=== PATIENT | male | born 1965 | race African-American/Black ===

== ENCOUNTER 2016-11-05 12:57 | Inpatient (IN) | payer BC ==
[~2016-11-05] VITALS: Ht 177.8 cm; Wt 64.0 kg
[~2016-11-05 12:57] MED LIST: CHLO.12%30 SSP; CLIN150 PO
[2016-11-05 13:02] VITALS: BP 114/76; PULSE 134; RESP 24; TEMP 100; O2SAT 98
[2016-11-05] MEDS ORDERED: LAMI150 PO (13:32)
[2016-11-05] MEDS ORDERED: ZIAG300T3 PO (13:32)
[2016-11-05] MEDS ORDERED: [UNRECOGNIZED DRUG - CODE] PO (13:32)
[2016-11-05] MEDS ORDERED: SODIUM CHLOR 0.9% 1000 ML INJ 1,000 ML IV ONE ×2 (13:54)
[2016-11-05] MEDS ORDERED: SODIUM CHLOR 0.9% 1000 ML INJ 100 ML IV ONE (13:54)
[2016-11-05] MEDS ORDERED: VANCOMYCIN INJ 1,050 MG in SODIUM CHLOR 0.9% 250 ML INJ 250 ML IV ONE (14:00)
[2016-11-05] MEDS ORDERED: PIPERACIL-TAZO 3.375 GM PREMIX 50 ML IV ONE (14:00)
--- NOTE | 2016-11-05 14:47 | PD ---
HPI Chief Complaint: Abdominal Pain Time Seen by Provider: 13:50 Travel History International Travel<30 days: No Contact w/Intl Traveler<30days: No Traveled to known affect area: No History of Present Illness HPI This is a 50-year-old male who presents to the emergency department with a history of HIV who reports severe pain in his buttock area that's been going on for several weeks, constant, worsening, associated with some fevers and chills. He denies any abdominal pain. He says he takes his HIV medication sometimes but hasn't taken them recently. PFS Past Medical History Immune Disorder: Yes (HIV ) Past Surgical History Surgical History: No Previous Surgery Social History Alcohol Use: No Tobacco Use: No Substance Use: No Allergies-Medications (Allergen,Severity, Reaction): Coded Allergies: No Known Allergies (Unverified , 11/05/16) Reported Meds & Prescriptions Reported Meds & Active Scripts Active Reported Kaletra (Lopinavir-Ritonavir) 100-25 Mg Tab 1 Tab PO BID Epivir (Lamivudine) 150 Mg Tab 150 Mg PO BID *Fill this 5 day prescription first and begin taking Epivir 12 hours after the first dose received in the Emergency Department as prescribed.* Ziagen (Abacavir Sulfate) 300 Mg Tab 300 Mg PO BID Hazardous agent; use appropriate precautions for handling & disposal. Review of Systems Except as stated in HPI: all other systems reviewed are Neg Physical Exam Narrative GENERAL:Well appearing, no acute distress HEAD: Atraumatic. Normocephalic. EYES: Pupils equal and round. No injection or drainage. ENT: Moist mucous membranes NECK: Trachea midline. CARDIOVASCULAR: Regular rate and rhythm. No murmur appreciated. RESPIRATORY: Clear to auscultation. Breath sounds equal bilaterally. GASTROINTESTINAL: Abdomen soft, non-tender, nondistended. Perirectal area and buttock area covered in wounds with skin breakdown and foul-smelling purulent discharge. No focal tenderness or fluctuance with digital rectal exam. MUSCULOSKELETAL: No obvious deformities. NEUROLOGICAL: Awake and alert. No obvious cranial nerve deficits. Moving all extremities. PSYCHIATRIC: Appropriate mood and affect; insight and judgment normal. Data Data Last Documented VS Vital Signs Date Time Temp Pulse Resp B/P Pulse Ox O2 Delivery O2 Flow Rate FiO2 11/05/16 15:13 100.6 91 15 133/78 99 Room Air Orders Complete Blood Count With Diff (11/05/16 13:54) Comprehensive Metabolic Panel (11/05/16 13:54) Prothrombin Time / Inr (Pt) (11/05/16 13:54) Act Partial Throm Time (Ptt) (11/05/16 13:54) Lactic Acid Sepsis Protocol (11/05/16 13:54) Urinalysis - C+S If Indicated (11/05/16 13:54) Blood Culture (11/05/16 13:54) Blood Glucose (11/05/16 13:54) Ecg Monitoring (11/05/16 13:54) Iv Access Insert/Monitor (11/05/16 13:54) Oximetry (11/05/16 13:54) Oxygen Administration (11/05/16 13:54) Sodium Chlor 0.9% 1000 Ml Inj (Ns 1000 M (11/05/16 13:54) Sodium Chlor 0.9% 1000 Ml Inj (Ns 1000 M (11/05/16 13:54) Sodium Chlor 0.9% 1000 Ml Inj (Ns 1000 M (11/05/16 13:54) Vancomycin Inj (Vancomycin Inj) (11/05/16 14:00) Piperacil-Tazo 3.375 Gm Premix (Zosyn 3. (11/05/16 14:00) Acetaminophen (Tylenol) (11/05/16 15:45) Abacavir (Ziagen) (11/05/16 21:00) Lamivudine (Epivir) (11/05/16 21:00) Lopinavir-Ritonavir 200-50 Mg (Kaletra 2 (11/05/16 21:00) Admit Order (Ed Use Only) (11/05/16 15:55) Labs Laboratory Tests Test 11/05/16 14:20 White Blood Count 7.4 TH/MM3 Red Blood Count 3.08 MIL/MM3 Hemoglobin 8.8 GM/DL Hematocrit 26.4 % Mean Corpuscular Volume 85.7 FL Mean Corpuscular Hemoglobin 28.6 PG Mean Corpuscular Hemoglobin 33.4 % Concent Red Cell Distribution Width 14.6 % Platelet Count 283 TH/MM3 Mean Platelet Volume 7.7 FL Neutrophils (%) (Auto) 88.0 % Lymphocytes (%) (Auto) 1.7 % Monocytes (%) (Auto) 10.1 % Eosinophils (%) (Auto) 0.1 % Basophils (%) (Auto) 0.1 % Neutrophils # (Auto) 6.5 TH/MM3 Lymphocytes # (Auto) 0.1 TH/MM3 Monocytes # (Auto) 0.7 TH/MM3 Eosinophils # (Auto) 0.0 TH/MM3 Basophils # (Auto) 0.0 TH/MM3 CBC Comment AUTO DIFF Differential Total Cells 100 Counted Neutrophils % (Manual) 88 % Band Neutrophils % 4 % Monocytes % 7 % Eosinophils % 1 % Neutrophils # (Manual) 6.8 TH/MM3 Differential Comment FINAL DIFF MANUAL Platelet Estimate NORMAL Platelet Morphology Comment NORMAL Prothrombin Time 11.1 SEC Prothromb Time International 1.0 RATIO Ratio Activated Partial 32.0 SEC Thromboplast Time Sodium Level 134 MEQ/L Potassium Level 5.1 MEQ/L Chloride Level 100 MEQ/L Carbon Dioxide Level 21.9 MEQ/L Anion Gap 12 MEQ/L Blood Urea Nitrogen 64 MG/DL Creatinine 7.83 MG/DL Estimat Glomerular Filtration 9 ML/MIN Rate Random Glucose 118 MG/DL Lactic Acid Level 0.8 mmol/L Calcium Level 9.2 MG/DL Total Bilirubin 0.4 MG/DL Aspartate Amino Transf 26 U/L (AST/SGOT) Alanine Aminotransferase 20 U/L (ALT/SGPT) Alkaline Phosphatase 63 U/L Total Protein 7.9 GM/DL Albumin 2.8 GM/DL [facility] Medical Decision Making Medical Screen Exam Complete: Yes Emergency Medical Condition: Yes Interpretation(s) Febrile to 100.6 and tachycardic Anemic 88% neutrophils Renal insufficiency Lactic acid is 0.8 Differential Diagnosis Wound infection, cellulitis, sepsis, electrolyte abnormality, dehydration Narrative Course This is a 50-year-old male who presents to the emergency department with pain around his rectum and buttock area. He has impressive wounds on his buttocks and perirectal area with purulent malodorous discharge. I don't appreciate anything fluctuant, indurated or drainable. He was febrile on arrival and tachycardic. He was placed on a monitor and an IV was established. He was given 2 L of IV fluid. Labs are reassuring. He was covered with vancomycin and Zosyn for sepsis. His creatinine was found to be 7.8. His potassium is normal at 5.1. He will be admitted in the setting of sepsis and renal insufficiency. Physician Communication Physician Communication Discussed with Dr. Draper Diagnosis Primary Impression: Renal failure Qualified Code: N17.9 - Acute renal failure superimposed on chronic kidney disease, unspecified CKD stage, unspecified acute renal failure type Additional Impression: Sepsis Qualified Code: A41.9 - Sepsis, due to unspecified organism Admitting Information Admitting Physician Requests: it Sandra Jones MD Nov 05, 2016 14:47
[2016-11-05 15:01] LABS: AUTOMATED NEUTROPHIL # 6.5 TH/MM3 (1.8-7.7); BASOPHIL % 0.1 % (0.0-2.0); EOSINOPHIL % 0.1 % (0.0-4.0); HEMATOCRIT 26.4 % (39.0-51.0); LYMPH % 1.7 % (9.0-44.0); LYMPHOCYTE # 0.1 TH/MM3 (1.0-4.8); MEAN CELL VOLUME 85.7 FL (80.0-100.0); MEAN CORPUSCULAR HEMOGLOBIN 28.6 PG (27.0-34.0); MEAN CORPUSCULAR HGB CONC 33.4 % (32.0-36.0); MONO % 10.1 % (0.0-8.0); PLATELET COUNT 283 TH/MM3 (150-450); RED BLOOD COUNT 3.08 MIL/MM3 (4.50-5.90); RED CELL DISTRIBUTION WIDTH 14.6 % (11.6-17.2); WHITE BLOOD COUNT 7.4 TH/MM3 (4.0-11.0)
[2016-11-05 15:02] LABS: HEMO FLAGS AUTO DIFF
[2016-11-05 15:11] LABS: PROTHROMBIN TIME - PATIENT 11.1 SEC (9.8-11.6)
[2016-11-05 15:13] VITALS: BP 133/78; PULSE 91; RESP 15; TEMP 100.6; O2SAT 99
[2016-11-05 15:24] LABS: ALT (GPT) 20 U/L (12-78); ANION GAP 12 MEQ/L (5-15); AST (GOT) 26 U/L (15-37); BICARBONATE 21.9 MEQ/L (21.0-32.0); BLOOD UREA NITROGEN 64 MG/DL (7-18); CHLORIDE 100 MEQ/L (98-107); GLOMERULAR FILTRATION RATE 9 ML/MIN (>89); POTASSIUM 5.1 MEQ/L (3.5-5.1); SODIUM (NA) 134 MEQ/L (136-145)
[2016-11-05 15:25] LABS: ALKALINE PHOSPHATASE 63 U/L (45-117); TOTAL BILIRUBIN ADULT 0.4 MG/DL (0.2-1.0)
[2016-11-05 15:33] LABS: BANDS 4 % (0-6); EOSINOPHILS 1 % (0-4); NEUTROPHIL # MANUAL DIFF 6.8 TH/MM3 (1.8-7.7); PLATELET ESTIMATE SMEAR NORMAL (NORMAL); PLATELET MORPHOLOGY NORMAL (NORMAL); POLYS (SEG NEUTROPHILS) 88 % (16-70); SCAN/DIFF FINAL DIFF MANUAL; WBC DIFF SAMPLE 100
[2016-11-05] MEDS ORDERED: ACETAMINOPHEN 500 MG CPLT PO ONE (15:45)
[2016-11-05] MEDS ORDERED: SENNOSIDES 8.6 MG TAB PO PRN (16:15)
[2016-11-05] MEDS ORDERED: NALOXONE HCL 0.4 MG/ML AMP IV PRN (16:15)
[2016-11-05] MEDS ORDERED: MAGNESIUM HYDROXIDE SUSP 30 ML CUP PO PRN (16:15)
[2016-11-05] MEDS ORDERED: BISACODYL 10 MG SUPP RECTAL PRN (16:15)
[2016-11-05] MEDS ORDERED: ACETAMINOPHEN/HYDROcodone 325 MG/7.5 MG TAB PO PRN (16:15)
[2016-11-05] MEDS ORDERED: LACTULOSE SYRUP 20 GM/30 ML CUP PO PRN (16:15)
[2016-11-05] MEDS ORDERED: SODIUM CHLORIDE 0.9% FLUSH 10 ML FLUSH IV FLUSH PRN (16:15)
[2016-11-05] MEDS ORDERED: Vancomycin Consult Pharmacy 1 EA OTHER SCH (16:15)
--- NOTE | 2016-11-05 16:54 | HHI.HP ---
HPI Service [facility] Hospitalists Primary Care Physician Quan Valencia MD Admission Diagnosis sepsis, renal failure Diagnoses: Chief Complaint: Chills N/V Buttock wounds Travel History International Travel<30 Days: No Contact w/Intl Traveler <30 Da: No Traveled to Known Affected Are: No Sepsis Criteria SIRS Criteria (2 or more): Heart rate over 90, RR > 20 or PaCO2 < 32 Sepsis Criteria (SIRS+source): Infect source susp/known Severe Sepsis (+one): Organ Dysfunction Criteria Outcome: Meets severe sepsis criteria History of Present Illness This is a 50yo male with PMHX of HIV who follows with Dr. Samuels as outpatient last seen 6 months ago who admits to being noncompliant with his HIV medications for the past 2 months and presents to [facility] ED with complaints of severe buttock pain secondary to multiple buttocks and perirectal wounds for the past two months. Patient denies seeking any previous treatment. Patient is not the best historian. He denies any worsening of the wounds. When asked why he chose to come in today, patient states he was "just tired of it". He admits to decreased oral intake. He also reports low back pain yesterday that he thought might be attributable to another kidney stone. He denies any back pain presently. He endorses nausea with nonbilious, nonbloody emesis for the past 2-3 days. He denies any fevers but reports one episode of chills. He denies any chest pain or SOB. He denies any previous history of kidney problems. He denies any hematuria, dysuria, hesitancy, slow stream or incomplete emptying. He reports urinating 3 to 4 x during the day and the same at night. In the ED, he has a temp of 100.6. White count is normal. Lactic acid is 0.8. His creatinine is extremely elevated at 7.83. Review of Systems Except as stated in HPI: all other systems reviewed are Neg Past Family Social History Past Medical History HIV, noncompliant with medications for the past 2 months Kidney stones Past Surgical History Patient denies any previous surgical history Reported Medications Kaletra (Lopinavir-Ritonavir) 100-25 Mg Tab 1 Tab PO BID Epivir (Lamivudine) 150 Mg Tab 150 Mg PO BID *Fill this 5 day prescription first and begin taking Epivir 12 hours after the first dose received in the Emergency Department as prescribed.* Ziagen (Abacavir Sulfate) 300 Mg Tab 300 Mg PO BID Hazardous agent; use appropriate precautions for handling & disposal. BUT PATIENT REPORTS HE HAS NOT BEEN TAKING FOR PAST 2 MONTHS Allergies: Coded Allergies: No Known Allergies (Unverified , 11/05/16) Active Ordered Medications Current Medications Medications (Trade) Dose Ordered Sig/Nyla Route Start Time Stop Time Status Last Admin Pharmacy Profile Note 0 ml @ 0 mls/hr UNSCH OTHER 11/05/16 16:15 UNV Piperacillin Sod/ Tazobactam Sod 50 ml @ 100 mls/hr Q8H IV 11/05/16 16:15 UNV (NS 1000 ml Inj) 1,000 ml @ 125 mls/hr Q8H IV 11/05/16 16:02 UNV (NS Flush) 2 ml UNSCH PRN IV FLUSH 11/05/16 16:15 UNV (NS Flush) 2 ml BID IV FLUSH 11/05/16 21:00 UNV (Tylenol) 650 mg Q4H PRN PO 11/05/16 16:15 UNV (Zofran Inj) 4 mg Q6H PRN IVP 11/05/16 16:15 UNV (Heparin Inj) 5,000 units Q12H SQ 11/05/16 16:15 UNV (Narcan Inj) 0.4 mg UNSCH PRN IV 11/05/16 16:15 UNV (Dee-Colace) 1 tab BID PO 11/05/16 21:00 UNV (Milk Of Magnesia Liq) 30 ml Q12H PRN PO 11/05/16 16:15 UNV (Senokot) 17.2 mg Q12H PRN PO 11/05/16 16:15 UNV (Dulcolax Supp) 10 mg DAILY PRN RECTAL 11/05/16 16:15 UNV (Lactulose Liq) 30 ml DAILY PRN PO 11/05/16 16:15 UNV (Endeavor 7.5-325 Mg) 1 tab Q4H PRN PO 11/05/16 16:15 UNV Family History Mother, CKD, DM Social History Patient denies any tobacco use, alcohol consumption or illicit drug use. Physical Exam Vital Signs Vital Signs Date Time Temp Pulse Resp B/P Pulse Ox O2 Delivery O2 Flow Rate FiO2 11/05/16 15:13 100.6 91 15 133/78 99 Room Air 11/05/16 15:13 99 Room Air 11/05/16 13:02 100.0 134 24 114/76 98 Room Air Physical Exam GENERAL: This is a well-nourished, well-developed patient, in no apparent distress. Awake and alert. SKIN: (+)multiple shallow areas of skin breakdown on the buttocks and dee- rectal area with foul smelling purulent discharge. No fluctuance noted on examination. HEAD: Atraumatic. Normocephalic. No temporal or scalp tenderness. EYES: Pupils equal round and reactive. Extraocular motions intact. No scleral icterus. No injection or drainage. ENT: Nose without bleeding, purulent drainage. (+)Oral thrush. Airway patent. NECK: Trachea midline. No JVD or lymphadenopathy. Supple, nontender, no meningeal signs. CARDIOVASCULAR: Regular rate and rhythm without murmurs, gallops, or rubs. RESPIRATORY: Clear to auscultation. Breath sounds equal bilaterally. No wheezes , rales, or rhonchi. GASTROINTESTINAL: Abdomen soft, non-tender, nondistended. No hepato-splenomegaly , or palpable masses. No guarding. (+)CVAT MUSCULOSKELETAL: Extremities without clubbing, cyanosis, or edema. No joint tenderness, effusion, or edema noted. No calf tenderness. NEUROLOGICAL: Awake and alert. Able to move all extremities. No focal neurologic finding appreciated. Normal speech. Laboratory Laboratory Tests Test 11/05/16 14:20 White Blood Count 7.4 Red Blood Count 3.08 Hemoglobin 8.8 Hematocrit 26.4 Mean Corpuscular Volume 85.7 Mean Corpuscular Hemoglobin 28.6 Mean Corpuscular Hemoglobin 33.4 Concent Red Cell Distribution Width 14.6 Platelet Count 283 Mean Platelet Volume 7.7 Neutrophils (%) (Auto) 88.0 Lymphocytes (%) (Auto) 1.7 Monocytes (%) (Auto) 10.1 Eosinophils (%) (Auto) 0.1 Basophils (%) (Auto) 0.1 Neutrophils # (Auto) 6.5 Lymphocytes # (Auto) 0.1 Monocytes # (Auto) 0.7 Eosinophils # (Auto) 0.0 Basophils # (Auto) 0.0 CBC Comment AUTO DIFF Differential Total Cells 100 Counted Neutrophils % (Manual) 88 Band Neutrophils % 4 Monocytes % 7 Eosinophils % 1 Neutrophils # (Manual) 6.8 Differential Comment FINAL DIFF MANUAL Platelet Estimate NORMAL Platelet Morphology Comment NORMAL Prothrombin Time 11.1 Prothromb Time International 1.0 Ratio Activated Partial 32.0 Thromboplast Time Sodium Level 134 Potassium Level 5.1 Chloride Level 100 Carbon Dioxide Level 21.9 Anion Gap 12 Blood Urea Nitrogen 64 Creatinine 7.83 Estimat Glomerular Filtration 9 Rate Random Glucose 118 Lactic Acid Level 0.8 Calcium Level 9.2 Total Bilirubin 0.4 Aspartate Amino Transf 26 (AST/SGOT) Alanine Aminotransferase 20 (ALT/SGPT) Alkaline Phosphatase 63 Total Protein 7.9 Albumin 2.8 Date/Time Procedure Status Source Growth 11/05/16 14:22 Aerobic Blood Culture Received Blood Peripheral Pending 11/05/16 14:22 Anaerobic Blood Culture Received Blood Peripheral Pending Result Diagram: 11/05/16 1420 11/05/16 1420 Assessment and Plan Assessment and Plan 50yo male with PMHX of HIV who follows with Dr. Samuels as outpatient last seen 6 months ago who admits to being noncompliant with his HIV medications for the past 2 months and presents to [facility] ED with complaints of severe buttock pain secondary to multiple buttock and perirectal wounds for the past two months. Severe sepsis secondary to buttock and perirectal wounds: Patient met sepsis criteria with tachycardia HR 134, respiration of 24 and acute kidney failure with creatinine of 7.83. + Immunocompromised, h/o HIV previously on HAART but noncompliant for the past two months IV Vancomycin and IV Zosyn IVF follow up on wound cultures follow up on blood culture results ARF creatinine 7.83, BUN 64 possibly pre-renal due to dehydration/hypovolemia vs obstructive h/o kidney stones with complaints of N/V and back pain - obtain CT abd/pelvis r/ o obstructive nephrolithiasis aggressive IV fluids avoid nephrotoxic agents Strict I&Os repeat BMP in am obtain UA Renal US ordered Consider nephrology consultation if patient fails to improve Buttock and dee-rectal wounds IV treatment as above Consult wound care Await wound culture results pain management obtain HgbA1c HIV patient admits to being noncompliant with his meds for the past 2 mos. Will not resume at this time. obtain CD4 count patient will need to follow up dimitri ID as outpatient Oral candidiasis Nystatin s/s Anemia, normocytic, normochromic hemoglobin 8.8, hematocrit 26.4 likely due to kidney dz am labs to monitor DVT prophylaxis Heparin sq Discussed with patient and Dr. Draper The exam, history, and the medical decision-making described in the above note were completed with the assistance of the mid-level provider. I reviewed and agree with the findings presented. I attest that I had a [id number] encounter with the patient on the same day, and personally performed and documented my assessment and findings in the medical record. Discussed with PA, ER physician and Patient. Discussed Condition With Patient, PA and ER Physician. Physician Certification 2 Midnight Certification Type: Admission for Inpatient Services Order for Inpatient Services The services are ordered in accordance with Medicare regulations or non- Medicare payer requirements, as applicable. In the case of services not specified as inpatient-only, they are appropriately provided as inpatient services in accordance with the 2-midnight benchmark. Estimated LOS (days): 3 3 days is the estimated time the patient will need to remain in the hospital, assuming treatment plan goals are met and no additional complications. Post-Hospital Plan: Not yet determined Zaria Neely Nov 05, 2016 16:54 Ze Chan MD Nov 05, 2016 17:23
[2016-11-05 17:07] LABS: BACTERIA, URINE MANY /hpf; BLOOD, URINE MOD (NEG); GLUCOSE,URINE NEG (NEG); KETONE, URINE NEG (NEG); MUCUS URINE FEW /lpf (OCC); NITRITE,URINE NEG (NEG); SQUAMOUS EPITHELIAL CELL URINE 1 /hpf (0-5); URINE COLOR YELLOW (YELLW/STRAW)
[2016-11-05 17:08] LABS: COMMENT (UR) CATH-CULTURE IND; CULTURE IF INDICATED CATH CULTURE IND
--- NOTE | 2016-11-05 17:21 | RADRPT ---
EXAM DATE/TIME: 11/05/2016 17:07 [facility] COMPARISON: No previous studies available for comparison. INDICATIONS : Patient states abcess on lower back, complains of pain. MEDICAL HISTORY : Renal failure, chronic. SURGICAL HISTORY : None. ENCOUNTER: Initial ACUITY: 2 weeks PAIN SCORE: 10/10 LOCATION: Bilateral chest FINDINGS: PA and lateral views of the chest. There is patchy opacity in the upper lung on the lateral view. 11 mm nodular density in the left lower lung laterally. Cardiomediastinal silhouette within normal limit s. No evidence of pleural effusion or pneumothorax. CONCLUSION: 1. Patchy consolidation versus atelectasis in the upper lung zone on the lateral view. 2. 1 cm nodular density in the left lower lung zone on the PA view only. Recommend noncontrast chest CT to evaluate for pulmonary nodule. Dorian Murry MD on November 05, 2016 at 17:17 Board Certified Radiologist. This report was verified electronically.
[2016-11-05] MEDS: HEPARIN SODIUM - SQ 10,000 UNITS/ML VIAL SQ SCH (17:31)
--- NOTE | 2016-11-05 17:40 | RADRPT ---
EXAM DATE/TIME: 11/05/2016 17:19 [facility] COMPARISON: No previous studies available for comparison. INDICATIONS : Abdominal pain for one month. ORAL CONTRAST: No oral contrast ingested. RADIATION DOSE: 5.05 CTDIvol (mGy) MEDICAL HISTORY : HIV. Renal failure, chronic. SURGICAL HISTORY : None. ENCOUNTER: Initial ACUITY: 1 month PAIN SCALE: 7/10 LOCATION: Bilateral abdomen. TECHNIQUE: Volumetric scanning of the abdomen and pelvis was performed. Using automated exposure control and ad justment of the mA and/or kV according to patient size, radiation dose was kept as low as reasonably achievable to obtain optimal diagnostic quality images. DICOM format image data is available electro nically for review and comparison. FINDINGS: LOWER LUNGS: Atelectasis right lung base. LIVER: 3.7 cm irregularly shaped hypodensity in the right lobe of the liver near the dome of the diaphragm. Liver is otherwise homogeneous and within normal limits. Gallbladder is within normal limits. SPLEEN: Normal size without lesion. PANCREAS: Within normal limits. KIDNEYS: 4 mm calculus in the right renal pelvis. Mild stranding in the fat adjacent to the right renal pelvis and mid right kidney. No evidence of hydronephrosis. 1.2 cm round hypodensity in the anterior midpol e of the right kidney.Left kidney within normal limits. ADRENAL GLANDS: Within normal limits. VASCULAR: Mildly dilated right common iliac artery measuring 1.6 cm. BOWEL/MESENTERY: No evidence of bowel dilatation. No free air or free fluid. Appendix within normal limits. ABDOMINAL WALL: Within normal limits. RETROPERITONEUM: There is no lymphadenopathy. BLADDER: No wall thickening or mass. REPRODUCTIVE: Within normal limits. INGUINAL: There is no lymphadenopathy or hernia. MUSCULOSKELETAL: Within normal limits for patient age. CONCLUSION: 1. 4 mm calculus in the right renal pelvis/ureteropelvic junction with mild adjacent perinephric/peter ureteral stranding. No evidence of hydronephrosis. 2. 1 cm round hypodensity in the anterior right mid kidney statistically most likely to represent a c yst. 3. 3.7 cm hypodensity in the right lobe of the liver air the dome of the diaphragm. This finding is n onspecific on noncontrast CT. The most likely etiologies include hemangioma and cyst. It could be fur ther evaluated with ultrasound nonemergent followup MRI of the abdomen. 4. Mild dilated proximal right common iliac artery. Dorian Murry MD on November 05, 2016 at 17:29 Board Certified Radiologist. This report was verified electronically.
[2016-11-05 18:00] VITALS: BP 143/77; PULSE 79; RESP 18; TEMP 98.4; O2SAT 100
[2016-11-05] MEDS: NYSTATIN SUSP 500,000 U/5 ML CUP SWISH-SWAL SCH ×2 (18:37→20:05)
[2016-11-05] MEDS: SODIUM CHLOR 0.9% 1000 ML INJ 1,000 ML IV SCH (18:37)
--- NOTE | 2016-11-05 19:59 | RADRPT ---
EXAM DATE/TIME: 11/05/2016 19:17 [facility] COMPARISON: No previous studies available for comparison. INDICATIONS : Increased BUN/Creatinine. MEDICAL HISTORY : HIV. Wounds on buttocks. SURGICAL HISTORY : None. ENCOUNTER: Initial ACUITY: 1 day PAIN SCORE: 7/10 LOCATION: Bilateral flank MEASUREMENTS: RIGHT KIDNEY: 10.2 x 6.3 x 5.9 cm LEFT KIDNEY: 9.6 x 6.2 x 5.7 cm FINDINGS: RIGHT KIDNEY: Diffusely echogenic cortex indicating medical renal disease. 1.2 cm simple cyst in the midpole. No ev idence of hydronephrosis. LEFT KIDNEY: Diffusely echogenic cortex indicating medical renal disease. No evidence of hydronephrosis. BLADDER: Within normal limits given the degree of distension. CONCLUSION: Diffusely echogenic kidneys indicating medical renal disease. Dorian Murry MD on November 05, 2016 at 19:57 Board Certified Radiologist. This report was verified electronically.
[2016-11-05 20:00] VITALS: BP 134/82; PULSE 72; PULSE 78; RESP 16; TEMP 97.9; O2SAT 100
[2016-11-05] MEDS: SODIUM CHLORIDE 0.9% FLUSH 10 ML FLUSH IV FLUSH SCH (20:05)
[2016-11-05] MEDS: DOCUSATE SODIUM 50 MG/SENNA 8.6 MG TAB PO SCH (20:05)
[2016-11-05 20:16] LABS: FREE T4 1.39 NG/DL (0.76-1.46); HDL CHOLESTEROL 37.4 MG/DL (40.0-60.0)
[2016-11-05] MEDS ORDERED: LOPINAVIR/RITONAVIR 200 MG/50 MG TAB PO SCH (21:00)
[2016-11-05] MEDS ORDERED: ABACAVIR SULFATE 300 MG TAB PO SCH (21:00)
[2016-11-05] MEDS: PIPERACIL-TAZO 2.25 GM PREMIX 50 ML IV SCH (23:11)
[2016-11-06] VITALS (8 sets, daily range): BP systolic 122–138; BP diastolic 67–88; PULSE 71–105; RESP 16–18; TEMP 98.2–100.2; O2SAT 99–100
[2016-11-06] MEDS: SODIUM CHLOR 0.9% 1000 ML INJ 1,000 ML IV SCH ×3 (01:54→21:37)
[2016-11-06] MEDS: HEPARIN SODIUM - SQ 10,000 UNITS/ML VIAL SQ SCH ×2 (05:13→16:42)
[2016-11-06] MEDS: DOCUSATE SODIUM 50 MG/SENNA 8.6 MG TAB PO SCH ×2 (09:00→21:00)
[2016-11-06] MEDS: SODIUM CHLORIDE 0.9% FLUSH 10 ML FLUSH IV FLUSH SCH ×2 (09:00→21:36)
[2016-11-06] MEDS: NYSTATIN SUSP 500,000 U/5 ML CUP SWISH-SWAL SCH ×5 (09:08→21:36)
[2016-11-06] MEDS: PIPERACIL-TAZO 2.25 GM PREMIX 50 ML IV SCH ×3 (09:10→21:36)
[2016-11-06 09:52] LABS: AUTOMATED NEUTROPHIL # 4.8 TH/MM3 (1.8-7.7); BASOPHIL % 0.6 % (0.0-2.0); EOSINOPHIL % 0.3 % (0.0-4.0); HEMATOCRIT 22.3 % (39.0-51.0); LYMPH % 2.1 % (9.0-44.0); LYMPHOCYTE # 0.1 TH/MM3 (1.0-4.8); MEAN CELL VOLUME 85.3 FL (80.0-100.0); MEAN CORPUSCULAR HEMOGLOBIN 28.9 PG (27.0-34.0); MEAN CORPUSCULAR HGB CONC 33.9 % (32.0-36.0); MONO % 10.6 % (0.0-8.0); NEUT % 86.4 % (16.0-70.0); PLATELET COUNT 209 TH/MM3 (150-450); RED BLOOD COUNT 2.61 MIL/MM3 (4.50-5.90); RED CELL DISTRIBUTION WIDTH 14.6 % (11.6-17.2); WHITE BLOOD COUNT 5.5 TH/MM3 (4.0-11.0)
[2016-11-06 10:13] LABS: HEMOGLOBIN A1a 1.5 %; HEMOGLOBIN Ao 81.4 %; HEMOGLOBIN F 1.5 %; HEMOGLOBIN LA1C 2.4 %
[2016-11-06 10:13] LABS: ALT (GPT) 13 U/L (12-78); ANION GAP 10 MEQ/L (5-15); AST (GOT) 23 U/L (15-37); BICARBONATE 17.9 MEQ/L (21.0-32.0); BLOOD UREA NITROGEN 58 MG/DL (7-18); CHLORIDE 109 MEQ/L (98-107); GLOMERULAR FILTRATION RATE 10 ML/MIN (>89); HEMO FLAGS AUTO DIFF; POTASSIUM 4.8 MEQ/L (3.5-5.1); SODIUM (NA) 137 MEQ/L (136-145)
[2016-11-06 10:14] LABS: ALKALINE PHOSPHATASE 46 U/L (45-117); TOTAL BILIRUBIN ADULT 0.3 MG/DL (0.2-1.0)
[2016-11-06 10:42] LABS: BANDS 20 % (0-6); OVALOCYTES 1+ (NORMAL); PLATELET ESTIMATE SMEAR NORMAL (NORMAL); PLATELET MORPHOLOGY NORMAL (NORMAL); POLYS (SEG NEUTROPHILS) 70 % (16-70); SCAN/DIFF FINAL DIFF MANUAL; WBC DIFF SAMPLE 100
--- NOTE | 2016-11-06 12:28 | HHI.PR ---
Subjective Remarks This is a 50yo male with PMHX of HIV who follows with Dr. Samuels as outpatient last seen 6 months ago who admits to being noncompliant with his HIV medications for the past 2 months and presents to [facility] ED with complaints of severe buttock pain secondary to multiple buttocks and perirectal wounds for the past two months. Patient denies seeking any previous treatment. Patient is not the best historian. He denies any worsening of the wounds. When asked why he chose to come in today, patient states he was "just tired of it". He admits to decreased oral intake. He also reports low back pain yesterday that he thought might be attributable to another kidney stone. He denies any back pain presently. He endorses nausea with nonbilious, nonbloody emesis for the past 2-3 days. He denies any fevers but reports one episode of chills. He denies any chest pain or SOB. He denies any previous history of kidney problems. He denies any hematuria, dysuria, hesitancy, slow stream or incomplete emptying. He reports urinating 3 to 4 x during the day and the same at night. In the ED, he has a temp of 100.6. White count is normal. Lactic acid is 0.8. His creatinine is extremely elevated at 7.83. 11/06: Seen in his bedroom, mild improvement in renal function consulted nephrology specialist, no nausea, vomit or diarrhea. Objective Vital Signs Date Time Temp Pulse Resp B/P Pulse Ox O2 Delivery O2 Flow Rate FiO2 11/06/16 12:00 98.6 83 18 122/67 100 11/06/16 08:15 77 11/06/16 08:00 99.1 82 18 137/83 100 11/06/16 07:15 Room Air 11/06/16 04:00 Room Air 11/06/16 04:00 99.7 98 18 134/80 99 11/06/16 00:00 98.2 71 16 137/88 100 11/06/16 00:00 Room Air 11/05/16 20:00 Room Air 11/05/16 20:00 78 11/05/16 20:00 97.9 72 16 134/82 100 11/05/16 18:00 98.4 79 18 143/77 100 11/05/16 15:13 100.6 91 15 133/78 99 Room Air 11/05/16 15:13 99 Room Air 11/05/16 13:02 100.0 134 24 114/76 98 Room Air I/O 11/05/16 11/05/16 11/05/16 11/06/16 11/06/16 11/06/16 07:00 15:00 23:00 07:00 15:00 23:00 Intake Total 3490 ml 1240 ml Output Total 400 ml 600 ml Balance 3090 ml 640 ml Intake Oral 240 ml 240 ml IV Total 3250 ml 1000 ml Output Urine Total 400 ml 600 ml # Bowel Movements 0 0 Result Diagram: 11/06/16 0730 11/06/16 0730 Imaging Last Impressions Renal Ultrasound 11/05/16 0000 Signed Impressions: Service Date/Time: Saturday, November 05, 2016 19:17 - CONCLUSION: Diffusely echogenic kidneys indicating medical renal disease. Dorian Murry MD Chest X-Ray 11/05/16 0000 Signed Impressions: Service Date/Time: Saturday, November 05, 2016 17:07 - CONCLUSION: 1. Patchy consolidation versus atelectasis in the upper lung zone on the lateral view. 2. 1 cm nodular density in the left lower lung zone on the PA view only. Recommend noncontrast chest CT to evaluate for pulmonary nodule. Dorian Murry MD Abdomen/Pelvis CT 11/05/16 0000 Signed Impressions: Service Date/Time: Saturday, November 05, 2016 17:19 - CONCLUSION: 1. 4 mm calculus in the right renal pelvis/ureteropelvic junction with mild adjacent perinephric/periureteral stranding. No evidence of hydronephrosis. 2. 1 cm round hypodensity in the anterior right mid kidney statistically most likely to represent a cyst. 3. 3.7 cm hypodensity in the right lobe of the liver air the dome of the diaphragm. This finding is nonspecific on noncontrast CT. The most likely etiologies include hemangioma and cyst. It could be further evaluated with ultrasound nonemergent followup MRI of the abdomen. 4. Mild dilated proximal right common iliac artery. Dorian Murry MD Procedures None Other Results Laboratory Tests Test 11/05/16 11/05/16 11/06/16 14:20 16:35 07:30 Eosinophils % 1 % Prothrombin Time 11.1 SEC Prothromb Time International 1.0 RATIO Ratio Activated Partial 32.0 SEC Thromboplast Time Lactic Acid Level 0.8 mmol/L Triglycerides Level 189 MG/DL Cholesterol Level 190 MG/DL LDL Cholesterol 115 MG/DL HDL Cholesterol 37.4 MG/DL Cholesterol/HDL Ratio 5.08 RATIO Free Thyroxine 1.39 NG/DL Thyroid Stimulating Hormone 0.931 uIU/ML 3rd Gen Hemoglobin A1c 6.2 % Urine Color YELLOW Urine Turbidity HAZY Urine pH 6.0 Urine Specific [place] 1.014 Urine Protein 300 mg/dL Urine Glucose (UA) NEG mg/dL Urine Ketones NEG mg/dL Urine Occult Blood MOD Urine Nitrite NEG Urine Bilirubin NEG Urine Urobilinogen LESS THAN 2.0 MG/DL Urine Leukocyte Esterase LARGE Urine RBC 14 /hpf Urine WBC /hpf Urine Squamous Epithelial 1 /hpf Cells Urine Amorphous Sediment RARE Urine Bacteria MANY /hpf Urine Mucus FEW /lpf Microscopic Urinalysis Comment CATH-CULTURE IND White Blood Count 5.5 TH/MM3 Red Blood Count 2.61 MIL/MM3 Hemoglobin 7.6 GM/DL Hematocrit 22.3 % Mean Corpuscular Volume 85.3 FL Mean Corpuscular Hemoglobin 28.9 PG Mean Corpuscular Hemoglobin 33.9 % Concent Red Cell Distribution Width 14.6 % Platelet Count 209 TH/MM3 Mean Platelet Volume 8.3 FL Neutrophils (%) (Auto) 86.4 % Lymphocytes (%) (Auto) 2.1 % Monocytes (%) (Auto) 10.6 % Eosinophils (%) (Auto) 0.3 % Basophils (%) (Auto) 0.6 % Neutrophils # (Auto) 4.8 TH/MM3 Lymphocytes # (Auto) 0.1 TH/MM3 Monocytes # (Auto) 0.6 TH/MM3 Eosinophils # (Auto) 0.0 TH/MM3 Basophils # (Auto) 0.0 TH/MM3 CBC Comment AUTO DIFF Differential Total Cells 100 Counted Neutrophils % (Manual) 70 % Band Neutrophils % 20 % Lymphocytes % 2 % Monocytes % 8 % Neutrophils # (Manual) 5.0 TH/MM3 Differential Comment FINAL DIFF MANUAL Platelet Estimate NORMAL Platelet Morphology Comment NORMAL Ovalocytes 1+ Sodium Level 137 MEQ/L Potassium Level 4.8 MEQ/L Chloride Level 109 MEQ/L Carbon Dioxide Level 17.9 MEQ/L Anion Gap 10 MEQ/L Blood Urea Nitrogen 58 MG/DL Creatinine 7.16 MG/DL Estimat Glomerular Filtration 10 ML/MIN Rate Random Glucose 87 MG/DL Calcium Level 8.1 MG/DL Total Bilirubin 0.3 MG/DL Aspartate Amino Transf 23 U/L (AST/SGOT) Alanine Aminotransferase 13 U/L (ALT/SGPT) Alkaline Phosphatase 46 U/L Total Protein 6.0 GM/DL Albumin 2.1 GM/DL Objective Remarks GENERAL: This is a well-nourished, well-developed patient, in no apparent distress. Awake and alert. SKIN: (+)multiple shallow areas of skin breakdown on the buttocks and dee- rectal area with foul smelling purulent discharge. No fluctuance noted on examination. HEAD: Atraumatic. Normocephalic. No temporal or scalp tenderness. EYES: Pupils equal round and reactive. Extraocular motions intact. No scleral icterus. No injection or drainage. ENT: Nose without bleeding, purulent drainage. (+)Oral thrush. Airway patent. NECK: Trachea midline. No JVD or lymphadenopathy. Supple, nontender, no meningeal signs. CARDIOVASCULAR: Regular rate and rhythm without murmurs, gallops, or rubs. RESPIRATORY: Clear to auscultation. Breath sounds equal bilaterally. No wheezes , rales, or rhonchi. GASTROINTESTINAL: Abdomen soft, non-tender, nondistended. No hepato-splenomegaly , or palpable masses. No guarding. (+)CVAT MUSCULOSKELETAL: Extremities without clubbing, cyanosis, or edema. No joint tenderness, effusion, or edema noted. No calf tenderness. NEUROLOGICAL: Awake and alert. Able to move all extremities. No focal neurologic finding appreciated. Normal speech. Medications and IVs Current Medications Medications (Trade) Dose Ordered Sig/Nyla Route Start Time Stop Time Status Last Admin Pharmacy Profile Note 0 ml @ 0 mls/hr UNSCH OTHER 11/05/16 16:15 Piperacillin Sod/ Tazobactam Sod 50 ml @ 100 mls/hr Q8H IV 11/06/16 00:00 11/06/16 09:10 (NS 1000 ml Inj) 1,000 ml @ 125 mls/hr Q8H IV 11/05/16 17:00 11/06/16 01:54 (NS Flush) 2 ml UNSCH PRN IV FLUSH 11/05/16 16:15 (NS Flush) 2 ml BID IV FLUSH 11/05/16 21:00 11/05/16 20:05 (Tylenol) 650 mg Q4H PRN PO 11/05/16 16:15 (Zofran Inj) 4 mg Q6H PRN IVP 11/05/16 16:15 (Heparin Inj) 5,000 units Q12H SQ 11/05/16 17:00 11/06/16 05:13 (Narcan Inj) 0.4 mg UNSCH PRN IV 11/05/16 16:15 (Dee-Colace) 1 tab BID PO 11/05/16 21:00 11/05/16 20:05 (Milk Of Magnesia Liq) 30 ml Q12H PRN PO 11/05/16 16:15 (Senokot) 17.2 mg Q12H PRN PO 11/05/16 16:15 (Dulcolax Supp) 10 mg DAILY PRN RECTAL 11/05/16 16:15 (Lactulose Liq) 30 ml DAILY PRN PO 11/05/16 16:15 (Steen 7.5-325 Mg) 1 tab Q4H PRN PO 11/05/16 16:15 (Mycostatin Liq) 5 ml QID SWISH-SWAL 11/05/16 18:00 11/06/16 09:08 A/P Assessment and Plan 50yo male with PMHX of HIV who follows with Dr. Samuels as outpatient last seen 6 months ago who admits to being noncompliant with his HIV medications for the past 2 months and presents to [facility] ED with complaints of severe buttock pain secondary to multiple buttock and perirectal wounds for the past two months. Severe sepsis secondary to buttock and perirectal wounds: Patient met sepsis criteria with tachycardia HR 134, respiration of 24 and acute kidney failure with creatinine of 7.83. + Immunocompromised, h/o HIV previously on HAART but noncompliant for the past two months IV Vancomycin and IV Zosyn Evidence of UTI on Urinalysis. blood culture and urine culture negative so far. ARF creatinine 7.83, Mild improvement to 7.16. he has history of Kidney stones. CT abd/pelvis r/o obstructive nephrolithiasis, continue IV fluids and avoid Nephrotoxic agents. Consulted Nephrology specialist, once stable Nephrology consider to get MRI or CT angiogram to evaluate the lesion in the right Kidney, Buttock and dee-rectal wounds IV treatment as above Consult wound care Await wound culture results pain management obtain HgbA1c HIV patient admits to being noncompliant with his meds for the past 2 mos. Will not resume at this time. obtain CD4 count patient will need to follow up with ID as outpatient Oral candidiasis Nystatin s/s Anemia, normocytic, normochromic hemoglobin 8.8, hematocrit 26.4 likely due to kidney dz am labs to monitor DVT prophylaxis Heparin sq Continue present care discussed with patient in the room. Discharge Planning Expected in the next two days. Ze Chan MD Nov 06, 2016 12:28 Ze Chan MD Nov 06, 2016 12:28
--- NOTE | 2016-11-06 15:24 | MB ---
cc: XIAO MELGOZA MD DATE OF CONSULTATION: 11/06/2016. REASON FOR CONSULTATION: High BUN and creatinine. HISTORY OF PRESENT ILLNESS: This is a 50-year-old male with past medical history of HIV disease for more than 20 years and history of renal stone who came to the hospital with complaint of back pain. The patient has back pain going on for the last 2 months off and on and he came to the emergency department yesterday with worsening pain. The pain is intermittent any of that he has kidney stone. He does not have any dysuria, hematuria and did not have any history of renal stone before. He denies any history of fever but when he came in here, he had a temperature of 100.6. The patient is noncompliant with his HIV medication, and according to him, the last time he was seen by his doctor was six months ago and at that time he had some blood tests done and he was told that there is some kidney dysfunction and it was not very bad according to the patient. We do not have a baseline creatinine available but when he came in here the creatinine was 7.8 which improved slightly and now it is 7.1. The patient denies taking any nonsteroidal anti-inflammatory drugs. He does not have any diarrhea but he has nausea and has vomited twice since yesterday. PAST MEDICAL HISTORY: 1. History of HIV disease. 2. History of kidney stone. 3. Possible chronic kidney disease. PAST SURGICAL HISTORY: None. REVIEW OF SYSTEMS: The patient has generalized weakness, feeling tired and denies any history of fever. No headache, dizziness or blurring of vision. No shortness of breath or chest pain. No palpitations. He has had this nausea and vomiting off and on going on for the last two to three days and then he vomited twice since yesterday. There is no history of diarrhea. He has back pain which is mainly in the lumbar area off and on going on and is not related to his posture. There is no history of dysuria, hematuria or difficulty passing urine. Denies taking any nonsteroidal anti-inflammatory drugs. SOCIAL HISTORY: The patient has no history of smoking or alcoholism. FAMILY HISTORY: His mother had history of end-stage renal disease and she was on dialysis before she . She also had a history of diabetes mellitus. ALLERGIES: NO KNOWN DRUG ALLERGIES. MEDICATIONS: Currently he is on: 1. Normal saline at 125 an hour. 2. Dee-Colace one tablet twice a day. 3. Zosyn 2.25 grams IV q. 8 hours. 4. Heparin subcutaneous 5000 units q. 12 hours. 5. Nystatin four times a day. 6. Zofran as needed. 7. [place] as needed. 8. as needed. PHYSICAL EXAMINATION: GENERAL: On examination, the patient is awake and alert and in no acute distress. VITAL SIGNS: His last blood pressure was 122/67, temperature is 98.6 with a T-max of 100.6. The blood pressure has been stable and there is no documented hypotensive episodes. HEAD, EYES, EARS, NOSE, THROAT: The pupils are mid-constricted. Nonicteric sclerae. Conjunctivae are pale. NECK: The neck is supple. JVD is not elevated. LUNGS: The patient has bilateral good air entry with occasional wheezing. HEART: S1 and S2 regular rhythm. ABDOMEN: Abdomen is distended, soft and lax. There is no definite tenderness. Bowel sounds positive. EXTREMITIES: There is no pedal edema. INVESTIGATIONS: White blood cell count is 5.5, hemoglobin 7.6, platelet count of 209,000. Neutrophils 86.4%. Sodium 137, potassium 4.8, chloride 109, bicarbonate 17.9, BUN 58, creatinine is 7.1, calcium is 8.1. AST and ALT are normal. Total protein is 6.0 with albumin of 2.1. Cholesterol 190 with LDL of 115, HDL of 37.4. TSH is 0.93. Urinalysis showing protein of 300. INR is 1.0. His RPR is pending. Blood cultures done so far showing no growth. Urine culture done and is also showing so far now growth. IMAGING STUDIES: The patient had a CT scan of the abdomen and pelvis done, which shows that he has a 4 mm calculus in the right pelvis, mild stranding in fat adjacent to the right kidney. No evidence of hydronephrosis. A 1.2 cm hypodensity in the anterior mid-pole of the right kidney. Mildly dilated proximal right common iliac artery. He also had an ultrasound of the kidneys done which shows both kidneys look normal in size and both are diffusely echogenic. Bladder within normal limits. Chest x-ray was done, which shows that he has patchy consolidation versus atelectasis. ASSESSMENT: 1. Acute kidney injury with possibility of chronic kidney disease. 2. Urinary tract infection. 3. Possible pneumonia. 4. History of kidney stones. 5. HIV disease. 6. Wound around the buttock and in the rectal area. 7. Anemia. 8. History of HIV disease. PLAN: 1. The patient has very high BUN and creatinine. I will get some serology. He has proteinuria. 2. Looking at the kidneys on the ultrasound, he possibly has some chronic kidney disease going on. 3. Will try to get previous labs from his primary physician if possible and I will also send a phosphorus level and a CPK level. 4. Continue the IV fluids to follow the urine output and the BUN and creatinine. 5. Avoid any nephrotoxins. 6. Once his creatinine is stable, will consider getting the MRI or CT angiogram for the lesion he has in the right kidney. Thank you for the consultation, and I will follow the patient while she is in the hospital. MD HANG Benton/LAM /2:00 PM /3:07 PM
[2016-11-07] VITALS (7 sets, daily range): BP systolic 143–166; BP diastolic 81–98; PULSE 84–104; RESP 16–18; TEMP 98.6–102.4; O2SAT 97–100
[2016-11-07] MEDS: SODIUM CHLOR 0.9% 1000 ML INJ 1,000 ML IV SCH ×2 (01:36→18:01)
[2016-11-07] MEDS: HEPARIN SODIUM - SQ 10,000 UNITS/ML VIAL SQ SCH ×2 (05:00→16:15)
[2016-11-07] MEDS: PIPERACIL-TAZO 2.25 GM PREMIX 50 ML IV SCH ×3 (08:47→23:58)
[2016-11-07] MEDS: SODIUM CHLORIDE 0.9% FLUSH 10 ML FLUSH IV FLUSH SCH ×2 (08:52→20:47)
[2016-11-07] MEDS: NYSTATIN SUSP 500,000 U/5 ML CUP SWISH-SWAL SCH ×4 (09:00→20:47)
[2016-11-07] MEDS: DOCUSATE SODIUM 50 MG/SENNA 8.6 MG TAB PO SCH ×2 (09:00→20:47)
[2016-11-07] MEDS ORDERED: VANCOMYCIN 1,000 MG/NS 250 ML IV ONE ×2 (12:00)
--- NOTE | 2016-11-07 12:52 | HHI.PR ---
Subjective Remarks This is a 50yo male with PMHX of HIV who follows with Dr. Samuels as outpatient last seen 6 months ago who admits to being noncompliant with his HIV medications for the past 2 months and presents to [facility] ED with complaints of severe buttock pain secondary to multiple buttocks and perirectal wounds for the past two months. Patient denies seeking any previous treatment. Patient is not the best historian. He denies any worsening of the wounds. When asked why he chose to come in today, patient states he was "just tired of it". He admits to decreased oral intake. He also reports low back pain yesterday that he thought might be attributable to another kidney stone. He denies any back pain presently. He endorses nausea with nonbilious, nonbloody emesis for the past 2-3 days. He denies any fevers but reports one episode of chills. He denies any chest pain or SOB. He denies any previous history of kidney problems. He denies any hematuria, dysuria, hesitancy, slow stream or incomplete emptying. He reports urinating 3 to 4 x during the day and the same at night. In the ED, he has a temp of 100.6. White count is normal. Lactic acid is 0.8. His creatinine is extremely elevated at 7.83. 11/07: Stable in his bedroom discussed with nurse Miss Nicholeh the patient is febrile and refusing Acetaminophen, consulted ID specialist and seen by Doctor Bozena Chambers she thinks the Fever is related to UTI, has stones, Ulcers in the buttock looked more Herpetic, asked for HSV and VZV serologies, continue Zosyn but removed the Vancomycin, continue wound care and will follow. No nausea, vomit or diarrhea. Objective Vital Signs Date Time Temp Pulse Resp B/P Pulse Ox O2 Delivery O2 Flow Rate FiO2 11/07/16 12:00 98.8 91 18 166/96 100 11/07/16 08:00 98.9 85 18 161/98 97 11/07/16 04:00 98.6 87 16 143/92 100 11/07/16 00:00 100.6 91 18 148/92 100 11/06/16 20:00 100.2 89 16 131/81 99 11/06/16 20:00 87 11/06/16 19:00 Room Air 11/06/16 17:23 93 11/06/16 16:00 99.2 105 18 138/73 99 I/O 11/06/16 11/06/16 11/06/16 11/07/16 11/07/16 11/07/16 06:59 14:59 22:59 06:59 14:59 22:59 Intake Total 1240 ml 1824 ml 480 ml 240 ml Output Total 600 ml 400 ml 400 ml 750 ml Balance 640 ml 1424 ml 80 ml -510 ml Intake Oral 240 ml 960 ml 480 ml 240 ml IV Total 1000 ml 864 ml Output Urine Total 600 ml 400 ml 400 ml 750 ml # Bowel Movements 0 0 0 0 Result Diagram: 11/06/1630 11/06/16 0730 Imaging Last Impressions Renal Ultrasound 11/05/16 0000 Signed Impressions: Service Date/Time: Saturday, November 05, 2016 19:17 - CONCLUSION: Diffusely echogenic kidneys indicating medical renal disease. Dorian Murry MD Chest X-Ray 11/05/16 0000 Signed Impressions: Service Date/Time: Saturday, November 05, 2016 17:07 - CONCLUSION: 1. Patchy consolidation versus atelectasis in the upper lung zone on the lateral view. 2. 1 cm nodular density in the left lower lung zone on the PA view only. Recommend noncontrast chest CT to evaluate for pulmonary nodule. Dorian Murry MD Abdomen/Pelvis CT 11/05/16 0000 Signed Impressions: Service Date/Time: Saturday, November 05, 2016 17:19 - CONCLUSION: 1. 4 mm calculus in the right renal pelvis/ureteropelvic junction with mild adjacent perinephric/periureteral stranding. No evidence of hydronephrosis. 2. 1 cm round hypodensity in the anterior right mid kidney statistically most likely to represent a cyst. 3. 3.7 cm hypodensity in the right lobe of the liver air the dome of the diaphragm. This finding is nonspecific on noncontrast CT. The most likely etiologies include hemangioma and cyst. It could be further evaluated with ultrasound nonemergent followup MRI of the abdomen. 4. Mild dilated proximal right common iliac artery. Dorian Murry MD Procedures None Other Results Laboratory Tests Test 11/05/16 11/05/16 11/06/1617 14:20 16:35 07:30 07:33 Eosinophils % 1 % Prothrombin Time 11.1 SEC Prothromb Time International 1.0 RATIO Ratio Activated Partial 32.0 SEC Thromboplast Time Lactic Acid Level 0.8 mmol/L Triglycerides Level 189 MG/DL Cholesterol Level 190 MG/DL LDL Cholesterol 115 MG/DL HDL Cholesterol 37.4 MG/DL Cholesterol/HDL Ratio 5.08 RATIO Free Thyroxine 1.39 NG/DL Thyroid Stimulating Hormone 0.931 uIU/ML 3rd Gen Hemoglobin A1c 6.2 % Urine Color YELLOW Urine Turbidity HAZY Urine pH 6.0 Urine Specific [place] 1.014 Urine Protein 300 mg/dL Urine Glucose (UA) NEG mg/dL Urine Ketones NEG mg/dL Urine Occult Blood MOD Urine Nitrite NEG Urine Bilirubin NEG Urine Urobilinogen LESS THAN 2.0 MG/DL Urine Leukocyte Esterase LARGE Urine RBC 14 /hpf Urine WBC /hpf Urine Squamous Epithelial 1 /hpf Cells Urine Amorphous Sediment RARE Urine Bacteria MANY /hpf Urine Mucus FEW /lpf Microscopic Urinalysis Comment CATH-CULTURE IND White Blood Count 5.5 TH/MM3 Red Blood Count 2.61 MIL/MM3 Hemoglobin 7.6 GM/DL Hematocrit 22.3 % Mean Corpuscular Volume 85.3 FL Mean Corpuscular Hemoglobin 28.9 PG Mean Corpuscular Hemoglobin 33.9 % Concent Red Cell Distribution Width 14.6 % Platelet Count 209 TH/MM3 Mean Platelet Volume 8.3 FL Neutrophils (%) (Auto) 86.4 % Lymphocytes (%) (Auto) 2.1 % Monocytes (%) (Auto) 10.6 % Eosinophils (%) (Auto) 0.3 % Basophils (%) (Auto) 0.6 % Neutrophils # (Auto) 4.8 TH/MM3 Lymphocytes # (Auto) 0.1 TH/MM3 Monocytes # (Auto) 0.6 TH/MM3 Eosinophils # (Auto) 0.0 TH/MM3 Basophils # (Auto) 0.0 TH/MM3 CBC Comment AUTO DIFF Differential Total Cells 100 Counted Neutrophils % (Manual) 70 % Band Neutrophils % 20 % Lymphocytes % 2 % Monocytes % 8 % Neutrophils # (Manual) 5.0 TH/MM3 Differential Comment FINAL DIFF MANUAL Platelet Estimate NORMAL Platelet Morphology Comment NORMAL Ovalocytes 1+ Sodium Level 137 MEQ/L Potassium Level 4.8 MEQ/L Chloride Level 109 MEQ/L Carbon Dioxide Level 17.9 MEQ/L Anion Gap 10 MEQ/L Blood Urea Nitrogen 58 MG/DL Creatinine 7.16 MG/DL Estimat Glomerular Filtration 10 ML/MIN Rate Random Glucose 87 MG/DL Calcium Level 8.1 MG/DL Total Bilirubin 0.3 MG/DL Aspartate Amino Transf 23 U/L (AST/SGOT) Alanine Aminotransferase 13 U/L (ALT/SGPT) Alkaline Phosphatase 46 U/L Total Protein 6.0 GM/DL Albumin 2.1 GM/DL Rapid Plasma Reagin NON-REACTIVE Complement C3 133 MG/DL Complement C4 34 MG/DL Test 11/07/16 08:33 Phosphorus Level 4.4 MG/DL Total Creatine Kinase 131 U/L Random Vancomycin Level 10.9 COMMENT Objective Remarks GENERAL: This is a well-nourished, well-developed patient, in no apparent distress. Awake and alert. SKIN: (+)multiple shallow areas of skin breakdown on the buttocks and dee- rectal area with foul smelling purulent discharge. No fluctuance noted on examination. HEAD: Atraumatic. Normocephalic. No temporal or scalp tenderness. EYES: Pupils equal round and reactive. Extraocular motions intact. No scleral icterus. No injection or drainage. ENT: Nose without bleeding, purulent drainage. (+)Oral thrush. Airway patent. NECK: Trachea midline. No JVD or lymphadenopathy. Supple, nontender, no meningeal signs. CARDIOVASCULAR: Regular rate and rhythm without murmurs, gallops, or rubs. RESPIRATORY: Clear to auscultation. Breath sounds equal bilaterally. No wheezes , rales, or rhonchi. GASTROINTESTINAL: Abdomen soft, non-tender, nondistended. No hepato-splenomegaly , or palpable masses. No guarding. (+)CVAT MUSCULOSKELETAL: Extremities without clubbing, cyanosis, or edema. No joint tenderness, effusion, or edema noted. No calf tenderness. NEUROLOGICAL: Awake and alert. Able to move all extremities. No focal neurologic finding appreciated. Normal speech. Medications and IVs Current Medications Medications (Trade) Dose Ordered Sig/Nyla Route Start Time Stop Time Status Last Admin Pharmacy Profile Note 0 ml @ 0 mls/hr UNSCH OTHER 11/05/16 16:15 Piperacillin Sod/ Tazobactam Sod 50 ml @ 100 mls/hr Q8H IV 11/06/16 00:00 11/07/16 08:47 (NS 1000 ml Inj) 1,000 ml @ 125 mls/hr Q8H IV 11/05/16 17:00 11/07/16 01:36 (NS Flush) 2 ml UNSCH PRN IV FLUSH 11/05/16 16:15 (NS Flush) 2 ml BID IV FLUSH 11/05/16 21:00 11/07/16 08:52 (Tylenol) 650 mg Q4H PRN PO 11/05/16 16:15 (Zofran Inj) 4 mg Q6H PRN IVP 11/05/16 16:15 (Heparin Inj) 5,000 units Q12H SQ 11/05/16 17:00 11/07/16 05:00 (Narcan Inj) 0.4 mg UNSCH PRN IV 11/05/16 16:15 (Dee-Colace) 1 tab BID PO 11/05/16 21:00 11/05/16 20:05 (Milk Of Magnesia Liq) 30 ml Q12H PRN PO 11/05/16 16:15 (Senokot) 17.2 mg Q12H PRN PO 11/05/16 16:15 (Dulcolax Supp) 10 mg DAILY PRN RECTAL 11/05/16 16:15 (Lactulose Liq) 30 ml DAILY PRN PO 11/05/16 16:15 ([place] 7.5-325 Mg) 1 tab Q4H PRN PO 11/05/16 16:15 Nystatin 5 ml 5 ml QID SWISH-SWAL 11/05/16 18:00 11/06/16 16:42 (Vancomycin Inj/ NS 250 ml Inj) 250 ml @ 250 mls/hr ONCE ONCE IV 11/07/16 12:00 11/07/16 12:59 11/07/16 11:27 A/P Assessment and Plan 50yo male with PMHX of HIV who follows with Dr. Samuels as outpatient last seen 6 months ago who admits to being noncompliant with his HIV medications for the past 2 months and presents to [facility] ED with complaints of severe buttock pain secondary to multiple buttock and perirectal wounds for the past two months. Severe sepsis secondary to buttock and perirectal wounds: Patient met sepsis criteria with tachycardia HR 134, respiration of 24 and acute kidney failure with creatinine of 7.83. + Immunocompromised, h/o HIV previously on HAART but noncompliant for the past two months had some fever and was asked for ID seen by Doctor Bozena Chambers she thinks the Fever is related to UTI, has stones, Ulcers in the buttock looked more Herpetic, asked for HSV and VZV serologies, continue Zosyn but removed the Vancomycin, continue wound care and will follow. No nausea, vomit or diarrhea. ARF creatinine 7.83, Mild improvement to 6.95. he has history of Kidney stones. CT abd/pelvis r/o obstructive nephrolithiasis, continue IV fluids and avoid Nephrotoxic agents. Consulted Nephrology specialist, once stable Nephrology consider to get MRI or CT angiogram to evaluate the lesion in the right Kidney, Buttock and dee-rectal wounds Discussed with artillery specialist and consider is okay with wound care do not believe the fever comes from this ulcers. HIV patient admits to being noncompliant with his meds for the past 2 mos. Will not resume at this time. obtain CD4 count Oral candidiasis Nystatin s/s Anemia, normocytic, normochromic hemoglobin 7.6 today likely due to kidney dz am labs to monitor DVT prophylaxis Heparin sq Discussed with Patient in the room, all questions answered to the best of my abilities Discharge Planning Not yet cleared by specialists. Ze Chan MD Nov 07, 2016 12:52
--- NOTE | 2016-11-07 15:41 | PD.WCN.NOT ---
Wound Consult Description: Wound Management of sacrum per Dr Draper. Communicated with: KITTY Monreal Dr Recommendation: Cleanse scrotal, perianal, and right buttock wounds with wound cleanser and soft cloths BID and leave open to air. Encourage patient to lay on his right and left sides only when not sitting up to eat meals. Use only one ultrasorb underneath patient bottom for absorption/moisture. Additional Information: *Late entry* Patient seen earlier on [facility] for multiple wounds noted to scrotum, perianal, and right buttock. Too many wounds to measure with patient in pain. All wounds on scrotum, in the perianal area, and the right buttock appear to be partial thickness skin loss with red moist wound beds of mixed etiology of round and irregularly shaped wound margins from unknown etiology. Periwounds are unremarkable. Wound cultures were taken after gently and quickly cleansing wounds with NS and gauze. Patient perianal and scrotal areas are moist and there is a milky white thick layer of film noted to scrotum and inner buttocks that was gently cleansed off with NS and gauze. Recommendations for cleansing and leaving open to air were discussed with KITTY Monreal who sent the obtained wound culture to lab per Dr Draper verbal instructions. Elena Epperson [facility] Nov 07, 2016 15:40
--- NOTE | 2016-11-07 15:51 | HHI.NPPN ---
Subjective History of Present Illness 50-year-old male with past medical history of HIV disease for more than 20 years and history of renal stone who came to the hospital with complaint of back pain. The patient has back pain going on for the last 2 months off and on and he came to the emergency department yesterday with worsening pain. Additional Remarks Patient is alert, now back pain is better, no SOB, and passing more urine. Review of Systems General Constitutional: Fatigue Cardiovascular Cardiac: MIRZA Objective Data Data 11/06/16 11/07/16 19:00 07:00 Intake Total 1824 ml 720 ml Output Total 400 ml 1150 ml Balance 1424 ml -430 ml Intake Oral 960 ml 720 ml IV Total 864 ml Output Urine Total 400 ml 1150 ml # Bowel Movements 0 0 Vital Signs Date Time Temp Pulse Resp B/P Pulse Ox O2 Delivery O2 Flow Rate FiO2 11/07/16 12:00 98.8 91 18 166/96 100 11/07/16 08:00 98.9 85 18 161/98 97 11/07/16 08:00 96 Room Air 11/07/16 08:00 84 11/07/16 04:00 98.6 87 16 143/92 100 11/07/16 00:00 100.6 91 18 148/92 100 11/06/16 20:00 100.2 89 16 131/81 99 11/06/16 20:00 87 11/06/16 19:00 Room Air 11/06/16 17:23 93 11/06/16 16:00 99.2 105 18 138/73 99 -: 11/06/16 0730 11/06/16 0730 Physical Exam General Appearance: No Acute Distress, Comfortable Eyes Eye Exam: Pupils Equal Throat Throat Exam: Oral Mucosa [place] & Moist Pulmonary Resp Exam: Breath Sounds Equal, No Distress, Rhonchi, Decreased Bases Cardiology CV Exam: Regular, Normal Sinus Rhythm Gastrointestinal/Abdomen GI Exam: Soft, Non-Tender, Bowel Sounds Present Extremeties Extremities Exam: No Edema Neurologic Neuro Exam: Alert, Awake, Oriented Psychiatric Psych Exam: Appropriate Responses Assessment/Plan Assessment Summary: MIKE/Acute Renal Failure Problem List: (1) Renal failure (2) Sepsis (3) Open wound of scrotum Plan Patient has been non oliguric. BP is stable and remain afebrile. On Zosyn and IVF. No new BMP, last Creatinine was around 7. Hgb. is low, serology PND. Check SPEP and iron stores. Continue IVF, avoid Nephrotoxins, follow the repeat BMP. Problem Qualifiers (1) Renal failure: Qualified Code: N17.9 - Acute renal failure superimposed on chronic kidney disease, unspecified CKD stage, unspecified acute renal failure type (2) Sepsis: Qualified Code: A41.9 - Sepsis, due to unspecified organism Kwadwo Shah MD Nov 07, 2016 15:50
[2016-11-07 16:20] LABS: BICARBONATE 17.8 MEQ/L (21.0-32.0); POTASSIUM 4.4 MEQ/L (3.5-5.1)
[2016-11-07] MEDS: ACETAMINOPHEN 325 MG TAB PO PRN (18:58)
[2016-11-08] VITALS: BP 161/96; PULSE 77; RESP 16; TEMP 98.6; O2SAT 100
[2016-11-08 04:00] VITALS: BP 153/84; PULSE 97; RESP 20; TEMP 101; O2SAT 100
[2016-11-08] MEDS: HEPARIN SODIUM - SQ 10,000 UNITS/ML VIAL SQ SCH ×2 (05:00→16:31)
[2016-11-08] MEDS: ACETAMINOPHEN 325 MG TAB PO PRN ×2 (05:14→20:50)
[2016-11-08] MEDS: SODIUM CHLOR 0.9% 1000 ML INJ 1,000 ML IV SCH ×2 (05:17→18:07)
[2016-11-08 08:00] VITALS: BP 140/86; PULSE 83; PULSE 98; RESP 18; TEMP 98.2; O2SAT 100
[2016-11-08] MEDS: PIPERACIL-TAZO 2.25 GM PREMIX 50 ML IV SCH ×2 (08:11→16:25)
[2016-11-08] MEDS: NYSTATIN SUSP 500,000 U/5 ML CUP SWISH-SWAL SCH ×4 (08:11→20:50)
[2016-11-08] MEDS: SODIUM CHLORIDE 0.9% FLUSH 10 ML FLUSH IV FLUSH SCH ×2 (08:20→20:49)
[2016-11-08] MEDS: DOCUSATE SODIUM 50 MG/SENNA 8.6 MG TAB PO SCH ×2 (08:20→20:50)
--- NOTE | 2016-11-08 09:08 | PD.CONS ---
History of Present Illness Service Infectious Disease Consult Requested By Dr. Draper Reason for Consult Evaluate patient with HIV, and with multiple wounds Primary Care Physician Quan Valencia MD Diagnoses: History of Present Illness Patient seen and examined. Records reviewed. Patient is a 50-year-old male, with known HIV, the last 23 years, states his last CD4 count was around 2, has been following with an HIV provider over the last 4 years, percent to the hospital complaining all severe buttock pain which has been present for the last 2 months. He apparently initially noted some blister looking lesions that are painful on his right buttock. It spread, and he thought it was no resolve on its own, but they persisted and he continued to have problem. He initially also had some right sided abdominal pain, and thought that it was his kidney stone. He has had previous problem with kidney stone. Patient stated that he passed the stone. He currently denies any dysuria, and denies any prior history of hematuria. He has not had any fever or chills prior to admission, but since admission patient has had fevers. Denies any respiratory complaint. Denies any diarrhea. He's had some on and off vomiting, and this is the reason why he has not been very compliant with his HIV medication. On presentation, patient was found to have an abnormal urinalysis. His creatinine was 7+. CT of the abdomen and pelvis showed some stones but there is no evidence of hydronephrosis. Chest x-ray is unremarkable. As noted to have multiple ulcers in the room right buttock, as well as in the perirectal area. Some ulcers noted also in the scrotal area. Infectious disease consultation has been requested to evaluate the patient. Review of Systems Constitutional: COMPLAINS OF: Fatigue, Fever, Chills Eyes: DENIES: Eye pain Ears, nose, mouth, throat: DENIES: Nasal discharge, Oral lesions, Throat pain, Ear Pain, Running Nose Respiratory: DENIES: Cough, Sputum production, Shortness of breath Cardiovascular: DENIES: Chest pain, Palpitations, Syncope Gastrointestinal: COMPLAINS OF: Abdominal pain, Nausea, Vomiting, DENIES: Diarrhea, Difficulty Swallowing Genitourinary: DENIES: Urinary incontinence, Hematuria, Penile Discharge Musculoskeletal: COMPLAINS OF: Back pain, DENIES: Joint pain, Joint Swelling Integumentary: COMPLAINS OF: Rash Immunologic/allergic: DENIES: Urticaria Neurologic: DENIES: Headache Psychiatric: DENIES: Confusion, Hallucinations Past Family Social History Allergies: Coded Allergies: No Known Allergies (Unverified , 11/05/16) Past Medical History HIV, for 20+years, noncompliant with medications for the past 2 months Kidney stones Past Surgical History NOne Active Ordered Medications Tylenol [place] Dulcolax Heparin Lactulose MOM Mycostatin liquid Zofran Zosyn Dee-Colace Senokot Vancomycin 1 Family History Non-contributory Social History No smoking No ETOH abuse No illicit drugs Risk factor for HIV: homosexual activity Physical Exam Vital Signs Vital Signs Date Time Temp Pulse Resp B/P Pulse Ox O2 Delivery O2 Flow Rate FiO2 11/08/16 08:00 98.2 83 18 140/86 100 11/08/16 04:00 Room Air 11/08/16 04:00 101.0 97 20 153/84 100 11/08/16 00:00 98.6 77 16 161/96 100 11/08/16 00:00 Room Air 11/07/16 21:00 99.7 11/07/16 20:00 Room Air 11/07/16 20:00 101.4 97 18 152/81 99 11/07/16 20:00 104 11/07/16 16:00 102.4 101 18 152/92 100 11/07/16 12:00 98.8 91 18 166/96 100 Physical Exam GENERAL: Patient is a well-nourished, well-developed male, awake and alert, not in respiratory distress. SKIN: Warm and dry. He has hypepigmented macules in his UE. HEAD: Atraumatic. Normocephalic. No temporal wasting, or tenderness. EYES: [place] conjunctiva. No petechia or hemorrhage. Pupils equal, round and reactive to light. Extraocular movements full and intact. No scleral icterus. No injection or drainage. EARS, NOSE AND THROAT: Nose without bleeding or purulent nasal discharge. No sinus tenderness. Mucous membranes pink and moist. No oral lesions noted. No exudate. Has oral thrush. NECK: Trachea midline. Supple and not tender, no meningeal signs CARDIOVASCULAR: Regular rate and rhythm. No murmurs, rubs or gallops heard RESPIRATORY: Clear to auscultation. Breath sounds equal bilaterally. No rales , wheezing or rhonchi ABDOMEN: Soft, non-tender, nondistended. Bowel sounds present and normoactive. No guarding. No rebound. No organomegaly. EXTREMITIES: No clubbing, cyanosis, or edema.No joint effusion, has good ROM. No calf tenderness. Well perfused and warm. BACK: He has multiple large ulcers in his R buttock, and smaller ulcers in perirectal area, no surrounding cellulitis with some yellow drainage NEUROLOGICAL: Awake and alert. Cranial nerves grossly intact. Motor grossly within normal limits. PSYCHIATRIC: Normal affect, calm and cooperative. LINE: No evidence of infection : No penile ulcer or drainage noted Laboratory Laboratory Tests Test 11/07/16 15:16 Sodium Level 138 Potassium Level 4.4 Chloride Level 111 Carbon Dioxide Level 17.8 Anion Gap 9 Blood Urea Nitrogen 50 Creatinine 6.95 Estimat Glomerular Filtration 10 Rate Random Glucose 142 Calcium Level 7.9 Date/Time Procedure Status Source Growth 11/07/16 14:09 Gram Stain Received Wound Buttock Pending 11/07/16 14:09 Wound Culture Received Wound Buttock Pending 11/05/16 16:35 Urine Culture - Final Complete Urine Catheterized Urine 50-100,000 CFU/ML MIXED GRAM POSITIVE... 11/05/16 14:22 Aerobic Blood Culture - Preliminary Resulted Blood Peripheral NO GROWTH IN 2 DAYS 11/05/16 14:22 Anaerobic Blood Culture - Preliminary Resulted Blood Peripheral NO GROWTH IN 2 DAYS Result Diagram: 11/06/16 0730 11/07/16 1516 Imaging RADIOLOGY STUDIES/FILMS REVIEWED Renal Ultrasound 11/05/16 0000 Signed Impressions: Service Date/Time: Saturday, November 05, 2016 19:17 - CONCLUSION: Diffusely echogenic kidneys indicating medical renal disease. Dorian Murry MD Chest X-Ray 11/05/16 0000 Signed Impressions: Service Date/Time: Saturday, November 05, 2016 17:07 - CONCLUSION: 1. Patchy consolidation versus atelectasis in the upper lung zone on the lateral view. 2. 1 cm nodular density in the left lower lung zone on the PA view only. Recommend noncontrast chest CT to evaluate for pulmonary nodule. Dorian Murry MD Abdomen/Pelvis CT 11/05/16 0000 Signed Impressions: Service Date/Time: Saturday, November 05, 2016 17:19 - CONCLUSION: 1. 4 mm calculus in the right renal pelvis/ureteropelvic junction with mild adjacent perinephric/periureteral stranding. No evidence of hydronephrosis. 2. 1 cm round hypodensity in the anterior right mid kidney statistically most likely to represent a cyst. 3. 3.7 cm hypodensity in the right lobe of the liver air the dome of the diaphragm. This finding is nonspecific on noncontrast CT. The most likely etiologies include hemangioma and cyst. It could be further evaluated with ultrasound nonemergent followup MRI of the abdomen. 4. Mild dilated proximal right common iliac artery. Dorian Murry MD Assessment and Plan Assessment and Plan IMPRESSION Fevers likely due to UTI - has stones, patient stated he passed the stones, no obstruction on imaging studies -?infection related to his chronic HIV - ulcers in buttock, doubt causing fevers, looks herpetic, ?VZV Renal failure HIV RECOMMENDATION Get HSV and VZV serologies Follow CD4 counts Get records from his HIV MD Continue Zosyn for GNR for UTI Ok not to give any further Vanco unless with GPC on C/S Wound care as you are doing The (+) C/S from wound only signifies colonization Follow temps Renal following patient Monitor progress I will follow along with you Thank you for this consultation Discussed Condition With Explained plan to the patient Bozena Chambers MD Nov 08, 2016 09:08
[2016-11-08] MEDS: valACYclovir HCL 500 MG TAB PO SCH ×3 (10:07→20:50)
[2016-11-08 10:10] LABS: ANION GAP 10 MEQ/L (5-15); BICARBONATE 17.2 MEQ/L (21.0-32.0); BLOOD UREA NITROGEN 50 MG/DL (7-18); CHLORIDE 112 MEQ/L (98-107); GLOMERULAR FILTRATION RATE 10 ML/MIN (>89); POTASSIUM 4.3 MEQ/L (3.5-5.1); SODIUM (NA) 139 MEQ/L (136-145); TRANSFERRIN IRON PROFILE 84 MG/DL (200-360)
[2016-11-08 10:20] LABS: CALCIUM-PROTEIN CORRECTED 8.6 MG/DL (8.5-10.1); FERRITIN 2491 NG/ML (26-388); TOTAL PROTEIN SPE 4.9 GM/DL (6.0-7.6)
[2016-11-08 12:00] VITALS: BP 148/90; PULSE 101; RESP 18; TEMP 98.1; O2SAT 98
[2016-11-08 16:00] VITALS: BP 177/96; PULSE 102; RESP 18; TEMP 102; O2SAT 98
--- NOTE | 2016-11-08 16:29 | HHI.PR ---
Subjective Remarks This is a 50yo male with PMHX of HIV who follows with Dr. Samuels as outpatient last seen 6 months ago who admits to being noncompliant with his HIV medications for the past 2 months and presents to [facility] ED with complaints of severe buttock pain secondary to multiple buttocks and perirectal wounds for the past two months. Patient denies seeking any previous treatment. Patient is not the best historian. He denies any worsening of the wounds. When asked why he chose to come in today, patient states he was "just tired of it". He admits to decreased oral intake. He also reports low back pain yesterday that he thought might be attributable to another kidney stone. He denies any back pain presently. He endorses nausea with nonbilious, nonbloody emesis for the past 2-3 days. He denies any fevers but reports one episode of chills. He denies any chest pain or SOB. He denies any previous history of kidney problems. He denies any hematuria, dysuria, hesitancy, slow stream or incomplete emptying. He reports urinating 3 to 4 x during the day and the same at night. In the ED, he has a temp of 100.6. White count is normal. Lactic acid is 0.8. His creatinine is extremely elevated at 7.83. 11/07: Stable in his bedroom discussed with nurse Miss Monreal the patient is febrile and refusing Acetaminophen, consulted ID specialist and seen by Doctor Bozena Chambers she thinks the Fever is related to UTI, has stones, Ulcers in the buttock looked more Herpetic, asked for HSV and VZV serologies, continue Zosyn but removed the Vancomycin, continue wound care and will follow. 11/08: Seen in his bedroom, stable no complaint. No nausea, vomit or diarrhea. Objective Vital Signs Date Time Temp Pulse Resp B/P Pulse Ox O2 Delivery O2 Flow Rate FiO2 11/08/16 12:00 98.1 101 18 148/90 98 11/08/16 08:00 96 Room Air 11/08/16 08:00 98.2 83 18 140/86 100 11/08/16 08:00 98 11/08/16 04:00 Room Air 11/08/16 04:00 101.0 97 20 153/84 100 11/08/16 00:00 98.6 77 16 161/96 100 11/08/16 00:00 Room Air 11/07/16 21:00 99.7 11/07/16 20:00 Room Air 11/07/16 20:00 101.4 97 18 152/81 99 11/07/16 20:00 104 I/O 11/07/16 11/07/16 11/07/16 11/08/16 11/08/16 11/08/16 07:00 15:00 23:00 07:00 15:00 23:00 Intake Total 240 ml 720 ml 1998 ml 120 ml Output Total 300 ml 800 ml 500 ml 400 ml Balance -60 ml -80 ml 1498 ml -280 ml Intake Oral 240 ml 720 ml 240 ml 120 ml IV Total 1758 ml Output Urine Total 300 ml 800 ml 500 ml 400 ml Stool Total 0 ml # Bowel Movements 0 0 0 Result Diagram: 11/06/16 0730 11/08/16 0920 Imaging Last Impressions Renal Ultrasound 11/05/16 0000 Signed Impressions: Service Date/Time: Saturday, November 05, 2016 19:17 - CONCLUSION: Diffusely echogenic kidneys indicating medical renal disease. Dorian Murry MD Chest X-Ray 11/05/16 0000 Signed Impressions: Service Date/Time: Saturday, November 05, 2016 17:07 - CONCLUSION: 1. Patchy consolidation versus atelectasis in the upper lung zone on the lateral view. 2. 1 cm nodular density in the left lower lung zone on the PA view only. Recommend noncontrast chest CT to evaluate for pulmonary nodule. Dorian Murry MD Abdomen/Pelvis CT 11/05/16 0000 Signed Impressions: Service Date/Time: Saturday, November 05, 2016 17:19 - CONCLUSION: 1. 4 mm calculus in the right renal pelvis/ureteropelvic junction with mild adjacent perinephric/periureteral stranding. No evidence of hydronephrosis. 2. 1 cm round hypodensity in the anterior right mid kidney statistically most likely to represent a cyst. 3. 3.7 cm hypodensity in the right lobe of the liver air the dome of the diaphragm. This finding is nonspecific on noncontrast CT. The most likely etiologies include hemangioma and cyst. It could be further evaluated with ultrasound nonemergent followup MRI of the abdomen. 4. Mild dilated proximal right common iliac artery. Dorian Murry MD Procedures None Other Results Laboratory Tests Test 11/05/16 11/05/16 11/06/16 11/07/16 14:20 16:35 07:30 07:33 Eosinophils % 1 % Prothrombin Time 11.1 SEC Prothromb Time International 1.0 RATIO Ratio Activated Partial 32.0 SEC Thromboplast Time Lactic Acid Level 0.8 mmol/L Triglycerides Level 189 MG/DL Cholesterol Level 190 MG/DL LDL Cholesterol 115 MG/DL HDL Cholesterol 37.4 MG/DL Cholesterol/HDL Ratio 5.08 RATIO Free Thyroxine 1.39 NG/DL Thyroid Stimulating Hormone 0.931 uIU/ML 3rd Gen Hemoglobin A1c 6.2 % Urine Color YELLOW Urine Turbidity HAZY Urine pH 6.0 Urine Specific [place] 1.014 Urine Protein 300 mg/dL Urine Glucose (UA) NEG mg/dL Urine Ketones NEG mg/dL Urine Occult Blood MOD Urine Nitrite NEG Urine Bilirubin NEG Urine Urobilinogen LESS THAN 2.0 MG/DL Urine Leukocyte Esterase LARGE Urine RBC 14 /hpf Urine WBC /hpf Urine Squamous Epithelial 1 /hpf Cells Urine Amorphous Sediment RARE Urine Bacteria MANY /hpf Urine Mucus FEW /lpf Microscopic Urinalysis Comment CATH-CULTURE IND White Blood Count 5.5 TH/MM3 Red Blood Count 2.61 MIL/MM3 Hemoglobin 7.6 GM/DL Hematocrit 22.3 % Mean Corpuscular Volume 85.3 FL Mean Corpuscular Hemoglobin 28.9 PG Mean Corpuscular Hemoglobin 33.9 % Concent Red Cell Distribution Width 14.6 % Platelet Count 209 TH/MM3 Mean Platelet Volume 8.3 FL Neutrophils (%) (Auto) 86.4 % Lymphocytes (%) (Auto) 2.1 % Monocytes (%) (Auto) 10.6 % Eosinophils (%) (Auto) 0.3 % Basophils (%) (Auto) 0.6 % Neutrophils # (Auto) 4.8 TH/MM3 Lymphocytes # (Auto) 0.1 TH/MM3 Monocytes # (Auto) 0.6 TH/MM3 Eosinophils # (Auto) 0.0 TH/MM3 Basophils # (Auto) 0.0 TH/MM3 CBC Comment AUTO DIFF Differential Total Cells 100 Counted Neutrophils % (Manual) 70 % Band Neutrophils % 20 % Lymphocytes % 2 % Monocytes % 8 % Neutrophils # (Manual) 5.0 TH/MM3 Differential Comment FINAL DIFF MANUAL Platelet Estimate NORMAL Platelet Morphology Comment NORMAL Ovalocytes 1+ Total Bilirubin 0.3 MG/DL Aspartate Amino Transf 23 U/L (AST/SGOT) Alanine Aminotransferase 13 U/L (ALT/SGPT) Alkaline Phosphatase 46 U/L Albumin 2.1 GM/DL Rapid Plasma Reagin NON-REACTIVE Complement C3 133 MG/DL Complement C4 34 MG/DL Test 11/07/16 11/08/16 08:33 09:20 Phosphorus Level 4.4 MG/DL Total Creatine Kinase 131 U/L Random Vancomycin Level 10.9 COMMENT Sodium Level 139 MEQ/L Potassium Level 4.3 MEQ/L Chloride Level 112 MEQ/L Carbon Dioxide Level 17.2 MEQ/L Anion Gap 10 MEQ/L Blood Urea Nitrogen 50 MG/DL Creatinine 6.81 MG/DL Estimat Glomerular Filtration 10 ML/MIN Rate Random Glucose 91 MG/DL Calcium Level 7.4 MG/DL Protein Corrected Calcium 8.6 MG/DL Iron Level 25 MCG/DL Total Iron Binding Capacity 118 MCG/DL Percent Iron Saturation 21.3 % Ferritin 2491 NG/ML Total Protein 4.9 GM/DL Objective Remarks GENERAL: This is a well-nourished, well-developed patient, in no apparent distress. Awake and alert. SKIN: (+)multiple shallow areas of skin breakdown on the buttocks and dee- rectal area with foul smelling purulent discharge. No fluctuance noted on examination. HEAD: Atraumatic. Normocephalic. No temporal or scalp tenderness. EYES: Pupils equal round and reactive. Extraocular motions intact. No scleral icterus. No injection or drainage. ENT: Nose without bleeding, purulent drainage. (+)Oral thrush. Airway patent. NECK: Trachea midline. No JVD or lymphadenopathy. Supple, nontender, no meningeal signs. CARDIOVASCULAR: Regular rate and rhythm without murmurs, gallops, or rubs. RESPIRATORY: Clear to auscultation. Breath sounds equal bilaterally. No wheezes , rales, or rhonchi. GASTROINTESTINAL: Abdomen soft, non-tender, nondistended. No hepato-splenomegaly , or palpable masses. No guarding. (+)CVAT MUSCULOSKELETAL: Extremities without clubbing, cyanosis, or edema. No joint tenderness, effusion, or edema noted. No calf tenderness. NEUROLOGICAL: Awake and alert. Able to move all extremities. No focal neurologic finding appreciated. Normal speech. Medications and IVs Current Medications Medications (Trade) Dose Ordered Sig/Nyla Route Start Time Stop Time Status Last Admin Piperacillin Sod/ Tazobactam Sod 50 ml @ 100 mls/hr Q8H IV 11/06/16 00:00 11/08/16 08:11 (NS 1000 ml Inj) 1,000 ml @ 83 mls/hr Q12H3M IV 11/05/16 17:00 11/08/16 05:17 (NS Flush) 2 ml UNSCH PRN IV FLUSH 11/05/16 16:15 (NS Flush) 2 ml BID IV FLUSH 11/05/16 21:00 11/08/16 08:20 (Tylenol) 650 mg Q4H PRN PO 11/05/16 16:15 11/08/16 05:14 (Zofran Inj) 4 mg Q6H PRN IVP 11/05/16 16:15 (Heparin Inj) 5,000 units Q12H SQ 11/05/16 17:00 11/07/16 05:00 (Narcan Inj) 0.4 mg UNSCH PRN IV 11/05/16 16:15 (Dee-Colace) 1 tab BID PO 11/05/16 21:00 11/05/16 20:05 (Milk Of Magnesia Liq) 30 ml Q12H PRN PO 11/05/16 16:15 (Senokot) 17.2 mg Q12H PRN PO 11/05/16 16:15 (Dulcolax Supp) 10 mg DAILY PRN RECTAL 11/05/16 16:15 (Lactulose Liq) 30 ml DAILY PRN PO 11/05/16 16:15 (Adrian 7.5-325 Mg) 1 tab Q4H PRN PO 11/05/16 16:15 (Mycostatin Liq) 5 ml QID SWISH-SWAL 11/05/16 18:00 11/08/16 13:00 (Valtrex) 500 mg Q8HR PO 11/08/16 09:15 11/08/16 10:07 A/P Assessment and Plan 50yo male with PMHX of HIV who follows with Dr. Samuels as outpatient last seen 6 months ago who admits to being noncompliant with his HIV medications for the past 2 months and presents to [facility] ED with complaints of severe buttock pain secondary to multiple buttock and perirectal wounds for the past two months. Severe sepsis secondary to buttock and perirectal wounds: Patient met sepsis criteria with tachycardia HR 134, respiration of 24 and acute kidney failure with creatinine of 7.83. + Immunocompromised, h/o HIV previously on HAART but noncompliant for the past two months had some fever and was asked for ID seen by Doctor Bozena Chambers she thinks the Fever is related to UTI, has stones, Ulcers in the buttock looked more Herpetic, asked for HSV and VZV serologies, continue Zosyn but removed the Vancomycin, continue wound care and will follow. No nausea, vomit or diarrhea. ARF creatinine 7.83, Mild improvement to 6.81. he has history of Kidney stones. CT abd/pelvis r/o obstructive nephrolithiasis, continue IV fluids and avoid Nephrotoxic agents. Consulted Nephrology specialist, once stable Nephrology consider to get MRI or CT angiogram to evaluate the lesion in the right Kidney, Buttock and dee-rectal wounds Discussed with transmission specialist and consider is okay with wound care do not believe the fever comes from this ulcers. HIV patient admits to being noncompliant with his meds for the past 2 mos. Will not resume at this time. obtain CD4 count Oral candidiasis Nystatin s/s Anemia, normocytic, normochromic hemoglobin 7.6 today likely due to kidney dz am labs to monitor DVT prophylaxis Heparin sq Discussed with Patient in the room, all questions answered to the best of my abilities No changes to anterior assessment. Discharge Planning Not yet cleared by specialists. Ze Chan MD Nov 08, 2016 16:29
--- NOTE | 2016-11-08 17:38 | HHI.NPPN ---
Subjective History of Present Illness 50-year-old male with past medical history of HIV disease for more than 20 years and history of renal stone who came to the hospital with complaint of back pain. The patient has back pain going on for the last 2 months off and on and he came to the emergency department yesterday with worsening pain. Additional Remarks Patient is alert, no SOB, feeling better, still spiking fever. Review of Systems General Constitutional: Fatigue Cardiovascular Cardiac: MIRZA Objective Data Data 11/07/16 11/08/16 18:59 06:59 Intake Total 720 ml 2118 ml Output Total 800 ml 900 ml Balance -80 ml 1218 ml Intake Oral 720 ml 360 ml IV Total 1758 ml Output Urine Total 800 ml 900 ml Stool Total 0 ml # Bowel Movements 0 Vital Signs Date Time Temp Pulse Resp B/P Pulse Ox O2 Delivery O2 Flow Rate FiO2 11/08/16 16:00 102.0 102 18 177/96 98 11/08/16 12:00 98.1 101 18 148/90 98 11/08/16 08:00 96 Room Air 11/08/16 08:00 98.2 83 18 140/86 100 11/08/16 08:00 98 11/08/16 04:00 Room Air 11/08/16 04:00 101.0 97 20 153/84 100 11/08/16 00:00 98.6 77 16 161/96 100 11/08/16 00:00 Room Air 11/07/16 21:00 99.7 11/07/16 20:00 Room Air 11/07/16 20:00 101.4 97 18 152/81 99 11/07/16 20:00 104 -: 11/06/16 0730 11/08/16 0920 Physical Exam General Appearance: No Acute Distress, Comfortable Eyes Eye Exam: Pupils Equal Throat Throat Exam: Oral Mucosa Thurman & Moist Pulmonary Resp Exam: Breath Sounds Equal, No Distress, Rhonchi, Decreased Bases Cardiology CV Exam: Regular, Normal Sinus Rhythm Gastrointestinal/Abdomen GI Exam: Soft, Non-Tender, Bowel Sounds Present Extremeties Extremities Exam: No Edema Neurologic Neuro Exam: Alert, Awake, Oriented Psychiatric Psych Exam: Appropriate Responses Assessment/Plan Assessment Summary: MIKE/Acute Renal Failure Problem List: (1) Renal failure (2) Sepsis (3) Open wound of scrotum Plan Patient has been non oliguric. BP is stable and now spiking fever. On Zosyn and IVF. No new BMP, last Creatinine was around 7. Hgb. is low, serology PND. Check SPEP and iron stores. Continue IVF, avoid Nephrotoxins, Creatinine is slightly better. Seen by ID. Problem Qualifiers (1) Renal failure: Qualified Code: N17.9 - Acute renal failure superimposed on chronic kidney disease, unspecified CKD stage, unspecified acute renal failure type (2) Sepsis: Qualified Code: A41.9 - Sepsis, due to unspecified organism Kwadwo Shah MD Nov 08, 2016 17:38
[2016-11-08 20:00] VITALS: BP 160/94; PULSE 104; RESP 20; TEMP 102.5; O2SAT 99
[2016-11-09] VITALS (8 sets, daily range): BP systolic 124–179; BP diastolic 75–113; PULSE 81–121; RESP 18–20; TEMP 98.7–102.4; O2SAT 97–100
[2016-11-09] MEDS: PIPERACIL-TAZO 2.25 GM PREMIX 50 ML IV SCH ×3 (00:05→16:35)
[2016-11-09 03:49] LABS: CD 19 PERCENT 5 % (6-29); CD3 ABSOLUTE 90 (840-3060); CD4/CD8 RATIO 0.1 (0.86-5.00); CD8 ABSOLUTE 74 (180-1170); LYMPHOCYTES, ABSOLUTE 155 (850-3900)
[2016-11-09] MEDS: HEPARIN SODIUM - SQ 10,000 UNITS/ML VIAL SQ SCH ×2 (04:47→16:10)
[2016-11-09] MEDS: valACYclovir HCL 500 MG TAB PO SCH ×3 (05:16→20:53)
[2016-11-09] MEDS: SODIUM CHLOR 0.9% 1000 ML INJ 1,000 ML IV SCH (05:17)
[2016-11-09] MEDS: DOCUSATE SODIUM 50 MG/SENNA 8.6 MG TAB PO SCH ×2 (09:00→20:49)
[2016-11-09] MEDS: SODIUM CHLORIDE 0.9% FLUSH 10 ML FLUSH IV FLUSH SCH ×2 (09:00→20:54)
[2016-11-09] MEDS: NYSTATIN SUSP 500,000 U/5 ML CUP SWISH-SWAL SCH ×4 (09:08→20:54)
--- NOTE | 2016-11-09 12:55 | HHI.PR ---
Subjective Remarks This is a 50yo male with PMHX of HIV who follows with Dr. Samuels as outpatient last seen 6 months ago who admits to being noncompliant with his HIV medications for the past 2 months and presents to [facility] ED with complaints of severe buttock pain secondary to multiple buttocks and perirectal wounds for the past two months. Patient denies seeking any previous treatment. Patient is not the best historian. He denies any worsening of the wounds. When asked why he chose to come in today, patient states he was "just tired of it". He admits to decreased oral intake. He also reports low back pain yesterday that he thought might be attributable to another kidney stone. He denies any back pain presently. He endorses nausea with nonbilious, nonbloody emesis for the past 2-3 days. He denies any fevers but reports one episode of chills. He denies any chest pain or SOB. He denies any previous history of kidney problems. He denies any hematuria, dysuria, hesitancy, slow stream or incomplete emptying. He reports urinating 3 to 4 x during the day and the same at night. In the ED, he has a temp of 100.6. White count is normal. Lactic acid is 0.8. His creatinine is extremely elevated at 7.83. 11/07: Stable in his bedroom discussed with nurse Jocelin the patient is febrile and refusing Acetaminophen, consulted ID specialist and seen by Doctor Bozena Chambers she thinks the Fever is related to UTI, has stones, Ulcers in the buttock looked more Herpetic, asked for HSV and VZV serologies, continue Zosyn but removed the Vancomycin, continue wound care and will follow. 11/08: No new issues. 11/09: Seen in his bedroom, was febrile yesterday 102F, Hemoglobin 7.6, Creatinine 6.81, CD4 count less than 20, HSV positive, UA positive for E Coli switched by ID specialist to Ceftriaxone. no nausea, vomit or diarrhea. Objective Vital Signs Date Time Temp Pulse Resp B/P Pulse Ox O2 Delivery O2 Flow Rate FiO2 11/09/16 08:10 100 11/09/16 08:10 Room Air 11/09/16 08:00 99.3 110 20 152/97 97 11/09/16 04:00 Room Air 8/16/17 04:00 99.3 98 20 153/91 99 11/09/16 00:00 Room Air 11/09/16 00:00 98.7 81 18 124/75 99 11/08/16 20:00 102.5 104 20 160/94 99 11/08/16 20:00 Room Air 11/08/16 16:00 102.0 102 18 177/96 98 I/O 11/08/16 11/08/16 11/08/16 11/09/16 11/09/16 11/09/16 07:00 15:00 23:00 07:00 15:00 23:00 Intake Total 120 ml 720 ml 1493 ml 360 ml Output Total 400 ml 800 ml 400 ml Balance -280 ml 720 ml 693 ml -40 ml Intake Oral 120 ml 720 ml 240 ml 360 ml IV Total 1253 ml Output Urine Total 400 ml 800 ml 400 ml # Voids 3 # Bowel Movements 0 2 1 0 Result Diagram: 11/06/16 0730 11/08/16 0920 Imaging Last Impressions Renal Ultrasound 11/05/16 0000 Signed Impressions: Service Date/Time: Saturday, November 05, 2016 19:17 - CONCLUSION: Diffusely echogenic kidneys indicating medical renal disease. Dorian Murry MD Chest X-Ray 11/05/16 0000 Signed Impressions: Service Date/Time: Saturday, November 05, 2016 17:07 - CONCLUSION: 1. Patchy consolidation versus atelectasis in the upper lung zone on the lateral view. 2. 1 cm nodular density in the left lower lung zone on the PA view only. Recommend noncontrast chest CT to evaluate for pulmonary nodule. Dorian Murry MD Abdomen/Pelvis CT 11/05/16 0000 Signed Impressions: Service Date/Time: Saturday, November 05, 2016 17:19 - CONCLUSION: 1. 4 mm calculus in the right renal pelvis/ureteropelvic junction with mild adjacent perinephric/periureteral stranding. No evidence of hydronephrosis. 2. 1 cm round hypodensity in the anterior right mid kidney statistically most likely to represent a cyst. 3. 3.7 cm hypodensity in the right lobe of the liver air the dome of the diaphragm. This finding is nonspecific on noncontrast CT. The most likely etiologies include hemangioma and cyst. It could be further evaluated with ultrasound nonemergent followup MRI of the abdomen. 4. Mild dilated proximal right common iliac artery. Dorian Murry MD Procedures None Other Results Laboratory Tests Test 11/05/16 11/05/16 11/06/16 11/07/16 14:20 16:35 07:30 07:33 Eosinophils % 1 % Prothrombin Time 11.1 SEC Prothromb Time International 1.0 RATIO Ratio Activated Partial 32.0 SEC Thromboplast Time Lactic Acid Level 0.8 mmol/L Triglycerides Level 189 MG/DL Cholesterol Level 190 MG/DL LDL Cholesterol 115 MG/DL HDL Cholesterol 37.4 MG/DL Cholesterol/HDL Ratio 5.08 RATIO Free Thyroxine 1.39 NG/DL Thyroid Stimulating Hormone 0.931 uIU/ML 3rd Gen Hemoglobin A1c 6.2 % Urine Color YELLOW Urine Turbidity HAZY Urine pH 6.0 Urine Specific [place] 1.014 Urine Protein 300 mg/dL Urine Glucose (UA) NEG mg/dL Urine Ketones NEG mg/dL Urine Occult Blood MOD Urine Nitrite NEG Urine Bilirubin NEG Urine Urobilinogen LESS THAN 2.0 MG/DL Urine Leukocyte Esterase LARGE Urine RBC 14 /hpf Urine WBC /hpf Urine Squamous Epithelial 1 /hpf Cells Urine Amorphous Sediment RARE Urine Bacteria MANY /hpf Urine Mucus FEW /lpf Microscopic Urinalysis Comment CATH-CULTURE IND White Blood Count 5.5 TH/MM3 Red Blood Count 2.61 MIL/MM3 Hemoglobin 7.6 GM/DL Hematocrit 22.3 % Mean Corpuscular Volume 85.3 FL Mean Corpuscular Hemoglobin 28.9 PG Mean Corpuscular Hemoglobin 33.9 % Concent Red Cell Distribution Width 14.6 % Platelet Count 209 TH/MM3 Mean Platelet Volume 8.3 FL Neutrophils (%) (Auto) 86.4 % Lymphocytes (%) (Auto) 2.1 % Monocytes (%) (Auto) 10.6 % Eosinophils (%) (Auto) 0.3 % Basophils (%) (Auto) 0.6 % Neutrophils # (Auto) 4.8 TH/MM3 Lymphocytes # (Auto) 0.1 TH/MM3 Monocytes # (Auto) 0.6 TH/MM3 Eosinophils # (Auto) 0.0 TH/MM3 Basophils # (Auto) 0.0 TH/MM3 CBC Comment AUTO DIFF Differential Total Cells 100 Counted Neutrophils % (Manual) 70 % Band Neutrophils % 20 % Lymphocytes % 2 % Monocytes % 8 % Neutrophils # (Manual) 5.0 TH/MM3 Differential Comment FINAL DIFF MANUAL Platelet Estimate NORMAL Platelet Morphology Comment NORMAL Ovalocytes 1+ Total Bilirubin 0.3 MG/DL Aspartate Amino Transf 23 U/L (AST/SGOT) Alanine Aminotransferase 13 U/L (ALT/SGPT) Alkaline Phosphatase 46 U/L Albumin 2.1 GM/DL Rapid Plasma Reagin NON-REACTIVE Complement C3 133 MG/DL Complement C4 34 MG/DL Absolute Lymphocytes (Cell 155 Immunity Percent CD3 Cells 58 % Absolute CD3 Count 90 Percent CD3-/CD16+/CD56+ Cells 36 % Absolute CD3-/CD16+/CD56+ 61 Count Percent CD4 Cells 3 % Absolute CD4 Count LESS THAN 20 T-Bovill/Suppressor Ratio 0.1 Percent CD8 Cells 53 % Absolute CD8 Count 74 Percent CD19 Cells 5 % Absolute CD19 Count LESS THAN 20 Test 11/07/16 11/07/16 11/08/16 08:33 17:33 09:20 Phosphorus Level 4.4 MG/DL Total Creatine Kinase 131 U/L Random Vancomycin Level 10.9 COMMENT Herpes Simplex Virus I IgG Ab Positive Index Herpes Simplex Virus II IgG Positive Index Sodium Level 139 MEQ/L Potassium Level 4.3 MEQ/L Chloride Level 112 MEQ/L Carbon Dioxide Level 17.2 MEQ/L Anion Gap 10 MEQ/L Blood Urea Nitrogen 50 MG/DL Creatinine 6.81 MG/DL Estimat Glomerular Filtration 10 ML/MIN Rate Random Glucose 91 MG/DL Calcium Level 7.4 MG/DL Protein Corrected Calcium 8.6 MG/DL Iron Level 25 MCG/DL Total Iron Binding Capacity 118 MCG/DL Percent Iron Saturation 21.3 % Ferritin 2491 NG/ML Total Protein 4.9 GM/DL Objective Remarks GENERAL: This is a well-nourished, well-developed patient, in no apparent distress. Awake and alert. SKIN: (+)multiple shallow areas of skin breakdown on the buttocks and dee- rectal area with foul smelling purulent discharge. No fluctuance noted on examination. HEAD: Atraumatic. Normocephalic. No temporal or scalp tenderness. EYES: Pupils equal round and reactive. Extraocular motions intact. No scleral icterus. No injection or drainage. ENT: Nose without bleeding, purulent drainage. (+)Oral thrush. Airway patent. NECK: Trachea midline. No JVD or lymphadenopathy. Supple, nontender, no meningeal signs. CARDIOVASCULAR: Regular rate and rhythm without murmurs, gallops, or rubs. RESPIRATORY: Clear to auscultation. Breath sounds equal bilaterally. No wheezes , rales, or rhonchi. GASTROINTESTINAL: Abdomen soft, non-tender, nondistended. No hepato-splenomegaly , or palpable masses. No guarding. (+)CVAT MUSCULOSKELETAL: Extremities without clubbing, cyanosis, or edema. No joint tenderness, effusion, or edema noted. No calf tenderness. NEUROLOGICAL: Awake and alert. Able to move all extremities. No focal neurologic finding appreciated. Normal speech. Medications and IVs Current Medications Medications (Trade) Dose Ordered Sig/Nyla Route Start Time Stop Time Status Last Admin Piperacillin Sod/ Tazobactam Sod 50 ml @ 100 mls/hr Q8H IV 11/06/16 00:00 11/09/16 09:08 (NS 1000 ml Inj) 1,000 ml @ 83 mls/hr Q12H3M IV 11/05/16 17:00 11/09/16 05:17 (NS Flush) 2 ml UNSCH PRN IV FLUSH 11/05/16 16:15 (NS Flush) 2 ml BID IV FLUSH 11/05/16 21:00 11/08/16 08:20 (Tylenol) 650 mg Q4H PRN PO 11/05/16 16:15 11/08/16 20:50 (Zofran Inj) 4 mg Q6H PRN IVP 11/05/16 16:15 (Heparin Inj) 5,000 units Q12H SQ 11/05/16 17:00 11/07/16 05:00 (Narcan Inj) 0.4 mg UNSCH PRN IV 11/05/16 16:15 (Dee-Colace) 1 tab BID PO 11/05/16 21:00 11/05/16 20:05 (Milk Of Magnesia Liq) 30 ml Q12H PRN PO 11/05/16 16:15 (Senokot) 17.2 mg Q12H PRN PO 11/05/16 16:15 (Dulcolax Supp) 10 mg DAILY PRN RECTAL 11/05/16 16:15 (Lactulose Liq) 30 ml DAILY PRN PO 11/05/16 16:15 ([place] 7.5-325 Mg) 1 tab Q4H PRN PO 11/05/16 16:15 (Mycostatin Liq) 5 ml QID SWISH-SWAL 11/05/16 18:00 11/09/16 09:08 (Valtrex) 500 mg Q8HR PO 11/08/16 09:15 11/09/16 05:16 A/P Assessment and Plan 50yo male with PMHX of HIV who follows with Dr. Samuels as outpatient last seen 6 months ago who admits to being noncompliant with his HIV medications for the past 2 months and presents to [facility] ED with complaints of severe buttock pain secondary to multiple buttock and perirectal wounds for the past two months. 1. Severe sepsis secondary to UTI : Improving, recommended by ID to switch from Zosyn to Ceftriaxone today to cover E coli in Urine. + Immunocompromised, h/o HIV previously on HAART but noncompliant for the past two months, HSV positive 2. ARF initial diagnosis but may have CKD awaiting final recommendations by Nephrology specialist. creatinine 7.83, Mild improvement to 6.81. he has history of Kidney stones. CT abd/pelvis r/o obstructive nephrolithiasis, continue IV fluids and avoid Nephrotoxic agents. Consulted Nephrology specialist, once stable Nephrology consider to get MRI or CT angiogram to evaluate the lesion in the right Kidney, 2. 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 3. HIV CD4 count less than 20 patient admits to being noncompliant with his meds for the past 2 mos. 4. Oral Thrush Nystatin s/s 5. Anemia, normocytic, normochromic hemoglobin 7.6 today likely secondary to CKD DVT prophylaxis Heparin sq Discussed with Patient in the room, all questions answered to the best of my abilities Discharge Planning Not yet cleared by specialists. Ze Chan MD Nov 09, 2016 12:55 Discussed with Patient in the room, all questions answered to the best of my abilities No changes to anterior assessment. Discharge Planning Not yet cleared by specialists. Ze Chan MD Nov 09, 2016 12:55
[2016-11-09 13:55] LABS: MYELOPEROXIDASE LESS THAN 1.0 AI (<1.0); PROTEINASE-3 LESS THAN 1.0 AI (<1.0)
--- NOTE | 2016-11-09 17:23 | HHI.NPPN ---
Subjective History of Present Illness 50-year-old male with past medical history of HIV disease for more than 20 years and history of renal stone who came to the hospital with complaint of back pain. The patient has back pain going on for the last 2 months off and on and he came to the emergency department yesterday with worsening pain. Additional Remarks Patient is alert, now afebrile, no SOB. Review of Systems General Constitutional: Fatigue Cardiovascular Cardiac: MIRZA Objective Data Data 11/08/16 11/09/16 19:00 07:00 Intake Total 720 ml 1853 ml Output Total 1200 ml Balance 720 ml 653 ml Intake Oral 720 ml 600 ml IV Total 1253 ml Output Urine Total 1200 ml # Voids 3 # Bowel Movements 2 1 Vital Signs Date Time Temp Pulse Resp B/P Pulse Ox O2 Delivery O2 Flow Rate FiO2 11/09/16 08:10 100 11/09/16 08:10 Room Air 11/09/16 08:00 99.3 110 20 152/97 97 11/09/16 04:00 Room Air 11/09/16 04:00 99.3 98 20 153/91 99 11/09/16 00:00 Room Air 11/09/16 00:00 98.7 81 18 124/75 99 11/08/16 20:00 102.5 104 20 160/94 99 11/08/16 20:00 Room Air -: 11/06/16 0730 11/08/16 0920 Physical Exam General Appearance: No Acute Distress, Comfortable Eyes Eye Exam: Pupils Equal Throat Throat Exam: Oral Mucosa [place] & Moist Pulmonary Resp Exam: Breath Sounds Equal, No Distress, Rhonchi, Decreased Bases Cardiology CV Exam: Regular, Normal Sinus Rhythm Gastrointestinal/Abdomen GI Exam: Soft, Non-Tender, Bowel Sounds Present Extremeties Extremities Exam: No Edema Neurologic Neuro Exam: Alert, Awake, Oriented Psychiatric Psych Exam: Appropriate Responses Assessment/Plan Assessment Summary: MIKE/Acute Renal Failure Problem List: (1) Renal failure (2) Sepsis (3) Open wound of scrotum Plan Patient has been non oliguric. BP is stable and now spiking fever. On Zosyn and IVF. No new BMP, last Creatinine was around 7. Hgb. is low, serology PND. SPEP is PND, and iron stores normal. Creatinine is almost same. Continue antibiotics, only wound culture growing E.Coli. Seen by ID. Hco3 is low, add PO NaHco3. Problem Qualifiers (1) Renal failure: Qualified Code: N17.9 - Acute renal failure superimposed on chronic kidney disease, unspecified CKD stage, unspecified acute renal failure type (2) Sepsis: Qualified Code: A41.9 - Sepsis, due to unspecified organism Kwadwo Shah MD Nov 09, 2016 17:23
--- NOTE | 2016-11-09 17:31 | HHI.IDPN ---
Subjective Subjective Remarks Patient is a 50-year-old male, with known HIV, the last 23 years, states his last CD4 count was around 2, has been following with an HIV provider over the last 4 years, percent to the hospital complaining all severe buttock pain which has been present for the last 2 months. He apparently initially noted some blister looking lesions that are painful on his right buttock. It spread, and he thought it was no resolve on its own, but they persisted and he continued to have problem. He initially also had some right sided abdominal pain, and thought that it was his kidney stone. He has had previous problem with kidney stone. Patient stated that he passed the stone. He currently denies any dysuria, and denies any prior history of hematuria. He has not had any fever or chills prior to admission, but since admission patient has had fevers. Denies any respiratory complaint. Denies any diarrhea. He's had some on and off vomiting, and this is the reason why he has not been very compliant with his HIV medication. On presentation, patient was found to have an abnormal urinalysis. His creatinine was 7+. CT of the abdomen and pelvis showed some stones but there is no evidence of hydronephrosis. Chest x-ray is unremarkable. As noted to have multiple ulcers in the room right buttock, as well as in the perirectal area. Some ulcers noted also in the scrotal area. Infectious disease consultation has been requested to evaluate the patient. Notes reviewed Having fevers No new complaints UC mixed bacteria Wound C/S E coli BC negative CD4 <20 HSV 1 and 2 (+) VZV pending Antibiotics Zosyn Valtrex Lines PIV Past Medical History HIV, for 20+years, noncompliant with medications for the past 2 months Kidney stones Allergies: Coded Allergies: No Known Allergies (Unverified , 11/05/16) Objective . Vital Signs Date Time Temp Pulse Resp B/P Pulse Ox O2 Delivery O2 Flow Rate FiO2 11/09/16 08:10 100 11/09/16 08:10 Room Air 11/09/16 08:00 99.3 110 20 152/97 97 11/09/16 04:00 Room Air 11/09/16 04:00 99.3 98 20 153/91 99 11/09/16 00:00 Room Air 11/09/16 00:00 98.7 81 18 124/75 99 11/08/16 20:00 102.5 104 20 160/94 99 11/08/16 20:00 Room Air 11/08/16 11/08/16 11/09/16 15:00 23:00 07:00 Intake Total 720 ml 1493 ml 360 ml Output Total 800 ml 400 ml Balance 720 ml 693 ml -40 ml Intake Oral 720 ml 240 ml 360 ml IV Total 1253 ml Output Urine Total 800 ml 400 ml # Voids 3 # Bowel Movements 2 1 0 . Laboratory Tests Test 11/08/16 09:20 Sodium Level 139 MEQ/L Potassium Level 4.3 MEQ/L Chloride Level 112 MEQ/L Carbon Dioxide Level 17.2 MEQ/L Anion Gap 10 MEQ/L Blood Urea Nitrogen 50 MG/DL Creatinine 6.81 MG/DL Estimat Glomerular Filtration 10 ML/MIN Rate Random Glucose 91 MG/DL Calcium Level 7.4 MG/DL Protein Corrected Calcium 8.6 MG/DL Iron Level 25 MCG/DL Total Iron Binding Capacity 118 MCG/DL Percent Iron Saturation 21.3 % Ferritin 2491 NG/ML Total Protein 4.9 GM/DL Microbiology Date/Time Procedure Status Source Growth 11/07/16 14:09 Gram Stain - Final Complete Wound Buttock 11/07/16 14:09 Wound Culture - Final Complete Escherichia Coli Imaging Last Impressions Renal Ultrasound 11/05/16 0000 Signed Impressions: Service Date/Time: Saturday, November 05, 2016 19:17 - CONCLUSION: Diffusely echogenic kidneys indicating medical renal disease. Dorian Murry MD Chest X-Ray 11/05/16 0000 Signed Impressions: Service Date/Time: Saturday, November 05, 2016 17:07 - CONCLUSION: 1. Patchy consolidation versus atelectasis in the upper lung zone on the lateral view. 2. 1 cm nodular density in the left lower lung zone on the PA view only. Recommend noncontrast chest CT to evaluate for pulmonary nodule. Dorian Murry MD Abdomen/Pelvis CT 11/05/16 0000 Signed Impressions: Service Date/Time: Saturday, November 05, 2016 17:19 - CONCLUSION: 1. 4 mm calculus in the right renal pelvis/ureteropelvic junction with mild adjacent perinephric/periureteral stranding. No evidence of hydronephrosis. 2. 1 cm round hypodensity in the anterior right mid kidney statistically most likely to represent a cyst. 3. 3.7 cm hypodensity in the right lobe of the liver air the dome of the diaphragm. This finding is nonspecific on noncontrast CT. The most likely etiologies include hemangioma and cyst. It could be further evaluated with ultrasound nonemergent followup MRI of the abdomen. 4. Mild dilated proximal right common iliac artery. Dorian Murry MD Physical Exam GENERAL: awake and alert, not in respiratory distress. SKIN: Warm and dry. He has hyperpigmented macules in his UE. HEAD: Atraumatic. Normocephalic. No temporal wasting, or tenderness. EYES: [place] conjunctiva. No petechia or hemorrhage. No scleral icterus. No injection or drainage. EARS, NOSE AND THROAT: Nose without bleeding or purulent nasal discharge. Mucous membranes pink and moist. No oral lesions noted. No exudate. Has improving oral thrush. NECK: Trachea midline. Supple and not tender, no meningeal signs CARDIOVASCULAR: Regular rate and rhythm. No murmurs, rubs or gallops heard RESPIRATORY: Clear to auscultation. Breath sounds equal bilaterally. No rales , wheezing or rhonchi ABDOMEN: Soft, non-tender, nondistended. Bowel sounds present and normoactive. No guarding. No rebound. No organomegaly. EXTREMITIES: No clubbing, cyanosis, or edema.No joint effusion, has good ROM. No calf tenderness. Well perfused and warm. BACK: He has multiple large ulcers in his R buttock, and smaller ulcers in perirectal area, no surrounding cellulitis with some yellow drainage NEUROLOGICAL: Non-focal PSYCHIATRIC: Normal affect, calm and cooperative. LINE: No evidence of infection : No penile ulcer or drainage noted Assessment & Plan Remarks IMPRESSION Fevers likely due to UTI - has stones, patient stated he passed the stones, no obstruction on imaging studies - ?infection related to his chronic HIV - ulcers in buttock, doubt causing fevers, looks herpetic, ?VZV Renal failure HIV RECOMMENDATION Change Zosyn to Rocephin to cover UTI Get BC for AFB Blood for CMV PVR Wound care as you are doing Follow temps Renal following patient Monitor progress Bozena Chambers MD Nov 09, 2016 17:31
[2016-11-09] MEDS: cefTRIAXone INJ 2,000 MG in SODIUM CHLORIDE 0.9% INJ 100 ML IV SCH (17:39)
[2016-11-09] MEDS: SODIUM BICARBONATE 650 MG TAB PO SCH (20:53)
[2016-11-09] MEDS: ACETAMINOPHEN 325 MG TAB PO PRN (20:54)
[2016-11-09 22:31] LABS: ALBUMIN SPE 2.17 GM/DL (3.50-5.00); ALPHA 1 GLOBULIN 0.35 GM/DL (0.11-0.29); ALPHA 2 GLOBULIN 0.85 GM/DL (0.22-1.00); BETA GLOBULINS (SPE) 0.71 GM/DL (0.53-1.03)
[2016-11-10] VITALS: BP 138/87; PULSE 93; RESP 20; TEMP 98.3; O2SAT 100
[2016-11-10 04:00] VITALS: BP 158/96; PULSE 113; RESP 20; TEMP 101.7; O2SAT 99
[2016-11-10] MEDS: HEPARIN SODIUM - SQ 10,000 UNITS/ML VIAL SQ SCH ×3 (05:00→17:13)
[2016-11-10] MEDS: valACYclovir HCL 500 MG TAB PO SCH ×3 (05:42→21:06)
[2016-11-10] MEDS: ACETAMINOPHEN 325 MG TAB PO PRN ×2 (05:42→15:55)
[2016-11-10 08:00] VITALS: BP 155/94; PULSE 101; PULSE 103; RESP 22; TEMP 98.5; O2SAT 100
[2016-11-10] MEDS: DOCUSATE SODIUM 50 MG/SENNA 8.6 MG TAB PO SCH ×2 (09:00→21:00)
[2016-11-10] MEDS: SODIUM BICARBONATE 650 MG TAB PO SCH ×2 (09:06→21:05)
[2016-11-10] MEDS: SODIUM CHLORIDE 0.9% FLUSH 10 ML FLUSH IV FLUSH SCH ×2 (09:06→21:00)
[2016-11-10] MEDS: NYSTATIN SUSP 500,000 U/5 ML CUP SWISH-SWAL SCH ×4 (09:06→21:05)
--- NOTE | 2016-11-10 10:50 | HHI.PR ---
Subjective Remarks This is a 50yo male with PMHX of HIV who follows with Dr. Samuels as outpatient last seen 6 months ago who admits to being noncompliant with his HIV medications for the past 2 months and presents to [facility] ED with complaints of severe buttock pain secondary to multiple buttocks and perirectal wounds for the past two months. Patient denies seeking any previous treatment. Patient is not the best historian. He denies any worsening of the wounds. When asked why he chose to come in today, patient states he was "just tired of it". He admits to decreased oral intake. He also reports low back pain yesterday that he thought might be attributable to another kidney stone. He denies any back pain presently. He endorses nausea with nonbilious, nonbloody emesis for the past 2-3 days. He denies any fevers but reports one episode of chills. He denies any chest pain or SOB. He denies any previous history of kidney problems. He denies any hematuria, dysuria, hesitancy, slow stream or incomplete emptying. He reports urinating 3 to 4 x during the day and the same at night. In the ED, he has a temp of 100.6. White count is normal. Lactic acid is 0.8. His creatinine is extremely elevated at 7.83. 11/07: Stable in his bedroom discussed with nurse Miss Monreal the patient is febrile and refusing Acetaminophen, consulted ID specialist and seen by Doctor Bozena Chambers she thinks the Fever is related to UTI, has stones, Ulcers in the buttock looked more Herpetic, asked for HSV and VZV serologies, continue Zosyn but removed the Vancomycin, continue wound care and will follow. 11/08: No new issues. 11/09: Seen in his bedroom, was febrile yesterday 102F, Hemoglobin 7.6, Creatinine 6.81, CD4 count less than 20, HSV positive, UA positive for E Coli switched by ID specialist to Ceftriaxone. 11/10: Stable discussed with nurse Miss Bunn has Tachycardia, continue febrile and mild hypertension, continue on Ceftriaxone as per ID specialist. Objective Vital Signs Date Time Temp Pulse Resp B/P Pulse Ox O2 Delivery O2 Flow Rate FiO2 11/10/16 09:10 99 Room Air 11/10/16 08:00 103 11/10/16 04:00 101.7 113 20 158/96 99 11/10/16 00:00 98.3 93 20 138/87 100 11/09/16 20:05 117 11/09/16 20:00 102.2 108 20 156/94 99 11/09/16 19:40 Room Air 11/09/16 18:30 102.4 121 20 172/102 98 11/09/16 12:00 99.7 108 20 179/113 100 I/O 11/09/16 11/09/16 11/09/16 11/10/16 11/10/16 11/10/16 06:59 14:59 22:59 06:59 14:59 22:59 Intake Total 360 ml 2293 ml 480 ml 240 ml Output Total 400 ml 850 ml 100 ml 800 ml Balance -40 ml 1443 ml 380 ml -560 ml Intake Oral 360 ml 980 ml 480 ml 240 ml IV Total 1313 ml Output Urine Total 400 ml 850 ml 100 ml 800 ml # Bowel Movements 0 1 Result Diagram: 11/06/16 0730 11/08/16 0920 Imaging Last Impressions Renal Ultrasound 11/05/16 0000 Signed Impressions: Service Date/Time: Saturday, November 05, 2016 19:17 - CONCLUSION: Diffusely echogenic kidneys indicating medical renal disease. Dorian Murry MD Chest X-Ray 11/05/16 0000 Signed Impressions: Service Date/Time: Saturday, November 05, 2016 17:07 - CONCLUSION: 1. Patchy consolidation versus atelectasis in the upper lung zone on the lateral view. 2. 1 cm nodular density in the left lower lung zone on the PA view only. Recommend noncontrast chest CT to evaluate for pulmonary nodule. Dorian Murry MD Abdomen/Pelvis CT 11/05/16 0000 Signed Impressions: Service Date/Time: Saturday, November 05, 2016 17:19 - CONCLUSION: 1. 4 mm calculus in the right renal pelvis/ureteropelvic junction with mild adjacent perinephric/periureteral stranding. No evidence of hydronephrosis. 2. 1 cm round hypodensity in the anterior right mid kidney statistically most likely to represent a cyst. 3. 3.7 cm hypodensity in the right lobe of the liver air the dome of the diaphragm. This finding is nonspecific on noncontrast CT. The most likely etiologies include hemangioma and cyst. It could be further evaluated with ultrasound nonemergent followup MRI of the abdomen. 4. Mild dilated proximal right common iliac artery. Dorian Murry MD Procedures None Other Results Laboratory Tests Test 11/05/16 11/06/16 11/07/16 11/07/16 14:20 07:30 07:33 08:33 Hemoglobin A1c 6.2 % White Blood Count 5.5 TH/MM3 Red Blood Count 2.61 MIL/MM3 Hemoglobin 7.6 GM/DL Hematocrit 22.3 % Mean Corpuscular Volume 85.3 FL Mean Corpuscular Hemoglobin 28.9 PG Mean Corpuscular Hemoglobin 33.9 % Concent Red Cell Distribution Width 14.6 % Platelet Count 209 TH/MM3 Mean Platelet Volume 8.3 FL Neutrophils (%) (Auto) 86.4 % Lymphocytes (%) (Auto) 2.1 % Monocytes (%) (Auto) 10.6 % Eosinophils (%) (Auto) 0.3 % Basophils (%) (Auto) 0.6 % Neutrophils # (Auto) 4.8 TH/MM3 Lymphocytes # (Auto) 0.1 TH/MM3 Monocytes # (Auto) 0.6 TH/MM3 Eosinophils # (Auto) 0.0 TH/MM3 Basophils # (Auto) 0.0 TH/MM3 CBC Comment AUTO DIFF Differential Total Cells 100 Counted Neutrophils % (Manual) 70 % Band Neutrophils % 20 % Lymphocytes % 2 % Monocytes % 8 % Neutrophils # (Manual) 5.0 TH/MM3 Differential Comment FINAL DIFF MANUAL Platelet Estimate NORMAL Platelet Morphology Comment NORMAL Ovalocytes 1+ Total Bilirubin 0.3 MG/DL Aspartate Amino Transf 23 U/L (AST/SGOT) Alanine Aminotransferase 13 U/L (ALT/SGPT) Alkaline Phosphatase 46 U/L Rapid Plasma Reagin NON-REACTIVE Complement C3 133 MG/DL Complement C4 34 MG/DL Anti-Proteinase 3 (c-ANCA) LESS THAN 1.0 AI Anti-Myeloperoxidase Ab LESS THAN 1.0 (p-ANCA) AI Absolute Lymphocytes (Cell 155 Immunity Percent CD3 Cells 58 % Absolute CD3 Count 90 Percent CD3-/CD16+/CD56+ Cells 36 % Absolute CD3-/CD16+/CD56+ 61 Count Percent CD4 Cells 3 % Absolute CD4 Count LESS THAN 20 T-[place]/Suppressor Ratio 0.1 Percent CD8 Cells 53 % Absolute CD8 Count 74 Percent CD19 Cells 5 % Absolute CD19 Count LESS THAN 20 Phosphorus Level 4.4 MG/DL Total Creatine Kinase 131 U/L Random Vancomycin Level 10.9 COMMENT Test 11/07/16 11/07/16 11/08/16 15:16 17:33 09:20 Anti-Nuclear Antibody Screen NEG Herpes Simplex Virus I IgG Ab Positive Index Herpes Simplex Virus II IgG Positive Index Sodium Level 139 MEQ/L Potassium Level 4.3 MEQ/L Chloride Level 112 MEQ/L Carbon Dioxide Level 17.2 MEQ/L Anion Gap 10 MEQ/L Blood Urea Nitrogen 50 MG/DL Creatinine 6.81 MG/DL Estimat Glomerular Filtration 10 ML/MIN Rate Random Glucose 91 MG/DL Calcium Level 7.4 MG/DL Protein Corrected Calcium 8.6 MG/DL Iron Level 25 MCG/DL Total Iron Binding Capacity 118 MCG/DL Percent Iron Saturation 21.3 % Ferritin 2491 NG/ML Total Protein 4.9 GM/DL Albumin 2.17 GM/DL Albumin/Globulin Ratio 0.80 Gjoks-1-Yqsuninfo 0.35 GM/DL Lavji-9-Vxnfjcahg 0.85 GM/DL Beta Globulins 0.71 GM/DL Gamma Globulins 0.82 GM/DL Objective Remarks GENERAL: This is a well-nourished, well-developed patient, in no apparent distress. Awake and alert. ENT: Nose without bleeding, purulent drainage. (+)Oral thrush. Airway patent. NECK: Trachea midline. No JVD or lymphadenopathy. Supple, nontender, no meningeal signs. CARDIOVASCULAR: Regular rate and rhythm without murmurs, gallops, has tachycardia today. RESPIRATORY: Clear to auscultation. Breath sounds equal bilaterally. No wheezes , rales, or rhonchi. GASTROINTESTINAL: Abdomen soft, non-tender, nondistended. MUSCULOSKELETAL: Extremities without clubbing, cyanosis, or edema. No joint tenderness, effusion, or edema noted. No calf tenderness. NEUROLOGICAL: Awake and alert. Able to move all extremities. Medications and IVs Current Medications Medications (Trade) Dose Ordered Sig/Nyla Route Start Time Stop Time Status Last Admin (NS Flush) 2 ml UNSCH PRN IV FLUSH 11/05/16 16:15 (NS Flush) 2 ml BID IV FLUSH 11/05/16 21:00 11/10/16 09:06 (Tylenol) 650 mg Q4H PRN PO 11/05/16 16:15 11/10/16 05:42 (Zofran Inj) 4 mg Q6H PRN IVP 11/05/16 16:15 (Heparin Inj) 5,000 units Q12H SQ 11/05/16 17:00 11/07/16 05:00 (Narcan Inj) 0.4 mg UNSCH PRN IV 11/05/16 16:15 (Dee-Colace) 1 tab BID PO 11/05/16 21:00 11/05/16 20:05 (Milk Of Magnesia Liq) 30 ml Q12H PRN PO 11/05/16 16:15 (Senokot) 17.2 mg Q12H PRN PO 11/05/16 16:15 (Dulcolax Supp) 10 mg DAILY PRN RECTAL 11/05/16 16:15 (Lactulose Liq) 30 ml DAILY PRN PO 11/05/16 16:15 ([place] 7.5-325 Mg) 1 tab Q4H PRN PO 11/05/16 16:15 (Mycostatin Liq) 5 ml QID SWISH-SWAL 11/05/16 18:00 11/10/16 09:06 (Valtrex) 500 mg Q8HR PO 11/08/16 09:15 11/10/16 05:42 Sodium Bicarbonate 650 mg 650 mg Q12HR PO 11/09/16 21:00 11/10/16 09:06 (Rocephin Inj/NS Inj) 100 ml @ 200 mls/hr Q24H IV 11/09/16 18:00 11/09/16 17:39 A/P Assessment and Plan 50yo male with PMHX of HIV who follows with Dr. Samuels as outpatient last seen 6 months ago who admits to being noncompliant with his HIV medications for the past 2 months and presents to [facility] ED with complaints of severe buttock pain secondary to multiple buttock and perirectal wounds for the past two months. 1. Severe sepsis secondary to UTI : Improving, recommended by ID to switch from Zosyn to Ceftriaxone today to cover E coli in Urine. + Immunocompromised, h/o HIV previously on HAART but noncompliant for the past two months, HSV positive 2. ARF initial diagnosis but may have CKD awaiting final recommendations by Nephrology specialist. creatinine 7.83, Mild improvement to 6.75. he has history of Kidney stones. CT abd/pelvis r/o obstructive nephrolithiasis, continue IV fluids and avoid Nephrotoxic agents. Consulted Nephrology specialist, once stable Nephrology consider to get MRI or CT angiogram to evaluate the lesion in the right Kidney, 2. 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 3. HIV CD4 count less than 20 patient admits to being noncompliant with his meds for the past 2 mos. 4. Oral Thrush Nystatin s/s 5. Anemia, normocytic, normochromic hemoglobin 7.6 today likely secondary to CKD 6. Tachycardia and mild hypertension started on Beta tresa Metoprolol 12.5 mg BID and follow DVT prophylaxis Heparin sq Discussed with Patient in the room, all questions answered to the best of my abilities Discharge Planning Not yet cleared by specialists. Ze Chan MD Nov 10, 2016 10:49 Ze Chan MD Nov 10, 2016 10:49
[2016-11-10 12:00] VITALS: BP 155/98; PULSE 125; RESP 22; TEMP 98.5; O2SAT 100
--- NOTE | 2016-11-10 12:45 | HHI.NPPN ---
Subjective History of Present Illness 50-year-old male with past medical history of HIV disease for more than 20 years and history of renal stone who came to the hospital with complaint of back pain. The patient has back pain going on for the last 2 months off and on and he came to the emergency department yesterday with worsening pain. Additional Remarks Patient is alert, doing better, now eating, no SOB. Review of Systems General Constitutional: Fatigue Cardiovascular Cardiac: MIRZA Objective Data Data 11/09/16 11/10/16 18:59 06:59 Intake Total 2293 ml 720 ml Output Total 850 ml 900 ml Balance 1443 ml -180 ml Intake Oral 980 ml 720 ml IV Total 1313 ml Output Urine Total 850 ml 900 ml # Bowel Movements 1 Vital Signs Date Time Temp Pulse Resp B/P Pulse Ox O2 Delivery O2 Flow Rate FiO2 11/10/16 09:10 99 Room Air 11/10/16 08:00 98.5 101 22 155/94 100 11/10/16 08:00 103 11/10/16 04:00 101.7 113 20 158/96 99 11/10/16 00:00 98.3 93 20 138/87 100 11/09/16 20:05 117 11/09/16 20:00 102.2 108 20 156/94 99 11/09/16 19:40 Room Air 11/09/16 18:30 102.4 121 20 172/102 98 -: 11/06/16 0730 11/08/16 0920 Physical Exam General Appearance: No Acute Distress, Comfortable Eyes Eye Exam: Pupils Equal Throat Throat Exam: Oral Mucosa [place] & Moist Pulmonary Resp Exam: Breath Sounds Equal, No Distress, Rhonchi, Decreased Bases Cardiology CV Exam: Regular, Normal Sinus Rhythm Gastrointestinal/Abdomen GI Exam: Soft, Non-Tender, Bowel Sounds Present Extremeties Extremities Exam: No Edema Neurologic Neuro Exam: Alert, Awake, Oriented Psychiatric Psych Exam: Appropriate Responses Assessment/Plan Assessment Summary: MIKE/Acute Renal Failure Problem List: (1) Renal failure (2) Sepsis (3) Open wound of scrotum Plan Patient has been non oliguric. BP is stable and now spiking fever. On Zosyn and IVF. Hgb. is low, serology PND. SPEP is PND, and iron stores normal. Creatinine is almost same. Continue antibiotics, only wound culture growing E.Coli. Seen by ID. Hco3 is low, added PO NaHco3. BMP ordered for today. If no improvement, possible kidney Biopsy once infection is controlled. Problem Qualifiers (1) Renal failure: Qualified Code: N17.9 - Acute renal failure superimposed on chronic kidney disease, unspecified CKD stage, unspecified acute renal failure type (2) Sepsis: Qualified Code: A41.9 - Sepsis, due to unspecified organism Kwadwo Shah MD Nov 10, 2016 12:44
[2016-11-10 13:31] LABS: BICARBONATE 18.7 MEQ/L (21.0-32.0); POTASSIUM 3.6 MEQ/L (3.5-5.1)
--- NOTE | 2016-11-10 13:57 | HHI.IDPN ---
Subjective Subjective Remarks Patient is a 50-year-old male, with known HIV, the last 23 years, states his last CD4 count was around 2, has been following with an HIV provider over the last 4 years, percent to the hospital complaining all severe buttock pain which has been present for the last 2 months. He apparently initially noted some blister looking lesions that are painful on his right buttock. It spread, and he thought it was no resolve on its own, but they persisted and he continued to have problem. He initially also had some right sided abdominal pain, and thought that it was his kidney stone. He has had previous problem with kidney stone. Patient stated that he passed the stone. He currently denies any dysuria, and denies any prior history of hematuria. He has not had any fever or chills prior to admission, but since admission patient has had fevers. Denies any respiratory complaint. Denies any diarrhea. He's had some on and off vomiting, and this is the reason why he has not been very compliant with his HIV medication. On presentation, patient was found to have an abnormal urinalysis. His creatinine was 7+. CT of the abdomen and pelvis showed some stones but there is no evidence of hydronephrosis. Chest x-ray is unremarkable. As noted to have multiple ulcers in the room right buttock, as well as in the perirectal area. Some ulcers noted also in the scrotal area. Infectious disease consultation has been requested to evaluate the patient. Notes reviewed Having fevers, 101+ at 4 am No new complaints UC mixed bacteria Wound C/S E coli BC negative CD4 <20 HSV 1 and 2 (+) VZV pending Creatinine still high, has good UO Antibiotics Rocephin Valtrex Lines PIV Past Medical History HIV, for 20+years, noncompliant with medications for the past 2 months Kidney stones Allergies: Coded Allergies: No Known Allergies (Unverified , 11/05/16) Objective . Vital Signs Date Time Temp Pulse Resp B/P Pulse Ox O2 Delivery O2 Flow Rate FiO2 11/10/16 12:00 98.5 125 22 155/98 100 11/10/16 09:10 99 Room Air 11/10/16 08:00 98.5 101 22 155/94 100 11/10/16 08:00 103 11/10/16 04:00 101.7 113 20 158/96 99 11/10/16 00:00 98.3 93 20 138/87 100 11/09/16 20:05 117 11/09/16 20:00 102.2 108 20 156/94 99 11/09/16 19:40 Room Air 11/09/16 18:30 102.4 121 20 172/102 98 11/09/16 11/09/16 11/10/16 15:00 23:00 07:00 Intake Total 2293 ml 480 ml 240 ml Output Total 850 ml 100 ml 800 ml Balance 1443 ml 380 ml -560 ml Intake Oral 980 ml 480 ml 240 ml IV Total 1313 ml Output Urine Total 850 ml 100 ml 800 ml # Bowel Movements 1 . Laboratory Tests Test 11/10/16 12:34 Sodium Level 138 MEQ/L Potassium Level 3.6 MEQ/L Chloride Level 108 MEQ/L Carbon Dioxide Level 18.7 MEQ/L Anion Gap 11 MEQ/L Blood Urea Nitrogen 44 MG/DL Creatinine 6.75 MG/DL Estimat Glomerular Filtration 11 ML/MIN Rate Random Glucose 134 MG/DL Calcium Level 8.4 MG/DL Microbiology Date/Time Procedure Status Source Growth 11/07/16 14:09 Gram Stain - Final Complete Wound Buttock 11/07/16 14:09 Wound Culture - Final Complete Escherichia Coli 11/10/16 12:34 Mycobacterial Culture Received Blood Peripheral Pending Imaging Last Impressions Renal Ultrasound 11/05/16 0000 Signed Impressions: Service Date/Time: Saturday, November 05, 2016 19:17 - CONCLUSION: Diffusely echogenic kidneys indicating medical renal disease. Dorian Murry MD Chest X-Ray 11/05/16 0000 Signed Impressions: Service Date/Time: Saturday, November 05, 2016 17:07 - CONCLUSION: 1. Patchy consolidation versus atelectasis in the upper lung zone on the lateral view. 2. 1 cm nodular density in the left lower lung zone on the PA view only. Recommend noncontrast chest CT to evaluate for pulmonary nodule. Dorian Murry MD Abdomen/Pelvis CT 11/05/16 0000 Signed Impressions: Service Date/Time: Saturday, November 05, 2016 17:19 - CONCLUSION: 1. 4 mm calculus in the right renal pelvis/ureteropelvic junction with mild adjacent perinephric/periureteral stranding. No evidence of hydronephrosis. 2. 1 cm round hypodensity in the anterior right mid kidney statistically most likely to represent a cyst. 3. 3.7 cm hypodensity in the right lobe of the liver air the dome of the diaphragm. This finding is nonspecific on noncontrast CT. The most likely etiologies include hemangioma and cyst. It could be further evaluated with ultrasound nonemergent followup MRI of the abdomen. 4. Mild dilated proximal right common iliac artery. Dorian Murry MD Physical Exam GENERAL: awake and alert, not in respiratory distress. SKIN: Warm and dry. He has hyperpigmented macules in his UE. HEAD: Atraumatic. Normocephalic. No temporal wasting, or tenderness. EYES: [employer] conjunctiva. No petechia or hemorrhage. No scleral icterus. No injection or drainage. EARS, NOSE AND THROAT: Nose without bleeding or purulent nasal discharge. Mucous membranes pink and moist. No oral lesions noted. No exudate. Has improving oral thrush. NECK: Trachea midline. Supple and not tender, no meningeal signs CARDIOVASCULAR: Regular rate and rhythm. No murmurs, rubs or gallops heard RESPIRATORY: Clear to auscultation. Breath sounds equal bilaterally. No rales , wheezing or rhonchi ABDOMEN: Soft, non-tender, nondistended. Bowel sounds present and normoactive. No guarding. No rebound. No organomegaly. EXTREMITIES: No clubbing, cyanosis, or edema.No joint effusion, has good ROM. No calf tenderness. Well perfused and warm. BACK: He has multiple large ulcers in his R buttock, and smaller ulcers in perirectal area, no surrounding cellulitis with some yellow drainage NEUROLOGICAL: Non-focal PSYCHIATRIC: Normal affect, calm and cooperative. LINE: No evidence of infection : No penile ulcer or drainage noted Assessment & Plan Remarks IMPRESSION Fevers likely due to UTI - has stones, patient stated he passed the stones, no obstruction on imaging studies - ?infection related to his chronic HIV - ulcers in buttock, doubt causing fevers, looks herpetic, ?VZV Renal failure HIV RECOMMENDATION Continue Rocephin to cover UTI Get BC for AFB Blood for CMV PVR Wound care as you are doing Follow temps Renal following patient Monitor progress If temps continues will start empiric LULU Rx: Levaquin and Zithromax Bozena Chambers MD Nov 10, 2016 13:57
[2016-11-10 16:00] VITALS: BP 175/83; PULSE 120; RESP 22; TEMP 102.8; O2SAT 98
[2016-11-10] MEDS: cefTRIAXone INJ 2,000 MG in SODIUM CHLORIDE 0.9% INJ 100 ML IV SCH (17:13)
[2016-11-10] MEDS: METOPROLOL TARTRATE 25 MG TAB PO SCH (17:24)
[2016-11-10 20:00] VITALS: BP 136/88; PULSE 93; PULSE 97; RESP 18; TEMP 99.1; O2SAT 100
[2016-11-11] VITALS (7 sets, daily range): BP systolic 148–166; BP diastolic 76–99; PULSE 98–118; RESP 16–20; TEMP 99.2–101.3; O2SAT 99–100
[2016-11-11] MEDS: HEPARIN SODIUM - SQ 10,000 UNITS/ML VIAL SQ SCH ×2 (05:00→15:39)
[2016-11-11] MEDS: valACYclovir HCL 500 MG TAB PO SCH ×3 (06:13→21:58)
[2016-11-11] MEDS: DOCUSATE SODIUM 50 MG/SENNA 8.6 MG TAB PO SCH ×2 (08:23→21:00)
[2016-11-11] MEDS: SODIUM BICARBONATE 650 MG TAB PO SCH ×2 (08:23→21:57)
[2016-11-11] MEDS: NYSTATIN SUSP 500,000 U/5 ML CUP SWISH-SWAL SCH ×4 (08:23→21:58)
[2016-11-11] MEDS: METOPROLOL TARTRATE 25 MG TAB PO SCH ×2 (08:23→21:56)
[2016-11-11] MEDS: SODIUM CHLORIDE 0.9% FLUSH 10 ML FLUSH IV FLUSH SCH ×2 (08:24→21:58)
--- NOTE | 2016-11-11 11:01 | HHI.PR ---
Subjective Remarks This is a 50yo male with PMHX of HIV who follows with Dr. Samuels as outpatient last seen 6 months ago who admits to being noncompliant with his HIV medications for the past 2 months and presents to [facility] ED with complaints of severe buttock pain secondary to multiple buttocks and perirectal wounds for the past two months. Patient denies seeking any previous treatment. Patient is not the best historian. He denies any worsening of the wounds. When asked why he chose to come in today, patient states he was "just tired of it". He admits to decreased oral intake. He also reports low back pain yesterday that he thought might be attributable to another kidney stone. He denies any back pain presently. He endorses nausea with nonbilious, nonbloody emesis for the past 2-3 days. He denies any fevers but reports one episode of chills. He denies any chest pain or SOB. He denies any previous history of kidney problems. He denies any hematuria, dysuria, hesitancy, slow stream or incomplete emptying. He reports urinating 3 to 4 x during the day and the same at night. In the ED, he has a temp of 100.6. White count is normal. Lactic acid is 0.8. His creatinine is extremely elevated at 7.83. 11/07: Stable in his bedroom discussed with nurse Miss Monreal the patient is febrile and refusing Acetaminophen, consulted ID specialist and seen by Doctor Bozena Chambers she thinks the Fever is related to UTI, has stones, Ulcers in the buttock looked more Herpetic, asked for HSV and VZV serologies, continue Zosyn but removed the Vancomycin, continue wound care and will follow. 11/08: No new issues. 11/09: Seen in his bedroom, was febrile yesterday 102F, Hemoglobin 7.6, Creatinine 6.81, CD4 count less than 20, HSV positive, UA positive for E Coli switched by ID specialist to Ceftriaxone. 11/10: Stable discussed with nurse Miss Bunn has Tachycardia, continue febrile and mild hypertension, continue on Ceftriaxone as per ID specialist. 11/11: Seen in his bedroom, no nausea, vomit or diarrhea. discussed with nurse Miss Matute no new issues. Objective Vital Signs Date Time Temp Pulse Resp B/P Pulse Ox O2 Delivery O2 Flow Rate FiO2 11/11/16 08:00 99.5 107 20 153/80 100 11/11/16 08:00 Room Air 11/11/16 04:00 99.2 118 20 159/98 100 11/11/16 00:00 99.3 98 18 166/99 100 11/10/16 20:00 93 11/10/16 20:00 99.1 97 18 136/88 100 11/10/16 19:47 Room Air 11/10/16 16:00 102.8 120 22 175/83 98 11/10/16 12:00 98.5 125 22 155/98 100 I/O 11/10/16 11/10/16 11/10/16 11/11/16 11/11/16 11/11/16 07:00 15:00 23:00 07:00 15:00 23:00 Intake Total 240 ml 480 ml 240 ml 240 ml Output Total 800 ml 900 ml 750 ml 700 ml Balance -560 ml -420 ml -510 ml -460 ml Intake Oral 240 ml 480 ml 240 ml 240 ml Output Urine Total 800 ml 900 ml 750 ml 700 ml # Bowel Movements 1 2 Result Diagram: 11/10/16 1234 Imaging Last Impressions Renal Ultrasound 11/05/16 0000 Signed Impressions: Service Date/Time: Saturday, November 05, 2016 19:17 - CONCLUSION: Diffusely echogenic kidneys indicating medical renal disease. Dorian Murry MD Chest X-Ray 11/05/16 0000 Signed Impressions: Service Date/Time: Saturday, November 05, 2016 17:07 - CONCLUSION: 1. Patchy consolidation versus atelectasis in the upper lung zone on the lateral view. 2. 1 cm nodular density in the left lower lung zone on the PA view only. Recommend noncontrast chest CT to evaluate for pulmonary nodule. Dorian Murry MD Abdomen/Pelvis CT 11/05/16 0000 Signed Impressions: Service Date/Time: Saturday, November 05, 2016 17:19 - CONCLUSION: 1. 4 mm calculus in the right renal pelvis/ureteropelvic junction with mild adjacent perinephric/periureteral stranding. No evidence of hydronephrosis. 2. 1 cm round hypodensity in the anterior right mid kidney statistically most likely to represent a cyst. 3. 3.7 cm hypodensity in the right lobe of the liver air the dome of the diaphragm. This finding is nonspecific on noncontrast CT. The most likely etiologies include hemangioma and cyst. It could be further evaluated with ultrasound nonemergent followup MRI of the abdomen. 4. Mild dilated proximal right common iliac artery. Dorian Murry MD Procedures None Other Results Laboratory Tests Test 11/06/16 11/07/16 11/07/16 11/07/16 07:30 07:33 08:33 15:16 Rapid Plasma Reagin NON-REACTIVE Complement C3 133 MG/DL Complement C4 34 MG/DL Anti-Proteinase 3 (c-ANCA) LESS THAN 1.0 AI Anti-Myeloperoxidase Ab LESS THAN 1.0 (p-ANCA) AI Absolute Lymphocytes (Cell 155 Immunity Percent CD3 Cells 58 % Absolute CD3 Count 90 Percent CD3-/CD16+/CD56+ Cells 36 % Absolute CD3-/CD16+/CD56+ 61 Count Percent CD4 Cells 3 % Absolute CD4 Count LESS THAN 20 T-[place]/Suppressor Ratio 0.1 Percent CD8 Cells 53 % Absolute CD8 Count 74 Percent CD19 Cells 5 % Absolute CD19 Count LESS THAN 20 Phosphorus Level 4.4 MG/DL Total Creatine Kinase 131 U/L Random Vancomycin Level 10.9 COMMENT Anti-Nuclear Antibody Screen NEG Test 11/07/16 11/08/16 11/10/16 17:33 09:20 12:34 Herpes Simplex Virus I IgG Ab Positive Index Herpes Simplex Virus II IgG Positive Index Varicella-Zoster IgM Antibody 0.16 Total Protein 4.9 GM/DL Protein Corrected Calcium 8.6 MG/DL Iron Level 25 MCG/DL Total Iron Binding Capacity 118 MCG/DL Percent Iron Saturation 21.3 % Ferritin 2491 NG/ML Albumin 2.17 GM/DL Albumin/Globulin Ratio 0.80 Fftag-2-Nmocaovms 0.35 GM/DL Wneze-4-Vhpylkism 0.85 GM/DL Beta Globulins 0.71 GM/DL Gamma Globulins 0.82 GM/DL Electrophoresis Pathologist Comment Sodium Level 138 MEQ/L Potassium Level 3.6 MEQ/L Chloride Level 108 MEQ/L Carbon Dioxide Level 18.7 MEQ/L Anion Gap 11 MEQ/L Blood Urea Nitrogen 44 MG/DL Creatinine 6.75 MG/DL Estimat Glomerular Filtration 11 ML/MIN Rate Random Glucose 134 MG/DL Calcium Level 8.4 MG/DL Objective Remarks GENERAL: This is a well-nourished, well-developed patient, in no apparent distress. Awake and alert. ENT: Nose without bleeding, purulent drainage. (+)Oral thrush. Airway patent. NECK: Trachea midline. No JVD or lymphadenopathy. Supple, nontender, no meningeal signs. CARDIOVASCULAR: Regular rate and rhythm without murmurs, gallops, has tachycardia today. RESPIRATORY: Clear to auscultation. Breath sounds equal bilaterally. No wheezes , rales, or rhonchi. GASTROINTESTINAL: Abdomen soft, non-tender, nondistended. MUSCULOSKELETAL: Extremities without clubbing, cyanosis, or edema. No joint tenderness, effusion, or edema noted. No calf tenderness. NEUROLOGICAL: Awake and alert. Able to move all extremities. Medications and IVs Current Medications Medications (Trade) Dose Ordered Sig/Nyla Route Start Time Stop Time Status Last Admin (NS Flush) 2 ml UNSCH PRN IV FLUSH 11/05/16 16:15 (NS Flush) 2 ml BID IV FLUSH 11/05/16 21:00 11/11/16 08:24 (Tylenol) 650 mg Q4H PRN PO 11/05/16 16:15 11/10/16 15:55 (Zofran Inj) 4 mg Q6H PRN IVP 11/05/16 16:15 (Heparin Inj) 5,000 units Q12H SQ 11/05/16 17:00 11/07/16 05:00 (Narcan Inj) 0.4 mg UNSCH PRN IV 11/05/16 16:15 (Dee-Colace) 1 tab BID PO 11/05/16 21:00 11/11/16 08:23 (Milk Of Magnesia Liq) 30 ml Q12H PRN PO 11/05/16 16:15 (Senokot) 17.2 mg Q12H PRN PO 11/05/16 16:15 (Dulcolax Supp) 10 mg DAILY PRN RECTAL 11/05/16 16:15 (Lactulose Liq) 30 ml DAILY PRN PO 11/05/16 16:15 ([place] 7.5-325 Mg) 1 tab Q4H PRN PO 11/05/16 16:15 (Mycostatin Liq) 5 ml QID SWISH-SWAL 11/05/16 18:00 11/11/16 08:23 (Valtrex) 500 mg Q8HR PO 11/08/16 09:15 11/11/16 06:13 Sodium Bicarbonate 650 mg 650 mg Q12HR PO 11/09/16 21:00 11/11/16 08:23 (Rocephin Inj/NS Inj) 100 ml @ 200 mls/hr Q24H IV 11/09/16 18:00 11/10/16 17:13 (Lopressor) 12.5 mg Q12HR PO 11/10/16 18:00 11/11/16 08:23 A/P Assessment and Plan 50yo male with PMHX of HIV who follows with Dr. Samuels as outpatient last seen 6 months ago who admits to being noncompliant with his HIV medications for the past 2 months and presents to [facility] ED with complaints of severe buttock pain secondary to multiple buttock and perirectal wounds for the past two months. 1. Severe sepsis secondary to UTI : Improving, recommended by ID to switch from Zosyn to Ceftriaxone today to cover E coli in Urine. 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 the patient is febrile today. 2. ARF initial diagnosis but may have CKD awaiting final recommendations by Nephrology specialist. creatinine 7.83, Mild improvement to 6.75. he has history of Kidney stones. CT abd/pelvis r/o obstructive nephrolithiasis, continue IV fluids and avoid Nephrotoxic agents. Consulted Nephrology specialist, once stable Nephrology consider to get MRI or CT angiogram to evaluate the lesion in the right Kidney, 3. HIV CD4 count less than 20 patient admits to being noncompliant with his meds for the past 2 mos. 4. Oral Thrush Nystatin s/s Improving. 5. Anemia, normocytic, normochromic hemoglobin 7.6 today likely secondary to CKD 6. Tachycardia and mild hypertension started on Beta tresa Metoprolol 12.5 mg BID and follow better control 7. 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 DVT prophylaxis Heparin sq Discussed with Patient in the room, all questions answered to the best of my abilities Discussed with nurse Miss Matute no new issues Discharge Planning Not yet cleared by specialists. Ze Chan MD Nov 11, 2016 11:01
--- NOTE | 2016-11-11 13:42 | HHI.IDPN ---
Subjective Subjective Remarks Patient is a 50-year-old male, with known HIV, the last 23 years, states his last CD4 count was around 2, has been following with an HIV provider over the last 4 years, percent to the hospital complaining all severe buttock pain which has been present for the last 2 months. He apparently initially noted some blister looking lesions that are painful on his right buttock. It spread, and he thought it was no resolve on its own, but they persisted and he continued to have problem. He initially also had some right sided abdominal pain, and thought that it was his kidney stone. He has had previous problem with kidney stone. Patient stated that he passed the stone. He currently denies any dysuria, and denies any prior history of hematuria. He has not had any fever or chills prior to admission, but since admission patient has had fevers. Denies any respiratory complaint. Denies any diarrhea. He's had some on and off vomiting, and this is the reason why he has not been very compliant with his HIV medication. On presentation, patient was found to have an abnormal urinalysis. His creatinine was 7+. CT of the abdomen and pelvis showed some stones but there is no evidence of hydronephrosis. Chest x-ray is unremarkable. As noted to have multiple ulcers in the room right buttock, as well as in the perirectal area. Some ulcers noted also in the scrotal area. Infectious disease consultation has been requested to evaluate the patient. Notes reviewed Still with intermittent fevers No new complaints HSV 1 nd 2 (+) VZV IgM negative, IgG pending BC negative UC mixed bacteria Wound C/S E coli BC negative CD4 <20 Creatinine still high, has good UO CMV PCR pending Antibiotics Rocephin Valtrex Lines PIV Past Medical History HIV, for 20+years, noncompliant with medications for the past 2 months Kidney stones Allergies: Coded Allergies: No Known Allergies (Unverified , 11/05/16) Objective . Vital Signs Date Time Temp Pulse Resp B/P Pulse Ox O2 Delivery O2 Flow Rate FiO2 11/11/16 12:00 101.3 106 18 148/84 100 11/11/16 12:00 Room Air 11/11/16 08:00 99.5 107 20 153/80 100 11/11/16 08:00 Room Air 11/11/16 04:00 99.2 118 20 159/98 100 11/11/16 00:00 99.3 98 18 166/99 100 11/10/16 20:00 93 11/10/16 20:00 99.1 97 18 136/88 100 11/10/16 19:47 Room Air 11/10/16 16:00 102.8 120 22 175/83 98 11/10/16 11/10/16 11/11/16 14:59 22:59 06:59 Intake Total 480 ml 240 ml 240 ml Output Total 900 ml 750 ml 700 ml Balance -420 ml -510 ml -460 ml Intake Oral 480 ml 240 ml 240 ml Output Urine Total 900 ml 750 ml 700 ml # Bowel Movements 1 2 . Laboratory Tests Test 11/10/16 12:34 Sodium Level 138 MEQ/L Potassium Level 3.6 MEQ/L Chloride Level 108 MEQ/L Carbon Dioxide Level 18.7 MEQ/L Anion Gap 11 MEQ/L Blood Urea Nitrogen 44 MG/DL Creatinine 6.75 MG/DL Estimat Glomerular Filtration 11 ML/MIN Rate Random Glucose 134 MG/DL Calcium Level 8.4 MG/DL Microbiology Date/Time Procedure Status Source Growth 11/10/16 12:34 Mycobacterial Culture Received Blood Peripheral Pending Imaging Last Impressions Renal Ultrasound 11/05/16 0000 Signed Impressions: Service Date/Time: Saturday, November 05, 2016 19:17 - CONCLUSION: Diffusely echogenic kidneys indicating medical renal disease. Dorian Murry MD Chest X-Ray 11/05/16 0000 Signed Impressions: Service Date/Time: Saturday, November 05, 2016 17:07 - CONCLUSION: 1. Patchy consolidation versus atelectasis in the upper lung zone on the lateral view. 2. 1 cm nodular density in the left lower lung zone on the PA view only. Recommend noncontrast chest CT to evaluate for pulmonary nodule. Dorian Murry MD Abdomen/Pelvis CT 11/05/16 0000 Signed Impressions: Service Date/Time: Saturday, November 05, 2016 17:19 - CONCLUSION: 1. 4 mm calculus in the right renal pelvis/ureteropelvic junction with mild adjacent perinephric/periureteral stranding. No evidence of hydronephrosis. 2. 1 cm round hypodensity in the anterior right mid kidney statistically most likely to represent a cyst. 3. 3.7 cm hypodensity in the right lobe of the liver air the dome of the diaphragm. This finding is nonspecific on noncontrast CT. The most likely etiologies include hemangioma and cyst. It could be further evaluated with ultrasound nonemergent followup MRI of the abdomen. 4. Mild dilated proximal right common iliac artery. Dorian Murry MD Physical Exam GENERAL: awake and alert, not in respiratory distress. SKIN: Warm and dry. He has hyperpigmented macules in his UE. HEAD: Atraumatic. Normocephalic. No temporal wasting, or tenderness. EYES: [place] conjunctiva. No petechia or hemorrhage. No scleral icterus. No injection or drainage. EARS, NOSE AND THROAT: Nose without bleeding or purulent nasal discharge. Mucous membranes pink and moist. No oral lesions noted. No exudate. Has improving oral thrush. NECK: Trachea midline. Supple and not tender, no meningeal signs CARDIOVASCULAR: Regular rate and rhythm. No murmurs, rubs or gallops heard RESPIRATORY: Clear to auscultation. Breath sounds equal bilaterally. No rales , wheezing or rhonchi ABDOMEN: Soft, non-tender, nondistended. Bowel sounds present and normoactive. No guarding. No rebound. No organomegaly. EXTREMITIES: No clubbing, cyanosis, or edema.No joint effusion, has good ROM. No calf tenderness. Well perfused and warm. BACK: He has multiple large ulcers in his R buttock, and smaller ulcers in perirectal area, no surrounding cellulitis with some yellow drainage NEUROLOGICAL: Non-focal PSYCHIATRIC: Normal affect, calm and cooperative. LINE: No evidence of infection : No penile ulcer or drainage noted Assessment & Plan Remarks IMPRESSION Fevers likely due to UTI - has stones, patient stated he passed the stones, no obstruction on imaging studies - ?infection related to his chronic HIV - ulcers in buttock, doubt causing fevers, looks herpetic, ?VZV Renal failure HIV RECOMMENDATION Continue Rocephin to cover UTI ESR, CRP Leva/Zithromax empiric for LULU If no change will stop Rocephin tomorrow Wound care Follow temps Monitor progress Will D/W renal about PCP prophylaxis with Bozena Mcmillan MD Nov 11, 2016 13:42
[2016-11-11] MEDS: AZITHROMYCIN 250 MG TAB PO SCH (15:39)
[2016-11-11] MEDS: cefTRIAXone INJ 2,000 MG in SODIUM CHLORIDE 0.9% INJ 100 ML IV SCH (15:39)
[2016-11-11] MEDS: LEVOFLOXACIN 250 MG TAB PO SCH (15:39)
[2016-11-11] MEDS: ACETAMINOPHEN 325 MG TAB PO PRN (21:56)
[2016-11-11 23:11] LABS: BLOOD, URINE SMALL (NEG); GLUCOSE,URINE NEG (NEG); KETONE, URINE NEG (NEG); NITRITE,URINE NEG (NEG); SQUAMOUS EPITHELIAL CELL URINE <1 /hpf (0-5); URINE COLOR LIGHT-YELLOW (YELLW/STRAW)
[2016-11-12] VITALS (8 sets, daily range): BP systolic 145–174; BP diastolic 84–99; PULSE 97–122; RESP 16–20; TEMP 98.4–102.3; O2SAT 94–100
[2016-11-12] MEDS: HEPARIN SODIUM - SQ 10,000 UNITS/ML VIAL SQ SCH ×2 (05:00→16:08)
[2016-11-12] MEDS: valACYclovir HCL 500 MG TAB PO SCH ×3 (06:17→20:50)
[2016-11-12] MEDS: DOCUSATE SODIUM 50 MG/SENNA 8.6 MG TAB PO SCH ×2 (09:00→20:50)
[2016-11-12] MEDS: NYSTATIN SUSP 500,000 U/5 ML CUP SWISH-SWAL SCH ×4 (09:03→20:51)
[2016-11-12] MEDS: SODIUM BICARBONATE 650 MG TAB PO SCH ×2 (09:03→20:51)
[2016-11-12] MEDS: AZITHROMYCIN 250 MG TAB PO SCH (09:04)
[2016-11-12] MEDS: METOPROLOL TARTRATE 25 MG TAB PO SCH ×2 (09:04→20:51)
[2016-11-12] MEDS: SODIUM CHLORIDE 0.9% FLUSH 10 ML FLUSH IV FLUSH SCH ×2 (09:06→20:51)
--- NOTE | 2016-11-12 11:58 | HHI.PR ---
Subjective Remarks This is a 50yo male with PMHX of HIV who follows with Dr. Samuels as outpatient last seen 6 months ago who admits to being noncompliant with his HIV medications for the past 2 months and presents to [facility] ED with complaints of severe buttock pain secondary to multiple buttocks and perirectal wounds for the past two months. Patient denies seeking any previous treatment. Patient is not the best historian. He denies any worsening of the wounds. When asked why he chose to come in today, patient states he was "just tired of it". He admits to decreased oral intake. He also reports low back pain yesterday that he thought might be attributable to another kidney stone. He denies any back pain presently. He endorses nausea with nonbilious, nonbloody emesis for the past 2-3 days. He denies any fevers but reports one episode of chills. He denies any chest pain or SOB. He denies any previous history of kidney problems. He denies any hematuria, dysuria, hesitancy, slow stream or incomplete emptying. He reports urinating 3 to 4 x during the day and the same at night. In the ED, he has a temp of 100.6. White count is normal. Lactic acid is 0.8. His creatinine is extremely elevated at 7.83. 11/07: Stable in his bedroom discussed with nurse Miss Monreal the patient is febrile and refusing Acetaminophen, consulted ID specialist and seen by Doctor Bozena Chambers she thinks the Fever is related to UTI, has stones, Ulcers in the buttock looked more Herpetic, asked for HSV and VZV serologies, continue Zosyn but removed the Vancomycin, continue wound care and will follow. 11/08: No new issues. 11/09: Seen in his bedroom, was febrile yesterday 102F, Hemoglobin 7.6, Creatinine 6.81, CD4 count less than 20, HSV positive, UA positive for E Coli switched by ID specialist to Ceftriaxone. 11/10: Stable discussed with nurse Miss Bunn has Tachycardia, continue febrile and mild hypertension, continue on Ceftriaxone as per ID specialist. 11/11: no new issues. 11/12: patient discussed with nurse, no complaint at this time and following ID specialist recommendations. Objective Vital Signs Date Time Temp Pulse Resp B/P Pulse Ox O2 Delivery O2 Flow Rate FiO2 11/12/16 08:10 116 11/12/16 08:10 Room Air 11/12/16 08:00 99.5 113 20 150/85 98 11/12/16 05:40 98.6 122 16 149/99 98 11/12/16 00:12 98.4 97 16 145/86 100 11/11/16 20:35 99.5 109 16 164/76 100 11/11/16 20:00 Room Air 11/11/16 16:00 99.6 113 20 160/92 99 11/11/16 12:00 101.3 106 18 148/84 100 11/11/16 12:00 Room Air I/O 11/11/16 11/11/16 11/11/16 11/12/16 11/12/16 11/12/16 07:00 15:00 23:00 07:00 15:00 23:00 Intake Total 240 ml 480 ml 1060 ml 120 ml Output Total 700 ml 800 ml 200 ml 600 ml Balance -460 ml -320 ml 860 ml -480 ml Intake Oral 240 ml 480 ml 960 ml 120 ml IV Total 100 ml Output Urine Total 700 ml 800 ml 200 ml 600 ml # Bowel Movements 1 1 0 Result Diagram: 11/10/16 1234 Imaging Last Impressions Renal Ultrasound 11/05/16 0000 Signed Impressions: Service Date/Time: Saturday, November 05, 2016 19:17 - CONCLUSION: Diffusely echogenic kidneys indicating medical renal disease. Dorian Murry MD Chest X-Ray 11/05/16 0000 Signed Impressions: Service Date/Time: Saturday, November 05, 2016 17:07 - CONCLUSION: 1. Patchy consolidation versus atelectasis in the upper lung zone on the lateral view. 2. 1 cm nodular density in the left lower lung zone on the PA view only. Recommend noncontrast chest CT to evaluate for pulmonary nodule. Dorian Murry MD Abdomen/Pelvis CT 11/05/16 0000 Signed Impressions: Service Date/Time: Saturday, November 05, 2016 17:19 - CONCLUSION: 1. 4 mm calculus in the right renal pelvis/ureteropelvic junction with mild adjacent perinephric/periureteral stranding. No evidence of hydronephrosis. 2. 1 cm round hypodensity in the anterior right mid kidney statistically most likely to represent a cyst. 3. 3.7 cm hypodensity in the right lobe of the liver air the dome of the diaphragm. This finding is nonspecific on noncontrast CT. The most likely etiologies include hemangioma and cyst. It could be further evaluated with ultrasound nonemergent followup MRI of the abdomen. 4. Mild dilated proximal right common iliac artery. Dorian Murry MD Procedures None Other Results Laboratory Tests Test 11/07/16 11/07/16 11/07/16 11/08/16 07:33 15:16 17:33 09:20 Anti-Proteinase 3 (c-ANCA) LESS THAN 1.0 AI Anti-Myeloperoxidase Ab LESS THAN 1.0 (p-ANCA) AI Absolute Lymphocytes (Cell 155 Immunity Percent CD3 Cells 58 % Absolute CD3 Count 90 Percent CD3-/CD16+/CD56+ Cells 36 % Absolute CD3-/CD16+/CD56+ 61 Count Percent CD4 Cells 3 % Absolute CD4 Count LESS THAN 20 T-[place]/Suppressor Ratio 0.1 Percent CD8 Cells 53 % Absolute CD8 Count 74 Percent CD19 Cells 5 % Absolute CD19 Count LESS THAN 20 Anti-Nuclear Antibody Screen NEG Herpes Simplex Virus I IgG Ab Positive Index Herpes Simplex Virus II IgG Positive Index Varicella-Zoster IgG Antibody >4000.00 INDEX Varicella-Zoster IgM Antibody 0.16 Total Protein 4.9 GM/DL Protein Corrected Calcium 8.6 MG/DL Iron Level 25 MCG/DL Total Iron Binding Capacity 118 MCG/DL Percent Iron Saturation 21.3 % Ferritin 2491 NG/ML Albumin 2.17 GM/DL Albumin/Globulin Ratio 0.80 Xrswz-0-Qgkvtgezt 0.35 GM/DL Npymj-7-Mkrprdvtk 0.85 GM/DL Beta Globulins 0.71 GM/DL Gamma Globulins 0.82 GM/DL Electrophoresis Pathologist Comment Test 11/10/16 11/11/16 11/11/16 12:34 19:15 22:15 Sodium Level 138 MEQ/L Potassium Level 3.6 MEQ/L Chloride Level 108 MEQ/L Carbon Dioxide Level 18.7 MEQ/L Anion Gap 11 MEQ/L Blood Urea Nitrogen 44 MG/DL Creatinine 6.75 MG/DL Estimat Glomerular Filtration 11 ML/MIN Rate Random Glucose 134 MG/DL Calcium Level 8.4 MG/DL Cytomegalovirus DNA Quant <137 IU/mL (PCR) Erythrocyte Sedimentation Rate GREATER THAN 140 mm/hr C-Reactive Protein 17.00 MG/DL Urine Color LIGHT-YELLOW Urine Turbidity CLEAR Urine pH 6.0 Urine Specific [place] 1.009 Urine Protein 100 mg/dL Urine Glucose (UA) NEG mg/dL Urine Ketones NEG mg/dL Urine Occult Blood SMALL Urine Nitrite NEG Urine Bilirubin NEG Urine Urobilinogen LESS THAN 2.0 MG/DL Urine Leukocyte Esterase NEG Urine RBC 1 /hpf Urine WBC 1 /hpf Urine Squamous Epithelial <1 /hpf Cells Objective Remarks GENERAL: This is a well-nourished, well-developed patient, in no apparent distress. Awake and alert. ENT: Nose without bleeding, purulent drainage. (+)Oral thrush. Airway patent. NECK: Trachea midline. No JVD or lymphadenopathy. Supple, nontender, no meningeal signs. CARDIOVASCULAR: Regular rate and rhythm without murmurs, gallops, has tachycardia today. RESPIRATORY: Clear to auscultation. Breath sounds equal bilaterally. No wheezes , rales, or rhonchi. GASTROINTESTINAL: Abdomen soft, non-tender, nondistended. MUSCULOSKELETAL: Extremities without clubbing, cyanosis, or edema. No joint tenderness, effusion, or edema noted. No calf tenderness. NEUROLOGICAL: Awake and alert. Able to move all extremities. Medications and IVs Current Medications Medications (Trade) Dose Ordered Sig/Nyla Route Start Time Stop Time Status Last Admin (NS Flush) 2 ml UNSCH PRN IV FLUSH 11/05/16 16:15 (NS Flush) 2 ml BID IV FLUSH 11/05/16 21:00 11/12/16 09:06 (Tylenol) 650 mg Q4H PRN PO 11/05/16 16:15 11/11/16 21:56 (Zofran Inj) 4 mg Q6H PRN IVP 11/05/16 16:15 (Heparin Inj) 5,000 units Q12H SQ 11/05/16 17:00 11/07/16 05:00 (Narcan Inj) 0.4 mg UNSCH PRN IV 11/05/16 16:15 (Dee-Colace) 1 tab BID PO 11/05/16 21:00 11/11/16 08:23 (Milk Of Magnesia Liq) 30 ml Q12H PRN PO 11/05/16 16:15 (Senokot) 17.2 mg Q12H PRN PO 8/12/17 16:15 (Dulcolax Supp) 10 mg DAILY PRN RECTAL 11/05/16 16:15 (Lactulose Liq) 30 ml DAILY PRN PO 11/05/16 16:15 ([place] 7.5-325 Mg) 1 tab Q4H PRN PO 11/05/16 16:15 (Mycostatin Liq) 5 ml QID SWISH-SWAL 11/05/16 18:00 11/12/16 09:03 (Valtrex) 500 mg Q8HR PO 11/08/16 09:15 11/15/16 23:00 11/12/16 06:17 Sodium Bicarbonate 650 mg 650 mg Q12HR PO 11/09/16 21:00 11/12/16 09:03 (Rocephin Inj/NS Inj) 100 ml @ 200 mls/hr Q24H IV 11/09/16 18:00 11/11/16 15:39 (Lopressor) 12.5 mg Q12HR PO 11/10/16 18:00 11/12/16 09:04 (Levaquin) 250 mg Q48H PO 11/11/16 16:00 11/11/16 15:39 (Zithromax) 250 mg DAILY PO 11/11/16 15:15 11/12/16 09:04 A/P Assessment and Plan 50yo male with PMHX of HIV who follows with Dr. Samuels as outpatient last seen 6 months ago who admits to being noncompliant with his HIV medications for the past 2 months and presents to [facility] ED with complaints of severe buttock pain secondary to multiple buttock and perirectal wounds for the past two months. 1. Severe sepsis secondary to UTI : Improving, recommended by ID to switch from Zosyn to Ceftriaxone today to cover E coli in Urine. 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 the patient is febrile today. 2. ARF initial diagnosis but may have CKD awaiting final recommendations by Nephrology specialist. creatinine 7.83, Mild improvement to 6.75. he has history of Kidney stones. CT abd/pelvis r/o obstructive nephrolithiasis, continue IV fluids and avoid Nephrotoxic agents. Consulted Nephrology specialist, once stable Nephrology consider Kidney Biopsy. 3. HIV CD4 count less than 20 patient admits to being noncompliant with his meds for the past 2 mos. 4. Oral Thrush Nystatin s/s Improving. 5. Anemia, normocytic, normochromic hemoglobin 7.6 today likely secondary to CKD 6. Tachycardia and mild hypertension started on Beta tresa Metoprolol 12.5 mg BID and follow better control 7. 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 DVT prophylaxis Heparin sq Discussed with Patient in the room, all questions answered to the best of my abilities No changes to anterior assessment. Discharge Planning Not yet cleared by specialists. Ze Chan MD Nov 12, 2016 11:58
[2016-11-12] MEDS: ACETAMINOPHEN 325 MG TAB PO PRN (16:03)
[2016-11-12] MEDS: cefTRIAXone INJ 2,000 MG in SODIUM CHLORIDE 0.9% INJ 100 ML IV SCH (18:03)
--- NOTE | 2016-11-12 19:28 | HHI.NPPN ---
Subjective History of Present Illness 50-year-old male with past medical history of HIV disease for more than 20 years and history of renal stone who came to the hospital with complaint of back pain. The patient has back pain going on for the last 2 months off and on and he came to the emergency department yesterday with worsening pain. Additional Remarks No acute complaints Review of Systems General Constitutional: Fatigue Cardiovascular Cardiac: MIRZA Objective Data Data 11/11/16 11/12/16 19:00 07:00 Intake Total 580 ml 1080 ml Output Total 800 ml 800 ml Balance -220 ml 280 ml Intake Oral 480 ml 1080 ml IV Total 100 ml Output Urine Total 800 ml 800 ml # Bowel Movements 1 1 Vital Signs Date Time Temp Pulse Resp B/P Pulse Ox O2 Delivery O2 Flow Rate FiO2 11/12/16 16:00 102.3 116 20 174/84 99 11/12/16 12:00 100.6 104 20 170/95 94 11/12/16 08:10 116 11/12/16 08:10 Room Air 11/12/16 08:00 99.5 113 20 150/85 98 11/12/16 05:40 98.6 122 16 149/99 98 11/12/16 00:12 98.4 97 16 145/86 100 11/11/16 20:35 99.5 109 16 164/76 100 11/11/16 20:00 Room Air -: 11/10/16 1234 Physical Exam General Appearance: No Acute Distress, Comfortable Eyes Eye Exam: Pupils Equal Throat Throat Exam: Oral Mucosa [place] & Moist Pulmonary Resp Exam: Breath Sounds Equal, No Distress, Rhonchi, Decreased Bases Cardiology CV Exam: Regular, Normal Sinus Rhythm Gastrointestinal/Abdomen GI Exam: Soft, Non-Tender, Bowel Sounds Present Extremeties Extremities Exam: No Edema Neurologic Neuro Exam: Alert, Awake, Oriented Psychiatric Psych Exam: Appropriate Responses Assessment/Plan Assessment Summary: MIKE/Acute Renal Failure Problem List: (1) Renal failure (2) Sepsis (3) Open wound of scrotum Plan UOP stable. No labs since 11/10 - will order labs and follow. No absolute indication for dialysis at this time, making urine. Last K 3.6 Volume status stable. Continue PO NaHCO3. Continue IVFs Febrile today - temp 102 On Zosyn and IVF. Follow with ID. Anemia - Transfuse as needed. Iron stores normal. SPEP normal. If no improvement, possible kidney Biopsy once infection is controlled. Problem Qualifiers (1) Renal failure: Qualified Code: N17.9 - Acute renal failure superimposed on chronic kidney disease, unspecified CKD stage, unspecified acute renal failure type (2) Sepsis: Qualified Code: A41.9 - Sepsis, due to unspecified organism Deric Tello MD Nov 12, 2016 19:27
[2016-11-12] MEDS: SODIUM BICARBONATE 8.4% INJ 75 MEQ in SODIUM CHLOR 0.45% 1000 ML INJ 1,000 ML IV SCH (21:46)
[2016-11-13] VITALS (8 sets, daily range): BP systolic 153–182; BP diastolic 83–108; PULSE 92–113; RESP 18–20; TEMP 97.7–101.8; O2SAT 94–100
[2016-11-13] MEDS: ACETAMINOPHEN 325 MG TAB PO PRN ×2 (00:53→16:17)
[2016-11-13 05:25] LABS: AUTOMATED NEUTROPHIL # 4.2 TH/MM3 (1.8-7.7); BASOPHIL % 0.7 % (0.0-2.0); EOSINOPHIL # 0.1 TH/MM3 (0-0.4); EOSINOPHIL % 1.2 % (0.0-4.0); LYMPH % 2.4 % (9.0-44.0); LYMPHOCYTE # 0.1 TH/MM3 (1.0-4.8); MEAN CELL VOLUME 84.8 FL (80.0-100.0); MEAN CORPUSCULAR HEMOGLOBIN 29.1 PG (27.0-34.0); MEAN CORPUSCULAR HGB CONC 34.3 % (32.0-36.0); MONO % 8.9 % (0.0-8.0); NEUT % 86.8 % (16.0-70.0); PLATELET COUNT 170 TH/MM3 (150-450); RED CELL DISTRIBUTION WIDTH 15.1 % (11.6-17.2); WHITE BLOOD COUNT 4.8 TH/MM3 (4.0-11.0)
[2016-11-13] MEDS: HEPARIN SODIUM - SQ 10,000 UNITS/ML VIAL SQ SCH ×2 (05:34→16:13)
[2016-11-13] MEDS: valACYclovir HCL 500 MG TAB PO SCH ×3 (05:34→22:26)
[2016-11-13 05:40] LABS: HEMO FLAGS AUTO DIFF
[2016-11-13 05:41] LABS: HEMATOCRIT 17.8 % (39.0-51.0)
[2016-11-13] MEDS ORDERED: SODIUM CHLOR 0.9% 250 ML INJ 250 ML IV ONE (06:00)
--- NOTE | 2016-11-13 06:11 | HHI.PR ---
Subjective Remarks This is a 50yo male with PMHX of HIV who follows with Dr. Samuels as outpatient last seen 6 months ago who admits to being noncompliant with his HIV medications for the past 2 months and presents to [facility] ED with complaints of severe buttock pain secondary to multiple buttocks and perirectal wounds for the past two months. Patient denies seeking any previous treatment. Patient is not the best historian. He denies any worsening of the wounds. When asked why he chose to come in today, patient states he was "just tired of it". He admits to decreased oral intake. He also reports low back pain yesterday that he thought might be attributable to another kidney stone. He denies any back pain presently. He endorses nausea with nonbilious, nonbloody emesis for the past 2-3 days. He denies any fevers but reports one episode of chills. He denies any chest pain or SOB. He denies any previous history of kidney problems. He denies any hematuria, dysuria, hesitancy, slow stream or incomplete emptying. He reports urinating 3 to 4 x during the day and the same at night. In the ED, he has a temp of 100.6. White count is normal. Lactic acid is 0.8. His creatinine is extremely elevated at 7.83. 11/07: Stable in his bedroom discussed with nurse Miss Monreal the patient is febrile and refusing Acetaminophen, consulted ID specialist and seen by Doctor Bozena Chambers she thinks the Fever is related to UTI, has stones, Ulcers in the buttock looked more Herpetic, asked for HSV and VZV serologies, continue Zosyn but removed the Vancomycin, continue wound care and will follow. 11/08: No new issues. 11/09: Seen in his bedroom, was febrile yesterday 102F, Hemoglobin 7.6, Creatinine 6.81, CD4 count less than 20, HSV positive, UA positive for E Coli switched by ID specialist to Ceftriaxone. 11/10: Stable discussed with nurse Miss Bunn has Tachycardia, continue febrile and mild hypertension, continue on Ceftriaxone as per ID specialist. 11/11: no new issues. 11/12: patient discussed with nurse, no complaint at this time and following ID specialist recommendations. 11/13: Seen in his bedroom in the presence of his Partner Mr. oCrbin Scott all questions answered to the best of my abilities, specially discussed about the need for Medical compliance. Objective Vital Signs Date Time Temp Pulse Resp B/P Pulse Ox O2 Delivery O2 Flow Rate FiO2 11/13/16 04:00 98.4 95 20 153/96 94 11/13/16 04:00 Room Air 11/13/16 00:00 Room Air 11/13/16 00:00 101.8 106 20 161/83 100 11/12/16 20:06 110 11/12/16 20:00 98.4 99 16 155/93 98 11/12/16 20:00 Room Air 11/12/16 16:00 102.3 116 20 174/84 99 11/12/16 12:00 100.6 104 20 170/95 94 11/12/16 08:10 116 11/12/16 08:10 Room Air 11/12/16 08:00 99.5 113 20 150/85 98 I/O 11/12/16 11/12/16 11/12/16 11/13/16 11/13/16 11/13/16 07:00 15:00 23:00 07:00 15:00 23:00 Intake Total 120 ml 240 ml 340 ml 818 ml Output Total 600 ml 500 ml 150 ml 100 ml Balance -480 ml -260 ml 190 ml 718 ml Intake Oral 120 ml 240 ml 240 ml 240 ml IV Total 100 ml 578 ml Output Urine Total 600 ml 500 ml 150 ml 100 ml # Bowel Movements 0 2 2 0 Result Diagram: 11/13/16 0414 11/10/16 1234 Imaging Last Impressions Renal Ultrasound 11/05/16 0000 Signed Impressions: Service Date/Time: Saturday, November 05, 2016 19:17 - CONCLUSION: Diffusely echogenic kidneys indicating medical renal disease. Dorian Murry MD Chest X-Ray 11/05/16 0000 Signed Impressions: Service Date/Time: Saturday, November 05, 2016 17:07 - CONCLUSION: 1. Patchy consolidation versus atelectasis in the upper lung zone on the lateral view. 2. 1 cm nodular density in the left lower lung zone on the PA view only. Recommend noncontrast chest CT to evaluate for pulmonary nodule. Dorian Murry MD Abdomen/Pelvis CT 11/05/16 0000 Signed Impressions: Service Date/Time: Saturday, November 05, 2016 17:19 - CONCLUSION: 1. 4 mm calculus in the right renal pelvis/ureteropelvic junction with mild adjacent perinephric/periureteral stranding. No evidence of hydronephrosis. 2. 1 cm round hypodensity in the anterior right mid kidney statistically most likely to represent a cyst. 3. 3.7 cm hypodensity in the right lobe of the liver air the dome of the diaphragm. This finding is nonspecific on noncontrast CT. The most likely etiologies include hemangioma and cyst. It could be further evaluated with ultrasound nonemergent followup MRI of the abdomen. 4. Mild dilated proximal right common iliac artery. Dorian Murry MD Procedures None Other Results Laboratory Tests Test 11/07/16 11/07/16 11/07/16 11/08/16 07:33 15:16 17:33 09:20 Anti-Proteinase 3 (c-ANCA) LESS THAN 1.0 AI Anti-Myeloperoxidase Ab LESS THAN 1.0 (p-ANCA) AI Absolute Lymphocytes (Cell 155 Immunity Percent CD3 Cells 58 % Absolute CD3 Count 90 Percent CD3-/CD16+/CD56+ Cells 36 % Absolute CD3-/CD16+/CD56+ 61 Count Percent CD4 Cells 3 % Absolute CD4 Count LESS THAN 20 T-[place]/Suppressor Ratio 0.1 Percent CD8 Cells 53 % Absolute CD8 Count 74 Percent CD19 Cells 5 % Absolute CD19 Count LESS THAN 20 Anti-Nuclear Antibody Screen NEG Herpes Simplex Virus I IgG Ab Positive Index Herpes Simplex Virus II IgG Positive Index Varicella-Zoster IgG Antibody >4000.00 INDEX Varicella-Zoster IgM Antibody 0.16 Total Protein 4.9 GM/DL Protein Corrected Calcium 8.6 MG/DL Iron Level 25 MCG/DL Total Iron Binding Capacity 118 MCG/DL Percent Iron Saturation 21.3 % Ferritin 2491 NG/ML Albumin 2.17 GM/DL Albumin/Globulin Ratio 0.80 Yimij-7-Pjzttorid 0.35 GM/DL Daydn-2-Imuadwzac 0.85 GM/DL Beta Globulins 0.71 GM/DL Gamma Globulins 0.82 GM/DL Electrophoresis Pathologist Comment Test 11/10/16 11/11/16 11/11/16 11/13/16 12:34 19:15 22:15 04:14 Sodium Level 138 MEQ/L Potassium Level 3.6 MEQ/L Chloride Level 108 MEQ/L Carbon Dioxide Level 18.7 MEQ/L Anion Gap 11 MEQ/L Blood Urea Nitrogen 44 MG/DL Creatinine 6.75 MG/DL Estimat Glomerular Filtration 11 ML/MIN Rate Random Glucose 134 MG/DL Calcium Level 8.4 MG/DL Cytomegalovirus DNA Quant <137 IU/mL (PCR) Erythrocyte Sedimentation Rate GREATER THAN 140 mm/hr C-Reactive Protein 17.00 MG/DL Urine Color LIGHT-YELLOW Urine Turbidity CLEAR Urine pH 6.0 Urine Specific [place] 1.009 Urine Protein 100 mg/dL Urine Glucose (UA) NEG mg/dL Urine Ketones NEG mg/dL Urine Occult Blood SMALL Urine Nitrite NEG Urine Bilirubin NEG Urine Urobilinogen LESS THAN 2.0 MG/DL Urine Leukocyte Esterase NEG Urine RBC 1 /hpf Urine WBC 1 /hpf Urine Squamous Epithelial <1 /hpf Cells White Blood Count 4.8 TH/MM3 Red Blood Count 2.10 MIL/MM3 Hemoglobin 6.1 GM/DL Hematocrit 17.8 % Mean Corpuscular Volume 84.8 FL Mean Corpuscular Hemoglobin 29.1 PG Mean Corpuscular Hemoglobin 34.3 % Concent Red Cell Distribution Width 15.1 % Platelet Count 170 TH/MM3 Mean Platelet Volume 8.0 FL Neutrophils (%) (Auto) 86.8 % Lymphocytes (%) (Auto) 2.4 % Monocytes (%) (Auto) 8.9 % Eosinophils (%) (Auto) 1.2 % Basophils (%) (Auto) 0.7 % Neutrophils # (Auto) 4.2 TH/MM3 Lymphocytes # (Auto) 0.1 TH/MM3 Monocytes # (Auto) 0.4 TH/MM3 Eosinophils # (Auto) 0.1 TH/MM3 Basophils # (Auto) 0.0 TH/MM3 CBC Comment AUTO DIFF Objective Remarks GENERAL: This is a well-nourished, well-developed patient, in no apparent distress. Awake and alert. ENT: Nose without bleeding, purulent drainage. (+)Oral thrush. Airway patent. NECK: Trachea midline. No JVD or lymphadenopathy. Supple, nontender, no meningeal signs. CARDIOVASCULAR: Regular rate and rhythm without murmurs, gallops, has tachycardia today. RESPIRATORY: Clear to auscultation. Breath sounds equal bilaterally. No wheezes , rales, or rhonchi. GASTROINTESTINAL: Abdomen soft, non-tender, nondistended. MUSCULOSKELETAL: Extremities without clubbing, cyanosis, or edema. No joint tenderness, effusion, or edema noted. No calf tenderness. NEUROLOGICAL: Awake and alert. Able to move all extremities. Medications and IVs Current Medications Medications (Trade) Dose Ordered Sig/Nyla Route Start Time Stop Time Status Last Admin (NS Flush) 2 ml UNSCH PRN IV FLUSH 11/05/16 16:15 (NS Flush) 2 ml BID IV FLUSH 11/05/16 21:00 11/12/16 20:51 (Tylenol) 650 mg Q4H PRN PO 11/05/16 16:15 11/13/16 00:53 (Zofran Inj) 4 mg Q6H PRN IVP 11/05/16 16:15 (Heparin Inj) 5,000 units Q12H SQ 11/05/16 17:00 11/13/16 05:34 (Narcan Inj) 0.4 mg UNSCH PRN IV 11/05/16 16:15 (Dee-Colace) 1 tab BID PO 11/05/16 21:00 11/12/16 20:50 (Milk Of Magnesia Liq) 30 ml Q12H PRN PO 11/05/16 16:15 (Senokot) 17.2 mg Q12H PRN PO 11/05/16 16:15 (Dulcolax Supp) 10 mg DAILY PRN RECTAL 11/05/16 16:15 (Lactulose Liq) 30 ml DAILY PRN PO 11/05/16 16:15 ([place] 7.5-325 Mg) 1 tab Q4H PRN PO 11/05/16 16:15 (Mycostatin Liq) 5 ml QID SWISH-SWAL 11/05/16 18:00 11/12/16 20:51 (Valtrex) 500 mg Q8HR PO 11/08/16 09:15 11/15/16 23:00 11/13/16 05:34 Sodium Bicarbonate 650 mg 650 mg Q12HR PO 11/09/16 21:00 11/12/16 20:51 (Rocephin Inj/NS Inj) 100 ml @ 200 mls/hr Q24H IV 11/09/16 18:00 11/12/16 18:03 (Lopressor) 12.5 mg Q12HR PO 11/10/16 18:00 11/12/16 20:51 (Levaquin) 250 mg Q48H PO 11/11/16 16:00 11/11/16 15:39 Azithromycin 250 mg 250 mg DAILY PO 11/11/16 15:15 11/12/16 09:04 Sodium Bicarbonate 75 meq/Sodium Chloride 1,075 ml @ 75 mls/hr [id number] IV 11/12/16 21:00 11/12/16 21:46 (NS 250 ml Inj) 250 ml @ 15 mls/hr ONCE ONCE IV 11/13/16 06:00 11/13/16 22:39 A/P Assessment and Plan 50yo male with PMHX of HIV who follows with Dr. Samuels as outpatient last seen 6 months ago who admits to being noncompliant with his HIV medications for the past 2 months and presents to [facility] ED with complaints of severe buttock pain secondary to multiple buttock and perirectal wounds for the past two months. 1. Severe sepsis secondary to UTI : Improving, recommended by ID to switch from Zosyn to Ceftriaxone today to cover E coli in Urine. 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 he continue spike of fever on daily bases. 2. ARF initial diagnosis but may have CKD awaiting final recommendations by Nephrology specialist. creatinine 7.83, Mild improvement to 6.75. he has history of Kidney stones. CT abd/pelvis r/o obstructive nephrolithiasis, continue IV fluids and avoid Nephrotoxic agents. Consulted Nephrology specialist, once stable Nephrology consider Kidney Biopsy. 3. HIV CD4 count less than 20 patient admits to being noncompliant with his meds for the past 2 mos. 4. Oral Thrush Nystatin s/s Improving. 5. Anemia, normocytic, normochromic hemoglobin 6.1 asked for blood transfusion of two units of PRBCs. 6. Hypertension and Tachycardia started on Metoprolol will increase to 25 mg bid. 7. Medical non compliance. 8. 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 DVT prophylaxis Heparin sq Discussed with Patient and his Partner Mr. Corbin Scott he has phone number is [phone] wants to know when his partner is been discharged to pick him up here also to discuss Patient's course, all questions answered to the best of my abilities Discharge Planning Not yet cleared by specialists. Ze Chan MD Nov 13, 2016 06:11
[2016-11-13 06:42] LABS: ALKALINE PHOSPHATASE 48 U/L (45-117); ALT (GPT) 26 U/L (12-78); ANION GAP 13 MEQ/L (5-15); AST (GOT) 43 U/L (15-37); BICARBONATE 15.3 MEQ/L (21.0-32.0); BLOOD UREA NITROGEN 48 MG/DL (7-18); CHLORIDE 109 MEQ/L (98-107); GLOMERULAR FILTRATION RATE 8 ML/MIN (>89); MAGNESIUM 1.9 MG/DL (1.5-2.5); POTASSIUM 3.9 MEQ/L (3.5-5.1); SODIUM (NA) 137 MEQ/L (136-145); TOTAL BILIRUBIN ADULT 0.2 MG/DL (0.2-1.0)
[2016-11-13 07:37] LABS: BANDS 6 % (0-6); EOSINOPHILS 1 % (0-4); METAMYELOCYTES 1 % (0-1); MYELOCYTES 1 % (0-0); NEUTROPHIL # MANUAL DIFF 4.4 TH/MM3 (1.8-7.7); POLYS (SEG NEUTROPHILS) 83 % (16-70); WBC DIFF SAMPLE 100
[2016-11-13 07:38] LABS: OVALOCYTES 1+ (NORMAL)
[2016-11-13 07:39] LABS: PLATELET ESTIMATE SMEAR NORMAL (NORMAL); PLATELET MORPHOLOGY NORMAL (NORMAL); SCAN/DIFF FINAL DIFF MANUAL
[2016-11-13] MEDS: SODIUM CHLORIDE 0.9% FLUSH 10 ML FLUSH IV FLUSH SCH ×2 (08:45→21:00)
[2016-11-13] MEDS: DOCUSATE SODIUM 50 MG/SENNA 8.6 MG TAB PO SCH ×2 (09:00→21:00)
[2016-11-13] MEDS: NYSTATIN SUSP 500,000 U/5 ML CUP SWISH-SWAL SCH ×4 (10:02→22:23)
[2016-11-13] MEDS: SODIUM BICARBONATE 650 MG TAB PO SCH ×2 (10:02→22:25)
[2016-11-13] MEDS: AZITHROMYCIN 250 MG TAB PO SCH (10:02)
[2016-11-13] MEDS: METOPROLOL TARTRATE 25 MG TAB PO SCH ×2 (10:02→22:26)
[2016-11-13] MEDS: SODIUM BICARBONATE 8.4% INJ 75 MEQ in SODIUM CHLOR 0.45% 1000 ML INJ 1,000 ML IV SCH (10:02)
--- NOTE | 2016-11-13 14:17 | HHI.IDPN ---
Subjective Subjective Remarks Patient is a 50-year-old male, with known HIV, the last 23 years, states his last CD4 count was around 2, has been following with an HIV provider over the last 4 years, percent to the hospital complaining all severe buttock pain which has been present for the last 2 months. He apparently initially noted some blister looking lesions that are painful on his right buttock. It spread, and he thought it was no resolve on its own, but they persisted and he continued to have problem. He initially also had some right sided abdominal pain, and thought that it was his kidney stone. He has had previous problem with kidney stone. Patient stated that he passed the stone. He currently denies any dysuria, and denies any prior history of hematuria. He has not had any fever or chills prior to admission, but since admission patient has had fevers. Denies any respiratory complaint. Denies any diarrhea. He's had some on and off vomiting, and this is the reason why he has not been very compliant with his HIV medication. On presentation, patient was found to have an abnormal urinalysis. His creatinine was 7+. CT of the abdomen and pelvis showed some stones but there is no evidence of hydronephrosis. Chest x-ray is unremarkable. As noted to have multiple ulcers in the room right buttock, as well as in the perirectal area. Some ulcers noted also in the scrotal area. Infectious disease consultation has been requested to evaluate the patient. Notes reviewed Still with intermittent fevers No new complaints HSV 1 and 2 (+) VZV IgM negative, IgG (+) BC negative UC mixed bacteria Wound C/S E coli BC negative CD4 <20 Creatinine increasing CMV PCR negative BC for AFB pending ESR >140 CRP 17 Antibiotics Rocephin Valtrex Levaquin Zithromax Lines PIV Past Medical History HIV, for 20+years, noncompliant with medications for the past 2 months Kidney stones Allergies: Coded Allergies: No Known Allergies (Unverified , 11/05/16) Objective . Vital Signs Date Time Temp Pulse Resp B/P (MAP) Pulse Ox O2 Delivery O2 Flow Rate FiO2 11/13/16 07:20 Room Air 11/13/16 04:00 98.4 95 20 153/96 (115) 94 11/13/16 04:00 Room Air 11/13/16 00:00 Room Air 11/13/16 00:00 101.8 106 20 161/83 (109) 100 11/12/16 20:06 110 11/12/16 20:00 98.4 99 16 155/93 (113) 98 11/12/16 20:00 Room Air 11/12/16 16:00 102.3 116 20 174/84 (114) 99 . Laboratory Tests Test 11/11/16 19:15 11/13/16 04:14 Erythrocyte Sedimentation Rate GREATER THAN 140 mm/hr White Blood Count 4.8 TH/MM3 Red Blood Count 2.10 MIL/MM3 Hemoglobin 6.1 GM/DL Hematocrit 17.8 % Mean Corpuscular Volume 84.8 FL Mean Corpuscular Hemoglobin 29.1 PG Mean Corpuscular Hemoglobin Concent 34.3 % Red Cell Distribution Width 15.1 % Platelet Count 170 TH/MM3 Mean Platelet Volume 8.0 FL Neutrophils (%) (Auto) 86.8 % Lymphocytes (%) (Auto) 2.4 % Monocytes (%) (Auto) 8.9 % Eosinophils (%) (Auto) 1.2 % Basophils (%) (Auto) 0.7 % Neutrophils # (Auto) 4.2 TH/MM3 Lymphocytes # (Auto) 0.1 TH/MM3 Monocytes # (Auto) 0.4 TH/MM3 Eosinophils # (Auto) 0.1 TH/MM3 Basophils # (Auto) 0.0 TH/MM3 CBC Comment AUTO DIFF Differential Total Cells Counted 100 Neutrophils % (Manual) 83 % Band Neutrophils % 6 % Lymphocytes % 3 % Monocytes % 5 % Eosinophils % 1 % Neutrophils # (Manual) 4.4 TH/MM3 Metamyelocytes 1 % Myelocytes 1 % Differential Comment FINAL DIFF MANUAL Platelet Estimate NORMAL Platelet Morphology Comment NORMAL Ovalocytes 1+ Laboratory Tests Test 11/11/16 19:15 11/13/16 04:19 C-Reactive Protein 17.00 MG/DL Blood Urea Nitrogen 48 MG/DL Creatinine 8.51 MG/DL Random Glucose 95 MG/DL Total Protein 5.9 GM/DL Albumin 2.0 GM/DL Calcium Level 8.0 MG/DL Phosphorus Level 4.6 MG/DL Magnesium Level 1.9 MG/DL Alkaline Phosphatase 48 U/L Aspartate Amino Transf (AST/SGOT) 43 U/L Alanine Aminotransferase (ALT/SGPT) 26 U/L Total Bilirubin 0.2 MG/DL Sodium Level 137 MEQ/L Potassium Level 3.9 MEQ/L Chloride Level 109 MEQ/L Carbon Dioxide Level 15.3 MEQ/L Anion Gap 13 MEQ/L Estimat Glomerular Filtration Rate 8 ML/MIN Imaging Last Impressions Renal Ultrasound 11/05/16 Signed Impressions: Service Date/Time: Saturday, November 05, 2016 19:17 - CONCLUSION: Diffusely echogenic kidneys indicating medical renal disease. Dorian Murry MD Chest X-Ray 11/05/16 Signed Impressions: Service Date/Time: Saturday, November 05, 2016 17:07 - CONCLUSION: 1. Patchy consolidation versus atelectasis in the upper lung zone on the lateral view. 2. 1 cm nodular density in the left lower lung zone on the PA view only. Recommend noncontrast chest CT to evaluate for pulmonary nodule. Dorian Murry MD Abdomen/Pelvis CT 11/05/16 Signed Impressions: Service Date/Time: Saturday, November 05, 2016 17:19 - CONCLUSION: 1. 4 mm calculus in the right renal pelvis/ureteropelvic junction with mild adjacent perinephric/periureteral stranding. No evidence of hydronephrosis. 2. 1 cm round hypodensity in the anterior right mid kidney statistically most likely to represent a cyst. 3. 3.7 cm hypodensity in the right lobe of the liver air the dome of the diaphragm. This finding is nonspecific on noncontrast CT. The most likely etiologies include hemangioma and cyst. It could be further evaluated with ultrasound nonemergent followup MRI of the abdomen. 4. Mild dilated proximal right common iliac artery. Dorian Murry MD Physical Exam GENERAL: awake and alert, not in respiratory distress. SKIN: Warm and dry. He has hyperpigmented macules in his UE. HEAD: Atraumatic. Normocephalic. No temporal wasting, or tenderness. EYES: [place] conjunctiva. No petechia or hemorrhage. No scleral icterus. No injection or drainage. EARS, NOSE AND THROAT: Nose without bleeding or purulent nasal discharge. Mucous membranes pink and moist. No oral lesions noted. No exudate. Has improving oral thrush. NECK: Trachea midline. Supple and not tender, no meningeal signs CARDIOVASCULAR: Regular rate and rhythm. No murmurs, rubs or gallops heard RESPIRATORY: Clear to auscultation. Breath sounds equal bilaterally. No rales , wheezing or rhonchi ABDOMEN: Soft, non-tender, nondistended. Bowel sounds present and normoactive. No guarding. No rebound. No organomegaly. EXTREMITIES: No clubbing, cyanosis, or edema.No joint effusion, has good ROM. No calf tenderness. Well perfused and warm. BACK: He has multiple large ulcers in his R buttock, and smaller ulcers in perirectal area, no surrounding cellulitis with some yellow drainage NEUROLOGICAL: Non-focal PSYCHIATRIC: Normal affect, calm and cooperative. LINE: No evidence of infection : No penile ulcer or drainage noted Assessment & Plan Remarks IMPRESSION Fevers, persistent - repeat UA negative - has stones, patient stated he passed the stones, no obstruction on imaging studies - ?infection related to his chronic HIV - ulcers in buttock, doubt causing fevers, looks herpetic, ?VZV Renal failure HIV RECOMMENDATION Continue Rocephin to cover UTI Continue Leva/Zithromax empiric for LULU Repeat 2 BC CXR Tagged WBC scan Wound care Follow temps Monitor progress Bozena Chambers MD Nov 13, 2016 14:17
[2016-11-13] MEDS ORDERED: PILL SPLITTER OTHER PRN (14:30)
[2016-11-13] MEDS ORDERED: METOPROLOL TARTRATE 25 MG TAB PO ONE (14:30)
[2016-11-13] MEDS: cefTRIAXone INJ 2,000 MG in SODIUM CHLORIDE 0.9% INJ 100 ML IV SCH (16:16)
[2016-11-13] MEDS: LEVOFLOXACIN 250 MG TAB PO SCH (16:16)
--- NOTE | 2016-11-13 16:19 | RADRPT ---
EXAM DATE/TIME: 11/13/2016 16:02 [place] COMPARISON: CHEST PA & LAT, November 05, 2016, 17:07. INDICATIONS : Fever MEDICAL HISTORY : None. HIV. Wounds on buttocks. SURGICAL HISTORY : None. ENCOUNTER: Subsequent ACUITY: 4 - 6 days PAIN SCORE: 0/10 LOCATION: chest FINDINGS: The lungs are clear without infiltrate, nodule, or mass. There is no appreciable pleural effusion fo r technique. Heart and mediastinum are unremarkable. CONCLUSION: No acute cardiopulmonary disease. Quincy Medellin MD on November 13, 2016 at 16:16 Board Certified Radiologist. This report was verified electronically.
--- NOTE | 2016-11-13 17:01 | HHI.NPPN ---
Subjective History of Present Illness 50-year-old male with past medical history of HIV disease for more than 20 years and history of renal stone who came to the hospital with complaint of back pain. The patient has back pain going on for the last 2 months off and on and he came to the emergency department yesterday with worsening pain. Additional Remarks No acute complaints, some ongoing fatigue Review of Systems General Constitutional: Fatigue Cardiovascular Cardiac: MIRZA Objective Data Data Vital Signs Date Time Temp Pulse Resp B/P (MAP) Pulse Ox O2 Delivery O2 Flow Rate FiO2 11/13/16 12:16 98.8 98 18 182/104 (130) 98 11/13/16 12:00 98.8 92 20 175/108 (130) 100 11/13/16 11:57 99.5 92 18 177/107 (130) 98 11/13/16 08:00 98.4 100 18 155/85 (108) 11/13/16 07:20 Room Air 11/13/16 04:00 98.4 95 20 153/96 (115) 94 11/13/16 04:00 Room Air 11/13/16 00:00 Room Air 11/13/16 00:00 101.8 106 20 161/83 (109) 100 11/12/16 20:06 110 11/12/16 20:00 98.4 99 16 155/93 (113) 98 11/12/16 20:00 Room Air -: 11/13/16 0414 11/13/16 0419 Microbiology 11/13/16 Aerobic Blood Culture, Received Pending 11/13/16 Anaerobic Blood Culture, Received Pending 11/13/16 Aerobic Blood Culture, Received Pending 11/13/16 Anaerobic Blood Culture, Received Pending Physical Exam General Appearance: No Acute Distress, Comfortable Eyes Eye Exam: Pupils Equal Throat Throat Exam: Oral Mucosa [place] & Moist Pulmonary Resp Exam: Breath Sounds Equal, No Distress, Rhonchi, Decreased Bases Cardiology CV Exam: Regular, Normal Sinus Rhythm Gastrointestinal/Abdomen GI Exam: Soft, Non-Tender, Bowel Sounds Present Extremeties Extremities Exam: No Edema Neurologic Neuro Exam: Alert, Awake, Oriented Psychiatric Psych Exam: Appropriate Responses Assessment/Plan Assessment Summary: MIKE/Acute Renal Failure Problem List: (1) Renal failure ICD Codes: N19 - Unspecified kidney failure Status: Acute (2) Sepsis ICD Codes: A41.9 - Sepsis, unspecified organism Status: Acute (3) Open wound of scrotum ICD Codes: S31.30XA - Unspecified open wound of scrotum and testes, initial encounter Status: Acute Plan 750 cc UOP over last 24 hours Labs reveal ongoing azotemia, acidosis with HCO3 15 Will order for vascath and dialysis tomorrow - given ongoing azotemia and significant acidosis. Patient is feeling some fatigue, with early uremic symptoms. Possible ESRD now, with echogenic kidneys on ultrasound. Patient's mother was on dialysis as well. 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 However given active infection, will plan for vascath and HD for now. Possible kidney Biopsy once infection is controlled - potential for a reversible component here if this is MIKE from sepsis,. Follow with ID. On antibiotics for UTI, LULU PNA. Anemia - Transfuse as needed. Iron stores normal. SPEP normal. Dr. Shah to follow on Monday Problem Qualifiers (1) Renal failure: (2) Sepsis: Deric Tello MD Nov 13, 2016 17:01
[2016-11-13] MEDS ORDERED: SODIUM CHLOR 0.9% 1000 ML INJ 1,000 ML IV PRN ×2 (17:02)
[2016-11-13] MEDS ORDERED: diphenhydrAMINE HCL 25 MG CAP PO PRN (17:15)
[2016-11-13] MEDS ORDERED: GELATIN 12 MM/7 MM FOAM TOP PRN (17:15)
[2016-11-13] MEDS ORDERED: MANNITOL 12.5 GM/50 ML VIAL IV PRN (17:15)
[2016-11-13] MEDS ORDERED: NITROGLYCERIN 0.4 MG SL 25 TABS/BTL SL PRN (17:15)
[2016-11-14] VITALS: BP 162/100; PULSE 99; RESP 18; TEMP 99.1; O2SAT 100
[2016-11-14] MEDS: SODIUM BICARBONATE 8.4% INJ 75 MEQ in SODIUM CHLOR 0.45% 1000 ML INJ 1,000 ML IV SCH ×2 (01:54→16:15)
[2016-11-14 04:00] VITALS: BP 152/86; PULSE 102; RESP 19; TEMP 98.3; O2SAT 98
[2016-11-14] MEDS: HEPARIN SODIUM - SQ 10,000 UNITS/ML VIAL SQ SCH ×4 (05:00→16:18)
[2016-11-14] MEDS: valACYclovir HCL 500 MG TAB PO SCH ×4 (05:55→22:29)
[2016-11-14 07:50] VITALS: PULSE 103
[2016-11-14 08:00] VITALS: BP 164/106; PULSE 107; RESP 17; TEMP 99.3; O2SAT 100
[2016-11-14] MEDS: DOCUSATE SODIUM 50 MG/SENNA 8.6 MG TAB PO SCH ×3 (09:00→20:01)
[2016-11-14] MEDS: SODIUM CHLORIDE 0.9% FLUSH 10 ML FLUSH IV FLUSH SCH ×2 (09:00→20:02)
[2016-11-14] MEDS: METOPROLOL TARTRATE 25 MG TAB PO SCH ×2 (09:31→19:55)
[2016-11-14] MEDS: NYSTATIN SUSP 500,000 U/5 ML CUP SWISH-SWAL SCH ×4 (09:31→19:55)
[2016-11-14] MEDS: AZITHROMYCIN 250 MG TAB PO SCH (09:31)
[2016-11-14] MEDS: SODIUM BICARBONATE 650 MG TAB PO SCH ×2 (09:31→19:56)
[2016-11-14 09:34] LABS: MEAN CELL VOLUME 85.9 FL (80.0-100.0); MEAN CORPUSCULAR HEMOGLOBIN 28.7 PG (27.0-34.0); MEAN CORPUSCULAR HGB CONC 33.4 % (32.0-36.0); PLATELET COUNT 177 TH/MM3 (150-450); RED BLOOD COUNT 2.56 MIL/MM3 (4.50-5.90); RED CELL DISTRIBUTION WIDTH 15.3 % (11.6-17.2); WHITE BLOOD COUNT 4.2 TH/MM3 (4.0-11.0)
[2016-11-14 09:35] LABS: PROTHROMBIN TIME - PATIENT 11.4 SEC (9.8-11.6)
[2016-11-14 09:40] LABS: HEMO FLAGS AUTO DIFF
[2016-11-14 09:56] LABS: ANION GAP 13 MEQ/L (5-15); AST (GOT) 41 U/L (15-37); BICARBONATE 17.4 MEQ/L (21.0-32.0); BLOOD UREA NITROGEN 53 MG/DL (7-18); CHLORIDE 108 MEQ/L (98-107); GLOMERULAR FILTRATION RATE 8 ML/MIN (>89); POTASSIUM 3.7 MEQ/L (3.5-5.1); SODIUM (NA) 138 MEQ/L (136-145)
[2016-11-14 10:01] LABS: ALKALINE PHOSPHATASE 48 U/L (45-117); ALT (GPT) 22 U/L (12-78); TOTAL BILIRUBIN ADULT 0.3 MG/DL (0.2-1.0)
[2016-11-14 10:24] LABS: BANDS 12 % (0-6); METAMYELOCYTES 1 % (0-1); MYELOCYTES 1 % (0-0); POLYS (SEG NEUTROPHILS) 81 % (16-70); WBC DIFF SAMPLE 100
[2016-11-14 10:25] LABS: OVALOCYTES 2+ (NORMAL); PLATELET ESTIMATE SMEAR NORMAL (NORMAL); PLATELET MORPHOLOGY NORMAL (NORMAL); SCAN/DIFF FINAL DIFF MANUAL
--- NOTE | 2016-11-14 11:08 | HHI.PR ---
Subjective Remarks This is a 50yo male with PMHX of HIV who follows with Dr. Samuels as outpatient last seen 6 months ago who admits to being noncompliant with his HIV medications for the past 2 months and presents to [facility] ED with complaints of severe buttock pain secondary to multiple buttocks and perirectal wounds for the past two months. Patient denies seeking any previous treatment. Patient is not the best historian. He denies any worsening of the wounds. When asked why he chose to come in today, patient states he was "just tired of it". He admits to decreased oral intake. He also reports low back pain yesterday that he thought might be attributable to another kidney stone. He denies any back pain presently. He endorses nausea with nonbilious, nonbloody emesis for the past 2-3 days. He denies any fevers but reports one episode of chills. He denies any chest pain or SOB. He denies any previous history of kidney problems. He denies any hematuria, dysuria, hesitancy, slow stream or incomplete emptying. He reports urinating 3 to 4 x during the day and the same at night. In the ED, he has a temp of 100.6. White count is normal. Lactic acid is 0.8. His creatinine is extremely elevated at 7.83. 11/07: Stable in his bedroom discussed with nurse Miss Monreal the patient is febrile and refusing Acetaminophen, consulted ID specialist and seen by Doctor Bozena Chambers she thinks the Fever is related to UTI, has stones, Ulcers in the buttock looked more Herpetic, asked for HSV and VZV serologies, continue Zosyn but removed the Vancomycin, continue wound care and will follow. 11/08: No new issues. 11/09: Seen in his bedroom, was febrile yesterday 102F, Hemoglobin 7.6, Creatinine 6.81, CD4 count less than 20, HSV positive, UA positive for E Coli switched by ID specialist to Ceftriaxone. 11/10: Stable discussed with nurse Miss Bunn has Tachycardia, continue febrile and mild hypertension, continue on Ceftriaxone as per ID specialist. 11/11: no new issues. 11/12: patient discussed with nurse, no complaint at this time and following ID specialist recommendations. 11/13: Seen in his bedroom in the presence of his Partner Mr. Corbin Scott all questions answered to the best of my abilities, specially discussed about the need for Medical compliance. 11/14: stable in his bedroom in the presence of his brother, status post Perm cath placement and first hemodialysis performed, no nausea vomit or diarrhea. Objective Vital Signs Date Time Temp Pulse Resp B/P (MAP) Pulse Ox O2 Delivery O2 Flow Rate FiO2 11/14/16 08:00 99.3 107 17 164/106 (125) 100 11/14/16 07:50 103 11/14/16 04:00 98.3 102 19 152/86 (108) 98 11/14/16 00:00 99.1 99 18 162/100 (120) 100 11/13/16 20:00 Room Air 11/13/16 20:00 98.4 94 18 156/100 (118) 96 11/13/16 20:00 100 11/13/16 16:02 97.7 113 20 155/96 (115) 100 11/13/16 12:16 98.8 98 18 182/104 (130) 98 11/13/16 12:00 98.8 92 20 175/108 (130) 100 11/13/16 11:57 99.5 92 18 177/107 (130) 98 I/O 11/13/16 11/13/16 11/13/16 11/14/16 11/14/16 11/14/16 07:00 15:00 23:00 07:00 15:00 23:00 Intake Total 818 ml 480 ml 520 ml Output Total 100 ml 600 ml 800 ml Balance 718 ml -120 ml -280 ml Intake Oral 240 ml 480 ml 520 ml IV Total 578 ml Output Urine Total 100 ml 600 ml 800 ml # Bowel Movements 0 2 0 Result Diagram: 11/14/16 0854 11/14/16 0854 Imaging Last Impressions Renal Ultrasound 11/05/16 0000 Signed Impressions: Service Date/Time: Saturday, November 05, 2016 19:17 - CONCLUSION: Diffusely echogenic kidneys indicating medical renal disease. Dorian Murry MD Chest X-Ray 11/05/16 0000 Signed Impressions: Service Date/Time: Saturday, November 05, 2016 17:07 - CONCLUSION: 1. Patchy consolidation versus atelectasis in the upper lung zone on the lateral view. 2. 1 cm nodular density in the left lower lung zone on the PA view only. Recommend noncontrast chest CT to evaluate for pulmonary nodule. Dorian Murry MD Abdomen/Pelvis CT 11/05/16 0000 Signed Impressions: Service Date/Time: Saturday, November 05, 2016 17:19 - CONCLUSION: 1. 4 mm calculus in the right renal pelvis/ureteropelvic junction with mild adjacent perinephric/periureteral stranding. No evidence of hydronephrosis. 2. 1 cm round hypodensity in the anterior right mid kidney statistically most likely to represent a cyst. 3. 3.7 cm hypodensity in the right lobe of the liver air the dome of the diaphragm. This finding is nonspecific on noncontrast CT. The most likely etiologies include hemangioma and cyst. It could be further evaluated with ultrasound nonemergent followup MRI of the abdomen. 4. Mild dilated proximal right common iliac artery. Dorian Murry MD Procedures None Other Results Laboratory Tests Test 11/05/16 14:20 11/05/16 16:35 11/06/16 07:30 11/07/16 07:33 Activated Partial Thromboplast Time 32.0 SEC Hemoglobin A1c 6.2 % Lactic Acid Level 0.8 mmol/L Triglycerides Level 189 MG/DL Cholesterol Level 190 MG/DL LDL Cholesterol 115 MG/DL HDL Cholesterol 37.4 MG/DL Cholesterol/HDL Ratio 5.08 RATIO Free Thyroxine 1.39 NG/DL Thyroid Stimulating Hormone 3rd Gen 0.931 uIU/ML Urine Amorphous Sediment RARE Urine Bacteria MANY /hpf Urine Mucus FEW /lpf Microscopic Urinalysis Comment CATH-CULTURE IND Rapid Plasma Reagin NON-REACTIVE Anti-Proteinase 3 (c-ANCA) LESS THAN 1.0 AI Anti-Myeloperoxidase Ab (p-ANCA) LESS THAN 1.0 AI Complement C3 133 MG/DL Complement C4 34 MG/DL Absolute Lymphocytes (Cell Immunity 155 Percent CD3 Cells 58 % Absolute CD3 Count 90 Percent CD3-/CD16+/CD56+ Cells 36 % Absolute CD3-/CD16+/CD56+ Count 61 Percent CD4 Cells 3 % Absolute CD4 Count LESS THAN 20 T-[place]/Suppressor Ratio 0.1 Percent CD8 Cells 53 % Absolute CD8 Count 74 Percent CD19 Cells 5 % Absolute CD19 Count LESS THAN 20 Test 11/07/16 08:33 11/07/16 15:16 11/07/16 17:33 11/08/16 09:20 Total Creatine Kinase 131 U/L Random Vancomycin Level 10.9 COMMENT Anti-Nuclear Antibody Screen NEG Herpes Simplex Virus I IgG Ab Index Positive Herpes Simplex Virus II IgG Index Positive Varicella-Zoster IgG Antibody >4000.00 INDEX Varicella-Zoster IgM Antibody 0.16 Protein Corrected Calcium 8.6 MG/DL Iron Level 25 MCG/DL Total Iron Binding Capacity 118 MCG/DL Percent Iron Saturation 21.3 % Ferritin 2491 NG/ML Albumin/Globulin Ratio 0.80 Qbwvx-2-Adaripgyk 0.35 GM/DL Tskvs-3-Uuwiuspmb 0.85 GM/DL Beta Globulins 0.71 GM/DL Gamma Globulins 0.82 GM/DL Electrophoresis Pathologist Comment Test 11/10/16 12:34 11/11/16 19:15 11/11/16 22:15 11/13/16 04:14 Cytomegalovirus DNA Quant (PCR) <137 IU/mL Erythrocyte Sedimentation Rate GREATER THAN 140 mm/hr C-Reactive Protein 17.00 MG/DL Urine Color LIGHT-YELLOW Urine Turbidity CLEAR Urine pH 6.0 Urine Specific [place] 1.009 Urine Protein 100 mg/dL Urine Glucose (UA) NEG mg/dL Urine Ketones NEG mg/dL Urine Occult Blood SMALL Urine Nitrite NEG Urine Bilirubin NEG Urine Urobilinogen LESS THAN 2.0 MG/DL Urine Leukocyte Esterase NEG Urine RBC 1 /hpf Urine WBC 1 /hpf Urine Squamous Epithelial Cells <1 /hpf Neutrophils (%) (Auto) 86.8 % Lymphocytes (%) (Auto) 2.4 % Monocytes (%) (Auto) 8.9 % Eosinophils (%) (Auto) 1.2 % Basophils (%) (Auto) 0.7 % Neutrophils # (Auto) 4.2 TH/MM3 Lymphocytes # (Auto) 0.1 TH/MM3 Monocytes # (Auto) 0.4 TH/MM3 Eosinophils # (Auto) 0.1 TH/MM3 Basophils # (Auto) 0.0 TH/MM3 Eosinophils % 1 % Test 11/14/16 08:54 White Blood Count 4.2 TH/MM3 Red Blood Count 2.56 MIL/MM3 Hemoglobin 7.3 GM/DL Hematocrit 22.0 % Mean Corpuscular Volume 85.9 FL Mean Corpuscular Hemoglobin 28.7 PG Mean Corpuscular Hemoglobin Concent 33.4 % Red Cell Distribution Width 15.3 % Platelet Count 177 TH/MM3 Mean Platelet Volume 8.1 FL CBC Comment AUTO DIFF Differential Total Cells Counted 100 Neutrophils % (Manual) 81 % Band Neutrophils % 12 % Lymphocytes % 3 % Monocytes % 2 % Neutrophils # (Manual) 4.0 TH/MM3 Metamyelocytes 1 % Myelocytes 1 % Differential Comment FINAL DIFF MANUAL Platelet Estimate NORMAL Platelet Morphology Comment NORMAL Ovalocytes 2+ Prothrombin Time 11.4 SEC Prothromb Time International Ratio 1.0 RATIO Blood Urea Nitrogen 53 MG/DL Creatinine 8.56 MG/DL Random Glucose 79 MG/DL Total Protein 5.9 GM/DL Albumin 2.0 GM/DL Calcium Level 7.9 MG/DL Phosphorus Level 5.5 MG/DL Magnesium Level 2.0 MG/DL Alkaline Phosphatase 48 U/L Aspartate Amino Transf (AST/SGOT) 41 U/L Alanine Aminotransferase (ALT/SGPT) 22 U/L Total Bilirubin 0.3 MG/DL Sodium Level 138 MEQ/L Potassium Level 3.7 MEQ/L Chloride Level 108 MEQ/L Carbon Dioxide Level 17.4 MEQ/L Anion Gap 13 MEQ/L Estimat Glomerular Filtration Rate 8 ML/MIN Objective Remarks GENERAL: This is a well-nourished, well-developed patient, in no apparent distress. Awake and alert. ENT: Nose without bleeding, purulent drainage. (+)Oral thrush. Airway patent. NECK: Trachea midline. No JVD or lymphadenopathy. Supple, nontender, no meningeal signs. CARDIOVASCULAR: Regular rate and rhythm without murmurs, gallops, has tachycardia today. RESPIRATORY: Clear to auscultation. Right upper chest perm cath in place. GASTROINTESTINAL: Abdomen soft, non-tender, nondistended. MUSCULOSKELETAL: Extremities without clubbing, cyanosis, or edema. No joint tenderness, effusion, or edema noted. No calf tenderness. NEUROLOGICAL: Awake and alert. Able to move all extremities. Medications and IVs Current Medications Medications (Trade) Dose Ordered Sig/Nyla Route Start Time Stop Time Status Last Admin (NS Flush) 2 ml UNSCH PRN IV FLUSH 11/05/16 16:15 (NS Flush) 2 ml BID IV FLUSH 11/05/16 21:00 11/13/16 08:45 (Tylenol) 650 mg Q4H PRN PO 11/05/16 16:15 11/13/16 16:17 (Zofran Inj) 4 mg Q6H PRN IVP 11/05/16 16:15 (Heparin Inj) 5,000 units Q12H SQ 11/05/16 17:00 11/13/16 05:34 (Narcan Inj) 0.4 mg UNSCH PRN IV 11/05/16 16:15 (Dee-Colace) 1 tab BID PO 11/05/16 21:00 11/12/16 20:50 (Milk Of Magnesia Liq) 30 ml Q12H PRN PO 11/05/16 16:15 (Senokot) 17.2 mg Q12H PRN PO 11/05/16 16:15 (Dulcolax Supp) 10 mg DAILY PRN RECTAL 11/05/16 16:15 (Lactulose Liq) 30 ml DAILY PRN PO 11/05/16 16:15 ([place] 7.5-325 Mg) 1 tab Q4H PRN PO 11/05/16 16:15 (Mycostatin Liq) 5 ml QID SWISH-SWAL 11/05/16 18:00 11/14/16 09:31 (Valtrex) 500 mg Q8HR PO 11/08/16 09:15 11/15/16 23:00 11/14/16 06:01 (Sodium Bicarbonate) 650 mg Q12HR PO 11/09/16 21:00 11/14/16 09:31 Ceftriaxone Sodium 2000 mg/ Sodium Chloride 100 ml @ 200 mls/hr Q24H IV 11/09/16 18:00 11/13/16 16:16 (Levaquin) 250 mg Q48H PO 11/11/16 16:00 11/13/16 16:16 (Zithromax) 250 mg DAILY PO 11/11/16 15:15 11/14/16 09:31 Sodium Bicarbonate 75 meq/Sodium Chloride 1,075 ml @ 75 mls/hr [id number] IV 11/12/16 21:00 11/14/16 01:54 (Lopressor) 25 mg Q12HR PO 11/13/16 21:00 11/14/16 09:31 (Pill Splitter) 1 ea UNSCH PRN OTHER 11/13/16 14:30 Sodium Chloride 1,000 ml @ 0 mls/hr Q0M PRN IV 11/13/16 17:02 (Heparin Inj) 8,000 units UNSCH PRN IVF 11/13/16 17:15 Sodium Chloride 1,000 ml @ 200 mls/hr Q5H PRN IV 11/13/16 17:02 Sodium Chloride 1,000 ml @ 0 mls/hr Q0M PRN IV 11/13/16 17:02 (Mannitol Inj) 12.5 gm UNSCH PRN IV 11/13/16 17:15 (Albumin 25% Inj) 25 gm UNSCH PRN IV 11/13/16 17:15 (NS Flush) 5 ml UNSCH PRN IV FLUSH 11/13/16 17:15 (Heparin Inj) UNSCH PRN .XX 11/13/16 17:15 (Gentamicin (Dialysis) Inj) 20 mg UNSCH PRN IV 11/13/16 17:15 (Zofran Inj) 4 mg UNSCH PRN IV 11/13/16 17:15 (Tylenol) 650 mg UNSCH PRN PO 11/13/16 17:15 (Benadryl) 25 mg UNSCH PRN PO 11/13/16 17:15 (Nitrostat Sl) 0.4 mg UNSCH PRN SL 11/13/16 17:15 (Catapres) 0.1 mg UNSCH PRN PO 11/13/16 17:15 (Gelfoam 12 Mm/7 Mm Top) 1 foam UNSCH PRN TOP 11/13/16 17:15 A/P Assessment and Plan 50yo male with PMHX of HIV who follows with Dr. Samuels as outpatient last seen 6 months ago who admits to being noncompliant with his HIV medications for the past 2 months and presents to [facility] ED with complaints of severe buttock pain secondary to multiple buttock and perirectal wounds for the past two months. 1. Severe sepsis secondary to UTI : Improving, recommended by ID to switch from Zosyn to Ceftriaxone today to cover E coli in Urine. 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 2. CKD V creatinine 7.83, Mild improvement to 6.75. he has history of Kidney stones. CT abd/pelvis r/o obstructive nephrolithiasis, continue IV fluids and avoid Nephrotoxic agents. Consulted Nephrology specialist, once stable Nephrology consider Kidney Biopsy. today status post Perm cath and first dialysis. 3. HIV CD4 count less than 20 patient admits to being noncompliant with his meds for the past 2 mos. 4. Oral Thrush Nystatin s/s Improving. 5. Anemia, on chronic disease status post blood transfusion today Hb 7.3 6. Hypertension and Tachycardia started on Metoprolol will increase to 25 mg bid. 7. Medical non compliance. 8. 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 DVT prophylaxis Heparin sq Discussed with Patient and his brother, all questions answered to the best of my abilities. Discharge Planning Not yet cleared by specialists. Ze Chan MD Nov 14, 2016 11:08
--- NOTE | 2016-11-14 11:38 | PD.RAD ---
Post Procedure Progress Note Pre Procedure Diagnosis: (1) Renal failure Post Procedure Diagnosis: (1) Renal failure Procedure Date: Nov 14, 2016 Supervising Radiologist: William Modi Proceduralist/Assist: RT Carla(R), RT Lela(R) Anesthesia: Local Plan of Activity Patient to Unit: Nursing Unit Patient Condition: Good See PACS Report for procedural detail/treatment Central Venous Access Device Procedure 1 Right Internal Jugular Hemodialysis Catheter Non-Tunneled Placement dual lumen Malay: 14 PICC Line Length (cm): 15 William Modi MD Nov 14, 2016 11:38
[2016-11-14] MEDS ORDERED: SODIUM CHLORIDE 0.9% FLUSH 10 ML FLUSH IVF PRN (11:45)
[2016-11-14] MEDS ORDERED: HEPARIN SODIUM - IV 2,000 UNITS/2 ML VIAL IV FLUSH PRN (11:45)
--- NOTE | 2016-11-14 12:48 | RADRPT ---
EXAM DATE/TIME: 11/14/2016 11:24 [facility] COMPARISON: No previous studies available for comparison. INDICATIONS : Patient presents with renal failure in need of dialysis catheter placement. MEDICAL HISTORY : HIV Kidney stones SURGICAL HISTORY : Patient denies any previous surgical history ENCOUNTER: Initial ACUITY: 2 weeks PAIN SCORE: 0/10 LOCATION: N/A FLUORO TIME: 0.5 minutes IMAGE SERIES: 0 ACCESS: Right internal jugular vein DEVICE(S): 1.) 14 Filipino dual lumen 15 cm Schon catheter PROCEDURE : 1. Ultrasound guided venipuncture. 2. Fluoroscopic guidance. 3. Central line placement. The risks, benefits and alternatives to the procedure were explained and verbal and written consent w as obtained. The site was prepped in sterile fashion. Full sterile technique was used, including ca p, mask, sterile gloves and gown and a large sterile sheet. Hand hygiene and 2% chlorhexidine prep w as utilized per protocol for cutaneous antisepsis with appropriate dry time for site. The skin and subcutaneous tissues were infiltrated with local anesthetic solution. A suitable site a shaunna the vein was selected with ultrasound and fluoroscopic guidance. A small incision was made. Th e vein was accessed under direct ultrasound visualization using the micropuncture technique. The chanda ropuncture set was exchanged for a 0.035 wire. The tract was dilated. The catheter was advanced int o position under direct fluoroscopic visualization. The catheter was fixed in place with suture and a sterile dressing was applied. The patient tolerated the procedure well and there were no complications. CONCLUSION: Uncomplicated line placement as above. William Modi MD on November 14, 2016 at 12:46 Board Certified Radiologist. This report was verified electronically.
[2016-11-14 16:00] VITALS: BP 180/80; PULSE 107; RESP 17; TEMP 98.2; O2SAT 100
[2016-11-14] MEDS: cefTRIAXone INJ 2,000 MG in SODIUM CHLORIDE 0.9% INJ 100 ML IV SCH (17:31)
--- NOTE | 2016-11-14 18:07 | HHI.NPPN ---
Subjective History of Present Illness 50-year-old male with past medical history of HIV disease for more than 20 years and history of renal stone who came to the hospital with complaint of back pain. The patient has back pain going on for the last 2 months off and on and he came to the emergency department yesterday with worsening pain. Additional Remarks Patient is alert, seen after HD,not in distress. Review of Systems General Constitutional: Fatigue Cardiovascular Cardiac: MIRZA Objective Data Data Vital Signs Date Time Temp Pulse Resp B/P (MAP) Pulse Ox O2 Delivery O2 Flow Rate FiO2 11/14/16 16:00 98.2 107 17 180/80 (113) 100 11/14/16 08:00 Room Air 11/14/16 08:00 99.3 107 17 164/106 (125) 100 11/14/16 07:50 103 11/14/16 04:00 98.3 102 19 152/86 (108) 98 11/14/16 00:00 99.1 99 18 162/100 (120) 100 11/13/16 20:00 Room Air 11/13/16 20:00 98.4 94 18 156/100 (118) 96 11/13/16 20:00 100 -: 11/14/16 0854 11/14/16 0854 Physical Exam General Appearance: No Acute Distress, Comfortable Eyes Eye Exam: Pupils Equal Throat Throat Exam: Oral Mucosa [place] & Moist Pulmonary Resp Exam: Breath Sounds Equal, No Distress, Rhonchi, Decreased Bases Cardiology CV Exam: Regular, Normal Sinus Rhythm Gastrointestinal/Abdomen GI Exam: Soft, Non-Tender, Bowel Sounds Present Extremeties Extremities Exam: No Edema Neurologic Neuro Exam: Alert, Awake, Oriented Psychiatric Psych Exam: Appropriate Responses Assessment/Plan Assessment Summary: MIKE/Acute Renal Failure Problem List: (1) Renal failure ICD Codes: N19 - Unspecified kidney failure Status: Acute (2) Sepsis ICD Codes: A41.9 - Sepsis, unspecified organism Status: Acute (3) Open wound of scrotum ICD Codes: S31.30XA - Unspecified open wound of scrotum and testes, initial encounter Status: Acute Plan Patient has again increase in the BUN and Creatinine. Remain non oliguric. SPEP was negative. Complements normal, other serology also negative. HD started and done in AM after the Vascath. Tolerated well. BP is on higher side, will follow. Problem Qualifiers (1) Renal failure: (2) Sepsis: Kwadwo Shah MD Nov 14, 2016 18:07
[2016-11-14] MEDS: ACETAMINOPHEN 325 MG TAB PO PRN (19:55)
[2016-11-14 20:00] VITALS: BP_SYST 160; BP_SYST 173; BP_DIAS 100; BP_DIAS 90; PULSE 112; RESP 20; TEMP 101; O2SAT 100
[2016-11-15] VITALS (9 sets, daily range): BP systolic 150–170; BP diastolic 88–110; PULSE 93–118; RESP 18–22; TEMP 97.6–102.3; O2SAT 97–100
[2016-11-15] MEDS: HEPARIN SODIUM - SQ 10,000 UNITS/ML VIAL SQ SCH ×2 (05:00→17:57)
[2016-11-15] MEDS: valACYclovir HCL 500 MG TAB PO SCH ×3 (05:03→20:39)
[2016-11-15] MEDS: SODIUM BICARBONATE 8.4% INJ 75 MEQ in SODIUM CHLOR 0.45% 1000 ML INJ 1,000 ML IV SCH ×2 (06:20→20:40)
[2016-11-15] MEDS: SODIUM CHLORIDE 0.9% FLUSH 10 ML FLUSH IV FLUSH SCH ×2 (08:05→20:39)
[2016-11-15] MEDS: SODIUM CHLOR 0.9% 1000 ML INJ 1,000 ML IV PRN (11:05)
[2016-11-15] MEDS: GENTAMICIN SULFATE (DIALYSIS USE ONLY) 20 MG/2 ML VIAL IV PRN (11:05)
[2016-11-15] MEDS: HEPARIN SODIUM - IV 10,000 UNITS/10 ML VIAL PRN (11:05)
[2016-11-15] MEDS: DOCUSATE SODIUM 50 MG/SENNA 8.6 MG TAB PO SCH ×2 (13:13→20:39)
[2016-11-15] MEDS: SODIUM BICARBONATE 650 MG TAB PO SCH ×2 (13:13→20:38)
[2016-11-15] MEDS: METOPROLOL TARTRATE 25 MG TAB PO SCH ×2 (13:13→20:39)
[2016-11-15] MEDS: AZITHROMYCIN 250 MG TAB PO SCH (13:14)
[2016-11-15] MEDS: NYSTATIN SUSP 500,000 U/5 ML CUP SWISH-SWAL SCH ×3 (13:14→20:38)
--- NOTE | 2016-11-15 13:36 | HHI.IDPN ---
Subjective Subjective Remarks Patient is a 50-year-old male, with known HIV, the last 23 years, states his last CD4 count was around 2, has been following with an HIV provider over the last 4 years, percent to the hospital complaining all severe buttock pain which has been present for the last 2 months. He apparently initially noted some blister looking lesions that are painful on his right buttock. It spread, and he thought it was no resolve on its own, but they persisted and he continued to have problem. He initially also had some right sided abdominal pain, and thought that it was his kidney stone. He has had previous problem with kidney stone. Patient stated that he passed the stone. He currently denies any dysuria, and denies any prior history of hematuria. He has not had any fever or chills prior to admission, but since admission patient has had fevers. Denies any respiratory complaint. Denies any diarrhea. He's had some on and off vomiting, and this is the reason why he has not been very compliant with his HIV medication. On presentation, patient was found to have an abnormal urinalysis. His creatinine was 7+. CT of the abdomen and pelvis showed some stones but there is no evidence of hydronephrosis. Chest x-ray is unremarkable. As noted to have multiple ulcers in the room right buttock, as well as in the perirectal area. Some ulcers noted also in the scrotal area. Infectious disease consultation has been requested to evaluate the patient. Notes reviewed Still with intermittent fevers, not as frequent Started on HD yesterday, had HD today also Sores in buttock and perineum drying up Had some diarrhea, 3 yesterday, one today No abdominal pain No resp complaints BC AFB pending CMV negative HSV 1 and 2 (+) VZV IgM negative, IgG (+) BC negative UC mixed bacteria Wound C/S E coli CD4 <20 ESR >140 CRP 17 Antibiotics Rocephin Valtrex Levaquin Zithromax Lines PIV Past Medical History HIV, for 20+years, noncompliant with medications for the past 2 months Kidney stones Allergies: Coded Allergies: No Known Allergies (Unverified , 11/05/16) Objective . Vital Signs Date Time Temp Pulse Resp B/P (MAP) Pulse Ox O2 Delivery O2 Flow Rate FiO2 11/15/16 08:00 99.8 115 18 163/105 (124) 97 11/15/16 07:54 Room Air 11/15/16 04:48 111 11/15/16 04:00 97.9 106 22 170/ 100 170/110 (130) 11/15/16 00:00 97.6 93 20 150/88 (108) 100 11/14/16 20:30 Room Air 11/14/16 20:00 101.0 112 20 173/100 (124) 100 160/90 (113) 11/14/16 16:00 98.2 107 17 180/80 (113) 100 . Laboratory Tests Test 11/14/16 08:54 White Blood Count 4.2 TH/MM3 Red Blood Count 2.56 MIL/MM3 Hemoglobin 7.3 GM/DL Hematocrit 22.0 % Mean Corpuscular Volume 85.9 FL Mean Corpuscular Hemoglobin 28.7 PG Mean Corpuscular Hemoglobin Concent 33.4 % Red Cell Distribution Width 15.3 % Platelet Count 177 TH/MM3 Mean Platelet Volume 8.1 FL CBC Comment AUTO DIFF Differential Total Cells Counted 100 Neutrophils % (Manual) 81 % Band Neutrophils % 12 % Lymphocytes % 3 % Monocytes % 2 % Neutrophils # (Manual) 4.0 TH/MM3 Metamyelocytes 1 % Myelocytes 1 % Differential Comment FINAL DIFF MANUAL Platelet Estimate NORMAL Platelet Morphology Comment NORMAL Ovalocytes 2+ Laboratory Tests Test 11/14/16 08:54 Blood Urea Nitrogen 53 MG/DL Creatinine 8.56 MG/DL Random Glucose 79 MG/DL Total Protein 5.9 GM/DL Albumin 2.0 GM/DL Calcium Level 7.9 MG/DL Phosphorus Level 5.5 MG/DL Magnesium Level 2.0 MG/DL Alkaline Phosphatase 48 U/L Aspartate Amino Transf (AST/SGOT) 41 U/L Alanine Aminotransferase (ALT/SGPT) 22 U/L Total Bilirubin 0.3 MG/DL Sodium Level 138 MEQ/L Potassium Level 3.7 MEQ/L Chloride Level 108 MEQ/L Carbon Dioxide Level 17.4 MEQ/L Anion Gap 13 MEQ/L Estimat Glomerular Filtration Rate 8 ML/MIN Microbiology Date/Time Source Procedure Growth Status 11/13/16 15:30 Blood Peripheral Aerobic Blood Culture - Preliminary NO GROWTH IN 2 DAYS Resulted 11/13/16 15:30 Blood Peripheral Anaerobic Blood Culture - Preliminary NO GROWTH IN 2 DAYS Resulted 11/13/16 15:25 Blood Peripheral Aerobic Blood Culture - Preliminary NO GROWTH IN 2 DAYS Resulted 11/13/16 15:25 Blood Peripheral Anaerobic Blood Culture - Preliminary NO GROWTH IN 2 DAYS Resulted Imaging Last Impressions Renal Ultrasound 11/05/16 0000 Signed Impressions: Service Date/Time: Saturday, November 05, 2016 19:17 - CONCLUSION: Diffusely echogenic kidneys indicating medical renal disease. Dorian Murry MD Chest X-Ray 11/05/16 0000 Signed Impressions: Service Date/Time: Saturday, November 05, 2016 17:07 - CONCLUSION: 1. Patchy consolidation versus atelectasis in the upper lung zone on the lateral view. 2. 1 cm nodular density in the left lower lung zone on the PA view only. Recommend noncontrast chest CT to evaluate for pulmonary nodule. Dorian Murry MD Abdomen/Pelvis CT 11/05/16 Signed Impressions: Service Date/Time: Saturday, November 05, 2016 17:19 - CONCLUSION: 1. 4 mm calculus in the right renal pelvis/ureteropelvic junction with mild adjacent perinephric/periureteral stranding. No evidence of hydronephrosis. 2. 1 cm round hypodensity in the anterior right mid kidney statistically most likely to represent a cyst. 3. 3.7 cm hypodensity in the right lobe of the liver air the dome of the diaphragm. This finding is nonspecific on noncontrast CT. The most likely etiologies include hemangioma and cyst. It could be further evaluated with ultrasound nonemergent followup MRI of the abdomen. 4. Mild dilated proximal right common iliac artery. Dorian Murry MD Physical Exam GENERAL: awake and alert, not in respiratory distress. SKIN: Warm and dry. He has hyperpigmented macules in his UE. HEAD: Atraumatic. Normocephalic. No temporal wasting, or tenderness. EYES: [place] conjunctiva. No petechia or hemorrhage. No scleral icterus. No injection or drainage. EARS, NOSE AND THROAT: Nose without bleeding or purulent nasal discharge. Mucous membranes pink and moist. No oral lesions noted. No exudate. Has improving oral thrush. NECK: Trachea midline. Supple and not tender, no meningeal signs CARDIOVASCULAR: Regular rate and rhythm. No murmurs, rubs or gallops heard RESPIRATORY: Clear to auscultation. Breath sounds equal bilaterally. No rales , wheezing or rhonchi ABDOMEN: Soft, non-tender, nondistended. Bowel sounds present and normoactive. No guarding. No rebound. No organomegaly. EXTREMITIES: No clubbing, cyanosis, or edema.No joint effusion, has good ROM. No calf tenderness. Well perfused and warm. BACK: He has multiple ulcers in his R buttock, and smaller ulcers in perirectal area, no surrounding cellulitis, lesions clean and much improved, no purulence NEUROLOGICAL: Non-focal PSYCHIATRIC: Normal affect, calm and cooperative. LINE: No evidence of infection : No penile ulcer or drainage noted Assessment & Plan Remarks IMPRESSION Fevers, persistent - repeat UA negative - has stones, patient stated he passed the stones, no obstruction on imaging studies - ?infection related to his chronic HIV - ulcers in buttock, doubt causing fevers, looks herpetic, ?VZV Renal failure HIV RECOMMENDATION Continue Rocephin to cover UTI - if stable D/C next day or two If more diarrhea send stool for C diff Continue Leva/Zithromax empiric for LULU Continue valtrex give 14 days then chronic suppression with Acyclovir Tagged WBC scan Wound care Follow temps Monitor progress Explained plan to patient D/W Dr Dunham (HEPAS) Bozena Chambers MD Nov 15, 2016 13:36
--- NOTE | 2016-11-15 14:08 | RADRPT ---
EXAM DATE/TIME: 11/14/2016 11:38 [facility] COMPARISON: TEMP DIALYSIS CATHETER PLCMT W/US, RIGHT, November 14, 2016, 11:24. CHEST PA & LAT, November 13, 2016, 1 6:02. INDICATIONS : Fever of unknown origin for two months with ulcers on right buttox and scrotum. DOSE: 21 mCi Tc99m Ceretec labeled white blood cells IV PLANAR IMAGIN min, 3 hrs, 20 hrs MEDICAL HISTORY : HIV. SURGICAL HISTORY : Vas cath placement. ENCOUNTER: Initial ACUITY: 2 weeks PAIN SCALE: 2/10 LOCATION: Right [place]. TECHNIQUE: Following the in vitro labeling of autologous white cells and reinjection, whole body scan was perfor med at specified times. FINDINGS: On delayed scanning, there is focal uptake associated with the site of the patient's vas catheter whi ch is normal. The biodistribution of white cells is elsewhere unremarkable. No focal findings to sugg est site to explain fever of unknown origin. CONCLUSION: Negative scan Solitario Diaz MD on November 15, 2016 at 13:53 Board Certified Radiologist. This report was verified electronically.
--- NOTE | 2016-11-15 16:17 | HHI.PR ---
Subjective Remarks Pt evaluated earlier today states that he is feeling better. States that the lesions on his buttocks are drying and less painful. Tolerating a diet. No CP/SOB/N/V concerned about what these lesions are and how contagious they could be. He has a friend who is having a baby and he doesn't want to get her sick Objective Vitals Vital Signs Date Time Temp Pulse Resp B/P (MAP) Pulse Ox O2 Delivery O2 Flow Rate FiO2 11/15/16 13:30 99.2 118 18 162/107 (125) 100 11/15/16 08:00 99.8 115 18 163/105 (124) 97 11/15/16 07:54 Room Air 11/15/16 04:48 111 11/15/16 04:00 97.9 106 22 170/ 100 170/110 (130) 11/15/16 00:00 97.6 93 20 150/88 (108) 100 11/14/16 20:30 Room Air 11/14/16 20:00 101.0 112 20 173/100 (124) 100 160/90 (113) I/O 11/14/16 11/14/16 11/14/16 11/15/16 11/15/16 11/15/16 07:00 15:00 23:00 07:00 15:00 23:00 Intake Total 520 ml 1153 ml Output Total 800 ml 950 ml Balance -280 ml 203 ml Intake Oral 520 ml 860 ml IV Total 293 ml Output Urine Total 800 ml 950 ml # Voids 3 # Bowel Movements 0 2 Result Diagram: 11/14/16 0854 11/14/16 0854 Imaging Last Impressions Catheter Placement X-Ray 11/14/16 0600 Signed Impressions: Service Date/Time: Monday, November 14, 2016 11:24 - CONCLUSION: Uncomplicated line placement as above. William Modi MD Chest X-Ray 11/13/16 0000 Signed Impressions: Service Date/Time: Sunday, November 13, 2016 16:02 - CONCLUSION: No acute cardiopulmonary disease. Quincy Medellin MD Renal Ultrasound 11/05/16 0000 Signed Impressions: Service Date/Time: Saturday, November 05, 2016 19:17 - CONCLUSION: Diffusely echogenic kidneys indicating medical renal disease. Dorian Murry MD Abdomen/Pelvis CT 11/05/16 0000 Signed Impressions: Service Date/Time: Saturday, November 05, 2016 17:19 - CONCLUSION: 1. 4 mm calculus in the right renal pelvis/ureteropelvic junction with mild adjacent perinephric/periureteral stranding. No evidence of hydronephrosis. 2. 1 cm round hypodensity in the anterior right mid kidney statistically most likely to represent a cyst. 3. 3.7 cm hypodensity in the right lobe of the liver air the dome of the diaphragm. This finding is nonspecific on noncontrast CT. The most likely etiologies include hemangioma and cyst. It could be further evaluated with ultrasound nonemergent followup MRI of the abdomen. 4. Mild dilated proximal right common iliac artery. Dorian Murry MD Objective Remarks GENERAL: thin male, AA, Awake and alert. ENT: Nose without drainage. (+)Oral thrush. Airway patent. NECK: Trachea midline. No JVD or lymphadenopathy. Supple, nontender, no meningeal signs. CARDIOVASCULAR: Regular rate and rhythm without murmurs RESPIRATORY: Clear to auscultation. Right upper chest perm cath in place. GASTROINTESTINAL: Abdomen soft, non-tender, nondistended. Buttock/scrotal area: open lesions w no oozing or drainage, no signs of infection MUSCULOSKELETAL: Extremities without edema. No joint tenderness, effusion, or edema noted. No calf tenderness. NEUROLOGICAL: Awake and alert. Able to move all extremities. A/P Assessment and Plan 50yo male with PMHX of HIV who follows with Dr. Samuels as outpatient last seen 6 months ago who admits to being noncompliant with his HIV medications for the past 2 months and presents to [facility] ED with complaints of severe buttock pain secondary to multiple buttock and perirectal wounds for the past two months. 1. Severe sepsis secondary to UTI : s/p Zosyn, now on Ceftriaxone to cover E coli. 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 Tmax of 101 last night. Valtrex 14 days then chronic suppression with Acyclovir Tagged WBC scan 2. CKD V creatinine 8.56 yesterday. s/p HD yesterday and today. history of Kidney stones. CT abd/pelvis r/o obstructive nephrolithiasis, continue IV fluids and avoid Nephrotoxic agents. Nephrology following, status post Perm cath placement. Possible kidney Biopsy once infection is controlled 3. HIV CD4 count less than 20 patient admits to being noncompliant with his meds for the past 2 mos. Pt encouraged to be compliant. 4. Oral Thrush Nystatin, monitor 5. Anemia, on chronic disease status post 1unit PRBC. monitor. 6. Hypertension and Tachycardia: on Metoprolol will increase to 25 mg bid. 7. Medical non compliance. 8. Buttock and peter-rectal wounds HSV positive as indicated by ID specialist more Herpetic lesions. DVT prophylaxis Heparin sq Discharge Planning awaiting final recs from ID and currently pt on HD, will need clearance from nephrology as well. Monitor Macy Jackson MD Nov 15, 2016 16:17
[2016-11-15] MEDS: LEVOFLOXACIN 250 MG TAB PO SCH (17:57)
[2016-11-15] MEDS: cefTRIAXone INJ 2,000 MG in SODIUM CHLORIDE 0.9% INJ 100 ML IV SCH (17:57)
--- NOTE | 2016-11-15 18:20 | HHI.NPPN ---
Subjective History of Present Illness 50-year-old male with past medical history of HIV disease for more than 20 years and history of renal stone who came to the hospital with complaint of back pain. The patient has back pain going on for the last 2 months off and on and he came to the emergency department yesterday with worsening pain. Additional Remarks Patient is alert, no SOB, off and on has low grade fever. Review of Systems General Constitutional: Fatigue Cardiovascular Cardiac: MIRZA Objective Data Data Vital Signs Date Time Temp Pulse Resp B/P (MAP) Pulse Ox O2 Delivery O2 Flow Rate FiO2 11/15/16 16:46 97 11/15/16 16:00 99.8 98 18 151/93 (112) 97 11/15/16 13:30 99.2 118 18 162/107 (125) 100 11/15/16 08:00 99.8 115 18 163/105 (124) 97 11/15/16 07:54 Room Air 11/15/16 04:48 111 11/15/16 04:00 97.9 106 22 170/ 100 170/110 (130) 11/15/16 00:00 97.6 93 20 150/88 (108) 100 11/14/16 20:30 Room Air 11/14/16 20:00 101.0 112 20 173/100 (124) 100 160/90 (113) -: 11/14/16 0854 11/14/16 0854 Physical Exam General Appearance: No Acute Distress, Comfortable Eyes Eye Exam: Pupils Equal Throat Throat Exam: Oral Mucosa [place] & Moist Pulmonary Resp Exam: Breath Sounds Equal, No Distress, Rhonchi, Decreased Bases Cardiology CV Exam: Regular, Normal Sinus Rhythm Gastrointestinal/Abdomen GI Exam: Soft, Non-Tender, Bowel Sounds Present Extremeties Extremities Exam: No Edema Neurologic Neuro Exam: Alert, Awake, Oriented Psychiatric Psych Exam: Appropriate Responses Assessment/Plan Assessment Summary: MIKE/Acute Renal Failure Problem List: (1) Renal failure ICD Codes: N19 - Unspecified kidney failure Status: Acute (2) Sepsis ICD Codes: A41.9 - Sepsis, unspecified organism Status: Acute (3) Open wound of scrotum ICD Codes: S31.30XA - Unspecified open wound of scrotum and testes, initial encounter Status: Acute Plan Patient has again increase in the BUN and Creatinine. Remain non oliguric. SPEP was negative. Complements normal, other serology also negative. HD done in the AM. Tolerated well. BP is on higher side, will follow. Problem Qualifiers (1) Renal failure: (2) Sepsis: Kwadwo Shah MD Nov 15, 2016 18:20
[2016-11-15] MEDS: ACETAMINOPHEN 325 MG TAB PO PRN ×2 (20:39→20:40)
[2016-11-16] VITALS (15 sets, daily range): BP systolic 152–176; BP diastolic 94–113; PULSE 71–114; RESP 17–20; TEMP 98.2–102.3; O2SAT 96–100
[2016-11-16] MEDS: SODIUM BICARBONATE 8.4% INJ 75 MEQ in SODIUM CHLOR 0.45% 1000 ML INJ 1,000 ML IV SCH ×2
[2016-11-16 04:58] LABS: BASOPHIL % 0.2 % (0.0-2.0); EOSINOPHIL % 0.9 % (0.0-4.0); LYMPH % 2.2 % (9.0-44.0); LYMPHOCYTE # 0.1 TH/MM3 (1.0-4.8); MEAN CELL VOLUME 85.5 FL (80.0-100.0); MEAN CORPUSCULAR HEMOGLOBIN 29.1 PG (27.0-34.0); MEAN CORPUSCULAR HGB CONC 34.1 % (32.0-36.0); MONO % 11.4 % (0.0-8.0); NEUT % 85.3 % (16.0-70.0); PLATELET COUNT 120 TH/MM3 (150-450); RED BLOOD COUNT 2.28 MIL/MM3 (4.50-5.90); WHITE BLOOD COUNT 3.6 TH/MM3 (4.0-11.0)
[2016-11-16] MEDS: HEPARIN SODIUM - SQ 10,000 UNITS/ML VIAL SQ SCH ×2 (05:00→17:00)
[2016-11-16 05:01] LABS: HEMO FLAGS AUTO DIFF
[2016-11-16 05:05] LABS: HEMATOCRIT 19.5 % (39.0-51.0)
[2016-11-16 05:16] LABS: BICARBONATE 37.3 MEQ/L (21.0-32.0)
[2016-11-16 05:37] LABS: CALCIUM-PROTEIN CORRECTED 7.2 MG/DL (8.5-10.1); POTASSIUM 2.5 MEQ/L (3.5-5.1)
[2016-11-16] MEDS ORDERED: POTASSIUM CHLORIDE 25 MEQ EFFERVESCENT TAB PO ONE (06:00)
[2016-11-16] MEDS: POTASSIUM CHLOR 20 MEQ PREMIX 100 ML IV SCH ×2 (06:37→07:49)
[2016-11-16] MEDS: ACETAMINOPHEN 325 MG TAB PO PRN ×3 (06:38→21:53)
[2016-11-16] MEDS: SODIUM CHLORIDE 0.9% FLUSH 10 ML FLUSH IV FLUSH SCH ×2 (07:16→20:21)
[2016-11-16] MEDS: AZITHROMYCIN 250 MG TAB PO SCH (07:49)
[2016-11-16] MEDS: METOPROLOL TARTRATE 25 MG TAB PO SCH ×2 (07:49→20:19)
[2016-11-16] MEDS: SODIUM BICARBONATE 650 MG TAB PO SCH (07:49)
[2016-11-16] MEDS: DOCUSATE SODIUM 50 MG/SENNA 8.6 MG TAB PO SCH ×2 (07:49→20:22)
[2016-11-16] MEDS: NYSTATIN SUSP 500,000 U/5 ML CUP SWISH-SWAL SCH ×4 (07:50→20:18)
[2016-11-16 08:08] LABS: SCAN/DIFF AUTO DIFF CONFIRMED
[2016-11-16] MEDS: cloNIDine HCL 0.1 MG TAB PO PRN ×2 (15:03→21:54)
[2016-11-16] MEDS: LEVOFLOXACIN 250 MG TAB PO SCH (15:16)
--- NOTE | 2016-11-16 16:59 | HHI.NPPN ---
Subjective History of Present Illness 50-year-old male with past medical history of HIV disease for more than 20 years and history of renal stone who came to the hospital with complaint of back pain. The patient has back pain going on for the last 2 months off and on and he came to the emergency department yesterday with worsening pain. Additional Remarks Patient is alert, no SOB, spike fever again. Review of Systems General Constitutional: Fatigue Cardiovascular Cardiac: MIRZA Objective Data Data 11/16/16 11/17/16 18:59 06:59 Intake Total 270 ml Balance 270 ml Packed Cells 250 ml Blood Product IV Normal Saline Flush 20 ml Vital Signs Date Time Temp Pulse Resp B/P (MAP) Pulse Ox O2 Delivery O2 Flow Rate FiO2 11/16/16 14:27 101.9 18 176/102 98 11/16/16 12:27 Room Air 11/16/16 12:12 99.0 99 18 153/110 (124) 100 11/16/16 11:04 98.5 97 17 158/100 98 11/16/16 10:44 98.3 97 20 163/94 11/16/16 08:00 99.3 113 20 156/98 (117) 96 11/16/16 04:00 99.1 71 20 157/97 (117) 100 11/16/16 00:00 98.2 79 20 152/98 (116) 99 11/15/16 20:00 102.3 107 20 157/91 (113) 99 11/15/16 20:00 Room Air 11/15/16 20:00 100 -: 11/16/16 0409 11/16/16 0409 Physical Exam General Appearance: No Acute Distress, Comfortable Eyes Eye Exam: Pupils Equal Throat Throat Exam: Oral Mucosa [place] & Moist Pulmonary Resp Exam: Breath Sounds Equal, No Distress, Rhonchi, Decreased Bases Cardiology CV Exam: Regular, Normal Sinus Rhythm Gastrointestinal/Abdomen GI Exam: Soft, Non-Tender, Bowel Sounds Present Extremeties Extremities Exam: No Edema Neurologic Neuro Exam: Alert, Awake, Oriented Psychiatric Psych Exam: Appropriate Responses Assessment/Plan Assessment Summary: MIKE/Acute Renal Failure Problem List: (1) Renal failure ICD Codes: N19 - Unspecified kidney failure Status: Acute (2) Sepsis ICD Codes: A41.9 - Sepsis, unspecified organism Status: Acute (3) Open wound of scrotum ICD Codes: S31.30XA - Unspecified open wound of scrotum and testes, initial encounter Status: Acute Plan Patient has again increase in the BUN and Creatinine. Remain non oliguric. SPEP was negative. Complements normal, other serology also negative. BP is on higher side, will increase Metoprolol to 50 mg BID. HD in AM. If renal function will not improve, will consider Renal Biopsy. Problem Qualifiers (1) Renal failure: (2) Sepsis: Kwadwo Shah MD Nov 16, 2016 16:59
[2016-11-16] MEDS: cefTRIAXone INJ 2,000 MG in SODIUM CHLORIDE 0.9% INJ 100 ML IV SCH (17:01)
--- NOTE | 2016-11-16 17:51 | HHI.PR ---
Subjective Remarks Follow-up for anemia No obvious bleeding, hemoglobin is low, undergoing transfusion. MAXIMUM TEMPERATURE 101.9 after 1 unit of packed red blood cells. Objective Vitals Vital Signs Date Time Temp Pulse Resp B/P (MAP) Pulse Ox O2 Delivery O2 Flow Rate FiO2 11/16/16 16:00 102.3 102 19 172/96 (121) 96 11/16/16 14:27 101.9 18 176/102 98 11/16/16 12:27 Room Air 11/16/16 12:12 99.0 99 18 153/110 (124) 100 11/16/16 11:04 98.5 97 17 158/100 98 11/16/16 10:44 98.3 97 20 163/94 11/16/16 08:00 99.3 113 20 156/98 (117) 96 11/16/16 04:00 99.1 71 20 157/97 (117) 100 11/16/16 00:00 98.2 79 20 152/98 (116) 99 11/15/16 20:00 102.3 107 20 157/91 (113) 99 11/15/16 20:00 Room Air 11/15/16 20:00 100 I/O 11/15/16 11/15/16 11/15/16 11/16/16 11/16/16 11/16/16 06:59 14:59 22:59 06:59 14:59 22:59 Intake Total 1000 ml 960 ml 1525 ml 270 ml Output Total 100 ml Balance 1000 ml 860 ml 1525 ml 270 ml Intake Oral 960 ml IV Total 1000 ml 1525 ml Packed Cells 250 ml Blood Product IV Normal Saline Flush 20 ml Output Urine Total 100 ml # Bowel Movements 0 Result Diagram: 11/16/1640811/16/16408 Objective Remarks GENERAL: thin male, AA, Awake and alert. ENT: Nose without drainage. (+)Oral thrush. Airway patent. RESPIRATORY: Clear to auscultation. Right upper chest perm cath in place. GASTROINTESTINAL: Abdomen soft, non-tender, nondistended. Buttock/scrotal area: open lesions w no oozing or drainage, no signs of infection MUSCULOSKELETAL: Extremities without edema. No joint tenderness, effusion, or edema noted. No calf tenderness. NEUROLOGICAL: Awake and alert. Able to move all extremities. A/P Assessment and Plan 50yo male with PMHX of HIV who follows with Dr. Samuels as outpatient last seen 6 months ago who admits to being noncompliant with his HIV medications for the past 2 months and presents to [facility] ED with complaints of severe buttock pain secondary to multiple buttock and perirectal wounds for the past two months. 1. Severe sepsis secondary to UTI : s/p Zosyn, continue Ceftriaxone to cover E coli. 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 Tmax of 101 last night. Valtrex 14 days then chronic suppression with Acyclovir 2. CKD V creatinine 8.56 yesterday. s/p HD yesterday and today. history of Kidney stones. CT abd/pelvis r/o obstructive nephrolithiasis, continue IV fluids and avoid Nephrotoxic agents. Nephrology following, status post Perm cath placement. Possible kidney Biopsy once infection is controlled 3. HIV CD4 count less than 20 patient admits to being noncompliant with his meds for the past 2 mos. Pt encouraged to be compliant. 4. Oral Thrush Nystatin, monitor 5. Anemia-transfuse 2 more units of packed red blood cells today. Recheck CBC tomorrow. 6. Hypertension and Tachycardia: on Metoprolol will increase to 25 mg bid. 7. Medical non compliance. 8. Buttock and peter-rectal wounds HSV positive as indicated by ID specialist more Herpetic lesions. 9. Hypocalcemia-replaced, recheck BMP tomorrow. Pennie Rasmussen MD Nov 16, 2016 17:51
[2016-11-17] VITALS (8 sets, daily range): BP systolic 144–167; BP diastolic 93–101; PULSE 83–101; RESP 16–20; TEMP 98.7–100.2; O2SAT 92–99
[2016-11-17] MEDS: HEPARIN SODIUM - SQ 10,000 UNITS/ML VIAL SQ SCH ×2 (04:04→17:00)
[2016-11-17 08:29] LABS: HEMATOCRIT 31.2 % (39.0-51.0); MEAN CELL VOLUME 88.4 FL (80.0-100.0); MEAN CORPUSCULAR HEMOGLOBIN 29.2 PG (27.0-34.0); PLATELET COUNT 126 TH/MM3 (150-450); RED BLOOD COUNT 3.53 MIL/MM3 (4.50-5.90); WHITE BLOOD COUNT 4.8 TH/MM3 (4.0-11.0)
[2016-11-17 08:33] LABS: HEMO FLAGS AUTO DIFF
[2016-11-17 08:56] LABS: BICARBONATE 28.2 MEQ/L (21.0-32.0)
[2016-11-17] MEDS: DOCUSATE SODIUM 50 MG/SENNA 8.6 MG TAB PO SCH ×2 (09:00→20:20)
[2016-11-17] MEDS: METOPROLOL TARTRATE 25 MG TAB PO SCH ×2 (09:05→20:19)
[2016-11-17] MEDS: AZITHROMYCIN 250 MG TAB PO SCH (09:05)
[2016-11-17] MEDS: SODIUM CHLORIDE 0.9% FLUSH 10 ML FLUSH IV FLUSH SCH ×2 (09:05→20:20)
[2016-11-17] MEDS: cloNIDine HCL 0.1 MG TAB PO PRN (09:05)
[2016-11-17] MEDS: NYSTATIN SUSP 500,000 U/5 ML CUP SWISH-SWAL SCH ×4 (09:05→20:19)
[2016-11-17 09:53] LABS: BANDS 4 % (0-6); METAMYELOCYTES 3 % (0-1); NEUTROPHIL # MANUAL DIFF 4.1 TH/MM3 (1.8-7.7); POLYS (SEG NEUTROPHILS) 78 % (16-70); WBC DIFF SAMPLE 100
[2016-11-17 09:54] LABS: KERATOCYTES OCC (NORMAL); OVALOCYTES 1+ (NORMAL); PLATELET ESTIMATE SMEAR LOW (NORMAL); PLATELET MORPHOLOGY NORMAL (NORMAL); SCAN/DIFF FINAL DIFF MANUAL
--- NOTE | 2016-11-17 10:40 | HHI.PR ---
Subjective Remarks Follow-up for acute renal failure and pneumonia Shortness of breath better, almost no cough, MAXIMUM TEMPERATURE 100.3. Mild headache but now resolved. Blood pressure in the 160s. Objective Vitals Vital Signs Date Time Temp Pulse Resp B/P (MAP) Pulse Ox O2 Delivery O2 Flow Rate FiO2 11/17/16 09:02 Room Air 11/17/16 08:00 100.0 101 20 166/101 (122) 92 11/17/16 04:00 99.1 90 20 167/93 (117) 98 11/17/16 01:51 98.7 11/17/16 00:00 100.2 95 20 144/94 (111) 96 11/16/16 21:49 100.3 89 18 160/113 98 11/16/16 20:22 98.4 86 18 158/102 98 11/16/16 20:20 98.4 86 18 158/102 (120) 98 11/16/16 20:03 89 11/16/16 18:43 98.9 94 17 152/98 98 11/16/16 18:24 98.6 104 17 159/101 98 11/16/16 16:00 102.3 102 19 172/96 (121) 96 11/16/16 14:27 101.9 18 176/102 98 11/16/16 12:27 Room Air 11/16/16 12:12 99.0 99 18 153/110 (124) 100 11/16/16 11:04 98.5 97 17 158/100 98 11/16/16 10:44 98.3 97 20 163/94 I/O 11/16/16 11/16/16 11/16/16 11/17/16 11/17/16 11/17/16 06:59 14:59 22:59 06:59 14:59 22:59 Intake Total 1525 ml 270 ml 1250 ml 736 ml Output Total 1000 ml 850 ml Balance 1525 ml 270 ml 250 ml -114 ml Intake Oral 960 ml 480 ml IV Total 1525 ml 256 ml Packed Cells 250 ml 250 ml Blood Product IV Normal Saline Flush 20 ml 40 ml Output Urine Total 600 ml 850 ml Stool Total 400 ml # Bowel Movements 1 Result Diagram: 11/17/16 0708 11/17/16 0708 Objective Remarks GENERAL: Not in distress ENT: Nose without drainage. (+)Oral thrush. Airway patent. RESPIRATORY: Clear to auscultation. Right upper chest perm cath in place. GASTROINTESTINAL: Abdomen soft, non-tender, nondistended. MUSCULOSKELETAL: Extremities without edema. No joint tenderness, effusion, or edema noted. No calf tenderness. NEUROLOGICAL: Awake and alert. Able to move all extremities. A/P Problem List: (1) Renal failure ICD Code: N19 - Unspecified kidney failure Status: Acute (2) Sepsis ICD Code: A41.9 - Sepsis, unspecified organism Status: Acute Assessment and Plan 50yo male with PMHX of HIV who follows with Dr. Samuels as outpatient last seen 6 months ago who admits to being noncompliant with his HIV medications for the past 2 months and presents to [facility] ED with complaints of severe buttock pain secondary to multiple buttock and perirectal wounds for the past two months. 1. Severe sepsis secondary to UTI : s/p Zosyn, continue Ceftriaxone to cover E coli. 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 2. CKD V history of Kidney stones. Creatinine high again today, for dialysis, if no improvement, will need a renal biopsy, so far workup is negative, SPEP negative. CT abd/pelvis r/o obstructive nephrolithiasis 3. HIV CD4 count less than 20 patient admits to being noncompliant with his meds for the past 2 mos. Pt encouraged to be compliant. 4. Oral Thrush Nystatin, monitor 5. Anemia- hemoglobin stable, status post 2 units of packed red blood cells. Monitor. 6. Hypertension and Tachycardia: on Metoprolol will increase to 50 m twice a day 7. Medical non compliance. 8. Buttock and peter-rectal wounds - HSV positive as indicated by ID specialist more Herpetic lesions. Vital acyclovir stopped?, continue valtrex for 14 days then chronic suppression with Acyclovir 9. Hypocalcemia- resolved Heparin for DVT prophylaxis Discharge Planning Not medically ready Problem Qualifiers (1) Renal failure: (2) Sepsis: Pennie Rasmussen MD Nov 17, 2016 10:40
--- NOTE | 2016-11-17 12:25 | HHI.IDPN ---
Subjective Subjective Remarks Patient is a 50-year-old male, with known HIV, the last 23 years, states his last CD4 count was around 2, has been following with an HIV provider over the last 4 years, percent to the hospital complaining all severe buttock pain which has been present for the last 2 months. He apparently initially noted some blister looking lesions that are painful on his right buttock. It spread, and he thought it was no resolve on its own, but they persisted and he continued to have problem. He initially also had some right sided abdominal pain, and thought that it was his kidney stone. He has had previous problem with kidney stone. Patient stated that he passed the stone. He currently denies any dysuria, and denies any prior history of hematuria. He has not had any fever or chills prior to admission, but since admission patient has had fevers. Denies any respiratory complaint. Denies any diarrhea. He's had some on and off vomiting, and this is the reason why he has not been very compliant with his HIV medication. On presentation, patient was found to have an abnormal urinalysis. His creatinine was 7+. CT of the abdomen and pelvis showed some stones but there is no evidence of hydronephrosis. Chest x-ray is unremarkable. As noted to have multiple ulcers in the room right buttock, as well as in the perirectal area. Some ulcers noted also in the scrotal area. Infectious disease consultation has been requested to evaluate the patient. Notes reviewed Still with intermittent fevers, not as frequent Stools better No new complaint Tagged WBC scan negative No abdominal pain No resp complaints BC AFB pending CMV negative HSV 1 and 2 (+) VZV IgM negative, IgG (+) BC negative UC mixed bacteria Wound C/S E coli CD4 <20 ESR >140 CRP 17 Antibiotics Rocephin Valtrex Levaquin Zithromax Lines PIV Past Medical History HIV, for 20+years, noncompliant with medications for the past 2 months Kidney stones Allergies: Coded Allergies: No Known Allergies (Unverified , 11/05/16) Objective . Vital Signs Date Time Temp Pulse Resp B/P (MAP) Pulse Ox O2 Delivery O2 Flow Rate FiO2 11/17/16 12:00 99.9 83 20 154/99 (117) 97 11/17/16 09:02 Room Air 11/17/16 08:00 100.0 101 20 166/101 (122) 92 11/17/16 04:00 99.1 90 20 167/93 (117) 98 11/17/16 01:51 98.7 11/17/16 00:00 100.2 95 20 144/94 (111) 96 11/16/16 21:49 100.3 89 18 160/113 98 11/16/16 20:22 98.4 86 18 158/102 98 11/16/16 20:20 98.4 86 18 158/102 (120) 98 11/16/16 20:03 89 11/16/16 18:43 98.9 94 17 152/98 98 11/16/16 18:24 98.6 104 17 159/101 98 11/16/16 16:00 102.3 102 19 172/96 (121) 96 11/16/16 14:27 101.9 18 176/102 98 11/16/16 12:27 Room Air . Laboratory Tests Test 11/16/16 04:09 11/17/16 07:08 White Blood Count 3.6 TH/MM3 4.8 TH/MM3 Red Blood Count 2.28 MIL/MM3 3.53 MIL/MM3 Hemoglobin 6.6 GM/DL 10.3 GM/DL Hematocrit 19.5 % 31.2 % Mean Corpuscular Volume 85.5 FL 88.4 FL Mean Corpuscular Hemoglobin 29.1 PG 29.2 PG Mean Corpuscular Hemoglobin Concent 34.1 % 33.0 % Red Cell Distribution Width 15.0 % 15.0 % Platelet Count 120 TH/MM3 126 TH/MM3 Mean Platelet Volume 8.8 FL 8.2 FL Neutrophils (%) (Auto) 85.3 % Lymphocytes (%) (Auto) 2.2 % Monocytes (%) (Auto) 11.4 % Eosinophils (%) (Auto) 0.9 % Basophils (%) (Auto) 0.2 % Neutrophils # (Auto) 3.0 TH/MM3 Lymphocytes # (Auto) 0.1 TH/MM3 Monocytes # (Auto) 0.4 TH/MM3 Eosinophils # (Auto) 0.0 TH/MM3 Basophils # (Auto) 0.0 TH/MM3 CBC Comment AUTO DIFF AUTO DIFF Differential Comment AUTO DIFF CONFIRMED FINAL DIFF MANUAL Differential Total Cells Counted 100 Neutrophils % (Manual) 78 % Band Neutrophils % 4 % Lymphocytes % 3 % Monocytes % 12 % Neutrophils # (Manual) 4.1 TH/MM3 Metamyelocytes 3 % Platelet Estimate LOW Platelet Morphology Comment NORMAL Ovalocytes 1+ Keratocytes OCC Laboratory Tests Test 11/16/16 04:09 11/17/16 07:08 Blood Urea Nitrogen 24 MG/DL 33 MG/DL Creatinine 4.34 MG/DL 7.26 MG/DL Random Glucose 88 MG/DL 80 MG/DL Total Protein 4.6 GM/DL Calcium Level 6.0 MG/DL 8.5 MG/DL Sodium Level 138 MEQ/L 137 MEQ/L Potassium Level 2.5 MEQ/L 4.0 MEQ/L Chloride Level 92 MEQ/L 98 MEQ/L Carbon Dioxide Level 37.3 MEQ/L 28.2 MEQ/L Anion Gap 9 MEQ/L 11 MEQ/L Estimat Glomerular Filtration Rate 18 ML/MIN 10 ML/MIN Protein Corrected Calcium 7.2 MG/DL Imaging Last Impressions Renal Ultrasound 11/05/16 0000 Signed Impressions: Service Date/Time: Saturday, November 05, 2016 19:17 - CONCLUSION: Diffusely echogenic kidneys indicating medical renal disease. Dorian Murry MD Chest X-Ray 11/05/16 0000 Signed Impressions: Service Date/Time: Saturday, November 05, 2016 17:07 - CONCLUSION: 1. Patchy consolidation versus atelectasis in the upper lung zone on the lateral view. 2. 1 cm nodular density in the left lower lung zone on the PA view only. Recommend noncontrast chest CT to evaluate for pulmonary nodule. Dorian Murry MD Abdomen/Pelvis CT 11/05/16 0000 Signed Impressions: Service Date/Time: Saturday, November 05, 2016 17:19 - CONCLUSION: 1. 4 mm calculus in the right renal pelvis/ureteropelvic junction with mild adjacent perinephric/periureteral stranding. No evidence of hydronephrosis. 2. 1 cm round hypodensity in the anterior right mid kidney statistically most likely to represent a cyst. 3. 3.7 cm hypodensity in the right lobe of the liver air the dome of the diaphragm. This finding is nonspecific on noncontrast CT. The most likely etiologies include hemangioma and cyst. It could be further evaluated with ultrasound nonemergent followup MRI of the abdomen. 4. Mild dilated proximal right common iliac artery. Dorian Murry MD Physical Exam GENERAL: awake and alert, not in respiratory distress. SKIN: Warm and dry. He has hyperpigmented macules in his UE. HEAD: Atraumatic. Normocephalic. No temporal wasting, or tenderness. EYES: [place] conjunctiva. No petechia or hemorrhage. No scleral icterus. No injection or drainage. EARS, NOSE AND THROAT: Nose without bleeding or purulent nasal discharge. Mucous membranes pink and moist. No oral lesions noted. No exudate. Has improving oral thrush. NECK: Trachea midline. Supple and not tender, no meningeal signs CARDIOVASCULAR: Regular rate and rhythm. No murmurs, rubs or gallops heard RESPIRATORY: Clear to auscultation. Breath sounds equal bilaterally. No rales , wheezing or rhonchi ABDOMEN: Soft, non-tender, nondistended. Bowel sounds present and normoactive. No guarding. No rebound. No organomegaly. EXTREMITIES: No clubbing, cyanosis, or edema.No joint effusion, has good ROM. No calf tenderness. Well perfused and warm. BACK: He has multiple ulcers in his R buttock, and smaller ulcers in perirectal area, no surrounding cellulitis, lesions clean and much improved, no purulence NEUROLOGICAL: Non-focal PSYCHIATRIC: Normal affect, calm and cooperative. LINE: No evidence of infection : No penile ulcer or drainage noted Assessment & Plan Remarks IMPRESSION Fevers, persistent, not as frequent - repeat UA negative - has stones, patient stated he passed the stones, no obstruction on imaging studies - ?infection related to his chronic HIV - ulcers in buttock, doubt causing fevers, looks herpetic, ?VZV Renal failure HIV RECOMMENDATION Stop Rocephin If more diarrhea send stool for C diff Continue Leva/Zithromax empiric for LULU Continue valtrex give 14 days then chronic suppression with Acyclovir Wound care Follow temps Monitor progress If temps continues, gallium scan Dr Wong Martines covering 11/18-11/20 Bozena Chambers MD Nov 17, 2016 12:25
[2016-11-17] MEDS: valACYclovir HCL 500 MG TAB PO SCH (13:01)
[2016-11-17] MEDS: ACETAMINOPHEN 325 MG TAB PO PRN (14:40)
[2016-11-17] MEDS: GENTAMICIN SULFATE (DIALYSIS USE ONLY) 20 MG/2 ML VIAL IV PRN (15:37)
[2016-11-17] MEDS: SODIUM CHLORIDE 0.9% FLUSH 10 ML FLUSH IV FLUSH PRN (15:38)
[2016-11-17] MEDS: HEPARIN SODIUM - IV 10,000 UNITS/10 ML VIAL PRN (15:38)
--- NOTE | 2016-11-17 16:47 | HHI.NPPN ---
Subjective History of Present Illness 50-year-old male with past medical history of HIV disease for more than 20 years and history of renal stone who came to the hospital with complaint of back pain. The patient has back pain going on for the last 2 months off and on and he came to the emergency department yesterday with worsening pain. Additional Remarks Patient is alert, seen during HD, still spiking fever off and on. Review of Systems General Constitutional: Fatigue Cardiovascular Cardiac: MIRZA Objective Data Data Vital Signs Date Time Temp Pulse Resp B/P (MAP) Pulse Ox O2 Delivery O2 Flow Rate FiO2 11/17/16 12:00 99.9 83 20 154/99 (117) 97 11/17/16 09:03 86 11/17/16 09:02 Room Air 11/17/16 08:00 100.0 101 20 166/101 (122) 92 11/17/16 04:00 99.1 90 20 167/93 (117) 98 11/17/16 01:51 98.7 11/17/16 00:00 100.2 95 20 144/94 (111) 96 11/16/16 21:49 100.3 89 18 160/113 98 11/16/16 20:22 98.4 86 18 158/102 98 11/16/16 20:20 98.4 86 18 158/102 (120) 98 11/16/16 20:03 89 11/16/16 18:43 98.9 94 17 152/98 98 11/16/16 18:24 98.6 104 17 159/101 98 -: 11/17/16 0708 11/17/16 0708 Physical Exam General Appearance: No Acute Distress, Comfortable Eyes Eye Exam: Pupils Equal Throat Throat Exam: Oral Mucosa [place] & Moist Pulmonary Resp Exam: Breath Sounds Equal, No Distress, Rhonchi, Decreased Bases Cardiology CV Exam: Regular, Normal Sinus Rhythm Gastrointestinal/Abdomen GI Exam: Soft, Non-Tender, Bowel Sounds Present Extremeties Extremities Exam: No Edema Neurologic Neuro Exam: Alert, Awake, Oriented Psychiatric Psych Exam: Appropriate Responses Assessment/Plan Assessment Summary: MIKE/Acute Renal Failure Problem List: (1) Renal failure ICD Codes: N19 - Unspecified kidney failure Status: Acute (2) Sepsis ICD Codes: A41.9 - Sepsis, unspecified organism Status: Acute (3) Open wound of scrotum ICD Codes: S31.30XA - Unspecified open wound of scrotum and testes, initial encounter Status: Acute Plan Patient has again increase in the BUN and Creatinine. Remain non oliguric. SPEP was negative. Complements normal, other serology also negative. BP is on higher side, will increase Metoprolol to 50 mg BID. If renal function will not improve, will consider Renal Biopsy. HD now, remove fluid as tolerated. ID is following, possible Gallium scan. Problem Qualifiers (1) Renal failure: (2) Sepsis: Kwadwo Shah MD Nov 17, 2016 16:47
[2016-11-17] MEDS: LEVOFLOXACIN 250 MG TAB PO SCH (18:28)
[2016-11-17] MEDS: cefTRIAXone INJ 2,000 MG in SODIUM CHLORIDE 0.9% INJ 100 ML IV SCH (18:29)
[2016-11-18] VITALS (9 sets, daily range): BP systolic 138–166; BP diastolic 86–96; PULSE 83–97; RESP 16–20; TEMP 98.5–101.5; O2SAT 95–100
[2016-11-18] MEDS: ACETAMINOPHEN 325 MG TAB PO PRN ×2 (01:05→21:46)
[2016-11-18] MEDS: HEPARIN SODIUM - SQ 10,000 UNITS/ML VIAL SQ SCH ×2 (04:17→17:24)
[2016-11-18] MEDS: valACYclovir HCL 500 MG TAB PO SCH (09:02)
[2016-11-18] MEDS: METOPROLOL TARTRATE 25 MG TAB PO SCH ×2 (09:02→21:46)
[2016-11-18] MEDS: NYSTATIN SUSP 500,000 U/5 ML CUP SWISH-SWAL SCH ×4 (09:02→21:46)
[2016-11-18] MEDS: AZITHROMYCIN 250 MG TAB PO SCH (09:02)
[2016-11-18] MEDS: DOCUSATE SODIUM 50 MG/SENNA 8.6 MG TAB PO SCH ×2 (09:02→21:00)
[2016-11-18] MEDS: SODIUM CHLORIDE 0.9% FLUSH 10 ML FLUSH IV FLUSH SCH ×2 (09:03→21:47)
--- NOTE | 2016-11-18 10:55 | HHI.PR ---
Subjective Remarks Follow up acute renal failure, pneumonia. Patient denies complaints at this time. Dyspnea has improved. Denies pain currently. Objective Vitals Vital Signs Date Time Temp Pulse Resp B/P (MAP) Pulse Ox O2 Delivery O2 Flow Rate FiO2 11/18/16 08:30 Room Air 11/18/16 08:00 99.8 95 20 166/92 (116) 98 11/18/16 07:57 97 11/18/16 04:00 98.5 83 18 149/92 (111) 95 11/18/16 04:00 Room Air 11/18/16 00:00 100.9 91 16 138/88 (105) 100 11/18/16 00:00 Room Air 11/17/16 22:30 85 11/17/16 20:00 99.8 91 16 161/97 (118) 99 11/17/16 12:00 99.9 83 20 154/99 (117) 97 I/O 11/17/16 11/17/16 11/17/16 11/18/16 11/18/16 11/18/16 07:00 15:00 23:00 07:00 15:00 23:00 Intake Total 480 ml 480 ml 360 ml Output Total 850 ml 3000 ml 600 ml Balance -370 ml -2520 ml -240 ml Intake Oral 480 ml 480 ml 360 ml Output Urine Total 850 ml 600 ml Hemodialysis 3000 ml # Voids 2 # Bowel Movements 1 1 1 Result Diagram: 11/17/16 0708 11/17/16 0708 Imaging Last Impressions Catheter Placement X-Ray 11/14/16 0600 Signed Impressions: Service Date/Time: Monday, November 14, 2016 11:24 - CONCLUSION: Uncomplicated line placement as above. William Modi MD Tumor Localization 11/14/16 0000 Signed Impressions: Service Date/Time: Monday, November 14, 2016 11:38 - CONCLUSION: Negative scan Solitario Diaz MD Chest X-Ray 11/13/16 0000 Signed Impressions: Service Date/Time: Sunday, November 13, 2016 16:02 - CONCLUSION: No acute cardiopulmonary disease. Quincy Medellin MD Renal Ultrasound 11/05/16 0000 Signed Impressions: Service Date/Time: Saturday, November 05, 2016 19:17 - CONCLUSION: Diffusely echogenic kidneys indicating medical renal disease. Dorian Murry MD Abdomen/Pelvis CT 11/05/16 0000 Signed Impressions: Service Date/Time: Saturday, November 05, 2016 17:19 - CONCLUSION: 1. 4 mm calculus in the right renal pelvis/ureteropelvic junction with mild adjacent perinephric/periureteral stranding. No evidence of hydronephrosis. 2. 1 cm round hypodensity in the anterior right mid kidney statistically most likely to represent a cyst. 3. 3.7 cm hypodensity in the right lobe of the liver air the dome of the diaphragm. This finding is nonspecific on noncontrast CT. The most likely etiologies include hemangioma and cyst. It could be further evaluated with ultrasound nonemergent followup MRI of the abdomen. 4. Mild dilated proximal right common iliac artery. Dorian Murry MD Objective Remarks General: No acute distress. Heart: Regular rate and rhythm. No murmur. Lungs: Clear to auscultation bilaterally. No wheezes, rales, or rhonchi. Breathing is nonlabored. Abdomen: Soft, nontender, nondistended. Extremities: No lower extremity edema. Psych: Alert and oriented. Procedures 11/14/16 hemodialysis catheter placement, right internal jugular Urinary Catheter: No Vascular Central Line Catheter: No A/P Problem List: (1) Renal failure ICD Code: N19 - Unspecified kidney failure Status: Acute (2) Sepsis ICD Code: A41.9 - Sepsis, unspecified organism Status: Acute (3) UTI (urinary tract infection) ICD Code: N39.0 - Urinary tract infection, site not specified (4) Chronic kidney disease, stage V ICD Code: N18.5 - Chronic kidney disease, stage 5 (5) HIV (human immunodeficiency virus infection) ICD Code: B20 - Human immunodeficiency virus [HIV] disease (6) Anemia ICD Code: D64.9 - Anemia, unspecified (7) Hypertension ICD Code: I10 - Essential (primary) hypertension (8) Medical non-compliance ICD Code: Z91.19 - Patient's noncompliance with other medical treatment and regimen Assessment and Plan 1. Severe sepsis secondary to UTI, pneumonia: Status post treatment with Zosyn. Continue ceftriaxone to cover Escherichia coli. Patient is immunocompromised, noncompliant with HAART for the last 2 months. HSV positive. 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 Still with low-grade fevers. 2. Acute renal failure superimposed on chronic kidney disease stage V: Appreciate nephrology recommendations. SPEP negative. 3. HIV: CD4 count less than 20. Patient admitted to being noncompliant with HAART meds for the last 2 months. He has been counseled. 4. Oral thrush: Continue nystatin. 5. Anemia: Hemoglobin stable following transfusion 2 units PRBCs. 6. Hypertension, tachycardia: Continue metoprolol. 7. Buttock, perirectal wounds: HSV positive. Continue Valtrex 14 days then chronic suppression with acyclovir. 8. DVT prophylaxis: Heparin. Problem Qualifiers (1) Renal failure: (2) Sepsis: Rod Nguyen MD Nov 18, 2016 10:55
[2016-11-18 12:27] LABS: HEMATOCRIT 29.3 % (39.0-51.0); MEAN CELL VOLUME 89.6 FL (80.0-100.0); MEAN CORPUSCULAR HEMOGLOBIN 28.9 PG (27.0-34.0); MEAN CORPUSCULAR HGB CONC 32.3 % (32.0-36.0); PLATELET COUNT 118 TH/MM3 (150-450); RED BLOOD COUNT 3.27 MIL/MM3 (4.50-5.90); RED CELL DISTRIBUTION WIDTH 15.1 % (11.6-17.2); WHITE BLOOD COUNT 5.1 TH/MM3 (4.0-11.0)
[2016-11-18 12:33] LABS: HEMO FLAGS AUTO DIFF
[2016-11-18 12:51] LABS: BICARBONATE 26.6 MEQ/L (21.0-32.0)
[2016-11-18 13:21] LABS: BANDS 3 % (0-6); BASOPHILS 1 % (0-2); HYPERSEGMENTED POLYS 2+ (NORMAL); METAMYELOCYTES 2 % (0-1); MYELOCYTES 1 % (0-0); NEUTROPHIL # MANUAL DIFF 4.1 TH/MM3 (1.8-7.7); POLYS (SEG NEUTROPHILS) 74 % (16-70); TOXIC GRANULATION 1+ (NORMAL); WBC DIFF SAMPLE 100
[2016-11-18 13:22] LABS: PLATELET ESTIMATE SMEAR LOW (NORMAL); PLATELET MORPHOLOGY NORMAL (NORMAL)
[2016-11-18 13:23] LABS: KERATOCYTES 1+ (NORMAL); OVALOCYTES 1+ (NORMAL); SCAN/DIFF FINAL DIFF MANUAL
[2016-11-18] MEDS: LEVOFLOXACIN 250 MG TAB PO SCH (17:23)
[2016-11-18] MEDS: cefTRIAXone INJ 2,000 MG in SODIUM CHLORIDE 0.9% INJ 100 ML IV SCH (17:23)
--- NOTE | 2016-11-18 19:35 | HHI.NPPN ---
Subjective History of Present Illness 50-year-old male with past medical history of HIV disease for more than 20 years and history of renal stone who came to the hospital with complaint of back pain. The patient has back pain going on for the last 2 months off and on and he came to the emergency department yesterday with worsening pain. Additional Remarks Patient is alert, no SOB, not eating well, still has fever off and on. Review of Systems General Constitutional: Fatigue Cardiovascular Cardiac: MIRZA Objective Data Data Vital Signs Date Time Temp Pulse Resp B/P (MAP) Pulse Ox O2 Delivery O2 Flow Rate FiO2 11/18/16 12:00 98.8 97 18 149/96 (113) 98 11/18/16 09:00 89 11/18/16 08:30 Room Air 11/18/16 08:00 99.8 95 20 166/92 (116) 98 11/18/16 07:57 97 11/18/16 04:00 98.5 83 18 149/92 (111) 95 11/18/16 04:00 Room Air 11/18/16 00:00 100.9 91 16 138/88 (105) 100 11/18/16 00:00 Room Air 11/17/16 22:30 85 11/17/16 20:00 99.8 91 16 161/97 (118) 99 -: 11/18/16 1139 11/18/16 1139 Physical Exam General Appearance: No Acute Distress, Comfortable Eyes Eye Exam: Pupils Equal Throat Throat Exam: Oral Mucosa [place] & Moist Pulmonary Resp Exam: Breath Sounds Equal, No Distress, Rhonchi, Decreased Bases Cardiology CV Exam: Regular, Normal Sinus Rhythm Gastrointestinal/Abdomen GI Exam: Soft, Non-Tender, Bowel Sounds Present Extremeties Extremities Exam: No Edema Neurologic Neuro Exam: Alert, Awake, Oriented Psychiatric Psych Exam: Appropriate Responses Assessment/Plan Assessment Summary: MIKE/Acute Renal Failure Problem List: (1) Renal failure ICD Codes: N19 - Unspecified kidney failure Status: Acute (2) Sepsis ICD Codes: A41.9 - Sepsis, unspecified organism Status: Acute (3) Open wound of scrotum ICD Codes: S31.30XA - Unspecified open wound of scrotum and testes, initial encounter Status: Acute Plan Patient has again increase in the BUN and Creatinine. Remain non oliguric. SPEP was negative. Complements normal, other serology also negative. BP is on higher side, will increase Metoprolol to 50 mg BID. If renal function will not improve, will consider Renal Biopsy. HD done on Sat. continue antibiotics as per ID. HD again in AM. Problem Qualifiers (1) Renal failure: (2) Sepsis: Kwadwo Shah MD Nov 18, 2016 19:35
[2016-11-19] VITALS (7 sets, daily range): BP systolic 117–169; BP diastolic 75–98; PULSE 72–102; RESP 16–20; TEMP 97.8–101.9; O2SAT 96–100
[2016-11-19] MEDS: HEPARIN SODIUM - SQ 10,000 UNITS/ML VIAL SQ SCH ×2 (05:00→17:00)
[2016-11-19 08:15] LABS: HEMATOCRIT 28.7 % (39.0-51.0); MEAN CELL VOLUME 88.8 FL (80.0-100.0); MEAN CORPUSCULAR HEMOGLOBIN 29.6 PG (27.0-34.0); MEAN CORPUSCULAR HGB CONC 33.4 % (32.0-36.0); PLATELET COUNT 120 TH/MM3 (150-450); RED BLOOD COUNT 3.23 MIL/MM3 (4.50-5.90); RED CELL DISTRIBUTION WIDTH 15.3 % (11.6-17.2); WHITE BLOOD COUNT 4.7 TH/MM3 (4.0-11.0)
[2016-11-19 08:18] LABS: HEMO FLAGS AUTO DIFF
[2016-11-19 08:33] LABS: BICARBONATE 27.1 MEQ/L (21.0-32.0); POTASSIUM 3.9 MEQ/L (3.5-5.1)
[2016-11-19] MEDS: NYSTATIN SUSP 500,000 U/5 ML CUP SWISH-SWAL SCH ×4 (09:00→20:11)
[2016-11-19] MEDS: SODIUM CHLORIDE 0.9% FLUSH 10 ML FLUSH IV FLUSH SCH ×2 (09:00→20:12)
--- NOTE | 2016-11-19 09:54 | HHI.NPPN ---
Subjective History of Present Illness 50-year-old male with past medical history of HIV disease for more than 20 years and history of renal stone who came to the hospital with complaint of back pain. The patient has back pain going on for the last 2 months off and on and he came to the emergency department yesterday with worsening pain. Additional Remarks Patient is alert, seen during HD, still spiking fever off and on. Review of Systems General Constitutional: Fatigue Cardiovascular Cardiac: MIRZA Objective Data Data Vital Signs Date Time Temp Pulse Resp B/P (MAP) Pulse Ox O2 Delivery O2 Flow Rate FiO2 11/19/16 05:32 98.5 84 20 169/75 (106) 100 11/19/16 04:00 Room Air 11/19/16 00:00 98.1 72 16 138/80 (99) 96 11/19/16 00:00 Room Air 11/18/16 22:55 99 21 11/18/16 20:00 101.5 97 16 148/92 (110) 100 11/18/16 20:00 Room Air 11/18/16 16:00 99.0 91 18 140/86 (104) 98 11/18/16 12:00 98.8 97 18 149/96 (113) 98 -: 11/19/16 0702 11/19/16 0702 Physical Exam General Appearance: No Acute Distress, Comfortable Eyes Eye Exam: Pupils Equal Throat Throat Exam: Oral Mucosa [place] & Moist Pulmonary Resp Exam: Breath Sounds Equal, No Distress, Rhonchi, Decreased Bases Cardiology CV Exam: Regular, Normal Sinus Rhythm Gastrointestinal/Abdomen GI Exam: Soft, Non-Tender, Bowel Sounds Present Extremeties Extremities Exam: No Edema Neurologic Neuro Exam: Alert, Awake, Oriented Psychiatric Psych Exam: Appropriate Responses Assessment/Plan Assessment Summary: MIKE/Acute Renal Failure Problem List: (1) Renal failure ICD Codes: N19 - Unspecified kidney failure Status: Acute (2) Sepsis ICD Codes: A41.9 - Sepsis, unspecified organism Status: Acute (3) Open wound of scrotum ICD Codes: S31.30XA - Unspecified open wound of scrotum and testes, initial encounter Status: Acute Plan Patient has again increase in the BUN and Creatinine. Remain non oliguric. SPEP was negative. Complements normal, other serology also negative. BP is on higher side, will increase Metoprolol to 50 mg BID. If renal function will not improve, will consider Renal Biopsy. HD progress noted UF 3L on 3 K bath tolerating it well Problem Qualifiers (1) Renal failure: (2) Sepsis: Chad Vela MD Nov 19, 2016 09:54
[2016-11-19 10:20] LABS: BANDS 10 % (0-6); EOSINOPHILS 1 % (0-4); METAMYELOCYTES 1 % (0-1); NEUTROPHIL # MANUAL DIFF 4.1 TH/MM3 (1.8-7.7); POLYS (SEG NEUTROPHILS) 77 % (16-70); WBC DIFF SAMPLE 100
[2016-11-19 10:21] LABS: KERATOCYTES OCC (NORMAL); OVALOCYTES 1+ (NORMAL); PLATELET ESTIMATE SMEAR LOW (NORMAL); PLATELET MORPHOLOGY ENLARGED (NORMAL); SCAN/DIFF FINAL DIFF MANUAL
[2016-11-19] MEDS: GENTAMICIN SULFATE (DIALYSIS USE ONLY) 20 MG/2 ML VIAL IV PRN (11:45)
[2016-11-19] MEDS: HEPARIN SODIUM - IV 10,000 UNITS/10 ML VIAL IVF PRN (11:45)
[2016-11-19] MEDS: SODIUM CHLORIDE 0.9% FLUSH 10 ML FLUSH IV FLUSH PRN (11:45)
[2016-11-19] MEDS: amLODIPine BESYLATE 5 MG TAB PO SCH (12:00)
[2016-11-19] MEDS: DOCUSATE SODIUM 50 MG/SENNA 8.6 MG TAB PO SCH ×2 (12:30→20:11)
[2016-11-19] MEDS: METOPROLOL TARTRATE 25 MG TAB PO SCH ×2 (12:30→20:11)
[2016-11-19] MEDS: valACYclovir HCL 500 MG TAB PO SCH (12:30)
[2016-11-19] MEDS: AZITHROMYCIN 250 MG TAB PO SCH (12:30)
--- NOTE | 2016-11-19 15:19 | HHI.PR ---
Subjective Remarks Follow up acute renal failure, pneumonia. No complaints at this time. Had dialysis today. Still having fevers. Objective Vitals Vital Signs Date Time Temp Pulse Resp B/P (MAP) Pulse Ox O2 Delivery O2 Flow Rate FiO2 11/19/16 12:00 101.9 96 20 151/92 (111) 100 11/19/16 08:30 Room Air 11/19/16 08:00 98.7 102 20 159/98 (118) 11/19/16 05:32 98.5 84 20 169/75 (106) 100 11/19/16 04:00 Room Air 11/19/16 00:00 98.1 72 16 138/80 (99) 96 11/19/16 00:00 Room Air 11/18/16 22:55 99 21 11/18/16 20:00 101.5 97 16 148/92 (110) 100 11/18/16 20:00 Room Air 11/18/16 16:00 99.0 91 18 140/86 (104) 98 I/O 11/18/16 11/18/16 11/18/16 11/19/16 11/19/16 11/19/16 06:59 14:59 22:59 06:59 14:59 22:59 Intake Total 360 ml 720 ml 720 ml Output Total 600 ml 3000 ml Balance -240 ml 720 ml 720 ml -3000 ml Intake Oral 360 ml 720 ml 720 ml Output Urine Total 600 ml Hemodialysis 3000 ml # Voids 2 1 # Bowel Movements 1 1 1 Result Diagram: 11/19/16 0702 11/19/16 0702 Imaging Last Impressions Catheter Placement X-Ray 11/14/16 0600 Signed Impressions: Service Date/Time: Monday, November 14, 2016 11:24 - CONCLUSION: Uncomplicated line placement as above. William oMdi MD Tumor Localization 11/14/16 0000 Signed Impressions: Service Date/Time: Monday, November 14, 2016 11:38 - CONCLUSION: Negative scan Solitario Diaz MD Chest X-Ray 11/13/16 0000 Signed Impressions: Service Date/Time: Sunday, November 13, 2016 16:02 - CONCLUSION: No acute cardiopulmonary disease. Quincy Medellin MD Renal Ultrasound 11/05/16 0000 Signed Impressions: Service Date/Time: Saturday, November 05, 2016 19:17 - CONCLUSION: Diffusely echogenic kidneys indicating medical renal disease. Dorian Murry MD Abdomen/Pelvis CT 11/05/16 0000 Signed Impressions: Service Date/Time: Saturday, November 05, 2016 17:19 - CONCLUSION: 1. 4 mm calculus in the right renal pelvis/ureteropelvic junction with mild adjacent perinephric/periureteral stranding. No evidence of hydronephrosis. 2. 1 cm round hypodensity in the anterior right mid kidney statistically most likely to represent a cyst. 3. 3.7 cm hypodensity in the right lobe of the liver air the dome of the diaphragm. This finding is nonspecific on noncontrast CT. The most likely etiologies include hemangioma and cyst. It could be further evaluated with ultrasound nonemergent followup MRI of the abdomen. 4. Mild dilated proximal right common iliac artery. Dorian Murry MD Objective Remarks General: No acute distress. Heart: Regular rate and rhythm. No murmur. Lungs: Clear to auscultation bilaterally. No wheezes, rales, or rhonchi. Breathing is nonlabored. Abdomen: Soft, nontender, nondistended. Extremities: No lower extremity edema. Psych: Alert and oriented. Procedures 11/14/16 hemodialysis catheter placement, right internal jugular Urinary Catheter: No Vascular Central Line Catheter: No A/P Problem List: (1) Renal failure ICD Code: N19 - Unspecified kidney failure Status: Acute (2) Sepsis ICD Code: A41.9 - Sepsis, unspecified organism Status: Acute (3) UTI (urinary tract infection) ICD Code: N39.0 - Urinary tract infection, site not specified (4) Chronic kidney disease, stage V ICD Code: N18.5 - Chronic kidney disease, stage 5 (5) HIV (human immunodeficiency virus infection) ICD Code: B20 - Human immunodeficiency virus [HIV] disease (6) Anemia ICD Code: D64.9 - Anemia, unspecified (7) Hypertension ICD Code: I10 - Essential (primary) hypertension (8) Medical non-compliance ICD Code: Z91.19 - Patient's noncompliance with other medical treatment and regimen Assessment and Plan 1. Severe sepsis secondary to UTI, pneumonia: Status post treatment with Zosyn. Continue ceftriaxone to cover Escherichia coli. Patient is immunocompromised, noncompliant with HAART for the last 2 months. HSV positive. 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 Still having fevers. Blood mycobacterial culture growing acid fast organism. Further ID pending. 2. Acute renal failure superimposed on chronic kidney disease stage V: Appreciate nephrology recommendations. SPEP negative. 3. HIV/AIDS: CD4 count less than 20. Patient admitted to being noncompliant with HAART meds for the last 2 months. He has been counseled. 4. Oral thrush: Continue nystatin. 5. Anemia: Hemoglobin stable following transfusion 2 units PRBCs. 6. Hypertension, tachycardia: Continue metoprolol. 7. Buttock, perirectal wounds: HSV positive. Continue Valtrex 14 days then chronic suppression with acyclovir. 8. DVT prophylaxis: Heparin. Problem Qualifiers (1) Renal failure: (2) Sepsis: Rod Nguyen MD Nov 19, 2016 15:19
[2016-11-19] MEDS: cefTRIAXone INJ 2,000 MG in SODIUM CHLORIDE 0.9% INJ 100 ML IV SCH (17:00)
[2016-11-19] MEDS: LEVOFLOXACIN 250 MG TAB PO SCH (17:11)
[2016-11-20] VITALS (7 sets, daily range): BP systolic 128–170; BP diastolic 82–96; PULSE 88–109; RESP 18–20; TEMP 97.8–102.8; O2SAT 96–100
[2016-11-20] MEDS: HEPARIN SODIUM - SQ 10,000 UNITS/ML VIAL SQ SCH ×2 (05:00→10:26)
[2016-11-20] MEDS: SODIUM CHLORIDE 0.9% FLUSH 10 ML FLUSH IV FLUSH SCH ×2 (09:00→20:09)
[2016-11-20] MEDS: DOCUSATE SODIUM 50 MG/SENNA 8.6 MG TAB PO SCH ×2 (09:00→20:28)
[2016-11-20 09:34] LABS: HEMATOCRIT 33.2 % (39.0-51.0); HEMO FLAGS AUTO DIFF; MEAN CELL VOLUME 90.2 FL (80.0-100.0); MEAN CORPUSCULAR HGB CONC 32.1 % (32.0-36.0); PLATELET COUNT 125 TH/MM3 (150-450); RED BLOOD COUNT 3.68 MIL/MM3 (4.50-5.90); RED CELL DISTRIBUTION WIDTH 15.3 % (11.6-17.2); WHITE BLOOD COUNT 5.3 TH/MM3 (4.0-11.0)
[2016-11-20] MEDS: AZITHROMYCIN 250 MG TAB PO SCH (09:46)
[2016-11-20] MEDS: NYSTATIN SUSP 500,000 U/5 ML CUP SWISH-SWAL SCH ×4 (09:46→20:09)
[2016-11-20] MEDS: METOPROLOL TARTRATE 25 MG TAB PO SCH ×2 (09:46→20:09)
[2016-11-20] MEDS: amLODIPine BESYLATE 5 MG TAB PO SCH (09:46)
[2016-11-20] MEDS: valACYclovir HCL 500 MG TAB PO SCH (09:46)
[2016-11-20 10:20] LABS: BICARBONATE 25.3 MEQ/L (21.0-32.0); MAGNESIUM 2.3 MG/DL (1.5-2.5)
[2016-11-20 10:22] LABS: ACANTHOCYTES OCC (NORMAL); BANDS 12 % (0-6); EOSINOPHILS 1 % (0-4); NEUTROPHIL # MANUAL DIFF 4.1 TH/MM3 (1.8-7.7); OVALOCYTES 1+ (NORMAL); PLATELET ESTIMATE SMEAR LOW (NORMAL); PLATELET MORPHOLOGY NORMAL (NORMAL); POLYS (SEG NEUTROPHILS) 66 % (16-70); WBC DIFF SAMPLE 100
[2016-11-20 10:23] LABS: SCAN/DIFF FINAL DIFF MANUAL
--- NOTE | 2016-11-20 11:21 | HHI.PR ---
Subjective Remarks Follow up acute renal failure, pneumonia. Patient without complaints today. Denies pain, dyspnea. Afebrile overnight. Objective Vitals Vital Signs Date Time Temp Pulse Resp B/P (MAP) Pulse Ox O2 Delivery O2 Flow Rate FiO2 11/20/16 09:00 88 11/20/16 08:19 Room Air 11/20/16 08:00 98.4 105 20 138/85 (102) 96 11/20/16 06:00 98.5 95 18 144/93 (110) 99 11/20/16 04:00 Room Air 11/20/16 00:00 98.2 88 20 170/95 (120) 100 11/20/16 00:00 Room Air 11/19/16 20:00 100 11/19/16 20:00 99.2 102 16 117/75 (89) 99 11/19/16 20:00 Room Air 11/19/16 16:00 97.8 97 20 136/84 (101) 99 11/19/16 12:30 Room Air 11/19/16 12:00 101.9 96 20 151/92 (111) 100 I/O 11/19/16 11/19/16 11/19/16 11/20/16 11/20/16 11/20/16 06:59 14:59 22:59 06:59 14:59 22:59 Intake Total 720 ml 1486 ml Output Total 3000 ml 150 ml 400 ml Balance 720 ml -3000 ml 1336 ml -400 ml Intake Oral 720 ml 360 ml IV Total 1126 ml Output Urine Total 150 ml 400 ml Hemodialysis 3000 ml # Voids 1 # Bowel Movements 1 0 2 Result Diagram: 11/20/16 0757 11/20/16 0757 Imaging Last Impressions Catheter Placement X-Ray 11/14/16 0600 Signed Impressions: Service Date/Time: Monday, November 14, 2016 11:24 - CONCLUSION: Uncomplicated line placement as above. William Modi MD Tumor Localization 11/14/16 0000 Signed Impressions: Service Date/Time: Monday, November 14, 2016 11:38 - CONCLUSION: Negative scan Solitario Diaz MD Chest X-Ray 11/13/16 0000 Signed Impressions: Service Date/Time: Sunday, November 13, 2016 16:02 - CONCLUSION: No acute cardiopulmonary disease. Quincy Medellin MD Renal Ultrasound 11/05/16 0000 Signed Impressions: Service Date/Time: Saturday, November 05, 2016 19:17 - CONCLUSION: Diffusely echogenic kidneys indicating medical renal disease. Dorian Murry MD Abdomen/Pelvis CT 11/05/16 0000 Signed Impressions: Service Date/Time: Saturday, November 05, 2016 17:19 - CONCLUSION: 1. 4 mm calculus in the right renal pelvis/ureteropelvic junction with mild adjacent perinephric/periureteral stranding. No evidence of hydronephrosis. 2. 1 cm round hypodensity in the anterior right mid kidney statistically most likely to represent a cyst. 3. 3.7 cm hypodensity in the right lobe of the liver air the dome of the diaphragm. This finding is nonspecific on noncontrast CT. The most likely etiologies include hemangioma and cyst. It could be further evaluated with ultrasound nonemergent followup MRI of the abdomen. 4. Mild dilated proximal right common iliac artery. Dorian Murry MD Objective Remarks General: No acute distress. Heart: Regular rate and rhythm. No murmur. Lungs: Clear to auscultation bilaterally. No wheezes, rales, or rhonchi. Breathing is nonlabored. Abdomen: Soft, nontender, nondistended. Extremities: No lower extremity edema. Psych: Alert and oriented. Procedures 11/14/16 hemodialysis catheter placement, right internal jugular Urinary Catheter: No Vascular Central Line Catheter: No A/P Problem List: (1) Renal failure ICD Code: N19 - Unspecified kidney failure Status: Acute (2) Sepsis ICD Code: A41.9 - Sepsis, unspecified organism Status: Acute (3) UTI (urinary tract infection) ICD Code: N39.0 - Urinary tract infection, site not specified (4) Chronic kidney disease, stage V ICD Code: N18.5 - Chronic kidney disease, stage 5 (5) HIV (human immunodeficiency virus infection) ICD Code: B20 - Human immunodeficiency virus [HIV] disease (6) Anemia ICD Code: D64.9 - Anemia, unspecified (7) Hypertension ICD Code: I10 - Essential (primary) hypertension (8) Medical non-compliance ICD Code: Z91.19 - Patient's noncompliance with other medical treatment and regimen Assessment and Plan 1. Severe sepsis secondary to UTI, pneumonia: Status post treatment with Zosyn. Continue ceftriaxone to cover Escherichia coli. Patient is immunocompromised, noncompliant with HAART for the last 2 months. HSV positive. 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 Afebrile overnight. Blood mycobacterial culture growing acid fast organism. Further ID pending. 2. Acute renal failure superimposed on chronic kidney disease stage V: Appreciate nephrology recommendations. SPEP negative. 3. HIV/AIDS: CD4 count less than 20. Patient admitted to being noncompliant with HAART meds for the last 2 months. He has been counseled. 4. Oral thrush: Continue nystatin. 5. Anemia: Hemoglobin stable following transfusion 2 units PRBCs. 6. Hypertension, tachycardia: Continue metoprolol. 7. Buttock, perirectal wounds: HSV positive. Continue Valtrex 14 days then chronic suppression with acyclovir. 8. DVT prophylaxis: Heparin. Problem Qualifiers (1) Renal failure: (2) Sepsis: Rod Nguyen MD Nov 20, 2016 11:21
--- NOTE | 2016-11-20 14:41 | HHI.NPPN ---
Subjective History of Present Illness 50-year-old male with past medical history of HIV disease for more than 20 years and history of renal stone who came to the hospital with complaint of back pain. The patient has back pain going on for the last 2 months off and on and he came to the emergency department yesterday with worsening pain. Additional Remarks Patient is alert, tired Review of Systems General Constitutional: Fatigue Cardiovascular Cardiac: MIRZA Objective Data Data Vital Signs Date Time Temp Pulse Resp B/P (MAP) Pulse Ox O2 Delivery O2 Flow Rate FiO2 11/20/16 12:00 97.8 93 20 128/87 (101) 98 11/20/16 09:00 88 11/20/16 08:19 Room Air 11/20/16 08:00 98.4 105 20 138/85 (102) 96 11/20/16 06:00 98.5 95 18 144/93 (110) 99 11/20/16 04:00 Room Air 11/20/16 00:00 98.2 88 20 170/95 (120) 100 11/20/16 00:00 Room Air 11/19/16 20:00 100 11/19/16 20:00 99.2 102 16 117/75 (89) 99 11/19/16 20:00 Room Air 11/19/16 16:00 97.8 97 20 136/84 (101) 99 -: 11/20/16 0757 11/20/16 0757 Physical Exam General Appearance: No Acute Distress, Comfortable Eyes Eye Exam: Pupils Equal Throat Throat Exam: Oral Mucosa [place] & Moist Pulmonary Resp Exam: Breath Sounds Equal, No Distress, Rhonchi, Decreased Bases Cardiology CV Exam: Regular, Normal Sinus Rhythm Gastrointestinal/Abdomen GI Exam: Soft, Non-Tender, Bowel Sounds Present Extremeties Extremities Exam: No Edema Neurologic Neuro Exam: Alert, Awake, Oriented Psychiatric Psych Exam: Appropriate Responses Assessment/Plan Assessment Summary: MIKE/Acute Renal Failure Problem List: (1) Renal failure ICD Codes: N19 - Unspecified kidney failure Status: Acute (2) Sepsis ICD Codes: A41.9 - Sepsis, unspecified organism Status: Acute (3) Open wound of scrotum ICD Codes: S31.30XA - Unspecified open wound of scrotum and testes, initial encounter Status: Acute Plan Patient is on HD Via [facility] Remain non oliguric. SPEP was negative. Complements normal, other serology also negative. BP is on higher side, will increase Metoprolol to 50 mg BID. If renal function will not improve, will consider Renal Biopsy. HD yesterday UF 3L on 3 K bath tolerating it well Dr. Shah to follow Problem Qualifiers (1) Renal failure: (2) Sepsis: Chad Vela MD Nov 20, 2016 14:41
[2016-11-20] MEDS: cefTRIAXone INJ 2,000 MG in SODIUM CHLORIDE 0.9% INJ 100 ML IV SCH (16:15)
[2016-11-20] MEDS: LEVOFLOXACIN 250 MG TAB PO SCH (16:15)
[2016-11-20] MEDS: ACETAMINOPHEN 325 MG TAB PO PRN (20:23)
[2016-11-21] VITALS (8 sets, daily range): BP systolic 129–167; BP diastolic 87–98; PULSE 79–119; RESP 18–20; TEMP 98–102.7; O2SAT 98–100
[2016-11-21] MEDS: ACETAMINOPHEN 325 MG TAB PO PRN ×3 (03:02→23:50)
[2016-11-21] MEDS: HEPARIN SODIUM - SQ 10,000 UNITS/ML VIAL SQ SCH ×2 (05:00→15:59)
[2016-11-21] MEDS: METOPROLOL TARTRATE 25 MG TAB PO SCH ×2 (08:40→21:56)
[2016-11-21] MEDS: SODIUM CHLORIDE 0.9% FLUSH 10 ML FLUSH IV FLUSH SCH ×2 (08:40→21:00)
[2016-11-21] MEDS: NYSTATIN SUSP 500,000 U/5 ML CUP SWISH-SWAL SCH ×4 (08:41→21:00)
[2016-11-21] MEDS: valACYclovir HCL 500 MG TAB PO SCH (08:41)
[2016-11-21] MEDS: amLODIPine BESYLATE 5 MG TAB PO SCH (08:41)
[2016-11-21] MEDS: DOCUSATE SODIUM 50 MG/SENNA 8.6 MG TAB PO SCH ×2 (08:41→21:00)
[2016-11-21] MEDS: AZITHROMYCIN 250 MG TAB PO SCH (08:41)
--- NOTE | 2016-11-21 15:13 | HHI.PR ---
Subjective Remarks Follow up acute renal failure, pneumonia. No complaints at this time. Denies chest pain, dyspnea, cough. Has had fever again today. Objective Vitals Vital Signs Date Time Temp Pulse Resp B/P (MAP) Pulse Ox O2 Delivery O2 Flow Rate FiO2 11/21/16 13:11 100 Room Air 11/21/16 12:00 101.2 99 20 147/94 (111) 100 11/21/16 11:34 79 11/21/16 08:00 98 Room Air 11/21/16 08:00 98.0 86 18 142/92 (109) 98 11/21/16 04:00 98.3 89 19 140/91 (107) 99 11/21/16 04:00 Room Air 11/21/16 00:00 Room Air 11/21/16 00:00 102.1 91 18 167/98 (121) 99 11/20/16 20:00 102.8 106 18 138/96 (110) 100 11/20/16 20:00 Room Air 11/20/16 20:00 109 11/20/16 16:00 99.1 107 20 137/82 (100) 99 11/20/16 16:00 Room Air I/O 11/20/16 11/20/16 11/20/16 11/21/16 11/21/16 11/21/16 07:00 15:00 23:00 07:00 15:00 23:00 Intake Total 340 ml 240 ml Output Total 400 ml 200 ml Balance -400 ml 340 ml 40 ml Intake Oral 240 ml 240 ml IV Total 100 ml Output Urine Total 400 ml 200 ml # Voids 2 # Bowel Movements 2 0 Result Diagram: 11/20/16 0757 11/20/16 0757 Imaging Last Impressions Catheter Placement X-Ray 11/14/16 0600 Signed Impressions: Service Date/Time: Monday, November 14, 2016 11:24 - CONCLUSION: Uncomplicated line placement as above. William Modi MD Tumor Localization 11/14/16 0000 Signed Impressions: Service Date/Time: Monday, November 14, 2016 11:38 - CONCLUSION: Negative scan Solitario Diaz MD Chest X-Ray 11/13/16 0000 Signed Impressions: Service Date/Time: Sunday, November 13, 2016 16:02 - CONCLUSION: No acute cardiopulmonary disease. Quincy Medellin MD Renal Ultrasound 11/05/16 0000 Signed Impressions: Service Date/Time: Saturday, November 05, 2016 19:17 - CONCLUSION: Diffusely echogenic kidneys indicating medical renal disease. Dorian Murry MD Abdomen/Pelvis CT 11/05/16 0000 Signed Impressions: Service Date/Time: Saturday, November 05, 2016 17:19 - CONCLUSION: 1. 4 mm calculus in the right renal pelvis/ureteropelvic junction with mild adjacent perinephric/periureteral stranding. No evidence of hydronephrosis. 2. 1 cm round hypodensity in the anterior right mid kidney statistically most likely to represent a cyst. 3. 3.7 cm hypodensity in the right lobe of the liver air the dome of the diaphragm. This finding is nonspecific on noncontrast CT. The most likely etiologies include hemangioma and cyst. It could be further evaluated with ultrasound nonemergent followup MRI of the abdomen. 4. Mild dilated proximal right common iliac artery. Dorian Murry MD Objective Remarks General: No acute distress. Heart: Regular rate and rhythm. No murmur. Lungs: Clear to auscultation bilaterally. No wheezes, rales, or rhonchi. Breathing is nonlabored. Abdomen: Soft, nontender, nondistended. Extremities: No lower extremity edema. Psych: Alert and oriented. Procedures 11/14/16 hemodialysis catheter placement, right internal jugular Urinary Catheter: No Vascular Central Line Catheter: No A/P Problem List: (1) Renal failure ICD Code: N19 - Unspecified kidney failure Status: Acute (2) Sepsis ICD Code: A41.9 - Sepsis, unspecified organism Status: Acute (3) UTI (urinary tract infection) ICD Code: N39.0 - Urinary tract infection, site not specified (4) Chronic kidney disease, stage V ICD Code: N18.5 - Chronic kidney disease, stage 5 (5) HIV (human immunodeficiency virus infection) ICD Code: B20 - Human immunodeficiency virus [HIV] disease (6) Anemia ICD Code: D64.9 - Anemia, unspecified (7) Hypertension ICD Code: I10 - Essential (primary) hypertension (8) Medical non-compliance ICD Code: Z91.19 - Patient's noncompliance with other medical treatment and regimen Assessment and Plan 1. Severe sepsis secondary to UTI, pneumonia: Status post treatment with Zosyn. Continue ceftriaxone to cover Escherichia coli. Patient is immunocompromised, noncompliant with HAART for the last 2 months. HSV positive. 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 Febrile again. Blood mycobacterial culture growing acid fast organism. Further ID pending. 2. Acute renal failure superimposed on chronic kidney disease stage V: Appreciate nephrology recommendations. SPEP negative. 3. HIV/AIDS: CD4 count less than 20. Patient admitted to being noncompliant with HAART meds for the last 2 months. He has been counseled. 4. Oral thrush: Continue nystatin. 5. Anemia: Hemoglobin stable following transfusion of 2 units PRBCs. 6. Hypertension, tachycardia: Continue metoprolol. 7. Buttock, perirectal wounds: HSV positive. Continue Valtrex 14 days then chronic suppression with acyclovir. 8. DVT prophylaxis: Heparin. Discussed with Dr. Chambers. Problem Qualifiers (1) Renal failure: (2) Sepsis: Rod Nguyen MD Nov 21, 2016 15:13
[2016-11-21] MEDS: cefTRIAXone INJ 2,000 MG in SODIUM CHLORIDE 0.9% INJ 100 ML IV SCH (15:59)
[2016-11-21] MEDS: LEVOFLOXACIN 250 MG TAB PO SCH (15:59)
--- NOTE | 2016-11-21 16:42 | HHI.IDPN ---
Subjective Subjective Remarks Patient is a 50-year-old male, with known HIV, the last 23 years, states his last CD4 count was around 2, has been following with an HIV provider over the last 4 years, percent to the hospital complaining all severe buttock pain which has been present for the last 2 months. He apparently initially noted some blister looking lesions that are painful on his right buttock. It spread, and he thought it was no resolve on its own, but they persisted and he continued to have problem. He initially also had some right sided abdominal pain, and thought that it was his kidney stone. He has had previous problem with kidney stone. Patient stated that he passed the stone. He currently denies any dysuria, and denies any prior history of hematuria. He has not had any fever or chills prior to admission, but since admission patient has had fevers. Denies any respiratory complaint. Denies any diarrhea. He's had some on and off vomiting, and this is the reason why he has not been very compliant with his HIV medication. On presentation, patient was found to have an abnormal urinalysis. His creatinine was 7+. CT of the abdomen and pelvis showed some stones but there is no evidence of hydronephrosis. Chest x-ray is unremarkable. As noted to have multiple ulcers in the room right buttock, as well as in the perirectal area. Some ulcers noted also in the scrotal area. Infectious disease consultation has been requested to evaluate the patient. Notes reviewed Still with intermittent fevers, not as frequent BC from 11/10 now growing AFB He has no new complaints Last HD was 11/19 Tagged WBC scan negative CMV negative HSV 1 and 2 (+) VZV IgM negative, IgG (+) BC negative UC mixed bacteria Wound C/S E coli CD4 <20 ESR >140 CRP 17 Antibiotics Rocephin Valtrex Levaquin Zithromax Lines PIV Past Medical History HIV, for 20+years, noncompliant with medications for the past 2 months Kidney stones Allergies: Coded Allergies: No Known Allergies (Unverified , 11/05/16) Objective . Vital Signs Date Time Temp Pulse Resp B/P (MAP) Pulse Ox O2 Delivery O2 Flow Rate FiO2 11/21/16 13:11 100 Room Air 11/21/16 12:00 101.2 99 20 147/94 (111) 100 11/21/16 11:34 79 11/21/16 08:00 98 Room Air 11/21/16 08:00 98.0 86 18 142/92 (109) 98 11/21/16 04:00 98.3 89 19 140/91 (107) 99 11/21/16 04:00 Room Air 11/21/16 00:00 Room Air 11/21/16 00:00 102.1 91 18 167/98 (121) 99 11/20/16 20:00 102.8 106 18 138/96 (110) 100 11/20/16 20:00 Room Air 11/20/16 20:00 109 . Laboratory Tests Test 11/20/16 07:57 White Blood Count 5.3 TH/MM3 Red Blood Count 3.68 MIL/MM3 Hemoglobin 10.6 GM/DL Hematocrit 33.2 % Mean Corpuscular Volume 90.2 FL Mean Corpuscular Hemoglobin 29.0 PG Mean Corpuscular Hemoglobin Concent 32.1 % Red Cell Distribution Width 15.3 % Platelet Count 125 TH/MM3 Mean Platelet Volume 8.7 FL CBC Comment AUTO DIFF Differential Total Cells Counted 100 Neutrophils % (Manual) 66 % Band Neutrophils % 12 % Lymphocytes % 5 % Monocytes % 16 % Eosinophils % 1 % Neutrophils # (Manual) 4.1 TH/MM3 Differential Comment FINAL DIFF MANUAL Platelet Estimate LOW Platelet Morphology Comment NORMAL Ovalocytes 1+ Acanthocytes OCC Laboratory Tests Test 11/20/16 07:57 Blood Urea Nitrogen 27 MG/DL Creatinine 6.52 MG/DL Random Glucose 86 MG/DL Calcium Level 7.7 MG/DL Magnesium Level 2.3 MG/DL Sodium Level 132 MEQ/L Potassium Level 4.0 MEQ/L Chloride Level 94 MEQ/L Carbon Dioxide Level 25.3 MEQ/L Anion Gap 13 MEQ/L Estimat Glomerular Filtration Rate 11 ML/MIN Imaging Catheter Placement X-Ray 11/14/16 0600 Signed Impressions: Service Date/Time: Monday, November 14, 2016 11:24 - CONCLUSION: Uncomplicated line placement as above. William Modi MD Tumor Localization 11/14/16 0000 Signed Impressions: Service Date/Time: Monday, November 14, 2016 11:38 - CONCLUSION: Negative scan Solitario Diaz MD Chest X-Ray 11/13/16 0000 Signed Impressions: Service Date/Time: Sunday, November 13, 2016 16:02 - CONCLUSION: No acute cardiopulmonary disease. K. Blade Shamlou, MD Renal Ultrasound 11/05/16 Signed Impressions: Service Date/Time: Saturday, November 05, 2016 19:17 - CONCLUSION: Diffusely echogenic kidneys indicating medical renal disease. Dorian Murry MD Abdomen/Pelvis CT 11/05/16 Signed Impressions: Service Date/Time: Saturday, November 05, 2016 17:19 - CONCLUSION: 1. 4 mm calculus in the right renal pelvis/ureteropelvic junction with mild adjacent perinephric/periureteral stranding. No evidence of hydronephrosis. 2. 1 cm round hypodensity in the anterior right mid kidney statistically most likely to represent a cyst. 3. 3.7 cm hypodensity in the right lobe of the liver air the dome of the diaphragm. This finding is nonspecific on noncontrast CT. The most likely etiologies include hemangioma and cyst. It could be further evaluated with ultrasound nonemergent followup MRI of the abdomen. 4. Mild dilated proximal right common iliac artery. Dorian Murry MD Last Impressions Renal Ultrasound 11/05/16 Signed Impressions: Service Date/Time: Saturday, November 05, 2016 19:17 - CONCLUSION: Diffusely echogenic kidneys indicating medical renal disease. Dorian Murry MD Chest X-Ray 11/05/16 Signed Impressions: Service Date/Time: Saturday, November 05, 2016 17:07 - CONCLUSION: 1. Patchy consolidation versus atelectasis in the upper lung zone on the lateral view. 2. 1 cm nodular density in the left lower lung zone on the PA view only. Recommend noncontrast chest CT to evaluate for pulmonary nodule. Dorian Murry MD Abdomen/Pelvis CT 11/05/16 Signed Impressions: Service Date/Time: Saturday, November 05, 2016 17:19 - CONCLUSION: 1. 4 mm calculus in the right renal pelvis/ureteropelvic junction with mild adjacent perinephric/periureteral stranding. No evidence of hydronephrosis. 2. 1 cm round hypodensity in the anterior right mid kidney statistically most likely to represent a cyst. 3. 3.7 cm hypodensity in the right lobe of the liver air the dome of the diaphragm. This finding is nonspecific on noncontrast CT. The most likely etiologies include hemangioma and cyst. It could be further evaluated with ultrasound nonemergent followup MRI of the abdomen. 4. Mild dilated proximal right common iliac artery. Dorian Murry MD Physical Exam GENERAL: awake and alert, not in respiratory distress. SKIN: Warm and dry. He has hyperpigmented macules in his UE. HEAD: Atraumatic. Normocephalic. No temporal wasting, or tenderness. EYES: [place] conjunctiva. No petechia or hemorrhage. No scleral icterus. No injection or drainage. EARS, NOSE AND THROAT: Nose without bleeding or purulent nasal discharge. Mucous membranes pink and moist. No oral lesions noted. No exudate. Has improving oral thrush. NECK: Trachea midline. Supple and not tender, no meningeal signs CARDIOVASCULAR: Regular rate and rhythm. No murmurs, rubs or gallops heard RESPIRATORY: Clear to auscultation. Breath sounds equal bilaterally. No rales , wheezing or rhonchi ABDOMEN: Soft, non-tender, nondistended. Bowel sounds present and normoactive. No guarding. No rebound. No organomegaly. EXTREMITIES: No clubbing, cyanosis, or edema.No joint effusion, has good ROM. No calf tenderness. Well perfused and warm. BACK: He has multiple ulcers in his R buttock, and smaller ulcers in perirectal area, no surrounding cellulitis, lesions clean and much improved, no purulence NEUROLOGICAL: Non-focal PSYCHIATRIC: Normal affect, calm and cooperative. LINE: No evidence of infection : No penile ulcer or drainage noted Assessment & Plan Remarks IMPRESSION Fevers, persistent, not as frequent - likely due to AFB in BC, likely LULU - repeat UA negative - has stones, patient stated he passed the stones, no obstruction on imaging studies - ?infection related to his chronic HIV - ulcers in buttock, doubt causing fevers, looks herpetic, ?VZV Renal failure HIV RECOMMENDATION Stop Rocephin Continue Levaquin Change Zithromaxto Biaxin Add EMB Continue valtrex give 14 days then chronic suppression with Acyclovir Wound care Follow temps Monitor progress Bozena Chambers MD Nov 21, 2016 16:42
[2016-11-21] MEDS: ETHAMBUTOL HCL 400 MG TAB PO SCH (18:00)
[2016-11-21] MEDS: ONDANSETRON HCL 4 MG/2 ML VIAL IVP PRN (20:58)
[2016-11-21] MEDS: CLARITHROMYCIN 500 MG TAB PO SCH (21:00)
--- NOTE | 2016-11-21 21:58 | HHI.NPPN ---
Subjective History of Present Illness 50-year-old male with past medical history of HIV disease for more than 20 years and history of renal stone who came to the hospital with complaint of back pain. The patient has back pain going on for the last 2 months off and on and he came to the emergency department yesterday with worsening pain. Additional Remarks Patient is alert, no SOB, spike fever, no complain. Review of Systems General Constitutional: Fatigue Cardiovascular Cardiac: MIRZA Objective Data Data 11/21/16 11/22/16 19:00 07:00 Intake Total 580 ml Output Total 250 ml Balance 330 ml Intake Oral 480 ml IV Total 100 ml Output Urine Total 250 ml # Voids 1 # Bowel Movements 1 Vital Signs Date Time Temp Pulse Resp B/P (MAP) Pulse Ox O2 Delivery O2 Flow Rate FiO2 11/21/16 21:37 102.7 115 18 132/89 (103) 99 11/21/16 17:18 100 Room Air 11/21/16 16:00 98.7 90 18 129/87 (101) 98 11/21/16 13:11 100 Room Air 11/21/16 12:00 101.2 99 20 147/94 (111) 100 11/21/16 11:34 79 11/21/16 08:00 98 Room Air 11/21/16 08:00 98.0 86 18 142/92 (109) 98 11/21/16 04:00 98.3 89 19 140/91 (107) 99 11/21/16 04:00 Room Air 11/21/16 00:00 Room Air 11/21/16 00:00 102.1 91 18 167/98 (121) 99 -: 11/20/16 0757 11/20/16 0757 Physical Exam General Appearance: No Acute Distress, Comfortable Eyes Eye Exam: Pupils Equal Throat Throat Exam: Oral Mucosa [place] & Moist Pulmonary Resp Exam: Breath Sounds Equal, No Distress, Rhonchi, Decreased Bases Cardiology CV Exam: Regular, Normal Sinus Rhythm Gastrointestinal/Abdomen GI Exam: Soft, Non-Tender, Bowel Sounds Present Extremeties Extremities Exam: No Edema Neurologic Neuro Exam: Alert, Awake, Oriented Psychiatric Psych Exam: Appropriate Responses Assessment/Plan Assessment Summary: MIKE/Acute Renal Failure Problem List: (1) Renal failure ICD Codes: N19 - Unspecified kidney failure Status: Acute (2) Sepsis ICD Codes: A41.9 - Sepsis, unspecified organism Status: Acute (3) Open wound of scrotum ICD Codes: S31.30XA - Unspecified open wound of scrotum and testes, initial encounter Status: Acute Plan Patient has again increase in the BUN and Creatinine. Remain non oliguric. SPEP was negative. Complements normal, other serology also negative. BP is on higher side, will increase Metoprolol to 50 mg BID. If renal function will not improve, will consider Renal Biopsy. HD done on Sat. continue antibiotics as per ID. HD again in AM. Follow the urine out put and BMP. So far has no signs of renal recovery. Problem Qualifiers (1) Renal failure: (2) Sepsis: Kwadwo Shah MD Nov 21, 2016 21:58
[2016-11-22] VITALS (8 sets, daily range): BP systolic 120–152; BP diastolic 68–92; PULSE 83–112; RESP 16–20; TEMP 98.7–100.9; O2SAT 99–100
[2016-11-22] MEDS: HEPARIN SODIUM - SQ 10,000 UNITS/ML VIAL SQ SCH ×2 (04:38→16:45)
[2016-11-22] MEDS: ONDANSETRON HCL 4 MG/2 ML VIAL IV PRN (08:32)
[2016-11-22] MEDS: CLARITHROMYCIN 500 MG TAB PO SCH ×2 (08:35→21:35)
[2016-11-22] MEDS: METOPROLOL TARTRATE 25 MG TAB PO SCH ×2 (08:35→21:35)
[2016-11-22] MEDS: DOCUSATE SODIUM 50 MG/SENNA 8.6 MG TAB PO SCH ×2 (08:35→21:35)
[2016-11-22] MEDS: NYSTATIN SUSP 500,000 U/5 ML CUP SWISH-SWAL SCH ×4 (08:35→21:36)
[2016-11-22] MEDS: valACYclovir HCL 500 MG TAB PO SCH (08:36)
[2016-11-22] MEDS: amLODIPine BESYLATE 5 MG TAB PO SCH (08:36)
[2016-11-22] MEDS: SODIUM CHLORIDE 0.9% FLUSH 10 ML FLUSH IV FLUSH SCH ×2 (08:36→21:35)
[2016-11-22] MEDS: ETHAMBUTOL HCL 400 MG TAB PO SCH (08:36)
--- NOTE | 2016-11-22 11:25 | HHI.PR ---
Subjective Remarks Follow up acute renal failure, pneumonia. The patient denies complaints at this time. States that his wound is improving. Pain is controlled. Objective Vitals Vital Signs Date Time Temp Pulse Resp B/P (MAP) Pulse Ox O2 Delivery O2 Flow Rate FiO2 11/22/16 08:00 99.0 89 20 152/92 (112) 99 11/22/16 06:07 99.1 84 16 120/68 (85) 99 11/22/16 00:58 99.7 83 16 123/72 (89) 99 11/21/16 22:06 Room Air 11/21/16 21:37 102.7 115 18 132/89 (103) 99 11/21/16 20:07 119 11/21/16 17:18 100 Room Air 11/21/16 16:00 98.7 90 18 129/87 (101) 98 11/21/16 13:11 100 Room Air 11/21/16 12:00 101.2 99 20 147/94 (111) 100 11/21/16 11:34 79 I/O 11/21/16 11/21/16 11/21/16 11/22/16 11/22/16 11/22/16 07:00 15:00 23:00 07:00 15:00 23:00 Intake Total 240 ml 580 ml 480 ml Output Total 200 ml 250 ml 400 ml Balance 40 ml 330 ml 80 ml Intake Oral 240 ml 480 ml 480 ml IV Total 100 ml Output Urine Total 200 ml 250 ml 400 ml # Voids 1 2 # Bowel Movements 1 1 Result Diagram: 11/20/16 0757 11/20/16 0757 Imaging Last Impressions Catheter Placement X-Ray 11/14/16 0600 Signed Impressions: Service Date/Time: Monday, November 14, 2016 11:24 - CONCLUSION: Uncomplicated line placement as above. William Modi MD Tumor Localization 11/14/16 0000 Signed Impressions: Service Date/Time: Monday, November 14, 2016 11:38 - CONCLUSION: Negative scan Solitario Diaz MD Chest X-Ray 11/13/16 0000 Signed Impressions: Service Date/Time: Sunday, November 13, 2016 16:02 - CONCLUSION: No acute cardiopulmonary disease. Quincy Medellin MD Renal Ultrasound 11/05/16 0000 Signed Impressions: Service Date/Time: Saturday, November 05, 2016 19:17 - CONCLUSION: Diffusely echogenic kidneys indicating medical renal disease. Dorian Murry MD Abdomen/Pelvis CT 11/05/16 0000 Signed Impressions: Service Date/Time: Saturday, November 05, 2016 17:19 - CONCLUSION: 1. 4 mm calculus in the right renal pelvis/ureteropelvic junction with mild adjacent perinephric/periureteral stranding. No evidence of hydronephrosis. 2. 1 cm round hypodensity in the anterior right mid kidney statistically most likely to represent a cyst. 3. 3.7 cm hypodensity in the right lobe of the liver air the dome of the diaphragm. This finding is nonspecific on noncontrast CT. The most likely etiologies include hemangioma and cyst. It could be further evaluated with ultrasound nonemergent followup MRI of the abdomen. 4. Mild dilated proximal right common iliac artery. Dorian Murry MD Objective Remarks General: No acute distress. Heart: Regular rate and rhythm. No murmur. Lungs: Clear to auscultation bilaterally. No wheezes, rales, or rhonchi. Breathing is nonlabored. Abdomen: Soft, nontender, nondistended. Extremities: No lower extremity edema. Psych: Alert and oriented. Procedures 11/14/16 hemodialysis catheter placement, right internal jugular Urinary Catheter: No Vascular Central Line Catheter: No A/P Problem List: (1) Renal failure ICD Code: N19 - Unspecified kidney failure Status: Acute (2) Sepsis ICD Code: A41.9 - Sepsis, unspecified organism Status: Acute (3) UTI (urinary tract infection) ICD Code: N39.0 - Urinary tract infection, site not specified (4) Chronic kidney disease, stage V ICD Code: N18.5 - Chronic kidney disease, stage 5 (5) HIV (human immunodeficiency virus infection) ICD Code: B20 - Human immunodeficiency virus [HIV] disease (6) Anemia ICD Code: D64.9 - Anemia, unspecified (7) Hypertension ICD Code: I10 - Essential (primary) hypertension (8) Medical non-compliance ICD Code: Z91.19 - Patient's noncompliance with other medical treatment and regimen Assessment and Plan 1. Severe sepsis secondary to UTI, pneumonia: Status post treatment with Zosyn. Continue ceftriaxone to cover Escherichia coli. Patient is immunocompromised, noncompliant with HAART for the last 2 months. HSV positive. 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 Blood mycobacterial culture growing acid fast organism. Further ID pending. Still having fevers. 2. Acute renal failure superimposed on chronic kidney disease stage V: Appreciate nephrology recommendations. SPEP, serology negative. 3. HIV/AIDS: CD4 count less than 20. Patient admitted to being noncompliant with HAART meds for the last 2 months. He has been counseled. 4. Oral thrush: Continue nystatin. 5. Anemia: Hemoglobin stable. Received transfusion of 2 units PRBCs on 11/16/16. 6. Hypertension, tachycardia: Continue metoprolol. Heart rate improved today. 7. Buttock, perirectal wounds: HSV positive. Continue Valtrex 14 days then chronic suppression with acyclovir. 8. DVT prophylaxis: Heparin. Problem Qualifiers (1) Renal failure: (2) Sepsis: Rod Nguyen MD Nov 22, 2016 11:25
[2016-11-22] MEDS: SODIUM CHLORIDE 0.9% FLUSH 10 ML FLUSH IV FLUSH PRN (15:12)
[2016-11-22] MEDS: HEPARIN SODIUM - IV 10,000 UNITS/10 ML VIAL IVF PRN (15:12)
[2016-11-22] MEDS: GENTAMICIN SULFATE (DIALYSIS USE ONLY) 20 MG/2 ML VIAL IV PRN (15:12)
[2016-11-22] MEDS: ACETAMINOPHEN 325 MG TAB PO PRN (15:56)
[2016-11-22] MEDS: LEVOFLOXACIN 250 MG TAB PO SCH (16:44)
--- NOTE | 2016-11-22 16:52 | HHI.NPPN ---
Subjective History of Present Illness 50-year-old male with past medical history of HIV disease for more than 20 years and history of renal stone who came to the hospital with complaint of back pain. The patient has back pain going on for the last 2 months off and on and he came to the emergency department yesterday with worsening pain. Additional Remarks Patient is alert, no SOB, still spiking fever, seen during HD. Review of Systems General Constitutional: Fatigue Cardiovascular Cardiac: MIRZA Objective Data Data 11/22/16 11/23/16 19:00 07:00 Output Total 1000 ml Balance -1000 ml Hemodialysis 1000 ml Vital Signs Date Time Temp Pulse Resp B/P (MAP) Pulse Ox O2 Delivery O2 Flow Rate FiO2 11/22/16 16:43 100 Room Air 11/22/16 16:42 96 11/22/16 13:36 100 Room Air 11/22/16 12:00 100.9 91 20 128/87 (101) 100 11/22/16 08:00 99.0 89 20 152/92 (112) 99 11/22/16 06:07 99.1 84 16 120/68 (85) 99 11/22/16 00:58 99.7 83 16 123/72 (89) 99 11/21/16 22:06 Room Air 11/21/16 21:37 102.7 115 18 132/89 (103) 99 11/21/16 20:07 119 11/21/16 17:18 100 Room Air -: 11/20/16 0757 11/20/16 0757 Physical Exam General Appearance: No Acute Distress, Comfortable Eyes Eye Exam: Pupils Equal Throat Throat Exam: Oral Mucosa [place] & Moist Pulmonary Resp Exam: Breath Sounds Equal, No Distress, Rhonchi, Decreased Bases Cardiology CV Exam: Regular, Normal Sinus Rhythm Gastrointestinal/Abdomen GI Exam: Soft, Non-Tender, Bowel Sounds Present Extremeties Extremities Exam: No Edema Neurologic Neuro Exam: Alert, Awake, Oriented Psychiatric Psych Exam: Appropriate Responses Assessment/Plan Assessment Summary: MIKE/Acute Renal Failure Problem List: (1) Renal failure ICD Codes: N19 - Unspecified kidney failure Status: Acute (2) Sepsis ICD Codes: A41.9 - Sepsis, unspecified organism Status: Acute (3) Open wound of scrotum ICD Codes: S31.30XA - Unspecified open wound of scrotum and testes, initial encounter Status: Acute Plan Patient has again increase in the BUN and Creatinine. Remain non oliguric. SPEP was negative. Complements normal, other serology also negative. BP is on higher side, will increase Metoprolol to 50 mg BID. If renal function will not improve, will consider Renal Biopsy once infection is controlled. Still spiking fever, ID is following. HD now, remove fluid as tolerated. Problem Qualifiers (1) Renal failure: (2) Sepsis: Kwadwo Shah MD Nov 22, 2016 16:52
[2016-11-23] VITALS (8 sets, daily range): BP systolic 112–139; BP diastolic 66–88; PULSE 83–112; RESP 18–20; TEMP 98.8–101.4; O2SAT 97–100
[2016-11-23] MEDS: HEPARIN SODIUM - SQ 10,000 UNITS/ML VIAL SQ SCH ×2 (05:00→15:42)
[2016-11-23 06:55] LABS: HEMATOCRIT 26.8 % (39.0-51.0); MEAN CELL VOLUME 88.5 FL (80.0-100.0); MEAN CORPUSCULAR HEMOGLOBIN 29.4 PG (27.0-34.0); MEAN CORPUSCULAR HGB CONC 33.3 % (32.0-36.0); PLATELET COUNT 139 TH/MM3 (150-450); RED BLOOD COUNT 3.02 MIL/MM3 (4.50-5.90); WHITE BLOOD COUNT 5.5 TH/MM3 (4.0-11.0)
[2016-11-23 07:02] LABS: HEMO FLAGS AUTO DIFF
[2016-11-23 07:24] LABS: BICARBONATE 28.5 MEQ/L (21.0-32.0); POTASSIUM 3.6 MEQ/L (3.5-5.1)
[2016-11-23 08:55] LABS: BANDS 6 % (0-6); METAMYELOCYTES 2 % (0-1); NEUTROPHIL # MANUAL DIFF 4.8 TH/MM3 (1.8-7.7); POLYS (SEG NEUTROPHILS) 78 % (16-70); PROMYELOCYTES 1 % (0-0); WBC DIFF SAMPLE 100
[2016-11-23] MEDS: amLODIPine BESYLATE 5 MG TAB PO SCH (08:55)
[2016-11-23] MEDS: DOCUSATE SODIUM 50 MG/SENNA 8.6 MG TAB PO SCH ×2 (08:55→20:20)
[2016-11-23] MEDS: SODIUM CHLORIDE 0.9% FLUSH 10 ML FLUSH IV FLUSH SCH ×2 (08:55→20:20)
[2016-11-23] MEDS: NYSTATIN SUSP 500,000 U/5 ML CUP SWISH-SWAL SCH ×4 (08:55→20:20)
[2016-11-23] MEDS: CLARITHROMYCIN 500 MG TAB PO SCH ×2 (08:55→20:20)
[2016-11-23] MEDS: ETHAMBUTOL HCL 400 MG TAB PO SCH (08:55)
[2016-11-23] MEDS: METOPROLOL TARTRATE 25 MG TAB PO SCH ×2 (08:55→20:20)
[2016-11-23 08:59] LABS: ACANTHOCYTES OCC (NORMAL); OVALOCYTES 1+ (NORMAL); PLATELET ESTIMATE SMEAR LOW (NORMAL); PLATELET MORPHOLOGY ENLARGED (NORMAL)
[2016-11-23 09:00] LABS: HELMET CELLS OCC (NORMAL); SCAN/DIFF FINAL DIFF MANUAL
--- NOTE | 2016-11-23 11:40 | HHI.NPPN ---
Subjective History of Present Illness 50-year-old male with past medical history of HIV disease for more than 20 years and history of renal stone who came to the hospital with complaint of back pain. The patient has back pain going on for the last 2 months off and on and he came to the emergency department yesterday with worsening pain. Additional Remarks Patient is alert, no SOB, still spiking fever, eating better. Review of Systems General Constitutional: Fatigue Cardiovascular Cardiac: MIRZA Objective Data Data Vital Signs Date Time Temp Pulse Resp B/P (MAP) Pulse Ox O2 Delivery O2 Flow Rate FiO2 11/23/16 08:00 Room Air 11/23/16 08:00 99.2 99 20 126/78 (94) 100 11/23/16 04:05 98.8 98 18 139/88 (105) 100 11/23/16 00:05 99.2 83 18 119/80 (93) 99 11/22/16 20:36 98 11/22/16 20:00 98.7 97 20 122/82 (95) 99 11/22/16 20:00 Room Air 11/22/16 16:43 100 Room Air 11/22/16 16:42 96 11/22/16 16:00 100.8 112 20 136/81 (99) 99 11/22/16 13:36 100 Room Air 11/22/16 12:00 100.9 91 20 128/87 (101) 100 -: 11/23/16 0601 11/23/16 0601 Physical Exam General Appearance: No Acute Distress, Comfortable Eyes Eye Exam: Pupils Equal Throat Throat Exam: Oral Mucosa [place] & Moist Pulmonary Resp Exam: Breath Sounds Equal, No Distress, Rhonchi, Decreased Bases Cardiology CV Exam: Regular, Normal Sinus Rhythm Gastrointestinal/Abdomen GI Exam: Soft, Non-Tender, Bowel Sounds Present Extremeties Extremities Exam: No Edema Neurologic Neuro Exam: Alert, Awake, Oriented Psychiatric Psych Exam: Appropriate Responses Assessment/Plan Assessment Summary: MIKE/Acute Renal Failure Problem List: (1) Renal failure ICD Codes: N19 - Unspecified kidney failure Status: Acute (2) Sepsis ICD Codes: A41.9 - Sepsis, unspecified organism Status: Acute (3) Open wound of scrotum ICD Codes: S31.30XA - Unspecified open wound of scrotum and testes, initial encounter Status: Acute Plan Patient has again increase in the BUN and Creatinine. Remain non oliguric. SPEP was negative. Complements normal, other serology also negative. BP is on higher side, will increase Metoprolol to 50 mg BID. If renal function will not improve, will consider Renal Biopsy once infection is controlled. Still spiking fever, ID is following. Now on Bactrim, Acyclovir, Clarithromycin and Ethambutol. HD will be again in AM. Problem Qualifiers (1) Renal failure: (2) Sepsis: Kwadwo Shah MD Nov 23, 2016 11:40
--- NOTE | 2016-11-23 12:28 | HHI.IDPN ---
Subjective Subjective Remarks Patient is a 50-year-old male, with known HIV, the last 23 years, states his last CD4 count was around 2, has been following with an HIV provider over the last 4 years, percent to the hospital complaining all severe buttock pain which has been present for the last 2 months. He apparently initially noted some blister looking lesions that are painful on his right buttock. It spread, and he thought it was no resolve on its own, but they persisted and he continued to have problem. He initially also had some right sided abdominal pain, and thought that it was his kidney stone. He has had previous problem with kidney stone. Patient stated that he passed the stone. He currently denies any dysuria, and denies any prior history of hematuria. He has not had any fever or chills prior to admission, but since admission patient has had fevers. Denies any respiratory complaint. Denies any diarrhea. He's had some on and off vomiting, and this is the reason why he has not been very compliant with his HIV medication. On presentation, patient was found to have an abnormal urinalysis. His creatinine was 7+. CT of the abdomen and pelvis showed some stones but there is no evidence of hydronephrosis. Chest x-ray is unremarkable. As noted to have multiple ulcers in the room right buttock, as well as in the perirectal area. Some ulcers noted also in the scrotal area. Infectious disease consultation has been requested to evaluate the patient. Notes reviewed Temps not as high last night NO new complaints Had HD yesterday BC from 11/10 growing AFB Tagged WBC scan negative CMV negative HSV 1 and 2 (+) VZV IgM negative, IgG (+) BC negative UC mixed bacteria Wound C/S E coli CD4 <20 ESR >140 CRP 17 Antibiotics Rocephin - finished 11/21 Valtrex - completed yesterday Levaquin Zithromax Ethambutol Lines PIV Past Medical History HIV, for 20+years, noncompliant with medications for the past 2 months Kidney stones Allergies: Coded Allergies: No Known Allergies (Unverified , 11/05/16) Objective . Vital Signs Date Time Temp Pulse Resp B/P (MAP) Pulse Ox O2 Delivery O2 Flow Rate FiO2 11/23/16 08:00 Room Air 11/23/16 08:00 99.2 99 20 126/78 (94) 100 11/23/16 04:05 98.8 98 18 139/88 (105) 100 11/23/16 00:05 99.2 83 18 119/80 (93) 99 11/22/16 20:36 98 11/22/16 20:00 98.7 97 20 122/82 (95) 99 11/22/16 20:00 Room Air 11/22/16 16:43 100 Room Air 11/22/16 16:42 96 11/22/16 16:00 100.8 112 20 136/81 (99) 99 11/22/16 13:36 100 Room Air . Laboratory Tests Test 11/23/16 06:01 White Blood Count 5.5 TH/MM3 Red Blood Count 3.02 MIL/MM3 Hemoglobin 8.9 GM/DL Hematocrit 26.8 % Mean Corpuscular Volume 88.5 FL Mean Corpuscular Hemoglobin 29.4 PG Mean Corpuscular Hemoglobin Concent 33.3 % Red Cell Distribution Width 15.0 % Platelet Count 139 TH/MM3 Mean Platelet Volume 9.3 FL CBC Comment AUTO DIFF Differential Total Cells Counted 100 Neutrophils % (Manual) 78 % Band Neutrophils % 6 % Lymphocytes % 4 % Monocytes % 9 % Neutrophils # (Manual) 4.8 TH/MM3 Metamyelocytes 2 % Promyelocytes 1 % Differential Comment FINAL DIFF MANUAL Platelet Estimate LOW Platelet Morphology Comment ENLARGED Ovalocytes 1+ Helmet Cells OCC Acanthocytes OCC Laboratory Tests Test 11/23/16 06:01 Blood Urea Nitrogen 34 MG/DL Creatinine 7.63 MG/DL Random Glucose 94 MG/DL Calcium Level 8.1 MG/DL Sodium Level 136 MEQ/L Potassium Level 3.6 MEQ/L Chloride Level 95 MEQ/L Carbon Dioxide Level 28.5 MEQ/L Anion Gap 13 MEQ/L Estimat Glomerular Filtration Rate 9 ML/MIN Imaging Catheter Placement X-Ray 11/14/16 0600 Signed Impressions: Service Date/Time: Monday, November 14, 2016 11:24 - CONCLUSION: Uncomplicated line placement as above. William Modi MD Tumor Localization 11/14/16 0000 Signed Impressions: Service Date/Time: Monday, November 14, 2016 11:38 - CONCLUSION: Negative scan Solitario Diaz MD Chest X-Ray 11/13/16 0000 Signed Impressions: Service Date/Time: Sunday, November 13, 2016 16:02 - CONCLUSION: No acute cardiopulmonary disease. K. Blade Shamlou, MD Renal Ultrasound 11/05/16 Signed Impressions: Service Date/Time: Saturday, November 05, 2016 19:17 - CONCLUSION: Diffusely echogenic kidneys indicating medical renal disease. Dorian Murry MD Abdomen/Pelvis CT 11/05/16 Signed Impressions: Service Date/Time: Saturday, November 05, 2016 17:19 - CONCLUSION: 1. 4 mm calculus in the right renal pelvis/ureteropelvic junction with mild adjacent perinephric/periureteral stranding. No evidence of hydronephrosis. 2. 1 cm round hypodensity in the anterior right mid kidney statistically most likely to represent a cyst. 3. 3.7 cm hypodensity in the right lobe of the liver air the dome of the diaphragm. This finding is nonspecific on noncontrast CT. The most likely etiologies include hemangioma and cyst. It could be further evaluated with ultrasound nonemergent followup MRI of the abdomen. 4. Mild dilated proximal right common iliac artery. Dorian Murry MD Last Impressions Renal Ultrasound 11/05/16 Signed Impressions: Service Date/Time: Saturday, November 05, 2016 19:17 - CONCLUSION: Diffusely echogenic kidneys indicating medical renal disease. Dorian Murry MD Chest X-Ray 11/05/16 Signed Impressions: Service Date/Time: Saturday, November 05, 2016 17:07 - CONCLUSION: 1. Patchy consolidation versus atelectasis in the upper lung zone on the lateral view. 2. 1 cm nodular density in the left lower lung zone on the PA view only. Recommend noncontrast chest CT to evaluate for pulmonary nodule. Dorian Murry MD Abdomen/Pelvis CT 11/05/16 Signed Impressions: Service Date/Time: Saturday, November 05, 2016 17:19 - CONCLUSION: 1. 4 mm calculus in the right renal pelvis/ureteropelvic junction with mild adjacent perinephric/periureteral stranding. No evidence of hydronephrosis. 2. 1 cm round hypodensity in the anterior right mid kidney statistically most likely to represent a cyst. 3. 3.7 cm hypodensity in the right lobe of the liver air the dome of the diaphragm. This finding is nonspecific on noncontrast CT. The most likely etiologies include hemangioma and cyst. It could be further evaluated with ultrasound nonemergent followup MRI of the abdomen. 4. Mild dilated proximal right common iliac artery. Dorian Murry MD Physical Exam GENERAL: awake and alert, not in respiratory distress. SKIN: Warm and dry. He has hyperpigmented macules in his UE. HEAD: Atraumatic. Normocephalic. No temporal wasting, or tenderness. EYES: [place] conjunctiva. No petechia or hemorrhage. No scleral icterus. No injection or drainage. EARS, NOSE AND THROAT: Nose without bleeding or purulent nasal discharge. Mucous membranes pink and moist. No oral lesions noted. No exudate. Has improving oral thrush. NECK: Trachea midline. Supple and not tender, no meningeal signs CARDIOVASCULAR: Regular rate and rhythm. No murmurs, rubs or gallops heard RESPIRATORY: Clear to auscultation. Breath sounds equal bilaterally. No rales , wheezing or rhonchi ABDOMEN: Soft, non-tender, nondistended. Bowel sounds present and normoactive. No guarding. No rebound. No organomegaly. EXTREMITIES: No clubbing, cyanosis, or edema.No joint effusion, has good ROM. No calf tenderness. Well perfused and warm. BACK: He has multiple ulcers in his R buttock, and smaller ulcers in perirectal area, no surrounding cellulitis, lesions clean and much improved, no purulence NEUROLOGICAL: Non-focal PSYCHIATRIC: Normal affect, calm and cooperative. LINE: No evidence of infection : No penile ulcer or drainage noted Assessment & Plan Remarks IMPRESSION Fevers, persistent, not as high - likely due to AFB in BC, likely LULU - repeat UA negative - has stones, patient stated he passed the stones, no obstruction on imaging studies - ?infection related to his chronic HIV - ulcers in buttock, doubt causing fevers, looks herpetic, ?VZV Renal failure HIV RECOMMENDATION Continue Levaquin Continue Biaxin Continue EMB Will start prophylaxis with Acyclovir Wound care Follow temps Monitor progress PCP prophylaxis - Bactrim Bozena Santacruz MD Nov 23, 2016 12:28
--- NOTE | 2016-11-23 15:48 | HHI.PR ---
Subjective Remarks Follow up acute renal failure, pneumonia. Patient has no complaints at this time. He is not cooperative with examination today. Denies pain. Objective Vitals Vital Signs Date Time Temp Pulse Resp B/P (MAP) Pulse Ox O2 Delivery O2 Flow Rate FiO2 11/23/16 12:00 99.4 90 20 114/69 (84) 100 11/23/16 08:00 Room Air 11/23/16 08:00 99.2 99 20 126/78 (94) 100 11/23/16 04:05 98.8 98 18 139/88 (105) 100 11/23/16 00:05 99.2 83 18 119/80 (93) 99 11/22/16 20:36 98 11/22/16 20:00 98.7 97 20 122/82 (95) 99 11/22/16 20:00 Room Air 11/22/16 16:43 100 Room Air 11/22/16 16:42 96 11/22/16 16:00 100.8 112 20 136/81 (99) 99 I/O 11/22/16 11/22/16 11/22/16 11/23/16 11/23/16 11/23/16 07:00 15:00 23:00 07:00 15:00 23:00 Intake Total 480 ml 360 ml 480 ml Output Total 400 ml 1800 ml 150 ml Balance 80 ml -1440 ml 330 ml Intake Oral 480 ml 360 ml 480 ml Output Urine Total 400 ml 800 ml 150 ml Hemodialysis 1000 ml # Voids 2 # Bowel Movements 1 0 1 Result Diagram: 11/23/16 0601 11/23/16 0601 Imaging Last Impressions Catheter Placement X-Ray 11/14/16 06 Signed Impressions: Service Date/Time: Monday, November 14, 2016 11:24 - CONCLUSION: Uncomplicated line placement as above. William Modi MD Tumor Localization 11/14/16 0000 Signed Impressions: Service Date/Time: Monday, November 14, 2016 11:38 - CONCLUSION: Negative scan Solitario Diaz MD Chest X-Ray 11/13/16 0000 Signed Impressions: Service Date/Time: Sunday, November 13, 2016 16:02 - CONCLUSION: No acute cardiopulmonary disease. Quincy Medellin MD Renal Ultrasound 11/05/16 0000 Signed Impressions: Service Date/Time: Saturday, November 05, 2016 19:17 - CONCLUSION: Diffusely echogenic kidneys indicating medical renal disease. Dorian Murry MD Abdomen/Pelvis CT 11/05/16 0000 Signed Impressions: Service Date/Time: Saturday, November 05, 2016 17:19 - CONCLUSION: 1. 4 mm calculus in the right renal pelvis/ureteropelvic junction with mild adjacent perinephric/periureteral stranding. No evidence of hydronephrosis. 2. 1 cm round hypodensity in the anterior right mid kidney statistically most likely to represent a cyst. 3. 3.7 cm hypodensity in the right lobe of the liver air the dome of the diaphragm. This finding is nonspecific on noncontrast CT. The most likely etiologies include hemangioma and cyst. It could be further evaluated with ultrasound nonemergent followup MRI of the abdomen. 4. Mild dilated proximal right common iliac artery. Dorian Murry MD Objective Remarks General: No acute distress. Heart: Regular rate and rhythm. No murmur. Lungs: Clear to auscultation bilaterally. No wheezes, rales, or rhonchi. Breathing is nonlabored. Abdomen: Soft, nontender, nondistended. Extremities: No lower extremity edema. Psych: Alert. Only short answers, yes/no. Procedures 11/14/16 hemodialysis catheter placement, right internal jugular Urinary Catheter: No Vascular Central Line Catheter: No A/P Problem List: (1) Renal failure ICD Code: N19 - Unspecified kidney failure Status: Acute (2) Sepsis ICD Code: A41.9 - Sepsis, unspecified organism Status: Acute (3) UTI (urinary tract infection) ICD Code: N39.0 - Urinary tract infection, site not specified (4) Chronic kidney disease, stage V ICD Code: N18.5 - Chronic kidney disease, stage 5 (5) HIV (human immunodeficiency virus infection) ICD Code: B20 - Human immunodeficiency virus [HIV] disease (6) Anemia ICD Code: D64.9 - Anemia, unspecified (7) Hypertension ICD Code: I10 - Essential (primary) hypertension (8) Medical non-compliance ICD Code: Z91.19 - Patient's noncompliance with other medical treatment and regimen Assessment and Plan 1. Severe sepsis secondary to UTI, pneumonia: Status post treatment with Zosyn. Patient is immunocompromised, noncompliant with HAART for the last 2 months. HSV positive. 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 Blood mycobacterial culture growing acid fast organism. Further ID pending. Still having fevers. 2. Acute renal failure superimposed on chronic kidney disease stage V: Appreciate nephrology recommendations. SPEP, serology negative. Creatinine not improving. 3. HIV/AIDS: CD4 count less than 20. Patient admitted to being noncompliant with HAART meds for the last 2 months. He has been counseled. 4. Oral thrush: Continue nystatin. 5. Anemia: Hemoglobin stable. Received transfusion of 2 units PRBCs on 11/16/16. 6. Hypertension, tachycardia: Continue metoprolol. Heart rate improved today. 7. Buttock, perirectal wounds: HSV positive. Continue Valtrex 14 days then chronic suppression with acyclovir. 8. DVT prophylaxis: Heparin. Problem Qualifiers (1) Renal failure: (2) Sepsis: Rod Nguyen MD Nov 23, 2016 15:48
[2016-11-23] MEDS: ACYCLOVIR 200 MG CAP PO SCH ×2 (17:36→20:19)
[2016-11-23] MEDS: LEVOFLOXACIN 250 MG TAB PO SCH (17:36)
[2016-11-24] VITALS (7 sets, daily range): BP systolic 113–134; BP diastolic 72–80; PULSE 86–116; RESP 16–20; TEMP 98.1–100.9; O2SAT 97–99
[2016-11-24] MEDS: HEPARIN SODIUM - SQ 10,000 UNITS/ML VIAL SQ SCH ×3 (05:00→21:37)
[2016-11-24] MEDS: CLARITHROMYCIN 500 MG TAB PO SCH ×2 (08:09→21:36)
[2016-11-24] MEDS: METOPROLOL TARTRATE 25 MG TAB PO SCH ×2 (08:09→21:36)
[2016-11-24] MEDS: ACYCLOVIR 200 MG CAP PO SCH ×2 (08:09→21:36)
[2016-11-24] MEDS: ETHAMBUTOL HCL 400 MG TAB PO SCH (08:09)
[2016-11-24] MEDS: NYSTATIN SUSP 500,000 U/5 ML CUP SWISH-SWAL SCH ×4 (08:09→21:37)
[2016-11-24] MEDS: SODIUM CHLORIDE 0.9% FLUSH 10 ML FLUSH IV FLUSH SCH ×2 (08:09→21:37)
[2016-11-24] MEDS: DOCUSATE SODIUM 50 MG/SENNA 8.6 MG TAB PO SCH ×2 (08:09→21:00)
[2016-11-24] MEDS: amLODIPine BESYLATE 5 MG TAB PO SCH (08:09)
[2016-11-24 12:04] LABS: BASOPHIL % 0.4 % (0.0-2.0); EOSINOPHIL % 0.5 % (0.0-4.0); HEMATOCRIT 27.5 % (39.0-51.0); LYMPH % 2.5 % (9.0-44.0); LYMPHOCYTE # 0.1 TH/MM3 (1.0-4.8); MEAN CELL VOLUME 88.9 FL (80.0-100.0); MEAN CORPUSCULAR HEMOGLOBIN 29.5 PG (27.0-34.0); MEAN CORPUSCULAR HGB CONC 33.2 % (32.0-36.0); PLATELET COUNT 154 TH/MM3 (150-450); RED CELL DISTRIBUTION WIDTH 14.8 % (11.6-17.2); WHITE BLOOD COUNT 5.9 TH/MM3 (4.0-11.0)
[2016-11-24 12:15] LABS: HEMO FLAGS AUTO DIFF
[2016-11-24 12:19] LABS: POTASSIUM 3.4 MEQ/L (3.5-5.1)
--- NOTE | 2016-11-24 12:33 | HHI.NPPN ---
Subjective History of Present Illness 50-year-old male with past medical history of HIV disease for more than 20 years and history of renal stone who came to the hospital with complaint of back pain. The patient has back pain going on for the last 2 months off and on and he came to the emergency department yesterday with worsening pain. Additional Remarks Patient is alert, no SOB, now fever pattern is better, eating better. Review of Systems General Constitutional: Fatigue Cardiovascular Cardiac: MIRZA Objective Data Data Vital Signs Date Time Temp Pulse Resp B/P (MAP) Pulse Ox O2 Delivery O2 Flow Rate FiO2 11/24/16 12:00 Room Air 11/24/16 09:00 94 11/24/16 08:00 Room Air 11/24/16 04:00 98.9 90 20 134/80 (98) 97 11/24/16 04:00 Room Air 11/24/16 00:00 99.9 92 20 128/75 (92) 98 11/24/16 00:00 Room Air 11/23/16 20:00 Room Air 11/23/16 20:00 112 11/23/16 20:00 99.9 111 20 112/73 (86) 97 11/23/16 18:00 100.7 11/23/16 16:00 101.4 98 20 118/66 (83) 99 11/23/16 16:00 Room Air -: 11/24/16 1057 11/24/16 1057 Physical Exam General Appearance: No Acute Distress, Comfortable Eyes Eye Exam: Pupils Equal Throat Throat Exam: Oral Mucosa [place] & Moist Pulmonary Resp Exam: Breath Sounds Equal, No Distress, Rhonchi, Decreased Bases Cardiology CV Exam: Regular, Normal Sinus Rhythm Gastrointestinal/Abdomen GI Exam: Soft, Non-Tender, Bowel Sounds Present Extremeties Extremities Exam: No Edema Neurologic Neuro Exam: Alert, Awake, Oriented Psychiatric Psych Exam: Appropriate Responses Assessment/Plan Assessment Summary: MIKE/Acute Renal Failure Problem List: (1) Renal failure ICD Codes: N19 - Unspecified kidney failure Status: Acute (2) Sepsis ICD Codes: A41.9 - Sepsis, unspecified organism Status: Acute (3) Open wound of scrotum ICD Codes: S31.30XA - Unspecified open wound of scrotum and testes, initial encounter Status: Acute Plan Patient has again increase in the BUN and Creatinine. Remain non oliguric. SPEP was negative. Complements normal, other serology also negative. BP is on higher side, will increase Metoprolol to 50 mg BID. If renal function will not improve, will consider Renal Biopsy once infection is controlled. Fever pattern is better, ID is following. Now on Bactrim, Acyclovir, Clarithromycin and Ethambutol. HD will be done today. No improvement in renal function. Problem Qualifiers (1) Renal failure: (2) Sepsis: Kwadwo Shah MD Nov 24, 2016 12:33
[2016-11-24 13:14] LABS: BANDS 7 % (0-6); METAMYELOCYTES 3 % (0-1); MYELOCYTES 2 % (0-0); NEUTROPHIL # MANUAL DIFF 5.3 TH/MM3 (1.8-7.7); POLYS (SEG NEUTROPHILS) 77 % (16-70); PROMYELOCYTES 1 % (0-0); WBC DIFF SAMPLE 100
[2016-11-24 13:15] LABS: OVALOCYTES 1+ (NORMAL); PLATELET ESTIMATE SMEAR NORMAL (NORMAL); PLATELET MORPHOLOGY NORMAL (NORMAL); SCAN/DIFF FINAL DIFF MANUAL
--- NOTE | 2016-11-24 13:28 | HHI.PR ---
Subjective Remarks Follow up renal failure, pneumonia. Patient reports nausea today. Denies chest pain, dyspnea. Objective Vitals Vital Signs Date Time Temp Pulse Resp B/P (MAP) Pulse Ox O2 Delivery O2 Flow Rate FiO2 11/24/16 12:00 Room Air 11/24/16 09:00 94 11/24/16 08:00 Room Air 11/24/16 04:00 98.9 90 20 134/80 (98) 97 11/24/16 04:00 Room Air 11/24/16 00:00 99.9 92 20 128/75 (92) 98 11/24/16 00:00 Room Air 11/23/16 20:00 Room Air 11/23/16 20:00 112 11/23/16 20:00 99.9 111 20 112/73 (86) 97 11/23/16 18:00 100.7 11/23/16 16:00 101.4 98 20 118/66 (83) 99 11/23/16 16:00 Room Air I/O 11/23/16 11/23/16 11/23/16 11/24/16 11/24/16 11/24/16 07:00 15:00 23:00 07:00 15:00 23:00 Intake Total 480 ml 480 ml 240 ml Output Total 150 ml 200 ml 350 ml Balance 330 ml 280 ml -110 ml Intake Oral 480 ml 480 ml 240 ml Output Urine Total 150 ml 200 ml 350 ml # Voids 1 # Bowel Movements 1 0 Result Diagram: 11/24/16 1057 11/24/16 1057 Imaging Last Impressions Catheter Placement X-Ray 11/14/16 0600 Signed Impressions: Service Date/Time: Monday, November 14, 2016 11:24 - CONCLUSION: Uncomplicated line placement as above. William Modi MD Tumor Localization 11/14/16 0000 Signed Impressions: Service Date/Time: Monday, November 14, 2016 11:38 - CONCLUSION: Negative scan Solitario Diaz MD Chest X-Ray 11/13/16 0000 Signed Impressions: Service Date/Time: Sunday, November 13, 2016 16:02 - CONCLUSION: No acute cardiopulmonary disease. Quincy Medellin MD Renal Ultrasound 11/05/16 0000 Signed Impressions: Service Date/Time: Saturday, November 05, 2016 19:17 - CONCLUSION: Diffusely echogenic kidneys indicating medical renal disease. Dorian Murry MD Abdomen/Pelvis CT 11/05/16 0000 Signed Impressions: Service Date/Time: Saturday, November 05, 2016 17:19 - CONCLUSION: 1. 4 mm calculus in the right renal pelvis/ureteropelvic junction with mild adjacent perinephric/periureteral stranding. No evidence of hydronephrosis. 2. 1 cm round hypodensity in the anterior right mid kidney statistically most likely to represent a cyst. 3. 3.7 cm hypodensity in the right lobe of the liver air the dome of the diaphragm. This finding is nonspecific on noncontrast CT. The most likely etiologies include hemangioma and cyst. It could be further evaluated with ultrasound nonemergent followup MRI of the abdomen. 4. Mild dilated proximal right common iliac artery. Dorian Murry MD Objective Remarks General: No acute distress. Heart: Regular rate and rhythm. No murmur. Lungs: Clear to auscultation bilaterally. No wheezes, rales, or rhonchi. Breathing is nonlabored. Abdomen: Soft, nontender, nondistended. Extremities: No lower extremity edema. Psych: Alert. Skin: Buttock wounds appear to be healing. Procedures 11/14/16 hemodialysis catheter placement, right internal jugular Urinary Catheter: No Vascular Central Line Catheter: No A/P Problem List: (1) Renal failure ICD Code: N19 - Unspecified kidney failure Status: Acute (2) Sepsis ICD Code: A41.9 - Sepsis, unspecified organism Status: Acute (3) UTI (urinary tract infection) ICD Code: N39.0 - Urinary tract infection, site not specified (4) Chronic kidney disease, stage V ICD Code: N18.5 - Chronic kidney disease, stage 5 (5) HIV (human immunodeficiency virus infection) ICD Code: B20 - Human immunodeficiency virus [HIV] disease (6) Anemia ICD Code: D64.9 - Anemia, unspecified (7) Hypertension ICD Code: I10 - Essential (primary) hypertension (8) Medical non-compliance ICD Code: Z91.19 - Patient's noncompliance with other medical treatment and regimen Assessment and Plan 1. Severe sepsis secondary to UTI, pneumonia: Status post treatment with Zosyn. Patient is immunocompromised, noncompliant with HAART for the last 2 months. HSV positive. 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 Blood mycobacterial culture growing acid fast organism. Further ID pending. Still having fevers. 2. Acute renal failure superimposed on chronic kidney disease stage V: Appreciate nephrology recommendations. SPEP, serology negative. Creatinine not improving. Hemodialysis per nephrology. 3. HIV/AIDS: CD4 count less than 20. Patient admitted to being noncompliant with HAART meds for the last 2 months. He has been counseled. 4. Oral thrush: Continue nystatin. 5. Anemia: Hemoglobin stable. Received transfusion of 2 units PRBCs on 11/16/16. 6. Hypertension, tachycardia: Continue metoprolol. Heart rate improved today. 7. Buttock, perirectal wounds: HSV positive. Continue Valtrex 14 days then chronic suppression with acyclovir. 8. DVT prophylaxis: Heparin. Problem Qualifiers (1) Renal failure: (2) Sepsis: Rod Nguyen MD Nov 24, 2016 13:28
[2016-11-24] MEDS: HEPARIN SODIUM - IV 10,000 UNITS/10 ML VIAL IVF PRN (15:00)
[2016-11-24] MEDS: HEPARIN SODIUM - IV 10,000 UNITS/10 ML VIAL PRN (16:40)
[2016-11-24] MEDS: GENTAMICIN SULFATE (DIALYSIS USE ONLY) 20 MG/2 ML VIAL IV PRN (16:40)
[2016-11-24] MEDS: LEVOFLOXACIN 250 MG TAB PO SCH (17:43)
[2016-11-24] MEDS: ACETAMINOPHEN 325 MG TAB PO PRN (21:38)
[2016-11-25] VITALS (8 sets, daily range): BP systolic 106–129; BP diastolic 66–78; PULSE 85–94; RESP 16–20; TEMP 97.8–99.2; O2SAT 96–100
[2016-11-25] MEDS: ETHAMBUTOL HCL 400 MG TAB PO SCH (08:48)
[2016-11-25] MEDS: CLARITHROMYCIN 500 MG TAB PO SCH ×2 (08:48→22:23)
[2016-11-25] MEDS: METOPROLOL TARTRATE 25 MG TAB PO SCH ×2 (08:48→22:23)
[2016-11-25] MEDS: DOCUSATE SODIUM 50 MG/SENNA 8.6 MG TAB PO SCH ×2 (08:48→21:00)
[2016-11-25] MEDS: ACYCLOVIR 200 MG CAP PO SCH ×2 (08:48→22:23)
[2016-11-25] MEDS: SULFAMETHOXAZOLE-TRIMETHOPRIM DS 800-160 MG TAB PO SCH (08:48)
[2016-11-25] MEDS: amLODIPine BESYLATE 5 MG TAB PO SCH (08:48)
[2016-11-25] MEDS: NYSTATIN SUSP 500,000 U/5 ML CUP SWISH-SWAL SCH ×4 (08:49→22:23)
[2016-11-25] MEDS: SODIUM CHLORIDE 0.9% FLUSH 10 ML FLUSH IV FLUSH SCH ×2 (08:49→22:25)
[2016-11-25 10:31] LABS: HEMATOCRIT 28.6 % (39.0-51.0); MEAN CELL VOLUME 89.5 FL (80.0-100.0); MEAN CORPUSCULAR HGB CONC 32.4 % (32.0-36.0); PLATELET COUNT 164 TH/MM3 (150-450); RED BLOOD COUNT 3.19 MIL/MM3 (4.50-5.90); RED CELL DISTRIBUTION WIDTH 15.1 % (11.6-17.2); WHITE BLOOD COUNT 5.1 TH/MM3 (4.0-11.0)
[2016-11-25 10:33] LABS: HEMO FLAGS AUTO DIFF
[2016-11-25 10:57] LABS: BICARBONATE 30.2 MEQ/L (21.0-32.0); POTASSIUM 3.5 MEQ/L (3.5-5.1)
[2016-11-25 11:53] LABS: BANDS 11 % (0-6); METAMYELOCYTES 4 % (0-1); MYELOCYTES 1 % (0-0); NEUTROPHIL # MANUAL DIFF 4.4 TH/MM3 (1.8-7.7); PLATELET ESTIMATE SMEAR NORMAL (NORMAL); PLATELET MORPHOLOGY NORMAL (NORMAL); POLYS (SEG NEUTROPHILS) 69 % (16-70); PROMYELOCYTES 1 % (0-0); SCAN/DIFF FINAL DIFF MANUAL; WBC DIFF SAMPLE 100
--- NOTE | 2016-11-25 12:27 | HHI.NPPN ---
Subjective History of Present Illness 50-year-old male with past medical history of HIV disease for more than 20 years and history of renal stone who came to the hospital with complaint of back pain. The patient has back pain going on for the last 2 months off and on and he came to the emergency department yesterday with worsening pain. Additional Remarks Patient is alert, now has no fever, started eating better. Review of Systems General Constitutional: Fatigue Cardiovascular Cardiac: MIRZA Objective Data Data Vital Signs Date Time Temp Pulse Resp B/P (MAP) Pulse Ox O2 Delivery O2 Flow Rate FiO2 11/25/16 08:05 85 11/25/16 08:00 98.1 88 20 116/77 (90) 100 11/25/16 07:55 Room Air 11/25/16 04:00 97.8 89 20 112/69 (83) 100 11/25/16 00:00 98.6 86 20 106/66 (79) 100 11/24/16 21:00 Room Air 11/24/16 20:00 100.9 114 20 117/72 (87) 98 11/24/16 20:00 116 11/24/16 16:00 98.1 106 16 118/72 (87) 99 -: 11/25/16 0650 11/25/16 0650 Physical Exam General Appearance: No Acute Distress, Comfortable Eyes Eye Exam: Pupils Equal Throat Throat Exam: Oral Mucosa [place] & Moist Pulmonary Resp Exam: Breath Sounds Equal, No Distress, Rhonchi, Decreased Bases Cardiology CV Exam: Regular, Normal Sinus Rhythm Gastrointestinal/Abdomen GI Exam: Soft, Non-Tender, Bowel Sounds Present Extremeties Extremities Exam: No Edema Neurologic Neuro Exam: Alert, Awake, Oriented Psychiatric Psych Exam: Appropriate Responses Assessment/Plan Assessment Summary: MIKE/Acute Renal Failure Problem List: (1) Renal failure ICD Codes: N19 - Unspecified kidney failure Status: Acute (2) Sepsis ICD Codes: A41.9 - Sepsis, unspecified organism Status: Acute (3) Open wound of scrotum ICD Codes: S31.30XA - Unspecified open wound of scrotum and testes, initial encounter Status: Acute Plan Patient has again increase in the BUN and Creatinine. Remain non oliguric. SPEP was negative. Complements normal, other serology also negative. BP is on higher side, will increase Metoprolol to 50 mg BID. If renal function will not improve, will consider Renal Biopsy once infection is controlled. Fever pattern is better, ID is following. Now on Bactrim, Acyclovir, Clarithromycin and Ethambutol. No improvement in renal function. Will continue HD and watch for renal recovery. HD will be in AM. Problem Qualifiers (1) Renal failure: (2) Sepsis: Kwadwo Shah MD Nov 25, 2016 12:27
--- NOTE | 2016-11-25 14:53 | HHI.PR ---
Subjective Remarks Follow up renal failure, pneumonia. Patient reports one bout of vomiting overnight, has now resolved. Tolerating HD. Denies any chest pain or palpitations. Denies any recent fever, chills, cough, shortness of breath, diarrhea or dysuria. Afebrile. Objective Vitals Vital Signs Date Time Temp Pulse Resp B/P (MAP) Pulse Ox O2 Delivery O2 Flow Rate FiO2 11/25/16 12:00 Room Air 11/25/16 08:05 85 11/25/16 08:00 98.1 88 20 116/77 (90) 100 11/25/16 07:55 Room Air 11/25/16 04:00 97.8 89 20 112/69 (83) 100 11/25/16 00:00 98.6 86 20 106/66 (79) 100 11/24/16 21:00 Room Air 11/24/16 20:00 100.9 114 20 117/72 (87) 98 11/24/16 20:00 116 11/24/16 16:00 98.1 106 16 118/72 (87) 99 I/O 11/24/16 11/24/16 11/24/16 11/25/16 11/25/16 11/25/16 07:00 15:00 23:00 07:00 15:00 23:00 Intake Total 240 ml 240 ml 240 ml Output Total 350 ml 1700 ml 200 ml Balance -110 ml -1460 ml 40 ml Intake Oral 240 ml 240 ml 240 ml Output Urine Total 350 ml 200 ml 200 ml Hemodialysis 1500 ml # Voids 1 # Bowel Movements 0 1 Result Diagram: 11/25/16 0650 11/25/16 0650 Imaging Last Impressions Catheter Placement X-Ray 11/14/16 0600 Signed Impressions: Service Date/Time: Monday, November 14, 2016 11:24 - CONCLUSION: Uncomplicated line placement as above. William Modi MD Tumor Localization 11/14/16 0000 Signed Impressions: Service Date/Time: Monday, November 14, 2016 11:38 - CONCLUSION: Negative scan Solitario Diaz MD Chest X-Ray 11/13/16 0000 Signed Impressions: Service Date/Time: Sunday, November 13, 2016 16:02 - CONCLUSION: No acute cardiopulmonary disease. Quincy Medellin MD Renal Ultrasound 11/05/16 0000 Signed Impressions: Service Date/Time: Saturday, November 05, 2016 19:17 - CONCLUSION: Diffusely echogenic kidneys indicating medical renal disease. Dorian Murry MD Abdomen/Pelvis CT 11/05/16 0000 Signed Impressions: Service Date/Time: Saturday, November 05, 2016 17:19 - CONCLUSION: 1. 4 mm calculus in the right renal pelvis/ureteropelvic junction with mild adjacent perinephric/periureteral stranding. No evidence of hydronephrosis. 2. 1 cm round hypodensity in the anterior right mid kidney statistically most likely to represent a cyst. 3. 3.7 cm hypodensity in the right lobe of the liver air the dome of the diaphragm. This finding is nonspecific on noncontrast CT. The most likely etiologies include hemangioma and cyst. It could be further evaluated with ultrasound nonemergent followup MRI of the abdomen. 4. Mild dilated proximal right common iliac artery. Dorian Murry MD Objective Remarks GENERAL: Well-developed well-nourished. In no acute distress. SKIN: Warm and dry. No lesions noted. No rash. HEENT: Normocephalic. Pupils equal and round and reactive to light. EOMs intact. Mucous membranes moist, thrush noted on back of throat. CARDIOVASCULAR: Regular rate and rhythm. No murmur appreciated. RESPIRATORY: No accessory muscle use. Clear to auscultation. Breath sounds equal bilaterally. GASTROINTESTINAL: Abdomen soft, non-tender, nondistended. Bowel sounds x4. MUSCULOSKELETAL: No obvious deformities. No clubbing or cyanosis. No edema. NEUROLOGICAL: Awake and alert. No focal neurological deficits. Moves upper and lower extremities spontaneously. Normal speech. Strength 5/5. PSYCHIATRIC: Appropriate mood and affect; insight and judgment normal. Procedures 11/14/16 hemodialysis catheter placement, right internal jugular A/P Problem List: (1) Renal failure ICD Code: N19 - Unspecified kidney failure Status: Acute (2) Sepsis ICD Code: A41.9 - Sepsis, unspecified organism Status: Acute (3) UTI (urinary tract infection) ICD Code: N39.0 - Urinary tract infection, site not specified (4) Chronic kidney disease, stage V ICD Code: N18.5 - Chronic kidney disease, stage 5 (5) HIV (human immunodeficiency virus infection) ICD Code: B20 - Human immunodeficiency virus [HIV] disease (6) Anemia ICD Code: D64.9 - Anemia, unspecified (7) Hypertension ICD Code: I10 - Essential (primary) hypertension (8) Medical non-compliance ICD Code: Z91.19 - Patient's noncompliance with other medical treatment and regimen Assessment and Plan 1. Severe sepsis secondary to UTI, pneumonia: Status post treatment with Zosyn. Patient is immunocompromised, noncompliant with HAART for the last 2 months. HSV positive. 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 Blood mycobacterial culture growing acid fast organism. Further ID pending. Fevers resolved, last fever 100.9. 2. Acute renal failure superimposed on chronic kidney disease stage V: Nephrology following, remains non-oliguric. SPEP, serology negative. Creatinine not improving, per Nephro if no improvement a renal biopsy will be done. Follow. Hemodialysis per nephrology. 3. HIV/AIDS: CD4 count less than 20. Patient admitted to being noncompliant with HAART meds for the last 2 months. He has been counseled. 4. Oral thrush: Continue nystatin, clearing up but still present in back of throat. Monitor. 5. Anemia: Hemoglobin stable. Received transfusion of 2 units PRBCs on 11/16/16. 6. Hypertension, tachycardia: Continue metoprolol. Heart rate improved today. 7. Buttock, perirectal wounds: HSV positive. Valtrex end date 11/22. Then chronic suppression with acyclovir. 8. DVT prophylaxis: Heparin. Problem Qualifiers (1) Renal failure: (2) Sepsis: Patrizia Guillen Nov 25, 2016 14:53
[2016-11-25] MEDS: LEVOFLOXACIN 250 MG TAB PO SCH (16:51)
[2016-11-25] MEDS: HEPARIN SODIUM - SQ 10,000 UNITS/ML VIAL SQ SCH (16:52)
[2016-11-26 00:16] VITALS: BP 100/60; PULSE 78; RESP 16; TEMP 98.7; O2SAT 100
[2016-11-26 04:00] VITALS: BP 113/72; PULSE 82; RESP 20; TEMP 98.6; O2SAT 99
[2016-11-26] MEDS: HEPARIN SODIUM - SQ 10,000 UNITS/ML VIAL SQ SCH ×2 (05:00→17:00)
[2016-11-26] MEDS ORDERED: FLUCONAZOLE 200 MG TAB PO ONE (07:45)
[2016-11-26 08:00] VITALS: BP 133/86; PULSE 71; PULSE 87; RESP 16; TEMP 98.6; O2SAT 100
[2016-11-26] MEDS: NYSTATIN SUSP 500,000 U/5 ML CUP SWISH-SWAL SCH ×4 (09:00→21:39)
--- NOTE | 2016-11-26 09:41 | HHI.NPPN ---
Subjective History of Present Illness 50-year-old male with past medical history of HIV disease for more than 20 years and history of renal stone who came to the hospital with complaint of back pain. The patient has back pain going on for the last 2 months off and on and he came to the emergency department yesterday with worsening pain. Additional Remarks Patient is alert, now on HD, feeling cold, no fever now. Review of Systems General Constitutional: Fatigue Cardiovascular Cardiac: MIRZA Objective Data Data Vital Signs Date Time Temp Pulse Resp B/P (MAP) Pulse Ox O2 Delivery O2 Flow Rate FiO2 11/26/16 08:00 98.6 87 16 133/86 (102) 100 11/26/16 04:00 98.6 82 20 113/72 (86) 99 11/26/16 00:16 98.7 78 16 100/60 (73) 100 11/26/16 00:00 Room Air 11/25/16 20:00 Room Air 11/25/16 20:00 99.2 92 16 129/75 (93) 100 11/25/16 19:45 94 11/25/16 16:00 98.6 88 20 113/75 (88) 96 11/25/16 16:00 Room Air 11/25/16 12:00 Room Air 11/25/16 12:00 98.4 85 20 120/78 (92) 99 -: 11/25/16 0650 11/25/16 0650 Physical Exam General Appearance: No Acute Distress, Comfortable Eyes Eye Exam: Pupils Equal Throat Throat Exam: Oral Mucosa [place] & Moist Pulmonary Resp Exam: Breath Sounds Equal, No Distress, Rhonchi, Decreased Bases Cardiology CV Exam: Regular, Normal Sinus Rhythm Gastrointestinal/Abdomen GI Exam: Soft, Non-Tender, Bowel Sounds Present Extremeties Extremities Exam: No Edema Neurologic Neuro Exam: Alert, Awake, Oriented Psychiatric Psych Exam: Appropriate Responses Assessment/Plan Assessment Summary: MIKE/Acute Renal Failure Problem List: (1) Renal failure ICD Codes: N19 - Unspecified kidney failure Status: Acute (2) Sepsis ICD Codes: A41.9 - Sepsis, unspecified organism Status: Acute (3) Open wound of scrotum ICD Codes: S31.30XA - Unspecified open wound of scrotum and testes, initial encounter Status: Acute Plan Patient has again increase in the BUN and Creatinine. Remain non oliguric. SPEP was negative. Complements normal, other serology also negative. BP is better, on Metoprolol to 50 mg BID. If renal function will not improve, will consider Renal Biopsy once infection is controlled. Fever pattern is better, ID is following. Now on Bactrim, Acyclovir, Clarithromycin and Ethambutol. No improvement in renal function. HD now, remove fluid as tolerated. Now afebrile. Problem Qualifiers (1) Renal failure: (2) Sepsis: Kwadwo Shah MD Nov 26, 2016 09:41
[2016-11-26 12:00] VITALS: BP 125/77; PULSE 96; RESP 16; TEMP 99.3; O2SAT 99
[2016-11-26] MEDS: CLARITHROMYCIN 500 MG TAB PO SCH ×2 (12:46→21:43)
[2016-11-26] MEDS: ACYCLOVIR 200 MG CAP PO SCH ×2 (12:46→21:39)
[2016-11-26] MEDS: DOCUSATE SODIUM 50 MG/SENNA 8.6 MG TAB PO SCH ×2 (12:51→21:00)
[2016-11-26] MEDS: amLODIPine BESYLATE 5 MG TAB PO SCH (12:51)
[2016-11-26] MEDS: ETHAMBUTOL HCL 400 MG TAB PO SCH (12:51)
[2016-11-26] MEDS: METOPROLOL TARTRATE 25 MG TAB PO SCH ×2 (12:51→21:39)
[2016-11-26] MEDS: SODIUM CHLORIDE 0.9% FLUSH 10 ML FLUSH IV FLUSH SCH ×2 (12:52→21:43)
[2016-11-26 16:00] VITALS: BP 112/74; PULSE 100; RESP 16; TEMP 99.2; O2SAT 100
--- NOTE | 2016-11-26 16:04 | HHI.PR ---
Subjective Remarks Follow up renal failure, pneumonia. Patient seen and examined, sleeping comfortably in bed in no apparent distress. Denies any further emesis. Tolerated HD well. Continue throat pain. Denies any recent fever, chills, cough , shortness of breath, nausea, vomiting, diarrhea or dysuria. Objective Vitals Vital Signs Date Time Temp Pulse Resp B/P (MAP) Pulse Ox O2 Delivery O2 Flow Rate FiO2 11/26/16 12:00 99.3 96 16 125/77 (93) 99 11/26/16 08:00 71 11/26/16 08:00 96 Room Air 21 11/26/16 08:00 98.6 87 16 133/86 (102) 100 11/26/16 04:00 98.6 82 20 113/72 (86) 99 11/26/16 00:16 98.7 78 16 100/60 (73) 100 11/26/16 00:00 Room Air 11/25/16 20:00 Room Air 11/25/16 20:00 99.2 92 16 129/75 (93) 100 11/25/16 19:45 94 I/O 11/25/16 11/25/16 11/25/16 11/26/16 11/26/16 11/26/16 07:00 15:00 23:00 07:00 15:00 23:00 Intake Total 240 ml 482 ml 240 ml Output Total 200 ml 200 ml 475 ml 1500 ml Balance 40 ml 282 ml -235 ml -1500 ml Intake Oral 240 ml 480 ml 240 ml IV Total 2 ml Output Urine Total 200 ml 200 ml 475 ml Hemodialysis 1500 ml # Voids 2 # Bowel Movements 1 1 2 Result Diagram: 11/25/16 0650 11/25/16 0650 Imaging Last Impressions Catheter Placement X-Ray 11/14/16 0600 Signed Impressions: Service Date/Time: Monday, November 14, 2016 11:24 - CONCLUSION: Uncomplicated line placement as above. William Modi MD Tumor Localization 11/14/16 0000 Signed Impressions: Service Date/Time: Monday, November 14, 2016 11:38 - CONCLUSION: Negative scan Solitario Diaz MD Chest X-Ray 11/13/16 0000 Signed Impressions: Service Date/Time: Sunday, November 13, 2016 16:02 - CONCLUSION: No acute cardiopulmonary disease. Quincy Medellin MD Renal Ultrasound 11/05/16 0000 Signed Impressions: Service Date/Time: Saturday, November 05, 2016 19:17 - CONCLUSION: Diffusely echogenic kidneys indicating medical renal disease. Dorian Murry MD Abdomen/Pelvis CT 11/05/16 0000 Signed Impressions: Service Date/Time: Saturday, November 05, 2016 17:19 - CONCLUSION: 1. 4 mm calculus in the right renal pelvis/ureteropelvic junction with mild adjacent perinephric/periureteral stranding. No evidence of hydronephrosis. 2. 1 cm round hypodensity in the anterior right mid kidney statistically most likely to represent a cyst. 3. 3.7 cm hypodensity in the right lobe of the liver air the dome of the diaphragm. This finding is nonspecific on noncontrast CT. The most likely etiologies include hemangioma and cyst. It could be further evaluated with ultrasound nonemergent followup MRI of the abdomen. 4. Mild dilated proximal right common iliac artery. Dorian Murry MD Objective Remarks GENERAL: Well-developed well-nourished. In no acute distress. SKIN: Warm and dry. No lesions noted. No rash. Right vas cath noted. HEENT: Normocephalic. Pupils equal and round and reactive to light. EOMs intact. Mucous membranes moist, thrush noted on back of throat. CARDIOVASCULAR: Regular rate and rhythm. No murmur appreciated. RESPIRATORY: No accessory muscle use. Clear to auscultation. Breath sounds equal bilaterally. GASTROINTESTINAL: Abdomen soft, non-tender, nondistended. Bowel sounds x4. MUSCULOSKELETAL: No obvious deformities. No clubbing or cyanosis. No edema. NEUROLOGICAL: Awake and alert. No focal neurological deficits. Moves upper and lower extremities spontaneously. Normal speech. Strength 5/5. PSYCHIATRIC: Appropriate mood and affect; insight and judgment normal. Procedures 11/14/16 hemodialysis catheter placement, right internal jugular A/P Problem List: (1) Renal failure ICD Code: N19 - Unspecified kidney failure Status: Acute (2) Sepsis ICD Code: A41.9 - Sepsis, unspecified organism Status: Acute (3) UTI (urinary tract infection) ICD Code: N39.0 - Urinary tract infection, site not specified (4) Chronic kidney disease, stage V ICD Code: N18.5 - Chronic kidney disease, stage 5 (5) HIV (human immunodeficiency virus infection) ICD Code: B20 - Human immunodeficiency virus [HIV] disease (6) Anemia ICD Code: D64.9 - Anemia, unspecified (7) Hypertension ICD Code: I10 - Essential (primary) hypertension (8) Medical non-compliance ICD Code: Z91.19 - Patient's noncompliance with other medical treatment and regimen Assessment and Plan 1. Severe sepsis secondary to UTI, pneumonia: Status post treatment with Zosyn. Patient is immunocompromised, noncompliant with HAART for the last 2 months. HSV positive. 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 Blood mycobacterial culture growing acid fast organism. Afebrile. 2. Acute renal failure superimposed on chronic kidney disease stage V: Nephrology following, remains non-oliguric. SPEP, serology negative. Creatinine not improving, per Nephro if no improvement a renal biopsy will be done. Follow. Hemodialysis per nephrology. 3. HIV/AIDS: CD4 count less than 20. Patient admitted to being noncompliant with HAART meds for the last 2 months. He has been counseled. 4. Oral thrush: Continue nystatin, clearing up but still present in back of throat Will add Diflucan regimen to aid. Monitor. 5. Anemia: Hemoglobin stable. Received transfusion of 2 units PRBCs on 11/16/16. 6. Hypertension, tachycardia: Continue metoprolol. Heart rate controlled. 7. Buttock, perirectal wounds: HSV positive. Valtrex end date 11/22. Then chronic suppression with acyclovir. 8. DVT prophylaxis: Heparin. Problem Qualifiers (1) Renal failure: (2) Sepsis: Patrizia Guillen Nov 26, 2016 16:04
[2016-11-26] MEDS: LEVOFLOXACIN 250 MG TAB PO SCH (17:35)
[2016-11-26 20:00] VITALS: BP 110/70; PULSE 105; PULSE 99; RESP 18; TEMP 99.4; O2SAT 100
[2016-11-27] VITALS (7 sets, daily range): BP systolic 108–117; BP diastolic 64–86; PULSE 71–98; RESP 16–20; TEMP 98.2–99.8; O2SAT 98–100
[2016-11-27] MEDS: HEPARIN SODIUM - SQ 10,000 UNITS/ML VIAL SQ SCH ×2 (04:42→14:33)
[2016-11-27] MEDS: NYSTATIN SUSP 500,000 U/5 ML CUP SWISH-SWAL SCH (09:00)
[2016-11-27] MEDS: ACYCLOVIR 200 MG CAP PO SCH ×2 (09:47→20:47)
[2016-11-27] MEDS: METOPROLOL TARTRATE 25 MG TAB PO SCH ×2 (09:47→20:47)
[2016-11-27] MEDS: FLUCONAZOLE 100 MG TAB PO SCH (09:47)
[2016-11-27] MEDS: ETHAMBUTOL HCL 400 MG TAB PO SCH (09:47)
[2016-11-27] MEDS: CLARITHROMYCIN 500 MG TAB PO SCH ×2 (09:47→20:47)
[2016-11-27] MEDS: DOCUSATE SODIUM 50 MG/SENNA 8.6 MG TAB PO SCH ×2 (09:48→20:47)
[2016-11-27] MEDS: amLODIPine BESYLATE 5 MG TAB PO SCH (09:48)
[2016-11-27] MEDS: SODIUM CHLORIDE 0.9% FLUSH 10 ML FLUSH IV FLUSH SCH ×2 (09:50→20:47)
--- NOTE | 2016-11-27 13:41 | HHI.NPPN ---
Subjective History of Present Illness 50-year-old male with past medical history of HIV disease for more than 20 years and history of renal stone who came to the hospital with complaint of back pain. The patient has back pain going on for the last 2 months off and on and he came to the emergency department yesterday with worsening pain. Additional Remarks Patient is alert, remain afebrile, eating better, no SOB. Review of Systems General Constitutional: Fatigue Cardiovascular Cardiac: MIRZA Objective Data Data Vital Signs Date Time Temp Pulse Resp B/P (MAP) Pulse Ox O2 Delivery O2 Flow Rate FiO2 11/27/16 12:26 98.7 88 19 109/71 (84) 99 11/27/16 08:02 98.2 84 20 113/73 (86) 98 11/27/16 08:00 96 Room Air 21 11/27/16 08:00 71 11/27/16 04:00 99.0 85 20 114/86 (95) 99 11/27/16 04:00 Room Air 11/27/16 00:00 98.4 80 16 108/73 (85) 100 11/27/16 00:00 Room Air 11/26/16 21:45 Room Air 11/26/16 20:00 99.4 99 18 110/70 (83) 100 11/26/16 20:00 105 11/26/16 16:00 99.2 100 16 112/74 (87) 100 -: 11/25/16 0650 11/25/16 0650 Physical Exam General Appearance: No Acute Distress, Comfortable Eyes Eye Exam: Pupils Equal Throat Throat Exam: Oral Mucosa [place] & Moist Pulmonary Resp Exam: Breath Sounds Equal, No Distress, Rhonchi, Decreased Bases Cardiology CV Exam: Regular, Normal Sinus Rhythm Gastrointestinal/Abdomen GI Exam: Soft, Non-Tender, Bowel Sounds Present Extremeties Extremities Exam: No Edema Neurologic Neuro Exam: Alert, Awake, Oriented Psychiatric Psych Exam: Appropriate Responses Assessment/Plan Assessment Summary: MIKE/Acute Renal Failure Problem List: (1) Renal failure ICD Codes: N19 - Unspecified kidney failure Status: Acute (2) Sepsis ICD Codes: A41.9 - Sepsis, unspecified organism Status: Acute (3) Open wound of scrotum ICD Codes: S31.30XA - Unspecified open wound of scrotum and testes, initial encounter Status: Acute Plan Patient has again increase in the BUN and Creatinine. Remain non oliguric. SPEP was negative. Complements normal, other serology also negative. BP is better, on Metoprolol to 50 mg BID. If renal function will not improve, will consider Renal Biopsy once infection is controlled. Fever pattern is better, ID is following. Now on Bactrim, Acyclovir, Clarithromycin and Ethambutol. No improvement in renal function. HD to continue for now. Problem Qualifiers (1) Renal failure: (2) Sepsis: Kwadwo Shah MD Nov 27, 2016 13:41
--- NOTE | 2016-11-27 13:54 | HHI.IDPN ---
Subjective Subjective Remarks Patient is a 50-year-old male, with known HIV, the last 23 years, states his last CD4 count was around 2, has been following with an HIV provider over the last 4 years, percent to the hospital complaining all severe buttock pain which has been present for the last 2 months. He apparently initially noted some blister looking lesions that are painful on his right buttock. It spread, and he thought it was no resolve on its own, but they persisted and he continued to have problem. He initially also had some right sided abdominal pain, and thought that it was his kidney stone. He has had previous problem with kidney stone. Patient stated that he passed the stone. He currently denies any dysuria, and denies any prior history of hematuria. He has not had any fever or chills prior to admission, but since admission patient has had fevers. Denies any respiratory complaint. Denies any diarrhea. He's had some on and off vomiting, and this is the reason why he has not been very compliant with his HIV medication. On presentation, patient was found to have an abnormal urinalysis. His creatinine was 7+. CT of the abdomen and pelvis showed some stones but there is no evidence of hydronephrosis. Chest x-ray is unremarkable. As noted to have multiple ulcers in the room right buttock, as well as in the perirectal area. Some ulcers noted also in the scrotal area. Infectious disease consultation has been requested to evaluate the patient. Notes reviewed [place] NO new complaints Antibiotics Levaquin Biaxin Ethambutol Bactrim PCP prophylaxis Lines PIV Past Medical History HIV, for 20+years, noncompliant with medications for the past 2 months Kidney stones Allergies: Coded Allergies: No Known Allergies (Unverified , 11/05/16) Objective . Vital Signs Date Time Temp Pulse Resp B/P (MAP) Pulse Ox O2 Delivery O2 Flow Rate FiO2 11/27/16 12:26 98.7 88 19 109/71 (84) 99 11/27/16 08:02 98.2 84 20 113/73 (86) 98 11/27/16 08:00 96 Room Air 21 11/27/16 08:00 71 11/27/16 04:00 99.0 85 20 114/86 (95) 99 11/27/16 04:00 Room Air 11/27/16 00:00 98.4 80 16 108/73 (85) 100 11/27/16 00:00 Room Air 11/26/16 21:45 Room Air 11/26/16 20:00 99.4 99 18 110/70 (83) 100 11/26/16 20:00 105 11/26/16 16:00 99.2 100 16 112/74 (87) 100 Imaging Catheter Placement X-Ray 11/14/16 0600 Signed Impressions: Service Date/Time: Monday, November 14, 2016 11:24 - CONCLUSION: Uncomplicated line placement as above. William Modi MD Tumor Localization 11/14/16 0000 Signed Impressions: Service Date/Time: Monday, November 14, 2016 11:38 - CONCLUSION: Negative scan Solitario Diaz MD Chest X-Ray 11/13/16 0000 Signed Impressions: Service Date/Time: Sunday, November 13, 2016 16:02 - CONCLUSION: No acute cardiopulmonary disease. Quincy Medellin MD Renal Ultrasound 11/05/16 0000 Signed Impressions: Service Date/Time: Saturday, November 05, 2016 19:17 - CONCLUSION: Diffusely echogenic kidneys indicating medical renal disease. Dorian Murry MD Abdomen/Pelvis CT 11/05/16 0000 Signed Impressions: Service Date/Time: Saturday, November 05, 2016 17:19 - CONCLUSION: 1. 4 mm calculus in the right renal pelvis/ureteropelvic junction with mild adjacent perinephric/periureteral stranding. No evidence of hydronephrosis. 2. 1 cm round hypodensity in the anterior right mid kidney statistically most likely to represent a cyst. 3. 3.7 cm hypodensity in the right lobe of the liver air the dome of the diaphragm. This finding is nonspecific on noncontrast CT. The most likely etiologies include hemangioma and cyst. It could be further evaluated with ultrasound nonemergent followup MRI of the abdomen. 4. Mild dilated proximal right common iliac artery. Dorian Murry MD Last Impressions Renal Ultrasound 11/05/16 0000 Signed Impressions: Service Date/Time: Saturday, November 05, 2016 19:17 - CONCLUSION: Diffusely echogenic kidneys indicating medical renal disease. Dorian Murry MD Chest X-Ray 11/05/16 0000 Signed Impressions: Service Date/Time: Saturday, November 05, 2016 17:07 - CONCLUSION: 1. Patchy consolidation versus atelectasis in the upper lung zone on the lateral view. 2. 1 cm nodular density in the left lower lung zone on the PA view only. Recommend noncontrast chest CT to evaluate for pulmonary nodule. Dorian Murry MD Abdomen/Pelvis CT 11/05/16 0000 Signed Impressions: Service Date/Time: Saturday, November 05, 2016 17:19 - CONCLUSION: 1. 4 mm calculus in the right renal pelvis/ureteropelvic junction with mild adjacent perinephric/periureteral stranding. No evidence of hydronephrosis. 2. 1 cm round hypodensity in the anterior right mid kidney statistically most likely to represent a cyst. 3. 3.7 cm hypodensity in the right lobe of the liver air the dome of the diaphragm. This finding is nonspecific on noncontrast CT. The most likely etiologies include hemangioma and cyst. It could be further evaluated with ultrasound nonemergent followup MRI of the abdomen. 4. Mild dilated proximal right common iliac artery. Dorian Murry MD Physical Exam GENERAL: awake and alert, not in respiratory distress. SKIN: Warm and dry. He has hyperpigmented macules in his UE. HEAD: Atraumatic. Normocephalic. No temporal wasting, or tenderness. EYES: [place] conjunctiva. No petechia or hemorrhage. No scleral icterus. No injection or drainage. EARS, NOSE AND THROAT: Nose without bleeding or purulent nasal discharge. Mucous membranes pink and moist. No oral lesions noted. No exudate. Has improving oral thrush. NECK: Trachea midline. Supple and not tender, no meningeal signs CARDIOVASCULAR: Regular rate and rhythm. No murmurs, rubs or gallops heard RESPIRATORY: Clear to auscultation. Breath sounds equal bilaterally. No rales , wheezing or rhonchi ABDOMEN: Soft, non-tender, nondistended. Bowel sounds present and normoactive. No guarding. No rebound. No organomegaly. EXTREMITIES: No clubbing, cyanosis, or edema.No joint effusion, has good ROM. No calf tenderness. Well perfused and warm. BACK: He has multiple ulcers in his R buttock, and smaller ulcers in perirectal area, no surrounding cellulitis, lesions clean and much improved, no purulence NEUROLOGICAL: Non-focal PSYCHIATRIC: Normal affect, calm and cooperative. LINE: No evidence of infection : No penile ulcer or drainage noted Assessment & Plan Remarks IMPRESSION Fevers,resolved - likely due to AFB in [place], likely LULU - repeat UA negative - has stones, patient stated he passed the stones, no obstruction on imaging studies - ?infection related to his chronic HIV - ulcers in buttock, doubt causing fevers, looks herpetic, ?VZV Renal failure HIV RECOMMENDATION Continue Levaquin Continue Biaxin Continue EMB Indefinite regimen for above until ID of AFB available Continue prophylaxis with Acyclovir Continue PCP prophylaxis Wound care Follow-up with his HIV provider I will sign off He is stable from ID standpoint Please reconsult if with any new ID issue or question Bozena Chambers MD Nov 27, 2016 13:54
--- NOTE | 2016-11-27 14:40 | HHI.PR ---
Subjective Remarks Follow up renal failure, pneumonia. Patient seen and examined, sleeping. Awakens to voice. Denies any new acute complaints overnight. Denies any continued emesis. Sore throat improved with Diflucan. Eating well. Afebrile. Tmax 99.8. Objective Vitals Vital Signs Date Time Temp Pulse Resp B/P (MAP) Pulse Ox O2 Delivery O2 Flow Rate FiO2 11/27/16 12:26 98.7 88 19 109/71 (84) 99 11/27/16 08:02 98.2 84 20 113/73 (86) 98 11/27/16 08:00 96 Room Air 21 11/27/16 08:00 71 11/27/16 04:00 99.0 85 20 114/86 (95) 99 11/27/16 04:00 Room Air 11/27/16 00:00 98.4 80 16 108/73 (85) 100 11/27/16 00:00 Room Air 11/26/16 21:45 Room Air 11/26/16 20:00 99.4 99 18 110/70 (83) 100 11/26/16 20:00 105 11/26/16 16:00 99.2 100 16 112/74 (87) 100 I/O 11/26/16 11/26/16 11/26/16 11/27/16 11/27/16 11/27/16 07:00 15:00 23:00 07:00 15:00 23:00 Intake Total 240 ml 720 ml Output Total 475 ml 1500 ml 0 ml Balance -235 ml -1500 ml 720 ml Intake Oral 240 ml 720 ml Output Urine Total 475 ml 0 ml Hemodialysis 1500 ml # Bowel Movements 2 1 Result Diagram: 11/25/16 0650 11/25/16 0650 Imaging Last Impressions Catheter Placement X-Ray 11/14/16 0600 Signed Impressions: Service Date/Time: Monday, November 14, 2016 11:24 - CONCLUSION: Uncomplicated line placement as above. William Modi MD Tumor Localization 11/14/16 0000 Signed Impressions: Service Date/Time: Monday, November 14, 2016 11:38 - CONCLUSION: Negative scan Solitario Diaz MD Chest X-Ray 11/13/16 0000 Signed Impressions: Service Date/Time: Sunday, November 13, 2016 16:02 - CONCLUSION: No acute cardiopulmonary disease. Quincy Medellin MD Renal Ultrasound 11/05/16 0000 Signed Impressions: Service Date/Time: Saturday, November 05, 2016 19:17 - CONCLUSION: Diffusely echogenic kidneys indicating medical renal disease. Dorian Murry MD Abdomen/Pelvis CT 11/05/16 0000 Signed Impressions: Service Date/Time: Saturday, November 05, 2016 17:19 - CONCLUSION: 1. 4 mm calculus in the right renal pelvis/ureteropelvic junction with mild adjacent perinephric/periureteral stranding. No evidence of hydronephrosis. 2. 1 cm round hypodensity in the anterior right mid kidney statistically most likely to represent a cyst. 3. 3.7 cm hypodensity in the right lobe of the liver air the dome of the diaphragm. This finding is nonspecific on noncontrast CT. The most likely etiologies include hemangioma and cyst. It could be further evaluated with ultrasound nonemergent followup MRI of the abdomen. 4. Mild dilated proximal right common iliac artery. Dorian Murry MD Objective Remarks GENERAL: Well-developed well-nourished. In no acute distress. SKIN: Warm and dry. No lesions noted. No rash. Right vas cath noted. HEENT: Normocephalic. Pupils equal and round and reactive to light. EOMs intact. Mucous membranes moist, thrush noted on back of throat, improving. CARDIOVASCULAR: Regular rate and rhythm. No murmur appreciated. RESPIRATORY: No accessory muscle use. Clear to auscultation. Breath sounds equal bilaterally. GASTROINTESTINAL: Abdomen soft, non-tender, nondistended. Bowel sounds x4. MUSCULOSKELETAL: No obvious deformities. No clubbing or cyanosis. No edema. NEUROLOGICAL: Awake and alert. No focal neurological deficits. Moves upper and lower extremities spontaneously. Normal speech. Strength 5/5. PSYCHIATRIC: Appropriate mood and affect; insight and judgment normal. Procedures 11/14/16 hemodialysis catheter placement, right internal jugular A/P Problem List: (1) Renal failure ICD Code: N19 - Unspecified kidney failure Status: Acute (2) Sepsis ICD Code: A41.9 - Sepsis, unspecified organism Status: Acute (3) UTI (urinary tract infection) ICD Code: N39.0 - Urinary tract infection, site not specified (4) Chronic kidney disease, stage V ICD Code: N18.5 - Chronic kidney disease, stage 5 (5) HIV (human immunodeficiency virus infection) ICD Code: B20 - Human immunodeficiency virus [HIV] disease (6) Anemia ICD Code: D64.9 - Anemia, unspecified (7) Hypertension ICD Code: I10 - Essential (primary) hypertension (8) Medical non-compliance ICD Code: Z91.19 - Patient's noncompliance with other medical treatment and regimen Assessment and Plan 1. Severe sepsis secondary to UTI, pneumonia: Status post treatment with Zosyn. Patient is immunocompromised, noncompliant with HAART for the last 2 months. HSV positive. 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 Blood mycobacterial culture growing acid fast organism. Afebrile.ID signed off, will continue regimen. 2. Acute renal failure superimposed on chronic kidney disease stage V: Nephrology following, remains non-oliguric. SPEP, serology negative. Creatinine not improving, per Nephro if no improvement a renal biopsy will be done. Follow. Hemodialysis per nephrology. 3. HIV/AIDS: CD4 count less than 20. Patient admitted to being noncompliant with HAART meds for the last 2 months. He has been counseled. 4. Oral thrush, improving: Continue nystatin, clearing up but still present in back of throat. Continue Diflucan. Monitor. 5. Anemia: Hemoglobin stable. Received transfusion of 2 units PRBCs on 11/16/16. 6. Hypertension, tachycardia: Continue metoprolol. Heart rate controlled. 7. Buttock, perirectal wounds: HSV positive. Valtrex end date 11/22. Then chronic suppression with acyclovir. 8. DVT prophylaxis: Heparin. Problem Qualifiers (1) Renal failure: (2) Sepsis: Patrizia Guillen Nov 27, 2016 14:40
[2016-11-27] MEDS: LEVOFLOXACIN 250 MG TAB PO SCH (16:50)
[2016-11-27 18:33] LABS: AUTOMATED NEUTROPHIL # 5.8 TH/MM3 (1.8-7.7); BASOPHIL % 0.4 % (0.0-2.0); EOSINOPHIL % 0.4 % (0.0-4.0); HEMATOCRIT 27.8 % (39.0-51.0); LYMPH % 3.1 % (9.0-44.0); LYMPHOCYTE # 0.2 TH/MM3 (1.0-4.8); MEAN CELL VOLUME 89.3 FL (80.0-100.0); MEAN CORPUSCULAR HEMOGLOBIN 29.8 PG (27.0-34.0); MEAN CORPUSCULAR HGB CONC 33.4 % (32.0-36.0); NEUT % 86.1 % (16.0-70.0); PLATELET COUNT 175 TH/MM3 (150-450); RED BLOOD COUNT 3.11 MIL/MM3 (4.50-5.90); RED CELL DISTRIBUTION WIDTH 14.6 % (11.6-17.2); WHITE BLOOD COUNT 6.8 TH/MM3 (4.0-11.0)
[2016-11-27 18:41] LABS: BICARBONATE 30.4 MEQ/L (21.0-32.0); POTASSIUM 3.6 MEQ/L (3.5-5.1)
[2016-11-27 18:47] LABS: HEMO FLAGS AUTO DIFF
[2016-11-27 19:38] LABS: BANDS 7 % (0-6); CORRECTED NUCLEATED RBC 1 /100 WBC (0-0); METAMYELOCYTES 1 % (0-1); PLATELET ESTIMATE SMEAR NORMAL (NORMAL); PLATELET MORPHOLOGY NORMAL (NORMAL); POLYS (SEG NEUTROPHILS) 80 % (16-70); SCAN/DIFF FINAL DIFF MANUAL; WBC DIFF SAMPLE 100
[2016-11-28] VITALS (7 sets, daily range): BP systolic 104–120; BP diastolic 69–72; PULSE 81–97; RESP 16–20; TEMP 97.2–99.6; O2SAT 97–100
[2016-11-28] MEDS: HEPARIN SODIUM - SQ 10,000 UNITS/ML VIAL SQ SCH ×2 (04:15→16:33)
[2016-11-28] MEDS: DOCUSATE SODIUM 50 MG/SENNA 8.6 MG TAB PO SCH ×2 (09:00→20:50)
[2016-11-28] MEDS: SULFAMETHOXAZOLE-TRIMETHOPRIM DS 800-160 MG TAB PO SCH (10:01)
[2016-11-28] MEDS: CLARITHROMYCIN 500 MG TAB PO SCH ×2 (10:01→20:49)
[2016-11-28] MEDS: SODIUM CHLORIDE 0.9% FLUSH 10 ML FLUSH IV FLUSH SCH ×2 (10:01→20:49)
--- NOTE | 2016-11-28 10:01 | HHI.PR ---
Subjective Remarks Follow-up visit HSV-1, HIV/AIDS, Bacteremia Mycobacterium, Renal failure on HD. Patient seen and examined today. Reports he is doing well, but states he is getting weaker. He is can have his dialysis tomorrow. Denies any fevers, chills, nausea, vomiting, diarrhea. Denies chest pain, shortness of breath, dyspnea. As per nursing, no acute issues overnight. Objective Vitals Vital Signs Date Time Temp Pulse Resp B/P (MAP) Pulse Ox O2 Delivery O2 Flow Rate FiO2 11/28/16 08:00 97.2 86 16 110/69 (83) 100 11/28/16 04:00 99.4 86 18 104/72 (83) 100 11/28/16 04:00 Room Air 11/28/16 00:00 99.6 81 18 104/70 (81) 100 11/28/16 00:00 Room Air 11/27/16 20:50 Room Air 11/27/16 20:00 92 11/27/16 20:00 99.4 98 18 114/64 (81) 99 11/27/16 16:27 99.8 98 18 117/76 (90) 100 11/27/16 12:26 98.7 88 19 109/71 (84) 99 I/O 11/27/16 11/27/16 11/27/16 11/28/16 11/28/16 11/28/16 07:00 15:00 23:00 07:00 15:00 23:00 Intake Total 720 ml 600 ml 650 ml Output Total 0 ml 300 ml Balance 720 ml 600 ml 350 ml Intake Oral 720 ml 600 ml 650 ml Output Urine Total 0 ml 300 ml # Bowel Movements 1 0 Result Diagram: 11/27/16 1718 11/27/168 Imaging Last Impressions Catheter Placement X-Ray 11/14/16 0600 Signed Impressions: Service Date/Time: Monday, November 14, 2016 11:24 - CONCLUSION: Uncomplicated line placement as above. William Modi MD Tumor Localization 11/14/16 0000 Signed Impressions: Service Date/Time: Monday, November 14, 2016 11:38 - CONCLUSION: Negative scan Solitario Diaz MD Chest X-Ray 11/13/16 0000 Signed Impressions: Service Date/Time: Sunday, November 13, 2016 16:02 - CONCLUSION: No acute cardiopulmonary disease. Quincy Medellin MD Renal Ultrasound 11/05/16 0000 Signed Impressions: Service Date/Time: Saturday, November 05, 2016 19:17 - CONCLUSION: Diffusely echogenic kidneys indicating medical renal disease. Dorian Murry MD Abdomen/Pelvis CT 11/05/16 0000 Signed Impressions: Service Date/Time: Saturday, November 05, 2016 17:19 - CONCLUSION: 1. 4 mm calculus in the right renal pelvis/ureteropelvic junction with mild adjacent perinephric/periureteral stranding. No evidence of hydronephrosis. 2. 1 cm round hypodensity in the anterior right mid kidney statistically most likely to represent a cyst. 3. 3.7 cm hypodensity in the right lobe of the liver air the dome of the diaphragm. This finding is nonspecific on noncontrast CT. The most likely etiologies include hemangioma and cyst. It could be further evaluated with ultrasound nonemergent followup MRI of the abdomen. 4. Mild dilated proximal right common iliac artery. Dorian Murry MD Objective Remarks GENERAL: This is a well-nourished, well-developed patient, in no apparent distress. SKIN: Warm and dry. Dee Anal area wound healing, dry, pink discoloration. HEENT: Normocephalic. Pupils equal round and reactive. Nose without bleeding. Airway patent. NECK: Trachea midline.Supple. Right IJ Vas-Cath CARDIOVASCULAR: Regular rate and rhythm without murmurs, gallops, or rubs. RESPIRATORY: Clear to auscultation. Breath sounds equal bilaterally. No wheezes , rales, or rhonchi. GASTROINTESTINAL: Abdomen soft, non-tender, nondistended. Bowel Sounds normoactive x4. MUSCULOSKELETAL: Extremities without clubbing, cyanosis, or edema. NEUROLOGICAL: Awake and alert. Oriented to time, place, person. No focal neuro deficit. Moves all extremities. Normal speech. Procedures 11/14/16 hemodialysis catheter placement, right internal jugular A/P Problem List: (1) Renal failure ICD Code: N19 - Unspecified kidney failure Status: Acute (2) Sepsis ICD Code: A41.9 - Sepsis, unspecified organism Status: Acute (3) UTI (urinary tract infection) ICD Code: N39.0 - Urinary tract infection, site not specified (4) Chronic kidney disease, stage V ICD Code: N18.5 - Chronic kidney disease, stage 5 (5) HIV (human immunodeficiency virus infection) ICD Code: B20 - Human immunodeficiency virus [HIV] disease (6) Anemia ICD Code: D64.9 - Anemia, unspecified (7) Hypertension ICD Code: I10 - Essential (primary) hypertension (8) Medical non-compliance ICD Code: Z91.19 - Patient's noncompliance with other medical treatment and regimen Assessment and Plan 50yo male with PMHX of HIV who follows with Dr. Samuels as outpatient last seen 6 months ago who admits to being noncompliant with his HIV medications for the past 2 months and presents to [facility] ED with complaints of severe buttock pain secondary to multiple buttock and perirectal wounds for the past two months. 1. Severe sepsis secondary to UTI, pneumonia: Status post treatment with Zosyn. Patient is immunocompromised, noncompliant with HAART for the last 2 months. HSV positive. 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 - Blood mycobacterial culture growing acid fast organism. - ID signed off, will continue regimen indefinitely until AFB sensitivity identified. 2. Acute renal failure superimposed on chronic kidney disease stage V: Nephrology following, remains non-oliguric. SPEP, serology negative. Creatinine not improving, per Nephro if no improvement a renal biopsy will be done. Follow. Hemodialysis per nephrology. HD TTHS 3. HIV/AIDS: CD4 count less than 20. Patient admitted to being noncompliant with HAART meds for the last 2 months. He has been counseled. 4. Oral thrush, improving: Continue nystatin, clearing up but still present in back of throat. Continue Diflucan. Monitor. 5. Anemia: Hemoglobin stable. Received transfusion of 2 units PRBCs on 11/16/16. 6. Hypertension, tachycardia: Continue metoprolol. Heart rate controlled. 7. Buttock, perirectal wounds: HSV positive. Valtrex end date 11/22. Then chronic suppression with acyclovir. Improving. 8. Generalized weakness, prolonged hospitalization: PT eval and treat. DVT prophylaxis: Heparin. Full code Discussed with patient, nursing, Dr. Nguyen Discharge Planning Plan for DC when cleared by nephrology, may need HD set up in outpatient. Problem Qualifiers (1) Renal failure: (2) Sepsis: Pari Tafoya Nov 28, 2016 10:01
[2016-11-28] MEDS: ETHAMBUTOL HCL 400 MG TAB PO SCH (10:02)
[2016-11-28] MEDS: FLUCONAZOLE 100 MG TAB PO SCH (10:02)
[2016-11-28] MEDS: METOPROLOL TARTRATE 25 MG TAB PO SCH ×2 (10:03→20:48)
[2016-11-28] MEDS: ACYCLOVIR 200 MG CAP PO SCH ×2 (10:03→20:49)
[2016-11-28] MEDS: amLODIPine BESYLATE 5 MG TAB PO SCH (10:03)
--- NOTE | 2016-11-28 16:07 | HHI.NPPN ---
Subjective History of Present Illness 50-year-old male with past medical history of HIV disease for more than 20 years and history of renal stone who came to the hospital with complaint of back pain. The patient has back pain going on for the last 2 months off and on and he came to the emergency department yesterday with worsening pain. Additional Remarks Patient is alert, remain afebrile, feeling better, not in distress. Review of Systems General Constitutional: Fatigue Cardiovascular Cardiac: MIRZA Objective Data Data Vital Signs Date Time Temp Pulse Resp B/P (MAP) Pulse Ox O2 Delivery O2 Flow Rate FiO2 11/28/16 16:00 98.4 81 16 110/71 (84) 99 11/28/16 13:58 Room Air 11/28/16 12:00 97.7 82 16 105/70 (82) 100 11/28/16 10:01 100 11/28/16 10:00 Room Air 11/28/16 08:00 97.2 86 16 110/69 (83) 100 11/28/16 04:00 99.4 86 18 104/72 (83) 100 11/28/16 04:00 Room Air 11/28/16 00:00 99.6 81 18 104/70 (81) 100 11/28/16 00:00 Room Air 11/27/16 20:50 Room Air 11/27/16 20:00 92 11/27/16 20:00 99.4 98 18 114/64 (81) 99 11/27/16 16:27 99.8 98 18 117/76 (90) 100 -: 11/27/16 1718 11/27/16 1718 Physical Exam General Appearance: No Acute Distress, Comfortable Eyes Eye Exam: Pupils Equal Throat Throat Exam: Oral Mucosa [place] & Moist Pulmonary Resp Exam: Breath Sounds Equal, No Distress, Rhonchi, Decreased Bases Cardiology CV Exam: Regular, Normal Sinus Rhythm Gastrointestinal/Abdomen GI Exam: Soft, Non-Tender, Bowel Sounds Present Extremeties Extremities Exam: No Edema Neurologic Neuro Exam: Alert, Awake, Oriented Psychiatric Psych Exam: Appropriate Responses Assessment/Plan Assessment Summary: MIKE/Acute Renal Failure Problem List: (1) Renal failure ICD Codes: N19 - Unspecified kidney failure Status: Acute (2) Sepsis ICD Codes: A41.9 - Sepsis, unspecified organism Status: Acute (3) Open wound of scrotum ICD Codes: S31.30XA - Unspecified open wound of scrotum and testes, initial encounter Status: Acute Plan Patient has again increase in the BUN and Creatinine. Remain non oliguric. SPEP was negative. Complements normal, other serology also negative. BP is better, on Metoprolol to 50 mg BID. If renal function will not improve, will consider Renal Biopsy once infection is controlled. Fever pattern is better, ID is following. Now on Bactrim, Acyclovir, Clarithromycin and Ethambutol. No improvement in renal function. Possibly has End stage renal disease. HD again in AM. Problem Qualifiers (1) Renal failure: (2) Sepsis: Kwadwo Shah MD Nov 28, 2016 16:07
[2016-11-28] MEDS: LEVOFLOXACIN 250 MG TAB PO SCH (16:32)
[2016-11-29] VITALS: BP 118/79; PULSE 85; RESP 16; TEMP 98.6; O2SAT 100
[2016-11-29 04:00] VITALS: BP 112/70; PULSE 77; RESP 20; TEMP 98.9; O2SAT 97
[2016-11-29] MEDS: HEPARIN SODIUM - SQ 10,000 UNITS/ML VIAL SQ SCH ×2 (04:28→17:00)
[2016-11-29 08:00] VITALS: BP 117/68; PULSE 65; PULSE 73; RESP 18; TEMP 98.4; O2SAT 100
[2016-11-29] MEDS: ACYCLOVIR 200 MG CAP PO SCH ×2 (09:00→20:37)
[2016-11-29] MEDS: ETHAMBUTOL HCL 400 MG TAB PO SCH (09:00)
[2016-11-29] MEDS: METOPROLOL TARTRATE 25 MG TAB PO SCH ×2 (09:00→20:37)
[2016-11-29] MEDS: CLARITHROMYCIN 500 MG TAB PO SCH ×2 (09:00→20:37)
[2016-11-29] MEDS: amLODIPine BESYLATE 5 MG TAB PO SCH (09:00)
[2016-11-29] MEDS: FLUCONAZOLE 100 MG TAB PO SCH (09:00)
[2016-11-29] MEDS: DOCUSATE SODIUM 50 MG/SENNA 8.6 MG TAB PO SCH ×2 (09:00→20:37)
[2016-11-29] MEDS: GENTAMICIN SULFATE (DIALYSIS USE ONLY) 20 MG/2 ML VIAL IV PRN (10:25)
--- NOTE | 2016-11-29 10:25 | HHI.NPPN ---
Subjective History of Present Illness 50-year-old male with past medical history of HIV disease for more than 20 years and history of renal stone who came to the hospital with complaint of back pain. The patient has back pain going on for the last 2 months off and on and he came to the emergency department yesterday with worsening pain. Additional Remarks Patient is alert, seen during HD, no SOB. Review of Systems General Constitutional: Fatigue Cardiovascular Cardiac: MIRZA Objective Data Data Vital Signs Date Time Temp Pulse Resp B/P (MAP) Pulse Ox O2 Delivery O2 Flow Rate FiO2 11/29/16 08:40 Room Air 11/29/16 08:00 98.4 65 18 117/68 (84) 100 11/29/16 04:00 98.9 77 20 112/70 (84) 97 11/29/16 04:00 Room Air 11/29/16 00:00 Room Air 11/29/16 00:00 98.6 85 16 118/79 (92) 100 11/28/16 20:00 Room Air 11/28/16 20:00 99.5 91 20 120/70 (87) 97 11/28/16 20:00 97 11/28/16 16:00 98.4 81 16 110/71 (84) 99 11/28/16 13:58 Room Air 11/28/16 12:00 97.7 82 16 105/70 (82) 100 -: 11/27/16 1718 11/27/16 1718 Physical Exam General Appearance: No Acute Distress, Comfortable Eyes Eye Exam: Pupils Equal Throat Throat Exam: Oral Mucosa [place] & Moist Pulmonary Resp Exam: Breath Sounds Equal, No Distress, Rhonchi, Decreased Bases Cardiology CV Exam: Regular, Normal Sinus Rhythm Gastrointestinal/Abdomen GI Exam: Soft, Non-Tender, Bowel Sounds Present Extremeties Extremities Exam: No Edema Neurologic Neuro Exam: Alert, Awake, Oriented Psychiatric Psych Exam: Appropriate Responses Assessment/Plan Assessment Summary: MIKE/Acute Renal Failure Problem List: (1) Renal failure ICD Codes: N19 - Unspecified kidney failure Status: Acute (2) Sepsis ICD Codes: A41.9 - Sepsis, unspecified organism Status: Acute (3) Open wound of scrotum ICD Codes: S31.30XA - Unspecified open wound of scrotum and testes, initial encounter Status: Acute Plan Patient has again increase in the BUN and Creatinine. Remain non oliguric. SPEP was negative. Complements normal, other serology also negative. BP is better, on Metoprolol to 50 mg BID. If renal function will not improve, will consider Renal Biopsy once infection is controlled. Fever pattern is better, ID is following. Now on Bactrim, Acyclovir, Clarithromycin and Ethambutol. No improvement in renal function. Possibly has End stage renal disease. Now the Vascath has poor flow, HD stopped early and chamber clotted. Will get PermCath as fever improved. Problem Qualifiers (1) Renal failure: (2) Sepsis: Kwadwo Shah MD Nov 29, 2016 10:25
[2016-11-29 12:00] VITALS: BP 104/68; PULSE 79; RESP 18; TEMP 98.9; O2SAT 100
[2016-11-29] MEDS: SODIUM CHLORIDE 0.9% FLUSH 10 ML FLUSH IV FLUSH SCH ×2 (12:15→20:37)
[2016-11-29 13:01] VITALS: O2SAT 99
--- NOTE | 2016-11-29 13:02 | HHI.PR ---
Subjective Remarks Follow-up visit HSV-1, HIV/AIDS, Bacteremia Mycobacterium, Renal failure on HD. Patient seen and examined today sitting in bed. States he is doing well. Reports his Vas-Cath is not working and they are changing it to permacath or another Vas-Cath. Denies pain and discomfort. Denies SOB/ dyspnea. Denies chest pain, palpitations, headaches, dizziness. Denies fevers, chills, n/v/d. Objective Vitals Vital Signs Date Time Temp Pulse Resp B/P (MAP) Pulse Ox O2 Delivery O2 Flow Rate FiO2 11/29/16 12:00 98.9 79 18 104/68 (80) 100 11/29/16 08:40 Room Air 11/29/16 08:00 98.4 65 18 117/68 (84) 100 11/29/16 08:00 73 11/29/16 04:00 98.9 77 20 112/70 (84) 97 11/29/16 04:00 Room Air 11/29/16 00:00 Room Air 11/29/16 00:00 98.6 85 16 118/79 (92) 100 11/28/16 20:00 Room Air 11/28/16 20:00 99.5 91 20 120/70 (87) 97 11/28/16 20:00 97 11/28/16 16:00 98.4 81 16 110/71 (84) 99 11/28/16 13:58 Room Air I/O 11/28/16 11/28/16 11/28/16 11/29/16 11/29/16 11/29/16 07:00 15:00 23:00 07:00 15:00 23:00 Intake Total 650 ml 480 ml 360 ml Output Total 300 ml 375 ml 100 ml 830 ml Balance 350 ml 105 ml 260 ml -830 ml Intake Oral 650 ml 480 ml 360 ml Output Urine Total 300 ml 375 ml 100 ml Hemodialysis 830 ml # Bowel Movements 0 1 1 Result Diagram: 11/27/16171711/27/161717 Imaging Last Impressions Catheter Placement X-Ray 11/14/16 0600 Signed Impressions: Service Date/Time: Monday, November 14, 2016 11:24 - CONCLUSION: Uncomplicated line placement as above. William Modi MD Tumor Localization 11/14/16 0000 Signed Impressions: Service Date/Time: Monday, November 14, 2016 11:38 - CONCLUSION: Negative scan Solitario Diaz MD Chest X-Ray 11/13/16 0000 Signed Impressions: Service Date/Time: Sunday, November 13, 2016 16:02 - CONCLUSION: No acute cardiopulmonary disease. Quincy Medellin MD Renal Ultrasound 11/05/16 0000 Signed Impressions: Service Date/Time: Saturday, November 05, 2016 19:17 - CONCLUSION: Diffusely echogenic kidneys indicating medical renal disease. Dorian Murry MD Abdomen/Pelvis CT 11/05/16 0000 Signed Impressions: Service Date/Time: Saturday, November 05, 2016 17:19 - CONCLUSION: 1. 4 mm calculus in the right renal pelvis/ureteropelvic junction with mild adjacent perinephric/periureteral stranding. No evidence of hydronephrosis. 2. 1 cm round hypodensity in the anterior right mid kidney statistically most likely to represent a cyst. 3. 3.7 cm hypodensity in the right lobe of the liver air the dome of the diaphragm. This finding is nonspecific on noncontrast CT. The most likely etiologies include hemangioma and cyst. It could be further evaluated with ultrasound nonemergent followup MRI of the abdomen. 4. Mild dilated proximal right common iliac artery. Dorian Murry MD Objective Remarks GENERAL: This is a well-nourished, well-developed patient, in no apparent distress. SKIN: Warm and dry. Dee Anal area wound healing, dry, pink discoloration. HEENT: Normocephalic. Pupils equal round and reactive. Nose without bleeding. Airway patent. NECK: Trachea midline.Supple. Right IJ Vas-Cath CARDIOVASCULAR: Regular rate and rhythm without murmurs, gallops, or rubs. RESPIRATORY: Clear to auscultation. Breath sounds equal bilaterally. No wheezes , rales, or rhonchi. GASTROINTESTINAL: Abdomen soft, non-tender, nondistended. Bowel Sounds normoactive x4. MUSCULOSKELETAL: Extremities without clubbing, cyanosis, or edema. NEUROLOGICAL: Awake and alert. Oriented to time, place, person. No focal neuro deficit. Moves all extremities. Normal speech. Procedures 11/14/16 hemodialysis catheter placement, right internal jugular A/P Problem List: (1) Renal failure ICD Code: N19 - Unspecified kidney failure Status: Acute (2) Sepsis ICD Code: A41.9 - Sepsis, unspecified organism Status: Acute (3) UTI (urinary tract infection) ICD Code: N39.0 - Urinary tract infection, site not specified (4) Chronic kidney disease, stage V ICD Code: N18.5 - Chronic kidney disease, stage 5 (5) HIV (human immunodeficiency virus infection) ICD Code: B20 - Human immunodeficiency virus [HIV] disease (6) Anemia ICD Code: D64.9 - Anemia, unspecified (7) Hypertension ICD Code: I10 - Essential (primary) hypertension (8) Medical non-compliance ICD Code: Z91.19 - Patient's noncompliance with other medical treatment and regimen Assessment and Plan 50yo male with PMHX of HIV who follows with Dr. Samuels as outpatient last seen 6 months ago who admits to being noncompliant with his HIV medications for the past 2 months and presents to [facility] ED with complaints of severe buttock pain secondary to multiple buttock and perirectal wounds for the past two months. Severe sepsis secondary to UTI, pneumonia: Status post treatment with Zosyn. Patient is immunocompromised, noncompliant with HAART for the last 2 months. HSV positive. 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 - Blood mycobacterial culture growing acid fast organism. - ID signed off, will continue regimen indefinitely until AFB sensitivity identified. Acute renal failure superimposed on chronic kidney disease stage V: Nephrology following, remains non-oliguric. SPEP, serology negative. - Creatinine not improving, per Nephro if no improvement a renal biopsy will be done. Follow. - Hemodialysis per nephrology. HD TTHS - Vas-cath to be changed today to Permacath due to poor flow HIV/AIDS: CD4 count less than 20. Patient admitted to being noncompliant with HAART meds for the last 2 months. He has been counseled. Oral thrush, improving: Continue nystatin, clearing up but still present in back of throat. Continue Diflucan. Monitor. Anemia: Hemoglobin stable. Received transfusion of 2 units PRBCs on 11/16/16. Hypertension, tachycardia: Continue metoprolol. Heart rate controlled. Buttock, perirectal wounds: HSV positive. Valtrex end date 11/22. Then chronic suppression with acyclovir. Improving. Generalized weakness, prolonged hospitalization: PT eval and treat. DVT prophylaxis: Heparin. Full code Discussed with patient, nursing, Dr. Hancock Discharge Planning Plan for DC when cleared by nephrology, HD set up in outpatient. Problem Qualifiers (1) Renal failure: (2) Sepsis: Pari Tafoya Nov 29, 2016 13:02
[2016-11-29] MEDS ORDERED: MIDAZOLAM HCL 2 MG/2 ML VIAL ONE ×2 (13:50)
[2016-11-29] MEDS ORDERED: LIDOCAINE 2%/EPINEPHrine 1:100,000 20ML MDV ONE ×2 (14:09→14:10)
--- NOTE | 2016-11-29 15:57 | RADRPT ---
EXAM DATE/TIME: 11/29/2016 00:00 [place] COMPARISON: No previous studies available for comparison. INDICATIONS : Patient is in need of removal of existing temporary dialysis catheter to place permanent dialysis cat heter instead. MEDICAL HISTORY : History of ESRD, HIV, renal stones. SURGICAL HISTORY : N/A ENCOUNTER: Subsequent ACUITY: 1 week PAIN SCORE: 0/10 FLUORO TIME: IMAGE SERIES: 0 ACCESS: Right internal jugular vein PROCEDURE : 1. Temporary central venous catheter removal. The prescribed catheter was removed intact and hemostasis was achieved with direct pressure. The sit e was dressed appropriately. The patient tolerated the procedure well. CONCLUSION: Uncomplicated catheter removal. Solitario Diaz MD on November 29, 2016 at 15:55 Board Certified Radiologist. This report was verified electronically.
--- NOTE | 2016-11-29 16:37 | RADRPT ---
EXAM DATE/TIME: 11/29/2016 13:58 [facility] COMPARISON: No previous studies available for comparison. INDICATIONS : Patient is in need of placement of a Permacath for continued dialysis treatment. MEDICAL HISTORY : History of ESRD, HIV, renal stones. SURGICAL HISTORY : N/A ENCOUNTER: Initial ACUITY: 1 week PAIN SCORE: 0/10 FLUORO TIME: 0.7 minutes IMAGE SERIES: 1 SEDATION TIME: 30 minutes ACCESS: Right internal jugular vein SEDATION: 1.) 2 mg midazolam (Versed) IV 2.) 100 mcg fentanyl (Sublimaze) IV Prophylactic antibiotics were administered with appropriate pre-procedure timing. Vancomycin within 2 hours of procedure, Ancef (or alternative) within 1 hour of procedure. DEVICE: 1. 15 [place]uv[place] dual lumen 23 cm Eng II Plus catheter PROCEDURE : 1. Ultrasound-guided venipuncture. 2. PermaCath placement. 3. Conscious sedation with continuous EKG and oximetry monitoring. The risks, benefits and alternatives to the procedure were explained and verbal and written consent w as obtained. The site was prepped in sterile fashion. Full sterile technique was used, including ca p, mask, sterile gloves and gown and a large sterile sheet. Hand hygiene and 2% chlorhexidine and/or betadine/alcohol prep was utilized per protocol for cutaneous antisepsis. Sterile gel and sterile p robe cover were utilized for ultrasound guidance. The skin and subcutaneous tissues were infiltrated with local anesthetic solution. With ultrasound and fluoroscopic guidance a dermatotomy was created over the prescribed vein. A micr opuncture set was used to access the targeted vein and serial dilatation was performed to accept the prescribed length catheter. A subcutaneous tunnel was created in a retrograde fashion the catheter w as pulled through the tunnel. The catheter was flushed and assembled and locked with heparin. The c atheter was sutured in place. Conscious sedation was performed with the prescribed dosages and duration as above in the presence of an independent trained radiology nurse to assist in the monitoring of the patient. EKG and oximetry remained stable throughout the procedure. The patient tolerated the procedure well and there were n o complications. The patient was sent to post anesthesia recovery in stable condition. CONCLUSION: Uncomplicated PermaCath placement as above. Solitario Diaz MD on November 29, 2016 at 16:36 Board Certified Radiologist. This report was verified electronically.
--- NOTE | 2016-11-29 18:10 | PD.RAD ---
Post Procedure Progress Note Pre Procedure Diagnosis: (1) Renal failure Post Procedure Diagnosis: (1) Renal failure Procedure Date: Nov 29, 2016 Supervising Radiologist: Solitario Diaz Proceduralist/Assist: RT Jose(R) Anesthesia: Local, Conscious Sedation Plan of Activity Patient to Unit: ROPU Patient Condition: Good See PACS Report for procedural detail/treatment Central Venous Access Device Procedure 1 Right Internal Jugular Hemodialysis Catheter Tunneled Placement dual lumen [place]ian: 15 Additional Detail: 23cm Velasquez II Solitario Diaz MD Nov 29, 2016 18:10
[2016-11-29] MEDS ORDERED: HEPARIN SODIUM - IV 2,000 UNITS/2 ML VIAL IV FLUSH PRN (18:15)
[2016-11-29] MEDS ORDERED: SODIUM CHLORIDE 0.9% FLUSH 10 ML FLUSH IVF PRN (18:15)
[2016-11-29] MEDS: LEVOFLOXACIN 250 MG TAB PO SCH (19:00)
[2016-11-29 20:00] VITALS: BP 131/82; PULSE 80; PULSE 88; RESP 16; TEMP 98.6; O2SAT 100
[2016-11-30] VITALS (7 sets, daily range): BP systolic 99–123; BP diastolic 61–77; PULSE 80–92; RESP 14–18; TEMP 98.7–100.9; O2SAT 98–100
[2016-11-30] MEDS: HEPARIN SODIUM - SQ 10,000 UNITS/ML VIAL SQ SCH ×2 (04:07→16:38)
[2016-11-30] MEDS: DOCUSATE SODIUM 50 MG/SENNA 8.6 MG TAB PO SCH ×2 (08:44→20:43)
[2016-11-30] MEDS: CLARITHROMYCIN 500 MG TAB PO SCH ×2 (08:44→20:43)
[2016-11-30] MEDS: ETHAMBUTOL HCL 400 MG TAB PO SCH (08:44)
[2016-11-30] MEDS: FLUCONAZOLE 100 MG TAB PO SCH (08:44)
[2016-11-30] MEDS: SULFAMETHOXAZOLE-TRIMETHOPRIM DS 800-160 MG TAB PO SCH (08:44)
[2016-11-30] MEDS: METOPROLOL TARTRATE 25 MG TAB PO SCH ×2 (08:44→20:42)
[2016-11-30] MEDS: amLODIPine BESYLATE 5 MG TAB PO SCH (08:45)
[2016-11-30] MEDS: SODIUM CHLORIDE 0.9% FLUSH 10 ML FLUSH IV FLUSH SCH ×2 (08:45→20:43)
[2016-11-30] MEDS: ACYCLOVIR 200 MG CAP PO SCH ×2 (08:45→20:43)
--- NOTE | 2016-11-30 09:21 | HHI.PR ---
Subjective Remarks Follow-up visit HSV-1, HIV/AIDS, Bacteremia Mycobacterium, Renal failure on HD. Patient seen and examined today lying in bed. States he is doing well. Patient's vascular access has been changed to permacath. States if he could go home today or tomorrow he would really excited about it. Denies pain and discomfort. Denies SOB/ dyspnea. Denies chest pain, palpitations, headaches, dizziness. Denies fevers, chills, n/v/d. Objective Vitals Vital Signs Date Time Temp Pulse Resp B/P (MAP) Pulse Ox O2 Delivery O2 Flow Rate FiO2 11/30/16 08:00 99.2 87 16 123/77 (92) 99 Automatic Cuff 11/30/16 04:00 100.9 92 14 105/63 (77) 99 11/30/16 04:00 Room Air 11/30/16 00:00 Room Air 11/30/16 00:00 99.6 87 14 99/62 (74) 98 11/29/16 20:00 Room Air 11/29/16 20:00 98.6 88 16 131/82 (98) 100 11/29/16 20:00 80 11/29/16 13:01 99 11/29/16 12:00 98.9 79 18 104/68 (80) 100 I/O 11/29/16 11/29/16 11/29/16 11/30/16 11/30/16 11/30/16 07:00 15:00 23:00 07:00 15:00 23:00 Intake Total 360 ml 0 ml 800 ml Output Total 100 ml 830 ml 1000 ml 150 ml Balance 260 ml -830 ml -1000 ml 650 ml Intake Oral 360 ml 0 ml 800 ml Output Urine Total 100 ml 400 ml 150 ml Hemodialysis 830 ml 600 ml # Bowel Movements 1 1 Result Diagram: 11/27/16 1718 11/27/168 Imaging Last Impressions Central Venous Line 11/29/16 0000 Signed Impressions: Service Date/Time: Tuesday, November 29, 2016 00:00 - CONCLUSION: Uncomplicated catheter removal. Solitario Diaz MD Catheter Placement X-Ray 11/29/16 0000 Signed Impressions: Service Date/Time: Tuesday, November 29, 2016 13:58 - CONCLUSION: Uncomplicated PermaCath placement as above. Solitario Diaz MD Tumor Localization 11/14/16 0000 Signed Impressions: Service Date/Time: Monday, November 14, 2016 11:38 - CONCLUSION: Negative scan Solitario Diaz MD Chest X-Ray 11/13/16 0000 Signed Impressions: Service Date/Time: Sunday, November 13, 2016 16:02 - CONCLUSION: No acute cardiopulmonary disease. Quincy Medellin MD Renal Ultrasound 11/05/16 0000 Signed Impressions: Service Date/Time: Saturday, November 05, 2016 19:17 - CONCLUSION: Diffusely echogenic kidneys indicating medical renal disease. Dorian Murry MD Abdomen/Pelvis CT 11/05/16 0000 Signed Impressions: Service Date/Time: Saturday, November 05, 2016 17:19 - CONCLUSION: 1. 4 mm calculus in the right renal pelvis/ureteropelvic junction with mild adjacent perinephric/periureteral stranding. No evidence of hydronephrosis. 2. 1 cm round hypodensity in the anterior right mid kidney statistically most likely to represent a cyst. 3. 3.7 cm hypodensity in the right lobe of the liver air the dome of the diaphragm. This finding is nonspecific on noncontrast CT. The most likely etiologies include hemangioma and cyst. It could be further evaluated with ultrasound nonemergent followup MRI of the abdomen. 4. Mild dilated proximal right common iliac artery. Dorian Murry MD Objective Remarks GENERAL: This is a well-nourished, well-developed patient, in no apparent distress. SKIN: Warm and dry. Dee Anal area wound healing, dry, pink discoloration. HEENT: Normocephalic. Pupils equal round and reactive. Nose without bleeding. Airway patent. NECK: Trachea midline.Supple. Right IJ Vas-Cath CARDIOVASCULAR: Regular rate and rhythm without murmurs, gallops, or rubs. RESPIRATORY: Clear to auscultation. Breath sounds equal bilaterally. No wheezes , rales, or rhonchi. GASTROINTESTINAL: Abdomen soft, non-tender, nondistended. Bowel Sounds normoactive x4. MUSCULOSKELETAL: Extremities without clubbing, cyanosis, or edema. NEUROLOGICAL: Awake and alert. Oriented to time, place, person. No focal neuro deficit. Moves all extremities. Normal speech. Procedures 11/14/16 hemodialysis catheter placement, right internal jugular A/P Problem List: (1) Renal failure ICD Code: N19 - Unspecified kidney failure Status: Acute (2) Sepsis ICD Code: A41.9 - Sepsis, unspecified organism Status: Acute (3) UTI (urinary tract infection) ICD Code: N39.0 - Urinary tract infection, site not specified (4) Chronic kidney disease, stage V ICD Code: N18.5 - Chronic kidney disease, stage 5 (5) HIV (human immunodeficiency virus infection) ICD Code: B20 - Human immunodeficiency virus [HIV] disease (6) Anemia ICD Code: D64.9 - Anemia, unspecified (7) Hypertension ICD Code: I10 - Essential (primary) hypertension (8) Medical non-compliance ICD Code: Z91.19 - Patient's noncompliance with other medical treatment and regimen Assessment and Plan 50yo male with PMHX of HIV who follows with Dr. Samuels as outpatient last seen 6 months ago who admits to being noncompliant with his HIV medications for the past 2 months and presents to [facility] ED with complaints of severe buttock pain secondary to multiple buttock and perirectal wounds for the past two months. Severe sepsis secondary to UTI, pneumonia: Status post treatment with Zosyn. Patient is immunocompromised, noncompliant with HAART for the last 2 months. HSV positive. 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 - Blood mycobacterial culture growing acid fast organism. - ID signed off, will continue regimen indefinitely until AFB sensitivity identified. Acute renal failure superimposed on chronic kidney disease stage V: Nephrology following, remains non-oliguric. SPEP, serology negative. - Creatinine not improving, per Nephro if no improvement a renal biopsy will be done. - Hemodialysis per nephrology. HD TTHS - Vas-cath to be changed to Permacath due to poor flow - Spoke with Dr. Shah, plan to do renal biopsy tomorrow. HIV/AIDS: CD4 count less than 20. Patient admitted to being noncompliant with HAART meds for the last 2 months. - He has been counseled. Verbalized understanding Oral thrush, improving: Continue nystatin, clearing up but still present in back of throat. - Continue Diflucan. Monitor. Anemia: Hemoglobin stable. - Received transfusion of 2 units PRBCs on 11/16/16. Hypertension, tachycardia: Continue metoprolol. Heart rate controlled. Buttock, perirectal wounds: HSV positive. Valtrex end date 11/22. - Then chronic suppression with acyclovir. Improving. Generalized weakness, prolonged hospitalization: PT eval and treat. DVT prophylaxis: Heparin. Full code Discussed with patient, nursing, Dr. Hancock Discharge Planning Not yet ready for discharge today. Plan for DC when cleared by nephrology, HD set up in outpatient. Problem Qualifiers (1) Renal failure: (2) Sepsis: Pari Tafoya Nov 30, 2016 09:21
[2016-11-30] MEDS: LEVOFLOXACIN 250 MG TAB PO SCH (16:37)
--- NOTE | 2016-11-30 16:52 | HHI.NPPN ---
Subjective History of Present Illness 50-year-old male with past medical history of HIV disease for more than 20 years and history of renal stone who came to the hospital with complaint of back pain. The patient has back pain going on for the last 2 months off and on and he came to the emergency department yesterday with worsening pain. Additional Remarks Patient is alert, feeling better, no SOB, no vomiting. Review of Systems General Constitutional: Fatigue Cardiovascular Cardiac: MIRZA Objective Data Data Vital Signs Date Time Temp Pulse Resp B/P (MAP) Pulse Ox O2 Delivery O2 Flow Rate FiO2 11/30/16 16:00 99.5 82 16 100/62 (75) 100 11/30/16 15:44 83 11/30/16 12:00 99.0 87 16 105/61 (76) 99 11/30/16 08:50 Room Air 11/30/16 08:00 99.2 87 16 123/77 (92) 99 Automatic Cuff 11/30/16 04:00 100.9 92 14 105/63 (77) 99 11/30/16 04:00 Room Air 11/30/16 00:00 Room Air 11/30/16 00:00 99.6 87 14 99/62 (74) 98 11/29/16 20:00 Room Air 11/29/16 20:00 98.6 88 16 131/82 (98) 100 11/29/16 20:00 80 -: 11/27/16 1718 11/27/16 1718 Physical Exam General Appearance: No Acute Distress, Comfortable Eyes Eye Exam: Pupils Equal Throat Throat Exam: Oral Mucosa [place] & Moist Pulmonary Resp Exam: Breath Sounds Equal, No Distress, Rhonchi, Decreased Bases Cardiology CV Exam: Regular, Normal Sinus Rhythm Gastrointestinal/Abdomen GI Exam: Soft, Non-Tender, Bowel Sounds Present Extremeties Extremities Exam: No Edema Neurologic Neuro Exam: Alert, Awake, Oriented Psychiatric Psych Exam: Appropriate Responses Assessment/Plan Assessment Summary: MIKE/Acute Renal Failure Problem List: (1) Renal failure ICD Codes: N19 - Unspecified kidney failure Status: Acute (2) Sepsis ICD Codes: A41.9 - Sepsis, unspecified organism Status: Acute (3) Open wound of scrotum ICD Codes: S31.30XA - Unspecified open wound of scrotum and testes, initial encounter Status: Acute Plan Patient has again increase in the BUN and Creatinine. Remain non oliguric. SPEP was negative. Complements normal, other serology also negative. BP is better, on Metoprolol to 50 mg BID. If renal function will not improve, will consider Renal Biopsy once infection is controlled. Fever pattern is better, ID is following. Now on Bactrim, Acyclovir, Clarithromycin and Ethambutol. No improvement in renal function. Possibly has End stage renal disease. Got PermCath. Will get Kidney Biopsy in AM. Then prepare for HD after the Biopsy result. Problem Qualifiers (1) Renal failure: (2) Sepsis: Kwadwo Shah MD Nov 30, 2016 16:52
[2016-11-30 18:41] LABS: HEMATOCRIT 25.6 % (39.0-51.0); MEAN CELL VOLUME 89.4 FL (80.0-100.0); MEAN CORPUSCULAR HEMOGLOBIN 30.2 PG (27.0-34.0); MEAN CORPUSCULAR HGB CONC 33.8 % (32.0-36.0); PLATELET COUNT 123 TH/MM3 (150-450); RED BLOOD COUNT 2.87 MIL/MM3 (4.50-5.90); RED CELL DISTRIBUTION WIDTH 14.7 % (11.6-17.2); WHITE BLOOD COUNT 5.8 TH/MM3 (4.0-11.0)
[2016-11-30 18:44] LABS: HEMO FLAGS AUTO DIFF
[2016-11-30 19:00] LABS: APTT (PATIENT) 36.2 SEC (24.3-30.1); PROTHROMBIN TIME - PATIENT 11.1 SEC (9.8-11.6)
[2016-11-30 19:14] LABS: BANDS 8 % (0-6); METAMYELOCYTES 2 % (0-1); NEUTROPHIL # MANUAL DIFF 5.5 TH/MM3 (1.8-7.7); POLYS (SEG NEUTROPHILS) 84 % (16-70); SCAN/DIFF FINAL DIFF MANUAL; WBC DIFF SAMPLE 100
[2016-12-01] VITALS (9 sets, daily range): BP systolic 96–114; BP diastolic 56–75; PULSE 78–99; RESP 16–18; TEMP 98.2–99.9; O2SAT 92–100
[2016-12-01] MEDS: HEPARIN SODIUM - SQ 10,000 UNITS/ML VIAL SQ SCH ×2 (04:22→16:29)
--- NOTE | 2016-12-01 12:23 | HHI.NPPN ---
Subjective History of Present Illness 50-year-old male with past medical history of HIV disease for more than 20 years and history of renal stone who came to the hospital with complaint of back pain. The patient has back pain going on for the last 2 months off and on and he came to the emergency department yesterday with worsening pain. Additional Remarks Patient is alert, has low grade fever, now afebrile. Review of Systems General Constitutional: Fatigue Cardiovascular Cardiac: MIRZA Objective Data Data Vital Signs Date Time Temp Pulse Resp B/P (MAP) Pulse Ox O2 Delivery O2 Flow Rate FiO2 12/01/16 08:46 80 12/01/16 08:46 Room Air 12/01/16 08:02 98.5 83 17 106/68 (81) 100 12/01/16 04:00 98.5 82 16 114/75 (88) 96 12/01/16 00:10 Room Air 12/01/16 00:00 98.6 78 18 114/71 (85) 98 11/30/16 20:00 83 11/30/16 20:00 Room Air 11/30/16 20:00 98.7 80 18 102/61 (75) 99 11/30/16 16:00 99.5 82 16 100/62 (75) 100 11/30/16 15:44 83 -: 11/30/16 1735 11/27/16 1718 Physical Exam General Appearance: No Acute Distress, Comfortable Eyes Eye Exam: Pupils Equal Throat Throat Exam: Oral Mucosa [place] & Moist Pulmonary Resp Exam: Breath Sounds Equal, No Distress, Rhonchi, Decreased Bases Cardiology CV Exam: Regular, Normal Sinus Rhythm Gastrointestinal/Abdomen GI Exam: Soft, Non-Tender, Bowel Sounds Present Extremeties Extremities Exam: No Edema Neurologic Neuro Exam: Alert, Awake, Oriented Psychiatric Psych Exam: Appropriate Responses Assessment/Plan Assessment Summary: MIKE/Acute Renal Failure Problem List: (1) Renal failure ICD Codes: N19 - Unspecified kidney failure Status: Acute (2) Sepsis ICD Codes: A41.9 - Sepsis, unspecified organism Status: Acute (3) Open wound of scrotum ICD Codes: S31.30XA - Unspecified open wound of scrotum and testes, initial encounter Status: Acute Plan Patient has again increase in the BUN and Creatinine. Remain non oliguric. SPEP was negative. Complements normal, other serology also negative. BP is better, on Metoprolol to 50 mg BID. If renal function will not improve, will consider Renal Biopsy once infection is controlled. Fever pattern is better, ID is following. Now on Bactrim, Acyclovir, Clarithromycin and Ethambutol. No improvement in renal function. Possibly has End stage renal disease. Got PermCath. Kidney Biopsy done, follow the results. Problem Qualifiers (1) Renal failure: (2) Sepsis: Kwadwo Shah MD Dec 01, 2016 12:23
[2016-12-01] MEDS ORDERED: MIDAZOLAM HCL 2 MG/2 ML VIAL ONE (13:16)
[2016-12-01] MEDS ORDERED: LIDOCAINE HCL 1% 20 ML VIAL ONE (13:45)
[2016-12-01] MEDS ORDERED: SODIUM BICARBONATE 8.4% INJ 50 ML ONE (13:45)
--- NOTE | 2016-12-01 15:05 | HHI.PR ---
Subjective Remarks Follow-up visit HSV-1, HIV/AIDS, Bacteremia Mycobacterium, Renal failure on HD. Patient seen and examined today in HD. States he's doing okay. Plan for renal biopsy today. Denies pain and discomfort. Denies SOB/ dyspnea. Denies chest pain, palpitations, headaches, dizziness. Denies fevers, chills, n/v/d. Objective Vitals Vital Signs Date Time Temp Pulse Resp B/P (MAP) Pulse Ox O2 Delivery O2 Flow Rate FiO2 12/01/16 08:46 80 12/01/16 08:46 Room Air 12/01/16 08:02 98.5 83 17 106/68 (81) 100 12/01/16 04:00 98.5 82 16 114/75 (88) 96 12/01/16 00:10 Room Air 12/01/16 00:00 98.6 78 18 114/71 (85) 98 11/30/16 20:00 83 11/30/16 20:00 Room Air 11/30/16 20:00 98.7 80 18 102/61 (75) 99 11/30/16 16:00 99.5 82 16 100/62 (75) 100 11/30/16 15:44 83 I/O 11/30/16 11/30/16 11/30/16 12/01/16 12/01/16 12/01/16 06:59 14:59 22:59 06:59 14:59 22:59 Intake Total 800 ml 1920 ml 240 ml Output Total 150 ml 375 ml 300 ml Balance 650 ml 1545 ml -60 ml Intake Oral 800 ml 1920 ml 240 ml Output Urine Total 150 ml 375 ml 300 ml # Bowel Movements 0 0 Result Diagram: 11/30/16 1735 11/27/16 1718 Imaging Last Impressions Central Venous Line 11/29/16 0000 Signed Impressions: Service Date/Time: Tuesday, November 29, 2016 00:00 - CONCLUSION: Uncomplicated catheter removal. Solitario Diaz MD Catheter Placement X-Ray 11/29/16 0000 Signed Impressions: Service Date/Time: Tuesday, November 29, 2016 13:58 - CONCLUSION: Uncomplicated PermaCath placement as above. Solitario Diaz MD Tumor Localization 11/14/16 0000 Signed Impressions: Service Date/Time: Monday, November 14, 2016 11:38 - CONCLUSION: Negative scan Solitario Diaz MD Chest X-Ray 11/13/16 0000 Signed Impressions: Service Date/Time: Sunday, November 13, 2016 16:02 - CONCLUSION: No acute cardiopulmonary disease. Quincy Medellin MD Renal Ultrasound 11/05/16 0000 Signed Impressions: Service Date/Time: Saturday, November 05, 2016 19:17 - CONCLUSION: Diffusely echogenic kidneys indicating medical renal disease. Dorian Murry MD Abdomen/Pelvis CT 11/05/16 0000 Signed Impressions: Service Date/Time: Saturday, November 05, 2016 17:19 - CONCLUSION: 1. 4 mm calculus in the right renal pelvis/ureteropelvic junction with mild adjacent perinephric/periureteral stranding. No evidence of hydronephrosis. 2. 1 cm round hypodensity in the anterior right mid kidney statistically most likely to represent a cyst. 3. 3.7 cm hypodensity in the right lobe of the liver air the dome of the diaphragm. This finding is nonspecific on noncontrast CT. The most likely etiologies include hemangioma and cyst. It could be further evaluated with ultrasound nonemergent followup MRI of the abdomen. 4. Mild dilated proximal right common iliac artery. Dorian Murry MD Objective Remarks GENERAL: This is a well-nourished, well-developed patient, in no apparent distress. SKIN: Warm and dry. Dee Anal area wound healing, dry, pink discoloration. HEENT: Normocephalic. Pupils equal round and reactive. Nose without bleeding. Airway patent. NECK: Trachea midline.Supple. Right SC Perma-Cath CARDIOVASCULAR: Regular rate and rhythm without murmurs, gallops, or rubs. RESPIRATORY: Clear to auscultation. Breath sounds equal bilaterally. No wheezes , rales, or rhonchi. GASTROINTESTINAL: Abdomen soft, non-tender, nondistended. Bowel Sounds normoactive x4. MUSCULOSKELETAL: Extremities without clubbing, cyanosis, or edema. NEUROLOGICAL: Awake and alert. Oriented to time, place, person. No focal neuro deficit. Moves all extremities. Normal speech. Procedures 11/14/16 hemodialysis catheter placement, right internal jugular A/P Problem List: (1) Renal failure ICD Code: N19 - Unspecified kidney failure Status: Acute (2) Sepsis ICD Code: A41.9 - Sepsis, unspecified organism Status: Acute (3) UTI (urinary tract infection) ICD Code: N39.0 - Urinary tract infection, site not specified (4) Chronic kidney disease, stage V ICD Code: N18.5 - Chronic kidney disease, stage 5 (5) HIV (human immunodeficiency virus infection) ICD Code: B20 - Human immunodeficiency virus [HIV] disease (6) Anemia ICD Code: D64.9 - Anemia, unspecified (7) Hypertension ICD Code: I10 - Essential (primary) hypertension (8) Medical non-compliance ICD Code: Z91.19 - Patient's noncompliance with other medical treatment and regimen Assessment and Plan 50yo male with PMHX of HIV who follows with Dr. Samuels as outpatient last seen 6 months ago who admits to being noncompliant with his HIV medications for the past 2 months and presents to [facility] ED with complaints of severe buttock pain secondary to multiple buttock and perirectal wounds for the past two months. Severe sepsis secondary to UTI, pneumonia: Status post treatment with Zosyn. Patient is immunocompromised, noncompliant with HAART for the last 2 months. HSV positive. 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 - Blood mycobacterial culture growing acid fast organism. - ID signed off, will continue regimen indefinitely until AFB sensitivity identified. Acute renal failure superimposed on chronic kidney disease stage V: Nephrology following, remains non-oliguric. SPEP, serology negative. - Creatinine not improving, per Nephro if no improvement a renal biopsy will be done. - Hemodialysis per nephrology. HD TTHS - Vas-cath to be changed to Permacath due to poor flow - Dr. Shah, plan to do renal biopsy. HIV/AIDS: CD4 count less than 20. Patient admitted to being noncompliant with HAART meds for the last 2 months. - He has been counseled. Verbalized understanding Oral thrush, improving: Continue nystatin, clearing up but still present in back of throat. - Continue Diflucan. Monitor. Anemia: - Received transfusion of 2 units PRBCs on 11/16/16 - Stable Hypertension, tachycardia: Continue metoprolol. Heart rate controlled. Buttock, perirectal wounds: HSV positive. Valtrex end date 11/22. - Then chronic suppression with acyclovir. Improving. Generalized weakness, prolonged hospitalization: PT eval and treat. DVT prophylaxis: Heparin. Full code Discussed with patient, nursing, Dr. Hancock Discharge Planning Plan for DC when cleared by nephrology, HD set up in outpatient. Problem Qualifiers (1) Renal failure: (2) Sepsis: Pari Tafoya Dec 01, 2016 15:05
[2016-12-01 16:04] LABS: HEMATOCRIT 25.3 % (39.0-51.0); MEAN CELL VOLUME 89.3 FL (80.0-100.0); MEAN CORPUSCULAR HEMOGLOBIN 29.8 PG (27.0-34.0); MEAN CORPUSCULAR HGB CONC 33.4 % (32.0-36.0); PLATELET COUNT 112 TH/MM3 (150-450); RED BLOOD COUNT 2.84 MIL/MM3 (4.50-5.90); RED CELL DISTRIBUTION WIDTH 14.6 % (11.6-17.2); WHITE BLOOD COUNT 6.3 TH/MM3 (4.0-11.0)
[2016-12-01 16:18] LABS: HEMO FLAGS AUTO DIFF
--- NOTE | 2016-12-01 16:27 | RADRPT ---
EXAM DATE/TIME: 12/01/2016 14:17 [facility] COMPARISON: No previous studies available for comparison. INDICATIONS : Evaluate renal function. SEDATION TIME: 20 minutes BIOPSY SITE: Right kidney MEDICATION(S): 1.) 2 mg midazolam (Versed) IV 2.) 100 mcg fentanyl (Sublimaze) IV DEVICE(S): 1.) 18 gauge Tem[place] core biopsy needle 9cm MEDICAL HISTORY : HIV. Renal failure, acute. SURGICAL HISTORY : None. ENCOUNTER: Initial ACUITY: 1 day PAIN SCORE: 0/10 LOCATION: Right flank A total of two core specimen(s) were obtained and sent to the laboratory for pathologic evaluation. PROCEDURE: 1. CT guided renal biopsy. 2. Conscious sedation with continuous EKG and oximetry monitoring. Prior to the procedure informed consent was obtained. Any appropriate prior imaging studies were rev iewed. Using automated exposure control and adjustment of the mA and/or kV according to patient size, radiat ion dose was kept as low as reasonably achievable to obtain optimal diagnostic quality images. DICOM format image data is available electronically for review and comparison. The site was prepped in a sterile fashion. Full sterile technique was used, including cap, mask, virgie rile gloves and gown and a large sterile sheet. Hand hygiene and 2% chlorhexidine and/or betadine/al cohol prep was utilized per protocol for cutaneous antisepsis. The skin and subcutaneous tissues wer e infiltrated with local anesthetic solution. With CT guidance the previously identified target was localized. Biopsy was performed using the presc ribed needle as above. Adequate hemostasis was obtained with compression at the puncture site. Follow-up CT scan reveals no hemorrhage. The patient tolerated the procedure well and there were no complications. The patient was returned to the Radiology Outpatient Unit in stable condition. CONCLUSION: Uncomplicated CT guided biopsy. Alexis Adhikari MD on December 01, 2016 at 16:25 Board Certified Radiologist. This report was verified electronically.
[2016-12-01] MEDS: ACYCLOVIR 200 MG CAP PO SCH ×2 (16:28→20:20)
[2016-12-01] MEDS: CLARITHROMYCIN 500 MG TAB PO SCH ×2 (16:28→20:20)
[2016-12-01] MEDS: DOCUSATE SODIUM 50 MG/SENNA 8.6 MG TAB PO SCH ×2 (16:29→20:20)
[2016-12-01] MEDS: LEVOFLOXACIN 250 MG TAB PO SCH (16:29)
[2016-12-01] MEDS: FLUCONAZOLE 100 MG TAB PO SCH (16:29)
[2016-12-01] MEDS: ETHAMBUTOL HCL 400 MG TAB PO SCH (16:29)
[2016-12-01] MEDS: SODIUM CHLORIDE 0.9% FLUSH 10 ML FLUSH IV FLUSH SCH ×2 (16:30→20:20)
[2016-12-01] MEDS: amLODIPine BESYLATE 5 MG TAB PO SCH (16:31)
[2016-12-01] MEDS: METOPROLOL TARTRATE 25 MG TAB PO SCH ×2 (16:31→20:20)
[2016-12-01 17:04] LABS: BANDS 7 % (0-6); METAMYELOCYTES 1 % (0-1); NEUTROPHIL # MANUAL DIFF 5.4 TH/MM3 (1.8-7.7); POLYS (SEG NEUTROPHILS) 77 % (16-70); PROMYELOCYTES 1 % (0-0); WBC DIFF SAMPLE 100
[2016-12-01 17:05] LABS: KERATOCYTES OCC (NORMAL); OVALOCYTES 1+ (NORMAL); PLATELET ESTIMATE SMEAR LOW (NORMAL); PLATELET MORPHOLOGY NORMAL (NORMAL); SCAN/DIFF FINAL DIFF MANUAL
[2016-12-02] VITALS (13 sets, daily range): BP systolic 72–96; BP diastolic 40–60; PULSE 71–106; RESP 16–20; TEMP 97.7–100.4; O2SAT 97–100
[2016-12-02] MEDS: HEPARIN SODIUM - SQ 10,000 UNITS/ML VIAL SQ SCH ×2 (04:00→17:00)
[2016-12-02] MEDS: ACETAMINOPHEN 325 MG TAB PO PRN (04:02)
[2016-12-02] MEDS: ACYCLOVIR 200 MG CAP PO SCH ×2 (08:52→21:11)
[2016-12-02] MEDS: SULFAMETHOXAZOLE-TRIMETHOPRIM DS 800-160 MG TAB PO SCH (08:53)
[2016-12-02] MEDS: METOPROLOL TARTRATE 25 MG TAB PO SCH (08:53)
[2016-12-02] MEDS: amLODIPine BESYLATE 5 MG TAB PO SCH (08:53)
[2016-12-02] MEDS: FLUCONAZOLE 100 MG TAB PO SCH (08:53)
[2016-12-02] MEDS: CLARITHROMYCIN 500 MG TAB PO SCH ×2 (08:53→21:11)
[2016-12-02] MEDS: SODIUM CHLORIDE 0.9% FLUSH 10 ML FLUSH IV FLUSH SCH ×2 (08:56→21:11)
[2016-12-02] MEDS: DOCUSATE SODIUM 50 MG/SENNA 8.6 MG TAB PO SCH ×2 (08:56→21:11)
[2016-12-02] MEDS: ETHAMBUTOL HCL 400 MG TAB PO SCH (09:00)
--- NOTE | 2016-12-02 09:37 | HHI.PR ---
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 Patient seen and examined today. s/p renal bx yesterday. Patient reports he feels fine. States he is having intermittent watery diarrhea every few days. Last episode was yesterday x 1. Nonbloody. Denies any fever or chills. Denies any N/V or abdominal pain. Reports good appetite. Denies any chest pain or shortness of breath. Objective Vitals Vital Signs Date Time Temp Pulse Resp B/P (MAP) Pulse Ox O2 Delivery O2 Flow Rate FiO2 12/02/16 06:00 98.9 92/60 (71) 12/02/16 04:00 100.4 101 20 89/50 (63) 100 12/02/16 00:00 98.9 103 16 94/56 (69) 97 12/01/16 20:30 94 12/01/16 20:30 Room Air 12/01/16 20:00 99.2 92 18 99/60 (73) 98 12/01/16 16:45 98.2 99 18 96/56 (69) 100 12/01/16 15:43 93 18 106/65 (79) 96 12/01/16 15:13 99.9 98 18 98/56 (70) 92 I/O 12/01/16 12/01/16 12/01/16 12/02/16 12/02/16 12/02/16 06:59 14:59 22:59 06:59 14:59 22:59 Intake Total 240 ml 0 ml 220 ml 50 ml Output Total 300 ml 100 ml Balance -60 ml -100 ml 220 ml 50 ml Intake Oral 240 ml 0 ml 220 ml IV Total 50 ml Output Urine Total 300 ml 100 ml # Voids 2 # Bowel Movements 0 0 2 Result Diagram: 12/01/16 1530 Imaging Last Impressions Renal Biopsy CT 12/01/16 0600 Signed Impressions: Service Date/Time: November 14:17 - CONCLUSION: Uncomplicated CT guided biopsy. Alexis Adhikari MD Central Venous Line 11/29/16 0000 Signed Impressions: Service Date/Time: Tuesday, November 29, 2016 00:00 - CONCLUSION: Uncomplicated catheter removal. Solitario Diaz MD Catheter Placement X-Ray 11/29/16 0000 Signed Impressions: Service Date/Time: Tuesday, November 29, 2016 13:58 - CONCLUSION: Uncomplicated PermaCath placement as above. Solitario Diaz MD Tumor Localization 11/14/16 0000 Signed Impressions: Service Date/Time: Monday, November 14, 2016 11:38 - CONCLUSION: Negative scan Solitario Diaz MD Chest X-Ray 11/13/16 0000 Signed Impressions: Service Date/Time: Sunday, November 13, 2016 16:02 - CONCLUSION: No acute cardiopulmonary disease. Quincy Medellin MD Renal Ultrasound 11/05/16 0000 Signed Impressions: Service Date/Time: Saturday, November 05, 2016 19:17 - CONCLUSION: Diffusely echogenic kidneys indicating medical renal disease. Dorian Murry MD Abdomen/Pelvis CT 11/05/16 0000 Signed Impressions: Service Date/Time: Saturday, November 05, 2016 17:19 - CONCLUSION: 1. 4 mm calculus in the right renal pelvis/ureteropelvic junction with mild adjacent perinephric/periureteral stranding. No evidence of hydronephrosis. 2. 1 cm round hypodensity in the anterior right mid kidney statistically most likely to represent a cyst. 3. 3.7 cm hypodensity in the right lobe of the liver air the dome of the diaphragm. This finding is nonspecific on noncontrast CT. The most likely etiologies include hemangioma and cyst. It could be further evaluated with ultrasound nonemergent followup MRI of the abdomen. 4. Mild dilated proximal right common iliac artery. Dorian Murry MD Objective Remarks GENERAL: This is a well-nourished, well-developed patient, in no apparent distress. Lying in hospital bed. Awake and alert. Appears comfortable. SKIN: Warm and dry. HEENT: Normocephalic. EOMI. Nose without bleeding. Airway patent. NECK: Trachea midline. Supple. Right SC Perma-Cath CARDIOVASCULAR: Regular rate and rhythm without murmurs, gallops, or rubs. RESPIRATORY: Clear to auscultation. Breath sounds equal bilaterally. No wheezes , rales, or rhonchi. GASTROINTESTINAL: Abdomen soft, non-tender, nondistended. Bowel Sounds normoactive x4. MUSCULOSKELETAL: Extremities without clubbing, cyanosis, or edema. NEUROLOGICAL: Awake and alert. Oriented to time, place, person. No focal neuro deficit. Moves all extremities spontaneously. Normal speech. Procedures 11/14/16 hemodialysis catheter placement, right internal jugular Medications and IVs Current Medications Medications (Trade) Dose Ordered Sig/Nyla Route Start Time Stop Time Status Last Admin (NS Flush) 2 ml UNSCH PRN IV FLUSH 11/05/16 16:15 (NS Flush) 2 ml BID IV FLUSH 11/05/16 21:00 12/02/16 08:56 (Tylenol) 650 mg Q4H PRN PO 11/05/16 16:15 12/02/16 04:02 (Zofran Inj) 4 mg Q6H PRN IVP 11/05/16 16:15 11/21/16 20:58 (Heparin Inj) 5,000 units Q12H SQ 11/05/16 17:00 11/28/16 16:33 (Narcan Inj) 0.4 mg UNSCH PRN IV 11/05/16 16:15 (Dee-Colace) 1 tab BID PO 11/05/16 21:00 11/30/16 08:44 (Milk Of Magnesia Liq) 30 ml Q12H PRN PO 11/05/16 16:15 (Senokot) 17.2 mg Q12H PRN PO 11/05/16 16:15 (Dulcolax Supp) 10 mg DAILY PRN RECTAL 11/05/16 16:15 (Lactulose Liq) 30 ml DAILY PRN PO 11/05/16 16:15 ([place] 7.5-325 Mg) 1 tab Q4H PRN PO 11/05/16 16:15 (Pill Splitter) 1 ea UNSCH PRN OTHER 11/13/16 14:30 Sodium Chloride 1,000 ml @ 0 mls/hr Q0M PRN IV 11/13/16 17:02 11/15/16 11:05 (Heparin Inj) 8,000 units UNSCH PRN IVF 11/13/16 17:15 11/24/16 15:00 Sodium Chloride 1,000 ml @ 200 mls/hr Q5H PRN IV 11/13/16 17:02 Sodium Chloride 1,000 ml @ 0 mls/hr Q0M PRN IV 11/13/16 17:02 (Mannitol Inj) 12.5 gm UNSCH PRN IV 11/13/16 17:15 (Albumin 25% Inj) 25 gm UNSCH PRN IV 11/13/16 17:15 (NS Flush) 5 ml UNSCH PRN IV FLUSH 11/13/16 17:15 11/22/16 15:12 (Heparin Inj) UNSCH PRN .XX 11/13/16 17:15 11/24/16 16:40 (Gentamicin (Dialysis) Inj) 20 mg UNSCH PRN IV 11/13/16 17:15 11/29/16 10:25 (Zofran Inj) 4 mg UNSCH PRN IV 11/13/16 17:15 11/22/16 08:32 (Tylenol) 650 mg UNSCH PRN PO 11/13/16 17:15 11/21/16 12:27 (Benadryl) 25 mg UNSCH PRN PO 11/13/16 17:15 (Nitrostat Sl) 0.4 mg UNSCH PRN SL 11/13/16 17:15 (Catapres) 0.1 mg UNSCH PRN PO 11/13/16 17:15 11/17/16 09:05 (Gelfoam 12 Mm/7 Mm Top) 1 foam UNSCH PRN TOP 11/13/16 17:15 (Levaquin) 250 mg Q24H PO 11/16/16 16:00 12/01/16 16:29 (Lopressor) 50 mg Q12HR PO 11/16/16 21:00 12/02/16 08:53 (Norvasc) 5 mg DAILY PO 11/19/16 12:00 12/02/16 08:53 (Myambutol) 800 mg DAILY PO 11/21/16 18:00 11/30/16 08:44 (Biaxin) 500 mg Q12HR PO 11/21/16 21:00 12/02/16 08:53 (Zovirax) 400 mg Q12HR PO 11/23/16 12:30 12/02/16 08:52 (Bactrim Ds 800-160 Mg) 1 tab MoWeFr@09 PO 11/25/16 09:00 12/02/16 08:53 (Diflucan) 100 mg DAILY PO 11/27/16 09:00 12/10/16 08:59 12/02/16 08:53 (NS Flush) UNSCH PRN IVF 11/29/16 18:15 (Heparin Inj) UNSCH PRN IV FLUSH 11/29/16 18:15 A/P Problem List: (1) Renal failure ICD Code: N19 - Unspecified kidney failure Status: Acute (2) Sepsis ICD Code: A41.9 - Sepsis, unspecified organism Status: Acute (3) UTI (urinary tract infection) ICD Code: N39.0 - Urinary tract infection, site not specified (4) Chronic kidney disease, stage V ICD Code: N18.5 - Chronic kidney disease, stage 5 (5) HIV (human immunodeficiency virus infection) ICD Code: B20 - Human immunodeficiency virus [HIV] disease (6) Anemia ICD Code: D64.9 - Anemia, unspecified (7) Hypertension ICD Code: I10 - Essential (primary) hypertension (8) Medical non-compliance ICD Code: Z91.19 - Patient's noncompliance with other medical treatment and regimen Assessment and Plan 50yo male with PMHX of HIV who follows with Dr. Samuels as outpatient last seen 6 months ago who admits to being noncompliant with his HIV medications for the past 2 months and presents to [facility] ED with complaints of severe buttock pain secondary to multiple buttock and perirectal wounds for the past two months. Severe sepsis secondary to UTI, pneumonia: Status post treatment with Zosyn. Patient is immunocompromised, noncompliant with HAART for the last 2 months. HSV positive. 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 - Blood mycobacterial culture growing acid fast organism. - ID signed off, will continue regimen indefinitely until AFB sensitivity identified - specimen sent to state lab for further ID. Acute renal failure superimposed on chronic kidney disease stage V: Nephrology following, remains non-oliguric. SPEP, serology negative. - Creatinine not improving, per Nephro if no improvement a renal biopsy will be done. s/p renal bx 12/01. Pathology pending. - Hemodialysis per nephrology. HD TTHS - Vas-cath to be changed to Permacath due to poor flow - Dr. Shah following HIV/AIDS: CD4 count less than 20. Patient admitted to being noncompliant with HAART meds for the last 2 months. - He has been counseled. Verbalized understanding Oral thrush, improving: Continue nystatin, clearing up but still present in back of throat. - Continue Diflucan. Monitor. Anemia: - Received transfusion of 2 units PRBCs on 11/16/16 for hemoglobin 6.6 - slight drop in hemoglobin - repeat lab in am to monitor trend Diarrhea - patient reports loose stools yesterday, none today - discussed with patient and nursing staff - will send specimen for cdiff if diarrhea resumes - Lactobacillus BID Hypertension, tachycardia: - HR controlled - hypotensive - hold Norvasc and metoprolol - encourage po intake - check orthostatics Buttock, perirectal wounds: - HSV positive. Valtrex end date 11/22. - continue chronic suppression with acyclovir. - Improving. Generalized weakness, prolonged hospitalization: - PT eval and treat. DVT prophylaxis: Heparin. Full code Discussed with patient, nursing, Dr. Hancock Discharge Planning Plan for DC when cleared by nephrology, HD set up as outpatient. Problem Qualifiers (1) Renal failure: (2) Sepsis: Zaria Neely Dec 02, 2016 09:37
[2016-12-02] MEDS: LACTOBACILLUS ACIDOPHILUS TAB PO SCH ×2 (10:25→21:11)
--- NOTE | 2016-12-02 16:00 | HHI.NPPN ---
Subjective History of Present Illness 50-year-old male with past medical history of HIV disease for more than 20 years and history of renal stone who came to the hospital with complaint of back pain. The patient has back pain going on for the last 2 months off and on and he came to the emergency department yesterday with worsening pain. Additional Remarks Patient is alert, has low grade fever in AM, now afebrile, no hematuria, the BP was low, now 90/60. Review of Systems General Constitutional: Fatigue Cardiovascular Cardiac: MIRZA Objective Data Data 12/02/16 12/03/16 19:00 07:00 Intake Total 50 ml Balance 50 ml IV Total 50 ml Vital Signs Date Time Temp Pulse Resp B/P (MAP) Pulse Ox O2 Delivery O2 Flow Rate FiO2 12/02/16 15:20 90/60 (70) 12/02/16 12:51 97.8 71 18 72/40 (51) 100 12/02/16 10:02 78/48 (58) 12/02/16 10:01 75/48 (57) 12/02/16 10:00 76/46 (56) 12/02/16 09:22 98.1 99 18 79/50 (60) 99 12/02/16 08:00 Room Air 12/02/16 08:00 106 12/02/16 06:00 98.9 92/60 (71) 12/02/16 04:00 100.4 101 20 89/50 (63) 100 12/02/16 00:00 98.9 103 16 94/56 (69) 97 12/01/16 20:30 94 12/01/16 20:30 Room Air 12/01/16 20:00 99.2 92 18 99/60 (73) 98 12/01/16 16:45 98.2 99 18 96/56 (69) 100 -: 12/01/16 1530 Physical Exam General Appearance: No Acute Distress, Comfortable Eyes Eye Exam: Pupils Equal Throat Throat Exam: Oral Mucosa [place] & Moist Pulmonary Resp Exam: Breath Sounds Equal, No Distress, Rhonchi, Decreased Bases Cardiology CV Exam: Regular, Normal Sinus Rhythm Gastrointestinal/Abdomen GI Exam: Soft, Non-Tender, Bowel Sounds Present Extremeties Extremities Exam: No Edema Neurologic Neuro Exam: Alert, Awake, Oriented Psychiatric Psych Exam: Appropriate Responses Assessment/Plan Assessment Summary: MIKE/Acute Renal Failure Problem List: (1) Renal failure ICD Codes: N19 - Unspecified kidney failure Status: Acute (2) Sepsis ICD Codes: A41.9 - Sepsis, unspecified organism Status: Acute (3) Open wound of scrotum ICD Codes: S31.30XA - Unspecified open wound of scrotum and testes, initial encounter Status: Acute Plan Patient has again increase in the BUN and Creatinine. Remain non oliguric. SPEP was negative. Complements normal, other serology also negative. BP is better, on Metoprolol to 50 mg BID. If renal function will not improve, will consider Renal Biopsy once infection is controlled. Fever pattern is better, ID is following. Now on Bactrim, Acyclovir, Clarithromycin and Ethambutol. No improvement in renal function. Possibly has End stage renal disease. Got PermCath. Kidney Biopsy done, follow the results. HD will be in AM. After the Biopsy will consider Dialysis preoperation. I discussed with him both PD and HD. Problem Qualifiers (1) Renal failure: (2) Sepsis: Kwadwo Shah MD Dec 02, 2016 16:00
[2016-12-02] MEDS: LEVOFLOXACIN 250 MG TAB PO SCH (17:00)
[2016-12-03] VITALS: BP 102/61; PULSE 79; RESP 20; TEMP 98.1; O2SAT 100
[2016-12-03 04:00] VITALS: BP 98/57; PULSE 84; RESP 20; TEMP 98.4; O2SAT 100
[2016-12-03 07:55] LABS: HEMATOCRIT 21.5 % (39.0-51.0); MEAN CELL VOLUME 88.9 FL (80.0-100.0); MEAN CORPUSCULAR HEMOGLOBIN 30.2 PG (27.0-34.0); PLATELET COUNT 107 TH/MM3 (150-450); RED BLOOD COUNT 2.42 MIL/MM3 (4.50-5.90); RED CELL DISTRIBUTION WIDTH 14.3 % (11.6-17.2); WHITE BLOOD COUNT 4.9 TH/MM3 (4.0-11.0)
[2016-12-03 08:11] LABS: ANION GAP 12 MEQ/L (5-15); AST (GOT) 46 U/L (15-37); BICARBONATE 26.1 MEQ/L (21.0-32.0); BLOOD UREA NITROGEN 51 MG/DL (7-18); CHLORIDE 96 MEQ/L (98-107); GLOMERULAR FILTRATION RATE 9 ML/MIN (>89); HEMO FLAGS AUTO DIFF; POTASSIUM 3.6 MEQ/L (3.5-5.1); SODIUM (NA) 134 MEQ/L (136-145)
[2016-12-03 08:12] LABS: ALT (GPT) 28 U/L (12-78)
[2016-12-03 08:15] LABS: ALKALINE PHOSPHATASE 57 U/L (45-117); TOTAL BILIRUBIN ADULT 0.3 MG/DL (0.2-1.0)
[2016-12-03] MEDS: SODIUM CHLORIDE 0.9% FLUSH 10 ML FLUSH IV FLUSH SCH ×2 (09:00→21:00)
[2016-12-03 09:06] LABS: BANDS 9 % (0-6); METAMYELOCYTES 1 % (0-1); MYELOCYTES 1 % (0-0); NEUTROPHIL # MANUAL DIFF 4.3 TH/MM3 (1.8-7.7); PLATELET ESTIMATE SMEAR LOW (NORMAL); PLATELET MORPHOLOGY NORMAL (NORMAL); POLYS (SEG NEUTROPHILS) 76 % (16-70); SCAN/DIFF FINAL DIFF MANUAL; WBC DIFF SAMPLE 100
--- NOTE | 2016-12-03 10:06 | HHI.NPPN ---
Subjective History of Present Illness 50-year-old male with past medical history of HIV disease for more than 20 years and history of renal stone who came to the hospital with complaint of back pain. The patient has back pain going on for the last 2 months off and on and he came to the emergency department yesterday with worsening pain. Additional Remarks Patient is alert, has low grade fever in AM, now afebrile, no hematuria, the BP was low, now 90/60. Review of Systems General Constitutional: Fatigue Cardiovascular Cardiac: MIRZA Objective Data Data 12/03/16 12/04/16 19:00 07:00 Output Total 350 ml Balance -350 ml Output Urine Total 350 ml Vital Signs Date Time Temp Pulse Resp B/P (MAP) Pulse Ox O2 Delivery O2 Flow Rate FiO2 12/03/16 04:00 98.4 84 20 98/57 (71) 100 12/03/16 00:00 98.1 79 20 102/61 (75) 100 12/02/16 20:00 Room Air 12/02/16 20:00 98.0 82 16 90/50 (63) 99 12/02/16 19:57 82 12/02/16 16:12 97.7 75 20 96/55 (69) 100 12/02/16 15:20 90/60 (70) 12/02/16 12:51 97.8 71 18 72/40 (51) 100 -: 12/03/16 0726 12/03/16 0726 Physical Exam General Appearance: No Acute Distress, Comfortable Eyes Eye Exam: Pupils Equal Throat Throat Exam: Oral Mucosa [place] & Moist Pulmonary Resp Exam: Breath Sounds Equal, No Distress, Rhonchi, Decreased Bases Cardiology CV Exam: Regular, Normal Sinus Rhythm Gastrointestinal/Abdomen GI Exam: Soft, Non-Tender, Bowel Sounds Present Extremeties Extremities Exam: No Edema Neurologic Neuro Exam: Alert, Awake, Oriented Psychiatric Psych Exam: Appropriate Responses Assessment/Plan Assessment Summary: MIKE/Acute Renal Failure Problem List: (1) Renal failure ICD Codes: N19 - Unspecified kidney failure Status: Acute (2) Sepsis ICD Codes: A41.9 - Sepsis, unspecified organism Status: Acute (3) Open wound of scrotum ICD Codes: S31.30XA - Unspecified open wound of scrotum and testes, initial encounter Status: Acute Plan c/o blurry vision left eye Remain non oliguric. SPEP was negative. Complements normal, other serology also negative. BP is better, on Metoprolol to 50 mg BID. If renal function will not improve, will consider Renal Biopsy once infection is controlled. Fever pattern is better, ID is following. Now on Bactrim, Acyclovir, Clarithromycin and Ethambutol. No improvement in renal function. Possibly has End stage renal disease. Got PermCath. Kidney Biopsy done, follow the results. HD progress noted UF 2.5L 3K bath L eye blurry vision consider Eye exam ? Ethambutol induced re consult ID to address this Problem Qualifiers (1) Renal failure: (2) Sepsis: Chad Vela MD Dec 03, 2016 10:06
--- NOTE | 2016-12-03 10:31 | HHI.PR ---
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 Patient seen and examined today, sitting up in chair eating lunch, had dialysis today. Patient states that he has a sense of blackness in his left eye affecting roughly 90% of his eye, impairing his ability to see clearly. Patient states the other 10% is blurry. He says this started after his dialysis was initiated but had thought he had something in his eye but the problem persisted. Denies any recent fever, chills, cough, shortness of breath, ab pain, n/v/d, dysuria. Objective Vitals Vital Signs Date Time Temp Pulse Resp B/P (MAP) Pulse Ox O2 Delivery O2 Flow Rate FiO2 12/03/16 04:00 98.4 84 20 98/57 (71) 100 12/03/16 00:00 98.1 79 20 102/61 (75) 100 12/02/16 20:00 Room Air 12/02/16 20:00 98.0 82 16 90/50 (63) 99 12/02/16 19:57 82 12/02/16 16:12 97.7 75 20 96/55 (69) 100 12/02/16 15:20 90/60 (70) 12/02/16 12:51 97.8 71 18 72/40 (51) 100 I/O 12/02/16 12/02/16 12/02/16 12/03/16 12/03/16 12/03/16 06:59 14:59 22:59 06:59 14:59 22:59 Intake Total 220 ml 50 ml 360 ml Output Total 150 ml 350 ml Balance 220 ml 50 ml -150 ml 360 ml -350 ml Intake Oral 220 ml 360 ml IV Total 50 ml Output Urine Total 150 ml 350 ml # Voids 2 2 # Bowel Movements 2 2 Result Diagram: 12/03/16 0726 12/03/16 0726 Imaging Last Impressions Renal Biopsy CT 12/01/16 0600 Signed Impressions: Service Date/Time: November 14:17 - CONCLUSION: Uncomplicated CT guided biopsy. Alexis Adhikari MD Central Venous Line 11/29/16 0000 Signed Impressions: Service Date/Time: Tuesday, November 29, 2016 00:00 - CONCLUSION: Uncomplicated catheter removal. Solitario Diaz MD Catheter Placement X-Ray 11/29/16 0000 Signed Impressions: Service Date/Time: Tuesday, November 29, 2016 13:58 - CONCLUSION: Uncomplicated PermaCath placement as above. Solitario Diaz MD Tumor Localization 11/14/16 0000 Signed Impressions: Service Date/Time: Monday, November 14, 2016 11:38 - CONCLUSION: Negative scan Solitario Diaz MD Chest X-Ray 11/13/16 0000 Signed Impressions: Service Date/Time: Sunday, November 13, 2016 16:02 - CONCLUSION: No acute cardiopulmonary disease. Quincy Medellin MD Renal Ultrasound 11/05/16 0000 Signed Impressions: Service Date/Time: Saturday, November 05, 2016 19:17 - CONCLUSION: Diffusely echogenic kidneys indicating medical renal disease. Dorian Murry MD Abdomen/Pelvis CT 11/05/16 0000 Signed Impressions: Service Date/Time: Saturday, November 05, 2016 17:19 - CONCLUSION: 1. 4 mm calculus in the right renal pelvis/ureteropelvic junction with mild adjacent perinephric/periureteral stranding. No evidence of hydronephrosis. 2. 1 cm round hypodensity in the anterior right mid kidney statistically most likely to represent a cyst. 3. 3.7 cm hypodensity in the right lobe of the liver air the dome of the diaphragm. This finding is nonspecific on noncontrast CT. The most likely etiologies include hemangioma and cyst. It could be further evaluated with ultrasound nonemergent followup MRI of the abdomen. 4. Mild dilated proximal right common iliac artery. Dorian Murry MD Objective Remarks GENERAL: Well-developed well-nourished. In no acute distress. SKIN: Warm and dry. No lesions noted. No rash. Right vas cath noted. HEENT: Normocephalic. Pupils equal and round and reactive to light. EOMs intact. CARDIOVASCULAR: Regular rate and rhythm. No murmur appreciated. RESPIRATORY: No accessory muscle use. Clear to auscultation. Breath sounds equal bilaterally. GASTROINTESTINAL: Abdomen soft, non-tender, nondistended. Bowel sounds x4. MUSCULOSKELETAL: No obvious deformities. No clubbing or cyanosis. No edema. NEUROLOGICAL: Awake and alert. No focal neurological deficits. Moves upper and lower extremities spontaneously. Normal speech. Strength 5/5. PSYCHIATRIC: Appropriate mood and affect; insight and judgment normal. Procedures 11/14/16 hemodialysis catheter placement, right internal jugular A/P Problem List: (1) Renal failure ICD Code: N19 - Unspecified kidney failure Status: Acute (2) Sepsis ICD Code: A41.9 - Sepsis, unspecified organism Status: Acute (3) UTI (urinary tract infection) ICD Code: N39.0 - Urinary tract infection, site not specified (4) Chronic kidney disease, stage V ICD Code: N18.5 - Chronic kidney disease, stage 5 (5) HIV (human immunodeficiency virus infection) ICD Code: B20 - Human immunodeficiency virus [HIV] disease (6) Anemia ICD Code: D64.9 - Anemia, unspecified (7) Hypertension ICD Code: I10 - Essential (primary) hypertension (8) Medical non-compliance ICD Code: Z91.19 - Patient's noncompliance with other medical treatment and regimen Assessment and Plan 1. Severe sepsis secondary to UTI, pneumonia: Status post treatment with Zosyn. Patient is immunocompromised, noncompliant with HAART for the last 2 months. HSV positive. 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 Blood mycobacterial culture growing acid fast organism. Afebrile. 2. Acute renal failure superimposed on chronic kidney disease stage V: Nephrology following, remains non-oliguric. SPEP, serology negative. Creatinine not improving, per Nephro if no improvement a renal biopsy will be done. Follow. Hemodialysis per nephrology. 3. HIV/AIDS: CD4 count less than 20. Patient admitted to being noncompliant with HAART meds for the last 2 months. He has been counseled. 4. Oral thrush, improved: Continue Diflucan, end date 12/10/16. 5. Anemia: Hemoglobin dropped from 8.5-->7.3. Received transfusion of 2 units PRBCs on 11/16/16. Will refer to nephrology for transfusion orders. Follow. 6. Hypertension, tachycardia: Continue metoprolol. Heart rate controlled. 7. Buttock, perirectal wounds: HSV positive. Valtrex end date 11/22. Then chronic suppression with acyclovir. 8. DVT prophylaxis: Heparin. 9. Left eye blurry vision: ID reconsulted to address possible Ethambutol induced ? Appreciate recommendations. Problem Qualifiers (1) Renal failure: (2) Sepsis: Patrizia Guillen Dec 03, 2016 10:31
[2016-12-03] MEDS: SODIUM CHLORIDE 0.9% FLUSH 10 ML FLUSH IV FLUSH PRN (10:44)
[2016-12-03] MEDS: SODIUM CHLOR 0.9% 1000 ML INJ 1,000 ML IV PRN (10:45)
[2016-12-03] MEDS: GENTAMICIN SULFATE (DIALYSIS USE ONLY) 20 MG/2 ML VIAL IV PRN (10:45)
[2016-12-03] MEDS: HEPARIN SODIUM - IV 10,000 UNITS/10 ML VIAL PRN (10:45)
[2016-12-03 12:00] VITALS: BP 106/84; PULSE 86; RESP 20; TEMP 98.3; O2SAT 100
[2016-12-03] MEDS: DOCUSATE SODIUM 50 MG/SENNA 8.6 MG TAB PO SCH ×2 (14:00→21:00)
[2016-12-03] MEDS: CLARITHROMYCIN 500 MG TAB PO SCH ×2 (14:21→21:00)
[2016-12-03] MEDS: FLUCONAZOLE 100 MG TAB PO SCH (14:21)
[2016-12-03] MEDS: ETHAMBUTOL HCL 400 MG TAB PO SCH (14:22)
[2016-12-03] MEDS: LACTOBACILLUS ACIDOPHILUS TAB PO SCH ×2 (14:22→21:00)
[2016-12-03] MEDS: ACYCLOVIR 200 MG CAP PO SCH (14:22)
--- NOTE | 2016-12-03 15:22 | PD.CONS ---
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 Patient states that he has a sense of darkness in his left eye and can only see blurry vision through inferotemporal quadrant. He thinks it started after his dialysis was initiated ( about 1 week ago) but is not really sure. He said his last dilated eye exam was 1 year ago and everything was ok at that time. Past Family Social History Allergies: Coded Allergies: No Known Allergies (Unverified , 11/05/16) Physical Exam Vital Signs Vital Signs Date Time Temp Pulse Resp B/P (MAP) Pulse Ox O2 Delivery O2 Flow Rate FiO2 12/03/16 12:00 98.3 86 20 106/84 (91) 100 12/03/16 07:15 Room Air 12/03/16 04:00 98.4 84 20 98/57 (71) 100 12/03/16 00:00 98.1 79 20 102/61 (75) 100 12/02/16 20:00 Room Air 12/02/16 20:00 98.0 82 16 90/50 (63) 99 12/02/16 19:57 82 12/02/16 16:12 97.7 75 20 96/55 (69) 100 12/02/16 15:20 90/60 (70) Physical Exam Va cc at near OD 20/20, OS CF in inferotemporal quadrant EOM full OU CVF full OD, only inferotemporal quadrant OS Pupils 3-1, +APD OS IOP normal to palpation OU Anterior exam OD - normal eyelid, C/S W&Q, K clear, AC deep, pupil round, lens clear OS - normal eyelid, C/S W&Q, K clear, AC deep, pupil round, lens clear Dilated exam OD - ON s/p/f, ves normal, vit clear, retina flat OS - vitreous clear, ON s/p/f, severe vasculitis and retinitis in all 4 quadrants and peripherally Laboratory Laboratory Tests Test 12/03/16 07:26 White Blood Count 4.9 Red Blood Count 2.42 Hemoglobin 7.3 Hematocrit 21.5 Mean Corpuscular Volume 88.9 Mean Corpuscular Hemoglobin 30.2 Mean Corpuscular Hemoglobin Concent 34.0 Red Cell Distribution Width 14.3 Platelet Count 107 Mean Platelet Volume 8.7 CBC Comment AUTO DIFF Differential Total Cells Counted 100 Neutrophils % (Manual) 76 Band Neutrophils % 9 Lymphocytes % 6 Monocytes % 7 Neutrophils # (Manual) 4.3 Metamyelocytes 1 Myelocytes 1 Differential Comment FINAL DIFF MANUAL Platelet Estimate LOW Platelet Morphology Comment NORMAL Blood Urea Nitrogen 51 Creatinine 7.95 Random Glucose 109 Total Protein 6.0 Albumin 2.2 Calcium Level 8.1 Phosphorus Level 4.7 Alkaline Phosphatase 57 Aspartate Amino Transf (AST/SGOT) 46 Alanine Aminotransferase (ALT/SGPT) 28 Total Bilirubin 0.3 Sodium Level 134 Potassium Level 3.6 Chloride Level 96 Carbon Dioxide Level 26.1 Anion Gap 12 Estimat Glomerular Filtration Rate 9 Date/Time Source Procedure Growth Status 11/13/16 15:30 Blood Peripheral Aerobic Blood Culture - Final NO GROWTH IN 5 DAYS Complete 11/13/16 15:30 Blood Peripheral Anaerobic Blood Culture - Final NO GROWTH IN 5 DAYS Complete 11/05/16 16:35 Urine Catheterized Urine Urine Culture - Final 50-100,000 CFU/ML MIXED GRAM POSITIVE... 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 Recommend Retina consult - Dr.Alan Jacobs is currently passenger car conductor for Retina. Recommended treatment is IV ganciclovir, cidofovir, and foscarnet used individually or in combination. Would appreciate ID input. All of these have renal toxicity so it will be imperative to consult with pharmacy/Nephro before starting any of them. Patricia Tello MD Dec 03, 2016 15:22
[2016-12-03 16:00] VITALS: BP 99/59; PULSE 87; RESP 20; TEMP 98.6; O2SAT 100
[2016-12-03] MEDS: HEPARIN SODIUM - SQ 10,000 UNITS/ML VIAL SQ SCH (17:00)
[2016-12-03] MEDS ORDERED: Custom Consult Pharmacy 1 EA OTHER SCH (17:00)
--- NOTE | 2016-12-03 17:24 | HHI.IDPN ---
Subjective Subjective Remarks ID [id number] for Dr Chambers chart was reviewed Patient is a 50-year-old male, with known HIV, end stage AIDS, non compliant He presented with multiple complaints and was diagnosed with disseminated MAC, ARF He was started on Bix, ethambutol for MAC His blood clx + for AFB org, P ID He reportedly co visial disturbance on te L eye cw visual field loss/ scotom which was going o about 1 week and today he was seen by Dr Allyson Tello from ophtha, lmology Dilated exam showed OS - with severe vasculitis and retinitis in all 4 quadrants and peripherally She diagnosed him with retinitis of left eye due to cytomegalovirus and recommended Retina consult Dr.Alan Jacobs is currently insurance commissioner for Retina. and treatment is IV ganciclovir, cidofovir, and foscarnet used individually or in combination Pt is oliguric He has one episode of low grade fever in the last 24 hrs Antibiotics Levaquin Biaxin Ethambutol fluconaxole Bactrim PCP prophylaxis Lines permacath Past Medical History HIV, for 20+years, noncompliant with medications for the past 2 months Kidney stones Allergies: Coded Allergies: No Known Allergies (Unverified , 11/05/16) Objective . Vital Signs Date Time Temp Pulse Resp B/P (MAP) Pulse Ox O2 Delivery O2 Flow Rate FiO2 12/03/16 12:00 98.3 86 20 106/84 (91) 100 12/03/16 07:15 Room Air 12/03/16 04:00 98.4 84 20 98/57 (71) 100 12/03/16 00:00 98.1 79 20 102/61 (75) 100 12/02/16 20:00 Room Air 12/02/16 20:00 98.0 82 16 90/50 (63) 99 12/02/16 19:57 82 12/03/16 12/03/16 12/04/16 15:00 23:00 07:00 Output Total 2350 ml Balance -2350 ml Output Urine Total 350 ml Hemodialysis 2000 ml . Laboratory Tests Test 12/03/16 07:26 White Blood Count 4.9 TH/MM3 Red Blood Count 2.42 MIL/MM3 Hemoglobin 7.3 GM/DL Hematocrit 21.5 % Mean Corpuscular Volume 88.9 FL Mean Corpuscular Hemoglobin 30.2 PG Mean Corpuscular Hemoglobin Concent 34.0 % Red Cell Distribution Width 14.3 % Platelet Count 107 TH/MM3 Mean Platelet Volume 8.7 FL CBC Comment AUTO DIFF Differential Total Cells Counted 100 Neutrophils % (Manual) 76 % Band Neutrophils % 9 % Lymphocytes % 6 % Monocytes % 7 % Neutrophils # (Manual) 4.3 TH/MM3 Metamyelocytes 1 % Myelocytes 1 % Differential Comment FINAL DIFF MANUAL Platelet Estimate LOW Platelet Morphology Comment NORMAL Laboratory Tests Test 12/03/16 07:26 Blood Urea Nitrogen 51 MG/DL Creatinine 7.95 MG/DL Random Glucose 109 MG/DL Total Protein 6.0 GM/DL Albumin 2.2 GM/DL Calcium Level 8.1 MG/DL Phosphorus Level 4.7 MG/DL Alkaline Phosphatase 57 U/L Aspartate Amino Transf (AST/SGOT) 46 U/L Alanine Aminotransferase (ALT/SGPT) 28 U/L Total Bilirubin 0.3 MG/DL Sodium Level 134 MEQ/L Potassium Level 3.6 MEQ/L Chloride Level 96 MEQ/L Carbon Dioxide Level 26.1 MEQ/L Anion Gap 12 MEQ/L Estimat Glomerular Filtration Rate 9 ML/MIN Imaging Last Impressions Renal Biopsy CT 12/01/16 0600 Signed Impressions: Service Date/Time: November 14:17 - CONCLUSION: Uncomplicated CT guided biopsy. Alexis Adhikari MD Central Venous Line 11/29/16 0000 Signed Impressions: Service Date/Time: Tuesday, November 29, 2016 00:00 - CONCLUSION: Uncomplicated catheter removal. Solitario Diaz MD Catheter Placement X-Ray 11/29/16 0000 Signed Impressions: Service Date/Time: Tuesday, November 29, 2016 13:58 - CONCLUSION: Uncomplicated PermaCath placement as above. Solitario Diaz MD Tumor Localization 11/14/16 0000 Signed Impressions: Service Date/Time: Monday, November 14, 2016 11:38 - CONCLUSION: Negative scan Solitario Diaz MD Chest X-Ray 11/13/16 0000 Signed Impressions: Service Date/Time: Sunday, November 13, 2016 16:02 - CONCLUSION: No acute cardiopulmonary disease. Quincy Medellin MD Renal Ultrasound 11/05/16 0000 Signed Impressions: Service Date/Time: Saturday, November 05, 2016 19:17 - CONCLUSION: Diffusely echogenic kidneys indicating medical renal disease. Dorian Murry MD Abdomen/Pelvis CT 11/05/16 0000 Signed Impressions: Service Date/Time: Saturday, November 05, 2016 17:19 - CONCLUSION: 1. 4 mm calculus in the right renal pelvis/ureteropelvic junction with mild adjacent perinephric/periureteral stranding. No evidence of hydronephrosis. 2. 1 cm round hypodensity in the anterior right mid kidney statistically most likely to represent a cyst. 3. 3.7 cm hypodensity in the right lobe of the liver air the dome of the diaphragm. This finding is nonspecific on noncontrast CT. The most likely etiologies include hemangioma and cyst. It could be further evaluated with ultrasound nonemergent followup MRI of the abdomen. 4. Mild dilated proximal right common iliac artery. Dorian Murry MD Physical Exam GENERAL: awake and alert, not in respiratory distress. SKIN: Warm and dry. He has hyperpigmented macules in his UE. HEAD: Atraumatic. Normocephalic. No temporal wasting, or tenderness. EYES: [place] conjunctiva. No petechia or hemorrhage. No scleral icterus. No injection or drainage. EARS, NOSE AND THROAT: Nose without bleeding or purulent nasal discharge. Mucous membranes pink and moist. No oral lesions noted. No exudate. No oral thrush. NECK: Trachea midline. Supple and not tender, no meningeal signs CARDIOVASCULAR: Regular rate and rhythm. No murmurs, rubs or gallops heard RESPIRATORY: Clear to auscultation. Breath sounds equal bilaterally. No rales , wheezing or rhonchi ABDOMEN: Soft, non-tender, nondistended. Bowel sounds present and normoactive. No guarding. No rebound. No organomegaly. EXTREMITIES: No clubbing, cyanosis, or edema.No joint effusion, has good ROM. No calf tenderness. Well perfused and warm. NEUROLOGICAL: Awake alert Non-focal PSYCHIATRIC: Normal affect, calm and cooperative. LINE: Permacath in place R IJ , No evidence of infection Assessment & Plan Remarks IMPRESSION Fevers,resolved - likely due to AFB in [place], likely LULU - repeat UA negative - has stones, patient stated he passed the stones, no obstruction on imaging studies - ?infection related to his chronic HIV - ulcers in buttock, doubt causing fevers, looks herpetic, ?VZV Renal failure, non oliguric, not improving - HD planned- path P - form presser ff HIV, end stge AIDS, noncompliance Disseminated MAC Probablye CMV retinintis, no e/o EThambutol toxicity - jarrett Tello - awaiting retinal specialist consult RECOMMENDATION Continue Levaquin Continue Biaxin Continue EMB: no e/o ETM tox per lever miller eval'n dc Acyclovir Continue PCP prophylaxis Start gancylovir - will consult pharmacist for dosage agree with retinal specialist consult chk CMV VL dw Dr Allyson Tello (ophthalmology) dw form presser Dr Vela: katina Martel with the plan for gancyclovir dw pharmacist Gina Angeles MD Dec 03, 2016 17:24
[2016-12-03] MEDS: LEVOFLOXACIN 250 MG TAB PO SCH (18:01)
[2016-12-03 20:00] VITALS: BP 103/57; PULSE 88; PULSE 93; RESP 20; TEMP 98.6; O2SAT 100
[2016-12-03] MEDS ORDERED: GANCICLOVIR IV ONE (21:00)
[2016-12-03] MEDS ORDERED: SODIUM CHLORIDE 0.9% IV ONE (21:00)
[2016-12-04] VITALS (8 sets, daily range): BP systolic 91–110; BP diastolic 52–60; PULSE 87–103; RESP 16–20; TEMP 98.7–99.8; O2SAT 99–100
[2016-12-04] MEDS: HEPARIN SODIUM - SQ 10,000 UNITS/ML VIAL SQ SCH ×2 (04:02→16:38)
[2016-12-04] MEDS: DOCUSATE SODIUM 50 MG/SENNA 8.6 MG TAB PO SCH ×2 (08:09→20:14)
[2016-12-04] MEDS ORDERED: SODIUM CHLORIDE 0.9% IV SCH (09:00)
[2016-12-04] MEDS ORDERED: GANCICLOVIR IV SCH (09:00)
[2016-12-04 09:28] LABS: MEAN CELL VOLUME 89.8 FL (80.0-100.0); MEAN CORPUSCULAR HEMOGLOBIN 29.4 PG (27.0-34.0); MEAN CORPUSCULAR HGB CONC 32.7 % (32.0-36.0); PLATELET COUNT 124 TH/MM3 (150-450); RED BLOOD COUNT 2.44 MIL/MM3 (4.50-5.90); RED CELL DISTRIBUTION WIDTH 14.7 % (11.6-17.2); WHITE BLOOD COUNT 6.6 TH/MM3 (4.0-11.0)
[2016-12-04 09:32] LABS: HEMO FLAGS AUTO DIFF
[2016-12-04] MEDS: LACTOBACILLUS ACIDOPHILUS TAB PO SCH ×2 (11:10→20:14)
[2016-12-04] MEDS: ETHAMBUTOL HCL 400 MG TAB PO SCH (11:10)
[2016-12-04] MEDS: CLARITHROMYCIN 500 MG TAB PO SCH ×2 (11:10→20:14)
[2016-12-04] MEDS: FLUCONAZOLE 100 MG TAB PO SCH (11:10)
[2016-12-04] MEDS: SODIUM CHLORIDE 0.9% FLUSH 10 ML FLUSH IV FLUSH SCH ×2 (11:19→20:14)
--- NOTE | 2016-12-04 11:44 | HHI.NPPN ---
Subjective History of Present Illness 50-year-old male with past medical history of HIV disease for more than 20 years and history of renal stone who came to the hospital with complaint of back pain. The patient has back pain going on for the last 2 months off and on and he came to the emergency department yesterday with worsening pain. Additional Remarks Patient is alert, has low grade fever in AM, now afebrile, no hematuria, the BP was low, now 90/60. Review of Systems General Constitutional: Fatigue Cardiovascular Cardiac: MIRZA Objective Data Data Vital Signs Date Time Temp Pulse Resp B/P (MAP) Pulse Ox O2 Delivery O2 Flow Rate FiO2 12/04/16 08:20 Room Air 12/04/16 08:20 87 12/04/16 08:00 98.9 93 16 96/57 (70) 99 12/04/16 04:00 Room Air 12/04/16 04:00 99.4 93 20 100 12/04/16 00:00 98.7 88 20 107/59 (75) 100 12/03/16 23:57 Room Air 12/03/16 20:00 88 12/03/16 20:00 Room Air 12/03/16 20:00 98.6 93 20 103/57 (72) 100 12/03/16 16:00 98.6 87 20 99/59 (72) 100 12/03/16 12:00 98.3 86 20 106/84 (91) 100 -: 12/04/16 0806 12/04/16 0806 Physical Exam General Appearance: No Acute Distress, Comfortable Eyes Eye Exam: Pupils Equal Throat Throat Exam: Oral Mucosa [place] & Moist Pulmonary Resp Exam: Breath Sounds Equal, No Distress, Rhonchi, Decreased Bases Cardiology CV Exam: Regular, Normal Sinus Rhythm Gastrointestinal/Abdomen GI Exam: Soft, Non-Tender, Bowel Sounds Present Extremeties Extremities Exam: No Edema Neurologic Neuro Exam: Alert, Awake, Oriented Psychiatric Psych Exam: Appropriate Responses Assessment/Plan Assessment Summary: MIKE/Acute Renal Failure Problem List: (1) Renal failure ICD Codes: N19 - Unspecified kidney failure Status: Acute (2) Sepsis ICD Codes: A41.9 - Sepsis, unspecified organism Status: Acute (3) Open wound of scrotum ICD Codes: S31.30XA - Unspecified open wound of scrotum and testes, initial encounter Status: Acute Plan c/o blurry vision left eye Remain non oliguric. SPEP was negative. Complements normal, other serology also negative. BP is better, on Metoprolol to 50 mg BID. If renal function will not improve, will consider Renal Biopsy once infection is controlled. Fever pattern is better, ID is following. Now on Bactrim, Acyclovir, Clarithromycin and Ethambutol. No improvement in renal function. Possibly has End stage renal disease. Got PermCath. Kidney Biopsy done, follow the results. HD progress noted UF yesterday L eye CMV Retinitis started on Ganciclovir Dr. Magdaleno to follow Problem Qualifiers (1) Renal failure: (2) Sepsis: Chad Vela MD Dec 04, 2016 11:44
--- NOTE | 2016-12-04 13:20 | HHI.PR ---
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 Patient seen and examined today, lying in bed resting. Awakens to voice. Denies any new acute complaints overnight. Continued visual field loss in left eye. Denies any nausea or vomiting. Denies any dizziness. Tolerating PO intake. VSS. Afebrile. Objective Vitals Vital Signs Date Time Temp Pulse Resp B/P (MAP) Pulse Ox O2 Delivery O2 Flow Rate FiO2 12/04/16 08:20 Room Air 12/04/16 08:20 87 12/04/16 08:00 98.9 93 16 96/57 (70) 99 12/04/16 04:00 Room Air 12/04/16 04:00 99.4 93 20 100 12/04/16 00:00 98.7 88 20 107/59 (75) 100 12/03/16 23:57 Room Air 12/03/16 20:00 88 12/03/16 20:00 Room Air 12/03/16 20:00 98.6 93 20 103/57 (72) 100 12/03/16 16:00 98.6 87 20 99/59 (72) 100 I/O 12/03/16 12/03/16 12/03/16 12/04/16 12/04/16 12/04/16 06:59 14:59 22:59 06:59 14:59 22:59 Intake Total 360 ml 480 ml 101.62 ml Output Total 2350 ml 300 ml 200 ml Balance 360 ml -2350 ml 180 ml -98.38 ml Intake Oral 360 ml 480 ml IV Total 101.62 ml Output Urine Total 350 ml 300 ml 200 ml Hemodialysis 2000 ml # Voids 2 # Bowel Movements 2 0 Result Diagram: 12/04/16 0806 12/04/16 0806 Imaging Last Impressions Renal Biopsy CT 12/01/16 0600 Signed Impressions: Service Date/Time: November 14:17 - CONCLUSION: Uncomplicated CT guided biopsy. Alexis Adhikari MD Central Venous Line 11/29/16 0000 Signed Impressions: Service Date/Time: Tuesday, November 29, 2016 00:00 - CONCLUSION: Uncomplicated catheter removal. Solitario Diaz MD Catheter Placement X-Ray 11/29/16 0000 Signed Impressions: Service Date/Time: Tuesday, November 29, 2016 13:58 - CONCLUSION: Uncomplicated PermaCath placement as above. Solitario Diaz MD Tumor Localization 11/14/16 0000 Signed Impressions: Service Date/Time: Monday, November 14, 2016 11:38 - CONCLUSION: Negative scan Solitario Diaz MD Chest X-Ray 11/13/16 0000 Signed Impressions: Service Date/Time: Sunday, November 13, 2016 16:02 - CONCLUSION: No acute cardiopulmonary disease. Quincy Medellin MD Renal Ultrasound 11/05/16 0000 Signed Impressions: Service Date/Time: Saturday, November 05, 2016 19:17 - CONCLUSION: Diffusely echogenic kidneys indicating medical renal disease. Dorian Murry MD Abdomen/Pelvis CT 11/05/16 0000 Signed Impressions: Service Date/Time: Saturday, November 05, 2016 17:19 - CONCLUSION: 1. 4 mm calculus in the right renal pelvis/ureteropelvic junction with mild adjacent perinephric/periureteral stranding. No evidence of hydronephrosis. 2. 1 cm round hypodensity in the anterior right mid kidney statistically most likely to represent a cyst. 3. 3.7 cm hypodensity in the right lobe of the liver air the dome of the diaphragm. This finding is nonspecific on noncontrast CT. The most likely etiologies include hemangioma and cyst. It could be further evaluated with ultrasound nonemergent followup MRI of the abdomen. 4. Mild dilated proximal right common iliac artery. Dorian Murry MD Objective Remarks GENERAL: Well-developed well-nourished. In no acute distress. SKIN: Warm and dry. No lesions noted. No rash. Right vas cath noted. HEENT: Normocephalic. Pupils equal and round and reactive to light. EOMs intact. CARDIOVASCULAR: Regular rate and rhythm. No murmur appreciated. RESPIRATORY: No accessory muscle use. Clear to auscultation. Breath sounds equal bilaterally. GASTROINTESTINAL: Abdomen soft, non-tender, nondistended. Bowel sounds x4. MUSCULOSKELETAL: No obvious deformities. No clubbing or cyanosis. No edema. NEUROLOGICAL: Awake and alert. No focal neurological deficits. Moves upper and lower extremities spontaneously. Normal speech. Strength 5/5. PSYCHIATRIC: Appropriate mood and affect; insight and judgment normal. Procedures 11/14/16 hemodialysis catheter placement, right internal jugular A/P Problem List: (1) Renal failure ICD Code: N19 - Unspecified kidney failure Status: Acute (2) Sepsis ICD Code: A41.9 - Sepsis, unspecified organism Status: Acute (3) UTI (urinary tract infection) ICD Code: N39.0 - Urinary tract infection, site not specified (4) Chronic kidney disease, stage V ICD Code: N18.5 - Chronic kidney disease, stage 5 (5) HIV (human immunodeficiency virus infection) ICD Code: B20 - Human immunodeficiency virus [HIV] disease (6) Anemia ICD Code: D64.9 - Anemia, unspecified (7) Hypertension ICD Code: I10 - Essential (primary) hypertension (8) Medical non-compliance ICD Code: Z91.19 - Patient's noncompliance with other medical treatment and regimen Assessment and Plan 1. Severe sepsis secondary to UTI, pneumonia: Status post treatment with Zosyn. Patient is immunocompromised, noncompliant with HAART for the last 2 months. HSV positive. 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 Blood mycobacterial culture growing acid fast organism. Afebrile. 2. Acute renal failure superimposed on chronic kidney disease stage V: Nephrology following, remains non-oliguric. SPEP, serology negative. Creatinine improving some. Per Nephro if no improvement a renal biopsy will be done. Follow. Hemodialysis per nephrology. 3. HIV/AIDS: CD4 count less than 20. Patient admitted to being noncompliant with HAART meds for the last 2 months. He has been counseled. 4. Oral thrush, improved: Continue Diflucan, end date 12/10/16. 5. Anemia: Hemoglobin dropped from 8.5-->7.3-->7.2. Received transfusion of 2 units PRBCs on 11/16/16. Will refer to nephrology for transfusion orders. Follow. Repeat CBC in am. 6. Hypertension, tachycardia: Continue metoprolol. Heart rate controlled. 7. Buttock, perirectal wounds: HSV positive. Valtrex end date 11/22. Then chronic suppression with acyclovir. 8. DVT prophylaxis: Heparin. 9. Probable CMV retinitis: Continue left eye blurry vision/visual field loss. ID following patient, does not believe to be Ethambutol induced. Comedian came to see patient recommending a retina consult. Awaiting input. Nephrology following patient and monitoring medications. Problem Qualifiers (1) Renal failure: (2) Sepsis: Patrizia Guillen Dec 04, 2016 13:20
[2016-12-04 13:32] LABS: BANDS 3 % (0-6); MYELOCYTES 1 % (0-0); NEUTROPHIL # MANUAL DIFF 5.6 TH/MM3 (1.8-7.7); OVALOCYTES 1+ (NORMAL); PLATELET ESTIMATE SMEAR LOW (NORMAL); PLATELET MORPHOLOGY NORMAL (NORMAL); POLYS (SEG NEUTROPHILS) 81 % (16-70); SCAN/DIFF FINAL DIFF MANUAL; TEARDROP RBCS 1+ (NORMAL); WBC DIFF SAMPLE 100
[2016-12-04] MEDS: LEVOFLOXACIN 250 MG TAB PO SCH (16:35)
[2016-12-05] VITALS (7 sets, daily range): BP systolic 97–118; BP diastolic 55–72; PULSE 91–104; RESP 16–20; TEMP 98.3–100.6; O2SAT 95–100
[2016-12-05] MEDS: HEPARIN SODIUM - SQ 10,000 UNITS/ML VIAL SQ SCH ×2 (03:51→16:02)
[2016-12-05 06:47] LABS: AUTOMATED NEUTROPHIL # 6.5 TH/MM3 (1.8-7.7); BASOPHIL % 0.4 % (0.0-2.0); EOSINOPHIL % 0.1 % (0.0-4.0); HEMATOCRIT 21.6 % (39.0-51.0); LYMPH % 2.5 % (9.0-44.0); LYMPHOCYTE # 0.2 TH/MM3 (1.0-4.8); MEAN CELL VOLUME 90.7 FL (80.0-100.0); MEAN CORPUSCULAR HEMOGLOBIN 29.7 PG (27.0-34.0); MEAN CORPUSCULAR HGB CONC 32.8 % (32.0-36.0); PLATELET COUNT 121 TH/MM3 (150-450); RED BLOOD COUNT 2.38 MIL/MM3 (4.50-5.90); WHITE BLOOD COUNT 7.5 TH/MM3 (4.0-11.0)
[2016-12-05 07:11] LABS: BICARBONATE 26.4 MEQ/L (21.0-32.0); POTASSIUM 3.7 MEQ/L (3.5-5.1)
[2016-12-05 07:23] LABS: HEMO FLAGS AUTO DIFF
[2016-12-05] MEDS: ETHAMBUTOL HCL 400 MG TAB PO SCH (09:00)
[2016-12-05] MEDS: SULFAMETHOXAZOLE-TRIMETHOPRIM DS 800-160 MG TAB PO SCH (09:00)
[2016-12-05] MEDS: LACTOBACILLUS ACIDOPHILUS TAB PO SCH ×2 (09:00→20:45)
[2016-12-05] MEDS: CLARITHROMYCIN 500 MG TAB PO SCH ×2 (09:00→20:45)
[2016-12-05] MEDS: SODIUM CHLORIDE 0.9% FLUSH 10 ML FLUSH IV FLUSH SCH ×2 (09:00→20:45)
[2016-12-05] MEDS: DOCUSATE SODIUM 50 MG/SENNA 8.6 MG TAB PO SCH ×2 (09:00→20:45)
[2016-12-05] MEDS: FLUCONAZOLE 100 MG TAB PO SCH (09:00)
--- NOTE | 2016-12-05 10:31 | HHI.PR ---
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 Patient seen and examined, lying in bed comfortably. Denies any new acute complaints overnight. Eating well. Denies any abdominal pain, nausea and vomiting. Hemoglobin trending down, 7.1 today. Patient asymptomatic. TMAX 100.6 overnight. Objective Vitals Vital Signs Date Time Temp Pulse Resp B/P (MAP) Pulse Ox O2 Delivery O2 Flow Rate FiO2 12/05/16 08:10 Room Air 12/05/16 08:10 96 12/05/16 04:00 100.6 96 18 102/60 (74) 95 12/05/16 04:00 Room Air 12/05/16 00:43 100.6 104 18 97/60 (72) 100 12/05/16 00:00 Room Air 12/04/16 20:17 99.6 101 18 91/52 (65) 100 12/04/16 20:00 94 12/04/16 20:00 Room Air 12/04/16 16:00 99.8 103 16 102/57 (72) 100 12/04/16 12:00 98.8 92 16 110/60 (77) 100 I/O 12/04/16 12/04/16 12/04/16 12/05/16 12/05/16 12/05/16 07:00 15:00 23:00 07:00 15:00 23:00 Intake Total 101.62 ml 360 ml Output Total 200 ml 200 ml 550 ml Balance -98.38 ml 160 ml -550 ml Intake Oral 360 ml IV Total 101.62 ml Output Urine Total 200 ml 200 ml 550 ml # Bowel Movements 0 Result Diagram: 12/05/16 0510 12/05/16 0510 Imaging Last Impressions Renal Biopsy CT 12/01/16 0600 Signed Impressions: Service Date/Time: November 14:17 - CONCLUSION: Uncomplicated CT guided biopsy. Alexis Adhikari MD Central Venous Line 11/29/16 0000 Signed Impressions: Service Date/Time: Tuesday, November 29, 2016 00:00 - CONCLUSION: Uncomplicated catheter removal. Solitario Diaz MD Catheter Placement X-Ray 11/29/16 0000 Signed Impressions: Service Date/Time: Tuesday, November 29, 2016 13:58 - CONCLUSION: Uncomplicated PermaCath placement as above. Solitario Diaz MD Tumor Localization 11/14/16 0000 Signed Impressions: Service Date/Time: Monday, November 14, 2016 11:38 - CONCLUSION: Negative scan Solitario Diaz MD Chest X-Ray 11/13/16 0000 Signed Impressions: Service Date/Time: Sunday, November 13, 2016 16:02 - CONCLUSION: No acute cardiopulmonary disease. Quincy Medellin MD Renal Ultrasound 11/05/16 0000 Signed Impressions: Service Date/Time: Saturday, November 05, 2016 19:17 - CONCLUSION: Diffusely echogenic kidneys indicating medical renal disease. Dorian Murry MD Abdomen/Pelvis CT 11/05/16 0000 Signed Impressions: Service Date/Time: Saturday, November 05, 2016 17:19 - CONCLUSION: 1. 4 mm calculus in the right renal pelvis/ureteropelvic junction with mild adjacent perinephric/periureteral stranding. No evidence of hydronephrosis. 2. 1 cm round hypodensity in the anterior right mid kidney statistically most likely to represent a cyst. 3. 3.7 cm hypodensity in the right lobe of the liver air the dome of the diaphragm. This finding is nonspecific on noncontrast CT. The most likely etiologies include hemangioma and cyst. It could be further evaluated with ultrasound nonemergent followup MRI of the abdomen. 4. Mild dilated proximal right common iliac artery. Dorian Murry MD Objective Remarks GENERAL: Well-developed well-nourished. In no acute distress. SKIN: Warm and dry. No lesions noted. No rash. Right vas cath noted. HEENT: Normocephalic. Pupils equal and round and reactive to light. EOMs intact. CARDIOVASCULAR: Regular rate and rhythm. No murmur appreciated. RESPIRATORY: No accessory muscle use. Clear to auscultation. Breath sounds equal bilaterally. GASTROINTESTINAL: Abdomen soft, non-tender, nondistended. Bowel sounds x4. MUSCULOSKELETAL: No obvious deformities. No clubbing or cyanosis. No edema. NEUROLOGICAL: Awake and alert. No focal neurological deficits. Moves upper and lower extremities spontaneously. Normal speech. Strength 5/5. PSYCHIATRIC: Appropriate mood and affect; insight and judgment normal. Procedures 11/14/16 hemodialysis catheter placement, right internal jugular A/P Problem List: (1) Renal failure ICD Code: N19 - Unspecified kidney failure Status: Acute (2) Sepsis ICD Code: A41.9 - Sepsis, unspecified organism Status: Acute (3) UTI (urinary tract infection) ICD Code: N39.0 - Urinary tract infection, site not specified (4) Chronic kidney disease, stage V ICD Code: N18.5 - Chronic kidney disease, stage 5 (5) HIV (human immunodeficiency virus infection) ICD Code: B20 - Human immunodeficiency virus [HIV] disease (6) Anemia ICD Code: D64.9 - Anemia, unspecified (7) Hypertension ICD Code: I10 - Essential (primary) hypertension (8) Medical non-compliance ICD Code: Z91.19 - Patient's noncompliance with other medical treatment and regimen Assessment and Plan Severe sepsis secondary to UTI, pneumonia - Status post treatment with Zosyn. Patient is immunocompromised, noncompliant with HAART for the last 2 months. - HSV positive. 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 Blood mycobacterial culture growing acid fast organism. Afebrile. - Continue Levaquin. Continue PCP prophylaxis. Fever: TMAX 100.6 overnight. WBC 7.5 today. Will repeat blood cultures if temp increases >100.9. Will follow. Acute renal failure superimposed on chronic kidney disease stage V - Nephrology following, remains non-oliguric. - SPEP, serology negative. Creatinine improving some. - Per Nephro if no improvement a renal biopsy will be done. Follow. Hemodialysis per nephrology. HIV/AIDS - CD4 count less than 20. Patient admitted to being noncompliant with HAART meds for the last 2 months. He has been counseled. 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 ID following patient, does not believe to be Ethambutol induced. - Employee Relations Advisor came to see patient recommending a retina consult. Awaiting input. Nephrology following patient and monitoring medications. Oral thrush, improved: Continue Diflucan, end date 12/10/16. Anemia - Hemoglobin dropped from 8.5-->7.3-->7.2-->7.1. Received transfusion of 2 units PRBCs on 11/16/16. Will refer to nephrology for transfusion orders. Will transfuse if hemoglobin drops less than 7.0. Follow. Hypertension, tachycardia: Continue metoprolol. Heart rate controlled. Buttock, perirectal wounds: HSV positive. Valtrex end date 11/22. Then chronic suppression with acyclovir. DVT prophylaxis: Heparin. Problem Qualifiers (1) Renal failure: (2) Sepsis: Patrizia Guillen Dec 05, 2016 10:31
[2016-12-05 10:38] LABS: BANDS 6 % (0-6); NEUTROPHIL # MANUAL DIFF 6.8 TH/MM3 (1.8-7.7); OVALOCYTES 1+ (NORMAL); PLATELET ESTIMATE SMEAR LOW (NORMAL); PLATELET MORPHOLOGY NORMAL (NORMAL); POLYS (SEG NEUTROPHILS) 84 % (16-70); SCAN/DIFF FINAL DIFF MANUAL; WBC DIFF SAMPLE 100
--- NOTE | 2016-12-05 11:46 | HHI.IDPN ---
Subjective Subjective Remarks Patient is a 50-year-old male, with known HIV, end stage AIDS, non compliant He presented with multiple complaints and was diagnosed with disseminated MAC, ARF He was started on Bix, ethambutol for MAC, BC with AFB, no ID yet Has been afebrile since EMB started Has been getting HD T- had renal biopsy and results pending C/O blurry vision Ophtha eval showed CMV retinitis Started on IV Ganciclovir 12/04 No change in vision complaints Had some fevers since last night No new complaint No resp complaint No diarrhea No N/V No complaint No pain at biopsy site Antibiotics Levaquin Biaxin Ethambutol fluconazole Bactrim PCP prophylaxis Ganciclovir IV Lines permacath Past Medical History HIV, for 20+years, noncompliant with medications for the past 2 months Kidney stones Allergies: Coded Allergies: No Known Allergies (Unverified , 11/05/16) Objective . Vital Signs Date Time Temp Pulse Resp B/P (MAP) Pulse Ox O2 Delivery O2 Flow Rate FiO2 12/05/16 08:10 Room Air 12/05/16 08:10 96 12/05/16 04:00 100.6 96 18 102/60 (74) 95 12/05/16 04:00 Room Air 12/05/16 00:43 100.6 104 18 97/60 (72) 100 12/05/16 00:00 Room Air 12/04/16 20:17 99.6 101 18 91/52 (65) 100 12/04/16 20:00 94 12/04/16 20:00 Room Air 12/04/16 16:00 99.8 103 16 102/57 (72) 100 12/04/16 12:00 98.8 92 16 110/60 (77) 100 . Laboratory Tests Test 12/04/16 08:06 12/05/16 05:10 White Blood Count 6.6 TH/MM3 7.5 TH/MM3 Red Blood Count 2.44 MIL/MM3 2.38 MIL/MM3 Hemoglobin 7.2 GM/DL 7.1 GM/DL Hematocrit 22.0 % 21.6 % Mean Corpuscular Volume 89.8 FL 90.7 FL Mean Corpuscular Hemoglobin 29.4 PG 29.7 PG Mean Corpuscular Hemoglobin Concent 32.7 % 32.8 % Red Cell Distribution Width 14.7 % 15.0 % Platelet Count 124 TH/MM3 121 TH/MM3 Mean Platelet Volume 8.3 FL 8.6 FL CBC Comment AUTO DIFF AUTO DIFF Differential Total Cells Counted 100 100 Neutrophils % (Manual) 81 % 84 % Band Neutrophils % 3 % 6 % Lymphocytes % 8 % 5 % Monocytes % 7 % 5 % Neutrophils # (Manual) 5.6 TH/MM3 6.8 TH/MM3 Myelocytes 1 % Differential Comment FINAL DIFF MANUAL FINAL DIFF MANUAL Platelet Estimate LOW LOW Platelet Morphology Comment NORMAL NORMAL Tear Drop Cells 1+ Ovalocytes 1+ 1+ Neutrophils (%) (Auto) 86.0 % Lymphocytes (%) (Auto) 2.5 % Monocytes (%) (Auto) 11.0 % Eosinophils (%) (Auto) 0.1 % Basophils (%) (Auto) 0.4 % Neutrophils # (Auto) 6.5 TH/MM3 Lymphocytes # (Auto) 0.2 TH/MM3 Monocytes # (Auto) 0.8 TH/MM3 Eosinophils # (Auto) 0.0 TH/MM3 Basophils # (Auto) 0.0 TH/MM3 Laboratory Tests Test 12/04/16 08:06 12/05/16 05:10 Blood Urea Nitrogen 34 MG/DL 42 MG/DL Creatinine 6.49 MG/DL 7.80 MG/DL Random Glucose 99 MG/DL 98 MG/DL Calcium Level 8.9 MG/DL 8.6 MG/DL Sodium Level 136 MEQ/L 133 MEQ/L Potassium Level 4.0 MEQ/L 3.7 MEQ/L Chloride Level 98 MEQ/L 96 MEQ/L Carbon Dioxide Level 29.0 MEQ/L 26.4 MEQ/L Anion Gap 9 MEQ/L 11 MEQ/L Estimat Glomerular Filtration Rate 11 ML/MIN 9 ML/MIN Imaging Last Impressions Renal Biopsy CT 12/01/16 0600 Signed Impressions: Service Date/Time: November 14:17 - CONCLUSION: Uncomplicated CT guided biopsy. Alexis Adhikari MD Central Venous Line 11/29/16 0000 Signed Impressions: Service Date/Time: Tuesday, November 29, 2016 00:00 - CONCLUSION: Uncomplicated catheter removal. Solitario Diaz MD Catheter Placement X-Ray 11/29/16 0000 Signed Impressions: Service Date/Time: Tuesday, November 29, 2016 13:58 - CONCLUSION: Uncomplicated PermaCath placement as above. Solitario Diaz MD Tumor Localization 11/14/16 0000 Signed Impressions: Service Date/Time: Monday, November 14, 2016 11:38 - CONCLUSION: Negative scan Solitario Diaz MD Chest X-Ray 11/13/16 0000 Signed Impressions: Service Date/Time: Sunday, November 13, 2016 16:02 - CONCLUSION: No acute cardiopulmonary disease. Quincy Medellin MD Renal Ultrasound 11/05/16 0000 Signed Impressions: Service Date/Time: Saturday, November 05, 2016 19:17 - CONCLUSION: Diffusely echogenic kidneys indicating medical renal disease. Dorian Murry MD Abdomen/Pelvis CT 11/05/16 0000 Signed Impressions: Service Date/Time: Saturday, November 05, 2016 17:19 - CONCLUSION: 1. 4 mm calculus in the right renal pelvis/ureteropelvic junction with mild adjacent perinephric/periureteral stranding. No evidence of hydronephrosis. 2. 1 cm round hypodensity in the anterior right mid kidney statistically most likely to represent a cyst. 3. 3.7 cm hypodensity in the right lobe of the liver air the dome of the diaphragm. This finding is nonspecific on noncontrast CT. The most likely etiologies include hemangioma and cyst. It could be further evaluated with ultrasound nonemergent followup MRI of the abdomen. 4. Mild dilated proximal right common iliac artery. Dorian Murry MD Physical Exam GENERAL: awake and alert, not in respiratory distress. SKIN: Warm and dry. NO rash HEAD: Atraumatic. Normocephalic. No temporal wasting, or tenderness. EYES: [place] conjunctiva. No petechia or hemorrhage. No scleral icterus. No injection or drainage. EARS, NOSE AND THROAT: Nose without bleeding or purulent nasal discharge. Mucous membranes pink and moist. No oral lesions noted. No exudate. No oral thrush. NECK: Trachea midline. Supple and not tender, no meningeal signs CARDIOVASCULAR: Regular rate and rhythm. No murmurs, rubs or gallops heard RESPIRATORY: Clear to auscultation. Breath sounds equal bilaterally. No rales , wheezing or rhonchi ABDOMEN: Soft, non-tender, nondistended. Bowel sounds present and normoactive. No guarding. No rebound. No organomegaly. EXTREMITIES: No clubbing, cyanosis, or edema.No joint effusion, has good ROM. No calf tenderness. Well perfused and warm. NEUROLOGICAL: Awake alert Non-focal PSYCHIATRIC: Normal affect, calm and cooperative. LINE: Permacath in place R IJ , No evidence of infection Assessment & Plan Remarks IMPRESSION Fevers, on initial presentation, resolved - likely due to AFB in BC, likely LULU Has recurrent fevers, non-localizing Renal failure, non oliguric, not improving - HD planned- path P - facility specialist ff HIV, end stge AIDS, noncompliance Disseminated MAC Probable CMV retinintis, no evidence EThambutol toxicity oer ophth eval - awaiting retinal specialist consult RECOMMENDATION Continue Levaquin Continue Biaxin Continue EMB Continue PCP prophylaxis Continue gancylovir - will consult pharmacist for dosage Agree with retinal specialist consult Follow repeat CMV PCR - initial PCR was negative Monitor temps - will repeat BC when he goes for HD tomorrow Await renal biopsy result Monitor progress Explained plan to the patient Bozena Chambers MD Dec 05, 2016 11:46
[2016-12-05] MEDS: LEVOFLOXACIN 250 MG TAB PO SCH (16:00)
--- NOTE | 2016-12-05 17:08 | HHI.NPPN ---
Subjective History of Present Illness 50-year-old male with past medical history of HIV disease for more than 20 years and history of renal stone who came to the hospital with complaint of back pain. The patient has back pain going on for the last 2 months off and on and he came to the emergency department yesterday with worsening pain. Additional Remarks Patient is alert, has low grade fever in AM, now afebrile, no hematuria, not eating well. Review of Systems General Constitutional: Fatigue Cardiovascular Cardiac: MIRZA Objective Data Data Vital Signs Date Time Temp Pulse Resp B/P (MAP) Pulse Ox O2 Delivery O2 Flow Rate FiO2 12/05/16 12:00 98.3 95 16 106/55 (72) 100 12/05/16 08:10 Room Air 12/05/16 08:10 96 12/05/16 08:00 99.5 93 16 109/61 (77) 98 12/05/16 04:00 100.6 96 18 102/60 (74) 95 12/05/16 04:00 Room Air 12/05/16 00:43 100.6 104 18 97/60 (72) 100 12/05/16 00:00 Room Air 12/04/16 20:17 99.6 101 18 91/52 (65) 100 12/04/16 20:00 94 12/04/16 20:00 Room Air -: 12/05/16 0510 12/05/16 0510 Physical Exam General Appearance: No Acute Distress, Comfortable Eyes Eye Exam: Pupils Equal Throat Throat Exam: Oral Mucosa [place] & Moist Pulmonary Resp Exam: Breath Sounds Equal, No Distress, Rhonchi, Decreased Bases Cardiology CV Exam: Regular, Normal Sinus Rhythm Gastrointestinal/Abdomen GI Exam: Soft, Non-Tender, Bowel Sounds Present Extremeties Extremities Exam: No Edema Neurologic Neuro Exam: Alert, Awake, Oriented Psychiatric Psych Exam: Appropriate Responses Assessment/Plan Assessment Summary: MIKE/Acute Renal Failure Problem List: (1) Renal failure ICD Codes: N19 - Unspecified kidney failure Status: Acute (2) Sepsis ICD Codes: A41.9 - Sepsis, unspecified organism Status: Acute (3) Open wound of scrotum ICD Codes: S31.30XA - Unspecified open wound of scrotum and testes, initial encounter Status: Acute Plan c/o blurry vision left eye Remain non oliguric. SPEP was negative. Complements normal, other serology also negative. BP is better, on Metoprolol to 50 mg BID. If renal function will not improve, will consider Renal Biopsy once infection is controlled. Fever pattern is better, ID is following. Now on Bactrim, Acyclovir, Clarithromycin and Ethambutol. No improvement in renal function. Possibly has End stage renal disease. Got PermCath. Kidney Biopsy done, I was called with the result by phone. It has inadequate tissue for diagnosis. Will need repeat kidney Biopsy once fever is resolved. HD in AM. Problem Qualifiers (1) Renal failure: (2) Sepsis: Kwadwo Shah MD Dec 05, 2016 17:08
[2016-12-06] VITALS: BP 103/57; PULSE 90; RESP 20; TEMP 99.4; O2SAT 99
[2016-12-06] MEDS: HEPARIN SODIUM - SQ 10,000 UNITS/ML VIAL SQ SCH ×2 (03:37→16:34)
[2016-12-06 04:00] VITALS: BP 105/58; PULSE 97; RESP 18; TEMP 98.4; O2SAT 100
[2016-12-06 08:00] VITALS: BP 103/61; PULSE 87; PULSE 88; RESP 16; TEMP 98.6; O2SAT 99
[2016-12-06] MEDS: SODIUM CHLORIDE 0.9% FLUSH 10 ML FLUSH IV FLUSH SCH ×2 (09:00→20:39)
--- NOTE | 2016-12-06 09:19 | HHI.NPPN ---
Subjective History of Present Illness 50-year-old male with past medical history of HIV disease for more than 20 years and history of renal stone who came to the hospital with complaint of back pain. The patient has back pain going on for the last 2 months off and on and he came to the emergency department yesterday with worsening pain. Additional Remarks Patient is alert, now on HD, no SOB, has weakness. Review of Systems General Constitutional: Fatigue Cardiovascular Cardiac: MIRZA Objective Data Data Vital Signs Date Time Temp Pulse Resp B/P (MAP) Pulse Ox O2 Delivery O2 Flow Rate FiO2 12/06/16 08:00 98.6 88 16 103/61 (75) 99 Manual Cuff/Palpation 12/06/16 04:00 Room Air 12/06/16 04:00 98.4 97 18 105/58 (74) 100 12/06/16 00:00 Room Air 12/06/16 00:00 99.4 90 20 103/57 (72) 99 12/05/16 20:00 99 12/05/16 20:00 99.5 95 20 118/72 (87) 100 12/05/16 20:00 Room Air 12/05/16 16:00 98.9 91 16 106/59 (75) 99 12/05/16 16:00 98.9 91 16 106/59 (75) 99 12/05/16 12:00 98.3 95 16 106/55 (72) 100 -: 12/05/16 0510 12/05/16 0510 Physical Exam General Appearance: No Acute Distress, Comfortable Eyes Eye Exam: Pupils Equal Throat Throat Exam: Oral Mucosa [place] & Moist Pulmonary Resp Exam: Breath Sounds Equal, No Distress, Rhonchi, Decreased Bases Cardiology CV Exam: Regular, Normal Sinus Rhythm Gastrointestinal/Abdomen GI Exam: Soft, Non-Tender, Bowel Sounds Present Extremeties Extremities Exam: No Edema Neurologic Neuro Exam: Alert, Awake, Oriented Psychiatric Psych Exam: Appropriate Responses Assessment/Plan Assessment Summary: MIKE/Acute Renal Failure Problem List: (1) Renal failure ICD Codes: N19 - Unspecified kidney failure Status: Acute (2) Sepsis ICD Codes: A41.9 - Sepsis, unspecified organism Status: Acute (3) Open wound of scrotum ICD Codes: S31.30XA - Unspecified open wound of scrotum and testes, initial encounter Status: Acute Plan c/o blurry vision left eye Remain non oliguric. SPEP was negative. Complements normal, other serology also negative. BP is better, on Metoprolol to 50 mg BID. If renal function will not improve, will consider Renal Biopsy once infection is controlled. Fever pattern is better, ID is following. Now on Bactrim, Acyclovir, Clarithromycin and Ethambutol. No improvement in renal function. Possibly has End stage renal disease. Got PermCath. Kidney Biopsy done, I was called with the result by phone. It has inadequate tissue for diagnosis. Will need repeat kidney Biopsy once fever is resolved. HD now, I will see official report of the Biopsy and possible repeat Kidney Biopsy. Problem Qualifiers (1) Renal failure: (2) Sepsis: Kwadwo Shah MD Dec 06, 2016 09:18
[2016-12-06] MEDS: GENTAMICIN SULFATE (DIALYSIS USE ONLY) 20 MG/2 ML VIAL IV PRN (11:10)
[2016-12-06] MEDS: HEPARIN SODIUM - IV 10,000 UNITS/10 ML VIAL IVF PRN (11:10)
[2016-12-06] MEDS: EPOETIN ALFA 10,000 UNITS/ML VIAL IV PRN (11:11)
[2016-12-06] MEDS: ETHAMBUTOL HCL 400 MG TAB PO SCH (13:51)
[2016-12-06] MEDS: CLARITHROMYCIN 500 MG TAB PO SCH ×2 (13:51→20:39)
[2016-12-06] MEDS: DOCUSATE SODIUM 50 MG/SENNA 8.6 MG TAB PO SCH ×2 (13:51→20:39)
[2016-12-06] MEDS: LACTOBACILLUS ACIDOPHILUS TAB PO SCH ×2 (13:51→20:39)
[2016-12-06] MEDS: FLUCONAZOLE 100 MG TAB PO SCH (13:51)
--- NOTE | 2016-12-06 14:05 | HHI.PR ---
Subjective Remarks Written by Patrizia Guillen, acting as scribe for Dr. Shaver on 12/06/16 at 13:57. 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 Patient seen and examined. Had HD today, tolerated well. Fatigued today. Denies any new acute complaints. Requesting [place] paperwork. Eating well. Denies any fever, chills, cough, sore throat, abdominal pain, nausea, vomiting, diarrhea or dysuria. Objective Vitals Vital Signs Date Time Temp Pulse Resp B/P (MAP) Pulse Ox O2 Delivery O2 Flow Rate FiO2 12/06/16 08:00 98.6 88 16 103/61 (75) 99 Manual Cuff/Palpation 12/06/16 08:00 100 Room Air 12/06/16 04:00 Room Air 12/06/16 04:00 98.4 97 18 105/58 (74) 100 12/06/16 00:00 Room Air 12/06/16 00:00 99.4 90 20 103/57 (72) 99 12/05/16 20:00 99 12/05/16 20:00 99.5 95 20 118/72 (87) 100 12/05/16 20:00 Room Air 12/05/16 16:00 98.9 91 16 106/59 (75) 99 12/05/16 16:00 98.9 91 16 106/59 (75) 99 I/O 12/05/16 12/05/16 12/05/16 12/06/16 12/06/16 12/06/16 07:00 15:00 23:00 07:00 15:00 23:00 Intake Total 540 ml Output Total 550 ml 350 ml 500 ml 1200 ml Balance -550 ml 190 ml -500 ml -1200 ml Intake Oral 540 ml Output Urine Total 550 ml 350 ml 500 ml Hemodialysis 1200 ml # Bowel Movements 0 Result Diagram: 12/05/16 0510 12/05/16 0510 Imaging Last Impressions Renal Biopsy CT 12/01/16 0600 Signed Impressions: Service Date/Time: November 14:17 - CONCLUSION: Uncomplicated CT guided biopsy. Alexis Adhikari MD Central Venous Line 11/29/16 0000 Signed Impressions: Service Date/Time: Tuesday, November 29, 2016 00:00 - CONCLUSION: Uncomplicated catheter removal. Solitario Diaz MD Catheter Placement X-Ray 11/29/16 0000 Signed Impressions: Service Date/Time: Tuesday, November 29, 2016 13:58 - CONCLUSION: Uncomplicated PermaCath placement as above. Solitario Diaz MD Tumor Localization 11/14/16 0000 Signed Impressions: Service Date/Time: Monday, November 14, 2016 11:38 - CONCLUSION: Negative scan Solitario Diaz MD Chest X-Ray 11/13/16 0000 Signed Impressions: Service Date/Time: Sunday, November 13, 2016 16:02 - CONCLUSION: No acute cardiopulmonary disease. Quincy Medellin MD Renal Ultrasound 11/05/16 0000 Signed Impressions: Service Date/Time: Saturday, November 05, 2016 19:17 - CONCLUSION: Diffusely echogenic kidneys indicating medical renal disease. Dorian Murry MD Abdomen/Pelvis CT 11/05/16 0000 Signed Impressions: Service Date/Time: Saturday, November 05, 2016 17:19 - CONCLUSION: 1. 4 mm calculus in the right renal pelvis/ureteropelvic junction with mild adjacent perinephric/periureteral stranding. No evidence of hydronephrosis. 2. 1 cm round hypodensity in the anterior right mid kidney statistically most likely to represent a cyst. 3. 3.7 cm hypodensity in the right lobe of the liver air the dome of the diaphragm. This finding is nonspecific on noncontrast CT. The most likely etiologies include hemangioma and cyst. It could be further evaluated with ultrasound nonemergent followup MRI of the abdomen. 4. Mild dilated proximal right common iliac artery. Dorian Murry MD Objective Remarks GENERAL: Well-developed well-nourished. In no acute distress. SKIN: Warm and dry. No lesions noted. No rash. Right vas cath noted. HEENT: Normocephalic. Pupils equal and round and reactive to light. EOMs intact. CARDIOVASCULAR: Regular rate and rhythm. No murmur appreciated. RESPIRATORY: No accessory muscle use. Clear to auscultation. Breath sounds equal bilaterally. GASTROINTESTINAL: Abdomen soft, non-tender, nondistended. Bowel sounds x4. MUSCULOSKELETAL: No obvious deformities. No clubbing or cyanosis. No edema. NEUROLOGICAL: Awake and alert. No focal neurological deficits. Moves upper and lower extremities spontaneously. Normal speech. Strength 5/5. PSYCHIATRIC: Appropriate mood and affect; insight and judgment normal. Procedures 11/14/16 hemodialysis catheter placement, right internal jugular A/P Problem List: (1) Renal failure ICD Code: N19 - Unspecified kidney failure Status: Acute (2) Sepsis ICD Code: A41.9 - Sepsis, unspecified organism Status: Acute (3) UTI (urinary tract infection) ICD Code: N39.0 - Urinary tract infection, site not specified (4) Chronic kidney disease, stage V ICD Code: N18.5 - Chronic kidney disease, stage 5 (5) HIV (human immunodeficiency virus infection) ICD Code: B20 - Human immunodeficiency virus [HIV] disease (6) Anemia ICD Code: D64.9 - Anemia, unspecified (7) Hypertension ICD Code: I10 - Essential (primary) hypertension (8) Medical non-compliance ICD Code: Z91.19 - Patient's noncompliance with other medical treatment and regimen Assessment and Plan Severe sepsis secondary to UTI, pneumonia - Status post treatment with Zosyn. Patient is immunocompromised, noncompliant with HAART for the last 2 months. - HSV positive. 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 Blood mycobacterial culture growing acid fast organism. Afebrile. - Continue Levaquin. Continue PCP prophylaxis. Fever: Resolved. Will repeat blood cultures if temp increases >100.9. Will follow. Acute renal failure superimposed on chronic kidney disease stage V - Nephrology following, remains non-oliguric. - SPEP, serology negative. Creatinine improving some. - HD per nephrology. - Renal biopsy done with results showing inadequate tissue for diagnosis, will need repeat biopsy once fever is resolved. HIV/AIDS - CD4 count less than 20. Patient admitted to being noncompliant with HAART meds for the last 2 months. He has been counseled. 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 ID following patient, does not believe to be Ethambutol induced. CMV Labs ordered and pending. Follow. - [employer] came to see patient recommending a retina consult. Awaiting input. Nephrology following patient and monitoring medications. Oral thrush, improved: Continue Diflucan, end date 12/10/16. Anemia - Hemoglobin dropped from 8.5-->7.3-->7.2-->7.1. Received transfusion of 2 units PRBCs on 11/16/16. Will refer to nephrology for transfusion orders. Will transfuse if hemoglobin drops less than 7.0. CBC today, pending. Hypertension, tachycardia: Continue metoprolol. Heart rate controlled. Buttock, perirectal wounds: HSV positive. Valtrex end date 11/22. Then chronic suppression with acyclovir. DVT prophylaxis: Heparin. This note was transcribed by edy ACKERMAN. I, Dr. Zulma Shaver personally performed the history, physical exam, and medical decision making; and confirmed the accuracy of the information in the transcribed note. Authenticated by Dr. Zulma Shaver on 12/06/16 at 13:57. Problem Qualifiers (1) Renal failure: (2) Sepsis: Patrizia Guillen Dec 06, 2016 14:05 Zulma Shaver MD Dec 06, 2016 14:48
--- NOTE | 2016-12-06 14:17 | HHI.IDPN ---
Subjective Subjective Remarks Patient is a 50-year-old male, with known HIV, end stage AIDS, non compliant He presented with multiple complaints and was diagnosed with disseminated MAC, ARF He was started on Bix, ethambutol for MAC, BC with AFB, no ID yet Has been afebrile since EMB started Has been getting HD T-- had renal biopsy and results pending C/O blurry vision Ophtha eval showed CMV retinitis Started on IV Ganciclovir 12/04 No change in vision complaints Temps better Had HD today Renal notes reviewed - kidney biopsy not enough for Dx May need repeat biopsy Repeat CMV PCR pending No new complaint No resp complaint No diarrhea No N/V No complaint No pain at biopsy site Antibiotics Levaquin Biaxin Ethambutol fluconazole Bactrim PCP prophylaxis Ganciclovir IV Lines permacath Past Medical History HIV, for 20+years, noncompliant with medications for the past 2 months Kidney stones Allergies: Coded Allergies: No Known Allergies (Unverified , 11/05/16) Objective . Vital Signs Date Time Temp Pulse Resp B/P (MAP) Pulse Ox O2 Delivery O2 Flow Rate FiO2 12/06/16 08:00 98.6 88 16 103/61 (75) 99 Manual Cuff/Palpation 12/06/16 08:00 100 Room Air 12/06/16 04:00 Room Air 12/06/16 04:00 98.4 97 18 105/58 (74) 100 12/06/16 00:00 Room Air 12/06/16 00:00 99.4 90 20 103/57 (72) 99 12/05/16 20:00 99 12/05/16 20:00 99.5 95 20 118/72 (87) 100 12/05/16 20:00 Room Air 12/05/16 16:00 98.9 91 16 106/59 (75) 99 12/05/16 16:00 98.9 91 16 106/59 (75) 99 12/06/16 12/06/16 12/07/16 15:00 23:00 07:00 Output Total 1200 ml Balance -1200 ml Hemodialysis 1200 ml . Laboratory Tests Test 12/05/16 05:10 White Blood Count 7.5 TH/MM3 Red Blood Count 2.38 MIL/MM3 Hemoglobin 7.1 GM/DL Hematocrit 21.6 % Mean Corpuscular Volume 90.7 FL Mean Corpuscular Hemoglobin 29.7 PG Mean Corpuscular Hemoglobin Concent 32.8 % Red Cell Distribution Width 15.0 % Platelet Count 121 TH/MM3 Mean Platelet Volume 8.6 FL Neutrophils (%) (Auto) 86.0 % Lymphocytes (%) (Auto) 2.5 % Monocytes (%) (Auto) 11.0 % Eosinophils (%) (Auto) 0.1 % Basophils (%) (Auto) 0.4 % Neutrophils # (Auto) 6.5 TH/MM3 Lymphocytes # (Auto) 0.2 TH/MM3 Monocytes # (Auto) 0.8 TH/MM3 Eosinophils # (Auto) 0.0 TH/MM3 Basophils # (Auto) 0.0 TH/MM3 CBC Comment AUTO DIFF Differential Total Cells Counted 100 Neutrophils % (Manual) 84 % Band Neutrophils % 6 % Lymphocytes % 5 % Monocytes % 5 % Neutrophils # (Manual) 6.8 TH/MM3 Differential Comment FINAL DIFF MANUAL Platelet Estimate LOW Platelet Morphology Comment NORMAL Ovalocytes 1+ Laboratory Tests Test 12/05/16 05:10 Blood Urea Nitrogen 42 MG/DL Creatinine 7.80 MG/DL Random Glucose 98 MG/DL Calcium Level 8.6 MG/DL Sodium Level 133 MEQ/L Potassium Level 3.7 MEQ/L Chloride Level 96 MEQ/L Carbon Dioxide Level 26.4 MEQ/L Anion Gap 11 MEQ/L Estimat Glomerular Filtration Rate 9 ML/MIN Imaging Last Impressions Renal Biopsy CT 12/01/16 0600 Signed Impressions: Service Date/Time: November 14:17 - CONCLUSION: Uncomplicated CT guided biopsy. Alexis Adhikari MD Central Venous Line 11/29/16 0000 Signed Impressions: Service Date/Time: Tuesday, November 29, 2016 00:00 - CONCLUSION: Uncomplicated catheter removal. Solitario Diaz MD Catheter Placement X-Ray 11/29/16 0000 Signed Impressions: Service Date/Time: Tuesday, November 29, 2016 13:58 - CONCLUSION: Uncomplicated PermaCath placement as above. Solitario Diaz MD Tumor Localization 11/14/16 0000 Signed Impressions: Service Date/Time: Monday, November 14, 2016 11:38 - CONCLUSION: Negative scan Solitario Diaz MD Chest X-Ray 11/13/16 0000 Signed Impressions: Service Date/Time: Sunday, November 13, 2016 16:02 - CONCLUSION: No acute cardiopulmonary disease. Quincy Medellin MD Renal Ultrasound 11/05/16 0000 Signed Impressions: Service Date/Time: Saturday, November 05, 2016 19:17 - CONCLUSION: Diffusely echogenic kidneys indicating medical renal disease. Dorian Murry MD Abdomen/Pelvis CT 11/05/16 0000 Signed Impressions: Service Date/Time: Saturday, November 05, 2016 17:19 - CONCLUSION: 1. 4 mm calculus in the right renal pelvis/ureteropelvic junction with mild adjacent perinephric/periureteral stranding. No evidence of hydronephrosis. 2. 1 cm round hypodensity in the anterior right mid kidney statistically most likely to represent a cyst. 3. 3.7 cm hypodensity in the right lobe of the liver air the dome of the diaphragm. This finding is nonspecific on noncontrast CT. The most likely etiologies include hemangioma and cyst. It could be further evaluated with ultrasound nonemergent followup MRI of the abdomen. 4. Mild dilated proximal right common iliac artery. Dorian Murry MD Physical Exam GENERAL: awake and alert, not in respiratory distress. SKIN: Warm and dry. NO rash HEAD: Atraumatic. Normocephalic. No temporal wasting, or tenderness. EYES: [place] conjunctiva. No petechia or hemorrhage. No scleral icterus. No injection or drainage. EARS, NOSE AND THROAT: Nose without bleeding or purulent nasal discharge. Mucous membranes pink and moist. No oral lesions noted. No exudate. No oral thrush. NECK: Trachea midline. Supple and not tender, no meningeal signs CARDIOVASCULAR: Regular rate and rhythm. No murmurs, rubs or gallops heard RESPIRATORY: Clear to auscultation. Breath sounds equal bilaterally. No rales , wheezing or rhonchi ABDOMEN: Soft, non-tender, nondistended. Bowel sounds present and normoactive. No guarding. No rebound. No organomegaly. EXTREMITIES: No clubbing, cyanosis, or edema.No joint effusion, has good ROM. No calf tenderness. Well perfused and warm. NEUROLOGICAL: Awake alert Non-focal PSYCHIATRIC: Normal affect, calm and cooperative. LINE: Permacath in place R IJ , No evidence of infection Assessment & Plan Remarks IMPRESSION Fevers, on initial presentation, resolved - likely due to AFB in BC, likely LULU Has recurrent fevers, non-localizing Renal failure, non oliguric, not improving - HD planned- path P - frame catcher ff HIV, end stge AIDS, noncompliance Disseminated MAC Probable CMV retinintis, no evidence EThambutol toxicity per ophth eval - awaiting retinal specialist consult RECOMMENDATION Continue Levaquin Continue Biaxin Continue EMB Continue PCP prophylaxis Continue ganciclovir - will consult pharmacist for dosage Agree with retinal specialist consult Follow repeat CMV PCR - initial PCR was negative Will also check CMV antibody Monitor temps Await renal biopsy result - per renal may need repeat biopsy Monitor progress Explained plan to the patient Bozena Chambers MD Dec 06, 2016 14:17
[2016-12-06 16:00] VITALS: BP 94/55; PULSE 98; RESP 18; TEMP 98.8; O2SAT 100
[2016-12-06] MEDS: LEVOFLOXACIN 250 MG TAB PO SCH (16:34)
[2016-12-06 18:34] LABS: AUTOMATED NEUTROPHIL # 4.4 TH/MM3 (1.8-7.7); BASOPHIL % 0.5 % (0.0-2.0); EOSINOPHIL % 0.3 % (0.0-4.0); HEMATOCRIT 21.7 % (39.0-51.0); LYMPHOCYTE # 0.1 TH/MM3 (1.0-4.8); MEAN CORPUSCULAR HEMOGLOBIN 30.2 PG (27.0-34.0); MONO % 10.1 % (0.0-8.0); NEUT % 87.1 % (16.0-70.0); PLATELET COUNT 116 TH/MM3 (150-450); RED BLOOD COUNT 2.43 MIL/MM3 (4.50-5.90); RED CELL DISTRIBUTION WIDTH 14.4 % (11.6-17.2); WHITE BLOOD COUNT 5.1 TH/MM3 (4.0-11.0)
[2016-12-06 18:35] LABS: HEMO FLAGS AUTO DIFF
[2016-12-06 18:55] LABS: BICARBONATE 32.3 MEQ/L (21.0-32.0); POTASSIUM 3.7 MEQ/L (3.5-5.1)
[2016-12-06 20:00] VITALS: BP 99/61; PULSE 90; PULSE 91; RESP 16; TEMP 100.3; O2SAT 100
[2016-12-06 20:14] LABS: ACANTHOCYTES OCC (NORMAL); PLATELET ESTIMATE SMEAR LOW (NORMAL); PLATELET MORPHOLOGY NORMAL (NORMAL); SCAN/DIFF AUTO DIFF CONFIRMED
[2016-12-07] VITALS (7 sets, daily range): BP systolic 95–162; BP diastolic 50–72; PULSE 81–92; RESP 16–20; TEMP 97.7–99.6; O2SAT 99–100
[2016-12-07] MEDS: HEPARIN SODIUM - SQ 10,000 UNITS/ML VIAL SQ SCH ×2 (05:00→16:25)
[2016-12-07] MEDS: DOCUSATE SODIUM 50 MG/SENNA 8.6 MG TAB PO SCH ×2 (09:00→20:48)
[2016-12-07] MEDS: ETHAMBUTOL HCL 400 MG TAB PO SCH (10:50)
[2016-12-07] MEDS: LACTOBACILLUS ACIDOPHILUS TAB PO SCH ×2 (10:50→20:47)
[2016-12-07] MEDS: FLUCONAZOLE 100 MG TAB PO SCH (10:50)
[2016-12-07] MEDS: SODIUM CHLORIDE 0.9% FLUSH 10 ML FLUSH IV FLUSH SCH ×2 (10:51→20:48)
[2016-12-07] MEDS: CLARITHROMYCIN 500 MG TAB PO SCH ×2 (10:51→20:47)
[2016-12-07] MEDS: SULFAMETHOXAZOLE-TRIMETHOPRIM DS 800-160 MG TAB PO SCH (10:51)
--- NOTE | 2016-12-07 10:52 | RADRPT ---
EXAM DATE/TIME: 12/07/2016 10:02 [facility] COMPARISON: No previous studies available for comparison. INDICATIONS : Arteriovenous fistula placement. MEDICAL HISTORY : HIV. Renal calculi. Abdominal pain. Nausea/vomiting. SURGICAL HISTORY : None. ENCOUNTER: Initial ACUITY: 1 day PAIN SCORE: 0/10 LOCATION: Left arm. FINDINGS: There is spontaneous flow documented in the brachial, basilic, cephalic, axillary, and subclavian vei ns. The vessels are compressible and augmentation response is documented. No filling defects are se en. The flow is phasic with respiration. Direction of flow in the jugular vein is caudal. CONCLUSION: Negative for thrombosis. Enzo Isbell MD FACR on December 07, 2016 at 10:50 Board Certified Radiologist. This report was verified electronically.
--- NOTE | 2016-12-07 10:53 | RADRPT ---
EXAM DATE/TIME: 12/07/2016 10:11 [facility] COMPARISON: No previous studies available for comparison. INDICATIONS : Arteriovenous fistula placement. MEDICAL HISTORY : HIV. Renal calculi. Abdominal pain. Nausea/vomiting. SURGICAL HISTORY : None. ENCOUNTER: Initial ACUITY: 1 day PAIN SCORE: 0/10 LOCATION: Left arm. CEPHALIC: ORIGIN: 2 mm MID-ARM: 1 mm ELBOW: 1 mm FOREARM: 2 mm WRIST: 2 mm BASILIC: ORIGIN: 4 mm MID-ARM: 4 mm ELBOW: 3 mm ARTERIES: BRACHIAL: 4 mm ULNAR: 2 mm RADIAL: 1 mm VEINS: RADIAL: 1 mm ULNAR: 2 mm FINDINGS: The venous system of the upper extremity is patent by color Doppler imaging. Measurements of the arm veins (in mm) are listed above. CONCLUSION: Venous mapping as above. Enzo Isbell MD FACR on December 07, 2016 at 10:51 Board Certified Radiologist. This report was verified electronically.
--- NOTE | 2016-12-07 11:13 | PD.CAR.PN ---
CVT Progress Note Subjective/Hospital Course: Patient with extensive medical history including poorly controlled AIDS and recurrent bouts of sepsis and weight loss Currently in renal failure and requiring dialysis access in form of an AV fistula Will review the venous mapping and see if patient has any adequate veins for the procedure however if not patient will require a bovine vein graft Patient is extremely poor candidate for any procedure and it should be noted that his surgery associated with significant risk Arm block with sedation will probably the best option in this situation Barring any unforeseen problems patient is scheduled for AV fistula surgery tomorrow Objective: Vital Signs Date Time Temp Pulse Resp B/P (MAP) Pulse Ox O2 Delivery O2 Flow Rate FiO2 12/07/16 08:00 98.9 87 18 106/57 (73) 100 12/07/16 04:00 99.6 87 16 162/70 (100) 100 12/07/16 00:00 99.4 89 16 111/72 (85) 100 12/06/16 20:00 100.3 91 16 99/61 (74) 100 12/06/16 20:00 Room Air 12/06/16 20:00 90 12/06/16 16:00 98.8 98 18 94/55 (68) 100 Result Diagram: 12/06/16 1753 12/06/16 1753 Damián Karimi MD Dec 07, 2016 11:13
--- NOTE | 2016-12-07 14:31 | HHI.PR ---
Subjective Remarks Written by Patrizia Guillen, acting as scribe for Dr. Shaver on 12/07/16 at 14:27. 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 Patient seen and examined lying in bed comfortably. States he is hungry. Denies any new acute complaints overnight. Pain well controlled. Continued visual field loss in left eye. Denies any recent fever, chills, cough , shortness of breath, ab pain, n/v/d, or dysuria. Venous mapping today by Dr. Smart for AVF placement. Objective Vitals Vital Signs Date Time Temp Pulse Resp B/P (MAP) Pulse Ox O2 Delivery O2 Flow Rate FiO2 12/07/16 12:00 97.7 85 20 102/56 (71) 100 12/07/16 09:00 99 Room Air 12/07/16 08:00 98.9 87 18 106/57 (73) 100 12/07/16 04:00 99.6 87 16 162/70 (100) 100 12/07/16 00:00 99.4 89 16 111/72 (85) 100 12/06/16 20:00 100.3 91 16 99/61 (74) 100 12/06/16 20:00 Room Air 12/06/16 20:00 90 12/06/16 16:00 98.8 98 18 94/55 (68) 100 I/O 12/06/16 12/06/16 12/06/16 12/07/16 12/07/16 12/07/16 07:00 15:00 23:00 07:00 15:00 23:00 Intake Total 240 ml Output Total 500 ml 1200 ml 325 ml 300 ml Balance -500 ml -1200 ml -85 ml -300 ml Intake Oral 240 ml Output Urine Total 500 ml 325 ml 300 ml Hemodialysis 1200 ml # Bowel Movements 1 Result Diagram: 12/06/16 1753 12/06/16 1753 Imaging Last Impressions Upper Extremity Ultrasound 12/07/16 0000 Signed Impressions: Service Date/Time: Wednesday, December 07, 2016 10:11 - CONCLUSION: Venous mapping as above. Enzo Isbell MD FACR Renal Biopsy CT 12/01/16 0600 Signed Impressions: Service Date/Time: November 14:17 - CONCLUSION: Uncomplicated CT guided biopsy. Alexis Adhikari MD Central Venous Line 11/29/16 Signed Impressions: Service Date/Time: Tuesday, November 29, 2016 00:00 - CONCLUSION: Uncomplicated catheter removal. Solitario Diaz MD Catheter Placement X-Ray 11/29/16 Signed Impressions: Service Date/Time: Tuesday, November 29, 2016 13:58 - CONCLUSION: Uncomplicated PermaCath placement as above. Solitario Diaz MD Tumor Localization 11/14/16 Signed Impressions: Service Date/Time: Monday, November 14, 2016 11:38 - CONCLUSION: Negative scan Solitario Diaz MD Chest X-Ray 11/13/16 Signed Impressions: Service Date/Time: Sunday, November 13, 2016 16:02 - CONCLUSION: No acute cardiopulmonary disease. Quincy Medellin MD Renal Ultrasound 11/05/16 Signed Impressions: Service Date/Time: Saturday, November 05, 2016 19:17 - CONCLUSION: Diffusely echogenic kidneys indicating medical renal disease. Dorian Murry MD Abdomen/Pelvis CT 11/05/16 Signed Impressions: Service Date/Time: Saturday, November 05, 2016 17:19 - CONCLUSION: 1. 4 mm calculus in the right renal pelvis/ureteropelvic junction with mild adjacent perinephric/periureteral stranding. No evidence of hydronephrosis. 2. 1 cm round hypodensity in the anterior right mid kidney statistically most likely to represent a cyst. 3. 3.7 cm hypodensity in the right lobe of the liver air the dome of the diaphragm. This finding is nonspecific on noncontrast CT. The most likely etiologies include hemangioma and cyst. It could be further evaluated with ultrasound nonemergent followup MRI of the abdomen. 4. Mild dilated proximal right common iliac artery. Dorian Murry MD Objective Remarks GENERAL: Well-developed well-nourished. In no acute distress. SKIN: Warm and dry. No lesions noted. No rash. Right vas cath noted. HEENT: Normocephalic. Pupils equal and round and reactive to light. EOMs intact. CARDIOVASCULAR: Regular rate and rhythm. No murmur appreciated. RESPIRATORY: No accessory muscle use. Clear to auscultation. Breath sounds equal bilaterally. GASTROINTESTINAL: Abdomen soft, non-tender, nondistended. Bowel sounds x4. MUSCULOSKELETAL: No obvious deformities. No clubbing or cyanosis. No edema. NEUROLOGICAL: Awake and alert. No focal neurological deficits. Moves upper and lower extremities spontaneously. Normal speech. Strength 5/5. PSYCHIATRIC: Appropriate mood and affect; insight and judgment normal. Procedures 11/14/16 hemodialysis catheter placement, right internal jugular A/P Problem List: (1) Renal failure ICD Code: N19 - Unspecified kidney failure Status: Acute (2) Sepsis ICD Code: A41.9 - Sepsis, unspecified organism Status: Acute (3) UTI (urinary tract infection) ICD Code: N39.0 - Urinary tract infection, site not specified (4) Chronic kidney disease, stage V ICD Code: N18.5 - Chronic kidney disease, stage 5 (5) HIV (human immunodeficiency virus infection) ICD Code: B20 - Human immunodeficiency virus [HIV] disease (6) Anemia ICD Code: D64.9 - Anemia, unspecified (7) Hypertension ICD Code: I10 - Essential (primary) hypertension (8) Medical non-compliance ICD Code: Z91.19 - Patient's noncompliance with other medical treatment and regimen Assessment and Plan Severe sepsis secondary to UTI, pneumonia - Status post treatment with Zosyn. Patient is immunocompromised, noncompliant with HAART for the last 2 months. - HSV positive. 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 Blood mycobacterial culture growing acid fast organism. Afebrile. - Continue Levaquin. Continue PCP prophylaxis. Fever: TMAX 100.2 overnight. Will repeat blood cultures if temp increases > 100.9. Will follow. Acute renal failure superimposed on chronic kidney disease stage V - Nephrology following, remains non-oliguric. - SPEP, serology negative. Creatinine improving some. - HD per nephrology. - Renal biopsy done with results showing inadequate tissue for diagnosis, will need repeat biopsy once fever is resolved. - Consult placed to Dr. Bing gutiérrez for venous mapping and plan for AVF in am. NPO after midnight. HIV/AIDS - CD4 count less than 20. Patient admitted to being noncompliant with HAART meds for the last 2 months. He has been counseled. 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 ID following patient, does not believe to be Ethambutol induced. CMV Labs ordered and pending. Follow. - [employer] came to see patient recommending a retina consult. Awaiting input. Nephrology following patient and monitoring medications. Oral thrush, improved: Continue Diflucan, end date 12/10/16. Anemia - Hemoglobin dropped from 8.5-->7.3-->7.2-->7.1. Received transfusion of 2 units PRBCs on 11/16/16. Will refer to nephrology for transfusion orders. Will transfuse if hemoglobin drops less than 7.0. CBC today, pending. Hypertension, tachycardia: Continue metoprolol. Heart rate controlled. Buttock, perirectal wounds: HSV positive. Valtrex end date 11/22. Then chronic suppression with acyclovir. DVT prophylaxis: Heparin. This note was transcribed by edy NASSAR . I, Dr. Zulma Shaver personally performed the history, physical exam, and medical decision making; and confirmed the accuracy of the information in the transcribed note. Authenticated by Dr. Zulma Shaver on 12/07/16 at 14:27. Problem Qualifiers (1) Renal failure: (2) Sepsis: Patrizia Guillen Dec 07, 2016 14:31 Zulma Shaver MD Dec 07, 2016 17:17
--- NOTE | 2016-12-07 16:10 | HHI.NPPN ---
Subjective History of Present Illness 50-year-old male with past medical history of HIV disease for more than 20 years and history of renal stone who came to the hospital with complaint of back pain. The patient has back pain going on for the last 2 months off and on and he came to the emergency department yesterday with worsening pain. Additional Remarks Patient is alert, has low grade fever last night, now better. Review of Systems General Constitutional: Fatigue Cardiovascular Cardiac: MIRZA Objective Data Data Vital Signs Date Time Temp Pulse Resp B/P (MAP) Pulse Ox O2 Delivery O2 Flow Rate FiO2 12/07/16 12:00 97.7 85 20 102/56 (71) 100 12/07/16 09:00 99 Room Air 12/07/16 08:00 98.9 87 18 106/57 (73) 100 12/07/16 04:00 99.6 87 16 162/70 (100) 100 12/07/16 00:00 99.4 89 16 111/72 (85) 100 12/06/16 20:00 100.3 91 16 99/61 (74) 100 12/06/16 20:00 Room Air 12/06/16 20:00 90 -: 12/06/16 1753 12/06/16 1753 Physical Exam General Appearance: No Acute Distress, Comfortable Eyes Eye Exam: Pupils Equal Throat Throat Exam: Oral Mucosa [place] & Moist Pulmonary Resp Exam: Breath Sounds Equal, No Distress, Rhonchi, Decreased Bases Cardiology CV Exam: Regular, Normal Sinus Rhythm Gastrointestinal/Abdomen GI Exam: Soft, Non-Tender, Bowel Sounds Present Extremeties Extremities Exam: No Edema Neurologic Neuro Exam: Alert, Awake, Oriented Psychiatric Psych Exam: Appropriate Responses Assessment/Plan Assessment Summary: MIKE/Acute Renal Failure Problem List: (1) Renal failure ICD Codes: N19 - Unspecified kidney failure Status: Acute (2) Sepsis ICD Codes: A41.9 - Sepsis, unspecified organism Status: Acute (3) Open wound of scrotum ICD Codes: S31.30XA - Unspecified open wound of scrotum and testes, initial encounter Status: Acute Plan c/o blurry vision left eye Remain non oliguric. SPEP was negative. Complements normal, other serology also negative. BP is better, on Metoprolol to 50 mg BID. If renal function will not improve, will consider Renal Biopsy once infection is controlled. Fever pattern is better, ID is following. Now on Bactrim, Acyclovir, Clarithromycin and Ethambutol. No improvement in renal function. Possibly has End stage renal disease. Got PermCath. 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 No need to repeat the renal Biopsy as clinically he is showing no improvement, and the with advance HIV , the treatment options are limited, cannot be given immunosuppressive drugs. I discussed this in detal with patient. Now he change his mind and want to go for PD. Will cancel AVF and get PD Catheter. Problem Qualifiers (1) Renal failure: (2) Sepsis: Kwadwo Shah MD Dec 07, 2016 16:10
[2016-12-07] MEDS: LEVOFLOXACIN 250 MG TAB PO SCH (16:24)
[2016-12-08] VITALS: BP 103/53; PULSE 85; RESP 18; TEMP 98.4; O2SAT 100
[2016-12-08 04:00] VITALS: BP 109/57; PULSE 85; RESP 20; TEMP 98.7; O2SAT 100
[2016-12-08] MEDS: HEPARIN SODIUM - SQ 10,000 UNITS/ML VIAL SQ SCH ×2 (05:00→18:16)
[2016-12-08 08:00] VITALS: BP 99/55; PULSE 84; PULSE 88; RESP 16; TEMP 98.5; O2SAT 100
[2016-12-08] MEDS: ALBUMIN HUMAN 25% 25 GM/100 ML BAGP IV PRN (08:52)
[2016-12-08] MEDS: GENTAMICIN SULFATE (DIALYSIS USE ONLY) 20 MG/2 ML VIAL IV PRN ×2 (08:53→10:57)
[2016-12-08] MEDS: HEPARIN SODIUM - IV 10,000 UNITS/10 ML VIAL PRN ×2 (08:53→10:57)
[2016-12-08] MEDS: SODIUM CHLORIDE 0.9% FLUSH 10 ML FLUSH IV FLUSH SCH ×2 (09:00→21:29)
[2016-12-08] MEDS: DOCUSATE SODIUM 50 MG/SENNA 8.6 MG TAB PO SCH ×2 (09:00→21:00)
[2016-12-08 09:20] LABS: AUTOMATED NEUTROPHIL # 4.8 TH/MM3 (1.8-7.7); BASOPHIL % 0.5 % (0.0-2.0); EOSINOPHIL % 0.6 % (0.0-4.0); LYMPH % 2.6 % (9.0-44.0); LYMPHOCYTE # 0.1 TH/MM3 (1.0-4.8); MEAN CELL VOLUME 88.3 FL (80.0-100.0); MEAN CORPUSCULAR HEMOGLOBIN 29.6 PG (27.0-34.0); MEAN CORPUSCULAR HGB CONC 33.5 % (32.0-36.0); MONO % 12.5 % (0.0-8.0); NEUT % 83.8 % (16.0-70.0); PLATELET COUNT 124 TH/MM3 (150-450); RED BLOOD COUNT 2.25 MIL/MM3 (4.50-5.90); RED CELL DISTRIBUTION WIDTH 14.8 % (11.6-17.2); WHITE BLOOD COUNT 5.8 TH/MM3 (4.0-11.0)
[2016-12-08 09:28] LABS: HEMO FLAGS AUTO DIFF
[2016-12-08 09:31] LABS: HEMATOCRIT 19.9 % (39.0-51.0)
[2016-12-08 10:07] LABS: BICARBONATE 23.7 MEQ/L (21.0-32.0); POTASSIUM 3.9 MEQ/L (3.5-5.1)
[2016-12-08 10:22] LABS: BANDS 3 % (0-6); EOSINOPHILS 2 % (0-4); NEUTROPHIL # MANUAL DIFF 5.1 TH/MM3 (1.8-7.7); POLYS (SEG NEUTROPHILS) 85 % (16-70); WBC DIFF SAMPLE 100
[2016-12-08 10:23] LABS: OVALOCYTES 1+ (NORMAL); PLATELET ESTIMATE SMEAR LOW (NORMAL); PLATELET MORPHOLOGY NORMAL (NORMAL); SCAN/DIFF FINAL DIFF MANUAL
[2016-12-08] MEDS: EPOETIN ALFA 10,000 UNITS/ML VIAL IV PRN (10:57)
[2016-12-08 12:00] VITALS: BP 110/60; PULSE 93; RESP 16; TEMP 98.5; O2SAT 100
[2016-12-08] MEDS: LACTOBACILLUS ACIDOPHILUS TAB PO SCH ×2 (13:24→21:29)
[2016-12-08] MEDS: ETHAMBUTOL HCL 400 MG TAB PO SCH (13:24)
[2016-12-08] MEDS: CLARITHROMYCIN 500 MG TAB PO SCH ×2 (13:24→21:29)
[2016-12-08] MEDS: FLUCONAZOLE 100 MG TAB PO SCH (13:25)
[2016-12-08] MEDS: cloNIDine HCL 0.1 MG TAB PO PRN (13:25)
--- NOTE | 2016-12-08 13:32 | HHI.NPPN ---
Subjective History of Present Illness 50-year-old male with past medical history of HIV disease for more than 20 years and history of renal stone who came to the hospital with complaint of back pain. The patient has back pain going on for the last 2 months off and on and he came to the emergency department yesterday with worsening pain. Additional Remarks Patient is alert, has low grade fever off and on, no SOB. Review of Systems General Constitutional: Fatigue Cardiovascular Cardiac: MIRZA Objective Data Data 12/08/16 12/09/16 19:00 07:00 Output Total 900 ml Balance -900 ml Output Urine Total 400 ml Hemodialysis 500 ml Vital Signs Date Time Temp Pulse Resp B/P (MAP) Pulse Ox O2 Delivery O2 Flow Rate FiO2 12/08/16 12:00 98.5 93 16 110/60 (77) 100 12/08/16 08:00 Room Air 12/08/16 08:00 98.5 88 16 99/55 (70) 100 12/08/16 04:00 98.7 85 20 109/57 (74) 100 12/08/16 00:00 98.4 85 18 103/53 (70) 100 12/07/16 20:00 81 12/07/16 20:00 98.6 84 16 113/59 (77) 99 12/07/16 20:00 Room Air 12/07/16 16:00 98.0 92 18 95/50 (65) 99 -: 12/08/16 0723 12/08/16 0723 Physical Exam General Appearance: No Acute Distress, Comfortable Eyes Eye Exam: Pupils Equal Throat Throat Exam: Oral Mucosa [place] & Moist Pulmonary Resp Exam: Breath Sounds Equal, No Distress, Rhonchi, Decreased Bases Cardiology CV Exam: Regular, Normal Sinus Rhythm Gastrointestinal/Abdomen GI Exam: Soft, Non-Tender, Bowel Sounds Present Extremeties Extremities Exam: No Edema Neurologic Neuro Exam: Alert, Awake, Oriented Psychiatric Psych Exam: Appropriate Responses Assessment/Plan Assessment Summary: MIKE/Acute Renal Failure Problem List: (1) Renal failure ICD Codes: N19 - Unspecified kidney failure Status: Acute (2) Sepsis ICD Codes: A41.9 - Sepsis, unspecified organism Status: Acute (3) Open wound of scrotum ICD Codes: S31.30XA - Unspecified open wound of scrotum and testes, initial encounter Status: Acute Plan c/o blurry vision left eye Remain non oliguric. SPEP was negative. Complements normal, other serology also negative. BP is better, on Metoprolol to 50 mg BID. If renal function will not improve, will consider Renal Biopsy once infection is controlled. Fever pattern is better, ID is following. Now on Bactrim, Acyclovir, Clarithromycin and Ethambutol. No improvement in renal function. Possibly has End stage renal disease. Got PermCath. 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 No need to repeat the renal Biopsy as clinically he is showing no improvement, and the with advance HIV , the treatment options are limited, cannot be given immunosuppressive drugs. I discussed this in detail with patient. Now he change his mind and want to go for PD. He understand increase risk of infection due to advance HIV. Consult surgery for PD Catheter. Problem Qualifiers (1) Renal failure: (2) Sepsis: Kwadwo Shah MD Dec 08, 2016 13:32
--- NOTE | 2016-12-08 13:39 | HHI.IDPN ---
Subjective Subjective Remarks Patient is a 50-year-old male, with known HIV, end stage AIDS, non compliant He presented with multiple complaints and was diagnosed with disseminated MAC, ARF He was started on Bix, ethambutol for MAC, BC with AFB, no ID yet Has been afebrile since EMB started Has been getting HD T- had renal biopsy and results pending C/O blurry vision Ophtha eval showed vasculitis, possible CMV retinitis Started on IV Ganciclovir 12/04 Notes reviewed No change in vision complaints Temps low grade 12/06, better Had HD today Repeat CMV PCR negative CMV Ab pending No new complaint Antibiotics Levaquin Biaxin Ethambutol fluconazole Bactrim PCP prophylaxis Ganciclovir IV Lines permacath Past Medical History HIV, for 20+years, noncompliant with medications for the past 2 months Kidney stones Allergies: Coded Allergies: No Known Allergies (Unverified , 11/05/16) Objective . Vital Signs Date Time Temp Pulse Resp B/P (MAP) Pulse Ox O2 Delivery O2 Flow Rate FiO2 12/08/16 12:00 98.5 93 16 110/60 (77) 100 12/08/16 08:00 Room Air 12/08/16 08:00 98.5 88 16 99/55 (70) 100 12/08/16 04:00 98.7 85 20 109/57 (74) 100 12/08/16 00:00 98.4 85 18 103/53 (70) 100 12/07/16 20:00 81 12/07/16 20:00 98.6 84 16 113/59 (77) 99 12/07/16 20:00 Room Air 12/07/16 16:00 98.0 92 18 95/50 (65) 99 12/08/16 12/08/16 12/09/16 15:00 23:00 07:00 Output Total 900 ml Balance -900 ml Output Urine Total 400 ml Hemodialysis 500 ml . Laboratory Tests Test 12/06/16 17:53 12/08/16 07:23 White Blood Count 5.1 TH/MM3 5.8 TH/MM3 Red Blood Count 2.43 MIL/MM3 2.25 MIL/MM3 Hemoglobin 7.4 GM/DL 6.7 GM/DL Hematocrit 21.7 % 19.9 % Mean Corpuscular Volume 89.0 FL 88.3 FL Mean Corpuscular Hemoglobin 30.2 PG 29.6 PG Mean Corpuscular Hemoglobin Concent 34.0 % 33.5 % Red Cell Distribution Width 14.4 % 14.8 % Platelet Count 116 TH/MM3 124 TH/MM3 Mean Platelet Volume 8.1 FL 8.0 FL Neutrophils (%) (Auto) 87.1 % 83.8 % Lymphocytes (%) (Auto) 2.0 % 2.6 % Monocytes (%) (Auto) 10.1 % 12.5 % Eosinophils (%) (Auto) 0.3 % 0.6 % Basophils (%) (Auto) 0.5 % 0.5 % Neutrophils # (Auto) 4.4 TH/MM3 4.8 TH/MM3 Lymphocytes # (Auto) 0.1 TH/MM3 0.1 TH/MM3 Monocytes # (Auto) 0.5 TH/MM3 0.7 TH/MM3 Eosinophils # (Auto) 0.0 TH/MM3 0.0 TH/MM3 Basophils # (Auto) 0.0 TH/MM3 0.0 TH/MM3 CBC Comment AUTO DIFF AUTO DIFF Differential Comment AUTO DIFF CONFIRMED FINAL DIFF MANUAL Platelet Estimate LOW LOW Platelet Morphology Comment NORMAL NORMAL Acanthocytes OCC Differential Total Cells Counted 100 Neutrophils % (Manual) 85 % Band Neutrophils % 3 % Lymphocytes % 1 % Monocytes % 9 % Eosinophils % 2 % Neutrophils # (Manual) 5.1 TH/MM3 Ovalocytes 1+ Laboratory Tests Test 12/06/16 17:53 12/08/16 07:23 Blood Urea Nitrogen 31 MG/DL 44 MG/DL Creatinine 5.63 MG/DL 7.39 MG/DL Random Glucose 120 MG/DL 96 MG/DL Calcium Level 7.8 MG/DL 8.5 MG/DL Sodium Level 138 MEQ/L 133 MEQ/L Potassium Level 3.7 MEQ/L 3.9 MEQ/L Chloride Level 99 MEQ/L 99 MEQ/L Carbon Dioxide Level 32.3 MEQ/L 23.7 MEQ/L Anion Gap 7 MEQ/L 10 MEQ/L Estimat Glomerular Filtration Rate 13 ML/MIN 10 ML/MIN Imaging Last Impressions Renal Biopsy CT 12/01/16 0600 Signed Impressions: Service Date/Time: November 14:17 - CONCLUSION: Uncomplicated CT guided biopsy. Alexis Adhikari MD Central Venous Line 11/29/16 0000 Signed Impressions: Service Date/Time: Tuesday, November 29, 2016 00:00 - CONCLUSION: Uncomplicated catheter removal. Solitario Diaz MD Catheter Placement X-Ray 11/29/16 0000 Signed Impressions: Service Date/Time: Tuesday, November 29, 2016 13:58 - CONCLUSION: Uncomplicated PermaCath placement as above. Solitario Diaz MD Tumor Localization 11/14/16 0000 Signed Impressions: Service Date/Time: Monday, November 14, 2016 11:38 - CONCLUSION: Negative scan Solitario Diaz MD Chest X-Ray 11/13/16 0000 Signed Impressions: Service Date/Time: Sunday, November 13, 2016 16:02 - CONCLUSION: No acute cardiopulmonary disease. Quincy Medellin MD Renal Ultrasound 11/05/16 0000 Signed Impressions: Service Date/Time: Saturday, November 05, 2016 19:17 - CONCLUSION: Diffusely echogenic kidneys indicating medical renal disease. Dorian Murry MD Abdomen/Pelvis CT 11/05/16 0000 Signed Impressions: Service Date/Time: Saturday, November 05, 2016 17:19 - CONCLUSION: 1. 4 mm calculus in the right renal pelvis/ureteropelvic junction with mild adjacent perinephric/periureteral stranding. No evidence of hydronephrosis. 2. 1 cm round hypodensity in the anterior right mid kidney statistically most likely to represent a cyst. 3. 3.7 cm hypodensity in the right lobe of the liver air the dome of the diaphragm. This finding is nonspecific on noncontrast CT. The most likely etiologies include hemangioma and cyst. It could be further evaluated with ultrasound nonemergent followup MRI of the abdomen. 4. Mild dilated proximal right common iliac artery. Dorian Murry MD Physical Exam GENERAL: awake and alert, not in respiratory distress. SKIN: Warm and dry. NO rash HEAD: Atraumatic. Normocephalic. No temporal wasting, or tenderness. EYES: [place] conjunctiva. No petechia or hemorrhage. No scleral icterus. No injection or drainage. EARS, NOSE AND THROAT: Nose without bleeding or purulent nasal discharge. Mucous membranes pink and moist. No oral lesions noted. No exudate. No oral thrush. NECK: Trachea midline. Supple and not tender, no meningeal signs CARDIOVASCULAR: Regular rate and rhythm. No murmurs, rubs or gallops heard RESPIRATORY: Clear to auscultation. Breath sounds equal bilaterally. No rales , wheezing or rhonchi ABDOMEN: Soft, non-tender, nondistended. Bowel sounds present and normoactive. No guarding. No rebound. No organomegaly. EXTREMITIES: No clubbing, cyanosis, or edema.No joint effusion, has good ROM. No calf tenderness. Well perfused and warm. NEUROLOGICAL: Awake alert Non-focal PSYCHIATRIC: Normal affect, calm and cooperative. 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
--- NOTE | 2016-12-08 15:28 | PD.CAR.PN ---
CVT Progress Note Subjective/Hospital Course: Patient with extensive medical history including poorly controlled AIDS and recurrent bouts of sepsis and weight loss Currently in renal failure and requiring dialysis access in form of an AV fistula Will review the venous mapping and see if patient has any adequate veins for the procedure however if not patient will require a bovine vein graft Patient is extremely poor candidate for any procedure and it should be noted that his surgery associated with significant risk Arm block with sedation will probably the best option in this situation Barring any unforeseen problems patient is scheduled for AV fistula surgery tomorrow 12/08/16 patient refuses Av fistula and wishes peritoneal dialysis instead. he is a very poor candidate for the latter due to the discipline this requires and due to systemic infection Will sign off Thanks J Objective: Vital Signs Date Time Temp Pulse Resp B/P (MAP) Pulse Ox O2 Delivery O2 Flow Rate FiO2 12/08/16 12:00 98.5 93 16 110/60 (77) 100 12/08/16 08:00 Room Air 12/08/16 08:00 98.5 88 16 99/55 (70) 100 12/08/16 04:00 98.7 85 20 109/57 (74) 100 12/08/16 00:00 98.4 85 18 103/53 (70) 100 12/07/16 20:00 81 12/07/16 20:00 98.6 84 16 113/59 (77) 99 12/07/16 20:00 Room Air 12/07/16 16:00 98.0 92 18 95/50 (65) 99 Labs: Laboratory Tests Test 12/08/16 07:23 White Blood Count 5.8 TH/MM3 (4.0-11.0) Red Blood Count 2.25 MIL/MM3 (4.50-5.90) Hemoglobin 6.7 GM/DL (13.0-17.0) Hematocrit 19.9 % (39.0-51.0) Mean Corpuscular Volume 88.3 FL (80.0-100.0) Mean Corpuscular Hemoglobin 29.6 PG (27.0-34.0) Mean Corpuscular Hemoglobin Concent 33.5 % (32.0-36.0) Red Cell Distribution Width 14.8 % (11.6-17.2) Platelet Count 124 TH/MM3 (150-450) Mean Platelet Volume 8.0 FL (7.0-11.0) Neutrophils (%) (Auto) 83.8 % (16.0-70.0) Lymphocytes (%) (Auto) 2.6 % (9.0-44.0) Monocytes (%) (Auto) 12.5 % (0.0-8.0) Eosinophils (%) (Auto) 0.6 % (0.0-4.0) Basophils (%) (Auto) 0.5 % (0.0-2.0) Neutrophils # (Auto) 4.8 TH/MM3 (1.8-7.7) Lymphocytes # (Auto) 0.1 TH/MM3 (1.0-4.8) Monocytes # (Auto) 0.7 TH/MM3 (0-0.9) Eosinophils # (Auto) 0.0 TH/MM3 (0-0.4) Basophils # (Auto) 0.0 TH/MM3 (0-0.2) CBC Comment AUTO DIFF Differential Total Cells Counted 100 Neutrophils % (Manual) 85 % (16-70) Band Neutrophils % 3 % (0-6) Lymphocytes % 1 % (9-44) Monocytes % 9 % (0-8) Eosinophils % 2 % (0-4) Neutrophils # (Manual) 5.1 TH/MM3 (1.8-7.7) Differential Comment FINAL DIFF MANUAL Platelet Estimate LOW (NORMAL) Platelet Morphology Comment NORMAL (NORMAL) Ovalocytes 1+ (NORMAL) Blood Urea Nitrogen 44 MG/DL (7-18) Creatinine 7.39 MG/DL (0.60-1.30) Random Glucose 96 MG/DL (74-106) Calcium Level 8.5 MG/DL (8.5-10.1) Sodium Level 133 MEQ/L (136-145) Potassium Level 3.9 MEQ/L (3.5-5.1) Chloride Level 99 MEQ/L (98-107) Carbon Dioxide Level 23.7 MEQ/L (21.0-32.0) Anion Gap 10 MEQ/L (5-15) Estimat Glomerular Filtration Rate 10 ML/MIN (>89) Result Diagram: 12/08/16 0723 12/08/16 0723 Damián Karimi MD Dec 08, 2016 15:28
[2016-12-08 16:00] VITALS: BP 111/63; PULSE 99; RESP 18; TEMP 100.3; O2SAT 100
[2016-12-08] MEDS ORDERED: LEVOFLOXACIN 250 MG TAB PO SCH (16:00)
--- NOTE | 2016-12-08 16:17 | HHI.PR ---
Subjective Remarks Written by Patrizia Guillen, acting as scribe for Dr. Shaver on 12/08/16 at 16:13. 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 Patient seen and examined lying in bed post dialysis. Tolerated well. Afebrile overnight. HH came back low, 6.7. Will transfuse. Patient asymptomatic. Denies any fever, chills, headache, dizziness, cough, shortness of breath, ab pain, n/v/d/ or dysuria. Eager to speak with general surgeon regarding PD cath placement. Objective Vitals Vital Signs Date Time Temp Pulse Resp B/P (MAP) Pulse Ox O2 Delivery O2 Flow Rate FiO2 12/08/16 12:00 98.5 93 16 110/60 (77) 100 12/08/16 08:00 Room Air 12/08/16 08:00 84 12/08/16 08:00 98.5 88 16 99/55 (70) 100 12/08/16 04:00 98.7 85 20 109/57 (74) 100 12/08/16 00:00 98.4 85 18 103/53 (70) 100 12/07/16 20:00 81 12/07/16 20:00 98.6 84 16 113/59 (77) 99 12/07/16 20:00 Room Air I/O 12/07/16 12/07/16 12/07/16 12/08/16 12/08/16 12/08/16 07:00 15:00 23:00 07:00 15:00 23:00 Intake Total 240 ml Output Total 300 ml 250 ml 900 ml Balance -300 ml -10 ml -900 ml Intake Oral 240 ml Output Urine Total 300 ml 250 ml 400 ml Hemodialysis 500 ml # Bowel Movements 0 Result Diagram: 12/08/16 0723 12/08/16 0723 Imaging Last Impressions Upper Extremity Ultrasound 12/07/16 0000 Signed Impressions: Service Date/Time: Wednesday, December 07, 2016 10:11 - CONCLUSION: Venous mapping as above. Enzo Isbell MD FACR Renal Biopsy CT 12/01/16 0600 Signed Impressions: Service Date/Time: November 14:17 - CONCLUSION: Uncomplicated CT guided biopsy. Alexis Adhikari MD Central Venous Line 11/29/16 Signed Impressions: Service Date/Time: Tuesday, November 29, 2016 00:00 - CONCLUSION: Uncomplicated catheter removal. Solitario Diaz MD Catheter Placement X-Ray 11/29/16 Signed Impressions: Service Date/Time: Tuesday, November 29, 2016 13:58 - CONCLUSION: Uncomplicated PermaCath placement as above. Solitario Diaz MD Tumor Localization 11/14/16 Signed Impressions: Service Date/Time: Monday, November 14, 2016 11:38 - CONCLUSION: Negative scan Solitario Daiz MD Chest X-Ray 11/13/16 Signed Impressions: Service Date/Time: Sunday, November 13, 2016 16:02 - CONCLUSION: No acute cardiopulmonary disease. Quincy Medellin MD Renal Ultrasound 11/05/16 Signed Impressions: Service Date/Time: Saturday, November 05, 2016 19:17 - CONCLUSION: Diffusely echogenic kidneys indicating medical renal disease. Dorian Murry MD Abdomen/Pelvis CT 11/05/16 Signed Impressions: Service Date/Time: Saturday, November 05, 2016 17:19 - CONCLUSION: 1. 4 mm calculus in the right renal pelvis/ureteropelvic junction with mild adjacent perinephric/periureteral stranding. No evidence of hydronephrosis. 2. 1 cm round hypodensity in the anterior right mid kidney statistically most likely to represent a cyst. 3. 3.7 cm hypodensity in the right lobe of the liver air the dome of the diaphragm. This finding is nonspecific on noncontrast CT. The most likely etiologies include hemangioma and cyst. It could be further evaluated with ultrasound nonemergent followup MRI of the abdomen. 4. Mild dilated proximal right common iliac artery. Dorian Murry MD Objective Remarks GENERAL: Well-developed well-nourished. In no acute distress. SKIN: Warm and dry. No lesions noted. No rash. Right vas cath noted. HEENT: Normocephalic. Pupils equal and round and reactive to light. EOMs intact. CARDIOVASCULAR: Regular rate and rhythm. No murmur appreciated. RESPIRATORY: No accessory muscle use. Clear to auscultation. Breath sounds equal bilaterally. GASTROINTESTINAL: Abdomen soft, non-tender, nondistended. Bowel sounds x4. MUSCULOSKELETAL: No obvious deformities. No clubbing or cyanosis. No edema. NEUROLOGICAL: Awake and alert. No focal neurological deficits. Moves upper and lower extremities spontaneously. Normal speech. Strength 5/5. PSYCHIATRIC: Appropriate mood and affect; insight and judgment normal. Procedures 11/14/16 hemodialysis catheter placement, right internal jugular Vascular Central Line Catheter: Yes Side: Right Reason for Continuation vas cath A/P Problem List: (1) Renal failure ICD Code: N19 - Unspecified kidney failure Status: Acute (2) Sepsis ICD Code: A41.9 - Sepsis, unspecified organism Status: Acute (3) UTI (urinary tract infection) ICD Code: N39.0 - Urinary tract infection, site not specified (4) Chronic kidney disease, stage V ICD Code: N18.5 - Chronic kidney disease, stage 5 (5) HIV (human immunodeficiency virus infection) ICD Code: B20 - Human immunodeficiency virus [HIV] disease (6) Anemia ICD Code: D64.9 - Anemia, unspecified (7) Hypertension ICD Code: I10 - Essential (primary) hypertension (8) Medical non-compliance ICD Code: Z91.19 - Patient's noncompliance with other medical treatment and regimen Assessment and Plan Severe sepsis secondary to UTI, pneumonia - Status post treatment with Zosyn. Patient is immunocompromised, noncompliant with HAART for the last 2 months. - HSV positive. 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 Blood mycobacterial culture growing acid fast organism. Afebrile. - Continue Levaquin. Continue PCP prophylaxis. Fever, resolved. Will repeat blood cultures if temp increases >100.9. Will follow. Acute renal failure superimposed on chronic kidney disease stage V - Nephrology following, remains non-oliguric. - SPEP, serology negative. Creatinine improving some. - HD per nephrology. - Renal biopsy done with results showing inadequate tissue for diagnosis, will need repeat biopsy once fever is resolved. - Dr Shah spoke with patient who desires to forego AVF placement and wants PD. General sx to see patient regarding PD cath placement. HIV/AIDS - CD4 count less than 20. Patient admitted to being noncompliant with HAART meds for the last 2 months. He has been counseled. 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 ID following patient, does not believe to be Ethambutol induced. CMV Labs ordered and pending. Follow. - [employer] In[employer] came to see patient recommending a retina consult. Awaiting input. Nephrology following patient and monitoring medications. Oral thrush, improved: Continue Diflucan, end date 12/10/16. Anemia - Hemoglobin dropped from 8.5-->7.3-->7.2-->7.1-->6.7 today. Received transfusion of 2 units PRBCs on 11/16/16. Will transfuse 2 units PRBC, with Lasix in between units. Will pretreat Tylenol and Benadryl. Hypertension, tachycardia: Continue metoprolol. Heart rate controlled. Buttock, perirectal wounds: HSV positive. Valtrex end date 11/22. Then chronic suppression with acyclovir. DVT prophylaxis: Heparin. This note was transcribed by MADAY Barrera. I, Dr. Zulma Shaver personally performed the history, physical exam, and medical decision making; and confirmed the accuracy of the information in the transcribed note. Authenticated by Dr. Zulma Shaver on 12/08/16 at 16:13. Problem Qualifiers (1) Renal failure: (2) Sepsis: Patrizia Guillen Dec 08, 2016 16:17 Zulma Shaver MD Dec 08, 2016 17:43
[2016-12-08] MEDS ORDERED: ACETAMINOPHEN 325 MG TAB PO PRN (17:00)
[2016-12-08] MEDS ORDERED: diphenhydrAMINE HCL 25 MG CAP PO PRN (17:00)
[2016-12-08] MEDS ORDERED: FUROSEMIDE 20 MG/2 ML VIAL IV ONE (17:00)
[2016-12-08] MEDS ORDERED: SODIUM CHLOR 0.9% 250 ML INJ 250 ML IV ONE (17:00)
[2016-12-08 20:00] VITALS: BP 143/73; PULSE 100; PULSE 109; RESP 20; TEMP 102.4; O2SAT 98
[2016-12-09] VITALS (11 sets, daily range): BP systolic 111–135; BP diastolic 62–79; PULSE 91–108; RESP 18–20; TEMP 97.8–101.3; O2SAT 98–100
[2016-12-09] MEDS: HEPARIN SODIUM - SQ 10,000 UNITS/ML VIAL SQ SCH ×2 (05:00→17:00)
[2016-12-09] MEDS: LACTOBACILLUS ACIDOPHILUS TAB PO SCH ×2 (10:19→20:14)
[2016-12-09] MEDS: CLARITHROMYCIN 500 MG TAB PO SCH ×2 (10:19→20:14)
[2016-12-09] MEDS: FLUCONAZOLE 100 MG TAB PO SCH (10:19)
[2016-12-09] MEDS: SULFAMETHOXAZOLE-TRIMETHOPRIM DS 800-160 MG TAB PO SCH (10:20)
[2016-12-09] MEDS: SODIUM CHLORIDE 0.9% FLUSH 10 ML FLUSH IV FLUSH SCH ×2 (10:20→20:14)
[2016-12-09] MEDS: DOCUSATE SODIUM 50 MG/SENNA 8.6 MG TAB PO SCH ×2 (10:20→20:15)
[2016-12-09] MEDS: ETHAMBUTOL HCL 400 MG TAB PO SCH (10:21)
--- NOTE | 2016-12-09 11:18 | MB ---
cc: DARRYL DAY M.D., ABDUL Q. MD DIMAYUGA, ELOISA G. MD DATE OF CONSULTATION: 12/08/2016 REASON FOR CONSULTATION Peritoneal dialysis catheter placement. 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 He has been undergoing hemodialysis Monday, and Monday. He has had a renal biopsy and results are pending. 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 The patient has been consulted about options for dialysis and is very interested in peritoneal dialysis, in fact has already been marked for surgical exit site in the right upper abdomen about 6 cm superolateral to the umbilicus at the 11 o'clock position. The patient denies prior abdominal surgeries. ALLERGIES He has no known drug allergies. PAST MEDICAL HISTORY 1. HIV over 20 years. He has been noncompliant with medications for 2 months. 2. History of kidney stones. MEDICATIONS His present medications include: 1. Ganciclovir. 2. Levaquin. 3. Epogen. 4. Myambutol. 5. Lactinex. 6. Diflucan. 7. Bactrim DS. 8. Clarithromycin. 9. Gentamicin with dialysis. 10.Zofran. 11.Tylenol. 12.Clonidine. SOCIAL HISTORY Significant for being HIV positive, untreated for 2 months. FAMILY HISTORY No family history of untoward incidence with general anesthesia. REVIEW OF SYSTEMS No known heart or lung disorders. No known liver problems. No history of use of blood thinning medications. PHYSICAL EXAMINATION GENERAL: He is a thin -[place] male who is in no acute distress. He is pleasant and cooperative with the exam. VITAL SIGNS: Most recent temperature is 102.4, pulse 109, respiratory rate 20, blood pressure 143/73. O2 sat is 98-100%. HEENT: He is normocephalic, atraumatic. Pupils are 3, round and sluggishly reactive to light. His sclera are anicteric. His oropharynx is clear without mucosal lesions. NECK: His neck is supple without adenopathy. He has a right-sided Vas-Cath in place exiting the chest wall in the right upper chest. LUNGS: He has clear anterior bilateral breath sounds. HEART: His heart sounds are regular without obvious murmur, rub or gallop. Some mild sinus tachycardia. ABDOMEN: His abdomen is soft and nondistended, nontender. He has no palpable masses. He has an "X" marking a spot in the right upper quadrant consistent with pick up man marking for potential exit site for peritoneal dialysis catheter. There are no obvious hernias or scars. GENITAL/RECTAL/PERIANAL: Exams were not repeated. Apparently he has signs suggestive of a herpes infection in the perianal area and buttocks. EXTREMITIES: His extremities are thin. He has dry skin. He has equal bounding radial and dorsalis pedis pulses. He has chronic fungal type changes in many of his finger and toe nails. NEUROLOGIC: He is awake, alert, oriented. He has equal bilateral otolaryngology physician strength. No gross motor or sensory deficit. LABORATORY White count 5.8, hemoglobin 6.7, platelet count 124, 83.8% neutrophils. INR 1, PTT 36.2. Potassium 3.9, BUN 44, creatinine 7.39. Urinalysis demonstrated proteinuria. CD4 count on 11/07/2016 was absolute less than 20. He was positive for HSV1 and 2, IgG index, VZV IgG antibody greater than 4000. Hepatitis panels were negative. IMAGING He had a CT scan of the abdomen and pelvis which shows a tiny right renal stone. He has a small cyst on the right kidney. Hemangioma or cyst in the liver, small. No other significant findings. ASSESSMENT AND PLAN A 50-year-old -[place] gentleman with end-stage AIDS/HIV infection untreated for 2 months with multiple sequelae. He has acute on chronic renal failure. Request has been made for placement of peritoneal dialysis catheter. I discussed with the patient this ideally is placed not in a patient with active infection. Infectious Disease is currently following this patient. We can tentatively schedule placement of peritoneal dialysis catheter, laparoscopic-assisted, for next Monday. If he has continued infection it may be most guardado to delay placement of the peritoneal dialysis catheter until this is under control. I discussed with him that untreated HIV infection destroys his own immune system and makes him more prone to infections and a foreign body placed into his abdominal cavity would be highly at risk for recurrent infections. He appears to be intelligent enough to understand this. Again, tentative placement next Monday whether he is still an inpatient or is able to be discharged home in the interim. Please communicate with me if you feel like placement of the peritoneal dialysis catheter is contraindicated. MD ELVI Olvera/ABEL /11:24 PM /10:54 AM
--- NOTE | 2016-12-09 13:54 | HHI.PR ---
Subjective Remarks Did not received blood until now, as difficult to find irradiated RBC, discussed with the nurse, will transfuse both units of blood and will check H/H afterwards. Patient is in bed, Feels tired, denies chest pain or sob. No n/v/c. Has loose stools 2 x daily. No fever ro chills. Objective Vitals Vital Signs Date Time Temp Pulse Resp B/P (MAP) Pulse Ox O2 Delivery O2 Flow Rate FiO2 12/09/16 13:28 99.7 100 18 119/69 99 12/09/16 10:29 98.9 106 18 115/68 100 12/09/16 10:13 97.8 108 18 122/70 100 12/09/16 08:00 98.4 97 20 135/79 (97) 100 12/09/16 08:00 Room Air 12/09/16 00:00 99.6 91 20 111/62 (78) 100 12/08/16 20:30 Room Air 12/08/16 20:00 100 12/08/16 20:00 102.4 109 20 143/73 (96) 98 12/08/16 16:00 100.3 99 18 111/63 (79) 100 I/O 12/08/16 12/08/16 12/08/16 12/09/16 12/09/16 12/09/16 07:00 15:00 23:00 07:00 15:00 23:00 Intake Total 240 ml 720 ml 580 ml 750 ml Output Total 250 ml 900 ml 325 ml 50 ml Balance -10 ml -900 ml 395 ml 530 ml 750 ml Intake Oral 240 ml 720 ml 580 ml Packed Cells 400 ml Blood Product IV Normal Saline Flush 350 ml Output Urine Total 250 ml 400 ml 325 ml 50 ml Hemodialysis 500 ml # Voids 4 # Bowel Movements 0 0 1 Result Diagram: 12/08/16 0723 12/08/16 0723 Imaging Last Impressions Upper Extremity Ultrasound 12/07/16 0000 Signed Impressions: Service Date/Time: Wednesday, December 07, 2016 10:11 - CONCLUSION: Venous mapping as above. Enzo Isbell MD FACR Renal Biopsy CT 12/01/16 0600 Signed Impressions: Service Date/Time: November 14:17 - CONCLUSION: Uncomplicated CT guided biopsy. Alexis Adhikari MD Central Venous Line 11/29/16 Signed Impressions: Service Date/Time: Tuesday, November 29, 2016 00:00 - CONCLUSION: Uncomplicated catheter removal. Solitario Diaz MD Catheter Placement X-Ray 11/29/16 Signed Impressions: Service Date/Time: Tuesday, November 29, 2016 13:58 - CONCLUSION: Uncomplicated PermaCath placement as above. Solitario Diaz MD Tumor Localization 11/14/16 Signed Impressions: Service Date/Time: Monday, November 14, 2016 11:38 - CONCLUSION: Negative scan Solitario Diaz MD Chest X-Ray 11/13/16 Signed Impressions: Service Date/Time: Sunday, November 13, 2016 16:02 - CONCLUSION: No acute cardiopulmonary disease. Quincy Medellin MD Renal Ultrasound 11/05/16 Signed Impressions: Service Date/Time: Saturday, November 05, 2016 19:17 - CONCLUSION: Diffusely echogenic kidneys indicating medical renal disease. Dorian Murry MD Abdomen/Pelvis CT 11/05/16 Signed Impressions: Service Date/Time: Saturday, November 05, 2016 17:19 - CONCLUSION: 1. 4 mm calculus in the right renal pelvis/ureteropelvic junction with mild adjacent perinephric/periureteral stranding. No evidence of hydronephrosis. 2. 1 cm round hypodensity in the anterior right mid kidney statistically most likely to represent a cyst. 3. 3.7 cm hypodensity in the right lobe of the liver air the dome of the diaphragm. This finding is nonspecific on noncontrast CT. The most likely etiologies include hemangioma and cyst. It could be further evaluated with ultrasound nonemergent followup MRI of the abdomen. 4. Mild dilated proximal right common iliac artery. Dorian Murry MD Objective Remarks GENERAL: Well-developed well-nourished. In no acute distress. SKIN: Warm and dry. No lesions noted. No rash. Right vas cath noted. HEENT: Normocephalic. Pupils equal and round and reactive to light. EOMs intact. CARDIOVASCULAR: Regular rate and rhythm. No murmur appreciated. RESPIRATORY: No accessory muscle use. Clear to auscultation. Breath sounds equal bilaterally. GASTROINTESTINAL: Abdomen soft, non-tender, nondistended. Bowel sounds x4. MUSCULOSKELETAL: No obvious deformities. No clubbing or cyanosis. No edema. NEUROLOGICAL: Awake and alert. No focal neurological deficits. Moves upper and lower extremities spontaneously. Normal speech. Strength 5/5. PSYCHIATRIC: Appropriate mood and affect; insight and judgment normal. Procedures 11/14/16 hemodialysis catheter placement, right internal jugular Side: Right A/P Problem List: (1) Renal failure ICD Code: N19 - Unspecified kidney failure Status: Acute (2) Sepsis ICD Code: A41.9 - Sepsis, unspecified organism Status: Acute (3) UTI (urinary tract infection) ICD Code: N39.0 - Urinary tract infection, site not specified (4) Chronic kidney disease, stage V ICD Code: N18.5 - Chronic kidney disease, stage 5 (5) HIV (human immunodeficiency virus infection) ICD Code: B20 - Human immunodeficiency virus [HIV] disease (6) Anemia ICD Code: D64.9 - Anemia, unspecified (7) Hypertension ICD Code: I10 - Essential (primary) hypertension (8) Medical non-compliance ICD Code: Z91.19 - Patient's noncompliance with other medical treatment and regimen Assessment and Plan Severe sepsis secondary to UTI, pneumonia - Status post treatment with Zosyn. Patient is immunocompromised, noncompliant with HAART for the last 2 months. - HSV positive. 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 Blood mycobacterial culture growing acid fast organism. Afebrile. - Continue Levaquin. Continue PCP prophylaxis. Fever, resolved. Will repeat blood cultures if temp increases >100.9. Will follow. Acute renal failure superimposed on chronic kidney disease stage V - Nephrology following, remains non-oliguric. - SPEP, serology negative. Creatinine improving some. - HD per nephrology. - Renal biopsy done with results showing inadequate tissue for diagnosis, will need repeat biopsy once fever is resolved. - Dr Shah spoke with patient who desires to forego AVF placement and wants PD. General sx to see patient regarding PD cath placement. HIV/AIDS - CD4 count less than 20. Patient admitted to being noncompliant with HAART meds for the last 2 months. He has been counseled. 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 ID following patient, does not believe to be Ethambutol induced. CMV Labs ordered and pending. Follow. - Sat Math Tutor came to see patient recommending a retina consult. Awaiting input. Nephrology following patient and monitoring medications. Oral thrush, improved: Continue Diflucan, end date 12/10/16. Anemia - Hemoglobin dropped from 8.5-->7.3-->7.2-->7.1-->6.7. Received transfusion of 2 units PRBCs on 11/16/16.Transfuse 2 units PRBC, with Lasix in between units. Will pretreat with Tylenol and Benadryl. Will repeat h/h. after transfusion Hypertension, tachycardia: Continue metoprolol. Heart rate controlled. Buttock, perirectal wounds: HSV positive. Valtrex end date 11/22. Then chronic suppression with acyclovir. DVT prophylaxis: Heparin. Discussed with the patient,.nurse Problem Qualifiers (1) Renal failure: (2) Sepsis: Zulma Shaver MD Dec 09, 2016 13:54
--- NOTE | 2016-12-09 15:30 | HHI.IDPN ---
Subjective Subjective Remarks Patient is a 50-year-old male, with known HIV, end stage AIDS, non compliant He presented with multiple complaints and was diagnosed with disseminated MAC, ARF He was started on Bix, ethambutol for MAC, BC with AFB, no ID yet Has been afebrile since EMB started Has been getting HD T-- had renal biopsy and results pending C/O blurry vision Ophtha eval showed vasculitis, possible CMV retinitis Started on IV Ganciclovir 12/04 Notes reviewed No change in vision complaints Feels tired Fevers last night (+) loose stool Being evaluated by surgery for PD cath Repeat CMV PCR negative CMV Ab pending BC with AFB no ID yet Antibiotics Levaquin Biaxin Ethambutol fluconazole Bactrim PCP prophylaxis Ganciclovir IV Lines permacath Past Medical History HIV, for 20+years, noncompliant with medications for the past 2 months Kidney stones Allergies: Coded Allergies: No Known Allergies (Unverified , 11/05/16) Objective . Vital Signs Date Time Temp Pulse Resp B/P (MAP) Pulse Ox O2 Delivery O2 Flow Rate FiO2 12/09/16 14:40 98.9 99 18 122/68 99 12/09/16 14:21 99.0 100 20 122/72 100 12/09/16 13:28 99.7 100 18 119/69 99 12/09/16 10:29 98.9 106 18 115/68 100 12/09/16 10:13 97.8 108 18 122/70 100 12/09/16 08:00 98.4 97 20 135/79 (97) 100 12/09/16 08:00 Room Air 12/09/16 00:00 99.6 91 20 111/62 (78) 100 12/08/16 20:30 Room Air 12/08/16 20:00 100 12/08/16 20:00 102.4 109 20 143/73 (96) 98 12/08/16 16:00 100.3 99 18 111/63 (79) 100 12/09/16 12/09/16 12/10/16 15:00 23:00 07:00 Intake Total 800 ml Balance 800 ml Packed Cells 400 ml Blood Product IV Normal Saline Flush 400 ml . Laboratory Tests Test 12/08/16 07:23 White Blood Count 5.8 TH/MM3 Red Blood Count 2.25 MIL/MM3 Hemoglobin 6.7 GM/DL Hematocrit 19.9 % Mean Corpuscular Volume 88.3 FL Mean Corpuscular Hemoglobin 29.6 PG Mean Corpuscular Hemoglobin Concent 33.5 % Red Cell Distribution Width 14.8 % Platelet Count 124 TH/MM3 Mean Platelet Volume 8.0 FL Neutrophils (%) (Auto) 83.8 % Lymphocytes (%) (Auto) 2.6 % Monocytes (%) (Auto) 12.5 % Eosinophils (%) (Auto) 0.6 % Basophils (%) (Auto) 0.5 % Neutrophils # (Auto) 4.8 TH/MM3 Lymphocytes # (Auto) 0.1 TH/MM3 Monocytes # (Auto) 0.7 TH/MM3 Eosinophils # (Auto) 0.0 TH/MM3 Basophils # (Auto) 0.0 TH/MM3 CBC Comment AUTO DIFF Differential Total Cells Counted 100 Neutrophils % (Manual) 85 % Band Neutrophils % 3 % Lymphocytes % 1 % Monocytes % 9 % Eosinophils % 2 % Neutrophils # (Manual) 5.1 TH/MM3 Differential Comment FINAL DIFF MANUAL Platelet Estimate LOW Platelet Morphology Comment NORMAL Ovalocytes 1+ Laboratory Tests Test 12/08/16 07:23 Blood Urea Nitrogen 44 MG/DL Creatinine 7.39 MG/DL Random Glucose 96 MG/DL Calcium Level 8.5 MG/DL Sodium Level 133 MEQ/L Potassium Level 3.9 MEQ/L Chloride Level 99 MEQ/L Carbon Dioxide Level 23.7 MEQ/L Anion Gap 10 MEQ/L Estimat Glomerular Filtration Rate 10 ML/MIN Imaging Last Impressions Renal Biopsy CT 12/01/16 0600 Signed Impressions: Service Date/Time: November 14:17 - CONCLUSION: Uncomplicated CT guided biopsy. Alexis Adhikari MD Central Venous Line 11/29/16 0000 Signed Impressions: Service Date/Time: Tuesday, November 29, 2016 00:00 - CONCLUSION: Uncomplicated catheter removal. Solitario Diaz MD Catheter Placement X-Ray 11/29/16 0000 Signed Impressions: Service Date/Time: Tuesday, November 29, 2016 13:58 - CONCLUSION: Uncomplicated PermaCath placement as above. Solitario Diaz MD Tumor Localization 11/14/16 0000 Signed Impressions: Service Date/Time: Monday, November 14, 2016 11:38 - CONCLUSION: Negative scan Solitario Diaz MD Chest X-Ray 11/13/16 0000 Signed Impressions: Service Date/Time: Sunday, November 13, 2016 16:02 - CONCLUSION: No acute cardiopulmonary disease. Quincy Medellin MD Renal Ultrasound 11/05/16 0000 Signed Impressions: Service Date/Time: Saturday, November 05, 2016 19:17 - CONCLUSION: Diffusely echogenic kidneys indicating medical renal disease. Dorian Murry MD Abdomen/Pelvis CT 11/05/16 Signed Impressions: Service Date/Time: Saturday, November 05, 2016 17:19 - CONCLUSION: 1. 4 mm calculus in the right renal pelvis/ureteropelvic junction with mild adjacent perinephric/periureteral stranding. No evidence of hydronephrosis. 2. 1 cm round hypodensity in the anterior right mid kidney statistically most likely to represent a cyst. 3. 3.7 cm hypodensity in the right lobe of the liver air the dome of the diaphragm. This finding is nonspecific on noncontrast CT. The most likely etiologies include hemangioma and cyst. It could be further evaluated with ultrasound nonemergent followup MRI of the abdomen. 4. Mild dilated proximal right common iliac artery. Dorian Murry MD Physical Exam GENERAL: awake and alert, not in respiratory distress. SKIN: Warm and dry. NO rash HEAD: Atraumatic. Normocephalic. No temporal wasting, or tenderness. EYES: [place] conjunctiva. No petechia or hemorrhage. No scleral icterus. No injection or drainage. EARS, NOSE AND THROAT: Nose without bleeding or purulent nasal discharge. Mucous membranes pink and moist. No oral lesions noted. No exudate. No oral thrush. NECK: Trachea midline. Supple and not tender, no meningeal signs CARDIOVASCULAR: Regular rate and rhythm. No murmurs, rubs or gallops heard RESPIRATORY: Clear to auscultation. Breath sounds equal bilaterally. No rales , wheezing or rhonchi ABDOMEN: Soft, non-tender, nondistended. Bowel sounds present and normoactive. No guarding. No rebound. No organomegaly. EXTREMITIES: No clubbing, cyanosis, or edema.No joint effusion, has good ROM. No calf tenderness. Well perfused and warm. NEUROLOGICAL: Awake alert Non-focal PSYCHIATRIC: Normal affect, calm and cooperative. 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
--- NOTE | 2016-12-09 19:22 | HHI.NPPN ---
Subjective History of Present Illness 50-year-old male with past medical history of HIV disease for more than 20 years and history of renal stone who came to the hospital with complaint of back pain. The patient has back pain going on for the last 2 months off and on and he came to the emergency department yesterday with worsening pain. Additional Remarks Patient is alert, has low grade fever last night, now better. Review of Systems General Constitutional: Fatigue Cardiovascular Cardiac: MIRZA Objective Data Data 12/09/16 12/10/16 19:00 07:00 Intake Total 1250 ml Balance 1250 ml Packed Cells 800 ml Blood Product IV Normal Saline Flush 450 ml Vital Signs Date Time Temp Pulse Resp B/P (MAP) Pulse Ox O2 Delivery O2 Flow Rate FiO2 12/09/16 18:08 99.0 102 20 118/70 98 12/09/16 14:40 98.9 99 18 122/68 99 12/09/16 14:21 99.0 100 20 122/72 100 12/09/16 13:28 99.7 100 18 119/69 99 12/09/16 12:00 99.7 102 20 119/69 (86) 99 12/09/16 10:29 98.9 106 18 115/68 100 12/09/16 10:13 97.8 108 18 122/70 100 12/09/16 08:00 95 12/09/16 08:00 98.4 97 20 135/79 (97) 100 12/09/16 08:00 Room Air 12/09/16 00:00 99.6 91 20 111/62 (78) 100 12/08/16 20:30 Room Air 12/08/16 20:00 100 12/08/16 20:00 102.4 109 20 143/73 (96) 98 -: 12/08/16 0723 12/08/16 0723 Physical Exam General Appearance: No Acute Distress, Comfortable Eyes Eye Exam: Pupils Equal Throat Throat Exam: Oral Mucosa [place] & Moist Pulmonary Resp Exam: Breath Sounds Equal, No Distress, Rhonchi, Decreased Bases Cardiology CV Exam: Regular, Normal Sinus Rhythm Gastrointestinal/Abdomen GI Exam: Soft, Non-Tender, Bowel Sounds Present Extremeties Extremities Exam: No Edema Neurologic Neuro Exam: Alert, Awake, Oriented Psychiatric Psych Exam: Appropriate Responses Assessment/Plan Assessment Summary: MIKE/Acute Renal Failure Problem List: (1) Renal failure ICD Codes: N19 - Unspecified kidney failure Status: Acute (2) Sepsis ICD Codes: A41.9 - Sepsis, unspecified organism Status: Acute (3) Open wound of scrotum ICD Codes: S31.30XA - Unspecified open wound of scrotum and testes, initial encounter Status: Acute Plan c/o blurry vision left eye Remain non oliguric. SPEP was negative. Complements normal, other serology also negative. BP is better, on Metoprolol to 50 mg BID. If renal function will not improve, will consider Renal Biopsy once infection is controlled. Fever pattern is better, ID is following. Now on Bactrim, Acyclovir, Clarithromycin and Ethambutol. CMV retinitis/MAC been treated No improvement in renal function. Possibly has End stage renal disease. Got PermCath. 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 No need to repeat the renal Biopsy as clinically he is showing no improvement, and the with advance HIV , the treatment options are limited, cannot be given immunosuppressive drugs. he is going to get HD tomorrow Problem Qualifiers (1) Renal failure: (2) Sepsis: Chad Vela MD Dec 09, 2016 19:22
[2016-12-09] MEDS: RIFAMPIN 150 MG CAP PO SCH (20:14)
[2016-12-09] MEDS: ACETAMINOPHEN 325 MG TAB PO PRN (20:15)
[2016-12-09] MEDS: ONDANSETRON HCL 4 MG/2 ML VIAL IV PRN (20:25)
[2016-12-09 20:26] LABS: AUTOMATED NEUTROPHIL # 6.8 TH/MM3 (1.8-7.7); BASOPHIL % 0.5 % (0.0-2.0); EOSINOPHIL % 0.1 % (0.0-4.0); HEMATOCRIT 26.9 % (39.0-51.0); LYMPH % 1.9 % (9.0-44.0); LYMPHOCYTE # 0.1 TH/MM3 (1.0-4.8); MEAN CORPUSCULAR HEMOGLOBIN 28.8 PG (27.0-34.0); MEAN CORPUSCULAR HGB CONC 33.5 % (32.0-36.0); MONO % 9.5 % (0.0-8.0); PLATELET COUNT 132 TH/MM3 (150-450); RED BLOOD COUNT 3.13 MIL/MM3 (4.50-5.90); RED CELL DISTRIBUTION WIDTH 15.6 % (11.6-17.2); WHITE BLOOD COUNT 7.7 TH/MM3 (4.0-11.0)
[2016-12-09 20:32] LABS: HEMO FLAGS AUTO DIFF
[2016-12-09 20:42] LABS: BICARBONATE 28.1 MEQ/L (21.0-32.0); POTASSIUM 3.6 MEQ/L (3.5-5.1)
[2016-12-09 21:16] LABS: PLATELET ESTIMATE SMEAR LOW (NORMAL); PLATELET MORPHOLOGY ENLARGED (NORMAL); SCAN/DIFF AUTO DIFF CONFIRMED
[2016-12-10] VITALS: BP 122/78; PULSE 83; RESP 18; TEMP 98.5; O2SAT 100
[2016-12-10 04:00] VITALS: BP 135/84; PULSE 78; RESP 16; TEMP 97.1; O2SAT 100
[2016-12-10] MEDS: HEPARIN SODIUM - SQ 10,000 UNITS/ML VIAL SQ SCH ×2 (04:33→17:00)
[2016-12-10 08:00] VITALS: BP 144/90; PULSE 85; PULSE 88; RESP 20; TEMP 98.6; O2SAT 100
[2016-12-10] MEDS: DOCUSATE SODIUM 50 MG/SENNA 8.6 MG TAB PO SCH ×2 (09:00→20:44)
[2016-12-10] MEDS: SODIUM CHLORIDE 0.9% FLUSH 10 ML FLUSH IV FLUSH SCH ×2 (09:00→20:44)
--- NOTE | 2016-12-10 09:33 | HHI.PR ---
Subjective Remarks Received blood transfusion HGB of 9. He doesn't have shortness of pain. All diarrhea. No nausea or vomiting. Denies fever or chills. No change in vision. Objective Vitals Vital Signs Date Time Temp Pulse Resp B/P (MAP) Pulse Ox O2 Delivery O2 Flow Rate FiO2 12/10/16 04:00 97.1 78 16 135/84 (101) 100 12/10/16 00:00 98.5 83 18 122/78 (93) 100 12/09/16 20:00 Room Air 12/09/16 20:00 95 12/09/16 20:00 101.3 96 18 126/67 (86) 100 12/09/16 18:08 99.0 102 20 118/70 98 12/09/16 16:00 99.6 93 20 122/70 (87) 100 12/09/16 14:40 98.9 99 18 122/68 99 12/09/16 14:21 99.0 100 20 122/72 100 12/09/16 13:28 99.7 100 18 119/69 99 12/09/16 12:00 99.7 102 20 119/69 (86) 99 12/09/16 10:29 98.9 106 18 115/68 100 12/09/16 10:13 97.8 108 18 122/70 100 I/O 12/09/16 12/09/16 12/09/16 12/10/16 12/10/16 12/10/16 07:00 15:00 23:00 07:00 15:00 23:00 Intake Total 580 ml 800 ml 740 ml 360 ml Output Total 50 ml 200 ml 400 ml Balance 530 ml 800 ml 540 ml -40 ml Intake Oral 580 ml 240 ml 360 ml IV Total 50 ml Packed Cells 400 ml 400 ml Blood Product IV Normal Saline Flush 400 ml 50 ml Output Urine Total 50 ml 200 ml 400 ml # Voids 4 # Bowel Movements 1 0 1 Result Diagram: 12/09/16200712/09/162007 Imaging Last Impressions Upper Extremity Ultrasound 12/07/16 0000 Signed Impressions: Service Date/Time: Wednesday, December 07, 2016 10:11 - CONCLUSION: Venous mapping as above. Enzo Isbell MD FACR Renal Biopsy CT 12/01/16 0600 Signed Impressions: Service Date/Time: November 14:17 - CONCLUSION: Uncomplicated CT guided biopsy. Alexis Adhikari MD Central Venous Line 11/29/16 0000 Signed Impressions: Service Date/Time: Tuesday, November 29, 2016 00:00 - CONCLUSION: Uncomplicated catheter removal. Solitario Diaz MD Catheter Placement X-Ray 11/29/16 Signed Impressions: Service Date/Time: Tuesday, November 29, 2016 13:58 - CONCLUSION: Uncomplicated PermaCath placement as above. Solitario Diaz MD Tumor Localization 11/14/16 0000 Signed Impressions: Service Date/Time: Monday, November 14, 2016 11:38 - CONCLUSION: Negative scan Solitario Diaz MD Chest X-Ray 11/13/16 0000 Signed Impressions: Service Date/Time: Sunday, November 13, 2016 16:02 - CONCLUSION: No acute cardiopulmonary disease. Quincy Medellin MD Renal Ultrasound 11/05/16 0000 Signed Impressions: Service Date/Time: Saturday, November 05, 2016 19:17 - CONCLUSION: Diffusely echogenic kidneys indicating medical renal disease. Dorian Murry MD Abdomen/Pelvis CT 11/05/16 0000 Signed Impressions: Service Date/Time: Saturday, November 05, 2016 17:19 - CONCLUSION: 1. 4 mm calculus in the right renal pelvis/ureteropelvic junction with mild adjacent perinephric/periureteral stranding. No evidence of hydronephrosis. 2. 1 cm round hypodensity in the anterior right mid kidney statistically most likely to represent a cyst. 3. 3.7 cm hypodensity in the right lobe of the liver air the dome of the diaphragm. This finding is nonspecific on noncontrast CT. The most likely etiologies include hemangioma and cyst. It could be further evaluated with ultrasound nonemergent followup MRI of the abdomen. 4. Mild dilated proximal right common iliac artery. Dorian Murry MD Objective Remarks GENERAL: Well-developed well-nourished. In no acute distress. SKIN: Warm and dry. No lesions noted. No rash. Right vas cath noted. HEENT: Normocephalic. Pupils equal and round and reactive to light. EOMs intact. CARDIOVASCULAR: Regular rate and rhythm. No murmur appreciated. RESPIRATORY: No accessory muscle use. Clear to auscultation. Breath sounds equal bilaterally. GASTROINTESTINAL: Abdomen soft, non-tender, nondistended. Bowel sounds x4. MUSCULOSKELETAL: No obvious deformities. No clubbing or cyanosis. No edema. NEUROLOGICAL: Awake and alert. No focal neurological deficits. Moves upper and lower extremities spontaneously. Normal speech. Strength 5/5. PSYCHIATRIC: Appropriate mood and affect; insight and judgment normal. Procedures 11/14/16 hemodialysis catheter placement, right internal jugular Side: Right A/P Problem List: (1) Renal failure ICD Code: N19 - Unspecified kidney failure Status: Acute (2) Sepsis ICD Code: A41.9 - Sepsis, unspecified organism Status: Acute (3) UTI (urinary tract infection) ICD Code: N39.0 - Urinary tract infection, site not specified (4) Chronic kidney disease, stage V ICD Code: N18.5 - Chronic kidney disease, stage 5 (5) HIV (human immunodeficiency virus infection) ICD Code: B20 - Human immunodeficiency virus [HIV] disease (6) Anemia ICD Code: D64.9 - Anemia, unspecified (7) Hypertension ICD Code: I10 - Essential (primary) hypertension (8) Medical non-compliance ICD Code: Z91.19 - Patient's noncompliance with other medical treatment and regimen Assessment and Plan Severe sepsis secondary to UTI, pneumonia - Status post treatment with Zosyn. Patient is immunocompromised, noncompliant with HAART for the last 2 months. - HSV positive. 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 Blood mycobacterial culture growing acid fast organism. Afebrile. - Continue Levaquin. Continue PCP prophylaxis. Fever, resolved. Will repeat blood cultures if temp increases >100.9. Will follow. Acute renal failure superimposed on chronic kidney disease stage V - Nephrology following, remains non-oliguric. - SPEP, serology negative. Creatinine improving some. - HD per nephrology. - Renal biopsy done with results showing inadequate tissue for diagnosis, will need repeat biopsy once fever is resolved. - Dr Shah spoke with patient who desires to forego AVF placement and wants PD. General sx to see patient regarding PD cath placement. HIV/AIDS - CD4 count less than 20. Patient admitted to being noncompliant with HAART meds for the last 2 months. He has been counseled. 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 ID following patient, does not believe to be Ethambutol induced. CMV Labs ordered and pending. Follow. - Pyrometer Mechanic came to see patient recommending a retina consult. Awaiting input. Nephrology following patient and monitoring medications. Oral thrush, improved: Continue Diflucan, end date 12/10/16. Anemia - Hemoglobin dropped from 8.5-->7.3-->7.2-->7.1-->6.7. Received transfusion of 2 units PRBCs on 11/16/16. S/p 2 units PRBC 12/09/16 HGB of 9 s/p transfusion. Monitior and transfuse if HGB < 7 or if symptomatic Hypertension, tachycardia: Continue metoprolol. Heart rate controlled. Buttock, perirectal wounds: HSV positive. Valtrex end date 11/22. Then chronic suppression with acyclovir. DVT prophylaxis: Heparin. Discussed with the patient, nurse Problem Qualifiers (1) Renal failure: (2) Sepsis: Zulma Shaver MD Dec 10, 2016 09:33
--- NOTE | 2016-12-10 10:01 | HHI.NPPN ---
Subjective History of Present Illness 50-year-old male with past medical history of HIV disease for more than 20 years and history of renal stone who came to the hospital with complaint of back pain. The patient has back pain going on for the last 2 months off and on and he came to the emergency department yesterday with worsening pain. Additional Remarks Seen during dialysis, on 3K, UF 2 liters. Tolerating it well. Review of Systems General Constitutional: Fatigue Cardiovascular Cardiac: MIRZA Objective Data Data Vital Signs Date Time Temp Pulse Resp B/P (MAP) Pulse Ox O2 Delivery O2 Flow Rate FiO2 12/10/16 04:00 97.1 78 16 135/84 (101) 100 12/10/16 00:00 98.5 83 18 122/78 (93) 100 12/09/16 20:00 Room Air 12/09/16 20:00 95 12/09/16 20:00 101.3 96 18 126/67 (86) 100 12/09/16 18:08 99.0 102 20 118/70 98 12/09/16 16:00 99.6 93 20 122/70 (87) 100 12/09/16 14:40 98.9 99 18 122/68 99 12/09/16 14:21 99.0 100 20 122/72 100 12/09/16 13:28 99.7 100 18 119/69 99 12/09/16 12:00 99.7 102 20 119/69 (86) 99 12/09/16 10:29 98.9 106 18 115/68 100 12/09/16 10:13 97.8 108 18 122/70 100 -: 12/09/16200712/09/162007 Physical Exam General Appearance: No Acute Distress, Comfortable Eyes Eye Exam: Pupils Equal Throat Throat Exam: Oral Mucosa [place] & Moist Pulmonary Resp Exam: Breath Sounds Equal, No Distress, Rhonchi, Decreased Bases Cardiology CV Exam: Regular, Normal Sinus Rhythm Gastrointestinal/Abdomen GI Exam: Soft, Non-Tender, Bowel Sounds Present Extremeties Extremities Exam: No Edema Neurologic Neuro Exam: Alert, Awake, Oriented Psychiatric Psych Exam: Appropriate Responses Assessment/Plan Assessment Summary: MIKE/Acute Renal Failure Problem List: (1) Renal failure ICD Codes: N19 - Unspecified kidney failure Status: Acute (2) Sepsis ICD Codes: A41.9 - Sepsis, unspecified organism Status: Acute (3) Open wound of scrotum ICD Codes: S31.30XA - Unspecified open wound of scrotum and testes, initial encounter Status: Acute Plan Possibly has HIVAN. Likely has reached ESRD. Continue dialysis support. Possible CMV retinitis. Consider antiretrovirals. Problem Qualifiers (1) Renal failure: (2) Sepsis: Jv Coello MD Dec 10, 2016 10:01
[2016-12-10 12:00] VITALS: BP 127/81; PULSE 84; RESP 20; TEMP 98.1; O2SAT 100
[2016-12-10] MEDS: RIFAMPIN 150 MG CAP PO SCH ×2 (13:38→20:44)
[2016-12-10] MEDS: LACTOBACILLUS ACIDOPHILUS TAB PO SCH ×2 (13:38→20:44)
[2016-12-10] MEDS: CLARITHROMYCIN 500 MG TAB PO SCH ×2 (13:38→20:44)
[2016-12-10] MEDS: SODIUM CHLORIDE 0.9% IV SCH (13:39)
[2016-12-10] MEDS: GANCICLOVIR IV SCH (13:39)
[2016-12-10] MEDS: ETHAMBUTOL HCL 400 MG TAB PO SCH (13:51)
[2016-12-10 16:01] VITALS: BP 125/80; PULSE 82; RESP 20; TEMP 98; O2SAT 100
[2016-12-10 20:00] VITALS: BP 119/76; PULSE 90; PULSE 97; RESP 18; TEMP 99.1; O2SAT 99
[2016-12-11] VITALS (7 sets, daily range): BP systolic 112–126; BP diastolic 68–86; PULSE 84–89; RESP 16–20; TEMP 97.6–100.2; O2SAT 92–100
[2016-12-11] MEDS: HEPARIN SODIUM - SQ 10,000 UNITS/ML VIAL SQ SCH ×2 (05:00→17:00)
[2016-12-11] MEDS: DOCUSATE SODIUM 50 MG/SENNA 8.6 MG TAB PO SCH ×2 (09:00→21:14)
[2016-12-11] MEDS: RIFAMPIN 150 MG CAP PO SCH ×2 (09:43→21:15)
[2016-12-11] MEDS: CLARITHROMYCIN 500 MG TAB PO SCH ×2 (09:43→21:15)
[2016-12-11] MEDS: SODIUM CHLORIDE 0.9% FLUSH 10 ML FLUSH IV FLUSH SCH ×2 (09:43→21:16)
[2016-12-11] MEDS: LACTOBACILLUS ACIDOPHILUS TAB PO SCH ×2 (09:43→21:15)
[2016-12-11] MEDS: ETHAMBUTOL HCL 400 MG TAB PO SCH (09:43)
--- NOTE | 2016-12-11 09:53 | HHI.PR ---
Subjective Remarks Patient is ambulating with a walker. He is tachycardic, says he feels sob if he is walking more. No nausea or vomiting. No fever or chills. Denies chest pain. Objective Vitals Vital Signs Date Time Temp Pulse Resp B/P (MAP) Pulse Ox O2 Delivery O2 Flow Rate FiO2 12/11/16 08:00 97.9 86 17 113/68 (83) 92 12/11/16 04:00 Room Air 12/11/16 04:00 99.0 89 16 112/78 (89) 99 12/11/16 00:00 99.3 88 16 115/86 (96) 100 12/11/16 00:00 Room Air 12/10/16 20:00 97 12/10/16 20:00 Room Air 12/10/16 20:00 99.1 90 18 119/76 (90) 99 12/10/16 16:01 98.0 82 20 125/80 (95) 100 12/10/16 12:00 98.1 84 20 127/81 (96) 100 I/O 12/10/16 12/10/16 12/10/16 12/11/16 12/11/16 12/11/16 07:00 15:00 23:00 07:00 15:00 23:00 Intake Total 360 ml 600 ml Output Total 400 ml 2000 ml 800 ml Balance -40 ml -2000 ml -200 ml Intake Oral 360 ml 600 ml Output Urine Total 400 ml 800 ml Hemodialysis 2000 ml # Voids 1 2 # Bowel Movements 1 0 Result Diagram: 12/09/16200712/09/162007 Objective Remarks GENERAL: Well-developed well-nourished. In no acute distress. SKIN: Warm and dry. No lesions noted. No rash. Right vas cath noted. HEENT: Normocephalic. Pupils equal and round and reactive to light. EOMs intact. CARDIOVASCULAR: Regular rate and rhythm. No murmur appreciated. RESPIRATORY: No accessory muscle use. Clear to auscultation. Breath sounds equal bilaterally. GASTROINTESTINAL: Abdomen soft, non-tender, nondistended. Bowel sounds x4. MUSCULOSKELETAL: No obvious deformities. No clubbing or cyanosis. No edema. NEUROLOGICAL: Awake and alert. No focal neurological deficits. Moves upper and lower extremities spontaneously. Normal speech. Strength 5/5. PSYCHIATRIC: Appropriate mood and affect; insight and judgment normal. Procedures 11/14/16 hemodialysis catheter placement, right internal jugular Side: Right A/P Problem List: (1) Renal failure ICD Code: N19 - Unspecified kidney failure Status: Acute (2) Sepsis ICD Code: A41.9 - Sepsis, unspecified organism Status: Acute (3) UTI (urinary tract infection) ICD Code: N39.0 - Urinary tract infection, site not specified (4) Chronic kidney disease, stage V ICD Code: N18.5 - Chronic kidney disease, stage 5 (5) HIV (human immunodeficiency virus infection) ICD Code: B20 - Human immunodeficiency virus [HIV] disease (6) Anemia ICD Code: D64.9 - Anemia, unspecified (7) Hypertension ICD Code: I10 - Essential (primary) hypertension (8) Medical non-compliance ICD Code: Z91.19 - Patient's noncompliance with other medical treatment and regimen Assessment and Plan Severe sepsis secondary to UTI, pneumonia - Status post treatment with Zosyn. Patient is immunocompromised, noncompliant with HAART for the last 2 months. - HSV positive. 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 Blood mycobacterial culture growing acid fast organism. Afebrile. - Continue Levaquin. Continue PCP prophylaxis. Fever, resolved. Will repeat blood cultures if temp increases >100.9. Will follow. Acute renal failure superimposed on chronic kidney disease stage V - Nephrology following, remains non-oliguric. - SPEP, serology negative. Creatinine improving some. - HD per nephrology. - Renal biopsy done with results showing inadequate tissue for diagnosis, will need repeat biopsy once fever is resolved. - Dr Shah spoke with patient who desires to forego AVF placement and wants PD. General sx to see patient regarding PD cath placement. HIV/AIDS - CD4 count less than 20. Patient admitted to being noncompliant with HAART meds for the last 2 months. He has been counseled. 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 ID following patient, does not believe to be Ethambutol induced. CMV Labs ordered and pending. Follow. - Applied [employer] Physics Professor came to see patient recommending a retina consult. Awaiting input. Nephrology following patient and monitoring medications. Oral thrush, improved: Continue Diflucan, end date 12/10/16. Anemia - Hemoglobin dropped from 8.5-->7.3-->7.2-->7.1-->6.7. Received transfusion of 2 units PRBCs on 11/16/16. S/p 2 units PRBC 12/09/16 HGB of 9 s/p transfusion. Monitior and transfuse if HGB < 7 or if symptomatic Hypertension, tachycardia: Continue metoprolol. Heart rate controlled. Buttock, perirectal wounds: HSV positive. Valtrex end date 11/22. Then chronic suppression with acyclovir. DVT prophylaxis: Heparin. Discussed with the patient, nurse Problem Qualifiers (1) Renal failure: (2) Sepsis: Zulma Shaver MD Dec 11, 2016 09:53
--- NOTE | 2016-12-11 09:56 | HHI.PR ---
Subjective Remarks Patient in bed, he appears cachectic, however not in visible distress. Says she had diarrhea on/off. No fever or chills. No n/v. Feels weak. doesn't cough much. No new visual deficit. Objective Vitals Vital Signs Date Time Temp Pulse Resp B/P (MAP) Pulse Ox O2 Delivery O2 Flow Rate FiO2 12/11/16 08:00 97.9 86 17 113/68 (83) 92 12/11/16 04:00 Room Air 12/11/16 04:00 99.0 89 16 112/78 (89) 99 12/11/16 00:00 99.3 88 16 115/86 (96) 100 12/11/16 00:00 Room Air 12/10/16 20:00 97 12/10/16 20:00 Room Air 12/10/16 20:00 99.1 90 18 119/76 (90) 99 12/10/16 16:01 98.0 82 20 125/80 (95) 100 12/10/16 12:00 98.1 84 20 127/81 (96) 100 I/O 12/10/16 12/10/16 12/10/16 12/11/16 12/11/16 12/11/16 07:00 15:00 23:00 07:00 15:00 23:00 Intake Total 360 ml 600 ml Output Total 400 ml 2000 ml 800 ml Balance -40 ml -2000 ml -200 ml Intake Oral 360 ml 600 ml Output Urine Total 400 ml 800 ml Hemodialysis 2000 ml # Voids 1 2 # Bowel Movements 1 0 Result Diagram: 12/09/16200712/09/162007 Objective Remarks GENERAL: Well-developed well-nourished. In no acute distress. SKIN: Warm and dry. No lesions noted. No rash. Right vas cath noted. HEENT: Normocephalic. Pupils equal and round and reactive to light. EOMs intact. CARDIOVASCULAR: Regular rate and rhythm. No murmur appreciated. RESPIRATORY: No accessory muscle use. Clear to auscultation. Breath sounds equal bilaterally. GASTROINTESTINAL: Abdomen soft, non-tender, nondistended. Bowel sounds x4. MUSCULOSKELETAL: No obvious deformities. No clubbing or cyanosis. No edema. NEUROLOGICAL: Awake and alert. No focal neurological deficits. Moves upper and lower extremities spontaneously. Normal speech. Strength 5/5. PSYCHIATRIC: Appropriate mood and affect; insight and judgment normal. Procedures 11/14/16 hemodialysis catheter placement, right internal jugular Side: Right A/P Problem List: (1) Renal failure ICD Code: N19 - Unspecified kidney failure Status: Acute (2) Sepsis ICD Code: A41.9 - Sepsis, unspecified organism Status: Acute (3) UTI (urinary tract infection) ICD Code: N39.0 - Urinary tract infection, site not specified (4) Chronic kidney disease, stage V ICD Code: N18.5 - Chronic kidney disease, stage 5 (5) HIV (human immunodeficiency virus infection) ICD Code: B20 - Human immunodeficiency virus [HIV] disease (6) Anemia ICD Code: D64.9 - Anemia, unspecified (7) Hypertension ICD Code: I10 - Essential (primary) hypertension (8) Medical non-compliance ICD Code: Z91.19 - Patient's noncompliance with other medical treatment and regimen Assessment and Plan Severe sepsis secondary to UTI, pneumonia - Status post treatment with Zosyn. Patient is immunocompromised, noncompliant with HAART for the last 2 months. - HSV positive. 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 Blood mycobacterial culture growing acid fast organism. Afebrile. - Continue Levaquin. Continue PCP prophylaxis. Fever, resolved. Will repeat blood cultures if temp increases >100.9. Will follow. Acute renal failure superimposed on chronic kidney disease stage V - Nephrology following, remains non-oliguric. - SPEP, serology negative. Creatinine improving some. - HD per nephrology. - Renal biopsy done with results showing inadequate tissue for diagnosis, will need repeat biopsy once fever is resolved. - Dr Shah spoke with patient who desires to forego AVF placement and wants PD. General sx to see patient regarding PD cath placement. HIV/AIDS - CD4 count less than 20. Patient admitted to being noncompliant with HAART meds for the last 2 months. He has been counseled. 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 ID following patient, does not believe to be Ethambutol induced. CMV Labs ordered and pending. Follow. - Manager Generation came to see patient recommending a retina consult. Awaiting input. Nephrology following patient and monitoring medications. Oral thrush, improved: Continue Diflucan, end date 12/10/16. Anemia - Hemoglobin dropped from 8.5-->7.3-->7.2-->7.1-->6.7. Received transfusion of 2 units PRBCs on 11/16/16. S/p 2 units PRBC 12/09/16 HGB of 9 s/p transfusion. Monitior and transfuse if HGB < 7 or if symptomatic Hypertension, tachycardia: Continue metoprolol. Heart rate controlled. Buttock, perirectal wounds: HSV positive. Valtrex end date 11/22. Then chronic suppression with acyclovir. DVT prophylaxis: Heparin. Discussed with the patient, nurse Problem Qualifiers (1) Renal failure: (2) Sepsis: Zulma Shaver MD Dec 11, 2016 09:56
[2016-12-12] VITALS (8 sets, daily range): BP systolic 119–132; BP diastolic 67–83; PULSE 76–101; RESP 16–18; TEMP 98–99.8; O2SAT 97–100
[2016-12-12] MEDS: HEPARIN SODIUM - SQ 10,000 UNITS/ML VIAL SQ SCH ×2 (05:10→17:00)
[2016-12-12] MEDS: ETHAMBUTOL HCL 400 MG TAB PO SCH (09:05)
[2016-12-12] MEDS: CLARITHROMYCIN 500 MG TAB PO SCH ×2 (09:06→21:19)
[2016-12-12] MEDS: LACTOBACILLUS ACIDOPHILUS TAB PO SCH ×2 (09:06→21:00)
[2016-12-12] MEDS: RIFAMPIN 150 MG CAP PO SCH ×2 (09:06→21:19)
[2016-12-12] MEDS: DOCUSATE SODIUM 50 MG/SENNA 8.6 MG TAB PO SCH ×2 (09:06→21:00)
[2016-12-12] MEDS: SULFAMETHOXAZOLE-TRIMETHOPRIM DS 800-160 MG TAB PO SCH (09:06)
[2016-12-12] MEDS: SODIUM CHLORIDE 0.9% FLUSH 10 ML FLUSH IV FLUSH SCH ×2 (09:06→21:00)
--- NOTE | 2016-12-12 10:33 | HHI.PR ---
Subjective Remarks ays he felt nauseated and vomited once in the morning, Has loose stools after eating. No fever or chills. No abdominal pain. Denies any chest pain or sob, feels weak. Objective Vitals Vital Signs Date Time Temp Pulse Resp B/P (MAP) Pulse Ox O2 Delivery O2 Flow Rate FiO2 12/12/16 08:01 98.1 76 18 131/80 (97) 97 12/12/16 04:03 98.4 84 16 119/67 (84) 100 12/12/16 00:12 Room Air 12/12/16 00:12 98.0 86 18 126/80 (95) 100 12/11/16 20:00 Room Air 12/11/16 19:53 100.2 87 20 120/71 (87) 100 12/11/16 19:00 87 12/11/16 16:00 99.4 88 17 117/81 (93) 100 12/11/16 12:00 98.6 85 17 126/82 (97) 100 I/O 12/11/16 12/11/16 12/11/16 12/12/16 12/12/16 12/12/16 07:00 15:00 23:00 07:00 15:00 23:00 Intake Total 2640 ml Output Total 400 ml 175 ml Balance 2240 ml -175 ml Intake Oral 2640 ml Output Urine Total 400 ml 175 ml # Voids 2 # Bowel Movements 2 Result Diagram: 12/09/16200712/09/16 2008 Imaging Last Impressions Upper Extremity Ultrasound 12/07/16 0000 Signed Impressions: Service Date/Time: Wednesday, December 07, 2016 10:11 - CONCLUSION: Venous mapping as above. Enzo Isbell MD FACR Renal Biopsy CT 12/01/16 0600 Signed Impressions: Service Date/Time: November 14:17 - CONCLUSION: Uncomplicated CT guided biopsy. Alexis Adhikari MD Central Venous Line 11/29/16 0000 Signed Impressions: Service Date/Time: Tuesday, November 29, 2016 00:00 - CONCLUSION: Uncomplicated catheter removal. Solitario Diaz MD Catheter Placement X-Ray 11/29/16 0000 Signed Impressions: Service Date/Time: Tuesday, November 29, 2016 13:58 - CONCLUSION: Uncomplicated PermaCath placement as above. Solitario Diaz MD Tumor Localization 11/14/16 0000 Signed Impressions: Service Date/Time: Monday, November 14, 2016 11:38 - CONCLUSION: Negative scan Solitario Diaz MD Chest X-Ray 11/13/16 0000 Signed Impressions: Service Date/Time: Sunday, November 13, 2016 16:02 - CONCLUSION: No acute cardiopulmonary disease. Quincy Medellin MD Renal Ultrasound 11/05/16 0000 Signed Impressions: Service Date/Time: Saturday, November 05, 2016 19:17 - CONCLUSION: Diffusely echogenic kidneys indicating medical renal disease. Dorian Murry MD Abdomen/Pelvis CT 11/05/16 0000 Signed Impressions: Service Date/Time: Saturday, November 05, 2016 17:19 - CONCLUSION: 1. 4 mm calculus in the right renal pelvis/ureteropelvic junction with mild adjacent perinephric/periureteral stranding. No evidence of hydronephrosis. 2. 1 cm round hypodensity in the anterior right mid kidney statistically most likely to represent a cyst. 3. 3.7 cm hypodensity in the right lobe of the liver air the dome of the diaphragm. This finding is nonspecific on noncontrast CT. The most likely etiologies include hemangioma and cyst. It could be further evaluated with ultrasound nonemergent followup MRI of the abdomen. 4. Mild dilated proximal right common iliac artery. Dorian Murry MD Objective Remarks GENERAL: Well-developed well-nourished. In no acute distress. SKIN: Warm and dry. No lesions noted. No rash. Right vas cath noted. HEENT: Normocephalic. Pupils equal and round and reactive to light. EOMs intact. CARDIOVASCULAR: Regular rate and rhythm. No murmur appreciated. RESPIRATORY: No accessory muscle use. Clear to auscultation. Breath sounds equal bilaterally. GASTROINTESTINAL: Abdomen soft, non-tender, nondistended. Bowel sounds x4. MUSCULOSKELETAL: No obvious deformities. No clubbing or cyanosis. No edema. NEUROLOGICAL: Awake and alert. No focal neurological deficits. Moves upper and lower extremities spontaneously. Normal speech. Strength 5/5. PSYCHIATRIC: Appropriate mood and affect; insight and judgment normal. Procedures 11/14/16 hemodialysis catheter placement, right internal jugular Side: Right A/P Problem List: (1) Renal failure ICD Code: N19 - Unspecified kidney failure Status: Acute (2) Sepsis ICD Code: A41.9 - Sepsis, unspecified organism Status: Acute (3) UTI (urinary tract infection) ICD Code: N39.0 - Urinary tract infection, site not specified (4) Chronic kidney disease, stage V ICD Code: N18.5 - Chronic kidney disease, stage 5 (5) HIV (human immunodeficiency virus infection) ICD Code: B20 - Human immunodeficiency virus [HIV] disease (6) Anemia ICD Code: D64.9 - Anemia, unspecified (7) Hypertension ICD Code: I10 - Essential (primary) hypertension (8) Medical non-compliance ICD Code: Z91.19 - Patient's noncompliance with other medical treatment and regimen Assessment and Plan Severe sepsis secondary to UTI, pneumonia - Status post treatment with Zosyn. Patient is immunocompromised, noncompliant with HAART for the last 2 months. - HSV positive. 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 Blood mycobacterial culture growing acid fast organism. Afebrile. - Continue Levaquin. Continue PCP prophylaxis. Nausea, vomiting x1 time, chronic diarrhea. Antiemetics as need. Will check for C diff Fever, resolved. Will repeat blood cultures if temp increases >100.9. Will follow. Acute renal failure superimposed on chronic kidney disease stage V - Nephrology following, remains non-oliguric. - SPEP, serology negative. Creatinine improving some. - HD per nephrology. - Renal biopsy done with results showing inadequate tissue for diagnosis, will need repeat biopsy once fever is resolved. - Dr Shah spoke with patient who desires to forego AVF placement and wants PD. General sx to see patient regarding PD cath placement. HIV/AIDS - CD4 count less than 20. Patient admitted to being noncompliant with HAART meds for the last 2 months. He has been counseled. 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 ID following patient, does not believe to be Ethambutol induced. CMV Labs ordered and pending. Follow. - Wellness Nurse came to see patient recommending a retina consult. Awaiting input. Nephrology following patient and monitoring medications. Oral thrush, improved: Continue Diflucan, end date 12/10/16. Anemia - Hemoglobin dropped from 8.5-->7.3-->7.2-->7.1-->6.7. Received transfusion of 2 units PRBCs on 11/16/16. S/p 2 units PRBC 12/09/16 HGB of 9 s/p transfusion. Monitior and transfuse if HGB < 7 or if symptomatic Hypertension, tachycardia: Continue metoprolol. Heart rate controlled. Buttock, perirectal wounds: HSV positive. Valtrex end date 11/22. Then chronic suppression with acyclovir. DVT prophylaxis: Heparin. Discussed with the patient, nurse Problem Qualifiers (1) Renal failure: (2) Sepsis: Zulma Shaver MD Dec 12, 2016 10:33
--- NOTE | 2016-12-12 13:14 | HHI.IDPN ---
Subjective Subjective Remarks Patient is a 50-year-old male, with known HIV, end stage AIDS, non compliant He presented with multiple complaints and was diagnosed with disseminated MAC, ARF He was started on Bix, ethambutol for MAC, BC with AFB, no ID yet Has been afebrile since EMB started Has been getting HD - had renal biopsy and results pending C/O blurry vision Ophtha eval showed vasculitis, possible CMV retinitis Started on IV Ganciclovir 12/04 Notes reviewed Feels good Vision with some improvement CMV IgG (+), repeat CMV PCR negative (+) loose stool, not frequent Being evaluated by surgery for PD cath BC with AFB no ID yet Antibiotics Levaquin Biaxin Ethambutol fluconazole Bactrim PCP prophylaxis Ganciclovir IV Lines permacath Past Medical History HIV, for 20+years, noncompliant with medications for the past 2 months Kidney stones Allergies: Coded Allergies: No Known Allergies (Unverified , 11/05/16) Objective . Vital Signs Date Time Temp Pulse Resp B/P (MAP) Pulse Ox O2 Delivery O2 Flow Rate FiO2 12/12/16 08:01 98.1 76 18 131/80 (97) 97 12/12/16 04:03 98.4 84 16 119/67 (84) 100 12/12/16 00:12 Room Air 12/12/16 00:12 98.0 86 18 126/80 (95) 100 12/11/16 20:00 Room Air 12/11/16 19:53 100.2 87 20 120/71 (87) 100 12/11/16 19:00 87 12/11/16 16:00 99.4 88 17 117/81 (93) 100 Imaging Last Impressions Renal Biopsy CT 12/01/16 0600 Signed Impressions: Service Date/Time: November 14:17 - CONCLUSION: Uncomplicated CT guided biopsy. Alexis Adhikari MD Central Venous Line 11/29/16 0000 Signed Impressions: Service Date/Time: Tuesday, November 29, 2016 00:00 - CONCLUSION: Uncomplicated catheter removal. Solitario Diaz MD Catheter Placement X-Ray 11/29/16 0000 Signed Impressions: Service Date/Time: Tuesday, November 29, 2016 13:58 - CONCLUSION: Uncomplicated PermaCath placement as above. Solitario Diaz MD Tumor Localization 11/14/16 0000 Signed Impressions: Service Date/Time: Monday, November 14, 2016 11:38 - CONCLUSION: Negative scan Solitario Diaz MD Chest X-Ray 11/13/16 0000 Signed Impressions: Service Date/Time: Sunday, November 13, 2016 16:02 - CONCLUSION: No acute cardiopulmonary disease. Quincy Medellin MD Renal Ultrasound 11/05/16 0000 Signed Impressions: Service Date/Time: Saturday, November 05, 2016 19:17 - CONCLUSION: Diffusely echogenic kidneys indicating medical renal disease. Dorian Murry MD Abdomen/Pelvis CT 11/05/16 0000 Signed Impressions: Service Date/Time: Saturday, November 05, 2016 17:19 - CONCLUSION: 1. 4 mm calculus in the right renal pelvis/ureteropelvic junction with mild adjacent perinephric/periureteral stranding. No evidence of hydronephrosis. 2. 1 cm round hypodensity in the anterior right mid kidney statistically most likely to represent a cyst. 3. 3.7 cm hypodensity in the right lobe of the liver air the dome of the diaphragm. This finding is nonspecific on noncontrast CT. The most likely etiologies include hemangioma and cyst. It could be further evaluated with ultrasound nonemergent followup MRI of the abdomen. 4. Mild dilated proximal right common iliac artery. Dorian Murry MD Physical Exam GENERAL: awake and alert, not in respiratory distress. SKIN: Warm and dry. HEAD: Atraumatic. Normocephalic. No temporal wasting, or tenderness. EYES: [place] conjunctiva. No petechia or hemorrhage. No scleral icterus. No injection or drainage. EARS, NOSE AND THROAT: Nose without bleeding or purulent nasal discharge. Mucous membranes pink and moist. No oral lesions noted. No exudate. No oral thrush. NECK: Trachea midline. Supple and not tender, no meningeal signs CARDIOVASCULAR: Regular rate and rhythm. No murmurs, rubs or gallops heard RESPIRATORY: Clear to auscultation. Breath sounds equal bilaterally. No rales , wheezing or rhonchi ABDOMEN: Soft, non-tender, nondistended. Bowel sounds present and normoactive. No guarding. No rebound. No organomegaly. EXTREMITIES: No clubbing, cyanosis, or edema.No joint effusion, has good ROM. No calf tenderness. Well perfused and warm. NEUROLOGICAL: Awake alert Non-focal PSYCHIATRIC: Normal affect, calm and cooperative. 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
--- NOTE | 2016-12-12 19:39 | HHI.NPPN ---
Subjective History of Present Illness 50-year-old male with past medical history of HIV disease for more than 20 years and history of renal stone who came to the hospital with complaint of back pain. The patient has back pain going on for the last 2 months off and on and he came to the emergency department yesterday with worsening pain. Additional Remarks Patient is alert, still has low grade fever off and on, not in distress. Review of Systems General Constitutional: Fatigue Cardiovascular Cardiac: MIRZA Objective Data Data 12/12/16 12/13/16 19:00 07:00 Intake Total 380 ml Output Total 800 ml Balance -420 ml Intake Oral 380 ml Output Urine Total 800 ml # Bowel Movements 2 Vital Signs Date Time Temp Pulse Resp B/P (MAP) Pulse Ox O2 Delivery O2 Flow Rate FiO2 12/12/16 16:01 98.2 80 18 128/76 (93) 100 12/12/16 12:01 98.0 89 18 127/83 (98) 100 12/12/16 08:17 80 12/12/16 08:01 98.1 76 18 131/80 (97) 97 12/12/16 08:00 Room Air 12/12/16 04:03 98.4 84 16 119/67 (84) 100 12/12/16 00:12 Room Air 12/12/16 00:12 98.0 86 18 126/80 (95) 100 12/11/16 20:00 Room Air 12/11/16 19:53 100.2 87 20 120/71 (87) 100 -: 12/09/16200712/09/162007 Physical Exam General Appearance: No Acute Distress, Comfortable Eyes Eye Exam: Pupils Equal Throat Throat Exam: Oral Mucosa [place] & Moist Pulmonary Resp Exam: Breath Sounds Equal, No Distress, Rhonchi, Decreased Bases Cardiology CV Exam: Regular, Normal Sinus Rhythm Gastrointestinal/Abdomen GI Exam: Soft, Non-Tender, Bowel Sounds Present Extremeties Extremities Exam: No Edema Neurologic Neuro Exam: Alert, Awake, Oriented Psychiatric Psych Exam: Appropriate Responses Assessment/Plan Assessment Summary: MIKE/Acute Renal Failure Problem List: (1) Renal failure ICD Codes: N19 - Unspecified kidney failure Status: Acute (2) Sepsis ICD Codes: A41.9 - Sepsis, unspecified organism Status: Acute (3) Open wound of scrotum ICD Codes: S31.30XA - Unspecified open wound of scrotum and testes, initial encounter Status: Acute Plan c/o blurry vision left eye Remain non oliguric. SPEP was negative. Complements normal, other serology also negative. BP is better, on Metoprolol to 50 mg BID. If renal function will not improve, will consider Renal Biopsy once infection is controlled. Fever pattern is better, ID is following. Now on Bactrim, Acyclovir, Clarithromycin and Ethambutol. No improvement in renal function. Possibly has End stage renal disease. Got PermCath. 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 No need to repeat the renal Biopsy as clinically he is showing no improvement, and the with advance HIV , the treatment options are limited, cannot be given immunosuppressive drugs. I discussed this in detail with patient. Now he change his mind and want to go for PD. He understand increase risk of infection due to advance HIV. Seen by Surgery, still has fever. I will ask ID if OK to go for PD catheter. Also spoke to him about compliance for dialysis. Problem Qualifiers (1) Renal failure: (2) Sepsis: Kwadwo Shah MD Dec 12, 2016 19:39
[2016-12-13] VITALS (8 sets, daily range): BP systolic 120–137; BP diastolic 71–88; PULSE 92–106; RESP 16–20; TEMP 97.9–101.5; O2SAT 95–100
[2016-12-13] MEDS: HEPARIN SODIUM - SQ 10,000 UNITS/ML VIAL SQ SCH ×2 (04:04→17:00)
[2016-12-13] MEDS: SODIUM CHLORIDE 0.9% FLUSH 10 ML FLUSH IV FLUSH SCH ×2 (07:34→19:57)
--- NOTE | 2016-12-13 10:34 | HHI.NPPN ---
Subjective History of Present Illness 50-year-old male with past medical history of HIV disease for more than 20 years and history of renal stone who came to the hospital with complaint of back pain. The patient has back pain going on for the last 2 months off and on and he came to the emergency department yesterday with worsening pain. Additional Remarks Patient is alert, seen in AM during HD,not in distress. Review of Systems General Constitutional: Fatigue Cardiovascular Cardiac: MIRZA Objective Data Data Vital Signs Date Time Temp Pulse Resp B/P (MAP) Pulse Ox O2 Delivery O2 Flow Rate FiO2 12/13/16 08:00 99.4 92 20 133/87 (102) 100 12/13/16 04:00 99.4 97 18 121/71 (88) 100 12/13/16 00:00 101.0 104 16 133/76 (95) 98 12/12/16 20:01 101 12/12/16 20:00 Room Air 12/12/16 20:00 99.8 99 16 132/79 (96) 99 12/12/16 16:01 98.2 80 18 128/76 (93) 100 12/12/16 12:01 98.0 89 18 127/83 (98) 100 -: 12/09/16200712/09/162007 Physical Exam General Appearance: No Acute Distress, Comfortable Eyes Eye Exam: Pupils Equal Throat Throat Exam: Oral Mucosa [place] & Moist Pulmonary Resp Exam: Breath Sounds Equal, No Distress, Rhonchi, Decreased Bases Cardiology CV Exam: Regular, Normal Sinus Rhythm Gastrointestinal/Abdomen GI Exam: Soft, Non-Tender, Bowel Sounds Present Extremeties Extremities Exam: No Edema Neurologic Neuro Exam: Alert, Awake, Oriented Psychiatric Psych Exam: Appropriate Responses Assessment/Plan Assessment Summary: MIKE/Acute Renal Failure Problem List: (1) Renal failure ICD Codes: N19 - Unspecified kidney failure Status: Acute (2) Sepsis ICD Codes: A41.9 - Sepsis, unspecified organism Status: Acute (3) Open wound of scrotum ICD Codes: S31.30XA - Unspecified open wound of scrotum and testes, initial encounter Status: Acute Plan c/o blurry vision left eye Remain non oliguric. SPEP was negative. Complements normal, other serology also negative. BP is better, on Metoprolol to 50 mg BID. If renal function will not improve, will consider Renal Biopsy once infection is controlled. Fever pattern is better, ID is following. Now on Bactrim, Acyclovir, Clarithromycin and Ethambutol. No improvement in renal function. Possibly has End stage renal disease. Got PermCath. 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 No need to repeat the renal Biopsy as clinically he is showing no improvement, and the with advance HIV , the treatment options are limited, cannot be given immunosuppressive drugs. I discussed this in detail with patient. Now he change his mind and want to go for PD from ID stand point. He understand increase risk of infection due to advance HIV. HD now, remove fluid as tolerated. Has fever off and on, D/W ID, Dr. Chambers, she is OK with him going for PD catheter. Problem Qualifiers (1) Renal failure: (2) Sepsis: Kwadwo Shah MD Dec 13, 2016 10:34
--- NOTE | 2016-12-13 10:54 | HHI.PR ---
Subjective Remarks patient seen in HD, says he is not nauseated today. No vomiting. Has diarrhea as usual after eating at times. No fever or chills.No abd pain. No chest pain or sob. Feels tired and sleepy after HD. Objective Vitals Vital Signs Date Time Temp Pulse Resp B/P (MAP) Pulse Ox O2 Delivery O2 Flow Rate FiO2 12/13/16 08:00 99.4 92 20 133/87 (102) 100 12/13/16 04:00 99.4 97 18 121/71 (88) 100 12/13/16 00:00 101.0 104 16 133/76 (95) 98 12/12/16 20:01 101 12/12/16 20:00 Room Air 12/12/16 20:00 99.8 99 16 132/79 (96) 99 12/12/16 16:01 98.2 80 18 128/76 (93) 100 12/12/16 12:01 98.0 89 18 127/83 (98) 100 I/O 12/12/16 12/12/16 12/12/16 12/13/16 12/13/16 12/13/16 07:00 15:00 23:00 07:00 15:00 23:00 Intake Total 380 ml 240 ml Output Total 175 ml 800 ml 700 ml Balance -175 ml -420 ml -460 ml Intake Oral 380 ml 240 ml Output Urine Total 175 ml 800 ml 700 ml # Bowel Movements 2 1 Result Diagram: 12/09/16200712/09/16 2008 Imaging Last Impressions Upper Extremity Ultrasound 12/07/16 0000 Signed Impressions: Service Date/Time: Wednesday, December 07, 2016 10:11 - CONCLUSION: Venous mapping as above. Enzo Isbell MD FACR Renal Biopsy CT 12/01/16 0600 Signed Impressions: Service Date/Time: November 14:17 - CONCLUSION: Uncomplicated CT guided biopsy. Alexis Adhikari MD Central Venous Line 11/29/16 0000 Signed Impressions: Service Date/Time: Tuesday, November 29, 2016 00:00 - CONCLUSION: Uncomplicated catheter removal. Solitario Diaz MD Catheter Placement X-Ray 11/29/16 0000 Signed Impressions: Service Date/Time: Tuesday, November 29, 2016 13:58 - CONCLUSION: Uncomplicated PermaCath placement as above. Solitario Diaz MD Tumor Localization 11/14/16 0000 Signed Impressions: Service Date/Time: Monday, November 14, 2016 11:38 - CONCLUSION: Negative scan Solitario Diaz MD Chest X-Ray 11/13/16 0000 Signed Impressions: Service Date/Time: Sunday, November 13, 2016 16:02 - CONCLUSION: No acute cardiopulmonary disease. Quincy Medellin MD Renal Ultrasound 11/05/16 0000 Signed Impressions: Service Date/Time: Saturday, November 05, 2016 19:17 - CONCLUSION: Diffusely echogenic kidneys indicating medical renal disease. Dorian Murry MD Abdomen/Pelvis CT 11/05/16 0000 Signed Impressions: Service Date/Time: Saturday, November 05, 2016 17:19 - CONCLUSION: 1. 4 mm calculus in the right renal pelvis/ureteropelvic junction with mild adjacent perinephric/periureteral stranding. No evidence of hydronephrosis. 2. 1 cm round hypodensity in the anterior right mid kidney statistically most likely to represent a cyst. 3. 3.7 cm hypodensity in the right lobe of the liver air the dome of the diaphragm. This finding is nonspecific on noncontrast CT. The most likely etiologies include hemangioma and cyst. It could be further evaluated with ultrasound nonemergent followup MRI of the abdomen. 4. Mild dilated proximal right common iliac artery. Dorian Murry MD Objective Remarks GENERAL: Well-developed well-nourished. In no acute distress. SKIN: Warm and dry. No lesions noted. No rash. Right vas cath noted. HEENT: Normocephalic. Pupils equal and round and reactive to light. EOMs intact. CARDIOVASCULAR: Regular rate and rhythm. No murmur appreciated. RESPIRATORY: No accessory muscle use. Clear to auscultation. Breath sounds equal bilaterally. GASTROINTESTINAL: Abdomen soft, non-tender, nondistended. Bowel sounds x4. MUSCULOSKELETAL: No obvious deformities. No clubbing or cyanosis. No edema. NEUROLOGICAL: Awake and alert. No focal neurological deficits. Moves upper and lower extremities spontaneously. Normal speech. Strength 5/5. PSYCHIATRIC: Appropriate mood and affect; insight and judgment normal. Procedures 11/14/16 hemodialysis catheter placement, right internal jugular Side: Right A/P Problem List: (1) Renal failure ICD Code: N19 - Unspecified kidney failure Status: Acute (2) Sepsis ICD Code: A41.9 - Sepsis, unspecified organism Status: Acute (3) UTI (urinary tract infection) ICD Code: N39.0 - Urinary tract infection, site not specified (4) Chronic kidney disease, stage V ICD Code: N18.5 - Chronic kidney disease, stage 5 (5) HIV (human immunodeficiency virus infection) ICD Code: B20 - Human immunodeficiency virus [HIV] disease (6) Anemia ICD Code: D64.9 - Anemia, unspecified (7) Hypertension ICD Code: I10 - Essential (primary) hypertension (8) Medical non-compliance ICD Code: Z91.19 - Patient's noncompliance with other medical treatment and regimen Assessment and Plan Severe sepsis secondary to UTI, pneumonia - Status post treatment with Zosyn. Patient is immunocompromised, noncompliant with HAART for the last 2 months. - HSV positive. 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 Blood mycobacterial culture growing acid fast organism. Afebrile. - Continue Levaquin. Continue PCP prophylaxis. Nausea, vomiting x1 time, chronic diarrhea. Antiemetics as need. Will check for C diff Fever, resolved. Will repeat blood cultures if temp increases >100.9. Will follow. Acute renal failure superimposed on chronic kidney disease stage V - Nephrology following, remains non-oliguric. - SPEP, serology negative. Creatinine improving some. - HD per nephrology. - Renal biopsy done with results showing inadequate tissue for diagnosis, will need repeat biopsy once fever is resolved. - Dr Shah spoke with patient who desires to forego AVF placement and wants PD. General sx to see patient regarding PD cath placement. HIV/AIDS - CD4 count less than 20. Patient admitted to being noncompliant with HAART meds for the last 2 months. He has been counseled. 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 ID following patient, does not believe to be Ethambutol induced. CMV Labs ordered and pending. Follow. - Evaluation Analyst came to see patient recommending a retina consult. Awaiting input. Nephrology following patient and monitoring medications. Oral thrush, improved: Continue Diflucan, end date 12/10/16. Anemia - Hemoglobin dropped from 8.5-->7.3-->7.2-->7.1-->6.7. Received transfusion of 2 units PRBCs on 11/16/16. S/p 2 units PRBC 12/09/16 HGB of 9 s/p transfusion. Monitior and transfuse if HGB < 7 or if symptomatic Hypertension, tachycardia: Continue metoprolol. Heart rate controlled. Buttock, perirectal wounds: HSV positive. Valtrex end date 11/22. Then chronic suppression with acyclovir. DVT prophylaxis: Heparin. Discussed with the patient, nurse Problem Qualifiers (1) Renal failure: (2) Sepsis: Zulma Shaver MD Dec 13, 2016 10:54
[2016-12-13] MEDS: HEPARIN SODIUM - IV 10,000 UNITS/10 ML VIAL PRN (11:49)
[2016-12-13] MEDS: GENTAMICIN SULFATE (DIALYSIS USE ONLY) 20 MG/2 ML VIAL IV PRN (11:49)
[2016-12-13] MEDS: EPOETIN ALFA 10,000 UNITS/ML VIAL IV PRN (11:49)
[2016-12-13] MEDS: SODIUM CHLOR 0.9% 1000 ML INJ 1,000 ML IV PRN (11:50)
[2016-12-13] MEDS: CLARITHROMYCIN 500 MG TAB PO SCH ×2 (12:36→19:56)
[2016-12-13] MEDS: ETHAMBUTOL HCL 400 MG TAB PO SCH (12:36)
[2016-12-13] MEDS: DOCUSATE SODIUM 50 MG/SENNA 8.6 MG TAB PO SCH ×2 (12:36→19:57)
[2016-12-13] MEDS: RIFAMPIN 150 MG CAP PO SCH ×2 (12:36→19:56)
[2016-12-13] MEDS: LACTOBACILLUS ACIDOPHILUS TAB PO SCH ×2 (12:37→19:57)
[2016-12-13] MEDS: SODIUM CHLORIDE 0.9% IV SCH (12:39)
[2016-12-13] MEDS: GANCICLOVIR IV SCH (12:39)
[2016-12-13 19:50] LABS: MEAN CELL VOLUME 86.5 FL (80.0-100.0); MEAN CORPUSCULAR HEMOGLOBIN 29.2 PG (27.0-34.0); MEAN CORPUSCULAR HGB CONC 33.7 % (32.0-36.0); PLATELET COUNT 104 TH/MM3 (150-450); RED BLOOD COUNT 3.35 MIL/MM3 (4.50-5.90); RED CELL DISTRIBUTION WIDTH 15.1 % (11.6-17.2); WHITE BLOOD COUNT 7.3 TH/MM3 (4.0-11.0)
[2016-12-13 19:54] LABS: HEMO FLAGS AUTO DIFF
[2016-12-13] MEDS: ACETAMINOPHEN 325 MG TAB PO PRN (19:57)
[2016-12-13 20:37] LABS: ALT (GPT) 15 U/L (12-78); ANION GAP 10 MEQ/L (5-15); AST (GOT) 21 U/L (15-37); BICARBONATE 29.1 MEQ/L (21.0-32.0); BLOOD UREA NITROGEN 25 MG/DL (7-18); CHLORIDE 94 MEQ/L (98-107); GLOMERULAR FILTRATION RATE 14 ML/MIN (>89); POTASSIUM 3.5 MEQ/L (3.5-5.1); SODIUM (NA) 133 MEQ/L (136-145)
[2016-12-13 20:39] LABS: ALKALINE PHOSPHATASE 92 U/L (45-117); TOTAL BILIRUBIN ADULT 0.8 MG/DL (0.2-1.0)
[2016-12-13 20:41] LABS: BANDS 1 % (0-6); BASOPHILS 1 % (0-2); METAMYELOCYTES 2 % (0-1); NEUTROPHIL # MANUAL DIFF 7.1 TH/MM3 (1.8-7.7); POLYS (SEG NEUTROPHILS) 94 % (16-70); WBC DIFF SAMPLE 100
[2016-12-13 20:42] LABS: SCAN/DIFF FINAL DIFF MANUAL
[2016-12-14] VITALS (8 sets, daily range): BP systolic 113–132; BP diastolic 71–79; PULSE 68–106; RESP 17–20; TEMP 97.5–101.9; O2SAT 95–100
[2016-12-14] MEDS: HEPARIN SODIUM - SQ 10,000 UNITS/ML VIAL SQ SCH (05:00)
[2016-12-14] MEDS: DOCUSATE SODIUM 50 MG/SENNA 8.6 MG TAB PO SCH ×2 (07:26→21:00)
[2016-12-14] MEDS: SODIUM CHLORIDE 0.9% FLUSH 10 ML FLUSH IV FLUSH SCH ×2 (07:26→20:47)
[2016-12-14] MEDS: ACETAMINOPHEN 325 MG TAB PO PRN (08:30)
[2016-12-14] MEDS ORDERED: BUPIVACAINE/EPINEPHRINE 0.25% PF 10 ML VIAL INFIL ONE (09:45)
--- NOTE | 2016-12-14 10:32 | PD.OP ---
Operative Report Date of Surgery: Dec 14, 2016 Preoperative Diagnosis: ESRD, HIV/AIDS Desire for PD Postoperative Diagnosis: same Procedure: Lap assisted PD catheter placement Anesthesia: general Surgeon: Sadi Montana Concrete Paving Machine Operator(s): Peggy Operation and Findings: successful placement of swan neck PD catheter, easy flow in and out. EBL minimal. Sadi Montana MD Dec 14, 2016 10:32
[2016-12-14] MEDS ORDERED: ACETAMINOPHEN/HYDROcodone 325 MG/5 MG TAB PO PRN ×2 (10:45)
[2016-12-14] MEDS ORDERED: SODIUM CHLORIDE 0.9% FLUSH 10 ML FLUSH IV FLUSH PRN (10:45)
[2016-12-14] MEDS ORDERED: Post-op Orders (for Pharmacy) MISC XX ONE (10:45)
[2016-12-14] MEDS ORDERED: DO NOT ADM ANY ANTICOAGULANT DRUGS PRN (11:30)
[2016-12-14] MEDS: SULFAMETHOXAZOLE-TRIMETHOPRIM DS 800-160 MG TAB PO SCH (12:56)
[2016-12-14] MEDS: ETHAMBUTOL HCL 400 MG TAB PO SCH (12:56)
[2016-12-14] MEDS: RIFAMPIN 150 MG CAP PO SCH ×2 (12:56→22:08)
[2016-12-14] MEDS: CLARITHROMYCIN 500 MG TAB PO SCH ×2 (12:56→22:08)
--- NOTE | 2016-12-14 13:03 | MP ---
cc: DARRYL DAY M.D., ABDUL Q. MD SANCHEZ,BEST CRAMER MD DATE OF SURGERY 12/14/2016 PREOPERATIVE DIAGNOSIS End-stage renal disease, HIV/AIDS, desire for peritoneal dialysis. POSTOPERATIVE DIAGNOSES End-stage renal disease, HIV/AIDS, desire for peritoneal dialysis. PROCEDURE Laparoscopic-assisted peritoneal dialysis catheter placement. SURGEON Dr. Darryl Day ANESTHESIA General INDICATIONS This is a unfortunate 50-year-old -Stateless gentleman who has had untreated HIV and now has AIDS. He who came in with renal failure. He has been evaluated by both nephrology and infectious disease who have approved of placement of peritoneal dialysis catheter in the face of his current medical situation. He has received intravenous antibiotics for about five days. He has intermittent low grade fevers. The patient has desire for peritoneal dialysis catheter placement. INTRAOPERATIVE FINDINGS Successful placement of swan-neck peritoneal dialysis catheter exiting the right upper quadrant. There was easy flow of fluid in and out. ESTIMATED BLOOD LOSS Minimal. DESCRIPTION OF PROCEDURE IN DETAIL The patient identified as Karena Hu, taken to the operating room, placed in the supine position. Sequential compression devices were placed on bilateral lower extremities. Following induction of adequate general endotracheal anesthesia, the patient's abdomen was prepped and draped in the usual sterile fashion with Betadine. A time-out procedure was performed. Following completion of the time-out procedure to everyone's satisfaction within the room, the previously marked exit site was remarked with a marking pen and local anesthetic was placed. Local anesthetic was placed first in the left subcostal position and about a 1-1/2 cm transverse incision was carried out with scalpel. Dissection continued posteriorly through the subcutaneous tissue. The anterior fascia was incised with a scalpel. Underlying muscles spread. The posterior fascia was spread with a hemostat and the peritoneum was brought up with a hemostat into the surgical view. A small incision in the peritoneum was made with a scalpel and the 5-mm balloon-tip applied medical trocar was placed through the opening in the peritoneum into the peritoneal cavity, its balloon inflated to an insufflation to a level of 15 mmHg ensued. A left lateral 5 mm trocar was placed in the peritoneal cavity under direct laparoscopic view after incision in the skin with a scalpel. The site inferior to and to the right of the umbilicus was selected for entry of the peritoneal dialysis catheter into the preperitoneal space and then the peritoneum. Local anesthetic was placed and a 1-1/2 cm transverse incision was carried out with a scalpel. A 5 mm trocar was then placed through the anterior fascia and the rectus muscle into the preperitoneal space. It was then guided inferiorly for a tunneling of about 6 cm and then perforated the peritoneum. Care was taken to avoid the urinary bladder. The curled portion of the peritoneal dialysis catheter was then placed through the 5-mm trocar into the peritoneal cavity and held in place with a grasper. The trocar was removed from the overlying catheter and the catheter cloth cuff was then implanted into the layers of the abdominal wall with a hemostat. The curled portion of the catheter set in the dependent portion of the pelvis between the intraperitoneal rectum and the urinary bladder. Local anesthetic was then placed along the proposed subcutaneous track of the peritoneal dialysis catheter. A counter incision was made superior and right lateral to the umbilicus and the catheter was tunneled. The swan-neck portion of the catheter was then tunneled using the Don tunneler just lateral to the marked exit site. The catheters were then measured, connected with the titanium connector and 2-0 silk ties. The catheter lay flat within the subcutaneous tissue. Titanium caps were placed on the catheter and about 900 cc of fluid was run through the peritoneal dialysis catheter without difficulty. About 750 cc with withdrawn without difficulty. A plastic tip was placed on the titanium caps. The photographs were taken of the completed placement of the catheter. The trocar was removed under direct visualization. There was no evidence of bleeding from the trocar site and the abdomen was desufflated through this and the subcostal port was then removed. The posterior fascia and peritoneum was closed with a single interrupted [id number] 2-0 Vicryl suture. Anterior fascia was closed with interrupted 2-0 Vicryl suture. Skin incisions were approximated with 4-0 Monocryl subcuticular sutures. Dressings were applied with Mastisol, half inch brown Steri-Strips. A Biopatch was placed at the catheter exit site with 4x4s and a large rectangular Tegaderm. The patient tolerated the procedure without apparent complication. Sponge, needle and instrument counts were correct at the end of the case. MD ELVI Olvera/NIDHI /10:27 AM /12:39 PM
[2016-12-14] MEDS ORDERED: PHENYLEPHRINE HCL 10 MG/ML VIAL IV ONE (13:11)
[2016-12-14] MEDS ORDERED: GLYCOPYRROLATE 1 MG/5 ML SYRINGE IV PUSH ONE (13:11)
[2016-12-14] MEDS ORDERED: ROCURONIUM INJ 50 MG/5 ML SYRINGE IV PUSH ONE (13:11)
[2016-12-14] MEDS ORDERED: PROPOFOL 200 MG/20 ML AMP IV ONE (13:11)
[2016-12-14] MEDS ORDERED: NEOSTIGMINE 3 MG/3 ML SYR IV ONE (13:11)
[2016-12-14] MEDS ORDERED: ONDANSETRON HCL 4 MG/2 ML VIAL IV PUSH ONE (13:11)
--- NOTE | 2016-12-14 13:42 | HHI.PR ---
Subjective Remarks I nbed. No nausea today, eating fairly well. Diarrhea on/off after eating. No fever or chills. Denies chest pain or sob. Objective Vitals Vital Signs Date Time Temp Pulse Resp B/P (MAP) Pulse Ox O2 Delivery O2 Flow Rate FiO2 12/14/16 12:00 98.1 85 18 113/71 (85) 100 12/14/16 11:00 87 16 107/66 (80) 98 Room Air 12/14/16 10:45 93 16 112/69 (83) 99 Room Air 12/14/16 10:30 88 16 116/71 (86) 98 Room Air 12/14/16 10:28 Room Air 21 12/14/16 10:15 91 16 116/69 (85) 99 Room Air 12/14/16 10:10 98.7 98 16 124/72 (89) 97 Room Air 12/14/16 08:00 101.9 102 18 122/72 (89) 100 12/14/16 04:00 100.5 106 17 132/79 (96) 96 12/14/16 03:55 Room Air 12/14/16 00:00 100.1 99 17 116/72 (87) 95 12/14/16 00:00 Room Air 12/13/16 21:56 101.0 12/13/16 20:15 104 12/13/16 20:00 101.5 104 17 120/88 (99) 95 12/13/16 20:00 Room Air 12/13/16 16:00 97.9 97 20 127/86 (100) 100 12/13/16 14:23 Room Air 21 I/O 12/13/16 12/13/16 12/13/16 12/14/16 12/14/16 12/14/16 07:00 15:00 23:00 07:00 15:00 23:00 Intake Total 240 ml 1320 ml 0 ml 300 ml Output Total 700 ml 2500 ml 600 ml 800 ml Balance -460 ml -2500 ml 720 ml -800 ml 300 ml Intake Oral 240 ml 1320 ml 0 ml IV Total 300 ml Output Urine Total 700 ml 600 ml 800 ml Hemodialysis 2500 ml # Bowel Movements 1 1 Result Diagram: 12/13/16191412/13/161914 Imaging Last Impressions Upper Extremity Ultrasound 12/07/16 0000 Signed Impressions: Service Date/Time: Wednesday, December 07, 2016 10:11 - CONCLUSION: Venous mapping as above. Enzo Isbell MD FACR Renal Biopsy CT 12/01/16 0600 Signed Impressions: Service Date/Time: November 14:17 - CONCLUSION: Uncomplicated CT guided biopsy. Alexis Adhikari MD Central Venous Line 11/29/16 0000 Signed Impressions: Service Date/Time: Tuesday, November 29, 2016 00:00 - CONCLUSION: Uncomplicated catheter removal. Solitario Diaz MD Catheter Placement X-Ray 11/29/16 0000 Signed Impressions: Service Date/Time: Tuesday, November 29, 2016 13:58 - CONCLUSION: Uncomplicated PermaCath placement as above. Solitario Diaz MD Tumor Localization 11/14/16 0000 Signed Impressions: Service Date/Time: Monday, November 14, 2016 11:38 - CONCLUSION: Negative scan Solitario Diaz MD Chest X-Ray 11/13/16 0000 Signed Impressions: Service Date/Time: Sunday, November 13, 2016 16:02 - CONCLUSION: No acute cardiopulmonary disease. Quincy Medellin MD Renal Ultrasound 11/05/16 0000 Signed Impressions: Service Date/Time: Saturday, November 05, 2016 19:17 - CONCLUSION: Diffusely echogenic kidneys indicating medical renal disease. Dorian Murry MD Abdomen/Pelvis CT 11/05/16 0000 Signed Impressions: Service Date/Time: Saturday, November 05, 2016 17:19 - CONCLUSION: 1. 4 mm calculus in the right renal pelvis/ureteropelvic junction with mild adjacent perinephric/periureteral stranding. No evidence of hydronephrosis. 2. 1 cm round hypodensity in the anterior right mid kidney statistically most likely to represent a cyst. 3. 3.7 cm hypodensity in the right lobe of the liver air the dome of the diaphragm. This finding is nonspecific on noncontrast CT. The most likely etiologies include hemangioma and cyst. It could be further evaluated with ultrasound nonemergent followup MRI of the abdomen. 4. Mild dilated proximal right common iliac artery. Dorian Murry MD Objective Remarks GENERAL: Well-developed well-nourished. In no acute distress. SKIN: Warm and dry. No lesions noted. No rash. Right vas cath noted. HEENT: Normocephalic. Pupils equal and round and reactive to light. EOMs intact. CARDIOVASCULAR: Regular rate and rhythm. No murmur appreciated. RESPIRATORY: No accessory muscle use. Clear to auscultation. Breath sounds equal bilaterally. GASTROINTESTINAL: Abdomen soft, non-tender, nondistended. Bowel sounds x4. MUSCULOSKELETAL: No obvious deformities. No clubbing or cyanosis. No edema. NEUROLOGICAL: Awake and alert. No focal neurological deficits. Moves upper and lower extremities spontaneously. Normal speech. Strength 5/5. PSYCHIATRIC: Appropriate mood and affect; insight and judgment normal. Procedures 11/14/16 hemodialysis catheter placement, right internal jugular Side: Right A/P Problem List: (1) Renal failure ICD Code: N19 - Unspecified kidney failure Status: Acute (2) Sepsis ICD Code: A41.9 - Sepsis, unspecified organism Status: Acute (3) UTI (urinary tract infection) ICD Code: N39.0 - Urinary tract infection, site not specified (4) Chronic kidney disease, stage V ICD Code: N18.5 - Chronic kidney disease, stage 5 (5) HIV (human immunodeficiency virus infection) ICD Code: B20 - Human immunodeficiency virus [HIV] disease (6) Anemia ICD Code: D64.9 - Anemia, unspecified (7) Hypertension ICD Code: I10 - Essential (primary) hypertension (8) Medical non-compliance ICD Code: Z91.19 - Patient's noncompliance with other medical treatment and regimen Assessment and Plan Severe sepsis secondary to UTI, pneumonia - Status post treatment with Zosyn. Patient is immunocompromised, noncompliant with HAART for the last 2 months. - HSV positive. 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 Blood mycobacterial culture growing acid fast organism. Afebrile. - Continue Levaquin. Continue PCP prophylaxis. Nausea, vomiting x1 time, chronic diarrhea. Antiemetics as need. Will check for C diff Fever, resolved. Will repeat blood cultures if temp increases >100.9. Will follow. Acute renal failure superimposed on chronic kidney disease stage V - Nephrology following, remains non-oliguric. - SPEP, serology negative. Creatinine improving some. - HD per nephrology. - Renal biopsy done with results showing inadequate tissue for diagnosis, will need repeat biopsy once fever is resolved. - Dr Shah spoke with patient who desires to forego AVF placement and wants PD. General sx to see patient regarding PD cath placement. HIV/AIDS - CD4 count less than 20. Patient admitted to being noncompliant with HAART meds for the last 2 months. He has been counseled. 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 ID following patient, does not believe to be Ethambutol induced. CMV Labs ordered and pending. Follow. - Cloth Mercerizer Back Tender came to see patient recommending a retina consult. Awaiting input. Nephrology following patient and monitoring medications. Oral thrush, improved: Continue Diflucan, end date 12/10/16. Anemia - Hemoglobin dropped from 8.5-->7.3-->7.2-->7.1-->6.7. Received transfusion of 2 units PRBCs on 11/16/16. S/p 2 units PRBC 12/09/16 HGB of 9 s/p transfusion. Monitior and transfuse if HGB < 7 or if symptomatic Hypertension, tachycardia: Continue metoprolol. Heart rate controlled. Buttock, perirectal wounds: HSV positive. Valtrex end date 11/22. Then chronic suppression with acyclovir. DVT prophylaxis: Heparin. Discussed with the patient, nurse Problem Qualifiers (1) Renal failure: (2) Sepsis: Zulma Shaver MD Dec 14, 2016 13:42
--- NOTE | 2016-12-14 16:36 | HHI.IDPN ---
Subjective Subjective Remarks Patient is a 50-year-old male, with known HIV, end stage AIDS, non compliant He presented with multiple complaints and was diagnosed with disseminated MAC, ARF He was started on Bix, ethambutol for MAC, BC with AFB, no ID yet Has been afebrile since EMB started Has been getting HD T-- had renal biopsy and results pending C/O blurry vision Ophtha eval showed vasculitis, possible CMV retinitis Started on IV Ganciclovir 12/04 Notes reviewed S/P PD cath placement today (+) fevers No new complaint About 2 stools today No resp complaint Feels good Vision with some improvement CMV IgG (+), repeat CMV PCR negative BC with AFB no ID yet Antibiotics Levaquin Biaxin Ethambutol fluconazole Bactrim PCP prophylaxis Ganciclovir IV Lines permacath Past Medical History HIV, for 20+years, noncompliant with medications for the past 2 months Kidney stones Allergies: Coded Allergies: No Known Allergies (Unverified , 11/05/16) Objective . Vital Signs Date Time Temp Pulse Resp B/P (MAP) Pulse Ox O2 Delivery O2 Flow Rate FiO2 12/14/16 12:00 98.1 85 18 113/71 (85) 100 12/14/16 11:00 87 16 107/66 (80) 98 Room Air 12/14/16 10:45 93 16 112/69 (83) 99 Room Air 12/14/16 10:30 88 16 116/71 (86) 98 Room Air 12/14/16 10:28 Room Air 21 12/14/16 10:15 91 16 116/69 (85) 99 Room Air 12/14/16 10:10 98.7 98 16 124/72 (89) 97 Room Air 12/14/16 08:00 101.9 102 18 122/72 (89) 100 12/14/16 04:00 100.5 106 17 132/79 (96) 96 12/14/16 03:55 Room Air 12/14/16 00:00 100.1 99 17 116/72 (87) 95 12/14/16 00:00 Room Air 12/13/16 21:56 101.0 12/13/16 20:15 104 12/13/16 20:00 101.5 104 17 120/88 (99) 95 12/13/16 20:00 Room Air 12/14/16 12/14/16 12/15/16 15:00 23:00 07:00 Intake Total 300 ml Balance 300 ml IV Total 300 ml . Laboratory Tests Test 12/13/16 19:15 White Blood Count 7.3 TH/MM3 Red Blood Count 3.35 MIL/MM3 Hemoglobin 9.8 GM/DL Hematocrit 29.0 % Mean Corpuscular Volume 86.5 FL Mean Corpuscular Hemoglobin 29.2 PG Mean Corpuscular Hemoglobin Concent 33.7 % Red Cell Distribution Width 15.1 % Platelet Count 104 TH/MM3 Mean Platelet Volume 8.0 FL CBC Comment AUTO DIFF Differential Total Cells Counted 100 Neutrophils % (Manual) 94 % Band Neutrophils % 1 % Monocytes % 2 % Basophils % 1 % Neutrophils # (Manual) 7.1 TH/MM3 Metamyelocytes 2 % Differential Comment FINAL DIFF MANUAL Laboratory Tests Test 12/13/16 19:15 Blood Urea Nitrogen 25 MG/DL Creatinine 5.43 MG/DL Random Glucose 103 MG/DL Total Protein 7.1 GM/DL Albumin 2.7 GM/DL Calcium Level 8.5 MG/DL Alkaline Phosphatase 92 U/L Aspartate Amino Transf (AST/SGOT) 21 U/L Alanine Aminotransferase (ALT/SGPT) 15 U/L Total Bilirubin 0.8 MG/DL Sodium Level 133 MEQ/L Potassium Level 3.5 MEQ/L Chloride Level 94 MEQ/L Carbon Dioxide Level 29.1 MEQ/L Anion Gap 10 MEQ/L Estimat Glomerular Filtration Rate 14 ML/MIN Imaging Last Impressions Renal Biopsy CT 12/01/16 0600 Signed Impressions: Service Date/Time: November 14:17 - CONCLUSION: Uncomplicated CT guided biopsy. Alexis Adhikari MD Central Venous Line 11/29/16 0000 Signed Impressions: Service Date/Time: Tuesday, November 29, 2016 00:00 - CONCLUSION: Uncomplicated catheter removal. Solitario Diaz MD Catheter Placement X-Ray 11/29/16 0000 Signed Impressions: Service Date/Time: Tuesday, November 29, 2016 13:58 - CONCLUSION: Uncomplicated PermaCath placement as above. Solitario Diaz MD Tumor Localization 11/14/16 0000 Signed Impressions: Service Date/Time: Monday, November 14, 2016 11:38 - CONCLUSION: Negative scan Solitario Diaz MD Chest X-Ray 11/13/16 0000 Signed Impressions: Service Date/Time: Sunday, November 13, 2016 16:02 - CONCLUSION: No acute cardiopulmonary disease. Quincy Medellin MD Renal Ultrasound 11/05/16 0000 Signed Impressions: Service Date/Time: Saturday, November 05, 2016 19:17 - CONCLUSION: Diffusely echogenic kidneys indicating medical renal disease. Dorian Murry MD Abdomen/Pelvis CT 11/05/16 0000 Signed Impressions: Service Date/Time: Saturday, November 05, 2016 17:19 - CONCLUSION: 1. 4 mm calculus in the right renal pelvis/ureteropelvic junction with mild adjacent perinephric/periureteral stranding. No evidence of hydronephrosis. 2. 1 cm round hypodensity in the anterior right mid kidney statistically most likely to represent a cyst. 3. 3.7 cm hypodensity in the right lobe of the liver air the dome of the diaphragm. This finding is nonspecific on noncontrast CT. The most likely etiologies include hemangioma and cyst. It could be further evaluated with ultrasound nonemergent followup MRI of the abdomen. 4. Mild dilated proximal right common iliac artery. Dorian Murry MD Physical Exam GENERAL: awake and alert, not in respiratory distress. SKIN: Warm and dry. HEAD: Atraumatic. Normocephalic. No temporal wasting, or tenderness. EYES: [place] conjunctiva. No petechia or hemorrhage. No scleral icterus. No injection or drainage. EARS, NOSE AND THROAT: Nose without bleeding or purulent nasal discharge. Mucous membranes pink and moist. No oral lesions noted. NECK: Trachea midline. Supple and not tender, no meningeal signs CARDIOVASCULAR: Regular rate and rhythm. No murmurs, rubs or gallops heard RESPIRATORY: Clear to auscultation. Breath sounds equal bilaterally. No rales , wheezing or rhonchi ABDOMEN: Soft, non-tender, mildly distended, dry dressing over PD cath. Bowel sounds present and normoactive. No guarding. No rebound. No organomegaly. Has oblong brown non tender nodule on R lateral groin (chronic been there for years, not getting bigger) EXTREMITIES: No clubbing, cyanosis, or edema.No joint effusion, has good ROM. No calf tenderness. Well perfused and warm. NEUROLOGICAL: Awake alert Non-focal PSYCHIATRIC: Normal affect, calm and cooperative. 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
--- NOTE | 2016-12-14 17:16 | HHI.NPPN ---
Subjective History of Present Illness 50-year-old male with past medical history of HIV disease for more than 20 years and history of renal stone who came to the hospital with complaint of back pain. The patient has back pain going on for the last 2 months off and on and he came to the emergency department yesterday with worsening pain. Additional Remarks Patient is alert, spiking fever off and on, seen after the surgery. Review of Systems General Constitutional: Fatigue Cardiovascular Cardiac: MIRZA Objective Data Data 12/14/16 12/15/16 19:00 07:00 Intake Total 300 ml Balance 300 ml IV Total 300 ml Vital Signs Date Time Temp Pulse Resp B/P (MAP) Pulse Ox O2 Delivery O2 Flow Rate FiO2 12/14/16 16:00 97.5 68 18 119/77 (91) 100 12/14/16 12:00 98.1 85 18 113/71 (85) 100 12/14/16 11:00 87 16 107/66 (80) 98 Room Air 12/14/16 10:45 93 16 112/69 (83) 99 Room Air 12/14/16 10:30 88 16 116/71 (86) 98 Room Air 12/14/16 10:28 Room Air 21 12/14/16 10:15 91 16 116/69 (85) 99 Room Air 12/14/16 10:10 98.7 98 16 124/72 (89) 97 Room Air 12/14/16 08:00 101.9 102 18 122/72 (89) 100 12/14/16 04:00 100.5 106 17 132/79 (96) 96 12/14/16 03:55 Room Air 12/14/16 00:00 100.1 99 17 116/72 (87) 95 12/14/16 00:00 Room Air 12/13/16 21:56 101.0 12/13/16 20:15 104 12/13/16 20:00 101.5 104 17 120/88 (99) 95 12/13/16 20:00 Room Air -: 12/13/16191412/13/161914 Physical Exam General Appearance: No Acute Distress, Comfortable Eyes Eye Exam: Pupils Equal Throat Throat Exam: Oral Mucosa [place]vid & Moist Pulmonary Resp Exam: Breath Sounds Equal, No Distress, Rhonchi, Decreased Bases Cardiology CV Exam: Regular, Normal Sinus Rhythm Gastrointestinal/Abdomen GI Exam: Soft, Non-Tender, Bowel Sounds Present Extremeties Extremities Exam: No Edema Neurologic Neuro Exam: Alert, Awake, Oriented Psychiatric Psych Exam: Appropriate Responses Assessment/Plan Assessment Summary: MIKE/Acute Renal Failure Problem List: (1) Renal failure ICD Codes: N19 - Unspecified kidney failure Status: Acute (2) Sepsis ICD Codes: A41.9 - Sepsis, unspecified organism Status: Acute (3) Open wound of scrotum ICD Codes: S31.30XA - Unspecified open wound of scrotum and testes, initial encounter Status: Acute Plan c/o blurry vision left eye Remain non oliguric. SPEP was negative. Complements normal, other serology also negative. BP is better, on Metoprolol to 50 mg BID. If renal function will not improve, will consider Renal Biopsy once infection is controlled. Fever pattern is better, ID is following. Now on Bactrim, Acyclovir, Clarithromycin and Ethambutol. No improvement in renal function. Possibly has End stage renal disease. Got PermCath. 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 No need to repeat the renal Biopsy as clinically he is showing no improvement, and the with advance HIV , the treatment options are limited, cannot be given immunosuppressive drugs. I discussed this in detail with patient. Now he change his mind and want to go for PD from ID stand point. He understand increase risk of infection due to advance HIV. Has PD catheter done. Continue antibiotics as per ID. Problem Qualifiers (1) Renal failure: (2) Sepsis: Kwadwo Shah MD Dec 14, 2016 17:15
[2016-12-14] MEDS: LACTOBACILLUS ACIDOPHILUS TAB PO SCH ×2 (21:00→22:08)
[2016-12-15] VITALS: BP 138/78; PULSE 74; RESP 21; TEMP 98; O2SAT 97
[2016-12-15 04:00] VITALS: BP 129/83; PULSE 105; RESP 18; TEMP 99.7; O2SAT 97
[2016-12-15 07:14] LABS: BLOOD, URINE TRACE (NEG); COMMENT (UR) CULT NOT INDICATED; CULTURE IF INDICATED CULT NOT INDICATED; GLUCOSE,URINE NEG (NEG); KETONE, URINE NEG (NEG); NITRITE,URINE NEG (NEG); PH, URINE 7.5 (5.0-8.5); URINE COLOR YELLOW (YELLW/STRAW)
[2016-12-15 08:00] VITALS: BP 132/93; PULSE 96; RESP 16; TEMP 100.4; O2SAT 100
--- NOTE | 2016-12-15 11:05 | HHI.PR ---
Subjective Remarks Seen in HD today. Feels weak. No n/v/d/c. Has intermittent chest pain. VSS Objective Vitals Vital Signs Date Time Temp Pulse Resp B/P (MAP) Pulse Ox O2 Delivery O2 Flow Rate FiO2 12/15/16 08:00 100.4 96 16 132/93 (106) 100 12/15/16 04:00 99.7 105 18 129/83 (98) 97 12/15/16 00:00 98.0 74 21 138/78 (98) 97 12/14/16 20:00 97.8 78 18 132/72 (92) 99 12/14/16 19:15 Room Air 12/14/16 19:15 97.8 78 18 132/72 (92) 99 12/14/16 19:15 74 12/14/16 16:30 97.5 68 20 119/77 (91) 100 12/14/16 16:00 97.5 68 18 119/77 (91) 100 12/14/16 12:00 98.1 85 18 113/71 (85) 100 12/14/16 11:00 87 16 107/66 (80) 98 Room Air 12/14/16 10:45 93 16 112/69 (83) 99 Room Air 12/14/16 10:30 88 16 116/71 (86) 98 Room Air 12/14/16 10:28 Room Air 21 12/14/16 10:15 91 16 116/69 (85) 99 Room Air I/O 12/14/16 12/14/16 12/14/16 12/15/16 12/15/16 12/15/16 06:59 14:59 22:59 06:59 14:59 22:59 Intake Total 0 ml 300 ml 660 ml 420 ml Output Total 800 ml 500 ml Balance -800 ml 300 ml 660 ml -80 ml Intake Oral 0 ml 660 ml 420 ml IV Total 300 ml Output Urine Total 800 ml 500 ml # Voids 3 # Bowel Movements 2 Result Diagram: 12/13/16191412/13/161914 Objective Remarks GENERAL: Well-developed well-nourished. In no acute distress. SKIN: Warm and dry. No lesions noted. No rash. Right vas cath noted. HEENT: Normocephalic. Pupils equal and round and reactive to light. EOMs intact. CARDIOVASCULAR: Regular rate and rhythm. No murmur appreciated. RESPIRATORY: No accessory muscle use. Clear to auscultation. Breath sounds equal bilaterally. GASTROINTESTINAL: Abdomen soft, non-tender, nondistended. Bowel sounds x4. MUSCULOSKELETAL: No obvious deformities. No clubbing or cyanosis. No edema. NEUROLOGICAL: Awake and alert. No focal neurological deficits. Moves upper and lower extremities spontaneously. Normal speech. Strength 5/5. PSYCHIATRIC: Appropriate mood and affect; insight and judgment normal. Procedures 11/14/16 hemodialysis catheter placement, right internal jugular Side: Right A/P Problem List: (1) Renal failure ICD Code: N19 - Unspecified kidney failure Status: Acute (2) Sepsis ICD Code: A41.9 - Sepsis, unspecified organism Status: Acute (3) UTI (urinary tract infection) ICD Code: N39.0 - Urinary tract infection, site not specified (4) Chronic kidney disease, stage V ICD Code: N18.5 - Chronic kidney disease, stage 5 (5) HIV (human immunodeficiency virus infection) ICD Code: B20 - Human immunodeficiency virus [HIV] disease (6) Anemia ICD Code: D64.9 - Anemia, unspecified (7) Hypertension ICD Code: I10 - Essential (primary) hypertension (8) Medical non-compliance ICD Code: Z91.19 - Patient's noncompliance with other medical treatment and regimen Assessment and Plan Severe sepsis secondary to UTI, pneumonia - Status post treatment with Zosyn. Patient is immunocompromised, noncompliant with HAART for the last 2 months. - HSV positive. 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 Blood mycobacterial culture growing acid fast organism. Afebrile. - Continue Levaquin. Continue PCP prophylaxis. Nausea, vomiting x1 time, chronic diarrhea. Antiemetics as need. Will check for C diff Fever, resolved. Will repeat blood cultures if temp increases >100.9. Will follow. Acute renal failure superimposed on chronic kidney disease stage V - Nephrology following, remains non-oliguric. - SPEP, serology negative. Creatinine improving some. - HD per nephrology. - Renal biopsy done with results showing inadequate tissue for diagnosis, will need repeat biopsy once fever is resolved. - Dr Shah spoke with patient who desires to forego AVF placement and wants PD. General sx to see patient regarding PD cath placement. HIV/AIDS - CD4 count less than 20. Patient admitted to being noncompliant with HAART meds for the last 2 months. He has been counseled. 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 ID following patient, does not believe to be Ethambutol induced. CMV Labs ordered and pending. Follow. - Labor Conciliator came to see patient recommending a retina consult. Awaiting input. Nephrology following patient and monitoring medications. Oral thrush, improved: Continue Diflucan, end date 12/10/16. Anemia - Hemoglobin dropped from 8.5-->7.3-->7.2-->7.1-->6.7. Received transfusion of 2 units PRBCs on 11/16/16. S/p 2 units PRBC 12/09/16 HGB of 9 s/p transfusion. Monitior and transfuse if HGB < 7 or if symptomatic Hypertension, tachycardia: Continue metoprolol. Heart rate controlled. Buttock, perirectal wounds: HSV positive. Valtrex end date 11/22. Then chronic suppression with acyclovir. DVT prophylaxis: Heparin. Discussed with the patient, nurse Problem Qualifiers (1) Renal failure: (2) Sepsis: Zulma Shaver MD Dec 15, 2016 10:13
[2016-12-15 12:00] VITALS: BP 126/80; PULSE 103; RESP 16; TEMP 98.4; O2SAT 99
[2016-12-15] MEDS: SODIUM CHLORIDE 0.9% FLUSH 10 ML FLUSH IV FLUSH SCH ×2 (13:18→20:16)
[2016-12-15] MEDS: DOCUSATE SODIUM 50 MG/SENNA 8.6 MG TAB PO SCH ×2 (13:19→20:17)
[2016-12-15] MEDS: CLARITHROMYCIN 500 MG TAB PO SCH ×2 (13:19→20:17)
[2016-12-15] MEDS: ETHAMBUTOL HCL 400 MG TAB PO SCH (13:19)
[2016-12-15] MEDS: RIFAMPIN 150 MG CAP PO SCH ×2 (13:19→20:17)
[2016-12-15] MEDS: LACTOBACILLUS ACIDOPHILUS TAB PO SCH ×2 (13:19→20:17)
--- NOTE | 2016-12-15 13:23 | HHI.IDPN ---
Subjective Subjective Remarks Patient is a 50-year-old male, with known HIV, end stage AIDS, non compliant He presented with multiple complaints and was diagnosed with disseminated MAC, ARF He was started on Bix, ethambutol for MAC, BC with AFB, no ID yet Has been afebrile since EMB started Has been getting HD T- had renal biopsy and results pending C/O blurry vision Ophtha eval showed vasculitis, possible CMV retinitis Started on IV Ganciclovir 12/04 Notes reviewed Temps better No new complaints Had HD today S/P PD cath placement 12/14 Antibiotics Rifampin Biaxin Ethambutol fluconazole Bactrim PCP prophylaxis Ganciclovir IV Lines permacath Past Medical History HIV, for 20+years, noncompliant with medications for the past 2 months Kidney stones Allergies: Coded Allergies: No Known Allergies (Unverified , 11/05/16) Objective . Vital Signs Date Time Temp Pulse Resp B/P (MAP) Pulse Ox O2 Delivery O2 Flow Rate FiO2 12/15/16 12:00 98.4 103 16 126/80 (95) 99 12/15/16 08:00 100.4 96 16 132/93 (106) 100 12/15/16 04:00 99.7 105 18 129/83 (98) 97 12/15/16 00:00 98.0 74 21 138/78 (98) 97 12/14/16 20:00 97.8 78 18 132/72 (92) 99 12/14/16 19:15 Room Air 12/14/16 19:15 97.8 78 18 132/72 (92) 99 12/14/16 19:15 74 12/14/16 16:30 97.5 68 20 119/77 (91) 100 12/14/16 16:00 97.5 68 18 119/77 (91) 100 12/15/16 12/15/16 12/16/16 15:00 23:00 07:00 Output Total 2000 ml Balance -2000 ml Hemodialysis 2000 ml . Laboratory Tests Test 12/13/16 19:15 White Blood Count 7.3 TH/MM3 Red Blood Count 3.35 MIL/MM3 Hemoglobin 9.8 GM/DL Hematocrit 29.0 % Mean Corpuscular Volume 86.5 FL Mean Corpuscular Hemoglobin 29.2 PG Mean Corpuscular Hemoglobin Concent 33.7 % Red Cell Distribution Width 15.1 % Platelet Count 104 TH/MM3 Mean Platelet Volume 8.0 FL CBC Comment AUTO DIFF Differential Total Cells Counted 100 Neutrophils % (Manual) 94 % Band Neutrophils % 1 % Monocytes % 2 % Basophils % 1 % Neutrophils # (Manual) 7.1 TH/MM3 Metamyelocytes 2 % Differential Comment FINAL DIFF MANUAL Laboratory Tests Test 12/13/16 19:15 Blood Urea Nitrogen 25 MG/DL Creatinine 5.43 MG/DL Random Glucose 103 MG/DL Total Protein 7.1 GM/DL Albumin 2.7 GM/DL Calcium Level 8.5 MG/DL Alkaline Phosphatase 92 U/L Aspartate Amino Transf (AST/SGOT) 21 U/L Alanine Aminotransferase (ALT/SGPT) 15 U/L Total Bilirubin 0.8 MG/DL Sodium Level 133 MEQ/L Potassium Level 3.5 MEQ/L Chloride Level 94 MEQ/L Carbon Dioxide Level 29.1 MEQ/L Anion Gap 10 MEQ/L Estimat Glomerular Filtration Rate 14 ML/MIN Imaging Last Impressions Renal Biopsy CT 12/01/16 0600 Signed Impressions: Service Date/Time: November 14:17 - CONCLUSION: Uncomplicated CT guided biopsy. Alexis Adhikari MD Central Venous Line 11/29/16 0000 Signed Impressions: Service Date/Time: Tuesday, November 29, 2016 00:00 - CONCLUSION: Uncomplicated catheter removal. Solitario Diaz MD Catheter Placement X-Ray 11/29/16 0000 Signed Impressions: Service Date/Time: Tuesday, November 29, 2016 13:58 - CONCLUSION: Uncomplicated PermaCath placement as above. Solitario Diaz MD Tumor Localization 11/14/16 0000 Signed Impressions: Service Date/Time: Monday, November 14, 2016 11:38 - CONCLUSION: Negative scan Solitario Diaz MD Chest X-Ray 11/13/16 0000 Signed Impressions: Service Date/Time: Sunday, November 13, 2016 16:02 - CONCLUSION: No acute cardiopulmonary disease. Quincy Medellin MD Renal Ultrasound 11/05/16 0000 Signed Impressions: Service Date/Time: Saturday, November 05, 2016 19:17 - CONCLUSION: Diffusely echogenic kidneys indicating medical renal disease. Dorian Murry MD Abdomen/Pelvis CT 11/05/16 0000 Signed Impressions: Service Date/Time: Saturday, November 05, 2016 17:19 - CONCLUSION: 1. 4 mm calculus in the right renal pelvis/ureteropelvic junction with mild adjacent perinephric/periureteral stranding. No evidence of hydronephrosis. 2. 1 cm round hypodensity in the anterior right mid kidney statistically most likely to represent a cyst. 3. 3.7 cm hypodensity in the right lobe of the liver air the dome of the diaphragm. This finding is nonspecific on noncontrast CT. The most likely etiologies include hemangioma and cyst. It could be further evaluated with ultrasound nonemergent followup MRI of the abdomen. 4. Mild dilated proximal right common iliac artery. Dorian Murry MD Physical Exam GENERAL: awake and alert, not in respiratory distress. SKIN: Warm and dry. HEAD: Atraumatic. Normocephalic. No temporal wasting, or tenderness. EYES: [place] conjunctiva. No petechia or hemorrhage. No scleral icterus. No injection or drainage. EARS, NOSE AND THROAT: Nose without bleeding or purulent nasal discharge. Mucous membranes pink and moist. No oral lesions noted. NECK: Trachea midline. Supple and not tender, no meningeal signs CARDIOVASCULAR: Regular rate and rhythm. No murmurs, rubs or gallops heard RESPIRATORY: Clear to auscultation. Breath sounds equal bilaterally. No rales , wheezing or rhonchi ABDOMEN: Soft, non-tender, mildly distended, dry dressing over PD cath. Bowel sounds present and normoactive. No guarding. No rebound. No organomegaly. Has oblong brown non tender nodule on R lateral groin (chronic been there for years, not getting bigger) EXTREMITIES: No clubbing, cyanosis, or edema.No joint effusion, has good ROM. No calf tenderness. Well perfused and warm. NEUROLOGICAL: Awake alert Non-focal PSYCHIATRIC: Normal affect, calm and cooperative. 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
[2016-12-15 16:00] VITALS: BP 130/87; PULSE 94; RESP 16; TEMP 100.2; O2SAT 100
[2016-12-15] MEDS: GANCICLOVIR IV SCH (17:00)
[2016-12-15] MEDS: SODIUM CHLORIDE 0.9% IV SCH (17:00)
[2016-12-15 20:00] VITALS: BP 133/89; PULSE 106; PULSE 98; RESP 20; TEMP 102.9; O2SAT 97
--- NOTE | 2016-12-15 21:42 | HHI.NPPN ---
Subjective History of Present Illness 50-year-old male with past medical history of HIV disease for more than 20 years and history of renal stone who came to the hospital with complaint of back pain. The patient has back pain going on for the last 2 months off and on and he came to the emergency department yesterday with worsening pain. Additional Remarks Patient is alert, spiking low grade fever off and on, not in distress. Review of Systems General Constitutional: Fatigue Cardiovascular Cardiac: MIRZA Objective Data Data 12/15/16 12/16/16 18:59 06:59 Intake Total 360 ml Output Total 2425 ml Balance -2065 ml Intake Oral 360 ml Output Urine Total 425 ml Hemodialysis 2000 ml # Bowel Movements 0 Vital Signs Date Time Temp Pulse Resp B/P (MAP) Pulse Ox O2 Delivery O2 Flow Rate FiO2 12/15/16 16:00 100.2 94 16 130/87 (101) 100 12/15/16 15:30 99 Room Air 12/15/16 12:00 98.4 103 16 126/80 (95) 99 12/15/16 08:00 100.4 96 16 132/93 (106) 100 12/15/16 04:00 99.7 105 18 129/83 (98) 97 12/15/16 00:00 98.0 74 21 138/78 (98) 97 -: 12/13/16191412/13/161914 Microbiology 12/15/16 Aerobic Blood Culture, Received Pending 12/15/16 Anaerobic Blood Culture, Received Pending 12/15/16 Aerobic Blood Culture, Received Pending 12/15/16 Anaerobic Blood Culture, Received Pending Physical Exam General Appearance: No Acute Distress, Comfortable Eyes Eye Exam: Pupils Equal Throat Throat Exam: Oral Mucosa [place] & Moist Pulmonary Resp Exam: Breath Sounds Equal, No Distress, Rhonchi, Decreased Bases Cardiology CV Exam: Regular, Normal Sinus Rhythm Gastrointestinal/Abdomen GI Exam: Soft, Non-Tender, Bowel Sounds Present Extremeties Extremities Exam: No Edema Neurologic Neuro Exam: Alert, Awake, Oriented Psychiatric Psych Exam: Appropriate Responses Assessment/Plan Assessment Summary: MIKE/Acute Renal Failure Problem List: (1) Renal failure ICD Codes: N19 - Unspecified kidney failure Status: Acute (2) Sepsis ICD Codes: A41.9 - Sepsis, unspecified organism Status: Acute (3) Open wound of scrotum ICD Codes: S31.30XA - Unspecified open wound of scrotum and testes, initial encounter Status: Acute Plan c/o blurry vision left eye Remain non oliguric. SPEP was negative. Complements normal, other serology also negative. BP is better, on Metoprolol to 50 mg BID. If renal function will not improve, will consider Renal Biopsy once infection is controlled. Fever pattern is better, ID is following. Now on Bactrim, Acyclovir, Clarithromycin and Ethambutol. No improvement in renal function. Possibly has End stage renal disease. Got PermCath. 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 No need to repeat the renal Biopsy as clinically he is showing no improvement, and the with advance HIV , the treatment options are limited, cannot be given immunosuppressive drugs. I discussed this in detail with patient. Now he change his mind and want to go for PD from ID stand point. He understand increase risk of infection due to advance HIV. Has PD catheter done. Continue HD for now. Problem Qualifiers (1) Renal failure: (2) Sepsis: Kwadwo Shah MD Dec 15, 2016 21:42
[2016-12-16] VITALS (8 sets, daily range): BP systolic 118–146; BP diastolic 81–94; PULSE 70–109; RESP 18–20; TEMP 98–100.9; O2SAT 99–100
[2016-12-16] MEDS: LACTOBACILLUS ACIDOPHILUS TAB PO SCH ×2 (10:10→20:32)
[2016-12-16] MEDS: SODIUM CHLORIDE 0.9% FLUSH 10 ML FLUSH IV FLUSH SCH ×2 (10:10→20:33)
[2016-12-16] MEDS: CLARITHROMYCIN 500 MG TAB PO SCH ×2 (10:10→20:32)
[2016-12-16] MEDS: SULFAMETHOXAZOLE-TRIMETHOPRIM DS 800-160 MG TAB PO SCH (10:10)
[2016-12-16] MEDS: RIFAMPIN 150 MG CAP PO SCH ×2 (10:13→20:32)
[2016-12-16] MEDS: ETHAMBUTOL HCL 400 MG TAB PO SCH (10:13)
[2016-12-16] MEDS: DOCUSATE SODIUM 50 MG/SENNA 8.6 MG TAB PO SCH ×2 (10:13→20:32)
--- NOTE | 2016-12-16 11:04 | HHI.PR ---
Subjective Remarks In bed, says he has some abdominal pain at the surgical site, dressing c/d/di. Has almost daily diarrhea. Eating fairly well. No more nausea , no vomiting. No fever ro chills. Objective Vitals Vital Signs Date Time Temp Pulse Resp B/P (MAP) Pulse Ox O2 Delivery O2 Flow Rate FiO2 12/16/16 08:00 100.2 101 18 143/90 (107) 99 12/16/16 04:00 98.2 80 20 146/94 (111) 99 12/16/16 00:00 98.0 70 20 118/83 (95) 100 12/15/16 20:00 98 12/15/16 20:00 102.9 106 20 133/89 (104) 97 12/15/16 19:15 Room Air 12/15/16 16:00 100.2 94 16 130/87 (101) 100 12/15/16 15:30 99 Room Air 12/15/16 12:00 98.4 103 16 126/80 (95) 99 I/O 12/15/16 12/15/16 12/15/16 12/16/16 12/16/16 12/16/16 07:00 15:00 23:00 07:00 15:00 23:00 Intake Total 420 ml 360 ml 120 ml Output Total 500 ml 2000 ml 425 ml Balance -80 ml -2000 ml -65 ml 120 ml Intake Oral 420 ml 360 ml 120 ml IV Total 0 ml Output Urine Total 500 ml 425 ml Hemodialysis 2000 ml # Voids 0 # Bowel Movements 2 0 Result Diagram: 12/13/16191412/13/161914 Imaging Last Impressions Upper Extremity Ultrasound 12/07/16 0000 Signed Impressions: Service Date/Time: Wednesday, December 07, 2016 10:11 - CONCLUSION: Venous mapping as above. Enzo Isbell MD FACR Renal Biopsy CT 12/01/16 0600 Signed Impressions: Service Date/Time: November 14:17 - CONCLUSION: Uncomplicated CT guided biopsy. Alexis Adhikari MD Central Venous Line 11/29/16 0000 Signed Impressions: Service Date/Time: Tuesday, November 29, 2016 00:00 - CONCLUSION: Uncomplicated catheter removal. Solitario Diaz MD Catheter Placement X-Ray 11/29/16 0000 Signed Impressions: Service Date/Time: Tuesday, November 29, 2016 13:58 - CONCLUSION: Uncomplicated PermaCath placement as above. Solitario Diaz MD Tumor Localization 11/14/16 0000 Signed Impressions: Service Date/Time: Monday, November 14, 2016 11:38 - CONCLUSION: Negative scan Solitario Diaz MD Chest X-Ray 11/13/16 0000 Signed Impressions: Service Date/Time: Sunday, November 13, 2016 16:02 - CONCLUSION: No acute cardiopulmonary disease. Quincy Medellin MD Renal Ultrasound 11/05/16 0000 Signed Impressions: Service Date/Time: Saturday, November 05, 2016 19:17 - CONCLUSION: Diffusely echogenic kidneys indicating medical renal disease. Dorian Murry MD Abdomen/Pelvis CT 11/05/16 0000 Signed Impressions: Service Date/Time: Saturday, November 05, 2016 17:19 - CONCLUSION: 1. 4 mm calculus in the right renal pelvis/ureteropelvic junction with mild adjacent perinephric/periureteral stranding. No evidence of hydronephrosis. 2. 1 cm round hypodensity in the anterior right mid kidney statistically most likely to represent a cyst. 3. 3.7 cm hypodensity in the right lobe of the liver air the dome of the diaphragm. This finding is nonspecific on noncontrast CT. The most likely etiologies include hemangioma and cyst. It could be further evaluated with ultrasound nonemergent followup MRI of the abdomen. 4. Mild dilated proximal right common iliac artery. Dorian Murry MD Objective Remarks GENERAL: Well-developed well-nourished. In no acute distress. SKIN: Warm and dry. No lesions noted. HEENT: Normocephalic. Pupils equal and round and reactive to light. EOMs intact. CARDIOVASCULAR: Regular rate and rhythm. No murmur appreciated. RESPIRATORY: No accessory muscle use. Clear to auscultation. Breath sounds equal bilaterally. GASTROINTESTINAL: S/P PD cath, dressing c/d/i, some tenderness at the PD site. Abdomen soft, nondistended. Bowel sounds x4. MUSCULOSKELETAL: No obvious deformities. No clubbing or cyanosis. No edema. NEUROLOGICAL: Awake and alert. No focal neurological deficits. Moves upper and lower extremities spontaneously. Normal speech. Strength 5/5. PSYCHIATRIC: Appropriate mood and affect; insight and judgment normal. Procedures 11/14/16 hemodialysis catheter placement, right internal jugular 12/14 PD cath placement Side: Right A/P Problem List: (1) Renal failure ICD Code: N19 - Unspecified kidney failure Status: Acute (2) Sepsis ICD Code: A41.9 - Sepsis, unspecified organism Status: Acute (3) UTI (urinary tract infection) ICD Code: N39.0 - Urinary tract infection, site not specified (4) Chronic kidney disease, stage V ICD Code: N18.5 - Chronic kidney disease, stage 5 (5) HIV (human immunodeficiency virus infection) ICD Code: B20 - Human immunodeficiency virus [HIV] disease (6) Anemia ICD Code: D64.9 - Anemia, unspecified (7) Hypertension ICD Code: I10 - Essential (primary) hypertension (8) Medical non-compliance ICD Code: Z91.19 - Patient's noncompliance with other medical treatment and regimen Assessment and Plan Severe sepsis secondary to UTI, pneumonia - Status post treatment with Zosyn. Patient is immunocompromised, noncompliant with HAART for the last 2 months. - HSV positive. 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 Blood mycobacterial culture growing acid fast organism. Afebrile. - Continue Levaquin. Continue PCP prophylaxis. Nausea, vomiting x1 time, chronic diarrhea. Antiemetics as need. Will check for C diff Fever, intermittent. Will repeat blood cultures if temp increases >100.9. Will follow. Plan for repeat 2 BC from [facility] when he goes for next HD per ID Acute renal failure superimposed on chronic kidney disease stage V - Nephrology following, remains non-oliguric. - SPEP, serology negative. Creatinine improving some. - HD per nephrology. - Renal biopsy done with results showing inadequate tissue for diagnosis, will need repeat biopsy once fever is resolved. - Dr Shah spoke with patient who desires to forego AVF placement and wants PD. General sx to see patient regarding PD cath placementS/P [facility] HIV/AIDS - CD4 count less than 20. Patient admitted to being noncompliant with HAART meds for the last 2 months. He has been counseled. 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 ID following patient, does not believe to be Ethambutol induced. CMV Labs ordered and pending. Follow. - Unit Support Representative came to see patient recommending a retina consult. Awaiting input. Nephrology following patient and monitoring medications. Oral thrush, improved: Continue Diflucan, end date 12/10/16. Anemia - Hemoglobin dropped from 8.5-->7.3-->7.2-->7.1-->6.7. Received transfusion of 2 units PRBCs on 11/16/16. S/p 2 units PRBC 12/09/16 HGB of 9 s/p transfusion. Monitior and transfuse if HGB < 7 or if symptomatic Hypertension, tachycardia: Continue metoprolol. Heart rate controlled. Buttock, perirectal wounds: HSV positive. Valtrex end date 11/22. Then chronic suppression with acyclovir. DVT prophylaxis: Heparin. Discussed with the patient, nurse Repeat BC from [facility] when he goes for next HD per ID recommendations and ff Problem Qualifiers (1) Renal failure: (2) Sepsis: Zulma Shaver MD Dec 16, 2016 11:04
--- NOTE | 2016-12-16 14:25 | HHI.IDPN ---
Subjective Subjective Remarks Patient is a 50-year-old male, with known HIV, end stage AIDS, non compliant He presented with multiple complaints and was diagnosed with disseminated MAC, ARF He was started on Bix, ethambutol for MAC, BC with AFB, no ID yet Has been afebrile since EMB started Has been getting HD T--Sa had renal biopsy and results pending C/O blurry vision Ophtha eval showed vasculitis, possible CMV retinitis Started on IV Ganciclovir 12/04 Notes reviewed Having intermittent fevers Some mild abdominal pain No BM today, (+) flatus No N/V Visual symptoms better No respiratory complaint Voiding ok, UA ok Had HD yesterday S/P PD cath placement 12/14 Antibiotics Rifampin Biaxin Ethambutol fluconazole Bactrim PCP prophylaxis Ganciclovir IV Lines permacath Past Medical History HIV, for 20+years, noncompliant with medications for the past 2 months Kidney stones Allergies: Coded Allergies: No Known Allergies (Unverified , 11/05/16) Objective . Vital Signs Date Time Temp Pulse Resp B/P (MAP) Pulse Ox O2 Delivery O2 Flow Rate FiO2 12/16/16 12:00 100.0 98 18 134/85 (101) 99 12/16/16 08:00 100.2 101 18 143/90 (107) 99 12/16/16 04:00 98.2 80 20 146/94 (111) 99 12/16/16 00:00 98.0 70 20 118/83 (95) 100 12/15/16 20:00 98 12/15/16 20:00 102.9 106 20 133/89 (104) 97 12/15/16 19:15 Room Air 12/15/16 16:00 100.2 94 16 130/87 (101) 100 12/15/16 15:30 99 Room Air . Microbiology Date/Time Source Procedure Growth Status 12/15/16 19:25 Blood Other Aerobic Blood Culture - Preliminary NO GROWTH IN 1 DAY Resulted 12/15/16 19:25 Blood Other Anaerobic Blood Culture - Final QNS - SEE AEROBE REPORT Resulted 12/15/16 19:20 Blood Other Aerobic Blood Culture - Preliminary NO GROWTH IN 1 DAY Resulted 12/15/16 19:20 Blood Other Anaerobic Blood Culture - Final QNS - SEE AEROBE REPORT Resulted Imaging Last Impressions Renal Biopsy CT 12/01/16 0600 Signed Impressions: Service Date/Time: November 14:17 - CONCLUSION: Uncomplicated CT guided biopsy. Alexis Adhikari MD Central Venous Line 11/29/16 0000 Signed Impressions: Service Date/Time: Tuesday, November 29, 2016 00:00 - CONCLUSION: Uncomplicated catheter removal. Solitario Diaz MD Catheter Placement X-Ray 11/29/16 0000 Signed Impressions: Service Date/Time: Tuesday, November 29, 2016 13:58 - CONCLUSION: Uncomplicated PermaCath placement as above. Solitario Diaz MD Tumor Localization 11/14/16 0000 Signed Impressions: Service Date/Time: Monday, November 14, 2016 11:38 - CONCLUSION: Negative scan Solitario Diaz MD Chest X-Ray 11/13/16 0000 Signed Impressions: Service Date/Time: Sunday, November 13, 2016 16:02 - CONCLUSION: No acute cardiopulmonary disease. Quincy Medellin MD Renal Ultrasound 11/05/16 0000 Signed Impressions: Service Date/Time: Saturday, November 05, 2016 19:17 - CONCLUSION: Diffusely echogenic kidneys indicating medical renal disease. Dorian Murry MD Abdomen/Pelvis CT 11/05/16 0000 Signed Impressions: Service Date/Time: Saturday, November 05, 2016 17:19 - CONCLUSION: 1. 4 mm calculus in the right renal pelvis/ureteropelvic junction with mild adjacent perinephric/periureteral stranding. No evidence of hydronephrosis. 2. 1 cm round hypodensity in the anterior right mid kidney statistically most likely to represent a cyst. 3. 3.7 cm hypodensity in the right lobe of the liver air the dome of the diaphragm. This finding is nonspecific on noncontrast CT. The most likely etiologies include hemangioma and cyst. It could be further evaluated with ultrasound nonemergent followup MRI of the abdomen. 4. Mild dilated proximal right common iliac artery. Dorian Murry MD Physical Exam GENERAL: awake and alert, not in respiratory distress. SKIN: Warm and dry. HEAD: Atraumatic. Normocephalic. No temporal wasting, or tenderness. EYES: [place] conjunctiva. No petechia or hemorrhage. No scleral icterus. No injection or drainage. EARS, NOSE AND THROAT: Nose without bleeding or purulent nasal discharge. Mucous membranes pink and moist. White coating on tongue NECK: Trachea midline. Supple and not tender, no meningeal signs CARDIOVASCULAR: Regular rate and rhythm. No murmurs, rubs or gallops heard RESPIRATORY: Clear to auscultation. Breath sounds equal bilaterally. No rales , wheezing or rhonchi ABDOMEN: Soft, mild tenderness, not distended, dry dressing over cath. Bowel sounds present and normoactive. No guarding. No rebound. No organomegaly. Has oblong brown non tender nodule on R lateral groin (chronic been there for years, not getting bigger) EXTREMITIES: No clubbing, cyanosis, or edema.No joint effusion, has good ROM. No calf tenderness. Well perfused and warm. NEUROLOGICAL: Awake alert Non-focal PSYCHIATRIC: Normal affect, calm and cooperative. 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
--- NOTE | 2016-12-16 16:15 | HHI.NPPN ---
Subjective History of Present Illness 50-year-old male with past medical history of HIV disease for more than 20 years and history of renal stone who came to the hospital with complaint of back pain. The patient has back pain going on for the last 2 months off and on and he came to the emergency department yesterday with worsening pain. Additional Remarks Patient is alert, spiking low grade fever off and on, not in distress, clinically same. Review of Systems General Constitutional: Fatigue Cardiovascular Cardiac: MIRZA Objective Data Data Vital Signs Date Time Temp Pulse Resp B/P (MAP) Pulse Ox O2 Delivery O2 Flow Rate FiO2 12/16/16 14:35 99 Room Air 12/16/16 12:00 100.0 98 18 134/85 (101) 99 12/16/16 08:00 100.2 101 18 143/90 (107) 99 12/16/16 04:00 98.2 80 20 146/94 (111) 99 12/16/16 00:00 98.0 70 20 118/83 (95) 100 12/15/16 20:00 98 12/15/16 20:00 102.9 106 20 133/89 (104) 97 12/15/16 19:15 Room Air -: 12/13/16 1915 12/13/16 191 Microbiology 12/15/16 Aerobic Blood Culture - Preliminary, Resulted NO GROWTH IN 1 DAY 12/15/16 Anaerobic Blood Culture - Final, Resulted QNS - SEE AEROBE REPORT 12/15/16 Aerobic Blood Culture - Preliminary, Resulted NO GROWTH IN 1 DAY 12/15/16 Anaerobic Blood Culture - Final, Resulted QNS - SEE AEROBE REPORT Physical Exam General Appearance: No Acute Distress, Comfortable Eyes Eye Exam: Pupils Equal Throat Throat Exam: Oral Mucosa [place] & Moist Pulmonary Resp Exam: Breath Sounds Equal, No Distress, Rhonchi, Decreased Bases Cardiology CV Exam: Regular, Normal Sinus Rhythm Gastrointestinal/Abdomen GI Exam: Soft, Non-Tender, Bowel Sounds Present Extremeties Extremities Exam: No Edema Neurologic Neuro Exam: Alert, Awake, Oriented Psychiatric Psych Exam: Appropriate Responses Assessment/Plan Assessment Summary: MIKE/Acute Renal Failure Problem List: (1) Renal failure ICD Codes: N19 - Unspecified kidney failure Status: Acute (2) Sepsis ICD Codes: A41.9 - Sepsis, unspecified organism Status: Acute (3) Open wound of scrotum ICD Codes: S31.30XA - Unspecified open wound of scrotum and testes, initial encounter Status: Acute Plan c/o blurry vision left eye Remain non oliguric. SPEP was negative. Complements normal, other serology also negative. BP is better, on Metoprolol to 50 mg BID. If renal function will not improve, will consider Renal Biopsy once infection is controlled. Fever pattern is better, ID is following. Now on Bactrim, Acyclovir, Clarithromycin and Ethambutol. No improvement in renal function. Possibly has End stage renal disease. Got PermCath. 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 No need to repeat the renal Biopsy as clinically he is showing no improvement, and the with advance HIV , the treatment options are limited, cannot be given immunosuppressive drugs. I discussed this in detail with patient. Now he change his mind and want to go for PD from ID stand point. He understand increase risk of infection due to advance HIV. Has PD catheter done. Also now on Gancyclovir, ID following. HD will be in AM. Problem Qualifiers (1) Renal failure: (2) Sepsis: Kwadwo Shah MD Dec 16, 2016 16:15
[2016-12-16] MEDS: ACETAMINOPHEN 325 MG TAB PO PRN (20:32)
[2016-12-17] VITALS (7 sets, daily range): BP systolic 109–140; BP diastolic 68–88; PULSE 77–109; RESP 18–20; TEMP 97.9–102; O2SAT 97–100
[2016-12-17] MEDS: SODIUM CHLORIDE 0.9% FLUSH 10 ML FLUSH IV FLUSH SCH ×2 (09:00→20:36)
--- NOTE | 2016-12-17 10:21 | HHI.NPPN ---
Subjective History of Present Illness 50-year-old male with past medical history of HIV disease for more than 20 years and history of renal stone who came to the hospital with complaint of back pain. The patient has back pain going on for the last 2 months off and on and he came to the emergency department yesterday with worsening pain. Additional Remarks Patient is alert, now on HD, still has fever off and on, no SOB, no abd. pain. Review of Systems General Constitutional: Fatigue Cardiovascular Cardiac: MIRZA Objective Data Data Vital Signs Date Time Temp Pulse Resp B/P (MAP) Pulse Ox O2 Delivery O2 Flow Rate FiO2 12/17/16 08:00 99.1 98 20 134/88 (103) 99 12/17/16 04:00 97.9 77 18 140/70 (93) 100 12/17/16 00:00 99.0 83 20 112/76 (88) 99 12/16/16 20:00 100.9 98 20 127/81 (96) 99 12/16/16 19:15 Room Air 12/16/16 19:15 105 12/16/16 16:52 109 12/16/16 16:00 100.5 92 18 141/88 (105) 100 12/16/16 14:35 99 Room Air 12/16/16 12:00 100.0 98 18 134/85 (101) 99 -: 12/13/16191412/13/161914 Physical Exam General Appearance: No Acute Distress, Comfortable Eyes Eye Exam: Pupils Equal Throat Throat Exam: Oral Mucosa [place] & Moist Pulmonary Resp Exam: Breath Sounds Equal, No Distress, Rhonchi, Decreased Bases Cardiology CV Exam: Regular, Normal Sinus Rhythm Gastrointestinal/Abdomen GI Exam: Soft, Non-Tender, Bowel Sounds Present Extremeties Extremities Exam: No Edema Neurologic Neuro Exam: Alert, Awake, Oriented Psychiatric Psych Exam: Appropriate Responses Assessment/Plan Assessment Summary: MIKE/Acute Renal Failure Problem List: (1) Renal failure ICD Codes: N19 - Unspecified kidney failure Status: Acute (2) Sepsis ICD Codes: A41.9 - Sepsis, unspecified organism Status: Acute (3) Open wound of scrotum ICD Codes: S31.30XA - Unspecified open wound of scrotum and testes, initial encounter Status: Acute Plan c/o blurry vision left eye Remain non oliguric. SPEP was negative. Complements normal, other serology also negative. BP is better, on Metoprolol to 50 mg BID. If renal function will not improve, will consider Renal Biopsy once infection is controlled. Fever pattern is better, ID is following. Now on Bactrim, Acyclovir, Clarithromycin and Ethambutol. No improvement in renal function. Possibly has End stage renal disease. Got PermCath. 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 No need to repeat the renal Biopsy as clinically he is showing no improvement, and the with advance HIV , the treatment options are limited, cannot be given immunosuppressive drugs. I discussed this in detail with patient. Now he change his mind and want to go for PD from ID stand point. He understand increase risk of infection due to advance HIV. Has PD catheter done. Also now on Gancyclovir, ID following. HD now, remove fluid as tolerated. Problem Qualifiers (1) Renal failure: (2) Sepsis: Kwadwo Shah MD Dec 17, 2016 10:21
[2016-12-17] MEDS: SODIUM CHLORIDE 0.9% FLUSH 10 ML FLUSH IV FLUSH PRN (10:57)
[2016-12-17] MEDS: SODIUM CHLOR 0.9% 1000 ML INJ 1,000 ML IV PRN (10:57)
[2016-12-17] MEDS: EPOETIN ALFA 10,000 UNITS/ML VIAL IV PRN (10:59)
[2016-12-17] MEDS: HEPARIN SODIUM - IV 10,000 UNITS/10 ML VIAL PRN (10:59)
[2016-12-17] MEDS: GENTAMICIN SULFATE (DIALYSIS USE ONLY) 20 MG/2 ML VIAL IV PRN (10:59)
[2016-12-17] MEDS: SODIUM CHLORIDE 0.9% IV SCH (12:45)
[2016-12-17] MEDS: GANCICLOVIR IV SCH (12:45)
--- NOTE | 2016-12-17 14:29 | HHI.PR ---
Subjective Remarks Follow-up sepsis/recurrent fevers/noncompliance HIV/end-stage renal disease 12/17/16-patient seen and examined, continued to spike fevers and had HD today Objective Vitals Vital Signs Date Time Temp Pulse Resp B/P (MAP) Pulse Ox O2 Delivery O2 Flow Rate FiO2 12/17/16 12:00 99.8 105 20 124/85 (98) 97 12/17/16 11:20 Room Air 21 12/17/16 08:00 99.1 98 20 134/88 (103) 99 12/17/16 04:00 97.9 77 18 140/70 (93) 100 12/17/16 00:00 99.0 83 20 112/76 (88) 99 12/16/16 20:00 100.9 98 20 127/81 (96) 99 12/16/16 19:15 Room Air 12/16/16 19:15 105 12/16/16 16:52 109 12/16/16 16:00 100.5 92 18 141/88 (105) 100 12/16/16 14:35 99 Room Air I/O 12/16/16 12/16/16 12/16/16 12/17/16 12/17/16 12/17/16 07:00 15:00 23:00 07:00 15:00 23:00 Intake Total 120 ml 600 ml 480 ml Output Total 450 ml 100 ml 2500 ml Balance 120 ml 150 ml 380 ml -2500 ml Intake Oral 120 ml 600 ml 480 ml IV Total 0 ml Output Urine Total 450 ml 100 ml Hemodialysis 2500 ml # Voids 0 # Bowel Movements 0 0 Result Diagram: 12/13/16191412/13/161914 Imaging Last Impressions Upper Extremity Ultrasound 12/07/16 0000 Signed Impressions: Service Date/Time: Wednesday, December 07, 2016 10:11 - CONCLUSION: Venous mapping as above. Enzo Isbell MD FACR Renal Biopsy CT 12/01/16 0600 Signed Impressions: Service Date/Time: November 14:17 - CONCLUSION: Uncomplicated CT guided biopsy. Alexis Adhikari MD Central Venous Line 11/29/16 0000 Signed Impressions: Service Date/Time: Tuesday, November 29, 2016 00:00 - CONCLUSION: Uncomplicated catheter removal. Solitario Diaz MD Catheter Placement X-Ray 11/29/16 0000 Signed Impressions: Service Date/Time: Tuesday, November 29, 2016 13:58 - CONCLUSION: Uncomplicated PermaCath placement as above. Solitario Diaz MD Tumor Localization 11/14/16 0000 Signed Impressions: Service Date/Time: Monday, November 14, 2016 11:38 - CONCLUSION: Negative scan Solitario Diaz MD Chest X-Ray 11/13/16 0000 Signed Impressions: Service Date/Time: Sunday, November 13, 2016 16:02 - CONCLUSION: No acute cardiopulmonary disease. Quincy Medellin MD Renal Ultrasound 11/05/16 0000 Signed Impressions: Service Date/Time: Saturday, November 05, 2016 19:17 - CONCLUSION: Diffusely echogenic kidneys indicating medical renal disease. Dorian Murry MD Abdomen/Pelvis CT 11/05/16 0000 Signed Impressions: Service Date/Time: Saturday, November 05, 2016 17:19 - CONCLUSION: 1. 4 mm calculus in the right renal pelvis/ureteropelvic junction with mild adjacent perinephric/periureteral stranding. No evidence of hydronephrosis. 2. 1 cm round hypodensity in the anterior right mid kidney statistically most likely to represent a cyst. 3. 3.7 cm hypodensity in the right lobe of the liver air the dome of the diaphragm. This finding is nonspecific on noncontrast CT. The most likely etiologies include hemangioma and cyst. It could be further evaluated with ultrasound nonemergent followup MRI of the abdomen. 4. Mild dilated proximal right common iliac artery. Dorian Murry MD Objective Remarks GENERAL: NAD SKIN: Warm and dry. HEAD: Normocephalic. EYES: No scleral icterus. No injection or drainage. NECK: Supple, trachea midline. No JVD or lymphadenopathy. CARDIOVASCULAR: Regular rate and rhythm without murmurs, gallops, or rubs. RESPIRATORY: Breath sounds equal bilaterally. No accessory muscle use. GASTROINTESTINAL: Abdomen soft, non-tender, nondistended. MUSCULOSKELETAL: No cyanosis, or edema. BACK: Nontender without obvious deformity. No CVA tenderness. Procedures 11/14/16 hemodialysis catheter placement, right internal jugular 12/14 PD cath placement Side: Right A/P Problem List: (1) Renal failure ICD Code: N19 - Unspecified kidney failure Status: Acute (2) Sepsis ICD Code: A41.9 - Sepsis, unspecified organism Status: Acute (3) UTI (urinary tract infection) ICD Code: N39.0 - Urinary tract infection, site not specified (4) Chronic kidney disease, stage V ICD Code: N18.5 - Chronic kidney disease, stage 5 (5) HIV (human immunodeficiency virus infection) ICD Code: B20 - Human immunodeficiency virus [HIV] disease (6) Anemia ICD Code: D64.9 - Anemia, unspecified (7) Hypertension ICD Code: I10 - Essential (primary) hypertension (8) Medical non-compliance ICD Code: Z91.19 - Patient's noncompliance with other medical treatment and regimen Assessment and Plan 50-year-old man with Severe sepsis secondary to UTI, pneumonia-resolved AIDS-noncompliance - Status post treatment with Zosyn. Patient is immunocompromised, noncompliant with HAART for the last 2 months. - HSV positive. 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 Blood mycobacterial culture growing acid fast organism. Afebrile. - Continue Levaquin. Continue PCP prophylaxis. Fever, intermittent Management per infectious disease specialist Acute renal failure superimposed on chronic kidney disease stage V - Nephrology following, remains non-oliguric. - SPEP, serology negative. Creatinine improving some. - HD per nephrology. HIV/AIDS - CD4 count less than 20. Patient admitted to being noncompliant with HAART meds for the last 2 months. He has been counseled. 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 - Awaiting consult from retina specialist Oral thrush, improved: Treatment with Diflucan Anemia - Transfused packed red blood cell Continue to monitor H&H DVT prophylaxis: Heparin. Problem Qualifiers (1) Renal failure: (2) Sepsis: Nelson Michelle MD Dec 17, 2016 14:29
--- NOTE | 2016-12-17 15:20 | HHI.IDPN ---
Subjective Subjective Remarks Patient is a 50-year-old male, with known HIV, end stage AIDS, non compliant He presented with multiple complaints and was diagnosed with disseminated MAC, ARF He was started on Bix, ethambutol for MAC, BC with AFB, no ID yet Has been afebrile since EMB started Has been getting HD T-- had renal biopsy and results pending C/O blurry vision Ophtha eval showed vasculitis, possible CMV retinitis Started on IV Ganciclovir 12/04 Notes reviewed Still having intermittent fevers Had HD today No new complaints BC done from permacath today - I spoke with HD RN No BM today, (+) flatus No N/V Visual symptoms better No respiratory complaint Voiding ok, UA ok S/P PD cath placement 12/14 Antibiotics Rifampin Biaxin Ethambutol fluconazole Bactrim PCP prophylaxis Ganciclovir IV Lines permacath Past Medical History HIV, for 20+years, noncompliant with medications for the past 2 months Kidney stones Allergies: Coded Allergies: No Known Allergies (Unverified , 11/05/16) Objective . Vital Signs Date Time Temp Pulse Resp B/P (MAP) Pulse Ox O2 Delivery O2 Flow Rate FiO2 12/17/16 12:00 99.8 105 20 124/85 (98) 97 12/17/16 11:20 Room Air 21 12/17/16 08:00 99.1 98 20 134/88 (103) 99 12/17/16 04:00 97.9 77 18 140/70 (93) 100 12/17/16 00:00 99.0 83 20 112/76 (88) 99 12/16/16 20:00 100.9 98 20 127/81 (96) 99 12/16/16 19:15 Room Air 12/16/16 19:15 105 12/16/16 16:52 109 12/16/16 16:00 100.5 92 18 141/88 (105) 100 12/17/16 12/17/16 12/18/16 15:00 23:00 07:00 Output Total 2500 ml Balance -2500 ml Hemodialysis 2500 ml . Microbiology Date/Time Source Procedure Growth Status 12/17/16 09:00 Blood Other Aerobic Blood Culture Pending Received 12/17/16 09:00 Blood Other Anaerobic Blood Culture Pending Received 12/15/16 19:25 Blood Other Aerobic Blood Culture - Preliminary NO GROWTH IN 2 DAYS Resulted 12/15/16 19:25 Blood Other Anaerobic Blood Culture - Final QNS - SEE AEROBE REPORT Resulted 12/15/16 19:20 Blood Other Aerobic Blood Culture - Preliminary NO GROWTH IN 2 DAYS Resulted 12/15/16 19:20 Blood Other Anaerobic Blood Culture - Final QNS - SEE AEROBE REPORT Resulted Imaging Last Impressions Renal Biopsy CT 12/01/16 0600 Signed Impressions: Service Date/Time: November 14:17 - CONCLUSION: Uncomplicated CT guided biopsy. Alexis Adhikari MD Central Venous Line 11/29/16 0000 Signed Impressions: Service Date/Time: Tuesday, November 29, 2016 00:00 - CONCLUSION: Uncomplicated catheter removal. Solitario Diaz MD Catheter Placement X-Ray 11/29/16 0000 Signed Impressions: Service Date/Time: Tuesday, November 29, 2016 13:58 - CONCLUSION: Uncomplicated PermaCath placement as above. Solitario Diaz MD Tumor Localization 11/14/16 0000 Signed Impressions: Service Date/Time: Monday, November 14, 2016 11:38 - CONCLUSION: Negative scan Solitario Diaz MD Chest X-Ray 11/13/16 0000 Signed Impressions: Service Date/Time: Sunday, November 13, 2016 16:02 - CONCLUSION: No acute cardiopulmonary disease. Quincy Medellin MD Renal Ultrasound 11/05/16 0000 Signed Impressions: Service Date/Time: Saturday, November 05, 2016 19:17 - CONCLUSION: Diffusely echogenic kidneys indicating medical renal disease. Dorian Murry MD Abdomen/Pelvis CT 11/05/16 0000 Signed Impressions: Service Date/Time: Saturday, November 05, 2016 17:19 - CONCLUSION: 1. 4 mm calculus in the right renal pelvis/ureteropelvic junction with mild adjacent perinephric/periureteral stranding. No evidence of hydronephrosis. 2. 1 cm round hypodensity in the anterior right mid kidney statistically most likely to represent a cyst. 3. 3.7 cm hypodensity in the right lobe of the liver air the dome of the diaphragm. This finding is nonspecific on noncontrast CT. The most likely etiologies include hemangioma and cyst. It could be further evaluated with ultrasound nonemergent followup MRI of the abdomen. 4. Mild dilated proximal right common iliac artery. Dorian Murry MD Physical Exam GENERAL: awake and alert, not in respiratory distress. SKIN: Warm and dry. HEAD: Atraumatic. Normocephalic. No temporal wasting, or tenderness. EYES: [place] conjunctiva. No petechia or hemorrhage. No scleral icterus. No injection or drainage. EARS, NOSE AND THROAT: Nose without bleeding or purulent nasal discharge. Mucous membranes pink and moist. White coating on tongue NECK: Trachea midline. Supple and not tender, no meningeal signs CARDIOVASCULAR: Regular rate and rhythm. No murmurs, rubs or gallops heard RESPIRATORY: Clear to auscultation. Breath sounds equal bilaterally. No rales , wheezing or rhonchi ABDOMEN: Soft, mild tenderness, not distended, dry dressing over cath. Bowel sounds present and normoactive. No guarding. No rebound. No organomegaly. Has [place] non tender nodule on R lateral groin (chronic been there for years, not getting bigger) EXTREMITIES: No clubbing, cyanosis, or edema.No joint effusion, has good ROM. No calf tenderness. Well perfused and warm. NEUROLOGICAL: Awake alert Non-focal PSYCHIATRIC: Normal affect, calm and cooperative. 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
[2016-12-17] MEDS: CLARITHROMYCIN 500 MG TAB PO SCH ×2 (17:15→20:36)
[2016-12-17] MEDS: LACTOBACILLUS ACIDOPHILUS TAB PO SCH ×2 (17:15→20:30)
[2016-12-17] MEDS: RIFAMPIN 150 MG CAP PO SCH ×2 (17:15→20:29)
[2016-12-17] MEDS: ETHAMBUTOL HCL 400 MG TAB PO SCH (17:15)
[2016-12-17] MEDS: DOCUSATE SODIUM 50 MG/SENNA 8.6 MG TAB PO SCH ×2 (17:15→20:28)
[2016-12-17] MEDS: ACETAMINOPHEN 325 MG TAB PO PRN (23:46)
[2016-12-18 04:00] VITALS: BP 112/81; PULSE 86; RESP 20; TEMP 98.2; O2SAT 100
[2016-12-18 08:00] VITALS: BP 128/79; PULSE 94; RESP 20; TEMP 99.2; O2SAT 98
[2016-12-18] MEDS: DOCUSATE SODIUM 50 MG/SENNA 8.6 MG TAB PO SCH ×2 (09:00→21:00)
[2016-12-18] MEDS: CLARITHROMYCIN 500 MG TAB PO SCH ×2 (09:15→21:31)
[2016-12-18] MEDS: ETHAMBUTOL HCL 400 MG TAB PO SCH (09:15)
[2016-12-18] MEDS: LACTOBACILLUS ACIDOPHILUS TAB PO SCH ×2 (09:15→21:30)
[2016-12-18] MEDS: SODIUM CHLORIDE 0.9% FLUSH 10 ML FLUSH IV FLUSH SCH ×2 (09:16→21:31)
[2016-12-18] MEDS: RIFAMPIN 150 MG CAP PO SCH ×2 (09:16→21:31)
--- NOTE | 2016-12-18 10:55 | HHI.PR ---
Subjective Remarks Follow-up sepsis/recurrent fevers/noncompliance HIV/end-stage renal disease 12/17/16-patient seen and examined, continued to spike fevers and had HD today 12/18/16-patient seen and examined, he continues to spike fever with MAXIMUM TEMPERATURE 102 at 2300. Denies any chills or cough production. Not much of an appetite Objective Vitals Vital Signs Date Time Temp Pulse Resp B/P (MAP) Pulse Ox O2 Delivery O2 Flow Rate FiO2 12/18/16 08:00 99.2 94 20 128/79 (95) 98 12/18/16 04:00 98.2 86 20 112/81 (91) 100 12/17/16 23:15 102.0 105 20 109/68 (82) 98 12/17/16 20:00 98.8 107 20 139/84 (102) 98 12/17/16 20:00 109 12/17/16 20:00 Room Air 12/17/16 16:00 98.7 103 20 123/84 (97) 99 12/17/16 12:00 99.8 105 20 124/85 (98) 97 12/17/16 11:20 Room Air 21 I/O 12/17/16 12/17/16 12/17/16 12/18/16 12/18/16 12/18/16 07:00 15:00 23:00 07:00 15:00 23:00 Intake Total 480 ml 1180 ml 120 ml Output Total 100 ml 2500 ml 550 ml 120 ml Balance 380 ml -2500 ml 630 ml 0 ml Intake Oral 480 ml 1180 ml 120 ml Output Urine Total 100 ml 550 ml 120 ml Hemodialysis 2500 ml # Bowel Movements 0 0 0 Objective Remarks GENERAL: NAD SKIN: Warm and dry. HEAD: Normocephalic. EYES: No scleral icterus. No injection or drainage. NECK: Supple, trachea midline. No JVD or lymphadenopathy. CARDIOVASCULAR: Regular rate and rhythm without murmurs, gallops, or rubs. RESPIRATORY: Breath sounds equal bilaterally. No accessory muscle use. GASTROINTESTINAL: Abdomen soft, non-tender, nondistended. MUSCULOSKELETAL: No cyanosis, or edema. BACK: Nontender without obvious deformity. No CVA tenderness. Procedures 11/14/16 hemodialysis catheter placement, right internal jugular 12/14 PD cath placement Side: Right A/P Problem List: (1) Renal failure ICD Code: N19 - Unspecified kidney failure Status: Acute (2) Sepsis ICD Code: A41.9 - Sepsis, unspecified organism Status: Acute (3) UTI (urinary tract infection) ICD Code: N39.0 - Urinary tract infection, site not specified (4) Chronic kidney disease, stage V ICD Code: N18.5 - Chronic kidney disease, stage 5 (5) HIV (human immunodeficiency virus infection) ICD Code: B20 - Human immunodeficiency virus [HIV] disease (6) Anemia ICD Code: D64.9 - Anemia, unspecified (7) Hypertension ICD Code: I10 - Essential (primary) hypertension (8) Medical non-compliance ICD Code: Z91.19 - Patient's noncompliance with other medical treatment and regimen Assessment and Plan 50-year-old man with Severe sepsis secondary to UTI, pneumonia-resolved AIDS-noncompliance - Status post treatment with Zosyn. Patient is immunocompromised, noncompliant with HAART for the last 2 months. - HSV positive. 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 Blood mycobacterial culture growing acid fast organism. Afebrile. - Continue Levaquin. Continue PCP prophylaxis. Fever, intermittent Management per infectious disease specialist May consider gallium scan Acute renal failure superimposed on chronic kidney disease stage V - Nephrology following, remains non-oliguric. - SPEP, serology negative. Creatinine improving some. - HD per nephrology. HIV/AIDS - CD4 count less than 20. Patient admitted to being noncompliant with HAART meds for the last 2 months. He has been counseled. 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 - Currently on IV Ganciclovir 12/04 Oral thrush, improved: Treatment with Diflucan Anemia - Transfused packed red blood cell Continue to monitor H&H DVT prophylaxis: Heparin. Problem Qualifiers (1) Renal failure: (2) Sepsis: Nelson Michelle MD Dec 18, 2016 10:55
[2016-12-18 12:00] VITALS: BP 134/83; PULSE 91; RESP 20; TEMP 97.6; O2SAT 98
--- NOTE | 2016-12-18 13:36 | HHI.NPPN ---
Subjective History of Present Illness 50-year-old male with past medical history of HIV disease for more than 20 years and history of renal stone who came to the hospital with complaint of back pain. The patient has back pain going on for the last 2 months off and on and he came to the emergency department yesterday with worsening pain. Additional Remarks Patient is alert, no specific complain, still spiking fever, not eating well. Review of Systems General Constitutional: Fatigue Cardiovascular Cardiac: MIRZA Objective Data Data Vital Signs Date Time Temp Pulse Resp B/P (MAP) Pulse Ox O2 Delivery O2 Flow Rate FiO2 12/18/16 11:04 Room Air 21 12/18/16 08:00 99.2 94 20 128/79 (95) 98 12/18/16 04:00 98.2 86 20 112/81 (91) 100 12/17/16 23:15 102.0 105 20 109/68 (82) 98 12/17/16 20:00 98.8 107 20 139/84 (102) 98 12/17/16 20:00 109 12/17/16 20:00 Room Air 12/17/16 16:00 98.7 103 20 123/84 (97) 99 Physical Exam General Appearance: No Acute Distress, Comfortable Eyes Eye Exam: Pupils Equal Throat Throat Exam: Oral Mucosa [place] & Moist Pulmonary Resp Exam: Breath Sounds Equal, No Distress, Rhonchi, Decreased Bases Cardiology CV Exam: Regular, Normal Sinus Rhythm Gastrointestinal/Abdomen GI Exam: Soft, Non-Tender, Bowel Sounds Present Extremeties Extremities Exam: No Edema Neurologic Neuro Exam: Alert, Awake, Oriented Psychiatric Psych Exam: Appropriate Responses Assessment/Plan Assessment Summary: MIKE/Acute Renal Failure Problem List: (1) Renal failure ICD Codes: N19 - Unspecified kidney failure Status: Acute (2) Sepsis ICD Codes: A41.9 - Sepsis, unspecified organism Status: Acute (3) Open wound of scrotum ICD Codes: S31.30XA - Unspecified open wound of scrotum and testes, initial encounter Status: Acute Plan c/o blurry vision left eye Remain non oliguric. SPEP was negative. Complements normal, other serology also negative. BP is better, on Metoprolol to 50 mg BID. If renal function will not improve, will consider Renal Biopsy once infection is controlled. Fever pattern is better, ID is following. Now on Bactrim, Acyclovir, Clarithromycin and Ethambutol. No improvement in renal function. Possibly has End stage renal disease. Got PermCath. 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 No need to repeat the renal Biopsy as clinically he is showing no improvement, and the with advance HIV , the treatment options are limited, cannot be given immunosuppressive drugs. I discussed this in detail with patient. Now he change his mind and want to go for PD from ID stand point. He understand increase risk of infection due to advance HIV. Has PD catheter done. Also now on Ganciclovir, ID following. HD done yesterday, follow labs and cultures. Continue antibiotics as per ID. Problem Qualifiers (1) Renal failure: (2) Sepsis: Kwadwo Shah MD Dec 18, 2016 13:36
[2016-12-18 16:00] VITALS: BP 137/82; PULSE 111; RESP 20; TEMP 102.8; O2SAT 98
[2016-12-18] MEDS: ACETAMINOPHEN 325 MG TAB PO PRN (18:30)
[2016-12-18 20:00] VITALS: PULSE 108
[2016-12-18 21:28] VITALS: TEMP 98.5
[2016-12-19] VITALS (9 sets, daily range): BP systolic 105–132; BP diastolic 66–89; PULSE 81–115; RESP 16–20; TEMP 97.9–101.8; O2SAT 98–100
[2016-12-19] MEDS: ACETAMINOPHEN 325 MG TAB PO PRN ×2 (05:22→19:23)
[2016-12-19] MEDS: DOCUSATE SODIUM 50 MG/SENNA 8.6 MG TAB PO SCH ×2 (09:00→21:00)
[2016-12-19] MEDS: SODIUM CHLORIDE 0.9% FLUSH 10 ML FLUSH IV FLUSH SCH ×2 (09:32→22:17)
[2016-12-19] MEDS: CLARITHROMYCIN 500 MG TAB PO SCH ×2 (09:32→22:13)
[2016-12-19] MEDS: LACTOBACILLUS ACIDOPHILUS TAB PO SCH ×2 (09:32→22:18)
[2016-12-19] MEDS: ETHAMBUTOL HCL 400 MG TAB PO SCH (09:32)
[2016-12-19] MEDS: RIFAMPIN 150 MG CAP PO SCH ×2 (09:32→22:13)
[2016-12-19] MEDS: SULFAMETHOXAZOLE-TRIMETHOPRIM DS 800-160 MG TAB PO SCH (09:32)
--- NOTE | 2016-12-19 10:47 | HHI.IDPN ---
Subjective Subjective Remarks Patient is a 50-year-old male, with known HIV, end stage AIDS, non compliant He presented with multiple complaints and was diagnosed with disseminated MAC, ARF He was started on Bix, ethambutol for MAC, BC with AFB, no ID yet Has been afebrile since EMB started Has been getting HD - had renal biopsy and results pending C/O blurry vision Ophtha eval showed vasculitis, possible CMV retinitis Started on IV Ganciclovir 12/04 Notes reviewed Still having intermittent fevers No new complaints BC all negative S/P PD cath placement 12/14 Antibiotics Rifampin Biaxin Ethambutol fluconazole Bactrim PCP prophylaxis Ganciclovir IV Lines permacath Past Medical History HIV, for 20+years, noncompliant with medications for the past 2 months Kidney stones Allergies: Coded Allergies: No Known Allergies (Unverified , 11/05/16) Objective . Vital Signs Date Time Temp Pulse Resp B/P (MAP) Pulse Ox O2 Delivery O2 Flow Rate FiO2 12/19/16 09:27 Room Air 12/19/16 09:27 91 12/19/16 08:00 98.7 92 20 116/75 (89) 100 12/19/16 06:50 98.1 12/19/16 05:22 101.8 12/19/16 04:00 109 20 132/80 (97) 99 12/19/16 00:36 Room Air 12/19/16 00:36 98.2 82 16 119/89 (99) 100 12/18/16 21:28 98.5 12/18/16 20:00 108 12/18/16 16:00 102.8 111 20 137/82 (100) 98 12/18/16 12:00 97.6 91 20 134/83 (100) 98 12/18/16 11:04 Room Air 21 . Microbiology Date/Time Source Procedure Growth Status 12/17/16 09:00 Blood Other Aerobic Blood Culture - Preliminary NO GROWTH IN 1 DAY Resulted 12/17/16 09:00 Blood Other Anaerobic Blood Culture - Preliminary NO GROWTH IN 1 DAY Resulted Imaging Last Impressions Renal Biopsy CT 12/01/16 0600 Signed Impressions: Service Date/Time: November 14:17 - CONCLUSION: Uncomplicated CT guided biopsy. Alexis Adhikari MD Central Venous Line 11/29/16 Signed Impressions: Service Date/Time: Tuesday, November 29, 2016 00:00 - CONCLUSION: Uncomplicated catheter removal. Solitario Diaz MD Catheter Placement X-Ray 11/29/16 Signed Impressions: Service Date/Time: Tuesday, November 29, 2016 13:58 - CONCLUSION: Uncomplicated PermaCath placement as above. Solitario Diaz MD Tumor Localization 11/14/16 Signed Impressions: Service Date/Time: Monday, November 14, 2016 11:38 - CONCLUSION: Negative scan Solitario Diaz MD Chest X-Ray 11/13/16 Signed Impressions: Service Date/Time: Sunday, November 13, 2016 16:02 - CONCLUSION: No acute cardiopulmonary disease. Quincy Medellin MD Renal Ultrasound 11/05/16 Signed Impressions: Service Date/Time: Saturday, November 05, 2016 19:17 - CONCLUSION: Diffusely echogenic kidneys indicating medical renal disease. Dorian Murry MD Abdomen/Pelvis CT 11/05/16 Signed Impressions: Service Date/Time: Saturday, November 05, 2016 17:19 - CONCLUSION: 1. 4 mm calculus in the right renal pelvis/ureteropelvic junction with mild adjacent perinephric/periureteral stranding. No evidence of hydronephrosis. 2. 1 cm round hypodensity in the anterior right mid kidney statistically most likely to represent a cyst. 3. 3.7 cm hypodensity in the right lobe of the liver air the dome of the diaphragm. This finding is nonspecific on noncontrast CT. The most likely etiologies include hemangioma and cyst. It could be further evaluated with ultrasound nonemergent followup MRI of the abdomen. 4. Mild dilated proximal right common iliac artery. Dorian Murry MD Physical Exam GENERAL: awake and alert, not in respiratory distress. SKIN: Warm and dry. HEAD: Atraumatic. Normocephalic. No temporal wasting, or tenderness. EYES: [place] conjunctiva. No petechia or hemorrhage. No scleral icterus. No injection or drainage. EARS, NOSE AND THROAT: Nose without bleeding or purulent nasal discharge. Mucous membranes pink and moist. White coating on tongue NECK: Trachea midline. Supple and not tender, no meningeal signs CARDIOVASCULAR: Regular rate and rhythm. No murmurs, rubs or gallops heard RESPIRATORY: Clear to auscultation. Breath sounds equal bilaterally. No rales , wheezing or rhonchi ABDOMEN: Soft, mild tenderness, not distended, dry dressing over cath. Bowel sounds present and normoactive. No guarding. No rebound. No organomegaly. Has [place] brown non tender nodule on R lateral groin (chronic been there for years, not getting bigger) EXTREMITIES: No clubbing, cyanosis, or edema.No joint effusion, has good ROM. No calf tenderness. Well perfused and warm. NEUROLOGICAL: Awake alert Non-focal PSYCHIATRIC: Normal affect, calm and cooperative. 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
--- NOTE | 2016-12-19 11:17 | HHI.PR ---
Subjective Remarks Follow-up sepsis/recurrent fevers/noncompliance HIV/end-stage renal disease 12/17/16-patient seen and examined, continued to spike fevers and had HD today 12/18/16-patient seen and examined, he continues to spike fever with MAXIMUM TEMPERATURE 102 at 2300. Denies any chills or cough production. Not much of an appetite 12/19/16-patient seen and examined, still spiking fevers. Denies any other issues Objective Vitals Vital Signs Date Time Temp Pulse Resp B/P (MAP) Pulse Ox O2 Delivery O2 Flow Rate FiO2 12/19/16 09:27 Room Air 12/19/16 09:27 91 12/19/16 08:00 98.7 92 20 116/75 (89) 100 12/19/16 06:50 98.1 12/19/16 05:22 101.8 12/19/16 04:00 109 20 132/80 (97) 99 12/19/16 00:36 Room Air 12/19/16 00:36 98.2 82 16 119/89 (99) 100 12/18/16 21:28 98.5 12/18/16 20:00 108 12/18/16 16:00 102.8 111 20 137/82 (100) 98 12/18/16 12:00 97.6 91 20 134/83 (100) 98 I/O 12/18/16 12/18/16 12/18/16 12/19/16 12/19/16 12/19/16 06:59 14:59 22:59 06:59 14:59 22:59 Intake Total 120 ml 960 ml 240 ml Output Total 120 ml 200 ml Balance 0 ml 960 ml 40 ml Intake Oral 120 ml 960 ml 240 ml Output Urine Total 120 ml 200 ml # Voids 3 # Bowel Movements 0 0 Objective Remarks GENERAL: NAD SKIN: Warm and dry. HEAD: Normocephalic. EYES: No scleral icterus. No injection or drainage. NECK: Supple, trachea midline. No JVD or lymphadenopathy. CARDIOVASCULAR: Regular rate and rhythm without murmurs, gallops, or rubs. RESPIRATORY: Breath sounds equal bilaterally. No accessory muscle use. GASTROINTESTINAL: Abdomen soft, non-tender, nondistended. MUSCULOSKELETAL: No cyanosis, or edema. BACK: Nontender without obvious deformity. No CVA tenderness. Procedures 11/14/16 hemodialysis catheter placement, right internal jugular 12/14 PD cath placement Side: Right A/P Problem List: (1) Renal failure ICD Code: N19 - Unspecified kidney failure Status: Acute (2) Sepsis ICD Code: A41.9 - Sepsis, unspecified organism Status: Acute (3) UTI (urinary tract infection) ICD Code: N39.0 - Urinary tract infection, site not specified (4) Chronic kidney disease, stage V ICD Code: N18.5 - Chronic kidney disease, stage 5 (5) HIV (human immunodeficiency virus infection) ICD Code: B20 - Human immunodeficiency virus [HIV] disease (6) Anemia ICD Code: D64.9 - Anemia, unspecified (7) Hypertension ICD Code: I10 - Essential (primary) hypertension (8) Medical non-compliance ICD Code: Z91.19 - Patient's noncompliance with other medical treatment and regimen Assessment and Plan 50-year-old man with Severe sepsis secondary to UTI, pneumonia-resolved AIDS-noncompliance - Status post treatment with Zosyn. Patient is immunocompromised, noncompliant with HAART for the last 2 months. - HSV positive. 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 Blood mycobacterial culture growing acid fast organism. Afebrile. - Continue Levaquin. Continue PCP prophylaxis. Fever, intermittent Management per infectious disease specialist Plan for gallium scan possible today 12/19/16 as patient still spiking fever Acute renal failure superimposed on chronic kidney disease stage V - Nephrology following, remains non-oliguric. - SPEP, serology negative. Creatinine improving some. - HD per nephrology. HIV/AIDS - CD4 count less than 20. Patient admitted to being noncompliant with HAART meds for the last 2 months. He has been counseled. 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 - Currently on IV Ganciclovir 12/04 Oral thrush, improved: Treatment with Diflucan Anemia - Transfused packed red blood cell Continue to monitor H&H DVT prophylaxis: Heparin. Problem Qualifiers (1) Renal failure: (2) Sepsis: Nelson Michelle MD Dec 19, 2016 11:17
--- NOTE | 2016-12-19 16:53 | HHI.NPPN ---
Subjective History of Present Illness 50-year-old male with past medical history of HIV disease for more than 20 years and history of renal stone who came to the hospital with complaint of back pain. The patient has back pain going on for the last 2 months off and on and he came to the emergency department yesterday with worsening pain. Additional Remarks Patient is alert, no specific complain, still spiking fever, no SOB. Review of Systems General Constitutional: Fatigue Cardiovascular Cardiac: MIRZA Objective Data Data Vital Signs Date Time Temp Pulse Resp B/P (MAP) Pulse Ox O2 Delivery O2 Flow Rate FiO2 12/19/16 12:00 99.1 88 20 117/82 (94) 100 12/19/16 09:27 Room Air 12/19/16 09:27 91 12/19/16 08:00 98.7 92 20 116/75 (89) 100 12/19/16 06:50 98.1 12/19/16 05:22 101.8 12/19/16 04:00 109 20 132/80 (97) 99 12/19/16 00:36 Room Air 12/19/16 00:36 98.2 82 16 119/89 (99) 100 12/18/16 21:28 98.5 12/18/16 20:00 108 Physical Exam General Appearance: No Acute Distress, Comfortable Eyes Eye Exam: Pupils Equal Throat Throat Exam: Oral Mucosa [place] & Moist Pulmonary Resp Exam: Breath Sounds Equal, No Distress, Rhonchi, Decreased Bases Cardiology CV Exam: Regular, Normal Sinus Rhythm Gastrointestinal/Abdomen GI Exam: Soft, Non-Tender, Bowel Sounds Present Extremeties Extremities Exam: No Edema Neurologic Neuro Exam: Alert, Awake, Oriented Psychiatric Psych Exam: Appropriate Responses Assessment/Plan Assessment Summary: MIKE/Acute Renal Failure Problem List: (1) Renal failure ICD Codes: N19 - Unspecified kidney failure Status: Acute (2) Sepsis ICD Codes: A41.9 - Sepsis, unspecified organism Status: Acute (3) Open wound of scrotum ICD Codes: S31.30XA - Unspecified open wound of scrotum and testes, initial encounter Status: Acute Plan c/o blurry vision left eye Remain non oliguric. SPEP was negative. Complements normal, other serology also negative. BP is better, on Metoprolol to 50 mg BID. If renal function will not improve, will consider Renal Biopsy once infection is controlled. Fever pattern is better, ID is following. Now on Bactrim, Acyclovir, Clarithromycin and Ethambutol. No improvement in renal function. Possibly has End stage renal disease. Got PermCath. 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 No need to repeat the renal Biopsy as clinically he is showing no improvement, and the with advance HIV , the treatment options are limited, cannot be given immunosuppressive drugs. I discussed this in detail with patient. Now he change his mind and want to go for PD from ID stand point. He understand increase risk of infection due to advance HIV. Has PD catheter done. Also now on Ganciclovir, ID following. HD to continue TTS. Doing Gallium scan. Problem Qualifiers (1) Renal failure: (2) Sepsis: Kwadwo Shah MD Dec 19, 2016 16:53
[2016-12-20] VITALS (7 sets, daily range): BP systolic 110–148; BP diastolic 78–90; PULSE 88–112; RESP 16–21; TEMP 98.8–102.8; O2SAT 94–100
[2016-12-20] MEDS: ACETAMINOPHEN 325 MG TAB PO PRN ×2 (08:45→20:29)
[2016-12-20] MEDS: CLARITHROMYCIN 500 MG TAB PO SCH ×2 (08:45→20:30)
[2016-12-20] MEDS: ETHAMBUTOL HCL 400 MG TAB PO SCH (08:45)
[2016-12-20] MEDS: RIFAMPIN 150 MG CAP PO SCH ×2 (08:45→20:30)
[2016-12-20] MEDS: SODIUM CHLORIDE 0.9% FLUSH 10 ML FLUSH IV FLUSH SCH ×2 (08:45→20:29)
[2016-12-20] MEDS: DOCUSATE SODIUM 50 MG/SENNA 8.6 MG TAB PO SCH ×2 (08:46→20:30)
[2016-12-20] MEDS: LACTOBACILLUS ACIDOPHILUS TAB PO SCH ×2 (08:47→20:30)
[2016-12-20] MEDS ORDERED: SOD PHOSPHATE/SOD BIPHOSPHATE (ADULT) ENEMA 133ML RECTAL ONE (09:15)
--- NOTE | 2016-12-20 09:56 | HHI.PR ---
Subjective Remarks Follow-up sepsis/recurrent fevers/noncompliance HIV/end-stage renal disease 12/17/16-patient seen and examined, continued to spike fevers and had HD today 12/18/16-patient seen and examined, he continues to spike fever with MAXIMUM TEMPERATURE 102 at 2300. Denies any chills or cough production. Not much of an appetite 12/19/16-patient seen and examined, still spiking fevers. Denies any other issues 12/20/16-patient seen and examined, maximal 101.3 at 8 AM, no chills or shortness of breath. Performed first round of gallium scan yesterday Objective Vitals Vital Signs Date Time Temp Pulse Resp B/P (MAP) Pulse Ox O2 Delivery O2 Flow Rate FiO2 12/20/16 08:00 101.3 97 20 127/79 (95) 100 12/20/16 04:00 98.8 96 18 133/90 (104) 94 12/20/16 00:00 98.8 89 21 110/81 (91) 95 12/19/16 20:00 89 12/19/16 20:00 98.6 81 18 105/66 (79) 99 12/19/16 20:00 Room Air 12/19/16 16:00 97.9 115 20 112/75 (87) 98 12/19/16 12:00 99.1 88 20 117/82 (94) 100 I/O 12/19/16 12/19/16 12/19/16 12/20/16 12/20/16 12/20/16 07:00 15:00 23:00 07:00 15:00 23:00 Intake Total 240 ml 600 ml 580 ml Output Total 200 ml 125 ml 150 ml Balance 40 ml 475 ml 430 ml Intake Oral 240 ml 600 ml 580 ml Output Urine Total 200 ml 125 ml 150 ml # Bowel Movements 1 0 Objective Remarks GENERAL: NAD SKIN: Warm and dry. HEAD: Normocephalic. EYES: No scleral icterus. No injection or drainage. NECK: Supple, trachea midline. No JVD or lymphadenopathy. CARDIOVASCULAR: Regular rate and rhythm without murmurs, gallops, or rubs. RESPIRATORY: Breath sounds equal bilaterally. No accessory muscle use. GASTROINTESTINAL: Abdomen soft, non-tender, nondistended. MUSCULOSKELETAL: No cyanosis, or edema. BACK: Nontender without obvious deformity. No CVA tenderness. Procedures 11/14/16 hemodialysis catheter placement, right internal jugular 12/14 PD cath placement Side: Right A/P Problem List: (1) Renal failure ICD Code: N19 - Unspecified kidney failure Status: Acute (2) Sepsis ICD Code: A41.9 - Sepsis, unspecified organism Status: Acute (3) UTI (urinary tract infection) ICD Code: N39.0 - Urinary tract infection, site not specified (4) Chronic kidney disease, stage V ICD Code: N18.5 - Chronic kidney disease, stage 5 (5) HIV (human immunodeficiency virus infection) ICD Code: B20 - Human immunodeficiency virus [HIV] disease (6) Anemia ICD Code: D64.9 - Anemia, unspecified (7) Hypertension ICD Code: I10 - Essential (primary) hypertension (8) Medical non-compliance ICD Code: Z91.19 - Patient's noncompliance with other medical treatment and regimen Assessment and Plan 50-year-old man with Severe sepsis secondary to UTI, pneumonia-resolved AIDS-noncompliance - Status post treatment with Zosyn. Patient is immunocompromised, noncompliant with HAART for the last 2 months. - HSV positive. 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 Blood mycobacterial culture growing acid fast organism. Afebrile. - Continue Levaquin. Continue PCP prophylaxis. Fever, intermittent Management per infectious disease specialist To complete gallium scan today 12/20/16 Acute renal failure superimposed on chronic kidney disease stage V - Nephrology following, remains non-oliguric. - SPEP, serology negative. Creatinine improving some. - HD per nephrology. HIV/AIDS - CD4 count less than 20. Patient admitted to being noncompliant with HAART meds for the last 2 months. He has been counseled. 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 - Currently on IV Ganciclovir 12/04 Oral thrush, improved: Treatment with Diflucan Anemia - Transfused packed red blood cell Continue to monitor H&H DVT prophylaxis: Heparin. Problem Qualifiers (1) Renal failure: (2) Sepsis: Nelson Michelle MD Dec 20, 2016 09:56
[2016-12-20] MEDS: EPOETIN ALFA 10,000 UNITS/ML VIAL IV PRN (11:24)
[2016-12-20] MEDS: HEPARIN SODIUM - IV 10,000 UNITS/10 ML VIAL PRN (11:24)
[2016-12-20] MEDS: GENTAMICIN SULFATE (DIALYSIS USE ONLY) 20 MG/2 ML VIAL IV PRN (11:24)
[2016-12-20] MEDS: ALBUMIN HUMAN 25% 25 GM/100 ML BAGP IV PRN (11:44)
[2016-12-20] MEDS: SODIUM CHLORIDE 0.9% IV SCH (16:36)
[2016-12-20] MEDS: GANCICLOVIR IV SCH (16:36)
[2016-12-20] MEDS: ONDANSETRON HCL 4 MG/2 ML VIAL IVP PRN (20:56)
--- NOTE | 2016-12-20 22:14 | HHI.NPPN ---
Subjective History of Present Illness 50-year-old male with past medical history of HIV disease for more than 20 years and history of renal stone who came to the hospital with complaint of back pain. The patient has back pain going on for the last 2 months off and on and he came to the emergency department yesterday with worsening pain. Additional Remarks Patient is alert, no SOB, feeling tired, not eating well, not in distress. Review of Systems General Constitutional: Fatigue Cardiovascular Cardiac: MIRZA Objective Data Data 12/20/16 12/21/16 19:00 07:00 Intake Total 460 ml Output Total 2000 ml Balance -1540 ml Intake Oral 360 ml IV Total 100 ml Hemodialysis 2000 ml # Voids 1 # Bowel Movements 1 Vital Signs Date Time Temp Pulse Resp B/P (MAP) Pulse Ox O2 Delivery O2 Flow Rate FiO2 12/20/16 16:00 99.0 88 18 148/90 (109) 98 12/20/16 11:35 102 12/20/16 08:48 Room Air 12/20/16 08:00 101.3 97 20 127/79 (95) 100 12/20/16 04:00 98.8 96 18 133/90 (104) 94 12/20/16 00:00 98.8 89 21 110/81 (91) 95 Physical Exam General Appearance: No Acute Distress, Comfortable Eyes Eye Exam: Pupils Equal Throat Throat Exam: Oral Mucosa [place] & Moist Pulmonary Resp Exam: Breath Sounds Equal, No Distress, Rhonchi, Decreased Bases Cardiology CV Exam: Regular, Normal Sinus Rhythm Gastrointestinal/Abdomen GI Exam: Soft, Non-Tender, Bowel Sounds Present Extremeties Extremities Exam: No Edema Neurologic Neuro Exam: Alert, Awake, Oriented Psychiatric Psych Exam: Appropriate Responses Assessment/Plan Assessment Summary: MIKE/Acute Renal Failure Problem List: (1) Renal failure ICD Codes: N19 - Unspecified kidney failure Status: Acute (2) Sepsis ICD Codes: A41.9 - Sepsis, unspecified organism Status: Acute (3) Open wound of scrotum ICD Codes: S31.30XA - Unspecified open wound of scrotum and testes, initial encounter Status: Acute Plan c/o blurry vision left eye Remain non oliguric. SPEP was negative. Complements normal, other serology also negative. BP is better, on Metoprolol to 50 mg BID. If renal function will not improve, will consider Renal Biopsy once infection is controlled. Fever pattern is better, ID is following. Now on Bactrim, Acyclovir, Clarithromycin and Ethambutol. No improvement in renal function. Possibly has End stage renal disease. Got PermCath. 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 No need to repeat the renal Biopsy as clinically he is showing no improvement, and the with advance HIV , the treatment options are limited, cannot be given immunosuppressive drugs. I discussed this in detail with patient. Now he change his mind and want to go for PD from ID stand point. He understand increase risk of infection due to advance HIV. Has PD catheter done. Also now on Ganciclovir, ID following. Still spiking fever, getting Gallium scan. ID is following. Problem Qualifiers (1) Renal failure: (2) Sepsis: Kwadwo Shah MD Dec 20, 2016 22:14
[2016-12-21] VITALS (7 sets, daily range): BP systolic 95–138; BP diastolic 58–87; PULSE 74–104; RESP 14–20; TEMP 97.7–100.1; O2SAT 99–100
--- NOTE | 2016-12-21 08:58 | HHI.IDPN ---
Subjective Subjective Remarks Patient is a 50-year-old male, with known HIV, end stage AIDS, non compliant He presented with multiple complaints and was diagnosed with disseminated MAC, ARF He was started on Bix, ethambutol for MAC, [place] with AFB, no ID yet Has been afebrile since EMB started Has been getting HD - had renal biopsy and results pending C/O blurry vision Ophtha eval showed vasculitis, possible CMV retinitis Started on IV Ganciclovir 12/04 Notes reviewed Still having intermittent fevers No new complaints Vision better No diarrhea No N/V No resp complaint Voiding ok No abdominal pain [place] have been negative Still no ID on AFB in [place] Antibiotics Rifampin Biaxin Ethambutol fluconazole Bactrim PCP prophylaxis Ganciclovir IV Lines permacath Past Medical History HIV, for 20+years, noncompliant with medications for the past 2 months Kidney stones Allergies: Coded Allergies: No Known Allergies (Unverified , 11/05/16) Objective . Vital Signs Date Time Temp Pulse Resp B/P (MAP) Pulse Ox O2 Delivery O2 Flow Rate FiO2 12/21/16 08:00 98.7 99 14 129/77 (94) 100 12/21/16 04:00 97.7 77 16 114/71 (85) 100 12/21/16 00:00 98.3 74 16 95/58 (70) 99 12/20/16 20:24 110 12/20/16 20:00 Room Air 12/20/16 20:00 102.8 112 16 126/78 (94) 98 12/20/16 16:00 99.0 88 18 148/90 (109) 98 12/20/16 11:35 102 Imaging Last Impressions Renal Biopsy CT 12/01/16 0600 Signed Impressions: Service Date/Time: November 14:17 - CONCLUSION: Uncomplicated CT guided biopsy. Alexis Adhikari MD Central Venous Line 11/29/16 0000 Signed Impressions: Service Date/Time: Tuesday, November 29, 2016 00:00 - CONCLUSION: Uncomplicated catheter removal. Solitario Diaz MD Catheter Placement X-Ray 11/29/16 0000 Signed Impressions: Service Date/Time: Tuesday, November 29, 2016 13:58 - CONCLUSION: Uncomplicated PermaCath placement as above. Solitario Diaz MD Tumor Localization 11/14/16 0000 Signed Impressions: Service Date/Time: Monday, November 14, 2016 11:38 - CONCLUSION: Negative scan Solitario Diaz MD Chest X-Ray 11/13/16 0000 Signed Impressions: Service Date/Time: Sunday, November 13, 2016 16:02 - CONCLUSION: No acute cardiopulmonary disease. Quincy Medellin MD Renal Ultrasound 11/05/16 0000 Signed Impressions: Service Date/Time: Saturday, November 05, 2016 19:17 - CONCLUSION: Diffusely echogenic kidneys indicating medical renal disease. Dorian Murry MD Abdomen/Pelvis CT 11/05/16 0000 Signed Impressions: Service Date/Time: Saturday, November 05, 2016 17:19 - CONCLUSION: 1. 4 mm calculus in the right renal pelvis/ureteropelvic junction with mild adjacent perinephric/periureteral stranding. No evidence of hydronephrosis. 2. 1 cm round hypodensity in the anterior right mid kidney statistically most likely to represent a cyst. 3. 3.7 cm hypodensity in the right lobe of the liver air the dome of the diaphragm. This finding is nonspecific on noncontrast CT. The most likely etiologies include hemangioma and cyst. It could be further evaluated with ultrasound nonemergent followup MRI of the abdomen. 4. Mild dilated proximal right common iliac artery. Dorian Murry MD Physical Exam GENERAL: awake and alert, not in respiratory distress. SKIN: Warm and dry. HEAD: Atraumatic. Normocephalic. No temporal wasting, or tenderness. EYES: [place] conjunctiva. No petechia or hemorrhage. No scleral icterus. No injection or drainage. EARS, NOSE AND THROAT: Nose without bleeding or purulent nasal discharge. Mucous membranes pink and moist. White coating on tongue NECK: Trachea midline. Supple and not tender, no meningeal signs CARDIOVASCULAR: Regular rate and rhythm. No murmurs, rubs or gallops heard RESPIRATORY: Clear to auscultation. Breath sounds equal bilaterally. No rales , wheezing or rhonchi ABDOMEN: Soft, mild tenderness, not distended, dry dressing over cath. Bowel sounds present and normoactive. No guarding. No rebound. No organomegaly. Has [place] brown non tender nodule on R lateral groin (chronic been there for years, not getting bigger) EXTREMITIES: No clubbing, cyanosis, or edema.No joint effusion, has good ROM. No calf tenderness. Well perfused and warm. NEUROLOGICAL: Awake alert Non-focal PSYCHIATRIC: Normal affect, calm and cooperative. 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
[2016-12-21] MEDS: DOCUSATE SODIUM 50 MG/SENNA 8.6 MG TAB PO SCH ×2 (09:00→20:35)
[2016-12-21] MEDS: SODIUM CHLORIDE 0.9% FLUSH 10 ML FLUSH IV FLUSH SCH ×2 (09:31→21:09)
[2016-12-21] MEDS: CLARITHROMYCIN 500 MG TAB PO SCH ×2 (09:32→21:08)
[2016-12-21] MEDS: RIFAMPIN 150 MG CAP PO SCH ×2 (09:32→20:35)
[2016-12-21] MEDS: SULFAMETHOXAZOLE-TRIMETHOPRIM DS 800-160 MG TAB PO SCH (09:33)
--- NOTE | 2016-12-21 10:04 | HHI.PR ---
Subjective Remarks Follow-up sepsis/recurrent fevers/noncompliance HIV/end-stage renal disease 12/17/16-patient seen and examined, continued to spike fevers and had HD today 12/18/16-patient seen and examined, he continues to spike fever with MAXIMUM TEMPERATURE 102 at 2300. Denies any chills or cough production. Not much of an appetite 12/19/16-patient seen and examined, still spiking fevers. Denies any other issues 12/20/16-patient seen and examined, maximal 101.3 at 8 AM, no chills or shortness of breath. Performed first round of gallium scan yesterday 12/21/16-patient seen and examined, Tmax 102.8 at 8 PM, no other issues. Not much of an appetite Objective Vitals Vital Signs Date Time Temp Pulse Resp B/P (MAP) Pulse Ox O2 Delivery O2 Flow Rate FiO2 12/21/16 08:00 98.7 99 14 129/77 (94) 100 12/21/16 04:00 97.7 77 16 114/71 (85) 100 12/21/16 00:00 98.3 74 16 95/58 (70) 99 12/20/16 20:24 110 12/20/16 20:00 Room Air 12/20/16 20:00 102.8 112 16 126/78 (94) 98 12/20/16 16:00 99.0 88 18 148/90 (109) 98 12/20/16 11:35 102 I/O 12/20/16 12/20/16 12/20/16 12/21/16 12/21/16 12/21/16 07:00 15:00 23:00 07:00 15:00 23:00 Intake Total 580 ml 100 ml 461.62 ml Output Total 150 ml 2000 ml 200 ml Balance 430 ml -1900 ml 461.62 ml -200 ml Intake Oral 580 ml 360 ml IV Total 100 ml 101.62 ml Output Urine Total 150 ml 200 ml Hemodialysis 2000 ml # Voids 1 # Bowel Movements 0 1 Objective Remarks GENERAL: NAD SKIN: Warm and dry. HEAD: Normocephalic. EYES: No scleral icterus. No injection or drainage. NECK: Supple, trachea midline. No JVD or lymphadenopathy. CARDIOVASCULAR: Regular rate and rhythm without murmurs, gallops, or rubs. RESPIRATORY: Breath sounds equal bilaterally. No accessory muscle use. GASTROINTESTINAL: Abdomen soft, non-tender, nondistended. MUSCULOSKELETAL: No cyanosis, or edema. BACK: Nontender without obvious deformity. No CVA tenderness. Procedures 11/14/16 hemodialysis catheter placement, right internal jugular 12/14 PD cath placement Side: Right A/P Problem List: (1) Renal failure ICD Code: N19 - Unspecified kidney failure Status: Acute (2) Sepsis ICD Code: A41.9 - Sepsis, unspecified organism Status: Acute (3) UTI (urinary tract infection) ICD Code: N39.0 - Urinary tract infection, site not specified (4) Chronic kidney disease, stage V ICD Code: N18.5 - Chronic kidney disease, stage 5 (5) HIV (human immunodeficiency virus infection) ICD Code: B20 - Human immunodeficiency virus [HIV] disease (6) Anemia ICD Code: D64.9 - Anemia, unspecified (7) Hypertension ICD Code: I10 - Essential (primary) hypertension (8) Medical non-compliance ICD Code: Z91.19 - Patient's noncompliance with other medical treatment and regimen Assessment and Plan 50-year-old man with Severe sepsis secondary to UTI, pneumonia-resolved AIDS-noncompliance - Status post treatment with Zosyn. Patient is immunocompromised, noncompliant with HAART for the last 2 months. - HSV positive. 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 Blood mycobacterial culture growing acid fast organism. Afebrile. - Continue Levaquin. Continue PCP prophylaxis. Fever, intermittent Management per infectious disease specialist Awaiting for gallium scan report Acute renal failure superimposed on chronic kidney disease stage V - Nephrology following, remains non-oliguric. - SPEP, serology negative. Creatinine improving some. - HD per nephrology. HIV/AIDS - CD4 count less than 20. Patient admitted to being noncompliant with HAART meds for the last 2 months. He has been counseled. 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 - Currently on IV Ganciclovir 12/04, end date 12/24/16 Oral thrush, improved: Treatment with Diflucan Anemia - Transfused packed red blood cell Continue to monitor H&H DVT prophylaxis: Heparin. Problem Qualifiers (1) Renal failure: (2) Sepsis: Pontey,Nelson MD Dec 21, 2016 10:04
[2016-12-21] MEDS: LACTOBACILLUS ACIDOPHILUS TAB PO SCH ×2 (11:15→20:35)
[2016-12-21] MEDS: ETHAMBUTOL HCL 400 MG TAB PO SCH (11:15)
--- NOTE | 2016-12-21 11:20 | RADRPT ---
EXAM DATE/TIME: 12/19/2016 13:19 [facility] COMPARISON: No previous studies available for comparison. INDICATIONS : Fever of unknown origin. DOSE: 6.1 mCi Gallium 67 Citrate IV PLANAR IMAGIN min, 3 hrs, 24 hrs, 48 hrs MEDICAL HISTORY : HIV. SURGICAL HISTORY : None. ENCOUNTER: Initial ACUITY: 2 months PAIN SCALE: 2/10 LOCATION: Wholebody. TECHNIQUE: Whole body imaging was performed at the specified times after intravenous administration of radiogal lium. FINDINGS: There is normal biodistribution of the radiotracer. No intense focal activity is seen to suggest a fo cus of infection. CONCLUSION: Negative for occult inflammatory process. Enzo Isbell MD FACR on December 21, 2016 at 11:18 Board Certified Radiologist. This report was verified electronically.
[2016-12-21 12:28] LABS: ANION GAP 9 MEQ/L (5-15); AST (GOT) 21 U/L (15-37); BLOOD UREA NITROGEN 21 MG/DL (7-18); CHLORIDE 98 MEQ/L (98-107); GLOMERULAR FILTRATION RATE 15 ML/MIN (>89); POTASSIUM 3.2 MEQ/L (3.5-5.1); SODIUM (NA) 135 MEQ/L (136-145)
[2016-12-21 12:32] LABS: ALKALINE PHOSPHATASE 60 U/L (45-117); ALT (GPT) LESS THAN 6 U/L (12-78); TOTAL BILIRUBIN ADULT 0.6 MG/DL (0.2-1.0)
[2016-12-21] MEDS: ACETAMINOPHEN 325 MG TAB PO PRN (12:44)
--- NOTE | 2016-12-21 16:37 | HHI.NPPN ---
Subjective History of Present Illness 50-year-old male with past medical history of HIV disease for more than 20 years and history of renal stone who came to the hospital with complaint of back pain. The patient has back pain going on for the last 2 months off and on and he came to the emergency department yesterday with worsening pain. Additional Remarks Patient is alert, still feeling weak and tired, no SOB. Review of Systems General Constitutional: Fatigue Cardiovascular Cardiac: MIRZA Objective Data Data Vital Signs Date Time Temp Pulse Resp B/P (MAP) Pulse Ox O2 Delivery O2 Flow Rate FiO2 12/21/16 12:00 Room Air 12/21/16 12:00 100.1 104 16 110/69 (83) 99 12/21/16 08:00 Room Air 12/21/16 08:00 98.7 99 14 129/77 (94) 100 12/21/16 07:58 99 12/21/16 04:00 97.7 77 16 114/71 (85) 100 12/21/16 00:00 98.3 74 16 95/58 (70) 99 12/20/16 20:24 110 12/20/16 20:00 Room Air 12/20/16 20:00 102.8 112 16 126/78 (94) 98 -: 12/21/16 1120 Physical Exam General Appearance: No Acute Distress, Comfortable Eyes Eye Exam: Pupils Equal Throat Throat Exam: Oral Mucosa [place] & Moist Pulmonary Resp Exam: Breath Sounds Equal, No Distress, Rhonchi, Decreased Bases Cardiology CV Exam: Regular, Normal Sinus Rhythm Gastrointestinal/Abdomen GI Exam: Soft, Non-Tender, Bowel Sounds Present Extremeties Extremities Exam: No Edema Neurologic Neuro Exam: Alert, Awake, Oriented Psychiatric Psych Exam: Appropriate Responses Assessment/Plan Assessment Summary: MIKE/Acute Renal Failure Problem List: (1) Renal failure ICD Codes: N19 - Unspecified kidney failure Status: Acute (2) Sepsis ICD Codes: A41.9 - Sepsis, unspecified organism Status: Acute (3) Open wound of scrotum ICD Codes: S31.30XA - Unspecified open wound of scrotum and testes, initial encounter Status: Acute Plan c/o blurry vision left eye Remain non oliguric. SPEP was negative. Complements normal, other serology also negative. BP is better, on Metoprolol to 50 mg BID. If renal function will not improve, will consider Renal Biopsy once infection is controlled. Fever pattern is better, ID is following. Now on Bactrim, Acyclovir, Clarithromycin and Ethambutol. No improvement in renal function. Possibly has End stage renal disease. Got PermCath. 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 No need to repeat the renal Biopsy as clinically he is showing no improvement, and the with advance HIV , the treatment options are limited, cannot be given immunosuppressive drugs. I discussed this in detail with patient. Now he change his mind and want to go for PD from ID stand point. He understand increase risk of infection due to advance HIV. Has PD catheter done. Also now on Ganciclovir, ID following. HD to continue 3 times a week. Problem Qualifiers (1) Renal failure: (2) Sepsis: Kwadwo Shah MD Dec 21, 2016 16:37
[2016-12-21] MEDS: ONDANSETRON HCL 4 MG/2 ML VIAL IVP PRN (21:25)
[2016-12-22] VITALS (8 sets, daily range): BP systolic 111–132; BP diastolic 65–83; PULSE 75–110; RESP 16–20; TEMP 98–102.2; O2SAT 98–100
[2016-12-22] MEDS: ACETAMINOPHEN 325 MG TAB PO PRN ×2 (01:59→13:42)
[2016-12-22] MEDS: EPOETIN ALFA 10,000 UNITS/ML VIAL IV PRN (09:52)
[2016-12-22] MEDS: GENTAMICIN SULFATE (DIALYSIS USE ONLY) 20 MG/2 ML VIAL IV PRN (09:52)
[2016-12-22] MEDS: HEPARIN SODIUM - IV 10,000 UNITS/10 ML VIAL PRN (09:53)
[2016-12-22] MEDS: SODIUM CHLOR 0.9% 1000 ML INJ 1,000 ML IV PRN (09:53)
--- NOTE | 2016-12-22 11:44 | HHI.PR ---
Subjective Remarks Follow-up sepsis/recurrent fevers/noncompliance HIV/end-stage renal disease 12/17/16-patient seen and examined, continued to spike fevers and had HD today 12/18/16-patient seen and examined, he continues to spike fever with MAXIMUM TEMPERATURE 102 at 2300. Denies any chills or cough production. Not much of an appetite 12/19/16-patient seen and examined, still spiking fevers. Denies any other issues 12/20/16-patient seen and examined, maximal 101.3 at 8 AM, no chills or shortness of breath. Performed first round of gallium scan yesterday 12/21/16-patient seen and examined, Tmax 102.8 at 8 PM, no other issues. Not much of an appetite 12/22/16-patient in dialysis, no acute event overnight. MAXIMUM TEMPERATURE 100.5 at midnight Objective Vitals Vital Signs Date Time Temp Pulse Resp B/P (MAP) Pulse Ox O2 Delivery O2 Flow Rate FiO2 12/22/16 08:51 98.0 77 16 112/65 (81) 100 12/22/16 08:07 75 12/22/16 08:00 Room Air 12/22/16 04:00 98.4 82 20 114/73 (87) 100 12/22/16 00:00 100.5 110 20 114/70 (85) 99 12/21/16 20:00 98.2 93 20 138/87 (104) 99 12/21/16 20:00 92 12/21/16 20:00 Room Air 12/21/16 16:00 Room Air 12/21/16 16:00 98.5 90 16 99/59 (72) 100 12/21/16 12:00 Room Air 12/21/16 12:00 100.1 104 16 110/69 (83) 99 I/O 12/21/16 12/21/16 12/21/16 12/22/16 12/22/16 12/22/16 07:00 15:00 23:00 07:00 15:00 23:00 Intake Total 480 ml 220 ml Output Total 200 ml 200 ml Balance -200 ml 480 ml 20 ml Intake Oral 480 ml 220 ml Output Urine Total 200 ml 200 ml # Voids 1 # Bowel Movements 0 1 Result Diagram: 12/21/16 1120 Objective Remarks GENERAL: NAD SKIN: Warm and dry. HEAD: Normocephalic. EYES: No scleral icterus. No injection or drainage. NECK: Supple, trachea midline. No JVD or lymphadenopathy. CARDIOVASCULAR: Regular rate and rhythm without murmurs, gallops, or rubs. RESPIRATORY: Breath sounds equal bilaterally. No accessory muscle use. GASTROINTESTINAL: Abdomen soft, non-tender, nondistended. MUSCULOSKELETAL: No cyanosis, or edema. BACK: Nontender without obvious deformity. No CVA tenderness. Procedures 11/14/16 hemodialysis catheter placement, right internal jugular 12/14 PD cath placement Side: Right A/P Problem List: (1) Renal failure ICD Code: N19 - Unspecified kidney failure Status: Acute (2) Sepsis ICD Code: A41.9 - Sepsis, unspecified organism Status: Acute (3) UTI (urinary tract infection) ICD Code: N39.0 - Urinary tract infection, site not specified (4) Chronic kidney disease, stage V ICD Code: N18.5 - Chronic kidney disease, stage 5 (5) HIV (human immunodeficiency virus infection) ICD Code: B20 - Human immunodeficiency virus [HIV] disease (6) Anemia ICD Code: D64.9 - Anemia, unspecified (7) Hypertension ICD Code: I10 - Essential (primary) hypertension (8) Medical non-compliance ICD Code: Z91.19 - Patient's noncompliance with other medical treatment and regimen Assessment and Plan 50-year-old man with Severe sepsis secondary to UTI, pneumonia-resolved AIDS-noncompliance - Status post treatment with Zosyn. Patient is immunocompromised, noncompliant with HAART for the last 2 months. - HSV positive. 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 Blood mycobacterial culture growing acid fast organism. Afebrile. - Continue Levaquin. Continue PCP prophylaxis. Fever, intermittent Management per infectious disease specialist Awaiting for gallium scan report Acute renal failure superimposed on chronic kidney disease stage V - Nephrology following, remains non-oliguric. - HD per nephrology. HIV/AIDS - CD4 count less than 20. Patient admitted to being noncompliant with HAART meds for the last 2 months. He has been counseled. 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 - Currently on IV Ganciclovir 12/04, end date 12/24/16 Oral thrush, improved: Treatment with Diflucan Anemia - Transfused packed red blood cell Continue to monitor H&H DVT prophylaxis: Heparin. Problem Qualifiers (1) Renal failure: (2) Sepsis: Nelson Michelle MD Dec 22, 2016 11:44
[2016-12-22] MEDS: LACTOBACILLUS ACIDOPHILUS TAB PO SCH ×2 (12:20→21:00)
[2016-12-22] MEDS: ETHAMBUTOL HCL 400 MG TAB PO SCH (12:20)
[2016-12-22] MEDS: CLARITHROMYCIN 500 MG TAB PO SCH ×2 (12:20→21:13)
[2016-12-22] MEDS: RIFAMPIN 150 MG CAP PO SCH ×2 (12:21→21:13)
[2016-12-22] MEDS: DOCUSATE SODIUM 50 MG/SENNA 8.6 MG TAB PO SCH ×2 (12:21→21:00)
[2016-12-22] MEDS: SODIUM CHLORIDE 0.9% FLUSH 10 ML FLUSH IV FLUSH SCH ×2 (12:21→21:13)
[2016-12-22] MEDS: SODIUM CHLORIDE 0.9% IV SCH (13:49)
[2016-12-22] MEDS: GANCICLOVIR IV SCH (13:49)
--- NOTE | 2016-12-22 14:13 | HHI.IDPN ---
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 Vital Signs Date Time Temp Pulse Resp B/P (MAP) Pulse Ox O2 Delivery O2 Flow Rate FiO2 12/22/16 13:50 101.5 12/22/16 13:31 102.2 108 16 132/83 (99) 98 12/22/16 08:51 98.0 77 16 112/65 (81) 100 12/22/16 08:07 75 12/22/16 08:00 Room Air 12/22/16 04:00 98.4 82 20 114/73 (87) 100 12/22/16 00:00 100.5 110 20 114/70 (85) 99 12/21/16 20:00 98.2 93 20 138/87 (104) 99 12/21/16 20:00 92 12/21/16 20:00 Room Air 12/21/16 16:00 Room Air 12/21/16 16:00 98.5 90 16 99/59 (72) 100 12/22/16 12/22/16 12/23/16 15:00 23:00 07:00 Output Total 2000 ml Balance -2000 ml Hemodialysis 2000 ml . Laboratory Tests Test 12/21/16 11:20 Blood Urea Nitrogen 21 MG/DL Creatinine 5.02 MG/DL Random Glucose 84 MG/DL Total Protein 6.7 GM/DL Albumin 2.6 GM/DL Calcium Level 8.5 MG/DL Alkaline Phosphatase 60 U/L Aspartate Amino Transf (AST/SGOT) 21 U/L Alanine Aminotransferase (ALT/SGPT) LESS THAN 6 U/L Total Bilirubin 0.6 MG/DL Sodium Level 135 MEQ/L Potassium Level 3.2 MEQ/L Chloride Level 98 MEQ/L Carbon Dioxide Level 28.0 MEQ/L Anion Gap 9 MEQ/L Estimat Glomerular Filtration Rate 15 ML/MIN Imaging Last Impressions Renal Biopsy CT 12/01/16 0600 Signed Impressions: Service Date/Time: November 14:17 - CONCLUSION: Uncomplicated CT guided biopsy. Alexis Adhikari MD Central Venous Line 11/29/16 0000 Signed Impressions: Service Date/Time: Tuesday, November 29, 2016 00:00 - CONCLUSION: Uncomplicated catheter removal. Solitario Diaz MD Catheter Placement X-Ray 11/29/16 0000 Signed Impressions: Service Date/Time: Tuesday, November 29, 2016 13:58 - CONCLUSION: Uncomplicated PermaCath placement as above. Solitario Diaz MD Tumor Localization 11/14/16 0000 Signed Impressions: Service Date/Time: Monday, November 14, 2016 11:38 - CONCLUSION: Negative scan Solitario Diaz MD Chest X-Ray 11/13/16 0000 Signed Impressions: Service Date/Time: Sunday, November 13, 2016 16:02 - CONCLUSION: No acute cardiopulmonary disease. Quincy Medellin MD Renal Ultrasound 11/05/16 0000 Signed Impressions: Service Date/Time: Saturday, November 05, 2016 19:17 - CONCLUSION: Diffusely echogenic kidneys indicating medical renal disease. Dorian Murry MD Abdomen/Pelvis CT 11/05/16 0000 Signed Impressions: Service Date/Time: Saturday, November 05, 2016 17:19 - CONCLUSION: 1. 4 mm calculus in the right renal pelvis/ureteropelvic junction with mild adjacent perinephric/periureteral stranding. No evidence of hydronephrosis. 2. 1 cm round hypodensity in the anterior right mid kidney statistically most likely to represent a cyst. 3. 3.7 cm hypodensity in the right lobe of the liver air the dome of the diaphragm. This finding is nonspecific on noncontrast CT. The most likely etiologies include hemangioma and cyst. It could be further evaluated with ultrasound nonemergent followup MRI of the abdomen. 4. Mild dilated proximal right common iliac artery. Dorian Murry MD Physical Exam GENERAL: awake and alert, not in respiratory distress. SKIN: Warm and dry. HEAD: Atraumatic. Normocephalic. No temporal wasting, or tenderness. EYES: [place] conjunctiva. No petechia or hemorrhage. No scleral icterus. No injection or drainage. EARS, NOSE AND THROAT: Nose without bleeding or purulent nasal discharge. Mucous membranes pink and moist. White coating on tongue NECK: Trachea midline. Supple and not tender, no meningeal signs CARDIOVASCULAR: Regular rate and rhythm. No murmurs, rubs or gallops heard RESPIRATORY: Clear to auscultation. Breath sounds equal bilaterally. No rales , wheezing or rhonchi ABDOMEN: Soft, mild tenderness, not distended, dry dressing over cath. Bowel sounds present and normoactive. No guarding. No rebound. No organomegaly. Has [place] brown non tender nodule on R lateral groin (chronic been there for years, not getting bigger) EXTREMITIES: No clubbing, cyanosis, or edema.No joint effusion, has good ROM. No calf tenderness. Well perfused and warm. NEUROLOGICAL: Awake alert Non-focal PSYCHIATRIC: Normal affect, calm and cooperative. 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
--- NOTE | 2016-12-22 18:48 | HHI.NPPN ---
Subjective History of Present Illness 50-year-old male with past medical history of HIV disease for more than 20 years and history of renal stone who came to the hospital with complaint of back pain. The patient has back pain going on for the last 2 months off and on and he came to the emergency department yesterday with worsening pain. Additional Remarks Patient is alert, seen after HD, no SOB, still spiking fever. Review of Systems General Constitutional: Fatigue Cardiovascular Cardiac: MIRZA Objective Data Data 12/22/16 12/23/16 19:00 07:00 Intake Total 480 ml Output Total 2200 ml Balance -1720 ml Intake Oral 480 ml Output Urine Total 200 ml Hemodialysis 2000 ml # Bowel Movements 0 Vital Signs Date Time Temp Pulse Resp B/P (MAP) Pulse Ox O2 Delivery O2 Flow Rate FiO2 12/22/16 16:00 98.9 94 18 111/68 (82) 99 12/22/16 13:50 101.5 12/22/16 13:31 102.2 108 16 132/83 (99) 98 12/22/16 12:00 Room Air 12/22/16 08:51 98.0 77 16 112/65 (81) 100 12/22/16 08:07 75 12/22/16 08:00 Room Air 12/22/16 04:00 98.4 82 20 114/73 (87) 100 12/22/16 00:00 100.5 110 20 114/70 (85) 99 12/21/16 20:00 98.2 93 20 138/87 (104) 99 12/21/16 20:00 92 12/21/16 20:00 Room Air -: 12/21/16 1120 Physical Exam General Appearance: No Acute Distress, Comfortable Eyes Eye Exam: Pupils Equal Throat Throat Exam: Oral Mucosa [place] & Moist Pulmonary Resp Exam: Breath Sounds Equal, No Distress, Rhonchi, Decreased Bases Cardiology CV Exam: Regular, Normal Sinus Rhythm Gastrointestinal/Abdomen GI Exam: Soft, Non-Tender, Bowel Sounds Present Extremeties Extremities Exam: No Edema Neurologic Neuro Exam: Alert, Awake, Oriented Psychiatric Psych Exam: Appropriate Responses Assessment/Plan Assessment Summary: MIKE/Acute Renal Failure Problem List: (1) Renal failure ICD Codes: N19 - Unspecified kidney failure Status: Acute (2) Sepsis ICD Codes: A41.9 - Sepsis, unspecified organism Status: Acute (3) Open wound of scrotum ICD Codes: S31.30XA - Unspecified open wound of scrotum and testes, initial encounter Status: Acute Plan c/o blurry vision left eye Remain non oliguric. SPEP was negative. Complements normal, other serology also negative. BP is better, on Metoprolol to 50 mg BID. If renal function will not improve, will consider Renal Biopsy once infection is controlled. Fever pattern is better, ID is following. Now on Bactrim, Acyclovir, Clarithromycin and Ethambutol. No improvement in renal function. Possibly has End stage renal disease. Got PermCath. 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 No need to repeat the renal Biopsy as clinically he is showing no improvement, and the with advance HIV , the treatment options are limited, cannot be given immunosuppressive drugs. I discussed this in detail with patient. Now he change his mind and want to go for PD from ID stand point. He understand increase risk of infection due to advance HIV. Has PD catheter done. Also now on Ganciclovir, ID following. Gallium scan is negative. HD done in AM. Problem Qualifiers (1) Renal failure: (2) Sepsis: Kwadwo Shah MD Dec 22, 2016 18:48
[2016-12-22] MEDS: ONDANSETRON HCL 4 MG/2 ML VIAL IVP PRN (21:14)
[2016-12-23] VITALS (7 sets, daily range): BP systolic 104–132; BP diastolic 60–87; PULSE 87–116; RESP 18–22; TEMP 98.8–102.9; O2SAT 99–100
[2016-12-23] MEDS: ACETAMINOPHEN 325 MG TAB PO PRN ×2 (00:06→18:02)
--- NOTE | 2016-12-23 10:10 | HHI.PR ---
Subjective Remarks Follow-up sepsis/recurrent fevers/noncompliance HIV/end-stage renal disease 12/17/16-patient seen and examined, continued to spike fevers and had HD today 12/18/16-patient seen and examined, he continues to spike fever with MAXIMUM TEMPERATURE 102 at 2300. Denies any chills or cough production. Not much of an appetite 12/19/16-patient seen and examined, still spiking fevers. Denies any other issues 12/20/16-patient seen and examined, maximal 101.3 at 8 AM, no chills or shortness of breath. Performed first round of gallium scan yesterday 12/21/16-patient seen and examined, Tmax 102.8 at 8 PM, no other issues. Not much of an appetite 12/22/16-patient in dialysis, no acute event overnight. MAXIMUM TEMPERATURE 100.5 at midnight 12/23/16-Tmax 102.8 at midnight however currently afebrile. Bactrim has been discontinued. No other issues. Objective Vitals Vital Signs Date Time Temp Pulse Resp B/P (MAP) Pulse Ox O2 Delivery O2 Flow Rate FiO2 12/23/16 08:00 99.5 94 18 132/87 (102) 100 12/23/16 04:00 98.8 87 20 104/65 (78) 99 12/23/16 00:00 102.8 116 22 122/72 (89) 99 12/22/16 20:00 Room Air 12/22/16 20:00 96 12/22/16 20:00 99.1 100 18 112/70 (84) 100 12/22/16 16:00 98.9 94 18 111/68 (82) 99 12/22/16 13:50 101.5 12/22/16 13:31 102.2 108 16 132/83 (99) 98 12/22/16 12:00 Room Air I/O 12/22/16 12/22/16 12/22/16 12/23/16 12/23/16 12/23/16 07:00 15:00 23:00 07:00 15:00 23:00 Intake Total 220 ml 480 ml 480 ml Output Total 200 ml 2000 ml 200 ml 150 ml Balance 20 ml -2000 ml 280 ml 330 ml Intake Oral 220 ml 480 ml 480 ml Output Urine Total 200 ml 200 ml 150 ml Hemodialysis 2000 ml # Voids 2 # Bowel Movements 1 0 Result Diagram: 12/21/16 1120 Objective Remarks GENERAL: NAD SKIN: Warm and dry. HEAD: Normocephalic. EYES: No scleral icterus. No injection or drainage. NECK: Supple, trachea midline. No JVD or lymphadenopathy. CARDIOVASCULAR: Regular rate and rhythm without murmurs, gallops, or rubs. RESPIRATORY: Breath sounds equal bilaterally. No accessory muscle use. GASTROINTESTINAL: Abdomen soft, non-tender, nondistended. MUSCULOSKELETAL: No cyanosis, or edema. BACK: Nontender without obvious deformity. No CVA tenderness. Procedures 11/14/16 hemodialysis catheter placement, right internal jugular 12/14 PD cath placement Side: Right A/P Problem List: (1) Renal failure ICD Code: N19 - Unspecified kidney failure Status: Acute (2) Sepsis ICD Code: A41.9 - Sepsis, unspecified organism Status: Acute (3) UTI (urinary tract infection) ICD Code: N39.0 - Urinary tract infection, site not specified (4) Chronic kidney disease, stage V ICD Code: N18.5 - Chronic kidney disease, stage 5 (5) HIV (human immunodeficiency virus infection) ICD Code: B20 - Human immunodeficiency virus [HIV] disease (6) Anemia ICD Code: D64.9 - Anemia, unspecified (7) Hypertension ICD Code: I10 - Essential (primary) hypertension (8) Medical non-compliance ICD Code: Z91.19 - Patient's noncompliance with other medical treatment and regimen Assessment and Plan 50-year-old man with Severe sepsis secondary to UTI, pneumonia-resolved AIDS-noncompliance - Status post treatment with Zosyn. Patient is immunocompromised, noncompliant with HAART for the last 2 months. - HSV positive. 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 Blood mycobacterial culture growing acid fast organism. Afebrile. - Continue Levaquin. Continue PCP prophylaxis. Fever, intermittent Management per infectious disease specialist Awaiting for gallium scan report Secondary to drug reaction? Bactrim discontinued 12/22/16 Acute renal failure superimposed on chronic kidney disease stage V - Nephrology following, remains non-oliguric. - HD per nephrology. HIV/AIDS - CD4 count less than 20. Patient admitted to being noncompliant with HAART meds for the last 2 months. He has been counseled. 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 - Currently on IV Ganciclovir 12/04, end date 12/24/16 Oral thrush, improved: Treatment with Diflucan Anemia - Transfused packed red blood cell Continue to monitor H&H DVT prophylaxis: Heparin. Problem Qualifiers (1) Renal failure: (2) Sepsis: Nelson Michelle MD Dec 23, 2016 10:10
[2016-12-23] MEDS: CLARITHROMYCIN 500 MG TAB PO SCH ×2 (11:09→21:52)
[2016-12-23] MEDS: ETHAMBUTOL HCL 400 MG TAB PO SCH (11:10)
[2016-12-23] MEDS: LACTOBACILLUS ACIDOPHILUS TAB PO SCH ×2 (11:10→21:52)
[2016-12-23] MEDS: RIFAMPIN 150 MG CAP PO SCH ×2 (11:10→21:52)
--- NOTE | 2016-12-23 15:50 | HHI.NPPN ---
Subjective History of Present Illness 50-year-old male with past medical history of HIV disease for more than 20 years and history of renal stone who came to the hospital with complaint of back pain. The patient has back pain going on for the last 2 months off and on and he came to the emergency department yesterday with worsening pain. Additional Remarks Patient is alert, no SOB, still spiking fever almost daily, not in distress. Review of Systems General Constitutional: Fatigue Cardiovascular Cardiac: MIRZA Objective Data Data Vital Signs Date Time Temp Pulse Resp B/P (MAP) Pulse Ox O2 Delivery O2 Flow Rate FiO2 12/23/16 12:00 100.0 106 18 105/60 (75) 100 12/23/16 08:00 99.5 94 18 132/87 (102) 100 12/23/16 04:00 98.8 87 20 104/65 (78) 99 12/23/16 00:00 102.8 116 22 122/72 (89) 99 12/22/16 20:00 Room Air 12/22/16 20:00 96 12/22/16 20:00 99.1 100 18 112/70 (84) 100 12/22/16 16:00 98.9 94 18 111/68 (82) 99 -: 12/21/16 1120 Physical Exam General Appearance: No Acute Distress, Comfortable Eyes Eye Exam: Pupils Equal Throat Throat Exam: Oral Mucosa [place] & Moist Pulmonary Resp Exam: Breath Sounds Equal, No Distress, Rhonchi, Decreased Bases Cardiology CV Exam: Regular, Normal Sinus Rhythm Gastrointestinal/Abdomen GI Exam: Soft, Non-Tender, Bowel Sounds Present Extremeties Extremities Exam: No Edema Neurologic Neuro Exam: Alert, Awake, Oriented Psychiatric Psych Exam: Appropriate Responses Assessment/Plan Assessment Summary: MIKE/Acute Renal Failure Problem List: (1) Renal failure ICD Codes: N19 - Unspecified kidney failure Status: Acute (2) Sepsis ICD Codes: A41.9 - Sepsis, unspecified organism Status: Acute (3) Open wound of scrotum ICD Codes: S31.30XA - Unspecified open wound of scrotum and testes, initial encounter Status: Acute Plan c/o blurry vision left eye Remain non oliguric. SPEP was negative. Complements normal, other serology also negative. BP is better, on Metoprolol to 50 mg BID. If renal function will not improve, will consider Renal Biopsy once infection is controlled. Fever pattern is better, ID is following. Now on Bactrim, Acyclovir, Clarithromycin and Ethambutol. No improvement in renal function. Possibly has End stage renal disease. Got PermCath. 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 No need to repeat the renal Biopsy as clinically he is showing no improvement, and the with advance HIV , the treatment options are limited, cannot be given immunosuppressive drugs. I discussed this in detail with patient. Now he change his mind and want to go for PD from ID stand point. He understand increase risk of infection due to advance HIV. Has PD catheter done. Also now on Ganciclovir, ID following. Gallium scan is negative. HD to continue TTS. On Epogen , follow Hgb. Transfuse as needed. Problem Qualifiers (1) Renal failure: (2) Sepsis: Kwadwo Shah MD Dec 23, 2016 15:50
[2016-12-23] MEDS: DOCUSATE SODIUM 50 MG/SENNA 8.6 MG TAB PO SCH (21:00)
[2016-12-23] MEDS: SODIUM CHLORIDE 0.9% FLUSH 10 ML FLUSH IV FLUSH SCH (21:52)
[2016-12-24] VITALS (7 sets, daily range): BP systolic 96–143; BP diastolic 60–89; PULSE 82–103; RESP 18–20; TEMP 98.1–102.6; O2SAT 97–100
[2016-12-24] MEDS: ACETAMINOPHEN 325 MG TAB PO PRN ×3 (05:27→22:28)
[2016-12-24] MEDS: SODIUM CHLORIDE 0.9% FLUSH 10 ML FLUSH IV FLUSH SCH ×2 (09:00→20:32)
[2016-12-24] MEDS: DOCUSATE SODIUM 50 MG/SENNA 8.6 MG TAB PO SCH ×2 (09:00→20:33)
--- NOTE | 2016-12-24 09:23 | HHI.PR ---
Subjective Remarks Follow-up sepsis/recurrent fevers/noncompliance HIV/end-stage renal disease 12/17/16-patient seen and examined, continued to spike fevers and had HD today 12/18/16-patient seen and examined, he continues to spike fever with MAXIMUM TEMPERATURE 102 at 2300. Denies any chills or cough production. Not much of an appetite 12/19/16-patient seen and examined, still spiking fevers. Denies any other issues 12/20/16-patient seen and examined, maximal 101.3 at 8 AM, no chills or shortness of breath. Performed first round of gallium scan yesterday 12/21/16-patient seen and examined, Tmax 102.8 at 8 PM, no other issues. Not much of an appetite 12/22/16-patient in dialysis, no acute event overnight. MAXIMUM TEMPERATURE 100.5 at midnight 12/23/16-Tmax 102.8 at midnight however currently afebrile. Bactrim has been discontinued. No other issues. 12/24/16-patient spiking fevers, to dialysis center for HD today. Patient had one episode of emesis this morning and complains of nausea Objective Vitals Vital Signs Date Time Temp Pulse Resp B/P (MAP) Pulse Ox O2 Delivery O2 Flow Rate FiO2 12/24/16 04:00 Room Air 12/24/16 04:00 102.2 97 20 143/89 (107) 97 12/24/16 00:00 Room Air 12/24/16 00:00 98.7 82 20 115/74 (88) 99 12/23/16 20:00 99.2 94 20 114/68 (83) 100 12/23/16 20:00 Room Air 12/23/16 20:00 90 12/23/16 16:29 96 12/23/16 16:00 102.9 112 18 116/72 (87) 100 12/23/16 12:00 100.0 106 18 105/60 (75) 100 I/O 12/23/16 12/23/16 12/23/16 12/24/16 12/24/16 12/24/16 07:00 15:00 23:00 07:00 15:00 23:00 Intake Total 480 ml 360 ml 240 ml Output Total 150 ml 400 ml Balance 330 ml -40 ml 240 ml Intake Oral 480 ml 360 ml 240 ml Output Urine Total 150 ml 400 ml # Voids 2 0 # Bowel Movements 0 2 Result Diagram: 12/21/16 1120 Objective Remarks GENERAL: NAD SKIN: Warm and dry. HEAD: Normocephalic. EYES: No scleral icterus. No injection or drainage. NECK: Supple, trachea midline. No JVD or lymphadenopathy. CARDIOVASCULAR: Regular rate and rhythm without murmurs, gallops, or rubs. RESPIRATORY: Breath sounds equal bilaterally. No accessory muscle use. GASTROINTESTINAL: Abdomen soft, non-tender, nondistended. MUSCULOSKELETAL: No cyanosis, or edema. BACK: Nontender without obvious deformity. No CVA tenderness. Procedures 11/14/16 hemodialysis catheter placement, right internal jugular 12/14 PD cath placement Side: Right A/P Problem List: (1) Renal failure ICD Code: N19 - Unspecified kidney failure Status: Acute (2) Sepsis ICD Code: A41.9 - Sepsis, unspecified organism Status: Acute (3) UTI (urinary tract infection) ICD Code: N39.0 - Urinary tract infection, site not specified (4) Chronic kidney disease, stage V ICD Code: N18.5 - Chronic kidney disease, stage 5 (5) HIV (human immunodeficiency virus infection) ICD Code: B20 - Human immunodeficiency virus [HIV] disease (6) Anemia ICD Code: D64.9 - Anemia, unspecified (7) Hypertension ICD Code: I10 - Essential (primary) hypertension (8) Medical non-compliance ICD Code: Z91.19 - Patient's noncompliance with other medical treatment and regimen Assessment and Plan 50-year-old man with Severe sepsis secondary to UTI, pneumonia-resolved AIDS-noncompliance - Status post treatment with Zosyn. Patient is immunocompromised, noncompliant with HAART for the last 2 months. - HSV positive. 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 Blood mycobacterial culture growing acid fast organism. Afebrile. - Continue Levaquin. Continue PCP prophylaxis. Fever, intermittent Management per infectious disease specialist s/p gallium scan report Secondary to drug reaction? Bactrim discontinued 12/22/16 Acute renal failure superimposed on chronic kidney disease stage V - Nephrology following, remains non-oliguric. - HD per nephrology. HIV/AIDS - CD4 count less than 20. Patient admitted to being noncompliant with HAART meds for the last 2 months. He has been counseled. 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 - Currently on IV Ganciclovir 12/04, end date 12/24/16 Oral thrush, improved: Treatment with Diflucan Anemia - Transfused packed red blood cell Continue to monitor H&H DVT prophylaxis: Heparin. Problem Qualifiers (1) Renal failure: (2) Sepsis: Nelson Michelle MD Dec 24, 2016 09:23
[2016-12-24] MEDS ORDERED: INFLUENZA VIRUS VACCINE (QUADRIVALENT) 0.5 ML SYR IM ONE (10:00)
--- NOTE | 2016-12-24 10:24 | HHI.NPPN ---
Subjective History of Present Illness 50-year-old male with past medical history of HIV disease for more than 20 years and history of renal stone who came to the hospital with complaint of back pain. The patient has back pain going on for the last 2 months off and on and he came to the emergency department yesterday with worsening pain. Additional Remarks Patient seen on HD, tolerating HD well. Review of Systems General Constitutional: Fatigue Cardiovascular Cardiac: MIRZA Objective Data Data Vital Signs Date Time Temp Pulse Resp B/P (MAP) Pulse Ox O2 Delivery O2 Flow Rate FiO2 12/24/16 04:00 Room Air 12/24/16 04:00 102.2 97 20 143/89 (107) 97 12/24/16 00:00 Room Air 12/24/16 00:00 98.7 82 20 115/74 (88) 99 12/23/16 20:00 99.2 94 20 114/68 (83) 100 12/23/16 20:00 Room Air 12/23/16 20:00 90 12/23/16 16:29 96 12/23/16 16:00 102.9 112 18 116/72 (87) 100 12/23/16 12:00 100.0 106 18 105/60 (75) 100 -: 12/21/16 1120 Physical Exam General Appearance: No Acute Distress, Comfortable Eyes Eye Exam: Pupils Equal Throat Throat Exam: Oral Mucosa [place] & Moist Pulmonary Resp Exam: Breath Sounds Equal, No Distress, Rhonchi, Decreased Bases Cardiology CV Exam: Regular, Normal Sinus Rhythm Gastrointestinal/Abdomen GI Exam: Soft, Non-Tender, Bowel Sounds Present Extremeties Extremities Exam: No Edema Neurologic Neuro Exam: Alert, Awake, Oriented Psychiatric Psych Exam: Appropriate Responses Assessment/Plan Assessment Summary: MIKE/Acute Renal Failure Problem List: (1) Renal failure ICD Codes: N19 - Unspecified kidney failure Status: Acute (2) Sepsis ICD Codes: A41.9 - Sepsis, unspecified organism Status: Acute (3) Open wound of scrotum ICD Codes: S31.30XA - Unspecified open wound of scrotum and testes, initial encounter Status: Acute Plan c/o blurry vision left eye Remain non oliguric. SPEP was negative. Complements normal, other serology also negative. BP is better, on Metoprolol to 50 mg BID. If renal function will not improve, will consider Renal Biopsy once infection is controlled Now on Bactrim, Acyclovir, Clarithromycin and Ethambutol. No improvement in renal function. Possibly has End stage renal disease. Got PermCath. 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 No need to repeat the renal Biopsy as clinically he is showing no improvement, and the with advance HIV , the treatment options are limited, cannot be given immunosuppressive drugs. Now he change his mind and want to go for PD from ID stand point. He understand increase risk of infection due to advance HIV. Has PD catheter done. Also now on Ganciclovir, ID following. Gallium scan is negative. Ongoing fevers today (Temp 102), continue with HD for now. Seen on HD today, tolerating HD well. Continue TTS HD. Problem Qualifiers (1) Renal failure: (2) Sepsis: Deric Tello MD Dec 24, 2016 10:24
[2016-12-24] MEDS: CLARITHROMYCIN 500 MG TAB PO SCH ×3 (12:00→20:44)
[2016-12-24] MEDS: ETHAMBUTOL HCL 400 MG TAB PO SCH ×2 (12:00→12:18)
[2016-12-24] MEDS: RIFAMPIN 150 MG CAP PO SCH ×3 (12:00→20:32)
[2016-12-24] MEDS: LACTOBACILLUS ACIDOPHILUS TAB PO SCH ×3 (12:00→20:31)
--- NOTE | 2016-12-24 13:55 | HHI.IDPN ---
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 Vital Signs Date Time Temp Pulse Resp B/P (MAP) Pulse Ox O2 Delivery O2 Flow Rate FiO2 12/24/16 12:00 99.0 97 20 135/85 (102) 100 12/24/16 08:00 97 Room Air 12/24/16 04:00 Room Air 12/24/16 04:00 102.2 97 20 143/89 (107) 97 12/24/16 00:00 Room Air 12/24/16 00:00 98.7 82 20 115/74 (88) 99 12/23/16 20:00 99.2 94 20 114/68 (83) 100 12/23/16 20:00 Room Air 12/23/16 20:00 90 12/23/16 16:29 96 12/23/16 16:00 102.9 112 18 116/72 (87) 100 12/24/16 12/24/16 12/25/16 15:00 23:00 07:00 Output Total 2000 ml Balance -2000 ml Hemodialysis 2000 ml Imaging Last Impressions Renal Biopsy CT 12/01/16 0600 Signed Impressions: Service Date/Time: November 14:17 - CONCLUSION: Uncomplicated CT guided biopsy. Alexis Adhikari MD Central Venous Line 11/29/16 0000 Signed Impressions: Service Date/Time: Tuesday, November 29, 2016 00:00 - CONCLUSION: Uncomplicated catheter removal. Solitario Diaz MD Catheter Placement X-Ray 11/29/16 0000 Signed Impressions: Service Date/Time: Tuesday, November 29, 2016 13:58 - CONCLUSION: Uncomplicated PermaCath placement as above. Solitario Diaz MD Tumor Localization 11/14/16 0000 Signed Impressions: Service Date/Time: Monday, November 14, 2016 11:38 - CONCLUSION: Negative scan Solitario Diaz MD Chest X-Ray 11/13/16 0000 Signed Impressions: Service Date/Time: Sunday, November 13, 2016 16:02 - CONCLUSION: No acute cardiopulmonary disease. Quincy Medellin MD Renal Ultrasound 11/05/16 0000 Signed Impressions: Service Date/Time: Saturday, November 05, 2016 19:17 - CONCLUSION: Diffusely echogenic kidneys indicating medical renal disease. Dorian Murry MD Abdomen/Pelvis CT 11/05/16 0000 Signed Impressions: Service Date/Time: Saturday, November 05, 2016 17:19 - CONCLUSION: 1. 4 mm calculus in the right renal pelvis/ureteropelvic junction with mild adjacent perinephric/periureteral stranding. No evidence of hydronephrosis. 2. 1 cm round hypodensity in the anterior right mid kidney statistically most likely to represent a cyst. 3. 3.7 cm hypodensity in the right lobe of the liver air the dome of the diaphragm. This finding is nonspecific on noncontrast CT. The most likely etiologies include hemangioma and cyst. It could be further evaluated with ultrasound nonemergent followup MRI of the abdomen. 4. Mild dilated proximal right common iliac artery. Dorian Murry MD Physical Exam GENERAL: awake and alert, not in respiratory distress. SKIN: Warm and dry. HEAD: Atraumatic. Normocephalic. No temporal wasting, or tenderness. EYES: [place] conjunctiva. No petechia or hemorrhage. No scleral icterus. No injection or drainage. EARS, NOSE AND THROAT: Nose without bleeding or purulent nasal discharge. Mucous membranes pink and moist. White coating on tongue NECK: Trachea midline. Supple and not tender, no meningeal signs CARDIOVASCULAR: Regular rate and rhythm. No murmurs, rubs or gallops heard RESPIRATORY: Clear to auscultation. Breath sounds equal bilaterally. No rales , wheezing or rhonchi ABDOMEN: Soft, mild tenderness, not distended, dry dressing over cath. Bowel sounds present and normoactive. No guarding. No rebound. No organomegaly. Has oblong brown non tender nodule on R lateral groin (chronic been there for years, not getting bigger) EXTREMITIES: No clubbing, cyanosis, or edema.No joint effusion, has good ROM. No calf tenderness. Well perfused and warm. NEUROLOGICAL: Awake alert Non-focal PSYCHIATRIC: Normal affect, calm and cooperative. 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
[2016-12-24] MEDS: SODIUM CHLORIDE 0.9% IV SCH (15:58)
[2016-12-24] MEDS: GANCICLOVIR IV SCH (15:58)
[2016-12-25] VITALS: BP 110/59; PULSE 114; RESP 20; TEMP 102.5; O2SAT 98
[2016-12-25] MEDS ORDERED: NAPROXEN 500 MG TAB PO ONE (01:15)
[2016-12-25 04:00] VITALS: BP 97/63; PULSE 89; RESP 20; TEMP 97.7; O2SAT 100
[2016-12-25 08:00] VITALS: BP 126/76; PULSE 68; PULSE 76; RESP 18; TEMP 97.4; O2SAT 100
[2016-12-25] MEDS: SODIUM CHLORIDE 0.9% FLUSH 10 ML FLUSH IV FLUSH SCH ×2 (09:00→21:00)
[2016-12-25] MEDS: RIFAMPIN 150 MG CAP PO SCH ×2 (09:00→21:08)
[2016-12-25] MEDS: DOCUSATE SODIUM 50 MG/SENNA 8.6 MG TAB PO SCH ×2 (09:35→21:00)
[2016-12-25] MEDS: ETHAMBUTOL HCL 400 MG TAB PO SCH (09:35)
[2016-12-25] MEDS: CLARITHROMYCIN 500 MG TAB PO SCH ×2 (09:35→21:07)
[2016-12-25] MEDS: LACTOBACILLUS ACIDOPHILUS TAB PO SCH ×2 (09:35→21:08)
--- NOTE | 2016-12-25 10:03 | HHI.PR ---
Subjective Remarks Follow-up sepsis/recurrent fevers/noncompliance HIV/end-stage renal disease 12/17/16-patient seen and examined, continued to spike fevers and had HD today 12/18/16-patient seen and examined, he continues to spike fever with MAXIMUM TEMPERATURE 102 at 2300. Denies any chills or cough production. Not much of an appetite 12/19/16-patient seen and examined, still spiking fevers. Denies any other issues 12/20/16-patient seen and examined, maximal 101.3 at 8 AM, no chills or shortness of breath. Performed first round of gallium scan yesterday 12/21/16-patient seen and examined, Tmax 102.8 at 8 PM, no other issues. Not much of an appetite 12/22/16-patient in dialysis, no acute event overnight. MAXIMUM TEMPERATURE 100.5 at midnight 12/23/16-Tmax 102.8 at midnight however currently afebrile. Bactrim has been discontinued. No other issues. 12/24/16-patient spiking fevers, to dialysis center for HD today. Patient had one episode of emesis this morning and complains of nausea 12/25/16-Tmax 102.5 at midnight however currently afebrile. Patient states he is in much better mood today Objective Vitals Vital Signs Date Time Temp Pulse Resp B/P (MAP) Pulse Ox O2 Delivery O2 Flow Rate FiO2 12/25/16 08:00 97.4 76 18 126/76 (93) 100 12/25/16 04:00 97.7 89 20 97/63 (74) 100 12/25/16 04:00 Room Air 12/25/16 00:00 102.5 114 20 110/59 (76) 98 12/25/16 00:00 Room Air 12/24/16 22:30 100.2 12/24/16 20:15 Room Air 12/24/16 20:00 84 12/24/16 20:00 98.1 89 18 96/60 (72) 100 12/24/16 16:00 102.6 103 20 116/69 (85) 100 12/24/16 12:00 99.0 97 20 135/85 (102) 100 I/O 12/24/16 12/24/16 12/24/16 12/25/16 12/25/1612/25/17 07:00 15:00 23:00 07:00 15:00 23:00 Intake Total 240 ml 480 ml Output Total 2000 ml Balance 240 ml -2000 ml 480 ml Intake Oral 240 ml 480 ml Hemodialysis 2000 ml # Voids 0 1 2 # Bowel Movements 2 0 Result Diagram: 12/21/16 1120 Objective Remarks GENERAL: NAD SKIN: Warm and dry. HEAD: Normocephalic. EYES: No scleral icterus. No injection or drainage. NECK: Supple, trachea midline. No JVD or lymphadenopathy. CARDIOVASCULAR: Regular rate and rhythm without murmurs, gallops, or rubs. RESPIRATORY: Breath sounds equal bilaterally. No accessory muscle use. GASTROINTESTINAL: Abdomen soft, non-tender, nondistended. MUSCULOSKELETAL: No cyanosis, or edema. BACK: Nontender without obvious deformity. No CVA tenderness. Procedures 11/14/16 hemodialysis catheter placement, right internal jugular 12/14 PD cath placement Side: Right A/P Problem List: (1) Renal failure ICD Code: N19 - Unspecified kidney failure Status: Acute (2) Sepsis ICD Code: A41.9 - Sepsis, unspecified organism Status: Acute (3) UTI (urinary tract infection) ICD Code: N39.0 - Urinary tract infection, site not specified (4) Chronic kidney disease, stage V ICD Code: N18.5 - Chronic kidney disease, stage 5 (5) HIV (human immunodeficiency virus infection) ICD Code: B20 - Human immunodeficiency virus [HIV] disease (6) Anemia ICD Code: D64.9 - Anemia, unspecified (7) Hypertension ICD Code: I10 - Essential (primary) hypertension (8) Medical non-compliance ICD Code: Z91.19 - Patient's noncompliance with other medical treatment and regimen Assessment and Plan 50-year-old man with Severe sepsis secondary to UTI, pneumonia-resolved AIDS-noncompliance - Status post treatment with Zosyn. Patient is immunocompromised, noncompliant with HAART for the last 2 months. - HSV positive. 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 Blood mycobacterial culture growing acid fast organism. Afebrile. - Continue Levaquin. Continue PCP prophylaxis. Fever, intermittent Management per infectious disease specialist s/p gallium scan report Secondary to drug reaction? Bactrim discontinued 12/22/16 Rifampin Per ID may use trial of naproxen for Fevers Acute renal failure superimposed on chronic kidney disease stage V - Nephrology following, remains non-oliguric. - HD per nephrology. HIV/AIDS - CD4 count less than 20. Patient admitted to being noncompliant with HAART meds for the last 2 months. He has been counseled. 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 - Currently on IV Ganciclovir at reduced dose Oral thrush, improved: Treatment with Diflucan Anemia - Transfused packed red blood cell Continue to monitor H&H DVT prophylaxis: Heparin. Problem Qualifiers (1) Renal failure: (2) Sepsis: Nelson Michelle MD Dec 25, 2016 10:03
[2016-12-25 12:00] VITALS: BP 105/65; PULSE 81; RESP 18; TEMP 97.5; O2SAT 100
--- NOTE | 2016-12-25 13:56 | HHI.NPPN ---
Subjective History of Present Illness 50-year-old male with past medical history of HIV disease for more than 20 years and history of renal stone who came to the hospital with complaint of back pain. The patient has back pain going on for the last 2 months off and on and he came to the emergency department yesterday with worsening pain. Additional Remarks Ongoing fevers - 102 last night. No acute complaints today. Review of Systems General Constitutional: Fatigue Cardiovascular Cardiac: MIRZA Objective Data Data Vital Signs Date Time Temp Pulse Resp B/P (MAP) Pulse Ox O2 Delivery O2 Flow Rate FiO2 12/25/16 12:00 97.5 81 18 105/65 (78) 100 12/25/16 08:00 97.4 76 18 126/76 (93) 100 12/25/16 08:00 99 Room Air 12/25/16 04:00 97.7 89 20 97/63 (74) 100 12/25/16 04:00 Room Air 12/25/16 00:00 102.5 114 20 110/59 (76) 98 12/25/16 00:00 Room Air 12/24/16 22:30 100.2 12/24/16 20:15 Room Air 12/24/16 20:00 84 12/24/16 20:00 98.1 89 18 96/60 (72) 100 12/24/16 16:00 102.6 103 20 116/69 (85) 100 -: 12/21/16 1120 Physical Exam General Appearance: No Acute Distress, Comfortable Eyes Eye Exam: Pupils Equal Throat Throat Exam: Oral Mucosa [place] & Moist Pulmonary Resp Exam: Breath Sounds Equal, No Distress, Rhonchi, Decreased Bases Cardiology CV Exam: Regular, Normal Sinus Rhythm Gastrointestinal/Abdomen GI Exam: Soft, Non-Tender, Bowel Sounds Present Extremeties Extremities Exam: No Edema Neurologic Neuro Exam: Alert, Awake, Oriented Psychiatric Psych Exam: Appropriate Responses Assessment/Plan Assessment Summary: MIKE/Acute Renal Failure Problem List: (1) Renal failure ICD Codes: N19 - Unspecified kidney failure Status: Acute (2) Sepsis ICD Codes: A41.9 - Sepsis, unspecified organism Status: Acute (3) Open wound of scrotum ICD Codes: S31.30XA - Unspecified open wound of scrotum and testes, initial encounter Status: Acute Plan c/o blurry vision left eye Remain non oliguric. SPEP was negative. Complements normal, other serology also negative. BP is better, on Metoprolol to 50 mg BID. If renal function will not improve, will consider Renal Biopsy once infection is controlled Now on Bactrim, Acyclovir, Clarithromycin and Ethambutol. No improvement in renal function. Possibly has End stage renal disease. Got PermCath. 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 No need to repeat the renal Biopsy as clinically he is showing no improvement, and the with advance HIV , the treatment options are limited, cannot be given immunosuppressive drugs. Now he change his mind and want to go for PD from ID stand point. He understand increase risk of infection due to advance HIV. Has PD catheter done. Also now on Ganciclovir, ID following. Gallium scan is negative. Ongoing fevers today (Temp 102 last night), continue with HD for now. Tolerated HD yesterday, continue TTS HD. ID considering for naprosyn for ongoing potential non-infectious fevers - ideally could avoid NSAIDs if possible, however continue to follow with ID. Problem Qualifiers (1) Renal failure: (2) Sepsis: Deric Tello MD Dec 25, 2016 13:56
[2016-12-25 15:01] LABS: HEMATOCRIT 26.9 % (39.0-51.0); MEAN CELL VOLUME 85.5 FL (80.0-100.0); MEAN CORPUSCULAR HEMOGLOBIN 28.2 PG (27.0-34.0); MEAN CORPUSCULAR HGB CONC 32.9 % (32.0-36.0); PLATELET COUNT 211 TH/MM3 (150-450); RED BLOOD COUNT 3.15 MIL/MM3 (4.50-5.90); RED CELL DISTRIBUTION WIDTH 15.1 % (11.6-17.2); WHITE BLOOD COUNT 4.3 TH/MM3 (4.0-11.0)
[2016-12-25 15:03] LABS: HEMO FLAGS AUTO DIFF
[2016-12-25 15:31] LABS: BICARBONATE 30.2 MEQ/L (21.0-32.0); POTASSIUM 3.6 MEQ/L (3.5-5.1)
[2016-12-25 15:42] LABS: BANDS 14 % (0-6); EOSINOPHILS 4 % (0-4); NEUTROPHIL # MANUAL DIFF 3.3 TH/MM3 (1.8-7.7); OVALOCYTES 1+ (NORMAL); PLATELET ESTIMATE SMEAR NORMAL (NORMAL); PLATELET MORPHOLOGY NORMAL (NORMAL); POLYS (SEG NEUTROPHILS) 62 % (16-70); SCAN/DIFF FINAL DIFF MANUAL; WBC DIFF SAMPLE 100
[2016-12-25 16:00] VITALS: BP 133/72; PULSE 120; RESP 20; TEMP 102.4; O2SAT 100
[2016-12-25] MEDS: ACETAMINOPHEN 325 MG TAB PO PRN ×2 (16:41→23:27)
[2016-12-25 20:00] VITALS: BP 98/56; PULSE 92; RESP 17; TEMP 98.4; O2SAT 100
[2016-12-26] VITALS (7 sets, daily range): BP systolic 103–118; BP diastolic 57–76; PULSE 91–119; RESP 18–19; TEMP 97.5–101.9; O2SAT 99–100
[2016-12-26] MEDS: ACETAMINOPHEN 325 MG TAB PO PRN ×2 (06:21→21:09)
[2016-12-26] MEDS: DOCUSATE SODIUM 50 MG/SENNA 8.6 MG TAB PO SCH ×2 (09:00→21:00)
[2016-12-26] MEDS: CLARITHROMYCIN 500 MG TAB PO SCH ×2 (09:00→21:09)
[2016-12-26] MEDS: LACTOBACILLUS ACIDOPHILUS TAB PO SCH ×2 (09:00→21:00)
[2016-12-26] MEDS: ETHAMBUTOL HCL 400 MG TAB PO SCH (09:00)
[2016-12-26] MEDS: RIFAMPIN 150 MG CAP PO SCH ×2 (09:01→21:09)
[2016-12-26] MEDS: SODIUM CHLORIDE 0.9% FLUSH 10 ML FLUSH IV FLUSH SCH ×2 (09:03→21:16)
--- NOTE | 2016-12-26 10:20 | HHI.PR ---
Subjective Remarks Follow-up sepsis/recurrent fevers/noncompliance HIV/end-stage renal disease 12/17/16-patient seen and examined, continued to spike fevers and had HD today 12/18/16-patient seen and examined, he continues to spike fever with MAXIMUM TEMPERATURE 102 at 2300. Denies any chills or cough production. Not much of an appetite 12/19/16-patient seen and examined, still spiking fevers. Denies any other issues 12/20/16-patient seen and examined, maximal 101.3 at 8 AM, no chills or shortness of breath. Performed first round of gallium scan yesterday 12/21/16-patient seen and examined, Tmax 102.8 at 8 PM, no other issues. Not much of an appetite 12/22/16-patient in dialysis, no acute event overnight. MAXIMUM TEMPERATURE 100.5 at midnight 12/23/16-Tmax 102.8 at midnight however currently afebrile. Bactrim has been discontinued. No other issues. 12/24/16-patient spiking fevers, to dialysis center for HD today. Patient had one episode of emesis this morning and complains of nausea 12/25/16-Tmax 102.5 at midnight however currently afebrile. Patient states he is in much better mood today 12/26/16-patient seen and examined, Tmax 102.4 at 4 PM however currently afebrile. Denies any chest pain or shortness of breath. Denies any chills Objective Vitals Vital Signs Date Time Temp Pulse Resp B/P (MAP) Pulse Ox O2 Delivery O2 Flow Rate FiO2 12/26/16 08:00 98.0 92 18 115/76 (89) 100 12/26/16 04:00 99.4 108 19 108/62 (77) 99 12/26/16 00:00 Room Air 12/26/16 00:00 100.9 100 19 103/67 (79) 100 12/25/16 20:30 Room Air 12/25/16 20:00 92 12/25/16 20:00 98.4 92 17 98/56 (70) 100 12/25/16 16:00 102.4 120 20 133/72 (92) 100 12/25/16 12:00 97.5 81 18 105/65 (78) 100 I/O 12/25/16 12/25/16 12/25/16 12/26/16 12/26/16 12/26/16 07:00 15:00 23:00 07:00 15:00 23:00 Intake Total 360 ml Output Total 330 ml Balance 360 ml -330 ml Intake Oral 360 ml Output Urine Total 330 ml # Voids 2 0 # Bowel Movements 0 1 Result Diagram: 12/25/16 1422 12/25/16 142 Objective Remarks GENERAL: NAD SKIN: Warm and dry. HEAD: Normocephalic. EYES: No scleral icterus. No injection or drainage. NECK: Supple, trachea midline. No JVD or lymphadenopathy. CARDIOVASCULAR: Regular rate and rhythm without murmurs, gallops, or rubs. RESPIRATORY: Breath sounds equal bilaterally. No accessory muscle use. GASTROINTESTINAL: Abdomen soft, non-tender, nondistended. MUSCULOSKELETAL: No cyanosis, or edema. BACK: Nontender without obvious deformity. No CVA tenderness. Procedures 11/14/16 hemodialysis catheter placement, right internal jugular 12/14 PD cath placement Side: Right A/P Problem List: (1) Renal failure ICD Code: N19 - Unspecified kidney failure Status: Acute (2) Sepsis ICD Code: A41.9 - Sepsis, unspecified organism Status: Acute (3) UTI (urinary tract infection) ICD Code: N39.0 - Urinary tract infection, site not specified (4) Chronic kidney disease, stage V ICD Code: N18.5 - Chronic kidney disease, stage 5 (5) HIV (human immunodeficiency virus infection) ICD Code: B20 - Human immunodeficiency virus [HIV] disease (6) Anemia ICD Code: D64.9 - Anemia, unspecified (7) Hypertension ICD Code: I10 - Essential (primary) hypertension (8) Medical non-compliance ICD Code: Z91.19 - Patient's noncompliance with other medical treatment and regimen Assessment and Plan 50-year-old man with Severe sepsis secondary to UTI, pneumonia-resolved AIDS-noncompliance - Status post treatment with Zosyn. Patient is immunocompromised, noncompliant with HAART for the last 2 months. - HSV positive. 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 Blood mycobacterial culture growing acid fast organism. Afebrile. - Continue Levaquin. Continue PCP prophylaxis. Fever, intermittent Management per infectious disease specialist s/p gallium scan report Secondary to drug reaction? Bactrim discontinued 12/22/16 Hold Rifampin if fever persists Per ID may use trial of naproxen for Fevers if no improvement Acute renal failure superimposed on chronic kidney disease stage V - Nephrology following, remains non-oliguric. -Recent kidney biopsy FSGS, with 2 out of 7 [place] sclerosis - HD per nephrology. -Patient would like to have a PD catheter placed HIV/AIDS - CD4 count less than 20. Patient admitted to being noncompliant with HAART meds for the last 2 months. He has been counseled. 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 - Currently on IV Ganciclovir at reduced dose Oral thrush, improved: Treatment with Diflucan Anemia - Transfused packed red blood cell Continue to monitor H&H DVT prophylaxis: Heparin. Problem Qualifiers (1) Renal failure: (2) Sepsis: Nelson Michelle MD Dec 26, 2016 10:20
--- NOTE | 2016-12-26 13:34 | HHI.IDPN ---
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, on HD; S/P PD cath Notes reviewed Continues to have daily fevers States he feels good today No new complaints Finished induction Rx Ganciclovir States his vision is better Gallium scan is negative for occult infection All his BC are negative No new infection found AFB in [place] with MAC Antibiotics Rifampin Biaxin Ethambutol fluconazole Ganciclovir IV Lines permacath Past Medical History HIV, for 20+years, noncompliant with medications for the past 2 months Kidney stones Allergies: Coded Allergies: No Known Allergies (Unverified , 11/05/16) Objective . Vital Signs Date Time Temp Pulse Resp B/P (MAP) Pulse Ox O2 Delivery O2 Flow Rate FiO2 12/26/16 08:09 103 12/26/16 08:00 98.0 92 18 115/76 (89) 100 12/26/16 08:00 Room Air 12/26/16 04:00 99.4 108 19 108/62 (77) 99 12/26/16 00:00 Room Air 12/26/16 00:00 100.9 100 19 103/67 (79) 100 12/25/16 20:30 Room Air 12/25/16 20:00 92 12/25/16 20:00 98.4 92 17 98/56 (70) 100 12/25/16 16:00 102.4 120 20 133/72 (92) 100 . Laboratory Tests Test 12/25/16 14:22 White Blood Count 4.3 TH/MM3 Red Blood Count 3.15 MIL/MM3 Hemoglobin 8.9 GM/DL Hematocrit 26.9 % Mean Corpuscular Volume 85.5 FL Mean Corpuscular Hemoglobin 28.2 PG Mean Corpuscular Hemoglobin Concent 32.9 % Red Cell Distribution Width 15.1 % Platelet Count 211 TH/MM3 Mean Platelet Volume 9.1 FL CBC Comment AUTO DIFF Differential Total Cells Counted 100 Neutrophils % (Manual) 62 % Band Neutrophils % 14 % Lymphocytes % 12 % Monocytes % 8 % Eosinophils % 4 % Neutrophils # (Manual) 3.3 TH/MM3 Differential Comment FINAL DIFF MANUAL Platelet Estimate NORMAL Platelet Morphology Comment NORMAL Ovalocytes 1+ Laboratory Tests Test 12/25/16 14:22 Blood Urea Nitrogen 25 MG/DL Creatinine 5.81 MG/DL Random Glucose 135 MG/DL Calcium Level 8.5 MG/DL Sodium Level 135 MEQ/L Potassium Level 3.6 MEQ/L Chloride Level 94 MEQ/L Carbon Dioxide Level 30.2 MEQ/L Anion Gap 11 MEQ/L Estimat Glomerular Filtration Rate 13 ML/MIN Imaging Last Impressions Renal Biopsy CT 12/01/16 0600 Signed Impressions: Service Date/Time: November 14:17 - CONCLUSION: Uncomplicated CT guided biopsy. Alexis Adhikari MD Central Venous Line 11/29/16 0000 Signed Impressions: Service Date/Time: Tuesday, November 29, 2016 00:00 - CONCLUSION: Uncomplicated catheter removal. Solitario Diaz MD Catheter Placement X-Ray 11/29/16 0000 Signed Impressions: Service Date/Time: Tuesday, November 29, 2016 13:58 - CONCLUSION: Uncomplicated PermaCath placement as above. Solitario Diaz MD Tumor Localization 11/14/16 0000 Signed Impressions: Service Date/Time: Monday, November 14, 2016 11:38 - CONCLUSION: Negative scan Solitario Diaz MD Chest X-Ray 11/13/16 0000 Signed Impressions: Service Date/Time: Sunday, November 13, 2016 16:02 - CONCLUSION: No acute cardiopulmonary disease. Quincy Medellin MD Renal Ultrasound 11/05/16 0000 Signed Impressions: Service Date/Time: Saturday, November 05, 2016 19:17 - CONCLUSION: Diffusely echogenic kidneys indicating medical renal disease. Dorian Murry MD Abdomen/Pelvis CT 11/05/16 0000 Signed Impressions: Service Date/Time: Saturday, November 05, 2016 17:19 - CONCLUSION: 1. 4 mm calculus in the right renal pelvis/ureteropelvic junction with mild adjacent perinephric/periureteral stranding. No evidence of hydronephrosis. 2. 1 cm round hypodensity in the anterior right mid kidney statistically most likely to represent a cyst. 3. 3.7 cm hypodensity in the right lobe of the liver air the dome of the diaphragm. This finding is nonspecific on noncontrast CT. The most likely etiologies include hemangioma and cyst. It could be further evaluated with ultrasound nonemergent followup MRI of the abdomen. 4. Mild dilated proximal right common iliac artery. Dorian Murry MD Physical Exam GENERAL: awake and alert, not in respiratory distress. SKIN: Warm and dry. HEAD: Atraumatic. Normocephalic. No temporal wasting, or tenderness. EYES: [place] conjunctiva. No petechia or hemorrhage. No scleral icterus. No injection or drainage. EARS, NOSE AND THROAT: Nose without bleeding or purulent nasal discharge. Mucous membranes pink and moist. White coating on tongue NECK: Trachea midline. Supple and not tender, no meningeal signs CARDIOVASCULAR: Regular rate and rhythm. No murmurs, rubs or gallops heard RESPIRATORY: Clear to auscultation. Breath sounds equal bilaterally. No rales , wheezing or rhonchi ABDOMEN: Soft, mild tenderness, not distended, dry dressing over cath. Bowel sounds present and normoactive. No guarding. No rebound. No organomegaly. Has oblong brown non tender nodule on R lateral groin (chronic been there for years, not getting bigger) EXTREMITIES: No clubbing, cyanosis, or edema.No joint effusion, has good ROM. No calf tenderness. Well perfused and warm. BUTTOCK: Ulcers healed NEUROLOGICAL: Awake alert Non-focal PSYCHIATRIC: Normal affect, calm and cooperative. 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
--- NOTE | 2016-12-26 16:57 | HHI.NPPN ---
Subjective History of Present Illness 50-year-old male with past medical history of HIV disease for more than 20 years and history of renal stone who came to the hospital with complaint of back pain. The patient has back pain going on for the last 2 months off and on and he came to the emergency department yesterday with worsening pain. Additional Remarks Patient is alert, no SOB, still spiking fever almost daily, not in distress, clinically same. Review of Systems General Constitutional: Fatigue Cardiovascular Cardiac: MIRZA Objective Data Data Vital Signs Date Time Temp Pulse Resp B/P (MAP) Pulse Ox O2 Delivery O2 Flow Rate FiO2 12/26/16 12:00 97.9 91 18 111/71 (84) 100 12/26/16 08:09 103 12/26/16 08:00 98.0 92 18 115/76 (89) 100 12/26/16 08:00 Room Air 12/26/16 04:00 99.4 108 19 108/62 (77) 99 12/26/16 00:00 Room Air 12/26/16 00:00 100.9 100 19 103/67 (79) 100 12/25/16 20:30 Room Air 12/25/16 20:00 92 12/25/16 20:00 98.4 92 17 98/56 (70) 100 -: 12/25/16 1422 12/25/16 1422 Physical Exam General Appearance: No Acute Distress, Comfortable Eyes Eye Exam: Pupils Equal Throat Throat Exam: Oral Mucosa [place] & Moist Pulmonary Resp Exam: Breath Sounds Equal, No Distress, Rhonchi, Decreased Bases Cardiology CV Exam: Regular, Normal Sinus Rhythm Gastrointestinal/Abdomen GI Exam: Soft, Non-Tender, Bowel Sounds Present Extremeties Extremities Exam: No Edema Neurologic Neuro Exam: Alert, Awake, Oriented Psychiatric Psych Exam: Appropriate Responses Assessment/Plan Assessment Summary: MIKE/Acute Renal Failure Problem List: (1) Renal failure ICD Codes: N19 - Unspecified kidney failure Status: Acute (2) Sepsis ICD Codes: A41.9 - Sepsis, unspecified organism Status: Acute (3) Open wound of scrotum ICD Codes: S31.30XA - Unspecified open wound of scrotum and testes, initial encounter Status: Acute Plan c/o blurry vision left eye Remain non oliguric. SPEP was negative. Complements normal, other serology also negative. BP is better, on Metoprolol to 50 mg BID. If renal function will not improve, will consider Renal Biopsy once infection is controlled. Fever pattern is better, ID is following. Now on Bactrim, Acyclovir, Clarithromycin and Ethambutol. No improvement in renal function. Possibly has End stage renal disease. Got PermCath. 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 No need to repeat the renal Biopsy as clinically he is showing no improvement, and the with advance HIV , the treatment options are limited, cannot be given immunosuppressive drugs. I discussed this in detail with patient. Now he change his mind and want to go for PD from ID stand point. He understand increase risk of infection due to advance HIV. Has PD catheter done. Also now on Ganciclovir, ID following. Gallium scan is negative. HD to continue TTS. On Epogen , follow Hgb. Transfuse as needed. HD will be in AM. Problem Qualifiers (1) Renal failure: (2) Sepsis: Kwadwo Shah MD Dec 26, 2016 16:57
[2016-12-26 21:08] LABS: HEMATOCRIT 22.9 % (39.0-51.0); MEAN CORPUSCULAR HEMOGLOBIN 27.7 PG (27.0-34.0); PLATELET COUNT 205 TH/MM3 (150-450); RED BLOOD COUNT 2.73 MIL/MM3 (4.50-5.90)
[2016-12-26 21:11] LABS: HEMO FLAGS AUTO DIFF
[2016-12-26 21:51] LABS: BANDS 15 % (0-6); MYELOCYTES 1 % (0-0); NEUTROPHIL # MANUAL DIFF 3.6 TH/MM3 (1.8-7.7); POLYS (SEG NEUTROPHILS) 73 % (16-70); WBC DIFF SAMPLE 100
[2016-12-26 21:52] LABS: DOHLE BODIES PRESENT (NONE SEEN); PLATELET ESTIMATE SMEAR NORMAL (NORMAL); PLATELET MORPHOLOGY NORMAL (NORMAL); SCAN/DIFF FINAL DIFF MANUAL
[2016-12-26 22:08] LABS: BICARBONATE 28.2 MEQ/L (21.0-32.0); POTASSIUM 3.2 MEQ/L (3.5-5.1)
[2016-12-27] VITALS (7 sets, daily range): BP systolic 100–118; BP diastolic 52–67; PULSE 87–127; RESP 16–18; TEMP 98.3–102.8; O2SAT 100
[2016-12-27] MEDS: RIFAMPIN 150 MG CAP PO SCH ×2 (09:00→20:33)
[2016-12-27] MEDS: DOCUSATE SODIUM 50 MG/SENNA 8.6 MG TAB PO SCH ×2 (09:00→20:34)
[2016-12-27] MEDS: ETHAMBUTOL HCL 400 MG TAB PO SCH (09:00)
[2016-12-27] MEDS: CLARITHROMYCIN 500 MG TAB PO SCH ×2 (09:00→20:33)
[2016-12-27] MEDS: SODIUM CHLORIDE 0.9% FLUSH 10 ML FLUSH IV FLUSH SCH ×2 (09:00→20:46)
[2016-12-27] MEDS: LACTOBACILLUS ACIDOPHILUS TAB PO SCH ×2 (09:00→20:33)
[2016-12-27] MEDS: ALBUMIN HUMAN 25% 25 GM/100 ML BAGP IV PRN ×2 (09:30→09:31)
[2016-12-27] MEDS: EPOETIN ALFA 10,000 UNITS/ML VIAL IV PRN (11:06)
[2016-12-27] MEDS: GENTAMICIN SULFATE (DIALYSIS USE ONLY) 20 MG/2 ML VIAL IV PRN (11:06)
[2016-12-27] MEDS: HEPARIN SODIUM - IV 10,000 UNITS/10 ML VIAL PRN (11:06)
--- NOTE | 2016-12-27 11:20 | HHI.NPPN ---
Subjective History of Present Illness 50-year-old male with past medical history of HIV disease for more than 20 years and history of renal stone who came to the hospital with complaint of back pain. The patient has back pain going on for the last 2 months off and on and he came to the emergency department yesterday with worsening pain. Additional Remarks Patient is alert, no SOB, still spiking fever almost daily, now on HD. Review of Systems General Constitutional: Fatigue Cardiovascular Cardiac: MIRZA Objective Data Data Vital Signs Date Time Temp Pulse Resp B/P (MAP) Pulse Ox O2 Delivery O2 Flow Rate FiO2 12/27/16 08:10 Room Air 12/27/16 08:10 87 12/27/16 08:01 99.1 100 16 104/62 (76) 100 12/27/16 04:00 98.3 90 16 111/61 (78) 100 12/27/16 00:00 99.3 103 16 100/52 (68) 100 12/26/16 20:00 118 12/26/16 20:00 Room Air 12/26/16 20:00 101.9 119 18 103/57 (72) 99 12/26/16 16:00 97.5 91 18 118/71 (87) 100 12/26/16 12:00 97.9 91 18 111/71 (84) 100 -: 12/26/16195312/26/161953 Physical Exam General Appearance: No Acute Distress, Comfortable Eyes Eye Exam: Pupils Equal Throat Throat Exam: Oral Mucosa [place] & Moist Pulmonary Resp Exam: Breath Sounds Equal, No Distress, Rhonchi, Decreased Bases Cardiology CV Exam: Regular, Normal Sinus Rhythm Gastrointestinal/Abdomen GI Exam: Soft, Non-Tender, Bowel Sounds Present Extremeties Extremities Exam: No Edema Neurologic Neuro Exam: Alert, Awake, Oriented Psychiatric Psych Exam: Appropriate Responses Assessment/Plan Assessment Summary: MIKE/Acute Renal Failure Problem List: (1) Renal failure ICD Codes: N19 - Unspecified kidney failure Status: Acute (2) Sepsis ICD Codes: A41.9 - Sepsis, unspecified organism Status: Acute (3) Open wound of scrotum ICD Codes: S31.30XA - Unspecified open wound of scrotum and testes, initial encounter Status: Acute Plan c/o blurry vision left eye Remain non oliguric. SPEP was negative. Complements normal, other serology also negative. BP is better, on Metoprolol to 50 mg BID. If renal function will not improve, will consider Renal Biopsy once infection is controlled. Fever pattern is better, ID is following. Now on Bactrim, Acyclovir, Clarithromycin and Ethambutol. No improvement in renal function. Possibly has End stage renal disease. Got PermCath. 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 No need to repeat the renal Biopsy as clinically he is showing no improvement, and the with advance HIV , the treatment options are limited, cannot be given immunosuppressive drugs. I discussed this in detail with patient. Now he change his mind and want to go for PD from ID stand point. He understand increase risk of infection due to advance HIV. Has PD catheter done. Now on Valganciclovir, ID following. Gallium scan is negative. HD to continue TTS. On Epogen , follow Hgb. Transfuse as needed. HD now and remove fluid as tolerated. Problem Qualifiers (1) Renal failure: (2) Sepsis: Kwadwo Shah MD Dec 27, 2016 11:20
--- NOTE | 2016-12-27 11:30 | HHI.PR ---
Subjective Remarks having his HD today. had a fever spike last night. T max 101.9. no other new complaints. Objective Vitals Vital Signs Date Time Temp Pulse Resp B/P (MAP) Pulse Ox O2 Delivery O2 Flow Rate FiO2 12/27/16 08:10 Room Air 12/27/16 08:10 87 12/27/16 08:01 99.1 100 16 104/62 (76) 100 12/27/16 04:00 98.3 90 16 111/61 (78) 100 12/27/16 00:00 99.3 103 16 100/52 (68) 100 12/26/16 20:00 118 12/26/16 20:00 Room Air 12/26/16 20:00 101.9 119 18 103/57 (72) 99 12/26/16 16:00 97.5 91 18 118/71 (87) 100 12/26/16 12:00 97.9 91 18 111/71 (84) 100 I/O 12/26/16 12/26/16 12/26/16 12/27/16 12/27/16 12/27/16 07:00 15:00 23:00 07:00 15:00 23:00 Intake Total 720 ml 360 ml Output Total 330 ml 100 ml 200 ml Balance -330 ml 620 ml 160 ml Intake Oral 720 ml 360 ml Output Urine Total 330 ml 100 ml 200 ml # Bowel Movements 1 1 0 Result Diagram: 12/26/16195312/26/161953 Imaging Last Impressions Gallium Scan Nuclear Medicine 12/19/16 0000 Signed Impressions: Service Date/Time: Monday, December 19, 2016 13:19 - CONCLUSION: Negative for occult inflammatory process. Enzo Isbell MD FACR Upper Extremity Ultrasound 12/07/16 0000 Signed Impressions: Service Date/Time: Wednesday, December 07, 2016 10:11 - CONCLUSION: Venous mapping as above. Enzo Isbell MD FACR Renal Biopsy CT 12/01/16 0600 Signed Impressions: Service Date/Time: November 14:17 - CONCLUSION: Uncomplicated CT guided biopsy. Alexis Adhikari MD Central Venous Line 11/29/16 0000 Signed Impressions: Service Date/Time: Tuesday, November 29, 2016 00:00 - CONCLUSION: Uncomplicated catheter removal. Solitario Diaz MD Catheter Placement X-Ray 11/29/16 0000 Signed Impressions: Service Date/Time: Tuesday, November 29, 2016 13:58 - CONCLUSION: Uncomplicated PermaCath placement as above. Solitario Diaz MD Tumor Localization 11/14/16 0000 Signed Impressions: Service Date/Time: Monday, November 14, 2016 11:38 - CONCLUSION: Negative scan Solitario Diaz MD Chest X-Ray 11/13/16 0000 Signed Impressions: Service Date/Time: Sunday, November 13, 2016 16:02 - CONCLUSION: No acute cardiopulmonary disease. Quincy Medellin MD Renal Ultrasound 11/05/16 0000 Signed Impressions: Service Date/Time: Saturday, November 05, 2016 19:17 - CONCLUSION: Diffusely echogenic kidneys indicating medical renal disease. Dorian Murry MD Abdomen/Pelvis CT 11/05/16 0000 Signed Impressions: Service Date/Time: Saturday, November 05, 2016 17:19 - CONCLUSION: 1. 4 mm calculus in the right renal pelvis/ureteropelvic junction with mild adjacent perinephric/periureteral stranding. No evidence of hydronephrosis. 2. 1 cm round hypodensity in the anterior right mid kidney statistically most likely to represent a cyst. 3. 3.7 cm hypodensity in the right lobe of the liver air the dome of the diaphragm. This finding is nonspecific on noncontrast CT. The most likely etiologies include hemangioma and cyst. It could be further evaluated with ultrasound nonemergent followup MRI of the abdomen. 4. Mild dilated proximal right common iliac artery. Dorian Murry MD Objective Remarks GENERAL: This is a well-nourished, well-developed patient, in no apparent distress. CARDIOVASCULAR: Regular rate and regular rhythm without murmurs, gallops, or rubs. RESPIRATORY: Clear to auscultation. Breath sounds equal bilaterally. No wheezes , rales, or rhonchi. GASTROINTESTINAL: Abdomen soft, non-tender, nondistended. Normal, active bowel sounds MUSCULOSKELETAL: Extremities without clubbing, cyanosis, or edema. NEURO: Alert & Oriented x4 to person, place, time, situation. Moves all ext x4 Procedures 11/14/16 hemodialysis catheter placement, right internal jugular 12/14 PD cath placement Medications and IVs Current Medications Sodium Chloride 1,000 ml @ 1,000 mls/hr Q1H ONCE IV Last administered on 14:25; Start 11/05/16 at 13:54; Stop 11/05/16 at 14:53; Status DC Sodium Chloride 1,000 ml @ 1,000 mls/hr Q1H ONCE IV Last administered on 15:12; Start 11/05/16 at 13:54; Stop 11/05/16 at 14:53; Status DC Sodium Chloride 100 ml @ 1,000 mls/hr Q6M ONCE IV Last administered on 15:32; Start 11/05/16 at 13:54; Stop 11/05/16 at 13:59; Status DC Vancomycin HCl 1050 mg/Sodium Chloride 260.5 ml @ 250 mls/hr ONCE ONCE IV Last administered on 11/05/16 15:06; Start 11/05/16 at 14:00; Stop 11/05/16 at 15:02; Status DC Piperacillin Sod/ Tazobactam Sod 50 ml @ 100 mls/hr ONCE ONCE IV Last administered on 11/05/16 16:38; Start 11/05/16 at 14:00; Stop 11/05/16 at 14:29 ; Status DC Acetaminophen (Tylenol) 1,000 mg ONCE ONCE PO Last administered on 11/05/16 16:38; Start 11/05/16 at 15:45; Stop 11/05/16 at 15:46; Status DC Abacavir Sulfate (Ziagen) 300 mg BID PO ; Start 11/05/16 at 21:00; Stop at 21:00; Status DC Lamivudine (Epivir) 150 mg BID PO ; Start 11/05/16 at 21:00; Stop 11/05/16 at 21 :00; Status DC Lopinavir/ Ritonavir (Kaletra 200-50 Mg) 1 tab BID PO ; Start 11/05/16 at 21:00 ; Stop 11/05/16 at 21:00; Status DC Pharmacy Profile Note 0 ml @ 0 mls/hr UNSCH OTHER ; Start 11/05/16 at 16:15; Stop 11/08/16 at 09:10; Status DC Piperacillin Sod/ Tazobactam Sod 50 ml @ 100 mls/hr Q8H IV Last administered on 11/09/16 16:35; Start 11/06/16 at 00:00; Stop 11/09/16 at 17:24; Status DC Sodium Chloride 1,000 ml @ 83 mls/hr Q12H3M IV Last administered on 11/09/16 05:17; Start 11/05/16 at 17:00; Stop 11/09/16 at 16:19; Status DC Sodium Chloride (NS Flush) 2 ml UNSCH PRN IV FLUSH FLUSH AFTER USING IV ACCESS ; Start 11/05/16 at 16:15 Sodium Chloride (NS Flush) 2 ml BID IV FLUSH Last administered on 12/14/16 07: 26; Start 11/05/16 at 21:00; Stop 12/14/16 at 10:39; Status DC Acetaminophen (Tylenol) 650 mg Q4H PRN PO TEMP > 100.4 Last administered on 21:09; Start 11/05/16 at 16:15 Ondansetron HCl (Zofran Inj) 4 mg Q6H PRN IVP NAUSEA OR VOMITING Last administered on 12/22/16 21:14; Start 11/05/16 at 16:15 Heparin Sodium (Porcine) (Heparin Inj) 5,000 units Q12H SQ Last administered on 12/08/16 18:16; Start 11/05/16 at 17:00; Status Future Hold Naloxone HCl (Narcan Inj) 0.4 mg UNSCH PRN IV SEE LABEL COMMENTS; Start at 16:15 Senna/Docusate Sodium (Dee-Colace) 1 tab BID PO Last administered on 09:35; Start 11/05/16 at 21:00 Magnesium Hydroxide (Milk Of Magnesia Liq) 30 ml Q12H PRN PO MILD - MODERATE CONSTIPATION; Start 11/05/16 at 16:15 Sennosides (Senokot) 17.2 mg Q12H PRN PO MODERATE - SEVERE CONSTIPATION; Start 11/05/16 at 16:15 Bisacodyl (Dulcolax Supp) 10 mg DAILY PRN RECTAL SEVERE CONSITIPATION; Start at 16:15 Lactulose (Lactulose Liq) 30 ml DAILY PRN PO SEVERE CONSITIPATION; Start at 16:15 Acetaminophen/ Hydrocodone Bitart (Branson 7.5-325 Mg) 1 tab Q4H PRN PO PAIN SCALE 4 TO 10; Start 11/05/16 at 16:15; Stop 12/14/16 at 10:38; Status DC Nystatin (Mycostatin Liq) 5 ml QID SWISH-SWAL Last administered on 11/26/16 21 :39; Start 11/05/16 at 18:00; Stop 11/27/16 at 13:26; Status DC Vancomycin HCl 1000 mg/Sodium Chloride 250 ml @ 250 mls/hr ONCE ONCE IV Last administered on 11/07/16 11:27; Start 11/07/16 at 12:00; Stop 11/07/16 at 12:59 ; Status DC Valacyclovir HCl (Valtrex) 500 mg Q8HR PO Last administered on 11/15/16 20:39 ; Start 11/08/16 at 09:15; Stop 11/15/16 at 23:00; Status DC Sodium Bicarbonate (Sodium Bicarbonate) 650 mg Q12HR PO Last administered on 07:49; Start 11/09/16 at 21:00; Stop 11/16/16 at 16:54; Status DC Ceftriaxone Sodium 2000 mg/ Sodium Chloride 100 ml @ 200 mls/hr Q24H IV Last administered on 11/21/16 15:59; Start 11/09/16 at 18:00; Stop 11/21/16 at 16:39 ; Status DC Metoprolol Tartrate (Lopressor) 12.5 mg Q12HR PO Last administered on 10:02; Start 11/10/16 at 18:00; Stop 11/13/16 at 14:05; Status DC Levofloxacin (Levaquin) 250 mg Q48H PO Last administered on 11/15/16 17:57; Start 11/11/16 at 16:00; Stop 11/16/16 at 10:23; Status DC Azithromycin (Zithromax) 250 mg DAILY PO Last administered on 11/21/16 08:41; Start 11/11/16 at 15:15; Stop 11/21/16 at 16:45; Status DC Sodium Bicarbonate 75 meq/Sodium Chloride 1,075 ml @ 75 mls/hr [id number] IV Last administered on 11/16/16 00:00; Start 11/12/16 at 21:00; Stop 11/16/16 at 06:05; Status DC Sodium Chloride 250 ml @ 15 mls/hr ONCE ONCE IV ; Start 11/13/16 at 06:00; Stop 11/13/16 at 22:39; Status DC Metoprolol Tartrate (Lopressor) 25 mg Q12HR PO Last administered on 11/16/16 07:49; Start 11/13/16 at 21:00; Stop 11/16/16 at 16:54; Status DC Metoprolol Tartrate (Lopressor) 12.5 mg ONCE ONCE PO Last administered on 11/13 16:16; Start 11/13/16 at 14:30; Stop 11/13/16 at 14:31; Status DC Miscellaneous (Pill Splitter) 1 ea UNSCH PRN OTHER SEE LABEL COMMENTS; Start at 14:30 Sodium Chloride 1,000 ml @ 0 mls/hr Q0M PRN IV For Prime & Rinse Back Last administered on 12/22/16 09:53; Start 11/13/16 at 17:02 Heparin Sodium (Porcine) (Heparin Inj) 8,000 units UNSCH PRN IVF WITH DIALYSIS Last administered on 12/06/16 11:10; Start 11/13/16 at 17:15 Sodium Chloride 1,000 ml @ 200 mls/hr Q5H PRN IV WITH DIALYSIS; Start 11/13/16 at 17:02 Sodium Chloride 1,000 ml @ 0 mls/hr Q0M PRN IV WITH DIALYSIS; Start 11/13/16 at 17:02 Mannitol (Mannitol Inj) 12.5 gm UNSCH PRN IV WITH DIALYSIS; Start 11/13/16 at 17:15 Albumin Human (Albumin 25% Inj) 25 gm UNSCH PRN IV WITH DIALYSIS Last administered on 12/27/16 09:31; Start 11/13/16 at 17:15 Sodium Chloride (NS Flush) 5 ml UNSCH PRN IV FLUSH WITH DIALYSIS Last administered on 12/17/16 10:57; Start 11/13/16 at 17:15 Heparin Sodium (Porcine) (Heparin Inj) UNSCH PRN .XX WITH DIALYSIS Last administered on 12/27/16 11:06; Start 11/13/16 at 17:15 Gentamicin Sulfate (Gentamicin (Dialysis) Inj) 20 mg UNSCH PRN IV WITH DIALYSIS Last administered on 12/27/16 11:06; Start 11/13/16 at 17:15 Ondansetron HCl (Zofran Inj) 4 mg UNSCH PRN IV WITH DIALYSIS Last administered on 12/09/16 20:25; Start 11/13/16 at 17:15 Acetaminophen (Tylenol) 650 mg UNSCH PRN PO for headach, pain, temp > 101F Last administered on 11/21/16 12:27; Start 11/13/16 at 17:15 Diphenhydramine HCl (Benadryl) 25 mg UNSCH PRN PO for hives/itching/anaphylaxis ; Start 11/13/16 at 17:15 Nitroglycerin (Nitrostat Sl) 0.4 mg UNSCH PRN SL CHEST PAIN; Start 11/13/16 at 17:15 Clonidine (Catapres) 0.1 mg UNSCH PRN PO for BP > 170/100 X 2 readings Last administered on 12/08/16 13:25; Start 11/13/16 at 17:15 Gelatin (Gelfoam 12 Mm/7 Mm Top) 1 foam UNSCH PRN TOP SEE LABEL COMMENTS; Start 11/13/16 at 17:15 Heparin Sodium (Porcine) (*HEPARIN INJ Periprocedural ONLY) 10,000 units STK- MED ONCE .ROUTE Last administered on 11/14/16 11:29; Start 11/14/16 at 11:26; Stop 11/14/16 at 11:27; Status DC Sodium Chloride (NS Flush) UNSCH PRN IVF SEE PROTOCOL; Start 11/14/16 at 11:45 ; Stop 11/29/16 at 19:51; Status DC Heparin Sodium (Porcine) (Heparin Inj) UNSCH PRN IV FLUSH SEE PROTOCOL Last administered on 11/29/16 10:25; Start 11/14/16 at 11:45; Stop 11/29/16 at 19:51; Status DC Potassium Bicarb/ Potassium Chloride (K-Lyte Cl Eff) 50 meq ONCE ONCE PO Last administered on 11/16/16 06:37; Start 11/16/16 at 06:00; Stop 11/16/16 at 06:02; Status DC Potassium Chloride 100 ml @ 50 mls/hr Q2H IV Last administered on 11/16/16 07 :49; Start 11/16/16 at 06:00; Stop 11/16/16 at 10:04; Status DC Levofloxacin (Levaquin) 250 mg Q24H PO Last administered on 12/07/16 16:24; Start 11/16/16 at 16:00; Stop 12/08/16 at 12:55; Status DC Metoprolol Tartrate (Lopressor) 50 mg Q12HR PO Last administered on 12/02/16 08 :53; Start 11/16/16 at 21:00; Status Future Hold Valacyclovir HCl (Valtrex) 500 mg DAILY PO Last administered on 11/22/16 08:36 ; Start 11/17/16 at 10:45; Stop 11/22/16 at 08:59; Status DC Amlodipine Besylate (Norvasc) 5 mg DAILY PO Last administered on 12/02/16 08:53 ; Start 11/19/16 at 12:00; Status Future Hold Ethambutol HCl (Myambutol) 800 mg DAILY PO Last administered on 12/03/16 14:22 ; Start 11/21/16 at 18:00; Stop 12/03/16 at 16:35; Status DC Clarithromycin (Biaxin) 500 mg Q12HR PO Last administered on 12/26/16 21:09; Start 11/21/16 at 21:00 Acyclovir (Zovirax) 400 mg Q12HR PO Last administered on 12/03/16 14:22; Start 11/23/16 at 12:30; Stop 12/03/16 at 18:16; Status DC Trimethoprim/ Sulfamethoxazole (Bactrim Ds 800-160 Mg) 1 tab MoWeFr@09 PO Last administered on 12/21/16 09:33; Start 11/25/16 at 09:00; Stop 12/22/16 at 14:14 ; Status DC Fluconazole (Diflucan) 200 mg ONCE ONCE PO Last administered on 11/26/16 12:46 ; Start 11/26/16 at 07:45; Stop 11/26/16 at 07:46; Status DC Fluconazole (Diflucan) 100 mg DAILY PO Last administered on 12/09/16 10:19; Start 11/27/16 at 09:00; Stop 12/09/16 at 15:27; Status DC Fentanyl Citrate (fentaNYL INJ) 100 mcg STK-MED ONCE .ROUTE Last administered on 11/29/16 13:50; Start 11/29/16 at 13:50; Stop 11/29/16 at 13:51; Status DC Midazolam HCl (Versed Inj) 2 mg STK-MED ONCE .ROUTE Last administered on 13:50; Start 11/29/16 at 13:50; Stop 11/29/16 at 13:51; Status DC Midazolam HCl (Versed Inj) 2 mg STK-MED ONCE .ROUTE ; Start 11/29/16 at 13:50; Stop 11/29/16 at 13:51; Status DC Fentanyl Citrate (fentaNYL INJ) 100 mcg STK-MED ONCE .ROUTE ; Start 11/29/16 at 13:51; Stop 11/29/16 at 13:52; Status DC Heparin Sodium (Porcine) (*HEPARIN INJ Periprocedural ONLY) 10,000 units STK- MED ONCE .ROUTE Last administered on 11/29/16 14:08; Start 11/29/16 at 14:08; Stop 11/29/16 at 14:09; Status DC Lidocaine/ Epinephrine (Xylocaine-Epi 2%-1:100,000 Inj) 20 ml STK-MED ONCE .ROUTE ; Start 11/29/16 at 14:09; Stop 11/29/16 at 14:10; Status DC Lidocaine/ Epinephrine (Xylocaine-Epi 2%-1:100,000 Inj) 20 ml STK-MED ONCE .ROUTE Last administered on 11/29/16 14:10; Start 11/29/16 at 14:10; Stop at 14:11; Status DC Sodium Chloride (NS Flush) UNSCH PRN IVF SEE PROTOCOL; Start 11/29/16 at 18:15 Heparin Sodium (Porcine) (Heparin Inj) UNSCH PRN IV FLUSH SEE PROTOCOL Last administered on 12/06/16 10:15; Start 11/29/16 at 18:15 Fentanyl Citrate (fentaNYL INJ) 100 mcg STK-MED ONCE .ROUTE Last administered on 12/01/16 13:16; Start 12/01/16 at 13:16; Stop 12/01/16 at 13:17; Status DC Midazolam HCl (Versed Inj) 2 mg STK-MED ONCE .ROUTE Last administered on 13:16; Start 12/01/16 at 13:16; Stop 12/01/16 at 13:17; Status DC Lidocaine HCl (Xylocaine 1% Inj) 20 ml STK-MED ONCE .ROUTE Last administered on 12/01/16 13:45; Start 12/01/16 at 13:45; Stop 12/01/16 at 13:46; Status DC Sodium Bicarbonate 50 ml @ As Directed STK-MED ONCE .ROUTE Last administered on 12/01/16 13:45; Start 12/01/16 at 13:45; Stop 12/01/16 at 13:46; Status DC Lactobacillus Acidophilus (Lactinex) 1 tab Q12HR PO Last administered on 09:00; Start 12/02/16 at 10:00 Pharmacy Profile Note 0 ml @ 0 mls/hr UNSCH OTHER ; Start 12/03/16 at 17:00 Ethambutol HCl (Myambutol) 800 mg DAILY PO Last administered on 12/26/16 09:00 ; Start 12/04/16 at 09:00 Ganciclovir Sodium 81 mg/ Sodium Chloride 101.62 ml @ 101.62 mls/hr WITH DIALYSIS IV ; Start 12/04/16 at 09:00; Stop 12/10/16 at 12:45; Status DC Ganciclovir Sodium 81 mg/ Sodium Chloride 101.62 ml @ 101.62 mls/hr ONCE ONCE IV Last administered on 12/03/16 22:38; Start 12/03/16 at 21:00; Stop 12/03/16 at 21:59; Status DC Ganciclovir Sodium 41 mg/ Sodium Chloride 100.82 ml @ 100.82 mls/hr TuThSa IV ; Start 12/27/16 at 14:00; Stop 12/27/16 at 14:00; Status DC Epoetin Abel (Epogen Inj) 10,000 units UNSCH PRN IV WITH DIALYSIS Last administered on 12/27/16 11:06; Start 12/06/16 at 09:30 Levofloxacin (Levaquin) 250 mg Q48H PO Last administered on 12/08/16 18:16; Start 12/08/16 at 16:00; Stop 12/09/16 at 15:27; Status DC Sodium Chloride 250 ml @ 15 mls/hr ONCE ONCE IV Last administered on 10:21; Start 12/08/16 at 17:00; Stop 12/09/16 at 09:39; Status DC Acetaminophen (Tylenol) 650 mg Q4H PRN PO SEE LABEL COMMENTS; Start 12/08/16 at 17:00; Stop 12/09/16 at 16:59; Status DC Diphenhydramine HCl (Benadryl) 25 mg Q4H PRN PO SEE LABEL COMMENTS; Start 12/08 at 17:00; Stop 12/09/16 at 16:59; Status DC Furosemide (Lasix Inj) 20 mg ONCE ONCE IV Last administered on 12/09/16 14:08 ; Start 12/08/16 at 17:00; Stop 12/08/16 at 17:02; Status DC Rifampin (Rifampin) 300 mg Q12HR PO Last administered on 12/26/16 21:09; Start 12/09/16 at 21:00 Ganciclovir Sodium 81 mg/ Sodium Chloride 101.62 ml @ 101.62 mls/hr TuThSa IV Last administered on 12/24/16 15:58; Start 12/10/16 at 12:45; Stop 12/24/16 at 23:00; Status DC Bupivacaine HCl/ Epinephrine Bitart (Sensorcaine-Epinephrine Pf 0.25% Inj) 10 ml ONCE ONCE INFIL ; Start 12/14/16 at 09:45; Stop 12/14/16 at 10:17; Status DC Sodium Chloride (NS Flush) 2 ml UNSCH PRN IV FLUSH FLUSH AFTER USING IV ACCESS ; Start 12/14/16 at 10:45 Sodium Chloride (NS Flush) 2 ml BID IV FLUSH Last administered on 12/26/16 21: 16; Start 12/14/16 at 21:00 Acetaminophen/ Hydrocodone Bitart (Branson 5-325 Mg) 1 tab Q4H PRN PO PAIN SCALE 1 TO 5; Start 12/14/16 at 10:45 Acetaminophen/ Hydrocodone Bitart (Branson 5-325 Mg) 2 tab Q4H PRN PO PAIN SCALE 6 TO 10; Start 12/14/16 at 10:45 Miscellaneous Information (Post-op Orders (for Pharmacy)) STAT ONCE XX Last administered on 12/14/16 10:45; Start 12/14/16 at 10:45; Stop 12/14/16 at 10:46 ; Status DC Miscellaneous Information ALL NURSING DEPARTME... UNSCH PRN .XX SEE LABEL COMMENTS; Start 12/14/16 at 11:30; Stop 12/15/16 at 11:29; Status DC Sodium Biphosphate/ Sodium Phosphate (Fleets Enema (Adult)) 133 ml ONCE ONCE RECTAL Last administered on 12/20/16 09:22; Start 12/20/16 at 09:15; Stop at 09:16; Status DC Influenza Virus Vaccine (Flu (Quadrivalent) Vaccine Inj) 0.5 ml ONCE ONCE IM Last administered on 12/24/16 12:20; Start 12/24/16 at 10:00; Stop 12/24/16 at 10:01; Status DC Naproxen (Naprosyn) 500 mg ONCE ONCE PO Last administered on 12/25/16 01:12; Start 12/25/16 at 01:15; Stop 12/25/16 at 01:16; Status DC Valganciclovir (Valcyte) 450 mg DAILY PO Last administered on 12/26/16 16:36; Start 12/26/16 at 13:45 Side: Right A/P Assessment and Plan Severe sepsis secondary to UTI, pneumonia-resolved AIDS-noncompliance - Status post treatment with Zosyn. Patient is immunocompromised, noncompliant with HAART for the last 2 months. - HSV positive. 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 Blood mycobacterial culture growing acid fast organism. Afebrile. - Continue Levaquin. Continue PCP prophylaxis. Fever, intermittent Management per infectious disease specialist Secondary to drug reaction? Bactrim discontinued 12/22/16 Hold Rifampin if fever persists Per ID may use trial of naproxen for Fevers if no improvement Acute renal failure superimposed on chronic kidney disease stage V - Nephrology following, remains non-oliguric. -Recent kidney biopsy FSGS, with 2 out of 7 Glomeruli sclerosis - HD per nephrology. -Patient would like to have a PD catheter placed HIV/AIDS - CD4 count less than 20. Patient admitted to being noncompliant with HAART meds for the last 2 months. He has been counseled. 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 - Currently on IV Valganciclovir . Oral thrush, improved: Treatment with Diflucan Anemia - Transfused packed red blood cell Continue to monitor H&H Neelima Burgess MD Dec 27, 2016 11:30
[2016-12-27] MEDS ORDERED: SODIUM CHLORIDE 0.9% IV SCH (14:00)
[2016-12-27] MEDS ORDERED: GANCICLOVIR IV SCH (14:00)
[2016-12-27] MEDS: ACETAMINOPHEN 325 MG TAB PO PRN (20:33)
[2016-12-28] VITALS (8 sets, daily range): BP systolic 98–143; BP diastolic 57–84; PULSE 78–118; RESP 16–18; TEMP 97.6–102.7; O2SAT 98–100
[2016-12-28] MEDS: ACETAMINOPHEN 325 MG TAB PO PRN ×2 (05:45→22:31)
--- NOTE | 2016-12-28 09:07 | HHI.PR ---
Subjective Remarks in no distress. no sob,cough, pain. still with on and off fever; T max 102.8. Objective Vitals Vital Signs Date Time Temp Pulse Resp B/P (MAP) Pulse Ox O2 Delivery O2 Flow Rate FiO2 12/28/16 08:01 99.8 107 16 118/76 (90) 98 12/28/16 05:29 102.7 118 16 126/70 (88) 100 12/28/16 00:00 98.3 89 18 98/57 (71) 100 12/27/16 20:00 Room Air 12/27/16 20:00 127 12/27/16 20:00 102.8 125 18 118/67 (84) 100 12/27/16 16:01 99.0 98 16 115/60 (78) 100 12/27/16 13:30 99.0 98 16 115/57 (76) 100 I/O 12/27/16 12/27/16 12/27/16 12/28/16 12/28/16 12/28/16 07:00 15:00 23:00 07:00 15:00 23:00 Intake Total 360 ml 420 ml 240 ml Output Total 200 ml 1300 ml 800 ml 200 ml Balance 160 ml -1300 ml -380 ml 40 ml Intake Oral 360 ml 420 ml 240 ml Output Urine Total 200 ml 800 ml 200 ml Hemodialysis 1300 ml # Bowel Movements 0 1 0 Result Diagram: 12/26/16195312/26/161953 Imaging Last Impressions Gallium Scan Nuclear Medicine 12/19/16 0000 Signed Impressions: Service Date/Time: Monday, December 19, 2016 13:19 - CONCLUSION: Negative for occult inflammatory process. Enzo Isbell MD FACR Upper Extremity Ultrasound 12/07/16 0000 Signed Impressions: Service Date/Time: Wednesday, December 07, 2016 10:11 - CONCLUSION: Venous mapping as above. Enzo Isbell MD FACR Renal Biopsy CT 12/01/16 0600 Signed Impressions: Service Date/Time: November 14:17 - CONCLUSION: Uncomplicated CT guided biopsy. Alexis Adhikari MD Central Venous Line 11/29/16 0000 Signed Impressions: Service Date/Time: Tuesday, November 29, 2016 00:00 - CONCLUSION: Uncomplicated catheter removal. Solitario Diaz MD Catheter Placement X-Ray 11/29/16 0000 Signed Impressions: Service Date/Time: Tuesday, November 29, 2016 13:58 - CONCLUSION: Uncomplicated PermaCath placement as above. Solitario Diaz MD Tumor Localization 11/14/16 0000 Signed Impressions: Service Date/Time: Monday, November 14, 2016 11:38 - CONCLUSION: Negative scan Solitario Diaz MD Chest X-Ray 11/13/16 0000 Signed Impressions: Service Date/Time: Sunday, November 13, 2016 16:02 - CONCLUSION: No acute cardiopulmonary disease. Quincy Medellin MD Renal Ultrasound 11/05/16 0000 Signed Impressions: Service Date/Time: Saturday, November 05, 2016 19:17 - CONCLUSION: Diffusely echogenic kidneys indicating medical renal disease. Dorian Murry MD Abdomen/Pelvis CT 11/05/16 0000 Signed Impressions: Service Date/Time: Saturday, November 05, 2016 17:19 - CONCLUSION: 1. 4 mm calculus in the right renal pelvis/ureteropelvic junction with mild adjacent perinephric/periureteral stranding. No evidence of hydronephrosis. 2. 1 cm round hypodensity in the anterior right mid kidney statistically most likely to represent a cyst. 3. 3.7 cm hypodensity in the right lobe of the liver air the dome of the diaphragm. This finding is nonspecific on noncontrast CT. The most likely etiologies include hemangioma and cyst. It could be further evaluated with ultrasound nonemergent followup MRI of the abdomen. 4. Mild dilated proximal right common iliac artery. Dorian Murry MD Objective Remarks GENERAL: This is a well-nourished, well-developed patient, in no apparent distress. CARDIOVASCULAR: Regular rate and regular rhythm without murmurs, gallops, or rubs. RESPIRATORY: Clear to auscultation. Breath sounds equal bilaterally. No wheezes , rales, or rhonchi. GASTROINTESTINAL: Abdomen soft, non-tender, nondistended. Normal, active bowel sounds MUSCULOSKELETAL: Extremities without clubbing, cyanosis, or edema. NEURO: Alert & Oriented x4 to person, place, time, situation. Moves all ext x4 Procedures 11/14/16 hemodialysis catheter placement, right internal jugular 12/14 PD cath placement Medications and IVs Current Medications Sodium Chloride 1,000 ml @ 1,000 mls/hr Q1H ONCE IV Last administered on 14:25; Start 11/05/16 at 13:54; Stop 11/05/16 at 14:53; Status DC Sodium Chloride 1,000 ml @ 1,000 mls/hr Q1H ONCE IV Last administered on 15:12; Start 11/05/16 at 13:54; Stop 11/05/16 at 14:53; Status DC Sodium Chloride 100 ml @ 1,000 mls/hr Q6M ONCE IV Last administered on 15:32; Start 11/05/16 at 13:54; Stop 11/05/16 at 13:59; Status DC Vancomycin HCl 1050 mg/Sodium Chloride 260.5 ml @ 250 mls/hr ONCE ONCE IV Last administered on 11/05/16 15:06; Start 11/05/16 at 14:00; Stop 11/05/16 at 15:02; Status DC Piperacillin Sod/ Tazobactam Sod 50 ml @ 100 mls/hr ONCE ONCE IV Last administered on 11/05/16 16:38; Start 11/05/16 at 14:00; Stop 11/05/16 at 14:29 ; Status DC Acetaminophen (Tylenol) 1,000 mg ONCE ONCE PO Last administered on 11/05/16 16:38; Start 11/05/16 at 15:45; Stop 11/05/16 at 15:46; Status DC Abacavir Sulfate (Ziagen) 300 mg BID PO ; Start 11/05/16 at 21:00; Stop at 21:00; Status DC Lamivudine (Epivir) 150 mg BID PO ; Start 11/05/16 at 21:00; Stop 11/05/16 at 21 :00; Status DC Lopinavir/ Ritonavir (Kaletra 200-50 Mg) 1 tab BID PO ; Start 11/05/16 at 21:00 ; Stop 11/05/16 at 21:00; Status DC Pharmacy Profile Note 0 ml @ 0 mls/hr UNSCH OTHER ; Start 11/05/16 at 16:15; Stop 11/08/16 at 09:10; Status DC Piperacillin Sod/ Tazobactam Sod 50 ml @ 100 mls/hr Q8H IV Last administered on 11/09/16 16:35; Start 11/06/16 at 00:00; Stop 11/09/16 at 17:24; Status DC Sodium Chloride 1,000 ml @ 83 mls/hr Q12H3M IV Last administered on 11/09/16 05:17; Start 11/05/16 at 17:00; Stop 11/09/16 at 16:19; Status DC Sodium Chloride (NS Flush) 2 ml UNSCH PRN IV FLUSH FLUSH AFTER USING IV ACCESS ; Start 11/05/16 at 16:15 Sodium Chloride (NS Flush) 2 ml BID IV FLUSH Last administered on 12/14/16 07: 26; Start 11/05/16 at 21:00; Stop 12/14/16 at 10:39; Status DC Acetaminophen (Tylenol) 650 mg Q4H PRN PO TEMP > 100.4 Last administered on 05:45; Start 11/05/16 at 16:15 Ondansetron HCl (Zofran Inj) 4 mg Q6H PRN IVP NAUSEA OR VOMITING Last administered on 12/22/16 21:14; Start 11/05/16 at 16:15 Heparin Sodium (Porcine) (Heparin Inj) 5,000 units Q12H SQ Last administered on 12/08/16 18:16; Start 11/05/16 at 17:00; Status Future Hold Naloxone HCl (Narcan Inj) 0.4 mg UNSCH PRN IV SEE LABEL COMMENTS; Start at 16:15 Senna/Docusate Sodium (Dee-Colace) 1 tab BID PO Last administered on 09:35; Start 11/05/16 at 21:00 Magnesium Hydroxide (Milk Of Magnesia Liq) 30 ml Q12H PRN PO MILD - MODERATE CONSTIPATION; Start 11/05/16 at 16:15 Sennosides (Senokot) 17.2 mg Q12H PRN PO MODERATE - SEVERE CONSTIPATION; Start 11/05/16 at 16:15 Bisacodyl (Dulcolax Supp) 10 mg DAILY PRN RECTAL SEVERE CONSITIPATION; Start at 16:15 Lactulose (Lactulose Liq) 30 ml DAILY PRN PO SEVERE CONSITIPATION; Start at 16:15 Acetaminophen/ Hydrocodone Bitart ([place] 7.5-325 Mg) 1 tab Q4H PRN PO PAIN SCALE 4 TO 10; Start 11/05/16 at 16:15; Stop 12/14/16 at 10:38; Status DC Nystatin (Mycostatin Liq) 5 ml QID SWISH-SWAL Last administered on 11/26/16 21 :39; Start 11/05/16 at 18:00; Stop 11/27/16 at 13:26; Status DC Vancomycin HCl 1000 mg/Sodium Chloride 250 ml @ 250 mls/hr ONCE ONCE IV Last administered on 11/07/16 11:27; Start 11/07/16 at 12:00; Stop 11/07/16 at 12:59 ; Status DC Valacyclovir HCl (Valtrex) 500 mg Q8HR PO Last administered on 11/15/16 20:39 ; Start 11/08/16 at 09:15; Stop 11/15/16 at 23:00; Status DC Sodium Bicarbonate (Sodium Bicarbonate) 650 mg Q12HR PO Last administered on 07:49; Start 11/09/16 at 21:00; Stop 11/16/16 at 16:54; Status DC Ceftriaxone Sodium 2000 mg/ Sodium Chloride 100 ml @ 200 mls/hr Q24H IV Last administered on 11/21/16 15:59; Start 11/09/16 at 18:00; Stop 11/21/16 at 16:39 ; Status DC Metoprolol Tartrate (Lopressor) 12.5 mg Q12HR PO Last administered on 10:02; Start 11/10/16 at 18:00; Stop 11/13/16 at 14:05; Status DC Levofloxacin (Levaquin) 250 mg Q48H PO Last administered on 11/15/16 17:57; Start 11/11/16 at 16:00; Stop 11/16/16 at 10:23; Status DC Azithromycin (Zithromax) 250 mg DAILY PO Last administered on 11/21/16 08:41; Start 11/11/16 at 15:15; Stop 11/21/16 at 16:45; Status DC Sodium Bicarbonate 75 meq/Sodium Chloride 1,075 ml @ 75 mls/hr [id number] IV Last administered on 11/16/16 00:00; Start 11/12/16 at 21:00; Stop 11/16/16 at 06:05; Status DC Sodium Chloride 250 ml @ 15 mls/hr ONCE ONCE IV ; Start 11/13/16 at 06:00; Stop 11/13/16 at 22:39; Status DC Metoprolol Tartrate (Lopressor) 25 mg Q12HR PO Last administered on 11/16/16 07:49; Start 11/13/16 at 21:00; Stop 11/16/16 at 16:54; Status DC Metoprolol Tartrate (Lopressor) 12.5 mg ONCE ONCE PO Last administered on 11/13 16:16; Start 11/13/16 at 14:30; Stop 11/13/16 at 14:31; Status DC Miscellaneous (Pill Splitter) 1 ea UNSCH PRN OTHER SEE LABEL COMMENTS; Start at 14:30 Sodium Chloride 1,000 ml @ 0 mls/hr Q0M PRN IV For Prime & Rinse Back Last administered on 12/22/16 09:53; Start 11/13/16 at 17:02 Heparin Sodium (Porcine) (Heparin Inj) 8,000 units UNSCH PRN IVF WITH DIALYSIS Last administered on 12/06/16 11:10; Start 11/13/16 at 17:15 Sodium Chloride 1,000 ml @ 200 mls/hr Q5H PRN IV WITH DIALYSIS; Start 11/13/16 at 17:02 Sodium Chloride 1,000 ml @ 0 mls/hr Q0M PRN IV WITH DIALYSIS; Start 11/13/16 at 17:02 Mannitol (Mannitol Inj) 12.5 gm UNSCH PRN IV WITH DIALYSIS; Start 11/13/16 at 17:15 Albumin Human (Albumin 25% Inj) 25 gm UNSCH PRN IV WITH DIALYSIS Last administered on 12/27/16 09:31; Start 11/13/16 at 17:15 Sodium Chloride (NS Flush) 5 ml UNSCH PRN IV FLUSH WITH DIALYSIS Last administered on 12/17/16 10:57; Start 11/13/16 at 17:15 Heparin Sodium (Porcine) (Heparin Inj) UNSCH PRN .XX WITH DIALYSIS Last administered on 12/27/16 11:06; Start 11/13/16 at 17:15 Gentamicin Sulfate (Gentamicin (Dialysis) Inj) 20 mg UNSCH PRN IV WITH DIALYSIS Last administered on 12/27/16 11:06; Start 11/13/16 at 17:15 Ondansetron HCl (Zofran Inj) 4 mg UNSCH PRN IV WITH DIALYSIS Last administered on 12/09/16 20:25; Start 11/13/16 at 17:15 Acetaminophen (Tylenol) 650 mg UNSCH PRN PO for headach, pain, temp > 101F Last administered on 11/21/16 12:27; Start 11/13/16 at 17:15 Diphenhydramine HCl (Benadryl) 25 mg UNSCH PRN PO for hives/itching/anaphylaxis ; Start 11/13/16 at 17:15 Nitroglycerin (Nitrostat Sl) 0.4 mg UNSCH PRN SL CHEST PAIN; Start 11/13/16 at 17:15 Clonidine (Catapres) 0.1 mg UNSCH PRN PO for BP > 170/100 X 2 readings Last administered on 12/08/16 13:25; Start 11/13/16 at 17:15 Gelatin (Gelfoam 12 Mm/7 Mm Top) 1 foam UNSCH PRN TOP SEE LABEL COMMENTS; Start 11/13/16 at 17:15 Heparin Sodium (Porcine) (*HEPARIN INJ Periprocedural ONLY) 10,000 units STK- MED ONCE .ROUTE Last administered on 11/14/16 11:29; Start 11/14/16 at 11:26; Stop 11/14/16 at 11:27; Status DC Sodium Chloride (NS Flush) UNSCH PRN IVF SEE PROTOCOL; Start 11/14/16 at 11:45 ; Stop 11/29/16 at 19:51; Status DC Heparin Sodium (Porcine) (Heparin Inj) UNSCH PRN IV FLUSH SEE PROTOCOL Last administered on 11/29/16 10:25; Start 11/14/16 at 11:45; Stop 11/29/16 at 19:51; Status DC Potassium Bicarb/ Potassium Chloride (K-Lyte Cl Eff) 50 meq ONCE ONCE PO Last administered on 11/16/16 06:37; Start 11/16/16 at 06:00; Stop 11/16/16 at 06:02; Status DC Potassium Chloride 100 ml @ 50 mls/hr Q2H IV Last administered on 11/16/16 07 :49; Start 11/16/16 at 06:00; Stop 11/16/16 at 10:04; Status DC Levofloxacin (Levaquin) 250 mg Q24H PO Last administered on 12/07/16 16:24; Start 11/16/16 at 16:00; Stop 12/08/16 at 12:55; Status DC Metoprolol Tartrate (Lopressor) 50 mg Q12HR PO Last administered on 12/02/16 08 :53; Start 11/16/16 at 21:00; Status Future Hold Valacyclovir HCl (Valtrex) 500 mg DAILY PO Last administered on 11/22/16 08:36 ; Start 11/17/16 at 10:45; Stop 11/22/16 at 08:59; Status DC Amlodipine Besylate (Norvasc) 5 mg DAILY PO Last administered on 12/02/16 08:53 ; Start 11/19/16 at 12:00; Status Future Hold Ethambutol HCl (Myambutol) 800 mg DAILY PO Last administered on 12/03/16 14:22 ; Start 11/21/16 at 18:00; Stop 12/03/16 at 16:35; Status DC Clarithromycin (Biaxin) 500 mg Q12HR PO Last administered on 12/27/16 20:33; Start 11/21/16 at 21:00 Acyclovir (Zovirax) 400 mg Q12HR PO Last administered on 12/03/16 14:22; Start 11/23/16 at 12:30; Stop 12/03/16 at 18:16; Status DC Trimethoprim/ Sulfamethoxazole (Bactrim Ds 800-160 Mg) 1 tab MoWeFr@09 PO Last administered on 12/21/16 09:33; Start 11/25/16 at 09:00; Stop 12/22/16 at 14:14 ; Status DC Fluconazole (Diflucan) 200 mg ONCE ONCE PO Last administered on 11/26/16 12:46 ; Start 11/26/16 at 07:45; Stop 11/26/16 at 07:46; Status DC Fluconazole (Diflucan) 100 mg DAILY PO Last administered on 12/09/16 10:19; Start 11/27/16 at 09:00; Stop 12/09/16 at 15:27; Status DC Fentanyl Citrate (fentaNYL INJ) 100 mcg STK-MED ONCE .ROUTE Last administered on 11/29/16 13:50; Start 11/29/16 at 13:50; Stop 11/29/16 at 13:51; Status DC Midazolam HCl (Versed Inj) 2 mg STK-MED ONCE .ROUTE Last administered on 13:50; Start 11/29/16 at 13:50; Stop 11/29/16 at 13:51; Status DC Midazolam HCl (Versed Inj) 2 mg STK-MED ONCE .ROUTE ; Start 11/29/16 at 13:50; Stop 11/29/16 at 13:51; Status DC Fentanyl Citrate (fentaNYL INJ) 100 mcg STK-MED ONCE .ROUTE ; Start 11/29/16 at 13:51; Stop 11/29/16 at 13:52; Status DC Heparin Sodium (Porcine) (*HEPARIN INJ Periprocedural ONLY) 10,000 units STK- MED ONCE .ROUTE Last administered on 11/29/16 14:08; Start 11/29/16 at 14:08; Stop 11/29/16 at 14:09; Status DC Lidocaine/ Epinephrine (Xylocaine-Epi 2%-1:100,000 Inj) 20 ml STK-MED ONCE .ROUTE ; Start 11/29/16 at 14:09; Stop 11/29/16 at 14:10; Status DC Lidocaine/ Epinephrine (Xylocaine-Epi 2%-1:100,000 Inj) 20 ml STK-MED ONCE .ROUTE Last administered on 11/29/16 14:10; Start 11/29/16 at 14:10; Stop at 14:11; Status DC Sodium Chloride (NS Flush) UNSCH PRN IVF SEE PROTOCOL; Start 11/29/16 at 18:15 Heparin Sodium (Porcine) (Heparin Inj) UNSCH PRN IV FLUSH SEE PROTOCOL Last administered on 12/06/16 10:15; Start 11/29/16 at 18:15 Fentanyl Citrate (fentaNYL INJ) 100 mcg STK-MED ONCE .ROUTE Last administered on 12/01/16 13:16; Start 12/01/16 at 13:16; Stop 12/01/16 at 13:17; Status DC Midazolam HCl (Versed Inj) 2 mg STK-MED ONCE .ROUTE Last administered on 13:16; Start 12/01/16 at 13:16; Stop 12/01/16 at 13:17; Status DC Lidocaine HCl (Xylocaine 1% Inj) 20 ml STK-MED ONCE .ROUTE Last administered on 12/01/16 13:45; Start 12/01/16 at 13:45; Stop 12/01/16 at 13:46; Status DC Sodium Bicarbonate 50 ml @ As Directed STK-MED ONCE .ROUTE Last administered on 12/01/16 13:45; Start 12/01/16 at 13:45; Stop 12/01/16 at 13:46; Status DC Lactobacillus Acidophilus (Lactinex) 1 tab Q12HR PO Last administered on 09:00; Start 12/02/16 at 10:00 Pharmacy Profile Note 0 ml @ 0 mls/hr UNSCH OTHER ; Start 12/03/16 at 17:00; Status Cancel Ethambutol HCl (Myambutol) 800 mg DAILY PO Last administered on 12/26/16 09:00 ; Start 12/04/16 at 09:00 Ganciclovir Sodium 81 mg/ Sodium Chloride 101.62 ml @ 101.62 mls/hr WITH DIALYSIS IV ; Start 12/04/16 at 09:00; Stop 12/10/16 at 12:45; Status DC Ganciclovir Sodium 81 mg/ Sodium Chloride 101.62 ml @ 101.62 mls/hr ONCE ONCE IV Last administered on 12/03/16 22:38; Start 12/03/16 at 21:00; Stop 12/03/16 at 21:59; Status DC Ganciclovir Sodium 41 mg/ Sodium Chloride 100.82 ml @ 100.82 mls/hr TuThSa IV ; Start 12/27/16 at 14:00; Stop 12/27/16 at 14:00; Status DC Epoetin Abel (Epogen Inj) 10,000 units UNSCH PRN IV WITH DIALYSIS Last administered on 12/27/16 11:06; Start 12/06/16 at 09:30 Levofloxacin (Levaquin) 250 mg Q48H PO Last administered on 12/08/16 18:16; Start 12/08/16 at 16:00; Stop 12/09/16 at 15:27; Status DC Sodium Chloride 250 ml @ 15 mls/hr ONCE ONCE IV Last administered on 10:21; Start 12/08/16 at 17:00; Stop 12/09/16 at 09:39; Status DC Acetaminophen (Tylenol) 650 mg Q4H PRN PO SEE LABEL COMMENTS; Start 12/08/16 at 17:00; Stop 12/09/16 at 16:59; Status DC Diphenhydramine HCl (Benadryl) 25 mg Q4H PRN PO SEE LABEL COMMENTS; Start 12/08 at 17:00; Stop 12/09/16 at 16:59; Status DC Furosemide (Lasix Inj) 20 mg ONCE ONCE IV Last administered on 12/09/16 14:08 ; Start 12/08/16 at 17:00; Stop 12/08/16 at 17:02; Status DC Rifampin (Rifampin) 300 mg Q12HR PO Last administered on 12/27/16 20:33; Start 12/09/16 at 21:00 Ganciclovir Sodium 81 mg/ Sodium Chloride 101.62 ml @ 101.62 mls/hr TuThSa IV Last administered on 12/24/16 15:58; Start 12/10/16 at 12:45; Stop 12/24/16 at 23:00; Status DC Bupivacaine HCl/ Epinephrine Bitart (Sensorcaine-Epinephrine Pf 0.25% Inj) 10 ml ONCE ONCE INFIL ; Start 12/14/16 at 09:45; Stop 12/14/16 at 10:17; Status DC Sodium Chloride (NS Flush) 2 ml UNSCH PRN IV FLUSH FLUSH AFTER USING IV ACCESS ; Start 12/14/16 at 10:45 Sodium Chloride (NS Flush) 2 ml BID IV FLUSH Last administered on 12/27/16 20: 46; Start 12/14/16 at 21:00 Acetaminophen/ Hydrocodone Bitart ([place] 5-325 Mg) 1 tab Q4H PRN PO PAIN SCALE 1 TO 5; Start 12/14/16 at 10:45 Acetaminophen/ Hydrocodone Bitart ([place] 5-325 Mg) 2 tab Q4H PRN PO PAIN SCALE 6 TO 10; Start 12/14/16 at 10:45 Miscellaneous Information (Post-op Orders (for Pharmacy)) STAT ONCE XX Last administered on 12/14/16 10:45; Start 12/14/16 at 10:45; Stop 12/14/16 at 10:46 ; Status DC Miscellaneous Information ALL NURSING DEPARTME... UNSCH PRN .XX SEE LABEL COMMENTS; Start 12/14/16 at 11:30; Stop 12/15/16 at 11:29; Status DC Sodium Biphosphate/ Sodium Phosphate (Fleets Enema (Adult)) 133 ml ONCE ONCE RECTAL Last administered on 12/20/16 09:22; Start 12/20/16 at 09:15; Stop at 09:16; Status DC Influenza Virus Vaccine (Flu (Quadrivalent) Vaccine Inj) 0.5 ml ONCE ONCE IM Last administered on 12/24/16 12:20; Start 12/24/16 at 10:00; Stop 12/24/16 at 10:01; Status DC Naproxen (Naprosyn) 500 mg ONCE ONCE PO Last administered on 12/25/16 01:12; Start 12/25/16 at 01:15; Stop 12/25/16 at 01:16; Status DC Valganciclovir (Valcyte) 450 mg DAILY PO Last administered on 12/26/16 16:36; Start 12/26/16 at 13:45 Side: Right A/P Assessment and Plan Severe sepsis secondary to UTI, pneumonia-resolved AIDS-noncompliance - Status post treatment with Zosyn. Patient is immunocompromised, noncompliant with HAART for the last 2 months. - HSV positive. 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 Blood mycobacterial culture growing acid fast organism. - Continue Levaquin. Continue PCP prophylaxis. Fever, intermittent Management per infectious disease specialist Secondary to drug reaction? Bactrim discontinued 12/22/16 Hold Rifampin if fever persists Per ID may use trial of naproxen for Fevers if no improvement Acute renal failure superimposed on chronic kidney disease stage V - Nephrology following, remains non-oliguric. -Recent kidney biopsy FSGS, with 2 out of 7 Glomeruli sclerosis - HD per nephrology. -Patient would like to have a PD catheter placed HIV/AIDS - CD4 count less than 20. Patient admitted to being noncompliant with HAART meds for the last 2 months. He has been counseled. 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 - Currently on IV Valganciclovir . Oral thrush, improved: Treatment with Diflucan Anemia - Transfused packed red blood cell Continue to monitor H&H Discharge Planning still with on and off fever. ID following. Neelima Burgess MD Dec 28, 2016 09:07
[2016-12-28] MEDS: CLARITHROMYCIN 500 MG TAB PO SCH ×2 (10:48→22:34)
[2016-12-28] MEDS: LACTOBACILLUS ACIDOPHILUS TAB PO SCH ×2 (10:48→21:00)
[2016-12-28] MEDS: DOCUSATE SODIUM 50 MG/SENNA 8.6 MG TAB PO SCH ×2 (10:48→21:00)
[2016-12-28] MEDS: RIFAMPIN 150 MG CAP PO SCH ×2 (10:48→21:00)
[2016-12-28] MEDS: ETHAMBUTOL HCL 400 MG TAB PO SCH (10:48)
[2016-12-28] MEDS: SODIUM CHLORIDE 0.9% FLUSH 10 ML FLUSH IV FLUSH SCH ×2 (10:49→22:31)
--- NOTE | 2016-12-28 12:55 | HHI.IDPN ---
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 Vital Signs Date Time Temp Pulse Resp B/P (MAP) Pulse Ox O2 Delivery O2 Flow Rate FiO2 12/28/16 08:01 99.8 107 16 118/76 (90) 98 12/28/16 05:29 102.7 118 16 126/70 (88) 100 12/28/16 00:00 98.3 89 18 98/57 (71) 100 12/27/16 20:00 Room Air 12/27/16 20:00 127 12/27/16 20:00 102.8 125 18 118/67 (84) 100 12/27/16 16:01 99.0 98 16 115/60 (78) 100 12/27/16 13:30 99.0 98 16 115/57 (76) 100 . Laboratory Tests Test 12/26/16 19:54 White Blood Count 4.0 TH/MM3 Red Blood Count 2.73 MIL/MM3 Hemoglobin 7.6 GM/DL Hematocrit 22.9 % Mean Corpuscular Volume 84.0 FL Mean Corpuscular Hemoglobin 27.7 PG Mean Corpuscular Hemoglobin Concent 33.0 % Red Cell Distribution Width 15.0 % Platelet Count 205 TH/MM3 Mean Platelet Volume 9.1 FL CBC Comment AUTO DIFF Differential Total Cells Counted 100 Neutrophils % (Manual) 73 % Band Neutrophils % 15 % Lymphocytes % 1 % Monocytes % 10 % Neutrophils # (Manual) 3.6 TH/MM3 Myelocytes 1 % Differential Comment FINAL DIFF MANUAL Dohle Bodies PRESENT Platelet Estimate NORMAL Platelet Morphology Comment NORMAL Laboratory Tests Test 12/26/16 19:54 Blood Urea Nitrogen 32 MG/DL Creatinine 7.35 MG/DL Random Glucose 105 MG/DL Calcium Level 8.5 MG/DL Sodium Level 133 MEQ/L Potassium Level 3.2 MEQ/L Chloride Level 95 MEQ/L Carbon Dioxide Level 28.2 MEQ/L Anion Gap 10 MEQ/L Estimat Glomerular Filtration Rate 10 ML/MIN Imaging Last Impressions Renal Biopsy CT 12/01/16 0600 Signed Impressions: Service Date/Time: November 14:17 - CONCLUSION: Uncomplicated CT guided biopsy. Alexis Adhikari MD Central Venous Line 11/29/16 0000 Signed Impressions: Service Date/Time: Tuesday, November 29, 2016 00:00 - CONCLUSION: Uncomplicated catheter removal. Solitario Diaz MD Catheter Placement X-Ray 11/29/16 0000 Signed Impressions: Service Date/Time: Tuesday, November 29, 2016 13:58 - CONCLUSION: Uncomplicated PermaCath placement as above. Solitario Diaz MD Tumor Localization 11/14/16 0000 Signed Impressions: Service Date/Time: Monday, November 14, 2016 11:38 - CONCLUSION: Negative scan Solitario Diaz MD Chest X-Ray 11/13/16 0000 Signed Impressions: Service Date/Time: Sunday, November 13, 2016 16:02 - CONCLUSION: No acute cardiopulmonary disease. Quincy Medellin MD Renal Ultrasound 11/05/16 0000 Signed Impressions: Service Date/Time: Saturday, November 05, 2016 19:17 - CONCLUSION: Diffusely echogenic kidneys indicating medical renal disease. Dorian Murry MD Abdomen/Pelvis CT 11/05/16 0000 Signed Impressions: Service Date/Time: Saturday, November 05, 2016 17:19 - CONCLUSION: 1. 4 mm calculus in the right renal pelvis/ureteropelvic junction with mild adjacent perinephric/periureteral stranding. No evidence of hydronephrosis. 2. 1 cm round hypodensity in the anterior right mid kidney statistically most likely to represent a cyst. 3. 3.7 cm hypodensity in the right lobe of the liver air the dome of the diaphragm. This finding is nonspecific on noncontrast CT. The most likely etiologies include hemangioma and cyst. It could be further evaluated with ultrasound nonemergent followup MRI of the abdomen. 4. Mild dilated proximal right common iliac artery. Dorian Murry MD Physical Exam GENERAL: awake and alert, not in respiratory distress. SKIN: Warm and dry. Dry skin EYES: [place] conjunctiva. No petechia or hemorrhage. No scleral icterus. No injection or drainage. EARS, NOSE AND THROAT: Nose without bleeding or purulent nasal discharge. Mucous membranes pink and moist. White coating on tongue NECK: Trachea midline. Supple and not tender, no meningeal signs CARDIOVASCULAR: Regular rate and rhythm. No murmurs, rubs or gallops heard RESPIRATORY: Clear to auscultation. Breath sounds equal bilaterally. No rales , wheezing or rhonchi ABDOMEN: Soft, mild tenderness, not distended, dry dressing over cath. Bowel sounds present and normoactive. No guarding. No rebound. No organomegaly. Has [place] brown non tender nodule on R lateral groin (chronic been there for years, not getting bigger) EXTREMITIES: No clubbing, cyanosis, or edema.No joint effusion, has good ROM. No calf tenderness. Well perfused and warm. BUTTOCK: Ulcers healed NEUROLOGICAL: Awake alert Non-focal PSYCHIATRIC: Normal affect, calm and cooperative. 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
--- NOTE | 2016-12-28 13:15 | HHI.NPPN ---
Subjective History of Present Illness 50-year-old male with past medical history of HIV disease for more than 20 years and history of renal stone who came to the hospital with complaint of back pain. The patient has back pain going on for the last 2 months off and on and he came to the emergency department yesterday with worsening pain. Additional Remarks Patient is alert, no SOB, still spiking fever almost daily, feeling better today. Review of Systems General Constitutional: Fatigue Cardiovascular Cardiac: MIRZA Objective Data Data Vital Signs Date Time Temp Pulse Resp B/P (MAP) Pulse Ox O2 Delivery O2 Flow Rate FiO2 12/28/16 08:01 99.8 107 16 118/76 (90) 98 12/28/16 05:29 102.7 118 16 126/70 (88) 100 12/28/16 00:00 98.3 89 18 98/57 (71) 100 12/27/16 20:00 Room Air 12/27/16 20:00 127 12/27/16 20:00 102.8 125 18 118/67 (84) 100 12/27/16 16:01 99.0 98 16 115/60 (78) 100 12/27/16 13:30 99.0 98 16 115/57 (76) 100 -: 12/26/16195312/26/161953 Physical Exam General Appearance: No Acute Distress, Comfortable Eyes Eye Exam: Pupils Equal Throat Throat Exam: Oral Mucosa [place] & Moist Pulmonary Resp Exam: Breath Sounds Equal, No Distress, Rhonchi, Decreased Bases Cardiology CV Exam: Regular, Normal Sinus Rhythm Gastrointestinal/Abdomen GI Exam: Soft, Non-Tender, Bowel Sounds Present Extremeties Extremities Exam: No Edema Neurologic Neuro Exam: Alert, Awake, Oriented Psychiatric Psych Exam: Appropriate Responses Assessment/Plan Assessment Summary: MIKE/Acute Renal Failure Problem List: (1) Renal failure ICD Codes: N19 - Unspecified kidney failure Status: Acute (2) Sepsis ICD Codes: A41.9 - Sepsis, unspecified organism Status: Acute (3) Open wound of scrotum ICD Codes: S31.30XA - Unspecified open wound of scrotum and testes, initial encounter Status: Acute Plan c/o blurry vision left eye Remain non oliguric. SPEP was negative. Complements normal, other serology also negative. BP is better, on Metoprolol to 50 mg BID. If renal function will not improve, will consider Renal Biopsy once infection is controlled. Fever pattern is better, ID is following. Now on Bactrim, Acyclovir, Clarithromycin and Ethambutol. No improvement in renal function. Possibly has End stage renal disease. Got PermCath. 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 No need to repeat the renal Biopsy as clinically he is showing no improvement, and the with advance HIV , the treatment options are limited, cannot be given immunosuppressive drugs. I discussed this in detail with patient. Now he change his mind and want to go for PD from ID stand point. He understand increase risk of infection due to advance HIV. Has PD catheter done. Now on Valganciclovir, ID following. Gallium scan is negative. HD to continue TTS. On Epogen , follow Hgb. Transfuse as needed. HD to continue, antibiotics as per ID. Problem Qualifiers (1) Renal failure: (2) Sepsis: Kwadwo Shah MD Dec 28, 2016 13:15
[2016-12-29] VITALS (7 sets, daily range): BP systolic 108–134; BP diastolic 63–81; PULSE 75–120; RESP 16–18; TEMP 98.5–102.1; O2SAT 98–100
[2016-12-29] MEDS: DOCUSATE SODIUM 50 MG/SENNA 8.6 MG TAB PO SCH ×2 (09:00→20:10)
[2016-12-29] MEDS: HEPARIN SODIUM - IV 10,000 UNITS/10 ML VIAL IVF PRN (10:30)
[2016-12-29] MEDS: HEPARIN SODIUM - IV 10,000 UNITS/10 ML VIAL PRN (11:05)
[2016-12-29] MEDS: GENTAMICIN SULFATE (DIALYSIS USE ONLY) 20 MG/2 ML VIAL IV PRN (11:05)
[2016-12-29] MEDS: EPOETIN ALFA 10,000 UNITS/ML VIAL IV PRN (11:06)
--- NOTE | 2016-12-29 12:19 | HHI.NPPN ---
Subjective History of Present Illness 50-year-old male with past medical history of HIV disease for more than 20 years and history of renal stone who came to the hospital with complaint of back pain. The patient has back pain going on for the last 2 months off and on and he came to the emergency department yesterday with worsening pain. Additional Remarks Patient is alert, no SOB, seen after HD, no abd. pain, still having fever. Review of Systems General Constitutional: Fatigue Cardiovascular Cardiac: MIRZA Objective Data Data 12/29/16 12/30/16 19:00 07:00 Intake Total 1 ml Balance 1 ml IV Total 1 ml Vital Signs Date Time Temp Pulse Resp B/P (MAP) Pulse Ox O2 Delivery O2 Flow Rate FiO2 12/29/16 07:30 98.6 93 17 116/73 (87) 100 12/29/16 04:00 98.5 93 16 108/71 (83) 99 12/29/16 00:00 102.1 113 16 134/81 (98) 100 12/28/16 20:25 117 12/28/16 20:00 Room Air 12/28/16 20:00 101.1 109 16 128/82 (97) 100 12/28/16 16:01 99.4 102 16 143/84 (103) 100 -: 12/26/16195312/26/161953 Physical Exam General Appearance: No Acute Distress, Comfortable Eyes Eye Exam: Pupils Equal Throat Throat Exam: Oral Mucosa [place] & Moist Pulmonary Resp Exam: Breath Sounds Equal, No Distress, Rhonchi, Decreased Bases Cardiology CV Exam: Regular, Normal Sinus Rhythm Gastrointestinal/Abdomen GI Exam: Soft, Non-Tender, Bowel Sounds Present Extremeties Extremities Exam: No Edema Neurologic Neuro Exam: Alert, Awake, Oriented Psychiatric Psych Exam: Appropriate Responses Assessment/Plan Assessment Summary: MIKE/Acute Renal Failure Problem List: (1) Renal failure ICD Codes: N19 - Unspecified kidney failure Status: Acute (2) Sepsis ICD Codes: A41.9 - Sepsis, unspecified organism Status: Acute (3) Open wound of scrotum ICD Codes: S31.30XA - Unspecified open wound of scrotum and testes, initial encounter Status: Acute Plan c/o blurry vision left eye Remain non oliguric. SPEP was negative. Complements normal, other serology also negative. BP is better, on Metoprolol to 50 mg BID. If renal function will not improve, will consider Renal Biopsy once infection is controlled. Fever pattern is better, ID is following. Now on Bactrim, Acyclovir, Clarithromycin and Ethambutol. No improvement in renal function. Possibly has End stage renal disease. Got PermCath. 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 No need to repeat the renal Biopsy as clinically he is showing no improvement, and the with advance HIV , the treatment options are limited, cannot be given immunosuppressive drugs. I discussed this in detail with patient. Now he change his mind and want to go for PD from ID stand point. He understand increase risk of infection due to advance HIV. Has PD catheter done. Now on Valganciclovir, ID following. Gallium scan is negative. HD to continue TTS. On Epogen , follow Hgb. Transfuse as needed. HD done now, tolerated well. Change PD Catheter dressing. Problem Qualifiers (1) Renal failure: (2) Sepsis: Kwadwo Shah MD Dec 29, 2016 12:19
--- NOTE | 2016-12-29 12:40 | HHI.PR ---
Subjective Remarks having his HD today. resting comfortably with no distress. with on and off fever; Tmax 102.1. Objective Vitals Vital Signs Date Time Temp Pulse Resp B/P (MAP) Pulse Ox O2 Delivery O2 Flow Rate FiO2 12/29/16 07:30 98.6 93 17 116/73 (87) 100 12/29/16 04:00 98.5 93 16 108/71 (83) 99 12/29/16 00:00 102.1 113 16 134/81 (98) 100 12/28/16 20:25 117 12/28/16 20:00 Room Air 12/28/16 20:00 101.1 109 16 128/82 (97) 100 12/28/16 16:01 99.4 102 16 143/84 (103) 100 I/O 12/28/16 12/28/16 12/28/16 12/29/16 12/29/16 12/29/16 07:00 15:00 23:00 07:00 15:00 23:00 Intake Total 240 ml 280 ml 1 ml Output Total 200 ml Balance 40 ml 280 ml 1 ml Intake Oral 240 ml 280 ml IV Total 1 ml Output Urine Total 200 ml # Voids 0 # Bowel Movements 0 0 Result Diagram: 12/26/16195312/26/161953 Imaging Last Impressions Gallium Scan Nuclear Medicine 12/19/16 0000 Signed Impressions: Service Date/Time: Monday, December 19, 2016 13:19 - CONCLUSION: Negative for occult inflammatory process. Enzo Isbell MD FACR Upper Extremity Ultrasound 12/07/16 0000 Signed Impressions: Service Date/Time: Wednesday, December 07, 2016 10:11 - CONCLUSION: Venous mapping as above. Enzo Isbell MD FACR Renal Biopsy CT 12/01/16 0600 Signed Impressions: Service Date/Time: November 14:17 - CONCLUSION: Uncomplicated CT guided biopsy. Alexis Adhikari MD Central Venous Line 11/29/16 0000 Signed Impressions: Service Date/Time: Tuesday, November 29, 2016 00:00 - CONCLUSION: Uncomplicated catheter removal. Solitario Diaz MD Catheter Placement X-Ray 11/29/16 0000 Signed Impressions: Service Date/Time: Tuesday, November 29, 2016 13:58 - CONCLUSION: Uncomplicated PermaCath placement as above. Solitario Diaz MD Tumor Localization 11/14/16 0000 Signed Impressions: Service Date/Time: Monday, November 14, 2016 11:38 - CONCLUSION: Negative scan Solitario Diaz MD Chest X-Ray 11/13/16 0000 Signed Impressions: Service Date/Time: Sunday, November 13, 2016 16:02 - CONCLUSION: No acute cardiopulmonary disease. Quincy Medellin MD Renal Ultrasound 11/05/16 0000 Signed Impressions: Service Date/Time: Saturday, November 05, 2016 19:17 - CONCLUSION: Diffusely echogenic kidneys indicating medical renal disease. Dorian Murry MD Abdomen/Pelvis CT 11/05/16 0000 Signed Impressions: Service Date/Time: Saturday, November 05, 2016 17:19 - CONCLUSION: 1. 4 mm calculus in the right renal pelvis/ureteropelvic junction with mild adjacent perinephric/periureteral stranding. No evidence of hydronephrosis. 2. 1 cm round hypodensity in the anterior right mid kidney statistically most likely to represent a cyst. 3. 3.7 cm hypodensity in the right lobe of the liver air the dome of the diaphragm. This finding is nonspecific on noncontrast CT. The most likely etiologies include hemangioma and cyst. It could be further evaluated with ultrasound nonemergent followup MRI of the abdomen. 4. Mild dilated proximal right common iliac artery. Dorian Murry MD Objective Remarks GENERAL: This is a well-nourished, well-developed patient, in no apparent distress. CARDIOVASCULAR: Regular rate and regular rhythm without murmurs, gallops, or rubs. RESPIRATORY: Clear to auscultation. Breath sounds equal bilaterally. No wheezes , rales, or rhonchi. GASTROINTESTINAL: Abdomen soft, non-tender, nondistended. Normal, active bowel sounds MUSCULOSKELETAL: Extremities without clubbing, cyanosis, or edema. NEURO: Alert & Oriented x4 to person, place, time, situation. Moves all ext x4 Procedures 11/14/16 hemodialysis catheter placement, right internal jugular 12/14 PD cath placement Medications and IVs Current Medications Sodium Chloride 1,000 ml @ 1,000 mls/hr Q1H ONCE IV Last administered on t 14:25; Start 11/05/16 at 13:54; Stop 11/05/16 at 14:53; Status DC Sodium Chloride 1,000 ml @ 1,000 mls/hr Q1H ONCE IV Last administered on 15:12; Start 11/05/16 at 13:54; Stop 11/05/16 at 14:53; Status DC Sodium Chloride 100 ml @ 1,000 mls/hr Q6M ONCE IV Last administered on 15:32; Start 11/05/16 at 13:54; Stop 11/05/16 at 13:59; Status DC Vancomycin HCl 1050 mg/Sodium Chloride 260.5 ml @ 250 mls/hr ONCE ONCE IV Last administered on 11/05/16 15:06; Start 11/05/16 at 14:00; Stop 11/05/16 at 15:02; Status DC Piperacillin Sod/ Tazobactam Sod 50 ml @ 100 mls/hr ONCE ONCE IV Last administered on 11/05/16 16:38; Start 11/05/16 at 14:00; Stop 11/05/16 at 14:29 ; Status DC Acetaminophen (Tylenol) 1,000 mg ONCE ONCE PO Last administered on 11/05/16 16:38; Start 11/05/16 at 15:45; Stop 11/05/16 at 15:46; Status DC Abacavir Sulfate (Ziagen) 300 mg BID PO ; Start 11/05/16 at 21:00; Stop at 21:00; Status DC Lamivudine (Epivir) 150 mg BID PO ; Start 11/05/16 at 21:00; Stop 11/05/16 at 21 :00; Status DC Lopinavir/ Ritonavir (Kaletra 200-50 Mg) 1 tab BID PO ; Start 11/05/16 at 21:00 ; Stop 11/05/16 at 21:00; Status DC Pharmacy Profile Note 0 ml @ 0 mls/hr UNSCH OTHER ; Start 11/05/16 at 16:15; Stop 11/08/16 at 09:10; Status DC Piperacillin Sod/ Tazobactam Sod 50 ml @ 100 mls/hr Q8H IV Last administered on 11/09/16 16:35; Start 11/06/16 at 00:00; Stop 11/09/16 at 17:24; Status DC Sodium Chloride 1,000 ml @ 83 mls/hr Q12H3M IV Last administered on 11/09/16 05:17; Start 11/05/16 at 17:00; Stop 11/09/16 at 16:19; Status DC Sodium Chloride (NS Flush) 2 ml UNSCH PRN IV FLUSH FLUSH AFTER USING IV ACCESS ; Start 11/05/16 at 16:15 Sodium Chloride (NS Flush) 2 ml BID IV FLUSH Last administered on 12/14/16 07: 26; Start 11/05/16 at 21:00; Stop 12/14/16 at 10:39; Status DC Acetaminophen (Tylenol) 650 mg Q4H PRN PO TEMP > 100.4 Last administered on 22:31; Start 11/05/16 at 16:15 Ondansetron HCl (Zofran Inj) 4 mg Q6H PRN IVP NAUSEA OR VOMITING Last administered on 12/22/16 21:14; Start 11/05/16 at 16:15 Heparin Sodium (Porcine) (Heparin Inj) 5,000 units Q12H SQ Last administered on 12/08/16 18:16; Start 11/05/16 at 17:00; Status Future Hold Naloxone HCl (Narcan Inj) 0.4 mg UNSCH PRN IV SEE LABEL COMMENTS; Start at 16:15 Senna/Docusate Sodium (Dee-Colace) 1 tab BID PO Last administered on 10:48; Start 11/05/16 at 21:00 Magnesium Hydroxide (Milk Of Magnesia Liq) 30 ml Q12H PRN PO MILD - MODERATE CONSTIPATION; Start 11/05/16 at 16:15 Sennosides (Senokot) 17.2 mg Q12H PRN PO MODERATE - SEVERE CONSTIPATION; Start 11/05/16 at 16:15 Bisacodyl (Dulcolax Supp) 10 mg DAILY PRN RECTAL SEVERE CONSITIPATION; Start at 16:15 Lactulose (Lactulose Liq) 30 ml DAILY PRN PO SEVERE CONSITIPATION; Start at 16:15 Acetaminophen/ Hydrocodone Bitart (Hettick 7.5-325 Mg) 1 tab Q4H PRN PO PAIN SCALE 4 TO 10; Start 11/05/16 at 16:15; Stop 12/14/16 at 10:38; Status DC Nystatin (Mycostatin Liq) 5 ml QID SWISH-SWAL Last administered on 11/26/16 21 :39; Start 11/05/16 at 18:00; Stop 11/27/16 at 13:26; Status DC Vancomycin HCl 1000 mg/Sodium Chloride 250 ml @ 250 mls/hr ONCE ONCE IV Last administered on 11/07/16 11:27; Start 11/07/16 at 12:00; Stop 11/07/16 at 12:59 ; Status DC Valacyclovir HCl (Valtrex) 500 mg Q8HR PO Last administered on 11/15/16 20:39 ; Start 11/08/16 at 09:15; Stop 11/15/16 at 23:00; Status DC Sodium Bicarbonate (Sodium Bicarbonate) 650 mg Q12HR PO Last administered on 07:49; Start 11/09/16 at 21:00; Stop 11/16/16 at 16:54; Status DC Ceftriaxone Sodium 2000 mg/ Sodium Chloride 100 ml @ 200 mls/hr Q24H IV Last administered on 11/21/16 15:59; Start 11/09/16 at 18:00; Stop 11/21/16 at 16:39 ; Status DC Metoprolol Tartrate (Lopressor) 12.5 mg Q12HR PO Last administered on 10:02; Start 11/10/16 at 18:00; Stop 11/13/16 at 14:05; Status DC Levofloxacin (Levaquin) 250 mg Q48H PO Last administered on 11/15/16 17:57; Start 11/11/16 at 16:00; Stop 11/16/16 at 10:23; Status DC Azithromycin (Zithromax) 250 mg DAILY PO Last administered on 11/21/16 08:41; Start 11/11/16 at 15:15; Stop 11/21/16 at 16:45; Status DC Sodium Bicarbonate 75 meq/Sodium Chloride 1,075 ml @ 75 mls/hr [id number] IV Last administered on 11/16/16 00:00; Start 11/12/16 at 21:00; Stop 11/16/16 at 06:05; Status DC Sodium Chloride 250 ml @ 15 mls/hr ONCE ONCE IV ; Start 11/13/16 at 06:00; Stop 11/13/16 at 22:39; Status DC Metoprolol Tartrate (Lopressor) 25 mg Q12HR PO Last administered on 11/16/16 07:49; Start 11/13/16 at 21:00; Stop 11/16/16 at 16:54; Status DC Metoprolol Tartrate (Lopressor) 12.5 mg ONCE ONCE PO Last administered on 11/13 16:16; Start 11/13/16 at 14:30; Stop 11/13/16 at 14:31; Status DC Miscellaneous (Pill Splitter) 1 ea UNSCH PRN OTHER SEE LABEL COMMENTS; Start at 14:30 Sodium Chloride 1,000 ml @ 0 mls/hr Q0M PRN IV For Prime & Rinse Back Last administered on 12/22/16 09:53; Start 11/13/16 at 17:02 Heparin Sodium (Porcine) (Heparin Inj) 8,000 units UNSCH PRN IVF WITH DIALYSIS Last administered on 12/29/16 10:30; Start 11/13/16 at 17:15 Sodium Chloride 1,000 ml @ 200 mls/hr Q5H PRN IV WITH DIALYSIS; Start 11/13/16 at 17:02 Sodium Chloride 1,000 ml @ 0 mls/hr Q0M PRN IV WITH DIALYSIS; Start 11/13/16 at 17:02 Mannitol (Mannitol Inj) 12.5 gm UNSCH PRN IV WITH DIALYSIS; Start 11/13/16 at 17:15 Albumin Human (Albumin 25% Inj) 25 gm UNSCH PRN IV WITH DIALYSIS Last administered on 12/27/16 09:31; Start 11/13/16 at 17:15 Sodium Chloride (NS Flush) 5 ml UNSCH PRN IV FLUSH WITH DIALYSIS Last administered on 12/17/16 10:57; Start 11/13/16 at 17:15 Heparin Sodium (Porcine) (Heparin Inj) UNSCH PRN .XX WITH DIALYSIS Last administered on 12/29/16 11:05; Start 11/13/16 at 17:15 Gentamicin Sulfate (Gentamicin (Dialysis) Inj) 20 mg UNSCH PRN IV WITH DIALYSIS Last administered on 12/29/16 11:05; Start 11/13/16 at 17:15 Ondansetron HCl (Zofran Inj) 4 mg UNSCH PRN IV WITH DIALYSIS Last administered on 12/09/16 20:25; Start 11/13/16 at 17:15 Acetaminophen (Tylenol) 650 mg UNSCH PRN PO for headach, pain, temp > 101F Last administered on 11/21/16 12:27; Start 11/13/16 at 17:15 Diphenhydramine HCl (Benadryl) 25 mg UNSCH PRN PO for hives/itching/anaphylaxis ; Start 11/13/16 at 17:15 Nitroglycerin (Nitrostat Sl) 0.4 mg UNSCH PRN SL CHEST PAIN; Start 11/13/16 at 17:15 Clonidine (Catapres) 0.1 mg UNSCH PRN PO for BP > 170/100 X 2 readings Last administered on 12/08/16 13:25; Start 11/13/16 at 17:15 Gelatin (Gelfoam 12 Mm/7 Mm Top) 1 foam UNSCH PRN TOP SEE LABEL COMMENTS; Start 11/13/16 at 17:15 Heparin Sodium (Porcine) (*HEPARIN INJ Periprocedural ONLY) 10,000 units STK- MED ONCE .ROUTE Last administered on 11/14/16 11:29; Start 11/14/16 at 11:26; Stop 11/14/16 at 11:27; Status DC Sodium Chloride (NS Flush) UNSCH PRN IVF SEE PROTOCOL; Start 11/14/16 at 11:45 ; Stop 11/29/16 at 19:51; Status DC Heparin Sodium (Porcine) (Heparin Inj) UNSCH PRN IV FLUSH SEE PROTOCOL Last administered on 11/29/16 10:25; Start 11/14/16 at 11:45; Stop 11/29/16 at 19:51; Status DC Potassium Bicarb/ Potassium Chloride (K-Lyte Cl Eff) 50 meq ONCE ONCE PO Last administered on 11/16/16 06:37; Start 11/16/16 at 06:00; Stop 11/16/16 at 06:02; Status DC Potassium Chloride 100 ml @ 50 mls/hr Q2H IV Last administered on 11/16/16 07 :49; Start 11/16/16 at 06:00; Stop 11/16/16 at 10:04; Status DC Levofloxacin (Levaquin) 250 mg Q24H PO Last administered on 12/07/16 16:24; Start 11/16/16 at 16:00; Stop 12/08/16 at 12:55; Status DC Metoprolol Tartrate (Lopressor) 50 mg Q12HR PO Last administered on 12/02/16 08 :53; Start 11/16/16 at 21:00; Status Future Hold Valacyclovir HCl (Valtrex) 500 mg DAILY PO Last administered on 11/22/16 08:36 ; Start 11/17/16 at 10:45; Stop 11/22/16 at 08:59; Status DC Amlodipine Besylate (Norvasc) 5 mg DAILY PO Last administered on 12/02/16 08:53 ; Start 11/19/16 at 12:00; Status Future Hold Ethambutol HCl (Myambutol) 800 mg DAILY PO Last administered on 12/03/16 14:22 ; Start 11/21/16 at 18:00; Stop 12/03/16 at 16:35; Status DC Clarithromycin (Biaxin) 500 mg Q12HR PO Last administered on 12/28/16 22:34; Start 11/21/16 at 21:00 Acyclovir (Zovirax) 400 mg Q12HR PO Last administered on 12/03/16 14:22; Start 11/23/16 at 12:30; Stop 12/03/16 at 18:16; Status DC Trimethoprim/ Sulfamethoxazole (Bactrim Ds 800-160 Mg) 1 tab MoWeFr@09 PO Last administered on 12/21/16 09:33; Start 11/25/16 at 09:00; Stop 12/22/16 at 14:14 ; Status DC Fluconazole (Diflucan) 200 mg ONCE ONCE PO Last administered on 11/26/16 12:46 ; Start 11/26/16 at 07:45; Stop 11/26/16 at 07:46; Status DC Fluconazole (Diflucan) 100 mg DAILY PO Last administered on 12/09/16 10:19; Start 11/27/16 at 09:00; Stop 12/09/16 at 15:27; Status DC Fentanyl Citrate (fentaNYL INJ) 100 mcg STK-MED ONCE .ROUTE Last administered on 11/29/16 13:50; Start 11/29/16 at 13:50; Stop 11/29/16 at 13:51; Status DC Midazolam HCl (Versed Inj) 2 mg STK-MED ONCE .ROUTE Last administered on 13:50; Start 11/29/16 at 13:50; Stop 11/29/16 at 13:51; Status DC Midazolam HCl (Versed Inj) 2 mg STK-MED ONCE .ROUTE ; Start 11/29/16 at 13:50; Stop 11/29/16 at 13:51; Status DC Fentanyl Citrate (fentaNYL INJ) 100 mcg STK-MED ONCE .ROUTE ; Start 11/29/16 at 13:51; Stop 11/29/16 at 13:52; Status DC Heparin Sodium (Porcine) (*HEPARIN INJ Periprocedural ONLY) 10,000 units STK- MED ONCE .ROUTE Last administered on 11/29/16 14:08; Start 11/29/16 at 14:08; Stop 11/29/16 at 14:09; Status DC Lidocaine/ Epinephrine (Xylocaine-Epi 2%-1:100,000 Inj) 20 ml STK-MED ONCE .ROUTE ; Start 11/29/16 at 14:09; Stop 11/29/16 at 14:10; Status DC Lidocaine/ Epinephrine (Xylocaine-Epi 2%-1:100,000 Inj) 20 ml STK-MED ONCE .ROUTE Last administered on 11/29/16 14:10; Start 11/29/16 at 14:10; Stop at 14:11; Status DC Sodium Chloride (NS Flush) UNSCH PRN IVF SEE PROTOCOL; Start 11/29/16 at 18:15 Heparin Sodium (Porcine) (Heparin Inj) UNSCH PRN IV FLUSH SEE PROTOCOL Last administered on 12/06/16 10:15; Start 11/29/16 at 18:15 Fentanyl Citrate (fentaNYL INJ) 100 mcg STK-MED ONCE .ROUTE Last administered on 12/01/16 13:16; Start 12/01/16 at 13:16; Stop 12/01/16 at 13:17; Status DC Midazolam HCl (Versed Inj) 2 mg STK-MED ONCE .ROUTE Last administered on 13:16; Start 12/01/16 at 13:16; Stop 12/01/16 at 13:17; Status DC Lidocaine HCl (Xylocaine 1% Inj) 20 ml STK-MED ONCE .ROUTE Last administered on 12/01/16 13:45; Start 12/01/16 at 13:45; Stop 12/01/16 at 13:46; Status DC Sodium Bicarbonate 50 ml @ As Directed STK-MED ONCE .ROUTE Last administered on 12/01/16 13:45; Start 12/01/16 at 13:45; Stop 12/01/16 at 13:46; Status DC Lactobacillus Acidophilus (Lactinex) 1 tab Q12HR PO Last administered on 10:48; Start 12/02/16 at 10:00 Pharmacy Profile Note 0 ml @ 0 mls/hr UNSCH OTHER ; Start 12/03/16 at 17:00; Status Cancel Ethambutol HCl (Myambutol) 800 mg DAILY PO Last administered on 12/28/16 10:48 ; Start 12/04/16 at 09:00 Ganciclovir Sodium 81 mg/ Sodium Chloride 101.62 ml @ 101.62 mls/hr WITH DIALYSIS IV ; Start 12/04/16 at 09:00; Stop 12/10/16 at 12:45; Status DC Ganciclovir Sodium 81 mg/ Sodium Chloride 101.62 ml @ 101.62 mls/hr ONCE ONCE IV Last administered on 12/03/16 22:38; Start 12/03/16 at 21:00; Stop 12/03/16 at 21:59; Status DC Ganciclovir Sodium 41 mg/ Sodium Chloride 100.82 ml @ 100.82 mls/hr TuThSa IV ; Start 12/27/16 at 14:00; Stop 12/27/16 at 14:00; Status DC Epoetin Abel (Epogen Inj) 10,000 units UNSCH PRN IV WITH DIALYSIS Last administered on 12/29/16 11:06; Start 12/06/16 at 09:30 Levofloxacin (Levaquin) 250 mg Q48H PO Last administered on 12/08/16 18:16; Start 12/08/16 at 16:00; Stop 12/09/16 at 15:27; Status DC Sodium Chloride 250 ml @ 15 mls/hr ONCE ONCE IV Last administered on 10:21; Start 12/08/16 at 17:00; Stop 12/09/16 at 09:39; Status DC Acetaminophen (Tylenol) 650 mg Q4H PRN PO SEE LABEL COMMENTS; Start 12/08/16 at 17:00; Stop 12/09/16 at 16:59; Status DC Diphenhydramine HCl (Benadryl) 25 mg Q4H PRN PO SEE LABEL COMMENTS; Start 12/08 at 17:00; Stop 12/09/16 at 16:59; Status DC Furosemide (Lasix Inj) 20 mg ONCE ONCE IV Last administered on 12/09/16 14:08 ; Start 12/08/16 at 17:00; Stop 12/08/16 at 17:02; Status DC Rifampin (Rifampin) 300 mg Q12HR PO Last administered on 12/28/16 10:48; Start 12/09/16 at 21:00 Ganciclovir Sodium 81 mg/ Sodium Chloride 101.62 ml @ 101.62 mls/hr TuThSa IV Last administered on 12/24/16 15:58; Start 12/10/16 at 12:45; Stop 12/24/16 at 23:00; Status DC Bupivacaine HCl/ Epinephrine Bitart (Sensorcaine-Epinephrine Pf 0.25% Inj) 10 ml ONCE ONCE INFIL ; Start 12/14/16 at 09:45; Stop 12/14/16 at 10:17; Status DC Sodium Chloride (NS Flush) 2 ml UNSCH PRN IV FLUSH FLUSH AFTER USING IV ACCESS ; Start 12/14/16 at 10:45 Sodium Chloride (NS Flush) 2 ml BID IV FLUSH Last administered on 12/28/16 22: 31; Start 12/14/16 at 21:00 Acetaminophen/ Hydrocodone Bitart (H[place]ick 5-325 Mg) 1 tab Q4H PRN PO PAIN SCALE 1 TO 5; Start 12/14/16 at 10:45 Acetaminophen/ Hydrocodone Bitart ([place]ick 5-325 Mg) 2 tab Q4H PRN PO PAIN SCALE 6 TO 10; Start 12/14/16 at 10:45 Miscellaneous Information (Post-op Orders (for Pharmacy)) STAT ONCE XX Last administered on 12/14/16 10:45; Start 12/14/16 at 10:45; Stop 12/14/16 at 10:46 ; Status DC Miscellaneous Information ALL NURSING DEPARTME... UNSCH PRN .XX SEE LABEL COMMENTS; Start 12/14/16 at 11:30; Stop 12/15/16 at 11:29; Status DC Sodium Biphosphate/ Sodium Phosphate (Fleets Enema (Adult)) 133 ml ONCE ONCE RECTAL Last administered on 12/20/16 09:22; Start 12/20/16 at 09:15; Stop at 09:16; Status DC Influenza Virus Vaccine (Flu (Quadrivalent) Vaccine Inj) 0.5 ml ONCE ONCE IM Last administered on 12/24/16 12:20; Start 12/24/16 at 10:00; Stop 12/24/16 at 10:01; Status DC Naproxen (Naprosyn) 500 mg ONCE ONCE PO Last administered on 12/25/16 01:12; Start 12/25/16 at 01:15; Stop 12/25/16 at 01:16; Status DC Valganciclovir (Valcyte) 450 mg DAILY PO Last administered on 12/28/16 10:48; Start 12/26/16 at 13:45 Side: Right A/P Problem List: (1) Renal failure ICD Code: N19 - Unspecified kidney failure Status: Acute (2) Sepsis ICD Code: A41.9 - Sepsis, unspecified organism Status: Acute (3) UTI (urinary tract infection) ICD Code: N39.0 - Urinary tract infection, site not specified (4) Chronic kidney disease, stage V ICD Code: N18.5 - Chronic kidney disease, stage 5 (5) HIV (human immunodeficiency virus infection) ICD Code: B20 - Human immunodeficiency virus [HIV] disease (6) Anemia ICD Code: D64.9 - Anemia, unspecified (7) Hypertension ICD Code: I10 - Essential (primary) hypertension (8) Medical non-compliance ICD Code: Z91.19 - Patient's noncompliance with other medical treatment and regimen Assessment and Plan Severe sepsis secondary to UTI, pneumonia-resolved AIDS-noncompliance intermittent fever - Status post treatment with Zosyn. Patient is immunocompromised, noncompliant with HAART for the last 2 months. - HSV positive. Continue Biaxin, Valganciclovir, Ethambutol,Rifampin per infectious disease . Blood mycobacterial culture growing acid fast organism. - ID following. Acute renal failure superimposed on chronic kidney disease stage V - Nephrology following, remains non-oliguric. -Recent kidney biopsy FSGS, with 2 out of 7 Glomeruli sclerosis - HD per nephrology. -Patient would like to have a PD catheter placed HIV/AIDS - CD4 count less than 20. Patient admitted to being noncompliant with HAART meds for the last 2 months. He has been counseled. 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 - Currently on IV Valganciclovir . Oral thrush, improved: treated with Diflucan Anemia - Transfused packed red blood cell Continue to monitor H&H Discharge Planning still with on and off fever. ID following. Problem Qualifiers (1) Renal failure: (2) Sepsis: Neelima Burgess MD Dec 29, 2016 12:39
[2016-12-29] MEDS: RIFAMPIN 150 MG CAP PO SCH ×2 (15:00→20:10)
[2016-12-29] MEDS: ETHAMBUTOL HCL 400 MG TAB PO SCH (15:00)
[2016-12-29] MEDS: LACTOBACILLUS ACIDOPHILUS TAB PO SCH ×2 (15:00→20:10)
[2016-12-29] MEDS: CLARITHROMYCIN 500 MG TAB PO SCH ×2 (15:01→20:10)
[2016-12-29] MEDS: SODIUM CHLORIDE 0.9% FLUSH 10 ML FLUSH IV FLUSH SCH ×2 (15:03→20:11)
[2016-12-29] MEDS: ACETAMINOPHEN 325 MG TAB PO PRN (17:31)
[2016-12-30] VITALS (7 sets, daily range): BP systolic 98–154; BP diastolic 62–89; PULSE 87–118; RESP 16–20; TEMP 98.3–103.1; O2SAT 97–100
[2016-12-30] MEDS: ACETAMINOPHEN 325 MG TAB PO PRN ×2 (00:45→15:36)
[2016-12-30 03:22] LABS: MEAN CELL VOLUME 83.8 FL (80.0-100.0); MEAN CORPUSCULAR HEMOGLOBIN 28.2 PG (27.0-34.0); MEAN CORPUSCULAR HGB CONC 33.6 % (32.0-36.0); PLATELET COUNT 175 TH/MM3 (150-450); RED CELL DISTRIBUTION WIDTH 15.6 % (11.6-17.2); WHITE BLOOD COUNT 2.2 TH/MM3 (4.0-11.0)
[2016-12-30 03:23] LABS: HEMO FLAGS AUTO DIFF
[2016-12-30 03:32] LABS: BICARBONATE 30.4 MEQ/L (21.0-32.0); MAGNESIUM 2.2 MG/DL (1.5-2.5); POTASSIUM 3.8 MEQ/L (3.5-5.1)
[2016-12-30 04:13] LABS: BANDS 20 % (0-6); BASOPHILS 2 % (0-2); DOHLE BODIES PRESENT (NONE SEEN); EOSINOPHILS 3 % (0-4); NEUTROPHIL # MANUAL DIFF 1.7 TH/MM3 (1.8-7.7); PLATELET ESTIMATE SMEAR NORMAL (NORMAL); PLATELET MORPHOLOGY NORMAL (NORMAL); POLYS (SEG NEUTROPHILS) 56 % (16-70); SCAN/DIFF FINAL DIFF MANUAL; TOXIC GRANULATION 1+ (NORMAL); TOXIC VACUOLATION PRESENT (NONE SEEN); WBC DIFF SAMPLE 100
[2016-12-30] MEDS ORDERED: POTASSIUM CHLORIDE 20 MEQ CONTROLLED RELEASE TAB PO ONE (05:00)
[2016-12-30] MEDS: SODIUM CHLORIDE 0.9% FLUSH 10 ML FLUSH IV FLUSH SCH ×2 (07:27→20:42)
[2016-12-30] MEDS: DOCUSATE SODIUM 50 MG/SENNA 8.6 MG TAB PO SCH ×2 (08:42→20:42)
[2016-12-30] MEDS: RIFAMPIN 150 MG CAP PO SCH ×2 (08:42→20:42)
[2016-12-30] MEDS: ETHAMBUTOL HCL 400 MG TAB PO SCH (08:42)
[2016-12-30] MEDS: LACTOBACILLUS ACIDOPHILUS TAB PO SCH ×2 (08:42→20:41)
[2016-12-30] MEDS: CLARITHROMYCIN 500 MG TAB PO SCH ×2 (08:42→20:42)
--- NOTE | 2016-12-30 09:19 | HHI.PR ---
Subjective Remarks in no acute distress. denies pain. still febrile; T max 101.3. no other complaints. Objective Vitals Vital Signs Date Time Temp Pulse Resp B/P (MAP) Pulse Ox O2 Delivery O2 Flow Rate FiO2 12/30/16 07:00 100.4 104 17 147/85 (105) 97 12/30/16 04:57 98.8 105 17 98/62 (74) 99 12/30/16 00:22 100.6 112 17 154/82 (106) 97 12/29/16 20:37 99.4 120 17 110/66 (81) 98 12/29/16 20:00 Room Air 12/29/16 20:00 107 12/29/16 16:02 101.3 113 18 115/63 (80) 99 I/O 12/29/16 12/29/16 12/29/16 12/30/16 12/30/16 12/30/16 07:00 15:00 23:00 07:00 15:00 23:00 Intake Total 1 ml 600 ml 240 ml Balance 1 ml 600 ml 240 ml Intake Oral 600 ml 240 ml IV Total 1 ml # Voids 2 # Bowel Movements 1 Result Diagram: 12/30/16 0252 12/30/16 0252 Imaging Last Impressions Gallium Scan Nuclear Medicine 12/19/16 0000 Signed Impressions: Service Date/Time: Monday, December 19, 2016 13:19 - CONCLUSION: Negative for occult inflammatory process. Enzo Isbell MD FACR Upper Extremity Ultrasound 12/07/16 0000 Signed Impressions: Service Date/Time: Wednesday, December 07, 2016 10:11 - CONCLUSION: Venous mapping as above. Enzo Isbell MD FACR Renal Biopsy CT 12/01/16 0600 Signed Impressions: Service Date/Time: November 14:17 - CONCLUSION: Uncomplicated CT guided biopsy. Alexis Adhikari MD Central Venous Line 11/29/16 0000 Signed Impressions: Service Date/Time: Tuesday, November 29, 2016 00:00 - CONCLUSION: Uncomplicated catheter removal. Solitario Diaz MD Catheter Placement X-Ray 11/29/16 0000 Signed Impressions: Service Date/Time: Tuesday, November 29, 2016 13:58 - CONCLUSION: Uncomplicated PermaCath placement as above. Solitario Diaz MD Tumor Localization 11/14/16 0000 Signed Impressions: Service Date/Time: Monday, November 14, 2016 11:38 - CONCLUSION: Negative scan Solitario Diaz MD Chest X-Ray 11/13/16 0000 Signed Impressions: Service Date/Time: Sunday, November 13, 2016 16:02 - CONCLUSION: No acute cardiopulmonary disease. Quincy Medellin MD Renal Ultrasound 11/05/16 0000 Signed Impressions: Service Date/Time: Saturday, November 05, 2016 19:17 - CONCLUSION: Diffusely echogenic kidneys indicating medical renal disease. Dorian Murry MD Abdomen/Pelvis CT 11/05/16 0000 Signed Impressions: Service Date/Time: Saturday, November 05, 2016 17:19 - CONCLUSION: 1. 4 mm calculus in the right renal pelvis/ureteropelvic junction with mild adjacent perinephric/periureteral stranding. No evidence of hydronephrosis. 2. 1 cm round hypodensity in the anterior right mid kidney statistically most likely to represent a cyst. 3. 3.7 cm hypodensity in the right lobe of the liver air the dome of the diaphragm. This finding is nonspecific on noncontrast CT. The most likely etiologies include hemangioma and cyst. It could be further evaluated with ultrasound nonemergent followup MRI of the abdomen. 4. Mild dilated proximal right common iliac artery. Dorian Murry MD Objective Remarks GENERAL: This is a well-nourished, well-developed patient, in no apparent distress. CARDIOVASCULAR: Regular rate and regular rhythm without murmurs, gallops, or rubs. RESPIRATORY: Clear to auscultation. Breath sounds equal bilaterally. No wheezes , rales, or rhonchi. GASTROINTESTINAL: Abdomen soft, non-tender, nondistended. Normal, active bowel sounds MUSCULOSKELETAL: Extremities without clubbing, cyanosis, or edema. NEURO: Alert & Oriented x4 to person, place, time, situation. Moves all ext x4 Procedures 11/14/16 hemodialysis catheter placement, right internal jugular 12/14 PD cath placement Medications and IVs Current Medications Sodium Chloride 1,000 ml @ 1,000 mls/hr Q1H ONCE IV Last administered on t 14:25; Start 11/05/16 at 13:54; Stop 11/05/16 at 14:53; Status DC Sodium Chloride 1,000 ml @ 1,000 mls/hr Q1H ONCE IV Last administered on 15:12; Start 11/05/16 at 13:54; Stop 11/05/16 at 14:53; Status DC Sodium Chloride 100 ml @ 1,000 mls/hr Q6M ONCE IV Last administered on 15:32; Start 11/05/16 at 13:54; Stop 11/05/16 at 13:59; Status DC Vancomycin HCl 1050 mg/Sodium Chloride 260.5 ml @ 250 mls/hr ONCE ONCE IV Last administered on 11/05/16 15:06; Start 11/05/16 at 14:00; Stop 11/05/16 at 15:02; Status DC Piperacillin Sod/ Tazobactam Sod 50 ml @ 100 mls/hr ONCE ONCE IV Last administered on 11/05/16 16:38; Start 11/05/16 at 14:00; Stop 11/05/16 at 14:29 ; Status DC Acetaminophen (Tylenol) 1,000 mg ONCE ONCE PO Last administered on 11/05/16 16:38; Start 11/05/16 at 15:45; Stop 11/05/16 at 15:46; Status DC Abacavir Sulfate (Ziagen) 300 mg BID PO ; Start 11/05/16 at 21:00; Stop at 21:00; Status DC Lamivudine (Epivir) 150 mg BID PO ; Start 11/05/16 at 21:00; Stop 11/05/16 at 21 :00; Status DC Lopinavir/ Ritonavir (Kaletra 200-50 Mg) 1 tab BID PO ; Start 11/05/16 at 21:00 ; Stop 11/05/16 at 21:00; Status DC Pharmacy Profile Note 0 ml @ 0 mls/hr UNSCH OTHER ; Start 11/05/16 at 16:15; Stop 11/08/16 at 09:10; Status DC Piperacillin Sod/ Tazobactam Sod 50 ml @ 100 mls/hr Q8H IV Last administered on 11/09/16 16:35; Start 11/06/16 at 00:00; Stop 11/09/16 at 17:24; Status DC Sodium Chloride 1,000 ml @ 83 mls/hr Q12H3M IV Last administered on 11/09/16 05:17; Start 11/05/16 at 17:00; Stop 11/09/16 at 16:19; Status DC Sodium Chloride (NS Flush) 2 ml UNSCH PRN IV FLUSH FLUSH AFTER USING IV ACCESS ; Start 11/05/16 at 16:15 Sodium Chloride (NS Flush) 2 ml BID IV FLUSH Last administered on 12/14/16 07: 26; Start 11/05/16 at 21:00; Stop 12/14/16 at 10:39; Status DC Acetaminophen (Tylenol) 650 mg Q4H PRN PO TEMP > 100.4 Last administered on 00:45; Start 11/05/16 at 16:15 Ondansetron HCl (Zofran Inj) 4 mg Q6H PRN IVP NAUSEA OR VOMITING Last administered on 12/22/16 21:14; Start 11/05/16 at 16:15 Heparin Sodium (Porcine) (Heparin Inj) 5,000 units Q12H SQ Last administered on 12/08/16 18:16; Start 11/05/16 at 17:00; Status Future Hold Naloxone HCl (Narcan Inj) 0.4 mg UNSCH PRN IV SEE LABEL COMMENTS; Start at 16:15 Senna/Docusate Sodium (Dee-Colace) 1 tab BID PO Last administered on 08:42; Start 11/05/16 at 21:00 Magnesium Hydroxide (Milk Of Magnesia Liq) 30 ml Q12H PRN PO MILD - MODERATE CONSTIPATION; Start 11/05/16 at 16:15 Sennosides (Senokot) 17.2 mg Q12H PRN PO MODERATE - SEVERE CONSTIPATION; Start 11/05/16 at 16:15 Bisacodyl (Dulcolax Supp) 10 mg DAILY PRN RECTAL SEVERE CONSITIPATION; Start at 16:15 Lactulose (Lactulose Liq) 30 ml DAILY PRN PO SEVERE CONSITIPATION; Start at 16:15 Acetaminophen/ Hydrocodone Bitart ([place] 7.5-325 Mg) 1 tab Q4H PRN PO PAIN SCALE 4 TO 10; Start 11/05/16 at 16:15; Stop 12/14/16 at 10:38; Status DC Nystatin (Mycostatin Liq) 5 ml QID SWISH-SWAL Last administered on 11/26/16 21 :39; Start 11/05/16 at 18:00; Stop 11/27/16 at 13:26; Status DC Vancomycin HCl 1000 mg/Sodium Chloride 250 ml @ 250 mls/hr ONCE ONCE IV Last administered on 11/07/16 11:27; Start 11/07/16 at 12:00; Stop 11/07/16 at 12:59 ; Status DC Valacyclovir HCl (Valtrex) 500 mg Q8HR PO Last administered on 11/15/16 20:39 ; Start 11/08/16 at 09:15; Stop 11/15/16 at 23:00; Status DC Sodium Bicarbonate (Sodium Bicarbonate) 650 mg Q12HR PO Last administered on 07:49; Start 11/09/16 at 21:00; Stop 11/16/16 at 16:54; Status DC Ceftriaxone Sodium 2000 mg/ Sodium Chloride 100 ml @ 200 mls/hr Q24H IV Last administered on 11/21/16 15:59; Start 11/09/16 at 18:00; Stop 11/21/16 at 16:39 ; Status DC Metoprolol Tartrate (Lopressor) 12.5 mg Q12HR PO Last administered on 10:02; Start 11/10/16 at 18:00; Stop 11/13/16 at 14:05; Status DC Levofloxacin (Levaquin) 250 mg Q48H PO Last administered on 11/15/16 17:57; Start 11/11/16 at 16:00; Stop 11/16/16 at 10:23; Status DC Azithromycin (Zithromax) 250 mg DAILY PO Last administered on 11/21/16 08:41; Start 11/11/16 at 15:15; Stop 11/21/16 at 16:45; Status DC Sodium Bicarbonate 75 meq/Sodium Chloride 1,075 ml @ 75 mls/hr [id number] IV Last administered on 11/16/16 00:00; Start 11/12/16 at 21:00; Stop 11/16/16 at 06:05; Status DC Sodium Chloride 250 ml @ 15 mls/hr ONCE ONCE IV ; Start 11/13/16 at 06:00; Stop 11/13/16 at 22:39; Status DC Metoprolol Tartrate (Lopressor) 25 mg Q12HR PO Last administered on 11/16/16 07:49; Start 11/13/16 at 21:00; Stop 11/16/16 at 16:54; Status DC Metoprolol Tartrate (Lopressor) 12.5 mg ONCE ONCE PO Last administered on 11/13 16:16; Start 11/13/16 at 14:30; Stop 11/13/16 at 14:31; Status DC Miscellaneous (Pill Splitter) 1 ea UNSCH PRN OTHER SEE LABEL COMMENTS; Start at 14:30 Sodium Chloride 1,000 ml @ 0 mls/hr Q0M PRN IV For Prime & Rinse Back Last administered on 12/22/16 09:53; Start 11/13/16 at 17:02 Heparin Sodium (Porcine) (Heparin Inj) 8,000 units UNSCH PRN IVF WITH DIALYSIS Last administered on 12/29/16 10:30; Start 11/13/16 at 17:15 Sodium Chloride 1,000 ml @ 200 mls/hr Q5H PRN IV WITH DIALYSIS; Start 11/13/16 at 17:02 Sodium Chloride 1,000 ml @ 0 mls/hr Q0M PRN IV WITH DIALYSIS; Start 11/13/16 at 17:02 Mannitol (Mannitol Inj) 12.5 gm UNSCH PRN IV WITH DIALYSIS; Start 11/13/16 at 17:15 Albumin Human (Albumin 25% Inj) 25 gm UNSCH PRN IV WITH DIALYSIS Last administered on 12/27/16 09:31; Start 11/13/16 at 17:15 Sodium Chloride (NS Flush) 5 ml UNSCH PRN IV FLUSH WITH DIALYSIS Last administered on 12/17/16 10:57; Start 11/13/16 at 17:15 Heparin Sodium (Porcine) (Heparin Inj) UNSCH PRN .XX WITH DIALYSIS Last administered on 12/29/16 11:05; Start 11/13/16 at 17:15 Gentamicin Sulfate (Gentamicin (Dialysis) Inj) 20 mg UNSCH PRN IV WITH DIALYSIS Last administered on 12/29/16 11:05; Start 11/13/16 at 17:15 Ondansetron HCl (Zofran Inj) 4 mg UNSCH PRN IV WITH DIALYSIS Last administered on 12/09/16 20:25; Start 11/13/16 at 17:15 Acetaminophen (Tylenol) 650 mg UNSCH PRN PO for headach, pain, temp > 101F Last administered on 11/21/16 12:27; Start 11/13/16 at 17:15 Diphenhydramine HCl (Benadryl) 25 mg UNSCH PRN PO for hives/itching/anaphylaxis ; Start 11/13/16 at 17:15 Nitroglycerin (Nitrostat Sl) 0.4 mg UNSCH PRN SL CHEST PAIN; Start 11/13/16 at 17:15 Clonidine (Catapres) 0.1 mg UNSCH PRN PO for BP > 170/100 X 2 readings Last administered on 12/08/16 13:25; Start 11/13/16 at 17:15 Gelatin (Gelfoam 12 Mm/7 Mm Top) 1 foam UNSCH PRN TOP SEE LABEL COMMENTS; Start 11/13/16 at 17:15 Heparin Sodium (Porcine) (*HEPARIN INJ Periprocedural ONLY) 10,000 units STK- MED ONCE .ROUTE Last administered on 11/14/16 11:29; Start 11/14/16 at 11:26; Stop 11/14/16 at 11:27; Status DC Sodium Chloride (NS Flush) UNSCH PRN IVF SEE PROTOCOL; Start 11/14/16 at 11:45 ; Stop 11/29/16 at 19:51; Status DC Heparin Sodium (Porcine) (Heparin Inj) UNSCH PRN IV FLUSH SEE PROTOCOL Last administered on 11/29/16 10:25; Start 11/14/16 at 11:45; Stop 11/29/16 at 19:51; Status DC Potassium Bicarb/ Potassium Chloride (K-Lyte Cl Eff) 50 meq ONCE ONCE PO Last administered on 11/16/16 06:37; Start 11/16/16 at 06:00; Stop 11/16/16 at 06:02; Status DC Potassium Chloride 100 ml @ 50 mls/hr Q2H IV Last administered on 11/16/16 07 :49; Start 11/16/16 at 06:00; Stop 11/16/16 at 10:04; Status DC Levofloxacin (Levaquin) 250 mg Q24H PO Last administered on 12/07/16 16:24; Start 11/16/16 at 16:00; Stop 12/08/16 at 12:55; Status DC Metoprolol Tartrate (Lopressor) 50 mg Q12HR PO Last administered on 12/02/16 08 :53; Start 11/16/16 at 21:00; Status Future Hold Valacyclovir HCl (Valtrex) 500 mg DAILY PO Last administered on 11/22/16 08:36 ; Start 11/17/16 at 10:45; Stop 11/22/16 at 08:59; Status DC Amlodipine Besylate (Norvasc) 5 mg DAILY PO Last administered on 12/02/16 08:53 ; Start 11/19/16 at 12:00; Status Future Hold Ethambutol HCl (Myambutol) 800 mg DAILY PO Last administered on 12/03/16 14:22 ; Start 11/21/16 at 18:00; Stop 12/03/16 at 16:35; Status DC Clarithromycin (Biaxin) 500 mg Q12HR PO Last administered on 12/30/16 08:42; Start 11/21/16 at 21:00 Acyclovir (Zovirax) 400 mg Q12HR PO Last administered on 12/03/16 14:22; Start 11/23/16 at 12:30; Stop 12/03/16 at 18:16; Status DC Trimethoprim/ Sulfamethoxazole (Bactrim Ds 800-160 Mg) 1 tab MoWeFr@09 PO Last administered on 12/21/16 09:33; Start 11/25/16 at 09:00; Stop 12/22/16 at 14:14 ; Status DC Fluconazole (Diflucan) 200 mg ONCE ONCE PO Last administered on 11/26/16 12:46 ; Start 11/26/16 at 07:45; Stop 11/26/16 at 07:46; Status DC Fluconazole (Diflucan) 100 mg DAILY PO Last administered on 12/09/16 10:19; Start 11/27/16 at 09:00; Stop 12/09/16 at 15:27; Status DC Fentanyl Citrate (fentaNYL INJ) 100 mcg K-MED ONCE .ROUTE Last administered on 11/29/16 13:50; Start 11/29/16 at 13:50; Stop 11/29/16 at 13:51; Status DC Midazolam HCl (Versed Inj) 2 mg STK-MED ONCE .ROUTE Last administered on 13:50; Start 11/29/16 at 13:50; Stop 11/29/16 at 13:51; Status DC Midazolam HCl (Versed Inj) 2 mg STK-MED ONCE .ROUTE ; Start 11/29/16 at 13:50; Stop 11/29/16 at 13:51; Status DC Fentanyl Citrate (fentaNYL INJ) 100 mcg STK-MED ONCE .ROUTE ; Start 11/29/16 at 13:51; Stop 11/29/16 at 13:52; Status DC Heparin Sodium (Porcine) (*HEPARIN INJ Periprocedural ONLY) 10,000 units STK- MED ONCE .ROUTE Last administered on 11/29/16 14:08; Start 11/29/16 at 14:08; Stop 11/29/16 at 14:09; Status DC Lidocaine/ Epinephrine (Xylocaine-Epi 2%-1:100,000 Inj) 20 ml STK-MED ONCE .ROUTE ; Start 11/29/16 at 14:09; Stop 11/29/16 at 14:10; Status DC Lidocaine/ Epinephrine (Xylocaine-Epi 2%-1:100,000 Inj) 20 ml STK-MED ONCE .ROUTE Last administered on 11/29/16 14:10; Start 11/29/16 at 14:10; Stop at 14:11; Status DC Sodium Chloride (NS Flush) UNSCH PRN IVF SEE PROTOCOL; Start 11/29/16 at 18:15 Heparin Sodium (Porcine) (Heparin Inj) UNSCH PRN IV FLUSH SEE PROTOCOL Last administered on 12/06/16 10:15; Start 11/29/16 at 18:15 Fentanyl Citrate (fentaNYL INJ) 100 mcg STK-MED ONCE .ROUTE Last administered on 12/01/16 13:16; Start 12/01/16 at 13:16; Stop 12/01/16 at 13:17; Status DC Midazolam HCl (Versed Inj) 2 mg STK-MED ONCE .ROUTE Last administered on 13:16; Start 12/01/16 at 13:16; Stop 12/01/16 at 13:17; Status DC Lidocaine HCl (Xylocaine 1% Inj) 20 ml STK-MED ONCE .ROUTE Last administered on 12/01/16 13:45; Start 12/01/16 at 13:45; Stop 12/01/16 at 13:46; Status DC Sodium Bicarbonate 50 ml @ As Directed STK-MED ONCE .ROUTE Last administered on 12/01/16 13:45; Start 12/01/16 at 13:45; Stop 12/01/16 at 13:46; Status DC Lactobacillus Acidophilus (Lactinex) 1 tab Q12HR PO Last administered on 08:42; Start 12/02/16 at 10:00 Pharmacy Profile Note 0 ml @ 0 mls/hr UNSCH OTHER ; Start 12/03/16 at 17:00; Status Cancel Ethambutol HCl (Myambutol) 800 mg DAILY PO Last administered on 12/30/16 08:42 ; Start 12/04/16 at 09:00 Ganciclovir Sodium 81 mg/ Sodium Chloride 101.62 ml @ 101.62 mls/hr WITH DIALYSIS IV ; Start 12/04/16 at 09:00; Stop 12/10/16 at 12:45; Status DC Ganciclovir Sodium 81 mg/ Sodium Chloride 101.62 ml @ 101.62 mls/hr ONCE ONCE IV Last administered on 12/03/16 22:38; Start 12/03/16 at 21:00; Stop 12/03/16 at 21:59; Status DC Ganciclovir Sodium 41 mg/ Sodium Chloride 100.82 ml @ 100.82 mls/hr TuThSa IV ; Start 12/27/16 at 14:00; Stop 12/27/16 at 14:00; Status DC Epoetin Abel (Epogen Inj) 10,000 units UNSCH PRN IV WITH DIALYSIS Last administered on 12/29/16 11:06; Start 12/06/16 at 09:30 Levofloxacin (Levaquin) 250 mg Q48H PO Last administered on 12/08/16 18:16; Start 12/08/16 at 16:00; Stop 12/09/16 at 15:27; Status DC Sodium Chloride 250 ml @ 15 mls/hr ONCE ONCE IV Last administered on 10:21; Start 12/08/16 at 17:00; Stop 12/09/16 at 09:39; Status DC Acetaminophen (Tylenol) 650 mg Q4H PRN PO SEE LABEL COMMENTS; Start 12/08/16 at 17:00; Stop 12/09/16 at 16:59; Status DC Diphenhydramine HCl (Benadryl) 25 mg Q4H PRN PO SEE LABEL COMMENTS; Start 12/08 at 17:00; Stop 12/09/16 at 16:59; Status DC Furosemide (Lasix Inj) 20 mg ONCE ONCE IV Last administered on 12/09/16 14:08 ; Start 12/08/16 at 17:00; Stop 12/08/16 at 17:02; Status DC Rifampin (Rifampin) 300 mg Q12HR PO Last administered on 12/30/16 08:42; Start 12/09/16 at 21:00 Ganciclovir Sodium 81 mg/ Sodium Chloride 101.62 ml @ 101.62 mls/hr TuThSa IV Last administered on 12/24/16 15:58; Start 12/10/16 at 12:45; Stop 12/24/16 at 23:00; Status DC Bupivacaine HCl/ Epinephrine Bitart (Sensorcaine-Epinephrine Pf 0.25% Inj) 10 ml ONCE ONCE INFIL ; Start 12/14/16 at 09:45; Stop 12/14/16 at 10:17; Status DC Sodium Chloride (NS Flush) 2 ml UNSCH PRN IV FLUSH FLUSH AFTER USING IV ACCESS ; Start 12/14/16 at 10:45 Sodium Chloride (NS Flush) 2 ml BID IV FLUSH Last administered on 12/30/16 07: 27; Start 12/14/16 at 21:00 Acetaminophen/ Hydrocodone Bitart ([place] 5-325 Mg) 1 tab Q4H PRN PO PAIN SCALE 1 TO 5; Start 12/14/16 at 10:45 Acetaminophen/ Hydrocodone Bitart ([place] 5-325 Mg) 2 tab Q4H PRN PO PAIN SCALE 6 TO 10; Start 12/14/16 at 10:45 Miscellaneous Information (Post-op Orders (for Pharmacy)) STAT ONCE XX Last administered on 12/14/16 10:45; Start 12/14/16 at 10:45; Stop 12/14/16 at 10:46 ; Status DC Miscellaneous Information ALL NURSING DEPARTME... UNSCH PRN .XX SEE LABEL COMMENTS; Start 12/14/16 at 11:30; Stop 12/15/16 at 11:29; Status DC Sodium Biphosphate/ Sodium Phosphate (Fleets Enema (Adult)) 133 ml ONCE ONCE RECTAL Last administered on 12/20/16 09:22; Start 12/20/16 at 09:15; Stop at 09:16; Status DC Influenza Virus Vaccine (Flu (Quadrivalent) Vaccine Inj) 0.5 ml ONCE ONCE IM Last administered on 12/24/16 12:20; Start 12/24/16 at 10:00; Stop 12/24/16 at 10:01; Status DC Naproxen (Naprosyn) 500 mg ONCE ONCE PO Last administered on 12/25/16 01:12; Start 12/25/16 at 01:15; Stop 12/25/16 at 01:16; Status DC Valganciclovir (Valcyte) 450 mg DAILY PO Last administered on 12/30/16 08:42; Start 12/26/16 at 13:45 Potassium Chloride (KCl) 40 meq ONCE ONCE PO Last administered on 12/30/16 06 :05; Start 12/30/16 at 05:00; Stop 12/30/16 at 05:07; Status DC Side: Right A/P Problem List: (1) Renal failure ICD Code: N19 - Unspecified kidney failure Status: Acute (2) Sepsis ICD Code: A41.9 - Sepsis, unspecified organism Status: Acute (3) UTI (urinary tract infection) ICD Code: N39.0 - Urinary tract infection, site not specified (4) Chronic kidney disease, stage V ICD Code: N18.5 - Chronic kidney disease, stage 5 (5) HIV (human immunodeficiency virus infection) ICD Code: B20 - Human immunodeficiency virus [HIV] disease (6) Anemia ICD Code: D64.9 - Anemia, unspecified (7) Hypertension ICD Code: I10 - Essential (primary) hypertension (8) Medical non-compliance ICD Code: Z91.19 - Patient's noncompliance with other medical treatment and regimen Assessment and Plan Severe sepsis secondary to UTI, pneumonia-resolved AIDS-noncompliance intermittent fever - Status post treatment with Zosyn. Patient is immunocompromised, noncompliant with HAART for the last 2 months. - HSV positive. Continue Biaxin, Valganciclovir, Ethambutol,Rifampin per infectious disease . Blood mycobacterial culture growing acid fast organism. - ID following. Acute renal failure superimposed on chronic kidney disease stage V - Nephrology following, remains non-oliguric. -Recent kidney biopsy FSGS, with 2 out of 7 Glomeruli sclerosis - HD per nephrology. -Patient would like to have a PD catheter placed HIV/AIDS - CD4 count less than 20. Patient admitted to being noncompliant with HAART meds for the last 2 months. He has been counseled. 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 Oral thrush, improved: treated with Diflucan Anemia - Transfused packed red blood cell -on Epogen -Continue to monitor H&H Discharge Planning still with on and off fever. ID following. Problem Qualifiers (1) Renal failure: (2) Sepsis: Neelima Burgess MD Dec 30, 2016 09:19
--- NOTE | 2016-12-30 11:19 | HHI.NPPN ---
Subjective History of Present Illness 50-year-old male with past medical history of HIV disease for more than 20 years and history of renal stone who came to the hospital with complaint of back pain. The patient has back pain going on for the last 2 months off and on and he came to the emergency department yesterday with worsening pain. Additional Remarks Patient is alert, no SOB, seen after HD, no abd. pain, still having fever off and on, no chills. Review of Systems General Constitutional: Fatigue Cardiovascular Cardiac: MIRZA Objective Data Data Vital Signs Date Time Temp Pulse Resp B/P (MAP) Pulse Ox O2 Delivery O2 Flow Rate FiO2 12/30/16 11:11 Room Air 21 12/30/16 07:00 100.4 104 17 147/85 (105) 97 12/30/16 04:57 98.8 105 17 98/62 (74) 99 12/30/16 00:22 100.6 112 17 154/82 (106) 97 12/29/16 20:37 99.4 120 17 110/66 (81) 98 12/29/16 20:00 Room Air 12/29/16 20:00 107 12/29/16 16:02 101.3 113 18 115/63 (80) 99 -: 12/30/16 0252 12/30/16 0252 Physical Exam General Appearance: No Acute Distress, Comfortable Eyes Eye Exam: Pupils Equal Throat Throat Exam: Oral Mucosa [place] & Moist Pulmonary Resp Exam: Breath Sounds Equal, No Distress, Rhonchi, Decreased Bases Cardiology CV Exam: Regular, Normal Sinus Rhythm Gastrointestinal/Abdomen GI Exam: Soft, Non-Tender, Bowel Sounds Present Extremeties Extremities Exam: No Edema Neurologic Neuro Exam: Alert, Awake, Oriented Psychiatric Psych Exam: Appropriate Responses Assessment/Plan Assessment Summary: MIKE/Acute Renal Failure Problem List: (1) Renal failure ICD Codes: N19 - Unspecified kidney failure Status: Acute (2) Sepsis ICD Codes: A41.9 - Sepsis, unspecified organism Status: Acute (3) Open wound of scrotum ICD Codes: S31.30XA - Unspecified open wound of scrotum and testes, initial encounter Status: Acute Plan c/o blurry vision left eye Remain non oliguric. SPEP was negative. Complements normal, other serology also negative. BP is better, on Metoprolol to 50 mg BID. If renal function will not improve, will consider Renal Biopsy once infection is controlled. Fever pattern is better, ID is following. Now on Bactrim, Acyclovir, Clarithromycin and Ethambutol. No improvement in renal function. Possibly has End stage renal disease. Got PermCath. 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 No need to repeat the renal Biopsy as clinically he is showing no improvement, and the with advance HIV , the treatment options are limited, cannot be given immunosuppressive drugs. I discussed this in detail with patient. Now he change his mind and want to go for PD from ID stand point. He understand increase risk of infection due to advance HIV. Has PD catheter done. Now on Valganciclovir, ID following. Gallium scan is negative. HD to continue TTS. On Epogen , follow Hgb. Transfuse as needed. HD done yesterday. Continue antibiotics as per ID. Problem Qualifiers (1) Renal failure: (2) Sepsis: Kwadwo Shah MD Dec 30, 2016 11:19
--- NOTE | 2016-12-30 14:11 | HHI.IDPN ---
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 Vital Signs Date Time Temp Pulse Resp B/P (MAP) Pulse Ox O2 Delivery O2 Flow Rate FiO2 12/30/16 11:15 99.5 101 16 130/71 (90) 100 12/30/16 11:11 Room Air 21 12/30/16 07:00 100.4 104 17 147/85 (105) 97 12/30/16 04:57 98.8 105 17 98/62 (74) 99 12/30/16 00:22 100.6 112 17 154/82 (106) 97 12/29/16 20:37 99.4 120 17 110/66 (81) 98 12/29/16 20:00 Room Air 12/29/16 20:00 107 12/29/16 16:02 101.3 113 18 115/63 (80) 99 . Laboratory Tests Test 12/30/16 02:52 White Blood Count 2.2 TH/MM3 Red Blood Count 2.50 MIL/MM3 Hemoglobin 7.1 GM/DL Hematocrit 21.0 % Mean Corpuscular Volume 83.8 FL Mean Corpuscular Hemoglobin 28.2 PG Mean Corpuscular Hemoglobin Concent 33.6 % Red Cell Distribution Width 15.6 % Platelet Count 175 TH/MM3 Mean Platelet Volume 8.7 FL CBC Comment AUTO DIFF Differential Total Cells Counted 100 Neutrophils % (Manual) 56 % Band Neutrophils % 20 % Lymphocytes % 8 % Monocytes % 11 % Eosinophils % 3 % Basophils % 2 % Neutrophils # (Manual) 1.7 TH/MM3 Differential Comment FINAL DIFF MANUAL Toxic Granulation 1+ Toxic Vacuolation PRESENT Dohle Bodies PRESENT Platelet Estimate NORMAL Platelet Morphology Comment NORMAL Laboratory Tests Test 12/30/16 02:52 Blood Urea Nitrogen 24 MG/DL Creatinine 5.12 MG/DL Random Glucose 112 MG/DL Calcium Level 8.5 MG/DL Phosphorus Level 2.8 MG/DL Magnesium Level 2.2 MG/DL Sodium Level 135 MEQ/L Potassium Level 3.8 MEQ/L Chloride Level 95 MEQ/L Carbon Dioxide Level 30.4 MEQ/L Anion Gap 10 MEQ/L Estimat Glomerular Filtration Rate 15 ML/MIN Imaging Last Impressions Renal Biopsy CT 12/01/16 0600 Signed Impressions: Service Date/Time: November 14:17 - CONCLUSION: Uncomplicated CT guided biopsy. Alexis Adhikari MD Central Venous Line 11/29/16 0000 Signed Impressions: Service Date/Time: Tuesday, November 29, 2016 00:00 - CONCLUSION: Uncomplicated catheter removal. Solitario Diaz MD Catheter Placement X-Ray 11/29/16 0000 Signed Impressions: Service Date/Time: Tuesday, November 29, 2016 13:58 - CONCLUSION: Uncomplicated PermaCath placement as above. Solitario Diaz MD Tumor Localization 11/14/16 0000 Signed Impressions: Service Date/Time: Monday, November 14, 2016 11:38 - CONCLUSION: Negative scan Solitario Diaz MD Chest X-Ray 11/13/16 0000 Signed Impressions: Service Date/Time: Sunday, November 13, 2016 16:02 - CONCLUSION: No acute cardiopulmonary disease. Quincy Medellin MD Renal Ultrasound 11/05/16 0000 Signed Impressions: Service Date/Time: Saturday, November 05, 2016 19:17 - CONCLUSION: Diffusely echogenic kidneys indicating medical renal disease. Dorian Murry MD Abdomen/Pelvis CT 11/05/16 0000 Signed Impressions: Service Date/Time: Saturday, November 05, 2016 17:19 - CONCLUSION: 1. 4 mm calculus in the right renal pelvis/ureteropelvic junction with mild adjacent perinephric/periureteral stranding. No evidence of hydronephrosis. 2. 1 cm round hypodensity in the anterior right mid kidney statistically most likely to represent a cyst. 3. 3.7 cm hypodensity in the right lobe of the liver air the dome of the diaphragm. This finding is nonspecific on noncontrast CT. The most likely etiologies include hemangioma and cyst. It could be further evaluated with ultrasound nonemergent followup MRI of the abdomen. 4. Mild dilated proximal right common iliac artery. Dorian Murry MD Physical Exam GENERAL: awake and alert, not in respiratory distress. SKIN: Warm and dry. Dry skin EYES: [place] conjunctiva. No petechia or hemorrhage. No scleral icterus. No injection or drainage. EARS, NOSE AND THROAT: Nose without bleeding or purulent nasal discharge. Mucous membranes pink and moist. White coating on tongue NECK: Trachea midline. Supple and not tender, no meningeal signs CARDIOVASCULAR: Regular rate and rhythm. No murmurs, rubs or gallops heard RESPIRATORY: Clear to auscultation. Breath sounds equal bilaterally. No rales , wheezing or rhonchi ABDOMEN: Soft, mild tenderness, not distended, dry dressing over cath. Bowel sounds present and normoactive. No guarding. No rebound. No organomegaly. Has oblong brown non tender nodule on R lateral groin (chronic been there for years, not getting bigger) EXTREMITIES: No clubbing, cyanosis, or edema.No joint effusion, has good ROM. No calf tenderness. Well perfused and warm. BUTTOCK: Ulcers healed NEUROLOGICAL: Awake alert Non-focal PSYCHIATRIC: Normal affect, calm and cooperative. 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
[2016-12-30] MEDS: predniSONE 20 MG TAB PO SCH (15:14)
[2016-12-31] VITALS (9 sets, daily range): BP systolic 109–130; BP diastolic 69–90; PULSE 65–102; RESP 16–20; TEMP 97.3–98.3; O2SAT 92–100
[2016-12-31 07:28] LABS: MEAN CELL VOLUME 84.4 FL (80.0-100.0); MEAN CORPUSCULAR HEMOGLOBIN 27.2 PG (27.0-34.0); MEAN CORPUSCULAR HGB CONC 32.3 % (32.0-36.0); PLATELET COUNT 167 TH/MM3 (150-450); RED BLOOD COUNT 2.47 MIL/MM3 (4.50-5.90); RED CELL DISTRIBUTION WIDTH 15.8 % (11.6-17.2); WHITE BLOOD COUNT 2.1 TH/MM3 (4.0-11.0)
[2016-12-31 07:35] LABS: HEMO FLAGS AUTO DIFF
[2016-12-31 07:37] LABS: HEMATOCRIT 20.8 % (39.0-51.0)
[2016-12-31] MEDS: SODIUM CHLORIDE 0.9% FLUSH 10 ML FLUSH IV FLUSH SCH ×2 (09:00→21:31)
[2016-12-31] MEDS: DOCUSATE SODIUM 50 MG/SENNA 8.6 MG TAB PO SCH ×2 (09:00→21:00)
--- NOTE | 2016-12-31 09:04 | HHI.PR ---
Subjective Remarks in no acute distress. denies chest pain or sob. noted a drop in H/H - however asymptomatic. T max 103. Objective Vitals Vital Signs Date Time Temp Pulse Resp B/P (MAP) Pulse Ox O2 Delivery O2 Flow Rate FiO2 12/31/16 08:00 97.4 65 18 130/87 (101) 100 12/31/16 04:00 97.3 91 18 116/78 (91) 100 12/31/16 00:00 97.5 76 16 128/86 (100) 100 12/30/16 20:00 98.3 87 16 114/89 (97) 100 12/30/16 20:00 Room Air 12/30/16 20:00 88 12/30/16 16:02 103.1 113 20 135/86 (102) 99 12/30/16 11:15 99.5 101 16 130/71 (90) 100 12/30/16 11:11 Room Air 21 I/O 12/30/16 12/30/16 12/30/16 12/31/16 12/31/16 12/31/16 07:00 15:00 23:00 07:00 15:00 23:00 Intake Total 240 ml 240 ml Balance 240 ml 240 ml Intake Oral 240 ml 240 ml # Voids 1 # Bowel Movements 1 Result Diagram: 12/31/16 0653 12/30/16 0252 Imaging Last Impressions Gallium Scan Nuclear Medicine 12/19/16 0000 Signed Impressions: Service Date/Time: Monday, December 19, 2016 13:19 - CONCLUSION: Negative for occult inflammatory process. Enzo Isbell MD FACR Upper Extremity Ultrasound 12/07/16 0000 Signed Impressions: Service Date/Time: Wednesday, December 07, 2016 10:11 - CONCLUSION: Venous mapping as above. Enzo Isbell MD FACR Renal Biopsy CT 12/01/16 0600 Signed Impressions: Service Date/Time: November 14:17 - CONCLUSION: Uncomplicated CT guided biopsy. Alexis Adhikari MD Central Venous Line 11/29/16 0000 Signed Impressions: Service Date/Time: Tuesday, November 29, 2016 00:00 - CONCLUSION: Uncomplicated catheter removal. Solitario Diaz MD Catheter Placement X-Ray 11/29/16 0000 Signed Impressions: Service Date/Time: Tuesday, November 29, 2016 13:58 - CONCLUSION: Uncomplicated PermaCath placement as above. Solitario Diaz MD Tumor Localization 11/14/16 0000 Signed Impressions: Service Date/Time: Monday, November 14, 2016 11:38 - CONCLUSION: Negative scan Solitario Diaz MD Chest X-Ray 11/13/16 0000 Signed Impressions: Service Date/Time: Sunday, November 13, 2016 16:02 - CONCLUSION: No acute cardiopulmonary disease. Quincy Medellin MD Renal Ultrasound 11/05/16 0000 Signed Impressions: Service Date/Time: Saturday, November 05, 2016 19:17 - CONCLUSION: Diffusely echogenic kidneys indicating medical renal disease. Dorian Murry MD Abdomen/Pelvis CT 11/05/16 0000 Signed Impressions: Service Date/Time: Saturday, November 05, 2016 17:19 - CONCLUSION: 1. 4 mm calculus in the right renal pelvis/ureteropelvic junction with mild adjacent perinephric/periureteral stranding. No evidence of hydronephrosis. 2. 1 cm round hypodensity in the anterior right mid kidney statistically most likely to represent a cyst. 3. 3.7 cm hypodensity in the right lobe of the liver air the dome of the diaphragm. This finding is nonspecific on noncontrast CT. The most likely etiologies include hemangioma and cyst. It could be further evaluated with ultrasound nonemergent followup MRI of the abdomen. 4. Mild dilated proximal right common iliac artery. Dorian Murry MD Objective Remarks GENERAL: This is a well-nourished, well-developed patient, in no apparent distress. CARDIOVASCULAR: Regular rate and regular rhythm without murmurs, gallops, or rubs. RESPIRATORY: Clear to auscultation. Breath sounds equal bilaterally. No wheezes , rales, or rhonchi. GASTROINTESTINAL: Abdomen soft, non-tender, nondistended. Normal, active bowel sounds MUSCULOSKELETAL: Extremities without clubbing, cyanosis, or edema. NEURO: Alert & Oriented x4 to person, place, time, situation. Moves all ext x4 Procedures 11/14/16 hemodialysis catheter placement, right internal jugular 12/14 PD cath placement Medications and IVs Current Medications Sodium Chloride 1,000 ml @ 1,000 mls/hr Q1H ONCE IV Last administered on 14:25; Start 11/05/16 at 13:54; Stop 11/05/16 at 14:53; Status DC Sodium Chloride 1,000 ml @ 1,000 mls/hr Q1H ONCE IV Last administered on 15:12; Start 11/05/16 at 13:54; Stop 11/05/16 at 14:53; Status DC Sodium Chloride 100 ml @ 1,000 mls/hr Q6M ONCE IV Last administered on 15:32; Start 11/05/16 at 13:54; Stop 11/05/16 at 13:59; Status DC Vancomycin HCl 1050 mg/Sodium Chloride 260.5 ml @ 250 mls/hr ONCE ONCE IV Last administered on 11/05/16 15:06; Start 11/05/16 at 14:00; Stop 11/05/16 at 15:02; Status DC Piperacillin Sod/ Tazobactam Sod 50 ml @ 100 mls/hr ONCE ONCE IV Last administered on 11/05/16 16:38; Start 11/05/16 at 14:00; Stop 11/05/16 at 14:29 ; Status DC Acetaminophen (Tylenol) 1,000 mg ONCE ONCE PO Last administered on 11/05/16 16:38; Start 11/05/16 at 15:45; Stop 11/05/16 at 15:46; Status DC Abacavir Sulfate (Ziagen) 300 mg BID PO ; Start 11/05/16 at 21:00; Stop at 21:00; Status DC Lamivudine (Epivir) 150 mg BID PO ; Start 11/05/16 at 21:00; Stop 11/05/16 at 21 :00; Status DC Lopinavir/ Ritonavir (Kaletra 200-50 Mg) 1 tab BID PO ; Start 11/05/16 at 21:00 ; Stop 11/05/16 at 21:00; Status DC Pharmacy Profile Note 0 ml @ 0 mls/hr UNSCH OTHER ; Start 11/05/16 at 16:15; Stop 11/08/16 at 09:10; Status DC Piperacillin Sod/ Tazobactam Sod 50 ml @ 100 mls/hr Q8H IV Last administered on 11/09/16 16:35; Start 11/06/16 at 00:00; Stop 11/09/16 at 17:24; Status DC Sodium Chloride 1,000 ml @ 83 mls/hr Q12H3M IV Last administered on 11/09/16 05:17; Start 11/05/16 at 17:00; Stop 11/09/16 at 16:19; Status DC Sodium Chloride (NS Flush) 2 ml UNSCH PRN IV FLUSH FLUSH AFTER USING IV ACCESS ; Start 11/05/16 at 16:15 Sodium Chloride (NS Flush) 2 ml BID IV FLUSH Last administered on 12/14/16 07: 26; Start 11/05/16 at 21:00; Stop 12/14/16 at 10:39; Status DC Acetaminophen (Tylenol) 650 mg Q4H PRN PO TEMP > 100.4 Last administered on 15:36; Start 11/05/16 at 16:15 Ondansetron HCl (Zofran Inj) 4 mg Q6H PRN IVP NAUSEA OR VOMITING Last administered on 12/22/16 21:14; Start 11/05/16 at 16:15 Heparin Sodium (Porcine) (Heparin Inj) 5,000 units Q12H SQ Last administered on 12/08/16 18:16; Start 11/05/16 at 17:00; Status Future Hold Naloxone HCl (Narcan Inj) 0.4 mg UNSCH PRN IV SEE LABEL COMMENTS; Start at 16:15 Senna/Docusate Sodium (Dee-Colace) 1 tab BID PO Last administered on 08:42; Start 11/05/16 at 21:00 Magnesium Hydroxide (Milk Of Magnesia Liq) 30 ml Q12H PRN PO MILD - MODERATE CONSTIPATION; Start 11/05/16 at 16:15 Sennosides (Senokot) 17.2 mg Q12H PRN PO MODERATE - SEVERE CONSTIPATION; Start 11/05/16 at 16:15 Bisacodyl (Dulcolax Supp) 10 mg DAILY PRN RECTAL SEVERE CONSITIPATION; Start at 16:15 Lactulose (Lactulose Liq) 30 ml DAILY PRN PO SEVERE CONSITIPATION; Start at 16:15 Acetaminophen/ Hydrocodone Bitart ([place] 7.5-325 Mg) 1 tab Q4H PRN PO PAIN SCALE 4 TO 10; Start 11/05/16 at 16:15; Stop 12/14/16 at 10:38; Status DC Nystatin (Mycostatin Liq) 5 ml QID SWISH-SWAL Last administered on 11/26/16 21 :39; Start 11/05/16 at 18:00; Stop 11/27/16 at 13:26; Status DC Vancomycin HCl 1000 mg/Sodium Chloride 250 ml @ 250 mls/hr ONCE ONCE IV Last administered on 11/07/16 11:27; Start 11/07/16 at 12:00; Stop 11/07/16 at 12:59 ; Status DC Valacyclovir HCl (Valtrex) 500 mg Q8HR PO Last administered on 11/15/16 20:39 ; Start 11/08/16 at 09:15; Stop 11/15/16 at 23:00; Status DC Sodium Bicarbonate (Sodium Bicarbonate) 650 mg Q12HR PO Last administered on 07:49; Start 11/09/16 at 21:00; Stop 11/16/16 at 16:54; Status DC Ceftriaxone Sodium 2000 mg/ Sodium Chloride 100 ml @ 200 mls/hr Q24H IV Last administered on 11/21/16 15:59; Start 11/09/16 at 18:00; Stop 11/21/16 at 16:39 ; Status DC Metoprolol Tartrate (Lopressor) 12.5 mg Q12HR PO Last administered on 10:02; Start 11/10/16 at 18:00; Stop 11/13/16 at 14:05; Status DC Levofloxacin (Levaquin) 250 mg Q48H PO Last administered on 11/15/16 17:57; Start 11/11/16 at 16:00; Stop 11/16/16 at 10:23; Status DC Azithromycin (Zithromax) 250 mg DAILY PO Last administered on 11/21/16 08:41; Start 11/11/16 at 15:15; Stop 11/21/16 at 16:45; Status DC Sodium Bicarbonate 75 meq/Sodium Chloride 1,075 ml @ 75 mls/hr [id number] IV Last administered on 11/16/16 00:00; Start 11/12/16 at 21:00; Stop 11/16/16 at 06:05; Status DC Sodium Chloride 250 ml @ 15 mls/hr ONCE ONCE IV ; Start 11/13/16 at 06:00; Stop 11/13/16 at 22:39; Status DC Metoprolol Tartrate (Lopressor) 25 mg Q12HR PO Last administered on 11/16/16 07:49; Start 11/13/16 at 21:00; Stop 11/16/16 at 16:54; Status DC Metoprolol Tartrate (Lopressor) 12.5 mg ONCE ONCE PO Last administered on 11/13 16:16; Start 11/13/16 at 14:30; Stop 11/13/16 at 14:31; Status DC Miscellaneous (Pill Splitter) 1 ea UNSCH PRN OTHER SEE LABEL COMMENTS; Start at 14:30 Sodium Chloride 1,000 ml @ 0 mls/hr Q0M PRN IV For Prime & Rinse Back Last administered on 12/22/16 09:53; Start 11/13/16 at 17:02 Heparin Sodium (Porcine) (Heparin Inj) 8,000 units UNSCH PRN IVF WITH DIALYSIS Last administered on 12/29/16 10:30; Start 11/13/16 at 17:15 Sodium Chloride 1,000 ml @ 200 mls/hr Q5H PRN IV WITH DIALYSIS; Start 11/13/16 at 17:02 Sodium Chloride 1,000 ml @ 0 mls/hr Q0M PRN IV WITH DIALYSIS; Start 11/13/16 at 17:02 Mannitol (Mannitol Inj) 12.5 gm UNSCH PRN IV WITH DIALYSIS; Start 11/13/16 at 17:15 Albumin Human (Albumin 25% Inj) 25 gm UNSCH PRN IV WITH DIALYSIS Last administered on 12/27/16 09:31; Start 11/13/16 at 17:15 Sodium Chloride (NS Flush) 5 ml UNSCH PRN IV FLUSH WITH DIALYSIS Last administered on 12/17/16 10:57; Start 11/13/16 at 17:15 Heparin Sodium (Porcine) (Heparin Inj) UNSCH PRN .XX WITH DIALYSIS Last administered on 12/29/16 11:05; Start 11/13/16 at 17:15 Gentamicin Sulfate (Gentamicin (Dialysis) Inj) 20 mg UNSCH PRN IV WITH DIALYSIS Last administered on 12/29/16 11:05; Start 11/13/16 at 17:15 Ondansetron HCl (Zofran Inj) 4 mg UNSCH PRN IV WITH DIALYSIS Last administered on 12/09/16 20:25; Start 11/13/16 at 17:15 Acetaminophen (Tylenol) 650 mg UNSCH PRN PO for headach, pain, temp > 101F Last administered on 11/21/16 12:27; Start 11/13/16 at 17:15 Diphenhydramine HCl (Benadryl) 25 mg UNSCH PRN PO for hives/itching/anaphylaxis ; Start 11/13/16 at 17:15 Nitroglycerin (Nitrostat Sl) 0.4 mg UNSCH PRN SL CHEST PAIN; Start 11/13/16 at 17:15 Clonidine (Catapres) 0.1 mg UNSCH PRN PO for BP > 170/100 X 2 readings Last administered on 12/08/16 13:25; Start 11/13/16 at 17:15 Gelatin (Gelfoam 12 Mm/7 Mm Top) 1 foam UNSCH PRN TOP SEE LABEL COMMENTS; Start 11/13/16 at 17:15 Heparin Sodium (Porcine) (*HEPARIN INJ Periprocedural ONLY) 10,000 units STK- MED ONCE .ROUTE Last administered on 11/14/16 11:29; Start 11/14/16 at 11:26; Stop 11/14/16 at 11:27; Status DC Sodium Chloride (NS Flush) UNSCH PRN IVF SEE PROTOCOL; Start 11/14/16 at 11:45 ; Stop 11/29/16 at 19:51; Status DC Heparin Sodium (Porcine) (Heparin Inj) UNSCH PRN IV FLUSH SEE PROTOCOL Last administered on 11/29/16 10:25; Start 11/14/16 at 11:45; Stop 11/29/16 at 19:51; Status DC Potassium Bicarb/ Potassium Chloride (K-Lyte Cl Eff) 50 meq ONCE ONCE PO Last administered on 11/16/16 06:37; Start 11/16/16 at 06:00; Stop 11/16/16 at 06:02; Status DC Potassium Chloride 100 ml @ 50 mls/hr Q2H IV Last administered on 11/16/16 07 :49; Start 11/16/16 at 06:00; Stop 11/16/16 at 10:04; Status DC Levofloxacin (Levaquin) 250 mg Q24H PO Last administered on 12/07/16 16:24; Start 11/16/16 at 16:00; Stop 12/08/16 at 12:55; Status DC Metoprolol Tartrate (Lopressor) 50 mg Q12HR PO Last administered on 12/02/16 08 :53; Start 11/16/16 at 21:00; Status Future Hold Valacyclovir HCl (Valtrex) 500 mg DAILY PO Last administered on 11/22/16 08:36 ; Start 11/17/16 at 10:45; Stop 11/22/16 at 08:59; Status DC Amlodipine Besylate (Norvasc) 5 mg DAILY PO Last administered on 12/02/16 08:53 ; Start 11/19/16 at 12:00; Status Future Hold Ethambutol HCl (Myambutol) 800 mg DAILY PO Last administered on 12/03/16 14:22 ; Start 11/21/16 at 18:00; Stop 12/03/16 at 16:35; Status DC Clarithromycin (Biaxin) 500 mg Q12HR PO Last administered on 12/30/16 20:42; Start 11/21/16 at 21:00 Acyclovir (Zovirax) 400 mg Q12HR PO Last administered on 12/03/16 14:22; Start 11/23/16 at 12:30; Stop 12/03/16 at 18:16; Status DC Trimethoprim/ Sulfamethoxazole (Bactrim Ds 800-160 Mg) 1 tab MoWeFr@09 PO Last administered on 12/21/16 09:33; Start 11/25/16 at 09:00; Stop 12/22/16 at 14:14 ; Status DC Fluconazole (Diflucan) 200 mg ONCE ONCE PO Last administered on 11/26/16 12:46 ; Start 11/26/16 at 07:45; Stop 11/26/16 at 07:46; Status DC Fluconazole (Diflucan) 100 mg DAILY PO Last administered on 12/09/16 10:19; Start 11/27/16 at 09:00; Stop 12/09/16 at 15:27; Status DC Fentanyl Citrate (fentaNYL INJ) 100 mcg STK-MED ONCE .ROUTE Last administered on 11/29/16 13:50; Start 11/29/16 at 13:50; Stop 11/29/16 at 13:51; Status DC Midazolam HCl (Versed Inj) 2 mg STK-MED ONCE .ROUTE Last administered on 13:50; Start 11/29/16 at 13:50; Stop 11/29/16 at 13:51; Status DC Midazolam HCl (Versed Inj) 2 mg STK-MED ONCE .ROUTE ; Start 11/29/16 at 13:50; Stop 11/29/16 at 13:51; Status DC Fentanyl Citrate (fentaNYL INJ) 100 mcg STK-MED ONCE .ROUTE ; Start 11/29/16 at 13:51; Stop 11/29/16 at 13:52; Status DC Heparin Sodium (Porcine) (*HEPARIN INJ Periprocedural ONLY) 10,000 units STK- MED ONCE .ROUTE Last administered on 11/29/16 14:08; Start 11/29/16 at 14:08; Stop 11/29/16 at 14:09; Status DC Lidocaine/ Epinephrine (Xylocaine-Epi 2%-1:100,000 Inj) 20 ml STK-MED ONCE .ROUTE ; Start 11/29/16 at 14:09; Stop 11/29/16 at 14:10; Status DC Lidocaine/ Epinephrine (Xylocaine-Epi 2%-1:100,000 Inj) 20 ml STK-MED ONCE .ROUTE Last administered on 11/29/16 14:10; Start 11/29/16 at 14:10; Stop at 14:11; Status DC Sodium Chloride (NS Flush) UNSCH PRN IVF SEE PROTOCOL; Start 11/29/16 at 18:15 Heparin Sodium (Porcine) (Heparin Inj) UNSCH PRN IV FLUSH SEE PROTOCOL Last administered on 12/06/16 10:15; Start 11/29/16 at 18:15 Fentanyl Citrate (fentaNYL INJ) 100 mcg STK-MED ONCE .ROUTE Last administered on 12/01/16 13:16; Start 12/01/16 at 13:16; Stop 12/01/16 at 13:17; Status DC Midazolam HCl (Versed Inj) 2 mg STK-MED ONCE .ROUTE Last administered on 13:16; Start 12/01/16 at 13:16; Stop 12/01/16 at 13:17; Status DC Lidocaine HCl (Xylocaine 1% Inj) 20 ml STK-MED ONCE .ROUTE Last administered on 12/01/16 13:45; Start 12/01/16 at 13:45; Stop 12/01/16 at 13:46; Status DC Sodium Bicarbonate 50 ml @ As Directed STK-MED ONCE .ROUTE Last administered on 12/01/16 13:45; Start 12/01/16 at 13:45; Stop 12/01/16 at 13:46; Status DC Lactobacillus Acidophilus (Lactinex) 1 tab Q12HR PO Last administered on 20:41; Start 12/02/16 at 10:00 Pharmacy Profile Note 0 ml @ 0 mls/hr UNSCH OTHER ; Start 12/03/16 at 17:00; Status Cancel Ethambutol HCl (Myambutol) 800 mg DAILY PO Last administered on 12/30/16 08:42 ; Start 12/04/16 at 09:00 Ganciclovir Sodium 81 mg/ Sodium Chloride 101.62 ml @ 101.62 mls/hr WITH DIALYSIS IV ; Start 12/04/16 at 09:00; Stop 12/10/16 at 12:45; Status DC Ganciclovir Sodium 81 mg/ Sodium Chloride 101.62 ml @ 101.62 mls/hr ONCE ONCE IV Last administered on 12/03/16 22:38; Start 12/03/16 at 21:00; Stop 12/03/16 at 21:59; Status DC Ganciclovir Sodium 41 mg/ Sodium Chloride 100.82 ml @ 100.82 mls/hr TuThSa IV ; Start 12/27/16 at 14:00; Stop 12/27/16 at 14:00; Status DC Epoetin Abel (Epogen Inj) 10,000 units UNSCH PRN IV WITH DIALYSIS Last administered on 12/29/16 11:06; Start 12/06/16 at 09:30 Levofloxacin (Levaquin) 250 mg Q48H PO Last administered on 12/08/16 18:16; Start 12/08/16 at 16:00; Stop 12/09/16 at 15:27; Status DC Sodium Chloride 250 ml @ 15 mls/hr ONCE ONCE IV Last administered on 10:21; Start 12/08/16 at 17:00; Stop 12/09/16 at 09:39; Status DC Acetaminophen (Tylenol) 650 mg Q4H PRN PO SEE LABEL COMMENTS; Start 12/08/16 at 17:00; Stop 12/09/16 at 16:59; Status DC Diphenhydramine HCl (Benadryl) 25 mg Q4H PRN PO SEE LABEL COMMENTS; Start 12/08 at 17:00; Stop 12/09/16 at 16:59; Status DC Furosemide (Lasix Inj) 20 mg ONCE ONCE IV Last administered on 12/09/16 14:08 ; Start 12/08/16 at 17:00; Stop 12/08/16 at 17:02; Status DC Rifampin (Rifampin) 300 mg Q12HR PO Last administered on 12/30/16 20:42; Start 12/09/16 at 21:00 Ganciclovir Sodium 81 mg/ Sodium Chloride 101.62 ml @ 101.62 mls/hr TuThSa IV Last administered on 12/24/16 15:58; Start 12/10/16 at 12:45; Stop 12/24/16 at 23:00; Status DC Bupivacaine HCl/ Epinephrine Bitart (Sensorcaine-Epinephrine Pf 0.25% Inj) 10 ml ONCE ONCE INFIL ; Start 12/14/16 at 09:45; Stop 12/14/16 at 10:17; Status DC Sodium Chloride (NS Flush) 2 ml UNSCH PRN IV FLUSH FLUSH AFTER USING IV ACCESS ; Start 12/14/16 at 10:45 Sodium Chloride (NS Flush) 2 ml BID IV FLUSH Last administered on 12/30/16 20: 42; Start 12/14/16 at 21:00 Acetaminophen/ Hydrocodone Bitart ([place] 5-325 Mg) 1 tab Q4H PRN PO PAIN SCALE 1 TO 5; Start 12/14/16 at 10:45 Acetaminophen/ Hydrocodone Bitart ([place] 5-325 Mg) 2 tab Q4H PRN PO PAIN SCALE 6 TO 10; Start 12/14/16 at 10:45 Miscellaneous Information (Post-op Orders (for Pharmacy)) STAT ONCE XX Last administered on 12/14/16 10:45; Start 12/14/16 at 10:45; Stop 12/14/16 at 10:46 ; Status DC Miscellaneous Information ALL NURSING DEPARTME... UNSCH PRN .XX SEE LABEL COMMENTS; Start 12/14/16 at 11:30; Stop 12/15/16 at 11:29; Status DC Sodium Biphosphate/ Sodium Phosphate (Fleets Enema (Adult)) 133 ml ONCE ONCE RECTAL Last administered on 12/20/16 09:22; Start 12/20/16 at 09:15; Stop at 09:16; Status DC Influenza Virus Vaccine (Flu (Quadrivalent) Vaccine Inj) 0.5 ml ONCE ONCE IM Last administered on 12/24/16 12:20; Start 12/24/16 at 10:00; Stop 12/24/16 at 10:01; Status DC Naproxen (Naprosyn) 500 mg ONCE ONCE PO Last administered on 12/25/16 01:12; Start 12/25/16 at 01:15; Stop 12/25/16 at 01:16; Status DC Valganciclovir (Valcyte) 450 mg DAILY PO Last administered on 12/30/16 08:42; Start 12/26/16 at 13:45 Potassium Chloride (KCl) 40 meq ONCE ONCE PO Last administered on 12/30/16 06 :05; Start 12/30/16 at 05:00; Stop 12/30/16 at 05:07; Status DC Prednisone (Deltasone) 40 mg DAILY PO Last administered on 12/30/16 15:14; Start 12/30/16 at 14:15; Stop 01/02/17 at 14:14 Side: Right A/P Problem List: (1) Renal failure ICD Code: N19 - Unspecified kidney failure Status: Acute (2) Sepsis ICD Code: A41.9 - Sepsis, unspecified organism Status: Acute (3) UTI (urinary tract infection) ICD Code: N39.0 - Urinary tract infection, site not specified (4) Chronic kidney disease, stage V ICD Code: N18.5 - Chronic kidney disease, stage 5 (5) HIV (human immunodeficiency virus infection) ICD Code: B20 - Human immunodeficiency virus [HIV] disease (6) Anemia ICD Code: D64.9 - Anemia, unspecified (7) Hypertension ICD Code: I10 - Essential (primary) hypertension (8) Medical non-compliance ICD Code: Z91.19 - Patient's noncompliance with other medical treatment and regimen Assessment and Plan A/P Severe sepsis secondary to UTI, pneumonia-resolved AIDS-noncompliance intermittent fever - Status post treatment with Zosyn. Patient is immunocompromised, noncompliant with HAART for the last 2 months. - HSV positive. Continue Biaxin, Valganciclovir, Ethambutol,Rifampin per infectious disease . Blood mycobacterial culture growing acid fast organism. -trial of prednisone. - ID following. Acute renal failure superimposed on chronic kidney disease stage V - Nephrology following, remains non-oliguric. -Recent kidney biopsy FSGS, with 2 out of 7 Glomeruli sclerosis - HD per nephrology. -Patient would like to have a PD catheter placed HIV/AIDS - CD4 count less than 20. Patient admitted to being noncompliant with HAART meds for the last 2 months. He has been counseled. 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 Oral thrush, improved: treated with Diflucan Anemia of chronic disease -noted a drop in H/H. - will transfuse with PRBC today. -on Epogen -Continue to monitor H&H d/w the RN. Discharge Planning still with on and off fever. ID following. Problem Qualifiers (1) Renal failure: (2) Sepsis: Neelima Burgess MD Dec 31, 2016 09:04
[2016-12-31] MEDS: ALBUMIN HUMAN 25% 25 GM/100 ML BAGP IV PRN (09:58)
[2016-12-31] MEDS: HEPARIN SODIUM - IV 10,000 UNITS/10 ML VIAL IVF PRN (09:59)
[2016-12-31] MEDS: GENTAMICIN SULFATE (DIALYSIS USE ONLY) 20 MG/2 ML VIAL IV PRN (09:59)
[2016-12-31] MEDS: EPOETIN ALFA 10,000 UNITS/ML VIAL IV PRN (10:00)
[2016-12-31 10:17] LABS: BANDS 26 % (0-6); CORRECTED NUCLEATED RBC 1 /100 WBC (0-0); EOSINOPHILS 1 % (0-4); NEUTROPHIL # MANUAL DIFF 1.6 TH/MM3 (1.8-7.7); PLATELET ESTIMATE SMEAR NORMAL (NORMAL); PLATELET MORPHOLOGY NORMAL (NORMAL); POLYS (SEG NEUTROPHILS) 51 % (16-70); SCAN/DIFF FINAL DIFF MANUAL; WBC DIFF SAMPLE 100
--- NOTE | 2016-12-31 11:13 | HHI.NPPN ---
Subjective History of Present Illness 50-year-old male with past medical history of HIV disease for more than 20 years and history of renal stone who came to the hospital with complaint of back pain. The patient has back pain going on for the last 2 months off and on and he came to the emergency department yesterday with worsening pain. Additional Remarks Patient is alert, now on HD, no abd. pain, still having fever off and on, eating better. Review of Systems General Constitutional: Fatigue Cardiovascular Cardiac: MIRZA Objective Data Data Vital Signs Date Time Temp Pulse Resp B/P (MAP) Pulse Ox O2 Delivery O2 Flow Rate FiO2 12/31/16 08:00 97.4 65 18 130/87 (101) 100 12/31/16 04:00 97.3 91 18 116/78 (91) 100 12/31/16 00:00 97.5 76 16 128/86 (100) 100 12/30/16 20:00 98.3 87 16 114/89 (97) 100 12/30/16 20:00 Room Air 12/30/16 20:00 88 12/30/16 16:02 103.1 113 20 135/86 (102) 99 12/30/16 11:15 99.5 101 16 130/71 (90) 100 -: 12/31/16 0653 12/30/16 0252 Physical Exam General Appearance: No Acute Distress, Comfortable Eyes Eye Exam: Pupils Equal Throat Throat Exam: Oral Mucosa [place] & Moist Pulmonary Resp Exam: Breath Sounds Equal, No Distress, Rhonchi, Decreased Bases Cardiology CV Exam: Regular, Normal Sinus Rhythm Gastrointestinal/Abdomen GI Exam: Soft, Non-Tender, Bowel Sounds Present Extremeties Extremities Exam: No Edema Neurologic Neuro Exam: Alert, Awake, Oriented Psychiatric Psych Exam: Appropriate Responses Assessment/Plan Assessment Summary: MIKE/Acute Renal Failure Problem List: (1) Renal failure ICD Codes: N19 - Unspecified kidney failure Status: Acute (2) Sepsis ICD Codes: A41.9 - Sepsis, unspecified organism Status: Acute (3) Open wound of scrotum ICD Codes: S31.30XA - Unspecified open wound of scrotum and testes, initial encounter Status: Acute Plan c/o blurry vision left eye Remain non oliguric. SPEP was negative. Complements normal, other serology also negative. BP is better, on Metoprolol to 50 mg BID. If renal function will not improve, will consider Renal Biopsy once infection is controlled. Fever pattern is better, ID is following. Now on Bactrim, Acyclovir, Clarithromycin and Ethambutol. No improvement in renal function. Possibly has End stage renal disease. Got PermCath. 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 No need to repeat the renal Biopsy as clinically he is showing no improvement, and the with advance HIV , the treatment options are limited, cannot be given immunosuppressive drugs. I discussed this in detail with patient. Now he change his mind and want to go for PD from ID stand point. He understand increase risk of infection due to advance HIV. Has PD catheter done. Now on Valganciclovir, ID following. Gallium scan is negative. HD to continue TTS. On Epogen , follow Hgb. Transfuse as needed. HD now, tolerating well. Hgb. decreased, 6.7, on Epogen, for transfusion. Problem Qualifiers (1) Renal failure: (2) Sepsis: Kwadwo Shah MD Dec 31, 2016 11:13
[2016-12-31] MEDS: LACTOBACILLUS ACIDOPHILUS TAB PO SCH ×2 (13:46→21:31)
[2016-12-31] MEDS: CLARITHROMYCIN 500 MG TAB PO SCH ×2 (13:47→21:31)
[2016-12-31] MEDS: predniSONE 20 MG TAB PO SCH (13:47)
[2016-12-31] MEDS: ETHAMBUTOL HCL 400 MG TAB PO SCH (13:47)
[2016-12-31] MEDS: RIFAMPIN 150 MG CAP PO SCH ×2 (13:47→21:31)
[2017-01-01] VITALS (8 sets, daily range): BP systolic 133–155; BP diastolic 83–102; PULSE 64–102; RESP 16–19; TEMP 97.3–98.5; O2SAT 99–100
[2017-01-01 08:12] LABS: AUTOMATED NEUTROPHIL # 1.3 TH/MM3 (1.8-7.7); BASOPHIL % 0.6 % (0.0-2.0); EOSINOPHIL % 0.4 % (0.0-4.0); HEMATOCRIT 25.7 % (39.0-51.0); LYMPH % 9.8 % (9.0-44.0); LYMPHOCYTE # 0.2 TH/MM3 (1.0-4.8); MEAN CELL VOLUME 86.3 FL (80.0-100.0); MEAN CORPUSCULAR HEMOGLOBIN 28.5 PG (27.0-34.0); MONO % 10.8 % (0.0-8.0); NEUT % 78.4 % (16.0-70.0); PLATELET COUNT 181 TH/MM3 (150-450); RED BLOOD COUNT 2.98 MIL/MM3 (4.50-5.90); RED CELL DISTRIBUTION WIDTH 16.6 % (11.6-17.2); WHITE BLOOD COUNT 1.6 TH/MM3 (4.0-11.0)
[2017-01-01 08:16] LABS: HEMO FLAGS AUTO DIFF
--- NOTE | 2017-01-01 08:34 | HHI.PR ---
Subjective Remarks in no acute distress. no fever. no new complaints. Objective Vitals Vital Signs Date Time Temp Pulse Resp B/P (MAP) Pulse Ox O2 Delivery O2 Flow Rate FiO2 01/01/17 07:15 Room Air 01/01/17 04:00 97.5 71 16 155/102 (119) 100 01/01/17 04:00 Room Air 01/01/17 00:00 Room Air 01/01/17 00:00 98.0 72 18 150/98 (115) 100 12/31/16 20:00 Room Air 12/31/16 20:00 97.9 91 18 117/81 (93) 99 12/31/16 20:00 92 12/31/16 16:00 98.1 102 18 130/74 (92) 97 12/31/16 14:50 98.3 80 20 130/90 12/31/16 14:08 97.3 81 20 127/80 I/O 12/31/16 12/31/16 12/31/16 01/01/17 01/01/17 01/01/17 07:00 15:00 23:00 07:00 15:00 23:00 Intake Total 5 ml 405 ml 475 ml Output Total 1800 ml 150 ml Balance -1795 ml 405 ml 325 ml Intake Oral 475 ml Packed Cells 400 ml Blood Product IV Normal Saline Flush 5 ml 5 ml Output Urine Total 150 ml Hemodialysis 1800 ml # Voids 2 # Bowel Movements 0 0 Result Diagram: 01/01/17 0613 12/30/16 0252 Imaging Last Impressions Gallium Scan Nuclear Medicine 12/19/16 0000 Signed Impressions: Service Date/Time: Monday, December 19, 2016 13:19 - CONCLUSION: Negative for occult inflammatory process. Enzo Isbell MD FACR Upper Extremity Ultrasound 12/07/16 0000 Signed Impressions: Service Date/Time: Wednesday, December 07, 2016 10:11 - CONCLUSION: Venous mapping as above. Enzo Isbell MD FACR Renal Biopsy CT 12/01/16 0600 Signed Impressions: Service Date/Time: November 14:17 - CONCLUSION: Uncomplicated CT guided biopsy. Alexis Adhikari MD Central Venous Line 11/29/16 0000 Signed Impressions: Service Date/Time: Tuesday, November 29, 2016 00:00 - CONCLUSION: Uncomplicated catheter removal. Solitario Diaz MD Catheter Placement X-Ray 11/29/16 0000 Signed Impressions: Service Date/Time: Tuesday, November 29, 2016 13:58 - CONCLUSION: Uncomplicated PermaCath placement as above. Solitario Diaz MD Tumor Localization 11/14/16 0000 Signed Impressions: Service Date/Time: Monday, November 14, 2016 11:38 - CONCLUSION: Negative scan Solitario Diaz MD Chest X-Ray 11/13/16 0000 Signed Impressions: Service Date/Time: Sunday, November 13, 2016 16:02 - CONCLUSION: No acute cardiopulmonary disease. Quincy Medellin MD Renal Ultrasound 11/05/16 0000 Signed Impressions: Service Date/Time: Saturday, November 05, 2016 19:17 - CONCLUSION: Diffusely echogenic kidneys indicating medical renal disease. Dorian Murry MD Abdomen/Pelvis CT 11/05/16 0000 Signed Impressions: Service Date/Time: Saturday, November 05, 2016 17:19 - CONCLUSION: 1. 4 mm calculus in the right renal pelvis/ureteropelvic junction with mild adjacent perinephric/periureteral stranding. No evidence of hydronephrosis. 2. 1 cm round hypodensity in the anterior right mid kidney statistically most likely to represent a cyst. 3. 3.7 cm hypodensity in the right lobe of the liver air the dome of the diaphragm. This finding is nonspecific on noncontrast CT. The most likely etiologies include hemangioma and cyst. It could be further evaluated with ultrasound nonemergent followup MRI of the abdomen. 4. Mild dilated proximal right common iliac artery. Dorian Murry MD Objective Remarks GENERAL: This is a well-nourished, well-developed patient, in no apparent distress. CARDIOVASCULAR: Regular rate and regular rhythm without murmurs, gallops, or rubs. RESPIRATORY: Clear to auscultation. Breath sounds equal bilaterally. No wheezes , rales, or rhonchi. GASTROINTESTINAL: Abdomen soft, non-tender, nondistended. Normal, active bowel sounds MUSCULOSKELETAL: Extremities without clubbing, cyanosis, or edema. NEURO: Alert & Oriented x4 to person, place, time, situation. Moves all ext x4 Procedures 11/14/16 hemodialysis catheter placement, right internal jugular 12/14 PD cath placement Medications and IVs Current Medications Sodium Chloride 1,000 ml @ 1,000 mls/hr Q1H ONCE IV Last administered on 14:25; Start 11/05/16 at 13:54; Stop 11/05/16 at 14:53; Status DC Sodium Chloride 1,000 ml @ 1,000 mls/hr Q1H ONCE IV Last administered on 15:12; Start 11/05/16 at 13:54; Stop 11/05/16 at 14:53; Status DC Sodium Chloride 100 ml @ 1,000 mls/hr Q6M ONCE IV Last administered on 15:32; Start 11/05/16 at 13:54; Stop 11/05/16 at 13:59; Status DC Vancomycin HCl 1050 mg/Sodium Chloride 260.5 ml @ 250 mls/hr ONCE ONCE IV Last administered on 11/05/16 15:06; Start 11/05/16 at 14:00; Stop 11/05/16 at 15:02; Status DC Piperacillin Sod/ Tazobactam Sod 50 ml @ 100 mls/hr ONCE ONCE IV Last administered on 11/05/16 16:38; Start 11/05/16 at 14:00; Stop 11/05/16 at 14:29 ; Status DC Acetaminophen (Tylenol) 1,000 mg ONCE ONCE PO Last administered on 11/05/16 16:38; Start 11/05/16 at 15:45; Stop 11/05/16 at 15:46; Status DC Abacavir Sulfate (Ziagen) 300 mg BID PO ; Start 11/05/16 at 21:00; Stop at 21:00; Status DC Lamivudine (Epivir) 150 mg BID PO ; Start 11/05/16 at 21:00; Stop 11/05/16 at 21 :00; Status DC Lopinavir/ Ritonavir (Kaletra 200-50 Mg) 1 tab BID PO ; Start 11/05/16 at 21:00 ; Stop 11/05/16 at 21:00; Status DC Pharmacy Profile Note 0 ml @ 0 mls/hr UNSCH OTHER ; Start 11/05/16 at 16:15; Stop 11/08/16 at 09:10; Status DC Piperacillin Sod/ Tazobactam Sod 50 ml @ 100 mls/hr Q8H IV Last administered on 11/09/16 16:35; Start 11/06/16 at 00:00; Stop 11/09/16 at 17:24; Status DC Sodium Chloride 1,000 ml @ 83 mls/hr Q12H3M IV Last administered on 11/09/16 05:17; Start 11/05/16 at 17:00; Stop 11/09/16 at 16:19; Status DC Sodium Chloride (NS Flush) 2 ml UNSCH PRN IV FLUSH FLUSH AFTER USING IV ACCESS ; Start 11/05/16 at 16:15 Sodium Chloride (NS Flush) 2 ml BID IV FLUSH Last administered on 12/14/16 07: 26; Start 11/05/16 at 21:00; Stop 12/14/16 at 10:39; Status DC Acetaminophen (Tylenol) 650 mg Q4H PRN PO TEMP > 100.4 Last administered on 15:36; Start 11/05/16 at 16:15 Ondansetron HCl (Zofran Inj) 4 mg Q6H PRN IVP NAUSEA OR VOMITING Last administered on 12/22/16 21:14; Start 11/05/16 at 16:15 Heparin Sodium (Porcine) (Heparin Inj) 5,000 units Q12H SQ Last administered on 12/08/16 18:16; Start 11/05/16 at 17:00; Status Future Hold Naloxone HCl (Narcan Inj) 0.4 mg UNSCH PRN IV SEE LABEL COMMENTS; Start at 16:15 Senna/Docusate Sodium (Dee-Colace) 1 tab BID PO Last administered on 08:42; Start 11/05/16 at 21:00 Magnesium Hydroxide (Milk Of Magnesia Liq) 30 ml Q12H PRN PO MILD - MODERATE CONSTIPATION; Start 11/05/16 at 16:15 Sennosides (Senokot) 17.2 mg Q12H PRN PO MODERATE - SEVERE CONSTIPATION; Start 11/05/16 at 16:15 Bisacodyl (Dulcolax Supp) 10 mg DAILY PRN RECTAL SEVERE CONSITIPATION; Start at 16:15 Lactulose (Lactulose Liq) 30 ml DAILY PRN PO SEVERE CONSITIPATION; Start at 16:15 Acetaminophen/ Hydrocodone Bitart ([place] 7.5-325 Mg) 1 tab Q4H PRN PO PAIN SCALE 4 TO 10; Start 11/05/16 at 16:15; Stop 12/14/16 at 10:38; Status DC Nystatin (Mycostatin Liq) 5 ml QID SWISH-SWAL Last administered on 11/26/16 21 :39; Start 11/05/16 at 18:00; Stop 11/27/16 at 13:26; Status DC Vancomycin HCl 1000 mg/Sodium Chloride 250 ml @ 250 mls/hr ONCE ONCE IV Last administered on 11/07/16 11:27; Start 11/07/16 at 12:00; Stop 11/07/16 at 12:59 ; Status DC Valacyclovir HCl (Valtrex) 500 mg Q8HR PO Last administered on 11/15/16 20:39 ; Start 11/08/16 at 09:15; Stop 11/15/16 at 23:00; Status DC Sodium Bicarbonate (Sodium Bicarbonate) 650 mg Q12HR PO Last administered on 07:49; Start 11/09/16 at 21:00; Stop 11/16/16 at 16:54; Status DC Ceftriaxone Sodium 2000 mg/ Sodium Chloride 100 ml @ 200 mls/hr Q24H IV Last administered on 11/21/16 15:59; Start 11/09/16 at 18:00; Stop 11/21/16 at 16:39 ; Status DC Metoprolol Tartrate (Lopressor) 12.5 mg Q12HR PO Last administered on 10:02; Start 11/10/16 at 18:00; Stop 11/13/16 at 14:05; Status DC Levofloxacin (Levaquin) 250 mg Q48H PO Last administered on 11/15/16 17:57; Start 11/11/16 at 16:00; Stop 11/16/16 at 10:23; Status DC Azithromycin (Zithromax) 250 mg DAILY PO Last administered on 11/21/16 08:41; Start 11/11/16 at 15:15; Stop 11/21/16 at 16:45; Status DC Sodium Bicarbonate 75 meq/Sodium Chloride 1,075 ml @ 75 mls/hr [id number] IV Last administered on 11/16/16 00:00; Start 11/12/16 at 21:00; Stop 11/16/16 at 06:05; Status DC Sodium Chloride 250 ml @ 15 mls/hr ONCE ONCE IV ; Start 11/13/16 at 06:00; Stop 11/13/16 at 22:39; Status DC Metoprolol Tartrate (Lopressor) 25 mg Q12HR PO Last administered on 11/16/16 07:49; Start 11/13/16 at 21:00; Stop 11/16/16 at 16:54; Status DC Metoprolol Tartrate (Lopressor) 12.5 mg ONCE ONCE PO Last administered on 11/13 16:16; Start 11/13/16 at 14:30; Stop 11/13/16 at 14:31; Status DC Miscellaneous (Pill Splitter) 1 ea UNSCH PRN OTHER SEE LABEL COMMENTS; Start at 14:30 Sodium Chloride 1,000 ml @ 0 mls/hr Q0M PRN IV For Prime & Rinse Back Last administered on 12/22/16 09:53; Start 11/13/16 at 17:02 Heparin Sodium (Porcine) (Heparin Inj) 8,000 units UNSCH PRN IVF WITH DIALYSIS Last administered on 12/31/16 09:59; Start 11/13/16 at 17:15 Sodium Chloride 1,000 ml @ 200 mls/hr Q5H PRN IV WITH DIALYSIS; Start 11/13/16 at 17:02 Sodium Chloride 1,000 ml @ 0 mls/hr Q0M PRN IV WITH DIALYSIS; Start 11/13/16 at 17:02 Mannitol (Mannitol Inj) 12.5 gm UNSCH PRN IV WITH DIALYSIS; Start 11/13/16 at 17:15 Albumin Human (Albumin 25% Inj) 25 gm UNSCH PRN IV WITH DIALYSIS Last administered on 12/31/16 09:58; Start 11/13/16 at 17:15 Sodium Chloride (NS Flush) 5 ml UNSCH PRN IV FLUSH WITH DIALYSIS Last administered on 12/17/16 10:57; Start 11/13/16 at 17:15 Heparin Sodium (Porcine) (Heparin Inj) UNSCH PRN .XX WITH DIALYSIS Last administered on 12/29/16 11:05; Start 11/13/16 at 17:15 Gentamicin Sulfate (Gentamicin (Dialysis) Inj) 20 mg UNSCH PRN IV WITH DIALYSIS Last administered on 12/31/16 09:59; Start 11/13/16 at 17:15 Ondansetron HCl (Zofran Inj) 4 mg UNSCH PRN IV WITH DIALYSIS Last administered on 12/09/16 20:25; Start 11/13/16 at 17:15 Acetaminophen (Tylenol) 650 mg UNSCH PRN PO for headach, pain, temp > 101F Last administered on 11/21/16 12:27; Start 11/13/16 at 17:15 Diphenhydramine HCl (Benadryl) 25 mg UNSCH PRN PO for hives/itching/anaphylaxis ; Start 11/13/16 at 17:15 Nitroglycerin (Nitrostat Sl) 0.4 mg UNSCH PRN SL CHEST PAIN; Start 11/13/16 at 17:15 Clonidine (Catapres) 0.1 mg UNSCH PRN PO for BP > 170/100 X 2 readings Last administered on 12/08/16 13:25; Start 11/13/16 at 17:15 Gelatin (Gelfoam 12 Mm/7 Mm Top) 1 foam UNSCH PRN TOP SEE LABEL COMMENTS; Start 11/13/16 at 17:15 Heparin Sodium (Porcine) (*HEPARIN INJ Periprocedural ONLY) 10,000 units STK- MED ONCE .ROUTE Last administered on 11/14/16 11:29; Start 11/14/16 at 11:26; Stop 11/14/16 at 11:27; Status DC Sodium Chloride (NS Flush) UNSCH PRN IVF SEE PROTOCOL; Start 11/14/16 at 11:45 ; Stop 11/29/16 at 19:51; Status DC Heparin Sodium (Porcine) (Heparin Inj) UNSCH PRN IV FLUSH SEE PROTOCOL Last administered on 11/29/16 10:25; Start 11/14/16 at 11:45; Stop 11/29/16 at 19:51; Status DC Potassium Bicarb/ Potassium Chloride (K-Lyte Cl Eff) 50 meq ONCE ONCE PO Last administered on 11/16/16 06:37; Start 11/16/16 at 06:00; Stop 11/16/16 at 06:02; Status DC Potassium Chloride 100 ml @ 50 mls/hr Q2H IV Last administered on 11/16/16 07 :49; Start 11/16/16 at 06:00; Stop 11/16/16 at 10:04; Status DC Levofloxacin (Levaquin) 250 mg Q24H PO Last administered on 12/07/16 16:24; Start 11/16/16 at 16:00; Stop 12/08/16 at 12:55; Status DC Metoprolol Tartrate (Lopressor) 50 mg Q12HR PO Last administered on 12/02/16 08 :53; Start 11/16/16 at 21:00; Status Future Hold Valacyclovir HCl (Valtrex) 500 mg DAILY PO Last administered on 11/22/16 08:36 ; Start 11/17/16 at 10:45; Stop 11/22/16 at 08:59; Status DC Amlodipine Besylate (Norvasc) 5 mg DAILY PO Last administered on 12/02/16 08:53 ; Start 11/19/16 at 12:00; Status Future Hold Ethambutol HCl (Myambutol) 800 mg DAILY PO Last administered on 12/03/16 14:22 ; Start 11/21/16 at 18:00; Stop 12/03/16 at 16:35; Status DC Clarithromycin (Biaxin) 500 mg Q12HR PO Last administered on 12/31/16 21:31; Start 11/21/16 at 21:00 Acyclovir (Zovirax) 400 mg Q12HR PO Last administered on 12/03/16 14:22; Start 11/23/16 at 12:30; Stop 12/03/16 at 18:16; Status DC Trimethoprim/ Sulfamethoxazole (Bactrim Ds 800-160 Mg) 1 tab MoWeFr@09 PO Last administered on 12/21/16 09:33; Start 11/25/16 at 09:00; Stop 12/22/16 at 14:14 ; Status DC Fluconazole (Diflucan) 200 mg ONCE ONCE PO Last administered on 11/26/16 12:46 ; Start 11/26/16 at 07:45; Stop 11/26/16 at 07:46; Status DC Fluconazole (Diflucan) 100 mg DAILY PO Last administered on 12/09/16 10:19; Start 11/27/16 at 09:00; Stop 12/09/16 at 15:27; Status DC Fentanyl Citrate (fentaNYL INJ) 100 mcg STK-MED ONCE .ROUTE Last administered on 11/29/16 13:50; Start 11/29/16 at 13:50; Stop 11/29/16 at 13:51; Status DC Midazolam HCl (Versed Inj) 2 mg STK-MED ONCE .ROUTE Last administered on 13:50; Start 11/29/16 at 13:50; Stop 11/29/16 at 13:51; Status DC Midazolam HCl (Versed Inj) 2 mg STK-MED ONCE .ROUTE ; Start 11/29/16 at 13:50; Stop 11/29/16 at 13:51; Status DC Fentanyl Citrate (fentaNYL INJ) 100 mcg STK-MED ONCE .ROUTE ; Start 11/29/16 at 13:51; Stop 11/29/16 at 13:52; Status DC Heparin Sodium (Porcine) (*HEPARIN INJ Periprocedural ONLY) 10,000 units STK- MED ONCE .ROUTE Last administered on 11/29/16 14:08; Start 11/29/16 at 14:08; Stop 11/29/16 at 14:09; Status DC Lidocaine/ Epinephrine (Xylocaine-Epi 2%-1:100,000 Inj) 20 ml STK-MED ONCE .ROUTE ; Start 11/29/16 at 14:09; Stop 11/29/16 at 14:10; Status DC Lidocaine/ Epinephrine (Xylocaine-Epi 2%-1:100,000 Inj) 20 ml STK-MED ONCE .ROUTE Last administered on 11/29/16 14:10; Start 11/29/16 at 14:10; Stop at 14:11; Status DC Sodium Chloride (NS Flush) UNSCH PRN IVF SEE PROTOCOL; Start 11/29/16 at 18:15 Heparin Sodium (Porcine) (Heparin Inj) UNSCH PRN IV FLUSH SEE PROTOCOL Last administered on 12/06/16 10:15; Start 11/29/16 at 18:15 Fentanyl Citrate (fentaNYL INJ) 100 mcg STK-MED ONCE .ROUTE Last administered on 12/01/16 13:16; Start 12/01/16 at 13:16; Stop 12/01/16 at 13:17; Status DC Midazolam HCl (Versed Inj) 2 mg STK-MED ONCE .ROUTE Last administered on 13:16; Start 12/01/16 at 13:16; Stop 12/01/16 at 13:17; Status DC Lidocaine HCl (Xylocaine 1% Inj) 20 ml STK-MED ONCE .ROUTE Last administered on 12/01/16 13:45; Start 12/01/16 at 13:45; Stop 12/01/16 at 13:46; Status DC Sodium Bicarbonate 50 ml @ As Directed STK-MED ONCE .ROUTE Last administered on 12/01/16 13:45; Start 12/01/16 at 13:45; Stop 12/01/16 at 13:46; Status DC Lactobacillus Acidophilus (Lactinex) 1 tab Q12HR PO Last administered on 21:31; Start 12/02/16 at 10:00 Pharmacy Profile Note 0 ml @ 0 mls/hr UNSCH OTHER ; Start 12/03/16 at 17:00; Status Cancel Ethambutol HCl (Myambutol) 800 mg DAILY PO Last administered on 12/31/16 13:47 ; Start 12/04/16 at 09:00 Ganciclovir Sodium 81 mg/ Sodium Chloride 101.62 ml @ 101.62 mls/hr WITH DIALYSIS IV ; Start 12/04/16 at 09:00; Stop 12/10/16 at 12:45; Status DC Ganciclovir Sodium 81 mg/ Sodium Chloride 101.62 ml @ 101.62 mls/hr ONCE ONCE IV Last administered on 12/03/16 22:38; Start 12/03/16 at 21:00; Stop 12/03/16 at 21:59; Status DC Ganciclovir Sodium 41 mg/ Sodium Chloride 100.82 ml @ 100.82 mls/hr TuThSa IV ; Start 12/27/16 at 14:00; Stop 12/27/16 at 14:00; Status DC Epoetin Abel (Epogen Inj) 10,000 units UNSCH PRN IV WITH DIALYSIS Last administered on 12/31/16 10:00; Start 12/06/16 at 09:30 Levofloxacin (Levaquin) 250 mg Q48H PO Last administered on 12/08/16 18:16; Start 12/08/16 at 16:00; Stop 12/09/16 at 15:27; Status DC Sodium Chloride 250 ml @ 15 mls/hr ONCE ONCE IV Last administered on 10:21; Start 12/08/16 at 17:00; Stop 12/09/16 at 09:39; Status DC Acetaminophen (Tylenol) 650 mg Q4H PRN PO SEE LABEL COMMENTS; Start 12/08/16 at 17:00; Stop 12/09/16 at 16:59; Status DC Diphenhydramine HCl (Benadryl) 25 mg Q4H PRN PO SEE LABEL COMMENTS; Start 12/08 at 17:00; Stop 12/09/16 at 16:59; Status DC Furosemide (Lasix Inj) 20 mg ONCE ONCE IV Last administered on 12/09/16 14:08 ; Start 12/08/16 at 17:00; Stop 12/08/16 at 17:02; Status DC Rifampin (Rifampin) 300 mg Q12HR PO Last administered on 12/31/16 21:31; Start 12/09/16 at 21:00 Ganciclovir Sodium 81 mg/ Sodium Chloride 101.62 ml @ 101.62 mls/hr TuThSa IV Last administered on 12/24/16 15:58; Start 12/10/16 at 12:45; Stop 12/24/16 at 23:00; Status DC Bupivacaine HCl/ Epinephrine Bitart (Sensorcaine-Epinephrine Pf 0.25% Inj) 10 ml ONCE ONCE INFIL ; Start 12/14/16 at 09:45; Stop 12/14/16 at 10:17; Status DC Sodium Chloride (NS Flush) 2 ml UNSCH PRN IV FLUSH FLUSH AFTER USING IV ACCESS ; Start 12/14/16 at 10:45 Sodium Chloride (NS Flush) 2 ml BID IV FLUSH Last administered on 12/31/16 21: 31; Start 12/14/16 at 21:00 Acetaminophen/ Hydrocodone Bitart ([place] 5-325 Mg) 1 tab Q4H PRN PO PAIN SCALE 1 TO 5; Start 12/14/16 at 10:45 Acetaminophen/ Hydrocodone Bitart ([place] 5-325 Mg) 2 tab Q4H PRN PO PAIN SCALE 6 TO 10; Start 12/14/16 at 10:45 Miscellaneous Information (Post-op Orders (for Pharmacy)) STAT ONCE XX Last administered on 12/14/16 10:45; Start 12/14/16 at 10:45; Stop 12/14/16 at 10:46 ; Status DC Miscellaneous Information ALL NURSING DEPARTME... UNSCH PRN .XX SEE LABEL COMMENTS; Start 12/14/16 at 11:30; Stop 12/15/16 at 11:29; Status DC Sodium Biphosphate/ Sodium Phosphate (Fleets Enema (Adult)) 133 ml ONCE ONCE RECTAL Last administered on 12/20/16 09:22; Start 12/20/16 at 09:15; Stop at 09:16; Status DC Influenza Virus Vaccine (Flu (Quadrivalent) Vaccine Inj) 0.5 ml ONCE ONCE IM Last administered on 12/24/16 12:20; Start 12/24/16 at 10:00; Stop 12/24/16 at 10:01; Status DC Naproxen (Naprosyn) 500 mg ONCE ONCE PO Last administered on 12/25/16 01:12; Start 12/25/16 at 01:15; Stop 12/25/16 at 01:16; Status DC Valganciclovir (Valcyte) 450 mg DAILY PO Last administered on 12/31/16 13:46; Start 12/26/16 at 13:45 Potassium Chloride (KCl) 40 meq ONCE ONCE PO Last administered on 12/30/16 06 :05; Start 12/30/16 at 05:00; Stop 12/30/16 at 05:07; Status DC Prednisone (Deltasone) 40 mg DAILY PO Last administered on 12/31/16 13:47; Start 12/30/16 at 14:15; Stop 01/02/17 at 14:14 Side: Right A/P Problem List: (1) Renal failure ICD Code: N19 - Unspecified kidney failure Status: Acute (2) Sepsis ICD Code: A41.9 - Sepsis, unspecified organism Status: Acute (3) UTI (urinary tract infection) ICD Code: N39.0 - Urinary tract infection, site not specified (4) Chronic kidney disease, stage V ICD Code: N18.5 - Chronic kidney disease, stage 5 (5) HIV (human immunodeficiency virus infection) ICD Code: B20 - Human immunodeficiency virus [HIV] disease (6) Anemia ICD Code: D64.9 - Anemia, unspecified (7) Hypertension ICD Code: I10 - Essential (primary) hypertension (8) Medical non-compliance ICD Code: Z91.19 - Patient's noncompliance with other medical treatment and regimen Assessment and Plan A/P Severe sepsis secondary to UTI, pneumonia-resolved AIDS-noncompliance intermittent fever-temps overall improved. - Status post treatment with Zosyn. Patient is immunocompromised, noncompliant with HAART for the last 2 months. - HSV positive. Continue Biaxin, Valganciclovir, Ethambutol,Rifampin per infectious disease . Blood mycobacterial culture growing acid fast organism. -trial of prednisone. - ID following. Acute renal failure superimposed on chronic kidney disease stage V - Nephrology following, remains non-oliguric. -Recent kidney biopsy FSGS, with 2 out of 7 Glomeruli sclerosis - HD per nephrology. -Patient would like to have a PD catheter placed HIV/AIDS - CD4 count less than 20. Patient admitted to being noncompliant with HAART meds for the last 2 months. He has been counseled. 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 Oral thrush, improved: treated with Diflucan Anemia of chronic disease -s/p PRBC transfusion on 12/31/16 - H/H improved- -on Epogen -Continue to monitor H&H Discharge Planning still with on and off fever. ID following. Problem Qualifiers (1) Renal failure: (2) Sepsis: Neelima Burgess MD Jan 01, 2017 08:34
[2017-01-01] MEDS: DOCUSATE SODIUM 50 MG/SENNA 8.6 MG TAB PO SCH ×2 (09:00→20:57)
[2017-01-01 09:20] LABS: BANDS 16 % (0-6); NEUTROPHIL # MANUAL DIFF 1.4 TH/MM3 (1.8-7.7); OVALOCYTES 1+ (NORMAL); PLATELET ESTIMATE SMEAR NORMAL (NORMAL); PLATELET MORPHOLOGY NORMAL (NORMAL); POLYS (SEG NEUTROPHILS) 70 % (16-70); SCAN/DIFF FINAL DIFF MANUAL; WBC DIFF SAMPLE 100
[2017-01-01] MEDS: LACTOBACILLUS ACIDOPHILUS TAB PO SCH ×2 (09:58→20:57)
[2017-01-01] MEDS: CLARITHROMYCIN 500 MG TAB PO SCH ×2 (09:58→20:57)
[2017-01-01] MEDS: RIFAMPIN 150 MG CAP PO SCH ×2 (09:59→20:57)
[2017-01-01] MEDS: predniSONE 20 MG TAB PO SCH (09:59)
[2017-01-01] MEDS: ETHAMBUTOL HCL 400 MG TAB PO SCH (09:59)
[2017-01-01] MEDS: SODIUM CHLORIDE 0.9% FLUSH 10 ML FLUSH IV FLUSH SCH ×2 (10:01→21:06)
--- NOTE | 2017-01-01 11:14 | HHI.NPPN ---
Subjective History of Present Illness 50-year-old male with past medical history of HIV disease for more than 20 years and history of renal stone who came to the hospital with complaint of back pain. The patient has back pain going on for the last 2 months off and on and he came to the emergency department yesterday with worsening pain. Additional Remarks Patient is alert, no abd. pain, eating better, fever pattern slightly better, last fever was 4 pm yesterday. Review of Systems General Constitutional: Fatigue Cardiovascular Cardiac: MIRZA Objective Data Data Vital Signs Date Time Temp Pulse Resp B/P (MAP) Pulse Ox O2 Delivery O2 Flow Rate FiO2 01/01/17 08:36 98.5 84 16 137/83 (101) 100 01/01/17 08:00 73 01/01/17 07:15 Room Air 01/01/17 04:00 97.5 71 16 155/102 (119) 100 01/01/17 04:00 Room Air 01/01/17 00:00 Room Air 01/01/17 00:00 98.0 72 18 150/98 (115) 100 12/31/16 20:00 Room Air 12/31/16 20:00 97.9 91 18 117/81 (93) 99 12/31/16 20:00 92 12/31/16 16:00 98.1 102 18 130/74 (92) 97 12/31/16 14:50 98.3 80 20 130/90 12/31/16 14:08 97.3 81 20 127/80 -: 01/01/17 0613 12/30/16 0252 Physical Exam General Appearance: No Acute Distress, Comfortable Eyes Eye Exam: Pupils Equal Throat Throat Exam: Oral Mucosa [place] & Moist Pulmonary Resp Exam: Breath Sounds Equal, No Distress, Rhonchi, Decreased Bases Cardiology CV Exam: Regular, Normal Sinus Rhythm Gastrointestinal/Abdomen GI Exam: Soft, Non-Tender, Bowel Sounds Present Extremeties Extremities Exam: No Edema Neurologic Neuro Exam: Alert, Awake, Oriented Psychiatric Psych Exam: Appropriate Responses Assessment/Plan Assessment Summary: MIKE/Acute Renal Failure Problem List: (1) Renal failure ICD Codes: N19 - Unspecified kidney failure Status: Acute (2) Sepsis ICD Codes: A41.9 - Sepsis, unspecified organism Status: Acute (3) Open wound of scrotum ICD Codes: S31.30XA - Unspecified open wound of scrotum and testes, initial encounter Status: Acute Plan c/o blurry vision left eye Remain non oliguric. SPEP was negative. Complements normal, other serology also negative. BP is better, on Metoprolol to 50 mg BID. If renal function will not improve, will consider Renal Biopsy once infection is controlled. Fever pattern is better, ID is following. Now on Bactrim, Acyclovir, Clarithromycin and Ethambutol. No improvement in renal function. Possibly has End stage renal disease. Got PermCath. 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 No need to repeat the renal Biopsy as clinically he is showing no improvement, and the with advance HIV , the treatment options are limited, cannot be given immunosuppressive drugs. I discussed this in detail with patient. Now he change his mind and want to go for PD from ID stand point. He understand increase risk of infection due to advance HIV. Has PD catheter done. Now on Valganciclovir, ID following. Gallium scan is negative. HD to continue TTS. On Epogen , follow Hgb. Transfuse as needed. WBC decreased, possibly related to Valcyte. ID is following. Problem Qualifiers (1) Renal failure: (2) Sepsis: Kwadwo Shah MD Jan 01, 2017 11:14
[2017-01-02] VITALS (7 sets, daily range): BP systolic 111–156; BP diastolic 66–90; PULSE 72–123; RESP 16–18; TEMP 98–102.3; O2SAT 96–100
[2017-01-02 08:51] LABS: HEMATOCRIT 28.6 % (39.0-51.0); MEAN CORPUSCULAR HEMOGLOBIN 27.9 PG (27.0-34.0); MEAN CORPUSCULAR HGB CONC 32.5 % (32.0-36.0); PLATELET COUNT 201 TH/MM3 (150-450); RED BLOOD COUNT 3.33 MIL/MM3 (4.50-5.90); WHITE BLOOD COUNT 1.7 TH/MM3 (4.0-11.0)
[2017-01-02 08:55] LABS: HEMO FLAGS AUTO DIFF
--- NOTE | 2017-01-02 08:57 | HHI.PR ---
Subjective Remarks resting comfortably with no distress. still febrile; Tmax 102.3. otherwise no other complaints. Objective Vitals Vital Signs Date Time Temp Pulse Resp B/P (MAP) Pulse Ox O2 Delivery O2 Flow Rate FiO2 01/02/17 08:02 102.3 123 18 124/76 (92) 96 01/02/17 04:00 98.7 76 16 156/86 (109) 100 01/02/17 00:00 98.2 72 16 145/72 (96) 100 01/02/17 00:00 Room Air 01/01/17 20:00 64 01/01/17 20:00 Room Air 01/01/17 20:00 97.3 64 16 141/96 (111) 100 01/01/17 16:00 98.5 84 19 133/84 (100) 100 01/01/17 14:17 89 01/01/17 12:00 98.5 102 19 134/87 (103) 99 I/O 01/01/17 01/01/17 01/01/17 01/02/17 01/02/17 01/02/17 07:00 15:00 23:00 07:00 15:00 23:00 Intake Total 475 ml 520 ml 640 ml Output Total 150 ml 175 ml 150 ml Balance 325 ml 345 ml 490 ml Intake Oral 475 ml 520 ml 640 ml Output Urine Total 150 ml 175 ml 150 ml # Bowel Movements 0 1 2 Result Diagram: 01/01/17 0613 12/30/16 0252 Imaging Last Impressions Gallium Scan Nuclear Medicine 12/19/16 0000 Signed Impressions: Service Date/Time: Monday, December 19, 2016 13:19 - CONCLUSION: Negative for occult inflammatory process. Enzo Isbell MD FACR Upper Extremity Ultrasound 12/07/16 0000 Signed Impressions: Service Date/Time: Wednesday, December 07, 2016 10:11 - CONCLUSION: Venous mapping as above. Enzo Isbell MD FACR Renal Biopsy CT 12/01/16 0600 Signed Impressions: Service Date/Time: November 14:17 - CONCLUSION: Uncomplicated CT guided biopsy. Alexis Adhikari MD Central Venous Line 11/29/16 0000 Signed Impressions: Service Date/Time: Tuesday, November 29, 2016 00:00 - CONCLUSION: Uncomplicated catheter removal. Solitario Diaz MD Catheter Placement X-Ray 11/29/16 0000 Signed Impressions: Service Date/Time: Tuesday, November 29, 2016 13:58 - CONCLUSION: Uncomplicated PermaCath placement as above. Solitario Diaz MD Tumor Localization 11/14/16 0000 Signed Impressions: Service Date/Time: Monday, November 14, 2016 11:38 - CONCLUSION: Negative scan Solitario Diaz MD Chest X-Ray 11/13/16 0000 Signed Impressions: Service Date/Time: Sunday, November 13, 2016 16:02 - CONCLUSION: No acute cardiopulmonary disease. Quincy Medellin MD Renal Ultrasound 11/05/16 0000 Signed Impressions: Service Date/Time: Saturday, November 05, 2016 19:17 - CONCLUSION: Diffusely echogenic kidneys indicating medical renal disease. Dorian Murry MD Abdomen/Pelvis CT 11/05/16 0000 Signed Impressions: Service Date/Time: Saturday, November 05, 2016 17:19 - CONCLUSION: 1. 4 mm calculus in the right renal pelvis/ureteropelvic junction with mild adjacent perinephric/periureteral stranding. No evidence of hydronephrosis. 2. 1 cm round hypodensity in the anterior right mid kidney statistically most likely to represent a cyst. 3. 3.7 cm hypodensity in the right lobe of the liver air the dome of the diaphragm. This finding is nonspecific on noncontrast CT. The most likely etiologies include hemangioma and cyst. It could be further evaluated with ultrasound nonemergent followup MRI of the abdomen. 4. Mild dilated proximal right common iliac artery. Dorian Murry MD Objective Remarks GENERAL: This is a well-nourished, well-developed patient, in no apparent distress. CARDIOVASCULAR: Regular rate and regular rhythm without murmurs, gallops, or rubs. RESPIRATORY: Clear to auscultation. Breath sounds equal bilaterally. No wheezes , rales, or rhonchi. GASTROINTESTINAL: Abdomen soft, non-tender, nondistended. Normal, active bowel sounds MUSCULOSKELETAL: Extremities without clubbing, cyanosis, or edema. NEURO: Alert & Oriented x4 to person, place, time, situation. Moves all ext x4 Procedures 11/14/16 hemodialysis catheter placement, right internal jugular 12/14 PD cath placement Medications and IVs Current Medications Sodium Chloride 1,000 ml @ 1,000 mls/hr Q1H ONCE IV Last administered on 14:25; Start 11/05/16 at 13:54; Stop 11/05/16 at 14:53; Status DC Sodium Chloride 1,000 ml @ 1,000 mls/hr Q1H ONCE IV Last administered on 15:12; Start 11/05/16 at 13:54; Stop 11/05/16 at 14:53; Status DC Sodium Chloride 100 ml @ 1,000 mls/hr Q6M ONCE IV Last administered on 15:32; Start 11/05/16 at 13:54; Stop 11/05/16 at 13:59; Status DC Vancomycin HCl 1050 mg/Sodium Chloride 260.5 ml @ 250 mls/hr ONCE ONCE IV Last administered on 11/05/16 15:06; Start 11/05/16 at 14:00; Stop 11/05/16 at 15:02; Status DC Piperacillin Sod/ Tazobactam Sod 50 ml @ 100 mls/hr ONCE ONCE IV Last administered on 11/05/16 16:38; Start 11/05/16 at 14:00; Stop 11/05/16 at 14:29 ; Status DC Acetaminophen (Tylenol) 1,000 mg ONCE ONCE PO Last administered on 11/05/16 16:38; Start 11/05/16 at 15:45; Stop 11/05/16 at 15:46; Status DC Abacavir Sulfate (Ziagen) 300 mg BID PO ; Start 11/05/16 at 21:00; Stop at 21:00; Status DC Lamivudine (Epivir) 150 mg BID PO ; Start 11/05/16 at 21:00; Stop 11/05/16 at 21 :00; Status DC Lopinavir/ Ritonavir (Kaletra 200-50 Mg) 1 tab BID PO ; Start 11/05/16 at 21:00 ; Stop 11/05/16 at 21:00; Status DC Pharmacy Profile Note 0 ml @ 0 mls/hr UNSCH OTHER ; Start 11/05/16 at 16:15; Stop 11/08/16 at 09:10; Status DC Piperacillin Sod/ Tazobactam Sod 50 ml @ 100 mls/hr Q8H IV Last administered on 11/09/16 16:35; Start 11/06/16 at 00:00; Stop 11/09/16 at 17:24; Status DC Sodium Chloride 1,000 ml @ 83 mls/hr Q12H3M IV Last administered on 11/09/16 05:17; Start 11/05/16 at 17:00; Stop 11/09/16 at 16:19; Status DC Sodium Chloride (NS Flush) 2 ml UNSCH PRN IV FLUSH FLUSH AFTER USING IV ACCESS ; Start 11/05/16 at 16:15 Sodium Chloride (NS Flush) 2 ml BID IV FLUSH Last administered on 12/14/16 07: 26; Start 11/05/16 at 21:00; Stop 12/14/16 at 10:39; Status DC Acetaminophen (Tylenol) 650 mg Q4H PRN PO TEMP > 100.4 Last administered on 15:36; Start 11/05/16 at 16:15 Ondansetron HCl (Zofran Inj) 4 mg Q6H PRN IVP NAUSEA OR VOMITING Last administered on 12/22/16 21:14; Start 11/05/16 at 16:15 Heparin Sodium (Porcine) (Heparin Inj) 5,000 units Q12H SQ Last administered on 12/08/16 18:16; Start 11/05/16 at 17:00; Status Future Hold Naloxone HCl (Narcan Inj) 0.4 mg UNSCH PRN IV SEE LABEL COMMENTS; Start at 16:15 Senna/Docusate Sodium (Dee-Colace) 1 tab BID PO Last administered on 08:42; Start 11/05/16 at 21:00 Magnesium Hydroxide (Milk Of Magnesia Liq) 30 ml Q12H PRN PO MILD - MODERATE CONSTIPATION; Start 11/05/16 at 16:15 Sennosides (Senokot) 17.2 mg Q12H PRN PO MODERATE - SEVERE CONSTIPATION; Start 11/05/16 at 16:15 Bisacodyl (Dulcolax Supp) 10 mg DAILY PRN RECTAL SEVERE CONSITIPATION; Start at 16:15 Lactulose (Lactulose Liq) 30 ml DAILY PRN PO SEVERE CONSITIPATION; Start at 16:15 Acetaminophen/ Hydrocodone Bitart (Taylor 7.5-325 Mg) 1 tab Q4H PRN PO PAIN SCALE 4 TO 10; Start 11/05/16 at 16:15; Stop 12/14/16 at 10:38; Status DC Nystatin (Mycostatin Liq) 5 ml QID SWISH-SWAL Last administered on 11/26/16 21 :39; Start 11/05/16 at 18:00; Stop 11/27/16 at 13:26; Status DC Vancomycin HCl 1000 mg/Sodium Chloride 250 ml @ 250 mls/hr ONCE ONCE IV Last administered on 11/07/16 11:27; Start 11/07/16 at 12:00; Stop 11/07/16 at 12:59 ; Status DC Valacyclovir HCl (Valtrex) 500 mg Q8HR PO Last administered on 11/15/16 20:39 ; Start 11/08/16 at 09:15; Stop 11/15/16 at 23:00; Status DC Sodium Bicarbonate (Sodium Bicarbonate) 650 mg Q12HR PO Last administered on 07:49; Start 11/09/16 at 21:00; Stop 11/16/16 at 16:54; Status DC Ceftriaxone Sodium 2000 mg/ Sodium Chloride 100 ml @ 200 mls/hr Q24H IV Last administered on 11/21/16 15:59; Start 11/09/16 at 18:00; Stop 11/21/16 at 16:39 ; Status DC Metoprolol Tartrate (Lopressor) 12.5 mg Q12HR PO Last administered on 10:02; Start 11/10/16 at 18:00; Stop 11/13/16 at 14:05; Status DC Levofloxacin (Levaquin) 250 mg Q48H PO Last administered on 11/15/16 17:57; Start 11/11/16 at 16:00; Stop 11/16/16 at 10:23; Status DC Azithromycin (Zithromax) 250 mg DAILY PO Last administered on 11/21/16 08:41; Start 11/11/16 at 15:15; Stop 11/21/16 at 16:45; Status DC Sodium Bicarbonate 75 meq/Sodium Chloride 1,075 ml @ 75 mls/hr [id number] IV Last administered on 11/16/16 00:00; Start 11/12/16 at 21:00; Stop 11/16/16 at 06:05; Status DC Sodium Chloride 250 ml @ 15 mls/hr ONCE ONCE IV ; Start 11/13/16 at 06:00; Stop 11/13/16 at 22:39; Status DC Metoprolol Tartrate (Lopressor) 25 mg Q12HR PO Last administered on 11/16/16 07:49; Start 11/13/16 at 21:00; Stop 11/16/16 at 16:54; Status DC Metoprolol Tartrate (Lopressor) 12.5 mg ONCE ONCE PO Last administered on 11/13 16:16; Start 11/13/16 at 14:30; Stop 11/13/16 at 14:31; Status DC Miscellaneous (Pill Splitter) 1 ea UNSCH PRN OTHER SEE LABEL COMMENTS; Start at 14:30 Sodium Chloride 1,000 ml @ 0 mls/hr Q0M PRN IV For Prime & Rinse Back Last administered on 12/22/16 09:53; Start 11/13/16 at 17:02 Heparin Sodium (Porcine) (Heparin Inj) 8,000 units UNSCH PRN IVF WITH DIALYSIS Last administered on 12/31/16 09:59; Start 11/13/16 at 17:15 Sodium Chloride 1,000 ml @ 200 mls/hr Q5H PRN IV WITH DIALYSIS; Start 11/13/16 at 17:02 Sodium Chloride 1,000 ml @ 0 mls/hr Q0M PRN IV WITH DIALYSIS; Start 11/13/16 at 17:02 Mannitol (Mannitol Inj) 12.5 gm UNSCH PRN IV WITH DIALYSIS; Start 11/13/16 at 17:15 Albumin Human (Albumin 25% Inj) 25 gm UNSCH PRN IV WITH DIALYSIS Last administered on 12/31/16 09:58; Start 11/13/16 at 17:15 Sodium Chloride (NS Flush) 5 ml UNSCH PRN IV FLUSH WITH DIALYSIS Last administered on 12/17/16 10:57; Start 11/13/16 at 17:15 Heparin Sodium (Porcine) (Heparin Inj) UNSCH PRN .XX WITH DIALYSIS Last administered on 12/29/16 11:05; Start 11/13/16 at 17:15 Gentamicin Sulfate (Gentamicin (Dialysis) Inj) 20 mg UNSCH PRN IV WITH DIALYSIS Last administered on 12/31/16 09:59; Start 11/13/16 at 17:15 Ondansetron HCl (Zofran Inj) 4 mg UNSCH PRN IV WITH DIALYSIS Last administered on 12/09/16 20:25; Start 11/13/16 at 17:15 Acetaminophen (Tylenol) 650 mg UNSCH PRN PO for headach, pain, temp > 101F Last administered on 11/21/16 12:27; Start 11/13/16 at 17:15 Diphenhydramine HCl (Benadryl) 25 mg UNSCH PRN PO for hives/itching/anaphylaxis ; Start 11/13/16 at 17:15 Nitroglycerin (Nitrostat Sl) 0.4 mg UNSCH PRN SL CHEST PAIN; Start 11/13/16 at 17:15 Clonidine (Catapres) 0.1 mg UNSCH PRN PO for BP > 170/100 X 2 readings Last administered on 12/08/16 13:25; Start 11/13/16 at 17:15 Gelatin (Gelfoam 12 Mm/7 Mm Top) 1 foam UNSCH PRN TOP SEE LABEL COMMENTS; Start 11/13/16 at 17:15 Heparin Sodium (Porcine) (*HEPARIN INJ Periprocedural ONLY) 10,000 units STK- MED ONCE .ROUTE Last administered on 11/14/16 11:29; Start 11/14/16 at 11:26; Stop 11/14/16 at 11:27; Status DC Sodium Chloride (NS Flush) UNSCH PRN IVF SEE PROTOCOL; Start 11/14/16 at 11:45 ; Stop 11/29/16 at 19:51; Status DC Heparin Sodium (Porcine) (Heparin Inj) UNSCH PRN IV FLUSH SEE PROTOCOL Last administered on 11/29/16 10:25; Start 11/14/16 at 11:45; Stop 11/29/16 at 19:51; Status DC Potassium Bicarb/ Potassium Chloride (K-Lyte Cl Eff) 50 meq ONCE ONCE PO Last administered on 11/16/16 06:37; Start 11/16/16 at 06:00; Stop 11/16/16 at 06:02; Status DC Potassium Chloride 100 ml @ 50 mls/hr Q2H IV Last administered on 11/16/16 07 :49; Start 11/16/16 at 06:00; Stop 11/16/16 at 10:04; Status DC Levofloxacin (Levaquin) 250 mg Q24H PO Last administered on 12/07/16 16:24; Start 11/16/16 at 16:00; Stop 12/08/16 at 12:55; Status DC Metoprolol Tartrate (Lopressor) 50 mg Q12HR PO Last administered on 12/02/16 08 :53; Start 11/16/16 at 21:00; Status Future Hold Valacyclovir HCl (Valtrex) 500 mg DAILY PO Last administered on 11/22/16 08:36 ; Start 11/17/16 at 10:45; Stop 11/22/16 at 08:59; Status DC Amlodipine Besylate (Norvasc) 5 mg DAILY PO Last administered on 12/02/16 08:53 ; Start 11/19/16 at 12:00; Status Future Hold Ethambutol HCl (Myambutol) 800 mg DAILY PO Last administered on 12/03/16 14:22 ; Start 11/21/16 at 18:00; Stop 12/03/16 at 16:35; Status DC Clarithromycin (Biaxin) 500 mg Q12HR PO Last administered on 01/01/17 20:57; Start 11/21/16 at 21:00 Acyclovir (Zovirax) 400 mg Q12HR PO Last administered on 12/03/16 14:22; Start 11/23/16 at 12:30; Stop 12/03/16 at 18:16; Status DC Trimethoprim/ Sulfamethoxazole (Bactrim Ds 800-160 Mg) 1 tab MoWeFr@09 PO Last administered on 12/21/16 09:33; Start 11/25/16 at 09:00; Stop 12/22/16 at 14:14 ; Status DC Fluconazole (Diflucan) 200 mg ONCE ONCE PO Last administered on 11/26/16 12:46 ; Start 11/26/16 at 07:45; Stop 11/26/16 at 07:46; Status DC Fluconazole (Diflucan) 100 mg DAILY PO Last administered on 12/09/16 10:19; Start 11/27/16 at 09:00; Stop 12/09/16 at 15:27; Status DC Fentanyl Citrate (fentaNYL INJ) 100 mcg STK-MED ONCE .ROUTE Last administered on 11/29/16 13:50; Start 11/29/16 at 13:50; Stop 11/29/16 at 13:51; Status DC Midazolam HCl (Versed Inj) 2 mg STK-MED ONCE .ROUTE Last administered on 13:50; Start 11/29/16 at 13:50; Stop 11/29/16 at 13:51; Status DC Midazolam HCl (Versed Inj) 2 mg STK-MED ONCE .ROUTE ; Start 11/29/16 at 13:50; Stop 11/29/16 at 13:51; Status DC Fentanyl Citrate (fentaNYL INJ) 100 mcg STK-MED ONCE .ROUTE ; Start 11/29/16 at 13:51; Stop 11/29/16 at 13:52; Status DC Heparin Sodium (Porcine) (*HEPARIN INJ Periprocedural ONLY) 10,000 units STK- MED ONCE .ROUTE Last administered on 11/29/16 14:08; Start 11/29/16 at 14:08; Stop 11/29/16 at 14:09; Status DC Lidocaine/ Epinephrine (Xylocaine-Epi 2%-1:100,000 Inj) 20 ml STK-MED ONCE .ROUTE ; Start 11/29/16 at 14:09; Stop 11/29/16 at 14:10; Status DC Lidocaine/ Epinephrine (Xylocaine-Epi 2%-1:100,000 Inj) 20 ml STK-MED ONCE .ROUTE Last administered on 11/29/16 14:10; Start 11/29/16 at 14:10; Stop at 14:11; Status DC Sodium Chloride (NS Flush) UNSCH PRN IVF SEE PROTOCOL; Start 11/29/16 at 18:15 Heparin Sodium (Porcine) (Heparin Inj) UNSCH PRN IV FLUSH SEE PROTOCOL Last administered on 12/06/16 10:15; Start 11/29/16 at 18:15 Fentanyl Citrate (fentaNYL INJ) 100 mcg STK-MED ONCE .ROUTE Last administered on 12/01/16 13:16; Start 12/01/16 at 13:16; Stop 12/01/16 at 13:17; Status DC Midazolam HCl (Versed Inj) 2 mg STK-MED ONCE .ROUTE Last administered on 13:16; Start 12/01/16 at 13:16; Stop 12/01/16 at 13:17; Status DC Lidocaine HCl (Xylocaine 1% Inj) 20 ml STK-MED ONCE .ROUTE Last administered on 12/01/16 13:45; Start 12/01/16 at 13:45; Stop 12/01/16 at 13:46; Status DC Sodium Bicarbonate 50 ml @ As Directed STK-MED ONCE .ROUTE Last administered on 12/01/16 13:45; Start 12/01/16 at 13:45; Stop 12/01/16 at 13:46; Status DC Lactobacillus Acidophilus (Lactinex) 1 tab Q12HR PO Last administered on 20:57; Start 12/02/16 at 10:00 Pharmacy Profile Note 0 ml @ 0 mls/hr UNSCH OTHER ; Start 12/03/16 at 17:00; Status Cancel Ethambutol HCl (Myambutol) 800 mg DAILY PO Last administered on 01/01/17 09:59 ; Start 12/04/16 at 09:00 Ganciclovir Sodium 81 mg/ Sodium Chloride 101.62 ml @ 101.62 mls/hr WITH DIALYSIS IV ; Start 12/04/16 at 09:00; Stop 12/10/16 at 12:45; Status DC Ganciclovir Sodium 81 mg/ Sodium Chloride 101.62 ml @ 101.62 mls/hr ONCE ONCE IV Last administered on 12/03/16 22:38; Start 12/03/16 at 21:00; Stop 12/03/16 at 21:59; Status DC Ganciclovir Sodium 41 mg/ Sodium Chloride 100.82 ml @ 100.82 mls/hr TuThSa IV ; Start 12/27/16 at 14:00; Stop 12/27/16 at 14:00; Status DC Epoetin Abel (Epogen Inj) 10,000 units UNSCH PRN IV WITH DIALYSIS Last administered on 12/31/16 10:00; Start 12/06/16 at 09:30 Levofloxacin (Levaquin) 250 mg Q48H PO Last administered on 12/08/16 18:16; Start 12/08/16 at 16:00; Stop 12/09/16 at 15:27; Status DC Sodium Chloride 250 ml @ 15 mls/hr ONCE ONCE IV Last administered on 10:21; Start 12/08/16 at 17:00; Stop 12/09/16 at 09:39; Status DC Acetaminophen (Tylenol) 650 mg Q4H PRN PO SEE LABEL COMMENTS; Start 12/08/16 at 17:00; Stop 12/09/16 at 16:59; Status DC Diphenhydramine HCl (Benadryl) 25 mg Q4H PRN PO SEE LABEL COMMENTS; Start 12/08 at 17:00; Stop 12/09/16 at 16:59; Status DC Furosemide (Lasix Inj) 20 mg ONCE ONCE IV Last administered on 12/09/16 14:08 ; Start 12/08/16 at 17:00; Stop 12/08/16 at 17:02; Status DC Rifampin (Rifampin) 300 mg Q12HR PO Last administered on 01/01/17 20:57; Start 12/09/16 at 21:00 Ganciclovir Sodium 81 mg/ Sodium Chloride 101.62 ml @ 101.62 mls/hr TuThSa IV Last administered on 12/24/16 15:58; Start 12/10/16 at 12:45; Stop 12/24/16 at 23:00; Status DC Bupivacaine HCl/ Epinephrine Bitart (Sensorcaine-Epinephrine Pf 0.25% Inj) 10 ml ONCE ONCE INFIL ; Start 12/14/16 at 09:45; Stop 12/14/16 at 10:17; Status DC Sodium Chloride (NS Flush) 2 ml UNSCH PRN IV FLUSH FLUSH AFTER USING IV ACCESS ; Start 12/14/16 at 10:45 Sodium Chloride (NS Flush) 2 ml BID IV FLUSH Last administered on 01/01/17 21: 06; Start 12/14/16 at 21:00 Acetaminophen/ Hydrocodone Bitart (Taylor 5-325 Mg) 1 tab Q4H PRN PO PAIN SCALE 1 TO 5; Start 12/14/16 at 10:45 Acetaminophen/ Hydrocodone Bitart (Taylor 5-325 Mg) 2 tab Q4H PRN PO PAIN SCALE 6 TO 10; Start 12/14/16 at 10:45 Miscellaneous Information (Post-op Orders (for Pharmacy)) STAT ONCE XX Last administered on 12/14/16 10:45; Start 12/14/16 at 10:45; Stop 12/14/16 at 10:46 ; Status DC Miscellaneous Information ALL NURSING DEPARTME... UNSCH PRN .XX SEE LABEL COMMENTS; Start 12/14/16 at 11:30; Stop 12/15/16 at 11:29; Status DC Sodium Biphosphate/ Sodium Phosphate (Fleets Enema (Adult)) 133 ml ONCE ONCE RECTAL Last administered on 12/20/16 09:22; Start 12/20/16 at 09:15; Stop at 09:16; Status DC Influenza Virus Vaccine (Flu (Quadrivalent) Vaccine Inj) 0.5 ml ONCE ONCE IM Last administered on 12/24/16 12:20; Start 12/24/16 at 10:00; Stop 12/24/16 at 10:01; Status DC Naproxen (Naprosyn) 500 mg ONCE ONCE PO Last administered on 12/25/16 01:12; Start 12/25/16 at 01:15; Stop 12/25/16 at 01:16; Status DC Valganciclovir (Valcyte) 450 mg DAILY PO Last administered on 01/01/17 09:58; Start 12/26/16 at 13:45 Potassium Chloride (KCl) 40 meq ONCE ONCE PO Last administered on 12/30/16 06 :05; Start 12/30/16 at 05:00; Stop 12/30/16 at 05:07; Status DC Prednisone (Deltasone) 40 mg DAILY PO Last administered on 01/01/17 09:59; Start 12/30/16 at 14:15; Stop 01/02/17 at 14:14 Side: Right A/P Problem List: (1) Renal failure ICD Code: N19 - Unspecified kidney failure Status: Acute (2) Sepsis ICD Code: A41.9 - Sepsis, unspecified organism Status: Acute (3) UTI (urinary tract infection) ICD Code: N39.0 - Urinary tract infection, site not specified (4) Chronic kidney disease, stage V ICD Code: N18.5 - Chronic kidney disease, stage 5 (5) HIV (human immunodeficiency virus infection) ICD Code: B20 - Human immunodeficiency virus [HIV] disease (6) Anemia ICD Code: D64.9 - Anemia, unspecified (7) Hypertension ICD Code: I10 - Essential (primary) hypertension (8) Medical non-compliance ICD Code: Z91.19 - Patient's noncompliance with other medical treatment and regimen Assessment and Plan A/P Severe sepsis secondary to UTI, pneumonia-resolved AIDS-noncompliance intermittent fever-temps overall improved. - Status post treatment with Zosyn. Patient is immunocompromised, noncompliant with HAART for the last 2 months. - HSV positive. Continue Biaxin, Valganciclovir, Ethambutol,Rifampin per infectious disease . Blood mycobacterial culture growing acid fast organism. -trial of prednisone. - ID following. Acute renal failure superimposed on chronic kidney disease stage V - Nephrology following, remains non-oliguric. -Recent kidney biopsy FSGS, with 2 out of 7 Glomeruli sclerosis - HD per nephrology. -Patient would like to have a PD catheter placed HIV/AIDS - CD4 count less than 20. Patient admitted to being noncompliant with HAART meds for the last 2 months. He has been counseled. 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 Oral thrush, improved: treated with Diflucan Anemia of chronic disease -s/p PRBC transfusion on 12/31/16 - H/H improved- -on Epogen -Continue to monitor H&H Discharge Planning still with on and off fever. ID following. Problem Qualifiers (1) Renal failure: (2) Sepsis: Neelima Burgess MD Jan 02, 2017 08:57
[2017-01-02] MEDS: DOCUSATE SODIUM 50 MG/SENNA 8.6 MG TAB PO SCH ×2 (09:00→20:10)
[2017-01-02] MEDS: RIFAMPIN 150 MG CAP PO SCH ×2 (09:38→20:10)
[2017-01-02] MEDS: SODIUM CHLORIDE 0.9% FLUSH 10 ML FLUSH IV FLUSH SCH ×2 (09:39→20:10)
[2017-01-02] MEDS: LACTOBACILLUS ACIDOPHILUS TAB PO SCH ×2 (09:39→20:10)
[2017-01-02] MEDS: ETHAMBUTOL HCL 400 MG TAB PO SCH (09:39)
[2017-01-02] MEDS: CLARITHROMYCIN 500 MG TAB PO SCH ×2 (09:39→20:10)
[2017-01-02] MEDS: predniSONE 20 MG TAB PO SCH (09:39)
[2017-01-02 09:44] LABS: BANDS 18 % (0-6); EOSINOPHILS 1 % (0-4); NEUTROPHIL # MANUAL DIFF 1.3 TH/MM3 (1.8-7.7); POLYS (SEG NEUTROPHILS) 58 % (16-70); WBC DIFF SAMPLE 100
[2017-01-02 09:45] LABS: PLATELET ESTIMATE SMEAR NORMAL (NORMAL); PLATELET MORPHOLOGY NORMAL (NORMAL); SCAN/DIFF FINAL DIFF MANUAL
--- NOTE | 2017-01-02 10:45 | HHI.NPPN ---
Subjective History of Present Illness 50-year-old male with past medical history of HIV disease for more than 20 years and history of renal stone who came to the hospital with complaint of back pain. The patient has back pain going on for the last 2 months off and on and he came to the emergency department yesterday with worsening pain. Additional Remarks Patient is alert, no abd. pain, eating better, spike fever now in AM. Review of Systems General Constitutional: Fatigue Cardiovascular Cardiac: MIRZA Objective Data Data Vital Signs Date Time Temp Pulse Resp B/P (MAP) Pulse Ox O2 Delivery O2 Flow Rate FiO2 01/02/17 08:10 Room Air 01/02/17 08:10 110 01/02/17 08:02 102.3 123 18 124/76 (92) 96 01/02/17 04:00 98.7 76 16 156/86 (109) 100 01/02/17 00:00 98.2 72 16 145/72 (96) 100 01/02/17 00:00 Room Air 01/01/17 20:00 64 01/01/17 20:00 Room Air 01/01/17 20:00 97.3 64 16 141/96 (111) 100 01/01/17 16:00 98.5 84 19 133/84 (100) 100 01/01/17 14:17 89 01/01/17 12:00 98.5 102 19 134/87 (103) 99 -: 01/02/17 0644 12/30/16 0252 Physical Exam General Appearance: No Acute Distress, Comfortable Eyes Eye Exam: Pupils Equal Throat Throat Exam: Oral Mucosa [place] & Moist Pulmonary Resp Exam: Breath Sounds Equal, No Distress, Rhonchi, Decreased Bases Cardiology CV Exam: Regular, Normal Sinus Rhythm Gastrointestinal/Abdomen GI Exam: Soft, Non-Tender, Bowel Sounds Present Extremeties Extremities Exam: No Edema Neurologic Neuro Exam: Alert, Awake, Oriented Psychiatric Psych Exam: Appropriate Responses Assessment/Plan Assessment Summary: MIKE/Acute Renal Failure Problem List: (1) Renal failure ICD Codes: N19 - Unspecified kidney failure Status: Acute (2) Sepsis ICD Codes: A41.9 - Sepsis, unspecified organism Status: Acute (3) Open wound of scrotum ICD Codes: S31.30XA - Unspecified open wound of scrotum and testes, initial encounter Status: Acute Plan c/o blurry vision left eye Remain non oliguric. SPEP was negative. Complements normal, other serology also negative. BP is better, on Metoprolol to 50 mg BID. If renal function will not improve, will consider Renal Biopsy once infection is controlled. Fever pattern is better, ID is following. Now on Bactrim, Acyclovir, Clarithromycin and Ethambutol. No improvement in renal function. Possibly has End stage renal disease. Got PermCath. 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 No need to repeat the renal Biopsy as clinically he is showing no improvement, and the with advance HIV , the treatment options are limited, cannot be given immunosuppressive drugs. I discussed this in detail with patient. Now he change his mind and want to go for PD from ID stand point. He understand increase risk of infection due to advance HIV. Has PD catheter done. Now on Valganciclovir, ID following. Gallium scan is negative. HD to continue TTS. On Epogen , follow Hgb. Transfuse as needed. WBC decreased, possibly related to Valcyte. ID is following. HD will be in AM. Problem Qualifiers (1) Renal failure: (2) Sepsis: Kwadwo Shah MD Jan 02, 2017 10:45
--- NOTE | 2017-01-02 12:48 | HHI.IDPN ---
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, on HD; S/P PD cath Notes reviewed Temps normal since steroids given, got last dose yesterday, and now had temp spike this morning No new complaints Nothing new on C/S For HD tomorrow Gallium scan is negative for occult infection All his BC are negative No new infection found AFB in [place] with MAC - sent for susceptibility testing WBC decreasing, ?due to valcyte Antibiotics Rifampin Biaxin Ethambutol Valcyte Lines permacath Past Medical History HIV, for 20+years, noncompliant with medications for the past 2 months Kidney stones Allergies: Coded Allergies: No Known Allergies (Unverified , 11/05/16) Objective . Vital Signs Date Time Temp Pulse Resp B/P (MAP) Pulse Ox O2 Delivery O2 Flow Rate FiO2 01/02/17 12:05 100.2 95 18 148/88 (108) 100 01/02/17 08:10 Room Air 01/02/17 08:10 110 01/02/17 08:02 102.3 123 18 124/76 (92) 96 01/02/17 04:00 98.7 76 16 156/86 (109) 100 01/02/17 00:00 98.2 72 16 145/72 (96) 100 01/02/17 00:00 Room Air 01/01/17 20:00 64 01/01/17 20:00 Room Air 01/01/17 20:00 97.3 64 16 141/96 (111) 100 01/01/17 16:00 98.5 84 19 133/84 (100) 100 01/01/17 14:17 89 . Laboratory Tests Test 01/01/17 06:13 01/02/17 06:44 White Blood Count 1.6 TH/MM3 1.7 TH/MM3 Red Blood Count 2.98 MIL/MM3 3.33 MIL/MM3 Hemoglobin 8.5 GM/DL 9.3 GM/DL Hematocrit 25.7 % 28.6 % Mean Corpuscular Volume 86.3 FL 86.0 FL Mean Corpuscular Hemoglobin 28.5 PG 27.9 PG Mean Corpuscular Hemoglobin Concent 33.0 % 32.5 % Red Cell Distribution Width 16.6 % 17.0 % Platelet Count 181 TH/MM3 201 TH/MM3 Mean Platelet Volume 9.3 FL 9.0 FL Neutrophils (%) (Auto) 78.4 % Lymphocytes (%) (Auto) 9.8 % Monocytes (%) (Auto) 10.8 % Eosinophils (%) (Auto) 0.4 % Basophils (%) (Auto) 0.6 % Neutrophils # (Auto) 1.3 TH/MM3 Lymphocytes # (Auto) 0.2 TH/MM3 Monocytes # (Auto) 0.2 TH/MM3 Eosinophils # (Auto) 0.0 TH/MM3 Basophils # (Auto) 0.0 TH/MM3 CBC Comment AUTO DIFF AUTO DIFF Differential Total Cells Counted 100 100 Neutrophils % (Manual) 70 % 58 % Band Neutrophils % 16 % 18 % Lymphocytes % 7 % 15 % Monocytes % 7 % 8 % Neutrophils # (Manual) 1.4 TH/MM3 1.3 TH/MM3 Differential Comment FINAL DIFF MANUAL FINAL DIFF MANUAL Platelet Estimate NORMAL NORMAL Platelet Morphology Comment NORMAL NORMAL Ovalocytes 1+ Eosinophils % 1 % Red Cell Morphology Comment NORMAL Imaging Last Impressions Renal Biopsy CT 12/01/16 0600 Signed Impressions: Service Date/Time: November 14:17 - CONCLUSION: Uncomplicated CT guided biopsy. Alexis Adhikari MD Central Venous Line 11/29/16 0000 Signed Impressions: Service Date/Time: Tuesday, November 29, 2016 00:00 - CONCLUSION: Uncomplicated catheter removal. Solitario Diaz MD Catheter Placement X-Ray 11/29/16 0000 Signed Impressions: Service Date/Time: Tuesday, November 29, 2016 13:58 - CONCLUSION: Uncomplicated PermaCath placement as above. Solitario Diaz MD Tumor Localization 11/14/16 0000 Signed Impressions: Service Date/Time: Monday, November 14, 2016 11:38 - CONCLUSION: Negative scan Solitario Diaz MD Chest X-Ray 11/13/16 0000 Signed Impressions: Service Date/Time: Sunday, November 13, 2016 16:02 - CONCLUSION: No acute cardiopulmonary disease. Quincy Medellin MD Renal Ultrasound 11/05/16 0000 Signed Impressions: Service Date/Time: Saturday, November 05, 2016 19:17 - CONCLUSION: Diffusely echogenic kidneys indicating medical renal disease. Dorian Murry MD Abdomen/Pelvis CT 11/05/16 0000 Signed Impressions: Service Date/Time: Saturday, November 05, 2016 17:19 - CONCLUSION: 1. 4 mm calculus in the right renal pelvis/ureteropelvic junction with mild adjacent perinephric/periureteral stranding. No evidence of hydronephrosis. 2. 1 cm round hypodensity in the anterior right mid kidney statistically most likely to represent a cyst. 3. 3.7 cm hypodensity in the right lobe of the liver air the dome of the diaphragm. This finding is nonspecific on noncontrast CT. The most likely etiologies include hemangioma and cyst. It could be further evaluated with ultrasound nonemergent followup MRI of the abdomen. 4. Mild dilated proximal right common iliac artery. Dorian Murry MD Physical Exam GENERAL: awake and alert, not in respiratory distress. SKIN: Warm and dry. Dry skin EYES: [place] conjunctiva. No petechia or hemorrhage. No scleral icterus. No injection or drainage. EARS, NOSE AND THROAT: Nose without bleeding or purulent nasal discharge. Mucous membranes pink and moist. White coating on tongue NECK: Trachea midline. Supple and not tender, no meningeal signs CARDIOVASCULAR: Regular rate and rhythm. No murmurs, rubs or gallops heard RESPIRATORY: Clear to auscultation. Breath sounds equal bilaterally. No rales , wheezing or rhonchi ABDOMEN: Soft, mild tenderness, not distended, dry dressing over cath. Bowel sounds present and normoactive. No guarding. No rebound. No organomegaly. Has [place] brown non tender nodule on R lateral groin (chronic been there for years, not getting bigger) EXTREMITIES: No clubbing, cyanosis, or edema.No joint effusion, has good ROM. No calf tenderness. Well perfused and warm. BUTTOCK: Ulcers healed NEUROLOGICAL: Awake alert Non-focal PSYCHIATRIC: Normal affect, calm and cooperative. 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
[2017-01-02 23:15] LABS: ABACAVIR SUSC; ATAZANAVIR WITH RITONAVIR SUSC; DARUNAVIR WITH RITONAVIR SUSC; DIDANOSINE SUSC; EFAVIRENZ SUSC; EMTRICITABINE RESIST; ETRAVIRINE SUSC; FOSAMPRENAVIR WITH RITONAVIR SUSC; HIV-1 GENOTYPING INTERP; INDINAVIR WITH RITONAVIR SUSC; LAMIVUDINE RESIST; LOPINAVIR WITH RITONAVIR SUSC; NELFINAVIR SUSC; NEVIRAPINE SUSC; NONNUCLEOSIDE RT MUTATIONS V106I; RILPIVIRINE SUSC; SAQUINAVIR WITH RITONAVIR SUSC; STAVUDINE SUSC; TENOFOVIR SUSC; TIPRANAVIR WITH RITONAVIR SUSC; ZIDOVUDINE SUSC
[2017-01-03] VITALS (8 sets, daily range): BP systolic 128–156; BP diastolic 74–91; PULSE 88–125; RESP 18–24; TEMP 98.8–103.1; O2SAT 94–100
[2017-01-03] MEDS: ACETAMINOPHEN 325 MG TAB PO PRN ×4 (01:10→21:57)
[2017-01-03] MEDS: SODIUM CHLORIDE 0.9% FLUSH 10 ML FLUSH IV FLUSH SCH ×2 (09:00→20:58)
[2017-01-03] MEDS: DOCUSATE SODIUM 50 MG/SENNA 8.6 MG TAB PO SCH ×2 (09:00→20:59)
--- NOTE | 2017-01-03 10:39 | HHI.NPPN ---
Subjective History of Present Illness 50-year-old male with past medical history of HIV disease for more than 20 years and history of renal stone who came to the hospital with complaint of back pain. The patient has back pain going on for the last 2 months off and on and he came to the emergency department yesterday with worsening pain. Additional Remarks Patient is alert, now on HD and has fever, BP is stable. Review of Systems General Constitutional: Fatigue Cardiovascular Cardiac: MIRZA Objective Data Data Vital Signs Date Time Temp Pulse Resp B/P (MAP) Pulse Ox O2 Delivery O2 Flow Rate FiO2 01/03/17 08:02 98.8 88 18 146/91 (109) 100 01/03/17 04:00 100.3 112 24 128/82 (97) 98 01/03/17 01:10 100.3 01/03/17 00:00 103.1 122 21 143/89 (107) 94 01/02/17 20:00 88 01/02/17 20:00 Room Air 01/02/17 20:00 98.0 95 18 111/66 (81) 96 01/02/17 16:02 102.0 116 18 133/90 (104) 98 01/02/17 12:05 100.2 95 18 148/88 (108) 100 -: 01/02/17 0644 12/30/16 0252 Physical Exam General Appearance: No Acute Distress, Comfortable Eyes Eye Exam: Pupils Equal Throat Throat Exam: Oral Mucosa [place] & Moist Pulmonary Resp Exam: Breath Sounds Equal, No Distress, Rhonchi, Decreased Bases Cardiology CV Exam: Regular, Normal Sinus Rhythm Gastrointestinal/Abdomen GI Exam: Soft, Non-Tender, Bowel Sounds Present Extremeties Extremities Exam: No Edema Neurologic Neuro Exam: Alert, Awake, Oriented Psychiatric Psych Exam: Appropriate Responses Assessment/Plan Assessment Summary: MIKE/Acute Renal Failure Problem List: (1) Renal failure ICD Codes: N19 - Unspecified kidney failure Status: Acute (2) Sepsis ICD Codes: A41.9 - Sepsis, unspecified organism Status: Acute (3) Open wound of scrotum ICD Codes: S31.30XA - Unspecified open wound of scrotum and testes, initial encounter Status: Acute Plan c/o blurry vision left eye Remain non oliguric. SPEP was negative. Complements normal, other serology also negative. BP is better, on Metoprolol to 50 mg BID. If renal function will not improve, will consider Renal Biopsy once infection is controlled. Fever pattern is better, ID is following. Now on Bactrim, Acyclovir, Clarithromycin and Ethambutol. No improvement in renal function. Possibly has End stage renal disease. Got PermCath. 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 No need to repeat the renal Biopsy as clinically he is showing no improvement, and the with advance HIV , the treatment options are limited, cannot be given immunosuppressive drugs. I discussed this in detail with patient. Now he change his mind and want to go for PD from ID stand point. He understand increase risk of infection due to advance HIV. Has PD catheter done. Now on Valganciclovir, ID following. Gallium scan is negative. HD to continue TTS. On Epogen , follow Hgb. Transfuse as needed. WBC decreased, possibly related to Valcyte. ID is following, Valcyte dose decreased. Has FUO, further recommendation as per ID. Problem Qualifiers (1) Renal failure: (2) Sepsis: Kwadwo Shah MD Jan 03, 2017 10:39
[2017-01-03] MEDS: SODIUM CHLOR 0.9% 1000 ML INJ 1,000 ML IV PRN (11:10)
[2017-01-03] MEDS: HEPARIN SODIUM - IV 10,000 UNITS/10 ML VIAL PRN (11:10)
[2017-01-03] MEDS: GENTAMICIN SULFATE (DIALYSIS USE ONLY) 20 MG/2 ML VIAL IV PRN (11:10)
--- NOTE | 2017-01-03 11:52 | HHI.PR ---
Subjective Remarks having his HD today. in no distress and no new complaints. however still febrile; Tmax 103.1. Objective Vitals Vital Signs Date Time Temp Pulse Resp B/P (MAP) Pulse Ox O2 Delivery O2 Flow Rate FiO2 01/03/17 08:10 Room Air 01/03/17 08:10 100 01/03/17 08:02 98.8 88 18 146/91 (109) 100 01/03/17 04:00 100.3 112 24 128/82 (97) 98 01/03/17 01:10 100.3 01/03/17 00:00 103.1 122 21 143/89 (107) 94 01/02/17 20:00 88 01/02/17 20:00 Room Air 01/02/17 20:00 98.0 95 18 111/66 (81) 96 01/02/17 16:02 102.0 116 18 133/90 (104) 98 01/02/17 12:05 100.2 95 18 148/88 (108) 100 I/O 01/02/17 01/02/17 01/02/17 01/03/17 01/03/17 01/03/17 07:00 15:00 23:00 07:00 15:00 23:00 Intake Total 640 ml 240 ml 460 ml Output Total 150 ml 275 ml 550 ml Balance 490 ml -35 ml -90 ml Intake Oral 640 ml 240 ml 460 ml Output Urine Total 150 ml 275 ml 550 ml # Bowel Movements 2 0 1 Result Diagram: 01/02/17 0644 12/30/16 0252 Imaging Last Impressions Gallium Scan Nuclear Medicine 12/19/16 0000 Signed Impressions: Service Date/Time: Monday, December 19, 2016 13:19 - CONCLUSION: Negative for occult inflammatory process. Enzo Isbell MD FACR Upper Extremity Ultrasound 12/07/16 0000 Signed Impressions: Service Date/Time: Wednesday, December 07, 2016 10:11 - CONCLUSION: Venous mapping as above. Enzo Isbell MD FACR Renal Biopsy CT 12/01/16 0600 Signed Impressions: Service Date/Time: November 14:17 - CONCLUSION: Uncomplicated CT guided biopsy. Alexis Adhikari MD Central Venous Line 11/29/16 0000 Signed Impressions: Service Date/Time: Tuesday, November 29, 2016 00:00 - CONCLUSION: Uncomplicated catheter removal. Solitario Diaz MD Catheter Placement X-Ray 11/29/16 0000 Signed Impressions: Service Date/Time: Tuesday, November 29, 2016 13:58 - CONCLUSION: Uncomplicated PermaCath placement as above. Solitario Diaz MD Tumor Localization 11/14/16 0000 Signed Impressions: Service Date/Time: Monday, November 14, 2016 11:38 - CONCLUSION: Negative scan Solitario Diaz MD Chest X-Ray 11/13/16 0000 Signed Impressions: Service Date/Time: Sunday, November 13, 2016 16:02 - CONCLUSION: No acute cardiopulmonary disease. Quincy Medellin MD Renal Ultrasound 11/05/16 0000 Signed Impressions: Service Date/Time: Saturday, November 05, 2016 19:17 - CONCLUSION: Diffusely echogenic kidneys indicating medical renal disease. Dorian Murry MD Abdomen/Pelvis CT 11/05/16 0000 Signed Impressions: Service Date/Time: Saturday, November 05, 2016 17:19 - CONCLUSION: 1. 4 mm calculus in the right renal pelvis/ureteropelvic junction with mild adjacent perinephric/periureteral stranding. No evidence of hydronephrosis. 2. 1 cm round hypodensity in the anterior right mid kidney statistically most likely to represent a cyst. 3. 3.7 cm hypodensity in the right lobe of the liver air the dome of the diaphragm. This finding is nonspecific on noncontrast CT. The most likely etiologies include hemangioma and cyst. It could be further evaluated with ultrasound nonemergent followup MRI of the abdomen. 4. Mild dilated proximal right common iliac artery. Dorian Murry MD Objective Remarks GENERAL: This is a well-nourished, well-developed patient, in no apparent distress. CARDIOVASCULAR: Regular rate and regular rhythm without murmurs, gallops, or rubs. RESPIRATORY: Clear to auscultation. Breath sounds equal bilaterally. No wheezes , rales, or rhonchi. GASTROINTESTINAL: Abdomen soft, non-tender, nondistended. Normal, active bowel sounds MUSCULOSKELETAL: Extremities without clubbing, cyanosis, or edema. NEURO: Alert & Oriented x4 to person, place, time, situation. Moves all ext x4 Procedures 11/14/16 hemodialysis catheter placement, right internal jugular 9/20 PD cath placement Medications and IVs Current Medications Sodium Chloride 1,000 ml @ 1,000 mls/hr Q1H ONCE IV Last administered on 14:25; Start 11/05/16 at 13:54; Stop 11/05/16 at 14:53; Status DC Sodium Chloride 1,000 ml @ 1,000 mls/hr Q1H ONCE IV Last administered on 15:12; Start 11/05/16 at 13:54; Stop 11/05/16 at 14:53; Status DC Sodium Chloride 100 ml @ 1,000 mls/hr Q6M ONCE IV Last administered on 15:32; Start 11/05/16 at 13:54; Stop 11/05/16 at 13:59; Status DC Vancomycin HCl 1050 mg/Sodium Chloride 260.5 ml @ 250 mls/hr ONCE ONCE IV Last administered on 11/05/16 15:06; Start 11/05/16 at 14:00; Stop 11/05/16 at 15:02; Status DC Piperacillin Sod/ Tazobactam Sod 50 ml @ 100 mls/hr ONCE ONCE IV Last administered on 11/05/16 16:38; Start 11/05/16 at 14:00; Stop 11/05/16 at 14:29 ; Status DC Acetaminophen (Tylenol) 1,000 mg ONCE ONCE PO Last administered on 11/05/16 16:38; Start 11/05/16 at 15:45; Stop 11/05/16 at 15:46; Status DC Abacavir Sulfate (Ziagen) 300 mg BID PO ; Start 11/05/16 at 21:00; Stop at 21:00; Status DC Lamivudine (Epivir) 150 mg BID PO ; Start 11/05/16 at 21:00; Stop 11/05/16 at 21 :00; Status DC Lopinavir/ Ritonavir (Kaletra 200-50 Mg) 1 tab BID PO ; Start 11/05/16 at 21:00 ; Stop 11/05/16 at 21:00; Status DC Pharmacy Profile Note 0 ml @ 0 mls/hr UNSCH OTHER ; Start 11/05/16 at 16:15; Stop 11/08/16 at 09:10; Status DC Piperacillin Sod/ Tazobactam Sod 50 ml @ 100 mls/hr Q8H IV Last administered on 11/09/16 16:35; Start 11/06/16 at 00:00; Stop 11/09/16 at 17:24; Status DC Sodium Chloride 1,000 ml @ 83 mls/hr Q12H3M IV Last administered on 11/09/16 05:17; Start 11/05/16 at 17:00; Stop 11/09/16 at 16:19; Status DC Sodium Chloride (NS Flush) 2 ml UNSCH PRN IV FLUSH FLUSH AFTER USING IV ACCESS ; Start 11/05/16 at 16:15 Sodium Chloride (NS Flush) 2 ml BID IV FLUSH Last administered on 12/14/16 07: 26; Start 11/05/16 at 21:00; Stop 12/14/16 at 10:39; Status DC Acetaminophen (Tylenol) 650 mg Q4H PRN PO TEMP > 100.4 Last administered on 01:10; Start 11/05/16 at 16:15 Ondansetron HCl (Zofran Inj) 4 mg Q6H PRN IVP NAUSEA OR VOMITING Last administered on 12/22/16 21:14; Start 11/05/16 at 16:15 Heparin Sodium (Porcine) (Heparin Inj) 5,000 units Q12H SQ Last administered on 12/08/16 18:16; Start 11/05/16 at 17:00; Status Future Hold Naloxone HCl (Narcan Inj) 0.4 mg UNSCH PRN IV SEE LABEL COMMENTS; Start at 16:15 Senna/Docusate Sodium (Dee-Colace) 1 tab BID PO Last administered on 08:42; Start 11/05/16 at 21:00 Magnesium Hydroxide (Milk Of Magnesia Liq) 30 ml Q12H PRN PO MILD - MODERATE CONSTIPATION; Start 11/05/16 at 16:15 Sennosides (Senokot) 17.2 mg Q12H PRN PO MODERATE - SEVERE CONSTIPATION; Start 11/05/16 at 16:15 Bisacodyl (Dulcolax Supp) 10 mg DAILY PRN RECTAL SEVERE CONSITIPATION; Start at 16:15 Lactulose (Lactulose Liq) 30 ml DAILY PRN PO SEVERE CONSITIPATION; Start at 16:15 Acetaminophen/ Hydrocodone Bitart ([place] 7.5-325 Mg) 1 tab Q4H PRN PO PAIN SCALE 4 TO 10; Start 11/05/16 at 16:15; Stop 12/14/16 at 10:38; Status DC Nystatin (Mycostatin Liq) 5 ml QID SWISH-SWAL Last administered on 11/26/16 21 :39; Start 11/05/16 at 18:00; Stop 11/27/16 at 13:26; Status DC Vancomycin HCl 1000 mg/Sodium Chloride 250 ml @ 250 mls/hr ONCE ONCE IV Last administered on 11/07/16 11:27; Start 11/07/16 at 12:00; Stop 11/07/16 at 12:59 ; Status DC Valacyclovir HCl (Valtrex) 500 mg Q8HR PO Last administered on 11/15/16 20:39 ; Start 11/08/16 at 09:15; Stop 11/15/16 at 23:00; Status DC Sodium Bicarbonate (Sodium Bicarbonate) 650 mg Q12HR PO Last administered on 07:49; Start 11/09/16 at 21:00; Stop 11/16/16 at 16:54; Status DC Ceftriaxone Sodium 2000 mg/ Sodium Chloride 100 ml @ 200 mls/hr Q24H IV Last administered on 11/21/16 15:59; Start 11/09/16 at 18:00; Stop 11/21/16 at 16:39 ; Status DC Metoprolol Tartrate (Lopressor) 12.5 mg Q12HR PO Last administered on 10:02; Start 11/10/16 at 18:00; Stop 11/13/16 at 14:05; Status DC Levofloxacin (Levaquin) 250 mg Q48H PO Last administered on 11/15/16 17:57; Start 11/11/16 at 16:00; Stop 11/16/16 at 10:23; Status DC Azithromycin (Zithromax) 250 mg DAILY PO Last administered on 11/21/16 08:41; Start 11/11/16 at 15:15; Stop 11/21/16 at 16:45; Status DC Sodium Bicarbonate 75 meq/Sodium Chloride 1,075 ml @ 75 mls/hr [id number] IV Last administered on 11/16/16 00:00; Start 11/12/16 at 21:00; Stop 11/16/16 at 06:05; Status DC Sodium Chloride 250 ml @ 15 mls/hr ONCE ONCE IV ; Start 11/13/16 at 06:00; Stop 11/13/16 at 22:39; Status DC Metoprolol Tartrate (Lopressor) 25 mg Q12HR PO Last administered on 11/16/16 07:49; Start 11/13/16 at 21:00; Stop 11/16/16 at 16:54; Status DC Metoprolol Tartrate (Lopressor) 12.5 mg ONCE ONCE PO Last administered on 11/13 16:16; Start 11/13/16 at 14:30; Stop 11/13/16 at 14:31; Status DC Miscellaneous (Pill Splitter) 1 ea UNSCH PRN OTHER SEE LABEL COMMENTS; Start at 14:30 Sodium Chloride 1,000 ml @ 0 mls/hr Q0M PRN IV For Prime & Rinse Back Last administered on 01/03/17 11:10; Start 11/13/16 at 17:02 Heparin Sodium (Porcine) (Heparin Inj) 8,000 units UNSCH PRN IVF WITH DIALYSIS Last administered on 12/31/16 09:59; Start 11/13/16 at 17:15 Sodium Chloride 1,000 ml @ 200 mls/hr Q5H PRN IV WITH DIALYSIS; Start 11/13/16 at 17:02 Sodium Chloride 1,000 ml @ 0 mls/hr Q0M PRN IV WITH DIALYSIS; Start 11/13/16 at 17:02 Mannitol (Mannitol Inj) 12.5 gm UNSCH PRN IV WITH DIALYSIS; Start 11/13/16 at 17:15 Albumin Human (Albumin 25% Inj) 25 gm UNSCH PRN IV WITH DIALYSIS Last administered on 12/31/16 09:58; Start 11/13/16 at 17:15 Sodium Chloride (NS Flush) 5 ml UNSCH PRN IV FLUSH WITH DIALYSIS Last administered on 12/17/16 10:57; Start 11/13/16 at 17:15 Heparin Sodium (Porcine) (Heparin Inj) UNSCH PRN .XX WITH DIALYSIS Last administered on 01/03/17 11:10; Start 11/13/16 at 17:15 Gentamicin Sulfate (Gentamicin (Dialysis) Inj) 20 mg UNSCH PRN IV WITH DIALYSIS Last administered on 01/03/17 11:10; Start 11/13/16 at 17:15 Ondansetron HCl (Zofran Inj) 4 mg UNSCH PRN IV WITH DIALYSIS Last administered on 12/09/16 20:25; Start 11/13/16 at 17:15 Acetaminophen (Tylenol) 650 mg UNSCH PRN PO for headach, pain, temp > 101F Last administered on 01/03/17 08:50; Start 11/13/16 at 17:15 Diphenhydramine HCl (Benadryl) 25 mg UNSCH PRN PO for hives/itching/anaphylaxis ; Start 11/13/16 at 17:15 Nitroglycerin (Nitrostat Sl) 0.4 mg UNSCH PRN SL CHEST PAIN; Start 11/13/16 at 17:15 Clonidine (Catapres) 0.1 mg UNSCH PRN PO for BP > 170/100 X 2 readings Last administered on 12/08/16 13:25; Start 11/13/16 at 17:15 Gelatin (Gelfoam 12 Mm/7 Mm Top) 1 foam UNSCH PRN TOP SEE LABEL COMMENTS; Start 11/13/16 at 17:15 Heparin Sodium (Porcine) (*HEPARIN INJ Periprocedural ONLY) 10,000 units STK- MED ONCE .ROUTE Last administered on 11/14/16 11:29; Start 11/14/16 at 11:26; Stop 11/14/16 at 11:27; Status DC Sodium Chloride (NS Flush) UNSCH PRN IVF SEE PROTOCOL; Start 11/14/16 at 11:45 ; Stop 11/29/16 at 19:51; Status DC Heparin Sodium (Porcine) (Heparin Inj) UNSCH PRN IV FLUSH SEE PROTOCOL Last administered on 11/29/16 10:25; Start 11/14/16 at 11:45; Stop 11/29/16 at 19:51; Status DC Potassium Bicarb/ Potassium Chloride (K-Lyte Cl Eff) 50 meq ONCE ONCE PO Last administered on 11/16/16 06:37; Start 11/16/16 at 06:00; Stop 11/16/16 at 06:02; Status DC Potassium Chloride 100 ml @ 50 mls/hr Q2H IV Last administered on 11/16/16 07 :49; Start 11/16/16 at 06:00; Stop 11/16/16 at 10:04; Status DC Levofloxacin (Levaquin) 250 mg Q24H PO Last administered on 12/07/16 16:24; Start 11/16/16 at 16:00; Stop 12/08/16 at 12:55; Status DC Metoprolol Tartrate (Lopressor) 50 mg Q12HR PO Last administered on 12/02/16 08 :53; Start 11/16/16 at 21:00; Status Future Hold Valacyclovir HCl (Valtrex) 500 mg DAILY PO Last administered on 11/22/16 08:36 ; Start 11/17/16 at 10:45; Stop 11/22/16 at 08:59; Status DC Amlodipine Besylate (Norvasc) 5 mg DAILY PO Last administered on 12/02/16 08:53 ; Start 11/19/16 at 12:00; Status Future Hold Ethambutol HCl (Myambutol) 800 mg DAILY PO Last administered on 12/03/16 14:22 ; Start 11/21/16 at 18:00; Stop 12/03/16 at 16:35; Status DC Clarithromycin (Biaxin) 500 mg Q12HR PO Last administered on 01/02/17 20:10; Start 11/21/16 at 21:00 Acyclovir (Zovirax) 400 mg Q12HR PO Last administered on 12/03/16 14:22; Start 11/23/16 at 12:30; Stop 12/03/16 at 18:16; Status DC Trimethoprim/ Sulfamethoxazole (Bactrim Ds 800-160 Mg) 1 tab MoWeFr@09 PO Last administered on 12/21/16 09:33; Start 11/25/16 at 09:00; Stop 12/22/16 at 14:14 ; Status DC Fluconazole (Diflucan) 200 mg ONCE ONCE PO Last administered on 11/26/16 12:46 ; Start 11/26/16 at 07:45; Stop 11/26/16 at 07:46; Status DC Fluconazole (Diflucan) 100 mg DAILY PO Last administered on 12/09/16 10:19; Start 11/27/16 at 09:00; Stop 12/09/16 at 15:27; Status DC Fentanyl Citrate (fentaNYL INJ) 100 mcg STK-MED ONCE .ROUTE Last administered on 11/29/16 13:50; Start 11/29/16 at 13:50; Stop 11/29/16 at 13:51; Status DC Midazolam HCl (Versed Inj) 2 mg STK-MED ONCE .ROUTE Last administered on 13:50; Start 11/29/16 at 13:50; Stop 11/29/16 at 13:51; Status DC Midazolam HCl (Versed Inj) 2 mg STK-MED ONCE .ROUTE ; Start 11/29/16 at 13:50; Stop 11/29/16 at 13:51; Status DC Fentanyl Citrate (fentaNYL INJ) 100 mcg STK-MED ONCE .ROUTE ; Start 11/29/16 at 13:51; Stop 11/29/16 at 13:52; Status DC Heparin Sodium (Porcine) (*HEPARIN INJ Periprocedural ONLY) 10,000 units STK- MED ONCE .ROUTE Last administered on 11/29/16 14:08; Start 11/29/16 at 14:08; Stop 11/29/16 at 14:09; Status DC Lidocaine/ Epinephrine (Xylocaine-Epi 2%-1:100,000 Inj) 20 ml STK-MED ONCE .ROUTE ; Start 11/29/16 at 14:09; Stop 11/29/16 at 14:10; Status DC Lidocaine/ Epinephrine (Xylocaine-Epi 2%-1:100,000 Inj) 20 ml STK-MED ONCE .ROUTE Last administered on 11/29/16 14:10; Start 11/29/16 at 14:10; Stop at 14:11; Status DC Sodium Chloride (NS Flush) UNSCH PRN IVF SEE PROTOCOL; Start 11/29/16 at 18:15 Heparin Sodium (Porcine) (Heparin Inj) UNSCH PRN IV FLUSH SEE PROTOCOL Last administered on 12/06/16 10:15; Start 11/29/16 at 18:15 Fentanyl Citrate (fentaNYL INJ) 100 mcg STK-MED ONCE .ROUTE Last administered on 12/01/16 13:16; Start 12/01/16 at 13:16; Stop 12/01/16 at 13:17; Status DC Midazolam HCl (Versed Inj) 2 mg STK-MED ONCE .ROUTE Last administered on 13:16; Start 12/01/16 at 13:16; Stop 12/01/16 at 13:17; Status DC Lidocaine HCl (Xylocaine 1% Inj) 20 ml STK-MED ONCE .ROUTE Last administered on 12/01/16 13:45; Start 12/01/16 at 13:45; Stop 12/01/16 at 13:46; Status DC Sodium Bicarbonate 50 ml @ As Directed STK-MED ONCE .ROUTE Last administered on 12/01/16 13:45; Start 12/01/16 at 13:45; Stop 12/01/16 at 13:46; Status DC Lactobacillus Acidophilus (Lactinex) 1 tab Q12HR PO Last administered on 20:10; Start 12/02/16 at 10:00 Pharmacy Profile Note 0 ml @ 0 mls/hr UNSCH OTHER ; Start 12/03/16 at 17:00; Status Cancel Ethambutol HCl (Myambutol) 800 mg DAILY PO Last administered on 01/02/17 09:39 ; Start 12/04/16 at 09:00 Ganciclovir Sodium 81 mg/ Sodium Chloride 101.62 ml @ 101.62 mls/hr WITH DIALYSIS IV ; Start 12/04/16 at 09:00; Stop 12/10/16 at 12:45; Status DC Ganciclovir Sodium 81 mg/ Sodium Chloride 101.62 ml @ 101.62 mls/hr ONCE ONCE IV Last administered on 12/03/16 22:38; Start 12/03/16 at 21:00; Stop 12/03/16 at 21:59; Status DC Ganciclovir Sodium 41 mg/ Sodium Chloride 100.82 ml @ 100.82 mls/hr TuThSa IV ; Start 12/27/16 at 14:00; Stop 12/27/16 at 14:00; Status DC Epoetin Abel (Epogen Inj) 10,000 units UNSCH PRN IV WITH DIALYSIS Last administered on 12/31/16 10:00; Start 12/06/16 at 09:30 Levofloxacin (Levaquin) 250 mg Q48H PO Last administered on 12/08/16 18:16; Start 12/08/16 at 16:00; Stop 12/09/16 at 15:27; Status DC Sodium Chloride 250 ml @ 15 mls/hr ONCE ONCE IV Last administered on 10:21; Start 12/08/16 at 17:00; Stop 12/09/16 at 09:39; Status DC Acetaminophen (Tylenol) 650 mg Q4H PRN PO SEE LABEL COMMENTS; Start 12/08/16 at 17:00; Stop 12/09/16 at 16:59; Status DC Diphenhydramine HCl (Benadryl) 25 mg Q4H PRN PO SEE LABEL COMMENTS; Start 12/08 at 17:00; Stop 12/09/16 at 16:59; Status DC Furosemide (Lasix Inj) 20 mg ONCE ONCE IV Last administered on 12/09/16 14:08 ; Start 12/08/16 at 17:00; Stop 12/08/16 at 17:02; Status DC Rifampin (Rifampin) 300 mg Q12HR PO Last administered on 01/02/17 20:10; Start 12/09/16 at 21:00 Ganciclovir Sodium 81 mg/ Sodium Chloride 101.62 ml @ 101.62 mls/hr TuThSa IV Last administered on 12/24/16 15:58; Start 12/10/16 at 12:45; Stop 12/24/16 at 23:00; Status DC Bupivacaine HCl/ Epinephrine Bitart (Sensorcaine-Epinephrine Pf 0.25% Inj) 10 ml ONCE ONCE INFIL ; Start 12/14/16 at 09:45; Stop 12/14/16 at 10:17; Status DC Sodium Chloride (NS Flush) 2 ml UNSCH PRN IV FLUSH FLUSH AFTER USING IV ACCESS ; Start 12/14/16 at 10:45 Sodium Chloride (NS Flush) 2 ml BID IV FLUSH Last administered on 01/02/17 20: 10; Start 12/14/16 at 21:00 Acetaminophen/ Hydrocodone Bitart ([place] 5-325 Mg) 1 tab Q4H PRN PO PAIN SCALE 1 TO 5; Start 12/14/16 at 10:45 Acetaminophen/ Hydrocodone Bitart ([place] 5-325 Mg) 2 tab Q4H PRN PO PAIN SCALE 6 TO 10; Start 12/14/16 at 10:45 Miscellaneous Information (Post-op Orders (for Pharmacy)) STAT ONCE XX Last administered on 12/14/16 10:45; Start 12/14/16 at 10:45; Stop 12/14/16 at 10:46 ; Status DC Miscellaneous Information ALL NURSING DEPARTME... UNSCH PRN .XX SEE LABEL COMMENTS; Start 12/14/16 at 11:30; Stop 12/15/16 at 11:29; Status DC Sodium Biphosphate/ Sodium Phosphate (Fleets Enema (Adult)) 133 ml ONCE ONCE RECTAL Last administered on 12/20/16 09:22; Start 12/20/16 at 09:15; Stop at 09:16; Status DC Influenza Virus Vaccine (Flu (Quadrivalent) Vaccine Inj) 0.5 ml ONCE ONCE IM Last administered on 12/24/16 12:20; Start 12/24/16 at 10:00; Stop 12/24/16 at 10:01; Status DC Naproxen (Naprosyn) 500 mg ONCE ONCE PO Last administered on 12/25/16 01:12; Start 12/25/16 at 01:15; Stop 12/25/16 at 01:16; Status DC Valganciclovir (Valcyte) 450 mg DAILY PO Last administered on 01/02/17 09:39; Start 12/26/16 at 13:45; Stop 01/02/17 at 12:45; Status DC Potassium Chloride (KCl) 40 meq ONCE ONCE PO Last administered on 12/30/16 06 :05; Start 12/30/16 at 05:00; Stop 12/30/16 at 05:07; Status DC Prednisone (Deltasone) 40 mg DAILY PO Last administered on 01/02/17 09:39; Start 12/30/16 at 14:15; Stop 01/02/17 at 14:14; Status DC Prednisone (Deltasone) 40 mg DAILY PO ; Start 01/03/17 at 09:00 Valganciclovir (Valcyte) 450 mg EVERY OTHER DAY PO ; Start 01/04/17 at 09:00 Side: Right A/P Problem List: (1) Renal failure ICD Code: N19 - Unspecified kidney failure Status: Acute (2) Sepsis ICD Code: A41.9 - Sepsis, unspecified organism Status: Acute (3) UTI (urinary tract infection) ICD Code: N39.0 - Urinary tract infection, site not specified (4) Chronic kidney disease, stage V ICD Code: N18.5 - Chronic kidney disease, stage 5 (5) HIV (human immunodeficiency virus infection) ICD Code: B20 - Human immunodeficiency virus [HIV] disease (6) Anemia ICD Code: D64.9 - Anemia, unspecified (7) Hypertension ICD Code: I10 - Essential (primary) hypertension (8) Medical non-compliance ICD Code: Z91.19 - Patient's noncompliance with other medical treatment and regimen Assessment and Plan A/P AIDS MAC/ CMV infection FUO - noncompliant with HAART for the last 2 months. - Continue Biaxin, Valganciclovir, Ethambutol,Rifampin per infectious disease . -gallium scan negative/ repeated blood cultures negative. -trial of prednisone. - ID following. Acute renal failure superimposed on chronic kidney disease stage V - Nephrology following, remains non-oliguric. -Recent kidney biopsy FSGS, with 2 out of 7 Glomeruli sclerosis - HD per nephrology. -s/p peritoneal cath placement. HIV/AIDS - CD4 count less than 20. Patient admitted to being noncompliant with HAART meds for the last 2 months. He has been counseled. 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 Oral thrush, improved: treated with Diflucan Anemia of chronic disease -s/p PRBC transfusion on 12/31/16 - H/H improved- -on Epogen -Continue to monitor H&H Discharge Planning still with on and off fever. ID following. Problem Qualifiers (1) Renal failure: (2) Sepsis: Neelima Burgess MD Jan 03, 2017 11:52
[2017-01-03] MEDS: predniSONE 20 MG TAB PO SCH (16:19)
[2017-01-03] MEDS: CLARITHROMYCIN 500 MG TAB PO SCH ×2 (16:19→20:58)
[2017-01-03] MEDS: RIFAMPIN 150 MG CAP PO SCH ×2 (16:19→20:58)
[2017-01-03] MEDS: ETHAMBUTOL HCL 400 MG TAB PO SCH (16:20)
[2017-01-03] MEDS: LACTOBACILLUS ACIDOPHILUS TAB PO SCH ×2 (16:20→20:59)
[2017-01-04] VITALS (9 sets, daily range): BP systolic 107–152; BP diastolic 68–93; PULSE 68–140; RESP 16–24; TEMP 97.1–102.8; O2SAT 94–100
[2017-01-04] MEDS ORDERED: ACETAMINOPHEN 650 MG SUPP RECTAL ONE (05:30)
[2017-01-04] MEDS: predniSONE 20 MG TAB PO SCH (08:26)
[2017-01-04] MEDS: ETHAMBUTOL HCL 400 MG TAB PO SCH (08:26)
[2017-01-04] MEDS: LACTOBACILLUS ACIDOPHILUS TAB PO SCH ×2 (08:26→20:44)
[2017-01-04] MEDS: CLARITHROMYCIN 500 MG TAB PO SCH ×2 (08:27→20:45)
[2017-01-04] MEDS: RIFAMPIN 150 MG CAP PO SCH ×2 (08:27→20:45)
[2017-01-04] MEDS: DOCUSATE SODIUM 50 MG/SENNA 8.6 MG TAB PO SCH ×2 (08:27→20:45)
[2017-01-04] MEDS: SODIUM CHLORIDE 0.9% FLUSH 10 ML FLUSH IV FLUSH SCH ×2 (08:35→20:45)
--- NOTE | 2017-01-04 09:24 | HHI.PR ---
Subjective Remarks in no distress. still with ongoing fever; Tmax 102.8. denies any pain or specific symptoms. Objective Vitals Vital Signs Date Time Temp Pulse Resp B/P (MAP) Pulse Ox O2 Delivery O2 Flow Rate FiO2 01/04/17 08:00 99.0 105 16 107/68 (81) 98 01/04/17 06:41 100.4 01/04/17 04:42 Room Air 01/04/17 04:10 102.8 01/04/17 04:00 102.8 140 24 129/90 (103) 94 01/04/17 00:00 100.4 108 19 120/77 (91) 98 01/04/17 00:00 Room Air 01/03/17 20:30 101 01/03/17 20:00 102.8 121 22 156/74 (101) 94 01/03/17 20:00 Room Air 01/03/17 16:02 102.8 125 19 128/75 (92) 99 I/O 01/03/17 01/03/17 01/03/17 01/04/17 01/04/17 01/04/17 06:59 14:59 22:59 06:59 14:59 22:59 Intake Total 460 ml 480 ml 520 ml Output Total 550 ml 1200 ml 120 ml 200 ml Balance -90 ml -1200 ml 360 ml 320 ml Intake Oral 460 ml 520 ml Oral Supplement 480 ml Output Urine Total 550 ml 120 ml 200 ml Hemodialysis 1200 ml # Bowel Movements 1 0 3 Result Diagram: 01/02/17 0644 Imaging Last Impressions Gallium Scan Nuclear Medicine 12/19/16 0000 Signed Impressions: Service Date/Time: Monday, December 19, 2016 13:19 - CONCLUSION: Negative for occult inflammatory process. Enzo Isbell MD FACR Upper Extremity Ultrasound 12/07/16 0000 Signed Impressions: Service Date/Time: Wednesday, December 07, 2016 10:11 - CONCLUSION: Venous mapping as above. Enzo Isbell MD FACR Renal Biopsy CT 12/01/16 0600 Signed Impressions: Service Date/Time: November 14:17 - CONCLUSION: Uncomplicated CT guided biopsy. Alexis Adhikari MD Central Venous Line 11/29/16 0000 Signed Impressions: Service Date/Time: Tuesday, November 29, 2016 00:00 - CONCLUSION: Uncomplicated catheter removal. Solitario Diaz MD Catheter Placement X-Ray 11/29/16 0000 Signed Impressions: Service Date/Time: Tuesday, November 29, 2016 13:58 - CONCLUSION: Uncomplicated PermaCath placement as above. Solitario Diaz MD Tumor Localization 11/14/16 0000 Signed Impressions: Service Date/Time: Monday, November 14, 2016 11:38 - CONCLUSION: Negative scan Solitario Diaz MD Chest X-Ray 11/13/16 0000 Signed Impressions: Service Date/Time: Sunday, November 13, 2016 16:02 - CONCLUSION: No acute cardiopulmonary disease. Quincy Medellin MD Renal Ultrasound 11/05/16 0000 Signed Impressions: Service Date/Time: Saturday, November 05, 2016 19:17 - CONCLUSION: Diffusely echogenic kidneys indicating medical renal disease. Dorian Murry MD Abdomen/Pelvis CT 11/05/16 0000 Signed Impressions: Service Date/Time: Saturday, November 05, 2016 17:19 - CONCLUSION: 1. 4 mm calculus in the right renal pelvis/ureteropelvic junction with mild adjacent perinephric/periureteral stranding. No evidence of hydronephrosis. 2. 1 cm round hypodensity in the anterior right mid kidney statistically most likely to represent a cyst. 3. 3.7 cm hypodensity in the right lobe of the liver air the dome of the diaphragm. This finding is nonspecific on noncontrast CT. The most likely etiologies include hemangioma and cyst. It could be further evaluated with ultrasound nonemergent followup MRI of the abdomen. 4. Mild dilated proximal right common iliac artery. Dorian Murry MD Objective Remarks GENERAL: This is a well-nourished, well-developed patient, in no apparent distress. CARDIOVASCULAR: Regular rate and regular rhythm without murmurs, gallops, or rubs. RESPIRATORY: Clear to auscultation. Breath sounds equal bilaterally. No wheezes , rales, or rhonchi. GASTROINTESTINAL: Abdomen soft, non-tender, nondistended. Normal, active bowel sounds MUSCULOSKELETAL: Extremities without clubbing, cyanosis, or edema. NEURO: Alert & Oriented x4 to person, place, time, situation. Moves all ext x4 Procedures 11/14/16 hemodialysis catheter placement, right internal jugular 12/14 PD cath placement Medications and IVs Current Medications Sodium Chloride 1,000 ml @ 1,000 mls/hr Q1H ONCE IV Last administered on 14:25; Start 11/05/16 at 13:54; Stop 11/05/16 at 14:53; Status DC Sodium Chloride 1,000 ml @ 1,000 mls/hr Q1H ONCE IV Last administered on 15:12; Start 11/05/16 at 13:54; Stop 11/05/16 at 14:53; Status DC Sodium Chloride 100 ml @ 1,000 mls/hr Q6M ONCE IV Last administered on 15:32; Start 11/05/16 at 13:54; Stop 11/05/16 at 13:59; Status DC Vancomycin HCl 1050 mg/Sodium Chloride 260.5 ml @ 250 mls/hr ONCE ONCE IV Last administered on 11/05/16 15:06; Start 11/05/16 at 14:00; Stop 11/05/16 at 15:02; Status DC Piperacillin Sod/ Tazobactam Sod 50 ml @ 100 mls/hr ONCE ONCE IV Last administered on 11/05/16 16:38; Start 11/05/16 at 14:00; Stop 11/05/16 at 14:29 ; Status DC Acetaminophen (Tylenol) 1,000 mg ONCE ONCE PO Last administered on 11/05/16 16:38; Start 11/05/16 at 15:45; Stop 11/05/16 at 15:46; Status DC Abacavir Sulfate (Ziagen) 300 mg BID PO ; Start 11/05/16 at 21:00; Stop at 21:00; Status DC Lamivudine (Epivir) 150 mg BID PO ; Start 11/05/16 at 21:00; Stop 11/05/16 at 21 :00; Status DC Lopinavir/ Ritonavir (Kaletra 200-50 Mg) 1 tab BID PO ; Start 11/05/16 at 21:00 ; Stop 11/05/16 at 21:00; Status DC Pharmacy Profile Note 0 ml @ 0 mls/hr UNSCH OTHER ; Start 11/05/16 at 16:15; Stop 11/08/16 at 09:10; Status DC Piperacillin Sod/ Tazobactam Sod 50 ml @ 100 mls/hr Q8H IV Last administered on 11/09/16 16:35; Start 11/06/16 at 00:00; Stop 11/09/16 at 17:24; Status DC Sodium Chloride 1,000 ml @ 83 mls/hr Q12H3M IV Last administered on 11/09/16 05:17; Start 11/05/16 at 17:00; Stop 11/09/16 at 16:19; Status DC Sodium Chloride (NS Flush) 2 ml UNSCH PRN IV FLUSH FLUSH AFTER USING IV ACCESS ; Start 11/05/16 at 16:15 Sodium Chloride (NS Flush) 2 ml BID IV FLUSH Last administered on 12/14/16 07: 26; Start 11/05/16 at 21:00; Stop 12/14/16 at 10:39; Status DC Acetaminophen (Tylenol) 650 mg Q4H PRN PO TEMP > 100.4 Last administered on 01:10; Start 11/05/16 at 16:15 Ondansetron HCl (Zofran Inj) 4 mg Q6H PRN IVP NAUSEA OR VOMITING Last administered on 12/22/16 21:14; Start 11/05/16 at 16:15 Heparin Sodium (Porcine) (Heparin Inj) 5,000 units Q12H SQ Last administered on 12/08/16 18:16; Start 11/05/16 at 17:00; Status Future Hold Naloxone HCl (Narcan Inj) 0.4 mg UNSCH PRN IV SEE LABEL COMMENTS; Start at 16:15 Senna/Docusate Sodium (Dee-Colace) 1 tab BID PO Last administered on 08:27; Start 11/05/16 at 21:00 Magnesium Hydroxide (Milk Of Magnesia Liq) 30 ml Q12H PRN PO MILD - MODERATE CONSTIPATION; Start 11/05/16 at 16:15 Sennosides (Senokot) 17.2 mg Q12H PRN PO MODERATE - SEVERE CONSTIPATION; Start 11/05/16 at 16:15 Bisacodyl (Dulcolax Supp) 10 mg DAILY PRN RECTAL SEVERE CONSITIPATION; Start at 16:15 Lactulose (Lactulose Liq) 30 ml DAILY PRN PO SEVERE CONSITIPATION; Start at 16:15 Acetaminophen/ Hydrocodone Bitart (Boss 7.5-325 Mg) 1 tab Q4H PRN PO PAIN SCALE 4 TO 10; Start 11/05/16 at 16:15; Stop 12/14/16 at 10:38; Status DC Nystatin (Mycostatin Liq) 5 ml QID SWISH-SWAL Last administered on 11/26/16 21 :39; Start 11/05/16 at 18:00; Stop 11/27/16 at 13:26; Status DC Vancomycin HCl 1000 mg/Sodium Chloride 250 ml @ 250 mls/hr ONCE ONCE IV Last administered on 11/07/16 11:27; Start 11/07/16 at 12:00; Stop 11/07/16 at 12:59 ; Status DC Valacyclovir HCl (Valtrex) 500 mg Q8HR PO Last administered on 11/15/16 20:39 ; Start 11/08/16 at 09:15; Stop 11/15/16 at 23:00; Status DC Sodium Bicarbonate (Sodium Bicarbonate) 650 mg Q12HR PO Last administered on 07:49; Start 11/09/16 at 21:00; Stop 11/16/16 at 16:54; Status DC Ceftriaxone Sodium 2000 mg/ Sodium Chloride 100 ml @ 200 mls/hr Q24H IV Last administered on 11/21/16 15:59; Start 11/09/16 at 18:00; Stop 11/21/16 at 16:39 ; Status DC Metoprolol Tartrate (Lopressor) 12.5 mg Q12HR PO Last administered on 10:02; Start 11/10/16 at 18:00; Stop 11/13/16 at 14:05; Status DC Levofloxacin (Levaquin) 250 mg Q48H PO Last administered on 11/15/16 17:57; Start 11/11/16 at 16:00; Stop 11/16/16 at 10:23; Status DC Azithromycin (Zithromax) 250 mg DAILY PO Last administered on 11/21/16 08:41; Start 11/11/16 at 15:15; Stop 11/21/16 at 16:45; Status DC Sodium Bicarbonate 75 meq/Sodium Chloride 1,075 ml @ 75 mls/hr [id number] IV Last administered on 11/16/16 00:00; Start 11/12/16 at 21:00; Stop 11/16/16 at 06:05; Status DC Sodium Chloride 250 ml @ 15 mls/hr ONCE ONCE IV ; Start 11/13/16 at 06:00; Stop 11/13/16 at 22:39; Status DC Metoprolol Tartrate (Lopressor) 25 mg Q12HR PO Last administered on 11/16/16 07:49; Start 11/13/16 at 21:00; Stop 11/16/16 at 16:54; Status DC Metoprolol Tartrate (Lopressor) 12.5 mg ONCE ONCE PO Last administered on 11/13 16:16; Start 11/13/16 at 14:30; Stop 11/13/16 at 14:31; Status DC Miscellaneous (Pill Splitter) 1 ea UNSCH PRN OTHER SEE LABEL COMMENTS; Start at 14:30 Sodium Chloride 1,000 ml @ 0 mls/hr Q0M PRN IV For Prime & Rinse Back Last administered on 01/03/17 11:10; Start 11/13/16 at 17:02 Heparin Sodium (Porcine) (Heparin Inj) 8,000 units UNSCH PRN IVF WITH DIALYSIS Last administered on 12/31/16 09:59; Start 11/13/16 at 17:15 Sodium Chloride 1,000 ml @ 200 mls/hr Q5H PRN IV WITH DIALYSIS; Start 11/13/16 at 17:02 Sodium Chloride 1,000 ml @ 0 mls/hr Q0M PRN IV WITH DIALYSIS; Start 11/13/16 at 17:02 Mannitol (Mannitol Inj) 12.5 gm UNSCH PRN IV WITH DIALYSIS; Start 11/13/16 at 17:15 Albumin Human (Albumin 25% Inj) 25 gm UNSCH PRN IV WITH DIALYSIS Last administered on 12/31/16 09:58; Start 11/13/16 at 17:15 Sodium Chloride (NS Flush) 5 ml UNSCH PRN IV FLUSH WITH DIALYSIS Last administered on 12/17/16 10:57; Start 11/13/16 at 17:15 Heparin Sodium (Porcine) (Heparin Inj) UNSCH PRN .XX WITH DIALYSIS Last administered on 01/03/17 11:10; Start 11/13/16 at 17:15 Gentamicin Sulfate (Gentamicin (Dialysis) Inj) 20 mg UNSCH PRN IV WITH DIALYSIS Last administered on 01/03/17 11:10; Start 11/13/16 at 17:15 Ondansetron HCl (Zofran Inj) 4 mg UNSCH PRN IV WITH DIALYSIS Last administered on 12/09/16 20:25; Start 11/13/16 at 17:15 Acetaminophen (Tylenol) 650 mg UNSCH PRN PO for headach, pain, temp > 101F Last administered on 01/03/17 21:57; Start 11/13/16 at 17:15 Diphenhydramine HCl (Benadryl) 25 mg UNSCH PRN PO for hives/itching/anaphylaxis ; Start 11/13/16 at 17:15 Nitroglycerin (Nitrostat Sl) 0.4 mg UNSCH PRN SL CHEST PAIN; Start 11/13/16 at 17:15 Clonidine (Catapres) 0.1 mg UNSCH PRN PO for BP > 170/100 X 2 readings Last administered on 12/08/16 13:25; Start 11/13/16 at 17:15 Gelatin (Gelfoam 12 Mm/7 Mm Top) 1 foam UNSCH PRN TOP SEE LABEL COMMENTS; Start 11/13/16 at 17:15 Heparin Sodium (Porcine) (*HEPARIN INJ Periprocedural ONLY) 10,000 units STK- MED ONCE .ROUTE Last administered on 11/14/16 11:29; Start 11/14/16 at 11:26; Stop 11/14/16 at 11:27; Status DC Sodium Chloride (NS Flush) UNSCH PRN IVF SEE PROTOCOL; Start 11/14/16 at 11:45 ; Stop 11/29/16 at 19:51; Status DC Heparin Sodium (Porcine) (Heparin Inj) UNSCH PRN IV FLUSH SEE PROTOCOL Last administered on 11/29/16 10:25; Start 11/14/16 at 11:45; Stop 11/29/16 at 19:51; Status DC Potassium Bicarb/ Potassium Chloride (K-Lyte Cl Eff) 50 meq ONCE ONCE PO Last administered on 11/16/16 06:37; Start 11/16/16 at 06:00; Stop 11/16/16 at 06:02; Status DC Potassium Chloride 100 ml @ 50 mls/hr Q2H IV Last administered on 11/16/16 07 :49; Start 11/16/16 at 06:00; Stop 11/16/16 at 10:04; Status DC Levofloxacin (Levaquin) 250 mg Q24H PO Last administered on 12/07/16 16:24; Start 11/16/16 at 16:00; Stop 12/08/16 at 12:55; Status DC Metoprolol Tartrate (Lopressor) 50 mg Q12HR PO Last administered on 12/02/16 08 :53; Start 11/16/16 at 21:00; Status Future Hold Valacyclovir HCl (Valtrex) 500 mg DAILY PO Last administered on 11/22/16 08:36 ; Start 11/17/16 at 10:45; Stop 11/22/16 at 08:59; Status DC Amlodipine Besylate (Norvasc) 5 mg DAILY PO Last administered on 12/02/16 08:53 ; Start 11/19/16 at 12:00; Status Future Hold Ethambutol HCl (Myambutol) 800 mg DAILY PO Last administered on 12/03/16 14:22 ; Start 11/21/16 at 18:00; Stop 12/03/16 at 16:35; Status DC Clarithromycin (Biaxin) 500 mg Q12HR PO Last administered on 01/04/17 08:27; Start 11/21/16 at 21:00 Acyclovir (Zovirax) 400 mg Q12HR PO Last administered on 12/03/16 14:22; Start 11/23/16 at 12:30; Stop 12/03/16 at 18:16; Status DC Trimethoprim/ Sulfamethoxazole (Bactrim Ds 800-160 Mg) 1 tab MoWeFr@09 PO Last administered on 12/21/16 09:33; Start 11/25/16 at 09:00; Stop 12/22/16 at 14:14 ; Status DC Fluconazole (Diflucan) 200 mg ONCE ONCE PO Last administered on 11/26/16 12:46 ; Start 11/26/16 at 07:45; Stop 11/26/16 at 07:46; Status DC Fluconazole (Diflucan) 100 mg DAILY PO Last administered on 12/09/16 10:19; Start 11/27/16 at 09:00; Stop 12/09/16 at 15:27; Status DC Fentanyl Citrate (fentaNYL INJ) 100 mcg STK-MED ONCE .ROUTE Last administered on 11/29/16 13:50; Start 11/29/16 at 13:50; Stop 11/29/16 at 13:51; Status DC Midazolam HCl (Versed Inj) 2 mg STK-MED ONCE .ROUTE Last administered on 13:50; Start 11/29/16 at 13:50; Stop 11/29/16 at 13:51; Status DC Midazolam HCl (Versed Inj) 2 mg STK-MED ONCE .ROUTE ; Start 11/29/16 at 13:50; Stop 11/29/16 at 13:51; Status DC Fentanyl Citrate (fentaNYL INJ) 100 mcg STK-MED ONCE .ROUTE ; Start 11/29/16 at 13:51; Stop 11/29/16 at 13:52; Status DC Heparin Sodium (Porcine) (*HEPARIN INJ Periprocedural ONLY) 10,000 units STK- MED ONCE .ROUTE Last administered on 11/29/16 14:08; Start 11/29/16 at 14:08; Stop 11/29/16 at 14:09; Status DC Lidocaine/ Epinephrine (Xylocaine-Epi 2%-1:100,000 Inj) 20 ml STK-MED ONCE .ROUTE ; Start 11/29/16 at 14:09; Stop 11/29/16 at 14:10; Status DC Lidocaine/ Epinephrine (Xylocaine-Epi 2%-1:100,000 Inj) 20 ml STK-MED ONCE .ROUTE Last administered on 11/29/16 14:10; Start 11/29/16 at 14:10; Stop at 14:11; Status DC Sodium Chloride (NS Flush) UNSCH PRN IVF SEE PROTOCOL; Start 11/29/16 at 18:15 Heparin Sodium (Porcine) (Heparin Inj) UNSCH PRN IV FLUSH SEE PROTOCOL Last administered on 12/06/16 10:15; Start 11/29/16 at 18:15 Fentanyl Citrate (fentaNYL INJ) 100 mcg STK-MED ONCE .ROUTE Last administered on 12/01/16 13:16; Start 12/01/16 at 13:16; Stop 12/01/16 at 13:17; Status DC Midazolam HCl (Versed Inj) 2 mg STK-MED ONCE .ROUTE Last administered on 13:16; Start 12/01/16 at 13:16; Stop 12/01/16 at 13:17; Status DC Lidocaine HCl (Xylocaine 1% Inj) 20 ml STK-MED ONCE .ROUTE Last administered on 12/01/16 13:45; Start 12/01/16 at 13:45; Stop 12/01/16 at 13:46; Status DC Sodium Bicarbonate 50 ml @ As Directed STK-MED ONCE .ROUTE Last administered on 12/01/16 13:45; Start 12/01/16 at 13:45; Stop 12/01/16 at 13:46; Status DC Lactobacillus Acidophilus (Lactinex) 1 tab Q12HR PO Last administered on 08:26; Start 12/02/16 at 10:00 Pharmacy Profile Note 0 ml @ 0 mls/hr UNSCH OTHER ; Start 12/03/16 at 17:00; Status Cancel Ethambutol HCl (Myambutol) 800 mg DAILY PO Last administered on 01/04/17 08: 26; Start 12/04/16 at 09:00 Ganciclovir Sodium 81 mg/ Sodium Chloride 101.62 ml @ 101.62 mls/hr WITH DIALYSIS IV ; Start 12/04/16 at 09:00; Stop 12/10/16 at 12:45; Status DC Ganciclovir Sodium 81 mg/ Sodium Chloride 101.62 ml @ 101.62 mls/hr ONCE ONCE IV Last administered on 12/03/16 22:38; Start 12/03/16 at 21:00; Stop 12/03/16 at 21:59; Status DC Ganciclovir Sodium 41 mg/ Sodium Chloride 100.82 ml @ 100.82 mls/hr TuThSa IV ; Start 12/27/16 at 14:00; Stop 12/27/16 at 14:00; Status DC Epoetin Abel (Epogen Inj) 10,000 units UNSCH PRN IV WITH DIALYSIS Last administered on 12/31/16 10:00; Start 12/06/16 at 09:30 Levofloxacin (Levaquin) 250 mg Q48H PO Last administered on 12/08/16 18:16; Start 12/08/16 at 16:00; Stop 12/09/16 at 15:27; Status DC Sodium Chloride 250 ml @ 15 mls/hr ONCE ONCE IV Last administered on 10:21; Start 12/08/16 at 17:00; Stop 12/09/16 at 09:39; Status DC Acetaminophen (Tylenol) 650 mg Q4H PRN PO SEE LABEL COMMENTS; Start 12/08/16 at 17:00; Stop 12/09/16 at 16:59; Status DC Diphenhydramine HCl (Benadryl) 25 mg Q4H PRN PO SEE LABEL COMMENTS; Start 12/08 at 17:00; Stop 12/09/16 at 16:59; Status DC Furosemide (Lasix Inj) 20 mg ONCE ONCE IV Last administered on 12/09/16 14:08 ; Start 12/08/16 at 17:00; Stop 12/08/16 at 17:02; Status DC Rifampin (Rifampin) 300 mg Q12HR PO Last administered on 01/04/17 08:27; Start 12/09/16 at 21:00 Ganciclovir Sodium 81 mg/ Sodium Chloride 101.62 ml @ 101.62 mls/hr TuThSa IV Last administered on 12/24/16 15:58; Start 12/10/16 at 12:45; Stop 12/24/16 at 23:00; Status DC Bupivacaine HCl/ Epinephrine Bitart (Sensorcaine-Epinephrine Pf 0.25% Inj) 10 ml ONCE ONCE INFIL ; Start 12/14/16 at 09:45; Stop 12/14/16 at 10:17; Status DC Sodium Chloride (NS Flush) 2 ml UNSCH PRN IV FLUSH FLUSH AFTER USING IV ACCESS ; Start 12/14/16 at 10:45 Sodium Chloride (NS Flush) 2 ml BID IV FLUSH Last administered on 01/04/17 08 :35; Start 12/14/16 at 21:00 Acetaminophen/ Hydrocodone Bitart (Boss 5-325 Mg) 1 tab Q4H PRN PO PAIN SCALE 1 TO 5; Start 12/14/16 at 10:45 Acetaminophen/ Hydrocodone Bitart (Boss 5-325 Mg) 2 tab Q4H PRN PO PAIN SCALE 6 TO 10; Start 12/14/16 at 10:45 Miscellaneous Information (Post-op Orders (for Pharmacy)) STAT ONCE XX Last administered on 12/14/16 10:45; Start 12/14/16 at 10:45; Stop 12/14/16 at 10:46 ; Status DC Miscellaneous Information ALL NURSING DEPARTME... UNSCH PRN .XX SEE LABEL COMMENTS; Start 12/14/16 at 11:30; Stop 12/15/16 at 11:29; Status DC Sodium Biphosphate/ Sodium Phosphate (Fleets Enema (Adult)) 133 ml ONCE ONCE RECTAL Last administered on 12/20/16 09:22; Start 12/20/16 at 09:15; Stop at 09:16; Status DC Influenza Virus Vaccine (Flu (Quadrivalent) Vaccine Inj) 0.5 ml ONCE ONCE IM Last administered on 12/24/16 12:20; Start 12/24/16 at 10:00; Stop 12/24/16 at 10:01; Status DC Naproxen (Naprosyn) 500 mg ONCE ONCE PO Last administered on 12/25/16 01:12; Start 12/25/16 at 01:15; Stop 12/25/16 at 01:16; Status DC Valganciclovir (Valcyte) 450 mg DAILY PO Last administered on 01/02/17 09:39; Start 12/26/16 at 13:45; Stop 01/02/17 at 12:45; Status DC Potassium Chloride (KCl) 40 meq ONCE ONCE PO Last administered on 12/30/16 06 :05; Start 12/30/16 at 05:00; Stop 12/30/16 at 05:07; Status DC Prednisone (Deltasone) 40 mg DAILY PO Last administered on 01/02/17 09:39; Start 12/30/16 at 14:15; Stop 01/02/17 at 14:14; Status DC Prednisone (Deltasone) 40 mg DAILY PO Last administered on 01/04/17 08:26; Start 01/03/17 at 09:00 Valganciclovir (Valcyte) 450 mg EVERY OTHER DAY PO Last administered on 08:26; Start 01/04/17 at 09:00 Acetaminophen (Tylenol Supp) 650 mg ONCE ONCE RECTAL Last administered on t 05:49; Start 01/04/17 at 05:30; Stop 01/04/17 at 05:38; Status DC Side: Right A/P Problem List: (1) Renal failure ICD Code: N19 - Unspecified kidney failure Status: Acute (2) Sepsis ICD Code: A41.9 - Sepsis, unspecified organism Status: Acute (3) UTI (urinary tract infection) ICD Code: N39.0 - Urinary tract infection, site not specified (4) Chronic kidney disease, stage V ICD Code: N18.5 - Chronic kidney disease, stage 5 (5) HIV (human immunodeficiency virus infection) ICD Code: B20 - Human immunodeficiency virus [HIV] disease (6) Anemia ICD Code: D64.9 - Anemia, unspecified (7) Hypertension ICD Code: I10 - Essential (primary) hypertension (8) Medical non-compliance ICD Code: Z91.19 - Patient's noncompliance with other medical treatment and regimen Assessment and Plan A/P AIDS MAC/ CMV infection FUO - noncompliant with HAART for the last 2 months. - Continue Biaxin, Valganciclovir, Ethambutol,Rifampin per infectious disease . -gallium scan negative/ repeated blood cultures negative. -trial of prednisone. - ID following. Acute renal failure superimposed on chronic kidney disease stage V - Nephrology following, remains non-oliguric. -Recent kidney biopsy FSGS, with 2 out of 7 Glomeruli sclerosis - HD per nephrology. -s/p peritoneal cath placement. HIV/AIDS - CD4 count less than 20. Patient admitted to being noncompliant with HAART meds for the last 2 months. He has been counseled. 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 Oral thrush, improved: treated with Diflucan Anemia of chronic disease -s/p PRBC transfusion on 12/31/16 - H/H improved- -on Epogen -Continue to monitor H&H Discharge Planning still with on and off fever. ID following. Problem Qualifiers (1) Renal failure: (2) Sepsis: Neelima Burgess MD Jan 04, 2017 09:24
[2017-01-04 09:59] LABS: HEMATOCRIT 24.4 % (39.0-51.0); MEAN CELL VOLUME 86.5 FL (80.0-100.0); MEAN CORPUSCULAR HEMOGLOBIN 28.2 PG (27.0-34.0); MEAN CORPUSCULAR HGB CONC 32.6 % (32.0-36.0); PLATELET COUNT 131 TH/MM3 (150-450); RED BLOOD COUNT 2.82 MIL/MM3 (4.50-5.90); RED CELL DISTRIBUTION WIDTH 17.9 % (11.6-17.2); WHITE BLOOD COUNT 0.7 TH/MM3 (4.0-11.0)
[2017-01-04 10:03] LABS: HEMO FLAGS AUTO DIFF
[2017-01-04 10:43] LABS: BANDS 20 % (0-6); EOSINOPHILS 2 % (0-4); POLYS (SEG NEUTROPHILS) 48 % (16-70); WBC DIFF SAMPLE 66
[2017-01-04 10:45] LABS: SCAN/DIFF FINAL DIFF MANUAL
[2017-01-04 10:48] LABS: NEUTROPHIL # MANUAL DIFF 0.5 TH/MM3 (1.8-7.7)
--- NOTE | 2017-01-04 11:11 | HHI.NPPN ---
Subjective History of Present Illness 50-year-old male with past medical history of HIV disease for more than 20 years and history of renal stone who came to the hospital with complaint of back pain. The patient has back pain going on for the last 2 months off and on and he came to the emergency department yesterday with worsening pain. Additional Remarks Patient is alert, no SOB, no abd. pain, still has fever off and on. Review of Systems General Constitutional: Fatigue Cardiovascular Cardiac: MIRZA Objective Data Data Vital Signs Date Time Temp Pulse Resp B/P (MAP) Pulse Ox O2 Delivery O2 Flow Rate FiO2 01/04/17 08:00 99.0 105 16 107/68 (81) 98 01/04/17 06:41 100.4 01/04/17 04:42 Room Air 01/04/17 04:10 102.8 01/04/17 04:00 102.8 140 24 129/90 (103) 94 01/04/17 00:00 100.4 108 19 120/77 (91) 98 01/04/17 00:00 Room Air 01/03/17 20:30 101 01/03/17 20:00 102.8 121 22 156/74 (101) 94 01/03/17 20:00 Room Air 01/03/17 16:02 102.8 125 19 128/75 (92) 99 -: 01/04/17 0920 Physical Exam General Appearance: No Acute Distress, Comfortable Eyes Eye Exam: Pupils Equal Throat Throat Exam: Oral Mucosa [place] & Moist Pulmonary Resp Exam: Breath Sounds Equal, No Distress, Rhonchi, Decreased Bases Cardiology CV Exam: Regular, Normal Sinus Rhythm Gastrointestinal/Abdomen GI Exam: Soft, Non-Tender, Bowel Sounds Present Extremeties Extremities Exam: No Edema Neurologic Neuro Exam: Alert, Awake, Oriented Psychiatric Psych Exam: Appropriate Responses Assessment/Plan Assessment Summary: MIKE/Acute Renal Failure Problem List: (1) Renal failure ICD Codes: N19 - Unspecified kidney failure Status: Acute (2) Sepsis ICD Codes: A41.9 - Sepsis, unspecified organism Status: Acute (3) Open wound of scrotum ICD Codes: S31.30XA - Unspecified open wound of scrotum and testes, initial encounter Status: Acute Plan c/o blurry vision left eye Remain non oliguric. SPEP was negative. Complements normal, other serology also negative. BP is better, on Metoprolol to 50 mg BID. If renal function will not improve, will consider Renal Biopsy once infection is controlled. Fever pattern is better, ID is following. Now on Bactrim, Acyclovir, Clarithromycin and Ethambutol. No improvement in renal function. Possibly has End stage renal disease. Got PermCath. 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 No need to repeat the renal Biopsy as clinically he is showing no improvement, and the with advance HIV , the treatment options are limited, cannot be given immunosuppressive drugs. I discussed this in detail with patient. Now he change his mind and want to go for PD from ID stand point. He understand increase risk of infection due to advance HIV. Has PD catheter done. Now on Valganciclovir, ID following. Gallium scan is negative. HD to continue TTS. On Epogen , follow Hgb. Transfuse as needed. WBC decreased, now 0.7, possibly related to Valcyte. ID is following, Valcyte dose decreased. Has FUO, further recommendation as per ID. HD will be in AM. Problem Qualifiers (1) Renal failure: (2) Sepsis: Kwadwo Shah MD Jan 04, 2017 11:11
--- NOTE | 2017-01-04 13:51 | HHI.IDPN ---
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, on HD; S/P PD cath Notes reviewed Temps worse last 24-48 hours He has no new complaints Voiding ok No diarrhea No respiratory complaint Vision improving Had HD yesterday No abdominal pain, no N/V No rash or itching WBC continues to decrease Nothing new on C/S Antibiotics Rifampin Biaxin Ethambutol Valcyte Lines permacath Past Medical History HIV, for 20+years, noncompliant with medications for the past 2 months Kidney stones Allergies: Coded Allergies: No Known Allergies (Unverified , 11/05/16) Objective . Vital Signs Date Time Temp Pulse Resp B/P (MAP) Pulse Ox O2 Delivery O2 Flow Rate FiO2 01/04/17 12:00 97.5 80 16 142/93 (109) 100 01/04/17 08:00 101 01/04/17 08:00 99.0 105 16 107/68 (81) 98 01/04/17 06:41 100.4 01/04/17 04:42 Room Air 01/04/17 04:10 102.8 01/04/17 04:00 102.8 140 24 129/90 (103) 94 01/04/17 00:00 100.4 108 19 120/77 (91) 98 01/04/17 00:00 Room Air 01/03/17 20:30 101 01/03/17 20:00 102.8 121 22 156/74 (101) 94 01/03/17 20:00 Room Air 01/03/17 16:02 102.8 125 19 128/75 (92) 99 . Laboratory Tests Test 01/04/17 09:20 White Blood Count 0.7 TH/MM3 Red Blood Count 2.82 MIL/MM3 Hemoglobin 7.9 GM/DL Hematocrit 24.4 % Mean Corpuscular Volume 86.5 FL Mean Corpuscular Hemoglobin 28.2 PG Mean Corpuscular Hemoglobin Concent 32.6 % Red Cell Distribution Width 17.9 % Platelet Count 131 TH/MM3 Mean Platelet Volume 9.3 FL CBC Comment AUTO DIFF Differential Total Cells Counted 66 Neutrophils % (Manual) 48 % Band Neutrophils % 20 % Lymphocytes % 21 % Monocytes % 9 % Eosinophils % 2 % Neutrophils # (Manual) 0.5 TH/MM3 Differential Comment FINAL DIFF MANUAL Red Cell Morphology Comment NORMAL Imaging Last Impressions Renal Biopsy CT 12/01/16 0600 Signed Impressions: Service Date/Time: November 14:17 - CONCLUSION: Uncomplicated CT guided biopsy. Alexis Adhikari MD Central Venous Line 11/29/16 0000 Signed Impressions: Service Date/Time: Tuesday, November 29, 2016 00:00 - CONCLUSION: Uncomplicated catheter removal. Solitario Diaz MD Catheter Placement X-Ray 11/29/16 0000 Signed Impressions: Service Date/Time: Tuesday, November 29, 2016 13:58 - CONCLUSION: Uncomplicated PermaCath placement as above. Solitario Diaz MD Tumor Localization 11/14/16 0000 Signed Impressions: Service Date/Time: Monday, November 14, 2016 11:38 - CONCLUSION: Negative scan Solitario Diaz MD Chest X-Ray 11/13/16 0000 Signed Impressions: Service Date/Time: Sunday, November 13, 2016 16:02 - CONCLUSION: No acute cardiopulmonary disease. Quincy Medellin MD Renal Ultrasound 11/05/16 0000 Signed Impressions: Service Date/Time: Saturday, November 05, 2016 19:17 - CONCLUSION: Diffusely echogenic kidneys indicating medical renal disease. Dorian Murry MD Abdomen/Pelvis CT 11/05/16 0000 Signed Impressions: Service Date/Time: Saturday, November 05, 2016 17:19 - CONCLUSION: 1. 4 mm calculus in the right renal pelvis/ureteropelvic junction with mild adjacent perinephric/periureteral stranding. No evidence of hydronephrosis. 2. 1 cm round hypodensity in the anterior right mid kidney statistically most likely to represent a cyst. 3. 3.7 cm hypodensity in the right lobe of the liver air the dome of the diaphragm. This finding is nonspecific on noncontrast CT. The most likely etiologies include hemangioma and cyst. It could be further evaluated with ultrasound nonemergent followup MRI of the abdomen. 4. Mild dilated proximal right common iliac artery. Dorian Murry MD Physical Exam GENERAL: awake and alert, not in respiratory distress. SKIN: Warm and dry. Dry skin EYES: [place] conjunctiva. No petechia or hemorrhage. No scleral icterus. No injection or drainage. EARS, NOSE AND THROAT: Nose without bleeding or purulent nasal discharge. Mucous membranes pink and moist. White coating on tongue NECK: Trachea midline. Supple and not tender, no meningeal signs CARDIOVASCULAR: Regular rate and rhythm. No murmurs, rubs or gallops heard RESPIRATORY: Clear to auscultation. Breath sounds equal bilaterally. No rales , wheezing or rhonchi ABDOMEN: Soft, not tender, not distended, dry dressing over cath. Bowel sounds present and normoactive. No guarding. No rebound. No organomegaly. Has oblong brown non tender nodule on R lateral groin (chronic been there for years, not getting bigger) EXTREMITIES: No clubbing, cyanosis, or edema. No joint effusion, has good ROM. No calf tenderness. Well perfused and warm. BUTTOCK: Ulcers healed NEUROLOGICAL: Awake alert Non-focal PSYCHIATRIC: Normal affect, calm and cooperative. LINE: Permacath in place R IJ , No evidence of infection Assessment & Plan Remarks IMPRESSION Fevers, worse now, and now has worsening neutropenia - ?due to meds Valcyte - at risk for new infection because of neutropenia Fevers, on initial presentation better - likely due to AFB in [place], likely LULU FUO - work-up for new infection negative - has been on RX for identified infection: MAc and CMV - ?drug: ?ganciclovir, rifampin; bactrim has been there since 11/25, stopped - gallium scan is negative - all repeat BC are negative - persistent, ?due to HIV Renal failure, on HD HIV, end stge AIDS, noncompliance 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
--- NOTE | 2017-01-04 15:56 | RADRPT ---
EXAM DATE/TIME: 01/04/2017 14:55 [facility] COMPARISON: CHEST PA & LAT, November 13, 2016, 16:02. INDICATIONS : Short of breath and fever since yesterday. MEDICAL HISTORY : HIV. Renal calculi SURGICAL HISTORY : None. ENCOUNTER: Subsequent ACUITY: 2 days PAIN SCORE: 0/10 LOCATION: Bilateral chest FINDINGS: PA and lateral views of the chest demonstrate the lungs to be symmetrically aerated without evidence of mass, infiltrate or effusion. Nipple shadows are seen bilaterally. The cardiomediastinal contours are unremarkable. Osseous structures are intact. A right-sided permacath is seen. CONCLUSION: No acute disease. Yoni Rhoades Jr., MD on January 04, 2017 at 15:52 Board Certified Radiologist. This report was verified electronically.
[2017-01-04] MEDS ORDERED: FILGRASTIM 480 MCG/1.6 ML VIAL SQ ONE (16:00)
[2017-01-04] MEDS: FLUCONAZOLE 400 MG PREMIX BAG 200 ML IV SCH (16:38)
[2017-01-04] MEDS: CEFEPIME INJ 2,000 MG in SODIUM CHLORIDE 0.9% INJ 100 ML IV SCH (16:38)
[2017-01-05] VITALS: BP 149/97; PULSE 72; RESP 16; TEMP 97.3; O2SAT 99
[2017-01-05 04:00] VITALS: BP 129/78; PULSE 77; RESP 16; TEMP 97.8; O2SAT 100
[2017-01-05] MEDS: CEFEPIME INJ 2,000 MG in SODIUM CHLORIDE 0.9% INJ 100 ML IV SCH ×2 (05:20→18:56)
[2017-01-05 07:32] LABS: HEMATOCRIT 21.9 % (39.0-51.0); MEAN CELL VOLUME 86.1 FL (80.0-100.0); MEAN CORPUSCULAR HEMOGLOBIN 28.3 PG (27.0-34.0); MEAN CORPUSCULAR HGB CONC 32.8 % (32.0-36.0); PLATELET COUNT 112 TH/MM3 (150-450); RED BLOOD COUNT 2.54 MIL/MM3 (4.50-5.90); RED CELL DISTRIBUTION WIDTH 17.7 % (11.6-17.2); WHITE BLOOD COUNT 0.6 TH/MM3 (4.0-11.0)
[2017-01-05 07:47] LABS: HEMO FLAGS AUTO DIFF
[2017-01-05 08:00] VITALS: BP 136/86; PULSE 75; RESP 16; TEMP 97.2; O2SAT 100
[2017-01-05] MEDS: ETHAMBUTOL HCL 400 MG TAB PO SCH (08:52)
[2017-01-05] MEDS: RIFAMPIN 150 MG CAP PO SCH ×2 (08:52→20:12)
[2017-01-05] MEDS: CLARITHROMYCIN 500 MG TAB PO SCH ×2 (08:52→20:13)
[2017-01-05] MEDS: LACTOBACILLUS ACIDOPHILUS TAB PO SCH ×2 (08:52→20:14)
[2017-01-05] MEDS: DOCUSATE SODIUM 50 MG/SENNA 8.6 MG TAB PO SCH ×2 (08:52→20:12)
[2017-01-05] MEDS: SODIUM CHLORIDE 0.9% FLUSH 10 ML FLUSH IV FLUSH SCH ×2 (08:52→20:12)
[2017-01-05 08:53] LABS: BANDS 12 % (0-6); BASOPHILS 1 % (0-2); POLYS (SEG NEUTROPHILS) 60 % (16-70); WBC DIFF SAMPLE 100
[2017-01-05 08:57] VITALS: PULSE 70
[2017-01-05 08:59] LABS: NEUTROPHIL # MANUAL DIFF 0.4 TH/MM3 (1.8-7.7); OVALOCYTES 1+ (NORMAL); TOXIC GRANULATION 2+ (NORMAL)
[2017-01-05 09:00] LABS: PLATELET ESTIMATE SMEAR LOW (NORMAL); PLATELET MORPHOLOGY ENLARGED (NORMAL); SCAN/DIFF FINAL DIFF MANUAL; TEARDROP RBCS 1+ (NORMAL)
--- NOTE | 2017-01-05 09:15 | HHI.PR ---
Subjective Remarks Follow-up visit HIV, end-stage AIDS, ESRD on HD. Patient seen and examined today. Laying in bed. Reports he is doing "so-so." States his eating what he can. Continues to be on hemodialysis. Afebrile this morning. Denies pain or discomfort. Reports stool is "applesauce" consistency. Denies SOB/ dyspnea. Denies chest pain, palpitations, headaches, dizziness. Denies fevers, chills, n/ v/d. Objective Vitals Vital Signs Date Time Temp Pulse Resp B/P (MAP) Pulse Ox O2 Delivery O2 Flow Rate FiO2 01/05/17 04:00 97.8 77 16 129/78 (95) 100 01/05/17 00:00 97.3 72 16 149/97 (114) 99 01/04/17 20:45 150/82 (104) 01/04/17 20:00 86 01/04/17 20:00 97.1 68 16 152/93 (112) 100 01/04/17 16:00 97.4 83 16 119/75 (90) 100 01/04/17 12:00 97.5 80 16 142/93 (109) 100 I/O 01/04/17 01/04/17 01/04/17 01/05/17 01/05/17 01/05/17 07:00 15:00 23:00 07:00 15:00 23:00 Intake Total 520 ml 300 ml 340 ml Output Total 200 ml Balance 320 ml 300 ml 340 ml Intake Oral 520 ml 240 ml IV Total 300 ml 100 ml Output Urine Total 200 ml # Voids 1 # Bowel Movements 3 2 2 Result Diagram: 01/05/17 0520 Imaging Last Impressions Chest X-Ray 01/04/17 0000 Signed Impressions: Service Date/Time: Wednesday, January 04, 2017 14:55 - CONCLUSION: No acute disease. Yoni Rhoades Jr., MD Gallium Scan Nuclear Medicine 12/19/16 0000 Signed Impressions: Service Date/Time: Monday, December 19, 2016 13:19 - CONCLUSION: Negative for occult inflammatory process. Enzo Isbell MD FACR Upper Extremity Ultrasound 12/07/16 0000 Signed Impressions: Service Date/Time: Wednesday, December 07, 2016 10:11 - CONCLUSION: Venous mapping as above. Enzo Isbell MD FACR Renal Biopsy CT 12/01/16 0600 Signed Impressions: Service Date/Time: November 14:17 - CONCLUSION: Uncomplicated CT guided biopsy. Alexis Adhikari MD Central Venous Line 11/29/16 0000 Signed Impressions: Service Date/Time: Tuesday, November 29, 2016 00:00 - CONCLUSION: Uncomplicated catheter removal. Solitario Diaz MD Catheter Placement X-Ray 11/29/16 0000 Signed Impressions: Service Date/Time: Tuesday, November 29, 2016 13:58 - CONCLUSION: Uncomplicated PermaCath placement as above. Solitario Diaz MD Tumor Localization 11/14/16 0000 Signed Impressions: Service Date/Time: Monday, November 14, 2016 11:38 - CONCLUSION: Negative scan Solitario Diaz MD Renal Ultrasound 11/05/16 0000 Signed Impressions: Service Date/Time: Saturday, November 05, 2016 19:17 - CONCLUSION: Diffusely echogenic kidneys indicating medical renal disease. Dorian Murry MD Abdomen/Pelvis CT 11/05/16 0000 Signed Impressions: Service Date/Time: Saturday, November 05, 2016 17:19 - CONCLUSION: 1. 4 mm calculus in the right renal pelvis/ureteropelvic junction with mild adjacent perinephric/periureteral stranding. No evidence of hydronephrosis. 2. 1 cm round hypodensity in the anterior right mid kidney statistically most likely to represent a cyst. 3. 3.7 cm hypodensity in the right lobe of the liver air the dome of the diaphragm. This finding is nonspecific on noncontrast CT. The most likely etiologies include hemangioma and cyst. It could be further evaluated with ultrasound nonemergent followup MRI of the abdomen. 4. Mild dilated proximal right common iliac artery. Dorian Murry MD Objective Remarks GENERAL: This is a well-nourished, well-developed patient, in no apparent distress. SKIN: Warm and dry. Dee Anal area wound healing, dry, pink discoloration. HEENT: Normocephalic. Pupils equal round and reactive. Nose without bleeding. Airway patent. NECK: Trachea midline.Supple. Right SC Perma-Cath CARDIOVASCULAR: Regular rate and rhythm without murmurs, gallops, or rubs. RESPIRATORY: Clear to auscultation. Breath sounds equal bilaterally. No wheezes , rales, or rhonchi. GASTROINTESTINAL: Abdomen soft, non-tender, nondistended. Bowel Sounds normoactive x4. MUSCULOSKELETAL: Extremities without clubbing, cyanosis, or edema. NEUROLOGICAL: Awake and alert. Oriented to time, place, person. No focal neuro deficit. Moves all extremities. Normal speech. Procedures 11/14/16 hemodialysis catheter placement, right internal jugular 12/14 PD cath placement Side: Right A/P Problem List: (1) Renal failure ICD Code: N19 - Unspecified kidney failure Status: Acute (2) Sepsis ICD Code: A41.9 - Sepsis, unspecified organism Status: Acute (3) UTI (urinary tract infection) ICD Code: N39.0 - Urinary tract infection, site not specified (4) Chronic kidney disease, stage V ICD Code: N18.5 - Chronic kidney disease, stage 5 (5) HIV (human immunodeficiency virus infection) ICD Code: B20 - Human immunodeficiency virus [HIV] disease (6) Anemia ICD Code: D64.9 - Anemia, unspecified (7) Hypertension ICD Code: I10 - Essential (primary) hypertension (8) Medical non-compliance ICD Code: Z91.19 - Patient's noncompliance with other medical treatment and regimen Assessment and Plan 51 yo male with PMHX of HIV who follows with Dr. Samuels as outpatient last seen 6 months ago who admits to being noncompliant with his HIV medications for the past 2 months and presents to [facility] ED with complaints of severe buttock pain secondary to multiple buttock and perirectal wounds for the past two months. AIDS MAC/ CMV infection FUO Fevers - noncompliant with HAART for the last 2 months. - Continue Biaxin, now on Valganciclovir, Ethambutol, Rifampin per infectious disease . - Gallium scan negative/ repeated blood cultures negative. - trial of prednisone. - ID following, fevers likely due to AFB and blood cultures, likely LULU. - Cefepime 2000 mg every 12 hours, fluconazole 400 mg every 24 hours - Patient with end-stage AIDS, may benefit with palliative consult Neutropenia - neupogen shot was given yesterday - Will give another Neupogen shot. Repeat labs in the morning - Hematology consult for further evaluation Acute renal failure superimposed on chronic kidney disease stage V: Nephrology following, remains non-oliguric. SPEP, serology negative. - Creatinine not improving, per Nephro if no improvement a renal biopsy will be done. - Hemodialysis per nephrology. HD TTHS - Vas-cath to be changed to Permacath due to poor flow - Renal biopsy FSGS, with 2 out of 7 glomeruli sclerosis - Limited options secondary to HIV, AIDS HIV/AIDS: CD4 count less than 20. Patient admitted to being noncompliant with HAART meds for the last 2 months. - He has been counseled. 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 Full code Discussed with patient, nursing, Dr. Shaver Discharge Planning Continue to have on and off fevers. ID and nephrology following. Problem Qualifiers (1) Renal failure: (2) Sepsis: Pari Tafoya Jan 05, 2017 09:15
[2017-01-05] MEDS: GENTAMICIN SULFATE (DIALYSIS USE ONLY) 20 MG/2 ML VIAL IV PRN (11:54)
[2017-01-05] MEDS: EPOETIN ALFA 10,000 UNITS/ML VIAL IV PRN (11:54)
[2017-01-05] MEDS: HEPARIN SODIUM - IV 10,000 UNITS/10 ML VIAL PRN (11:54)
--- NOTE | 2017-01-05 14:03 | HHI.IDPN ---
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, on HD; S/P PD cath Notes reviewed Temps better overnight He has no new complaints WBC continues to decrease Last time he got Valcyte was 01/02 Got neupogen yesterday, and will get today Voiding ok No diarrhea No respiratory complaint Vision improving Had HD today No abdominal pain, no N/V No rash or itching UA ok CXR clear BC negative so far Antibiotics Rifampin Biaxin Ethambutol Lines permacath Past Medical History HIV, for 20+years, noncompliant with medications for the past 2 months Kidney stones Allergies: Coded Allergies: No Known Allergies (Unverified , 11/05/16) Objective . Vital Signs Date Time Temp Pulse Resp B/P (MAP) Pulse Ox O2 Delivery O2 Flow Rate FiO2 01/05/17 08:57 70 01/05/17 08:57 Room Air 01/05/17 08:00 97.2 75 16 136/86 (103) 100 01/05/17 04:00 97.8 77 16 129/78 (95) 100 01/05/17 00:00 97.3 72 16 149/97 (114) 99 01/04/17 20:45 150/82 (104) 01/04/17 20:00 86 01/04/17 20:00 97.1 68 16 152/93 (112) 100 01/04/17 16:00 97.4 83 16 119/75 (90) 100 01/05/17 01/05/17 01/06/17 15:00 23:00 07:00 Output Total 1000 ml Balance -1000 ml Hemodialysis 1000 ml . Laboratory Tests Test 01/04/17 09:20 01/05/17 05:20 White Blood Count 0.7 TH/MM3 0.6 TH/MM3 Red Blood Count 2.82 MIL/MM3 2.54 MIL/MM3 Hemoglobin 7.9 GM/DL 7.2 GM/DL Hematocrit 24.4 % 21.9 % Mean Corpuscular Volume 86.5 FL 86.1 FL Mean Corpuscular Hemoglobin 28.2 PG 28.3 PG Mean Corpuscular Hemoglobin Concent 32.6 % 32.8 % Red Cell Distribution Width 17.9 % 17.7 % Platelet Count 131 TH/MM3 112 TH/MM3 Mean Platelet Volume 9.3 FL 9.4 FL CBC Comment AUTO DIFF AUTO DIFF Differential Total Cells Counted 66 100 Neutrophils % (Manual) 48 % 60 % Band Neutrophils % 20 % 12 % Lymphocytes % 21 % 14 % Monocytes % 9 % 13 % Eosinophils % 2 % Neutrophils # (Manual) 0.5 TH/MM3 0.4 TH/MM3 Differential Comment FINAL DIFF MANUAL FINAL DIFF MANUAL Red Cell Morphology Comment NORMAL Basophils % 1 % Toxic Granulation 2+ Platelet Estimate LOW Platelet Morphology Comment ENLARGED Tear Drop Cells 1+ Ovalocytes 1+ Microbiology Date/Time Source Procedure Growth Status 01/04/17 15:39 Blood Peripheral Aerobic Blood Culture - Preliminary NO GROWTH IN 1 DAY Resulted 01/04/17 15:39 Blood Peripheral Anaerobic Blood Culture - Preliminary NO GROWTH IN 1 DAY Resulted 01/04/17 15:30 Blood Peripheral Aerobic Blood Culture - Preliminary NO GROWTH IN 1 DAY Resulted 01/04/17 15:30 Blood Peripheral Anaerobic Blood Culture - Preliminary NO GROWTH IN 1 DAY Resulted Imaging Last Impressions Renal Biopsy CT 12/01/16 0600 Signed Impressions: Service Date/Time: November 14:17 - CONCLUSION: Uncomplicated CT guided biopsy. Alexis Adhikari MD Central Venous Line 11/29/16 0000 Signed Impressions: Service Date/Time: Tuesday, November 29, 2016 00:00 - CONCLUSION: Uncomplicated catheter removal. Solitario Diaz MD Catheter Placement X-Ray 11/29/16 0000 Signed Impressions: Service Date/Time: Tuesday, November 29, 2016 13:58 - CONCLUSION: Uncomplicated PermaCath placement as above. Solitario Diaz MD Tumor Localization 11/14/16 0000 Signed Impressions: Service Date/Time: Monday, November 14, 2016 11:38 - CONCLUSION: Negative scan Solitario Diaz MD Chest X-Ray 11/13/16 0000 Signed Impressions: Service Date/Time: Sunday, November 13, 2016 16:02 - CONCLUSION: No acute cardiopulmonary disease. Quincy Medellin MD Renal Ultrasound 11/05/16 0000 Signed Impressions: Service Date/Time: Saturday, November 05, 2016 19:17 - CONCLUSION: Diffusely echogenic kidneys indicating medical renal disease. Dorian Murry MD Abdomen/Pelvis CT 11/05/16 0000 Signed Impressions: Service Date/Time: Saturday, November 05, 2016 17:19 - CONCLUSION: 1. 4 mm calculus in the right renal pelvis/ureteropelvic junction with mild adjacent perinephric/periureteral stranding. No evidence of hydronephrosis. 2. 1 cm round hypodensity in the anterior right mid kidney statistically most likely to represent a cyst. 3. 3.7 cm hypodensity in the right lobe of the liver air the dome of the diaphragm. This finding is nonspecific on noncontrast CT. The most likely etiologies include hemangioma and cyst. It could be further evaluated with ultrasound nonemergent followup MRI of the abdomen. 4. Mild dilated proximal right common iliac artery. Dorian Murry MD Physical Exam GENERAL: awake and alert, not in respiratory distress. SKIN: Warm and dry. Dry skin EYES: [place] conjunctiva. No petechia or hemorrhage. No scleral icterus. No injection or drainage. EARS, NOSE AND THROAT: Nose without bleeding or purulent nasal discharge. Mucous membranes pink and moist. White coating on tongue NECK: Trachea midline. Supple and not tender, no meningeal signs CARDIOVASCULAR: Regular rate and rhythm. No murmurs, rubs or gallops heard RESPIRATORY: Clear to auscultation. Breath sounds equal bilaterally. No rales , wheezing or rhonchi ABDOMEN: Soft, not tender, not distended, dry dressing over cath. Bowel sounds present and normoactive. No guarding. No rebound. No organomegaly. Has oblong brown non tender nodule on R lateral groin (chronic been there for years, not getting bigger) EXTREMITIES: No clubbing, cyanosis, or edema. No joint effusion, has good ROM. No calf tenderness. Well perfused and warm. BUTTOCK: Ulcers healed NEUROLOGICAL: Awake alert Non-focal PSYCHIATRIC: Normal affect, calm and cooperative. LINE: Permacath in place R IJ , No evidence of infection Assessment & Plan Remarks IMPRESSION Fevers, worse now, and now has worsening neutropenia - ?due to meds Valcyte - at risk for new infection because of neutropenia Fevers, on initial presentation better - likely due to AFB in [place], likely LULU FUO - work-up for new infection negative - has been on RX for identified infection: MAc and CMV - ?drug: ?ganciclovir, rifampin; bactrim has been there since 9/1, stopped - gallium scan is negative - all repeat BC are negative - persistent, ?due to HIV Renal failure, on HD HIV, end stge AIDS, noncompliance 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
--- NOTE | 2017-01-05 15:52 | HHI.NPPN ---
Subjective History of Present Illness 50-year-old male with past medical history of HIV disease for more than 20 years and history of renal stone who came to the hospital with complaint of back pain. The patient has back pain going on for the last 2 months off and on and he came to the emergency department yesterday with worsening pain. Additional Remarks Patient is alert, no SOB, no abd. pain, seen in AM during HD. Now afebrile for last 24 hrs. Review of Systems General Constitutional: Fatigue Cardiovascular Cardiac: MIRZA Objective Data Data 01/05/17 01/06/17 18:59 06:59 Output Total 1000 ml Balance -1000 ml Hemodialysis 1000 ml Vital Signs Date Time Temp Pulse Resp B/P (MAP) Pulse Ox O2 Delivery O2 Flow Rate FiO2 01/05/17 08:57 70 01/05/17 08:57 Room Air 01/05/17 08:00 97.2 75 16 136/86 (103) 100 01/05/17 04:00 97.8 77 16 129/78 (95) 100 01/05/17 00:00 97.3 72 16 149/97 (114) 99 01/04/17 20:45 150/82 (104) 01/04/17 20:00 86 01/04/17 20:00 97.1 68 16 152/93 (112) 100 01/04/17 16:00 97.4 83 16 119/75 (90) 100 -: 01/05/17 0520 Physical Exam General Appearance: No Acute Distress, Comfortable Eyes Eye Exam: Pupils Equal Throat Throat Exam: Oral Mucosa [place] & Moist Pulmonary Resp Exam: Breath Sounds Equal, No Distress, Rhonchi, Decreased Bases Cardiology CV Exam: Regular, Normal Sinus Rhythm Gastrointestinal/Abdomen GI Exam: Soft, Non-Tender, Bowel Sounds Present Extremeties Extremities Exam: No Edema Neurologic Neuro Exam: Alert, Awake, Oriented Psychiatric Psych Exam: Appropriate Responses Assessment/Plan Assessment Summary: MIKE/Acute Renal Failure Problem List: (1) Renal failure ICD Codes: N19 - Unspecified kidney failure Status: Acute (2) Sepsis ICD Codes: A41.9 - Sepsis, unspecified organism Status: Acute (3) Open wound of scrotum ICD Codes: S31.30XA - Unspecified open wound of scrotum and testes, initial encounter Status: Acute Plan c/o blurry vision left eye Remain non oliguric. SPEP was negative. Complements normal, other serology also negative. BP is better, on Metoprolol to 50 mg BID. If renal function will not improve, will consider Renal Biopsy once infection is controlled. Fever pattern is better, ID is following. Now on Bactrim, Acyclovir, Clarithromycin and Ethambutol. No improvement in renal function. Possibly has End stage renal disease. Got PermCath. 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 No need to repeat the renal Biopsy as clinically he is showing no improvement, and the with advance HIV , the treatment options are limited, cannot be given immunosuppressive drugs. He understand increase risk of infection due to advance HIV. Has PD catheter done. Now on Valganciclovir, ID following. Gallium scan is negative. HD to continue TTS. On Epogen , follow Hgb. Transfuse as needed. WBC decreased, now 0.7, possibly related to Valcyte. ID is following, Valcyte dose decreased. Has FUO, further recommendation as per ID. HD now, removing minimal fluid. BP is stable and now afebrile. Problem Qualifiers (1) Renal failure: (2) Sepsis: Kwadwo Shah MD Jan 05, 2017 15:51
[2017-01-05 16:00] VITALS: BP 140/82; PULSE 105; RESP 16; TEMP 100.8; O2SAT 100
[2017-01-05] MEDS ORDERED: FILGRASTIM 480 MCG/1.6 ML VIAL SQ ONE (16:00)
[2017-01-05] MEDS: FLUCONAZOLE 400 MG PREMIX BAG 200 ML IV SCH (17:59)
[2017-01-05 20:00] VITALS: BP 119/76; PULSE 106; RESP 16; TEMP 101.4; O2SAT 100
[2017-01-05] MEDS: ACETAMINOPHEN 325 MG TAB PO PRN (20:12)
[2017-01-06] VITALS (7 sets, daily range): BP systolic 123–154; BP diastolic 74–90; PULSE 86–110; RESP 16–20; TEMP 98.5–102.8; O2SAT 96–100
[2017-01-06] MEDS: CEFEPIME INJ 2,000 MG in SODIUM CHLORIDE 0.9% INJ 100 ML IV SCH (04:18)
[2017-01-06 07:16] LABS: HEMATOCRIT 21.8 % (39.0-51.0); MEAN CELL VOLUME 86.6 FL (80.0-100.0); MEAN CORPUSCULAR HGB CONC 32.3 % (32.0-36.0); PLATELET COUNT 110 TH/MM3 (150-450); RED BLOOD COUNT 2.51 MIL/MM3 (4.50-5.90); RED CELL DISTRIBUTION WIDTH 17.9 % (11.6-17.2); WHITE BLOOD COUNT 0.5 TH/MM3 (4.0-11.0)
[2017-01-06 07:23] LABS: REVIEW FLAG FINAL
[2017-01-06] MEDS: RIFAMPIN 150 MG CAP PO SCH ×3 (09:00→20:01)
[2017-01-06] MEDS: LACTOBACILLUS ACIDOPHILUS TAB PO SCH ×3 (09:00→20:00)
[2017-01-06] MEDS: CLARITHROMYCIN 500 MG TAB PO SCH ×3 (09:00→20:01)
[2017-01-06] MEDS: DOCUSATE SODIUM 50 MG/SENNA 8.6 MG TAB PO SCH ×2 (09:32→20:01)
[2017-01-06] MEDS: ETHAMBUTOL HCL 400 MG TAB PO SCH (09:32)
[2017-01-06] MEDS: SODIUM CHLORIDE 0.9% FLUSH 10 ML FLUSH IV FLUSH SCH ×2 (09:33→20:01)
--- NOTE | 2017-01-06 10:40 | HHI.NPPN ---
Subjective History of Present Illness 50-year-old male with past medical history of HIV disease for more than 20 years and history of renal stone who came to the hospital with complaint of back pain. The patient has back pain going on for the last 2 months off and on and he came to the emergency department yesterday with worsening pain. Additional Remarks Patient is alert, no SOB, no abd. pain, doing better. Review of Systems General Constitutional: Fatigue Cardiovascular Cardiac: MIRZA Objective Data Data 01/06/17 01/07/17 19:00 07:00 Intake Total 1 ml Balance 1 ml IV Total 1 ml Vital Signs Date Time Temp Pulse Resp B/P (MAP) Pulse Ox O2 Delivery O2 Flow Rate FiO2 01/06/17 09:36 Room Air 01/06/17 08:00 99.3 107 20 152/90 (110) 99 01/06/17 04:00 98.5 86 20 130/74 (92) 98 01/06/17 00:00 101.9 108 16 123/76 (92) 100 01/05/17 20:00 101.4 106 16 119/76 (90) 100 01/05/17 16:00 100.8 105 16 140/82 (101) 100 -: 01/06/17 0604 01/06/17 0604 Physical Exam General Appearance: No Acute Distress, Comfortable Eyes Eye Exam: Pupils Equal Throat Throat Exam: Oral Mucosa [place] & Moist Pulmonary Resp Exam: Breath Sounds Equal, No Distress, Rhonchi, Decreased Bases Cardiology CV Exam: Regular, Normal Sinus Rhythm Gastrointestinal/Abdomen GI Exam: Soft, Non-Tender, Bowel Sounds Present Extremeties Extremities Exam: No Edema Neurologic Neuro Exam: Alert, Awake, Oriented Psychiatric Psych Exam: Appropriate Responses Assessment/Plan Assessment Summary: MIKE/Acute Renal Failure Problem List: (1) Renal failure ICD Codes: N19 - Unspecified kidney failure Status: Acute (2) Sepsis ICD Codes: A41.9 - Sepsis, unspecified organism Status: Acute (3) Open wound of scrotum ICD Codes: S31.30XA - Unspecified open wound of scrotum and testes, initial encounter Status: Acute Plan c/o blurry vision left eye Remain non oliguric. SPEP was negative. Complements normal, other serology also negative. BP is better, on Metoprolol to 50 mg BID. If renal function will not improve, will consider Renal Biopsy once infection is controlled. Fever pattern is better, ID is following. Now on Bactrim, Acyclovir, Clarithromycin and Ethambutol. No improvement in renal function. Possibly has End stage renal disease. Got PermCath. 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 No need to repeat the renal Biopsy as clinically he is showing no improvement, and the with advance HIV , the treatment options are limited, cannot be given immunosuppressive drugs. He understand increase risk of infection due to advance HIV. Has PD catheter done. Now on Valganciclovir, ID following. Gallium scan is negative. HD to continue TTS. On Epogen , follow Hgb. Transfuse as needed. WBC decreased, now 0.7, possibly related to Valcyte. ID is following, Valcyte dose decreased. Has FUO, further recommendation as per ID. Continue HD as schedule. Problem Qualifiers (1) Renal failure: (2) Sepsis: Kwadwo Shah MD Jan 06, 2017 10:40
--- NOTE | 2017-01-06 11:01 | HHI.PR ---
Subjective Remarks In bed appears in nad. Vision change left eye same, no improvement. No headache. No fever or chills. No n/v/d/c. Denies chest pain or sob. Feels tired. Plan for HD tomorrow. Objective Vitals Vital Signs Date Time Temp Pulse Resp B/P (MAP) Pulse Ox O2 Delivery O2 Flow Rate FiO2 01/06/17 09:36 Room Air 01/06/17 08:00 99.3 107 20 152/90 (110) 99 01/06/17 04:00 98.5 86 20 130/74 (92) 98 01/06/17 00:00 101.9 108 16 123/76 (92) 100 01/05/17 20:00 101.4 106 16 119/76 (90) 100 01/05/17 16:00 100.8 105 16 140/82 (101) 100 I/O 01/05/17 01/05/17 01/05/17 01/06/17 01/06/17 01/06/17 07:00 15:00 23:00 07:00 15:00 23:00 Intake Total 340 ml 120 ml 480 ml 1 ml Output Total 1000 ml 0 ml 150 ml Balance 340 ml -1000 ml 120 ml 330 ml 1 ml Intake Oral 240 ml 120 ml 480 ml IV Total 100 ml 1 ml Output Urine Total 0 ml 150 ml Hemodialysis 1000 ml # Voids 1 # Bowel Movements 2 0 0 Result Diagram: 01/06/17 0604 01/06/17 0604 Imaging Last Impressions Chest X-Ray 01/04/17 0000 Signed Impressions: Service Date/Time: Wednesday, January 04, 2017 14:55 - CONCLUSION: No acute disease. Yoni Rhoades Jr., MD Gallium Scan Nuclear Medicine 12/19/16 0000 Signed Impressions: Service Date/Time: Monday, December 19, 2016 13:19 - CONCLUSION: Negative for occult inflammatory process. Enzo Isbell MD FACR Upper Extremity Ultrasound 12/07/16 0000 Signed Impressions: Service Date/Time: Wednesday, December 07, 2016 10:11 - CONCLUSION: Venous mapping as above. Enzo Isbell MD FACR Renal Biopsy CT 12/01/16 0600 Signed Impressions: Service Date/Time: November 14:17 - CONCLUSION: Uncomplicated CT guided biopsy. Alexis Adhikari MD Central Venous Line 11/29/16 0000 Signed Impressions: Service Date/Time: Tuesday, November 29, 2016 00:00 - CONCLUSION: Uncomplicated catheter removal. Solitario Diaz MD Catheter Placement X-Ray 11/29/16 Signed Impressions: Service Date/Time: Tuesday, November 29, 2016 13:58 - CONCLUSION: Uncomplicated PermaCath placement as above. Solitario Diaz MD Tumor Localization 11/14/16 0000 Signed Impressions: Service Date/Time: Monday, November 14, 2016 11:38 - CONCLUSION: Negative scan Solitario Diaz MD Renal Ultrasound 11/05/16 Signed Impressions: Service Date/Time: Saturday, November 05, 2016 19:17 - CONCLUSION: Diffusely echogenic kidneys indicating medical renal disease. Dorian Murry MD Abdomen/Pelvis CT 11/05/16 Signed Impressions: Service Date/Time: Saturday, November 05, 2016 17:19 - CONCLUSION: 1. 4 mm calculus in the right renal pelvis/ureteropelvic junction with mild adjacent perinephric/periureteral stranding. No evidence of hydronephrosis. 2. 1 cm round hypodensity in the anterior right mid kidney statistically most likely to represent a cyst. 3. 3.7 cm hypodensity in the right lobe of the liver air the dome of the diaphragm. This finding is nonspecific on noncontrast CT. The most likely etiologies include hemangioma and cyst. It could be further evaluated with ultrasound nonemergent followup MRI of the abdomen. 4. Mild dilated proximal right common iliac artery. Dorian Murry MD Objective Remarks GENERAL: Well-developed well-nourished. In no acute distress. SKIN: Warm and dry. No lesions noted. HEENT: Normocephalic. Pupils equal and round and reactive to light. EOMs intact. CARDIOVASCULAR: Regular rate and rhythm. No murmur appreciated. RESPIRATORY: No accessory muscle use. Clear to auscultation. Breath sounds equal bilaterally. GASTROINTESTINAL: S/P PD cath, dressing c/d/i, some tenderness at the PD site. Abdomen soft, nondistended. Bowel sounds x4. MUSCULOSKELETAL: No obvious deformities. No clubbing or cyanosis. No edema. NEUROLOGICAL: Awake and alert. No focal neurological deficits. Moves upper and lower extremities spontaneously. Normal speech. Strength 5/5. PSYCHIATRIC: Appropriate mood and affect; insight and judgment normal. Procedures 11/14/16 hemodialysis catheter placement, right internal jugular 12/14 PD cath placement Side: Right A/P Problem List: (1) Renal failure ICD Code: N19 - Unspecified kidney failure Status: Acute (2) Sepsis ICD Code: A41.9 - Sepsis, unspecified organism Status: Acute (3) UTI (urinary tract infection) ICD Code: N39.0 - Urinary tract infection, site not specified (4) Chronic kidney disease, stage V ICD Code: N18.5 - Chronic kidney disease, stage 5 (5) HIV (human immunodeficiency virus infection) ICD Code: B20 - Human immunodeficiency virus [HIV] disease (6) Anemia ICD Code: D64.9 - Anemia, unspecified (7) Hypertension ICD Code: I10 - Essential (primary) hypertension (8) Medical non-compliance ICD Code: Z91.19 - Patient's noncompliance with other medical treatment and regimen Assessment and Plan 51 yo male with PMHX of HIV who follows with Dr. Samuels as outpatient last seen 6 months ago who admits to being noncompliant with his HIV medications for the past 2 months and presents to [facility] ED with complaints of severe buttock pain secondary to multiple buttock and perirectal wounds for the past two months. AIDS MAC/ CMV infection FUO Fevers - noncompliant with HAART for the last 2 months. - Continue Biaxin, now on Valganciclovir, Ethambutol, Rifampin per infectious disease . - Gallium scan negative/ repeated blood cultures negative. - trial of prednisone. - ID following, fevers likely due to AFB and blood cultures, likely LULU. - Cefepime 2000 mg every 12 hours, fluconazole 400 mg every 24 hours - Patient with end-stage AIDS, may benefit with palliative consult Neutropenia - neupogen shot was given yesterday - Will give another Neupogen shot. Repeat labs in the morning - Hematology consult for further evaluation Acute renal failure superimposed on chronic kidney disease stage V: Nephrology following, remains non-oliguric. SPEP, serology negative. - Creatinine not improving, per Nephro if no improvement a renal biopsy will be done. - Hemodialysis per nephrology. HD TTHS - Vas-cath to be changed to Permacath due to poor flow - Renal biopsy FSGS, with 2 out of 7 glomeruli sclerosis - Limited options secondary to HIV, AIDS HIV/AIDS: CD4 count less than 20. Patient admitted to being noncompliant with HAART meds for the last 2 months. - He has been counseled. 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 Full code Discussed with patient, nurse Discharge Planning Continue to have on and off fevers. ID and nephrology following. Problem Qualifiers (1) Renal failure: (2) Sepsis: Zulma Shaver MD Jan 06, 2017 11:01
--- NOTE | 2017-01-06 13:17 | HHI.IDPN ---
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, on HD; S/P PD cath Notes reviewed Temps up again WBC continues to be low Has gotten 2 doses of Neupogen Awaiting heme evaluation NO new complaints BC negative UA ok CXR clear Last time he got Valcyte was 01/02 Voiding ok No diarrhea No respiratory complaint Vision stable No abdominal pain, no N/V No rash or itching Antibiotics Rifampin Biaxin Ethambutol Cefepime Diflucan Lines permacath Past Medical History HIV, for 20+years, noncompliant with medications for the past 2 months Kidney stones Allergies: Coded Allergies: No Known Allergies (Unverified , 11/05/16) Objective . Vital Signs Date Time Temp Pulse Resp B/P (MAP) Pulse Ox O2 Delivery O2 Flow Rate FiO2 01/06/17 09:36 Room Air 01/06/17 08:00 99.3 107 20 152/90 (110) 99 01/06/17 04:00 98.5 86 20 130/74 (92) 98 01/06/17 00:00 101.9 108 16 123/76 (92) 100 01/05/17 20:00 101.4 106 16 119/76 (90) 100 01/05/17 16:00 100.8 105 16 140/82 (101) 100 01/06/17 01/06/17 01/07/17 14:59 22:59 06:59 Intake Total 1 ml Balance 1 ml IV Total 1 ml . Laboratory Tests Test 01/05/17 05:20 01/06/17 06:04 White Blood Count 0.6 TH/MM3 0.5 TH/MM3 Red Blood Count 2.54 MIL/MM3 2.51 MIL/MM3 Hemoglobin 7.2 GM/DL 7.0 GM/DL Hematocrit 21.9 % 21.8 % Mean Corpuscular Volume 86.1 FL 86.6 FL Mean Corpuscular Hemoglobin 28.3 PG 28.0 PG Mean Corpuscular Hemoglobin Concent 32.8 % 32.3 % Red Cell Distribution Width 17.7 % 17.9 % Platelet Count 112 TH/MM3 110 TH/MM3 Mean Platelet Volume 9.4 FL 9.6 FL CBC Comment AUTO DIFF Differential Total Cells Counted 100 Neutrophils % (Manual) 60 % Band Neutrophils % 12 % Lymphocytes % 14 % Monocytes % 13 % Basophils % 1 % Neutrophils # (Manual) 0.4 TH/MM3 Differential Comment FINAL DIFF MANUAL Toxic Granulation 2+ Platelet Estimate LOW Platelet Morphology Comment ENLARGED Tear Drop Cells 1+ Ovalocytes 1+ Laboratory Tests Test 01/06/17 06:04 Blood Urea Nitrogen 32 MG/DL Creatinine 5.01 MG/DL Random Glucose 89 MG/DL Calcium Level 8.7 MG/DL Sodium Level 137 MEQ/L Potassium Level 4.0 MEQ/L Chloride Level 102 MEQ/L Carbon Dioxide Level 27.0 MEQ/L Anion Gap 8 MEQ/L Estimat Glomerular Filtration Rate 15 ML/MIN Microbiology Date/Time Source Procedure Growth Status 01/04/17 15:39 Blood Peripheral Aerobic Blood Culture - Preliminary NO GROWTH IN 2 DAYS Resulted 01/04/17 15:39 Blood Peripheral Anaerobic Blood Culture - Preliminary NO GROWTH IN 2 DAYS Resulted 01/04/17 15:30 Blood Peripheral Aerobic Blood Culture - Preliminary NO GROWTH IN 2 DAYS Resulted 01/04/17 15:30 Blood Peripheral Anaerobic Blood Culture - Preliminary NO GROWTH IN 2 DAYS Resulted Imaging Last Impressions Renal Biopsy CT 12/01/16 0600 Signed Impressions: Service Date/Time: November 14:17 - CONCLUSION: Uncomplicated CT guided biopsy. Alexis Adhikari MD Central Venous Line 11/29/16 0000 Signed Impressions: Service Date/Time: Tuesday, November 29, 2016 00:00 - CONCLUSION: Uncomplicated catheter removal. Solitario Diaz MD Catheter Placement X-Ray 11/29/16 0000 Signed Impressions: Service Date/Time: Tuesday, November 29, 2016 13:58 - CONCLUSION: Uncomplicated PermaCath placement as above. Solitario Diaz MD Tumor Localization 11/14/16 0000 Signed Impressions: Service Date/Time: Monday, November 14, 2016 11:38 - CONCLUSION: Negative scan Solitario Diaz MD Chest X-Ray 11/13/16 0000 Signed Impressions: Service Date/Time: Sunday, November 13, 2016 16:02 - CONCLUSION: No acute cardiopulmonary disease. Quincy Medellin MD Renal Ultrasound 11/05/16 0000 Signed Impressions: Service Date/Time: Saturday, November 05, 2016 19:17 - CONCLUSION: Diffusely echogenic kidneys indicating medical renal disease. Dorian Murry MD Abdomen/Pelvis CT 11/05/16 0000 Signed Impressions: Service Date/Time: Saturday, November 05, 2016 17:19 - CONCLUSION: 1. 4 mm calculus in the right renal pelvis/ureteropelvic junction with mild adjacent perinephric/periureteral stranding. No evidence of hydronephrosis. 2. 1 cm round hypodensity in the anterior right mid kidney statistically most likely to represent a cyst. 3. 3.7 cm hypodensity in the right lobe of the liver air the dome of the diaphragm. This finding is nonspecific on noncontrast CT. The most likely etiologies include hemangioma and cyst. It could be further evaluated with ultrasound nonemergent followup MRI of the abdomen. 4. Mild dilated proximal right common iliac artery. Dorian Murry MD Physical Exam GENERAL: awake and alert, not in respiratory distress. SKIN: Warm and dry. Dry skin EYES: [place] conjunctiva. No petechia or hemorrhage. No scleral icterus. No injection or drainage. EARS, NOSE AND THROAT: Nose without bleeding or purulent nasal discharge. Mucous membranes pink and moist. White coating on tongue NECK: Trachea midline. Supple and not tender, no meningeal signs CARDIOVASCULAR: Regular rate and rhythm. No murmurs, rubs or gallops heard RESPIRATORY: Clear to auscultation. Breath sounds equal bilaterally. No rales , wheezing or rhonchi ABDOMEN: Soft, not tender, not distended, dry dressing over cath. Bowel sounds present and normoactive. No guarding. No rebound. No organomegaly. Has [place] brown non tender nodule on R lateral groin (chronic been there for years, not getting bigger) EXTREMITIES: No clubbing, cyanosis, or edema. No joint effusion, has good ROM. No calf tenderness. Well perfused and warm. BUTTOCK: Ulcers healed NEUROLOGICAL: Awake alert Non-focal PSYCHIATRIC: Normal affect, calm and cooperative. 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
[2017-01-06] MEDS ORDERED: VANCOMYCIN INJ 1,000 MG in SODIUM CHLOR 0.9% 250 ML INJ 250 ML IV ONE (13:30)
[2017-01-06] MEDS: ACETAMINOPHEN 325 MG TAB PO PRN (17:12)
[2017-01-06] MEDS: FLUCONAZOLE 400 MG PREMIX BAG 200 ML IV SCH (17:12)
[2017-01-06] MEDS: ONDANSETRON HCL 4 MG/2 ML VIAL IVP PRN (19:42)
--- NOTE | 2017-01-06 23:50 | MB ---
cc: TOÑITO MEDINA DATE OF CONSULTATION 01/06/17 DATE OF 1965 REASON FOR CONSULTATION Patient with a HIV/AIDS with a disseminated infection who has severe neutropenia. HISTORY OF PRESENT ILLNESS This is a 51-year-old male who has a longstanding history of HIV of more than 20 years. He has been noncompliant with his medications for the past several years. He has end-stage AIDS. He was admitted to the hospital and has had a complicated course with disseminated MAC infection, acute renal failure and CMV retinitis. He has developed end-stage renal disease and is currently getting peritoneal dialysis. He is on multiple antibiotics including Rifampin, Biaxin, ethambutol, cefepime and Diflucan. He has been having fever of unknown origin and infectious workup is ongoing. The patient has been evaluated by ophthalmology for probable CMV retinitis. The patient is also being followed by nephrology and infectious disease. I have been consulted since the patient has become severely neutropenic. His WBC today is 0.5, a differential is not available but his hemoglobin is also low at 7.0, MCV is 86.6. His platelet count is 110,000. On 01/01/2017 he did have leukopenia with a WBC of 1.6 but his ANC was around 1300. The patient has been given two doses of Neupogen which has been stopped. REVIEW OF SYSTEMS A comprehensive 14-point review of systems was completed which is negative except as described in the HPI. The patient is cachectic, appears to be acutely ill. He is very lethargic. He states that he just wants to rest. MEDICAL HISTORY HIV for 20 years, noncompliant with medications. History of kidney stones. History of chronic kidney disease. PAST SURGICAL HISTORY None. SOCIAL HISTORY No history of illicit drug use. No alcohol abuse. No tobacco abuse. FAMILY HISTORY History of diabetes and renal disease in the family. MEDICATIONS 1. Cefepime IV q. 24 hours. 2. Fluconazole IV q. 24 hours. 3. [place] 5/325 1 tablet p.o. q. 4 hours p.r.n. 4. Rifampin 300 milligrams p.o. q. 12 hours. 5. Epogen 10,000 units IV with dialysis. 6. Ethambutol 800 milligrams p.o. daily. 7. Lactobacillus 1 tablet p.o. q. 12 hours. 8. Biaxin 500 milligrams p.o. q. 12 hours. 9. Gentamicin sulfate IV p.r.n. with dialysis. 10. Tylenol p.r.n. 11. Zofran p.r.n. 12. Nitroglycerin 0.4 milligrams p.r.n. 13. Clonidine 0.1 milligram p.r.n. 14. Senna Docusate 1 tablet p.o. b.i.d. ALLERGIES NO KNOWN DRUG ALLERGIES. PHYSICAL EXAMINATION VITAL SIGNS: Blood pressure is 126/62, pulse in the 90s, temperature is 99.4, respiratory rate is 20, O2 sats are 99% on room air. GENERAL: Cachectic, ill-appearing, frail individual in no apparent distress. Appears to be very lethargic. HEENT: Pupils are equal, round, reactive to light. EOMI. No oral thrush. No oral lesions. NECK: Neck is supple. No JVD, no bruits. No lymphadenopathy. CHEST: Clear to auscultation bilaterally. CARDIAC: S1-S2 regular rate and rhythm. ABDOMEN: Abdomen is kyphotic, bowel sounds are decreased. A nontender nodule is palpated in the right lateral groin. According to the patient this has been there for years. EXTREMITIES: No edema, erythema or cyanosis. SKIN: Without any petechiae, lesion or bruises. He does have healed ulcers on buttock region. NEURO: No focal deficits. PSYCHIATRIC: Mood and affect is appropriate. LABORATORY DATA WBC is 0.5, hemoglobin is 7, platelet count is 110,000. Serum chemistries sodium 137, potassium 4, chloride 102, CO2 27, anion gap is 8, BUN 32, creatinine 5.01, calcium is 8.7. Coags from 11/30/2016 show a PT of 11.1, INR of 1 and PTT of 36.2. ASSESSMENT/PLAN This is a 51-year-old male who has a longstanding history of HIV and now has uncontrolled end-stage AIDS with multiple complications including disseminated MAC infection and CMV retinitis. He also has acute renal failure with end-stage renal disease and is currently on dialysis. I have been consulted to make recommendations regarding his neutropenia. 1. Severe neutropenia with ANC of less than 500 in the setting of end-stage AIDS, disseminated MAC and CMV retinitis. This is an unfortunate situation. The patient is quite neutropenic and he has uncontrolled AIDS. I would recommend daily Neupogen injections. Further management for AIDS per ID. Counts are not expected to improve rapidly in the setting of infection but Neupogen may help improve neutropenia. 2. Anemia with hemoglobin of 7, MCV 86.6. This is likely due to bone marrow suppression with uncontrolled AIDS and disseminated MAC infection. We will check LDH and haptoglobin. Check anemia studies including iron, B12 and folate studies. Transfuse 1 unit of packed red blood cells. 3. Mild thrombocytopenia. No evidence of any bleeding. Continue to monitor. 4. Uncontrolled HIV, MAC infection and CMV retinitis, management per infectious disease. 5. End-stage renal disease, currently on dialysis, seen by nephrology This patient has a very poor prognosis. I agree that evaluation by palliative care would be appropriate. Thank you for allowing me to participate in the care of this patient. I will continue to follow this patient along. MD SHANKAR Vargas/DEEPIKA /10:48 PM /11:25 PM MTDAndie
[2017-01-07] VITALS (9 sets, daily range): BP systolic 105–132; BP diastolic 41–82; PULSE 85–112; RESP 18–20; TEMP 98.2–102.7; O2SAT 99–100
[2017-01-07] MEDS: FILGRASTIM 480 MCG/1.6 ML VIAL SQ SCH ×2 (00:53→14:34)
[2017-01-07 01:09] LABS: LDH SERUM 260 U/L (87-241)
[2017-01-07 01:35] LABS: TRANSFERRIN IRON PROFILE 90 MG/DL (200-360)
[2017-01-07] MEDS: ACETAMINOPHEN 325 MG TAB PO PRN ×2 (02:31→15:59)
[2017-01-07] MEDS: CEFEPIME INJ 2,000 MG in SODIUM CHLORIDE 0.9% INJ 100 ML IV SCH (04:25)
[2017-01-07] MEDS: CLARITHROMYCIN 500 MG TAB PO SCH ×3 (08:19→21:41)
[2017-01-07] MEDS: RIFAMPIN 150 MG CAP PO SCH ×3 (08:19→21:41)
[2017-01-07] MEDS: DOCUSATE SODIUM 50 MG/SENNA 8.6 MG TAB PO SCH ×3 (08:19→21:00)
[2017-01-07] MEDS: LACTOBACILLUS ACIDOPHILUS TAB PO SCH ×3 (08:19→21:42)
[2017-01-07] MEDS: SODIUM CHLORIDE 0.9% FLUSH 10 ML FLUSH IV FLUSH SCH ×2 (08:19→21:41)
[2017-01-07] MEDS: ETHAMBUTOL HCL 400 MG TAB PO SCH (08:19)
--- NOTE | 2017-01-07 09:58 | HHI.NPPN ---
Subjective History of Present Illness 50-year-old male with past medical history of HIV disease for more than 20 years and history of renal stone who came to the hospital with complaint of back pain. The patient has back pain going on for the last 2 months off and on and he came to the emergency department yesterday with worsening pain. Additional Remarks Patient seen on dialysis, febrile last night. Review of Systems General Constitutional: Fatigue Cardiovascular Cardiac: MIRZA Objective Data Data Vital Signs Date Time Temp Pulse Resp B/P (MAP) Pulse Ox O2 Delivery O2 Flow Rate FiO2 01/07/17 08:00 98.6 97 18 120/70 (87) 100 01/07/17 04:00 98.5 103 20 113/66 (82) 100 01/07/17 02:30 102.7 01/07/17 00:00 98.7 89 20 132/82 (99) 100 01/06/17 20:15 94 01/06/17 20:00 99.5 89 20 123/77 (92) 100 01/06/17 19:30 Room Air 01/06/17 16:00 102.8 110 20 154/90 (111) 96 01/06/17 12:00 99.4 96 20 126/82 (97) 99 -: 01/06/17 0604 01/06/17 0604 Physical Exam General Appearance: No Acute Distress, Comfortable Eyes Eye Exam: Pupils Equal Throat Throat Exam: Oral Mucosa [place] & Moist Pulmonary Resp Exam: Breath Sounds Equal, No Distress, Rhonchi, Decreased Bases Cardiology CV Exam: Regular, Normal Sinus Rhythm Gastrointestinal/Abdomen GI Exam: Soft, Non-Tender, Bowel Sounds Present Extremeties Extremities Exam: No Edema Neurologic Neuro Exam: Alert, Awake, Oriented Psychiatric Psych Exam: Appropriate Responses Assessment/Plan Assessment Summary: MIKE/Acute Renal Failure Problem List: (1) Renal failure ICD Codes: N19 - Unspecified kidney failure Status: Acute (2) Sepsis ICD Codes: A41.9 - Sepsis, unspecified organism Status: Acute (3) Open wound of scrotum ICD Codes: S31.30XA - Unspecified open wound of scrotum and testes, initial encounter Status: Acute Plan c/o blurry vision left eye Remain non oliguric. SPEP was negative. Complements normal, other serology also negative. BP is better, on Metoprolol to 50 mg BID. If renal function will not improve, will consider Renal Biopsy once infection is controlled. Fever pattern is better, ID is following. Now on Bactrim, Acyclovir, Clarithromycin and Ethambutol. No improvement in renal function. Possibly has End stage renal disease. Got PermCath. 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 No need to repeat the renal Biopsy as clinically he is showing no improvement, and the with advance HIV , the treatment options are limited, cannot be given immunosuppressive drugs. He understand increase risk of infection due to advance HIV. Has PD catheter done. Now on Valganciclovir, ID following. Gallium scan is negative. HD to continue TTS. On Epogen , follow Hgb. Transfuse as needed. WBC decreased, now 0.7, possibly related to Valcyte. ID is following, Valcyte dose decreased. Has FUO, further recommendation as per ID. Neupogen started, febrile last night. Seen on HD today, tolerating HD well. Next HD Monday Problem Qualifiers (1) Renal failure: (2) Sepsis: Deric Tello MD Jan 07, 2017 09:58
--- NOTE | 2017-01-07 12:11 | PD.ONC.PN ---
Subjective Subjective Remarks Tmax 102.7 overnight. Patient receiving dialysis. Fatigued and lethargic. Objective Data Date Time Temp Pulse Resp B/P (MAP) Pulse Ox O2 Delivery O2 Flow Rate FiO2 01/07/17 08:00 Room Air 01/07/17 08:00 91 01/07/17 08:00 98.6 97 18 120/70 (87) 100 01/07/17 04:00 98.5 103 20 113/66 (82) 100 01/07/17 02:30 102.7 01/07/17 00:00 98.7 89 20 132/82 (99) 100 01/06/17 20:15 94 01/06/17 20:00 99.5 89 20 123/77 (92) 100 01/06/17 19:30 Room Air 01/06/17 16:00 102.8 110 20 154/90 (111) 96 01/06/17 12:00 99.4 96 20 126/82 (97) 99 01/07/17 01/07/17 01/07/17 07:00 15:00 23:00 Intake Total 360 ml Output Total 100 ml Balance 260 ml Result Diagram: 01/06/17 0604 01/06/17 0604 Laboratory Results Laboratory Tests Test 01/07/17 00:25 Haptoglobin 278 MG/DL Iron Level 17 MCG/DL Total Iron Binding Capacity 126 MCG/DL Percent Iron Saturation 13.5 % Lactate Dehydrogenase 260 U/L Vitamin B12 Level 1056 PG/ML Culture Results Microbiology Date/Time Source Procedure Growth Status 01/04/17 15:39 Blood Peripheral Aerobic Blood Culture - Preliminary NO GROWTH IN 3 DAYS Resulted 01/04/17 15:39 Blood Peripheral Anaerobic Blood Culture - Preliminary NO GROWTH IN 3 DAYS Resulted 01/04/17 15:30 Blood Peripheral Aerobic Blood Culture - Preliminary NO GROWTH IN 3 DAYS Resulted 01/04/17 15:30 Blood Peripheral Anaerobic Blood Culture - Preliminary NO GROWTH IN 3 DAYS Resulted Administered Medications Medications (Trade) Dose Ordered Sig/Nyla Route PRN Reason Start Time Stop Time Status Last Admin Dose Admin Acetaminophen (Tylenol) 650 mg Q4H PRN PO TEMP > 100.4 11/05/16 16:15 01/07/17 02:31 Ondansetron HCl (Zofran Inj) 4 mg Q6H PRN IVP NAUSEA OR VOMITING 11/05/16 16:15 01/06/17 19:42 Heparin Sodium (Porcine) (Heparin Inj) 5,000 units Q12H SQ 11/05/16 17:00 Future Hold 12/08/16 18:16 Senna/Docusate Sodium (Dee-Colace) 1 tab BID PO 11/05/16 21:00 01/05/17 20:12 Sodium Chloride 1,000 ml @ 0 mls/hr Q0M PRN IV For Prime & Rinse Back 11/13/16 17:02 01/03/17 11:10 Heparin Sodium (Porcine) (Heparin Inj) 8,000 units UNSCH PRN IVF WITH DIALYSIS 11/13/16 17:15 12/31/16 09:59 Albumin Human (Albumin 25% Inj) 25 gm UNSCH PRN IV WITH DIALYSIS 11/13/16 17:15 12/31/16 09:58 Sodium Chloride (NS Flush) 5 ml UNSCH PRN IV FLUSH WITH DIALYSIS 11/13/16 17:15 12/17/16 10:57 Heparin Sodium (Porcine) (Heparin Inj) UNSCH PRN .XX WITH DIALYSIS 11/13/16 17:15 01/05/17 11:54 Gentamicin Sulfate (Gentamicin (Dialysis) Inj) 20 mg UNSCH PRN IV WITH DIALYSIS 11/13/16 17:15 01/05/17 11:54 Ondansetron HCl (Zofran Inj) 4 mg UNSCH PRN IV WITH DIALYSIS 11/13/16 17:15 12/09/16 20:25 Acetaminophen (Tylenol) 650 mg UNSCH PRN PO for headach, pain, temp > 101F 11/13/16 17:15 01/03/17 21:57 Clonidine (Catapres) 0.1 mg UNSCH PRN PO for BP > 170/100 X 2 readings 11/13/16 17:15 12/08/16 13:25 Metoprolol Tartrate (Lopressor) 50 mg Q12HR PO 11/16/16 21:00 Future Hold 12/02/16 08:53 Amlodipine Besylate (Norvasc) 5 mg DAILY PO 11/19/16 12:00 Future Hold 12/02/16 08:53 Clarithromycin (Biaxin) 500 mg Q12HR PO 11/21/16 21:00 01/06/17 20:01 Heparin Sodium (Porcine) (Heparin Inj) UNSCH PRN IV FLUSH SEE PROTOCOL 11/29/16 18:15 12/06/16 10:15 Lactobacillus Acidophilus (Lactinex) 1 tab Q12HR PO 12/02/16 10:00 01/06/17 20:00 Ethambutol HCl (Myambutol) 800 mg DAILY PO 12/04/16 09:00 01/07/17 08:19 Epoetin Abel (Epogen Inj) 10,000 units UNSCH PRN IV WITH DIALYSIS 12/06/16 09:30 01/05/17 11:54 Rifampin (Rifampin) 300 mg Q12HR PO 12/09/16 21:00 01/06/17 20:01 Sodium Chloride (NS Flush) 2 ml BID IV FLUSH 12/14/16 21:00 01/07/17 08:19 Fluconazole/ Sodium Chloride 200 ml @ 100 mls/hr Q24H IV 01/04/17 15:00 01/06/17 17:12 Cefepime HCl 2000 mg/Sodium Chloride 100 ml @ 200 mls/hr Q24H IV 01/07/17 04:00 01/07/17 04:25 Filgrastim (Neupogen Inj) 480 mcg DAILY@14 SQ 01/06/17 23:15 01/07/17 00:53 Objective Remarks GENERAL: Chronically ill appearing male supine on stretcher, receiving dialysis. SKIN: Warm and dry. HEAD: Normocephalic. EYES: No injection or drainage. NECK: Supple, trachea midline. CARDIOVASCULAR: +S1/S2 RESPIRATORY: anterior ogden clear. GASTROINTESTINAL: Abdomen soft, non-tender, nondistended. EXTREMITIES: No cyanosis NEUROLOGICAL: awake but lethargic. Assessment/Plan Problem List: (1) Severe neutropenia ICD Codes: D70.9 - Neutropenia, unspecified Plan: 01/07: continue Neupogen. monitor CBC --Severe neutropenia with ANC of less than 500 in the setting of end-stage AIDS , disseminated MAC and CMV retinitis. --Counts are not expected to improve rapidly in the setting of infection but Neupogen may help improve neutropenia. (2) Anemia ICD Codes: D64.9 - Anemia, unspecified Plan: 01/07: will transfuse 1 unit pRBC today. --Anemia with hemoglobin of 7, MCV 86.6. --likely due to bone marrow suppression with uncontrolled AIDS and disseminated MAC infection. --iron, B12 show no deficiency (3) Sepsis ICD Codes: A41.9 - Sepsis, unspecified organism Status: Acute Plan: --on multiple antibiotics including Rifampin, Biaxin, ethambutol, cefepime and Diflucan. --has been having fever of unknown origin and infectious workup is ongoing. Assessment 51y/o male with endstage AIDS with a disseminated infection who has severe neutropenia. +disseminated MAC infection, acute renal failure and CMV retinitis. --has developed end-stage renal disease and is currently getting peritoneal dialysis. Attending Statement The exam, history, and the medical decision-making described in the above note were completed with the assistance of the mid-level provider. I reviewed and agree with the findings presented. I attest that I had a [id number] encounter with the patient on the same day, and personally performed and documented my assessment and findings in the medical record. Pt is letrargic, Had HD today has sepsis with AIDS. Prbc today. Problem Qualifiers (1) Anemia: (2) Sepsis: Lynn Taylor Jan 07, 2017 12:11 Kyra Vargas MD Jan 07, 2017 19:42
[2017-01-07] MEDS: GENTAMICIN SULFATE (DIALYSIS USE ONLY) 20 MG/2 ML VIAL IV PRN (12:29)
[2017-01-07] MEDS: EPOETIN ALFA 10,000 UNITS/ML VIAL IV PRN (12:29)
--- NOTE | 2017-01-07 13:55 | HHI.PR ---
Subjective Remarks Seen in dialysis. Patient appears sleepy. He denies having any chest pain or sob ,. He feels very tired. No n/v/d/c. No fever or chills. Receievd 1PRBC, with HD, also ~ 3L taken out today , discussed with the patient and HD nurse Objective Vitals Vital Signs Date Time Temp Pulse Resp B/P (MAP) Pulse Ox O2 Delivery O2 Flow Rate FiO2 01/07/17 12:26 98.2 87 20 123/41 01/07/17 12:10 98.2 85 18 105/72 01/07/17 08:00 Room Air 01/07/17 08:00 91 01/07/17 08:00 98.6 97 18 120/70 (87) 100 01/07/17 04:00 98.5 103 20 113/66 (82) 100 01/07/17 02:30 102.7 01/07/17 00:00 98.7 89 20 132/82 (99) 100 01/06/17 20:15 94 01/06/17 20:00 99.5 89 20 123/77 (92) 100 01/06/17 19:30 Room Air 01/06/17 16:00 102.8 110 20 154/90 (111) 96 I/O 01/06/17 01/06/17 01/06/17 01/07/17 01/07/17 01/07/17 07:00 15:00 23:00 07:00 15:00 23:00 Intake Total 480 ml 1 ml 690 ml 360 ml 502 ml Output Total 150 ml 200 ml 100 ml 2000 ml Balance 330 ml 1 ml 490 ml 260 ml -1498 ml Intake Oral 480 ml 240 ml 360 ml IV Total 1 ml 450 ml 2 ml Packed Cells 400 ml Blood Product IV Normal Saline Flush 100 ml Output Urine Total 150 ml 200 ml 100 ml Hemodialysis 2000 ml # Voids 1 # Bowel Movements 0 0 1 Result Diagram: 01/06/1760301/06/17603 Objective Remarks GENERAL: Well-developed well-nourished. In no acute distress. SKIN: Warm and dry. No lesions noted. HEENT: Normocephalic. Pupils equal and round and reactive to light. EOMs intact. CARDIOVASCULAR: Regular rate and rhythm. No murmur appreciated. RESPIRATORY: No accessory muscle use. Clear to auscultation. Breath sounds equal bilaterally. GASTROINTESTINAL: S/P PD cath, dressing c/d/i, some tenderness at the PD site. Abdomen soft, nondistended. Bowel sounds x4. MUSCULOSKELETAL: No obvious deformities. No clubbing or cyanosis. No edema. NEUROLOGICAL: Awake and alert. No focal neurological deficits. Moves upper and lower extremities spontaneously. Normal speech. Strength 5/5. PSYCHIATRIC: Appropriate mood and affect; insight and judgment normal. Procedures 11/14/16 hemodialysis catheter placement, right internal jugular 12/14 PD cath placement Side: Right A/P Problem List: (1) Renal failure ICD Code: N19 - Unspecified kidney failure Status: Acute (2) Sepsis ICD Code: A41.9 - Sepsis, unspecified organism Status: Acute (3) UTI (urinary tract infection) ICD Code: N39.0 - Urinary tract infection, site not specified (4) Chronic kidney disease, stage V ICD Code: N18.5 - Chronic kidney disease, stage 5 (5) HIV (human immunodeficiency virus infection) ICD Code: B20 - Human immunodeficiency virus [HIV] disease (6) Anemia ICD Code: D64.9 - Anemia, unspecified (7) Hypertension ICD Code: I10 - Essential (primary) hypertension (8) Medical non-compliance ICD Code: Z91.19 - Patient's noncompliance with other medical treatment and regimen Assessment and Plan 51 yo male with PMHX of HIV who follows with Dr. Samuels as outpatient last seen 6 months ago who admits to being noncompliant with his HIV medications for the past 2 months and presents to [facility] ED with complaints of severe buttock pain secondary to multiple buttock and perirectal wounds for the past two months. AIDS MAC/ CMV infection FUO Fevers - noncompliant with HAART for the last 2 months. - Continue Biaxin, now on Valganciclovir, Ethambutol, Rifampin per infectious disease . - Gallium scan negative/ repeated blood cultures negative. - trial of prednisone. - ID following, fevers likely due to AFB and blood cultures, likely LULU. - Cefepime 2000 mg every 12 hours, fluconazole 400 mg every 24 hours - Patient with end-stage AIDS, may benefit with palliative consult Neutropenia - neupogen shot was given yesterday - Will give another Neupogen shot. Repeat labs in the morning - Hematology consult for further evaluation Acute renal failure superimposed on chronic kidney disease stage V: Nephrology following, remains non-oliguric. SPEP, serology negative. - Creatinine not improving, per Nephro if no improvement a renal biopsy will be done. - Hemodialysis per nephrology. HD TTHS - Vas-cath to be changed to Permacath due to poor flow - Renal biopsy FSGS, with 2 out of 7 glomeruli sclerosis - Limited options secondary to HIV, AIDS Anemia of chronic disease (kidney) , monitor and transfuse as need. Received 1[facility] 01/07/17 with HD. HIV/AIDS: CD4 count less than 20. Patient admitted to being noncompliant with HAART meds for the last 2 months. - He has been counseled. 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 Full code Discussed with patient, nurse Discharge Planning Continue to have on and off fevers. ID and nephrology following. Problem Qualifiers (1) Renal failure: (2) Sepsis: (3) Anemia: Zulma Shaver MD Jan 07, 2017 13:54
[2017-01-07] MEDS: FLUCONAZOLE 400 MG PREMIX BAG 200 ML IV SCH (14:33)
[2017-01-07 18:05] LABS: HEMATOCRIT 24.4 % (39.0-51.0); MEAN CELL VOLUME 85.7 FL (80.0-100.0); MEAN CORPUSCULAR HEMOGLOBIN 28.5 PG (27.0-34.0); MEAN CORPUSCULAR HGB CONC 33.3 % (32.0-36.0); PLATELET COUNT 109 TH/MM3 (150-450); RED BLOOD COUNT 2.85 MIL/MM3 (4.50-5.90); RED CELL DISTRIBUTION WIDTH 16.9 % (11.6-17.2); WHITE BLOOD COUNT 0.6 TH/MM3 (4.0-11.0)
[2017-01-07 18:12] LABS: HEMO FLAGS AUTO DIFF
[2017-01-07 19:26] LABS: BANDS 12 % (0-6); BASOPHILS 6 % (0-2); EOSINOPHILS 14 % (0-4); METAMYELOCYTES 2 % (0-1); MYELOCYTES 1 % (0-0); POLYS (SEG NEUTROPHILS) 17 % (16-70); PROMYELOCYTES 2 % (0-0); SCAN/DIFF FINAL DIFF MANUAL; WBC DIFF SAMPLE 100
[2017-01-07 19:29] LABS: HELMET CELLS OCC (NORMAL); OVALOCYTES 1+ (NORMAL); PLATELET ESTIMATE SMEAR LOW (NORMAL); PLATELET MORPHOLOGY NORMAL (NORMAL)
[2017-01-07 19:30] LABS: SPHEROCYTES OCC (NORMAL)
[2017-01-07 20:17] LABS: NEUTROPHIL # MANUAL DIFF 0.2 TH/MM3 (1.8-7.7)
[2017-01-08] VITALS (7 sets, daily range): BP systolic 119–130; BP diastolic 71–84; PULSE 97–119; RESP 16–20; TEMP 97.7–100.3; O2SAT 97–100
[2017-01-08] MEDS: CEFEPIME INJ 2,000 MG in SODIUM CHLORIDE 0.9% INJ 100 ML IV SCH (03:04)
[2017-01-08] MEDS: LACTOBACILLUS ACIDOPHILUS TAB PO SCH ×3 (08:56→21:09)
[2017-01-08] MEDS: RIFAMPIN 150 MG CAP PO SCH ×3 (08:56→21:09)
[2017-01-08] MEDS: CLARITHROMYCIN 500 MG TAB PO SCH ×3 (08:56→21:09)
[2017-01-08] MEDS: ETHAMBUTOL HCL 400 MG TAB PO SCH ×2 (08:57→09:09)
[2017-01-08] MEDS: DOCUSATE SODIUM 50 MG/SENNA 8.6 MG TAB PO SCH ×2 (08:57→21:09)
[2017-01-08] MEDS: SODIUM CHLORIDE 0.9% FLUSH 10 ML FLUSH IV FLUSH SCH ×2 (08:57→21:09)
--- NOTE | 2017-01-08 09:34 | HHI.PR ---
Subjective Remarks More awake and alert today. No fever ro chills. No diarrhea. Feels better than yesterday. Eating failry well. No pain at this time. Objective Vitals Vital Signs Date Time Temp Pulse Resp B/P (MAP) Pulse Ox O2 Delivery O2 Flow Rate FiO2 01/08/17 08:00 Room Air 01/08/17 05:00 99.9 119 16 126/81 (96) 97 01/08/17 00:00 98.9 101 20 123/84 (97) 100 01/07/17 20:45 Room Air 01/07/17 20:09 94 01/07/17 20:00 98.7 96 20 114/82 (93) 100 01/07/17 16:00 102.0 112 20 124/81 (95) 99 01/07/17 12:26 98.2 87 20 123/41 01/07/17 12:10 98.2 85 18 105/72 I/O 01/07/17 01/07/17 01/07/17 01/08/17 01/08/17 01/08/17 07:00 15:00 23:00 07:00 15:00 23:00 Intake Total 460 ml 502 ml 240 ml 220 ml Output Total 100 ml 2000 ml Balance 360 ml -1498 ml 240 ml 220 ml Intake Oral 360 ml 240 ml 120 ml IV Total 100 ml 2 ml 100 ml Packed Cells 400 ml Blood Product IV Normal Saline Flush 100 ml Output Urine Total 100 ml Hemodialysis 2000 ml # Voids 1 2 2 # Bowel Movements 1 1 1 Result Diagram: 01/07/17 1715 01/06/17 0604 Objective Remarks GENERAL: Well-developed well-nourished. In no acute distress. SKIN: Warm and dry. No lesions noted. HEENT: Normocephalic. Pupils equal and round and reactive to light. EOMs intact. CARDIOVASCULAR: Regular rate and rhythm. No murmur appreciated. RESPIRATORY: No accessory muscle use. Clear to auscultation. Breath sounds equal bilaterally. GASTROINTESTINAL: S/P PD cath, dressing c/d/i, some tenderness at the PD site. Abdomen soft, nondistended. Bowel sounds x4. MUSCULOSKELETAL: No obvious deformities. No clubbing or cyanosis. No edema. NEUROLOGICAL: Awake and alert. No focal neurological deficits. Moves upper and lower extremities spontaneously. Normal speech. Strength 5/5. PSYCHIATRIC: Appropriate mood and affect; insight and judgment normal. Procedures 11/14/16 hemodialysis catheter placement, right internal jugular 12/14 PD cath placement Side: Right A/P Problem List: (1) Renal failure ICD Code: N19 - Unspecified kidney failure Status: Acute (2) Sepsis ICD Code: A41.9 - Sepsis, unspecified organism Status: Acute (3) UTI (urinary tract infection) ICD Code: N39.0 - Urinary tract infection, site not specified (4) Chronic kidney disease, stage V ICD Code: N18.5 - Chronic kidney disease, stage 5 (5) HIV (human immunodeficiency virus infection) ICD Code: B20 - Human immunodeficiency virus [HIV] disease (6) Anemia ICD Code: D64.9 - Anemia, unspecified (7) Hypertension ICD Code: I10 - Essential (primary) hypertension (8) Medical non-compliance ICD Code: Z91.19 - Patient's noncompliance with other medical treatment and regimen Assessment and Plan 51 yo male with PMHX of HIV who follows with Dr. Samuels as outpatient last seen 6 months ago who admits to being noncompliant with his HIV medications for the past 2 months and presents to [facility] ED with complaints of severe buttock pain secondary to multiple buttock and perirectal wounds for the past two months. AIDS MAC/ CMV infection FUO Fevers - noncompliant with HAART for the last 2 months. - Continue Biaxin, now on Valganciclovir, Ethambutol, Rifampin per infectious disease . - Gallium scan negative/ repeated blood cultures negative. - trial of prednisone. - ID following, fevers likely due to AFB and blood cultures, likely LULU. - Cefepime 2000 mg every 12 hours, fluconazole 400 mg every 24 hours - Patient with end-stage AIDS, may benefit with palliative consult Neutropenia - neupogen shot was given yesterday - Will give another Neupogen shot. Repeat labs in the morning - Hematology consult for further evaluation Acute renal failure superimposed on chronic kidney disease stage V: Nephrology following, remains non-oliguric. SPEP, serology negative. - Creatinine not improving, per Nephro if no improvement a renal biopsy will be done. - Hemodialysis per nephrology. HD TTHS - Vas-cath to be changed to Permacath due to poor flow - Renal biopsy FSGS, with 2 out of 7 glomeruli sclerosis - Limited options secondary to HIV, AIDS Anemia of chronic disease (kidney) , monitor and transfuse as need. [facility] 01[facility]17 with HD. HIV/AIDS: CD4 count less than 20. Patient admitted to being noncompliant with HAART meds for the last 2 months. - He has been counseled. 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 Full code Discussed with patient, nurse Discharge Planning Continue to have on and off fevers. ID and nephrology following. Problem Qualifiers (1) Renal failure: (2) Sepsis: (3) Anemia: Zulma Shaver MD Jan 08, 2017 09:34
--- NOTE | 2017-01-08 10:39 | HHI.NPPN ---
Subjective History of Present Illness 50-year-old male with past medical history of HIV disease for more than 20 years and history of renal stone who came to the hospital with complaint of back pain. The patient has back pain going on for the last 2 months off and on and he came to the emergency department yesterday with worsening pain. Additional Remarks Patient tolerated HD yesterday. Fever yesterday, no acute complaints today. Review of Systems General Constitutional: Fatigue Cardiovascular Cardiac: MIRZA Objective Data Data Vital Signs Date Time Temp Pulse Resp B/P (MAP) Pulse Ox O2 Delivery O2 Flow Rate FiO2 01/08/17 08:00 Room Air 01/08/17 08:00 100 01/08/17 08:00 97.7 104 18 123/71 (88) 100 01/08/17 05:00 99.9 119 16 126/81 (96) 97 01/08/17 00:00 98.9 101 20 123/84 (97) 100 01/07/17 20:45 Room Air 01/07/17 20:09 94 01/07/17 20:00 98.7 96 20 114/82 (93) 100 01/07/17 16:00 102.0 112 20 124/81 (95) 99 01/07/17 12:26 98.2 87 20 123/41 01/07/17 12:10 98.2 85 18 105/72 -: 01/07/17 1715 01/06/17 0604 Physical Exam General Appearance: No Acute Distress, Comfortable Eyes Eye Exam: Pupils Equal Throat Throat Exam: Oral Mucosa [place] & Moist Pulmonary Resp Exam: Breath Sounds Equal, No Distress, Rhonchi, Decreased Bases Cardiology CV Exam: Regular, Normal Sinus Rhythm Gastrointestinal/Abdomen GI Exam: Soft, Non-Tender, Bowel Sounds Present Extremeties Extremities Exam: No Edema Neurologic Neuro Exam: Alert, Awake, Oriented Psychiatric Psych Exam: Appropriate Responses Assessment/Plan Assessment Summary: MIKE/Acute Renal Failure Problem List: (1) Renal failure ICD Codes: N19 - Unspecified kidney failure Status: Acute (2) Sepsis ICD Codes: A41.9 - Sepsis, unspecified organism Status: Acute (3) Open wound of scrotum ICD Codes: S31.30XA - Unspecified open wound of scrotum and testes, initial encounter Status: Acute Plan c/o blurry vision left eye Remain non oliguric. SPEP was negative. Complements normal, other serology also negative. BP is better, on Metoprolol to 50 mg BID. If renal function will not improve, will consider Renal Biopsy once infection is controlled. Fever pattern is better, ID is following. Now on Bactrim, Acyclovir, Clarithromycin and Ethambutol. No improvement in renal function. Possibly has End stage renal disease. Got PermCath. 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 No need to repeat the renal Biopsy as clinically he is showing no improvement, and the with advance HIV , the treatment options are limited, cannot be given immunosuppressive drugs. He understand increase risk of infection due to advance HIV. Has PD catheter done. Now on Valganciclovir, ID following. Gallium scan is negative. HD to continue TTS. On Epogen , follow Hgb. Transfuse as needed. WBC decreased, now 0.7, possibly related to Valcyte. ID is following, Valcyte dose decreased. Has FUO, further recommendation as per ID. Neupogen started, febrile yesterday Tolerated HD well yesterday. Next HD Monday Problem Qualifiers (1) Renal failure: (2) Sepsis: Deric Tello MD Jan 08, 2017 10:39
--- NOTE | 2017-01-08 10:46 | PD.ONC.PN ---
Subjective Subjective Remarks Afebrile overnight. Resting in bed in nad. no complaints. Objective Data Date Time Temp Pulse Resp B/P (MAP) Pulse Ox O2 Delivery O2 Flow Rate FiO2 01/08/17 08:00 Room Air 01/08/17 08:00 100 01/08/17 08:00 97.7 104 18 123/71 (88) 100 01/08/17 05:00 99.9 119 16 126/81 (96) 97 01/08/17 00:00 98.9 101 20 123/84 (97) 100 01/07/17 20:45 Room Air 01/07/17 20:09 94 01/07/17 20:00 98.7 96 20 114/82 (93) 100 01/07/17 16:00 102.0 112 20 124/81 (95) 99 01/07/17 12:26 98.2 87 20 123/41 01/07/17 12:10 98.2 85 18 105/72 01/08/17 01/08/17 01/08/17 07:00 15:00 23:00 Intake Total 220 ml Balance 220 ml Result Diagram: 01/07/17 1715 01/06/17 0604 Laboratory Results Laboratory Tests Test 01/07/17 17:15 White Blood Count 0.6 TH/MM3 Red Blood Count 2.85 MIL/MM3 Hemoglobin 8.1 GM/DL Hematocrit 24.4 % Mean Corpuscular Volume 85.7 FL Mean Corpuscular Hemoglobin 28.5 PG Mean Corpuscular Hemoglobin Concent 33.3 % Red Cell Distribution Width 16.9 % Platelet Count 109 TH/MM3 Mean Platelet Volume 9.7 FL CBC Comment AUTO DIFF Differential Total Cells Counted 100 Neutrophils % (Manual) 17 % Band Neutrophils % 12 % Lymphocytes % 17 % Monocytes % 29 % Eosinophils % 14 % Basophils % 6 % Neutrophils # (Manual) 0.2 TH/MM3 Metamyelocytes 2 % Myelocytes 1 % Promyelocytes 2 % Differential Comment FINAL DIFF MANUAL Platelet Estimate LOW Platelet Morphology Comment NORMAL Spherocytes OCC Ovalocytes 1+ Helmet Cells OCC Administered Medications Medications (Trade) Dose Ordered Sig/Nyla Route PRN Reason Start Time Stop Time Status Last Admin Dose Admin Acetaminophen (Tylenol) 650 mg Q4H PRN PO TEMP > 100.4 11/05/16 16:15 01/07/17 15:59 Ondansetron HCl (Zofran Inj) 4 mg Q6H PRN IVP NAUSEA OR VOMITING 11/05/16 16:15 01/06/17 19:42 Heparin Sodium (Porcine) (Heparin Inj) 5,000 units Q12H SQ 11/05/16 17:00 Future Hold 12/08/16 18:16 Senna/Docusate Sodium (Dee-Colace) 1 tab BID PO 11/05/16 21:00 01/05/17 20:12 Sodium Chloride 1,000 ml @ 0 mls/hr Q0M PRN IV For Prime & Rinse Back 11/13/16 17:02 01/03/17 11:10 Heparin Sodium (Porcine) (Heparin Inj) 8,000 units UNSCH PRN IVF WITH DIALYSIS 11/13/16 17:15 12/31/16 09:59 Albumin Human (Albumin 25% Inj) 25 gm UNSCH PRN IV WITH DIALYSIS 11/13/16 17:15 12/31/16 09:58 Sodium Chloride (NS Flush) 5 ml UNSCH PRN IV FLUSH WITH DIALYSIS 11/13/16 17:15 12/17/16 10:57 Heparin Sodium (Porcine) (Heparin Inj) UNSCH PRN .XX WITH DIALYSIS 11/13/16 17:15 01/05/17 11:54 Gentamicin Sulfate (Gentamicin (Dialysis) Inj) 20 mg UNSCH PRN IV WITH DIALYSIS 11/13/16 17:15 01/07/17 12:29 Ondansetron HCl (Zofran Inj) 4 mg UNSCH PRN IV WITH DIALYSIS 11/13/16 17:15 12/09/16 20:25 Acetaminophen (Tylenol) 650 mg UNSCH PRN PO for headach, pain, temp > 101F 11/13/16 17:15 01/03/17 21:57 Clonidine (Catapres) 0.1 mg UNSCH PRN PO for BP > 170/100 X 2 readings 11/13/16 17:15 12/08/16 13:25 Metoprolol Tartrate (Lopressor) 50 mg Q12HR PO 11/16/16 21:00 Future Hold 12/02/16 08:53 Amlodipine Besylate (Norvasc) 5 mg DAILY PO 11/19/16 12:00 Future Hold 12/02/16 08:53 Clarithromycin (Biaxin) 500 mg Q12HR PO 11/21/16 21:00 01/07/17 21:41 Heparin Sodium (Porcine) (Heparin Inj) UNSCH PRN IV FLUSH SEE PROTOCOL 11/29/16 18:15 12/06/16 10:15 Lactobacillus Acidophilus (Lactinex) 1 tab Q12HR PO 12/02/16 10:00 01/07/17 21:42 Ethambutol HCl (Myambutol) 800 mg DAILY PO 12/04/16 09:00 01/07/17 08:19 Epoetin Abel (Epogen Inj) 10,000 units UNSCH PRN IV WITH DIALYSIS 12/06/16 09:30 01/07/17 12:29 Rifampin (Rifampin) 300 mg Q12HR PO 12/09/16 21:00 01/07/17 21:41 Sodium Chloride (NS Flush) 2 ml BID IV FLUSH 12/14/16 21:00 01/08/17 08:57 Fluconazole/ Sodium Chloride 200 ml @ 100 mls/hr Q24H IV 01/04/17 15:00 01/07/17 14:33 Cefepime HCl 2000 mg/Sodium Chloride 100 ml @ 200 mls/hr Q24H IV 01/07/17 04:00 01/08/17 03:04 Filgrastim (Neupogen Inj) 480 mcg DAILY@14 SQ 01/06/17 23:15 01/07/17 14:34 Objective Remarks GENERAL: Middle aged, chronically ill appearing male supine in bed in [facility]. SKIN: Warm and dry. HEAD: Normocephalic. EYES: No injection or drainage. NECK: Supple, trachea midline. CARDIOVASCULAR: +S1/S2 RESPIRATORY: Breath sounds equal bilaterally. No accessory muscle use. GASTROINTESTINAL: Abdomen soft, non-tender, nondistended. EXTREMITIES: No cyanosis. NEUROLOGICAL: awake and alert, normal speech. Assessment/Plan Problem List: (1) Severe neutropenia ICD Codes: D70.9 - Neutropenia, unspecified Plan: 01/08: monitor CBC, continue Neupogen. --Severe neutropenia with ANC of less than 500 in the setting of end-stage AIDS , disseminated MAC and CMV retinitis. --Counts are not expected to improve rapidly in the setting of infection but Neupogen may help improve neutropenia. (2) Anemia ICD Codes: D64.9 - Anemia, unspecified Plan: 01/08: hgb improved after transfusion yesterday. monitor --Anemia with hemoglobin of 7, MCV 86.6. --likely due to bone marrow suppression with uncontrolled AIDS and disseminated MAC infection. --iron, B12 show no deficiency (3) Sepsis ICD Codes: A41.9 - Sepsis, unspecified organism Status: Acute Plan: --on multiple antibiotics including Rifampin, Biaxin, ethambutol, cefepime and Diflucan. --has been having fever of unknown origin and infectious workup is ongoing. Assessment 51y/o male with endstage AIDS with a disseminated infection who has severe neutropenia. +disseminated MAC infection, acute renal failure and CMV retinitis. --has developed end-stage renal disease and is currently getting peritoneal dialysis. Attending Statement The exam, history, and the medical decision-making described in the above note were completed with the assistance of the mid-level provider. I reviewed and agree with the findings presented. I attest that I had a [id number] encounter with the patient on the same day, and personally performed and documented my assessment and findings in the medical record. no c/o offer WBC is coming up with neupogen HG improved monitor cbc Problem Qualifiers (1) Anemia: (2) Sepsis: Lynn Taylor Jan 08, 2017 10:46 Kyra Vargas MD Jan 08, 2017 17:39
[2017-01-08 12:06] LABS: HEMATOCRIT 24.4 % (39.0-51.0); MEAN CELL VOLUME 86.7 FL (80.0-100.0); MEAN CORPUSCULAR HEMOGLOBIN 28.7 PG (27.0-34.0); PLATELET COUNT 107 TH/MM3 (150-450); RED BLOOD COUNT 2.81 MIL/MM3 (4.50-5.90); RED CELL DISTRIBUTION WIDTH 17.5 % (11.6-17.2); WHITE BLOOD COUNT 0.9 TH/MM3 (4.0-11.0)
[2017-01-08 12:08] LABS: HEMO FLAGS AUTO DIFF
[2017-01-08 12:49] LABS: BANDS 20 % (0-6); BASOPHILS 6 % (0-2); EOSINOPHILS 14 % (0-4); METAMYELOCYTES 1 % (0-1); POLYS (SEG NEUTROPHILS) 38 % (16-70); WBC DIFF SAMPLE 95
[2017-01-08 12:51] LABS: NEUTROPHIL # MANUAL DIFF 0.5 TH/MM3 (1.8-7.7)
[2017-01-08 12:52] LABS: KERATOCYTES OCC (NORMAL); PLATELET ESTIMATE SMEAR LOW (NORMAL); PLATELET MORPHOLOGY ENLARGED (NORMAL); SCAN/DIFF FINAL DIFF MANUAL
[2017-01-08 12:53] LABS: TOXIC GRANULATION 1+ (NORMAL)
[2017-01-08] MEDS: FILGRASTIM 480 MCG/1.6 ML VIAL SQ SCH (14:00)
[2017-01-08] MEDS: FLUCONAZOLE 400 MG PREMIX BAG 200 ML IV SCH (14:00)
[2017-01-09] VITALS: BP 137/86; PULSE 110; RESP 18; TEMP 99.1; O2SAT 98
[2017-01-09] MEDS: CEFEPIME INJ 2,000 MG in SODIUM CHLORIDE 0.9% INJ 100 ML IV SCH (03:48)
[2017-01-09 04:00] VITALS: BP 126/80; PULSE 107; RESP 18; TEMP 98.4; O2SAT 100
[2017-01-09 08:00] VITALS: BP 132/85; PULSE 100; PULSE 107; RESP 18; TEMP 99.1; O2SAT 98
[2017-01-09] MEDS: DOCUSATE SODIUM 50 MG/SENNA 8.6 MG TAB PO SCH ×2 (09:00→21:13)
[2017-01-09] MEDS: CLARITHROMYCIN 500 MG TAB PO SCH ×2 (09:00→21:13)
[2017-01-09] MEDS: RIFAMPIN 150 MG CAP PO SCH ×2 (09:00→21:13)
[2017-01-09] MEDS: LACTOBACILLUS ACIDOPHILUS TAB PO SCH ×2 (09:00→21:13)
[2017-01-09] MEDS: SODIUM CHLORIDE 0.9% FLUSH 10 ML FLUSH IV FLUSH SCH ×2 (09:00→21:00)
[2017-01-09] MEDS: ETHAMBUTOL HCL 400 MG TAB PO SCH (09:23)
--- NOTE | 2017-01-09 10:31 | PD.ONC.PN ---
Subjective Subjective Remarks Afebrile overnight. Patient resting in bed in nad. No overnight events. Objective Data Date Time Temp Pulse Resp B/P (MAP) Pulse Ox O2 Delivery O2 Flow Rate FiO2 01/09/17 08:00 99.1 100 18 132/85 (101) 98 01/09/17 04:00 Room Air 01/09/17 04:00 98.4 107 18 126/80 (95) 100 01/09/17 00:00 Room Air 01/09/17 00:00 99.1 110 18 137/86 (103) 98 01/08/17 21:00 Room Air 01/08/17 20:00 98.8 107 20 130/79 (96) 100 01/08/17 19:55 108 01/08/17 16:00 100.3 106 20 119/77 (91) 100 01/08/17 12:00 99.2 97 18 121/77 (92) 100 01/09/17 01/09/17 01/09/17 07:00 15:00 23:00 Intake Total 340 ml Balance 340 ml Result Diagram: 01/08/17 1050 01/06/17 0604 Laboratory Results Laboratory Tests Test 01/08/17 10:50 White Blood Count 0.9 TH/MM3 Red Blood Count 2.81 MIL/MM3 Hemoglobin 8.1 GM/DL Hematocrit 24.4 % Mean Corpuscular Volume 86.7 FL Mean Corpuscular Hemoglobin 28.7 PG Mean Corpuscular Hemoglobin Concent 33.0 % Red Cell Distribution Width 17.5 % Platelet Count 107 TH/MM3 Mean Platelet Volume 10.6 FL CBC Comment AUTO DIFF Differential Total Cells Counted 95 Neutrophils % (Manual) 38 % Band Neutrophils % 20 % Lymphocytes % 6 % Monocytes % 15 % Eosinophils % 14 % Basophils % 6 % Neutrophils # (Manual) 0.5 TH/MM3 Metamyelocytes 1 % Differential Comment FINAL DIFF MANUAL Toxic Granulation 1+ Platelet Estimate LOW Platelet Morphology Comment ENLARGED Keratocytes OCC Administered Medications Medications (Trade) Dose Ordered Sig/Nyla Route PRN Reason Start Time Stop Time Status Last Admin Dose Admin Acetaminophen (Tylenol) 650 mg Q4H PRN PO TEMP > 100.4 11/05/16 16:15 01/07/17 15:59 Ondansetron HCl (Zofran Inj) 4 mg Q6H PRN IVP NAUSEA OR VOMITING 11/05/16 16:15 01/06/17 19:42 Heparin Sodium (Porcine) (Heparin Inj) 5,000 units Q12H SQ 11/05/16 17:00 Future Hold 12/08/16 18:16 Senna/Docusate Sodium (Dee-Colace) 1 tab BID PO 11/05/16 21:00 01/08/17 21:09 Sodium Chloride 1,000 ml @ 0 mls/hr Q0M PRN IV For Prime & Rinse Back 11/13/16 17:02 01/03/17 11:10 Heparin Sodium (Porcine) (Heparin Inj) 8,000 units UNSCH PRN IVF WITH DIALYSIS 11/13/16 17:15 12/31/16 09:59 Albumin Human (Albumin 25% Inj) 25 gm UNSCH PRN IV WITH DIALYSIS 11/13/16 17:15 12/31/16 09:58 Sodium Chloride (NS Flush) 5 ml UNSCH PRN IV FLUSH WITH DIALYSIS 11/13/16 17:15 12/17/16 10:57 Heparin Sodium (Porcine) (Heparin Inj) UNSCH PRN .XX WITH DIALYSIS 11/13/16 17:15 01/05/17 11:54 Gentamicin Sulfate (Gentamicin (Dialysis) Inj) 20 mg UNSCH PRN IV WITH DIALYSIS 11/13/16 17:15 01/07/17 12:29 Ondansetron HCl (Zofran Inj) 4 mg UNSCH PRN IV WITH DIALYSIS 11/13/16 17:15 12/09/16 20:25 Acetaminophen (Tylenol) 650 mg UNSCH PRN PO for headach, pain, temp > 101F 11/13/16 17:15 01/03/17 21:57 Clonidine (Catapres) 0.1 mg UNSCH PRN PO for BP > 170/100 X 2 readings 11/13/16 17:15 12/08/16 13:25 Metoprolol Tartrate (Lopressor) 50 mg Q12HR PO 11/16/16 21:00 Future Hold 12/02/16 08:53 Amlodipine Besylate (Norvasc) 5 mg DAILY PO 11/19/16 12:00 Future Hold 12/02/16 08:53 Clarithromycin (Biaxin) 500 mg Q12HR PO 11/21/16 21:00 01/08/17 21:09 Heparin Sodium (Porcine) (Heparin Inj) UNSCH PRN IV FLUSH SEE PROTOCOL 11/29/16 18:15 12/06/16 10:15 Lactobacillus Acidophilus (Lactinex) 1 tab Q12HR PO 12/02/16 10:00 01/08/17 21:09 Ethambutol HCl (Myambutol) 800 mg DAILY PO 12/04/16 09:00 01/09/17 09:23 Epoetin Abel (Epogen Inj) 10,000 units UNSCH PRN IV WITH DIALYSIS 12/06/16 09:30 01/07/17 12:29 Rifampin (Rifampin) 300 mg Q12HR PO 12/09/16 21:00 01/08/17 21:09 Sodium Chloride (NS Flush) 2 ml BID IV FLUSH 12/14/16 21:00 01/09/17 09:00 Fluconazole/ Sodium Chloride 200 ml @ 100 mls/hr Q24H IV 01/04/17 15:00 01/08/17 14:00 Cefepime HCl 2000 mg/Sodium Chloride 100 ml @ 200 mls/hr Q24H IV 01/07/17 04:00 01/09/17 03:48 Filgrastim (Neupogen Inj) 480 mcg DAILY@14 SQ 01/06/17 23:15 01/08/17 14:00 Objective Remarks GENERAL: chronically ill male supine in bed in [facility]. SKIN: Warm and dry. HEAD: Normocephalic. EYES: No injection or drainage. NECK: Supple, trachea midline. CARDIOVASCULAR: +S1/S2 RESPIRATORY: Breath sounds equal bilaterally. No accessory muscle use. GASTROINTESTINAL: Abdomen soft, non-tender, nondistended. EXTREMITIES: No cyanosis. NEUROLOGICAL: awake and alert, normal speech. Assessment/Plan Problem List: (1) Severe neutropenia ICD Codes: D70.9 - Neutropenia, unspecified Plan: --on Neupogen --Severe neutropenia with ANC of less than 500 in the setting of end-stage AIDS , disseminated MAC and CMV retinitis. --Counts are not expected to improve rapidly in the setting of infection but Neupogen may help improve neutropenia. (2) Anemia ICD Codes: D64.9 - Anemia, unspecified Plan: --Anemia with hemoglobin of 7, MCV 86.6. --likely due to bone marrow suppression with uncontrolled AIDS and disseminated MAC infection. --iron, B12 show no deficiency (3) Sepsis ICD Codes: A41.9 - Sepsis, unspecified organism Status: Acute Plan: --on multiple antibiotics including Rifampin, Biaxin, ethambutol, cefepime and Diflucan. --has been having fever of unknown origin and infectious workup is ongoing. Assessment 51y/o male with endstage AIDS with a disseminated infection who has severe neutropenia. +disseminated MAC infection, acute renal failure and CMV retinitis. --has developed end-stage renal disease and is currently getting peritoneal dialysis. Plan 1. monitor CBC 2. continue Neupogen. Attending Statement The exam, history, and the medical decision-making described in the above note were completed with the assistance of the mid-level provider. I reviewed and agree with the findings presented. I attest that I had a [id number] encounter with the patient on the same day, and personally performed and documented my assessment and findings in the medical record. WBC improving continue Neupogen anemia and thrombocytopenia stable no blood products today d/w rn o/n events reviewed Problem Qualifiers (1) Anemia: (2) Sepsis: Lynn Taylor Jan 09, 2017 10:31 Chandra Parks MD Jan 09, 2017 18:13
--- NOTE | 2017-01-09 11:57 | HHI.IDPN ---
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, on HD; S/P PD cath Notes reviewed Temps better Receiving Neupogen WBC very slow to increase, but seems to be trending up NO new complaint BC have been negative Had last HD on Monday UA ok CXR clear Last time he got Valcyte was 01/02 Voiding ok No diarrhea No respiratory complaint Vision stable No abdominal pain, no N/V No rash or itching Antibiotics I attest that I obtained, updated or reviewed the home and current medications. Rifampin Biaxin Ethambutol Cefepime Diflucan Current Medications Medications (Trade) Dose Ordered Sig/Nyla Route PRN Reason Start Time Stop Time Status Last Admin Dose Admin Acetaminophen (Tylenol) 650 mg Q4H PRN PO TEMP > 100.4 11/05/16 16:15 01/07/17 15:59 Ondansetron HCl (Zofran Inj) 4 mg Q6H PRN IVP NAUSEA OR VOMITING 11/05/16 16:15 01/06/17 19:42 Heparin Sodium (Porcine) (Heparin Inj) 5,000 units Q12H SQ 11/05/16 17:00 Future Hold 12/08/16 18:16 Senna/Docusate Sodium (Dee-Colace) 1 tab BID PO 11/05/16 21:00 01/08/17 21:09 Sodium Chloride 1,000 ml @ 0 mls/hr Q0M PRN IV For Prime & Rinse Back 11/13/16 17:02 01/03/17 11:10 Heparin Sodium (Porcine) (Heparin Inj) 8,000 units UNSCH PRN IVF WITH DIALYSIS 11/13/16 17:15 12/31/16 09:59 Albumin Human (Albumin 25% Inj) 25 gm UNSCH PRN IV WITH DIALYSIS 11/13/16 17:15 12/31/16 09:58 Sodium Chloride (NS Flush) 5 ml UNSCH PRN IV FLUSH WITH DIALYSIS 11/13/16 17:15 12/17/16 10:57 Heparin Sodium (Porcine) (Heparin Inj) UNSCH PRN .XX WITH DIALYSIS 11/13/16 17:15 01/05/17 11:54 Gentamicin Sulfate (Gentamicin (Dialysis) Inj) 20 mg UNSCH PRN IV WITH DIALYSIS 11/13/16 17:15 01/07/17 12:29 Ondansetron HCl (Zofran Inj) 4 mg UNSCH PRN IV WITH DIALYSIS 11/13/16 17:15 12/09/16 20:25 Acetaminophen (Tylenol) 650 mg UNSCH PRN PO for headach, pain, temp > 101F 11/13/16 17:15 01/03/17 21:57 Clonidine (Catapres) 0.1 mg UNSCH PRN PO for BP > 170/100 X 2 readings 11/13/16 17:15 12/08/16 13:25 Metoprolol Tartrate (Lopressor) 50 mg Q12HR PO 11/16/16 21:00 Future Hold 12/02/16 08:53 Amlodipine Besylate (Norvasc) 5 mg DAILY PO 11/19/16 12:00 Future Hold 12/02/16 08:53 Clarithromycin (Biaxin) 500 mg Q12HR PO 11/21/16 21:00 01/08/17 21:09 Heparin Sodium (Porcine) (Heparin Inj) UNSCH PRN IV FLUSH SEE PROTOCOL 11/29/16 18:15 12/06/16 10:15 Lactobacillus Acidophilus (Lactinex) 1 tab Q12HR PO 12/02/16 10:00 01/08/17 21:09 Ethambutol HCl (Myambutol) 800 mg DAILY PO 12/04/16 09:00 01/09/17 09:23 Epoetin Abel (Epogen Inj) 10,000 units UNSCH PRN IV WITH DIALYSIS 12/06/16 09:30 01/07/17 12:29 Rifampin (Rifampin) 300 mg Q12HR PO 12/09/16 21:00 01/08/17 21:09 Sodium Chloride (NS Flush) 2 ml BID IV FLUSH 12/14/16 21:00 01/09/17 09:00 Fluconazole/ Sodium Chloride 200 ml @ 100 mls/hr Q24H IV 01/04/17 15:00 01/08/17 14:00 Cefepime HCl 2000 mg/Sodium Chloride 100 ml @ 200 mls/hr Q24H IV 01/07/17 04:00 01/09/17 03:48 Filgrastim (Neupogen Inj) 480 mcg DAILY@14 SQ 01/06/17 23:15 01/08/17 14:00 Lines permacath Past Medical History HIV, for 20+years, noncompliant with medications for the past 2 months Kidney stones Allergies: Coded Allergies: No Known Allergies (Unverified , 11/05/16) Objective . Vital Signs Date Time Temp Pulse Resp B/P (MAP) Pulse Ox O2 Delivery O2 Flow Rate FiO2 01/09/17 08:00 99.1 100 18 132/85 (101) 98 01/09/17 08:00 107 01/09/17 07:15 Room Air 01/09/17 04:00 Room Air 01/09/17 04:00 98.4 107 18 126/80 (95) 100 01/09/17 00:00 Room Air 01/09/17 00:00 99.1 110 18 137/86 (103) 98 01/08/17 21:00 Room Air 01/08/17 20:00 98.8 107 20 130/79 (96) 100 01/08/17 19:55 108 01/08/17 16:00 100.3 106 20 119/77 (91) 100 01/08/17 12:00 99.2 97 18 121/77 (92) 100 . Laboratory Tests Test 01/07/17 17:15 01/08/17 10:50 White Blood Count 0.6 TH/MM3 0.9 TH/MM3 Red Blood Count 2.85 MIL/MM3 2.81 MIL/MM3 Hemoglobin 8.1 GM/DL 8.1 GM/DL Hematocrit 24.4 % 24.4 % Mean Corpuscular Volume 85.7 FL 86.7 FL Mean Corpuscular Hemoglobin 28.5 PG 28.7 PG Mean Corpuscular Hemoglobin Concent 33.3 % 33.0 % Red Cell Distribution Width 16.9 % 17.5 % Platelet Count 109 TH/MM3 107 TH/MM3 Mean Platelet Volume 9.7 FL 10.6 FL CBC Comment AUTO DIFF AUTO DIFF Differential Total Cells Counted 100 95 Neutrophils % (Manual) 17 % 38 % Band Neutrophils % 12 % 20 % Lymphocytes % 17 % 6 % Monocytes % 29 % 15 % Eosinophils % 14 % 14 % Basophils % 6 % 6 % Neutrophils # (Manual) 0.2 TH/MM3 0.5 TH/MM3 Metamyelocytes 2 % 1 % Myelocytes 1 % Promyelocytes 2 % Differential Comment FINAL DIFF MANUAL FINAL DIFF MANUAL Platelet Estimate LOW LOW Platelet Morphology Comment NORMAL ENLARGED Spherocytes OCC Ovalocytes 1+ Helmet Cells OCC Toxic Granulation 1+ Keratocytes OCC Imaging Last Impressions Renal Biopsy CT 12/01/16 0600 Signed Impressions: Service Date/Time: November 14:17 - CONCLUSION: Uncomplicated CT guided biopsy. Alexis Adhikari MD Central Venous Line 11/29/16 0000 Signed Impressions: Service Date/Time: Tuesday, November 29, 2016 00:00 - CONCLUSION: Uncomplicated catheter removal. Solitario Diaz MD Catheter Placement X-Ray 11/29/16 0000 Signed Impressions: Service Date/Time: Tuesday, November 29, 2016 13:58 - CONCLUSION: Uncomplicated PermaCath placement as above. Solitario Diaz MD Tumor Localization 11/14/16 0000 Signed Impressions: Service Date/Time: Monday, November 14, 2016 11:38 - CONCLUSION: Negative scan Solitario Diaz MD Chest X-Ray 11/13/16 0000 Signed Impressions: Service Date/Time: Sunday, November 13, 2016 16:02 - CONCLUSION: No acute cardiopulmonary disease. Quincy Medellin MD Renal Ultrasound 11/05/16 0000 Signed Impressions: Service Date/Time: Saturday, November 05, 2016 19:17 - CONCLUSION: Diffusely echogenic kidneys indicating medical renal disease. Dorian Murry MD Abdomen/Pelvis CT 11/05/16 0000 Signed Impressions: Service Date/Time: Saturday, November 05, 2016 17:19 - CONCLUSION: 1. 4 mm calculus in the right renal pelvis/ureteropelvic junction with mild adjacent perinephric/periureteral stranding. No evidence of hydronephrosis. 2. 1 cm round hypodensity in the anterior right mid kidney statistically most likely to represent a cyst. 3. 3.7 cm hypodensity in the right lobe of the liver air the dome of the diaphragm. This finding is nonspecific on noncontrast CT. The most likely etiologies include hemangioma and cyst. It could be further evaluated with ultrasound nonemergent followup MRI of the abdomen. 4. Mild dilated proximal right common iliac artery. Dorian Murry MD Physical Exam GENERAL: awake and alert, not in respiratory distress. SKIN: Warm and dry. Dry skin EYES: [place] conjunctiva. No petechia or hemorrhage. No scleral icterus. No injection or drainage. EARS, NOSE AND THROAT: Nose without bleeding or purulent nasal discharge. Mucous membranes pink and moist. White coating on tongue NECK: Trachea midline. Supple and not tender, no meningeal signs CARDIOVASCULAR: Regular rate and rhythm. No murmurs, rubs or gallops heard RESPIRATORY: Clear to auscultation. Breath sounds equal bilaterally. No rales , wheezing or rhonchi ABDOMEN: Soft, not tender, not distended, dry dressing over cath. No guarding. No rebound. No organomegaly. Has stable oblong brown non tender nodule on R lateral groin (chronic been there for years, not getting bigger) EXTREMITIES: No clubbing, cyanosis, or edema. No joint effusion, has good ROM. No calf tenderness. Well perfused and warm. BUTTOCK: Ulcers healed NEUROLOGICAL: Awake alert Non-focal PSYCHIATRIC: Normal affect, calm and cooperative. 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
[2017-01-09 12:00] VITALS: BP 122/80; PULSE 104; RESP 18; TEMP 98; O2SAT 99
[2017-01-09] MEDS: FILGRASTIM 480 MCG/1.6 ML VIAL SQ SCH (13:53)
[2017-01-09] MEDS: FLUCONAZOLE 400 MG PREMIX BAG 200 ML IV SCH (13:53)
--- NOTE | 2017-01-09 13:56 | HHI.PR ---
Subjective Remarks Follow up anemia, renal failure. Patient is refusing meds and not eating today. He does not really answer questions, but he does nod in response. Objective Vitals Vital Signs Date Time Temp Pulse Resp B/P (MAP) Pulse Ox O2 Delivery O2 Flow Rate FiO2 01/09/17 12:00 98.0 104 18 122/80 (94) 99 01/09/17 08:00 99.1 100 18 132/85 (101) 98 01/09/17 08:00 107 01/09/17 07:15 Room Air 01/09/17 04:00 Room Air 01/09/17 04:00 98.4 107 18 126/80 (95) 100 01/09/17 00:00 Room Air 01/09/17 00:00 99.1 110 18 137/86 (103) 98 01/08/17 21:00 Room Air 01/08/17 20:00 98.8 107 20 130/79 (96) 100 01/08/17 19:55 108 01/08/17 16:00 100.3 106 20 119/77 (91) 100 I/O 01/08/17 01/08/17 01/08/17 01/09/17 01/09/17 01/09/17 07:00 15:00 23:00 07:00 15:00 23:00 Intake Total 220 ml 240 ml 340 ml Balance 220 ml 240 ml 340 ml Intake Oral 120 ml 240 ml 240 ml IV Total 100 ml 100 ml # Voids 2 3 1 # Bowel Movements 1 2 2 Result Diagram: 01/08/17 1050 01/06/17 0604 Imaging Last Impressions Chest X-Ray 01/04/17 0000 Signed Impressions: Service Date/Time: Wednesday, January 04, 2017 14:55 - CONCLUSION: No acute disease. Yoni Rhoades Jr., MD Gallium Scan Nuclear Medicine 12/19/16 0000 Signed Impressions: Service Date/Time: Monday, December 19, 2016 13:19 - CONCLUSION: Negative for occult inflammatory process. Enzo Isbell MD FACR Upper Extremity Ultrasound 12/07/16 0000 Signed Impressions: Service Date/Time: Wednesday, December 07, 2016 10:11 - CONCLUSION: Venous mapping as above. Enoz Isbell MD FACR Renal Biopsy CT 12/01/16 0600 Signed Impressions: Service Date/Time: November 14:17 - CONCLUSION: Uncomplicated CT guided biopsy. Alexis Adhikari MD Central Venous Line 11/29/16 0000 Signed Impressions: Service Date/Time: Tuesday, November 29, 2016 00:00 - CONCLUSION: Uncomplicated catheter removal. Solitario Diaz MD Catheter Placement X-Ray 11/29/16 0000 Signed Impressions: Service Date/Time: Tuesday, November 29, 2016 13:58 - CONCLUSION: Uncomplicated PermaCath placement as above. Solitario Diaz MD Tumor Localization 11/14/16 0000 Signed Impressions: Service Date/Time: Monday, November 14, 2016 11:38 - CONCLUSION: Negative scan Solitario Diaz MD Renal Ultrasound 11/05/16 0000 Signed Impressions: Service Date/Time: Saturday, November 05, 2016 19:17 - CONCLUSION: Diffusely echogenic kidneys indicating medical renal disease. Dorian Murry MD Abdomen/Pelvis CT 11/05/16 0000 Signed Impressions: Service Date/Time: Saturday, November 05, 2016 17:19 - CONCLUSION: 1. 4 mm calculus in the right renal pelvis/ureteropelvic junction with mild adjacent perinephric/periureteral stranding. No evidence of hydronephrosis. 2. 1 cm round hypodensity in the anterior right mid kidney statistically most likely to represent a cyst. 3. 3.7 cm hypodensity in the right lobe of the liver air the dome of the diaphragm. This finding is nonspecific on noncontrast CT. The most likely etiologies include hemangioma and cyst. It could be further evaluated with ultrasound nonemergent followup MRI of the abdomen. 4. Mild dilated proximal right common iliac artery. Dorian Murry MD Objective Remarks General: Cachectic male in no acute distress. Heart: Regular rate and rhythm. No murmur. Lungs: Clear to auscultation bilaterally. No wheezes, rales, or rhonchi. Breathing is nonlabored. Abdomen: Soft, nontender, nondistended. Extremities: No lower extremity edema. Psych: Alert. Procedures 11/14/16 hemodialysis catheter placement, right internal jugular 12/14 PD cath placement Urinary Catheter: No Vascular Central Line Catheter: No A/P Problem List: (1) Renal failure ICD Code: N19 - Unspecified kidney failure Status: Acute (2) Sepsis ICD Code: A41.9 - Sepsis, unspecified organism Status: Acute (3) UTI (urinary tract infection) ICD Code: N39.0 - Urinary tract infection, site not specified (4) Chronic kidney disease, stage V ICD Code: N18.5 - Chronic kidney disease, stage 5 (5) HIV (human immunodeficiency virus infection) ICD Code: B20 - Human immunodeficiency virus [HIV] disease (6) Anemia ICD Code: D64.9 - Anemia, unspecified (7) Hypertension ICD Code: I10 - Essential (primary) hypertension (8) Medical non-compliance ICD Code: Z91.19 - Patient's noncompliance with other medical treatment and regimen Assessment and Plan 1. Severe sepsis secondary to UTI, pneumonia: Status post treatment with Zosyn. Patient is immunocompromised, noncompliant with HAART for 2 months prior to admission. HSV positive. 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 Blood mycobacterial culture growing acid fast organism. Further ID pending. Still having fevers. 2. Acute renal failure superimposed on chronic kidney disease stage V: Appreciate nephrology recommendations. SPEP, serology negative. Creatinine not improving. Hemodialysis per nephrology. 3. HIV/AIDS: CD4 count less than 20. Patient admitted to being noncompliant with HAART meds. He has been counseled. 4. Oral thrush: Continue nystatin. 5. Anemia: Hemoglobin stable. Received transfusion of 2 units PRBCs on 11/16/16. 6. Hypertension, tachycardia: Continue metoprolol. Heart rate improved today. 7. Buttock, perirectal wounds: HSV positive. Continue Valtrex 14 days then chronic suppression with acyclovir. 8. Neutropenia: Management per hematology. Given Neupogen. 9. DVT prophylaxis: Heparin. 10. 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 11. Poor oral intake: Patient has not had anything to eat or drink today. We'll add gentle IV fluid hydration. Problem Qualifiers (1) Renal failure: (2) Sepsis: (3) Anemia: Rod Nguyen MD Jan 09, 2017 13:56
[2017-01-09 16:00] VITALS: BP 132/77; PULSE 104; RESP 18; TEMP 98.6; O2SAT 100
[2017-01-09] MEDS: NS + KCL 20 MEQ INJ 1,000 ML IV SCH (16:12)
[2017-01-09 16:32] LABS: HEMATOCRIT 25.3 % (39.0-51.0); MEAN CELL VOLUME 87.3 FL (80.0-100.0); MEAN CORPUSCULAR HEMOGLOBIN 27.9 PG (27.0-34.0); PLATELET COUNT 114 TH/MM3 (150-450); RED BLOOD COUNT 2.89 MIL/MM3 (4.50-5.90); RED CELL DISTRIBUTION WIDTH 17.5 % (11.6-17.2); WHITE BLOOD COUNT 2.8 TH/MM3 (4.0-11.0)
[2017-01-09 16:38] LABS: HEMO FLAGS AUTO DIFF
[2017-01-09 18:12] LABS: BANDS 22 % (0-6); BASOPHILS 1 % (0-2); METAMYELOCYTES 4 % (0-1); MYELOCYTES 1 % (0-0); NEUTROPHIL # MANUAL DIFF 2.2 TH/MM3 (1.8-7.7); POLYS (SEG NEUTROPHILS) 49 % (16-70); PROMYELOCYTES 4 % (0-0); WBC DIFF SAMPLE 100
[2017-01-09 18:13] LABS: PLATELET ESTIMATE SMEAR LOW (NORMAL); PLATELET MORPHOLOGY ENLARGED (NORMAL); SCAN/DIFF FINAL DIFF MANUAL
[2017-01-09 18:14] LABS: DOHLE BODIES PRESENT (NONE SEEN)
--- NOTE | 2017-01-09 18:49 | HHI.NPPN ---
Subjective History of Present Illness 50-year-old male with past medical history of HIV disease for more than 20 years and history of renal stone who came to the hospital with complaint of back pain. The patient has back pain going on for the last 2 months off and on and he came to the emergency department yesterday with worsening pain. Additional Remarks Patient is alert, feeling weak, no SOB, tired. Review of Systems General Constitutional: Fatigue Cardiovascular Cardiac: MIRZA Objective Data Data 01/09/17 01/10/17 19:00 07:00 Intake Total 240 ml Balance 240 ml Intake Oral 240 ml # Bowel Movements 3 Vital Signs Date Time Temp Pulse Resp B/P (MAP) Pulse Ox O2 Delivery O2 Flow Rate FiO2 01/09/17 16:00 98.6 104 18 132/77 (95) 100 01/09/17 12:00 98.0 104 18 122/80 (94) 99 01/09/17 08:00 99.1 100 18 132/85 (101) 98 01/09/17 08:00 107 01/09/17 07:15 Room Air 01/09/17 04:00 Room Air 01/09/17 04:00 98.4 107 18 126/80 (95) 100 01/09/17 00:00 Room Air 01/09/17 00:00 99.1 110 18 137/86 (103) 98 01/08/17 21:00 Room Air 01/08/17 20:00 98.8 107 20 130/79 (96) 100 01/08/17 19:55 108 -: 01/09/17 1550 01/06/17 0604 Physical Exam General Appearance: No Acute Distress, Comfortable Eyes Eye Exam: Pupils Equal Throat Throat Exam: Oral Mucosa Baring & Moist Pulmonary Resp Exam: Breath Sounds Equal, No Distress, Rhonchi, Decreased Bases Cardiology CV Exam: Regular, Normal Sinus Rhythm Gastrointestinal/Abdomen GI Exam: Soft, Non-Tender, Bowel Sounds Present Extremeties Extremities Exam: No Edema Neurologic Neuro Exam: Alert, Awake, Oriented Psychiatric Psych Exam: Appropriate Responses Assessment/Plan Assessment Summary: MIKE/Acute Renal Failure Problem List: (1) Renal failure ICD Codes: N19 - Unspecified kidney failure Status: Acute (2) Sepsis ICD Codes: A41.9 - Sepsis, unspecified organism Status: Acute (3) Open wound of scrotum ICD Codes: S31.30XA - Unspecified open wound of scrotum and testes, initial encounter Status: Acute Plan c/o blurry vision left eye Remain non oliguric. SPEP was negative. Complements normal, other serology also negative. BP is better, on Metoprolol to 50 mg BID. If renal function will not improve, will consider Renal Biopsy once infection is controlled. Fever pattern is better, ID is following. Now on Bactrim, Acyclovir, Clarithromycin and Ethambutol. No improvement in renal function. Possibly has End stage renal disease. Got PermCath. 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 No need to repeat the renal Biopsy as clinically he is showing no improvement, and the with advance HIV , the treatment options are limited, cannot be given immunosuppressive drugs. He understand increase risk of infection due to advance HIV. Has PD catheter done. Now on Valganciclovir, ID following. Gallium scan is negative. HD to continue TTS. On Epogen , follow Hgb. Transfuse as needed. WBC better with Neupogen. Fever pattern is better. HD will be in AM. Problem Qualifiers (1) Renal failure: (2) Sepsis: Kwadwo Shah MD Jan 09, 2017 18:49
[2017-01-09 20:00] VITALS: BP 110/67; PULSE 104; PULSE 98; RESP 18; TEMP 98.9; O2SAT 95
[2017-01-10] VITALS (8 sets, daily range): BP systolic 95–142; BP diastolic 62–90; PULSE 97–109; RESP 18–20; TEMP 97.2–98.8; O2SAT 97–100
[2017-01-10] MEDS: CEFEPIME INJ 2,000 MG in SODIUM CHLORIDE 0.9% INJ 100 ML IV SCH (04:09)
[2017-01-10 08:39] LABS: HEMATOCRIT 23.7 % (39.0-51.0); MEAN CORPUSCULAR HEMOGLOBIN 28.5 PG (27.0-34.0); MEAN CORPUSCULAR HGB CONC 32.7 % (32.0-36.0); PLATELET COUNT 86 TH/MM3 (150-450); RED BLOOD COUNT 2.72 MIL/MM3 (4.50-5.90); WHITE BLOOD COUNT 4.2 TH/MM3 (4.0-11.0)
[2017-01-10 08:44] LABS: HEMO FLAGS AUTO DIFF
[2017-01-10 08:48] LABS: BICARBONATE 22.8 MEQ/L (21.0-32.0); POTASSIUM 3.8 MEQ/L (3.5-5.1)
[2017-01-10] MEDS: ETHAMBUTOL HCL 400 MG TAB PO SCH (09:00)
[2017-01-10 09:23] LABS: BANDS 24 % (0-6); EOSINOPHILS 2 % (0-4); METAMYELOCYTES 1 % (0-1); NEUTROPHIL # MANUAL DIFF 3.4 TH/MM3 (1.8-7.7); PLATELET ESTIMATE SMEAR LOW (NORMAL); PLATELET MORPHOLOGY NORMAL (NORMAL); POLYS (SEG NEUTROPHILS) 55 % (16-70); SCAN/DIFF FINAL DIFF MANUAL; WBC DIFF SAMPLE 100
--- NOTE | 2017-01-10 09:42 | PD.ONC.PN ---
Subjective Subjective Remarks Afebrile overnight. Patient seen in dialysis. Receiving HD. No complaints offered. Objective Data Date Time Temp Pulse Resp B/P (MAP) Pulse Ox O2 Delivery O2 Flow Rate FiO2 01/10/17 08:00 98.8 100 18 142/90 (107) 100 01/10/17 04:00 Room Air 01/10/17 04:00 97.8 97 18 134/80 (98) 100 01/10/17 00:00 Room Air 01/10/17 00:00 98.0 102 20 141/90 (107) 100 01/09/17 20:00 98.9 104 18 110/67 (81) 95 01/09/17 20:00 Room Air 01/09/17 20:00 98 01/09/17 16:00 98.6 104 18 132/77 (95) 100 01/09/17 12:00 98.0 104 18 122/80 (94) 99 01/10/17 01/10/17 01/10/17 07:00 15:00 23:00 Intake Total 150 ml Balance 150 ml Result Diagram: 01/10/17 0710 01/10/17 0710 Laboratory Results Laboratory Tests Test 01/09/17 15:50 01/10/17 07:10 White Blood Count 2.8 TH/MM3 4.2 TH/MM3 Red Blood Count 2.89 MIL/MM3 2.72 MIL/MM3 Hemoglobin 8.1 GM/DL 7.7 GM/DL Hematocrit 25.3 % 23.7 % Mean Corpuscular Volume 87.3 FL 87.0 FL Mean Corpuscular Hemoglobin 27.9 PG 28.5 PG Mean Corpuscular Hemoglobin Concent 32.0 % 32.7 % Red Cell Distribution Width 17.5 % 18.0 % Platelet Count 114 TH/MM3 86 TH/MM3 Mean Platelet Volume 9.4 FL 9.7 FL CBC Comment AUTO DIFF AUTO DIFF Differential Total Cells Counted 100 100 Neutrophils % (Manual) 49 % 55 % Band Neutrophils % 22 % 24 % Lymphocytes % 4 % 5 % Monocytes % 15 % 13 % Basophils % 1 % Neutrophils # (Manual) 2.2 TH/MM3 3.4 TH/MM3 Metamyelocytes 4 % 1 % Myelocytes 1 % Promyelocytes 4 % Differential Comment FINAL DIFF MANUAL FINAL DIFF MANUAL Dohle Bodies PRESENT Platelet Estimate LOW LOW Platelet Morphology Comment ENLARGED NORMAL Eosinophils % 2 % Blood Urea Nitrogen 50 MG/DL Creatinine 7.48 MG/DL Random Glucose 89 MG/DL Calcium Level 9.4 MG/DL Sodium Level 143 MEQ/L Potassium Level 3.8 MEQ/L Chloride Level 107 MEQ/L Carbon Dioxide Level 22.8 MEQ/L Anion Gap 13 MEQ/L Estimat Glomerular Filtration Rate 9 ML/MIN Administered Medications Medications (Trade) Dose Ordered Sig/Nyla Route PRN Reason Start Time Stop Time Status Last Admin Dose Admin Acetaminophen (Tylenol) 650 mg Q4H PRN PO TEMP > 100.4 11/05/16 16:15 01/07/17 15:59 Ondansetron HCl (Zofran Inj) 4 mg Q6H PRN IVP NAUSEA OR VOMITING 11/05/16 16:15 01/06/17 19:42 Heparin Sodium (Porcine) (Heparin Inj) 5,000 units Q12H SQ 11/05/16 17:00 Future Hold 12/08/16 18:16 Senna/Docusate Sodium (Dee-Colace) 1 tab BID PO 11/05/16 21:00 01/09/17 21:13 Sodium Chloride 1,000 ml @ 0 mls/hr Q0M PRN IV For Prime & Rinse Back 11/13/16 17:02 01/03/17 11:10 Heparin Sodium (Porcine) (Heparin Inj) 8,000 units UNSCH PRN IVF WITH DIALYSIS 11/13/16 17:15 12/31/16 09:59 Albumin Human (Albumin 25% Inj) 25 gm UNSCH PRN IV WITH DIALYSIS 11/13/16 17:15 12/31/16 09:58 Sodium Chloride (NS Flush) 5 ml UNSCH PRN IV FLUSH WITH DIALYSIS 11/13/16 17:15 12/17/16 10:57 Heparin Sodium (Porcine) (Heparin Inj) UNSCH PRN .XX WITH DIALYSIS 11/13/16 17:15 01/05/17 11:54 Gentamicin Sulfate (Gentamicin (Dialysis) Inj) 20 mg UNSCH PRN IV WITH DIALYSIS 11/13/16 17:15 01/07/17 12:29 Ondansetron HCl (Zofran Inj) 4 mg UNSCH PRN IV WITH DIALYSIS 11/13/16 17:15 12/09/16 20:25 Acetaminophen (Tylenol) 650 mg UNSCH PRN PO for headach, pain, temp > 101F 11/13/16 17:15 01/03/17 21:57 Clonidine (Catapres) 0.1 mg UNSCH PRN PO for BP > 170/100 X 2 readings 11/13/16 17:15 12/08/16 13:25 Metoprolol Tartrate (Lopressor) 50 mg Q12HR PO 11/16/16 21:00 Future Hold 12/02/16 08:53 Amlodipine Besylate (Norvasc) 5 mg DAILY PO 11/19/16 12:00 Future Hold 12/02/16 08:53 Clarithromycin (Biaxin) 500 mg Q12HR PO 11/21/16 21:00 01/09/17 21:13 Heparin Sodium (Porcine) (Heparin Inj) UNSCH PRN IV FLUSH SEE PROTOCOL 11/29/16 18:15 12/06/16 10:15 Lactobacillus Acidophilus (Lactinex) 1 tab Q12HR PO 12/02/16 10:00 01/09/17 21:13 Ethambutol HCl (Myambutol) 800 mg DAILY PO 12/04/16 09:00 01/09/17 09:23 Epoetin Abel (Epogen Inj) 10,000 units UNSCH PRN IV WITH DIALYSIS 12/06/16 09:30 01/07/17 12:29 Rifampin (Rifampin) 300 mg Q12HR PO 12/09/16 21:00 01/09/17 21:13 Sodium Chloride (NS Flush) 2 ml BID IV FLUSH 12/14/16 21:00 01/09/17 09:00 Fluconazole/ Sodium Chloride 200 ml @ 100 mls/hr Q24H IV 01/04/17 15:00 01/09/17 13:53 Cefepime HCl 2000 mg/Sodium Chloride 100 ml @ 200 mls/hr Q24H IV 01/07/17 04:00 01/10/17 04:09 Filgrastim (Neupogen Inj) 480 mcg DAILY@14 SQ 01/06/17 23:15 01/09/17 13:53 Potassium Chloride/Sodium Chloride 1,000 ml @ 42 mls/hr [id number] IV 01/09/17 15:00 01/09/17 16:12 Objective Remarks GENERAL: Chronically ill appearing male, lying supine on stretcher receiving HD. SKIN: Warm and dry. HEAD: Normocephalic. EYES: No injection or drainage. NECK: Supple, trachea midline. CARDIOVASCULAR: Regular rate and rhythm RESPIRATORY: anterior ogden clear. GASTROINTESTINAL: Abdomen soft, non-tender, nondistended. EXTREMITIES: No cyanosis Assessment/Plan Problem List: (1) Severe neutropenia ICD Codes: D70.9 - Neutropenia, unspecified Plan: --on Neupogen --counts improving. (2) Anemia ICD Codes: D64.9 - Anemia, unspecified Plan: --likely due to bone marrow suppression with uncontrolled AIDS and disseminated MAC infection. --iron, B12 show no deficiency (3) Sepsis ICD Codes: A41.9 - Sepsis, unspecified organism Status: Acute Plan: --on multiple antibiotics including Rifampin, Biaxin, ethambutol, cefepime and Diflucan. --has been having fever of unknown origin and infectious workup is ongoing. (4) Thrombocytopenia ICD Codes: D69.6 - Thrombocytopenia, unspecified Plan: --likely multifactorial d/t sepsis, drug effect, DIC, bone marrow suppression. Assessment 51y/o male with endstage AIDS with a disseminated infection who has severe neutropenia. +disseminated MAC infection, acute renal failure and CMV retinitis. --has developed end-stage renal disease and is currently getting peritoneal dialysis. Plan 1. continue Neupogen 2. monitor CBC 3. check coags Attending Statement The exam, history, and the medical decision-making described in the above note were completed with the assistance of the mid-level provider. I reviewed and agree with the findings presented. I attest that I had a [id number] encounter with the patient on the same day, and personally performed and documented my assessment and findings in the medical record. Leukopenia resolved continue Neupogen until WBC > 5 for 24 hours Hb 7.7 today d/w rn o/n events reviewed Problem Qualifiers (1) Anemia: (2) Sepsis: Lynn Taylor Jan 10, 2017 09:42 Chandra Parks MD Jan 10, 2017 23:03
[2017-01-10] MEDS: RIFAMPIN 150 MG CAP PO SCH ×2 (13:15→21:30)
[2017-01-10] MEDS: SODIUM CHLORIDE 0.9% FLUSH 10 ML FLUSH IV FLUSH SCH ×2 (13:15→21:00)
[2017-01-10] MEDS: CLARITHROMYCIN 500 MG TAB PO SCH ×2 (13:15→21:29)
[2017-01-10] MEDS: LACTOBACILLUS ACIDOPHILUS TAB PO SCH ×2 (13:15→21:29)
[2017-01-10] MEDS: DOCUSATE SODIUM 50 MG/SENNA 8.6 MG TAB PO SCH ×2 (13:15→21:00)
[2017-01-10] MEDS: FILGRASTIM 480 MCG/1.6 ML VIAL SQ SCH (14:43)
--- NOTE | 2017-01-10 16:07 | HHI.PR ---
Subjective Remarks Follow up renal failure, anemia. Patient refuses to answer questions today. No events reported by nursing. Objective Vitals Vital Signs Date Time Temp Pulse Resp B/P (MAP) Pulse Ox O2 Delivery O2 Flow Rate FiO2 01/10/17 13:29 97.7 109 18 122/86 (98) 100 01/10/17 08:00 98.8 100 18 142/90 (107) 100 01/10/17 08:00 98 01/10/17 07:18 Room Air 01/10/17 04:00 Room Air 01/10/17 04:00 97.8 97 18 134/80 (98) 100 01/10/17 00:00 Room Air 01/10/17 00:00 98.0 102 20 141/90 (107) 100 01/09/17 20:00 98.9 104 18 110/67 (81) 95 01/09/17 20:00 Room Air 01/09/17 20:00 98 01/09/17 16:00 98.6 104 18 132/77 (95) 100 I/O 01/09/17 01/09/17 01/09/17 01/10/17 01/10/17 01/10/17 07:00 15:00 23:00 07:00 15:00 23:00 Intake Total 340 ml 240 ml 150 ml Output Total 2000 ml Balance 340 ml 240 ml 150 ml -2000 ml Intake Oral 240 ml 240 ml 50 ml IV Total 100 ml 100 ml Hemodialysis 2000 ml # Voids 1 2 # Bowel Movements 2 3 1 Result Diagram: 01/10/17 0710 01/10/17 0710 Imaging Last Impressions Chest X-Ray 01/04/17 0000 Signed Impressions: Service Date/Time: Wednesday, January 04, 2017 14:55 - CONCLUSION: No acute disease. Yoni Rhoades Jr., MD Gallium Scan Nuclear Medicine 12/19/16 0000 Signed Impressions: Service Date/Time: Monday, December 19, 2016 13:19 - CONCLUSION: Negative for occult inflammatory process. Enzo Isbell MD FACR Upper Extremity Ultrasound 12/07/16 0000 Signed Impressions: Service Date/Time: Wednesday, December 07, 2016 10:11 - CONCLUSION: Venous mapping as above. Enzo Isbell MD FACR Renal Biopsy CT 12/01/16 0600 Signed Impressions: Service Date/Time: November 14:17 - CONCLUSION: Uncomplicated CT guided biopsy. Alexis Adhikari MD Central Venous Line 11/29/16 0000 Signed Impressions: Service Date/Time: Tuesday, November 29, 2016 00:00 - CONCLUSION: Uncomplicated catheter removal. Solitario Diaz MD Catheter Placement X-Ray 11/29/16 0000 Signed Impressions: Service Date/Time: Tuesday, November 29, 2016 13:58 - CONCLUSION: Uncomplicated PermaCath placement as above. Solitario Diaz MD Tumor Localization 11/14/16 0000 Signed Impressions: Service Date/Time: Monday, November 14, 2016 11:38 - CONCLUSION: Negative scan Solitario Diaz MD Renal Ultrasound 11/05/16 0000 Signed Impressions: Service Date/Time: Saturday, November 05, 2016 19:17 - CONCLUSION: Diffusely echogenic kidneys indicating medical renal disease. Dorian Murry MD Abdomen/Pelvis CT 11/05/16 0000 Signed Impressions: Service Date/Time: Saturday, November 05, 2016 17:19 - CONCLUSION: 1. 4 mm calculus in the right renal pelvis/ureteropelvic junction with mild adjacent perinephric/periureteral stranding. No evidence of hydronephrosis. 2. 1 cm round hypodensity in the anterior right mid kidney statistically most likely to represent a cyst. 3. 3.7 cm hypodensity in the right lobe of the liver air the dome of the diaphragm. This finding is nonspecific on noncontrast CT. The most likely etiologies include hemangioma and cyst. It could be further evaluated with ultrasound nonemergent followup MRI of the abdomen. 4. Mild dilated proximal right common iliac artery. Dorian Murry MD Objective Remarks General: Cachectic male in no acute distress. Heart: Regular rate and rhythm. No murmur. Lungs: Clear to auscultation bilaterally. No wheezes, rales, or rhonchi. Breathing is nonlabored. Abdomen: Soft, nontender, nondistended. Extremities: No lower extremity edema. Psych: Alert. Refuses to answer questions. Procedures 11/14/16 hemodialysis catheter placement, right internal jugular 12/14 PD cath placement Urinary Catheter: No Vascular Central Line Catheter: No A/P Problem List: (1) Renal failure ICD Code: N19 - Unspecified kidney failure Status: Acute (2) Sepsis ICD Code: A41.9 - Sepsis, unspecified organism Status: Acute (3) UTI (urinary tract infection) ICD Code: N39.0 - Urinary tract infection, site not specified (4) Chronic kidney disease, stage V ICD Code: N18.5 - Chronic kidney disease, stage 5 (5) HIV (human immunodeficiency virus infection) ICD Code: B20 - Human immunodeficiency virus [HIV] disease (6) Anemia ICD Code: D64.9 - Anemia, unspecified (7) Hypertension ICD Code: I10 - Essential (primary) hypertension (8) Medical non-compliance ICD Code: Z91.19 - Patient's noncompliance with other medical treatment and regimen Assessment and Plan 1. Severe sepsis secondary to UTI, pneumonia: Status post treatment with Zosyn. Patient is immunocompromised, noncompliant with HAART for 2 months prior to admission. HSV positive. 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 Blood mycobacterial culture growing acid fast organism. Further ID pending. Still having fevers. 2. Acute renal failure superimposed on chronic kidney disease stage V: Appreciate nephrology recommendations. SPEP, serology negative. Creatinine not improving. Hemodialysis per nephrology. 3. HIV/AIDS: CD4 count less than 20. Patient admitted to being noncompliant with HAART meds. He has been counseled. 4. Oral thrush: Continue nystatin. 5. Anemia: Hemoglobin trending down again. Monitor H/H. Received transfusion 1 unit PRBCs on 12/08/16. He has received 7 units total during this hospitalization. 6. Hypertension, tachycardia: Continue metoprolol. 7. Buttock, perirectal wounds: HSV positive. Continue Valtrex 14 days then chronic suppression with acyclovir. 8. Neutropenia: Management per hematology. Given Neupogen. 9. DVT prophylaxis: Heparin. 10. 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 11. Poor oral intake: Continue gentle IV fluid hydration. Discharge Planning Pending further clinical improvement. Problem Qualifiers (1) Renal failure: (2) Sepsis: (3) Anemia: Rod Nguyen MD Jan 10, 2017 16:07
--- NOTE | 2017-01-10 17:27 | HHI.NPPN ---
Subjective History of Present Illness 50-year-old male with past medical history of HIV disease for more than 20 years and history of renal stone who came to the hospital with complaint of back pain. The patient has back pain going on for the last 2 months off and on and he came to the emergency department yesterday with worsening pain. Additional Remarks Patient is sleepy , feeling weak, not answering most of the questions. Review of Systems General Constitutional: Fatigue Cardiovascular Cardiac: MIRZA Objective Data Data 01/10/17 01/11/17 19:00 07:00 Intake Total 120 ml Output Total 2000 ml Balance -1880 ml Intake Oral 120 ml Hemodialysis 2000 ml # Voids 1 # Bowel Movements 1 Vital Signs Date Time Temp Pulse Resp B/P (MAP) Pulse Ox O2 Delivery O2 Flow Rate FiO2 01/10/17 16:00 97.2 101 18 119/75 (90) 100 01/10/17 13:29 97.7 109 18 122/86 (98) 100 01/10/17 08:00 98.8 100 18 142/90 (107) 100 01/10/17 08:00 98 01/10/17 07:18 Room Air 01/10/17 04:00 Room Air 01/10/17 04:00 97.8 97 18 134/80 (98) 100 01/10/17 00:00 Room Air 01/10/17 00:00 98.0 102 20 141/90 (107) 100 01/09/17 20:00 98.9 104 18 110/67 (81) 95 01/09/17 20:00 Room Air 01/09/17 20:00 98 -: 01/10/17 0710 01/10/17 0710 Physical Exam General Appearance: No Acute Distress, Comfortable Eyes Eye Exam: Pupils Equal Throat Throat Exam: Oral Mucosa [place] & Moist Pulmonary Resp Exam: Breath Sounds Equal, No Distress, Rhonchi, Decreased Bases Cardiology CV Exam: Regular, Normal Sinus Rhythm Gastrointestinal/Abdomen GI Exam: Soft, Non-Tender, Bowel Sounds Present Extremeties Extremities Exam: No Edema Neurologic Neuro Exam: Alert, Awake, Oriented Psychiatric Psych Exam: Appropriate Responses Assessment/Plan Assessment Summary: MIKE/Acute Renal Failure Problem List: (1) Renal failure ICD Codes: N19 - Unspecified kidney failure Status: Acute (2) Sepsis ICD Codes: A41.9 - Sepsis, unspecified organism Status: Acute (3) Open wound of scrotum ICD Codes: S31.30XA - Unspecified open wound of scrotum and testes, initial encounter Status: Acute Plan c/o blurry vision left eye Remain non oliguric. SPEP was negative. Complements normal, other serology also negative. BP is better, on Metoprolol to 50 mg BID. If renal function will not improve, will consider Renal Biopsy once infection is controlled. Fever pattern is better, ID is following. Now on Bactrim, Acyclovir, Clarithromycin and Ethambutol. No improvement in renal function. Possibly has End stage renal disease. Got PermCath. 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 No need to repeat the renal Biopsy as clinically he is showing no improvement, and the with advance HIV , the treatment options are limited, cannot be given immunosuppressive drugs. He understand increase risk of infection due to advance HIV. Has PD catheter done. Now on Valganciclovir, ID following. Gallium scan is negative. HD to continue TTS. On Epogen , follow Hgb. Transfuse as needed. WBC better with Neupogen. Now afebrile. HD done and 2 liters removed. Problem Qualifiers (1) Renal failure: (2) Sepsis: Kwadwo Shah MD Jan 10, 2017 17:27
[2017-01-10] MEDS: NS + KCL 20 MEQ INJ 1,000 ML IV SCH (18:25)
[2017-01-10 19:02] LABS: APTT (PATIENT) 35.9 SEC (24.3-30.1); INTERNATIONAL NORMALIZED RATIO 1.2 RATIO; PROTHROMBIN TIME - PATIENT 13.2 SEC (9.8-11.6)
[2017-01-11] VITALS (9 sets, daily range): BP systolic 114–144; BP diastolic 68–92; PULSE 100–103; RESP 18–19; TEMP 98.3–99; O2SAT 99–100
[2017-01-11 06:57] LABS: HEMATOCRIT 26.1 % (39.0-51.0); MEAN CELL VOLUME 86.8 FL (80.0-100.0); MEAN CORPUSCULAR HGB CONC 32.3 % (32.0-36.0); PLATELET COUNT 95 TH/MM3 (150-450); RED BLOOD COUNT 3.01 MIL/MM3 (4.50-5.90); RED CELL DISTRIBUTION WIDTH 17.7 % (11.6-17.2)
[2017-01-11 06:58] LABS: HEMO FLAGS AUTO DIFF
[2017-01-11 07:07] LABS: POTASSIUM 3.8 MEQ/L (3.5-5.1)
[2017-01-11 08:34] LABS: BANDS 20 % (0-6); EOSINOPHILS 3 % (0-4); METAMYELOCYTES 4 % (0-1); MYELOCYTES 2 % (0-0); NEUTROPHIL # MANUAL DIFF 6.2 TH/MM3 (1.8-7.7); POLYS (SEG NEUTROPHILS) 52 % (16-70); WBC DIFF SAMPLE 100
[2017-01-11 08:35] LABS: TOXIC GRANULATION 2+ (NORMAL)
[2017-01-11 08:37] LABS: DOHLE BODIES PRESENT (NONE SEEN); PLATELET ESTIMATE SMEAR LOW (NORMAL)
[2017-01-11 08:38] LABS: PLATELET MORPHOLOGY NORMAL (NORMAL); SCAN/DIFF FINAL DIFF MANUAL
[2017-01-11] MEDS: LACTOBACILLUS ACIDOPHILUS TAB PO SCH ×3 (09:23→20:06)
[2017-01-11] MEDS: CLARITHROMYCIN 500 MG TAB PO SCH ×3 (09:23→20:06)
[2017-01-11] MEDS: ETHAMBUTOL HCL 400 MG TAB PO SCH (09:23)
[2017-01-11] MEDS: DOCUSATE SODIUM 50 MG/SENNA 8.6 MG TAB PO SCH ×2 (09:23→20:01)
[2017-01-11] MEDS: RIFAMPIN 150 MG CAP PO SCH ×3 (09:23→20:06)
[2017-01-11] MEDS: SODIUM CHLORIDE 0.9% FLUSH 10 ML FLUSH IV FLUSH SCH ×2 (09:24→20:01)
--- NOTE | 2017-01-11 10:16 | HHI.IDPN ---
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, on HD; S/P PD cath Notes reviewed D/W RN Temps better WBC now back to normal PO intake has been fair Some days he refused meds He is not talking to me today - usually very conversant with me ?some trouble finding words Does nod or shake his head when questioned Follows all commands No JEAN, no other complaints Had HD yesterday Off Cefepime and Diflucan Antibiotics I attest that I obtained, updated or reviewed the home and current medications. Rifampin Biaxin Ethambutol Current Medications Medications (Trade) Dose Ordered Sig/Nyla Route PRN Reason Start Time Stop Time Status Last Admin Dose Admin Acetaminophen (Tylenol) 650 mg Q4H PRN PO TEMP > 100.4 11/05/16 16:15 01/07/17 15:59 Ondansetron HCl (Zofran Inj) 4 mg Q6H PRN IVP NAUSEA OR VOMITING 11/05/16 16:15 01/06/17 19:42 Heparin Sodium (Porcine) (Heparin Inj) 5,000 units Q12H SQ 11/05/16 17:00 Future Hold 12/08/16 18:16 Senna/Docusate Sodium (Dee-Colace) 1 tab BID PO 11/05/16 21:00 01/11/17 09:23 Sodium Chloride 1,000 ml @ 0 mls/hr Q0M PRN IV For Prime & Rinse Back 11/13/16 17:02 01/03/17 11:10 Heparin Sodium (Porcine) (Heparin Inj) 8,000 units UNSCH PRN IVF WITH DIALYSIS 11/13/16 17:15 12/31/16 09:59 Albumin Human (Albumin 25% Inj) 25 gm UNSCH PRN IV WITH DIALYSIS 11/13/16 17:15 12/31/16 09:58 Sodium Chloride (NS Flush) 5 ml UNSCH PRN IV FLUSH WITH DIALYSIS 11/13/16 17:15 12/17/16 10:57 Heparin Sodium (Porcine) (Heparin Inj) UNSCH PRN .XX WITH DIALYSIS 11/13/16 17:15 01/05/17 11:54 Gentamicin Sulfate (Gentamicin (Dialysis) Inj) 20 mg UNSCH PRN IV WITH DIALYSIS 11/13/16 17:15 01/07/17 12:29 Ondansetron HCl (Zofran Inj) 4 mg UNSCH PRN IV WITH DIALYSIS 11/13/16 17:15 12/09/16 20:25 Acetaminophen (Tylenol) 650 mg UNSCH PRN PO for headach, pain, temp > 101F 11/13/16 17:15 01/03/17 21:57 Clonidine (Catapres) 0.1 mg UNSCH PRN PO for BP > 170/100 X 2 readings 11/13/16 17:15 12/08/16 13:25 Metoprolol Tartrate (Lopressor) 50 mg Q12HR PO 11/16/16 21:00 Future Hold 12/02/16 08:53 Amlodipine Besylate (Norvasc) 5 mg DAILY PO 11/19/16 12:00 Future Hold 12/02/16 08:53 Clarithromycin (Biaxin) 500 mg Q12HR PO 11/21/16 21:00 01/11/17 09:23 Heparin Sodium (Porcine) (Heparin Inj) UNSCH PRN IV FLUSH SEE PROTOCOL 11/29/16 18:15 12/06/16 10:15 Lactobacillus Acidophilus (Lactinex) 1 tab Q12HR PO 12/02/16 10:00 01/11/17 09:23 Ethambutol HCl (Myambutol) 800 mg DAILY PO 12/04/16 09:00 01/11/17 09:23 Epoetin Abel (Epogen Inj) 10,000 units UNSCH PRN IV WITH DIALYSIS 12/06/16 09:30 01/07/17 12:29 Rifampin (Rifampin) 300 mg Q12HR PO 12/09/16 21:00 01/11/17 09:23 Sodium Chloride (NS Flush) 2 ml BID IV FLUSH 12/14/16 21:00 01/11/17 09:24 Filgrastim (Neupogen Inj) 480 mcg DAILY@14 SQ 01/06/17 23:15 01/10/17 14:43 Potassium Chloride/Sodium Chloride 1,000 ml @ 42 mls/hr [id number] IV 01/09/17 15:00 01/10/17 18:25 Lines permacath Past Medical History HIV, for 20+years, noncompliant with medications for the past 2 months Kidney stones Allergies: Coded Allergies: No Known Allergies (Unverified , 11/05/16) Objective . Vital Signs Date Time Temp Pulse Resp B/P (MAP) Pulse Ox O2 Delivery O2 Flow Rate FiO2 01/11/17 08:01 98.3 103 18 134/85 (101) 100 01/11/17 06:22 99.0 102 18 114/68 (83) 99 01/11/17 00:11 98.5 102 18 124/80 (95) 100 01/11/17 00:00 98.5 102 19 124/80 (95) 100 01/10/17 22:00 97 01/10/17 22:00 Room Air 01/10/17 19:49 97.5 102 18 121/71 (88) 99 01/10/17 19:31 97.5 102 18 121/71 (88) 99 01/10/17 16:00 97.2 101 18 119/75 (90) 100 01/10/17 16:00 98.0 98 18 95/62 (73) 97 01/10/17 13:29 97.7 109 18 122/86 (98) 100 . Laboratory Tests Test 01/09/17 15:50 01/10/17 07:10 01/11/17 05:59 White Blood Count 2.8 TH/MM3 4.2 TH/MM3 8.0 TH/MM3 Red Blood Count 2.89 MIL/MM3 2.72 MIL/MM3 3.01 MIL/MM3 Hemoglobin 8.1 GM/DL 7.7 GM/DL 8.4 GM/DL Hematocrit 25.3 % 23.7 % 26.1 % Mean Corpuscular Volume 87.3 FL 87.0 FL 86.8 FL Mean Corpuscular Hemoglobin 27.9 PG 28.5 PG 28.0 PG Mean Corpuscular Hemoglobin Concent 32.0 % 32.7 % 32.3 % Red Cell Distribution Width 17.5 % 18.0 % 17.7 % Platelet Count 114 TH/MM3 86 TH/MM3 95 TH/MM3 Mean Platelet Volume 9.4 FL 9.7 FL 9.9 FL CBC Comment AUTO DIFF AUTO DIFF AUTO DIFF Differential Total Cells Counted 100 100 100 Neutrophils % (Manual) 49 % 55 % 52 % Band Neutrophils % 22 % 24 % 20 % Lymphocytes % 4 % 5 % 5 % Monocytes % 15 % 13 % 14 % Basophils % 1 % Neutrophils # (Manual) 2.2 TH/MM3 3.4 TH/MM3 6.2 TH/MM3 Metamyelocytes 4 % 1 % 4 % Myelocytes 1 % 2 % Promyelocytes 4 % Differential Comment FINAL DIFF MANUAL FINAL DIFF MANUAL FINAL DIFF MANUAL Dohle Bodies PRESENT PRESENT Platelet Estimate LOW LOW LOW Platelet Morphology Comment ENLARGED NORMAL NORMAL Eosinophils % 2 % 3 % Toxic Granulation 2+ Laboratory Tests Test 01/10/17 07:10 01/11/17 05:59 Blood Urea Nitrogen 50 MG/DL 33 MG/DL Creatinine 7.48 MG/DL 5.45 MG/DL Random Glucose 89 MG/DL 78 MG/DL Calcium Level 9.4 MG/DL 9.5 MG/DL Sodium Level 143 MEQ/L 140 MEQ/L Potassium Level 3.8 MEQ/L 3.8 MEQ/L Chloride Level 107 MEQ/L 102 MEQ/L Carbon Dioxide Level 22.8 MEQ/L 28.0 MEQ/L Anion Gap 13 MEQ/L 10 MEQ/L Estimat Glomerular Filtration Rate 9 ML/MIN 13 ML/MIN Imaging Last Impressions Renal Biopsy CT 12/01/16 0600 Signed Impressions: Service Date/Time: November 14:17 - CONCLUSION: Uncomplicated CT guided biopsy. Alexis Adhikari MD Central Venous Line 11/29/16 0000 Signed Impressions: Service Date/Time: Tuesday, November 29, 2016 00:00 - CONCLUSION: Uncomplicated catheter removal. Solitario Diaz MD Catheter Placement X-Ray 11/29/16 0000 Signed Impressions: Service Date/Time: Tuesday, November 29, 2016 13:58 - CONCLUSION: Uncomplicated PermaCath placement as above. Solitario Diaz MD Tumor Localization 11/14/16 0000 Signed Impressions: Service Date/Time: Monday, November 14, 2016 11:38 - CONCLUSION: Negative scan Solitario Diaz MD Chest X-Ray 11/13/16 0000 Signed Impressions: Service Date/Time: Sunday, November 13, 2016 16:02 - CONCLUSION: No acute cardiopulmonary disease. Quincy Medellin MD Renal Ultrasound 11/05/16 0000 Signed Impressions: Service Date/Time: Saturday, November 05, 2016 19:17 - CONCLUSION: Diffusely echogenic kidneys indicating medical renal disease. Dorian Murry MD Abdomen/Pelvis CT 11/05/16 0000 Signed Impressions: Service Date/Time: Saturday, November 05, 2016 17:19 - CONCLUSION: 1. 4 mm calculus in the right renal pelvis/ureteropelvic junction with mild adjacent perinephric/periureteral stranding. No evidence of hydronephrosis. 2. 1 cm round hypodensity in the anterior right mid kidney statistically most likely to represent a cyst. 3. 3.7 cm hypodensity in the right lobe of the liver air the dome of the diaphragm. This finding is nonspecific on noncontrast CT. The most likely etiologies include hemangioma and cyst. It could be further evaluated with ultrasound nonemergent followup MRI of the abdomen. 4. Mild dilated proximal right common iliac artery. Dorian Murry MD Physical Exam GENERAL: awake, following commands, not talking, not in respiratory distress. Seems to have trouble finding words, frequent blinking of his eyes SKIN: Warm and dry. Dry skin EYES: [place] conjunctiva. No petechia or hemorrhage. No scleral icterus. No injection or drainage. EARS, NOSE AND THROAT: Nose without bleeding or purulent nasal discharge. Mucous membranes pink and moist. White coating on tongue NECK: Trachea midline. Supple and not tender, no meningeal signs CARDIOVASCULAR: Regular rate and rhythm. No murmurs, rubs or gallops heard RESPIRATORY: Clear to auscultation. Breath sounds equal bilaterally. No rales , wheezing or rhonchi ABDOMEN: Soft, not tender, not distended, dry dressing over cath. No guarding. No rebound. No organomegaly. Has stable oblong brown non tender nodule on R lateral groin (chronic been there for years, not getting bigger) EXTREMITIES: No clubbing, cyanosis, or edema. No joint effusion, has good ROM. No calf tenderness. Well perfused and warm. BUTTOCK: Ulcers healed NEUROLOGICAL: Awake alert Non-focal except that he is not speaking PSYCHIATRIC: Normal affect, calm and cooperative. 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
--- NOTE | 2017-01-11 13:32 | PD.ONC.PN ---
Subjective Subjective Remarks Afebrile overnight. Patient resting in room in nad. No complaints. Objective Data Date Time Temp Pulse Resp B/P (MAP) Pulse Ox O2 Delivery O2 Flow Rate FiO2 01/11/17 08:01 98.3 103 18 134/85 (101) 100 01/11/17 08:00 Room Air 01/11/17 06:22 99.0 102 18 114/68 (83) 99 01/11/17 00:11 98.5 102 18 124/80 (95) 100 01/11/17 00:00 98.5 102 19 124/80 (95) 100 01/10/17 22:00 97 01/10/17 22:00 Room Air 01/10/17 19:49 97.5 102 18 121/71 (88) 99 01/10/17 19:31 97.5 102 18 121/71 (88) 99 01/10/17 16:00 97.2 101 18 119/75 (90) 100 01/10/17 16:00 98.0 98 18 95/62 (73) 97 01/11/17 01/11/17 01/11/17 06:59 14:59 22:59 Intake Total 481 ml Balance 481 ml Result Diagram: 01/11/17 0559 01/11/17 0559 Laboratory Results Laboratory Tests Test 01/10/17 17:17 01/11/17 05:59 Prothrombin Time 13.2 SEC Prothromb Time International Ratio 1.2 RATIO Activated Partial Thromboplast Time 35.9 SEC Fibrinogen 593 mg/dL D-Dimer Quantitative (PE/DVT) 2.46 MG/L FEU White Blood Count 8.0 TH/MM3 Red Blood Count 3.01 MIL/MM3 Hemoglobin 8.4 GM/DL Hematocrit 26.1 % Mean Corpuscular Volume 86.8 FL Mean Corpuscular Hemoglobin 28.0 PG Mean Corpuscular Hemoglobin Concent 32.3 % Red Cell Distribution Width 17.7 % Platelet Count 95 TH/MM3 Mean Platelet Volume 9.9 FL CBC Comment AUTO DIFF Differential Total Cells Counted 100 Neutrophils % (Manual) 52 % Band Neutrophils % 20 % Lymphocytes % 5 % Monocytes % 14 % Eosinophils % 3 % Neutrophils # (Manual) 6.2 TH/MM3 Metamyelocytes 4 % Myelocytes 2 % Differential Comment FINAL DIFF MANUAL Toxic Granulation 2+ Dohle Bodies PRESENT Platelet Estimate LOW Platelet Morphology Comment NORMAL Blood Urea Nitrogen 33 MG/DL Creatinine 5.45 MG/DL Random Glucose 78 MG/DL Calcium Level 9.5 MG/DL Sodium Level 140 MEQ/L Potassium Level 3.8 MEQ/L Chloride Level 102 MEQ/L Carbon Dioxide Level 28.0 MEQ/L Anion Gap 10 MEQ/L Estimat Glomerular Filtration Rate 13 ML/MIN Administered Medications Medications (Trade) Dose Ordered Sig/Nyla Route PRN Reason Start Time Stop Time Status Last Admin Dose Admin Acetaminophen (Tylenol) 650 mg Q4H PRN PO TEMP > 100.4 11/05/16 16:15 01/07/17 15:59 Ondansetron HCl (Zofran Inj) 4 mg Q6H PRN IVP NAUSEA OR VOMITING 11/05/16 16:15 01/06/17 19:42 Heparin Sodium (Porcine) (Heparin Inj) 5,000 units Q12H SQ 11/05/16 17:00 Future Hold 12/08/16 18:16 Senna/Docusate Sodium (Dee-Colace) 1 tab BID PO 11/05/16 21:00 01/11/17 09:23 Sodium Chloride 1,000 ml @ 0 mls/hr Q0M PRN IV For Prime & Rinse Back 11/13/16 17:02 01/03/17 11:10 Heparin Sodium (Porcine) (Heparin Inj) 8,000 units UNSCH PRN IVF WITH DIALYSIS 11/13/16 17:15 12/31/16 09:59 Albumin Human (Albumin 25% Inj) 25 gm UNSCH PRN IV WITH DIALYSIS 11/13/16 17:15 12/31/16 09:58 Sodium Chloride (NS Flush) 5 ml UNSCH PRN IV FLUSH WITH DIALYSIS 11/13/16 17:15 12/17/16 10:57 Heparin Sodium (Porcine) (Heparin Inj) UNSCH PRN .XX WITH DIALYSIS 11/13/16 17:15 01/05/17 11:54 Gentamicin Sulfate (Gentamicin (Dialysis) Inj) 20 mg UNSCH PRN IV WITH DIALYSIS 11/13/16 17:15 01/07/17 12:29 Ondansetron HCl (Zofran Inj) 4 mg UNSCH PRN IV WITH DIALYSIS 11/13/16 17:15 12/09/16 20:25 Acetaminophen (Tylenol) 650 mg UNSCH PRN PO for headach, pain, temp > 101F 11/13/16 17:15 01/03/17 21:57 Clonidine (Catapres) 0.1 mg UNSCH PRN PO for BP > 170/100 X 2 readings 11/13/16 17:15 12/08/16 13:25 Metoprolol Tartrate (Lopressor) 50 mg Q12HR PO 11/16/16 21:00 Future Hold 12/02/16 08:53 Amlodipine Besylate (Norvasc) 5 mg DAILY PO 11/19/16 12:00 Future Hold 12/02/16 08:53 Clarithromycin (Biaxin) 500 mg Q12HR PO 11/21/16 21:00 01/11/17 09:23 Heparin Sodium (Porcine) (Heparin Inj) UNSCH PRN IV FLUSH SEE PROTOCOL 11/29/16 18:15 12/06/16 10:15 Lactobacillus Acidophilus (Lactinex) 1 tab Q12HR PO 12/02/16 10:00 01/11/17 09:23 Ethambutol HCl (Myambutol) 800 mg DAILY PO 12/04/16 09:00 01/11/17 09:23 Epoetin Abel (Epogen Inj) 10,000 units UNSCH PRN IV WITH DIALYSIS 12/06/16 09:30 01/07/17 12:29 Rifampin (Rifampin) 300 mg Q12HR PO 12/09/16 21:00 01/11/17 09:23 Sodium Chloride (NS Flush) 2 ml BID IV FLUSH 12/14/16 21:00 01/11/17 09:24 Filgrastim (Neupogen Inj) 480 mcg DAILY@14 SQ 01/06/17 23:15 01/10/17 14:43 Potassium Chloride/Sodium Chloride 1,000 ml @ 42 mls/hr [id number] IV 01/09/17 15:00 01/10/17 18:25 Objective Remarks GENERAL: Middle aged male supine in bed SKIN: Warm and dry. HEAD: Normocephalic. EYES: No injection or drainage. NECK: Supple, trachea midline. CARDIOVASCULAR: Regular rate and rhythm RESPIRATORY: anterior [place] clear. GASTROINTESTINAL: Abdomen soft, non-tender, nondistended. EXTREMITIES: No cyanosis NEUROLOGICAL: awake and alert. moving extremities. Assessment/Plan Problem List: (1) Anemia ICD Codes: D64.9 - Anemia, unspecified Plan: --likely due to bone marrow suppression with uncontrolled AIDS and disseminated MAC infection. --iron, B12 show no deficiency (2) Sepsis ICD Codes: A41.9 - Sepsis, unspecified organism Status: Acute Plan: --on multiple antibiotics including Rifampin, Biaxin, ethambutol, cefepime and Diflucan. --has been having fever of unknown origin and infectious workup is ongoing. (3) Thrombocytopenia ICD Codes: D69.6 - Thrombocytopenia, unspecified Plan: --likely multifactorial d/t sepsis, drug effect, DIC, bone marrow suppression. (4) Severe neutropenia ICD Codes: D70.9 - Neutropenia, unspecified Status: Resolved Plan: --on Neupogen --counts improving. Assessment 51y/o male with endstage AIDS with a disseminated infection who has severe neutropenia. +disseminated MAC infection, acute renal failure and CMV retinitis. --has developed end-stage renal disease and is currently getting peritoneal dialysis. Plan 1. continue Neupogen 2. monitor CBC Attending Statement The exam, history, and the medical decision-making described in the above note were completed with the assistance of the mid-level provider. I reviewed and agree with the findings presented. I attest that I had a [id number] encounter with the patient on the same day, and personally performed and documented my assessment and findings in the medical record. continue current care stop Neupogen tomorrow Problem Qualifiers (1) Anemia: (2) Sepsis: Lynn Taylor Jan 11, 2017 13:32 Chandra Parks MD Jan 12, 2017 00:38
--- NOTE | 2017-01-11 14:20 | HHI.PR ---
Subjective Remarks Patient resting in bed not very communicative, he waved with his had denying any chest pain short of breath no nausea or vomiting afebrile overnight I discussed with Dr. Llamas she reported that he looks changed in his behavior and mental status today comparing to the previous days Objective Vitals Vital Signs Date Time Temp Pulse Resp B/P (MAP) Pulse Ox O2 Delivery O2 Flow Rate FiO2 01/11/17 08:01 98.3 103 18 134/85 (101) 100 01/11/17 08:00 Room Air 01/11/17 06:22 99.0 102 18 114/68 (83) 99 01/11/17 00:11 98.5 102 18 124/80 (95) 100 01/11/17 00:00 98.5 102 19 124/80 (95) 100 01/10/17 22:00 97 01/10/17 22:00 Room Air 01/10/17 19:49 97.5 102 18 121/71 (88) 99 01/10/17 19:31 97.5 102 18 121/71 (88) 99 01/10/17 16:00 97.2 101 18 119/75 (90) 100 01/10/17 16:00 98.0 98 18 95/62 (73) 97 I/O 01/10/17 01/10/17 01/10/17 01/11/17 01/11/17 01/11/17 07:00 15:00 23:00 07:00 15:00 23:00 Intake Total 150 ml 120 ml 481 ml Output Total 2000 ml Balance 150 ml -2000 ml 120 ml 481 ml Intake Oral 50 ml 120 ml IV Total 100 ml 481 ml Hemodialysis 2000 ml # Voids 2 1 3 # Bowel Movements 1 1 1 Result Diagram: 01/11/1759 01/11/17 0559 Objective Remarks - GENERAL: This is a well-nourished, well-developed patient, in no apparent distress. SKIN: No rashes, warm and dry HEAD: Atraumatic. Normocephalic. EYES: Pupils equal round and reactive. Extraocular motions intact. No scleral icterus. ENT: Nose without bleeding, or drainage, Airway patent. NECK: Trachea midline. Supple CARDIOVASCULAR: Regular rate and rhythm without murmurs, gallops, or rubs. RESPIRATORY: Fair air entry bilaterally. No wheezes, rales, or rhonchi. GASTROINTESTINAL: Abdomen soft, non-tender, nondistended. Positive bowel sounds MUSCULOSKELETAL: Extremities without clubbing, cyanosis, or edema. Pedal pulses appreciated NEUROLOGICAL: Awake and alert noncommunicative, moves all extremity. Not able to assess speech due to patient not answering question Procedures 11/14/16 hemodialysis catheter placement, right internal jugular 12/14 PD cath placement A/P Problem List: (1) Renal failure ICD Code: N19 - Unspecified kidney failure Status: Acute (2) Sepsis ICD Code: A41.9 - Sepsis, unspecified organism Status: Acute (3) UTI (urinary tract infection) ICD Code: N39.0 - Urinary tract infection, site not specified (4) Chronic kidney disease, stage V ICD Code: N18.5 - Chronic kidney disease, stage 5 (5) HIV (human immunodeficiency virus infection) ICD Code: B20 - Human immunodeficiency virus [HIV] disease (6) Anemia ICD Code: D64.9 - Anemia, unspecified (7) Hypertension ICD Code: I10 - Essential (primary) hypertension (8) Medical non-compliance ICD Code: Z91.19 - Patient's noncompliance with other medical treatment and regimen Assessment and Plan 01/11: Slight change in mental status, discussed with ID who more appreciate that changes since this is my first time seeing the patient. We will continue continue current management and monitor neurochecks A/P: 1. Severe sepsis secondary to UTI, pneumonia: Status post treatment with Zosyn. Patient is immunocompromised, noncompliant with HAART for 2 months prior to admission. HSV positive. 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 Blood mycobacterial culture growing acid fast organism. Further ID pending. Still having fevers. 2. Acute renal failure superimposed on chronic kidney disease stage V: Appreciate nephrology recommendations. SPEP, serology negative. Creatinine not improving. Hemodialysis per nephrology. 3. HIV/AIDS: CD4 count less than 20. Patient admitted to being noncompliant with HAART meds. He has been counseled. 4. Oral thrush: Continue nystatin. 5. Anemia: Hemoglobin trending down again. Monitor H/H. Received transfusion 1 unit PRBCs on 12/08/16. He has received 7 units total during this hospitalization. 6. Hypertension, tachycardia: Continue metoprolol. 7. Buttock, perirectal wounds: HSV positive. Continue Valtrex 14 days then chronic suppression with acyclovir. 8. Neutropenia: Management per hematology. Given Neupogen. 9. DVT prophylaxis: Heparin. 10. 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 11. Poor oral intake: Continue gentle IV fluid hydration. Problem Qualifiers (1) Renal failure: (2) Sepsis: (3) Anemia: Maggy Cordero MD Jan 11, 2017 14:20
--- NOTE | 2017-01-11 17:21 | HHI.NPPN ---
Subjective History of Present Illness 50-year-old male with past medical history of HIV disease for more than 20 years and history of renal stone who came to the hospital with complaint of back pain. The patient has back pain going on for the last 2 months off and on and he came to the emergency department yesterday with worsening pain. Additional Remarks Patient is sleepy , feeling weak, off and on sleepy. Review of Systems General Constitutional: Fatigue Cardiovascular Cardiac: MIRZA Objective Data Data Vital Signs Date Time Temp Pulse Resp B/P (MAP) Pulse Ox O2 Delivery O2 Flow Rate FiO2 01/11/17 08:03 101 01/11/17 08:01 98.3 103 18 134/85 (101) 100 01/11/17 08:00 Room Air 01/11/17 06:22 99.0 102 18 114/68 (83) 99 01/11/17 00:11 98.5 102 18 124/80 (95) 100 01/11/17 00:00 98.5 102 19 124/80 (95) 100 01/10/17 22:00 97 01/10/17 22:00 Room Air 01/10/17 19:49 97.5 102 18 121/71 (88) 99 01/10/17 19:31 97.5 102 18 121/71 (88) 99 -: 01/11/17 0559 01/11/17 0559 Physical Exam General Appearance: No Acute Distress, Comfortable Eyes Eye Exam: Pupils Equal Throat Throat Exam: Oral Mucosa [place] & Moist Pulmonary Resp Exam: Breath Sounds Equal, No Distress, Rhonchi, Decreased Bases Cardiology CV Exam: Regular, Normal Sinus Rhythm Gastrointestinal/Abdomen GI Exam: Soft, Non-Tender, Bowel Sounds Present Extremeties Extremities Exam: No Edema Neurologic Neuro Exam: Alert, Awake, Oriented Psychiatric Psych Exam: Appropriate Responses Assessment/Plan Assessment Summary: MIKE/Acute Renal Failure Problem List: (1) Renal failure ICD Codes: N19 - Unspecified kidney failure Status: Acute (2) Sepsis ICD Codes: A41.9 - Sepsis, unspecified organism Status: Acute (3) Open wound of scrotum ICD Codes: S31.30XA - Unspecified open wound of scrotum and testes, initial encounter Status: Acute Plan c/o blurry vision left eye Remain non oliguric. SPEP was negative. Complements normal, other serology also negative. BP is better, on Metoprolol to 50 mg BID. If renal function will not improve, will consider Renal Biopsy once infection is controlled. Fever pattern is better, ID is following. Now on Bactrim, Acyclovir, Clarithromycin and Ethambutol. No improvement in renal function. Possibly has End stage renal disease. Got PermCath. 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 No need to repeat the renal Biopsy as clinically he is showing no improvement, and the with advance HIV , the treatment options are limited, cannot be given immunosuppressive drugs. He understand increase risk of infection due to advance HIV. Has PD catheter done. Now on Valganciclovir, ID following. Gallium scan is negative. HD to continue TTS. On Epogen , follow Hgb. Transfuse as needed. HD continue as schedule. Problem Qualifiers (1) Renal failure: (2) Sepsis: Kwadwo Shah MD Jan 11, 2017 17:21
[2017-01-11] MEDS: NS + KCL 20 MEQ INJ 1,000 ML IV SCH (17:55)
[2017-01-11] MEDS: FILGRASTIM 480 MCG/1.6 ML VIAL SQ SCH (17:56)
--- NOTE | 2017-01-11 17:57 | RADRPT ---
EXAM DATE/TIME: 01/11/2017 16:20 [place] COMPARISON: No previous studies available for comparison. INDICATIONS : Altered mental status. MEDICAL HISTORY : HIV. Renal failure, chronic. SURGICAL HISTORY : Dialysis catheter. ENCOUNTER: Subsequent ACUITY: 2 weeks PAIN SCORE: 0/10 LOCATION: head TECHNIQUE: Multiplanar, multisequence MRI of the brain was performed without contrast. FINDINGS: CEREBRUM: The ventricles are normal for age. No evidence of midline shift, mass lesion, hemorrhage or acute in farction. No extraaxial fluid collections are seen. The pituitary gland and suprasellar cistern are normal in configuration. Questionable minimal transependymal migration of CSF adjacent to lateral ve ntricles WHITE MATTER: No significant signal abnormalities are seen in the white matter. POSTERIOR FOSSA: The cerebellum and brainstem are intact. The 4th ventricle is midline. The cerebellopontine angle is unremarkable. The cerebellar tonsils are normal in position. DIFFUSION IMAGING: No focal areas of restricted diffusion are seen. No evidence of acute infarction. EXTRACRANIAL: The visualized portions of the orbits and paranasal sinuses are unremarkable. CONCLUSION: Questionable minimal transependymal migration of CSF adjacent to the lateral ventricles. Otherwise no rmal. Juve Hsu MD on January 11, 2017 at 17:54 Board Certified Radiologist. This report was verified electronically.
[2017-01-12] VITALS (7 sets, daily range): BP systolic 120–142; BP diastolic 71–94; PULSE 98–112; RESP 16–20; TEMP 97.7–99; O2SAT 95–100
[2017-01-12] MEDS: DOCUSATE SODIUM 50 MG/SENNA 8.6 MG TAB PO SCH ×2 (09:00→19:57)
--- NOTE | 2017-01-12 11:50 | PD.ONC.PN ---
Subjective Subjective Remarks Afebrile overnight. Seen in HD. No complaints. Objective Data Date Time Temp Pulse Resp B/P (MAP) Pulse Ox O2 Delivery O2 Flow Rate FiO2 01/12/17 08:01 98.1 112 17 122/78 (93) 95 01/12/17 08:00 Room Air 01/12/17 04:00 97.7 98 16 142/90 (107) 100 01/12/17 00:00 97.7 101 16 142/94 (110) 99 01/11/17 20:01 98.4 102 18 138/89 (105) 100 01/11/17 20:00 100 01/11/17 20:00 Room Air 01/11/17 16:01 98.5 101 18 144/92 (109) 100 01/11/17 12:01 98.3 103 18 134/85 (101) 100 01/12/17 01/12/17 01/12/17 07:00 15:00 23:00 Intake Total 0 ml Output Total 1000 ml Balance 0 ml -1000 ml Result Diagram: 01/11/17 0559 01/11/1759 Laboratory Results Laboratory Tests Test 01/11/17 14:15 Administered Medications Medications (Trade) Dose Ordered Sig/Nyla Route PRN Reason Start Time Stop Time Status Last Admin Dose Admin Acetaminophen (Tylenol) 650 mg Q4H PRN PO TEMP > 100.4 11/05/16 16:15 01/07/17 15:59 Ondansetron HCl (Zofran Inj) 4 mg Q6H PRN IVP NAUSEA OR VOMITING 11/05/16 16:15 01/06/17 19:42 Heparin Sodium (Porcine) (Heparin Inj) 5,000 units Q12H SQ 11/05/16 17:00 Future Hold 12/08/16 18:16 Senna/Docusate Sodium (Dee-Colace) 1 tab BID PO 11/05/16 21:00 01/11/17 09:23 Sodium Chloride 1,000 ml @ 0 mls/hr Q0M PRN IV For Prime & Rinse Back 11/13/16 17:02 01/03/17 11:10 Heparin Sodium (Porcine) (Heparin Inj) 8,000 units UNSCH PRN IVF WITH DIALYSIS 11/13/16 17:15 12/31/16 09:59 Albumin Human (Albumin 25% Inj) 25 gm UNSCH PRN IV WITH DIALYSIS 11/13/16 17:15 12/31/16 09:58 Sodium Chloride (NS Flush) 5 ml UNSCH PRN IV FLUSH WITH DIALYSIS 11/13/16 17:15 12/17/16 10:57 Heparin Sodium (Porcine) (Heparin Inj) UNSCH PRN .XX WITH DIALYSIS 11/13/16 17:15 01/05/17 11:54 Gentamicin Sulfate (Gentamicin (Dialysis) Inj) 20 mg UNSCH PRN IV WITH DIALYSIS 11/13/16 17:15 01/07/17 12:29 Ondansetron HCl (Zofran Inj) 4 mg UNSCH PRN IV WITH DIALYSIS 11/13/16 17:15 12/09/16 20:25 Acetaminophen (Tylenol) 650 mg UNSCH PRN PO for headach, pain, temp > 101F 11/13/16 17:15 01/03/17 21:57 Clonidine (Catapres) 0.1 mg UNSCH PRN PO for BP > 170/100 X 2 readings 11/13/16 17:15 12/08/16 13:25 Metoprolol Tartrate (Lopressor) 50 mg Q12HR PO 11/16/16 21:00 Future Hold 12/02/16 08:53 Amlodipine Besylate (Norvasc) 5 mg DAILY PO 11/19/16 12:00 Future Hold 12/02/16 08:53 Clarithromycin (Biaxin) 500 mg Q12HR PO 11/21/16 21:00 01/11/17 09:23 Heparin Sodium (Porcine) (Heparin Inj) UNSCH PRN IV FLUSH SEE PROTOCOL 11/29/16 18:15 12/06/16 10:15 Lactobacillus Acidophilus (Lactinex) 1 tab Q12HR PO 12/02/16 10:00 01/11/17 09:23 Ethambutol HCl (Myambutol) 800 mg DAILY PO 12/04/16 09:00 01/11/17 09:23 Epoetin Abel (Epogen Inj) 10,000 units UNSCH PRN IV WITH DIALYSIS 12/06/16 09:30 01/07/17 12:29 Rifampin (Rifampin) 300 mg Q12HR PO 12/09/16 21:00 01/11/17 09:23 Sodium Chloride (NS Flush) 2 ml BID IV FLUSH 12/14/16 21:00 01/11/17 20:01 Filgrastim (Neupogen Inj) 480 mcg DAILY@14 SQ 01/06/17 23:15 01/11/17 17:56 Potassium Chloride/Sodium Chloride 1,000 ml @ 42 mls/hr [id number] IV 01/09/17 15:00 01/11/17 17:55 Objective Remarks GENERAL: Middle aged male lying on hospital bed receiving HD. SKIN: Warm and dry. HEAD: Normocephalic. EYES: No injection or drainage. NECK: Supple, trachea midline. CARDIOVASCULAR: Regular rate and rhythm RESPIRATORY: anterior ogden clear. GASTROINTESTINAL: Abdomen soft, non-tender, nondistended. EXTREMITIES: No cyanosis NEUROLOGICAL: awake and alert. able to move extremities. Assessment/Plan Problem List: (1) Sepsis ICD Codes: A41.9 - Sepsis, unspecified organism Status: Acute Plan: --on multiple antibiotics including Rifampin, Biaxin, ethambutol, cefepime and Diflucan. --has been having fever of unknown origin and infectious workup is ongoing. (2) Thrombocytopenia ICD Codes: D69.6 - Thrombocytopenia, unspecified Plan: --likely multifactorial d/t sepsis, drug effect, DIC, bone marrow suppression. (3) Severe neutropenia ICD Codes: D70.9 - Neutropenia, unspecified Status: Resolved Plan: --on Neupogen --counts improving. (4) Normocytic anemia ICD Codes: D64.9 - Anemia, unspecified Plan: --likely due to bone marrow suppression with uncontrolled AIDS and disseminated MAC infection. 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 +disseminated MAC infection, acute renal failure and CMV retinitis. --has developed end-stage renal disease and is currently getting peritoneal dialysis. Plan 1. check CBC today 2. continue Neupogen Attending Statement The exam, history, and the medical decision-making described in the above note were completed with the assistance of the mid-level provider. I reviewed and agree with the findings presented. I attest that I had a [id number] encounter with the patient on the same day, and personally performed and documented my assessment and findings in the medical record. stop Neupogen since WBC > 14 Problem Qualifiers (1) Sepsis: Lynn Taylor Jan 12, 2017 11:50 Chandra Parks MD Jan 12, 2017 19:46
[2017-01-12] MEDS: RIFAMPIN 150 MG CAP PO SCH ×2 (12:46→19:56)
[2017-01-12] MEDS: LACTOBACILLUS ACIDOPHILUS TAB PO SCH ×2 (12:46→19:56)
[2017-01-12] MEDS: CLARITHROMYCIN 500 MG TAB PO SCH ×2 (12:46→19:56)
[2017-01-12] MEDS: ETHAMBUTOL HCL 400 MG TAB PO SCH (12:47)
[2017-01-12] MEDS: SODIUM CHLORIDE 0.9% FLUSH 10 ML FLUSH IV FLUSH SCH ×2 (12:47→19:57)
[2017-01-12 14:58] LABS: CRYPTOCOCCUS ANTIGEN Negative (Negative)
--- NOTE | 2017-01-12 15:28 | HHI.IDPN ---
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, on HD; S/P PD cath Notes reviewed D/W RN Temps ok WBC normal PO intake has been fair - patient being encouraged to eta and drink his Ensure MRI brain ok Crypto Ag negative he is answering my questions today He looks depressed Antibiotics I attest that I obtained, updated or reviewed the home and current medications. Rifampin Biaxin Ethambutol Current Medications Medications (Trade) Dose Ordered Sig/Nyla Route Start Time Stop Time Status Last Admin (NS Flush) 2 ml UNSCH PRN IV FLUSH 11/05/16 16:15 (Tylenol) 650 mg Q4H PRN PO 11/05/16 16:15 01/07/17 15:59 (Zofran Inj) 4 mg Q6H PRN IVP 11/05/16 16:15 01/06/17 19:42 (Heparin Inj) 5,000 units Q12H SQ 11/05/16 17:00 Future Hold 12/08/16 18:16 (Narcan Inj) 0.4 mg UNSCH PRN IV 11/05/16 16:15 (Dee-Colace) 1 tab BID PO 11/05/16 21:00 01/11/17 09:23 (Milk Of Magnesia Liq) 30 ml Q12H PRN PO 11/05/16 16:15 (Senokot) 17.2 mg Q12H PRN PO 11/05/16 16:15 (Dulcolax Supp) 10 mg DAILY PRN RECTAL 11/05/16 16:15 (Lactulose Liq) 30 ml DAILY PRN PO 11/05/16 16:15 (Pill Splitter) 1 ea UNSCH PRN OTHER 11/13/16 14:30 Sodium Chloride 1,000 ml @ 0 mls/hr Q0M PRN IV 11/13/16 17:02 01/03/17 11:10 (Heparin Inj) 8,000 units UNSCH PRN IVF 11/13/16 17:15 12/31/16 09:59 Sodium Chloride 1,000 ml @ 200 mls/hr Q5H PRN IV 11/13/16 17:02 Sodium Chloride 1,000 ml @ 0 mls/hr Q0M PRN IV 11/13/16 17:02 (Mannitol Inj) 12.5 gm UNSCH PRN IV 11/13/16 17:15 (Albumin 25% Inj) 25 gm UNSCH PRN IV 11/13/16 17:15 12/31/16 09:58 (NS Flush) 5 ml UNSCH PRN IV FLUSH 11/13/16 17:15 12/17/16 10:57 (Heparin Inj) UNSCH PRN .XX 11/13/16 17:15 01/05/17 11:54 (Gentamicin (Dialysis) Inj) 20 mg UNSCH PRN IV 11/13/16 17:15 01/07/17 12:29 (Zofran Inj) 4 mg UNSCH PRN IV 11/13/16 17:15 12/09/16 20:25 (Tylenol) 650 mg UNSCH PRN PO 11/13/16 17:15 01/03/17 21:57 (Benadryl) 25 mg UNSCH PRN PO 11/13/16 17:15 (Nitrostat Sl) 0.4 mg UNSCH PRN SL 11/13/16 17:15 (Catapres) 0.1 mg UNSCH PRN PO 11/13/16 17:15 12/08/16 13:25 (Gelfoam 12 Mm/7 Mm Top) 1 foam UNSCH PRN TOP 11/13/16 17:15 (Lopressor) 50 mg Q12HR PO 11/16/16 21:00 Future Hold 12/02/16 08:53 (Norvasc) 5 mg DAILY PO 11/19/16 12:00 Future Hold 12/02/16 08:53 (Biaxin) 500 mg Q12HR PO 11/21/16 21:00 01/12/17 12:46 (NS Flush) UNSCH PRN IVF 11/29/16 18:15 (Heparin Inj) UNSCH PRN IV FLUSH 11/29/16 18:15 12/06/16 10:15 (Lactinex) 1 tab Q12HR PO 12/02/16 10:00 01/12/17 12:46 (Myambutol) 800 mg DAILY PO 12/04/16 09:00 01/12/17 12:47 (Epogen Inj) 10,000 units UNSCH PRN IV 12/06/16 09:30 01/07/17 12:29 (Rifampin) 300 mg Q12HR PO 12/09/16 21:00 01/12/17 12:46 (NS Flush) 2 ml UNSCH PRN IV FLUSH 12/14/16 10:45 (NS Flush) 2 ml BID IV FLUSH 12/14/16 21:00 01/12/17 12:47 ([place] 5-325 Mg) 1 tab Q4H PRN PO 12/14/16 10:45 ([place] 5-325 Mg) 2 tab Q4H PRN PO 12/14/16 10:45 (Neupogen Inj) 480 mcg DAILY@14 SQ 01/06/17 23:15 01/11/17 17:56 Potassium Chloride/Sodium Chloride 1,000 ml @ 42 mls/hr [id number] IV 01/09/17 15:00 01/11/17 17:55 (Bactrim Ds 800-160 Mg) 1 tab MoWeFr@09 PO 01/13/17 09:00 Lines permacath Past Medical History HIV, for 20+years, noncompliant with medications for the past 2 months Kidney stones Allergies: Coded Allergies: No Known Allergies (Unverified , 11/05/16) Objective . Vital Signs Date Time Temp Pulse Resp B/P (MAP) Pulse Ox O2 Delivery O2 Flow Rate FiO2 01/12/17 08:01 98.1 112 17 122/78 (93) 95 01/12/17 08:00 Room Air 01/12/17 04:00 97.7 98 16 142/90 (107) 100 01/12/17 00:00 97.7 101 16 142/94 (110) 99 01/11/17 20:01 98.4 102 18 138/89 (105) 100 01/11/17 20:00 100 01/11/17 20:00 Room Air 01/11/17 16:01 98.5 101 18 144/92 (109) 100 01/12/17 01/12/17 01/13/17 15:00 23:00 07:00 Output Total 1000 ml Balance -1000 ml Hemodialysis 1000 ml . Laboratory Tests Test 01/11/17 05:59 White Blood Count 8.0 TH/MM3 Red Blood Count 3.01 MIL/MM3 Hemoglobin 8.4 GM/DL Hematocrit 26.1 % Mean Corpuscular Volume 86.8 FL Mean Corpuscular Hemoglobin 28.0 PG Mean Corpuscular Hemoglobin Concent 32.3 % Red Cell Distribution Width 17.7 % Platelet Count 95 TH/MM3 Mean Platelet Volume 9.9 FL CBC Comment AUTO DIFF Differential Total Cells Counted 100 Neutrophils % (Manual) 52 % Band Neutrophils % 20 % Lymphocytes % 5 % Monocytes % 14 % Eosinophils % 3 % Neutrophils # (Manual) 6.2 TH/MM3 Metamyelocytes 4 % Myelocytes 2 % Differential Comment FINAL DIFF MANUAL Toxic Granulation 2+ Dohle Bodies PRESENT Platelet Estimate LOW Platelet Morphology Comment NORMAL Laboratory Tests Test 01/11/17 05:59 Blood Urea Nitrogen 33 MG/DL Creatinine 5.45 MG/DL Random Glucose 78 MG/DL Calcium Level 9.5 MG/DL Sodium Level 140 MEQ/L Potassium Level 3.8 MEQ/L Chloride Level 102 MEQ/L Carbon Dioxide Level 28.0 MEQ/L Anion Gap 10 MEQ/L Estimat Glomerular Filtration Rate 13 ML/MIN Imaging Last Impressions Renal Biopsy CT 12/01/16 0600 Signed Impressions: Service Date/Time: November 14:17 - CONCLUSION: Uncomplicated CT guided biopsy. Alexis Adhikari MD Central Venous Line 11/29/16 0000 Signed Impressions: Service Date/Time: Tuesday, November 29, 2016 00:00 - CONCLUSION: Uncomplicated catheter removal. Solitario Diaz MD Catheter Placement X-Ray 11/29/16 0000 Signed Impressions: Service Date/Time: Tuesday, November 29, 2016 13:58 - CONCLUSION: Uncomplicated PermaCath placement as above. Solitario Diaz MD Tumor Localization 11/14/16 0000 Signed Impressions: Service Date/Time: Monday, November 14, 2016 11:38 - CONCLUSION: Negative scan Solitario Diaz MD Chest X-Ray 11/13/16 0000 Signed Impressions: Service Date/Time: Sunday, November 13, 2016 16:02 - CONCLUSION: No acute cardiopulmonary disease. Quincy Medellin MD Renal Ultrasound 11/05/16 0000 Signed Impressions: Service Date/Time: Saturday, November 05, 2016 19:17 - CONCLUSION: Diffusely echogenic kidneys indicating medical renal disease. Dorian Murry MD Abdomen/Pelvis CT 11/05/16 0000 Signed Impressions: Service Date/Time: Saturday, November 05, 2016 17:19 - CONCLUSION: 1. 4 mm calculus in the right renal pelvis/ureteropelvic junction with mild adjacent perinephric/periureteral stranding. No evidence of hydronephrosis. 2. 1 cm round hypodensity in the anterior right mid kidney statistically most likely to represent a cyst. 3. 3.7 cm hypodensity in the right lobe of the liver air the dome of the diaphragm. This finding is nonspecific on noncontrast CT. The most likely etiologies include hemangioma and cyst. It could be further evaluated with ultrasound nonemergent followup MRI of the abdomen. 4. Mild dilated proximal right common iliac artery. Dorian Murry MD Physical Exam GENERAL: awake, following commands, not talking, not in respiratory distress. Seems to have trouble finding words, frequent blinking of his eyes SKIN: Warm and dry. Dry skin EYES: [place] conjunctiva. No petechia or hemorrhage. No scleral icterus. No injection or drainage. EARS, NOSE AND THROAT: Nose without bleeding or purulent nasal discharge. Mucous membranes pink and moist. White coating on tongue NECK: Trachea midline. Supple and not tender, no meningeal signs CARDIOVASCULAR: Regular rate and rhythm. No murmurs, rubs or gallops heard RESPIRATORY: Clear to auscultation. Breath sounds equal bilaterally. No rales , wheezing or rhonchi ABDOMEN: Soft, not tender, not distended, dry dressing over cath. No guarding. No rebound. No organomegaly. Has stable oblong brown non tender nodule on R lateral groin (chronic been there for years, not getting bigger) EXTREMITIES: No clubbing, cyanosis, or edema. No joint effusion, has good ROM. No calf tenderness. Well perfused and warm. BUTTOCK: Ulcers healed NEUROLOGICAL: Awake alert Non-focal except that he is not speaking PSYCHIATRIC: Normal affect, calm and cooperative. 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
[2017-01-12 17:00] LABS: HEMATOCRIT 22.7 % (39.0-51.0); MEAN CELL VOLUME 86.7 FL (80.0-100.0); MEAN CORPUSCULAR HEMOGLOBIN 27.9 PG (27.0-34.0); MEAN CORPUSCULAR HGB CONC 32.2 % (32.0-36.0); PLATELET COUNT 101 TH/MM3 (150-450); RED BLOOD COUNT 2.62 MIL/MM3 (4.50-5.90); RED CELL DISTRIBUTION WIDTH 18.1 % (11.6-17.2); WHITE BLOOD COUNT 14.8 TH/MM3 (4.0-11.0)
[2017-01-12 17:20] LABS: HEMO FLAGS AUTO DIFF
--- NOTE | 2017-01-12 17:29 | HHI.PR ---
Subjective Remarks Patient has better response to simple questions today No acute event overnight Continue management per ID recommendation Objective Vitals Vital Signs Date Time Temp Pulse Resp B/P (MAP) Pulse Ox O2 Delivery O2 Flow Rate FiO2 01/12/17 08:01 98.1 112 17 122/78 (93) 95 01/12/17 08:00 Room Air 01/12/17 04:00 97.7 98 16 142/90 (107) 100 01/12/17 00:00 97.7 101 16 142/94 (110) 99 01/11/17 20:01 98.4 102 18 138/89 (105) 100 01/11/17 20:00 100 01/11/17 20:00 Room Air I/O 01/11/17 01/11/17 01/11/17 01/12/17 01/12/17 01/12/17 06:59 14:59 22:59 06:59 14:59 22:59 Intake Total 481 ml 645 ml 0 ml Output Total 1000 ml Balance 481 ml 645 ml 0 ml -1000 ml Intake Oral 220 ml 0 ml IV Total 481 ml 425 ml Hemodialysis 1000 ml # Voids 3 3 0 # Bowel Movements 1 0 0 Result Diagram: 01/12/17 1544 01/11/17 0559 Objective Remarks - GENERAL: This is a well-nourished, well-developed patient, in no apparent distress. SKIN: No rashes, warm and dry HEAD: Atraumatic. Normocephalic. EYES: Pupils equal round and reactive. Extraocular motions intact. No scleral icterus. ENT: Nose without bleeding, or drainage, Airway patent. NECK: Trachea midline. Supple CARDIOVASCULAR: Regular rate and rhythm without murmurs, gallops, or rubs. RESPIRATORY: Fair air entry bilaterally. No wheezes, rales, or rhonchi. GASTROINTESTINAL: Abdomen soft, non-tender, nondistended. Positive bowel sounds MUSCULOSKELETAL: Extremities without clubbing, cyanosis, or edema. Pedal pulses appreciated NEUROLOGICAL: Awake and alert noncommunicative, moves all extremity. Not able to assess speech due to patient not answering question Procedures 11/14/16 hemodialysis catheter placement, right internal jugular 12/14 PD cath placement A/P Problem List: (1) Renal failure ICD Code: N19 - Unspecified kidney failure Status: Acute (2) Sepsis ICD Code: A41.9 - Sepsis, unspecified organism Status: Acute (3) UTI (urinary tract infection) ICD Code: N39.0 - Urinary tract infection, site not specified (4) Chronic kidney disease, stage V ICD Code: N18.5 - Chronic kidney disease, stage 5 (5) HIV (human immunodeficiency virus infection) ICD Code: B20 - Human immunodeficiency virus [HIV] disease (6) Anemia ICD Code: D64.9 - Anemia, unspecified (7) Hypertension ICD Code: I10 - Essential (primary) hypertension (8) Medical non-compliance ICD Code: Z91.19 - Patient's noncompliance with other medical treatment and regimen Assessment and Plan 01/11: Slight change in mental status, discussed with ID who more appreciate that changes since this is my first time seeing the patient. We will continue continue current management and monitor neurochecks 01/12: MRI of the brain with unremarkable, response to simple question is better today, continue current management and follow up with ID recommendation A/P: 1. Severe sepsis secondary to UTI, pneumonia: Status post treatment with Zosyn. Patient is immunocompromised, noncompliant with HAART for 2 months prior to admission. HSV positive. 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 Blood mycobacterial culture growing acid fast organism. Further ID pending. Still having fevers. 2. Acute renal failure superimposed on chronic kidney disease stage V: Appreciate nephrology recommendations. SPEP, serology negative. Creatinine not improving. Hemodialysis per nephrology.renal bx :FSGN 3. HIV/AIDS: CD4 count less than 20. Patient admitted to being noncompliant with HAART meds. He has been counseled. 4. Oral thrush: Continue nystatin. 5. Anemia: Hemoglobin trending down again. Monitor H/H. Received transfusion 1 unit PRBCs on 12/08/16. He has received 7 units total during this hospitalization. 6. Hypertension, tachycardia: Continue metoprolol. 7. Buttock, perirectal wounds: HSV positive. Continue Valtrex 14 days then chronic suppression with acyclovir. 8. Neutropenia: Management per hematology. Given Neupogen. 9. DVT prophylaxis: Heparin. 10. 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 11. Poor oral intake: Continue gentle IV fluid hydration. Problem Qualifiers (1) Renal failure: (2) Sepsis: (3) Anemia: Maggy Cordero MD Jan 12, 2017 17:29
[2017-01-12 17:57] LABS: BANDS 21 % (0-6); BASOPHILS 1 % (0-2); METAMYELOCYTES 3 % (0-1); MYELOCYTES 3 % (0-0); NEUTROPHIL # MANUAL DIFF 13.9 TH/MM3 (1.8-7.7); POLYS (SEG NEUTROPHILS) 67 % (16-70); WBC DIFF SAMPLE 100
[2017-01-12 17:58] LABS: PLATELET ESTIMATE SMEAR LOW (NORMAL); PLATELET MORPHOLOGY NORMAL (NORMAL); SCAN/DIFF FINAL DIFF MANUAL
[2017-01-12 18:00] LABS: DOHLE BODIES PRESENT (NONE SEEN); TOXIC GRANULATION 2+ (NORMAL)
--- NOTE | 2017-01-12 21:49 | HHI.NPPN ---
Subjective History of Present Illness 50-year-old male with past medical history of HIV disease for more than 20 years and history of renal stone who came to the hospital with complaint of back pain. The patient has back pain going on for the last 2 months off and on and he came to the emergency department yesterday with worsening pain. Additional Remarks Patient is more alert, not in distress, no SOB. Review of Systems General Constitutional: Fatigue Cardiovascular Cardiac: MIRZA Objective Data Data 01/12/17 01/13/17 19:00 07:00 Intake Total 120 ml Output Total 1000 ml Balance -880 ml Intake Oral 120 ml Hemodialysis 1000 ml # Voids 2 # Bowel Movements 3 Vital Signs Date Time Temp Pulse Resp B/P (MAP) Pulse Ox O2 Delivery O2 Flow Rate FiO2 01/12/17 19:00 99.0 109 20 129/90 (103) 100 01/12/17 16:01 98.7 105 18 120/72 (88) 98 01/12/17 12:30 98.8 107 17 123/71 (88) 98 01/12/17 08:01 98.1 112 17 122/78 (93) 95 01/12/17 08:00 Room Air 01/12/17 04:00 97.7 98 16 142/90 (107) 100 01/12/17 00:00 97.7 101 16 142/94 (110) 99 -: 01/12/17 1544 01/11/17 0559 Physical Exam General Appearance: No Acute Distress, Comfortable Eyes Eye Exam: Pupils Equal Throat Throat Exam: Oral Mucosa [place] & Moist Pulmonary Resp Exam: Breath Sounds Equal, No Distress, Rhonchi, Decreased Bases Cardiology CV Exam: Regular, Normal Sinus Rhythm Gastrointestinal/Abdomen GI Exam: Soft, Non-Tender, Bowel Sounds Present Extremeties Extremities Exam: No Edema Neurologic Neuro Exam: Alert, Awake, Oriented Psychiatric Psych Exam: Appropriate Responses Assessment/Plan Assessment Summary: MIKE/Acute Renal Failure Problem List: (1) Renal failure ICD Codes: N19 - Unspecified kidney failure Status: Acute (2) Sepsis ICD Codes: A41.9 - Sepsis, unspecified organism Status: Acute (3) Open wound of scrotum ICD Codes: S31.30XA - Unspecified open wound of scrotum and testes, initial encounter Status: Acute Plan c/o blurry vision left eye Remain non oliguric. SPEP was negative. Complements normal, other serology also negative. BP is better, on Metoprolol to 50 mg BID. If renal function will not improve, will consider Renal Biopsy once infection is controlled. Fever pattern is better, ID is following. Now on Bactrim, Acyclovir, Clarithromycin and Ethambutol. No improvement in renal function. Possibly has End stage renal disease. Got PermCath. 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 No need to repeat the renal Biopsy as clinically he is showing no improvement, and the with advance HIV , the treatment options are limited, cannot be given immunosuppressive drugs. He understand increase risk of infection due to advance HIV. Has PD catheter done. Now on Valganciclovir, ID following. Gallium scan is negative. HD to continue TTS. On Epogen , follow Hgb. Transfuse as needed. WBC better with Neupogen. Now afebrile. MRI results noted. Problem Qualifiers (1) Renal failure: (2) Sepsis: Kwadwo Shah MD Jan 12, 2017 21:49
[2017-01-13] VITALS (10 sets, daily range): BP systolic 129–163; BP diastolic 89–99; PULSE 86–101; RESP 17–20; TEMP 98.5–100.1; O2SAT 96–100
[2017-01-13] MEDS: ACETAMINOPHEN 325 MG TAB PO PRN ×2 (03:43→23:49)
[2017-01-13] MEDS: NS + KCL 20 MEQ INJ 1,000 ML IV SCH (07:24)
[2017-01-13] MEDS: ETHAMBUTOL HCL 400 MG TAB PO SCH (08:41)
[2017-01-13] MEDS: DOCUSATE SODIUM 50 MG/SENNA 8.6 MG TAB PO SCH ×2 (08:41→21:00)
[2017-01-13] MEDS: SODIUM CHLORIDE 0.9% FLUSH 10 ML FLUSH IV FLUSH SCH ×2 (08:41→21:00)
[2017-01-13] MEDS: CLARITHROMYCIN 500 MG TAB PO SCH ×2 (08:41→21:53)
[2017-01-13] MEDS: RIFAMPIN 150 MG CAP PO SCH ×2 (08:41→21:53)
[2017-01-13] MEDS: LACTOBACILLUS ACIDOPHILUS TAB PO SCH ×2 (08:41→21:53)
[2017-01-13] MEDS ORDERED: SULFAMETHOXAZOLE-TRIMETHOPRIM DS 800-160 MG TAB PO SCH (09:00)
[2017-01-13 09:55] LABS: BASOPHIL # 0.1 TH/MM3 (0-0.2); BASOPHIL % 0.6 % (0.0-2.0); EOSINOPHIL % 0.4 % (0.0-4.0); HEMATOCRIT 26.9 % (39.0-51.0); LYMPH % 3.4 % (9.0-44.0); LYMPHOCYTE # 0.4 TH/MM3 (1.0-4.8); MEAN CELL VOLUME 85.1 FL (80.0-100.0); MEAN CORPUSCULAR HEMOGLOBIN 27.5 PG (27.0-34.0); MEAN CORPUSCULAR HGB CONC 32.3 % (32.0-36.0); MONO % 9.5 % (0.0-8.0); NEUT % 86.1 % (16.0-70.0); PLATELET COUNT 91 TH/MM3 (150-450); RED BLOOD COUNT 3.16 MIL/MM3 (4.50-5.90); RED CELL DISTRIBUTION WIDTH 19.4 % (11.6-17.2); WHITE BLOOD COUNT 11.6 TH/MM3 (4.0-11.0)
[2017-01-13 10:00] LABS: HEMO FLAGS AUTO DIFF
--- NOTE | 2017-01-13 10:03 | PD.ONC.PN ---
Subjective Subjective Remarks Afebrile overnight. Patient resting in bed in nad. Reports he is feeling well today. No complaints. Objective Data Date Time Temp Pulse Resp B/P (MAP) Pulse Ox O2 Delivery O2 Flow Rate FiO2 01/13/17 08:02 98.5 90 18 130/89 (103) 100 01/13/17 04:50 98.6 88 18 160/96 96 01/13/17 04:30 98.8 90 18 158/96 98 01/13/17 04:14 98.8 87 18 163/93 01/13/17 04:00 98.6 86 18 147/96 100 01/13/17 04:00 01/13/17 00:00 98.9 97 20 129/89 (102) 100 01/12/17 20:00 110 01/12/17 20:00 Room Air 01/12/17 19:00 99.0 109 20 129/90 (103) 100 01/12/17 16:01 98.7 105 18 120/72 (88) 98 01/12/17 12:30 98.8 107 17 123/71 (88) 98 01/13/17 01/13/17 01/13/17 07:00 15:00 23:00 Intake Total 700 ml Balance 700 ml Result Diagram: 01/12/17 1544 01/11/17 0559 Laboratory Results Laboratory Tests Test 01/12/17 15:44 01/13/17 07:47 White Blood Count 14.8 TH/MM3 11.6 TH/MM3 Red Blood Count 2.62 MIL/MM3 3.16 MIL/MM3 Hemoglobin 7.3 GM/DL 8.7 GM/DL Hematocrit 22.7 % 26.9 % Mean Corpuscular Volume 86.7 FL 85.1 FL Mean Corpuscular Hemoglobin 27.9 PG 27.5 PG Mean Corpuscular Hemoglobin Concent 32.2 % 32.3 % Red Cell Distribution Width 18.1 % 19.4 % Platelet Count 101 TH/MM3 91 TH/MM3 Mean Platelet Volume 10.1 FL 10.2 FL CBC Comment AUTO DIFF AUTO DIFF Differential Total Cells Counted 100 Neutrophils % (Manual) 67 % Band Neutrophils % 21 % Lymphocytes % 1 % Monocytes % 4 % Basophils % 1 % Neutrophils # (Manual) 13.9 TH/MM3 Metamyelocytes 3 % Myelocytes 3 % Differential Comment FINAL DIFF MANUAL Toxic Granulation 2+ Dohle Bodies PRESENT Platelet Estimate LOW Platelet Morphology Comment NORMAL Neutrophils (%) (Auto) 86.1 % Lymphocytes (%) (Auto) 3.4 % Monocytes (%) (Auto) 9.5 % Eosinophils (%) (Auto) 0.4 % Basophils (%) (Auto) 0.6 % Neutrophils # (Auto) 10.0 TH/MM3 Lymphocytes # (Auto) 0.4 TH/MM3 Monocytes # (Auto) 1.1 TH/MM3 Eosinophils # (Auto) 0.0 TH/MM3 Basophils # (Auto) 0.1 TH/MM3 Administered Medications Medications (Trade) Dose Ordered Sig/Nyla Route PRN Reason Start Time Stop Time Status Last Admin Dose Admin Acetaminophen (Tylenol) 650 mg Q4H PRN PO TEMP > 100.4 11/05/16 16:15 01/13/17 03:43 Ondansetron HCl (Zofran Inj) 4 mg Q6H PRN IVP NAUSEA OR VOMITING 11/05/16 16:15 01/06/17 19:42 Heparin Sodium (Porcine) (Heparin Inj) 5,000 units Q12H SQ 11/05/16 17:00 Future Hold 12/08/16 18:16 Senna/Docusate Sodium (Dee-Colace) 1 tab BID PO 11/05/16 21:00 01/12/17 19:57 Sodium Chloride 1,000 ml @ 0 mls/hr Q0M PRN IV For Prime & Rinse Back 11/13/16 17:02 01/03/17 11:10 Heparin Sodium (Porcine) (Heparin Inj) 8,000 units UNSCH PRN IVF WITH DIALYSIS 11/13/16 17:15 12/31/16 09:59 Albumin Human (Albumin 25% Inj) 25 gm UNSCH PRN IV WITH DIALYSIS 11/13/16 17:15 12/31/16 09:58 Sodium Chloride (NS Flush) 5 ml UNSCH PRN IV FLUSH WITH DIALYSIS 11/13/16 17:15 12/17/16 10:57 Heparin Sodium (Porcine) (Heparin Inj) UNSCH PRN .XX WITH DIALYSIS 11/13/16 17:15 01/05/17 11:54 Gentamicin Sulfate (Gentamicin (Dialysis) Inj) 20 mg UNSCH PRN IV WITH DIALYSIS 11/13/16 17:15 01/07/17 12:29 Ondansetron HCl (Zofran Inj) 4 mg UNSCH PRN IV WITH DIALYSIS 11/13/16 17:15 12/09/16 20:25 Acetaminophen (Tylenol) 650 mg UNSCH PRN PO for headach, pain, temp > 101F 11/13/16 17:15 01/03/17 21:57 Diphenhydramine HCl (Benadryl) 25 mg UNSCH PRN PO for hives/itching/anaphylaxis 11/13/16 17:15 01/13/17 03:43 Clonidine (Catapres) 0.1 mg UNSCH PRN PO for BP > 170/100 X 2 readings 11/13/16 17:15 12/08/16 13:25 Metoprolol Tartrate (Lopressor) 50 mg Q12HR PO 11/16/16 21:00 Future Hold 12/02/16 08:53 Amlodipine Besylate (Norvasc) 5 mg DAILY PO 11/19/16 12:00 Future Hold 12/02/16 08:53 Clarithromycin (Biaxin) 500 mg Q12HR PO 11/21/16 21:00 01/13/17 08:41 Heparin Sodium (Porcine) (Heparin Inj) UNSCH PRN IV FLUSH SEE PROTOCOL 11/29/16 18:15 12/06/16 10:15 Lactobacillus Acidophilus (Lactinex) 1 tab Q12HR PO 12/02/16 10:00 01/13/17 08:41 Ethambutol HCl (Myambutol) 800 mg DAILY PO 12/04/16 09:00 01/13/17 08:41 Epoetin Abel (Epogen Inj) 10,000 units UNSCH PRN IV WITH DIALYSIS 12/06/16 09:30 01/07/17 12:29 Rifampin (Rifampin) 300 mg Q12HR PO 12/09/16 21:00 01/13/17 08:41 Sodium Chloride (NS Flush) 2 ml BID IV FLUSH 12/14/16 21:00 01/13/17 08:41 Potassium Chloride/Sodium Chloride 1,000 ml @ 42 mls/hr [id number] IV 01/09/17 15:00 01/13/17 07:24 Trimethoprim/ Sulfamethoxazole (Bactrim Ds 800-160 Mg) 1 tab MoWeFr@09 PO 01/13/17 09:00 01/13/17 08:41 Objective Remarks GENERAL: Middle aged male lying in bed in nad. SKIN: Warm and dry. vas-cath in place, right neck/chest wall. HEAD: Normocephalic. EYES: No injection or drainage. NECK: Supple, trachea midline. CARDIOVASCULAR: Regular rate and rhythm RESPIRATORY: anterior ogden clear. GASTROINTESTINAL: Abdomen soft, non-tender, nondistended. EXTREMITIES: No cyanosis NEUROLOGICAL: awake and alert. normal speech. Assessment/Plan Problem List: (1) Sepsis ICD Codes: A41.9 - Sepsis, unspecified organism Status: Acute Plan: --on multiple antibiotics including Rifampin, Biaxin, ethambutol --has been having fever of unknown origin and infectious workup is ongoing. (2) Thrombocytopenia ICD Codes: D69.6 - Thrombocytopenia, unspecified Plan: --likely multifactorial d/t sepsis, drug effect, DIC, bone marrow suppression. (3) Normocytic anemia ICD Codes: D64.9 - Anemia, unspecified Plan: --likely due to bone marrow suppression with uncontrolled AIDS and disseminated MAC infection. 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 +disseminated MAC infection, acute renal failure and CMV retinitis. --has developed end-stage renal disease and is currently getting peritoneal dialysis. Plan 1. monitor CBC 2. continue supportive care Attending Statement The exam, history, and the medical decision-making described in the above note were completed with the assistance of the mid-level provider. I reviewed and agree with the findings presented. I attest that I had a [id number] encounter with the patient on the same day, and personally performed and documented my assessment and findings in the medical record. Problem Qualifiers (1) Sepsis: Lynn Taylor Jan 13, 2017 10:03 Chandra Parks MD Jan 13, 2017 23:05
[2017-01-13 10:49] LABS: BANDS 26 % (0-6); METAMYELOCYTES 4 % (0-1); MYELOCYTES 4 % (0-0); NEUTROPHIL # MANUAL DIFF 10.6 TH/MM3 (1.8-7.7); POLYS (SEG NEUTROPHILS) 56 % (16-70); PROMYELOCYTES 1 % (0-0); TOXIC GRANULATION 1+ (NORMAL); WBC DIFF SAMPLE 100
[2017-01-13 10:54] LABS: DOHLE BODIES PRESENT (NONE SEEN)
[2017-01-13 10:55] LABS: PLATELET ESTIMATE SMEAR LOW (NORMAL); PLATELET MORPHOLOGY NORMAL (NORMAL); SCAN/DIFF FINAL DIFF MANUAL
--- NOTE | 2017-01-13 14:03 | PD.PSY.CON ---
Provisional Diagnosis Admission Date Nov 05, 2016 at 15:57 [place] I. Adjustment disorder with depressed mood History of Present Illness Service Psychiatry Consult Requested By Medical team Reason for Consult Depression Primary Care Physician Quan Valencia MD HPI The patient is a 51 years old man, domiciled alone in [facility], single, supported by Social Security, without any previous psychiatric history, no previous suicidal attempts, no previous psychiatric hospitalizations, he denies the use of substances or alcohol, medical history of renal failure, HIV, chronic kidney disease, anemia, hypertension, hospitalized due to sepsis, consulted to psychiatry due to symptomatology of depression. On psychiatric evaluation today patient is calm, cooperative and pleasant. She denies that he ever expressed depression. His that he has been frustrated and overwhelmed at times due to the length of this hospitalization and difficulties with medical conditions, he reports good motivation to get better, he is future oriented, he denies suicidal and homicidal ideation, he denies visual and auditory hallucinations. Report good sleep, good level of appetite and energy. Oriented 3. Review of Systems Except as stated in HPI: all other systems reviewed are Neg Past Family Social History Coded Allergies: No Known Allergies (Unverified , 11/05/16) Reported Medications Lopinavir-Ritonavir (Kaletra) 100-25 Mg Tab, 1 TAB PO BID for Mgmt Viral Infection, #60 TAB 0 Refills 11/05/16 Lamivudine (Epivir) 150 Mg Tab, 150 MG PO BID for Mgmt Viral Infection, #9 TAB 0 Refills *Fill this 5 day prescription first and begin taking Epivir 12 hours after the first dose received in the Emergency Department as prescribed.* 11/05/16 Abacavir (Ziagen) 300 Mg Tab, 300 MG PO BID for Mgmt Viral Infection, #60 TAB 0 Refills Hazardous agent; use appropriate precautions for handling & disposal. 11/05/16 Current Medications Medications (Trade) Dose Ordered Sig/Nyla Route Start Time Stop Time Status Last Admin (NS Flush) 2 ml UNSCH PRN IV FLUSH 11/05/16 16:15 (Tylenol) 650 mg Q4H PRN PO 11/05/16 16:15 01/13/17 03:43 (Zofran Inj) 4 mg Q6H PRN IVP 11/05/16 16:15 01/06/17 19:42 (Heparin Inj) 5,000 units Q12H SQ 11/05/16 17:00 Future Hold 12/08/16 18:16 (Narcan Inj) 0.4 mg UNSCH PRN IV 11/05/16 16:15 (Dee-Colace) 1 tab BID PO 11/05/16 21:00 01/12/17 19:57 (Milk Of Magnesia Liq) 30 ml Q12H PRN PO 11/05/16 16:15 (Senokot) 17.2 mg Q12H PRN PO 11/05/16 16:15 (Dulcolax Supp) 10 mg DAILY PRN RECTAL 11/05/16 16:15 (Lactulose Liq) 30 ml DAILY PRN PO 11/05/16 16:15 (Pill Splitter) 1 ea UNSCH PRN OTHER 11/13/16 14:30 Sodium Chloride 1,000 ml @ 0 mls/hr Q0M PRN IV 11/13/16 17:02 01/03/17 11:10 (Heparin Inj) 8,000 units UNSCH PRN IVF 11/13/16 17:15 12/31/16 09:59 Sodium Chloride 1,000 ml @ 200 mls/hr Q5H PRN IV 11/13/16 17:02 Sodium Chloride 1,000 ml @ 0 mls/hr Q0M PRN IV 11/13/16 17:02 (Mannitol Inj) 12.5 gm UNSCH PRN IV 11/13/16 17:15 (Albumin 25% Inj) 25 gm UNSCH PRN IV 11/13/16 17:15 12/31/16 09:58 (NS Flush) 5 ml UNSCH PRN IV FLUSH 11/13/16 17:15 12/17/16 10:57 (Heparin Inj) UNSCH PRN .XX 11/13/16 17:15 01/05/17 11:54 (Gentamicin (Dialysis) Inj) 20 mg UNSCH PRN IV 11/13/16 17:15 01/07/17 12:29 (Zofran Inj) 4 mg UNSCH PRN IV 11/13/16 17:15 12/09/16 20:25 (Tylenol) 650 mg UNSCH PRN PO 11/13/16 17:15 01/03/17 21:57 (Benadryl) 25 mg UNSCH PRN PO 11/13/16 17:15 01/13/17 03:43 (Nitrostat Sl) 0.4 mg UNSCH PRN SL 11/13/16 17:15 (Catapres) 0.1 mg UNSCH PRN PO 11/13/16 17:15 12/08/16 13:25 (Gelfoam 12 Mm/7 Mm Top) 1 foam UNSCH PRN TOP 11/13/16 17:15 (Lopressor) 50 mg Q12HR PO 11/16/16 21:00 Future Hold 12/02/16 08:53 (Norvasc) 5 mg DAILY PO 11/19/16 12:00 Future Hold 12/02/16 08:53 (Biaxin) 500 mg Q12HR PO 11/21/16 21:00 01/13/17 08:41 (NS Flush) UNSCH PRN IVF 11/29/16 18:15 (Heparin Inj) UNSCH PRN IV FLUSH 11/29/16 18:15 12/06/16 10:15 (Lactinex) 1 tab Q12HR PO 12/02/16 10:00 01/13/17 08:41 (Myambutol) 800 mg DAILY PO 12/04/16 09:00 01/13/17 08:41 (Epogen Inj) 10,000 units UNSCH PRN IV 12/06/16 09:30 01/07/17 12:29 (Rifampin) 300 mg Q12HR PO 12/09/16 21:00 01/13/17 08:41 (NS Flush) 2 ml UNSCH PRN IV FLUSH 12/14/16 10:45 (NS Flush) 2 ml BID IV FLUSH 12/14/16 21:00 01/13/17 08:41 ([place] 5-325 Mg) 1 tab Q4H PRN PO 12/14/16 10:45 ([place] 5-325 Mg) 2 tab Q4H PRN PO 12/14/16 10:45 Potassium Chloride/Sodium Chloride 1,000 ml @ 42 mls/hr [id number] IV 01/09/17 15:00 01/13/17 07:24 (Bactrim Ds 800-160 Mg) 1 tab MoWeFr@09 PO 01/13/17 09:00 01/13/17 08:41 Family Psych History Patient denies family psychiatric history Social History Patient was born and raised in [facility], he lives in [place], is single, unemployed, supported by Social Security Patient's Strengths (min. 2) Verbal communication Physical Exam Vital Signs Vital Signs Date Time Temp Pulse Resp B/P (MAP) Pulse Ox O2 Delivery O2 Flow Rate FiO2 01/13/17 12:02 98.8 90 18 143/96 (112) 99 01/13/17 08:00 Room Air I/O 01/13/17 01/13/17 01/14/17 08:00 16:00 00:00 Intake Total 700 ml Balance 700 ml Lab Results Test 01/12/17 15:44 01/13/17 07:47 White Blood Count 14.8 TH/MM3 11.6 TH/MM3 Red Blood Count 2.62 MIL/MM3 3.16 MIL/MM3 Hemoglobin 7.3 GM/DL 8.7 GM/DL Hematocrit 22.7 % 26.9 % Mean Corpuscular Volume 86.7 FL 85.1 FL Mean Corpuscular Hemoglobin 27.9 PG 27.5 PG Mean Corpuscular Hemoglobin Concent 32.2 % 32.3 % Red Cell Distribution Width 18.1 % 19.4 % Platelet Count 101 TH/MM3 91 TH/MM3 Mean Platelet Volume 10.1 FL 10.2 FL CBC Comment AUTO DIFF AUTO DIFF Differential Total Cells Counted 100 100 Neutrophils % (Manual) 67 % 56 % Band Neutrophils % 21 % 26 % Lymphocytes % 1 % 2 % Monocytes % 4 % 7 % Basophils % 1 % Neutrophils # (Manual) 13.9 TH/MM3 10.6 TH/MM3 Metamyelocytes 3 % 4 % Myelocytes 3 % 4 % Differential Comment FINAL DIFF MANUAL FINAL DIFF MANUAL Toxic Granulation 2+ 1+ Dohle Bodies PRESENT PRESENT Platelet Estimate LOW LOW Platelet Morphology Comment NORMAL NORMAL Neutrophils (%) (Auto) 86.1 % Lymphocytes (%) (Auto) 3.4 % Monocytes (%) (Auto) 9.5 % Eosinophils (%) (Auto) 0.4 % Basophils (%) (Auto) 0.6 % Neutrophils # (Auto) 10.0 TH/MM3 Lymphocytes # (Auto) 0.4 TH/MM3 Monocytes # (Auto) 1.1 TH/MM3 Eosinophils # (Auto) 0.0 TH/MM3 Basophils # (Auto) 0.1 TH/MM3 Promyelocytes 1 % Date/Time Source Procedure Growth Status 01/04/17 15:39 Blood Peripheral Aerobic Blood Culture - Final NO GROWTH IN 5 DAYS Complete 01/04/17 15:39 Blood Peripheral Anaerobic Blood Culture - Final NO GROWTH IN 5 DAYS Complete 11/05/16 16:35 Urine Catheterized Urine Urine Culture - Final 50-100,000 CFU/ML MIXED GRAM POSITIVE... Complete 11/07/16 14:09 Wound Buttock Gram Stain - Final Complete 11/07/16 14:09 Wound Culture - Final Escherichia Coli Complete Mental Status Examination Appearance: Appropriate Consciousness: Alert Orientation: x4 Motor Activity: Normal gait Speech: Unremarkable Language: Adequate Fund of Knowledge: Adequate Attention and Concentration: Adequate Memory: Unremarkable Mood: Appropriate Affect: Appropriate Thought Process & Associations: Intact Thought Content: Appropriate Hallucination Type: None Delusion Type: None Suicidal Ideation: No Suicidal Plan: No Suicidal Intention: No Homicidal Ideation: No Homicidal Plan: No Homicidal Intention: No Insight: Adequate Judgment: Adequate Assessment & Plan Problem List: (1) Adjustment disorder with depressed mood ICD Codes: F43.21 - Adjustment disorder with depressed mood Assessment & Plan: On somatic evaluation the patient does not present any significant sentimental use depression, anxiety, gloria or psychosis. The patient denies suicidal and homicidal ideation, she denies visual and auditory hallucinations. No psychotropics indicated this moment. Brief supportive psychotherapy provided. Patient does not meet criteria for psychiatric admission at this moment. Assessment & Plan Estimated LOS: Jenaro Mathias MD Jan 13, 2017 14:03
--- NOTE | 2017-01-13 16:26 | HHI.IDPN ---
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, on HD; S/P PD cath Notes reviewed Temps ok WBC high Psych consult noted Brain MRI negative Crypto Ag negative Antibiotics I attest that I obtained, updated or reviewed the home and current medications. Rifampin Biaxin Ethambutol Bactrim PCP prophylaxis Current Medications Medications (Trade) Dose Ordered Sig/Nyla Route Start Time Stop Time Status Last Admin (NS Flush) 2 ml UNSCH PRN IV FLUSH 11/05/16 16:15 (Tylenol) 650 mg Q4H PRN PO 11/05/16 16:15 01/13/17 03:43 (Zofran Inj) 4 mg Q6H PRN IVP 11/05/16 16:15 01/06/17 19:42 (Heparin Inj) 5,000 units Q12H SQ 11/05/16 17:00 Future Hold 12/08/16 18:16 (Narcan Inj) 0.4 mg UNSCH PRN IV 11/05/16 16:15 (Dee-Colace) 1 tab BID PO 11/05/16 21:00 01/12/17 19:57 (Milk Of Magnesia Liq) 30 ml Q12H PRN PO 11/05/16 16:15 (Senokot) 17.2 mg Q12H PRN PO 11/05/16 16:15 (Dulcolax Supp) 10 mg DAILY PRN RECTAL 11/05/16 16:15 (Lactulose Liq) 30 ml DAILY PRN PO 11/05/16 16:15 (Pill Splitter) 1 ea UNSCH PRN OTHER 11/13/16 14:30 Sodium Chloride 1,000 ml @ 0 mls/hr Q0M PRN IV 11/13/16 17:02 01/03/17 11:10 (Heparin Inj) 8,000 units UNSCH PRN IVF 11/13/16 17:15 12/31/16 09:59 Sodium Chloride 1,000 ml @ 200 mls/hr Q5H PRN IV 11/13/16 17:02 Sodium Chloride 1,000 ml @ 0 mls/hr Q0M PRN IV 11/13/16 17:02 (Mannitol Inj) 12.5 gm UNSCH PRN IV 11/13/16 17:15 (Albumin 25% Inj) 25 gm UNSCH PRN IV 11/13/16 17:15 12/31/16 09:58 (NS Flush) 5 ml UNSCH PRN IV FLUSH 11/13/16 17:15 12/17/16 10:57 (Heparin Inj) UNSCH PRN .XX 11/13/16 17:15 01/05/17 11:54 (Gentamicin (Dialysis) Inj) 20 mg UNSCH PRN IV 11/13/16 17:15 01/07/17 12:29 (Zofran Inj) 4 mg UNSCH PRN IV 11/13/16 17:15 12/09/16 20:25 (Tylenol) 650 mg UNSCH PRN PO 11/13/16 17:15 01/03/17 21:57 (Benadryl) 25 mg UNSCH PRN PO 11/13/16 17:15 01/13/17 03:43 (Nitrostat Sl) 0.4 mg UNSCH PRN SL 11/13/16 17:15 (Catapres) 0.1 mg UNSCH PRN PO 11/13/16 17:15 12/08/16 13:25 (Gelfoam 12 Mm/7 Mm Top) 1 foam UNSCH PRN TOP 11/13/16 17:15 (Lopressor) 50 mg Q12HR PO 11/16/16 21:00 Future Hold 12/02/16 08:53 (Norvasc) 5 mg DAILY PO 11/19/16 12:00 Future Hold 12/02/16 08:53 (Biaxin) 500 mg Q12HR PO 11/21/16 21:00 01/13/17 08:41 (NS Flush) UNSCH PRN IVF 11/29/16 18:15 (Heparin Inj) UNSCH PRN IV FLUSH 11/29/16 18:15 12/06/16 10:15 (Lactinex) 1 tab Q12HR PO 12/02/16 10:00 01/13/17 08:41 (Myambutol) 800 mg DAILY PO 12/04/16 09:00 01/13/17 08:41 (Epogen Inj) 10,000 units UNSCH PRN IV 12/06/16 09:30 01/07/17 12:29 (Rifampin) 300 mg Q12HR PO 12/09/16 21:00 01/13/17 08:41 (NS Flush) 2 ml UNSCH PRN IV FLUSH 12/14/16 10:45 (NS Flush) 2 ml BID IV FLUSH 12/14/16 21:00 01/13/17 08:41 ([place] 5-325 Mg) 1 tab Q4H PRN PO 12/14/16 10:45 ([place] 5-325 Mg) 2 tab Q4H PRN PO 12/14/16 10:45 Potassium Chloride/Sodium Chloride 1,000 ml @ 42 mls/hr [id number] IV 01/09/17 15:00 01/13/17 07:24 (Bactrim Ds 800-160 Mg) 1 tab MoWeFr@09 PO 01/13/17 09:00 01/13/17 08:41 Lines permacath Past Medical History HIV, for 20+years, noncompliant with medications for the past 2 months Kidney stones Allergies: Coded Allergies: No Known Allergies (Unverified , 11/05/16) Objective . Vital Signs Date Time Temp Pulse Resp B/P (MAP) Pulse Ox O2 Delivery O2 Flow Rate FiO2 01/13/17 12:02 98.8 90 18 143/96 (112) 99 01/13/17 08:02 98.5 90 18 130/89 (103) 100 01/13/17 08:00 Room Air 01/13/17 08:00 90 01/13/17 04:50 98.6 88 18 160/96 96 01/13/17 04:30 98.8 90 18 158/96 98 01/13/17 04:14 98.8 87 18 163/93 01/13/17 04:00 98.6 86 18 147/96 100 01/13/17 04:00 01/13/17 00:00 98.9 97 20 129/89 (102) 100 01/12/17 20:00 110 01/12/17 20:00 Room Air 01/12/17 19:00 99.0 109 20 129/90 (103) 100 . Laboratory Tests Test 01/12/17 15:44 01/13/17 07:47 White Blood Count 14.8 TH/MM3 11.6 TH/MM3 Red Blood Count 2.62 MIL/MM3 3.16 MIL/MM3 Hemoglobin 7.3 GM/DL 8.7 GM/DL Hematocrit 22.7 % 26.9 % Mean Corpuscular Volume 86.7 FL 85.1 FL Mean Corpuscular Hemoglobin 27.9 PG 27.5 PG Mean Corpuscular Hemoglobin Concent 32.2 % 32.3 % Red Cell Distribution Width 18.1 % 19.4 % Platelet Count 101 TH/MM3 91 TH/MM3 Mean Platelet Volume 10.1 FL 10.2 FL CBC Comment AUTO DIFF AUTO DIFF Differential Total Cells Counted 100 100 Neutrophils % (Manual) 67 % 56 % Band Neutrophils % 21 % 26 % Lymphocytes % 1 % 2 % Monocytes % 4 % 7 % Basophils % 1 % Neutrophils # (Manual) 13.9 TH/MM3 10.6 TH/MM3 Metamyelocytes 3 % 4 % Myelocytes 3 % 4 % Differential Comment FINAL DIFF MANUAL FINAL DIFF MANUAL Toxic Granulation 2+ 1+ Dohle Bodies PRESENT PRESENT Platelet Estimate LOW LOW Platelet Morphology Comment NORMAL NORMAL Neutrophils (%) (Auto) 86.1 % Lymphocytes (%) (Auto) 3.4 % Monocytes (%) (Auto) 9.5 % Eosinophils (%) (Auto) 0.4 % Basophils (%) (Auto) 0.6 % Neutrophils # (Auto) 10.0 TH/MM3 Lymphocytes # (Auto) 0.4 TH/MM3 Monocytes # (Auto) 1.1 TH/MM3 Eosinophils # (Auto) 0.0 TH/MM3 Basophils # (Auto) 0.1 TH/MM3 Promyelocytes 1 % Imaging Last Impressions Renal Biopsy CT 12/01/16 0600 Signed Impressions: Service Date/Time: November 14:17 - CONCLUSION: Uncomplicated CT guided biopsy. Alexis Adhikari MD Central Venous Line 11/29/16 0000 Signed Impressions: Service Date/Time: Tuesday, November 29, 2016 00:00 - CONCLUSION: Uncomplicated catheter removal. Solitario Diaz MD Catheter Placement X-Ray 11/29/16 0000 Signed Impressions: Service Date/Time: Tuesday, November 29, 2016 13:58 - CONCLUSION: Uncomplicated PermaCath placement as above. Solitario Diaz MD Tumor Localization 11/14/16 0000 Signed Impressions: Service Date/Time: Monday, November 14, 2016 11:38 - CONCLUSION: Negative scan Solitario Diaz MD Chest X-Ray 11/13/16 0000 Signed Impressions: Service Date/Time: Sunday, November 13, 2016 16:02 - CONCLUSION: No acute cardiopulmonary disease. Quincy Medellin MD Renal Ultrasound 11/05/16 0000 Signed Impressions: Service Date/Time: Saturday, November 05, 2016 19:17 - CONCLUSION: Diffusely echogenic kidneys indicating medical renal disease. Dorian Murry MD Abdomen/Pelvis CT 11/05/16 Signed Impressions: Service Date/Time: Saturday, November 05, 2016 17:19 - CONCLUSION: 1. 4 mm calculus in the right renal pelvis/ureteropelvic junction with mild adjacent perinephric/periureteral stranding. No evidence of hydronephrosis. 2. 1 cm round hypodensity in the anterior right mid kidney statistically most likely to represent a cyst. 3. 3.7 cm hypodensity in the right lobe of the liver air the dome of the diaphragm. This finding is nonspecific on noncontrast CT. The most likely etiologies include hemangioma and cyst. It could be further evaluated with ultrasound nonemergent followup MRI of the abdomen. 4. Mild dilated proximal right common iliac artery. Dorian Murry MD Physical Exam GENERAL: awake, following commands, not in respiratory distress. SKIN: Warm and dry. Dry skin EYES: [place] conjunctiva. No petechia or hemorrhage. No scleral icterus. No injection or drainage. EARS, NOSE AND THROAT: Nose without bleeding or purulent nasal discharge. Mucous membranes pink and moist. White coating on tongue NECK: Trachea midline. Supple and not tender, no meningeal signs CARDIOVASCULAR: Regular rate and rhythm. No murmurs, rubs or gallops heard RESPIRATORY: Clear to auscultation. Breath sounds equal bilaterally. No rales , wheezing or rhonchi ABDOMEN: Soft, not tender, not distended, dry dressing over cath. No guarding. No rebound. No organomegaly. Has stable oblong brown non tender nodule on R lateral groin (chronic been there for years, not getting bigger) EXTREMITIES: No clubbing, cyanosis, or edema. No joint effusion, has good ROM. No calf tenderness. Well perfused and warm. BUTTOCK: Ulcers healed NEUROLOGICAL: Awake alert Non-focal except that he is not speaking PSYCHIATRIC: Normal affect, calm and cooperative. 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, has severe vasculitis, ?other etiology, no evidence Ethambutol toxicity per ophth eval - S/P induction Rx with ganciclovir - CMV PCR negative - CMV Ab (+) Severe neutropenia, ?due to valcyte, resolved - last dose give 01/02 - on neupogen Altered neuro status, ?etiology - work-up negative - ?psych, ?depression RECOMMENDATION Continue Biaxin Continue EMB Continue Rifampin Continue PCP prophylaxis Should be able to look at D/C again since mental status seems back to baseline, and psych has seen patient, no intervention recommended at this time He needs referral to ID - Dr Paul, so he can be evaluated for his HAART and look at options for CMV maintenance Rx Bozena Chambers MD Jan 13, 2017 16:26
--- NOTE | 2017-01-13 17:27 | HHI.PR ---
Subjective Remarks Resting in bed comfortable Afebrile overnight, answer simple questions Seen by psychiatry no recommendation for patient psych ID hematology and nephrology following Objective Vitals Vital Signs Date Time Temp Pulse Resp B/P (MAP) Pulse Ox O2 Delivery O2 Flow Rate FiO2 01/13/17 12:02 98.8 90 18 143/96 (112) 99 01/13/17 08:02 98.5 90 18 130/89 (103) 100 01/13/17 08:00 Room Air 01/13/17 08:00 90 01/13/17 04:50 98.6 88 18 160/96 96 01/13/17 04:30 98.8 90 18 158/96 98 01/13/17 04:14 98.8 87 18 163/93 01/13/17 04:00 98.6 86 18 147/96 100 01/13/17 04:00 01/13/17 00:00 98.9 97 20 129/89 (102) 100 01/12/17 20:00 110 01/12/17 20:00 Room Air 01/12/17 19:00 99.0 109 20 129/90 (103) 100 I/O 01/12/17 01/12/17 01/12/17 01/13/17 01/13/17 01/13/17 07:00 15:00 23:00 07:00 15:00 23:00 Intake Total 0 ml 120 ml 700 ml Output Total 1000 ml Balance 0 ml -1000 ml 120 ml 700 ml Intake Oral 0 ml 120 ml 300 ml Packed Cells 400 ml Hemodialysis 1000 ml # Voids 0 2 1 # Bowel Movements 0 3 1 Result Diagram: 01/13/17 0747 01/11/17 0559 Objective Remarks - GENERAL: This is a well-nourished, well-developed patient, in no apparent distress. SKIN: No rashes, warm and dry HEAD: Atraumatic. Normocephalic. EYES: Pupils equal round and reactive. Extraocular motions intact. No scleral icterus. ENT: Nose without bleeding, or drainage, Airway patent. NECK: Trachea midline. Supple CARDIOVASCULAR: Regular rate and rhythm without murmurs, gallops, or rubs. RESPIRATORY: Fair air entry bilaterally. No wheezes, rales, or rhonchi. GASTROINTESTINAL: Abdomen soft, non-tender, nondistended. Positive bowel sounds MUSCULOSKELETAL: Extremities without clubbing, cyanosis, or edema. Pedal pulses appreciated NEUROLOGICAL: Awake and alert noncommunicative, moves all extremity. Not able to assess speech due to patient not answering question Procedures 11/14/16 hemodialysis catheter placement, right internal jugular 12/14 PD cath placement A/P Problem List: (1) Renal failure ICD Code: N19 - Unspecified kidney failure Status: Acute (2) Sepsis ICD Code: A41.9 - Sepsis, unspecified organism Status: Acute (3) UTI (urinary tract infection) ICD Code: N39.0 - Urinary tract infection, site not specified (4) Chronic kidney disease, stage V ICD Code: N18.5 - Chronic kidney disease, stage 5 (5) HIV (human immunodeficiency virus infection) ICD Code: B20 - Human immunodeficiency virus [HIV] disease (6) Anemia ICD Code: D64.9 - Anemia, unspecified (7) Hypertension ICD Code: I10 - Essential (primary) hypertension (8) Medical non-compliance ICD Code: Z91.19 - Patient's noncompliance with other medical treatment and regimen Assessment and Plan 01/11: Slight change in mental status, discussed with ID who more appreciate that changes since this is my first time seeing the patient. We will continue continue current management and monitor neurochecks 01/12: MRI of the brain with unremarkable, response to simple question is better today, continue current management and follow up with ID recommendation 01/13: Appreciate psychiatry consultation, no need for inpatient psychiatry or medication, continue following with ID nephrology and hematology A/P: 1. Severe sepsis secondary to UTI, pneumonia: Status post treatment with Zosyn. Patient is immunocompromised, noncompliant with HAART for 2 months prior to admission. HSV positive. 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 Blood mycobacterial culture growing acid fast organism. Further ID pending. Still having fevers. 2. Acute renal failure superimposed on chronic kidney disease stage V: Appreciate nephrology recommendations. SPEP, serology negative. Creatinine not improving. Hemodialysis per nephrology.renal bx :FSGN 3. HIV/AIDS: CD4 count less than 20. Patient admitted to being noncompliant with HAART meds. He has been counseled. 4. Oral thrush: Continue nystatin. 5. Anemia: Hemoglobin trending down again. Monitor H/H. Received transfusion 1 unit PRBCs on 12/08/16. He has received 7 units total during this hospitalization. 6. Hypertension, tachycardia: Continue metoprolol. 7. Buttock, perirectal wounds: HSV positive. Continue Valtrex 14 days then chronic suppression with acyclovir. 8. Neutropenia: Management per hematology. Given Neupogen. 9. DVT prophylaxis: Heparin. 10. 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 11. Poor oral intake: Continue gentle IV fluid hydration. Problem Qualifiers (1) Renal failure: (2) Sepsis: (3) Anemia: Maggy Cordero MD Jan 13, 2017 17:27
[2017-01-14] VITALS (9 sets, daily range): BP systolic 120–172; BP diastolic 66–100; PULSE 86–130; RESP 18–19; TEMP 98.4–103.3; O2SAT 98–100
[2017-01-14] MEDS: NS + KCL 20 MEQ INJ 1,000 ML IV SCH ×2 (06:17→14:52)
[2017-01-14 08:13] LABS: AUTOMATED NEUTROPHIL # 9.9 TH/MM3 (1.8-7.7); BASOPHIL # 0.1 TH/MM3 (0-0.2); BASOPHIL % 0.8 % (0.0-2.0); EOSINOPHIL # 0.1 TH/MM3 (0-0.4); EOSINOPHIL % 0.5 % (0.0-4.0); HEMATOCRIT 26.8 % (39.0-51.0); LYMPH % 2.5 % (9.0-44.0); LYMPHOCYTE # 0.3 TH/MM3 (1.0-4.8); MEAN CELL VOLUME 85.2 FL (80.0-100.0); MEAN CORPUSCULAR HEMOGLOBIN 27.1 PG (27.0-34.0); MEAN CORPUSCULAR HGB CONC 31.8 % (32.0-36.0); MONO % 10.9 % (0.0-8.0); NEUT % 85.3 % (16.0-70.0); PLATELET COUNT 90 TH/MM3 (150-450); RED BLOOD COUNT 3.14 MIL/MM3 (4.50-5.90); RED CELL DISTRIBUTION WIDTH 19.2 % (11.6-17.2); WHITE BLOOD COUNT 11.6 TH/MM3 (4.0-11.0)
[2017-01-14 08:19] LABS: HEMO FLAGS AUTO DIFF
[2017-01-14 08:54] LABS: BANDS 10 % (0-6); BASOPHILS 1 % (0-2); EOSINOPHILS 2 % (0-4); METAMYELOCYTES 4 % (0-1); NEUTROPHIL # MANUAL DIFF 9.4 TH/MM3 (1.8-7.7); PLATELET ESTIMATE SMEAR LOW (NORMAL); POLYS (SEG NEUTROPHILS) 67 % (16-70); TOXIC GRANULATION 1+ (NORMAL); WBC DIFF SAMPLE 100
[2017-01-14 08:55] LABS: PLATELET MORPHOLOGY ENLARGED (NORMAL); SCAN/DIFF FINAL DIFF MANUAL
[2017-01-14] MEDS: ETHAMBUTOL HCL 400 MG TAB PO SCH ×2 (09:00→09:43)
[2017-01-14] MEDS: CLARITHROMYCIN 500 MG TAB PO SCH ×3 (09:43→22:58)
[2017-01-14] MEDS: LACTOBACILLUS ACIDOPHILUS TAB PO SCH ×3 (09:43→21:00)
[2017-01-14] MEDS: SODIUM CHLORIDE 0.9% FLUSH 10 ML FLUSH IV FLUSH SCH ×2 (09:44→23:02)
[2017-01-14] MEDS: DOCUSATE SODIUM 50 MG/SENNA 8.6 MG TAB PO SCH ×2 (09:44→21:00)
[2017-01-14] MEDS: RIFAMPIN 150 MG CAP PO SCH ×3 (09:44→22:58)
--- NOTE | 2017-01-14 11:09 | HHI.NPPN ---
Subjective History of Present Illness 50-year-old male with past medical history of HIV disease for more than 20 years and history of renal stone who came to the hospital with complaint of back pain. The patient has back pain going on for the last 2 months off and on and he came to the emergency department yesterday with worsening pain. Additional Remarks Patient is alert, no SOB, no abd. pain, started eating better, spike fever last night. Review of Systems General Constitutional: Fatigue Cardiovascular Cardiac: MIRZA Objective Data Data Vital Signs Date Time Temp Pulse Resp B/P (MAP) Pulse Ox O2 Delivery O2 Flow Rate FiO2 01/14/17 08:00 98.9 86 18 143/97 (112) 100 01/14/17 04:00 98.4 92 18 143/93 (110) 100 01/14/17 00:00 101.4 102 18 151/91 (111) 100 01/13/17 20:00 99.5 99 17 151/93 (112) 99 01/13/17 20:00 Room Air 01/13/17 20:00 92 01/13/17 16:02 100.1 101 18 154/99 (117) 98 01/13/17 12:02 98.8 90 18 143/96 (112) 99 -: 01/14/17 0800 01/11/17 0559 Physical Exam General Appearance: No Acute Distress, Comfortable Eyes Eye Exam: Pupils Equal Throat Throat Exam: Oral Mucosa [place] & Moist Pulmonary Resp Exam: Breath Sounds Equal, No Distress, Rhonchi, Decreased Bases Cardiology CV Exam: Regular, Normal Sinus Rhythm Gastrointestinal/Abdomen GI Exam: Soft, Non-Tender, Bowel Sounds Present Extremeties Extremities Exam: No Edema Neurologic Neuro Exam: Alert, Awake, Oriented Psychiatric Psych Exam: Appropriate Responses Assessment/Plan Assessment Summary: MIKE/Acute Renal Failure Problem List: (1) Renal failure ICD Codes: N19 - Unspecified kidney failure Status: Acute (2) Sepsis ICD Codes: A41.9 - Sepsis, unspecified organism Status: Acute (3) Open wound of scrotum ICD Codes: S31.30XA - Unspecified open wound of scrotum and testes, initial encounter Status: Acute Plan c/o blurry vision left eye Remain non oliguric. SPEP was negative. Complements normal, other serology also negative. BP is better, on Metoprolol to 50 mg BID. If renal function will not improve, will consider Renal Biopsy once infection is controlled. Fever pattern is better, ID is following. Now on Bactrim, Acyclovir, Clarithromycin and Ethambutol. No improvement in renal function. Possibly has End stage renal disease. Got PermCath. 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 No need to repeat the renal Biopsy as clinically he is showing no improvement, and the with advance HIV , the treatment options are limited, cannot be given immunosuppressive drugs. He understand increase risk of infection due to advance HIV. Has PD catheter done. Now on Valganciclovir, ID following. Gallium scan is negative. HD to continue TTS. On Epogen , follow Hgb. Transfuse as needed. WBC better with Neupogen. MRI results noted. Jareth fever, ID following. HD today. Problem Qualifiers (1) Renal failure: (2) Sepsis: Kwadwo Shah MD Jan 14, 2017 11:08
--- NOTE | 2017-01-14 12:44 | HHI.IDPN ---
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, on HD; S/P PD cath Notes reviewed Temps up again last night Restarted on Bactrim for PCP prophylaxis, got first dose yesterday morning For HD today No new complaints WBC remain good Antibiotics I attest that I obtained, updated or reviewed the home and current medications. Rifampin Biaxin Ethambutol Bactrim PCP prophylaxis Current Medications Medications (Trade) Dose Ordered Sig/Nyla Route Start Time Stop Time Status Last Admin (NS Flush) 2 ml UNSCH PRN IV FLUSH 11/05/16 16:15 (Tylenol) 650 mg Q4H PRN PO 11/05/16 16:15 01/13/17 23:49 (Zofran Inj) 4 mg Q6H PRN IVP 11/05/16 16:15 01/06/17 19:42 (Heparin Inj) 5,000 units Q12H SQ 11/05/16 17:00 Future Hold 12/08/16 18:16 (Narcan Inj) 0.4 mg UNSCH PRN IV 11/05/16 16:15 (Dee-Colace) 1 tab BID PO 11/05/16 21:00 01/12/17 19:57 (Milk Of Magnesia Liq) 30 ml Q12H PRN PO 11/05/16 16:15 (Senokot) 17.2 mg Q12H PRN PO 11/05/16 16:15 (Dulcolax Supp) 10 mg DAILY PRN RECTAL 11/05/16 16:15 (Lactulose Liq) 30 ml DAILY PRN PO 11/05/16 16:15 (Pill Splitter) 1 ea UNSCH PRN OTHER 11/13/16 14:30 Sodium Chloride 1,000 ml @ 0 mls/hr Q0M PRN IV 11/13/16 17:02 01/03/17 11:10 (Heparin Inj) 8,000 units UNSCH PRN IVF 11/13/16 17:15 12/31/16 09:59 Sodium Chloride 1,000 ml @ 200 mls/hr Q5H PRN IV 11/13/16 17:02 Sodium Chloride 1,000 ml @ 0 mls/hr Q0M PRN IV 11/13/16 17:02 (Mannitol Inj) 12.5 gm UNSCH PRN IV 11/13/16 17:15 (Albumin 25% Inj) 25 gm UNSCH PRN IV 11/13/16 17:15 12/31/16 09:58 (NS Flush) 5 ml UNSCH PRN IV FLUSH 11/13/16 17:15 12/17/16 10:57 (Heparin Inj) UNSCH PRN .XX 11/13/16 17:15 01/05/17 11:54 (Gentamicin (Dialysis) Inj) 20 mg UNSCH PRN IV 11/13/16 17:15 01/07/17 12:29 (Zofran Inj) 4 mg UNSCH PRN IV 11/13/16 17:15 12/09/16 20:25 (Tylenol) 650 mg UNSCH PRN PO 11/13/16 17:15 01/03/17 21:57 (Benadryl) 25 mg UNSCH PRN PO 11/13/16 17:15 01/13/17 03:43 (Nitrostat Sl) 0.4 mg UNSCH PRN SL 11/13/16 17:15 (Catapres) 0.1 mg UNSCH PRN PO 11/13/16 17:15 12/08/16 13:25 (Gelfoam 12 Mm/7 Mm Top) 1 foam UNSCH PRN TOP 11/13/16 17:15 (Lopressor) 50 mg Q12HR PO 11/16/16 21:00 Future Hold 12/02/16 08:53 (Norvasc) 5 mg DAILY PO 11/19/16 12:00 Future Hold 12/02/16 08:53 (Biaxin) 500 mg Q12HR PO 11/21/16 21:00 01/14/17 09:43 (NS Flush) UNSCH PRN IVF 11/29/16 18:15 (Heparin Inj) UNSCH PRN IV FLUSH 11/29/16 18:15 12/06/16 10:15 (Lactinex) 1 tab Q12HR PO 12/02/16 10:00 01/14/17 09:43 (Myambutol) 800 mg DAILY PO 12/04/16 09:00 01/14/17 09:43 (Epogen Inj) 10,000 units UNSCH PRN IV 12/06/16 09:30 01/07/17 12:29 (Rifampin) 300 mg Q12HR PO 12/09/16 21:00 01/14/17 09:44 (NS Flush) 2 ml UNSCH PRN IV FLUSH 12/14/16 10:45 (NS Flush) 2 ml BID IV FLUSH 12/14/16 21:00 01/13/17 08:41 ([place] 5-325 Mg) 1 tab Q4H PRN PO 12/14/16 10:45 ([place] 5-325 Mg) 2 tab Q4H PRN PO 12/14/16 10:45 Potassium Chloride/Sodium Chloride 1,000 ml @ 42 mls/hr [id number] IV 01/09/17 15:00 01/14/17 06:17 (Bactrim Ds 800-160 Mg) 1 tab MoWeFr@09 PO 01/13/17 09:00 01/13/17 08:41 Lines permacath Past Medical History HIV, for 20+years, noncompliant with medications for the past 2 months Kidney stones Allergies: Coded Allergies: No Known Allergies (Unverified , 11/05/16) Objective . Vital Signs Date Time Temp Pulse Resp B/P (MAP) Pulse Ox O2 Delivery O2 Flow Rate FiO2 01/14/17 12:00 101.9 99 18 172/100 (124) 100 01/14/17 09:50 Room Air 01/14/17 09:50 90 01/14/17 08:00 98.9 86 18 143/97 (112) 100 01/14/17 04:00 98.4 92 18 143/93 (110) 100 01/14/17 00:00 101.4 102 18 151/91 (111) 100 01/13/17 20:00 99.5 99 17 151/93 (112) 99 01/13/17 20:00 Room Air 01/13/17 20:00 92 01/13/17 16:02 100.1 101 18 154/99 (117) 98 . Laboratory Tests Test 01/12/17 15:44 01/13/17 07:47 01/14/17 08:00 White Blood Count 14.8 TH/MM3 11.6 TH/MM3 11.6 TH/MM3 Red Blood Count 2.62 MIL/MM3 3.16 MIL/MM3 3.14 MIL/MM3 Hemoglobin 7.3 GM/DL 8.7 GM/DL 8.5 GM/DL Hematocrit 22.7 % 26.9 % 26.8 % Mean Corpuscular Volume 86.7 FL 85.1 FL 85.2 FL Mean Corpuscular Hemoglobin 27.9 PG 27.5 PG 27.1 PG Mean Corpuscular Hemoglobin Concent 32.2 % 32.3 % 31.8 % Red Cell Distribution Width 18.1 % 19.4 % 19.2 % Platelet Count 101 TH/MM3 91 TH/MM3 90 TH/MM3 Mean Platelet Volume 10.1 FL 10.2 FL 9.4 FL CBC Comment AUTO DIFF AUTO DIFF AUTO DIFF Differential Total Cells Counted 100 100 100 Neutrophils % (Manual) 67 % 56 % 67 % Band Neutrophils % 21 % 26 % 10 % Lymphocytes % 1 % 2 % 5 % Monocytes % 4 % 7 % 11 % Basophils % 1 % 1 % Neutrophils # (Manual) 13.9 TH/MM3 10.6 TH/MM3 9.4 TH/MM3 Metamyelocytes 3 % 4 % 4 % Myelocytes 3 % 4 % Differential Comment FINAL DIFF MANUAL FINAL DIFF MANUAL FINAL DIFF MANUAL Toxic Granulation 2+ 1+ 1+ Dohle Bodies PRESENT PRESENT Platelet Estimate LOW LOW LOW Platelet Morphology Comment NORMAL NORMAL ENLARGED Neutrophils (%) (Auto) 86.1 % 85.3 % Lymphocytes (%) (Auto) 3.4 % 2.5 % Monocytes (%) (Auto) 9.5 % 10.9 % Eosinophils (%) (Auto) 0.4 % 0.5 % Basophils (%) (Auto) 0.6 % 0.8 % Neutrophils # (Auto) 10.0 TH/MM3 9.9 TH/MM3 Lymphocytes # (Auto) 0.4 TH/MM3 0.3 TH/MM3 Monocytes # (Auto) 1.1 TH/MM3 1.3 TH/MM3 Eosinophils # (Auto) 0.0 TH/MM3 0.1 TH/MM3 Basophils # (Auto) 0.1 TH/MM3 0.1 TH/MM3 Promyelocytes 1 % Eosinophils % 2 % Imaging Last Impressions Renal Biopsy CT 12/01/16 0600 Signed Impressions: Service Date/Time: November 14:17 - CONCLUSION: Uncomplicated CT guided biopsy. Alexis Adhikari MD Central Venous Line 9/5/17 0000 Signed Impressions: Service Date/Time: Tuesday, November 29, 2016 00:00 - CONCLUSION: Uncomplicated catheter removal. Solitario Diaz MD Catheter Placement X-Ray 11/29/16 Signed Impressions: Service Date/Time: Tuesday, November 29, 2016 13:58 - CONCLUSION: Uncomplicated PermaCath placement as above. Solitario Diaz MD Tumor Localization 11/14/16 Signed Impressions: Service Date/Time: Monday, November 14, 2016 11:38 - CONCLUSION: Negative scan Solitario Diaz MD Chest X-Ray 11/13/16 Signed Impressions: Service Date/Time: Sunday, November 13, 2016 16:02 - CONCLUSION: No acute cardiopulmonary disease. Quincy Medellin MD Renal Ultrasound 11/05/16 Signed Impressions: Service Date/Time: Saturday, November 05, 2016 19:17 - CONCLUSION: Diffusely echogenic kidneys indicating medical renal disease. Dorian Murry MD Abdomen/Pelvis CT 11/05/16 Signed Impressions: Service Date/Time: Saturday, November 05, 2016 17:19 - CONCLUSION: 1. 4 mm calculus in the right renal pelvis/ureteropelvic junction with mild adjacent perinephric/periureteral stranding. No evidence of hydronephrosis. 2. 1 cm round hypodensity in the anterior right mid kidney statistically most likely to represent a cyst. 3. 3.7 cm hypodensity in the right lobe of the liver air the dome of the diaphragm. This finding is nonspecific on noncontrast CT. The most likely etiologies include hemangioma and cyst. It could be further evaluated with ultrasound nonemergent followup MRI of the abdomen. 4. Mild dilated proximal right common iliac artery. Dorian Murry MD Physical Exam GENERAL: awake, following commands, not in respiratory distress. SKIN: Warm and dry. Dry skin EYES: [place] conjunctiva. No petechia or hemorrhage. No scleral icterus. No injection or drainage. EARS, NOSE AND THROAT: Nose without bleeding or purulent nasal discharge. Mucous membranes pink and moist. White coating on tongue NECK: Trachea midline. Supple and not tender, no meningeal signs CARDIOVASCULAR: Regular rate and rhythm. No murmurs, rubs or gallops heard RESPIRATORY: Clear to auscultation. Breath sounds equal bilaterally. No rales , wheezing or rhonchi ABDOMEN: Soft, not tender, not distended, dry dressing over cath. No guarding. No rebound. No organomegaly. Has stable oblong brown non tender nodule on R lateral groin (chronic been there for years, not getting bigger) EXTREMITIES: No clubbing, cyanosis, or edema. No joint effusion, has good ROM. No calf tenderness. Well perfused and warm. BUTTOCK: Ulcers healed NEUROLOGICAL: Awake alert Non-focal PSYCHIATRIC: Normal affect, calm and cooperative. 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
[2017-01-14] MEDS: ACETAMINOPHEN 325 MG TAB PO PRN (12:46)
[2017-01-14] MEDS: cloNIDine HCL 0.1 MG TAB PO PRN (12:46)
[2017-01-14] MEDS: HEPARIN SODIUM - IV 10,000 UNITS/10 ML VIAL PRN (17:48)
[2017-01-14] MEDS: EPOETIN ALFA 10,000 UNITS/ML VIAL IV PRN (17:48)
[2017-01-14] MEDS: GENTAMICIN SULFATE (DIALYSIS USE ONLY) 20 MG/2 ML VIAL IV PRN (17:48)
--- NOTE | 2017-01-14 18:03 | HHI.PR ---
Subjective Remarks Patient and dialysis Feeling tired Had a fever of 101.4 last night Objective Vitals Vital Signs Date Time Temp Pulse Resp B/P (MAP) Pulse Ox O2 Delivery O2 Flow Rate FiO2 01/14/17 16:00 98.9 87 18 127/82 (97) 100 01/14/17 12:00 101.9 99 18 172/100 (124) 100 01/14/17 09:50 Room Air 01/14/17 09:50 90 01/14/17 08:00 98.9 86 18 143/97 (112) 100 01/14/17 04:00 98.4 92 18 143/93 (110) 100 01/14/17 00:00 101.4 102 18 151/91 (111) 100 01/13/17 20:00 99.5 99 17 151/93 (112) 99 01/13/17 20:00 Room Air 01/13/17 20:00 92 I/O 01/13/17 01/13/17 01/13/17 01/14/17 01/14/17 01/14/17 07:00 15:00 23:00 07:00 15:00 23:00 Intake Total 700 ml 480 ml 480 ml Output Total 200 ml Balance 700 ml 280 ml 480 ml Intake Oral 300 ml 480 ml 480 ml Packed Cells 400 ml Output Urine Total 200 ml # Voids 1 0 # Bowel Movements 1 0 0 Result Diagram: 01/14/17 0800 01/11/17 0559 Objective Remarks - GENERAL: This is a well-nourished, well-developed patient, in no apparent distress. SKIN: No rashes, warm and dry HEAD: Atraumatic. Normocephalic. EYES: Pupils equal round and reactive. Extraocular motions intact. No scleral icterus. ENT: Nose without bleeding, or drainage, Airway patent. NECK: Trachea midline. Supple CARDIOVASCULAR: Regular rate and rhythm without murmurs, gallops, or rubs. RESPIRATORY: Fair air entry bilaterally. No wheezes, rales, or rhonchi. GASTROINTESTINAL: Abdomen soft, non-tender, nondistended. Positive bowel sounds MUSCULOSKELETAL: Extremities without clubbing, cyanosis, or edema. Pedal pulses appreciated NEUROLOGICAL: Awake and alert noncommunicative, moves all extremity. Not able to assess speech due to patient not answering question Procedures 11/14/16 hemodialysis catheter placement, right internal jugular 12/14 PD cath placement A/P Problem List: (1) Renal failure ICD Code: N19 - Unspecified kidney failure Status: Acute (2) Sepsis ICD Code: A41.9 - Sepsis, unspecified organism Status: Acute (3) UTI (urinary tract infection) ICD Code: N39.0 - Urinary tract infection, site not specified (4) Chronic kidney disease, stage V ICD Code: N18.5 - Chronic kidney disease, stage 5 (5) HIV (human immunodeficiency virus infection) ICD Code: B20 - Human immunodeficiency virus [HIV] disease (6) Anemia ICD Code: D64.9 - Anemia, unspecified (7) Hypertension ICD Code: I10 - Essential (primary) hypertension (8) Medical non-compliance ICD Code: Z91.19 - Patient's noncompliance with other medical treatment and regimen Assessment and Plan 01/11: Slight change in mental status, discussed with ID who more appreciate that changes since this is my first time seeing the patient. We will continue continue current management and monitor neurochecks 01/12: MRI of the brain with unremarkable, response to simple question is better today, continue current management and follow up with ID recommendation 01/13: Appreciate psychiatry consultation, no need for inpatient psychiatry or medication, continue following with ID nephrology and hematology 01/14: Patient had a dialysis now, he had a fever of 101.4, WBC today 11.6 repeat in a.m., he is being followed by ID continue current antibiotic no change , nephrology following for dialysis, A/P: 1. Severe sepsis secondary to UTI, pneumonia: Status post treatment with Zosyn. Patient is immunocompromised, noncompliant with HAART for 2 months prior to admission. HSV positive. 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 Blood mycobacterial culture growing acid fast organism. Further ID pending. Still having fevers. 2. Acute renal failure superimposed on chronic kidney disease stage V: Appreciate nephrology recommendations. SPEP, serology negative. Creatinine not improving. Hemodialysis per nephrology.renal bx :FSGN 3. HIV/AIDS: CD4 count less than 20. Patient admitted to being noncompliant with HAART meds. He has been counseled. 4. Oral thrush: Continue nystatin. 5. Anemia: Hemoglobin trending down again. Monitor H/H. Received transfusion 1 unit PRBCs on 12/08/16. He has received 7 units total during this hospitalization. 6. Hypertension, tachycardia: Continue metoprolol. 7. Buttock, perirectal wounds: HSV positive. Continue Valtrex 14 days then chronic suppression with acyclovir. 8. Neutropenia: Management per hematology. Given Neupogen. 9. DVT prophylaxis: Heparin. 10. 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 11. Poor oral intake: Continue gentle IV fluid hydration. Problem Qualifiers (1) Renal failure: (2) Sepsis: (3) Anemia: Maggy Cordero MD Jan 14, 2017 18:03
--- NOTE | 2017-01-14 22:23 | RADRPT ---
EXAM DATE/TIME: 01/14/2017 21:41 [facility] COMPARISON: CHEST PA & LAT, January 04, 2017, 14:55. INDICATIONS : Fever. MEDICAL HISTORY : HIV. Renal calculi. SURGICAL HISTORY : None. ENCOUNTER: Subsequent ACUITY: 2 weeks PAIN SCORE: 0/10 LOCATION: Bilateral chest FINDINGS: There is mild basilar density, probably dependent atelectasis or minimal infiltrate. No effusion. No pneumothorax. [id number] in superior vena cava. Heart size mildly enlarged. CONCLUSION: 1. Mild basilar density, probably dependent atelectasis or mild infiltrate. No effusion. No pneumotho rax. Denzel Potter MD on January 14, 2017 at 22:21 Board Certified Radiologist. This report was verified electronically.
[2017-01-15] VITALS (12 sets, daily range): BP systolic 105–133; BP diastolic 63–81; PULSE 84–127; RESP 18; TEMP 98–103.6; O2SAT 98–100
[2017-01-15] MEDS: ACETAMINOPHEN 325 MG TAB PO PRN ×3 (05:32→21:38)
[2017-01-15 07:26] LABS: BACTERIA, URINE RARE /hpf; BLOOD, URINE NEG (NEG); COMMENT (UR) CULTURE INDICATED; CULTURE IF INDICATED CULTURE INDICATED; GLUCOSE,URINE 70 mg/dL (NEG); KETONE, URINE NEG (NEG); NITRITE,URINE NEG (NEG); PH, URINE 8.5 (5.0-8.5); URINE COLOR YELLOW (YELLW/STRAW)
[2017-01-15] MEDS: SODIUM CHLORIDE 0.9% FLUSH 10 ML FLUSH IV FLUSH SCH ×2 (09:44→21:00)
[2017-01-15] MEDS: RIFAMPIN 150 MG CAP PO SCH ×2 (09:44→21:00)
[2017-01-15] MEDS: ETHAMBUTOL HCL 400 MG TAB PO SCH (09:44)
[2017-01-15] MEDS: LACTOBACILLUS ACIDOPHILUS TAB PO SCH ×2 (09:44→21:00)
[2017-01-15] MEDS: CLARITHROMYCIN 500 MG TAB PO SCH ×2 (09:44→21:00)
[2017-01-15] MEDS: DOCUSATE SODIUM 50 MG/SENNA 8.6 MG TAB PO SCH ×2 (09:44→21:00)
--- NOTE | 2017-01-15 11:25 | HHI.IDPN ---
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, on HD; S/P PD cath Notes reviewed Temps up again Bactrim stopped, last dose given 01/13 Had HD yesterday No new complaints WBC remain good Antibiotics I attest that I obtained, updated or reviewed the home and current medications. Rifampin Biaxin Ethambutol Current Medications Medications (Trade) Dose Ordered Sig/Nyla Route Start Time Stop Time Status Last Admin (NS Flush) 2 ml UNSCH PRN IV FLUSH 11/05/16 16:15 (Tylenol) 650 mg Q4H PRN PO 11/05/16 16:15 01/15/17 05:32 (Zofran Inj) 4 mg Q6H PRN IVP 11/05/16 16:15 01/06/17 19:42 (Heparin Inj) 5,000 units Q12H SQ 11/05/16 17:00 Future Hold 12/08/16 18:16 (Narcan Inj) 0.4 mg UNSCH PRN IV 11/05/16 16:15 (Dee-Colace) 1 tab BID PO 11/05/16 21:00 01/12/17 19:57 (Milk Of Magnesia Liq) 30 ml Q12H PRN PO 11/05/16 16:15 (Senokot) 17.2 mg Q12H PRN PO 11/05/16 16:15 (Dulcolax Supp) 10 mg DAILY PRN RECTAL 11/05/16 16:15 (Lactulose Liq) 30 ml DAILY PRN PO 11/05/16 16:15 (Pill Splitter) 1 ea UNSCH PRN OTHER 11/13/16 14:30 Sodium Chloride 1,000 ml @ 0 mls/hr Q0M PRN IV 11/13/16 17:02 01/03/17 11:10 (Heparin Inj) 8,000 units UNSCH PRN IVF 11/13/16 17:15 12/31/16 09:59 Sodium Chloride 1,000 ml @ 200 mls/hr Q5H PRN IV 11/13/16 17:02 Sodium Chloride 1,000 ml @ 0 mls/hr Q0M PRN IV 11/13/16 17:02 (Mannitol Inj) 12.5 gm UNSCH PRN IV 11/13/16 17:15 (Albumin 25% Inj) 25 gm UNSCH PRN IV 11/13/16 17:15 12/31/16 09:58 (NS Flush) 5 ml UNSCH PRN IV FLUSH 11/13/16 17:15 12/17/16 10:57 (Heparin Inj) UNSCH PRN .XX 11/13/16 17:15 01/14/17 17:48 (Gentamicin (Dialysis) Inj) 20 mg UNSCH PRN IV 11/13/16 17:15 01/14/17 17:48 (Zofran Inj) 4 mg UNSCH PRN IV 11/13/16 17:15 12/09/16 20:25 (Tylenol) 650 mg UNSCH PRN PO 11/13/16 17:15 01/03/17 21:57 (Benadryl) 25 mg UNSCH PRN PO 11/13/16 17:15 01/13/17 03:43 (Nitrostat Sl) 0.4 mg UNSCH PRN SL 11/13/16 17:15 (Catapres) 0.1 mg UNSCH PRN PO 11/13/16 17:15 01/14/17 12:46 (Gelfoam 12 Mm/7 Mm Top) 1 foam UNSCH PRN TOP 11/13/16 17:15 (Lopressor) 50 mg Q12HR PO 11/16/16 21:00 Future Hold 12/02/16 08:53 (Norvasc) 5 mg DAILY PO 11/19/16 12:00 Future Hold 12/02/16 08:53 (Biaxin) 500 mg Q12HR PO 11/21/16 21:00 01/15/17 09:44 (NS Flush) UNSCH PRN IVF 11/29/16 18:15 (Heparin Inj) UNSCH PRN IV FLUSH 11/29/16 18:15 12/06/16 10:15 (Lactinex) 1 tab Q12HR PO 12/02/16 10:00 01/13/17 21:53 (Myambutol) 800 mg DAILY PO 12/04/16 09:00 01/15/17 09:44 (Epogen Inj) 10,000 units UNSCH PRN IV 12/06/16 09:30 01/14/17 17:48 (Rifampin) 300 mg Q12HR PO 12/09/16 21:00 01/15/17 09:44 (NS Flush) 2 ml UNSCH PRN IV FLUSH 12/14/16 10:45 (NS Flush) 2 ml BID IV FLUSH 12/14/16 21:00 01/15/17 09:44 (Ballinger 5-325 Mg) 1 tab Q4H PRN PO 12/14/16 10:45 (Ballinger 5-325 Mg) 2 tab Q4H PRN PO 12/14/16 10:45 Potassium Chloride/Sodium Chloride 1,000 ml @ 42 mls/hr [id number] IV 01/09/17 15:00 01/14/17 06:17 Lines permacath Past Medical History HIV, for 20+years, noncompliant with medications for the past 2 months Kidney stones Allergies: Coded Allergies: No Known Allergies (Unverified , 11/05/16) Objective . Vital Signs Date Time Temp Pulse Resp B/P (MAP) Pulse Ox O2 Delivery O2 Flow Rate FiO2 01/15/17 09:52 84 01/15/17 09:52 Room Air 01/15/17 08:00 98.8 88 18 117/74 (88) 99 01/15/17 07:17 100.2 01/15/17 04:00 102.0 107 18 133/80 (97) 100 01/15/17 04:00 Room Air 01/15/17 00:00 Room Air 01/15/17 00:00 98.4 86 18 105/63 (77) 100 01/14/17 22:55 99.1 01/14/17 21:08 102.8 01/14/17 21:08 103.3 130 19 120/66 (84) 98 01/14/17 16:00 98.9 87 18 127/82 (97) 100 01/14/17 12:00 101.9 99 18 172/100 (124) 100 . Laboratory Tests Test 01/14/17 08:00 White Blood Count 11.6 TH/MM3 Red Blood Count 3.14 MIL/MM3 Hemoglobin 8.5 GM/DL Hematocrit 26.8 % Mean Corpuscular Volume 85.2 FL Mean Corpuscular Hemoglobin 27.1 PG Mean Corpuscular Hemoglobin Concent 31.8 % Red Cell Distribution Width 19.2 % Platelet Count 90 TH/MM3 Mean Platelet Volume 9.4 FL Neutrophils (%) (Auto) 85.3 % Lymphocytes (%) (Auto) 2.5 % Monocytes (%) (Auto) 10.9 % Eosinophils (%) (Auto) 0.5 % Basophils (%) (Auto) 0.8 % Neutrophils # (Auto) 9.9 TH/MM3 Lymphocytes # (Auto) 0.3 TH/MM3 Monocytes # (Auto) 1.3 TH/MM3 Eosinophils # (Auto) 0.1 TH/MM3 Basophils # (Auto) 0.1 TH/MM3 CBC Comment AUTO DIFF Differential Total Cells Counted 100 Neutrophils % (Manual) 67 % Band Neutrophils % 10 % Lymphocytes % 5 % Monocytes % 11 % Eosinophils % 2 % Basophils % 1 % Neutrophils # (Manual) 9.4 TH/MM3 Metamyelocytes 4 % Differential Comment FINAL DIFF MANUAL Toxic Granulation 1+ Platelet Estimate LOW Platelet Morphology Comment ENLARGED Microbiology Date/Time Source Procedure Growth Status 01/14/17 19:25 Blood Peripheral Aerobic Blood Culture - Preliminary NO GROWTH IN 1 DAY Resulted 01/14/17 19:25 Blood Peripheral Anaerobic Blood Culture - Preliminary NO GROWTH IN 1 DAY Resulted 01/14/17 19:20 Blood Peripheral Aerobic Blood Culture - Preliminary NO GROWTH IN 1 DAY Resulted 01/14/17 19:20 Blood Peripheral Anaerobic Blood Culture - Preliminary NO GROWTH IN 1 DAY Resulted 01/15/17 06:30 Urine Clean Catch Urine Culture Pending Received Imaging Last Impressions Renal Biopsy CT 12/01/16 0600 Signed Impressions: Service Date/Time: November 14:17 - CONCLUSION: Uncomplicated CT guided biopsy. Alexis Adhikari MD Central Venous Line 11/29/16 0000 Signed Impressions: Service Date/Time: Tuesday, November 29, 2016 00:00 - CONCLUSION: Uncomplicated catheter removal. Solitario Diaz MD Catheter Placement X-Ray 11/29/16 0000 Signed Impressions: Service Date/Time: Tuesday, November 29, 2016 13:58 - CONCLUSION: Uncomplicated PermaCath placement as above. Solitario Diaz MD Tumor Localization 11/14/16 0000 Signed Impressions: Service Date/Time: Monday, November 14, 2016 11:38 - CONCLUSION: Negative scan Solitario Diaz MD Chest X-Ray 8/20/17 0000 Signed Impressions: Service Date/Time: Sunday, November 13, 2016 16:02 - CONCLUSION: No acute cardiopulmonary disease. Quincy Medellin MD Renal Ultrasound 11/05/16 Signed Impressions: Service Date/Time: Saturday, November 05, 2016 19:17 - CONCLUSION: Diffusely echogenic kidneys indicating medical renal disease. Dorian Murry MD Abdomen/Pelvis CT 11/05/16 Signed Impressions: Service Date/Time: Saturday, November 05, 2016 17:19 - CONCLUSION: 1. 4 mm calculus in the right renal pelvis/ureteropelvic junction with mild adjacent perinephric/periureteral stranding. No evidence of hydronephrosis. 2. 1 cm round hypodensity in the anterior right mid kidney statistically most likely to represent a cyst. 3. 3.7 cm hypodensity in the right lobe of the liver air the dome of the diaphragm. This finding is nonspecific on noncontrast CT. The most likely etiologies include hemangioma and cyst. It could be further evaluated with ultrasound nonemergent followup MRI of the abdomen. 4. Mild dilated proximal right common iliac artery. Dorian Murry MD Physical Exam GENERAL: awake, following commands, not in respiratory distress. SKIN: Warm and dry. Dry skin EYES: [place] conjunctiva. No petechia or hemorrhage. No scleral icterus. No injection or drainage. EARS, NOSE AND THROAT: Nose without bleeding or purulent nasal discharge. Mucous membranes pink and moist. White coating on tongue NECK: Trachea midline. Supple and not tender, no meningeal signs CARDIOVASCULAR: Regular rate and rhythm. No murmurs, rubs or gallops heard RESPIRATORY: Clear to auscultation. Breath sounds equal bilaterally. No rales , wheezing or rhonchi ABDOMEN: Soft, not tender, not distended, dry dressing over cath. No guarding. No rebound. No organomegaly. Has stable oblong brown non tender nodule on R lateral groin (chronic been there for years, not getting bigger) EXTREMITIES: No clubbing, cyanosis, or edema. No joint effusion, has good ROM. No calf tenderness. Well perfused and warm. BUTTOCK: Ulcers healed NEUROLOGICAL: Awake alert Non-focal except that he is not speaking PSYCHIATRIC: Normal affect, calm and cooperative. 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
--- NOTE | 2017-01-15 11:52 | HHI.NPPN ---
Subjective History of Present Illness 50-year-old male with past medical history of HIV disease for more than 20 years and history of renal stone who came to the hospital with complaint of back pain. The patient has back pain going on for the last 2 months off and on and he came to the emergency department yesterday with worsening pain. Additional Remarks Patient is alert, no SOB, no abd. pain, started spiking fever again, had fever yesterday during HD. Review of Systems General Constitutional: Fatigue Cardiovascular Cardiac: MIRZA Objective Data Data Vital Signs Date Time Temp Pulse Resp B/P (MAP) Pulse Ox O2 Delivery O2 Flow Rate FiO2 01/15/17 09:52 84 01/15/17 09:52 Room Air 01/15/17 08:00 98.8 88 18 117/74 (88) 99 01/15/17 07:17 100.2 01/15/17 04:00 102.0 107 18 133/80 (97) 100 01/15/17 04:00 Room Air 01/15/17 00:00 Room Air 01/15/17 00:00 98.4 86 18 105/63 (77) 100 01/14/17 22:55 99.1 01/14/17 21:08 102.8 01/14/17 21:08 103.3 130 19 120/66 (84) 98 01/14/17 16:00 98.9 87 18 127/82 (97) 100 01/14/17 12:00 101.9 99 18 172/100 (124) 100 -: 01/14/17 0800 01/11/17 0559 Microbiology 01/14/17 Aerobic Blood Culture - Preliminary, Resulted NO GROWTH IN 1 DAY 01/14/17 Anaerobic Blood Culture - Preliminary, Resulted NO GROWTH IN 1 DAY 01/14/17 Aerobic Blood Culture - Preliminary, Resulted NO GROWTH IN 1 DAY 01/14/17 Anaerobic Blood Culture - Preliminary, Resulted NO GROWTH IN 1 DAY 01/15/17 Urine Culture, Received Pending Physical Exam General Appearance: No Acute Distress, Comfortable Eyes Eye Exam: Pupils Equal Throat Throat Exam: Oral Mucosa [place] & Moist Pulmonary Resp Exam: Breath Sounds Equal, No Distress, Rhonchi, Decreased Bases Cardiology CV Exam: Regular, Normal Sinus Rhythm Gastrointestinal/Abdomen GI Exam: Soft, Non-Tender, Bowel Sounds Present Extremeties Extremities Exam: No Edema Neurologic Neuro Exam: Alert, Awake, Oriented Psychiatric Psych Exam: Appropriate Responses Assessment/Plan Assessment Summary: MIKE/Acute Renal Failure Problem List: (1) Renal failure ICD Codes: N19 - Unspecified kidney failure Status: Acute (2) Sepsis ICD Codes: A41.9 - Sepsis, unspecified organism Status: Acute (3) Open wound of scrotum ICD Codes: S31.30XA - Unspecified open wound of scrotum and testes, initial encounter Status: Acute Plan c/o blurry vision left eye Remain non oliguric. SPEP was negative. Complements normal, other serology also negative. BP is better, on Metoprolol to 50 mg BID. If renal function will not improve, will consider Renal Biopsy once infection is controlled. Fever pattern is better, ID is following. Now on Bactrim, Acyclovir, Clarithromycin and Ethambutol. No improvement in renal function. Possibly has End stage renal disease. Got PermCath. 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 No need to repeat the renal Biopsy as clinically he is showing no improvement, and the with advance HIV , the treatment options are limited, cannot be given immunosuppressive drugs. He understand increase risk of infection due to advance HIV. Has PD catheter done. Now on Valganciclovir, ID following. Gallium scan is negative. HD to continue TTS. On Epogen , follow Hgb. Transfuse as needed. WBC better with Neupogen. MRI results noted. Spiking fever again, ID is following. Blood cultures done. HD to continue as schedule. Problem Qualifiers (1) Renal failure: (2) Sepsis: Kwadwo Shah MD Jan 15, 2017 11:52
[2017-01-15 12:42] LABS: HEMATOCRIT 26.5 % (39.0-51.0); MEAN CELL VOLUME 84.8 FL (80.0-100.0); MEAN CORPUSCULAR HEMOGLOBIN 27.5 PG (27.0-34.0); MEAN CORPUSCULAR HGB CONC 32.4 % (32.0-36.0); PLATELET COUNT 96 TH/MM3 (150-450); RED BLOOD COUNT 3.12 MIL/MM3 (4.50-5.90); RED CELL DISTRIBUTION WIDTH 19.4 % (11.6-17.2); WHITE BLOOD COUNT 9.2 TH/MM3 (4.0-11.0)
[2017-01-15 12:44] LABS: BICARBONATE 31.9 MEQ/L (21.0-32.0); POTASSIUM 3.9 MEQ/L (3.5-5.1)
[2017-01-15 12:47] LABS: HEMO FLAGS AUTO DIFF
[2017-01-15] MEDS: NS + KCL 20 MEQ INJ 1,000 ML IV SCH (13:02)
[2017-01-15 13:25] LABS: BANDS 23 % (0-6); METAMYELOCYTES 4 % (0-1); MYELOCYTES 2 % (0-0); NEUTROPHIL # MANUAL DIFF 7.9 TH/MM3 (1.8-7.7); PLATELET ESTIMATE SMEAR LOW (NORMAL); PLATELET MORPHOLOGY NORMAL (NORMAL); POLYS (SEG NEUTROPHILS) 57 % (16-70); SCAN/DIFF FINAL DIFF MANUAL; WBC DIFF SAMPLE 100
--- NOTE | 2017-01-15 16:13 | HHI.PR ---
Subjective Remarks patient is not communicating much today, he is covered totally with a blanket When I uncovered him he was shivering, he denied pain but he looks debilitated Objective Vitals Vital Signs Date Time Temp Pulse Resp B/P (MAP) Pulse Ox O2 Delivery O2 Flow Rate FiO2 01/15/17 12:00 98.0 87 18 119/77 (91) 100 01/15/17 09:52 84 01/15/17 09:52 Room Air 01/15/17 08:00 98.8 88 18 117/74 (88) 99 01/15/17 07:17 100.2 01/15/17 04:00 102.0 107 18 133/80 (97) 100 01/15/17 04:00 Room Air 01/15/17 00:00 Room Air 01/15/17 00:00 98.4 86 18 105/63 (77) 100 01/14/17 22:55 99.1 01/14/17 21:08 102.8 01/14/17 21:08 103.3 130 19 120/66 (84) 98 I/O 01/14/17 01/14/17 01/14/17 01/15/17 01/15/17 01/15/17 07:00 15:00 23:00 07:00 15:00 23:00 Intake Total 480 ml 960 ml 240 ml Output Total 1700 ml Balance 480 ml -740 ml 240 ml Intake Oral 480 ml 960 ml 240 ml Hemodialysis 1700 ml # Voids 0 0 0 # Bowel Movements 0 0 0 Result Diagram: 01/15/17 1211 01/15/17 1211 Objective Remarks - GENERAL: This is a well-nourished, well-developed patient, in no apparent distress. SKIN: No rashes, warm and dry HEAD: Atraumatic. Normocephalic. EYES: Pupils equal round and reactive. Extraocular motions intact. No scleral icterus. ENT: Nose without bleeding, or drainage, Airway patent. NECK: Trachea midline. Supple CARDIOVASCULAR: Regular rate and rhythm without murmurs, gallops, or rubs. RESPIRATORY: Fair air entry bilaterally. No wheezes, rales, or rhonchi. GASTROINTESTINAL: Abdomen soft, non-tender, nondistended. Positive bowel sounds MUSCULOSKELETAL: Extremities without clubbing, cyanosis, or edema. Pedal pulses appreciated NEUROLOGICAL: Awake and alert not very communicative, moves all extremity. Procedures 11/14/16 hemodialysis catheter placement, right internal jugular 12/14 PD cath placement A/P Problem List: (1) Renal failure ICD Code: N19 - Unspecified kidney failure Status: Acute (2) Sepsis ICD Code: A41.9 - Sepsis, unspecified organism Status: Acute (3) UTI (urinary tract infection) ICD Code: N39.0 - Urinary tract infection, site not specified (4) Chronic kidney disease, stage V ICD Code: N18.5 - Chronic kidney disease, stage 5 (5) HIV (human immunodeficiency virus infection) ICD Code: B20 - Human immunodeficiency virus [HIV] disease (6) Anemia ICD Code: D64.9 - Anemia, unspecified (7) Hypertension ICD Code: I10 - Essential (primary) hypertension (8) Medical non-compliance ICD Code: Z91.19 - Patient's noncompliance with other medical treatment and regimen Assessment and Plan 01/11: Slight change in mental status, discussed with ID who more appreciate that changes since this is my first time seeing the patient. We will continue continue current management and monitor neurochecks 01/12: MRI of the brain with unremarkable, response to simple question is better today, continue current management and follow up with ID recommendation 01/13: Appreciate psychiatry consultation, no need for inpatient psychiatry or medication, continue following with ID nephrology and hematology 01/14: Patient had a dialysis now, he had a fever of 101.4, WBC today 11.6 repeat in a.m., he is being followed by ID continue current antibiotic no change , nephrology following for dialysis, 01/15: Patient still spiking fever 102 this morning he is shivering, WBC is 9 today, ID recommended continuing current management A/P: 1. Severe sepsis secondary to UTI, pneumonia: Status post treatment with Zosyn. Patient is immunocompromised, noncompliant with HAART for 2 months prior to admission. HSV positive. 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 Blood mycobacterial culture growing acid fast organism. Further ID pending. Still having fevers. 2. Acute renal failure superimposed on chronic kidney disease stage V: Appreciate nephrology recommendations. SPEP, serology negative. Creatinine not improving. Hemodialysis per nephrology.renal bx :FSGN 3. HIV/AIDS: CD4 count less than 20. Patient admitted to being noncompliant with HAART meds. He has been counseled. 4. Oral thrush: Continue nystatin. 5. Anemia: Hemoglobin trending down again. Monitor H/H. Received transfusion 1 unit PRBCs on 12/08/16. He has received 7 units total during this hospitalization. 6. Hypertension, tachycardia: Continue metoprolol. 7. Buttock, perirectal wounds: HSV positive. Continue Valtrex 14 days then chronic suppression with acyclovir. 8. Neutropenia: Management per hematology. Given Neupogen. 9. DVT prophylaxis: Heparin. 10. 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 Problem Qualifiers (1) Renal failure: (2) Sepsis: (3) Anemia: Maggy Cordero MD Jan 15, 2017 16:13
[2017-01-16] VITALS (12 sets, daily range): BP systolic 109–146; BP diastolic 70–96; PULSE 71–109; RESP 16–20; TEMP 96.5–102.3; O2SAT 97–100
[2017-01-16 07:25] LABS: HEMATOCRIT 27.7 % (39.0-51.0); MEAN CELL VOLUME 85.2 FL (80.0-100.0); MEAN CORPUSCULAR HEMOGLOBIN 26.9 PG (27.0-34.0); MEAN CORPUSCULAR HGB CONC 31.6 % (32.0-36.0); PLATELET COUNT 102 TH/MM3 (150-450); RED BLOOD COUNT 3.25 MIL/MM3 (4.50-5.90); RED CELL DISTRIBUTION WIDTH 19.3 % (11.6-17.2); WHITE BLOOD COUNT 11.4 TH/MM3 (4.0-11.0)
[2017-01-16 07:26] LABS: HEMO FLAGS AUTO DIFF
[2017-01-16] MEDS: RIFAMPIN 150 MG CAP PO SCH ×2 (08:55→21:00)
[2017-01-16] MEDS: CLARITHROMYCIN 500 MG TAB PO SCH ×2 (08:55→21:00)
[2017-01-16] MEDS: ETHAMBUTOL HCL 400 MG TAB PO SCH (08:55)
[2017-01-16] MEDS: ACETAMINOPHEN 325 MG TAB PO PRN (08:55)
[2017-01-16] MEDS: SODIUM CHLORIDE 0.9% FLUSH 10 ML FLUSH IV FLUSH SCH ×2 (08:55→21:02)
[2017-01-16] MEDS: DOCUSATE SODIUM 50 MG/SENNA 8.6 MG TAB PO SCH ×2 (08:56→20:59)
[2017-01-16] MEDS: LACTOBACILLUS ACIDOPHILUS TAB PO SCH ×2 (08:56→21:00)
[2017-01-16] MEDS: NS + KCL 20 MEQ INJ 1,000 ML IV SCH (08:58)
[2017-01-16 10:27] LABS: BANDS 10 % (0-6); METAMYELOCYTES 3 % (0-1); MYELOCYTES 3 % (0-0); NEUTROPHIL # MANUAL DIFF 8.3 TH/MM3 (1.8-7.7); POLYS (SEG NEUTROPHILS) 56 % (16-70); PROMYELOCYTES 1 % (0-0); WBC DIFF SAMPLE 100
[2017-01-16 10:30] LABS: OVALOCYTES 1+ (NORMAL); PLATELET ESTIMATE SMEAR LOW (NORMAL); PLATELET MORPHOLOGY NORMAL (NORMAL); SCAN/DIFF FINAL DIFF MANUAL
--- NOTE | 2017-01-16 10:30 | HHI.IDPN ---
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, on HD; S/P PD cath Notes reviewed Still with fevers He has no new complaint Not coughing or SOB No diarrhea Voiding ok reviewed PT notes - he has not really worked with PT Patient states he walked some Bactrim stopped, last dose given 01/13 Repeat BC have been negative he has had extensive FUO work-up and have been negative Antibiotics I attest that I obtained, updated or reviewed the home and current medications. Rifampin Biaxin Ethambutol Diflucan Current Medications Medications (Trade) Dose Ordered Sig/Nyla Route Start Time Stop Time Status Last Admin (NS Flush) 2 ml UNSCH PRN IV FLUSH 11/05/16 16:15 (Tylenol) 650 mg Q4H PRN PO 11/05/16 16:15 01/16/17 08:55 (Zofran Inj) 4 mg Q6H PRN IVP 11/05/16 16:15 01/06/17 19:42 (Heparin Inj) 5,000 units Q12H SQ 11/05/16 17:00 Future Hold 12/08/16 18:16 (Narcan Inj) 0.4 mg UNSCH PRN IV 11/05/16 16:15 (Dee-Colace) 1 tab BID PO 11/05/16 21:00 01/12/17 19:57 (Milk Of Magnesia Liq) 30 ml Q12H PRN PO 11/05/16 16:15 (Senokot) 17.2 mg Q12H PRN PO 11/05/16 16:15 (Dulcolax Supp) 10 mg DAILY PRN RECTAL 11/05/16 16:15 (Lactulose Liq) 30 ml DAILY PRN PO 11/05/16 16:15 (Pill Splitter) 1 ea UNSCH PRN OTHER 11/13/16 14:30 Sodium Chloride 1,000 ml @ 0 mls/hr Q0M PRN IV 11/13/16 17:02 01/03/17 11:10 (Heparin Inj) 8,000 units UNSCH PRN IVF 11/13/16 17:15 12/31/16 09:59 Sodium Chloride 1,000 ml @ 200 mls/hr Q5H PRN IV 11/13/16 17:02 Sodium Chloride 1,000 ml @ 0 mls/hr Q0M PRN IV 11/13/16 17:02 (Mannitol Inj) 12.5 gm UNSCH PRN IV 11/13/16 17:15 (Albumin 25% Inj) 25 gm UNSCH PRN IV 11/13/16 17:15 12/31/16 09:58 (NS Flush) 5 ml UNSCH PRN IV FLUSH 11/13/16 17:15 12/17/16 10:57 (Heparin Inj) UNSCH PRN .XX 11/13/16 17:15 01/14/17 17:48 (Gentamicin (Dialysis) Inj) 20 mg UNSCH PRN IV 11/13/16 17:15 01/14/17 17:48 (Zofran Inj) 4 mg UNSCH PRN IV 11/13/16 17:15 12/09/16 20:25 (Tylenol) 650 mg UNSCH PRN PO 11/13/16 17:15 01/03/17 21:57 (Benadryl) 25 mg UNSCH PRN PO 11/13/16 17:15 01/13/17 03:43 (Nitrostat Sl) 0.4 mg UNSCH PRN SL 11/13/16 17:15 (Catapres) 0.1 mg UNSCH PRN PO 11/13/16 17:15 01/14/17 12:46 (Gelfoam 12 Mm/7 Mm Top) 1 foam UNSCH PRN TOP 11/13/16 17:15 (Lopressor) 50 mg Q12HR PO 11/16/16 21:00 Future Hold 12/02/16 08:53 (Norvasc) 5 mg DAILY PO 11/19/16 12:00 Future Hold 12/02/16 08:53 (Biaxin) 500 mg Q12HR PO 11/21/16 21:00 01/16/17 08:55 (NS Flush) UNSCH PRN IVF 11/29/16 18:15 (Heparin Inj) UNSCH PRN IV FLUSH 11/29/16 18:15 12/06/16 10:15 (Lactinex) 1 tab Q12HR PO 12/02/16 10:00 01/16/17 08:56 (Myambutol) 800 mg DAILY PO 12/04/16 09:00 01/16/17 08:55 (Epogen Inj) 10,000 units UNSCH PRN IV 12/06/16 09:30 01/14/17 17:48 (Rifampin) 300 mg Q12HR PO 12/09/16 21:00 01/16/17 08:55 (NS Flush) 2 ml UNSCH PRN IV FLUSH 12/14/16 10:45 (NS Flush) 2 ml BID IV FLUSH 12/14/16 21:00 01/16/17 08:55 (Victor 5-325 Mg) 1 tab Q4H PRN PO 12/14/16 10:45 (Victor 5-325 Mg) 2 tab Q4H PRN PO 12/14/16 10:45 Potassium Chloride/Sodium Chloride 1,000 ml @ 42 mls/hr [id number] IV 01/09/17 15:00 01/16/17 08:58 (Deltasone) 40 mg DAILY PO 01/16/17 10:00 Lines permacath Past Medical History HIV, for 20+years, noncompliant with medications for the past 2 months Kidney stones Allergies: Coded Allergies: No Known Allergies (Unverified , 11/05/16) Objective . Vital Signs Date Time Temp Pulse Resp B/P (MAP) Pulse Ox O2 Delivery O2 Flow Rate FiO2 01/16/17 08:16 102.3 108 18 132/84 (100) 100 01/16/17 04:00 99.8 01/16/17 04:00 99.8 89 18 140/91 (107) 97 01/16/17 04:00 99.8 01/16/17 02:01 99.3 01/16/17 00:49 100.7 01/16/17 00:48 100.7 01/16/17 00:30 101.2 01/16/17 00:00 102.3 109 18 132/80 (97) 99 01/15/17 21:37 102.7 01/15/17 20:00 99.1 90 18 108/68 (81) 100 01/15/17 20:00 Room Air 01/15/17 19:55 85 01/15/17 17:05 100.7 101 18 122/81 (95) 98 01/15/17 16:21 101.2 10/22/17 16:00 103.6 127 18 127/71 (89) 98 01/15/17 12:00 98.0 87 18 119/77 (91) 100 . Laboratory Tests Test 01/15/17 12:11 01/16/17 05:45 White Blood Count 9.2 TH/MM3 11.4 TH/MM3 Red Blood Count 3.12 MIL/MM3 3.25 MIL/MM3 Hemoglobin 8.6 GM/DL 8.7 GM/DL Hematocrit 26.5 % 27.7 % Mean Corpuscular Volume 84.8 FL 85.2 FL Mean Corpuscular Hemoglobin 27.5 PG 26.9 PG Mean Corpuscular Hemoglobin Concent 32.4 % 31.6 % Red Cell Distribution Width 19.4 % 19.3 % Platelet Count 96 TH/MM3 102 TH/MM3 Mean Platelet Volume 9.5 FL 9.2 FL CBC Comment AUTO DIFF AUTO DIFF Differential Total Cells Counted 100 Neutrophils % (Manual) 57 % Band Neutrophils % 23 % Lymphocytes % 2 % Monocytes % 12 % Neutrophils # (Manual) 7.9 TH/MM3 Metamyelocytes 4 % Myelocytes 2 % Differential Comment FINAL DIFF MANUAL Platelet Estimate LOW Platelet Morphology Comment NORMAL Laboratory Tests Test 01/15/17 12:11 Blood Urea Nitrogen 24 MG/DL Creatinine 5.94 MG/DL Random Glucose 72 MG/DL Calcium Level 8.6 MG/DL Sodium Level 136 MEQ/L Potassium Level 3.9 MEQ/L Chloride Level 98 MEQ/L Carbon Dioxide Level 31.9 MEQ/L Anion Gap 6 MEQ/L Estimat Glomerular Filtration Rate 12 ML/MIN Microbiology Date/Time Source Procedure Growth Status 01/14/17 19:25 Blood Peripheral Aerobic Blood Culture - Preliminary NO GROWTH IN 1 DAY Resulted 01/14/17 19:25 Blood Peripheral Anaerobic Blood Culture - Preliminary NO GROWTH IN 1 DAY Resulted 01/14/17 19:20 Blood Peripheral Aerobic Blood Culture - Preliminary NO GROWTH IN 1 DAY Resulted 01/14/17 19:20 Blood Peripheral Anaerobic Blood Culture - Preliminary NO GROWTH IN 1 DAY Resulted 01/15/17 06:30 Urine Clean Catch Urine Culture Pending Received Imaging Last Impressions Renal Biopsy CT 12/01/16 0600 Signed Impressions: Service Date/Time: November 14:17 - CONCLUSION: Uncomplicated CT guided biopsy. Alexis Adhikari MD Central Venous Line 11/29/16 Signed Impressions: Service Date/Time: Tuesday, November 29, 2016 00:00 - CONCLUSION: Uncomplicated catheter removal. Solitario Diaz MD Catheter Placement X-Ray 11/29/16 Signed Impressions: Service Date/Time: Tuesday, November 29, 2016 13:58 - CONCLUSION: Uncomplicated PermaCath placement as above. Solitario Diaz MD Tumor Localization 11/14/16 Signed Impressions: Service Date/Time: Monday, November 14, 2016 11:38 - CONCLUSION: Negative scan Solitario Diaz MD Chest X-Ray 11/13/16 Signed Impressions: Service Date/Time: Sunday, November 13, 2016 16:02 - CONCLUSION: No acute cardiopulmonary disease. Quincy Medellin MD Renal Ultrasound 11/05/16 Signed Impressions: Service Date/Time: Saturday, November 05, 2016 19:17 - CONCLUSION: Diffusely echogenic kidneys indicating medical renal disease. Dorian Murry MD Abdomen/Pelvis CT 11/05/16 Signed Impressions: Service Date/Time: Saturday, November 05, 2016 17:19 - CONCLUSION: 1. 4 mm calculus in the right renal pelvis/ureteropelvic junction with mild adjacent perinephric/periureteral stranding. No evidence of hydronephrosis. 2. 1 cm round hypodensity in the anterior right mid kidney statistically most likely to represent a cyst. 3. 3.7 cm hypodensity in the right lobe of the liver air the dome of the diaphragm. This finding is nonspecific on noncontrast CT. The most likely etiologies include hemangioma and cyst. It could be further evaluated with ultrasound nonemergent followup MRI of the abdomen. 4. Mild dilated proximal right common iliac artery. Dorian Murry MD Physical Exam GENERAL: awake, following commands, not in respiratory distress. SKIN: Warm and dry. Dry skin EYES: [place] conjunctiva. No petechia or hemorrhage. No scleral icterus. No injection or drainage. EARS, NOSE AND THROAT: Nose without bleeding or purulent nasal discharge. Mucous membranes pink and moist. White coating on tongue NECK: Trachea midline. Supple and not tender, no meningeal signs CARDIOVASCULAR: Regular rate and rhythm. No murmurs, rubs or gallops heard RESPIRATORY: Clear to auscultation. Breath sounds equal bilaterally. No rales , wheezing or rhonchi ABDOMEN: Soft, not tender, not distended, dry dressing over cath. No guarding. No rebound. No organomegaly. Has stable oblong brown non tender nodule on R lateral groin (chronic been there for years, not getting bigger) EXTREMITIES: No clubbing, cyanosis, or edema. No joint effusion, has good ROM. No calf tenderness. Well perfused and warm. BUTTOCK: Ulcers healed NEUROLOGICAL: Awake alert Non-focal except that he is not speaking PSYCHIATRIC: Normal affect, calm and cooperative. 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
[2017-01-16] MEDS: FLUCONAZOLE 100 MG TAB PO SCH (11:01)
[2017-01-16] MEDS: predniSONE 20 MG TAB PO SCH (11:01)
--- NOTE | 2017-01-16 14:57 | HHI.PR ---
Subjective Remarks Patient continue to have spiking fever 101 and goes up to 102.3, today he denied feeling feverish or chills No nausea or vomiting ID still following for management Objective Vitals Vital Signs Date Time Temp Pulse Resp B/P (MAP) Pulse Ox O2 Delivery O2 Flow Rate FiO2 01/16/17 12:02 99.1 87 18 109/70 (83) 98 01/16/17 08:16 102.3 108 18 132/84 (100) 100 01/16/17 08:06 97 01/16/17 08:00 100 Room Air 01/16/17 04:00 99.8 01/16/17 04:00 99.8 89 18 140/91 (107) 97 01/16/17 04:00 99.8 01/16/17 02:01 99.3 01/16/17 00:49 100.7 01/16/17 00:48 100.7 01/16/17 00:30 101.2 01/16/17 00:00 102.3 109 18 132/80 (97) 99 01/15/17 21:37 102.7 01/15/17 20:00 99.1 90 18 108/68 (81) 100 01/15/17 20:00 Room Air 01/15/17 19:55 85 01/15/17 17:05 100.7 101 18 122/81 (95) 98 01/15/17 16:21 101.2 01/15/17 16:00 103.6 127 18 127/71 (89) 98 I/O 01/15/17 01/15/17 01/15/17 01/16/17 01/16/17 01/16/17 07:00 15:00 23:00 07:00 15:00 23:00 Intake Total 240 ml 500 ml Output Total 200 ml Balance 240 ml 300 ml Intake Oral 240 ml 500 ml Output Urine Total 200 ml # Voids 0 # Bowel Movements 0 0 Result Diagram: 01/16/17 0545 01/15/17 1211 Objective Remarks - GENERAL: This is a well-nourished, well-developed patient, in no apparent distress. SKIN: No rashes, warm and dry HEAD: Atraumatic. Normocephalic. EYES: Pupils equal round and reactive. Extraocular motions intact. No scleral icterus. ENT: Nose without bleeding, or drainage, Airway patent. NECK: Trachea midline. Supple CARDIOVASCULAR: Regular rate and rhythm without murmurs, gallops, or rubs. RESPIRATORY: Fair air entry bilaterally. No wheezes, rales, or rhonchi. GASTROINTESTINAL: Abdomen soft, non-tender, nondistended. Positive bowel sounds MUSCULOSKELETAL: Extremities without clubbing, cyanosis, or edema. Pedal pulses appreciated NEUROLOGICAL: Awake and alert not very communicative, moves all extremity. Procedures 11/14/16 hemodialysis catheter placement, right internal jugular 12/14 PD cath placement A/P Problem List: (1) Renal failure ICD Code: N19 - Unspecified kidney failure Status: Acute (2) Sepsis ICD Code: A41.9 - Sepsis, unspecified organism Status: Acute (3) UTI (urinary tract infection) ICD Code: N39.0 - Urinary tract infection, site not specified (4) Chronic kidney disease, stage V ICD Code: N18.5 - Chronic kidney disease, stage 5 (5) HIV (human immunodeficiency virus infection) ICD Code: B20 - Human immunodeficiency virus [HIV] disease (6) Anemia ICD Code: D64.9 - Anemia, unspecified (7) Hypertension ICD Code: I10 - Essential (primary) hypertension (8) Medical non-compliance ICD Code: Z91.19 - Patient's noncompliance with other medical treatment and regimen Assessment and Plan 01/11: Slight change in mental status, discussed with ID who more appreciate that changes since this is my first time seeing the patient. We will continue continue current management and monitor neurochecks 01/12: MRI of the brain with unremarkable, response to simple question is better today, continue current management and follow up with ID recommendation 01/13: Appreciate psychiatry consultation, no need for inpatient psychiatry or medication, continue following with ID nephrology and hematology 01/14: Patient had a dialysis now, he had a fever of 101.4, WBC today 11.6 repeat in a.m., he is being followed by ID continue current antibiotic no change , nephrology following for dialysis, 01/15: Patient still spiking fever 102 this morning he is shivering, WBC is 9 today, ID recommended continuing current management 01/16: Continue to spike fever 101, 102.3> ID did not recommend changing in his current regimen will will continue , immunity reconstitution status"" A/P: - Severe sepsis secondary to UTI, pneumonia: Status post treatment with Zosyn. Patient is immunocompromised, noncompliant with HAART for 2 months prior to admission. HSV positive. 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 Blood mycobacterial culture growing acid fast organism. Further ID pending. Still having fevers. - FUO: Due to restart Bactrim, drug induced, as above, ID following - Acute renal failure superimposed on chronic kidney disease stage V: Appreciate nephrology recommendations. SPEP, serology negative. Creatinine not improving. Hemodialysis per nephrology.renal bx :FSGN - HIV/AIDS: CD4 count less than 20. Patient admitted to being noncompliant with HAART meds. He has been counseled. - Oral thrush: Continue nystatin. - Anemia: Hemoglobin trending down again. Monitor H/H. Received transfusion 1 unit PRBCs on 12/08/16. He has received 7 units total during this hospitalization. - Hypertension, tachycardia: Continue metoprolol. - Buttock, perirectal wounds: HSV positive. Continue Valtrex 14 days then chronic suppression with acyclovir. - Neutropenia: Management per hematology. Given Neupogen. - DVT prophylaxis: Heparin. 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 Problem Qualifiers (1) Renal failure: (2) Sepsis: (3) Anemia: Maggy Cordero MD Jan 16, 2017 14:56
--- NOTE | 2017-01-16 15:17 | PD.CONS ---
Consult Service Palliative Care Consult Requested By Dr Cordero . Primary Care Physician Quan Valencia MD Reason for Consultation a. To assist with evaluation and management of symptoms including: malnutrition, weakness b. To assist medical decision maker(s) with: better understanding of current medical conditions; weighing benefits/burdens of medical treatment options; making medical treatment decisions. (Keily Ackerman MADAY) HPI History of Present Illness This patient presented to the ED on 11/05/16, with reports of pain in his buttock for several weeks with some fevers and chills. Denied abdominal pain. Reported taking HIV medications sometimes, but not the past 2 months. Further noted to be a poor historian. Also reporting decreased oral intake, low back pain. * ED physician notes significant wounds to buttocks and perirectal area with purulent malodorous discharge. He was febrile, tachycardic. Started on IV fluids with them. Antibiotics vancomycin, Zosyn. Creatinine elevated 7.8, BUN 64, potassium 5.1. WBC 7.4. Temporal ER 100.6, lactic acid 0.8. He was admitted for further evaluation and management of sepsis and renal insufficiency. Wound culture, blood cultures obtained. Renal ultrasound pending * CT abdomen pelvis= 4 mm calculus right pelvis mild stranding in fat adjacent to right kidney no evidence of hydronephrosis. 1.2 cm hypodensity in anterior midpole right kidney. Mildly dilated proximal right common iliac artery. Ultrasound kidneys= kidneys normal in size both are diffusely echogenic bladder within normal limits. * CXR= patchy consolidation versus atelectasis * Nephrology consulted: Probable chronic kidney disease, monitor labs, avoid nephrotoxins consider MRI or CT angiogram for lesion on right kidney once creatinine stable. * Wound care consulted: partial-thickness skin loss wounds irregular, multiple throughout scrotum, perianal right buttock. * ID consulted 11/08: Ulcerations not felt to be causing fevers,? Look herpetic, ? VZV--HSV, vzv PENDING, CD4 count pending; no further Vanco unless GPC on culture. Culture currently only indicating colonization. Continue Zosyn for gram-negative joshua UTI * 11/12 making urine . potassium 3.6. Nephrology continues to follow. No absolute indication for dialysis at this time. Consider kidney biopsy once infection controlled. Some fevers. Oral thrushon nystatin. CD4 count less than 20--patient indicates not taking HIV medications for the past 2 months. * 11/13 labs with ongoing acidemia acidotic, given these findings nephrology recommended proceed with dialysis planned for Vas-Cath and hemodialysis the next day--possible may be able to transition to peritoneal dialysis at some point patient probably with ESRD as mother on dialysis before her . 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 Poor appetite. BUN and creatinine increasing again. Hypertensive, nephrology increase metoprolol. Consider renal biopsy. Continue hemodialysis as needed. * 11/21 febrile 102.7; no signs of renal recovery, hemodialysis continues. Blood culture from 11/10 +AFB. On Biaxin for PCP prophylaxis, Levaquin, EMB, per ID, also BEGIN acyclovir prophylaxis * 11/29 Vas-Cath with poor flow will need new permacath or another Vas-Cath. PT consulted for weakness, prolonged hospitalization. 12/01 CT guided right renal biopsy. * 12/02 some loose stools, stool sent for C. difficile. Perirectal wounds improving. Continues on dialysis he will likely continue to require HD as an outpatient * 12/04 Status post renal biopsy, results pending. Patient complaining of blurry vision /sense of darkness in the left thigh blurred vision through the right not really sure of onset but thinks may have started a week prior. 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 PT following, patient participates, patient w/ somewhat unsteady gait require some assistance. * 12/09 general surgery was consulted for peritoneal dialysis catheter placement . General surgery notes discussion with the patient that your detailed dialysis catheter placement is not ideal with an active infectious process ; tentatively scheduled for catheter placement in a few days via laparoscopy/ pending infection, also discussed delaying until infection under control. Renal biopsy pathology still pending. * 12/14 underwent laparoscopic-assisted peritoneal dialysis catheter with * 12/18 continues with hemodialysis every other day. febrile 102. Poor appetite. ID continues to follow; considering gallium scan may stop antibiotics for possible drug fever if gallium scan negative. Patient currently on Biaxin, EMB, rifampin, ganciclovir * Gallium scan negative for occult infection all blood cultures remained negative; no new infections found ; still no ID on AFB in blood cultures--ID considering discontinuing rifampin * AFB in BC with MAC - sent for susceptibility testing per ID. Continues to have fevers.- ?drug: ?ganciclovir, rifampin; bactrim has been there since 11/25, stopped - gallium scan is negative- all repeat BC are negative- persistent , ?due to HIV/end-stage AIDS, disseminated MAC// continued on Biaxin, EMB, rifampin, valganciclovir, trial of prednisone, follow HIV genotype. ID recommends hematology consultation. * 01/06 hematology consulted, Dr. Parks saw patient. Patient severely neutropenic. Patient with end-stage AIDS and disseminated MAC, CMV retinitis. Severe neutropenia secondary to all tubal complications end-stage AIDS, MAC. Recommended daily Neupogen injections though would not expect rapid improvement. Anemia likely secondary to bone marrow suppression with uncontrolled aid states that many of them before meals infection. Patient with very poor overall prognosis recommends a evaluation by palliative care. * 01/09 patient refusing meds not eating. IV fluid hydration added. Continues to receive hemodialysis. Patient week. Lethargic at times. 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 * 01/13 evaluated by psychiatry no recommendations for inpatient psychiatric hospitalization or medications. Status post MRI of the brain 01/12 no acute process. Still with poor oral intake. Still with fevers. No nausea or vomiting. ID, nephrology continue to follow. * 01/16/17 Palliative care consulted to assist with clarification of goals of treatment. Patient seen in room no visitors present. He is initially making a phone call to his employer and requests I return. I did return a few minutes later. Pleasant, cooperative, frail appearing man. No apparent distress. Met with him at length at bedside. See family conference for additional detail. . Function/Cognitive Trajectory Lived at home independently prior to this admission/ able to get to work all ADLs independent. 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 (Keily Ackerman) Review of Systems Constitutional: COMPLAINS OF: Fever, Weight loss, Change in appetite, Generalized weakness, DENIES: Chills, Dizziness, Pain Eyes: COMPLAINS OF: Blurred vision (improved slightly in the past week or so), DENIES: Vision loss Ears, nose, mouth, throat: COMPLAINS OF: Oral lesions (reports previous thrush now resolved), DENIES: Throat pain, Hoarseness, Odynophagia Respiratory: DENIES: Cough, Wheezing, Sputum production, Shortness of breath Cardiovascular: DENIES: Chest pain, Palpitations, Dyspnea on Exertion, Lower Extremity Edema Gastrointestinal: DENIES: Abdominal pain, Constipation, Diarrhea, Nausea, Vomiting, Difficulty Swallowing Genitourinary: DENIES: Urinary incontinence, Urgency, Dysuria Musculoskeletal: DENIES: Joint pain, Muscle aches Integumentary: DENIES: Rash Neurologic: DENIES: Headache, Localized weakness Psychiatric: DENIES: Anxiety (Keily Ackerman) Past Family Social History Coded Allergies: No Known Allergies (Unverified , 11/05/16) Past Medical History HIV 20+ YR, not on medications for the past 2 months Kidney stones . Past Surgical History Patient denies any previous surgical history Reported Medications Kaletra (Lopinavir-Ritonavir) 100-25 Mg Tab 1 Tab PO BID Epivir (Lamivudine) 150 Mg Tab 150 Mg PO BID *Fill this 5 day prescription first and begin taking Epivir 12 hours after the first dose received in the Emergency Department as prescribed.* Ziagen (Abacavir Sulfate) 300 Mg Tab 300 Mg PO BID Hazardous agent; use appropriate precautions for handling & disposal. . Current Medications Medications (Trade) Dose Ordered Sig/Nyla Route Start Time Stop Time Status Last Admin (NS Flush) 2 ml UNSCH PRN IV FLUSH 11/05/16 16:15 (Tylenol) 650 mg Q4H PRN PO 11/05/16 16:15 01/16/17 08:55 (Zofran Inj) 4 mg Q6H PRN IVP 11/05/16 16:15 01/06/17 19:42 (Heparin Inj) 5,000 units Q12H SQ 11/05/16 17:00 Future Hold 12/08/16 18:16 (Narcan Inj) 0.4 mg UNSCH PRN IV 11/05/16 16:15 (Dee-Colace) 1 tab BID PO 11/05/16 21:00 01/12/17 19:57 (Milk Of Magnesia Liq) 30 ml Q12H PRN PO 11/05/16 16:15 (Senokot) 17.2 mg Q12H PRN PO 11/05/16 16:15 (Dulcolax Supp) 10 mg DAILY PRN RECTAL 11/05/16 16:15 (Lactulose Liq) 30 ml DAILY PRN PO 11/05/16 16:15 (Pill Splitter) 1 ea UNSCH PRN OTHER 11/13/16 14:30 Sodium Chloride 1,000 ml @ 0 mls/hr Q0M PRN IV 11/13/16 17:02 01/03/17 11:10 (Heparin Inj) 8,000 units UNSCH PRN IVF 11/13/16 17:15 12/31/16 09:59 Sodium Chloride 1,000 ml @ 200 mls/hr Q5H PRN IV 11/13/16 17:02 Sodium Chloride 1,000 ml @ 0 mls/hr Q0M PRN IV 11/13/16 17:02 (Mannitol Inj) 12.5 gm UNSCH PRN IV 11/13/16 17:15 (Albumin 25% Inj) 25 gm UNSCH PRN IV 11/13/16 17:15 12/31/16 09:58 (NS Flush) 5 ml UNSCH PRN IV FLUSH 11/13/16 17:15 12/17/16 10:57 (Heparin Inj) UNSCH PRN .XX 11/13/16 17:15 01/14/17 17:48 (Gentamicin (Dialysis) Inj) 20 mg UNSCH PRN IV 11/13/16 17:15 01/14/17 17:48 (Zofran Inj) 4 mg UNSCH PRN IV 11/13/16 17:15 12/09/16 20:25 (Tylenol) 650 mg UNSCH PRN PO 11/13/16 17:15 01/03/17 21:57 (Benadryl) 25 mg UNSCH PRN PO 11/13/16 17:15 01/13/17 03:43 (Nitrostat Sl) 0.4 mg UNSCH PRN SL 11/13/16 17:15 (Catapres) 0.1 mg UNSCH PRN PO 11/13/16 17:15 01/14/17 12:46 (Gelfoam 12 Mm/7 Mm Top) 1 foam UNSCH PRN TOP 11/13/16 17:15 (Lopressor) 50 mg Q12HR PO 11/16/16 21:00 Future Hold 12/02/16 08:53 (Norvasc) 5 mg DAILY PO 11/19/16 12:00 Future Hold 12/02/16 08:53 (Biaxin) 500 mg Q12HR PO 11/21/16 21:00 01/16/17 08:55 (NS Flush) UNSCH PRN IVF 11/29/16 18:15 (Heparin Inj) UNSCH PRN IV FLUSH 11/29/16 18:15 12/06/16 10:15 (Lactinex) 1 tab Q12HR PO 12/02/16 10:00 01/16/17 08:56 (Myambutol) 800 mg DAILY PO 12/04/16 09:00 01/16/17 08:55 (Epogen Inj) 10,000 units UNSCH PRN IV 12/06/16 09:30 01/14/17 17:48 (Rifampin) 300 mg Q12HR PO 12/09/16 21:00 01/16/17 08:55 (NS Flush) 2 ml UNSCH PRN IV FLUSH 12/14/16 10:45 (NS Flush) 2 ml BID IV FLUSH 12/14/16 21:00 01/16/17 08:55 (Buchanan 5-325 Mg) 1 tab Q4H PRN PO 12/14/16 10:45 (Buchanan 5-325 Mg) 2 tab Q4H PRN PO 12/14/16 10:45 Potassium Chloride/Sodium Chloride 1,000 ml @ 42 mls/hr [id number] IV 01/09/17 15:00 01/16/17 08:58 (Deltasone) 40 mg DAILY PO 01/16/17 10:00 01/16/17 11:01 (Diflucan) 100 mg Q24H PO 01/16/17 11:00 01/16/17 11:01 Family History Mother with end-stage kidney disease on dialysis before her , diabetes . Substance Use Tobacco: No smoking Alcohol: None Prescription med abuse: None reported Illicits: None reported . 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 Supported by partner. Not no children. Also supported by a niece and brother. Has lived in [place] for about 15 years, originally from [place]. . Spiritual/Cultural Factors No particular confucianism affiliation does not want airline counter agent support (Keily Ackerman) Living Will: Never completed Health Care Surrogate: Never completed Durable Power of Data Solutions Architect: Never completed Ethical and Legal Issues Patient currently capacitated and able to make his own decisions. Discussion of health care surrogate designation with him he is considering designating his significant other Corbin Scott however wishes to talk to his family/support before making designation. (Keily Ackerman) Physical Exam Vital Signs Date Time Temp Pulse Resp B/P (MAP) Pulse Ox O2 Delivery O2 Flow Rate FiO2 01/16/17 12:02 99.1 87 18 109/70 (83) 98 01/16/17 08:16 102.3 108 18 132/84 (100) 100 01/16/17 08:06 97 01/16/17 08:00 100 Room Air 01/16/17 04:00 99.8 01/16/17 04:00 99.8 89 18 140/91 (107) 97 01/16/17 04:00 99.8 01/16/17 02:01 99.3 01/16/17 00:49 100.7 01/16/17 00:48 100.7 01/16/17 00:30 101.2 01/16/17 00:00 102.3 109 18 132/80 (97) 99 01/15/17 21:37 102.7 01/15/17 20:00 99.1 90 18 108/68 (81) 100 01/15/17 20:00 Room Air 01/15/17 19:55 85 01/15/17 17:05 100.7 101 18 122/81 (95) 98 01/15/17 16:21 101.2 01/15/17 16:00 103.6 127 18 127/71 (89) 98 Exam CONSTITUTIONAL/GENERAL: This is a frail, thin young man TUBES/LINES/DRAINS: Peripheral IV left upper extremity, dialysis access right chest SKIN: No jaundice, rashes, or lesions. No wounds seen anteriorly-did not visualize but patient reports wounds to perirectal have resolved. Skin temperature warm. Not diaphoretic. HEAD: Atraumatic. Normocephalic. EYES: Pupils equal and round and reactive. Extraocular motions intact. No scleral icterus. No injection or drainage. Fundi not examined. ENT: Hearing grossly normal. Nose without bleeding or purulent drainage. Throat without visible erythema, exudates, masses, or lesions. NECK: Trachea midline. Supple, nontender. No palpable thyroid enlargement or nodularity. CARDIOVASCULAR: Regular rate and rhythm without murmurs.. No JVD. Feet are cool to the touch, peripheral pulses faint RESPIRATORY/CHEST: Symmetric, unlabored respirations. On room air Clear to auscultation. Breath sounds equal bilaterally. GASTROINTESTINAL: Abdomen soft, flat, non-tender, nondistended. No hepato- splenomegaly, or palpable masses. No guarding. Bowel sounds present. GENITOURINARY: Without palpable bladder distension. MUSCULOSKELETAL: Extremities without clubbing, cyanosis, or edema. No joint tenderness or effusion noted. No calf tenderness. No mottling or clubbing. Extremities are very thin with muscle atrophy evident LYMPHATICS: No palpable cervical or supraclavicular adenopathy. NEUROLOGICAL: Awake and alert. Oriented 3. Appropriate. Appears to have reasonable insight. Voice very quiet, soft-spoken. Follows commands. Cognitively sharp. Moves all extremities. PSYCHIATRIC: No obvious anxiety/depression. no apparent hallucinations or other psychotic thought process. (Keily Ackerman) Diagnostic Tests Laboratory Laboratory Tests Test 01/14/17 08:00 01/15/17 06:30 01/15/17 12:11 01/16/17 05:45 White Blood Count 11.6 TH/MM3 (4.0-11.0) 9.2 TH/MM3 (4.0-11.0) 11.4 TH/MM3 (4.0-11.0) Red Blood Count 3.14 MIL/MM3 (4.50-5.90) 3.12 MIL/MM3 (4.50-5.90) 3.25 MIL/MM3 (4.50-5.90) Hemoglobin 8.5 GM/DL (13.0-17.0) 8.6 GM/DL (13.0-17.0) 8.7 GM/DL (13.0-17.0) Hematocrit 26.8 % (39.0-51.0) 26.5 % (39.0-51.0) 27.7 % (39.0-51.0) Mean Corpuscular Volume 85.2 FL (80.0-100.0) 84.8 FL (80.0-100.0) 85.2 FL (80.0-100.0) Mean Corpuscular Hemoglobin 27.1 PG (27.0-34.0) 27.5 PG (27.0-34.0) 26.9 PG (27.0-34.0) Mean Corpuscular Hemoglobin Concent 31.8 % (32.0-36.0) 32.4 % (32.0-36.0) 31.6 % (32.0-36.0) Red Cell Distribution Width 19.2 % (11.6-17.2) 19.4 % (11.6-17.2) 19.3 % (11.6-17.2) Platelet Count 90 TH/MM3 (150-450) 96 TH/MM3 (150-450) 102 TH/MM3 (150-450) Mean Platelet Volume 9.4 FL (7.0-11.0) 9.5 FL (7.0-11.0) 9.2 FL (7.0-11.0) Neutrophils (%) (Auto) 85.3 % (16.0-70.0) Lymphocytes (%) (Auto) 2.5 % (9.0-44.0) Monocytes (%) (Auto) 10.9 % (0.0-8.0) Eosinophils (%) (Auto) 0.5 % (0.0-4.0) Basophils (%) (Auto) 0.8 % (0.0-2.0) Neutrophils # (Auto) 9.9 TH/MM3 (1.8-7.7) Lymphocytes # (Auto) 0.3 TH/MM3 (1.0-4.8) Monocytes # (Auto) 1.3 TH/MM3 (0-0.9) Eosinophils # (Auto) 0.1 TH/MM3 (0-0.4) Basophils # (Auto) 0.1 TH/MM3 (0-0.2) CBC Comment AUTO DIFF AUTO DIFF AUTO DIFF Differential Total Cells Counted 100 100 100 Neutrophils % (Manual) 67 % (16-70) 57 % (16-70) 56 % (16-70) Band Neutrophils % 10 % (0-6) 23 % (0-6) 10 % (0-6) Lymphocytes % 5 % (9-44) 2 % (9-44) 7 % (9-44) Monocytes % 11 % (0-8) 12 % (0-8) 20 % (0-8) Eosinophils % 2 % (0-4) Basophils % 1 % (0-2) Neutrophils # (Manual) 9.4 TH/MM3 (1.8-7.7) 7.9 TH/MM3 (1.8-7.7) 8.3 TH/MM3 (1.8-7.7) Metamyelocytes 4 % (0-1) 4 % (0-1) 3 % (0-1) Differential Comment FINAL DIFF MANUAL FINAL DIFF MANUAL FINAL DIFF MANUAL Toxic Granulation 1+ (NORMAL) Platelet Estimate LOW (NORMAL) LOW (NORMAL) LOW (NORMAL) Platelet Morphology Comment ENLARGED (NORMAL) NORMAL (NORMAL) NORMAL (NORMAL) Urine Color YELLOW (YELLW/STRAW) Urine Turbidity CLEAR (CLEAR) Urine pH 8.5 (5.0-8.5) Urine Specific Stanton 1.014 (1.002-1.035) Urine Protein GREATER THAN 600 mg/dL Urine Glucose (UA) 70 mg/dL (NEG) Urine Ketones NEG mg/dL (NEG) Urine Occult Blood NEG (NEG) Urine Nitrite NEG (NEG) Urine Bilirubin NEG (NEG) Urine Urobilinogen LESS THAN 2.0 MG/DL (LESS Urine Leukocyte Esterase NEG (NEG) Urine RBC 2 /hpf (0-3) Urine WBC 9 /hpf (0-5) Urine Bacteria RARE /hpf (NONE) Microscopic Urinalysis Comment CULTURE INDICATED Myelocytes 2 % (0-0) 3 % (0-0) Blood Urea Nitrogen 24 MG/DL (7-18) Creatinine 5.94 MG/DL (0.60-1.30) Random Glucose 72 MG/DL (74-106) Calcium Level 8.6 MG/DL (8.5-10.1) Sodium Level 136 MEQ/L (136-145) Potassium Level 3.9 MEQ/L (3.5-5.1) Chloride Level 98 MEQ/L (98-107) Carbon Dioxide Level 31.9 MEQ/L (21.0-32.0) Anion Gap 6 MEQ/L (5-15) Estimat Glomerular Filtration Rate 12 ML/MIN (>89) Promyelocytes 1 % (0-0) Ovalocytes 1+ (NORMAL) (Keily Ackerman ROLLER) Result Diagram: 01/16/17 0545 01/15/17 1211 Microbiology Microbiology Date/Time Source Procedure Growth Status 01/14/17 19:25 Blood Peripheral Aerobic Blood Culture - Preliminary NO GROWTH IN 2 DAYS Resulted 01/14/17 19:25 Blood Peripheral Anaerobic Blood Culture - Preliminary NO GROWTH IN 2 DAYS Resulted 01/14/17 19:20 Blood Peripheral Aerobic Blood Culture - Preliminary NO GROWTH IN 2 DAYS Resulted 01/14/17 19:20 Blood Peripheral Anaerobic Blood Culture - Preliminary NO GROWTH IN 2 DAYS Resulted 01/15/17 06:30 Urine Clean Catch Urine Culture - Preliminary NO GROWTH IN 24 HOURS. Resulted Imaging Last Impressions Chest X-Ray 01/14/17 0000 Signed Impressions: Service Date/Time: Saturday, January 14, 2017 21:41 - CONCLUSION: 1. Mild basilar density, probably dependent atelectasis or mild infiltrate. No effusion. No pneumothorax. Denzel Potter MD Brain MRI 01/11/17 0000 Signed Impressions: Service Date/Time: Wednesday, January 11, 2017 16:20 - CONCLUSION: Questionable minimal transependymal migration of CSF adjacent to the lateral ventricles. Otherwise normal. Juve Hsu MD Gallium Scan Nuclear Medicine 12/19/16 0000 Signed Impressions: Service Date/Time: Monday, December 19, 2016 13:19 - CONCLUSION: Negative for occult inflammatory process. Enzo Isbell MD FACR Upper Extremity Ultrasound 12/07/16 0000 Signed Impressions: Service Date/Time: Wednesday, December 07, 2016 10:11 - CONCLUSION: Venous mapping as above. Enzo Isbell MD FACR Renal Biopsy CT 12/01/16 0600 Signed Impressions: Service Date/Time: November 14:17 - CONCLUSION: Uncomplicated CT guided biopsy. Alexis Adhikari MD Central Venous Line 11/29/16 0000 Signed Impressions: Service Date/Time: Tuesday, November 29, 2016 00:00 - CONCLUSION: Uncomplicated catheter removal. Solitario Diaz MD Catheter Placement X-Ray 11/29/16 0000 Signed Impressions: Service Date/Time: Tuesday, November 29, 2016 13:58 - CONCLUSION: Uncomplicated PermaCath placement as above. Solitario Diaz MD Tumor Localization 11/14/16 0000 Signed Impressions: Service Date/Time: Monday, November 14, 2016 11:38 - CONCLUSION: Negative scan Solitario Diaz MD Renal Ultrasound 11/05/16 0000 Signed Impressions: Service Date/Time: Saturday, November 05, 2016 19:17 - CONCLUSION: Diffusely echogenic kidneys indicating medical renal disease. Dorian Murry MD Abdomen/Pelvis CT 11/05/16 0000 Signed Impressions: Service Date/Time: Saturday, November 05, 2016 17:19 - CONCLUSION: 1. 4 mm calculus in the right renal pelvis/ureteropelvic junction with mild adjacent perinephric/periureteral stranding. No evidence of hydronephrosis. 2. 1 cm round hypodensity in the anterior right mid kidney statistically most likely to represent a cyst. 3. 3.7 cm hypodensity in the right lobe of the liver air the dome of the diaphragm. This finding is nonspecific on noncontrast CT. The most likely etiologies include hemangioma and cyst. It could be further evaluated with ultrasound nonemergent followup MRI of the abdomen. 4. Mild dilated proximal right common iliac artery. Dorian Murry MD Procedures 11/14/16 right IJ hemodialysis catheter placement IR 11/29 new Hemodialysis catheter right IJ 12/01 CT-guided needle biopsy right kidney 12/14 laparoscopic-assisted peritoneal [facility] Patient/Family Conference Present at Family Conference: Patient Family Conference Time (mins): 35 (minutes) Family Conference Location: Bedside Issues Discussed: Met with patient approximately 30-40 minutes at bedside. Discussion included the following: * Palliative care role, purpose, approach * Additional medical, psychosocial, and spiritual history * Patients general health, functional status, and cognitive changes in the months leading up to the current hospitalization * Patient/family understanding of the current medical problems * Patient/family understanding of prognosis--extensive review of underlying conditions, prolonged hospital course, treatments in place for prognosis going forward and likely trajectory * Patients goals of care as best understood from advance directives and/or conversations and/or values * Current medical treatment options and benefits/burdens of those options * Designation of healthcare surrogate/advanced directives-he will consider HCS designation * CODE STATUS- he needs to think about this more for now would remain full code by default * Likely scenarios comparing ongoing aggressive care with a transition to comfort measures only; review of hospice role, philosophy, services provided * Questions answered to the best of my ability * Palliative care contact information provided I offered to call someone in his support system family/friend to provide an update he indicates he would speak with them first and advise if he wanted me to call. 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 Not no children. Also supported by a niece and brother. Has lived in [place] for about 15 years, originally from [place]. Spiritual:No particular confucianism affiliation does not want airline counter agent support Legal:Patient currently capacitated and able to make his own decisions. Discussion of health care surrogate designation with him he is considering designating his significant other Corbin Scott however wishes to talk to his family/support before making designation. Ethical issues impacting care: No ethical issues identified Important Contacts Alexis Hu brother [phone] Friend/ Partner Mr. Corbin Scott [phone] . Prognosis This patient initially presented to the ED for chronic wounds with perirectal area. He was admitted for further evaluation and management of sepsis, acute renal insufficiency. 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 He is also now hemodialysis dependent with no improvement in his renal function. CD4 count 3. May survive current acute illness with ongoing aggressive measures however high risk for ongoing complications and decline. Appropriate for hospice and comfort treatment only if goals compatible. Code Status: Full Code Plan * Legal decision maker:Patient currently capacitated and able to make his own decisions. Discussion of health care surrogate designation with him he is considering designating his significant other Corbin Scott however wishes to talk to his family/support before making designation. * Goals: Currently goals are aggressive. Patient appears to still be processing overall prognosis and advanced conditions. I have extensively reviewed with him overall prognosis and possible trajectories going forward as well as options of continued aggressive management versus transition to hospice and comfort focus only. * CODE STATUS: * SYMPTOMS: --malnutrition- frequently refuses PO. Albumin 2.5. Eating 0-15% of meals most days per records, rarely eats 50-75-100%. Has lost approx 10 kg (22 lb) since admission 2.5 mos ago. Patient describes not liking the food here, he indicates he would be better if it was food that he likes denies nausea or GI complaints --fever- unk etiology-- ? ES AIDs, renal failure-- ID cont to follow, ongoing fevers despite neg cultures, ongoing abx--cultures today from 01/14 preliminary positive gram-positive cocci --Anorexia-poor appetite during entire hospitalization. Very little oral intake. GI complaints. Could consider appetite stimulant which may offer some improvement. Likely this is secondary to disease progression, prolonged hospitalization, may also have some component of depression from chronic disease , prolonged hospitalization --Weakness-patient debilitated, 72 days in the hospital, poor oral intake. Working with physical therapy. May require rehabilitation or at the least home health upon discharge from the hospital setting. * Palliative care will continue to follow during hospital course as condition evolves, to assist patient/decision-maker with understanding of medical conditions, weighing benefits/burdens of treatment options, for clarification of goals of treatment. Additionally will assist with any symptoms of palliative concern (Keily Ackerman) Time Spent Total Floor Time (mins): 70 (Extensive Chart review, PE, meeting with patient, discussion with nurse, nurse food concession manager) (Keily Ackerman) Thank you for the opportunity to participate in the care of Mr. Hu. (Keily Ackerman) Attestation To help prompt me to consider important information that might be impacting today's encounter and assessment, information from prior notes written by myself or my colleagues may have been "brought forward" into today's note. My signature on this note, however, is an attestation that I personally performed the exam, history, and/or decision-making noted today, and, unless otherwise indicated, the interactions with patient, family, and staff as well as the review of records all occurred today. I also attest that the listed assessment and stated plan reflect my best clinical judgment today based on the combination of historical information, prior notes, and today's exam/ interactions. When time spent is documented, it refers only to time spent today by the signer, or if indicated, combined time spent today by collaborating physician/nurse practitioner. (Keily Ackerman) Collaborating MD Comments Chart reviewed. Case discussed with palliative care ROLLER. Above note reviewed and I concur. . (Messi Sims MD) Keily Ackerman Jan 16, 2017 15:17 Messi Sims MD Jan 19, 2017 17:12
--- NOTE | 2017-01-16 19:31 | HHI.NPPN ---
Subjective History of Present Illness 50-year-old male with past medical history of HIV disease for more than 20 years and history of renal stone who came to the hospital with complaint of back pain. The patient has back pain going on for the last 2 months off and on and he came to the emergency department yesterday with worsening pain. Additional Remarks Patient is alert, no SOB, no abd. pain, still spiking fever off and on. Review of Systems General Constitutional: Fatigue Cardiovascular Cardiac: MIRZA Objective Data Data 01/16/17 01/17/17 19:00 07:00 Intake Total 480 ml Output Total 200 ml Balance 280 ml Intake Oral 240 ml Oral Supplement 240 ml Output Urine Total 200 ml # Bowel Movements 2 Vital Signs Date Time Temp Pulse Resp B/P (MAP) Pulse Ox O2 Delivery O2 Flow Rate FiO2 01/16/17 18:30 96.5 01/16/17 16:02 97.8 72 20 143/95 (111) 100 01/16/17 12:02 99.1 87 18 109/70 (83) 98 01/16/17 12:00 98 Room Air 01/16/17 08:16 102.3 108 18 132/84 (100) 100 01/16/17 08:06 97 01/16/17 08:00 100 Room Air 01/16/17 04:00 99.8 01/16/17 04:00 99.8 89 18 140/91 (107) 97 01/16/17 04:00 99.8 01/16/17 02:01 99.3 01/16/17 00:49 100.7 01/16/17 00:48 100.7 01/16/17 00:30 101.2 01/16/17 00:00 102.3 109 18 132/80 (97) 99 01/15/17 21:37 102.7 01/15/17 20:00 99.1 90 18 108/68 (81) 100 01/15/17 20:00 Room Air 01/15/17 19:55 85 -: 01/16/17 0545 01/15/17 1211 Physical Exam General Appearance: No Acute Distress, Comfortable Eyes Eye Exam: Pupils Equal Throat Throat Exam: Oral Mucosa [place] & Moist Pulmonary Resp Exam: Breath Sounds Equal, No Distress, Rhonchi, Decreased Bases Cardiology CV Exam: Regular, Normal Sinus Rhythm Gastrointestinal/Abdomen GI Exam: Soft, Non-Tender, Bowel Sounds Present Extremeties Extremities Exam: No Edema Neurologic Neuro Exam: Alert, Awake, Oriented Psychiatric Psych Exam: Appropriate Responses Assessment/Plan Assessment Summary: MIKE/Acute Renal Failure Problem List: (1) Renal failure ICD Codes: N19 - Unspecified kidney failure Status: Acute (2) Sepsis ICD Codes: A41.9 - Sepsis, unspecified organism Status: Acute (3) Open wound of scrotum ICD Codes: S31.30XA - Unspecified open wound of scrotum and testes, initial encounter Status: Acute Plan c/o blurry vision left eye Remain non oliguric. SPEP was negative. Complements normal, other serology also negative. BP is better, on Metoprolol to 50 mg BID. If renal function will not improve, will consider Renal Biopsy once infection is controlled. Fever pattern is better, ID is following. Now on Bactrim, Acyclovir, Clarithromycin and Ethambutol. No improvement in renal function. Possibly has End stage renal disease. Got PermCath. 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 No need to repeat the renal Biopsy as clinically he is showing no improvement, and the with advance HIV , the treatment options are limited, cannot be given immunosuppressive drugs. He understand increase risk of infection due to advance HIV. Has PD catheter done. Now on Valganciclovir, ID following. Gallium scan is negative. HD to continue TTS. On Epogen , follow Hgb. Transfuse as needed. WBC better with Neupogen. MRI results noted. Spiking fever again, ID is following. Blood cultures done. HD to continue as schedule. Seen by palliative care. Problem Qualifiers (1) Renal failure: (2) Sepsis: Kwadwo Shah MD Jan 16, 2017 19:31
[2017-01-17] VITALS: BP 147/96; PULSE 71; RESP 20; TEMP 97.2; O2SAT 100
[2017-01-17 04:00] VITALS: BP 148/97; PULSE 69; RESP 18; TEMP 97.7; O2SAT 100
[2017-01-17 08:00] VITALS: PULSE 72
[2017-01-17 08:02] VITALS: BP 138/85; PULSE 68; RESP 18; TEMP 97.7; O2SAT 100
[2017-01-17] MEDS: DOCUSATE SODIUM 50 MG/SENNA 8.6 MG TAB PO SCH ×2 (09:00→20:21)
[2017-01-17] MEDS: GENTAMICIN SULFATE (DIALYSIS USE ONLY) 20 MG/2 ML VIAL IV PRN (10:45)
[2017-01-17] MEDS: EPOETIN ALFA 10,000 UNITS/ML VIAL IV PRN (10:45)
[2017-01-17] MEDS: HEPARIN SODIUM - IV 10,000 UNITS/10 ML VIAL PRN (10:45)
--- NOTE | 2017-01-17 12:36 | HHI.IDPN ---
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, on HD; S/P PD cath Notes reviewed Last fever 01/16 AM No new complaint Palliative med notes noted Not coughing or SOB No diarrhea Voiding ok reviewed PT notes - he has not really worked with PT Patient states he walked some Bactrim stopped, last dose given 01/13 Repeat BC have been negative he has had extensive FUO work-up and have been negative Antibiotics I attest that I obtained, updated or reviewed the home and current medications. Rifampin Biaxin Ethambutol Diflucan Current Medications Medications (Trade) Dose Ordered Sig/Nyla Route Start Time Stop Time Status Last Admin (NS Flush) 2 ml UNSCH PRN IV FLUSH 11/05/16 16:15 (Tylenol) 650 mg Q4H PRN PO 11/05/16 16:15 01/16/17 08:55 (Zofran Inj) 4 mg Q6H PRN IVP 11/05/16 16:15 01/06/17 19:42 (Heparin Inj) 5,000 units Q12H SQ 11/05/16 17:00 Future Hold 12/08/16 18:16 (Narcan Inj) 0.4 mg UNSCH PRN IV 11/05/16 16:15 (Dee-Colace) 1 tab BID PO 11/05/16 21:00 01/12/17 19:57 (Milk Of Magnesia Liq) 30 ml Q12H PRN PO 11/05/16 16:15 (Senokot) 17.2 mg Q12H PRN PO 11/05/16 16:15 (Dulcolax Supp) 10 mg DAILY PRN RECTAL 11/05/16 16:15 (Lactulose Liq) 30 ml DAILY PRN PO 11/05/16 16:15 (Pill Splitter) 1 ea UNSCH PRN OTHER 11/13/16 14:30 Sodium Chloride 1,000 ml @ 0 mls/hr Q0M PRN IV 11/13/16 17:02 01/03/17 11:10 (Heparin Inj) 8,000 units UNSCH PRN IVF 11/13/16 17:15 12/31/16 09:59 Sodium Chloride 1,000 ml @ 200 mls/hr Q5H PRN IV 11/13/16 17:02 Sodium Chloride 1,000 ml @ 0 mls/hr Q0M PRN IV 11/13/16 17:02 (Mannitol Inj) 12.5 gm UNSCH PRN IV 11/13/16 17:15 (Albumin 25% Inj) 25 gm UNSCH PRN IV 11/13/16 17:15 12/31/16 09:58 (NS Flush) 5 ml UNSCH PRN IV FLUSH 11/13/16 17:15 12/17/16 10:57 (Heparin Inj) UNSCH PRN .XX 11/13/16 17:15 01/17/17 10:45 (Gentamicin (Dialysis) Inj) 20 mg UNSCH PRN IV 11/13/16 17:15 01/17/17 10:45 (Zofran Inj) 4 mg UNSCH PRN IV 11/13/16 17:15 12/09/16 20:25 (Tylenol) 650 mg UNSCH PRN PO 11/13/16 17:15 01/03/17 21:57 (Benadryl) 25 mg UNSCH PRN PO 11/13/16 17:15 01/13/17 03:43 (Nitrostat Sl) 0.4 mg UNSCH PRN SL 11/13/16 17:15 (Catapres) 0.1 mg UNSCH PRN PO 11/13/16 17:15 01/14/17 12:46 (Gelfoam 12 Mm/7 Mm Top) 1 foam UNSCH PRN TOP 11/13/16 17:15 (Lopressor) 50 mg Q12HR PO 11/16/16 21:00 Future Hold 12/02/16 08:53 (Norvasc) 5 mg DAILY PO 11/19/16 12:00 Future Hold 12/02/16 08:53 (Biaxin) 500 mg Q12HR PO 11/21/16 21:00 01/16/17 21:00 (NS Flush) UNSCH PRN IVF 11/29/16 18:15 (Heparin Inj) UNSCH PRN IV FLUSH 11/29/16 18:15 12/06/16 10:15 (Lactinex) 1 tab Q12HR PO 12/02/16 10:00 01/16/17 21:00 (Myambutol) 800 mg DAILY PO 12/04/16 09:00 01/16/17 08:55 (Epogen Inj) 10,000 units UNSCH PRN IV 12/06/16 09:30 01/17/17 10:45 (Rifampin) 300 mg Q12HR PO 12/09/16 21:00 01/16/17 21:00 (NS Flush) 2 ml UNSCH PRN IV FLUSH 12/14/16 10:45 (NS Flush) 2 ml BID IV FLUSH 12/14/16 21:00 01/16/17 21:02 ([place] 5-325 Mg) 1 tab Q4H PRN PO 12/14/16 10:45 ([place] 5-325 Mg) 2 tab Q4H PRN PO 12/14/16 10:45 Potassium Chloride/Sodium Chloride 1,000 ml @ 42 mls/hr [id number] IV 01/09/17 15:00 01/16/17 08:58 (Deltasone) 40 mg DAILY PO 01/16/17 10:00 01/16/17 11:01 (Diflucan) 100 mg Q24H PO 01/16/17 11:00 01/16/17 11:01 Lines permacath Past Medical History HIV, for 20+years, noncompliant with medications for the past 2 months Kidney stones Allergies: Coded Allergies: No Known Allergies (Unverified , 11/05/16) Objective . Vital Signs Date Time Temp Pulse Resp B/P (MAP) Pulse Ox O2 Delivery O2 Flow Rate FiO2 01/17/17 08:02 97.7 68 18 138/85 (102) 100 01/17/17 04:00 Room Air 01/17/17 04:00 97.7 69 18 148/97 (114) 100 01/17/17 00:00 97.2 71 20 147/96 (113) 100 01/17/17 00:00 Room Air 01/16/17 20:00 Room Air 01/16/17 20:00 98.0 71 16 146/96 (113) 100 01/16/17 20:00 98 01/16/17 18:30 96.5 01/16/17 16:02 97.8 72 20 143/95 (111) 100 01/17/17 01/17/17 01/18/17 15:00 23:00 07:00 Output Total 1500 ml Balance -1500 ml Hemodialysis 1500 ml . Laboratory Tests Test 01/16/17 05:45 White Blood Count 11.4 TH/MM3 Red Blood Count 3.25 MIL/MM3 Hemoglobin 8.7 GM/DL Hematocrit 27.7 % Mean Corpuscular Volume 85.2 FL Mean Corpuscular Hemoglobin 26.9 PG Mean Corpuscular Hemoglobin Concent 31.6 % Red Cell Distribution Width 19.3 % Platelet Count 102 TH/MM3 Mean Platelet Volume 9.2 FL CBC Comment AUTO DIFF Differential Total Cells Counted 100 Neutrophils % (Manual) 56 % Band Neutrophils % 10 % Lymphocytes % 7 % Monocytes % 20 % Neutrophils # (Manual) 8.3 TH/MM3 Metamyelocytes 3 % Myelocytes 3 % Promyelocytes 1 % Differential Comment FINAL DIFF MANUAL Platelet Estimate LOW Platelet Morphology Comment NORMAL Ovalocytes 1+ Microbiology Date/Time Source Procedure Growth Status 01/14/17 19:25 Blood Peripheral Aerobic Blood Culture - Preliminary NO GROWTH IN 3 DAYS Resulted 01/14/17 19:25 Anaerobic Blood Culture - Preliminary Staph Sp Coagulase Negative Resulted 01/14/17 19:20 Blood Peripheral Aerobic Blood Culture - Preliminary NO GROWTH IN 3 DAYS Resulted 01/14/17 19:20 Blood Peripheral Anaerobic Blood Culture - Preliminary NO GROWTH IN 3 DAYS Resulted 01/15/17 06:30 Urine Clean Catch Urine Culture - Final NO GROWTH IN 48 HOURS. Complete Imaging Last Impressions Renal Biopsy CT 12/01/16 0600 Signed Impressions: Service Date/Time: November 14:17 - CONCLUSION: Uncomplicated CT guided biopsy. Alexis Adhikari MD Central Venous Line 11/29/16 0000 Signed Impressions: Service Date/Time: Tuesday, November 29, 2016 00:00 - CONCLUSION: Uncomplicated catheter removal. Solitario Diaz MD Catheter Placement X-Ray 11/29/16 0000 Signed Impressions: Service Date/Time: Tuesday, November 29, 2016 13:58 - CONCLUSION: Uncomplicated PermaCath placement as above. Solitario Diaz MD Tumor Localization 11/14/16 0000 Signed Impressions: Service Date/Time: Monday, November 14, 2016 11:38 - CONCLUSION: Negative scan Solitario Diaz MD Chest X-Ray 11/13/16 0000 Signed Impressions: Service Date/Time: Sunday, November 13, 2016 16:02 - CONCLUSION: No acute cardiopulmonary disease. Quincy Medellin MD Renal Ultrasound 11/05/16 0000 Signed Impressions: Service Date/Time: Saturday, November 05, 2016 19:17 - CONCLUSION: Diffusely echogenic kidneys indicating medical renal disease. Dorain Murry MD Abdomen/Pelvis CT 11/05/16 0000 Signed Impressions: Service Date/Time: Saturday, November 05, 2016 17:19 - CONCLUSION: 1. 4 mm calculus in the right renal pelvis/ureteropelvic junction with mild adjacent perinephric/periureteral stranding. No evidence of hydronephrosis. 2. 1 cm round hypodensity in the anterior right mid kidney statistically most likely to represent a cyst. 3. 3.7 cm hypodensity in the right lobe of the liver air the dome of the diaphragm. This finding is nonspecific on noncontrast CT. The most likely etiologies include hemangioma and cyst. It could be further evaluated with ultrasound nonemergent followup MRI of the abdomen. 4. Mild dilated proximal right common iliac artery. Dorian Murry MD Physical Exam GENERAL: awake, following commands, not in respiratory distress. SKIN: Warm and dry. Dry skin EYES: [place] conjunctiva. No petechia or hemorrhage. No scleral icterus. No injection or drainage. EARS, NOSE AND THROAT: Nose without bleeding or purulent nasal discharge. Mucous membranes pink and moist. White coating on tongue NECK: Trachea midline. Supple and not tender, no meningeal signs CARDIOVASCULAR: Regular rate and rhythm. No murmurs, rubs or gallops heard RESPIRATORY: Clear to auscultation. Breath sounds equal bilaterally. No rales , wheezing or rhonchi ABDOMEN: Soft, not tender, not distended, dry dressing over cath. No guarding. No rebound. No organomegaly. Has stable oblong brown non tender nodule on R lateral groin (chronic been there for years, not getting bigger) EXTREMITIES: No clubbing, cyanosis, or edema. No joint effusion, has good ROM. No calf tenderness. Well perfused and warm. BUTTOCK: Ulcers healed NEUROLOGICAL: Awake alert Non-focal except that he is not speaking PSYCHIATRIC: Normal affect, calm and cooperative. 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
--- NOTE | 2017-01-17 13:40 | HHI.HCPN ---
Met with Mr. Hu for ongoing support and continue conversation regarding goals of care and advanced directives. Mr. Hu is currently lying in pain, no apparent distress and denies any problematic symptoms. Verbalizes he is feeling well today. Reports a good appetite. Lunch tray in room. Confirms discussion with palliative CORK SORTER Keily Ackerman yesterday. He declines any questions or concerns at this time regarding conversation. He tells me he has not had the chance to speak with family regarding his advanced directives/health care surrogate. Denies any questions with these documents. Palliative care number provided. Palliative care will continue to follow throughout hospitalization to continue conversation regarding goals of care, advanced directives, and ongoing emotional/social support. Leah Rhoades, HAND TUFTER Jan 17, 2017 13:40
--- NOTE | 2017-01-17 13:55 | HHI.PR ---
Subjective Remarks No fever since yesterday, he is resting well in bed, reporting feeling better no chills today Objective Vitals Vital Signs Date Time Temp Pulse Resp B/P (MAP) Pulse Ox O2 Delivery O2 Flow Rate FiO2 01/17/17 08:02 97.7 68 18 138/85 (102) 100 01/17/17 04:00 Room Air 01/17/17 04:00 97.7 69 18 148/97 (114) 100 01/17/17 00:00 97.2 71 20 147/96 (113) 100 01/17/17 00:00 Room Air 01/16/17 20:00 Room Air 01/16/17 20:00 98.0 71 16 146/96 (113) 100 01/16/17 20:00 98 01/16/17 18:30 96.5 01/16/17 16:02 97.8 72 20 143/95 (111) 100 I/O 01/16/17 01/16/17 01/16/17 01/17/17 01/17/17 01/17/17 07:00 15:00 23:00 07:00 15:00 23:00 Intake Total 500 ml 480 ml 480 ml Output Total 200 ml 200 ml 1500 ml Balance 300 ml 280 ml 480 ml -1500 ml Intake Oral 500 ml 240 ml 480 ml Oral Supplement 240 ml Output Urine Total 200 ml 200 ml Hemodialysis 1500 ml # Voids 0 # Bowel Movements 0 2 2 Result Diagram: 01/16/17 0545 01/15/17 1211 Objective Remarks - GENERAL: This is a well-nourished, well-developed patient, in no apparent distress. SKIN: No rashes, warm and dry HEAD: Atraumatic. Normocephalic. EYES: Pupils equal round and reactive. Extraocular motions intact. No scleral icterus. ENT: Nose without bleeding, or drainage, Airway patent. NECK: Trachea midline. Supple CARDIOVASCULAR: Regular rate and rhythm without murmurs, gallops, or rubs. RESPIRATORY: Fair air entry bilaterally. No wheezes, rales, or rhonchi. GASTROINTESTINAL: Abdomen soft, non-tender, nondistended. Positive bowel sounds MUSCULOSKELETAL: Extremities without clubbing, cyanosis, or edema. Pedal pulses appreciated NEUROLOGICAL: Awake and alert not very communicative, moves all extremity. Procedures 11/14/16 hemodialysis catheter placement, right internal jugular 12/14 PD cath placement A/P Problem List: (1) Renal failure ICD Code: N19 - Unspecified kidney failure Status: Acute (2) Sepsis ICD Code: A41.9 - Sepsis, unspecified organism Status: Acute (3) UTI (urinary tract infection) ICD Code: N39.0 - Urinary tract infection, site not specified (4) Chronic kidney disease, stage V ICD Code: N18.5 - Chronic kidney disease, stage 5 (5) HIV (human immunodeficiency virus infection) ICD Code: B20 - Human immunodeficiency virus [HIV] disease (6) Anemia ICD Code: D64.9 - Anemia, unspecified (7) Hypertension ICD Code: I10 - Essential (primary) hypertension (8) Medical non-compliance ICD Code: Z91.19 - Patient's noncompliance with other medical treatment and regimen Assessment and Plan 01/11: Slight change in mental status, discussed with ID who more appreciate that changes since this is my first time seeing the patient. We will continue continue current management and monitor neurochecks 01/12: MRI of the brain with unremarkable, response to simple question is better today, continue current management and follow up with ID recommendation 01/13: Appreciate psychiatry consultation, no need for inpatient psychiatry or medication, continue following with ID nephrology and hematology 01/14: Patient had a dialysis now, he had a fever of 101.4, WBC today 11.6 repeat in a.m., he is being followed by ID continue current antibiotic no change , nephrology following for dialysis, 01/15: Patient still spiking fever 102 this morning he is shivering, WBC is 9 today, ID recommended continuing current management 01/16: Continue to spike fever 101, 102.3> ID did not recommend changing in his current regimen will will continue , immunity reconstitution status"" 01/17: No fever since yesterday, continue monitoring, ID following, monitor CBC , appreciate palliative care input, continue aggressive treatment at this point full code A/P: - Severe sepsis secondary to UTI, pneumonia: Status post treatment with Zosyn. Patient is immunocompromised, noncompliant with HAART for 2 months prior to admission. HSV positive. 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 Blood mycobacterial culture growing acid fast organism. Further ID pending. Still having fevers. - FUO: Due to restart Bactrim, drug induced, as above, ID following - Acute renal failure superimposed on chronic kidney disease stage V: Appreciate nephrology recommendations. SPEP, serology negative. Creatinine not improving. Hemodialysis per nephrology.renal bx :FSGN - HIV/AIDS: CD4 count less than 20. Patient admitted to being noncompliant with HAART meds. He has been counseled. - Oral thrush: Continue nystatin. - Anemia: Hemoglobin trending down again. Monitor H/H. Received transfusion 1 unit PRBCs on 12/08/16. He has received 7 units total during this hospitalization. - Hypertension, tachycardia: Continue metoprolol. - Buttock, perirectal wounds: HSV positive. Continue Valtrex 14 days then chronic suppression with acyclovir. - Neutropenia: Management per hematology. Given Neupogen. - DVT prophylaxis: Heparin. 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 Problem Qualifiers (1) Renal failure: (2) Sepsis: (3) Anemia: Maggy Cordero MD Jan 17, 2017 13:55
[2017-01-17] MEDS: CLARITHROMYCIN 500 MG TAB PO SCH ×2 (13:59→20:25)
[2017-01-17] MEDS: RIFAMPIN 150 MG CAP PO SCH ×2 (13:59→20:26)
[2017-01-17] MEDS: LACTOBACILLUS ACIDOPHILUS TAB PO SCH ×2 (13:59→20:26)
[2017-01-17] MEDS: FLUCONAZOLE 100 MG TAB PO SCH (14:00)
[2017-01-17] MEDS: predniSONE 20 MG TAB PO SCH (14:00)
[2017-01-17] MEDS: ETHAMBUTOL HCL 400 MG TAB PO SCH (14:00)
[2017-01-17] MEDS: SODIUM CHLORIDE 0.9% FLUSH 10 ML FLUSH IV FLUSH SCH ×2 (14:00→20:25)
[2017-01-17] MEDS: NS + KCL 20 MEQ INJ 1,000 ML IV SCH (14:00)
[2017-01-17 16:06] VITALS: BP 136/84; PULSE 96; RESP 17; TEMP 99.8; O2SAT 100
--- NOTE | 2017-01-17 19:42 | HHI.NPPN ---
Subjective History of Present Illness 50-year-old male with past medical history of HIV disease for more than 20 years and history of renal stone who came to the hospital with complaint of back pain. The patient has back pain going on for the last 2 months off and on and he came to the emergency department yesterday with worsening pain. Additional Remarks Patient is alert, no SOB, no abd. pain, doing better, fever pattern is better, now afebrile. Review of Systems General Constitutional: Fatigue Cardiovascular Cardiac: MIRZA Objective Data Data 01/17/17 01/18/17 19:00 07:00 Intake Total 480 ml Output Total 1600 ml Balance -1120 ml Intake Oral 480 ml Output Urine Total 100 ml Hemodialysis 1500 ml # Bowel Movements 0 Vital Signs Date Time Temp Pulse Resp B/P (MAP) Pulse Ox O2 Delivery O2 Flow Rate FiO2 01/17/17 16:06 99.8 96 17 136/84 (101) 100 01/17/17 08:02 97.7 68 18 138/85 (102) 100 01/17/17 08:00 72 01/17/17 08:00 Room Air 01/17/17 04:00 Room Air 01/17/17 04:00 97.7 69 18 148/97 (114) 100 01/17/17 00:00 97.2 71 20 147/96 (113) 100 01/17/17 00:00 Room Air 01/16/17 20:00 Room Air 01/16/17 20:00 98.0 71 16 146/96 (113) 100 01/16/17 20:00 98 -: 01/16/17 0545 01/15/17 1211 Physical Exam General Appearance: No Acute Distress, Comfortable Eyes Eye Exam: Pupils Equal Throat Throat Exam: Oral Mucosa Archer & Moist Pulmonary Resp Exam: Breath Sounds Equal, No Distress, Rhonchi, Decreased Bases Cardiology CV Exam: Regular, Normal Sinus Rhythm Gastrointestinal/Abdomen GI Exam: Soft, Non-Tender, Bowel Sounds Present Extremeties Extremities Exam: No Edema Neurologic Neuro Exam: Alert, Awake, Oriented Psychiatric Psych Exam: Appropriate Responses Assessment/Plan Assessment Summary: MIKE/Acute Renal Failure Problem List: (1) Renal failure ICD Codes: N19 - Unspecified kidney failure Status: Acute (2) Sepsis ICD Codes: A41.9 - Sepsis, unspecified organism Status: Acute (3) Open wound of scrotum ICD Codes: S31.30XA - Unspecified open wound of scrotum and testes, initial encounter Status: Acute Plan c/o blurry vision left eye Remain non oliguric. SPEP was negative. Complements normal, other serology also negative. BP is better, on Metoprolol to 50 mg BID. If renal function will not improve, will consider Renal Biopsy once infection is controlled. Fever pattern is better, ID is following. Now on Bactrim, Acyclovir, Clarithromycin and Ethambutol. No improvement in renal function. Possibly has End stage renal disease. Got PermCath. 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 No need to repeat the renal Biopsy as clinically he is showing no improvement, and the with advance HIV , the treatment options are limited, cannot be given immunosuppressive drugs. He understand increase risk of infection due to advance HIV. Has PD catheter done. Now on Valganciclovir, ID following. Gallium scan is negative. HD to continue TTS. On Epogen , follow Hgb. On Diflucan along with antibiotics for LULU. Continue HD, done in AM today. Problem Qualifiers (1) Renal failure: (2) Sepsis: Kwadwo Shah MD Jan 17, 2017 19:42
[2017-01-17 20:00] VITALS: BP 151/95; PULSE 87; PULSE 88; RESP 16; TEMP 99.3; O2SAT 99
[2017-01-18] VITALS (8 sets, daily range): BP systolic 130–161; BP diastolic 88–107; PULSE 58–76; RESP 16–18; TEMP 97–99.1; O2SAT 99–100
[2017-01-18] MEDS: cloNIDine HCL 0.1 MG TAB PO PRN (06:39)
[2017-01-18] MEDS: CLARITHROMYCIN 500 MG TAB PO SCH ×2 (08:40→20:37)
[2017-01-18] MEDS: RIFAMPIN 150 MG CAP PO SCH ×2 (08:40→20:37)
[2017-01-18] MEDS: ETHAMBUTOL HCL 400 MG TAB PO SCH (08:40)
[2017-01-18] MEDS: predniSONE 20 MG TAB PO SCH (08:41)
[2017-01-18] MEDS: LACTOBACILLUS ACIDOPHILUS TAB PO SCH ×2 (08:41→20:37)
[2017-01-18] MEDS: SODIUM CHLORIDE 0.9% FLUSH 10 ML FLUSH IV FLUSH SCH ×2 (09:00→20:37)
[2017-01-18] MEDS: DOCUSATE SODIUM 50 MG/SENNA 8.6 MG TAB PO SCH ×2 (09:00→20:24)
--- NOTE | 2017-01-18 09:51 | HHI.IDPN ---
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 Rifampin Biaxin Ethambutol Diflucan Current Medications Medications (Trade) Dose Ordered Sig/Nyla Route Start Time Stop Time Status Last Admin (NS Flush) 2 ml UNSCH PRN IV FLUSH 11/05/16 16:15 (Tylenol) 650 mg Q4H PRN PO 11/05/16 16:15 01/16/17 08:55 (Zofran Inj) 4 mg Q6H PRN IVP 11/05/16 16:15 01/06/17 19:42 (Heparin Inj) 5,000 units Q12H SQ 11/05/16 17:00 Future Hold 12/08/16 18:16 (Narcan Inj) 0.4 mg UNSCH PRN IV 11/05/16 16:15 (Dee-Colace) 1 tab BID PO 11/05/16 21:00 01/12/17 19:57 (Milk Of Magnesia Liq) 30 ml Q12H PRN PO 11/05/16 16:15 (Senokot) 17.2 mg Q12H PRN PO 11/05/16 16:15 (Dulcolax Supp) 10 mg DAILY PRN RECTAL 11/05/16 16:15 (Lactulose Liq) 30 ml DAILY PRN PO 11/05/16 16:15 (Pill Splitter) 1 ea UNSCH PRN OTHER 11/13/16 14:30 Sodium Chloride 1,000 ml @ 0 mls/hr Q0M PRN IV 11/13/16 17:02 01/03/17 11:10 (Heparin Inj) 8,000 units UNSCH PRN IVF 11/13/16 17:15 12/31/16 09:59 Sodium Chloride 1,000 ml @ 200 mls/hr Q5H PRN IV 11/13/16 17:02 Sodium Chloride 1,000 ml @ 0 mls/hr Q0M PRN IV 11/13/16 17:02 (Mannitol Inj) 12.5 gm UNSCH PRN IV 11/13/16 17:15 (Albumin 25% Inj) 25 gm UNSCH PRN IV 11/13/16 17:15 12/31/16 09:58 (NS Flush) 5 ml UNSCH PRN IV FLUSH 11/13/16 17:15 12/17/16 10:57 (Heparin Inj) UNSCH PRN .XX 11/13/16 17:15 01/17/17 10:45 (Gentamicin (Dialysis) Inj) 20 mg UNSCH PRN IV 11/13/16 17:15 01/17/17 10:45 (Zofran Inj) 4 mg UNSCH PRN IV 11/13/16 17:15 12/09/16 20:25 (Tylenol) 650 mg UNSCH PRN PO 11/13/16 17:15 01/03/17 21:57 (Benadryl) 25 mg UNSCH PRN PO 11/13/16 17:15 01/13/17 03:43 (Nitrostat Sl) 0.4 mg UNSCH PRN SL 11/13/16 17:15 (Catapres) 0.1 mg UNSCH PRN PO 11/13/16 17:15 01/18/17 06:39 (Gelfoam 12 Mm/7 Mm Top) 1 foam UNSCH PRN TOP 11/13/16 17:15 (Lopressor) 50 mg Q12HR PO 11/16/16 21:00 Future Hold 12/02/16 08:53 (Norvasc) 5 mg DAILY PO 11/19/16 12:00 Future Hold 12/02/16 08:53 (Biaxin) 500 mg Q12HR PO 11/21/16 21:00 01/18/17 08:40 (NS Flush) UNSCH PRN IVF 11/29/16 18:15 (Heparin Inj) UNSCH PRN IV FLUSH 11/29/16 18:15 12/06/16 10:15 (Lactinex) 1 tab Q12HR PO 12/02/16 10:00 01/18/17 08:41 (Myambutol) 800 mg DAILY PO 12/04/16 09:00 01/18/17 08:40 (Epogen Inj) 10,000 units UNSCH PRN IV 12/06/16 09:30 01/17/17 10:45 (Rifampin) 300 mg Q12HR PO 12/09/16 21:00 01/18/17 08:40 (NS Flush) 2 ml UNSCH PRN IV FLUSH 12/14/16 10:45 (NS Flush) 2 ml BID IV FLUSH 12/14/16 21:00 01/17/17 14:00 ([place] 5-325 Mg) 1 tab Q4H PRN PO 12/14/16 10:45 ([place] 5-325 Mg) 2 tab Q4H PRN PO 12/14/16 10:45 Potassium Chloride/Sodium Chloride 1,000 ml @ 42 mls/hr [id number] IV 01/09/17 15:00 01/17/17 14:00 (Deltasone) 40 mg DAILY PO 01/16/17 10:00 01/18/17 08:41 (Diflucan) 100 mg Q24H PO 01/16/17 11:00 01/17/17 14:00 Lines permacath Past Medical History HIV, for 20+years, noncompliant with medications for the past 2 months Kidney stones Allergies: Coded Allergies: No Known Allergies (Unverified , 11/05/16) Objective . Vital Signs Date Time Temp Pulse Resp B/P (MAP) Pulse Ox O2 Delivery O2 Flow Rate FiO2 01/18/17 09:20 Room Air 01/18/17 08:00 97.0 70 16 151/106 (121) 100 01/18/17 04:00 98.3 70 16 159/107 (124) 99 01/18/17 04:00 Room Air 01/18/17 00:00 Room Air 01/18/17 00:00 99.1 76 16 161/104 (123) 99 01/17/17 20:00 99.3 88 16 151/95 (113) 99 01/17/17 20:00 Room Air 01/17/17 20:00 87 01/17/17 16:06 99.8 96 17 136/84 (101) 100 Imaging Last Impressions Renal Biopsy CT 12/01/16 0600 Signed Impressions: Service Date/Time: November 14:17 - CONCLUSION: Uncomplicated CT guided biopsy. Alexis Adhikari MD Central Venous Line 11/29/16 0000 Signed Impressions: Service Date/Time: Tuesday, November 29, 2016 00:00 - CONCLUSION: Uncomplicated catheter removal. Solitario Diaz MD Catheter Placement X-Ray 11/29/16 Signed Impressions: Service Date/Time: Tuesday, November 29, 2016 13:58 - CONCLUSION: Uncomplicated PermaCath placement as above. Solitario Diaz MD Tumor Localization 11/14/16 0000 Signed Impressions: Service Date/Time: Monday, November 14, 2016 11:38 - CONCLUSION: Negative scan Solitario Diaz MD Chest X-Ray 11/13/16 Signed Impressions: Service Date/Time: Sunday, November 13, 2016 16:02 - CONCLUSION: No acute cardiopulmonary disease. Quincy Medellin MD Renal Ultrasound 11/05/16 Signed Impressions: Service Date/Time: Saturday, November 05, 2016 19:17 - CONCLUSION: Diffusely echogenic kidneys indicating medical renal disease. Dorian Murry MD Abdomen/Pelvis CT 11/05/16 Signed Impressions: Service Date/Time: Saturday, November 05, 2016 17:19 - CONCLUSION: 1. 4 mm calculus in the right renal pelvis/ureteropelvic junction with mild adjacent perinephric/periureteral stranding. No evidence of hydronephrosis. 2. 1 cm round hypodensity in the anterior right mid kidney statistically most likely to represent a cyst. 3. 3.7 cm hypodensity in the right lobe of the liver air the dome of the diaphragm. This finding is nonspecific on noncontrast CT. The most likely etiologies include hemangioma and cyst. It could be further evaluated with ultrasound nonemergent followup MRI of the abdomen. 4. Mild dilated proximal right common iliac artery. Dorian Murry MD Physical Exam GENERAL: awake, following commands, not in respiratory distress. SKIN: Warm and dry. Dry skin EYES: [place] conjunctiva. No petechia or hemorrhage. No scleral icterus. No injection or drainage. EARS, NOSE AND THROAT: Nose without bleeding or purulent nasal discharge. Mucous membranes pink and moist. White coating on tongue NECK: Trachea midline. Supple and not tender, no meningeal signs CARDIOVASCULAR: Regular rate and rhythm. No murmurs, rubs or gallops heard RESPIRATORY: Clear to auscultation. Breath sounds equal bilaterally. No rales , wheezing or rhonchi ABDOMEN: Soft, not tender, not distended, dry dressing over cath. No guarding. No rebound. No organomegaly. Has stable oblong brown non tender nodule on R lateral groin (chronic been there for years, not getting bigger) EXTREMITIES: No clubbing, cyanosis, or edema. No joint effusion, has good ROM. No calf tenderness. Well perfused and warm. BUTTOCK: Ulcers healed NEUROLOGICAL: Awake alert Non-focal except that he is not speaking PSYCHIATRIC: Normal affect, calm and cooperative. 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
[2017-01-18] MEDS: FLUCONAZOLE 100 MG TAB PO SCH (11:23)
[2017-01-18] MEDS ORDERED: GETGO ROLLING W1 MI1 (13:26)
[2017-01-18] MEDS: NS + KCL 20 MEQ INJ 1,000 ML IV SCH (13:45)
--- NOTE | 2017-01-18 13:48 | HHI.PR ---
Subjective Remarks Follow-up visit noncompliance HIV, end-stage AIDS, renal failure on HD, on no fevers. Patient seen and examined today. No fevers overnight. Reports he still doing okay. States that he eats here in there. Appetite continues to be poor. States he is able to manage standing up and getting into the commode. Reports soft stools 2, applesauce consistency. Denies pain and discomfort. Denies SOB/ dyspnea. Denies chest pain, palpitations, headaches, dizziness. Denies fevers, chills, n/v. Objective Vitals Vital Signs Date Time Temp Pulse Resp B/P (MAP) Pulse Ox O2 Delivery O2 Flow Rate FiO2 01/18/17 13:46 Room Air 01/18/17 12:07 Room Air 01/18/17 12:00 97.3 71 16 150/92 (111) 100 01/18/17 11:10 58 01/18/17 09:20 Room Air 01/18/17 08:00 97.0 70 16 151/106 (121) 100 01/18/17 04:00 98.3 70 16 159/107 (124) 99 01/18/17 04:00 Room Air 01/18/17 00:00 Room Air 01/18/17 00:00 99.1 76 16 161/104 (123) 99 01/17/17 20:00 99.3 88 16 151/95 (113) 99 01/17/17 20:00 Room Air 01/17/17 20:00 87 01/17/17 16:06 99.8 96 17 136/84 (101) 100 I/O 01/17/17 01/17/17 01/17/17 01/18/17 01/18/17 01/18/17 07:00 15:00 23:00 07:00 15:00 23:00 Intake Total 480 ml 480 ml Output Total 1500 ml 100 ml 450 ml Balance 480 ml -1500 ml 380 ml -450 ml Intake Oral 480 ml 480 ml Output Urine Total 100 ml 450 ml Hemodialysis 1500 ml # Voids 0 # Bowel Movements 2 0 1 Result Diagram: 01/16/17 0545 01/15/17 1211 Imaging Last Impressions Chest X-Ray 01/14/17 0000 Signed Impressions: Service Date/Time: Saturday, January 14, 2017 21:41 - CONCLUSION: 1. Mild basilar density, probably dependent atelectasis or mild infiltrate. No effusion. No pneumothorax. Denzel Potter MD Brain MRI 01/11/17 0000 Signed Impressions: Service Date/Time: Wednesday, January 11, 2017 16:20 - CONCLUSION: Questionable minimal transependymal migration of CSF adjacent to the lateral ventricles. Otherwise normal. Juve Hsu MD Gallium Scan Nuclear Medicine 12/19/16 0000 Signed Impressions: Service Date/Time: Monday, December 19, 2016 13:19 - CONCLUSION: Negative for occult inflammatory process. Enzo Isbell MD FACR Upper Extremity Ultrasound 12/07/16 0000 Signed Impressions: Service Date/Time: Wednesday, December 07, 2016 10:11 - CONCLUSION: Venous mapping as above. Enzo Isbell MD FACR Renal Biopsy CT 12/01/16 0600 Signed Impressions: Service Date/Time: November 14:17 - CONCLUSION: Uncomplicated CT guided biopsy. Alexis Adhikari MD Central Venous Line 11/29/16 0000 Signed Impressions: Service Date/Time: Tuesday, November 29, 2016 00:00 - CONCLUSION: Uncomplicated catheter removal. Solitario Diaz MD Catheter Placement X-Ray 11/29/16 0000 Signed Impressions: Service Date/Time: Tuesday, November 29, 2016 13:58 - CONCLUSION: Uncomplicated PermaCath placement as above. Solitario Diaz MD Tumor Localization 11/14/16 0000 Signed Impressions: Service Date/Time: Monday, November 14, 2016 11:38 - CONCLUSION: Negative scan Solitario Diaz MD Renal Ultrasound 11/05/16 0000 Signed Impressions: Service Date/Time: Saturday, November 05, 2016 19:17 - CONCLUSION: Diffusely echogenic kidneys indicating medical renal disease. Dorian Murry MD Abdomen/Pelvis CT 11/05/16 0000 Signed Impressions: Service Date/Time: Saturday, November 05, 2016 17:19 - CONCLUSION: 1. 4 mm calculus in the right renal pelvis/ureteropelvic junction with mild adjacent perinephric/periureteral stranding. No evidence of hydronephrosis. 2. 1 cm round hypodensity in the anterior right mid kidney statistically most likely to represent a cyst. 3. 3.7 cm hypodensity in the right lobe of the liver air the dome of the diaphragm. This finding is nonspecific on noncontrast CT. The most likely etiologies include hemangioma and cyst. It could be further evaluated with ultrasound nonemergent followup MRI of the abdomen. 4. Mild dilated proximal right common iliac artery. Dorian Murry MD Objective Remarks GENERAL: This is a well-nourished, well-developed patient, in no apparent distress. SKIN: Warm and dry. Dee Anal area wound healing, dry, pink discoloration. HEENT: Normocephalic. Pupils equal round and reactive. Nose without bleeding. Airway patent. NECK: Trachea midline. Right SC Perma-Cath CARDIOVASCULAR: Regular rate and rhythm without murmurs, gallops, or rubs. RESPIRATORY: Diminished bases. No wheezes, rales, or rhonchi. GASTROINTESTINAL: Abdomen soft, non-tender, nondistended. Bowel Sounds normoactive x4. MUSCULOSKELETAL: Extremities without clubbing, cyanosis, or edema. NEUROLOGICAL: Awake and alert. Oriented to place, person. No focal neuro deficit. Moves all extremities. Normal speech. Procedures 11/14/16 hemodialysis catheter placement, right internal jugular 12/14 PD cath placement A/P Problem List: (1) Renal failure ICD Code: N19 - Unspecified kidney failure Status: Acute (2) Sepsis ICD Code: A41.9 - Sepsis, unspecified organism Status: Acute (3) UTI (urinary tract infection) ICD Code: N39.0 - Urinary tract infection, site not specified (4) Chronic kidney disease, stage V ICD Code: N18.5 - Chronic kidney disease, stage 5 (5) HIV (human immunodeficiency virus infection) ICD Code: B20 - Human immunodeficiency virus [HIV] disease (6) Anemia ICD Code: D64.9 - Anemia, unspecified (7) Hypertension ICD Code: I10 - Essential (primary) hypertension (8) Medical non-compliance ICD Code: Z91.19 - Patient's noncompliance with other medical treatment and regimen Assessment and Plan 51 yo male with PMHX of HIV who follows with Dr. Samuels as outpatient last seen 6 months ago who admits to being noncompliant with his HIV medications for the past 2 months and presents to [facility] ED with complaints of severe buttock pain secondary to multiple buttock and perirectal wounds for the past two months. AIDS MAC/ CMV infection FUO Fevers Possible CMV retinitis - noncompliant with HAART for the last 2 months. - Continue Biaxin, Ethambutol, Rifampin per infectious disease. Will continue meds as outpatient - Gallium scan negative/ repeated blood cultures negative. - Continue prednisone. - ID following, fevers likely due to AFB and blood cultures, likely LULU. - Continue fluconazole 400 mg every 24 hours - Patient with end-stage AIDS, palliative consulted for further recommendations. - No evidence of ethambutol toxicity per ophthalmology evaluation - Afebrile 2 days. - Spoke with infectious disease mary Mtz to [facility]. Patient will need to be on LULU antibiotics, fluconazole, and prednisone. He will need to follow-up with Dr. Paul in an outpatient. Will not start HAART medication, this will be evaluated by Dr. Paul. - Discuss with patient not to start HIV meds, and compliance with ABX , antifungal, and other meds. Neutropenia - neupogen shot given, last dose 01/02 WBC 11.4 - 01/16/17 - Hematology following likely bone marrow suppression with uncontrolled AIDS and disseminated MAC infection, thrombocytopenia and anemia - ? Valcyte cause Acute renal failure superimposed on chronic kidney disease stage V: Nephrology following, remains non-oliguric. SPEP, serology negative. - Creatinine not improving, per Nephro if no improvement a renal biopsy will be done. - Hemodialysis per nephrology. HD TTHS - Vas-cath to be changed to Permacath due to poor flow - Renal biopsy FSGS, with 2 out of 7 glomeruli sclerosis - Limited options secondary to HIV, AIDS - Outpatient hemodialysis arranged. HIV/AIDS: CD4 count less than 20. Patient admitted to being noncompliant with HAART meds for the last 2 months. - He has been counseled. Verbalized understanding DVT prophylaxis: Heparin. Full code Discussed with patient, nursing, Dr. Cordero Discharge Planning Patient will be [place] home today. Will Refer to Dr. Paul. Continue with Medications as per ID. CM following. Problem Qualifiers (1) Renal failure: (2) Sepsis: (3) Anemia: Pari Taofya [facility] Jan 18, 2017 13:47
[2017-01-18] MEDS ORDERED: Ethambutol PO (14:08)
[2017-01-18] MEDS ORDERED: PRED20 PO (14:08)
[2017-01-18] MEDS ORDERED: CLAR500T PO (14:08)
[2017-01-18] MEDS ORDERED: AMLO10 PO (14:08)
[2017-01-18] MEDS ORDERED: RIFA150C2 PO (14:08)
[2017-01-18] MEDS ORDERED: LACT PO (14:08)
[2017-01-18] MEDS ORDERED: DIFL100T PO (14:08)
--- NOTE | 2017-01-18 14:52 | HHI.HCPN ---
Reason for visit a. To assist with evaluation and management of symptoms including: malnutrition, weakness b. To assist medical decision maker(s) with: better understanding of current medical conditions; weighing benefits/burdens of medical treatment options; making medical treatment decisions. (Keily Ackerman) Subjective/Interval History Pt seen today to follow up on comfort, goals. ID, Nephro following. Post hemodialysis yesterday. BC positive for from 01/14 likely contaminant per ID. patient continued on Biaxin, EMB, Rifampin, Diflucan , prednisone. Recommends continued PT. No fever since 01/16. Discharge planning for possibly today. Patient may require home health. Still with poor appetite eating about 50% of most meals past couple of days. Patient seen in room no visitors present. He is looking forward to getting discharged and being out of hospital setting. He feels he will be able to manage things on his own at home. He wishes to continue to try to improve his nutrition and physical strength. Goals remain aggressive. Explore designation of healthcare surrogate he indicates he is not ready to designate anyone yet though will continue to talk with family/friends regarding. Explore with him mood status, mental health related to prolonged hospitalization and chronic illness state. He indicates that he stopped taking his meds for 2 months because he was somewhat overwhelmed and "tired of "dealing with everything. He indicates he has been dealing with his HIV status for 20 years and got sick of the appointments, the medications etc. though he is now seen what the consequences of that are. Gently explore with him antidepressant to assist with mood stabilization, advised he could discuss further with his primary care outpatient if he desired. He does not want me to update any family/friends for him. . (Keily Ackerman) Advance Directives Living Will: Never completed Health Care Surrogate: Never completed Durable Power of Quality Control Clerk: Never completed (Keily Ackerman) Objective Vital Signs Date Time Temp Pulse Resp B/P (MAP) Pulse Ox O2 Delivery O2 Flow Rate FiO2 01/18/17 13:46 Room Air 01/18/17 12:07 Room Air 01/18/17 12:00 97.3 71 16 150/92 (111) 100 01/18/17 11:10 58 01/18/17 09:20 Room Air 01/18/17 08:00 97.0 70 16 151/106 (121) 100 01/18/17 04:00 98.3 70 16 159/107 (124) 99 01/18/17 04:00 Room Air 01/18/17 00:00 Room Air 01/18/17 00:00 99.1 76 16 161/104 (123) 99 01/17/17 20:00 99.3 88 16 151/95 (113) 99 01/17/17 20:00 Room Air 01/17/17 20:00 87 01/17/17 16:06 99.8 96 17 136/84 (101) 100 Intake & Output 01/18/17 01/18/17 07:00 19:00 Output Total 450 ml Balance -450 ml Output Urine Total 450 ml # Bowel Movements 1 Physical Exam CONSTITUTIONAL/GENERAL: This is a frail, thin young man TUBES/LINES/DRAINS: Peripheral IV left upper extremity, dialysis access right chest SKIN: No jaundice, rashes, or lesions. No wounds seen anteriorly-did not visualize but patient reports wounds to perirectal have resolved. Skin temperature warm. Not diaphoretic. CARDIOVASCULAR: Regular rate and rhythm without murmurs. No JVD. Feet are cool to the touch, peripheral pulses faint RESPIRATORY/CHEST: Symmetric, unlabored respirations. On room air Clear to auscultation. Breath sounds equal bilaterally. GASTROINTESTINAL: Abdomen soft, flat, non-tender, nondistended. No hepato- splenomegaly, or palpable masses. No guarding. Bowel sounds present. NEUROLOGICAL: Awake and alert. Oriented 3. Appropriate. Appears to have reasonable insight. Voice very quiet, soft-spoken. Follows commands. Cognitively sharp. Moves all extremities. PSYCHIATRIC: No obvious anxiety/depression. no apparent hallucinations or other psychotic thought process. (Keily Ackerman) Diagnostic Tests Laboratory Laboratory Tests Test 01/16/17 05:45 White Blood Count 11.4 TH/MM3 (4.0-11.0) Red Blood Count 3.25 MIL/MM3 (4.50-5.90) Hemoglobin 8.7 GM/DL (13.0-17.0) Hematocrit 27.7 % (39.0-51.0) Mean Corpuscular Volume 85.2 FL (80.0-100.0) Mean Corpuscular Hemoglobin 26.9 PG (27.0-34.0) Mean Corpuscular Hemoglobin Concent 31.6 % (32.0-36.0) Red Cell Distribution Width 19.3 % (11.6-17.2) Platelet Count 102 TH/MM3 (150-450) Mean Platelet Volume 9.2 FL (7.0-11.0) CBC Comment AUTO DIFF Differential Total Cells Counted 100 Neutrophils % (Manual) 56 % (16-70) Band Neutrophils % 10 % (0-6) Lymphocytes % 7 % (9-44) Monocytes % 20 % (0-8) Neutrophils # (Manual) 8.3 TH/MM3 (1.8-7.7) Metamyelocytes 3 % (0-1) Myelocytes 3 % (0-0) Promyelocytes 1 % (0-0) Differential Comment FINAL DIFF MANUAL Platelet Estimate LOW (NORMAL) Platelet Morphology Comment NORMAL (NORMAL) Ovalocytes 1+ (NORMAL) (Keily Ackerman BENCH ASSEMBLY INSPECTOR) Result Diagram: 01/16/17 0545 01/15/17 1211 Imaging Last Impressions Chest X-Ray 01/14/17 0000 Signed Impressions: Service Date/Time: Saturday, January 14, 2017 21:41 - CONCLUSION: 1. Mild basilar density, probably dependent atelectasis or mild infiltrate. No effusion. No pneumothorax. Denzel Potter MD Brain MRI 01/11/17 0000 Signed Impressions: Service Date/Time: Wednesday, January 11, 2017 16:20 - CONCLUSION: Questionable minimal transependymal migration of CSF adjacent to the lateral ventricles. Otherwise normal. Juve Hsu MD Gallium Scan Nuclear Medicine 12/19/16 0000 Signed Impressions: Service Date/Time: Monday, December 19, 2016 13:19 - CONCLUSION: Negative for occult inflammatory process. Enzo Isbell MD FACR Upper Extremity Ultrasound 12/07/16 0000 Signed Impressions: Service Date/Time: Wednesday, December 07, 2016 10:11 - CONCLUSION: Venous mapping as above. Enzo Isbell MD FACR Renal Biopsy CT 12/01/16 0600 Signed Impressions: Service Date/Time: November 14:17 - CONCLUSION: Uncomplicated CT guided biopsy. Alexis Adhikari MD Central Venous Line 11/29/16 0000 Signed Impressions: Service Date/Time: Tuesday, November 29, 2016 00:00 - CONCLUSION: Uncomplicated catheter removal. Solitario Diaz MD Catheter Placement X-Ray 11/29/16 0000 Signed Impressions: Service Date/Time: Tuesday, November 29, 2016 13:58 - CONCLUSION: Uncomplicated PermaCath placement as above. Solitario Diaz MD Tumor Localization 11/14/16 0000 Signed Impressions: Service Date/Time: Monday, November 14, 2016 11:38 - CONCLUSION: Negative scan Solitario Diaz MD Renal Ultrasound 11/05/16 0000 Signed Impressions: Service Date/Time: Saturday, November 05, 2016 19:17 - CONCLUSION: Diffusely echogenic kidneys indicating medical renal disease. Dorian Murry MD Abdomen/Pelvis CT 11/05/16 0000 Signed Impressions: Service Date/Time: Saturday, November 05, 2016 17:19 - CONCLUSION: 1. 4 mm calculus in the right renal pelvis/ureteropelvic junction with mild adjacent perinephric/periureteral stranding. No evidence of hydronephrosis. 2. 1 cm round hypodensity in the anterior right mid kidney statistically most likely to represent a cyst. 3. 3.7 cm hypodensity in the right lobe of the liver air the dome of the diaphragm. This finding is nonspecific on noncontrast CT. The most likely etiologies include hemangioma and cyst. It could be further evaluated with ultrasound nonemergent followup MRI of the abdomen. 4. Mild dilated proximal right common iliac artery. Dorian Murry MD Procedures 11/14/16 right IJ hemodialysis catheter placement IR 11/29 new Hemodialysis catheter right IJ 12/01 CT-guided needle biopsy right kidney 12/14 laparoscopic-assisted peritoneal dialysis catheter with ([facility]) Assessment and Plan Disease Oriented Problem List: (1) Open wound of scrotum (2) Anemia (3) UTI (urinary tract infection) (4) Hypertension (5) HIV (human immunodeficiency virus infection) (6) Chronic kidney disease, stage V (7) Medical non-compliance (8) Retinitis of left eye due to cytomegalovirus (9) Thrombocytopenia (10) Severe neutropenia (11) Normocytic anemia Symptom Scale: (1) Anorexia (2) Malnutrition (3) Pain Comment: Resolved (4) Weakness Pertinent Non-Medical Issues Psychosocial: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 Supported by partner. Not no children. Also supported by a niece and brother. Has lived in [place] for about 15 years, originally from [place]. Spiritual:No particular amish affiliation does not want representative personal service support Legal:Patient currently capacitated and able to make his own decisions. Discussion of health care surrogate designation with him he is considering designating his significant other Corbin Scott however wishes to talk to his family/support before making designation. Ethical issues impacting care: No ethical issues identified Important Contacts Alexis Hu brother [phone] Friend/ Partner Mr. Corbin Scott [phone] . Prognosis This patient initially presented to the ED for chronic wounds with perirectal area. He was admitted for further evaluation and management of sepsis, acute renal insufficiency. 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 He is also now hemodialysis dependent with no improvement in his renal function. CD4 count 3. May survive current acute illness with ongoing aggressive measures however high risk for ongoing complications and decline. Appropriate for hospice and comfort treatment only if goals compatible. Code Status: Full Code Plan * Legal decision maker:Patient currently capacitated and able to make his own decisions. Discussion of health care surrogate designation with him he is considering designating his significant other Corbin Scott however wishes to talk to his family/support before making designation. Again offered to assist him to complete HCS today 01/18 he declines. * Goals: Currently goals are aggressive. Patient appears to still be processing overall prognosis and advanced conditions. I have extensively reviewed with him overall prognosis and possible trajectories going forward as well as options of continued aggressive management versus transition to hospice and comfort focus only. He wants to try to get home and improve his strength and nutrition. Does not wish to complete healthcare surrogate designation at this time. * CODE STATUS: FULL CODE * SYMPTOMS: --malnutrition- frequently refuses PO. Albumin 2.5. Eating 0-15% of meals most days per records, rarely eats 50-75-100%. Has lost approx 10 kg (22 lb) since admission 2.5 mos ago. Patient describes not liking the food here, he indicates he would be better if it was food that he likes denies nausea or GI complaints --fever- unk etiology-- ? ES AIDs, renal failure-- ID cont to follow, ongoing fevers despite neg cultures, ongoing abx--cultures today from 01/14 preliminary positive gram-positive cocci(likely contaminant per ID) continued on antibiotics no fever since 01/16 --Anorexia-poor appetite during entire hospitalization. Very little oral intake. GI complaints. Could consider appetite stimulant which may offer some improvement. Likely this is secondary to disease progression, prolonged hospitalization, may also have some component of depression from chronic disease , prolonged hospitalization --Weakness-patient debilitated, 72 days in the hospital, poor oral intake. Working with physical therapy. May require rehabilitation or at the least home health upon discharge from the hospital setting. Patient indicates he feels comfortable going home, caring for himself at home. * Palliative care will continue to follow during hospital course as condition evolves, to assist patient/decision-maker with understanding of medical conditions, weighing benefits/burdens of treatment options, for clarification of goals of treatment. Additionally will assist with any symptoms of palliative concern (Keily Ackerman) Time Spent Total Floor Time (mins): 20 (Keily Ackerman) Attestation To help prompt me to consider important information that might be impacting today's encounter and assessment, information from prior notes written by myself or my colleagues may have been "brought forward" into today's note. My signature on this note, however, is an attestation that I personally performed the exam, history, and/or decision-making noted today, and, unless otherwise indicated, the interactions with patient, family, and staff as well as the review of records all occurred today. I also attest that the listed assessment and stated plan reflect my best clinical judgment today based on the combination of historical information, prior notes, and today's exam/ interactions. When time spent is documented, it refers only to time spent today by the signer, or if indicated, combined time spent today by collaborating physician/nurse practitioner. (Keily Ackerman) Collaborating MD Comments Chart reviewed. Case discussed with palliative care BENCH ASSEMBLY INSPECTOR. Above note reviewed and I concur. . (Messi Sims MD) Keily Ackerman Jan 18, 2017 14:52 Messi Sims MD Jan 19, 2017 17:24
--- NOTE | 2017-01-18 17:15 | HHI.DS ---
Discharge Summary Admission Date Nov 05, 2016 at 15:57 Discharge Date: Jan 18, 2017 Admitting Diagnosis sepsis, renal failure (1) Renal failure ICD Code: N19 - Unspecified kidney failure Status: Acute (2) Sepsis ICD Code: A41.9 - Sepsis, unspecified organism Status: Acute (3) UTI (urinary tract infection) ICD Code: N39.0 - Urinary tract infection, site not specified (4) Chronic kidney disease, stage V ICD Code: N18.5 - Chronic kidney disease, stage 5 (5) HIV (human immunodeficiency virus infection) ICD Code: B20 - Human immunodeficiency virus [HIV] disease (6) Anemia ICD Code: D64.9 - Anemia, unspecified (7) Hypertension ICD Code: I10 - Essential (primary) hypertension (8) Medical non-compliance ICD Code: Z91.19 - Patient's noncompliance with other medical treatment and regimen Procedures 11/14/16 hemodialysis catheter placement, right internal jugular 12/14 PD cath placement Brief History - From Admission This is a 50yo male with PMHX of HIV who follows with Dr. Samuels as outpatient last seen 6 months ago who admits to being noncompliant with his HIV medications for the past 2 months and presents to [facility] ED with complaints of severe buttock pain secondary to multiple buttocks and perirectal wounds for the past two months. Patient denies seeking any previous treatment. Patient is not the best historian. He denies any worsening of the wounds. When asked why he chose to come in today, patient states he was "just tired of it". He admits to decreased oral intake. He also reports low back pain yesterday that he thought might be attributable to another kidney stone. He denies any back pain presently. He endorses nausea with nonbilious, nonbloody emesis for the past 2-3 days. He denies any fevers but reports one episode of chills. He denies any chest pain or SOB. He denies any previous history of kidney problems. He denies any hematuria, dysuria, hesitancy, slow stream or incomplete emptying. He reports urinating 3 to 4 x during the day and the same at night. In the ED, he has a temp of 100.6. White count is normal. Lactic acid is 0.8. His creatinine is extremely elevated at 7.83. CBC/BMP: 01/16/17 0545 01/15/17 1211 Significant Findings Laboratory Tests Test 01/16/17 05:45 White Blood Count 11.4 TH/MM3 (4.0-11.0) Red Blood Count 3.25 MIL/MM3 (4.50-5.90) Hemoglobin 8.7 GM/DL (13.0-17.0) Hematocrit 27.7 % (39.0-51.0) Mean Corpuscular Hemoglobin 26.9 PG (27.0-34.0) Mean Corpuscular Hemoglobin Concent 31.6 % (32.0-36.0) Red Cell Distribution Width 19.3 % (11.6-17.2) Platelet Count 102 TH/MM3 (150-450) Band Neutrophils % 10 % (0-6) Lymphocytes % 7 % (9-44) Monocytes % 20 % (0-8) Neutrophils # (Manual) 8.3 TH/MM3 (1.8-7.7) Metamyelocytes 3 % (0-1) Myelocytes 3 % (0-0) Promyelocytes 1 % (0-0) Platelet Estimate LOW (NORMAL) Ovalocytes 1+ (NORMAL) PE at Discharge GENERAL: This is a well-nourished, well-developed patient, in no apparent distress. SKIN: Warm and dry. Dee Anal area wound healing, dry, pink discoloration. HEENT: Normocephalic. Pupils equal round and reactive. Nose without bleeding. Airway patent. NECK: Trachea midline. Right SC Perma-Cath CARDIOVASCULAR: Regular rate and rhythm without murmurs, gallops, or rubs. RESPIRATORY: Diminished bases. No wheezes, rales, or rhonchi. GASTROINTESTINAL: Abdomen soft, non-tender, nondistended. Bowel Sounds normoactive x4. MUSCULOSKELETAL: Extremities without clubbing, cyanosis, or edema. NEUROLOGICAL: Awake and alert. Oriented to place, person. No focal neuro deficit. Moves all extremities. Normal speech. Hospital Course 51 yo male with PMHX of HIV who follows with Dr. Samuels as outpatient last seen 6 months ago who admits to being noncompliant with his HIV medications for the past 2 months and presents to [facility] ED with complaints of severe buttock pain secondary to multiple buttock and perirectal wounds for the past two months. AIDS MAC/ CMV infection FUO Fevers Possible CMV retinitis - noncompliant with HAART for the last 2 months. - Continue Biaxin, Ethambutol, Rifampin per infectious disease. Will continue meds as outpatient - Gallium scan negative/ repeated blood cultures negative. - Continue prednisone. - ID following, fevers likely due to AFB and blood cultures, likely LULU. - Continue fluconazole 400 mg every 24 hours - Patient with end-stage AIDS, palliative consulted for further recommendations. - No evidence of ethambutol toxicity per ophthalmology evaluation - Afebrile 2 days. - Spoke with infectious disease mary Mtz to [facility]. Patient will need to be on LULU antibiotics, fluconazole, and prednisone. He will need to follow-up with Dr. Paul in an outpatient. Neutropenia - neupogen shot given, last dose 01/02 WBC 11.4 - 01/16/17 - Hematology following likely bone marrow suppression with uncontrolled AIDS and disseminated MAC infection, thrombocytopenia and anemia - ? Valcyte cause Acute renal failure superimposed on chronic kidney disease stage V: Nephrology following, remains non-oliguric. SPEP, serology negative. - Creatinine not improving, per Nephro if no improvement a renal biopsy will be done. - Hemodialysis per nephrology. HD TTHS - Vas-cath to be changed to Permacath due to poor flow - Renal biopsy FSGS, with 2 out of 7 glomeruli sclerosis - Limited options secondary to HIV, AIDS - Outpatient hemodialysis arranged. HIV/AIDS: CD4 count less than 20. Patient admitted to being noncompliant with HAART meds for the last 2 months. - He has been counseled. Verbalized understanding Pt Condition on Discharge: Stable Discharge Disposition: Discharge Home Discharge Time: > 30 minutes Discharge Instructions Follow up Referrals: Infectious Disease - 1 Week with Alda Paul MD PCP Follow-up - 1 Week New Medications: Walker Rolling/GetGo (Walker Rolling/GetGo) 1 Mis Mis EA .ROUTE DIRECTED, #1 Amlodipine (Norvasc) 10 Mg Tab 10 MG PO DAILY for Blood Pressure Management, #30 TAB Clarithromycin (Clarithromycin) 500 Mg Tab 500 MG PO Q12HR for Infection, #60 TAB Fluconazole (Diflucan) 100 Mg Tab 100 MG PO Q24H for Infection, #30 TAB Lactobacillus Acidophilus (Acidophilus/l-Sporogenes) 35 Million Cell-25 Million Cell Tab 1 TAB PO Q12HR for Nutritional Supplement, #60 TAB Prednisone (Prednisone) 20 Mg Tab 40 MG PO DAILY for Immunosuppression, #30 TAB Rifampin (Rifampin) 150 Mg Cap 300 MG PO Q12HR for Infection, #60 CAP [Ethambutol] () 400 MG TAB 800 MG PO DAILY for Infection, #30 TAB Maggy Cordero MD Jan 18, 2017 17:15
--- NOTE | 2017-01-18 17:21 | HHI.NPPN ---
Subjective History of Present Illness 50-year-old male with past medical history of HIV disease for more than 20 years and history of renal stone who came to the hospital with complaint of back pain. The patient has back pain going on for the last 2 months off and on and he came to the emergency department yesterday with worsening pain. Additional Remarks Patient is alert, no SOB, no abd. pain, doing better, now remain afebrile, feeling better. Review of Systems General Constitutional: Fatigue Cardiovascular Cardiac: MIRZA Objective Data Data Vital Signs Date Time Temp Pulse Resp B/P (MAP) Pulse Ox O2 Delivery O2 Flow Rate FiO2 01/18/17 16:00 97.3 70 18 157/94 (115) 100 01/18/17 13:46 Room Air 01/18/17 12:07 Room Air 01/18/17 12:00 97.3 71 16 150/92 (111) 100 01/18/17 11:10 58 01/18/17 09:20 Room Air 01/18/17 08:00 97.0 70 16 151/106 (121) 100 01/18/17 04:00 98.3 70 16 159/107 (124) 99 01/18/17 04:00 Room Air 01/18/17 00:00 Room Air 01/18/17 00:00 99.1 76 16 161/104 (123) 99 01/17/17 20:00 99.3 88 16 151/95 (113) 99 01/17/17 20:00 Room Air 01/17/17 20:00 87 -: 01/16/17 0545 01/15/17 1211 Physical Exam General Appearance: No Acute Distress, Comfortable Eyes Eye Exam: Pupils Equal Throat Throat Exam: Oral Mucosa [place] & Moist Pulmonary Resp Exam: Breath Sounds Equal, No Distress, Rhonchi, Decreased Bases Cardiology CV Exam: Regular, Normal Sinus Rhythm Gastrointestinal/Abdomen GI Exam: Soft, Non-Tender, Bowel Sounds Present Extremeties Extremities Exam: No Edema Neurologic Neuro Exam: Alert, Awake, Oriented Psychiatric Psych Exam: Appropriate Responses Assessment/Plan Assessment Summary: MIKE/Acute Renal Failure Problem List: (1) Renal failure ICD Codes: N19 - Unspecified kidney failure Status: Acute (2) Sepsis ICD Codes: A41.9 - Sepsis, unspecified organism Status: Acute (3) Open wound of scrotum ICD Codes: S31.30XA - Unspecified open wound of scrotum and testes, initial encounter Status: Acute Plan c/o blurry vision left eye Remain non oliguric. SPEP was negative. Complements normal, other serology also negative. BP is better, on Metoprolol to 50 mg BID. If renal function will not improve, will consider Renal Biopsy once infection is controlled. Fever pattern is better, ID is following. Now on Bactrim, Acyclovir, Clarithromycin and Ethambutol. No improvement in renal function. Possibly has End stage renal disease. Got PermCath. 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 No need to repeat the renal Biopsy as clinically he is showing no improvement, and the with advance HIV , the treatment options are limited, cannot be given immunosuppressive drugs. He understand increase risk of infection due to advance HIV. Has PD catheter done. Now on Valganciclovir, ID following. Gallium scan is negative. HD to continue TTS. On Epogen , follow Hgb. On Diflucan along with antibiotics for LULU. If remain afebrile, possible D/C. HD will be in AM. Problem Qualifiers (1) Renal failure: (2) Sepsis: wKadwo Shah MD Jan 18, 2017 17:21
--- NOTE | 2017-01-18 22:13 | PD.ONC.PN ---
Subjective Subjective Remarks awake and alert feels weak no bleeding no fevers getting HD per nephrology tomorrow Objective Data Date Time Temp Pulse Resp B/P (MAP) Pulse Ox O2 Delivery O2 Flow Rate FiO2 01/18/17 21:31 97.8 74 16 130/88 (102) 100 01/18/17 20:39 Room Air 01/18/17 16:00 97.3 70 18 157/94 (115) 100 01/18/17 13:46 Room Air 01/18/17 12:07 Room Air 01/18/17 12:00 97.3 71 16 150/92 (111) 100 01/18/17 11:10 58 01/18/17 09:20 Room Air 01/18/17 08:00 97.0 70 16 151/106 (121) 100 01/18/17 04:00 98.3 70 16 159/107 (124) 99 01/18/17 04:00 Room Air 01/18/17 00:00 Room Air 01/18/17 00:00 99.1 76 16 161/104 (123) 99 01/18/17 01/18/17 01/18/17 07:00 15:00 23:00 Output Total 450 ml 400 ml Balance -450 ml -400 ml Result Diagram: 01/16/17 0545 01/15/17 1211 Administered Medications Medications (Trade) Dose Ordered Sig/Nyla Route PRN Reason Start Time Stop Time Status Last Admin Dose Admin Acetaminophen (Tylenol) 650 mg Q4H PRN PO TEMP > 100.4 11/05/16 16:15 01/16/17 08:55 Ondansetron HCl (Zofran Inj) 4 mg Q6H PRN IVP NAUSEA OR VOMITING 11/05/16 16:15 01/06/17 19:42 Heparin Sodium (Porcine) (Heparin Inj) 5,000 units Q12H SQ 11/05/16 17:00 Future Hold 12/08/16 18:16 Senna/Docusate Sodium (Dee-Colace) 1 tab BID PO 11/05/16 21:00 01/12/17 19:57 Sodium Chloride 1,000 ml @ 0 mls/hr Q0M PRN IV For Prime & Rinse Back 11/13/16 17:02 01/03/17 11:10 Heparin Sodium (Porcine) (Heparin Inj) 8,000 units UNSCH PRN IVF WITH DIALYSIS 11/13/16 17:15 12/31/16 09:59 Albumin Human (Albumin 25% Inj) 25 gm UNSCH PRN IV WITH DIALYSIS 11/13/16 17:15 12/31/16 09:58 Sodium Chloride (NS Flush) 5 ml UNSCH PRN IV FLUSH WITH DIALYSIS 11/13/16 17:15 12/17/16 10:57 Heparin Sodium (Porcine) (Heparin Inj) UNSCH PRN .XX WITH DIALYSIS 11/13/16 17:15 01/17/17 10:45 Gentamicin Sulfate (Gentamicin (Dialysis) Inj) 20 mg UNSCH PRN IV WITH DIALYSIS 11/13/16 17:15 01/17/17 10:45 Ondansetron HCl (Zofran Inj) 4 mg UNSCH PRN IV WITH DIALYSIS 11/13/16 17:15 12/09/16 20:25 Acetaminophen (Tylenol) 650 mg UNSCH PRN PO for headach, pain, temp > 101F 11/13/16 17:15 01/03/17 21:57 Diphenhydramine HCl (Benadryl) 25 mg UNSCH PRN PO for hives/itching/anaphylaxis 11/13/16 17:15 01/13/17 03:43 Clonidine (Catapres) 0.1 mg UNSCH PRN PO for BP > 170/100 X 2 readings 11/13/16 17:15 01/18/17 06:39 Metoprolol Tartrate (Lopressor) 50 mg Q12HR PO 11/16/16 21:00 Future Hold 12/02/16 08:53 Clarithromycin (Biaxin) 500 mg Q12HR PO 11/21/16 21:00 01/18/17 20:37 Heparin Sodium (Porcine) (Heparin Inj) UNSCH PRN IV FLUSH SEE PROTOCOL 11/29/16 18:15 12/06/16 10:15 Lactobacillus Acidophilus (Lactinex) 1 tab Q12HR PO 12/02/16 10:00 01/18/17 20:37 Ethambutol HCl (Myambutol) 800 mg DAILY PO 12/04/16 09:00 01/18/17 08:40 Epoetin Abel (Epogen Inj) 10,000 units UNSCH PRN IV WITH DIALYSIS 9/12/17 09:30 01/17/17 10:45 Rifampin (Rifampin) 300 mg Q12HR PO 12/09/16 21:00 01/18/17 20:37 Sodium Chloride (NS Flush) 2 ml BID IV FLUSH 12/14/16 21:00 01/17/17 14:00 Potassium Chloride/Sodium Chloride 1,000 ml @ 42 mls/hr [id number] IV 01/09/17 15:00 01/18/17 13:45 Prednisone (Deltasone) 40 mg DAILY PO 01/16/17 10:00 01/18/17 08:41 Fluconazole (Diflucan) 100 mg Q24H PO 01/16/17 11:00 01/18/17 11:23 Amlodipine Besylate (Norvasc) 10 mg DAILY PO 01/18/17 13:15 01/18/17 15:10 Objective Remarks GENERAL: weak/cachectic SKIN: Warm and dry NECK: Supple, trachea midline. No JVD or lymphadenopathy. LYMPHATIC: No adenopathy. CARDIOVASCULAR: Regular rate and rhythm without murmurs. RESPIRATORY: Breath sounds equal bilaterally. No accessory muscle use. GASTROINTESTINAL: Abdomen soft, non-tender, nondistended. EXTREMITIES: No cyanosis, or edema. Assessment/Plan Problem List: (1) Sepsis ICD Codes: A41.9 - Sepsis, unspecified organism Status: Acute Plan: --on multiple antibiotics including Rifampin, Biaxin, ethambutol --has been having fever of unknown origin and infectious workup is ongoing. (2) Thrombocytopenia ICD Codes: D69.6 - Thrombocytopenia, unspecified Plan: --likely multifactorial d/t sepsis, drug effect, DIC, bone marrow suppression. (3) Normocytic anemia ICD Codes: D64.9 - Anemia, unspecified Plan: --likely due to bone marrow suppression with uncontrolled AIDS and disseminated MAC infection. 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 +disseminated MAC infection, acute renal failure and CMV retinitis. --has developed end-stage renal disease and is currently getting peritoneal dialysis. Plan 1. Anemia noted--stable--no blood products today 2. continue supportive care 3. Leukopenia resolved Problem Qualifiers (1) Sepsis: Chandra Parks MD Jan 18, 2017 22:13
[2017-01-19 00:43] VITALS: BP 147/90; PULSE 73; RESP 18; TEMP 97.6
[2017-01-19 04:00] VITALS: BP 140/70; PULSE 85; RESP 18; TEMP 98
[2017-01-19] MEDS ORDERED: HYDR-3516 PO (07:49)
[2017-01-19 08:00] VITALS: BP 156/98; PULSE 63; RESP 18; TEMP 97.2; O2SAT 100
[2017-01-19] MEDS: SODIUM CHLORIDE 0.9% FLUSH 10 ML FLUSH IV FLUSH SCH (08:31)
[2017-01-19] MEDS: LACTOBACILLUS ACIDOPHILUS TAB PO SCH (08:32)
[2017-01-19] MEDS: CLARITHROMYCIN 500 MG TAB PO SCH (08:32)
[2017-01-19] MEDS: ETHAMBUTOL HCL 400 MG TAB PO SCH (08:33)
[2017-01-19] MEDS: RIFAMPIN 150 MG CAP PO SCH (08:33)
[2017-01-19] MEDS: predniSONE 20 MG TAB PO SCH (08:33)
[2017-01-19] MEDS: DOCUSATE SODIUM 50 MG/SENNA 8.6 MG TAB PO SCH (08:38)
[2017-01-19 09:04] LABS: BICARBONATE 23.9 MEQ/L (21.0-32.0); POTASSIUM 5.5 MEQ/L (3.5-5.1)
[2017-01-19 09:21] VITALS: PULSE 60
--- NOTE | 2017-01-19 10:21 | HHI.DCPOC ---
Discharge Care Plan Diagnosis: (1) HIV (human immunodeficiency virus infection) (2) Weakness (3) Malnutrition (4) Chronic kidney disease, stage V Your Health Problems Are: Difficulty with ADL Skin Breakdown Appetite Changes Exercise Tolerance Weight Loss Goals to Promote Your Health * To prevent worsening of your condition and complications * To maintain your health at the optimal level Directions to Meet Your Goals Take your medications as prescribed Follow your dietary instruction Follow activity as directed Keep your appointments as scheduled Take your immunizations and boosters as scheduled If your symptoms worsen call your PCP, if no PCP go to Urgent Care Center or Emergency Room Smoking is Dangerous to Your Health. Avoid second hand smoke Call the 24-hour hour crisis hotline for domestic abuse at [facility] Jan 19, 2017 10:21 am
[2017-01-19] MEDS: HEPARIN SODIUM - IV 10,000 UNITS/10 ML VIAL PRN (12:02)
[2017-01-19] MEDS: GENTAMICIN SULFATE (DIALYSIS USE ONLY) 20 MG/2 ML VIAL IV PRN (12:02)
[2017-01-19] MEDS: EPOETIN ALFA 10,000 UNITS/ML VIAL IV PRN (12:04)
[2017-01-19] MEDS: NS + KCL 20 MEQ INJ 1,000 ML IV SCH (13:10)
[2017-01-19] MEDS: FLUCONAZOLE 100 MG TAB PO SCH (13:46)
--- NOTE | 2017-01-19 17:23 | HHI.NPPN ---
Subjective History of Present Illness 50-year-old male with past medical history of HIV disease for more than 20 years and history of renal stone who came to the hospital with complaint of back pain. The patient has back pain going on for the last 2 months off and on and he came to the emergency department yesterday with worsening pain. Additional Remarks Patient is alert, no SOB, no abd. pain,seen during HD in AM. Review of Systems General Constitutional: Fatigue Cardiovascular Cardiac: MIRZA Objective Data Data 01/19/17 01/20/17 19:00 07:00 Output Total 1500 ml Balance -1500 ml Hemodialysis 1500 ml Vital Signs Date Time Temp Pulse Resp B/P (MAP) Pulse Ox O2 Delivery O2 Flow Rate FiO2 01/19/17 09:21 60 01/19/17 08:40 Room Air 01/19/17 08:00 97.2 63 18 156/98 (117) 100 01/19/17 04:00 98.0 85 18 140/70 (93) 01/19/17 00:43 97.6 73 18 147/90 (109) 01/18/17 21:31 97.8 74 16 130/88 (102) 100 01/18/17 20:39 Room Air 01/18/17 20:00 74 -: 01/16/17 0545 01/19/17 0742 Physical Exam General Appearance: No Acute Distress, Comfortable Eyes Eye Exam: Pupils Equal Throat Throat Exam: Oral Mucosa [place] & Moist Pulmonary Resp Exam: Breath Sounds Equal, No Distress, Rhonchi, Decreased Bases Cardiology CV Exam: Regular, Normal Sinus Rhythm Gastrointestinal/Abdomen GI Exam: Soft, Non-Tender, Bowel Sounds Present Extremeties Extremities Exam: No Edema Neurologic Neuro Exam: Alert, Awake, Oriented Psychiatric Psych Exam: Appropriate Responses Assessment/Plan Assessment Summary: MIKE/Acute Renal Failure Problem List: (1) Renal failure ICD Codes: N19 - Unspecified kidney failure Status: Acute (2) Sepsis ICD Codes: A41.9 - Sepsis, unspecified organism Status: Acute (3) Open wound of scrotum ICD Codes: S31.30XA - Unspecified open wound of scrotum and testes, initial encounter Status: Acute Plan c/o blurry vision left eye Remain non oliguric. SPEP was negative. Complements normal, other serology also negative. BP is better, on Metoprolol to 50 mg BID. If renal function will not improve, will consider Renal Biopsy once infection is controlled. Fever pattern is better, ID is following. Now on Bactrim, Acyclovir, Clarithromycin and Ethambutol. No improvement in renal function. Possibly has End stage renal disease. Got PermCath. 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 No need to repeat the renal Biopsy as clinically he is showing no improvement, and the with advance HIV , the treatment options are limited, cannot be given immunosuppressive drugs. He understand increase risk of infection due to advance HIV. Has PD catheter done. Now on Valganciclovir, ID following. Gallium scan is negative. HD to continue TTS. On Epogen , follow Hgb. On Diflucan along with antibiotics for LULU. Patient now for D/C. PD catheter checked, and 1 liter fluid infused, got all out, not cloudy. To continue HD and start PD Training. Problem Qualifiers (1) Renal failure: (2) Sepsis: Kwadwo Shah MD Jan 19, 2017 17:23
== END 2017-01-19 15:47 | disposition home or self-care (01) | DRG 969 ==
LOC: NEPD 12:57 → NEDA 15:57 → N04A 18:00
PROVIDERS: ADMIT Hospitalist; ATTEND Hospitalist
PROC: 30233N1 Transfusion of Nonautologous Red Blood Cells into Peripheral Vein, Percutaneous Approach (ICD-10-PCS; 2016-11-13)
PROC: 05HM33Z Insertion of Infusion Device into Right Internal Jugular Vein, Percutaneous Approach (ICD-10-PCS; 2016-11-14)
PROC: 5A1D70Z Performance of Urinary Filtration, Intermittent, Less than 6 Hours Per Day (ICD-10-PCS; 2016-11-14)
PROC: 0TB03ZX Excision of Right Kidney, Percutaneous Approach, Diagnostic (ICD-10-PCS; 2016-12-01)
PROC: 0WHG43Z Insertion of Infusion Device into Peritoneal Cavity, Percutaneous Endoscopic Approach (ICD-10-PCS; principal; 2016-12-14 08:56)
PROC: 05HM33Z Insertion of Infusion Device into Right Internal Jugular Vein, Percutaneous Approach (ICD-10-PCS; 2016-12-29)
DX: B20 Human immunodeficiency virus [HIV] disease (principal); A41.9 Sepsis, unspecified organism; N18.6 End stage renal disease; R65.20 Severe sepsis without septic shock; N17.9 Acute kidney failure, unspecified; D70.9 Neutropenia, unspecified; R64 Cachexia; J15.8 Pneumonia due to other specified bacteria; I12.0 Hypertensive chronic kidney disease with stage 5 chronic kidney disease or end stage renal disease; E46 Unspecified protein-calorie malnutrition; B37.0 Candidal stomatitis; B25.8 Other cytomegaloviral diseases; N39.0 Urinary tract infection, site not specified; H30.892 Other chorioretinal inflammations, left eye; E87.2 Acidosis; B00.89 Other herpesviral infection; L98.419 Non-pressure chronic ulcer of buttock with unspecified severity; R00.0 Tachycardia, unspecified; L98.499 Non-pressure chronic ulcer of skin of other sites with unspecified severity; N50.89 Other specified disorders of the male genital organs; H53.8 Other visual disturbances; Z23 Encounter for immunization; N20.0 Calculus of kidney; R19.7 Diarrhea, unspecified; D63.1 Anemia in chronic kidney disease; Z91.14 Patient's other noncompliance with medication regimen; Z91.19 Patient's noncompliance with other medical treatment and regimen; Z51.5 Encounter for palliative care; Z87.442 Personal history of urinary calculi
CPT/HCPCS: 36430; 36556; 36558; 36589; 50200; 70551; 71010; 71020; 74176; 76775; 76937; 77001; 77012; 78806; 80048; 80053; 80061; 80074; 80202; 81001; 82550; 82607; 82728; 82747; 83010; 83036; 83540; 83550; 83605; 83615; 83735; 84100; 84155; 84165; 84439; 84443; 85007; 85025; 85027; 85379; 85384; 85610; 85652; 85730; 86021; 86038; 86077; 86140; 86160; 86355; 86357; 86359; 86360; 86403; 86592; 86644; 86645; 86695; 86696; 86787; 86850; 86870; 86880; 86900; 86901; 86902; 86920; 86922; 87040; 87070; 87077; 87086; 87116; 87186; 87188; 87205; 87497; 87899; 87901; 90471; 90686; 90935; 93971; 96361; 96365; 96374; 96375; 99152; 99153; A9556; A9569; C1750; C1752; C1769; G0008; J0692; J0696; J1442; J1450; J1570; J1580; J1644; J1940; J2250; J2370; J2405; J2543; J2710; J3010; J3370; J3480; J7030; J7050; J7512; P9016; P9040; P9047; Q2038; Q4081

== ENCOUNTER 2017-02-22 13:25 | Observation (INO) | payer BC ==
[~2017-02-22] VITALS: Ht 177.8 cm; Wt 70.0 kg
[~2017-02-22 13:25] MED LIST changes: +AMLO10 PO; -CHLO.12%30 SSP; +CLAR500T PO; -CLIN150 PO; +DIFL100T PO; +Ethambutol PO; +GETGO ROLLING W1 MI1; +HYDR-3516 PO; +LACT PO; +PRED20 PO; +RIFA150C2 PO
[2017-02-22 13:27] VITALS: BP 140/70; PULSE 99; RESP 18; TEMP 97.8; O2SAT 99
[2017-02-22 14:28] LABS: AUTOMATED NEUTROPHIL # 6.3 TH/MM3 (1.8-7.7); BASOPHIL # 0.1 TH/MM3 (0-0.2); BASOPHIL % 0.7 % (0.0-2.0); LYMPH % 2.7 % (9.0-44.0); LYMPHOCYTE # 0.2 TH/MM3 (1.0-4.8); MEAN CELL VOLUME 87.3 FL (80.0-100.0); MEAN CORPUSCULAR HEMOGLOBIN 28.9 PG (27.0-34.0); MEAN CORPUSCULAR HGB CONC 33.2 % (32.0-36.0); MONO % 6.7 % (0.0-8.0); NEUT % 89.9 % (16.0-70.0); PLATELET COUNT 284 TH/MM3 (150-450); RED BLOOD COUNT 2.36 MIL/MM3 (4.50-5.90); RED CELL DISTRIBUTION WIDTH 23.2 % (11.6-17.2)
[2017-02-22 14:29] LABS: HEMO FLAGS AUTO DIFF
[2017-02-22 14:36] LABS: HEMATOCRIT 20.6 % (39.0-51.0)
[2017-02-22 14:58] LABS: BICARBONATE 22.2 MEQ/L (21.0-32.0)
[2017-02-22 15:27] LABS: BANDS 12 % (0-6); METAMYELOCYTES 1 % (0-1); NEUTROPHIL # MANUAL DIFF 6.1 TH/MM3 (1.8-7.7); POLYS (SEG NEUTROPHILS) 73 % (16-70); PROMYELOCYTES 1 % (0-0); WBC DIFF SAMPLE 100
[2017-02-22 15:30] LABS: PLATELET ESTIMATE SMEAR NORMAL (NORMAL); PLATELET MORPHOLOGY NORMAL (NORMAL); SCAN/DIFF FINAL DIFF MANUAL; TEARDROP RBCS 1+ (NORMAL); TOXIC GRANULATION 1+ (NORMAL)
[2017-02-22 16:18] LABS: POTASSIUM 3.4 MEQ/L (3.5-5.1)
--- NOTE | 2017-02-22 16:48 | PD ---
HPI Chief Complaint: Abnormal Results Time Seen by Provider: 16:24 Travel History International Travel<30 days: No Contact w/Intl Traveler<30days: No Traveled to known affect area: No History of Present Illness HPI 51-year-old male with PMH of ESRD, HIV, on nightly peritoneal dialysis at home presents to the ED for evaluation of abnormal result. The patient states that Dr. Shah's office called him today and told him that he needs to come to the emergency room for blood transfusion. On presentation the patient denies fever , chills, shortness of breath, chest pain, palpitations, abdominal pain, nausea , vomiting, weakness. He states that he performed peritoneal dialysis at home last night. He is unsure of his last CD4 or viral loads but states "they're low." He endorses compliance with his HIV medications. Patient is a poor historian. PFSH Past Medical History Anxiety: No Depression: No Cancer: No Cardiovascular Problems: No Endocrine: No Gastrointestinal Disorders: No Genitourinary: No Hypertension: Yes Immune Disorder: Yes (HIV ) Musculoskeletal: No Neurologic: No Psychiatric: No Reproductive: No Respiratory: No Renal Failure: Yes Tetanus Vaccination: < 5 Years Past Surgical History Other Surgery: No Social History Alcohol Use: No Tobacco Use: No Substance Use: No Allergies-Medications (Allergen,Severity, Reaction): Coded Allergies: No Known Allergies (Unverified Allergy, Unknown, 02/22/17) Reported Meds & Prescriptions Reported Meds & Active Scripts Active Hydrocodone-Acetaminophen 5-325 mg Tab 1 Tab PO Q4H Prednisone 20 Mg Tab 40 Mg PO DAILY Acidophilus/l-Sporogenes (Lactobacillus Acidophilus) 35 Million Cell-25 Million Cell Tab 1 Tab PO Q12HR Norvasc (Amlodipine Besylate) 10 Mg Tab 10 Mg PO DAILY Rifampin 150 Mg Cap 300 Mg PO Q12HR [Ethambutol] 400 MG Tab 800 Mg PO DAILY Diflucan (Fluconazole) 100 Mg Tab 100 Mg PO Q24H Clarithromycin 500 Mg Tab 500 Mg PO Q12HR Walker Rolling/GetGo (Device) 1 Mis Mis Ea .ROUTE DIRECTED Review of Systems Except as stated in HPI: all other systems reviewed are Neg Physical Exam Narrative GENERAL: Well-nourished, well-developed thin black male in no acute distress. SKIN: Focused skin assessment warm/dry. Dialysis port in the right chest. Peritoneal dialysis port in the low abdomen. Well-healed and without signs of infection. HEAD: Normocephalic. EYES: No scleral icterus. No injection or drainage. NECK: Supple, trachea midline. No JVD or lymphadenopathy. CARDIOVASCULAR: Regular rate and rhythm without murmurs, gallops, or rubs. RESPIRATORY: Breath sounds clear and equal bilaterally. No accessory muscle use. GASTROINTESTINAL: Abdomen soft, non-tender, nondistended. Active bowel sounds. MUSCULOSKELETAL: No cyanosis, or edema. BACK: Nontender without obvious deformity. No CVA tenderness. Data Data Last Documented VS Vital Signs Date Time Temp Pulse Resp B/P (MAP) Pulse Ox O2 Delivery O2 Flow Rate FiO2 02/22/17 18:20 98.0 94 20 132/71 (91) 99 02/22/17 13:27 Room Air Orders Orders Complete Blood Count With Diff (02/22/17 13:40) Basic Metabolic Panel (Bmp) (02/22/17 13:40) Type And Screen (02/22/17 13:40) Red Blood Cells Irradiated (02/22/17 14:00) Blood Product Administration (02/22/17 17:36) Diphenhydramine (Benadryl) (02/22/17 18:00) Acetaminophen (Tylenol) (02/22/17 18:00) Furosemide Inj (Lasix Inj) (02/22/17 18:00) Admit Order (Ed Use Only) (02/22/17 20:11) Labs Laboratory Tests Test 02/22/17 14:00 White Blood Count 7.0 TH/MM3 Red Blood Count 2.36 MIL/MM3 Hemoglobin 6.8 GM/DL Hematocrit 20.6 % Mean Corpuscular Volume 87.3 FL Mean Corpuscular Hemoglobin 28.9 PG Mean Corpuscular Hemoglobin Concent 33.2 % Red Cell Distribution Width 23.2 % Platelet Count 284 TH/MM3 Mean Platelet Volume 8.6 FL Neutrophils (%) (Auto) 89.9 % Lymphocytes (%) (Auto) 2.7 % Monocytes (%) (Auto) 6.7 % Eosinophils (%) (Auto) 0.0 % Basophils (%) (Auto) 0.7 % Neutrophils # (Auto) 6.3 TH/MM3 Lymphocytes # (Auto) 0.2 TH/MM3 Monocytes # (Auto) 0.5 TH/MM3 Eosinophils # (Auto) 0.0 TH/MM3 Basophils # (Auto) 0.1 TH/MM3 CBC Comment AUTO DIFF Differential Total Cells Counted 100 Neutrophils % (Manual) 73 % Band Neutrophils % 12 % Lymphocytes % 8 % Monocytes % 5 % Neutrophils # (Manual) 6.1 TH/MM3 Metamyelocytes 1 % Promyelocytes 1 % Differential Comment FINAL DIFF MANUAL Toxic Granulation 1+ Platelet Estimate NORMAL Platelet Morphology Comment NORMAL Tear Drop Cells 1+ Blood Urea Nitrogen 71 MG/DL Creatinine 6.51 MG/DL Random Glucose 85 MG/DL Calcium Level 8.8 MG/DL Sodium Level 135 MEQ/L Potassium Level 3.4 MEQ/L Chloride Level 101 MEQ/L Carbon Dioxide Level 22.2 MEQ/L Anion Gap 12 MEQ/L Estimat Glomerular Filtration Rate 11 ML/MIN MDM Medical Decision Making Medical Screen Exam Complete: Yes Emergency Medical Condition: Yes Differential Diagnosis Asymptomatic anemia versus ESRD versus HIV-related illness versus other Narrative Course 51-year-old male with PMH of ESRD, HIV, on nightly peritoneal dialysis at home presents to the ED for evaluation of abnormal result. The patient states that Dr. Shah's office called him today and told him that he needs to come to the emergency room for blood transfusion. On presentation the patient denies fever , chills, shortness of breath, chest pain, palpitations, abdominal pain, nausea , vomiting, weakness. He states that he performed peritoneal dialysis at home last night. He is unsure of his last CD4 or viral loads but states "they're low." He endorses compliance with his HIV medications. Patient is a poor historian. Vitals reviewed. Physical exam reveals a thin black male in no acute distress. PD and vascular access catheter present without signs of infection. Type and screen, [facility]. Due to patient's HIV the type and cross is expected to take many hours. I spoke with Dr. Jimenez who agrees to accept him to the medicine service for observation. Patient agreeable to this plan. Please see medicine notes for disposition. Yuliet Spence Feb 22, 2017 16:48
[2017-02-22] MEDS ORDERED: ACETAMINOPHEN 325 MG TAB PO ONE (18:00)
[2017-02-22] MEDS ORDERED: FUROSEMIDE 40 MG/4 ML VIAL IV PUSH ONE (18:00)
[2017-02-22] MEDS ORDERED: diphenhydrAMINE HCL 25 MG CAP PO ONE (18:00)
[2017-02-22 18:20] VITALS: BP 132/71; PULSE 94; RESP 20; TEMP 98; O2SAT 99
[2017-02-22] MEDS ORDERED: NALOXONE HCL 0.4 MG/ML AMP IV PUSH PRN (20:15)
[2017-02-22] MEDS ORDERED: SODIUM CHLORIDE 0.9% FLUSH 10 ML FLUSH IV FLUSH PRN (20:15)
[2017-02-22] MEDS: SODIUM CHLORIDE 0.9% FLUSH 10 ML FLUSH IV FLUSH SCH (21:00)
[2017-02-22 22:17] VITALS: BP 129/76; PULSE 97; RESP 18; TEMP 99.1; O2SAT 97
[2017-02-22 23:31] VITALS: BP 126/65; PULSE 100; RESP 20; TEMP 99.4; O2SAT 98
[2017-02-22 23:55] VITALS: BP 116/66; PULSE 98; RESP 18; TEMP 99.4; O2SAT 100
[2017-02-22 23:56] VITALS: BP 189/96; PULSE 62; RESP 18; TEMP 97.7; O2SAT 94
[2017-02-23] VITALS (12 sets, daily range): BP systolic 112–158; BP diastolic 64–92; PULSE 81–120; RESP 16–20; TEMP 97.8–102.9; O2SAT 96–100
[2017-02-23] MEDS ORDERED: FUROSEMIDE 40 MG/4 ML VIAL IV PUSH ONE
[2017-02-23] MEDS ORDERED: methylPREDNISolone SOD SUCC 125 MG/2 ML VIAL IV PUSH ONE (03:30)
[2017-02-23] MEDS ORDERED: diphenhydrAMINE HCL 50 MG CAP PO ONE (03:30)
[2017-02-23] MEDS ORDERED: ACETAMINOPHEN 325 MG TAB PO ONE (03:30)
--- NOTE | 2017-02-23 04:02 | HHI.HP ---
[facility] No Primary Care Physician Admission Diagnosis anemia, ESRD Diagnoses: (1) Anemia (2) End stage renal disease on dialysis Chief Complaint: "The nurse called me" to go to ER for abnormal lab value Travel History International Travel<30 Days: No Contact w/Intl Traveler <30 Da: No Traveled to Known Affected Are: No History of Present Illness Mr. Hu is a 51-year-old male with a history of HIV/AIDS, end-stage renal disease on peritoneal dialysis, and hypertension who presented to the emergency department on 02/22/2017 after receiving a call from [facility] [place] instructing him to go to the emergency room to receive a blood transfusion because of abnormal lab values. He recently had a lengthy hospitalization here November 05, 2016 through 01/18/2017 for sepsis and renal failure. The patient is seen in the CDU. He is initially hiding under his blankets upon entering the room. He has a blood transfusion in progress and reports feeling cold. Rigors are noted and checked his temperature. His temperature reading is 103.1 oral and I stopped his blood transfusion and discussed with Dr. Jimenez and his bedside RN. The patient is supposed received peritoneal dialysis for that is not occurred as of the time of my visit. I asked the bedside RN to call the controller instructor dialysis nurse for assistance with setting up PD. The patient reports feeling cold but otherwise denies shortness of breath or chest pain. He denies black stool but reports that stools are discolored red and that his last abnormal stool occurred yesterday. He states he was feeling fine prior to this and denies any fevers, chills, shortness of breath, cough, chest pain, nausea, vomiting, or diarrhea. Review of Systems Except as stated in HPI: all other systems reviewed are Neg Past Family Social History Past Medical History End-stage renal disease HIV/AIDS Hypertension Anemia of chronic illness . Past Surgical History Laparoscopic-assisted peritoneal dialysis catheter placement 12/14/[address] [place] Right Vas-Cath Placement 11/14/2016 . Reported Medications Reported Meds & Active Scripts Active Hydrocodone-Acetaminophen 5-325 mg Tab 1 Tab PO Q4H Prednisone 20 Mg Tab 40 Mg PO DAILY Acidophilus/l-Sporogenes (Lactobacillus Acidophilus) 35 Million Cell-25 Million Cell Tab 1 Tab PO Q12HR Norvasc (Amlodipine Besylate) 10 Mg Tab 10 Mg PO DAILY Rifampin 150 Mg Cap 300 Mg PO Q12HR [Ethambutol] 400 MG Tab 800 Mg PO DAILY Diflucan (Fluconazole) 100 Mg Tab 100 Mg PO Q24H Clarithromycin 500 Mg Tab 500 Mg PO Q12HR Walker Rolling/GetGo (Device) 1 Mis Mis Ea .ROUTE DIRECTED . Allergies: Coded Allergies: No Known Allergies (Unverified Allergy, Unknown, 02/22/17) Active Ordered Medications Current Medications Diphenhydramine HCl (Benadryl) 25 mg ONCE ONCE PO Last administered on 20:11; Start 02/22/17 at 18:00; Stop 02/22/17 at 18:01; Status DC Acetaminophen (Tylenol) 650 mg ONCE ONCE PO Last administered on 02/22/17 20 :11; Start 02/22/17 at 18:00; Stop 02/22/17 at 18:01; Status DC Furosemide (Lasix Inj) 40 mg ONCE ONCE IV PUSH ; Start 02/22/17 at 18:00; Stop 02/22/17 at 18:01; Status DC Sodium Chloride (NS Flush) 2 ml UNSCH PRN IV FLUSH FLUSH AFTER USING IV ACCESS ; Start 02/22/17 at 20:15 Sodium Chloride (NS Flush) 2 ml BID IV FLUSH ; Start 02/22/17 at 21:00 Naloxone HCl (Narcan Inj) 0.4 mg UNSCH PRN IV PUSH SEE LABEL COMMENTS; Start 02/22/17 at 20:15 Furosemide (Lasix Inj) 40 mg ONCE ONCE IV PUSH ; Start 02/23/17 at 00:00; Stop 02/23/17 at 00:01; Status DC Diphenhydramine HCl (Benadryl) 50 mg ONCE ONCE PO ; Start 02/23/17 at 03:30; Stop 02/23/17 at 03:31; Status DC Methylprednisolone Sodium Succinate (SoluMEDROL INJ) 125 mg ONCE ONCE IV PUSH ; Start 02/23/17 at 03:30; Stop 02/23/17 at 03:31; Status DC Acetaminophen (Tylenol) 650 mg ONCE ONCE PO ; Start 02/23/17 at 03:30; Stop 02/23/17 at 03:31; Status DC . Family History Mother with end-stage kidney disease and diabetes . Social History Tobacco: Does not smoke Alcohol: Does not drink alcohol . Physical Exam Vital Signs Vital Signs Date Time Temp Pulse Resp B/P (MAP) Pulse Ox O2 Delivery O2 Flow Rate FiO2 02/23/17 03:22 102.9 120 20 158/84 (108) 96 02/22/17 23:56 97.7 62 18 189/96 (127) 94 02/22/17 23:55 99.4 98 18 116/66 100 02/22/17 23:31 99.4 100 20 126/65 98 02/22/17 22:17 99.1 97 18 129/76 (93) 97 02/22/17 21:46 02/22/17 18:20 98.0 94 20 132/71 (91) 99 02/22/17 13:27 97.8 99 18 140/70 (93) 99 Room Air . Physical Exam GENERAL: This is a middle-aged male patient hiding under blankets, rigors noted. Patient reports feeling cold. SKIN: No rashes. Cool and dry. HEAD: Atraumatic. Normocephalic. EYES: No scleral icterus. No injection or drainage. ENT: Nose without bleeding, purulent drainage. NECK: Trachea midline. No JVD. CARDIOVASCULAR: Tachycardic rate and regular rhythm without murmurs, gallops, or rubs. RESPIRATORY: Clear to auscultation. Breath sounds equal bilaterally. No wheezes , rales, or rhonchi. GASTROINTESTINAL: Abdomen soft, non-tender, nondistended. No guarding. Right upper quadrant peritoneal dialysis catheter. MUSCULOSKELETAL: Extremities without clubbing, cyanosis. No calf tenderness. bilateral LE edema + 1. NEUROLOGICAL: Awake and alert. Motor and sensory grossly within normal limits. Normal speech. . Laboratory Laboratory Tests Test 02/22/17 14:00 White Blood Count 7.0 Red Blood Count 2.36 Hemoglobin 6.8 Hematocrit 20.6 Mean Corpuscular Volume 87.3 Mean Corpuscular Hemoglobin 28.9 Mean Corpuscular Hemoglobin Concent 33.2 Red Cell Distribution Width 23.2 Platelet Count 284 Mean Platelet Volume 8.6 Neutrophils (%) (Auto) 89.9 Lymphocytes (%) (Auto) 2.7 Monocytes (%) (Auto) 6.7 Eosinophils (%) (Auto) 0.0 Basophils (%) (Auto) 0.7 Neutrophils # (Auto) 6.3 Lymphocytes # (Auto) 0.2 Monocytes # (Auto) 0.5 Eosinophils # (Auto) 0.0 Basophils # (Auto) 0.1 CBC Comment AUTO DIFF Differential Total Cells Counted 100 Neutrophils % (Manual) 73 Band Neutrophils % 12 Lymphocytes % 8 Monocytes % 5 Neutrophils # (Manual) 6.1 Metamyelocytes 1 Promyelocytes 1 Differential Comment FINAL DIFF MANUAL Toxic Granulation 1+ Platelet Estimate NORMAL Platelet Morphology Comment NORMAL Tear Drop Cells 1+ Blood Urea Nitrogen 71 Creatinine 6.51 Random Glucose 85 Calcium Level 8.8 Sodium Level 135 Potassium Level 3.4 Chloride Level 101 Carbon Dioxide Level 22.2 Anion Gap 12 Estimat Glomerular Filtration Rate 11 Result Diagram: 02/22/17 1400 02/22/17 1400 Jonyrini VTE Risk Assessment Caprini VTE Risk Assessment: Mod/High Risk (score >= 2) Caprini Risk Assessment Model Point Value = 1 Point Value = 2 Point Value = 3 Point Value = 5 Age 41-60 Minor surgery BMI > 25 kg/m2 Swollen legs Varicose veins or History of unexplained or recurrent spontaneous Oral contraceptives or hormone replacement Sepsis (< 1 month) Serious lung disease, including pneumonia (< 1 month) Abnormal pulmonary function Acute myocardial infarction Congestive heart failure (< 1 month) History of inflammatory bowel disease Medical patient at bed rest Age 61-74 Arthroscopic surgery Major open surgery (> 45 min) Laparoscopic surgery (> 45 min) Malignancy Confined to bed (> 72 hours) Immobilizing plaster cast Central venous access Age >= 75 History of VTE Family history of VTE Factor V Leiden Prothrombin [id number] Lupus anticoagulant Anticardiolipin antibodies Elevated serum homocysteine Heparin-induced thrombocytopenia Other congenital or acquired thrombophilia Stroke (< 1 month) Elective arthroplasty Hip, pelvis, or leg fracture Acute spinal cord injury (< 1 month) Prophylaxis Regimen Total Risk Factor Score Risk Level Prophylaxis Regimen 0-1 Low Early ambulation 2 Moderate Order ONE of the following: *Sequential Compression Device (SCD) *Heparin 5000 units SQ BID 3-4 Higher Order ONE of the following medications: *Heparin 5000 units SQ TID *Enoxaparin/Lovenox 40 mg SQ daily (WT < 150 kg, CrCl > 30 mL/min) *Enoxaparin/Lovenox 30 mg SQ daily (WT < 150 kg, CrCl > 10-29 mL/min) *Enoxaparin/Lovenox 30 mg SQ BID (WT < 150 kg, CrCl > 30 mL/min) AND/OR *Sequential Compression Device (SCD) 5 or more Highest Order ONE of the following medications: *Heparin 5000 units SQ TID (Preferred with Epidurals) *Enoxaparin/Lovenox 40 mg SQ daily (WT < 150 kg, CrCl > 30 mL/min) *Enoxaparin/Lovenox 30 mg SQ daily (WT < 150 kg, CrCl > 10-29 mL/min) *Enoxaparin/Lovenox 30 mg SQ BID (WT < 150 kg, CrCl > 30 mL/min) AND *Sequential Compression Device (SCD) Assessment and Plan Problem List: (1) Anemia ICD Code: D64.9 - Anemia, unspecified (2) Transfusion reaction ICD Code: T80.92XA - Unspecified transfusion reaction, initial encounter (3) End stage renal disease on dialysis ICD Code: N18.6 - End stage renal disease; Z99.2 - Dependence on renal dialysis Status: Chronic Assessment and Plan Anemia - critical requiring blood transfusion - Hgb 6.8/HCT 20.6 - baseline hgb is around 8 - First blood transfusion in progress with noted transfusion reaction - patient reports stools discolored red - check stool for occult blood - Continuous cardiac telemetry to monitor heart rate and rhythm Transfusion reaction - Blood bank notified of transfusion reaction - Acetaminophen 650 mg p.o., Solumedrol 125 mg IVP, and Diphenhydramine 50 mg p.o. - We'll recheck CBC this morning - Will need premedication prior to future transfusions ESRD on peritoneal dialysis - nursing to page hemodialysis nurse controller instructor to set up peritoneal dialysis for patient - discussed with bedside RN - monitor renal function - avoid nephrotoxins - nephrology consult - assistance appreciated DVT prophylaxis - SCDs/TEDs Discussed Condition With Dr. Tavarez, patient come bedside RN, charge nurse Problem Qualifiers (1) Anemia: Qualified Codes: D64.9 - Anemia, unspecified Tanya Dupont Feb 23, 2017 04:01
[2017-02-23 09:06] LABS: AUTOMATED NEUTROPHIL # 8.7 TH/MM3 (1.8-7.7); BASOPHIL % 0.2 % (0.0-2.0); HEMATOCRIT 21.1 % (39.0-51.0); LYMPH % 1.5 % (9.0-44.0); LYMPHOCYTE # 0.1 TH/MM3 (1.0-4.8); MEAN CELL VOLUME 85.2 FL (80.0-100.0); MEAN CORPUSCULAR HEMOGLOBIN 28.2 PG (27.0-34.0); MONO % 1.7 % (0.0-8.0); NEUT % 96.6 % (16.0-70.0); PLATELET COUNT 226 TH/MM3 (150-450); RED BLOOD COUNT 2.48 MIL/MM3 (4.50-5.90); RED CELL DISTRIBUTION WIDTH 22.5 % (11.6-17.2)
[2017-02-23 09:09] LABS: HEMO FLAGS AUTO DIFF
[2017-02-23 09:36] LABS: BICARBONATE 21.9 MEQ/L (21.0-32.0); POTASSIUM 4.2 MEQ/L (3.5-5.1)
[2017-02-23 09:59] LABS: BANDS 3 % (0-6); METAMYELOCYTES 5 % (0-1); MYELOCYTES 1 % (0-0); NEUTROPHIL # MANUAL DIFF 8.8 TH/MM3 (1.8-7.7); POLYS (SEG NEUTROPHILS) 89 % (16-70); TOXIC GRANULATION 1+ (NORMAL); WBC DIFF SAMPLE 100
[2017-02-23 10:00] LABS: ACANTHOCYTES OCC (NORMAL); PLATELET ESTIMATE SMEAR NORMAL (NORMAL); PLATELET MORPHOLOGY ENLARGED (NORMAL)
[2017-02-23 10:01] LABS: OVALOCYTES 1+ (NORMAL); SCAN/DIFF FINAL DIFF MANUAL
--- NOTE | 2017-02-23 11:43 | HHI.PR ---
Objective Vitals Vital Signs Date Time Temp Pulse Resp B/P (MAP) Pulse Ox O2 Delivery O2 Flow Rate FiO2 02/23/17 11:15 98.6 110 18 142/92 (109) 100 02/23/17 08:34 98.1 87 16 124/73 (90) 100 02/23/17 06:32 100.4 97 18 130/80 (97) 100 02/23/17 04:58 102.4 114 19 123/72 (89) 96 02/23/17 03:37 118 02/23/17 03:22 102.9 120 20 158/84 (108) 96 02/23/17 02:01 99.4 85 18 112/64 (80) 100 02/22/17 23:56 97.7 62 18 189/96 (127) 94 02/22/17 23:55 99.4 98 18 116/66 100 02/22/17 23:31 99.4 100 20 126/65 98 02/22/17 22:17 99.1 97 18 129/76 (93) 97 02/22/17 21:46 02/22/17 18:20 98.0 94 20 132/71 (91) 99 02/22/17 13:27 97.8 99 18 140/70 (93) 99 Room Air I/O 02/22/17 02/22/17 02/22/17 02/23/17 02/23/17 02/23/17 07:00 15:00 23:00 07:00 15:00 23:00 Intake Total 425 ml Balance 425 ml Packed Cells 350 ml Blood Product IV Normal Saline Flush 75 ml # Voids 1 Result Diagram: 02/23/17 0835 02/23/17 0822 A/P Problem List: (1) Anemia ICD Code: D64.9 - Anemia, unspecified (2) Transfusion reaction ICD Code: T80.92XA - Unspecified transfusion reaction, initial encounter (3) End stage renal disease on dialysis ICD Code: N18.6 - End stage renal disease; Z99.2 - Dependence on renal dialysis Status: Chronic Problem Qualifiers (1) Anemia: Qualified Codes: D64.9 - Anemia, unspecified Macy Dunham MD Feb 23, 2017 11:43
[2017-02-23] MEDS ORDERED: SODIUM CHLORIDE 0.9% FLUSH 10 ML FLUSH IV FLUSH PRN (11:45)
[2017-02-23] MEDS ORDERED: HEPARIN SODIUM - IV 10,000 UNITS/10 ML VIAL XX PRN (11:45)
--- NOTE | 2017-02-23 11:53 | HHI.PR ---
Addendum to Inpatient Note Addendum Reason: Additional Documentation Additional Information Pt denies any CP/SOB/N/V Pt has no complaints when I saw him I did discuss the case w Dr. Shah, pt's library circulation technician, and apparently pt has been having chills at home as well. In addition, apparently pt told him today that he was also having bloody stools. on exam, laying in bed under covers, HR rrr, lungs clear, abdomen soft NT w no guarding. Per my discussion w Dr. Shah, there is concerns that pt may have a GI bleed. check hemoccult. consult GI for severe anemia. Will order blood cx as well. Pt had Tmax of 102.9 while getting transfusion however pt admitted to Dr. Shah that he has been having them on and off. 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 f/u blood cx. If pt continues to spike fevers, will get official ID consult for further recs. Pt's home meds resumed. Macy Dunham MD Feb 23, 2017 11:53
[2017-02-23] MEDS ORDERED: diphenhydrAMINE HCL 25 MG CAP PO PRN (12:15)
[2017-02-23] MEDS ORDERED: ACETAMINOPHEN 325 MG TAB PO PRN (12:15)
--- NOTE | 2017-02-23 12:22 | MB ---
cc: XIAO MELGOZA MD DATE OF CONSULTATION: 02/23/2017 REASON FOR CONSULTATION End-stage renal disease on peritoneal dialysis, for management. HISTORY OF PRESENT ILLNESS This is a 51-year-old male with past medical history of HIV, chronic anemia, recent history of LULU infection, history of chronic anemia, end-stage renal disease on peritoneal dialysis, now was sent to the emergency department because of very low hemoglobin. I was called to see the patient for management of dialysis. The patient has been on hemodialysis and he has the peritoneal dialysis catheter and started on peritoneal dialysis and has been doing it at home. His routine labs and follow up in the clinic showed that his hemoglobin dropped to 6.8. He has been getting Epogen in the dialysis clinic. The patient did admit on questioning that he has sometimes reddish streak of blood along with the stool off and on. There is no history of melena. Denies any abdominal pain. No nausea or vomiting. He has been taking antituberculous medicine for LULU infection and according to him is still having sometimes chills. He does not know exactly if he has fever. The patient still has the Perma-Cath and he is off hemodialysis now. The patient was given blood transfusion last night and during transfusion he developed chills and fever. He is afebrile now. Denies any cough, chest pain or shortness of breath. He is still passing some urine. PAST MEDICAL HISTORY 1. HIV. 2. Chronic anemia. 3. End-stage renal disease on hemodialysis. 4. Hypertension. 5. History of LULU infection in the blood. PAST SURGICAL HISTORY 1. Peritoneal dialysis catheter placement. 2. History of PermCath placement. REVIEW OF SYSTEMS The patient denies any headache, dizziness or blurring of vision. His appetite has been improving. He gained some weight. He is still getting chills at home sometimes off and on, does not know about the fever, no sore throat. No headache or dizziness, no shortness of breath, no chest pain, no palpitation. Denies any abdominal pain. Has some reddish streak of blood in the stool off and on. There is no history of diarrhea. No history of melena. SOCIAL HISTORY The patient lives with his brother. There is no history of smoking or alcoholism. FAMILY HISTORY Family history is positive for diabetes and renal disease in the mother. ALLERGIES No known drug allergies. MEDICATIONS The patient was given: 1. Furosemide. 2. Methylprednisolone. 3. Benadryl. PHYSICAL EXAMINATION GENERAL: On examination the patient is awake, alert. He is not in acute distress. VITAL SIGNS: His blood pressure is 142/92, temperature is 98.6 with T-max of 102.9, oxygen saturation 100% on room air. HEENT: Pupils are mid constricted. Nonicteric sclerae. Conjunctivae are pale. NECK: Supple. JVD is not elevated. LUNGS: The patient has bilateral decreased air entry with occasional wheezing. HEART: S1, S2, regular rhythm. ABDOMEN: Distended, soft, lax. There is PD catheter in place. There is no tenderness. Bowel sounds positive. EXTREMITIES: There is no pedal edema. INVESTIGATION WBC count 9.0, hemoglobin 7.0, platelet count of 226, neutrophils 96.6%, sodium 136, potassium 4.2, chloride 103, bicarb 21.9, BUN 75, creatinine 6.96. IMAGING STUDIES There is no recent imaging study. ASSESSMENT/PLAN 1. Anemia with possible GI bleeding. 2. Fever and chills. 3. History of LULU infection. 4. HIV and AIDS. 5. End-stage renal disease on peritoneal dialysis. 6. Anemia. The patient has been admitted mainly for the anemia and now it looks like he has GI bleeding. He will need a GI consult and if he spikes fever again, then he will need ID consult to restart him back on his antituberculous treatment and I will resume his peritoneal dialysis which will be started later in the afternoon today. There is no acute urgent need to start dialysis sooner since his potassium is normal, he is not in fluid overload status. Follow the hemoglobin level. He will need another unit transfusion. Thank you for the consultation and I will follow the patient while he is in the hospital. MD HANG Benton/ROSE MARIE /11:33 AM /12:01 PM
[2017-02-23] MEDS: SODIUM CHLORIDE 0.9% FLUSH 10 ML FLUSH IV FLUSH SCH ×2 (12:55→21:00)
[2017-02-23] MEDS: FLUCONAZOLE 100 MG TAB PO SCH (12:55)
--- NOTE | 2017-02-23 15:29 | PD.CONS ---
HPI History of Present Illness This is a 51 year old male with HIV, ESRD on PD who came to ER after Diana called him b/c of low hgb and told him to come to ER for transfusion. Admits blood in stool starting 3 weeks ago, the stools appeared reddish. He has been having intermittent subjective fevers and loose stools since October. He has lost 40 lbs since October. No hx GIB before. Denies ulysses rectal bleeding, black tarry stool, abd pain, n/v. Never had colonoscopy or EGD. Not on blood thinners. Occasional NSAIDs but infrequent. NO hx gastric ulcers. Stools not red today. (Mercedes Maynard) PFSH Past Medical History End-stage renal disease HIV/AIDS Hypertension Anemia of chronic illness . Past Surgical History Laparoscopic-assisted peritoneal dialysis catheter placement 12/14/[address] [place] Right Vas-Cath Placement 11/14/2016 . (Mercedes Maynard) Coded Allergies: No Known Allergies (Unverified Allergy, Unknown, 02/22/17) Family History Mother with end-stage kidney disease and diabetes . Social History Tobacco: Does not smoke Alcohol: Does not drink alcohol . (Mercedes Maynard) Review of Systems Constitutional: COMPLAINS OF: Fever, Weight loss Endocrine: DENIES: Polyuria Ears, nose, mouth, throat: DENIES: Throat pain Respiratory: DENIES: Hemoptysis Cardiovascular: DENIES: Chest pain Gastrointestinal: COMPLAINS OF: Bloody stools, Diarrhea, DENIES: Abdominal pain , Black stools, Constipation, Nausea, Vomiting, Hematemesis Genitourinary: DENIES: Hematuria Musculoskeletal: DENIES: Joint Swelling Integumentary: DENIES: Jaundice Hematologic/lymphatic: DENIES: Bruising Neurologic: DENIES: Abnormal gait Psychiatric: DENIES: Confusion (Mercedes Maynard) GI Exam Vitals I&O Vital Signs Date Time Temp Pulse Resp B/P (MAP) Pulse Ox O2 Delivery O2 Flow Rate FiO2 02/23/17 13:16 98.1 97 18 124/73 (90) 100 02/23/17 11:15 98.6 110 18 142/92 (109) 100 02/23/17 08:34 98.1 87 16 124/73 (90) 100 02/23/17 08:00 93 02/23/17 06:32 100.4 97 18 130/80 (97) 100 02/23/17 04:58 102.4 114 19 123/72 (89) 96 02/23/17 03:37 118 02/23/17 03:22 102.9 120 20 158/84 (108) 96 02/23/17 02:01 99.4 85 18 112/64 (80) 100 02/22/17 23:56 97.7 62 18 189/96 (127) 94 02/22/17 23:55 99.4 98 18 116/66 100 02/22/17 23:31 99.4 100 20 126/65 98 02/22/17 22:17 99.1 97 18 129/76 (93) 97 02/22/17 21:46 02/22/17 18:20 98.0 94 20 132/71 (91) 99 I/O 02/22/17 02/22/17 02/22/17 02/23/17 02/23/17 02/23/17 07:00 15:00 23:00 07:00 15:00 23:00 Intake Total 425 ml 5 ml Balance 425 ml 5 ml Packed Cells 350 ml Blood Product IV Normal Saline Flush 75 ml 5 ml # Voids 1 Laboratory Test 02/23/17 08:00 02/23/17 08:22 02/23/17 08:35 Urine Occult Blood NEG Blood Urea Nitrogen 75 MG/DL Creatinine 6.96 MG/DL Random Glucose 112 MG/DL Calcium Level 8.5 MG/DL Sodium Level 136 MEQ/L Potassium Level 4.2 MEQ/L Chloride Level 103 MEQ/L Carbon Dioxide Level 21.9 MEQ/L Anion Gap 11 MEQ/L Estimat Glomerular Filtration Rate 10 ML/MIN White Blood Count 9.0 TH/MM3 Red Blood Count 2.48 MIL/MM3 Hemoglobin 7.0 GM/DL Hematocrit 21.1 % Mean Corpuscular Volume 85.2 FL Mean Corpuscular Hemoglobin 28.2 PG Mean Corpuscular Hemoglobin Concent 33.0 % Red Cell Distribution Width 22.5 % Platelet Count 226 TH/MM3 Mean Platelet Volume 8.5 FL Neutrophils (%) (Auto) 96.6 % Lymphocytes (%) (Auto) 1.5 % Monocytes (%) (Auto) 1.7 % Eosinophils (%) (Auto) 0.0 % Basophils (%) (Auto) 0.2 % Neutrophils # (Auto) 8.7 TH/MM3 Lymphocytes # (Auto) 0.1 TH/MM3 Monocytes # (Auto) 0.2 TH/MM3 Eosinophils # (Auto) 0.0 TH/MM3 Basophils # (Auto) 0.0 TH/MM3 CBC Comment AUTO DIFF Differential Total Cells Counted 100 Neutrophils % (Manual) 89 % Band Neutrophils % 3 % Monocytes % 2 % Neutrophils # (Manual) 8.8 TH/MM3 Metamyelocytes 5 % Myelocytes 1 % Differential Comment FINAL DIFF MANUAL Toxic Granulation 1+ Platelet Estimate NORMAL Platelet Morphology Comment ENLARGED Ovalocytes 1+ Acanthocytes OCC Date/Time Source Procedure Growth Status 02/23/17 13:05 Blood Peripheral Aerobic Blood Culture Pending Received 02/23/17 13:05 Blood Peripheral Anaerobic Blood Culture Pending Received Physical Examination HEENT: PERRL; normocephalic; atraumatic; no jaundice. CHEST: CTA CARDIAC: RRR ABDOMEN: Soft, nondistended, nontender; no hepatosplenomegaly; bowel sounds are present in all four quadrants. PD catheter dressing d&I EXTREMITIES: No clubbing, cyanosis, or edema. SKIN: Normal; no rash; no jaundice. PEN RIDER: No focal deficits; alert and oriented times three. (Mercedes Maynard) Assessment and Plan Plan ASSESSMENT - anemia, ?hematochezia- hgb 6.8 on admission, likely multifactorial. pt admits dark red stools. never had colonoscopy or EGD. Of note he did have poss reaction with initial blood transfusion has been medicated, receiving blood currently, seems to be tolerating - subj fevers, loose stool - unclear etiology. since october. taking mult abx will check stool cx - ESRD on PD, HIV PLAN - c diff & stool studies - colonoscopy in am - obtain consent - clear liquids - NPO after midnight - GoLytely - monitor HH - transfuse as needed (Mercedes Maynard) Physician Comments seen, examined agree with above egd/colon in am (Sandy Bailey MD) Mercedes Maynard Feb 23, 2017 15:29 Sandy Bailey MD Feb 23, 2017 19:54
[2017-02-23] MEDS ORDERED: PEG (High)/E-LYTE SOLN 4000 ML BTL PO ONE (15:30)
[2017-02-23 18:19] LABS: HEMATOCRIT 22.4 % (39.0-51.0); REVIEW FLAG FINAL
[2017-02-23] MEDS ORDERED: RIFAMPIN 150 MG CAP PO SCH (21:00)
[2017-02-23] MEDS ORDERED: CLARITHROMYCIN 500 MG TAB PO SCH (21:00)
[2017-02-23] MEDS: CLARITHROMYCIN 250 MG TAB PO SCH (22:01)
[2017-02-23 23:36] LABS: C. DIFF EPI 027 PRESUMPTIVE NEGATIVE (NEGATIVE)
[2017-02-24] VITALS (8 sets, daily range): BP systolic 130–182; BP diastolic 73–106; PULSE 68–102; RESP 16–20; TEMP 98.6–99.4; O2SAT 98–100
[2017-02-24 07:42] LABS: AUTOMATED NEUTROPHIL # 7.4 TH/MM3 (1.8-7.7); BASOPHIL % 0.5 % (0.0-2.0); EOSINOPHIL % 0.3 % (0.0-4.0); HEMATOCRIT 25.6 % (39.0-51.0); LYMPH % 2.3 % (9.0-44.0); LYMPHOCYTE # 0.2 TH/MM3 (1.0-4.8); MEAN CELL VOLUME 84.2 FL (80.0-100.0); MEAN CORPUSCULAR HEMOGLOBIN 28.4 PG (27.0-34.0); MEAN CORPUSCULAR HGB CONC 33.7 % (32.0-36.0); MONO % 5.2 % (0.0-8.0); NEUT % 91.7 % (16.0-70.0); PLATELET COUNT 220 TH/MM3 (150-450); RED BLOOD COUNT 3.04 MIL/MM3 (4.50-5.90); RED CELL DISTRIBUTION WIDTH 22.2 % (11.6-17.2)
[2017-02-24 07:51] LABS: HEMO FLAGS AUTO DIFF
[2017-02-24 08:10] LABS: BICARBONATE 23.4 MEQ/L (21.0-32.0); POTASSIUM 3.6 MEQ/L (3.5-5.1)
[2017-02-24] MEDS ORDERED: ETHAMBUTOL PO SCH (09:00)
[2017-02-24] MEDS: VITAMIN B CMPLX/VITC/FOLIC AC CAP PO SCH (09:00)
[2017-02-24] MEDS: CLARITHROMYCIN 250 MG TAB PO SCH ×2 (09:00→20:57)
[2017-02-24] MEDS ORDERED: ETHAMBUTOL HCL 400 MG TAB PO SCH (09:00)
[2017-02-24 09:21] LABS: BANDS 4 % (0-6); MYELOCYTES 1 % (0-0); NEUTROPHIL # MANUAL DIFF 6.6 TH/MM3 (1.8-7.7); POLYS (SEG NEUTROPHILS) 78 % (16-70); WBC DIFF SAMPLE 100
[2017-02-24 09:22] LABS: OVALOCYTES 1+ (NORMAL); PLATELET ESTIMATE SMEAR NORMAL (NORMAL); PLATELET MORPHOLOGY NORMAL (NORMAL); SCAN/DIFF FINAL DIFF MANUAL
--- NOTE | 2017-02-24 10:18 | HHI.NPPN ---
Subjective History of Present Illness 51-year-old male with past medical history of HIV, chronic anemia, recent history of LULU infection, history of chronic anemia, end-stage renal disease on peritoneal dialysis, now was sent to the emergency department because of very low hemoglobin. I was called to see the patient for management of dialysis. The patient has been on hemodialysis and recently started on peritoneal dialysis and has been doing it at home. Additional Remarks Patient is alert, no SOB, no abd. pain. Review of Systems General Constitutional: Fatigue Objective Data Data 02/24/17 02/25/17 19:00 07:00 Output Total 816 ml Balance -816 ml Peritoneal Fluid 816 ml Vital Signs Date Time Temp Pulse Resp B/P (MAP) Pulse Ox O2 Delivery O2 Flow Rate FiO2 02/24/17 08:10 99.1 102 18 147/78 (101) 99 02/24/17 04:00 98.6 68 20 130/73 (92) 99 02/24/17 00:00 98.6 84 20 159/94 (115) 100 02/23/17 20:00 98.1 83 18 136/80 (98) 100 02/23/17 16:55 97.8 81 18 128/71 (90) 100 02/23/17 16:02 98.0 85 18 134/71 (92) 100 02/23/17 13:16 98.1 97 18 124/73 (90) 100 02/23/17 11:15 98.6 110 18 142/92 (109) 100 -: 02/24/17 0637 02/24/17 0637 Microbiology 02/23/17 Aerobic Blood Culture, Received Pending 02/23/17 Anaerobic Blood Culture, Received Pending 02/23/17 Aerobic Blood Culture, Received Pending 02/23/17 Anaerobic Blood Culture, Received Pending 02/23/17 Cryptosporidium Exam, Received Pending 02/23/17 Giardia Antigen (PAUL), Received Pending 02/23/17 , Received Pending 02/23/17 Stool Occult Blood (PAUL) - Final, Complete HEMOCCULT NEGATIVE Physical Exam General Appearance: No Acute Distress, Comfortable Eyes Eye Exam: Pupils Equal Neck Neck Exam: Neck Supple Pulmonary Resp Exam: Breath Sounds Equal, No Distress, Rhonchi, Decreased Bases Cardiology CV Exam: Regular, Normal Sinus Rhythm Gastrointestinal/Abdomen GI Exam: Soft, Non-Tender, Bowel Sounds Present Extremeties Extremities Exam: Trace Edema Neurologic Neuro Exam: Alert, Awake, Oriented Psychiatric Psych Exam: Appropriate Responses Assessment/Plan Assessment Summary: Anemia of CKD, Hypertension, End Stage Renal Disease Problem List: (1) HIV (human immunodeficiency virus infection) ICD Codes: B20 - Human immunodeficiency virus [HIV] disease (2) Anemia ICD Codes: D64.9 - Anemia, unspecified (3) Transfusion reaction ICD Codes: T80.92XA - Unspecified transfusion reaction, initial encounter (4) Weakness ICD Codes: R53.1 - Weakness (5) Malnutrition ICD Codes: E46 - Unspecified protein-calorie malnutrition (6) End stage renal disease on dialysis ICD Codes: N18.6 - End stage renal disease; Z99.2 - Dependence on renal dialysis Status: Chronic Plan Patient has stable Hgb. Now has no active bleeding. GI has seen the patient. For EGD and colonoscopy. PD is working and fluid is clear. Follow Hgb. Problem Qualifiers (1) Anemia: Qualified Codes: D64.9 - Anemia, unspecified Kwadwo Shah MD Feb 24, 2017 10:18
[2017-02-24] MEDS ORDERED: LIDOCAINE HCL 1% PF 5 ML SYRINGE OTHER ONE (12:00)
[2017-02-24] MEDS ORDERED: PROPOFOL 200 MG/20 ML AMP IV ONE (12:00)
--- NOTE | 2017-02-24 12:18 | GIPROC ---
[facility] [address] [facility]. [facility], [address] EGD PROCEDURE REPORT EXAM DATE: 02/24/2017 PATIENT NAME: Karena Hu MR #: [id number] BIRTHDATE: 1965 ATTENDING: Sandy Bailey MD ORDER #: [id number] LOCOMOTIVE REPAIRER DIESEL: Rg Cruz and Paola Eller STATUS: inpatient INDICATIONS: The patient is a 51 yr old male here for an EGD due to anemia, gi bleeding PROCEDURE PERFORMED: EGD w/ biopsy MEDICATIONS: None and Per Anesthesia. TOPICAL ANESTHETIC: none CONSENT: The patient understands the risks and benefits of the procedure and understands that these risks include, but are not limited to: sedation, allergic reaction, infection, perforation and/or bleeding. Alternative means of evaluation and treatment include, among others: physical exam, x-rays, and/or surgical intervention. The patient elects to proceed with this endoscopic procedure. medical equipment was checked for proper function. Hand hygiene and appropriate measures for infection prevention was taken. After the risks, benefits and alternatives of the procedure were thoroughly explained, Informed consent was verified, confirmed and timeout was successfully executed by the treatment team. The patient was anesthetized with topical anesthesia and the EC-[id number] (Pedi C) endoscope was introduced through the mouth and advanced to the second portion of the duodenum. Retroflexed views revealed a hiatal hernia The gastroscope was then slowly withdrawn and removed. Duodenum normal-biopsy gastrtiis antrum-biopsy esophagitis distal esophagus. ADVERSE EVENTS: There were no complications. IMPRESSIONS: 1. Duodenum normal-biopsy gastrtiis antrum-biopsy esophagitis distal esophagus 2. Retroflexed views revealed a hiatal hernia RECOMMENDATIONS: 1. Await biopsy results. Biopsy results will not be ready for 7-10 days. If you don't hear from us in two weeks, call our office for biopsy results. 2. Avoid NSAIDS 3. Anti-reflux regimen PATIENT CONDITION: stable DISPOSITION: Inpatient REPEAT EXAM: Return 3 years EGD Sandy Bailey MD eSigned: Sandy Bailey MD 02/24/2017 12:18 PM cc: PATIENT NAME: Karena Hu MR#: [id number]
--- NOTE | 2017-02-24 12:18 | HHI.PR ---
Subjective Remarks Written by Zaria Neely, acting as scribe for Dr. Michelle on 02/24/17 at 12: 18. Follow-up on patient with HIV/AIDS, ESRD on PD, anemia. Patient seen and examined. Patient reports blood in his stool for the past 2 weeks. He reports some diarrhea. He denies any hematuria. Denies any fever or chills. Denies any chest pain or dyspnea. Denies any nausea, vomiting or abdominal pain. States he follow up with his ID physician closely. Reports his buttock infection is not doing so good. Objective Vitals Vital Signs Date Time Temp Pulse Resp B/P (MAP) Pulse Ox O2 Delivery O2 Flow Rate FiO2 02/24/17 08:10 99.1 102 18 147/78 (101) 99 02/24/17 04:00 98.6 68 20 130/73 (92) 99 02/24/17 00:00 98.6 84 20 159/94 (115) 100 02/23/17 20:00 98.1 83 18 136/80 (98) 100 02/23/17 16:55 97.8 81 18 128/71 (90) 100 02/23/17 16:02 98.0 85 18 134/71 (92) 100 02/23/17 13:16 98.1 97 18 124/73 (90) 100 I/O 02/23/17 02/23/17 02/23/17 02/24/17 02/24/17 02/24/17 07:00 15:00 23:00 07:00 15:00 23:00 Intake Total 425 ml 5 ml 405 ml 2000 ml 300 ml Output Total 1500 ml 816 ml Balance 425 ml 5 ml 405 ml 500 ml -516 ml Intake Oral 2000 ml Packed Cells 350 ml 400 ml Blood Product IV Normal Saline Flush 75 ml 5 ml 5 ml Other 300 ml Output Stool Total 1500 ml Peritoneal Fluid 816 ml Result Diagram: 02/24/1737 02/24/17 0637 Objective Remarks GENERAL: This is a middle-aged male patient, INAD. Awake and alert. SKIN: No rashes. Cool and dry. HEAD: Atraumatic. Normocephalic. EYES: No scleral icterus. No injection or drainage. ENT: Nose without bleeding, purulent drainage. NECK: Trachea midline. No JVD. CARDIOVASCULAR: Tachycardic rate and regular rhythm without murmurs, gallops, or rubs. RESPIRATORY: Clear to auscultation. Breath sounds equal bilaterally. No wheezes , rales, or rhonchi. GASTROINTESTINAL: Abdomen soft, non-tender, nondistended. No guarding. Right upper quadrant peritoneal dialysis catheter. MUSCULOSKELETAL: Extremities without clubbing, cyanosis. No calf tenderness. bilateral LE edema + 1. NEUROLOGICAL: Awake and alert. Motor and sensory grossly within normal limits. Normal speech. A/P Problem List: (1) Anemia ICD Code: D64.9 - Anemia, unspecified (2) Transfusion reaction ICD Code: T80.92XA - Unspecified transfusion reaction, initial encounter (3) End stage renal disease on dialysis ICD Code: N18.6 - End stage renal disease; Z99.2 - Dependence on renal dialysis Status: Chronic Assessment and Plan 51 yo male with HIV/AIDS, ESRD on PD and HTN admitted with complaints of diarrhea, bloody stools and anemia with Hgb of 6.8. GIB Hematochezia - patient with bloody stools x 2 weeks - GI following, appreciate assistance. Panendoscopy today. Will follow up on GI recommendations Diarrhea - stool studies and C diff ordered/pending - Lactobacillus TID Anemia - critical requiring blood transfusion - Hgb 6.8/HCT 20.6 - baseline hgb is around 8 - s/p 2units PRBCs with improvement of H/H to 8.6/25.6 - monitor CBC Transfusion reaction - Blood bank notified of transfusion reaction - Acetaminophen 650 mg p.o., Solumedrol 125 mg IVP, and Diphenhydramine 50 mg p.o. - Will need premedication prior to future transfusions ESRD on peritoneal dialysis - monitor renal function - avoid nephrotoxins - nephrology consult, appreciate assistance HIV/AIDS - hx of disseminated MAC - resume home medications Clarithromycin, Ethambutol and Rifampin, renally dosed - ID consulted, appreciate assistance Perianal lesions - wound care consulted DVT prophylaxis - SCDs/TEDs This note was transcribed by edy Neely. I, Dr. Nelson Michelle personally performed the history, physical exam, and medical decision making; and confirmed the accuracy of the information in the transcribed note. Authenticated by Dr. Nelson Michelle on 02/24/17 at 12:18. Problem Qualifiers (1) Anemia: Qualified Codes: D64.9 - Anemia, unspecified Zaria Neely Feb 24, 2017 12:18 Nelson Michelle MD Feb 24, 2017 12:18
--- NOTE | 2017-02-24 12:21 | GIPROC ---
[facility] [address] [facility]. [facility], [address] COLONOSCOPY PROCEDURE REPORT EXAM DATE: 02/24/2017 PATIENT NAME: Karena Hu MR #: [id number] BIRTHDATE: 1965 ENDOSCOPIST: Sandy Bailey MD ORDER #: [id number] POLICY WRITER SALES: Rg Cruz and Paola Eller STATUS: inpatient INDICATIONS: The patient is a 51 yr old male here for a colonoscopy due to anemai, gi bleeding PROCEDURE PERFORMED: Colonoscopy with biopsy MEDICATIONS: None and Per Anesthesia. PREP QUALITY: fair PREP TYPE:Other: ESTIMATED BLOOD LOSS: None CONSENT: The patient understands the risks and benefits of the procedure and understands that these risks include, but are not limited to: sedation, allergic reaction, infection, perforation and/or bleeding. Alternative means of evaluation and treatment include, among others: physical exam, x-rays, and/or surgical intervention. The patient elects to proceed with this endoscopic procedure. medical equipment was checked for proper function. Hand hygiene and appropriate measures for infection prevention was taken. After the risks, benefits and alternatives of the procedure were thoroughly explained, Informed consent was verified, confirmed and timeout was successfully executed by the treatment team. A digital exam large ulceratred lesions in perianal area-possible herpes/cmv The Pentax EC-[id number] endoscope was introduced through the anus and advanced to the cecum, which was identified by both the appendix and ileocecal valve. The instrument was then slowly withdrawn as the colon was fully examined. COLON FINDINGS: Diverticulosis sigmoid,descending. Random biopsy from ascending and descending done r/o cmv. herpes. Retroflexed views revealed internal hemorrhoids and Retroflexed views revealed medium internal hemorrhoids The scope was then completely withdrawn from the patient and the procedure terminated. PROCEDURE WITHDRAWAL TIME:6minutes ADVERSE EVENTS: There were no complications. IMPRESSIONS: 1. Diverticulosis sigmoid,descending 2. Retroflexed views revealed internal hemorrhoids 3. Retroflexed views revealed medium internal hemorrhoids 4. Large ulceratred lesions in perianal area-possible herpes/cmv RECOMMENDATIONS: 1. Await biopsy results. Biopsy results will not be ready for 7-10 days. If you don't hear from us in two weeks, call our office for results. 2. Probiotics from any [employer] or [employer] food store 3. Consult ID consult wound care for perianal ulcer RECALL: Return 5 years Colonoscopy Sandy Bailey MD eSigned: Sandy Bailey MD 02/24/2017 12:20 PM cc:
[2017-02-24] MEDS: RIFAMPIN 150 MG CAP PO SCH (12:37)
[2017-02-24] MEDS: predniSONE 20 MG TAB PO SCH (12:37)
[2017-02-24] MEDS: FLUCONAZOLE 100 MG TAB PO SCH (12:37)
--- NOTE | 2017-02-24 15:38 | PD.ID.CON ---
History of Present Illness Service ID Consult Requested By Reason for Consult Evaluation and Mment of Anal lesions in a patient with HIV/AIDS. Primary Care Physician No Primary Care Physician Diagnoses: History of Present Illness Mr. Hu is a 51-year-old male with a history of HIV/AIDS, end-stage renal disease on peritoneal dialysis, and hypertension who presented to the emergency department on 02/22/2017 after receiving a call from [facility] instructing him to go to the emergency room to receive a blood transfusion because of abnormal lab values. He recently had a lengthy hospitalization here November 05, 2016 through 01/18/2017 for sepsis and renal failure. Patient was recently seen by Dr.Reba Paul as outpatient for the very first time and was prescribed HAART regimen but patient did not fill these medications. informed me that he has been on LULU treatment reportedly since Oct 2016 when he was last seen by ID in hospital. Patient lives with his niece and she helps him sometimes with his pericare. He reports he has had perianal lesions for last few months and they get worse when he lays on his back. informed me that he was prescribed Valtrex but unsure if he is taking it. saw patient in consultation for anemia and consulted ID for evaluation and Mment of anal lesions in HIV/AIDS pt. Review of Systems ROS Limitations: Poor Historian Constitutional: COMPLAINS OF: Diaphoretic episodes, Fever, Weight loss, Chills , Night Sweats, DENIES: Fatigue, Weight gain, Dizziness, Change in appetite Endocrine: COMPLAINS OF: Heat/cold intolerance, DENIES: Polydipsia, Polyuria, Polyphagia Eyes: COMPLAINS OF: Blurred vision, DENIES: Diplopia, Eye inflammation, Eye pain, Vision loss, Photosensitivity, Double Vision Ears, nose, mouth, throat: DENIES: Tinnitus, Hearing loss, Vertigo, Nasal discharge, Oral lesions, Throat pain, Hoarseness, Ear Pain, Running Nose, Epistaxis, Sinus Pain, Toothache, Odynophagia Respiratory: DENIES: Apneas, Cough, Snoring, Wheezing, Hemoptysis, Sputum production, Shortness of breath Cardiovascular: DENIES: Chest pain, Palpitations, Syncope, Dyspnea on Exertion , PND, Lower Extremity Edema, Orthopnea, Claudication Gastrointestinal: COMPLAINS OF: Diarrhea, DENIES: Abdominal pain, Black stools , Bloody stools, Constipation, Nausea, Vomiting, Difficulty Swallowing, Anorexia Genitourinary: DENIES: Sexual dysfunction, Urinary frequency, Urinary incontinence, Urgency, Hematuria, Dysuria, Nocturia, Penile Discharge, Testicular Pain, Testicular Swelling Musculoskeletal: DENIES: Joint pain, Muscle aches, Stiffness, Joint Swelling, Back pain, Neck pain Integumentary: DENIES: Abnormal pigmentation, Nail changes, Pruritus, Rash Hematologic/lymphatic: DENIES: Bruising, Lymphadenopathy Immunologic/allergic: DENIES: Eczema, Urticaria Neurologic: DENIES: Abnormal gait, Headache, Localized weakness, Paresthesias, Seizures, Speech Problems, Tremor, Poor Balance Psychiatric: DENIES: Anxiety, Confusion, Mood changes, Depression, Hallucinations, Agitation, Suicidal Ideation, Homicidal Ideation, Delusions Except as stated in HPI: all other systems reviewed are Neg Past Family Social History Allergies: Coded Allergies: No Known Allergies (Unverified Allergy, Unknown, 02/22/17) Past Medical History End-stage renal disease HIV/AIDS Hypertension Anemia of chronic illness Disseminated LULU Past Surgical History Laparoscopic-assisted peritoneal dialysis catheter placement 12/14/[address] [place] Right Vas-Cath Placement 11/14/2016 EGD Colonoscopy. Reported Medications Reported Meds & Active Scripts Active Hydrocodone-Acetaminophen 5-325 mg Tab 1 Tab PO Q4H Prednisone 20 Mg Tab 40 Mg PO DAILY Acidophilus/l-Sporogenes (Lactobacillus Acidophilus) 35 Million Cell-25 Million Cell Tab 1 Tab PO Q12HR Norvasc (Amlodipine Besylate) 10 Mg Tab 10 Mg PO DAILY Rifampin 150 Mg Cap 300 Mg PO Q12HR [Ethambutol] 400 MG Tab 800 Mg PO DAILY Diflucan (Fluconazole) 100 Mg Tab 100 Mg PO Q24H Clarithromycin 500 Mg Tab 500 Mg PO Q12HR Walker Rolling/GetGo (Device) 1 Mis Mis Ea .ROUTE DIRECTED Active Ordered Medications Current Medications Medications (Trade) Dose Ordered Sig/Nyla Route Start Time Stop Time Status Last Admin (NS Flush) 2 ml UNSCH PRN IV FLUSH 02/22/17 20:15 (NS Flush) 2 ml BID IV FLUSH 02/22/17 21:00 02/24/17 20:57 (Narcan Inj) 0.4 mg UNSCH PRN IV PUSH 02/22/17 20:15 (Heparin Inj) 1,000 units WITH DIALYSIS PRN XX 02/23/17 11:45 (NS Flush) 10 ml UNSCH PRN IV FLUSH 02/23/17 11:45 (Nephrocaps) 1 cap DAILY PO 02/24/17 09:00 02/24/17 09:00 (Diflucan) 100 mg Q24H PO 02/23/17 12:00 02/24/17 12:37 (Deltasone) 40 mg DAILY PO 02/24/17 09:00 02/24/17 12:37 (Biaxin) 250 mg Q12HR PO 02/23/17 21:00 02/24/17 20:57 (Rifampin) 300 mg DAILY PO 02/24/17 09:00 02/24/17 12:37 (Tylenol) 650 mg Q4H PRN PO 02/23/17 12:15 02/23/17 12:55 (Benadryl) 25 mg Q4H PRN PO 02/23/17 12:15 02/23/17 12:54 (Lactinex) 1 tab TID PO 02/24/17 18:00 02/24/17 17:55 (Myambutol) 1,200 mg DAILY PO 02/25/17 09:00 UNV (Valtrex) 1,000 mg Q8HR PO 02/24/17 22:00 UNV Family History NC to current ID problems. Social History Tobacco: Does not smoke Alcohol: Does not drink alcohol Acquired HIV by sexual route. He is a MSM. Physical Exam Vital Signs Vital Signs Date Time Temp Pulse Resp B/P (MAP) Pulse Ox O2 Delivery O2 Flow Rate FiO2 02/24/17 12:43 99.4 96 18 182/100 (127) 98 02/24/17 12:06 100.1 95 18 140/83 (102) 98 02/24/17 08:10 99.1 102 18 147/78 (101) 99 02/24/17 04:00 98.6 68 20 130/73 (92) 99 02/24/17 00:00 98.6 84 20 159/94 (115) 100 02/23/17 20:00 98.1 83 18 136/80 (98) 100 02/23/17 16:55 97.8 81 18 128/71 (90) 100 02/23/17 16:02 98.0 85 18 134/71 (92) 100 Physical Exam GENERAL: Thin built cachectic appearing male patient, in no apparent distress. SKIN: No generalized rashes, ecchymoses or lesions. Cool and dry. HEAD: Atraumatic. Normocephalic. No temporal or scalp tenderness. EYES: Pupils equal round and reactive. Extraocular motions intact. No scleral icterus. No injection or drainage. ENT: Nose without bleeding, purulent drainage or septal hematoma. Throat without erythema, tonsillar hypertrophy or exudate. Uvula midline. Airway patent. NECK: Trachea midline. Supple, nontender, no meningeal signs. CARDIOVASCULAR: Regular rate and rhythm without murmurs, gallops, or rubs. RESPIRATORY: Clear to auscultation. Breath sounds equal bilaterally. No wheezes , rales, or rhonchi. GASTROINTESTINAL: Abdomen soft, non-tender, nondistended. MUSCULOSKELETAL: Extremities without clubbing, cyanosis, or edema. No joint tenderness, effusion, or edema noted. No calf tenderness. Negative Homans sign bilaterally. NEUROLOGICAL: Awake and alert. Normal speech. Buttock and part of the posterior scrotal sac with confluent skin lesions with yellowish purulent drainage. Psych cooperative IV line sites with no e.o infection Laboratory Laboratory Tests Test 02/23/17 17:53 02/23/17 18:30 02/24/17 06:37 Hemoglobin 7.6 8.6 Hematocrit 22.4 25.6 Stool C. difficile Toxin (PCR) NEGATIVE Stl C. difficile Toxin Epiderm 027 PRESUMPTIVE NEGATIVE White Blood Count 8.0 Red Blood Count 3.04 Mean Corpuscular Volume 84.2 Mean Corpuscular Hemoglobin 28.4 Mean Corpuscular Hemoglobin Concent 33.7 Red Cell Distribution Width 22.2 Platelet Count 220 Mean Platelet Volume 8.5 Neutrophils (%) (Auto) 91.7 Lymphocytes (%) (Auto) 2.3 Monocytes (%) (Auto) 5.2 Eosinophils (%) (Auto) 0.3 Basophils (%) (Auto) 0.5 Neutrophils # (Auto) 7.4 Lymphocytes # (Auto) 0.2 Monocytes # (Auto) 0.4 Eosinophils # (Auto) 0.0 Basophils # (Auto) 0.0 CBC Comment AUTO DIFF Differential Total Cells Counted 100 Neutrophils % (Manual) 78 Band Neutrophils % 4 Lymphocytes % 9 Monocytes % 8 Neutrophils # (Manual) 6.6 Myelocytes 1 Differential Comment FINAL DIFF MANUAL Platelet Estimate NORMAL Platelet Morphology Comment NORMAL Ovalocytes 1+ Blood Urea Nitrogen 71 Creatinine 7.07 Random Glucose 115 Calcium Level 8.7 Phosphorus Level 6.0 Sodium Level 140 Potassium Level 3.6 Chloride Level 103 Carbon Dioxide Level 23.4 Anion Gap 14 Estimat Glomerular Filtration Rate 10 Date/Time Source Procedure Growth Status 02/23/17 13:05 Blood Peripheral Aerobic Blood Culture - Preliminary NO GROWTH IN 1 DAY Resulted 02/23/17 13:05 Blood Peripheral Anaerobic Blood Culture - Preliminary NO GROWTH IN 1 DAY Resulted 02/23/17 18:30 Stool Stool Cryptosporidium Exam Pending Received 02/23/17 18:30 Stool Stool Giardia Antigen (PAUL) Pending Received Result Diagram: 02/24/1763602/24/17636 Assessment and Plan Assessment and Plan Anal lesions in HIV patient who is an MSM: DDX: Herpetic with secondary bacterial infection, GC, Chlam, syphilis, chancroid. No wart like lesions seen. 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 Underlying depression no suicidal ideations expressed. 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 Crypto in past neg CD4 low: start Bactrim for PCP. If oral thrush ok to place on fci diflucan Continue LULU treatment; Clarithro, EMB, Rmp. Repeat AFB blood culture Fungal blood cultures Follow bacterial blood cultures Start Valtrex for anal lesions ? HSV or VZV with secondary bacterial lesions. I dont see any active herpetic lesions may be this is residual bacterial infection at this point. Start Levaquin Start Flagyl Start Zyvox oral Assess response to above on Monday. Consider wound care consult. Palliative care consult to help address goals of therapy given rapidly advanced disease with disseminated LULU, nephropathy, failure to thrive. covering for me if any change in clinical condition or positive tests please call her. Mehnaz Martines MD Feb 24, 2017 15:38
--- NOTE | 2017-02-24 16:10 | EKG ---
Date Performed: 02/24/2017 Time Performed: 09:23:07 PTAGE: 51 years EKG: Sinus rhythm NONSPECIFIC T-WAVE ABNORMALITY BORDERLINE ECG NO PREVIOUS TRACING DOCTOR: Jocelin Amador Interpretating Date/Time 02/24/2017 16:09:30
[2017-02-24] MEDS: LACTOBACILLUS ACIDOPHILUS TAB PO SCH (17:55)
[2017-02-24] MEDS: SODIUM CHLORIDE 0.9% FLUSH 10 ML FLUSH IV FLUSH SCH ×2 (17:55→20:57)
[2017-02-24] MEDS ORDERED: DIATRIZOATE MEGLUM/DIATRIZOATE SOD 9 ML CUP PO ONE (18:00)
[2017-02-24 21:13] LABS: INDIRECT BILIRUBIN 0.2 MG/DL (0.0-0.8); TOTAL BILIRUBIN ADULT 0.3 MG/DL (0.2-1.0)
[2017-02-24] MEDS: LEVOFLOXACIN 500 MG TAB PO SCH (22:35)
[2017-02-24] MEDS: metroNIDAZOLE 500 MG TAB PO SCH (22:35)
[2017-02-24] MEDS: valACYclovir HCL 500 MG TAB PO SCH (22:35)
[2017-02-24] MEDS: LINEZOLID 600 MG TAB PO SCH (22:35)
[2017-02-25] VITALS (8 sets, daily range): BP systolic 139–172; BP diastolic 82–104; PULSE 70–86; RESP 17–22; TEMP 97.6–98.2; O2SAT 99–100
[2017-02-25 01:01] LABS: CHLAMYDIA PCR NOT DETECTED (NOT DETECT); NEISSERIA PCR NOT DETECTED (NOT DETECT)
[2017-02-25] MEDS: metroNIDAZOLE 500 MG TAB PO SCH ×3 (06:11→22:30)
[2017-02-25] MEDS: VITAMIN B CMPLX/VITC/FOLIC AC CAP PO SCH (09:00)
[2017-02-25] MEDS ORDERED: DIATRIZOATE MEGLUM/DIATRIZOATE SOD 9 ML CUP PO ONE (09:45)
[2017-02-25] MEDS: RIFAMPIN 150 MG CAP PO SCH (10:32)
[2017-02-25] MEDS: LINEZOLID 600 MG TAB PO SCH ×2 (10:33→22:30)
[2017-02-25] MEDS: predniSONE 20 MG TAB PO SCH (10:33)
[2017-02-25] MEDS: LACTOBACILLUS ACIDOPHILUS TAB PO SCH ×3 (10:34→19:09)
[2017-02-25] MEDS: CLARITHROMYCIN 250 MG TAB PO SCH ×2 (10:34→22:30)
[2017-02-25] MEDS: ETHAMBUTOL HCL 400 MG TAB PO SCH (10:35)
[2017-02-25] MEDS: SODIUM CHLORIDE 0.9% FLUSH 10 ML FLUSH IV FLUSH SCH ×2 (10:35→22:30)
[2017-02-25] MEDS: FLUCONAZOLE 100 MG TAB PO SCH (12:16)
--- NOTE | 2017-02-25 13:28 | HHI.PR ---
Subjective Remarks Follow-up on patient with HIV/AIDS, ESRD on PD, anemia. 02/24/17 -Patient seen and examined. Patient reports blood in his stool for the past 2 weeks. He reports some diarrhea. He denies any hematuria. Denies any fever or chills. Denies any chest pain or dyspnea. Denies any nausea, vomiting or abdominal pain. States he follow up with his ID physician closely. Reports his buttock infection is not doing so good. 02/25/17-patient seen and examined, currently afebrile and denies any chest pain or shortness of breath. He was seen by ID yesterday pending culture report. Transfused 2 units packed red blood cell. Had HD yesterday Objective Vitals Vital Signs Date Time Temp Pulse Resp B/P (MAP) Pulse Ox O2 Delivery O2 Flow Rate FiO2 02/25/17 12:25 97.6 86 20 172/104 (126) 100 02/25/17 08:04 97.6 74 22 143/82 (102) 100 02/25/17 04:00 70 02/25/17 03:23 98.2 74 17 139/89 (106) 99 02/25/17 00:15 81 02/24/17 23:44 98.8 86 16 145/96 (112) 100 02/24/17 20:49 98.8 82 16 153/96 (115) 100 02/24/17 20:15 78 02/24/17 16:24 98.6 100 18 165/97 (119) 100 I/O 02/24/17 02/24/17 02/24/17 02/25/17 02/25/17 02/25/17 07:00 15:00 23:00 07:00 15:00 23:00 Intake Total 2000 ml 300 ml 240 ml Output Total 1500 ml 816 ml 100 ml 1057 ml Balance 500 ml -516 ml 140 ml -1057 ml Intake Oral 2000 ml 240 ml Other 300 ml Output Urine Total 100 ml Stool Total 1500 ml Peritoneal Fluid 816 ml 1057 ml # Bowel Movements 1 Result Diagram: 02/24/1763602/24/17636 Objective Remarks GENERAL: NAD SKIN: Warm and dry. Confluent lesions on buttocks HEAD: Normocephalic. EYES: No scleral icterus. No injection or drainage. NECK: Supple, trachea midline. No JVD or lymphadenopathy. CARDIOVASCULAR: Regular rate and rhythm without murmurs, gallops, or rubs. RESPIRATORY: Breath sounds equal bilaterally. No accessory muscle use. GASTROINTESTINAL: Abdomen soft, non-tender, nondistended. MUSCULOSKELETAL: No cyanosis, or edema. BACK: Nontender without obvious deformity. No CVA tenderness. A/P Problem List: (1) Anemia ICD Code: D64.9 - Anemia, unspecified (2) Transfusion reaction ICD Code: T80.92XA - Unspecified transfusion reaction, initial encounter (3) End stage renal disease on dialysis ICD Code: N18.6 - End stage renal disease; Z99.2 - Dependence on renal dialysis Status: Chronic Assessment and Plan GIB Hematochezia - patient with bloody stools x 2 weeks - GI following, appreciate assistance. Panendoscopy 02/24/17 Diarrhea - stool studies and C diff PCR negative Anemia - critical requiring blood transfusion - Hgb 6.8/HCT 20.6 - baseline hgb is around 8 - s/p 2units PRBCs with improvement of H/H to 8.6/25.6 Transfusion reaction - Blood bank notified of transfusion reaction - Acetaminophen 650 mg p.o., Solumedrol 125 mg IVP, and Diphenhydramine 50 mg p.o. - Will need premedication prior to future transfusions ESRD on peritoneal dialysis - monitor renal function - avoid nephrotoxins - nephrology consult, appreciate assistance HIV/AIDS - hx of disseminated MAC - Continue home medications Clarithromycin, Ethambutol and Rifampin, renally dosed - ID consulted, appreciate assistance Check CD4, VL, GC, Chlam, RPR,AFB blood culture , fungal and bacteria blood cultures Continue Bactrim for PCP, Valtrex for anal lesions ,Levaquin, Flagyl, Zyvox oral Assess response to above on Monday. Consider wound care consult. DVT prophylaxis - SCDs/TEDs Change admission to inpatient Problem Qualifiers (1) Anemia: Qualified Codes: D64.9 - Anemia, unspecified Nelson Michelle MD Feb 25, 2017 13:28
--- NOTE | 2017-02-25 14:23 | HHI.NPPN ---
Subjective History of Present Illness 51-year-old male with past medical history of HIV, chronic anemia, recent history of LLUU infection, history of chronic anemia, end-stage renal disease on peritoneal dialysis, now was sent to the emergency department because of very low hemoglobin. I was called to see the patient for management of dialysis. The patient has been on hemodialysis and recently started on peritoneal dialysis and has been doing it at home. Additional Remarks Patient is alert, no SOB, no abd. pain, feeling better. Review of Systems General Constitutional: Fatigue Objective Data Data 02/25/17 02/26/17 19:00 07:00 Output Total 1057 ml Balance -1057 ml Peritoneal Fluid 1057 ml # Bowel Movements 1 Vital Signs Date Time Temp Pulse Resp B/P (MAP) Pulse Ox O2 Delivery O2 Flow Rate FiO2 02/25/17 12:25 97.6 86 20 172/104 (126) 100 02/25/17 08:04 97.6 74 22 143/82 (102) 100 02/25/17 04:00 70 02/25/17 03:23 98.2 74 17 139/89 (106) 99 02/25/17 00:15 81 02/24/17 23:44 98.8 86 16 145/96 (112) 100 02/24/17 20:49 98.8 82 16 153/96 (115) 100 02/24/17 20:15 78 02/24/17 16:24 98.6 100 18 165/97 (119) 100 -: 02/24/17 0637 02/24/17 0637 Microbiology 02/24/17 Blood Fungal Culture, Received Pending 02/24/17 Blood Fungal Culture, Received Pending 02/24/17 Mycobacterial Culture, Received Pending Physical Exam General Appearance: No Acute Distress, Comfortable Eyes Eye Exam: Pupils Equal Neck Neck Exam: Neck Supple Pulmonary Resp Exam: Breath Sounds Equal, No Distress, Rhonchi, Decreased Bases Cardiology CV Exam: Regular, Normal Sinus Rhythm Gastrointestinal/Abdomen GI Exam: Soft, Non-Tender, Bowel Sounds Present Extremeties Extremities Exam: Trace Edema Neurologic Neuro Exam: Alert, Awake, Oriented Psychiatric Psych Exam: Appropriate Responses Assessment/Plan Assessment Summary: Anemia of CKD, Hypertension, End Stage Renal Disease Problem List: (1) HIV (human immunodeficiency virus infection) ICD Codes: B20 - Human immunodeficiency virus [HIV] disease (2) Anemia ICD Codes: D64.9 - Anemia, unspecified (3) Transfusion reaction ICD Codes: T80.92XA - Unspecified transfusion reaction, initial encounter (4) Weakness ICD Codes: R53.1 - Weakness (5) Malnutrition ICD Codes: E46 - Unspecified protein-calorie malnutrition (6) End stage renal disease on dialysis ICD Codes: N18.6 - End stage renal disease; Z99.2 - Dependence on renal dialysis Status: Chronic Plan Patient has stable Hgb. Now has no active bleeding. GI has seen the patient. EGD and colonoscopy done and results noted. Biopsy done. PD is working and fluid is clear. Follow Hgb., if D/C, will follow as out patient. Remain afebrile now. Problem Qualifiers (1) Anemia: Qualified Codes: D64.9 - Anemia, unspecified Kwadwo Shah MD Feb 25, 2017 14:23
[2017-02-25] MEDS ORDERED: IOHEXOL 350 MG/ML 10 ML VIAL (for RAD DIAG) IVCONTRAST ONE (14:42)
--- NOTE | 2017-02-25 15:04 | RADRPT ---
EXAM DATE/TIME: 02/25/2017 14:29 [facility] COMPARISON: CT ABDOMEN & PELVIS W/O CONTRAST, November 05, 2016, 17:19. INDICATIONS : Diffuse abdomen pain for one week. ORAL CONTRAST: Prescribed oral contrast ingested. RADIATION DOSE: 5.36 CTDIvol (mGy) MEDICAL HISTORY : Hypertension. HIV. SURGICAL HISTORY : None. ENCOUNTER: Initial ACUITY: 1 week PAIN SCALE: 6/10 LOCATION: Bilateral abdomen TECHNIQUE: Volumetric scanning of the abdomen and pelvis was performed. Using automated exposure control and adjustment of the mA and/or kV according to patient size, radiation dose was kept as low as reasonably achievable to obtain optimal diagnostic quality images. DICOM format image data is av ailable electronically for review and comparison. FINDINGS: LOWER LUNGS: Mild stable atelectasis in the anterior right lung base. LIVER: 1.3 cm hypodense lesion in the posterior right lobe of liver near the dome which appears l ess prominent than on prior examination. Liver otherwise appears unremarkable without evidence for vo lume loss. Gallbladder is grossly unremarkable by CT. SPLEEN: Normal size without lesion. PANCREAS: Within normal limits. KIDNEYS: Stable subcentimeter cyst in the anterior mid right kidney. Previously noted 4 mm calcif ied calculus in the right renal pelvis is not demonstrated. No significant hydronephrosis or radiopaq ue renal calculi. ADRENAL GLANDS: Within normal limits. VASCULAR: There is no aortic aneurysm. BOWEL/MESENTERY: The stomach, small bowel, and colon demonstrate no acute abnormality. No pneumat osis. There is a peritoneal dialysis catheter in place. Tracer free fluid in the left lower quadrant . There is however trace amount of perihepatic fluid and small amount of free air primarily along the anterior perihepatic region. ABDOMINAL WALL: Within normal limits. RETROPERITONEUM: There is no lymphadenopathy. BLADDER: No wall thickening or mass. REPRODUCTIVE: Within normal limits. INGUINAL: There is no lymphadenopathy or hernia. MUSCULOSKELETAL: Within normal limits for patient age. CONCLUSION: 1. Patent osseous catheter in place with trace free fluid in the left lower quadrant and trace perihe patic fluid with smaller free air primarily along the anterior perihepatic region. Bowel appears unre markable without evidence for pneumatosis. Although the air may have been introduced during peritone al dialysis, infection cannot be excluded. Clinical correlation for peritoneal infection is recommend ed. There is insufficient volume of ascites fluid at this time for imaged guided paracentesis. 2. 1.3 cm hypodense lesion in the dome of the liver appears smaller in comparison to recent exam with out significant enhancement. This lesion is too small to fully characterize. 3. Assuming interval passage of 4 mm right renal calculus. No radiopaque renal calculi or evidence fo r obstructive uropathy at this time. Ryan Yoder MD on February 25, 2017 at 14:49 Board Certified Radiologist. This report was verified electronically.
[2017-02-25 15:43] LABS: AUTOMATED NEUTROPHIL # 8.7 TH/MM3 (1.8-7.7); BASOPHIL % 0.1 % (0.0-2.0); EOSINOPHIL % 0.3 % (0.0-4.0); HEMATOCRIT 23.2 % (39.0-51.0); LYMPHOCYTE # 0.2 TH/MM3 (1.0-4.8); MEAN CELL VOLUME 84.6 FL (80.0-100.0); MEAN CORPUSCULAR HEMOGLOBIN 29.1 PG (27.0-34.0); MEAN CORPUSCULAR HGB CONC 34.4 % (32.0-36.0); MONO % 4.8 % (0.0-8.0); NEUT % 92.8 % (16.0-70.0); PLATELET COUNT 169 TH/MM3 (150-450); RED BLOOD COUNT 2.74 MIL/MM3 (4.50-5.90); RED CELL DISTRIBUTION WIDTH 21.7 % (11.6-17.2); WHITE BLOOD COUNT 9.4 TH/MM3 (4.0-11.0)
[2017-02-25 15:45] LABS: HEMO FLAGS AUTO DIFF
[2017-02-25 15:48] LABS: BICARBONATE 25.3 MEQ/L (21.0-32.0); POTASSIUM 3.5 MEQ/L (3.5-5.1)
[2017-02-25 16:11] LABS: OVALOCYTES 1+ (NORMAL); PLATELET ESTIMATE SMEAR NORMAL (NORMAL); PLATELET MORPHOLOGY NORMAL (NORMAL); SCAN/DIFF AUTO DIFF CONFIRMED
[2017-02-25] MEDS: valACYclovir HCL 500 MG TAB PO SCH (22:30)
[2017-02-26] VITALS (11 sets, daily range): BP systolic 146–175; BP diastolic 82–100; PULSE 59–88; RESP 18–22; TEMP 97.8–99.2; O2SAT 100
[2017-02-26] MEDS: metroNIDAZOLE 500 MG TAB PO SCH ×3 (06:05→22:10)
--- NOTE | 2017-02-26 08:28 | HHI.GIFU ---
Subjective Remarks Pt resting in bed comfortably. Denies any abdominal pain, N/V, blood in stool Reports normal BM yesterday, denies rectal pain. (Lissy Krueger) Objective Vitals I&O Vital Signs Date Time Temp Pulse Resp B/P (MAP) Pulse Ox O2 Delivery O2 Flow Rate FiO2 02/26/17 07:32 98.4 84 22 175/100 (125) 100 02/26/17 04:15 59 02/26/17 03:27 97.8 67 18 148/90 (109) 100 02/26/17 00:10 98.1 84 18 146/92 (110) 100 02/26/17 00:00 69 02/25/17 20:52 98.2 75 18 144/88 (106) 100 02/25/17 20:15 75 02/25/17 16:05 98.2 82 18 157/97 (117) 100 02/25/17 12:25 97.6 86 20 172/104 (126) 100 I/O 02/25/17 02/25/17 02/25/17 02/26/17 02/26/17 02/26/17 07:00 15:00 23:00 07:00 15:00 23:00 Intake Total 240 ml Output Total 100 ml 1057 ml 1200 ml Balance 140 ml -1057 ml -1200 ml Intake Oral 240 ml Output Urine Total 100 ml Peritoneal Fluid 1057 ml 1200 ml # Bowel Movements 1 Laboratory Laboratory Tests Test 02/25/17 13:43 White Blood Count 9.4 Red Blood Count 2.74 Hemoglobin 8.0 Hematocrit 23.2 Mean Corpuscular Volume 84.6 Mean Corpuscular Hemoglobin 29.1 Mean Corpuscular Hemoglobin Concent 34.4 Red Cell Distribution Width 21.7 Platelet Count 169 Mean Platelet Volume 8.4 Neutrophils (%) (Auto) 92.8 Lymphocytes (%) (Auto) 2.0 Monocytes (%) (Auto) 4.8 Eosinophils (%) (Auto) 0.3 Basophils (%) (Auto) 0.1 Neutrophils # (Auto) 8.7 Lymphocytes # (Auto) 0.2 Monocytes # (Auto) 0.4 Eosinophils # (Auto) 0.0 Basophils # (Auto) 0.0 CBC Comment AUTO DIFF Differential Comment AUTO DIFF CONFIRMED Platelet Estimate NORMAL Platelet Morphology Comment NORMAL Ovalocytes 1+ Blood Urea Nitrogen 64 Creatinine 6.67 Random Glucose 105 Calcium Level 7.9 Sodium Level 135 Potassium Level 3.5 Chloride Level 100 Carbon Dioxide Level 25.3 Anion Gap 10 Estimat Glomerular Filtration Rate 11 Date/Time Source Procedure Growth Status 02/24/17 22:57 Blood Peripheral Blood Fungal Culture Pending Received 02/24/17 22:57 Blood Peripheral Blood Fungal Culture Pending Received 02/23/17 18:30 Stool Stool Cryptosporidium Exam Pending Received 02/23/17 18:30 Stool Stool Giardia Antigen (PAUL) Pending Received Imaging Last Impressions Abdomen/Pelvis CT 02/24/17 0000 Signed Impressions: Service Date/Time: Saturday, February 25, 2017 14:29 - CONCLUSION: 1. Patent osseous catheter in place with trace free fluid in the left lower quadrant and trace perihepatic fluid with smaller free air primarily along the anterior perihepatic region. Bowel appears unremarkable without evidence for pneumatosis. Although the air may have been introduced during peritoneal dialysis, infection cannot be excluded. Clinical correlation for peritoneal infection is recommended. There is insufficient volume of ascites fluid at this time for imaged guided paracentesis. 2. 1.3 cm hypodense lesion in the dome of the liver appears smaller in comparison to recent exam without significant enhancement. This lesion is too small to fully characterize. 3. Assuming interval passage of 4 mm right renal calculus. No radiopaque renal calculi or evidence for obstructive uropathy at this time. Ryan Yoder MD Physical Exam HEENT: Normocephalic; atraumatic; no jaundice. CHEST: CTA CARDIAC: RRR ABDOMEN: Soft, nondistended, nontender; no hepatosplenomegaly; bowel sounds are present in all four quadrants. EXTREMITIES: No clubbing, cyanosis, or edema. SKIN: Normal; no rash; no jaundice. HEARING AND SPEECH ASSISTANT: No focal deficits; alert and oriented times three. (Lissy Krueger) Assessment and Plan Plan ASSESSMENT - Anemia, hgb 6.8 on admission, likely multifactorial. EGD (02/24) --> Gastritis , esophagitis, hiatal hernia. Pathology pending. Repeat exam recommended in 3 years. PPI. 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 ID consulted. Repeat exam recommended in 5 years. Received 2 Units PRBC. H/H yesterday 8.0/23.2. Labs from today pending. - Diarrhea- Reported multiple abx recently. C. Diff negative. Stool culture negative for enteric pathogens. - ESRD on PD, HIV PLAN - PPI - CARISSA - Await pathology from EGD - Monitor HH - Transfuse as needed - Further recommendations to follow based on results of above Pt was seen and examined by myself and Dr. Bailey and his note has been written on her behalf (Lissy Krueger) Physician Comments seen, examined agree with above ct noted ID consult appreciated Imodium PRN for diarrhea gi will sign off call us as needed consider palliative care consult (Sandy Bailey MD) Lissy Krueger Feb 26, 2017 08:28 Sandy Bailey MD Feb 26, 2017 18:03
[2017-02-26] MEDS: VITAMIN B CMPLX/VITC/FOLIC AC CAP PO SCH (09:00)
[2017-02-26] MEDS: SODIUM CHLORIDE 0.9% FLUSH 10 ML FLUSH IV FLUSH SCH ×2 (09:26→21:00)
[2017-02-26] MEDS: LACTOBACILLUS ACIDOPHILUS TAB PO SCH ×3 (09:26→18:26)
[2017-02-26] MEDS: PANTOPRAZOLE SOD 40 MG DELAYED RELEASE TAB PO SCH (09:26)
[2017-02-26] MEDS: predniSONE 20 MG TAB PO SCH (09:26)
[2017-02-26] MEDS: CLARITHROMYCIN 250 MG TAB PO SCH ×2 (09:26→22:11)
[2017-02-26] MEDS: LINEZOLID 600 MG TAB PO SCH ×2 (09:27→22:10)
[2017-02-26] MEDS: RIFAMPIN 150 MG CAP PO SCH (09:27)
[2017-02-26] MEDS: ETHAMBUTOL HCL 400 MG TAB PO SCH (09:27)
--- NOTE | 2017-02-26 12:22 | HHI.PR ---
Subjective Remarks Follow-up on patient with HIV/AIDS, ESRD on PD, anemia. 02/24/17 -Patient seen and examined. Patient reports blood in his stool for the past 2 weeks. He reports some diarrhea. He denies any hematuria. Denies any fever or chills. Denies any chest pain or dyspnea. Denies any nausea, vomiting or abdominal pain. States he follow up with his ID physician closely. Reports his buttock infection is not doing so good. 02/25/17-patient seen and examined, currently afebrile and denies any chest pain or shortness of breath. He was seen by ID yesterday pending culture report. Transfused 2 units packed red blood cell. Had HD yesterday 02/26/17-patient seen and examined, afebrile, denies any GI bleed. He is getting and tolerated nightly peritoneal dialysis. He Is wondering when he can be discharged home Objective Vitals Vital Signs Date Time Temp Pulse Resp B/P (MAP) Pulse Ox O2 Delivery O2 Flow Rate FiO2 02/26/17 11:41 98.2 88 22 146/92 (110) 100 02/26/17 09:24 152/82 (105) 02/26/17 07:32 98.4 84 22 175/100 (125) 100 02/26/17 04:15 59 02/26/17 03:27 97.8 67 18 148/90 (109) 100 02/26/17 00:10 98.1 84 18 146/92 (110) 100 02/26/17 00:00 69 02/25/17 20:52 98.2 75 18 144/88 (106) 100 02/25/17 20:15 75 02/25/17 16:05 98.2 82 18 157/97 (117) 100 02/25/17 12:25 97.6 86 20 172/104 (126) 100 I/O 02/25/17 02/25/17 02/25/17 02/26/17 02/26/17 02/26/17 07:00 15:00 23:00 07:00 15:00 23:00 Intake Total 240 ml Output Total 100 ml 1057 ml 1400 ml Balance 140 ml -1057 ml -1400 ml Intake Oral 240 ml Output Urine Total 100 ml 200 ml Peritoneal Fluid 1057 ml 1200 ml # Bowel Movements 1 1 Result Diagram: 02/25/17 1343 02/25/17 1343 Imaging Last Impressions Abdomen/Pelvis CT 02/24/17 0000 Signed Impressions: Service Date/Time: Saturday, February 25, 2017 14:29 - CONCLUSION: 1. Patent osseous catheter in place with trace free fluid in the left lower quadrant and trace perihepatic fluid with smaller free air primarily along the anterior perihepatic region. Bowel appears unremarkable without evidence for pneumatosis. Although the air may have been introduced during peritoneal dialysis, infection cannot be excluded. Clinical correlation for peritoneal infection is recommended. There is insufficient volume of ascites fluid at this time for imaged guided paracentesis. 2. 1.3 cm hypodense lesion in the dome of the liver appears smaller in comparison to recent exam without significant enhancement. This lesion is too small to fully characterize. 3. Assuming interval passage of 4 mm right renal calculus. No radiopaque renal calculi or evidence for obstructive uropathy at this time. Ryan Yoder MD Objective Remarks GENERAL: NAD SKIN: Warm and dry. Confluent lesions on buttocks HEAD: Normocephalic. EYES: No scleral icterus. No injection or drainage. NECK: Supple, trachea midline. No JVD or lymphadenopathy. CARDIOVASCULAR: Regular rate and rhythm without murmurs, gallops, or rubs. RESPIRATORY: Breath sounds equal bilaterally. No accessory muscle use. GASTROINTESTINAL: Abdomen soft, non-tender, nondistended. MUSCULOSKELETAL: No cyanosis, or edema. BACK: Nontender without obvious deformity. No CVA tenderness. A/P Problem List: (1) Anemia ICD Code: D64.9 - Anemia, unspecified (2) Transfusion reaction ICD Code: T80.92XA - Unspecified transfusion reaction, initial encounter (3) End stage renal disease on dialysis ICD Code: N18.6 - End stage renal disease; Z99.2 - Dependence on renal dialysis Status: Chronic Assessment and Plan 51-year-old man with GIB Hematochezia - Transfused 2 units packed red blood cell and status post Panendoscopy 02/24/17 Appreciate input from GI Diarrhea - stool studies and C diff PCR negative Anemia - critical requiring blood transfusion - Hgb 6.8/HCT 20.6 - baseline hgb is around 8 - s/p 2units PRBCs with improvement of H/H to 8.6/25.6 ESRD on peritoneal dialysis - monitor renal function - avoid nephrotoxins - nephrology consult appreciated HIV/AIDS - hx of disseminated MAC - Continue home medications Clarithromycin, Ethambutol and Rifampin, renally dosed - ID consulted, appreciate assistance Check CD4, VL, GC, Chlam, RPR,AFB blood culture , fungal and bacteria blood cultures Continue Bactrim for PCP, Valtrex for anal lesions ,Levaquin, Flagyl, Zyvox oral Assess response to above on Monday02/27/17. Consider wound care consult. DVT prophylaxis - SCDs/TEDs Problem Qualifiers (1) Anemia: Qualified Codes: D64.9 - Anemia, unspecified Nelson Michelle MD Feb 26, 2017 12:22
[2017-02-26] MEDS: FLUCONAZOLE 100 MG TAB PO SCH (13:04)
[2017-02-26 13:43] LABS: AUTOMATED NEUTROPHIL # 7.6 TH/MM3 (1.8-7.7); BASOPHIL % 0.2 % (0.0-2.0); EOSINOPHIL % 0.1 % (0.0-4.0); HEMATOCRIT 23.4 % (39.0-51.0); LYMPH % 1.8 % (9.0-44.0); LYMPHOCYTE # 0.1 TH/MM3 (1.0-4.8); MEAN CELL VOLUME 84.1 FL (80.0-100.0); MEAN CORPUSCULAR HEMOGLOBIN 29.1 PG (27.0-34.0); MEAN CORPUSCULAR HGB CONC 34.6 % (32.0-36.0); MONO % 4.1 % (0.0-8.0); NEUT % 93.8 % (16.0-70.0); PLATELET COUNT 163 TH/MM3 (150-450); RED BLOOD COUNT 2.78 MIL/MM3 (4.50-5.90); RED CELL DISTRIBUTION WIDTH 21.4 % (11.6-17.2); WHITE BLOOD COUNT 8.1 TH/MM3 (4.0-11.0)
[2017-02-26 13:45] LABS: HEMO FLAGS AUTO DIFF
[2017-02-26 14:10] LABS: BICARBONATE 24.1 MEQ/L (21.0-32.0); POTASSIUM 3.3 MEQ/L (3.5-5.1)
[2017-02-26 14:23] LABS: OVALOCYTES 1+ (NORMAL); SCAN/DIFF AUTO DIFF CONFIRMED; TOXIC GRANULATION 2+ (NORMAL)
[2017-02-26] MEDS ORDERED: POTASSIUM CHLORIDE 20 MEQ CONTROLLED RELEASE TAB PO ONE (14:30)
--- NOTE | 2017-02-26 19:25 | HHI.NPPN ---
Subjective History of Present Illness 51-year-old male with past medical history of HIV, chronic anemia, recent history of LULU infection, history of chronic anemia, end-stage renal disease on peritoneal dialysis, now was sent to the emergency department because of very low hemoglobin. I was called to see the patient for management of dialysis. The patient has been on hemodialysis and recently started on peritoneal dialysis and has been doing it at home. Additional Remarks Patient is alert, no SOB, no abd. pain, no complain. Review of Systems General Constitutional: Fatigue Objective Data Data 02/26/17 02/27/17 19:00 07:00 Output Total 1400 ml Balance -1400 ml Output Urine Total 200 ml Peritoneal Fluid 1200 ml # Bowel Movements 1 Vital Signs Date Time Temp Pulse Resp B/P (MAP) Pulse Ox O2 Delivery O2 Flow Rate FiO2 02/26/17 15:37 98.2 74 20 150/96 (114) 100 Automatic Cuff 02/26/17 11:41 98.2 88 22 146/92 (110) 100 02/26/17 09:24 152/82 (105) 02/26/17 07:32 98.4 84 22 175/100 (125) 100 02/26/17 04:15 59 02/26/17 03:27 97.8 67 18 148/90 (109) 100 02/26/17 00:10 98.1 84 18 146/92 (110) 100 02/26/17 00:00 69 02/25/17 20:52 98.2 75 18 144/88 (106) 100 02/25/17 20:15 75 -: 02/26/17 1320 02/26/17 1320 Physical Exam General Appearance: No Acute Distress, Comfortable Eyes Eye Exam: Pupils Equal Neck Neck Exam: Neck Supple Pulmonary Resp Exam: Breath Sounds Equal, No Distress, Rhonchi, Decreased Bases Cardiology CV Exam: Regular, Normal Sinus Rhythm Gastrointestinal/Abdomen GI Exam: Soft, Non-Tender, Bowel Sounds Present Extremeties Extremities Exam: Trace Edema Neurologic Neuro Exam: Alert, Awake, Oriented Psychiatric Psych Exam: Appropriate Responses Assessment/Plan Assessment Summary: Anemia of CKD, Hypertension, End Stage Renal Disease Problem List: (1) HIV (human immunodeficiency virus infection) ICD Codes: B20 - Human immunodeficiency virus [HIV] disease (2) Anemia ICD Codes: D64.9 - Anemia, unspecified (3) Transfusion reaction ICD Codes: T80.92XA - Unspecified transfusion reaction, initial encounter (4) Weakness ICD Codes: R53.1 - Weakness (5) Malnutrition ICD Codes: E46 - Unspecified protein-calorie malnutrition (6) End stage renal disease on dialysis ICD Codes: N18.6 - End stage renal disease; Z99.2 - Dependence on renal dialysis Status: Chronic Plan Patient has stable Hgb. Now has no active bleeding. GI has seen the patient. EGD and colonoscopy done and results noted. Biopsy done. PD is working and fluid is clear. Hgb. is stable. Possible D/C in AM. Problem Qualifiers (1) Anemia: Qualified Codes: D64.9 - Anemia, unspecified Kwadwo Shah MD Feb 26, 2017 19:25
[2017-02-26] MEDS: valACYclovir HCL 500 MG TAB PO SCH (22:11)
[2017-02-26] MEDS: LEVOFLOXACIN 500 MG TAB PO SCH (22:12)
[2017-02-27] VITALS: PULSE 87
[2017-02-27 04:16] VITALS: PULSE 65
[2017-02-27 04:45] VITALS: BP 161/99; PULSE 75; RESP 18; TEMP 97.9; O2SAT 100
[2017-02-27 08:26] VITALS: BP 151/93; PULSE 78; RESP 20; TEMP 97.6; O2SAT 100
[2017-02-27] MEDS ORDERED: POTASSIUM CHLORIDE 20 MEQ CONTROLLED RELEASE TAB PO ONE (09:00)
[2017-02-27] MEDS: SODIUM CHLORIDE 0.9% FLUSH 10 ML FLUSH IV FLUSH SCH (09:00)
[2017-02-27] MEDS: predniSONE 20 MG TAB PO SCH (09:10)
[2017-02-27] MEDS: PANTOPRAZOLE SOD 40 MG DELAYED RELEASE TAB PO SCH (09:11)
[2017-02-27] MEDS: VITAMIN B CMPLX/VITC/FOLIC AC CAP PO SCH (09:11)
[2017-02-27] MEDS: CLARITHROMYCIN 250 MG TAB PO SCH (09:11)
[2017-02-27] MEDS: RIFAMPIN 150 MG CAP PO SCH (09:11)
[2017-02-27] MEDS: LACTOBACILLUS ACIDOPHILUS TAB PO SCH (09:11)
[2017-02-27] MEDS: ETHAMBUTOL HCL 400 MG TAB PO SCH (09:12)
[2017-02-27] MEDS: LINEZOLID 600 MG TAB PO SCH (09:13)
[2017-02-27] MEDS: metroNIDAZOLE 500 MG TAB PO SCH (09:18)
--- NOTE | 2017-02-27 10:30 | HHI.IDPN ---
Subjective Subjective Remarks Mr. Hu is a 51-year-old male with a history of HIV/AIDS, end-stage renal disease on peritoneal dialysis, and hypertension who presented to the emergency department on 02/22/2017 after receiving a call from [facility] instructing him to go to the emergency room to receive a blood transfusion because of abnormal lab values. He recently had a lengthy hospitalization here November 05, 2016 through 01/18/2017 for sepsis and renal failure. Patient was recently seen by Dr.Reba Paul as outpatient for the very first time and was prescribed HAART regimen but patient did not fill these medications. informed me that he has been on LULU treatment reportedly since Oct 2016 when he was last seen by ID in hospital. Patient lives with his niece and she helps him sometimes with his pericare. He reports he has had perianal lesions for last few months and they get worse when he lays on his back. informed me that he was prescribed Valtrex but unsure if he is taking it. saw patient in consultation for anemia and consulted ID for evaluation and Mment of anal lesions in HIV/AIDS pt. Overnight events reviewed No fevers No diffuse rash No diarrhea Anogenital region with less discharge and soreness. Antibiotics LULU regimen Levaquin Zyvox flagyl Diflucan Lines Line sites with no e.o infection Past Medical History reviewed Allergies: Coded Allergies: No Known Allergies (Unverified Allergy, Unknown, 02/22/17) Objective . Vital Signs Date Time Temp Pulse Resp B/P (MAP) Pulse Ox O2 Delivery O2 Flow Rate FiO2 02/27/17 08:26 97.6 78 20 151/93 (112) 100 02/27/17 04:45 97.9 75 18 161/99 (119) 100 Manual Cuff/Auscultation 02/27/17 04:16 65 02/27/17 00:00 87 02/26/17 23:52 98.7 81 18 148/91 (110) 100 02/26/17 20:51 99.2 85 18 149/93 (111) 100 02/26/17 20:00 61 02/26/17 15:37 98.2 74 20 150/96 (114) 100 Automatic Cuff 02/26/17 11:41 98.2 88 22 146/92 (110) 100 . Laboratory Tests Test 02/25/17 13:43 02/26/17 13:20 White Blood Count 9.4 TH/MM3 8.1 TH/MM3 Red Blood Count 2.74 MIL/MM3 2.78 MIL/MM3 Hemoglobin 8.0 GM/DL 8.1 GM/DL Hematocrit 23.2 % 23.4 % Mean Corpuscular Volume 84.6 FL 84.1 FL Mean Corpuscular Hemoglobin 29.1 PG 29.1 PG Mean Corpuscular Hemoglobin Concent 34.4 % 34.6 % Red Cell Distribution Width 21.7 % 21.4 % Platelet Count 169 TH/MM3 163 TH/MM3 Mean Platelet Volume 8.4 FL 8.5 FL Neutrophils (%) (Auto) 92.8 % 93.8 % Lymphocytes (%) (Auto) 2.0 % 1.8 % Monocytes (%) (Auto) 4.8 % 4.1 % Eosinophils (%) (Auto) 0.3 % 0.1 % Basophils (%) (Auto) 0.1 % 0.2 % Neutrophils # (Auto) 8.7 TH/MM3 7.6 TH/MM3 Lymphocytes # (Auto) 0.2 TH/MM3 0.1 TH/MM3 Monocytes # (Auto) 0.4 TH/MM3 0.3 TH/MM3 Eosinophils # (Auto) 0.0 TH/MM3 0.0 TH/MM3 Basophils # (Auto) 0.0 TH/MM3 0.0 TH/MM3 CBC Comment AUTO DIFF AUTO DIFF Differential Comment AUTO DIFF CONFIRMED AUTO DIFF CONFIRMED Platelet Estimate NORMAL Platelet Morphology Comment NORMAL Ovalocytes 1+ 1+ Toxic Granulation 2+ Laboratory Tests Test 02/25/17 13:43 02/26/17 13:20 Blood Urea Nitrogen 64 MG/DL 70 MG/DL Creatinine 6.67 MG/DL 6.69 MG/DL Random Glucose 105 MG/DL 148 MG/DL Calcium Level 7.9 MG/DL 7.9 MG/DL Sodium Level 135 MEQ/L 134 MEQ/L Potassium Level 3.5 MEQ/L 3.3 MEQ/L Chloride Level 100 MEQ/L 99 MEQ/L Carbon Dioxide Level 25.3 MEQ/L 24.1 MEQ/L Anion Gap 10 MEQ/L 11 MEQ/L Estimat Glomerular Filtration Rate 11 ML/MIN 11 ML/MIN Microbiology Date/Time Source Procedure Growth Status 02/24/17 22:57 Blood Peripheral Blood Fungal Culture Pending Received 02/24/17 22:57 Blood Peripheral Blood Fungal Culture Pending Received 02/24/17 22:57 Blood Peripheral Mycobacterial Culture Pending Received Imaging Last Impressions Abdomen/Pelvis CT 02/24/17 0000 Signed Impressions: Service Date/Time: Saturday, February 25, 2017 14:29 - CONCLUSION: 1. Patent osseous catheter in place with trace free fluid in the left lower quadrant and trace perihepatic fluid with smaller free air primarily along the anterior perihepatic region. Bowel appears unremarkable without evidence for pneumatosis. Although the air may have been introduced during peritoneal dialysis, infection cannot be excluded. Clinical correlation for peritoneal infection is recommended. There is insufficient volume of ascites fluid at this time for imaged guided paracentesis. 2. 1.3 cm hypodense lesion in the dome of the liver appears smaller in comparison to recent exam without significant enhancement. This lesion is too small to fully characterize. 3. Assuming interval passage of 4 mm right renal calculus. No radiopaque renal calculi or evidence for obstructive uropathy at this time. Ryan Yoder MD Physical Exam GENERAL: Thin built cachectic appearing male patient, in no apparent distress. SKIN: No generalized rashes, ecchymoses or lesions. Cool and dry. HEAD: Atraumatic. Normocephalic. No temporal or scalp tenderness. EYES: Pupils equal round and reactive. Extraocular motions intact. No scleral icterus. No injection or drainage. ENT: Nose without bleeding, purulent drainage or septal hematoma. Throat without erythema, tonsillar hypertrophy or exudate. Uvula midline. Airway patent. NECK: Trachea midline. Supple, nontender, no meningeal signs. CARDIOVASCULAR: Regular rate and rhythm without murmurs, gallops, or rubs. RESPIRATORY: Clear to auscultation. Breath sounds equal bilaterally. No wheezes , rales, or rhonchi. GASTROINTESTINAL: Abdomen soft, non-tender, nondistended. MUSCULOSKELETAL: Extremities without clubbing, cyanosis, or edema. No joint tenderness, effusion, or edema noted. No calf tenderness. Negative Homans sign bilaterally. NEUROLOGICAL: Awake and alert. Normal speech. Buttock and part of the posterior scrotal sac with confluent skin lesions with yellowish purulent drainage. Psych cooperative IV line sites with no e.o infection Assessment & Plan Remarks Anal lesions in HIV patient who is an MSM: DDX: Herpetic with secondary bacterial infection, GC, Chlam, syphilis, chancroid. No wart like lesions seen. 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 Underlying depression no suicidal ideations expressed. 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 Continue Valtrex. Start Doxy oral. DC Levaquin, Zyvox, Flagyl. 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 Follow AFB blood culture Fungal blood cultures Follow bacterial blood cultures d/w : ok to DC home from ID standpoint. Will sign off please call back if any change in condition or questions. Mehnaz Martines MD Feb 27, 2017 10:30
[2017-02-27] MEDS ORDERED: DOXY100T PO (10:38)
[2017-02-27] MEDS ORDERED: DIFL100T PO (10:38)
[2017-02-27] MEDS ORDERED: Ethambutol PO (10:38)
[2017-02-27] MEDS ORDERED: CLAR250T PO (10:38)
[2017-02-27] MEDS ORDERED: VALT500T PO (10:38)
[2017-02-27] MEDS ORDERED: SULF1TAB23 PO (10:38)
[2017-02-27] MEDS ORDERED: RIFA150C2 PO (10:38)
--- NOTE | 2017-02-27 11:13 | HHI.DS ---
Discharge Summary Admission Date Feb 22, 2017 at 20:12 Discharge Date: Feb 27, 2017 Admitting Diagnosis anemia, ESRD (1) Anemia ICD Code: D64.9 - Anemia, unspecified Diagnosis: Secondary (2) Transfusion reaction ICD Code: T80.92XA - Unspecified transfusion reaction, initial encounter Diagnosis: Secondary (3) End stage renal disease on dialysis ICD Code: N18.6 - End stage renal disease; Z99.2 - Dependence on renal dialysis Diagnosis: Secondary Status: Chronic (4) HIV (human immunodeficiency virus infection) ICD Code: B20 - Human immunodeficiency virus [HIV] disease Diagnosis: Secondary (5) Hypertension ICD Code: I10 - Essential (primary) hypertension Diagnosis: Secondary (6) Gastrointestinal bleed ICD Code: K92.2 - Gastrointestinal hemorrhage, unspecified Diagnosis: Secondary Procedures Colonoscopy and EGD 02/24 Brief History - From Admission Mr. Hu is a 51-year-old male with a history of HIV/AIDS, end-stage renal disease on peritoneal dialysis, and hypertension who presented to the emergency department on 02/22/2017 after receiving a call from [facility] instructing him to go to the emergency room to receive a blood transfusion because of abnormal lab values. He recently had a lengthy hospitalization here November 05, 2016 through 01/18/2017 for sepsis and renal failure. The patient is seen in the CDU. He is initially hiding under his blankets upon entering the room. He has a blood transfusion in progress and reports feeling cold. Rigors are noted and checked his temperature. His temperature reading is 103.1 oral and I stopped his blood transfusion and discussed with Dr. Jimenez and his bedside RN. The patient is supposed received peritoneal dialysis for that is not occurred as of the time of my visit. I asked the bedside RN to call the software integration developer dialysis nurse for assistance with setting up PD. The patient reports feeling cold but otherwise denies shortness of breath or chest pain. He denies black stool but reports that stools are discolored red and that his last abnormal stool occurred yesterday. He states he was feeling fine prior to this and denies any fevers, chills, shortness of breath, cough, chest pain, nausea, vomiting, or diarrhea. CBC/BMP: 02/26/17 1320 02/26/17 1320 Significant Findings Laboratory Tests Test 02/24/17 16:10 02/24/17 22:41 02/25/17 13:43 02/26/17 13:20 Red Blood Count 2.74 MIL/MM3 (4.50-5.90) 2.78 MIL/MM3 (4.50-5.90) Hemoglobin 8.0 GM/DL (13.0-17.0) 8.1 GM/DL (13.0-17.0) Hematocrit 23.2 % (39.0-51.0) 23.4 % (39.0-51.0) Red Cell Distribution Width 21.7 % (11.6-17.2) 21.4 % (11.6-17.2) Neutrophils (%) (Auto) 92.8 % (16.0-70.0) 93.8 % (16.0-70.0) Lymphocytes (%) (Auto) 2.0 % (9.0-44.0) 1.8 % (9.0-44.0) Neutrophils # (Auto) 8.7 TH/MM3 (1.8-7.7) Lymphocytes # (Auto) 0.2 TH/MM3 (1.0-4.8) 0.1 TH/MM3 (1.0-4.8) Ovalocytes 1+ (NORMAL) 1+ (NORMAL) Blood Urea Nitrogen 64 MG/DL (7-18) 70 MG/DL (7-18) Creatinine 6.67 MG/DL (0.60-1.30) 6.69 MG/DL (0.60-1.30) Calcium Level 7.9 MG/DL (8.5-10.1) 7.9 MG/DL (8.5-10.1) Sodium Level 135 MEQ/L (136-145) 134 MEQ/L (136-145) Estimat Glomerular Filtration Rate 11 ML/MIN (>89) 11 ML/MIN (>89) Toxic Granulation 2+ (NORMAL) Random Glucose 148 MG/DL (74-106) Potassium Level 3.3 MEQ/L (3.5-5.1) Test 02/27/17 06:31 Imaging Last Impressions Abdomen/Pelvis CT 02/24/17 0000 Signed Impressions: Service Date/Time: Saturday, February 25, 2017 14:29 - CONCLUSION: 1. Patent osseous catheter in place with trace free fluid in the left lower quadrant and trace perihepatic fluid with smaller free air primarily along the anterior perihepatic region. Bowel appears unremarkable without evidence for pneumatosis. Although the air may have been introduced during peritoneal dialysis, infection cannot be excluded. Clinical correlation for peritoneal infection is recommended. There is insufficient volume of ascites fluid at this time for imaged guided paracentesis. 2. 1.3 cm hypodense lesion in the dome of the liver appears smaller in comparison to recent exam without significant enhancement. This lesion is too small to fully characterize. 3. Assuming interval passage of 4 mm right renal calculus. No radiopaque renal calculi or evidence for obstructive uropathy at this time. Ryan Yoder MD PE at Discharge GENERAL: NAD resting in bed SKIN: Warm and dry. Confluent lesions on buttocks, yellow thick drainage noted on areas with skin to skin contact. HEAD: Normocephalic. EYES: No scleral icterus. No injection or drainage. NECK: Supple, trachea midline. No JVD or lymphadenopathy. CARDIOVASCULAR: Regular rate and rhythm without murmurs, gallops, or rubs. RESPIRATORY: Breath sounds equal bilaterally. No accessory muscle use. GASTROINTESTINAL: Abdomen soft, non-tender, nondistended. MUSCULOSKELETAL: No cyanosis, or edema. Pt update on day of discharge Patient seen and examined in room in no acute distress or discomfort. He repots he is ready to go home, denies any chest pain, SOB, nausea, vomiting or diarrhea. He has been cleared by ID and will be following up with Dr. Paul as an outpatient for ongoing HIV treatment. He has no acute concerns at this moment. Hospital Course 51-year-old male with past medical history of HIV/AIDS, end- stage renal disease on peritoneal dialysis, HTN,who presented to the ED on after being instructed by [facility] to come to the ED due to low hemoglobin. Patient was admitted and transfused with 2 units of PRBC's and GI consulted for evaluation. He underwent EGD which revealed gastritis, esophagitis, and hiatal hernia. Colonoscopy revealed diverticulosis, internal hemorrhoids, and large ulceration lesion noted on perianal area concerning for herpes or CMV. Patient was seen by ID who has evaluated patient and treated him with medications for viral, fungal, and bacterial infections. Patient has been cleared by ID stand point with recommendations on discharge regarding medications for anal ulcerations. Patient already has prescriptions for his HIV/ AIDS ready at pharmacy prescribed to him from Dr. Paul, he will continue to follow up with ID as he regularly does. Patient will continue to peritoneal dialysis as he has been doing. He is agreeable plan and go home. Pt Condition on Discharge: Good Discharge Disposition: Discharge Home Discharge Time: <= 30 minutes Discharge Instructions DIET: Follow Instructions for: Renal Failure Diet Speech Therapy-Diet Recommends: Regular Activities you can perform: Regular-No Restrictions Activities to Avoid: Driving for 24 hrs Follow up Referrals: Appointment for Follow Up - 10 Days @ [facility] with Alda Paul MD Gastroenterology - 10 Days with Sandy Bailey MD Nephrology - 1 Week PCP Follow-up - 1 Week New Medications: Clarithromycin (Clarithromycin) 250 Mg Tab 250 MG PO Q12HR for Disseminated LULU for 30 Days, TAB 0 Refills Doxycycline Hyclate (Doxycycline Hyclate) 100 Mg Tab 100 MG PO Q12HR for Sacral wound infection for 14 Days, TAB Rifampin (Rifampin) 150 Mg Cap 300 MG PO DAILY for Disseminated LULU for 30 Days, #60 CAP 0 Refills Sulfamethoxazole-Trimethoprim (Sulfamethoxazole-Trimethoprim) 800-160 Mg Tab 1 TAB PO MoWeFr@1800 for PCP prophylaxis for 30 Days, TAB 0 Refills Valacyclovir (Valtrex) 500 Mg Tab 1000 MG PO Q24H for Herpes Simplex genital infecti, #30 TAB 0 Refills [Ethambutol] () 400 MG TAB 1200 MG PO DAILY for Disseminated LULU for 30 Days Continued Medications: Amlodipine (Norvasc) 10 Mg Tab 10 MG PO DAILY for Blood Pressure Management, #30 TAB Fluconazole (Diflucan) 100 Mg Tab 100 MG PO Q24H for Infection for 7 Days, #7 TAB 0 Refills (This prescription has been renewed) Lactobacillus Acidophilus (Acidophilus/l-Sporogenes) 35 Million Cell-25 Million Cell Tab 1 TAB PO Q12HR for Nutritional Supplement, #60 TAB Prednisone (Prednisone) 20 Mg Tab 40 MG PO DAILY for Immunosuppression, #30 TAB Discontinued Medications: Clarithromycin (Clarithromycin) 500 Mg Tab 500 MG PO Q12HR for Infection, #60 TAB Hydrocodone-Acetaminophen (Hydrocodone-Acetaminophen) 5-325 mg Tab 1 TAB PO Q4H for Pain Management, #14 TAB Rifampin (Rifampin) 150 Mg Cap 300 MG PO Q12HR for Infection, #60 CAP [Ethambutol] () 400 MG TAB 800 MG PO DAILY for Infection, #30 TAB Raúl Dick Feb 27, 2017 11:13 Enzo Holt DO Feb 27, 2017 14:28
--- NOTE | 2017-02-27 11:27 | PD.CONS ---
Consult Service Palliative Care Consult Requested By Dr. Donte Martines . Primary Care Physician No Primary Care Physician Reason for Consultation a. To assist with evaluation and management of symptoms including: perirectal pain b. To assist medical decision maker(s) with: better understanding of current medical conditions; weighing benefits/burdens of medical treatment options; making medical treatment decisions. HPI History of Present Illness 51-year-old male presents to the ED 02/22/17 for follow-up of abnormal lab results. Patient reported nephrology office called him regarding abnormal labs and recommended he presented to the ED for blood transfusion. At ED presentation he denied fever, chills, shortness of breath, chest pain, palpitations, abdominal pain, nausea/vomiting, weakness. Reported last spirits- year-old dialysis at home the night prior. He was not sure of last CD4 or viral load but reported "low ". He endorsed adhering to HIV medications. He was noted to be a poor historian. He has recent admission and history of disseminated MAC * WBC 7, hemoglobin 6.8/hematocrit 20.6. Platelets 284. BUN 71/creatinine 6.51. GFR 11. He was admitted for observation/blood transfusion. Transfusion later started, he is noted by medical attending POULTRY EVISCERATOR to have chills rigors, temperature 103.1 during transfusion, transfusion stopped. Patient denied any chest pain or shortness of breath. Patient reported red stool last one the day prior. Patient started on acetaminophen, Solu-Medrol, diphenhydramine, recheck CBC, will require premedication prior to future transfusions. * Nephrology consulted: Nephrology recommends GI consult, ID consult -may need to restart on him today tuberculosis treatments, otherwise recommends continuing peritoneal dialysis, no urgent need for dialysis. Will require another unit of blood, will follow patient. * GI consulted: Stool culture ordered. Monitor H&H, plan for colonoscopy the next day. Patient subjectively reporting loose stool with some hematochezia. Patient underwent colonoscopy 02/24/17: Findings of diverticulosis of the sigmoid descending, biopsy obtained to rule out CMV and herpes. Patient also noted with internal hemorrhoids, large ulcerated lesions and perianal area possibly herpes/CMV. Patient also underwent EGD 02/24: Findings of duodenum normal, gastritis in antrum, esophagitis distal esophagitis, hiatal hernia. Biopsy obtained. * Infectious disease consulted: Patient notes perianal lesions for the last few months they worsen when he lies on his back. He had been prescribed Valtrex by Dr. Paul however not clear if he was taking it. At ID evaluation noted to have confluent skin lesions with yellowish purulent drainage to buttocks and posterior scrotal region. Additional labs pending: CD4, BL, GC, chlamydia, RPR , continue LULU treatment, AFB blood culture to be repeated, fungal blood cultures. Started on Valtrex for ? HSV or VSV with secondary bacterial lesion no active herpetic lesions. Started on Levaquin, Flagyl, Zyvox. Will follow. palliative care consultation to assist with clarification of goals of treatment , given rapidly advanced disease with disseminated LULU, nephropathy. I attempted to see this patient today in his ED room. He is curled up under a blanket. Upon introduction of myself and palliative care he indicates he recalls me from prior admission. He tells me that he is going home today in that he doesn't really feel he needs my services. I attempt to gently explore his conditions and the concern that he may still experience recurrent symptoms or hospitalizations. He tells me he is aware he is feeling well now and he plans on going home and doesn't really need to talk about things. I attempted to explore possibility of decision-maker however he does not wish to discuss matters further. He thanks me for my time and tells me he is doing okay. Unable to complete physical exam. I did leave him with my card and contact number. Of note this patient known to this provider, and palliative care from prior consultation on 01/16/17:. During that admission patient was admitted for significant wounds to perirectal area. He had been intermittently compliant with HIV medications. He had decreased oral intake. 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 Recommended daily Neupogen injections though would not expect rapid improvement. Ophthalmology was consulted for visual deficits, DX CMV retinitis : started on IV ganciclovir.. She'll dialysis catheter was placed, patient transitioned from hemodialysis to peritoneal dialysis. Patient was some periods during admission of refusing meds and not eating much. At that time patient expressed aggressive goals, including full code, and that he was still processing his severe and advanced condition. He had considered designating healthcare surrogate however he did not complete this during that course. Function/Cognitive Trajectory Prior to recent hospitalization October through December patient lived at home, work and was independent in ADLs. Most recently has resided with family. . Review of Systems ROS Limitations: Other (patient denies any complaints reluctant to participate in consultation) Constitutional: DENIES: Chills, Change in appetite, Pain Respiratory: DENIES: Cough Cardiovascular: DENIES: Chest pain Gastrointestinal: DENIES: Abdominal pain, Nausea, Vomiting Past Family Social History Coded Allergies: No Known Allergies (Unverified Allergy, Unknown, 02/22/17) Past Medical History End-stage renal disease HIV/AIDS Hypertension Anemia of chronic illness . Past Surgical History Laparoscopic-assisted peritoneal dialysis catheter placement 12/14/[address] [place] Right Vas-Cath Placement 11/14/2016 . Reported Medications Hydrocodone-Acetaminophen 5-325 mg Tab 1 Tab PO Q4H Prednisone 20 Mg Tab 40 Mg PO DAILY Acidophilus/l-Sporogenes (Lactobacillus Acidophilus) 35 Million Cell-25 Million Cell Tab 1 Tab PO Q12HR Norvasc (Amlodipine Besylate) 10 Mg Tab 10 Mg PO DAILY Rifampin 150 Mg Cap 300 Mg PO Q12HR [Ethambutol] 400 MG Tab 800 Mg PO DAILY Diflucan (Fluconazole) 100 Mg Tab 100 Mg PO Q24H Clarithromycin 500 Mg Tab 500 Mg PO Q12HR Walker Rolling/GetGo (Device) 1 Mis Mis Ea .ROUTE DIRECTED . Current Medications Medications (Trade) Dose Ordered Sig/Nyla Route Start Time Stop Time Status Last Admin (NS Flush) 2 ml UNSCH PRN IV FLUSH 02/22/17 20:15 (NS Flush) 2 ml BID IV FLUSH 02/22/17 21:00 02/26/17 21:00 (Narcan Inj) 0.4 mg UNSCH PRN IV PUSH 02/22/17 20:15 (Heparin Inj) 1,000 units WITH DIALYSIS PRN XX 02/23/17 11:45 (NS Flush) 10 ml UNSCH PRN IV FLUSH 02/23/17 11:45 (Nephrocaps) 1 cap DAILY PO 02/24/17 09:00 02/26/17 09:00 (Deltasone) 40 mg DAILY PO 02/24/17 09:00 02/27/17 09:10 (Biaxin) 250 mg Q12HR PO 02/23/17 21:00 02/27/17 09:11 (Rifampin) 300 mg DAILY PO 02/24/17 09:00 02/27/17 09:11 (Tylenol) 650 mg Q4H PRN PO 02/23/17 12:15 02/23/17 12:55 (Benadryl) 25 mg Q4H PRN PO 02/23/17 12:15 02/23/17 12:54 (Lactinex) 1 tab TID PO 02/24/17 18:00 02/27/17 09:11 (Myambutol) 1,200 mg DAILY PO 02/25/17 09:00 02/27/17 09:12 (Valtrex) 1,000 mg Q24H PO 02/24/17 22:00 02/26/17 22:11 (Bactrim Ds 800-160 Mg) 1 tab MoWeFr@1800 PO 02/27/17 18:00 (Protonix) 40 mg DAILY PO 02/26/17 09:00 02/27/17 09:11 (Vibratab) 100 mg Q12H PO 02/27/17 12:00 Family History Mother with end-stage kidney disease and diabetes . Substance Use Tobacco: Nonsmoker Alcohol: None Prescription med abuse: None reported Illicits: None reported . 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 Not , no children. Supported by a niece, and brother. Most recently lives with family though prior to October admission lived at home independent with ADLs. Has lived in [place] for approximately 15 years, originally from [place]. . Spiritual/Cultural Factors No particular zoroastrian affiliation, previously expressed did not want sales training manager support. Living Will: Never completed Health Care Surrogate: Never completed Durable Power of Support Worker: Never completed Ethical and Legal Issues Patient mental status apparently fluctuates, given his complicated medical conditions his capacity and ability to make informed decisions may fluctuate. Previously discussed HCS designation and he consider designating his significant other Corbin Scott however did not wish to proceed with that before speaking with family during last admission. Patient not , no children supported by a brother and a niece. Not known if his parents are living, per [place] statutes decision-making may fall to parents, or possibly patient's siblings if he has not completed HCS designation. He does not wish to complete HCS this admission. . Physical Exam Vital Signs Date Time Temp Pulse Resp B/P (MAP) Pulse Ox O2 Delivery O2 Flow Rate FiO2 02/27/17 08:26 97.6 78 20 151/93 (112) 100 02/27/17 04:45 97.9 75 18 161/99 (119) 100 Manual Cuff/Auscultation 02/27/17 04:16 65 02/27/17 00:00 87 02/26/17 23:52 98.7 81 18 148/91 (110) 100 02/26/17 20:51 99.2 85 18 149/93 (111) 100 02/26/17 20:00 61 02/26/17 15:37 98.2 74 20 150/96 (114) 100 Automatic Cuff 02/26/17 11:41 98.2 88 22 146/92 (110) 100 Exam Patient does not wish to participate in exam or further discussion in regards to my consultation. PE limited to visual. CONSTITUTIONAL/GENERAL: This is a chronically ill-appearing male, no apparent distress SKIN: No jaundice, rashes, or lesions-from the upper extremities which I can visualize. Reported to have confluence lesions to perirectal area not visualized at this time. HEAD: Atraumatic. Normocephalic. RESPIRATORY/CHEST: Symmetric, unlabored respirations. On room air, no visible distress NEUROLOGICAL: Awake and alert. Observe moving all 4 extremities. He appears to be oriented and appropriate though unable to fully assess insight as he does not wish to participate. PSYCHIATRIC: No obvious anxiety/depression--limited assessment as patient does not wish to complete exam or consultation. . Diagnostic Tests Laboratory Laboratory Tests Test 02/24/17 16:10 02/24/17 22:41 02/25/17 13:43 02/26/17 13:20 Rapid Plasma Reagin NON-REACTIVE (NON-REACTVE) Chlamydia trachomatis DNA (PCR) NOT DETECTED (NOT DETECT) Neisseria gonorrhoeae DNA (PCR) NOT DETECTED (NOT DETECT) White Blood Count 9.4 TH/MM3 (4.0-11.0) 8.1 TH/MM3 (4.0-11.0) Red Blood Count 2.74 MIL/MM3 (4.50-5.90) 2.78 MIL/MM3 (4.50-5.90) Hemoglobin 8.0 GM/DL (13.0-17.0) 8.1 GM/DL (13.0-17.0) Hematocrit 23.2 % (39.0-51.0) 23.4 % (39.0-51.0) Mean Corpuscular Volume 84.6 FL (80.0-100.0) 84.1 FL (80.0-100.0) Mean Corpuscular Hemoglobin 29.1 PG (27.0-34.0) 29.1 PG (27.0-34.0) Mean Corpuscular Hemoglobin Concent 34.4 % (32.0-36.0) 34.6 % (32.0-36.0) Red Cell Distribution Width 21.7 % (11.6-17.2) 21.4 % (11.6-17.2) Platelet Count 169 TH/MM3 (150-450) 163 TH/MM3 (150-450) Mean Platelet Volume 8.4 FL (7.0-11.0) 8.5 FL (7.0-11.0) Neutrophils (%) (Auto) 92.8 % (16.0-70.0) 93.8 % (16.0-70.0) Lymphocytes (%) (Auto) 2.0 % (9.0-44.0) 1.8 % (9.0-44.0) Monocytes (%) (Auto) 4.8 % (0.0-8.0) 4.1 % (0.0-8.0) Eosinophils (%) (Auto) 0.3 % (0.0-4.0) 0.1 % (0.0-4.0) Basophils (%) (Auto) 0.1 % (0.0-2.0) 0.2 % (0.0-2.0) Neutrophils # (Auto) 8.7 TH/MM3 (1.8-7.7) 7.6 TH/MM3 (1.8-7.7) Lymphocytes # (Auto) 0.2 TH/MM3 (1.0-4.8) 0.1 TH/MM3 (1.0-4.8) Monocytes # (Auto) 0.4 TH/MM3 (0-0.9) 0.3 TH/MM3 (0-0.9) Eosinophils # (Auto) 0.0 TH/MM3 (0-0.4) 0.0 TH/MM3 (0-0.4) Basophils # (Auto) 0.0 TH/MM3 (0-0.2) 0.0 TH/MM3 (0-0.2) CBC Comment AUTO DIFF AUTO DIFF Differential Comment AUTO DIFF CONFIRMED AUTO DIFF CONFIRMED Platelet Estimate NORMAL (NORMAL) Platelet Morphology Comment NORMAL (NORMAL) Ovalocytes 1+ (NORMAL) 1+ (NORMAL) Blood Urea Nitrogen 64 MG/DL (7-18) 70 MG/DL (7-18) Creatinine 6.67 MG/DL (0.60-1.30) 6.69 MG/DL (0.60-1.30) Random Glucose 105 MG/DL (74-106) 148 MG/DL (74-106) Calcium Level 7.9 MG/DL (8.5-10.1) 7.9 MG/DL (8.5-10.1) Sodium Level 135 MEQ/L (136-145) 134 MEQ/L (136-145) Potassium Level 3.5 MEQ/L (3.5-5.1) 3.3 MEQ/L (3.5-5.1) Chloride Level 100 MEQ/L (98-107) 99 MEQ/L (98-107) Carbon Dioxide Level 25.3 MEQ/L (21.0-32.0) 24.1 MEQ/L (21.0-32.0) Anion Gap 10 MEQ/L (5-15) 11 MEQ/L (5-15) Estimat Glomerular Filtration Rate 11 ML/MIN (>89) 11 ML/MIN (>89) Toxic Granulation 2+ (NORMAL) Test 02/27/17 06:31 Result Diagram: 02/26/17 1320 02/26/17 1320 Microbiology Microbiology Date/Time Source Procedure Growth Status 02/24/17 22:57 Blood Peripheral Blood Fungal Culture Pending Received 02/24/17 22:57 Blood Peripheral Blood Fungal Culture Pending Received 02/24/17 22:57 Blood Peripheral Mycobacterial Culture Pending Received Imaging Last Impressions Abdomen/Pelvis CT 02/24/17 0000 Signed Impressions: Service Date/Time: Saturday, February 25, 2017 14:29 - CONCLUSION: 1. Patent osseous catheter in place with trace free fluid in the left lower quadrant and trace perihepatic fluid with smaller free air primarily along the anterior perihepatic region. Bowel appears unremarkable without evidence for pneumatosis. Although the air may have been introduced during peritoneal dialysis, infection cannot be excluded. Clinical correlation for peritoneal infection is recommended. There is insufficient volume of ascites fluid at this time for imaged guided paracentesis. 2. 1.3 cm hypodense lesion in the dome of the liver appears smaller in comparison to recent exam without significant enhancement. This lesion is too small to fully characterize. 3. Assuming interval passage of 4 mm right renal calculus. No radiopaque renal calculi or evidence for obstructive uropathy at this time. Ryan Yoder MD Patient/Family Conference Family Conference Location: Bedside Issues Discussed: Limited discussion with patient and he did not wish to discuss/or participate in consultation. I reviewed: * Palliative care role, purpose, approach * Very briefly attempted to explore Patients general health, recent hospitalization and prognosis * Palliative care contact information provided Patient does not wish to participate he tells me he is feeling okay and plans to be discharged home today. He indicates he does not need palliative services at this time. I did provide him with my contact information. 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 Not , no children. Supported by a niece, and brother. Most recently lives with family though prior to October admission lived at home independent with ADLs. Has lived in [place] for approximately 15 years, originally from [place]. Spiritual No particular zoroastrian affiliation, previously expressed did not want sales training manager support. Legal:Patient mental status apparently fluctuates, given his complicated medical conditions his capacity and ability to make informed decisions may fluctuate. Previously discussed [facility] designation and he consider designating his significant other Corbin Scott however did not wish to proceed with that before speaking with family during last admission. Patient not , no children supported by a brother and a niece. Not known if his parents are living, per [place] statutes decision-making may fall to parents, or possibly patient's siblings if he has not completed HCS designation. Ethical issues impacting care: No ethical issues identified. Important Contacts Alexis Hu brother [phone] Friend/ Partner Mr. Corbin Scott [phone] . Prognosis This patient presented to the ED for significant anemia requiring blood transfusion. He has recent admission/treatment for perianal wounds, disseminated MAC, CMV retinitis. He is in end-stage AIDS per diagnostics during most recent admission. He is peritoneal dialysis dependent. CD4 count pending. He may survive current acute illness with ongoing aggressive measures however he remains high risk for ongoing complications, and further decline and . Appropriate for hospice if goals compatible. . Code Status: Full Code Plan * Legal decision maker:Patient mental status apparently fluctuates, given his complicated medical conditions his capacity and ability to make informed decisions may fluctuate. Previously discussed HCS designation and he consider designating his significant other Corbin Scott however did not wish to proceed with that before speaking with family during last admission. Patient not , no children supported by a brother and a niece. Not known if his parents are living, per [place] statutes decision-making may fall to parents, or possibly patient's siblings if he has not completed HCS designation. * Goals: Patient goals today are to go home, informs discharge pending- does not feel he needs palliative care services at this time. * CODE STATUS: Full code by default * SYMPTOMS: --Reported with perirectal pain--multiple lesions have been ongoing for the past several months. Unable to further evaluate today during my visit. * Palliative care will continue to follow during hospital course as condition evolves, to assist patient/decision-maker with understanding of medical conditions, weighing benefits/burdens of treatment options, for clarification of goals of treatment. Additionally will assist with any symptoms of palliative concern Time Spent Total Floor Time (mins): 35 (Chart review, limited discussion with patient at bedside) Thank you for the opportunity to participate in the care of Mr. Hu. Attestation To help prompt me to consider important information that might be impacting today's encounter and assessment, information from prior notes written by myself or my colleagues may have been "brought forward" into today's note. My signature on this note, however, is an attestation that I personally performed the exam, history, and/or decision-making noted today, and, unless otherwise indicated, the interactions with patient, family, and staff as well as the review of records all occurred today. I also attest that the listed assessment and stated plan reflect my best clinical judgment today based on the combination of historical information, prior notes, and today's exam/ interactions. When time spent is documented, it refers only to time spent today by the signer, or if indicated, combined time spent today by collaborating physician/nurse practitioner. Keily Ackerman Feb 27, 2017 11:27
[2017-02-27 11:41] VITALS: BP 164/109; PULSE 81; RESP 20; TEMP 98.2; O2SAT 100
--- NOTE | 2017-02-27 11:43 | HHI.DCPOC ---
Discharge Care Plan Diagnosis: (1) Anemia (2) Gastrointestinal bleed Goals to Promote Your Health * To prevent worsening of your condition and complications * To maintain your health at the optimal level Directions to Meet Your Goals Take your medications as prescribed Follow your dietary instruction Follow activity as directed Keep your appointments as scheduled Take your immunizations and boosters as scheduled If your symptoms worsen call your PCP, if no PCP go to Urgent Care Center or Emergency Room Smoking is Dangerous to Your Health. Avoid second hand smoke Call the 24-hour hour crisis hotline for domestic abuse at Raúl Dick Feb 27, 2017 11:43
[2017-02-27] MEDS ORDERED: DOXYCYCLINE HYCLATE 100 MG TAB PO SCH (12:00)
--- NOTE | 2017-02-27 14:27 | HHI.PR ---
Subjective Remarks Mr. Hu is a 51-year-old male with a history of HIV/AIDS, end-stage renal disease on peritoneal dialysis, and hypertension who presented to the emergency department on 02/22/2017 after receiving a call from [facility] instructing him to go to the emergency room to receive a blood transfusion because of abnormal lab values. He recently had a lengthy hospitalization here November 05, 2016 through 01/18/2017 for sepsis and renal failure. The patient is seen in the CDU. He is initially hiding under his blankets upon entering the room. He has a blood transfusion in progress and reports feeling cold. Rigors are noted and checked his temperature. His temperature reading is 103.1 oral and I stopped his blood transfusion and discussed with Dr. Jimenez and his bedside RN. The patient is supposed received peritoneal dialysis for that is not occurred as of the time of my visit. I asked the bedside RN to call the test preparation tutor dialysis nurse for assistance with setting up PD. The patient reports feeling cold but otherwise denies shortness of breath or chest pain. He denies black stool but reports that stools are discolored red and that his last abnormal stool occurred yesterday. He states he was feeling fine prior to this and denies any fevers, chills, shortness of breath, cough, chest pain, nausea, vomiting, or diarrhea Follow-up on patient with HIV/AIDS, ESRD on PD, anemia. 02/24/17 -Patient seen and examined. Patient reports blood in his stool for the past 2 weeks. He reports some diarrhea. He denies any hematuria. Denies any fever or chills. Denies any chest pain or dyspnea. Denies any nausea, vomiting or abdominal pain. States he follow up with his ID physician closely. Reports his buttock infection is not doing so good. 02/25/17-patient seen and examined, currently afebrile and denies any chest pain or shortness of breath. He was seen by ID yesterday pending culture report. Transfused 2 units packed red blood cell. Had HD yesterday 02/26/17-patient seen and examined, afebrile, denies any GI bleed. He is getting and tolerated nightly peritoneal dialysis. He Is wondering when he can be discharged home 12-4 SEEN AND CLEARED BY ID FOR DISCHARGE Objective Vitals Vital Signs Date Time Temp Pulse Resp B/P (MAP) Pulse Ox O2 Delivery O2 Flow Rate FiO2 02/27/17 11:41 98.2 81 20 164/109 (127) 100 02/27/17 08:26 97.6 78 20 151/93 (112) 100 02/27/17 04:45 97.9 75 18 161/99 (119) 100 Manual Cuff/Auscultation 02/27/17 04:16 65 02/27/17 00:00 87 02/26/17 23:52 98.7 81 18 148/91 (110) 100 02/26/17 20:51 99.2 85 18 149/93 (111) 100 02/26/17 20:00 61 02/26/17 15:37 98.2 74 20 150/96 (114) 100 Automatic Cuff I/O 02/26/17 02/26/17 02/26/17 02/27/17 02/27/17 02/27/17 07:00 15:00 23:00 07:00 15:00 23:00 Output Total 1400 ml 200 ml Balance -1400 ml -200 ml Output Urine Total 200 ml 200 ml Peritoneal Fluid 1200 ml # Bowel Movements 1 Result Diagram: 02/26/17 1320 02/26/17 1320 Other Results Laboratory Tests Test 02/24/17 16:10 02/24/17 22:41 02/25/17 13:43 02/26/17 13:20 Rapid Plasma Reagin NON-REACTIVE Chlamydia trachomatis DNA (PCR) NOT DETECTED Neisseria gonorrhoeae DNA (PCR) NOT DETECTED White Blood Count 9.4 TH/MM3 8.1 TH/MM3 Red Blood Count 2.74 MIL/MM3 2.78 MIL/MM3 Hemoglobin 8.0 GM/DL 8.1 GM/DL Hematocrit 23.2 % 23.4 % Mean Corpuscular Volume 84.6 FL 84.1 FL Mean Corpuscular Hemoglobin 29.1 PG 29.1 PG Mean Corpuscular Hemoglobin Concent 34.4 % 34.6 % Red Cell Distribution Width 21.7 % 21.4 % Platelet Count 169 TH/MM3 163 TH/MM3 Mean Platelet Volume 8.4 FL 8.5 FL Neutrophils (%) (Auto) 92.8 % 93.8 % Lymphocytes (%) (Auto) 2.0 % 1.8 % Monocytes (%) (Auto) 4.8 % 4.1 % Eosinophils (%) (Auto) 0.3 % 0.1 % Basophils (%) (Auto) 0.1 % 0.2 % Neutrophils # (Auto) 8.7 TH/MM3 7.6 TH/MM3 Lymphocytes # (Auto) 0.2 TH/MM3 0.1 TH/MM3 Monocytes # (Auto) 0.4 TH/MM3 0.3 TH/MM3 Eosinophils # (Auto) 0.0 TH/MM3 0.0 TH/MM3 Basophils # (Auto) 0.0 TH/MM3 0.0 TH/MM3 CBC Comment AUTO DIFF AUTO DIFF Differential Comment AUTO DIFF CONFIRMED AUTO DIFF CONFIRMED Platelet Estimate NORMAL Platelet Morphology Comment NORMAL Ovalocytes 1+ 1+ Blood Urea Nitrogen 64 MG/DL 70 MG/DL Creatinine 6.67 MG/DL 6.69 MG/DL Random Glucose 105 MG/DL 148 MG/DL Calcium Level 7.9 MG/DL 7.9 MG/DL Sodium Level 135 MEQ/L 134 MEQ/L Potassium Level 3.5 MEQ/L 3.3 MEQ/L Chloride Level 100 MEQ/L 99 MEQ/L Carbon Dioxide Level 25.3 MEQ/L 24.1 MEQ/L Anion Gap 10 MEQ/L 11 MEQ/L Estimat Glomerular Filtration Rate 11 ML/MIN 11 ML/MIN Toxic Granulation 2+ Test 02/27/17 06:31 Imaging Last Impressions Abdomen/Pelvis CT 02/24/17 0000 Signed Impressions: Service Date/Time: Saturday, February 25, 2017 14:29 - CONCLUSION: 1. Patent osseous catheter in place with trace free fluid in the left lower quadrant and trace perihepatic fluid with smaller free air primarily along the anterior perihepatic region. Bowel appears unremarkable without evidence for pneumatosis. Although the air may have been introduced during peritoneal dialysis, infection cannot be excluded. Clinical correlation for peritoneal infection is recommended. There is insufficient volume of ascites fluid at this time for imaged guided paracentesis. 2. 1.3 cm hypodense lesion in the dome of the liver appears smaller in comparison to recent exam without significant enhancement. This lesion is too small to fully characterize. 3. Assuming interval passage of 4 mm right renal calculus. No radiopaque renal calculi or evidence for obstructive uropathy at this time. Ryan Yoder MD Objective Remarks GENERAL: Awake alert and oriented talkative and cooperative thin-appearing male SKIN: Warm and dry. HEAD: Atraumatic. Normocephalic. EYES: Pupils equal and round. No scleral icterus. No injection or drainage. Extraocular muscles intact ENT: No nasal bleeding or discharge. Mucous membranes pink and moist. NECK: Trachea midline. No JVD. CARDIOVASCULAR: Regular rate and rhythm. S1 and S2 no S3 or S4 RESPIRATORY: No accessory muscle use. Clear to auscultation. Breath sounds equal bilaterally. Right-sided hemodialysis catheter GASTROINTESTINAL: Abdomen soft, non-tender, nondistended. Hepatic and splenic margins not palpable. Peritoneal dialysis catheter MUSCULOSKELETAL: Extremities without clubbing, cyanosis, or edema. No obvious deformities. NEUROLOGICAL: Awake and alert. No obvious cranial nerve deficits. Motor grossly within normal limits. Five out of 5 muscle strength in the arms and legs. Normal speech. PSYCHIATRIC: Appropriate mood and affect; insight and judgment normal. Procedures Colonoscopy and EGD 02/24 Medications and IVs Current Medications Diphenhydramine HCl (Benadryl) 25 mg ONCE ONCE PO Last administered on 20:11; Start 02/22/17 at 18:00; Stop 02/22/17 at 18:01; Status DC Acetaminophen (Tylenol) 650 mg ONCE ONCE PO Last administered on 02/22/17 20 :11; Start 02/22/17 at 18:00; Stop 02/22/17 at 18:01; Status DC Furosemide (Lasix Inj) 40 mg ONCE ONCE IV PUSH ; Start 02/22/17 at 18:00; Stop 02/22/17 at 18:01; Status DC Sodium Chloride (NS Flush) 2 ml UNSCH PRN IV FLUSH FLUSH AFTER USING IV ACCESS ; Start 02/22/17 at 20:15 Sodium Chloride (NS Flush) 2 ml BID IV FLUSH Last administered on 02/26/17 21: 00; Start 02/22/17 at 21:00 Naloxone HCl (Narcan Inj) 0.4 mg UNSCH PRN IV PUSH SEE LABEL COMMENTS; Start 02/22/17 at 20:15 Furosemide (Lasix Inj) 40 mg ONCE ONCE IV PUSH ; Start 02/23/17 at 00:00; Stop 02/23/17 at 00:01; Status DC Diphenhydramine HCl (Benadryl) 50 mg ONCE ONCE PO Last administered on 03:33; Start 02/23/17 at 03:30; Stop 02/23/17 at 03:31; Status DC Methylprednisolone Sodium Succinate (SoluMEDROL INJ) 125 mg ONCE ONCE IV PUSH Last administered on 02/23/17 03:34; Start 02/23/17 at 03:30; Stop 02/23/17 at 03:31; Status DC Acetaminophen (Tylenol) 650 mg ONCE ONCE PO Last administered on 02/23/17 03 :33; Start 02/23/17 at 03:30; Stop 02/23/17 at 03:31; Status DC Heparin Sodium (Porcine) (Heparin Inj) 1,000 units WITH DIALYSIS PRN XX SEE LABEL COMMENTS; Start 02/23/17 at 11:45 Sodium Chloride (NS Flush) 10 ml UNSCH PRN IV FLUSH SEE LABEL COMMENTS; Start 02/23/17 at 11:45 Vitamin B Complex/ Vit C/Folic Acid (Nephrocaps) 1 cap DAILY PO Last administered on 02/27/17 09:11; Start 02/24/17 at 09:00 Clarithromycin (Biaxin) 500 mg Q12HR PO ; Start 02/23/17 at 21:00; Stop at 21:00; Status DC Fluconazole (Diflucan) 100 mg Q24H PO Last administered on 02/26/17 13:04; Start 02/23/17 at 12:00; Stop 02/27/17 at 10:27; Status DC Prednisone (Deltasone) 40 mg DAILY PO Last administered on 02/27/17 09:10; Start 02/24/17 at 09:00 Rifampin (Rifampin) 300 mg Q12HR PO ; Start 02/23/17 at 21:00; Stop 02/23/17 at 21:00; Status DC Non-Formulary Medication 800 mg DAILY PO ; Start 02/24/17 at 09:00; Stop at 09:00; Status DC Clarithromycin (Biaxin) 250 mg Q12HR PO Last administered on 02/27/17 09:11; Start 02/23/17 at 21:00 Rifampin (Rifampin) 300 mg DAILY PO Last administered on 02/27/17 09:11; Start 02/24/17 at 09:00 Ethambutol HCl (Myambutol) 800 mg MoWeFr PO Last administered on 02/24/17 12: 37; Start 02/24/17 at 09:00; Stop 02/24/17 at 21:45; Status DC Acetaminophen (Tylenol) 650 mg Q4H PRN PO SEE LABEL COMMENTS Last administered on 02/23/17 12:55; Start 02/23/17 at 12:15 Diphenhydramine HCl (Benadryl) 25 mg Q4H PRN PO SEE LABEL COMMENTS Last administered on 02/23/17 12:54; Start 02/23/17 at 12:15 Polyethylene Glycol/ Electrolytes (Colyte Liq) 4,000 ml ONCE ONCE PO Last administered on 02/23/17 16:22; Start 02/23/17 at 15:30; Stop 02/23/17 at 15 :36; Status DC Lactobacillus Acidophilus (Lactinex) 1 tab TID PO Last administered on 09:11; Start 02/24/17 at 18:00 Diatrizoate Meglum/ Diatrizoate Sod ( Gastroview Liq) 18 ml ONCE ONCE PO Last administered on 02/24/17 17:55; Start 02/24/17 at 18:00; Stop 02/24/17 at 18:01; Status DC Ethambutol HCl (Myambutol) 1,200 mg DAILY PO Last administered on 02/27/17 09: 12; Start 02/25/17 at 09:00 Valacyclovir HCl (Valtrex) 1,000 mg Q24H PO Last administered on 02/26/17 22: 11; Start 02/24/17 at 22:00 Levofloxacin (Levaquin) 500 mg Q48H PO Last administered on 02/26/17 22:12; Start 02/24/17 at 22:00; Stop 02/27/17 at 10:27; Status DC Metronidazole (Flagyl) 500 mg Q8HR PO Last administered on 02/27/17 09:18; Start 02/24/17 at 22:00; Stop 02/27/17 at 10:27; Status DC Linezolid (Zyvox) 600 mg Q12HR PO Last administered on 02/27/17 09:13; Start 02/24/17 at 22:00; Stop 02/27/17 at 10:27; Status DC Trimethoprim/ Sulfamethoxazole (Bactrim Ds 800-160 Mg) 1 tab MoWeFr@1800 PO ; Start 02/27/17 at 18:00 Diatrizoate Meglum/ Diatrizoate Sod ( Gastroananya Liq) 18 ml ONCE ONCE PO Last administered on 02/25/17 10:36; Start 02/25/17 at 09:45; Stop 02/25/17 at 09:46; Status DC Iohexol (Omnipaque 350 Inj) 80 ml STK-MED ONCE IVCONTRAST ; Start 02/25/17 at 14 :42; Stop 02/25/17 at 14:43; Status Cancel Pantoprazole Sodium (Protonix) 40 mg DAILY PO Last administered on 02/27/17 09 :11; Start 02/26/17 at 09:00 Potassium Chloride (KCl) 20 meq ONCE ONCE PO Last administered on 02/26/17 15 :27; Start 02/26/17 at 14:30; Stop 02/26/17 at 14:31; Status DC Potassium Chloride (KCl) 40 meq ONCE ONCE PO Last administered on 02/27/17 09 :10; Start 02/27/17 at 09:00; Stop 02/27/17 at 09:01; Status DC Doxycycline Hyclate (Vibratab) 100 mg Q12H PO ; Start 02/27/17 at 12:00 Propofol (Diprivan 200 Mg/20 ml Inj) 400 mg STK-MED ONCE IV ; Start 02/24/17 at 12:00; Stop 02/27/17 at 10:38; Status DC Lidocaine HCl (Xylocaine-Mpf 1% Inj) 5 ml STK-MED ONCE OTHER ; Start 02/24/17 at 12:00; Stop 02/27/17 at 10:38; Status DC A/P Problem List: (1) Anemia ICD Code: D64.9 - Anemia, unspecified (2) Transfusion reaction ICD Code: T80.92XA - Unspecified transfusion reaction, initial encounter (3) End stage renal disease on dialysis ICD Code: N18.6 - End stage renal disease; Z99.2 - Dependence on renal dialysis Status: Chronic Assessment and Plan 51-year-old man with GIB Hematochezia - Transfused 2 units packed red blood cell and status post Panendoscopy 02/24/17 Appreciate input from GI Diarrhea - stool studies and C diff PCR negative Anemia - critical requiring blood transfusion - Hgb 6.8/HCT 20.6 - baseline hgb is around 8 - s/p 2units PRBCs with improvement of H/H to 8.6/25.6 ESRD on peritoneal dialysis - monitor renal function - avoid nephrotoxins - nephrology consult appreciated Still has right-sided chest hemodialysis access in place HIV/AIDS - hx of disseminated MAC - Continue home medications Clarithromycin, Ethambutol and Rifampin, renally dosed - ID consulted, appreciate assistance Check CD4, VL, GC, Chlam, RPR,AFB blood culture , fungal and bacteria blood cultures Continue Bactrim for PCP, Valtrex for anal lesions ,Levaquin, Flagyl, Zyvox oral Assess response to above on Monday02/27/17. Consider wound care consult. Medications adjusted by infectious disease at discharge--not to continue on HIV meds at this time DVT prophylaxis - SCDs/TEDs Discharge Planning Discharge to home today Problem Qualifiers (1) Anemia: Qualified Codes: D64.9 - Anemia, unspecified Enzo Holt DO Feb 27, 2017 14:27
[2017-02-27] MEDS ORDERED: SULFAMETHOXAZOLE-TRIMETHOPRIM DS 800-160 MG TAB PO SCH (18:00)
--- NOTE | 2017-02-27 19:35 | HHI.NPPN ---
Subjective History of Present Illness 51-year-old male with past medical history of HIV, chronic anemia, recent history of LULU infection, history of chronic anemia, end-stage renal disease on peritoneal dialysis, now was sent to the emergency department because of very low hemoglobin. I was called to see the patient for management of dialysis. The patient has been on hemodialysis and recently started on peritoneal dialysis and has been doing it at home. Additional Remarks Patient is alert, seen in AM, feeling better, no abd. pain. Review of Systems General Constitutional: Fatigue Objective Data Data Vital Signs Date Time Temp Pulse Resp B/P (MAP) Pulse Ox O2 Delivery O2 Flow Rate FiO2 02/27/17 11:41 98.2 81 20 164/109 (127) 100 02/27/17 08:26 97.6 78 20 151/93 (112) 100 02/27/17 04:45 97.9 75 18 161/99 (119) 100 Manual Cuff/Auscultation 02/27/17 04:16 65 02/27/17 00:00 87 02/26/17 23:52 98.7 81 18 148/91 (110) 100 02/26/17 20:51 99.2 85 18 149/93 (111) 100 02/26/17 20:00 61 -: 02/26/17 1320 02/26/17 1320 Microbiology 02/27/17 Gram Stain, Received Pending 02/27/17 Gram Stain - Final, Complete 02/27/17 Aerobic Blood Culture, Received Pending 02/27/17 Anaerobic Blood Culture, Received Pending 02/27/17 Aerobic Blood Culture, Received Pending 02/27/17 Anaerobic Blood Culture, Received Pending Physical Exam General Appearance: No Acute Distress, Comfortable Eyes Eye Exam: Pupils Equal Neck Neck Exam: Neck Supple Pulmonary Resp Exam: Breath Sounds Equal, No Distress, Rhonchi, Decreased Bases Cardiology CV Exam: Regular, Normal Sinus Rhythm Gastrointestinal/Abdomen GI Exam: Soft, Non-Tender, Bowel Sounds Present Extremeties Extremities Exam: Trace Edema Neurologic Neuro Exam: Alert, Awake, Oriented Psychiatric Psych Exam: Appropriate Responses Assessment/Plan Assessment Summary: Anemia of CKD, Hypertension, End Stage Renal Disease Problem List: (1) HIV (human immunodeficiency virus infection) ICD Codes: B20 - Human immunodeficiency virus [HIV] disease (2) Anemia ICD Codes: D64.9 - Anemia, unspecified (3) Transfusion reaction ICD Codes: T80.92XA - Unspecified transfusion reaction, initial encounter (4) Weakness ICD Codes: R53.1 - Weakness (5) Malnutrition ICD Codes: E46 - Unspecified protein-calorie malnutrition (6) End stage renal disease on dialysis ICD Codes: N18.6 - End stage renal disease; Z99.2 - Dependence on renal dialysis Status: Chronic Plan Patient has stable Hgb. Now has no active bleeding. GI has seen the patient. EGD and colonoscopy done and results noted. Biopsy done. PD is working and fluid is clear. Hgb. is stable. Now for D/C. Follow up[ in [facility]. To get Epogen as out patient. Problem Qualifiers (1) Anemia: Qualified Codes: D64.9 - Anemia, unspecified Kwadwo Shah MD Feb 27, 2017 19:34
[2017-03-01 03:51] LABS: CD 19 PERCENT 1 % (6-29); CD3 ABSOLUTE 195 (840-3060); CD4/CD8 RATIO 0.1 (0.86-5.00); CD8 ABSOLUTE 179 (180-1170); LYMPHOCYTES, ABSOLUTE 249 (850-3900)
== END 2017-02-27 15:57 | disposition home or self-care (01) ==
LOC: NEPE 13:25 → NEDA 20:12 → NEPHCDU 21:30 → UNDODISOB 02-24 14:06
PROVIDERS: ADMIT Hospitalist; ATTEND Hospitalist
DX: D64.9 Anemia, unspecified (principal); T80.92XA Unspecified transfusion reaction, initial encounter; N18.6 End stage renal disease; K57.30 Diverticulosis of large intestine without perforation or abscess without bleeding; K92.1 Melena; R50.9 Fever, unspecified; R63.4 Abnormal weight loss; A31.2 Disseminated mycobacterium avium-intracellulare complex (DMAC); R62.7 Adult failure to thrive; B20 Human immunodeficiency virus [HIV] disease; D63.1 Anemia in chronic kidney disease; Z79.899 Other long term (current) drug therapy; Z99.2 Dependence on renal dialysis; Y84.8 Other medical procedures as the cause of abnormal reaction of the patient, or of later complication, without mention of misadventure at the time of the procedure
CPT/HCPCS: 00740; 00810; 36430; 43239; 45380; 74176; 80048; 80076; 81002; 82272; 82948; 84100; 85007; 85014; 85018; 85025; 85027; 86077; 86078; 86355; 86357; 86359; 86360; 86592; 86850; 86870; 86880; 86900; 86901; 86902; 86920; 86922; 87040; 87103; 87116; 87205; 87328; 87329; 87491; 87493; 87506; 87535; 87591; 88305; 88312; 90935; 90945; 93005; 96374; 99285; G0378; J2930; J7512; P9040; Q0163; Q9963; G0257; Q9967

== ENCOUNTER 2018-02-02 13:12 | Inpatient (IN) ==
[2018-02-02] MEDS ORDERED: Sod Chloride 0.9% Inj 1,000 ML IV.SIG ONE (18:47)
--- NOTE | 2018-02-02 18:54 | ED ---
HPI General Chief Complaint: Dizziness Stated Complaint: cold symp Time Seen by Provider: 02/02/18 18:32 Source: patient Mode of arrival: ambulatory Limitations: no limitations History of Present Illness HPI Narrative: 52-year-old male complaint generalized malaise and weakness and dizziness. Patient states that symptoms started his morning. Patient states that this dizziness is worse with head movement. Patient states that he has poor appetite for the past 2 weeks. Patient states that he has oral thrush and has been taking nystatin for that. Patient has history of HIV positive and has been taking medications as directed. Patient does not know his CD4 count or viral load. Patient denies any headache. Patient denies any visual change. Patient denies any neck pain. Patient denies any chest pain or shortness of breath. Patient denies abdominal pain. Patient states that he had intermittent nausea vomiting diarrhea for the past 2 weeks. Patient states he has mild occasional cough. Patient states the cough is nonproductive. Patient has history of end-stage renal disease on peritoneal dialysis nightly. Patient states that he is to make a small amount of the urine. Patient denies any dysuria frequency. 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 dizziness Onset (ago): hour(s) Timing: gradual onset Description: Reports lightheadedness History of similar episodes: No History of trauma: No Severity: moderate Relieving factors: nothing Exacerbating factors: movement Associated symptoms: Reports nausea and vomiting Related Data Home Medications Medication Instructions Recorded Confirmed abacavir 300 mg PO DAILY 02/02/18 02/02/18 amlodipine 10 mg PO DAILY 02/02/18 02/02/18 azithromycin 500 mg PO DAILY 02/02/18 02/02/18 calcium acetate 667 mg PO TID 02/02/18 02/02/18 dolutegravir [Tivicay] 50 mg PO DAILY 02/02/18 02/02/18 ethambutol 800 mg PO DAILY 02/02/18 02/02/18 fluconazole 100 mg PO DAILY 02/02/18 02/02/18 labetalol 200 mg PO BID 02/02/18 02/02/18 lisinopril 5 mg PO DAILY 02/02/18 02/02/18 nystatin 1 ml PO QID 02/02/18 02/02/18 rifabutin 300 mg PO DAILY 02/02/18 02/02/18 Previous Rx's Medication Instructions Recorded ondansetron HCl [Zofran] 4 mg PO Q8H PRN #20 tab 01/17/18 Allergies Allergy/AdvReac Type Severity Reaction Status Date / Time No Known Allergies Allergy Verified 02/02/18 13:58 Review of Systems ROS: all other systems reviewed are negative [facility] Medical History Medical History HIV (human immunodeficiency virus infection) (Acute) Hypotension (Acute) Renal failure (Acute) Social History Social History Substance History: Unable to Obtain Second Hand Smoke Exposure: Yes Smoking Status: Former smoker Tobacco Type: Cigarettes How Often Do You Have a Drink Containing Alcohol: Never Recent Travel in [facility] within the Last 8 Weeks: No Recent Out of Country Travel within the Last 8 Weeks: No Immunization History Tetanus Immunization: >5 Years Exam Narrative Exam Narrative: GENERAL: Well-nourished, well-developed patient. SKIN: Focused skin assessment warm/dry. HEAD: Normocephalic. EYES: No scleral icterus. No injection or drainage. Patient has oral thrush. NECK: Supple, trachea midline. No JVD or lymphadenopathy. CARDIOVASCULAR: Regular rate and rhythm without murmurs, gallops, or rubs. RESPIRATORY: Breath sounds equal bilaterally. No accessory muscle use. GASTROINTESTINAL: Abdomen soft, non-tender, nondistended. MUSCULOSKELETAL: No cyanosis, or edema. BACK: Nontender without obvious deformity. No CVA tenderness. Neurologic exam normal. Course Initial Documented Vital Signs Temperature 99.6 F 02/02/18 13:54 Pulse Rate 117 H 02/02/18 13:54 Respiratory Rate 18 02/02/18 13:54 Blood Pressure 92/52 L 02/02/18 13:54 Pulse Oximetry 97 02/02/18 13:54 Last Documented Vital Signs Temperature 98.5 F 02/07/18 00:00 Pulse Rate 90 02/07/18 00:00 Respiratory Rate 18 02/07/18 00:00 Blood Pressure 137/64 02/07/18 00:00 Pulse Oximetry 99 02/07/18 00:00 Critical Care Time Critical Care Time: Yes Total Critical Care Time: 30 Attestation: Aggregate critical care time was 30 minutes. Time to perform other separately billable procedures was not included in the critical care time. My time did not include minutes spent treating any other patients simultaneously or on activities that did not directly contribute to the patient's treatment. The services I provided to this patient were to treat and/or prevent clinically significant deterioration that could result in: Severe hypokalemia, dehydration, HIV, oral thrush I provided critical care services requiring my management, as noted below: Chart data review, documentation time, medication orders and management, vital sign assessments/reviewing monitor data, ordering and reviewing lab tests, ordering and interpreting/reviewing x-rays and diagnostic studies, care of the patient and discussion of the patient with the admitting physicians. Sign Out Sign Out Data: Patient Sign Out occurred on 02/02/18 at 19:37. Patient's care was discussed, and care was transferred from Atif Chan to Anais Nguyen. Sign Out Comment: Patient complained of dizziness and poor appetite for the past 2 weeks. Dizziness worse today. History of HIV with oral thrush. History of end-stage renal disease on peritoneal dialysis. Patient was signed out to incoming physician. Last updated by Atif Chan MD at 02/02/18 19:18 Post-Handoff Eval: 52-year-old male came to the emergency room with history of dizziness when he woke up this morning. He says his balance feels off when he stands or walks. Patient has history of HIV. He says he has had it for more than 25 years and has been taking his antiretrovirals. He also takes some other medications probably for AIDS but he did not bring his list of medications and he does not know the name. He does not think he is on Bactrim or azithromycin. Patient was seen by the previous ER physician who diagnosed him with severe oral thrush. Patient says that he has had it for past couple weeks and is having difficulty eating or drinking because of the pain. He is on peritoneal dialysis and he says he dialyzed himself today. 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 Signout was to follow-up on the blood test results. I started him on IV fluid bolus. Critical lab was called for a potassium of 1.9. I have started him on a p.o. as well as IV potassium replacement. Patient will go to the ICU under the hospitalist care. She is accepted the patient. Patient told me that his last CD4 count and viral load was not good. Medical Decision Making MDM Narrative Medical decision making narrative: 52-year-old male with poor appetite, dizziness, general malaise and weakness. History of HIV and history of end- stage renal disease on dialysis. Normal saline solution 1 L IV bolus. Medical Screen Exam Complete: Yes Emergency Medical Condition: Yes Lab Data Result diagrams: 02/06/18 05:28 02/06/18 05:28 Lab Results 02/02/18 02/02/18 02/02/18 Range/Units 19:00 19:00 19:00 WBC 4.7 (4.0-11.0) th/mm3 RBC 3.97 L (4.50-5.90) mil/mm3 Hgb 10.5 L (13.0-17.0) gm/dL Hct 32.6 L (39.0-51.0) % MCV 82.0 (80.0-100.0) fL MCH 26.4 L (27.0-34.0) pg MCHC 32.2 (32.0-36.0) % RDW 18.8 H (11.6-17.2) % Plt Count 144 L (150-450) th/mm3 MPV 8.1 (7.0-11.0) fL Prelim Diff (Auto) Slide review pending Neut % (Auto) 78.2 H (16.0-70.0) % Lymph % (Auto) 4.5 L (9.0-44.0) % [place] % (Auto) 15.2 H (0.0-8.0) % Eos % (Auto) 1.3 (0.0-4.0) % Baso % (Auto) 0.8 (0.0-2.0) % Neut # (Auto) 3.7 (1.8-7.7) th/mm3 Lymph # (Auto) 0.2 L (1.0-4.8) th/mm3 [place] # (Auto) 0.7 (0.0-0.9) th/mm3 Eos # (Auto) 0.1 (0.0-0.4) th/mm3 Baso # (Auto) 0.0 (0.0-0.2) th/mm3 WBC Differential . Diff Scan Auto diff confirmed Differential Comment . Toxic Granulation (None) Platelet Estimate Low L (Normal) Platelet Morphology Normal (Normal) Ovalocytes 2+ H (None) PT 10.5 (9.8-11.6) sec INR 1.0 Ratio Sodium 133 L (136-145) meq/L Potassium 1.9 L* (3.5-5.1) meq/L Chloride 95 L (98-107) meq/L Carbon Dioxide 24.2 (21.0-32.0) meq/L Anion Gap 14 (5-15) meq/L BUN 36 H (7-18) mg/dL Creatinine 13.53 H* (0.60-1.30) mg/dL Estimated GFR 5 L (>89) mL/min POC Glucose (68-110) mg/dl Random Glucose 95 (74-106) mg/dL Calcium 7.7 L (8.5-10.1) mg/dL Prot Corrected Calcium (8.5-10.1) mg/dL Phosphorus (2.5-4.9) mg/dL Magnesium (1.5-2.5) mg/dL Total Bilirubin 0.5 (0.2-1.0) mg/dL AST 15 (15-37) U/L ALT 8 L (12-78) U/L Alkaline Phosphatase 83 (45-117) U/L Total Protein 7.0 (6.4-8.2) g/dL Albumin 2.2 L (3.4-5.0) g/dL Nasal Screen MRSA (PCR) (Negative) Stl C.difficile DNA Amp (Negative) St C. diff Tox Epid 027 (Negative) Absolute Lymphocytes (850-3900) cells/uL % CD3 Cells (57-85) % Absolute CD3 Count (840-3060) /uL % CD3-/CD16+/CD56+ (4-25) % Abs CD3-/CD16+/CD56+ (70-760) cells/uL % CD4 Cells (30-61) % Absolute CD4 Count (490-1740) cells/uL T-Help/Suppress Ratio (0.86-5.00) % CD8 Cells (12-42) % Absolute CD8 Count (180-1170) cells/uL % CD19 Cells (6-29) % Absolute CD19 Count (110-660) cells/uL RPR (Nonreactive) CMV Qnt PCR IU/mL (Undetected) IU/mL E. histolytica IgG Ab (Negative) Enterovirus Source Enterovirus Culture Hepatitis A IgM Ab (Nonreactive) Hep Bs Antigen (Nonreactive) Hep B Core IgM Ab (Nonreactive) Hep C IgG Ab (Nonreactive) 02/02/18 02/03/18 02/03/18 Range/Units 22:45 01:32 03:50 WBC 3.5 L (4.0-11.0) th/mm3 RBC 3.72 L (4.50-5.90) mil/mm3 Hgb 9.8 L (13.0-17.0) gm/dL Hct 31.1 L (39.0-51.0) % MCV 83.5 (80.0-100.0) fL MCH 26.3 L (27.0-34.0) pg MCHC 31.4 L (32.0-36.0) % RDW 18.7 H (11.6-17.2) % Plt Count 136 L (150-450) th/mm3 MPV 7.8 (7.0-11.0) fL Prelim Diff (Auto) Slide review pending Neut % (Auto) 81.6 H (16.0-70.0) % Lymph % (Auto) 3.8 L (9.0-44.0) % [place] % (Auto) 11.6 H (0.0-8.0) % Eos % (Auto) 2.1 (0.0-4.0) % Baso % (Auto) 0.9 (0.0-2.0) % Neut # (Auto) 2.8 (1.8-7.7) th/mm3 Lymph # (Auto) 0.1 L (1.0-4.8) th/mm3 [place] # (Auto) 0.4 (0.0-0.9) th/mm3 Eos # (Auto) 0.1 (0.0-0.4) th/mm3 Baso # (Auto) 0.0 (0.0-0.2) th/mm3 WBC Differential . Diff Scan Auto diff confirmed Differential Comment . Toxic Granulation 1+ H (None) Platelet Estimate Low L (Normal) Platelet Morphology Enlarged H (Normal) Ovalocytes 2+ H (None) PT (9.8-11.6) sec INR Ratio Sodium (136-145) meq/L Potassium 2.2 L* (3.5-5.1) meq/L Chloride (98-107) meq/L Carbon Dioxide (21.0-32.0) meq/L Anion Gap (5-15) meq/L BUN (7-18) mg/dL Creatinine (0.60-1.30) mg/dL Estimated GFR (>89) mL/min POC Glucose (68-110) mg/dl Random Glucose (74-106) mg/dL Calcium (8.5-10.1) mg/dL Prot Corrected Calcium (8.5-10.1) mg/dL Phosphorus (2.5-4.9) mg/dL Magnesium (1.5-2.5) mg/dL Total Bilirubin (0.2-1.0) mg/dL AST (15-37) U/L ALT (12-78) U/L Alkaline Phosphatase (45-117) U/L Total Protein (6.4-8.2) g/dL Albumin (3.4-5.0) g/dL Nasal Screen MRSA (PCR) Not detected (Negative) Stl C.difficile DNA Amp (Negative) St C. diff Tox Epid 027 (Negative) Absolute Lymphocytes (850-3900) cells/uL % CD3 Cells (57-85) % Absolute CD3 Count (840-3060) /uL % CD3-/CD16+/CD56+ (4-25) % Abs CD3-/CD16+/CD56+ (70-760) cells/uL % CD4 Cells (30-61) % Absolute CD4 Count (490-1740) cells/uL T-Help/Suppress Ratio (0.86-5.00) % CD8 Cells (12-42) % Absolute CD8 Count (180-1170) cells/uL % CD19 Cells (6-29) % Absolute CD19 Count (110-660) cells/uL RPR (Nonreactive) CMV Qnt PCR IU/mL (Undetected) IU/mL E. histolytica IgG Ab (Negative) Enterovirus Source Enterovirus Culture Hepatitis A IgM Ab (Nonreactive) Hep Bs Antigen (Nonreactive) Hep B Core IgM Ab (Nonreactive) Hep C IgG Ab (Nonreactive) 02/03/18 02/03/18 02/03/18 Range/Units 03:50 03:50 03:50 WBC (4.0-11.0) th/mm3 RBC (4.50-5.90) mil/mm3 Hgb (13.0-17.0) gm/dL Hct (39.0-51.0) % MCV (80.0-100.0) fL MCH (27.0-34.0) pg MCHC (32.0-36.0) % RDW (11.6-17.2) % Plt Count (150-450) th/mm3 MPV (7.0-11.0) fL Prelim Diff (Auto) Neut % (Auto) (16.0-70.0) % Lymph % (Auto) (9.0-44.0) % [place] % (Auto) (0.0-8.0) % Eos % (Auto) (0.0-4.0) % Baso % (Auto) (0.0-2.0) % Neut # (Auto) (1.8-7.7) th/mm3 Lymph # (Auto) (1.0-4.8) th/mm3 [place] # (Auto) (0.0-0.9) th/mm3 Eos # (Auto) (0.0-0.4) th/mm3 Baso # (Auto) (0.0-0.2) th/mm3 WBC Differential Diff Scan Differential Comment Toxic Granulation (None) Platelet Estimate (Normal) Platelet Morphology (Normal) Ovalocytes (None) PT (9.8-11.6) sec INR Ratio Sodium 139 (136-145) meq/L Potassium 2.2 L* (3.5-5.1) meq/L Chloride 100 (98-107) meq/L Carbon Dioxide 24.8 (21.0-32.0) meq/L Anion Gap 14 (5-15) meq/L BUN 37 H (7-18) mg/dL Creatinine 13.26 H* (0.60-1.30) mg/dL Estimated GFR 5 L (>89) mL/min POC Glucose (68-110) mg/dl Random Glucose 83 (74-106) mg/dL Calcium 7.1 L* (8.5-10.1) mg/dL Prot Corrected Calcium 7.8 L (8.5-10.1) mg/dL Phosphorus (2.5-4.9) mg/dL Magnesium 1.5 (1.5-2.5) mg/dL Total Bilirubin 0.4 (0.2-1.0) mg/dL AST 16 (15-37) U/L ALT 8 L (12-78) U/L Alkaline Phosphatase 69 (45-117) U/L Total Protein 5.7 L D (6.4-8.2) g/dL Albumin 1.8 L (3.4-5.0) g/dL Nasal Screen MRSA (PCR) (Negative) Stl C.difficile DNA Amp (Negative) St C. diff Tox Epid 027 (Negative) Absolute Lymphocytes 171 L (850-3900) cells/uL % CD3 Cells 79 (57-85) % Absolute CD3 Count 135 L (840-3060) /uL % CD3-/CD16+/CD56+ 17 (4-25) % Abs CD3-/CD16+/CD56+ 28 L (70-760) cells/uL % CD4 Cells 6 L (30-61) % Absolute CD4 Count Less than 20 L (490-1740) cells/uL T-Help/Suppress Ratio 0.10 L (0.86-5.00) % CD8 Cells 71 H (12-42) % Absolute CD8 Count 124 L (180-1170) cells/uL % CD19 Cells 1 L (6-29) % Absolute CD19 Count Less than 20 L (110-660) cells/uL RPR (Nonreactive) CMV Qnt PCR IU/mL (Undetected) IU/mL E. histolytica IgG Ab (Negative) Enterovirus Source Enterovirus Culture Hepatitis A IgM Ab (Nonreactive) Hep Bs Antigen (Nonreactive) Hep B Core IgM Ab (Nonreactive) Hep C IgG Ab (Nonreactive) 02/03/18 02/03/18 02/03/18 Range/Units 10:30 10:30 17:40 WBC (4.0-11.0) th/mm3 RBC (4.50-5.90) mil/mm3 Hgb (13.0-17.0) gm/dL Hct (39.0-51.0) % MCV (80.0-100.0) fL MCH (27.0-34.0) pg MCHC (32.0-36.0) % RDW (11.6-17.2) % Plt Count (150-450) th/mm3 MPV (7.0-11.0) fL Prelim Diff (Auto) Neut % (Auto) (16.0-70.0) % Lymph % (Auto) (9.0-44.0) % [place] % (Auto) (0.0-8.0) % Eos % (Auto) (0.0-4.0) % Baso % (Auto) (0.0-2.0) % Neut # (Auto) (1.8-7.7) th/mm3 Lymph # (Auto) (1.0-4.8) th/mm3 [place] # (Auto) (0.0-0.9) th/mm3 Eos # (Auto) (0.0-0.4) th/mm3 Baso # (Auto) (0.0-0.2) th/mm3 WBC Differential Diff Scan Differential Comment Toxic Granulation (None) Platelet Estimate (Normal) Platelet Morphology (Normal) Ovalocytes (None) PT (9.8-11.6) sec INR Ratio Sodium (136-145) meq/L Potassium 2.7 L* (3.5-5.1) meq/L Chloride (98-107) meq/L Carbon Dioxide (21.0-32.0) meq/L Anion Gap (5-15) meq/L BUN (7-18) mg/dL Creatinine (0.60-1.30) mg/dL Estimated GFR (>89) mL/min POC Glucose (68-110) mg/dl Random Glucose (74-106) mg/dL Calcium (8.5-10.1) mg/dL Prot Corrected Calcium (8.5-10.1) mg/dL Phosphorus (2.5-4.9) mg/dL Magnesium (1.5-2.5) mg/dL Total Bilirubin (0.2-1.0) mg/dL AST (15-37) U/L ALT (12-78) U/L Alkaline Phosphatase (45-117) U/L Total Protein (6.4-8.2) g/dL Albumin (3.4-5.0) g/dL Nasal Screen MRSA (PCR) (Negative) Stl C.difficile DNA Amp Negative (Negative) St C. diff Tox Epid 027 Negative (Negative) Absolute Lymphocytes (850-3900) cells/uL % CD3 Cells (57-85) % Absolute CD3 Count (840-3060) /uL % CD3-/CD16+/CD56+ (4-25) % Abs CD3-/CD16+/CD56+ (70-760) cells/uL % CD4 Cells (30-61) % Absolute CD4 Count (490-1740) cells/uL T-Help/Suppress Ratio (0.86-5.00) % CD8 Cells (12-42) % Absolute CD8 Count (180-1170) cells/uL % CD19 Cells (6-29) % Absolute CD19 Count (110-660) cells/uL RPR (Nonreactive) CMV Qnt PCR IU/mL (Undetected) IU/mL E. histolytica IgG Ab (Negative) Enterovirus Source Cancelled Enterovirus Culture Cancelled Hepatitis A IgM Ab (Nonreactive) Hep Bs Antigen (Nonreactive) Hep B Core IgM Ab (Nonreactive) Hep C IgG Ab (Nonreactive) 02/03/18 02/04/18 02/04/18 Range/Units 17:40 03:38 03:38 WBC (4.0-11.0) th/mm3 RBC (4.50-5.90) mil/mm3 Hgb (13.0-17.0) gm/dL Hct (39.0-51.0) % MCV (80.0-100.0) fL MCH (27.0-34.0) pg MCHC (32.0-36.0) % RDW (11.6-17.2) % Plt Count (150-450) th/mm3 MPV (7.0-11.0) fL Prelim Diff (Auto) Neut % (Auto) (16.0-70.0) % Lymph % (Auto) (9.0-44.0) % [place] % (Auto) (0.0-8.0) % Eos % (Auto) (0.0-4.0) % Baso % (Auto) (0.0-2.0) % Neut # (Auto) (1.8-7.7) th/mm3 Lymph # (Auto) (1.0-4.8) th/mm3 [place] # (Auto) (0.0-0.9) th/mm3 Eos # (Auto) (0.0-0.4) th/mm3 Baso # (Auto) (0.0-0.2) th/mm3 WBC Differential Diff Scan Differential Comment Toxic Granulation (None) Platelet Estimate (Normal) Platelet Morphology (Normal) Ovalocytes (None) PT (9.8-11.6) sec INR Ratio Sodium (136-145) meq/L Potassium (3.5-5.1) meq/L Chloride (98-107) meq/L Carbon Dioxide (21.0-32.0) meq/L Anion Gap (5-15) meq/L BUN (7-18) mg/dL Creatinine (0.60-1.30) mg/dL Estimated GFR (>89) mL/min POC Glucose (68-110) mg/dl Random Glucose (74-106) mg/dL Calcium (8.5-10.1) mg/dL Prot Corrected Calcium (8.5-10.1) mg/dL Phosphorus (2.5-4.9) mg/dL Magnesium (1.5-2.5) mg/dL Total Bilirubin (0.2-1.0) mg/dL AST (15-37) U/L ALT (12-78) U/L Alkaline Phosphatase (45-117) U/L Total Protein (6.4-8.2) g/dL Albumin (3.4-5.0) g/dL Nasal Screen MRSA (PCR) (Negative) Stl C.difficile DNA Amp (Negative) St C. diff Tox Epid 027 (Negative) Absolute Lymphocytes (850-3900) cells/uL % CD3 Cells (57-85) % Absolute CD3 Count (840-3060) /uL % CD3-/CD16+/CD56+ (4-25) % Abs CD3-/CD16+/CD56+ (70-760) cells/uL % CD4 Cells (30-61) % Absolute CD4 Count (490-1740) cells/uL T-Help/Suppress Ratio (0.86-5.00) % CD8 Cells (12-42) % Absolute CD8 Count (180-1170) cells/uL % CD19 Cells (6-29) % Absolute CD19 Count (110-660) cells/uL RPR Nonreactive (Nonreactive) CMV Qnt PCR IU/mL (Undetected) IU/mL E. histolytica IgG Ab Negative (Negative) Enterovirus Source Enterovirus Culture Hepatitis A IgM Ab Nonreactive (Nonreactive) Hep Bs Antigen Nonreactive (Nonreactive) Hep B Core IgM Ab Nonreactive (Nonreactive) Hep C IgG Ab Nonreactive (Nonreactive) 11/11/18 11/11/18 11/11/18 Range/Units 03:38 03:38 03:38 WBC 3.2 L (4.0-11.0) th/mm3 RBC 3.68 L (4.50-5.90) mil/mm3 Hgb 9.6 L (13.0-17.0) gm/dL Hct 30.6 L (39.0-51.0) % MCV 83.1 (80.0-100.0) fL MCH 26.2 L (27.0-34.0) pg MCHC 31.6 L (32.0-36.0) % RDW 18.8 H (11.6-17.2) % Plt Count 152 (150-450) th/mm3 MPV 8.0 (7.0-11.0) fL Prelim Diff (Auto) Neut % (Auto) (16.0-70.0) % Lymph % (Auto) (9.0-44.0) % [place] % (Auto) (0.0-8.0) % Eos % (Auto) (0.0-4.0) % Baso % (Auto) (0.0-2.0) % Neut # (Auto) (1.8-7.7) th/mm3 Lymph # (Auto) (1.0-4.8) th/mm3 [place] # (Auto) (0.0-0.9) th/mm3 Eos # (Auto) (0.0-0.4) th/mm3 Baso # (Auto) (0.0-0.2) th/mm3 WBC Differential Diff Scan Differential Comment Toxic Granulation (None) Platelet Estimate (Normal) Platelet Morphology (Normal) Ovalocytes (None) PT (9.8-11.6) sec INR Ratio Sodium 141 (136-145) meq/L Potassium 2.8 L* (3.5-5.1) meq/L Chloride 106 (98-107) meq/L Carbon Dioxide 25.0 (21.0-32.0) meq/L Anion Gap 10 (5-15) meq/L BUN 34 H (7-18) mg/dL Creatinine 12.34 H* (0.60-1.30) mg/dL Estimated GFR 5 L (>89) mL/min POC Glucose (68-110) mg/dl Random Glucose 111 H (74-106) mg/dL Calcium 7.0 L* (8.5-10.1) mg/dL Prot Corrected Calcium 7.8 L (8.5-10.1) mg/dL Phosphorus 2.3 L (2.5-4.9) mg/dL Magnesium 1.5 (1.5-2.5) mg/dL Total Bilirubin 0.4 (0.2-1.0) mg/dL AST 15 (15-37) U/L ALT 9 L (12-78) U/L Alkaline Phosphatase 70 (45-117) U/L Total Protein 5.6 L (6.4-8.2) g/dL Albumin 1.8 L (3.4-5.0) g/dL Nasal Screen MRSA (PCR) (Negative) Stl C.difficile DNA Amp (Negative) St C. diff Tox Epid 027 (Negative) Absolute Lymphocytes (850-3900) cells/uL % CD3 Cells (57-85) % Absolute CD3 Count (840-3060) /uL % CD3-/CD16+/CD56+ (4-25) % Abs CD3-/CD16+/CD56+ (70-760) cells/uL % CD4 Cells (30-61) % Absolute CD4 Count (490-1740) cells/uL T-Help/Suppress Ratio (0.86-5.00) % CD8 Cells (12-42) % Absolute CD8 Count (180-1170) cells/uL % CD19 Cells (6-29) % Absolute CD19 Count (110-660) cells/uL RPR (Nonreactive) CMV Qnt PCR IU/mL 5650 (Undetected) IU/mL E. histolytica IgG Ab (Negative) Enterovirus Source Enterovirus Culture Hepatitis A IgM Ab (Nonreactive) Hep Bs Antigen (Nonreactive) Hep B Core IgM Ab (Nonreactive) Hep C IgG Ab (Nonreactive) 02/04/18 02/05/18 02/05/18 Range/Units 15:19 00:31 05:17 WBC 3.1 L (4.0-11.0) th/mm3 RBC 3.76 L (4.50-5.90) mil/mm3 Hgb 9.7 L (13.0-17.0) gm/dL Hct 31.2 L (39.0-51.0) % MCV 83.0 (80.0-100.0) fL MCH 25.9 L (27.0-34.0) pg MCHC 31.2 L (32.0-36.0) % RDW 18.8 H (11.6-17.2) % Plt Count 136 L (150-450) th/mm3 MPV 8.0 (7.0-11.0) fL Prelim Diff (Auto) Neut % (Auto) (16.0-70.0) % Lymph % (Auto) (9.0-44.0) % [place] % (Auto) (0.0-8.0) % Eos % (Auto) (0.0-4.0) % Baso % (Auto) (0.0-2.0) % Neut # (Auto) (1.8-7.7) th/mm3 Lymph # (Auto) (1.0-4.8) th/mm3 [place] # (Auto) (0.0-0.9) th/mm3 Eos # (Auto) (0.0-0.4) th/mm3 Baso # (Auto) (0.0-0.2) th/mm3 WBC Differential Diff Scan Differential Comment Toxic Granulation (None) Platelet Estimate (Normal) Platelet Morphology (Normal) Ovalocytes (None) PT (9.8-11.6) sec INR Ratio Sodium (136-145) meq/L Potassium 3.4 L (3.5-5.1) meq/L Chloride (98-107) meq/L Carbon Dioxide (21.0-32.0) meq/L Anion Gap (5-15) meq/L BUN (7-18) mg/dL Creatinine (0.60-1.30) mg/dL Estimated GFR (>89) mL/min POC Glucose 117 H (68-110) mg/dl Random Glucose (74-106) mg/dL Calcium (8.5-10.1) mg/dL Prot Corrected Calcium (8.5-10.1) mg/dL Phosphorus (2.5-4.9) mg/dL Magnesium (1.5-2.5) mg/dL Total Bilirubin (0.2-1.0) mg/dL AST (15-37) U/L ALT (12-78) U/L Alkaline Phosphatase (45-117) U/L Total Protein (6.4-8.2) g/dL Albumin (3.4-5.0) g/dL Nasal Screen MRSA (PCR) (Negative) Stl C.difficile DNA Amp (Negative) St C. diff Tox Epid 027 (Negative) Absolute Lymphocytes (850-3900) cells/uL % CD3 Cells (57-85) % Absolute CD3 Count (840-3060) /uL % CD3-/CD16+/CD56+ (4-25) % Abs CD3-/CD16+/CD56+ (70-760) cells/uL % CD4 Cells (30-61) % Absolute CD4 Count (490-1740) cells/uL T-Help/Suppress Ratio (0.86-5.00) % CD8 Cells (12-42) % Absolute CD8 Count (180-1170) cells/uL % CD19 Cells (6-29) % Absolute CD19 Count (110-660) cells/uL RPR (Nonreactive) CMV Qnt PCR IU/mL (Undetected) IU/mL E. histolytica IgG Ab (Negative) Enterovirus Source Enterovirus Culture Hepatitis A IgM Ab (Nonreactive) Hep Bs Antigen (Nonreactive) Hep B Core IgM Ab (Nonreactive) Hep C IgG Ab (Nonreactive) 02/05/18 02/06/18 02/06/18 Range/Units 05:17 05:28 05:28 WBC 3.0 L (4.0-11.0) th/mm3 RBC 3.23 L (4.50-5.90) mil/mm3 Hgb 8.4 L (13.0-17.0) gm/dL Hct 27.0 L (39.0-51.0) % MCV 83.8 (80.0-100.0) fL MCH 26.1 L (27.0-34.0) pg MCHC 31.2 L (32.0-36.0) % RDW 18.9 H (11.6-17.2) % Plt Count 109 L (150-450) th/mm3 MPV 8.1 (7.0-11.0) fL Prelim Diff (Auto) Neut % (Auto) (16.0-70.0) % Lymph % (Auto) (9.0-44.0) % [place] % (Auto) (0.0-8.0) % Eos % (Auto) (0.0-4.0) % Baso % (Auto) (0.0-2.0) % Neut # (Auto) (1.8-7.7) th/mm3 Lymph # (Auto) (1.0-4.8) th/mm3 [place] # (Auto) (0.0-0.9) th/mm3 Eos # (Auto) (0.0-0.4) th/mm3 Baso # (Auto) (0.0-0.2) th/mm3 WBC Differential Diff Scan Differential Comment Toxic Granulation (None) Platelet Estimate (Normal) Platelet Morphology (Normal) Ovalocytes (None) PT (9.8-11.6) sec INR Ratio Sodium 145 144 (136-145) meq/L Potassium 3.5 3.6 (3.5-5.1) meq/L Chloride 112 H 113 H (98-107) meq/L Carbon Dioxide 22.3 21.6 (21.0-32.0) meq/L Anion Gap 11 9 (5-15) meq/L BUN 29 H 29 H (7-18) mg/dL Creatinine 11.19 H* D 10.86 H* (0.60-1.30) mg/dL Estimated GFR 6 L 6 L (>89) mL/min POC Glucose (68-110) mg/dl Random Glucose 84 96 (74-106) mg/dL Calcium 7.4 L* 7.0 L* (8.5-10.1) mg/dL Prot Corrected Calcium 8.2 L 8.3 L (8.5-10.1) mg/dL Phosphorus 1.5 L 1.7 L (2.5-4.9) mg/dL Magnesium 1.6 1.4 L (1.5-2.5) mg/dL Total Bilirubin 0.3 0.3 (0.2-1.0) mg/dL AST 30 43 H (15-37) U/L ALT 10 L 10 L (12-78) U/L Alkaline Phosphatase 71 64 (45-117) U/L Total Protein 5.6 L 4.7 L D (6.4-8.2) g/dL Albumin 1.7 L 1.4 L (3.4-5.0) g/dL Nasal Screen MRSA (PCR) (Negative) Stl C.difficile DNA Amp (Negative) St C. diff Tox Epid 027 (Negative) Absolute Lymphocytes (850-3900) cells/uL % CD3 Cells (57-85) % Absolute CD3 Count (840-3060) /uL % CD3-/CD16+/CD56+ (4-25) % Abs CD3-/CD16+/CD56+ (70-760) cells/uL % CD4 Cells (30-61) % Absolute CD4 Count (490-1740) cells/uL T-Help/Suppress Ratio (0.86-5.00) % CD8 Cells (12-42) % Absolute CD8 Count (180-1170) cells/uL % CD19 Cells (6-29) % Absolute CD19 Count (110-660) cells/uL RPR (Nonreactive) CMV Qnt PCR IU/mL (Undetected) IU/mL E. histolytica IgG Ab (Negative) Enterovirus Source Enterovirus Culture Hepatitis A IgM Ab (Nonreactive) Hep Bs Antigen (Nonreactive) Hep B Core IgM Ab (Nonreactive) Hep C IgG Ab (Nonreactive) Imaging Data Radiologist's impression: Chest X-Ray 02/02/18 18:47 CONCLUSION: No evidence of acute cardiopulmonary disease. Head CT 02/02/18 19:49 CONCLUSION: 1. No acute intracranial abnormality demonstrated. 2. Mild chronic white matter changes. . ECG Data Attestation: I personally reviewed and interpreted this ECG as follows: Interpretation: Twelve-lead EKG was reviewed by me. Normal sinus rhythm, normal axis, nonspecific ST-T wave changes. Heart rate of 84 bpm Discharge Plan Discharge Disposition Patient Disposition: 30 Still Patient Physicians Team ED Provider: Anais Nguyen Primary Care Provider: Primary Care Jazmine Garnett Attending Provider: Jesse Hartley Other Providers: Deric Tello V ; Mehnaz Martines ; Sabra Hutchison ; Patricia Tello Discharge Interventions Interventions: ED Discharge Assessment Last Done: 02/02/18 22:30 Vital Signs Last Done: 02/02/18 17:47 Status ED Status: Left Department Discharge Information Discharge Date/Time: 02/02/18 22:30
[2018-02-02 19:26] LABS: Baso % (Auto) 0.8 % (0.0-2.0); Eos # (Auto) 0.1 th/mm3 (0.0-0.4); Eos % (Auto) 1.3 % (0.0-4.0); Hematocrit 32.6 % (39.0-51.0); Hemoglobin 10.5 gm/dL (13.0-17.0); Lymph # (Auto) 0.2 th/mm3 (1.0-4.8); Lymph % (Auto) 4.5 % (9.0-44.0); Mean Corpuscular HGB Conc 32.2 % (32.0-36.0); Mean Corpuscular Hemoglobin 26.4 pg (27.0-34.0); Mean Platelet Volume 8.1 fL (7.0-11.0); Mono # (Auto) 0.7 th/mm3 (0.0-0.9); Mono % (Auto) 15.2 % (0.0-8.0); Neut # (Auto) 3.7 th/mm3 (1.8-7.7); Neut % (Auto) 78.2 % (16.0-70.0); Platelet Count 144 th/mm3 (150-450); Red Blood Count 3.97 mil/mm3 (4.50-5.90); Red Cell Distribution Width 18.8 % (11.6-17.2); White Blood Count 4.7 th/mm3 (4.0-11.0)
--- NOTE | 2018-02-02 19:27 | XR ---
EXAM DATE: 02/02/2018 7:02 PM EST AGE/SEX: 52 years / Male INDICATIONS: Shortness of breath and weakness. CLINICAL DATA: This is the patient's initial encounter. Patient reports that signs and symptoms have been present for 1 day and indicates a pain score of 4/10. MEDICAL/SURGICAL HISTORY: Hypertension. None. COMPARISON: [facility] [place], CHEST 2V PA&LAT, 01/17/2018. . FINDINGS: A single AP view of the chest demonstrates the lungs to be symmetrically aerated without evidence of mass, infiltrate or effusion. The cardiomediastinal contours are unremarkable. Osseous structures a re intact. CONCLUSION: No evidence of acute cardiopulmonary disease. Electronically signed by: Solitario Reveles MD 02/02/2018 7:26 PM EST
[2018-02-02 19:36] LABS: Prothrombin Time 10.5 sec (9.8-11.6)
[2018-02-02] MEDS: Potassium Chlor 20 mEq Premix 20 MEQ/100 ML PIGGYBACK IV.SIG SCH ×2 (19:55→23:31)
[2018-02-02] MEDS ORDERED: Sod Chloride 0.9% Inj 1,000 ML IV.SIG SCH (20:00)
[2018-02-02 20:04] LABS: Alanine Aminotransferase 8 U/L (12-78); Albumin 2.2 g/dL (3.4-5.0); Alkaline Phosphatase 83 U/L (45-117); Anion Gap 14 meq/L (5-15); Aspartate Aminotransferase 15 U/L (15-37); Blood Urea Nitrogen 36 mg/dL (7-18); Calcium 7.7 mg/dL (8.5-10.1); Carbon Dioxide 24.2 meq/L (21.0-32.0); Chloride 95 meq/L (98-107); Glomerular Filtration Rate 5 mL/min (>89); Glucose,Random 95 mg/dL (74-106); Sodium 133 meq/L (136-145)
[2018-02-02 20:12] LABS: Ovalocytes 2+; Platelet Morphology Normal (Normal)
[2018-02-02 20:14] LABS: Potassium 1.9 meq/L (3.5-5.1)
[2018-02-02] MEDS ORDERED: Bisacodyl 10 MG Supp RECTAL PRN (20:47)
--- NOTE | 2018-02-02 20:48 | P.HPIM ---
History of Present Illness Primary Care Physician: No Primary Care Physician History of Present Illness: This is a 52-year-old male with a PMH of HIV (CD4 <20 03/09/17) and ESRD on PD who presented to the ER w/ c/o generalized weakness, dizziness and decreased appetite x2 wks. States symptoms worse today. Denies fever, chills, cough or chest pain. Notes few episodes of nausea, vomiting x2 today. States he used to follow w/ ID for HIV but does not have follow-up currently, does not know last CD4 count or viral load, but reports compliance w/ meds. Has been on Nystatin for thrush. On arrival, BP 92/52, HR 117, O2 sat 98% on RA, Temp 99.6. Hemoglobin 10.5. Platelets 144. WBC 4.7. INR 1.0. K+ 1.9. Creatinine 13.53. CXR with no acute findings. S/p PO K+ replacement in ER, however unable to tolerate. EKG w/ no acute findings. - Diagnosis (1) HIV (human immunodeficiency virus infection) (2) Thrush (3) Hypokalemia (4) ESRD on peritoneal dialysis Inpatient Certification: I certify that the inpatient services were ordered in accordance with Medicare regulations governing the order. This includes certification that hospital inpatient services are reasonable and necessary and in the case of services not specified as inpatient-only under 42 CFR 419.22(n), that they are appropriately provided as inpatient services in accordance to with the 2-midnight benchmark under 43 CFR 412.3(e) Estimated Total Length of Stay (Days): 2 Plans for Post Hospital Care: Not yet determined Review of Systems PAST FAMILY HISTORY: Reviewed. No h/o DM or CAD All other systems reviewed negative except as stated in HPI PMFSH - History History Provided By: Patient - Medical History Medical History: Medical History (Last Reviewed 02/02/18 @ 18:57 by Atif Chan MD) HIV (human immunodeficiency virus infection) Hypotension Renal failure - Tobacco History Second Hand Smoke Exposure: No Tobacco Use In Past 30 Days: No Smoking Status: Never smoker Tobacco Type: Cigarettes - Alcohol History How Often Do You Have a Drink Containing Alcohol: Never - Substance Use History Substance History: No History of Abuse - Travel History Recent Travel in the [place] Within the Last 8 Weeks: No Recent Travel Out of the Country Within the Last 8 Weeks: No - Immunization History Tetanus Immunization: >5 Years Medications and Allergies Active Medications: Active Medications Sodium Chloride (Ns Inj) 1,000 mls @ 1,000 mls/hr IV.SIG BOLUS PIERRE Stop: 02/02/18 20:59 Potassium Chloride (Kcl 20 Meq Premix Inj) 20 meq in 100 mls @ 50 mls/hr IV.SIG Q2H PIERRE Stop: 02/03/18 00:29 Allergies Allergy/AdvReac Type Severity Reaction Status Date / Time No Known Allergies Allergy Verified 02/02/18 13:58 Home Medications Medication Instructions Recorded Confirmed Type abacavir 300 mg PO DAILY 02/02/18 02/02/18 History amlodipine 10 mg PO DAILY 02/02/18 02/02/18 History azithromycin 500 mg PO DAILY 02/02/18 02/02/18 History calcium acetate 667 mg PO TID 02/02/18 02/02/18 History dolutegravir [Tivicay] 50 mg PO DAILY 02/02/18 02/02/18 History ethambutol 800 mg PO DAILY 02/02/18 02/02/18 History fluconazole 100 mg PO DAILY 02/02/18 02/02/18 History labetalol 200 mg PO BID 02/02/18 02/02/18 History lisinopril 5 mg PO DAILY 02/02/18 02/02/18 History nystatin 1 ml PO QID 02/02/18 02/02/18 History rifabutin 300 mg PO DAILY 02/02/18 02/02/18 History Exam Vital signs: Vital Signs 02/02/18 13:54 02/02/18 17:47 Temperature 99.6 F Pulse Rate 117 H 79 Respiratory Rate 18 18 Blood Pressure 92/52 L 105/71 Pulse Oximetry 97 98 Intake & Output 02/02/18 02/02/18 02/03/18 06:59 18:59 06:59 Weight 56.245 kg Narrative: PE: GENERAL: Middle-aged black male in no acute distress, appears weak/tired. SKIN: Focused skin assessment warm and dry. HEENT: PERRLA, EOMI. No scleral icterus or conjunctival pallor. No lid lag or facial droop. +oral thrush CARDIOVASCULAR: Regular rate and rhythm. No obvious murmurs to auscultation. No chest tenderness to palpation. RESPIRATORY: No obvious rhonchi or wheezing. Clear to auscultation. Breath sounds equal bilaterally. GASTROINTESTINAL: Abdomen soft, non-tender, nondistended. BS normal. MUSCULOSKELETAL: Extremities without clubbing, cyanosis, or edema. No obvious deformities. NEUROLOGICAL: Awake, alert and oriented x4. No focal neurologic deficits. Moving both upper and lower extremities spontaneously. PSYCHIATRIC: Appropriate mood and affect. Insight and judgment normal. Results - Labs CBC & Chem 7: 02/02/18 19:00 02/02/18 19:00 Labs: Short CBC 02/02/18 Range/Units 19:00 WBC 4.7 (4.0-11.0) th/mm3 Hgb 10.5 L (13.0-17.0) gm/dL Hct 32.6 L (39.0-51.0) % Plt Count 144 L (150-450) th/mm3 BMP 02/02/18 19:00 Sodium 133 L Potassium 1.9 L* Chloride 95 L Carbon Dioxide 24.2 BUN 36 H Creatinine 13.53 H* Calcium 7.7 L Liver Function 02/02/18 Range/Units 19:00 Total Bilirubin 0.5 (0.2-1.0) mg/dL AST 15 (15-37) U/L ALT 8 L (12-78) U/L Alkaline Phosphatase 83 (45-117) U/L Albumin 2.2 L (3.4-5.0) g/dL - Imaging Impressions Chest X-Ray 02/02/18 18:47 CONCLUSION: No evidence of acute cardiopulmonary disease. Caprini VTE Risk Assessment Caprini VTE Risk Assessment: No/Low Risk (score <= 1) Caprini Risk Assessment Model: Point Value = 1 Point Value = 2 Point Value = 3 Point Value = 5 Age 41-60 Minor surgery BMI > 25 kg/m2 Swollen legs Varicose veins or History of unexplained or recurrent spontaneous Oral contraceptives or hormone replacement Sepsis (< 1 month) Serious lung disease, including pneumonia (< 1 month) Abnormal pulmonary function Acute myocardial infarction Congestive heart failure (< 1 month) History of inflammatory bowel disease Medical patient at bed rest Age 61-74 Arthroscopic surgery Major open surgery (> 45 min) Laparoscopic surgery (> 45 min) Malignancy Confined to bed (> 72 hours) Immobilizing plaster cast Central venous access Age >= 75 History of VTE Family history of VTE Factor V Leiden Prothrombin [id number] Lupus anticoagulant Anticardiolipin antibodies Elevated serum homocysteine Heparin-induced thrombocytopenia Other congenital or acquired thrombophilia Stroke (< 1 month) Elective arthroplasty Hip, pelvis, or leg fracture Acute spinal cord injury (< 1 month) Prophylaxis Regimen: Total Risk Factor Score Risk Level Prophylaxis Regimen 0-1 Low Early ambulation 2 Moderate Order ONE of the following: *Sequential Compression Device (SCD) *Heparin 5000 units SQ BID 3-4 Higher Order ONE of the following medications: *Heparin 5000 units SQ TID *Enoxaparin/Lovenox 40 mg SQ daily (WT < 150 kg, CrCl > 30 mL/min) *Enoxaparin/Lovenox 30 mg SQ daily (WT < 150 kg, CrCl > 10-29 mL/min) *Enoxaparin/Lovenox 30 mg SQ BID (WT < 150 kg, CrCl > 30 mL/min) AND/OR *Sequential Compression Device (SCD) 5 or more Highest Order ONE of the following medications: *Heparin 5000 units SQ TID (Preferred with Epidurals) *Enoxaparin/Lovenox 40 mg SQ daily (WT < 150 kg, CrCl > 30 mL/min) *Enoxaparin/Lovenox 30 mg SQ daily (WT < 150 kg, CrCl > 10-29 mL/min) *Enoxaparin/Lovenox 30 mg SQ BID (WT < 150 kg, CrCl > 30 mL/min) AND *Sequential Compression Device (SCD) Assessment and Plan - Assessment (1) HIV (human immunodeficiency virus infection) Code(s): B20 - Human immunodeficiency virus [HIV] disease Status: Acute (2) Thrush Code(s): B37.0 - Candidal stomatitis Status: Acute (3) Hypokalemia Code(s): E87.6 - Hypokalemia Status: Acute (4) ESRD on peritoneal dialysis Code(s): N18.6 - End stage renal disease; Z99.2 - Dependence on renal dialysis Status: Acute - Plan A/P: 1. HIV/AIDS: Last CD4 <20 on 03/09/17, reports compliance w/ meds, but has no follow-up. Consult ID, repeat lymphocyte panel, start Bactrim/Zithro for prophylaxis. Hold antivirals in light of low-grade temp, possible infection, will await ID recommendations. 2. Thrush: reports being on Nystatin as outpatient w/ minimal improvement, start Diflucan 200mg x1 now, then 100mg qd. Viscous Lidocaine prn. IVF, diet as tolerated. 3. Hypokalemia: K+ 1.9, EKG reviewed-no acute changes, will admit to ICU in light of significant electrolyte abnormality. Telemetry. s/p PO replacement, however unable to tolerate due to nausea/vomiting. Continue w/ IV replacement, recheck K+, additional replacement as needed. 4. ESRD on PD: Follows w/ Dr. Shah, will place consult to resume PD. 5. DVT Prophylaxis: SCD/Teds 6. Social work for d/c planning as needed 7. Case discussed w/ ER physician at length, labs/records/imaging reviewed by me
--- NOTE | 2018-02-02 21:41 | ECG ---
Date Performed: 02/02/2018 Time Performed: 20:32:52 PTAGE: 52 years EKG: Sinus rhythm NONSPECIFIC T-WAVE ABNORMALITY BORDERLINE ECG No significant change from prior electrocardiogram. PREVIOUS TRACING : 01/17/2018 18.09 DOCTOR: Robin Dillon Interpretating Date/Time 02/02/2018 21:40:44
--- NOTE | 2018-02-02 21:48 | ECG ---
Date Performed: 02/02/2018 Time Performed: 17:48:23 PTAGE: 52 years EKG: Sinus rhythm NONSPECIFIC T-WAVE ABNORMALITY BORDERLINE ECG Compared to prior electrocardiogram, T-wave changes ar e slightly more marked. DOCTOR: Robin Dillon Interpretating Date/Time 02/02/2018 21:46:58
--- NOTE | 2018-02-02 21:58 | CT ---
EXAM DATE: 02/02/2018 9:54 PM EST AGE/SEX: 52 years / Male INDICATIONS: Dizziness. CLINICAL DATA: This is the patient's initial encounter. Patient reports that signs and symptoms have been present for 1 week and indicates a pain score of 0/10. MEDICAL/SURGICAL HISTORY: HIV. Renal failure, chronic. Hypotension None. RADIATION DOSE: 56.35 CTDI (mGy) COMPARISON: [facility] [place], MRI BRAIN W/O CONTRAST, 01/11/2017. . TECHNIQUE: CT of the head without contrast. Using automated exposure control and adjustment of the mA and/or kV according to patient size, radiation dose was kept as low as reasonably achievable to ob tain optimal diagnostic quality images. DICOM format image data is available electronically for revi ew and comparison. FINDINGS: Cerebrum: The ventricles are normal for age. No evidence of midline shift, mass lesion, hemorrhage or acute infarction. No extraaxial fluid collections are seen. Mild, chronic low-attenuation seen in the periventricular white matter. Posterior Fossa: The cerebellum and brainstem are intact. The 4th ventricle is midline. The cerebe llopontine angle is unremarkable. Extracranial: The visualized portion of the orbits is intact. Skull: The calvaria is intact. No evidence of skull fracture. CONCLUSION: 1. No acute intracranial abnormality demonstrated. 2. Mild chronic white matter changes. . Electronically signed by: Solitario Reveles MD 02/02/2018 9:57 PM EST
[2018-02-02] MEDS: Sod Chloride 0.9% Inj 1,000 ML IV.CONT SCH (22:07)
[2018-02-02] MEDS: Senna/Docusate Sodium 8.6/50 MG Tablet PO SCH (23:26)
[2018-02-03] MEDS ORDERED: Chlorhexidine Gluconate 2% 1 Pack (2 Cloths) TOPICAL PRN (04:00)
[2018-02-03 04:19] LABS: Baso % (Auto) 0.9 % (0.0-2.0); Eos # (Auto) 0.1 th/mm3 (0.0-0.4); Eos % (Auto) 2.1 % (0.0-4.0); Hematocrit 31.1 % (39.0-51.0); Hemoglobin 9.8 gm/dL (13.0-17.0); Lymph # (Auto) 0.1 th/mm3 (1.0-4.8); Lymph % (Auto) 3.8 % (9.0-44.0); Mean Corpuscular HGB Conc 31.4 % (32.0-36.0); Mean Corpuscular Hemoglobin 26.3 pg (27.0-34.0); Mean Corpuscular Volume 83.5 fL (80.0-100.0); Mean Platelet Volume 7.8 fL (7.0-11.0); Mono # (Auto) 0.4 th/mm3 (0.0-0.9); Mono % (Auto) 11.6 % (0.0-8.0); Neut # (Auto) 2.8 th/mm3 (1.8-7.7); Neut % (Auto) 81.6 % (16.0-70.0); Platelet Count 136 th/mm3 (150-450); Red Blood Count 3.72 mil/mm3 (4.50-5.90); Red Cell Distribution Width 18.7 % (11.6-17.2); White Blood Count 3.5 th/mm3 (4.0-11.0)
[2018-02-03 04:52] LABS: Albumin 1.8 g/dL (3.4-5.0); Calcium 7.1 mg/dL (8.5-10.1); Carbon Dioxide 24.8 meq/L (21.0-32.0)
[2018-02-03 04:55] LABS: Total Protein 5.7 g/dL (6.4-8.2)
[2018-02-03] MEDS: Chlorhexidine Gluconate 2% 1 Pack (2 Cloths) TOPICAL SCH (04:59)
[2018-02-03 05:02] LABS: Potassium 2.2 meq/L (3.5-5.1)
[2018-02-03] MEDS ORDERED: Mag Sulf 1 gm/100 ml Premix 100 ML IV.SIG PRN (05:13)
[2018-02-03] MEDS: Potassium Chlor 20 mEq Premix 20 MEQ/100 ML PIGGYBACK IV.SIG SCH ×6 (06:10→22:21)
[2018-02-03 06:58] LABS: Ovalocytes 2+
[2018-02-03 06:59] LABS: Toxic Granulation 1+
[2018-02-03] MEDS: Senna/Docusate Sodium 8.6/50 MG Tablet PO SCH ×2 (09:21→20:26)
--- NOTE | 2018-02-03 09:33 | P.PNIM ---
Subjective Interval history: Pt seen and examined for follow-up of acute on chronic renal failure, hypokalemia, HIV, and generalized weakness. Admitted overnight. Patient has no complaints during my encounter but asks multiple times, "Am I dying?" When asked about his HIV he admits that he has not seen an infectious disease MD in over a year and rarely takes his antiretrovirals. He attributes this to forgetting. He denies any rash, chest pain, shortness of breath, abdominal pain , fever, or chills. D/w RN who states the patient is having diarrhea that appears bloody and mucous like. Physical Exam Vital signs: Vital Signs 02/02/18 13:54 02/02/18 17:47 02/02/18 22:09 Temperature 99.6 F Pulse Rate 117 H 79 Respiratory Rate 18 18 Blood Pressure 92/52 L 105/71 Pulse Oximetry 97 98 98 02/02/18 22:40 02/02/18 22:45 02/02/18 23:00 Temperature 98.8 F Pulse Rate 82 83 80 Respiratory Rate 22 21 19 Blood Pressure 122/75 127/79 123/77 Pulse Oximetry 94 L 02/02/18 23:15 02/02/18 23:30 02/02/18 23:45 Temperature Pulse Rate 78 77 76 Respiratory Rate 16 22 19 Blood Pressure 123/81 120/75 120/78 Pulse Oximetry 93 L 94 L 02/03/18 00:00 02/03/18 01:00 02/03/18 01:05 Temperature Pulse Rate 83 88 86 Respiratory Rate 20 21 22 Blood Pressure 138/80 120/77 Pulse Oximetry 95 94 L 95 02/03/18 02:00 02/03/18 02:05 02/03/18 03:00 Temperature Pulse Rate 70 77 75 Respiratory Rate 17 17 20 Blood Pressure 110/73 Pulse Oximetry 95 96 98 02/03/18 03:05 02/03/18 04:00 02/03/18 04:21 Temperature 98.6 F Pulse Rate 78 85 77 Respiratory Rate 21 23 19 Blood Pressure 124/84 127/88 Pulse Oximetry 98 82 L 88 L 02/03/18 05:00 02/03/18 05:05 Temperature Pulse Rate 78 82 Respiratory Rate 17 21 Blood Pressure 130/86 Pulse Oximetry Intake & Output 02/02/18 02/03/18 02/03/18 18:59 06:59 18:59 Intake Total 300 / 300 100 / 100 Output Total 100 / 100 Balance 200 / 200 100 / 100 Weight 56.245 kg 61.6 kg Intake: IV 300 / 300 100 / 100 Diflucan 200 mg Premix Bag 100 100 / 100 ML @ 100 mls/hr IV.SIG ONCE ONE Rx#:[id number] KCl 20 mEq Premix Inj 20 meq In 200 / 200 100 / 100 100 ml @ 50 mls/hr IV.SIG Q2H PIERRE Rx#:[id number] Oral 0 / 0 Output: Urine 100 / 100 Other: Date of Last Bowel Movement 02/03/18 # Incontinent Bowel Movements 2 Weight On Admission 61.6 kg Narrative: GENERAL: Thin AA male resting in bed in NAD. SKIN: Warm and dry. Hyperpigmented macular lesions over upper extremities. Buttock with several subcentimeter, hypopigmented lesions, some appear to be slightly erythematous like a pressure wound. HEENT: AT/NC. Pupils equal and round. MMM. +oral thrush. HEART: RRR no m/r/g. LUNGS: CTAB without wheezes or crackles. ABDOMEN: +BS, soft, NT, ND. EXTREMITIES: No LE edema. SCDs in place. Xerosis of feet bilaterally. NEURO: Awake and alert. PSYCH: Depressed affect. Results - Labs CBC & Chem 7: 02/03/18 03:50 02/03/18 03:50 Laboratory Results - last 24 hr 02/02/18 02/02/18 02/02/18 19:00 19:00 19:00 WBC 4.7 RBC 3.97 L Hgb 10.5 L Hct 32.6 L MCV 82.0 MCH 26.4 L MCHC 32.2 RDW 18.8 H Plt Count 144 L MPV 8.1 Prelim Diff (Auto) Slide review pending Neut % (Auto) 78.2 H Lymph % (Auto) 4.5 L Stafford % (Auto) 15.2 H Eos % (Auto) 1.3 Baso % (Auto) 0.8 Neut # (Auto) 3.7 Lymph # (Auto) 0.2 L Stafford # (Auto) 0.7 Eos # (Auto) 0.1 Baso # (Auto) 0.0 WBC Differential . Diff Scan Auto diff confirmed Differential Comment . Toxic Granulation Platelet Estimate Low L Platelet Morphology Normal Ovalocytes 2+ H PT 10.5 INR 1.0 Sodium 133 L Potassium 1.9 L* Chloride 95 L Carbon Dioxide 24.2 Anion Gap 14 BUN 36 H Creatinine 13.53 H* Estimated GFR 5 L Random Glucose 95 Calcium 7.7 L Prot Corrected Calcium Magnesium Total Bilirubin 0.5 AST 15 ALT 8 L Alkaline Phosphatase 83 Total Protein 7.0 Albumin 2.2 L Nasal Screen MRSA (PCR) 02/02/18 02/03/18 02/03/18 22:45 01:32 03:50 WBC 3.5 L RBC 3.72 L Hgb 9.8 L Hct 31.1 L MCV 83.5 MCH 26.3 L MCHC 31.4 L RDW 18.7 H Plt Count 136 L MPV 7.8 Prelim Diff (Auto) Slide review pending Neut % (Auto) 81.6 H Lymph % (Auto) 3.8 L Stafford % (Auto) 11.6 H Eos % (Auto) 2.1 Baso % (Auto) 0.9 Neut # (Auto) 2.8 Lymph # (Auto) 0.1 L Stafford # (Auto) 0.4 Eos # (Auto) 0.1 Baso # (Auto) 0.0 WBC Differential . Diff Scan Auto diff confirmed Differential Comment . Toxic Granulation 1+ H Platelet Estimate Low L Platelet Morphology Enlarged H Ovalocytes 2+ H PT INR Sodium Potassium 2.2 L* Chloride Carbon Dioxide Anion Gap BUN Creatinine Estimated GFR Random Glucose Calcium Prot Corrected Calcium Magnesium Total Bilirubin AST ALT Alkaline Phosphatase Total Protein Albumin Nasal Screen MRSA (PCR) Not detected 02/03/18 02/03/18 03:50 03:50 WBC RBC Hgb Hct MCV MCH MCHC RDW Plt Count MPV Prelim Diff (Auto) Neut % (Auto) Lymph % (Auto) Stafford % (Auto) Eos % (Auto) Baso % (Auto) Neut # (Auto) Lymph # (Auto) Stafford # (Auto) Eos # (Auto) Baso # (Auto) WBC Differential Diff Scan Differential Comment Toxic Granulation Platelet Estimate Platelet Morphology Ovalocytes PT INR Sodium 139 Potassium 2.2 L* Chloride 100 Carbon Dioxide 24.8 Anion Gap 14 BUN 37 H Creatinine 13.26 H* Estimated GFR 5 L Random Glucose 83 Calcium 7.1 L* Prot Corrected Calcium 7.8 L Magnesium 1.5 Total Bilirubin 0.4 AST 16 ALT 8 L Alkaline Phosphatase 69 Total Protein 5.7 L D Albumin 1.8 L Nasal Screen MRSA (PCR) - Imaging Impressions Chest X-Ray 02/02/18 18:47 CONCLUSION: No evidence of acute cardiopulmonary disease. Head CT 02/02/18 19:49 CONCLUSION: 1. No acute intracranial abnormality demonstrated. 2. Mild chronic white matter changes. . Assessment and Plan - Assessment (1) HIV (human immunodeficiency virus infection) Code(s): B20 - Human immunodeficiency virus [HIV] disease Status: Acute (2) Thrush Code(s): B37.0 - Candidal stomatitis Status: Acute (3) Hypokalemia Code(s): E87.6 - Hypokalemia Status: Acute (4) ESRD on peritoneal dialysis Code(s): N18.6 - End stage renal disease; Z99.2 - Dependence on renal dialysis Status: Acute - Plan 52 YOAAM with history of HIV and ESRD on PD admitted overnight with generalized weakness, decreased appetite, nausea, and vomiting found to have significant hypokalemia and acute on chronic renal failure. 1. ESRD on PD - acute on chronic - Patient follows with Dr. Shah - Creatinine back in February ~ and was 13.53 on admission - Possibly secondary to decreased PO intake - NS at 100 ml/hr - Nephrology consulted - Avoid nephrotoxic agents and renally dose meds 2. HIV - Last CD4 <20 on 03/09/17 - Noncompliant with f/u and taking antiretrovirals - Not on any prophylaxis. Started on Bactrim and Azithromycin - CD4 count pending - Check viral load - ID consulted 3. Hypokalemia - Potassium 1.9 on admission, repleted with IV KCl - Repeat 2.2 this AM - Possibly secondary to diarrhea - Continue to replace and follow level closely - Mg WNL - Monitor on tele 4. Diarrhea - Check stool studies 5. 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
[2018-02-03] MEDS: Heparin - SQ 10,000 UNITS/ML Vial SQ SCH ×2 (11:08→20:24)
--- NOTE | 2018-02-03 13:07 | P.CONID ---
History of Present Illness Service: Infectious Disease Consult date: 02/03/18 Requesting Physician: Modesta Cruz Reason for Consult: Evaluation and Mment of HIV/AIDS, Oral thrush,hypotension Primary Care Provider: No Primary Care Physician History of Present Illness: is a 52-year-old -[place] past medical history significant for HIV diagnosed when he was 23 years old. Patient reports that he used to see RADHA Leslie at Dr. Paul office for his HIV care. He reports that the last time he saw her was approximately 2 years back. When asked patient did not know his most recent CD4 count or viral load. He did not know his current HIV medication regimen. When questioned who was prescribing his HIV medication he replied that it may have been either Dr. Paul office or 's office. The last known CD4 count for the patient is less than 2 and this was approximately a year back. Patient also is on peritoneal dialysis for his end- stage renal disease and follows up with . Patient reports that approximately 2 weeks back he started developing diarrhea with no blood. He denies any black tarry stools or fresh blood per rectum. He initially did not have any nausea or vomiting subsequently reports having developed nausea. Approximately 4 days prior to admission patient lost his appetite had nausea and may be some difficulty swallowing. Patient reports that when he presented to the emergency department he was questioned about white patches on his tongue and was told that it was oral thrush. He thinks it is the first time he has been told he has oral thrush. He denies any prior admissions for AIDS defining illnesses. He does not remember being on any prophylactic regimen for prevention of infections. At baseline patient is able to wake up in the morning drive his car and go to get some breakfast as well as lunch and stay at the mall for several hours. He thinks he may be depressed because after getting home he pretty much stays in his so far all day. He reports that he has a partner who lives in [place] but they are not sexually active for the last 6 months. With this background patient presents to the emergency department at [facility] with complaints of generalized weakness, dizziness decreased appetite for approximately 2 weeks. Due to worsening symptoms of nausea and inability to stand due to extreme weakness he presented to the emergency department. He denies any fevers chills night sweats. He denies any other systemic symptoms. He undergoes peritoneal dialysis every night and denies any abdominal pain or discharge from the PD catheter site. On arrival to the emergency department his blood pressure was 92 x 52 his heart rate was 117 his O2 sats were 98% on room air and he had a temperature of 99.6. Since admission he has had no fevers. He has been receiving IV fluids but is not on any pressors. Patient's creatinine was found to be 13.53 and his potassium was 1.9 and therefore patient is admitted to the intensive care unit. At the present time although he is in the ICU he has been managed by the primary care team. His chest x-ray showed no acute findings. Infectious diseases consulted for evaluation and management of possible sepsis, HIV/AIDS, oral thrush possible esophagitis. Review of Systems All other systems reviewed negative except as stated in HPI PMFSH - History History Provided By: Patient - Medical History Medical History: Medical History (Last Reviewed 02/05/18 @ 08:15 by [facility] [employer], [employer]) HIV (human immunodeficiency virus infection) Hypotension Renal failure - Tobacco History Second Hand Smoke Exposure: Yes Tobacco Use In Past 30 Days: No Smoking Status: Former smoker Tobacco Type: Cigarettes - Alcohol History How Often Do You Have a Drink Containing Alcohol: Never - Substance Use History Substance History: Unable to Obtain - Travel History Recent Travel in the [place] Within the Last 8 Weeks: No Recent Travel Out of the Country Within the Last 8 Weeks: No - Immunization History Tetanus Immunization: Unsure Medications and Allergies Active Medications: Active Medications Acetaminophen (Tylenol) 650 mg PO Q4H PRN PRN Reason: Temp > 100.4 Al Hydroxide/Mg Hydroxide (Milk Of Blake Liq) 30 ml PO Q12H PRN PRN Reason: Mild Constipation Azithromycin (Zithromax) 1,200 mg PO Q7D [facility] Last Admin: 02/03/18 09:00 Dose: 1,200 mg Bisacodyl (Dulcolax Supp) 10 mg RECTAL DAILY PRN PRN Reason: SEVERE CONSITIPATION Chlorhexidine Gluconate (Chlorhexidine 2% Cloth) 3 pack TOPICAL DAILY@0400 [facility] Stop: 02/08/18 03:59 Last Admin: 02/03/18 04:59 Dose: Not Given Chlorhexidine Gluconate (Chlorhexidine 2% Cloth) 3 pack TOPICAL DAILY@0400 PRN PRN Reason: Extra cloth needed Stop: 02/08/18 03:59 Heparin Sodium (Porcine) (Heparin Inj) 5,000 units SQ Q12HR [facility] Last Admin: 02/03/18 11:08 Dose: 5,000 units Fluconazole (Diflucan 100 Mg Premix Bag) 50 mls @ 50 mls/hr IV.SIG Q24H [facility] Sodium Chloride (Ns Inj) 1,000 mls @ 100 mls/hr IV.CONT .Q10H [facility] Last Infusion: 02/03/18 06:10 Dose: 0 mls/hr Potassium Chloride (Kcl 20 Meq Premix Inj) 20 meq in 100 mls @ 50 mls/hr IV.SIG Q2H [facility] Stop: 02/03/18 13:10 Last Admin: 02/03/18 11:10 Dose: 50 mls/hr Magnesium Sulfate/Dextrose (Magnesium Sulfate 1 Gm/D5w 100 Ml Premix) 100 mls @ 100 mls/hr IV.SIG ONCE PRN PRN Reason: If magnesium is < 1.6 Lactulose (Lactulose Liq) 30 ml PO DAILY PRN PRN Reason: SEVERE CONSITIPATION Lidocaine HCl (Lidocaine 2% Viscous) 15 ml SWISH-SWAL Q4H PRN PRN Reason: SORE THROAT Ondansetron HCl (Zofran Inj) 4 mg IV.PUSH Q6H PRN PRN Reason: NAUSEA OR VOMITING Last Admin: 02/03/18 09:12 Dose: 4 mg Senna/Docusate Sodium (Dee-Colace) 1 tab PO BID [facility] Last Admin: 02/03/18 09:21 Dose: Not Given Sennosides (Senokot) 17.2 mg PO Q12H PRN PRN Reason: Moderate Constipation Allergies Allergy/AdvReac Type Severity Reaction Status Date / Time No Known Allergies Allergy Verified 02/02/18 13:58 Home Medications Medication Instructions Recorded Confirmed Type abacavir 300 mg PO DAILY 02/02/18 02/02/18 History amlodipine 10 mg PO DAILY 02/02/18 02/02/18 History azithromycin 500 mg PO DAILY 02/02/18 02/02/18 History calcium acetate 667 mg PO TID 02/02/18 02/02/18 History dolutegravir [Tivicay] 50 mg PO DAILY 11/09/18 11/09/18 History ethambutol 800 mg PO DAILY 02/02/18 02/02/18 History fluconazole 100 mg PO DAILY 02/02/18 02/02/18 History labetalol 200 mg PO BID 02/02/18 02/02/18 History lisinopril 5 mg PO DAILY 02/02/18 02/02/18 History nystatin 1 ml PO QID 02/02/18 02/02/18 History rifabutin 300 mg PO DAILY 02/02/18 02/02/18 History Exam Vital signs: Vital Signs 02/02/18 13:54 02/02/18 17:47 02/02/18 22:09 Temperature 99.6 F Pulse Rate 117 H 79 Respiratory Rate 18 18 Blood Pressure 92/52 L 105/71 Pulse Oximetry 97 98 98 02/02/18 22:40 02/02/18 22:45 02/02/18 23:00 Temperature 98.8 F Pulse Rate 82 83 80 Respiratory Rate 22 21 19 Blood Pressure 122/75 127/79 123/77 Pulse Oximetry 94 L 02/02/18 23:15 02/02/18 23:30 02/02/18 23:45 Temperature Pulse Rate 78 77 76 Respiratory Rate 16 22 19 Blood Pressure 123/81 120/75 120/78 Pulse Oximetry 93 L 94 L 02/03/18 00:00 02/03/18 01:00 02/03/18 01:05 Temperature Pulse Rate 83 88 86 Respiratory Rate 20 21 22 Blood Pressure 138/80 120/77 Pulse Oximetry 95 94 L 95 02/03/18 02:00 02/03/18 02:05 02/03/18 03:00 Temperature Pulse Rate 70 77 75 Respiratory Rate 17 17 20 Blood Pressure 110/73 Pulse Oximetry 95 96 98 02/03/18 03:05 02/03/18 04:00 02/03/18 04:21 Temperature 98.6 F Pulse Rate 78 85 77 Respiratory Rate 21 23 19 Blood Pressure 124/84 127/88 Pulse Oximetry 98 82 L 88 L 02/03/18 05:00 02/03/18 05:05 02/03/18 06:00 Temperature Pulse Rate 78 82 72 Respiratory Rate 17 21 18 Blood Pressure 130/86 Pulse Oximetry 98 02/03/18 06:05 02/03/18 07:00 02/03/18 07:05 Temperature Pulse Rate 77 99 H 91 H Respiratory Rate 19 23 18 Blood Pressure 134/81 138/91 H Pulse Oximetry 98 99 97 02/03/18 08:00 02/03/18 08:05 02/03/18 09:00 Temperature Pulse Rate 94 H 93 H 101 H Respiratory Rate 24 23 22 Blood Pressure 124/83 Pulse Oximetry 97 97 96 02/03/18 09:05 02/03/18 10:00 02/03/18 10:05 Temperature Pulse Rate 98 H 100 H 97 H Respiratory Rate 20 20 19 Blood Pressure 128/82 125/78 Pulse Oximetry 97 96 95 02/03/18 11:00 02/03/18 11:05 02/03/18 12:00 Temperature Pulse Rate 80 80 93 H Respiratory Rate 17 16 21 Blood Pressure 109/75 Pulse Oximetry 98 100 95 02/03/18 12:05 Temperature 98.7 F Pulse Rate 88 Respiratory Rate 20 Blood Pressure 134/89 Pulse Oximetry 97 Intake & Output 02/02/18 02/03/18 02/03/18 18:59 06:59 18:59 Intake Total 300 / 300 200 / 200 Output Total 100 / 100 Balance 200 / 200 200 / 200 Weight 56.245 kg 61.6 kg Intake: IV 300 / 300 200 / 200 Diflucan 200 mg Premix Bag 100 100 / 100 ML @ 100 mls/hr IV.SIG ONCE ONE Rx#:[id number] KCl 20 mEq Premix Inj 20 meq In 200 / 200 200 / 200 100 ml @ 50 mls/hr IV.SIG Q2H [facility] Rx#:[id number] Oral 0 / 0 Output: Urine 100 / 100 Other: Date of Last Bowel Movement 02/03/18 02/03/18 # Incontinent Bowel Movements 2 Weight On Admission 61.6 kg Narrative: GENERAL: Well-nourished well-developed, not in acute distress SKIN: Cool and dry, no generalized rash. HEAD: Atraumatic. Normocephalic. No temporal or scalp tenderness. EYES: Pupils equal round and reactive. Scleral icterus. No injection or drainage. No petechia ENT: Nothing abnormal detected NECK: Trachea midline. Supple, nontender, no meningeal signs. CARDIOVASCULAR: HS audible. RESPIRATORY: Clear to auscultation bilaterally. GASTROINTESTINAL: Abdomen soft nontender. PD catheter insertion site with no evidence of infection. No guarding no rigidity. MUSCULOSKELETAL: Extremities without clubbing, cyanosis. NEUROLOGICAL: Alert oriented 3. Nonfocal. Psych cooperative IV line sites ok. Results - Labs CBC & Chem 7: 02/05/18 05:17 02/05/18 05:17 Labs: Laboratory Results - last 24 hr 02/02/18 02/02/18 02/02/18 19:00 19:00 19:00 WBC 4.7 RBC 3.97 L Hgb 10.5 L Hct 32.6 L MCV 82.0 MCH 26.4 L MCHC 32.2 RDW 18.8 H Plt Count 144 L MPV 8.1 Prelim Diff (Auto) Slide review pending Neut % (Auto) 78.2 H Lymph % (Auto) 4.5 L [place] % (Auto) 15.2 H Eos % (Auto) 1.3 Baso % (Auto) 0.8 Neut # (Auto) 3.7 Lymph # (Auto) 0.2 L [place] # (Auto) 0.7 Eos # (Auto) 0.1 Baso # (Auto) 0.0 WBC Differential . Diff Scan Auto diff confirmed Differential Comment . Toxic Granulation Platelet Estimate Low L Platelet Morphology Normal Ovalocytes 2+ H PT 10.5 INR 1.0 Sodium 133 L Potassium 1.9 L* Chloride 95 L Carbon Dioxide 24.2 Anion Gap 14 BUN 36 H Creatinine 13.53 H* Estimated GFR 5 L Random Glucose 95 Calcium 7.7 L Prot Corrected Calcium Magnesium Total Bilirubin 0.5 AST 15 ALT 8 L Alkaline Phosphatase 83 Total Protein 7.0 Albumin 2.2 L Nasal Screen MRSA (PCR) 02/02/18 02/03/18 02/03/18 22:45 01:32 03:50 WBC 3.5 L RBC 3.72 L Hgb 9.8 L Hct 31.1 L MCV 83.5 MCH 26.3 L MCHC 31.4 L RDW 18.7 H Plt Count 136 L MPV 7.8 Prelim Diff (Auto) Slide review pending Neut % (Auto) 81.6 H Lymph % (Auto) 3.8 L [place] % (Auto) 11.6 H Eos % (Auto) 2.1 Baso % (Auto) 0.9 Neut # (Auto) 2.8 Lymph # (Auto) 0.1 L [place] # (Auto) 0.4 Eos # (Auto) 0.1 Baso # (Auto) 0.0 WBC Differential . Diff Scan Auto diff confirmed Differential Comment . Toxic Granulation 1+ H Platelet Estimate Low L Platelet Morphology Enlarged H Ovalocytes 2+ H PT INR Sodium Potassium 2.2 L* Chloride Carbon Dioxide Anion Gap BUN Creatinine Estimated GFR Random Glucose Calcium Prot Corrected Calcium Magnesium Total Bilirubin AST ALT Alkaline Phosphatase Total Protein Albumin Nasal Screen MRSA (PCR) Not detected 02/03/18 02/03/18 03:50 03:50 WBC RBC Hgb Hct MCV MCH MCHC RDW Plt Count MPV Prelim Diff (Auto) Neut % (Auto) Lymph % (Auto) [place] % (Auto) Eos % (Auto) Baso % (Auto) Neut # (Auto) Lymph # (Auto) [place] # (Auto) Eos # (Auto) Baso # (Auto) WBC Differential Diff Scan Differential Comment Toxic Granulation Platelet Estimate Platelet Morphology Ovalocytes PT INR Sodium 139 Potassium 2.2 L* Chloride 100 Carbon Dioxide 24.8 Anion Gap 14 BUN 37 H Creatinine 13.26 H* Estimated GFR 5 L Random Glucose 83 Calcium 7.1 L* Prot Corrected Calcium 7.8 L Magnesium 1.5 Total Bilirubin 0.4 AST 16 ALT 8 L Alkaline Phosphatase 69 Total Protein 5.7 L D Albumin 1.8 L Nasal Screen MRSA (PCR) - Imaging Impressions Chest X-Ray 02/02/18 18:47 CONCLUSION: No evidence of acute cardiopulmonary disease. Head CT 02/02/18 19:49 CONCLUSION: 1. No acute intracranial abnormality demonstrated. 2. Mild chronic white matter changes. . Assessment and Plan - Plan Rule out sepsis due to hypotension. Suspect sepsis is probably from poor oral intake as well as ongoing losses from diarrhea. Oral thrush, possible Kayla esophagitis. Rule out herpetic esophagitis. Diarrhea: Gastroenteritis workup pending, age-related diarrheal illness causes need to be ruled out such as AFB, cryptosporidium, Giardia etc. HIV AIDS. Oral thrush is AIDS defining illness. Acute on chronic renal failure: Prerenal component, r/o HIV Nephropathy Hypokalemia likely secondary to poor oral intake as well as ongoing losses from diarrhea Questionable compliance with PT as well as HIV medications. Hypotension: Rule out sepsis, prerenal. Rule out disseminated Mycobacterium avium-intracellulare infection involving adrenal glands as a cause. Recs: Discontinue all HIV medications Discontinue Bactrim One time dose of Pentamidine nebulizer one time dose if CD4 low will follow and decide. Continue oral azithro Continue Diflucan IV Consult GI for EGD and Colonoscopy. Rule out Kayla and Herpetic esophagitis. Colonoscopy rule out PCP, CMV or AFB as cause for diarrhea. Check CD4 count Check viral load Check GC Chlamydia PCR Check CMV PCR Check RPR Check HIV genotype. Patient had unprotected sex with his partner high risk for mutation as well as patient is noncompliant with HIV medication. Of note his partner is HIV positive as well. Stool studies for C. difficile, Giardia, cryptosporidium, AFB, gastroenteritis panel,E. histolytica. Check AFB blood cultures. Check fungal blood cultures. Follow cultures Follow clinical course
--- NOTE | 2018-02-03 15:39 | MB ---
cc: Deric Telol MD DATE: 02/03/2018 REASON FOR CONSULTATION: End-stage renal disease management. HISTORY OF PRESENT ILLNESS: This is a 52-year-old male with a history of ESRD, on peritoneal dialysis. He also has a history of HIV, which has apparently been untreated recently. The patient presented to the emergency room with symptoms of nausea and vomiting with ongoing diarrhea. He has had no recent infectious disease followup. He was admitted here and assessed with apparent thrush. The patient also had significant hypokalemia with a potassium of 1.9. This was attributed to poor p.o. intake as well as diarrhea and he was started on potassium supplementation. He was also given magnesium for a magnesium level of 1.5. The patient has been seen and admitted to the ICU for significant hypokalemia. He has been seen by infectious disease, who is following up the patient and he is being treated with Diflucan IV for thrush. In addition, GI has been consulted to further evaluate for any Kayla or herpetic esophagitis. Stool studies have been ordered by infectious disease as well. Regarding the patient's end-stage renal disease, he has followed up as an outpatient with Dr. Shah for his peritoneal dialysis. He reports he has had no recent issues with his peritoneal dialysis and his catheter has apparently been functioning. However, he has had limited urine output and limited drainage from his ultrafiltration recently. He has had no symptoms of any abdominal tenderness or pain otherwise. Nephrology was consulted for further evaluation of end-stage renal disease management. REVIEW OF SYSTEMS: The patient reports having some diarrhea, decreased p.o. intake. He is somewhat withdrawn and does not give a full history otherwise. However, he denies any chest pain or shortness of breath. Review of systems is otherwise negative. PAST MEDICAL HISTORY: Includes HIV, ESRD, hypotension. The patient follows up with Dr. Shah for his ESRD issues. FAMILY HISTORY: Noncontributory. SOCIAL HISTORY: No alcohol, tobacco or drug use. MEDICATIONS AT HOME: Apparently, the patient has been noncompliant with any of his antiretrovirals and has not seen an HIV specialist in over 2 years. PHYSICAL EXAMINATION: VITAL SIGNS: At time of evaluation, temperature 98.7, pulse 88, respiratory rate 20, blood pressure 134/89. GENERAL: Emaciated, awake, alert, oriented, in no apparent distress. NECK: Soft, supple. CARDIAC: Regular rate and rhythm. PULMONARY: Lungs are clear to auscultation. ABDOMEN: Soft, nontender, nondistended. PD catheter in place with no erythema or tenderness. EXTREMITIES: No edema. LABORATORY FINDINGS: White count 3.5, hemoglobin 9.8, hematocrit 31.1 with a platelet count of 136. PT 10.5, INR 1.0. Sodium 139, potassium 2.2, chloride 100, bicarbonate 24.8, BUN 37, creatinine 13.26, glucose 83, corrected calcium 7.8, AST 16, ALT 8, alkaline phosphatase 69, albumin 1.8. ASSESSMENT AND PLAN: 1. End-stage renal disease. The patient is on peritoneal dialysis. We will continue with peritoneal dialysis while here. He has significant hypokalemia and we will continue to replace this. Follow up volume status and electrolytes. Continue with peritoneal dialysis here. The patient follows up with Dr. Shah as an outpatient. 2. Hypokalemia. The patient presented with significant hypokalemia with a potassium of 1.9 at the time of admission. He has been repleted with potassium intravenous and has a potassium of 2.2 now. He has been given intravenous fluids. Given significant diarrhea as well as decreased p.o. intake, agree with intravenous fluids for now but will adjust IV fluids to 75 mL of normal saline and will add 40 mEq of potassium per liter of intravenous fluids. Continue with supportive care, continue with intravenous fluids and continue to support p.o. intake as tolerated. In addition, follow magnesium levels. The patient had a magnesium of 1.5. He was given intravenous magnesium. We will continue to follow electrolytes and labs. 3. Human immunodeficiency virus and acquired immune deficiency syndrome. The patient has noncompliance with any antiretrovirals. ID has been consulted. Continue to follow up. 4. Thrush. The patient is on intravenous Diflucan. Continue to follow up with ID. 5. Diarrhea. The patient has been seen by ID. Continue to follow up for evaluation of stool cultures. GI has been consulted for further possible endoscopic evaluation as well. 6. Anemia. The patient has a hemoglobin of 9.8. We will check an iron panel. Continue supportive care. MD ANNA Toro/bubba , 02:54 PM , 03:04 PM
[2018-02-03] MEDS ORDERED: Potassium Chloride Inj 40 MEQ in Sod Chloride 0.9% Inj 1,000 ML IV.CONT SCH (16:00)
--- NOTE | 2018-02-03 17:04 | P.CONGI ---
History of Present Illness Consult date: 02/03/18 Consult reason: Throat pain, diarrhea possible colitis Chief complaint: hypokalmia, thrush, HIV History of Present Illness: This is a 52-year-old male currently being monitored in the intensive care setting for generalized weakness and fatigue, decreased appetite initiated approximately 2 weeks ago. Patient notes throat sore to touch low-grade temp 99.6 and some complaints of dysphasia. Patient also notes 3 loose diarrheal stools today and symptoms of abdominal pain and diarrhea also for the past few weeks. Patient has a history of HIV since the age of 23 and currently is being followed per ID. Patient also has end-stage renal disease. Current labs reviewed showed hemoglobin 9.8 WBC count 3.5, platelet 136, PT/INR 1, and potassium 2.2. Bilirubin and LFTs are normal and C. difficile is negative, enterovirus stool specimen is pending. Patient is unknown of any previous EGD or colonoscopy and denies any family history of colon cancer. Heart rate is stable currently 77 sinus rhythm patient is awake, struggling with mild slow speech which could be related to thrush. Gastroenterology consulted to evaluate GI symptoms and EGD colonoscopy. <Saritha Sanchez - Last Filed: 02/04/18 13:44> [facility] - History History Provided By: Patient - Medical History Medical History: Medical History (Last Reviewed 02/03/18 @ 14:21 by Rochelle Rick) HIV (human immunodeficiency virus infection) Hypotension Renal failure - Tobacco History Second Hand Smoke Exposure: Yes Tobacco Use In Past 30 Days: No Smoking Status: Former smoker Tobacco Type: Cigarettes - Alcohol History How Often Do You Have a Drink Containing Alcohol: Never - Substance Use History Substance History: Unable to Obtain - Travel History Recent Travel in the [place] Within the Last 8 Weeks: No Recent Travel Out of the Country Within the Last 8 Weeks: No - Immunization History Tetanus Immunization: Unsure <Saritha Sanchez - Last Filed: 02/04/18 13:44> - Medical History Medical History: Medical History (Last Reviewed 02/03/18 @ 14:21 by Rochelle Rick) HIV (human immunodeficiency virus infection) Hypotension Renal failure <Sabra Hutchison - Last Filed: 02/04/18 14:30> Medications and Allergies Active Medications: Active Medications Acetaminophen (Tylenol) 650 mg PO Q4H PRN PRN Reason: Temp > 100.4 Al Hydroxide/Mg Hydroxide (Milk Of Magnesia Liq) 30 ml PO Q12H PRN PRN Reason: Mild Constipation Azithromycin (Zithromax) 1,200 mg PO Q7D [facility] Last Admin: 02/03/18 09:00 Dose: 1,200 mg Bisacodyl (Dulcolax Supp) 10 mg RECTAL DAILY PRN PRN Reason: SEVERE CONSITIPATION Chlorhexidine Gluconate (Chlorhexidine 2% Cloth) 3 pack TOPICAL DAILY@0400 [facility] Stop: 02/08/18 03:59 Last Admin: 02/03/18 04:59 Dose: Not Given Chlorhexidine Gluconate (Chlorhexidine 2% Cloth) 3 pack TOPICAL DAILY@0400 PRN PRN Reason: Extra cloth needed Stop: 02/08/18 03:59 Heparin Sodium (Porcine) (Heparin Inj) 5,000 units SQ Q12HR [facility] Last Admin: 02/03/18 11:08 Dose: 5,000 units Fluconazole (Diflucan 100 Mg Premix Bag) 50 mls @ 50 mls/hr IV.SIG Q24H [facility] Magnesium Sulfate/Dextrose (Magnesium Sulfate 1 Gm/D5w 100 Ml Premix) 100 mls @ 100 mls/hr IV.SIG ONCE PRN PRN Reason: If magnesium is < 1.6 Potassium Chloride/Sodium Chloride (Ns + Kcl 40 Meq Inj) 1,000 mls @ 75 mls/hr IV.CONT .[id number] [facility] Last Infusion: 02/03/18 15:09 Dose: 75 mls/hr Lactulose (Lactulose Liq) 30 ml PO DAILY PRN PRN Reason: SEVERE CONSITIPATION Lidocaine HCl (Lidocaine 2% Viscous) 15 ml SWISH-SWAL Q4H PRN PRN Reason: SORE THROAT Ondansetron HCl (Zofran Inj) 4 mg IV.PUSH Q6H PRN PRN Reason: NAUSEA OR VOMITING Last Admin: 02/03/18 09:12 Dose: 4 mg Senna/Docusate Sodium (Dee-Colace) 1 tab PO BID [facility] Last Admin: 02/03/18 09:21 Dose: Not Given Sennosides (Senokot) 17.2 mg PO Q12H PRN PRN Reason: Moderate Constipation <Saritha Sanchez M - Last Filed: 02/04/18 13:44> Active Medications: Active Medications Acetaminophen (Tylenol) 650 mg PO Q4H PRN PRN Reason: Temp > 100.4 Last Admin: 02/04/18 08:35 Dose: 650 mg Al Hydroxide/Mg Hydroxide (Milk Of Magnesia Liq) 30 ml PO Q12H PRN PRN Reason: Mild Constipation Azithromycin (Zithromax) 1,200 mg PO Q7D [facility] Last Admin: 02/03/18 09:00 Dose: 1,200 mg Bisacodyl (Dulcolax Supp) 10 mg RECTAL DAILY PRN PRN Reason: SEVERE CONSITIPATION Chlorhexidine Gluconate (Chlorhexidine 2% Cloth) 3 pack TOPICAL DAILY@0400 [facility] Stop: 02/08/18 03:59 Last Admin: 02/04/18 06:35 Dose: Not Given Chlorhexidine Gluconate (Chlorhexidine 2% Cloth) 3 pack TOPICAL DAILY@0400 PRN PRN Reason: Extra cloth needed Stop: 02/08/18 03:59 Heparin Sodium (Porcine) (Heparin Inj) 5,000 units SQ Q12HR [facility] Last Admin: 02/04/18 08:34 Dose: 5,000 units Fluconazole (Diflucan 100 Mg Premix Bag) 50 mls @ 50 mls/hr IV.SIG Q24H [facility] Last Infusion: 02/04/18 01:58 Dose: Infused Potassium Chloride/Sodium Chloride (Ns + Kcl 40 Meq Inj) 1,000 mls @ 100 mls/ hr IV.CONT .Q10H [facility] Last Admin: 02/04/18 06:35 Dose: Not Given Potassium Chloride 30 meq/ (Sodium Chloride) 115 mls @ 38.333 mls/hr IV.SIG Q3H [facility] Stop: 02/04/18 20:59 Lactulose (Lactulose Liq) 30 ml PO DAILY PRN PRN Reason: SEVERE CONSITIPATION Lidocaine HCl (Lidocaine 2% Viscous) 15 ml SWISH-SWAL Q4H PRN PRN Reason: SORE THROAT Ondansetron HCl (Zofran Inj) 4 mg IV.PUSH Q6H PRN PRN Reason: NAUSEA OR VOMITING Last Admin: 02/03/18 09:12 Dose: 4 mg Polyethylene Glycol/Electrolytes (Colyte Liq) 0 ml PO ONCE ONE Stop: 02/04/18 15:01 Potassium Phosphate (K-Phos Original) 500 mg PO DAILY [facility] Senna/Docusate Sodium (Dee-Colace) 1 tab PO BID [facility] Last Admin: 02/04/18 09:45 Dose: Not Given Sennosides (Senokot) 17.2 mg PO Q12H PRN PRN Reason: Moderate Constipation <Sabra Hutchison - Last Filed: 02/04/18 14:30> Allergies Allergy/AdvReac Type Severity Reaction Status Date / Time No Known Allergies Allergy Verified 02/02/18 13:58 Home Medications Medication Instructions Recorded Confirmed Type abacavir 300 mg PO DAILY 02/02/18 02/02/18 History amlodipine 10 mg PO DAILY 02/02/18 02/02/18 History azithromycin 500 mg PO DAILY 02/02/18 02/02/18 History calcium acetate 667 mg PO TID 02/02/18 02/02/18 History dolutegravir [Tivicay] 50 mg PO DAILY 02/02/18 02/02/18 History ethambutol 800 mg PO DAILY 02/02/18 02/02/18 History fluconazole 100 mg PO DAILY 02/02/18 02/02/18 History labetalol 200 mg PO BID 02/02/18 02/02/18 History lisinopril 5 mg PO DAILY 02/02/18 02/02/18 History nystatin 1 ml PO QID 02/02/18 02/02/18 History rifabutin 300 mg PO DAILY 02/02/18 02/02/18 History Exam Vital signs: Vital Signs 02/02/18 17:47 02/02/18 22:09 02/02/18 22:40 Temperature 98.8 F Pulse Rate 79 82 Respiratory Rate 18 22 Blood Pressure 105/71 122/75 Pulse Oximetry 98 98 94 L 02/02/18 22:45 02/02/18 23:00 02/02/18 23:15 Temperature Pulse Rate 83 80 78 Respiratory Rate 21 19 16 Blood Pressure 127/79 123/77 123/81 Pulse Oximetry 02/02/18 23:30 02/02/18 23:45 02/03/18 00:00 Temperature Pulse Rate 77 76 83 Respiratory Rate 22 19 20 Blood Pressure 120/75 120/78 138/80 Pulse Oximetry 93 L 94 L 95 02/03/18 01:00 02/03/18 01:05 02/03/18 02:00 Temperature Pulse Rate 88 86 70 Respiratory Rate 21 22 17 Blood Pressure 120/77 Pulse Oximetry 94 L 95 95 02/03/18 02:05 02/03/18 03:00 02/03/18 03:05 Temperature Pulse Rate 77 75 78 Respiratory Rate 17 20 21 Blood Pressure 110/73 124/84 Pulse Oximetry 96 98 98 02/03/18 04:00 02/03/18 04:21 02/03/18 05:00 Temperature 98.6 F Pulse Rate 85 77 78 Respiratory Rate 23 19 17 Blood Pressure 127/88 Pulse Oximetry 82 L 88 L 02/03/18 05:05 02/03/18 06:00 02/03/18 06:05 Temperature Pulse Rate 82 72 77 Respiratory Rate 21 18 19 Blood Pressure 130/86 134/81 Pulse Oximetry 98 98 02/03/18 07:00 02/03/18 07:05 02/03/18 08:00 Temperature Pulse Rate 99 H 91 H 94 H Respiratory Rate 23 18 24 Blood Pressure 138/91 H Pulse Oximetry 99 97 97 02/03/18 08:05 02/03/18 09:00 02/03/18 09:05 Temperature Pulse Rate 93 H 101 H 98 H Respiratory Rate 23 22 20 Blood Pressure 124/83 128/82 Pulse Oximetry 97 96 97 02/03/18 10:00 02/03/18 10:05 02/03/18 11:00 Temperature Pulse Rate 100 H 97 H 80 Respiratory Rate 20 19 17 Blood Pressure 125/78 Pulse Oximetry 96 95 98 02/03/18 11:05 02/03/18 12:00 02/03/18 12:05 Temperature 98.7 F Pulse Rate 80 93 H 88 Respiratory Rate 16 21 20 Blood Pressure 109/75 134/89 Pulse Oximetry 100 95 97 Intake & Output 02/02/18 02/03/18 02/03/18 18:59 06:59 18:59 Intake Total 300 / 300 800 / 800 Output Total 100 / 100 Balance 200 / 200 800 / 800 Weight 56.245 kg 61.6 kg Intake: IV 300 / 300 800 / 800 NS Inj 1,000 ML @ 100 mls/hr IV 400 / 400 .CONT .Q10H [facility] Rx#:[id number] Diflucan 200 mg Premix Bag 100 100 / 100 ML @ 100 mls/hr IV.SIG ONCE ONE Rx#:[id number] KCl 20 mEq Premix Inj 20 meq In 200 / 200 400 / 400 100 ml @ 50 mls/hr IV.SIG Q2H [facility] Rx#:[id number] Oral 0 / 0 Output: Urine 100 / 100 Other: Date of Last Bowel Movement 02/03/18 02/03/18 # Incontinent Bowel Movements 2 Weight On Admission 61.6 kg <Saritha Sanchez - Last Filed: 02/04/18 13:44> Vital signs: Vital Signs 02/03/18 15:00 02/03/18 15:05 02/03/18 16:00 Temperature Pulse Rate 87 87 78 Respiratory Rate 26 H 28 H 24 Blood Pressure 119/80 Pulse Oximetry 96 96 87 L 02/03/18 16:12 02/03/18 17:00 02/03/18 17:05 Temperature Pulse Rate 77 69 71 Respiratory Rate 25 H 21 23 Blood Pressure 124/84 126/81 Pulse Oximetry 97 98 99 02/03/18 18:00 02/03/18 18:05 02/03/18 19:00 Temperature Pulse Rate 73 82 86 Respiratory Rate 21 23 25 H Blood Pressure 144/90 H Pulse Oximetry 100 100 100 02/03/18 19:05 02/03/18 20:00 02/03/18 20:33 Temperature 98.3 F Pulse Rate 94 H 104 H 111 H Respiratory Rate 27 H 27 H 25 H Blood Pressure 140/86 112/76 112/76 Pulse Oximetry 100 02/03/18 21:00 02/03/18 21:05 02/03/18 21:18 Temperature Pulse Rate 114 H 115 H Respiratory Rate 27 H 26 H Blood Pressure 117/72 Pulse Oximetry 94 L 89 L 94 L 02/03/18 22:00 02/03/18 22:05 02/03/18 23:00 Temperature Pulse Rate 110 H 102 H 101 H Respiratory Rate 30 H 20 21 Blood Pressure 117/73 Pulse Oximetry 96 94 L 96 02/03/18 23:05 02/04/18 00:00 02/04/18 00:05 Temperature 97.8 F Pulse Rate 101 H 99 H 94 H Respiratory Rate 21 26 H 23 Blood Pressure 102/69 120/82 120/82 Pulse Oximetry 97 91 L 91 L 02/04/18 01:00 02/04/18 01:05 02/04/18 02:00 Temperature Pulse Rate 89 88 77 Respiratory Rate 23 23 20 Blood Pressure 120/84 Pulse Oximetry 95 96 95 02/04/18 02:05 02/04/18 03:00 02/04/18 03:05 Temperature Pulse Rate 71 84 77 Respiratory Rate 17 22 20 Blood Pressure 111/73 115/79 Pulse Oximetry 95 98 02/04/18 04:00 02/04/18 05:00 02/04/18 05:05 Temperature 97.7 F Pulse Rate 73 67 65 Respiratory Rate 24 19 18 Blood Pressure 130/85 Pulse Oximetry 100 100 100 02/04/18 06:00 02/04/18 07:00 02/04/18 07:05 Temperature Pulse Rate 68 73 72 Respiratory Rate 20 41 H 34 H Blood Pressure 131/81 Pulse Oximetry 100 100 100 02/04/18 08:00 02/04/18 08:05 02/04/18 09:00 Temperature 101.1 F H Pulse Rate 77 81 103 H Respiratory Rate 23 23 25 H Blood Pressure 137/87 Pulse Oximetry 100 100 100 02/04/18 09:05 02/04/18 10:00 02/04/18 10:05 Temperature Pulse Rate 92 H 117 H 111 H Respiratory Rate 21 27 H 23 Blood Pressure 118/70 108/69 Pulse Oximetry 100 100 100 02/04/18 11:00 02/04/18 11:05 02/04/18 12:00 Temperature 98.5 F Pulse Rate 100 H 98 H 82 Respiratory Rate 21 21 22 Blood Pressure 107/70 Pulse Oximetry 100 100 100 Intake & Output 02/03/18 02/04/18 02/04/18 18:59 06:59 18:59 Intake Total 1640 / 1640 1250 / 1250 100 / 100 Output Total 60 / 60 453 / 453 Balance 1580 / 1580 1250 / 1250 -353 / -353 Intake: IV 800 / 800 1250 / 1250 100 / 100 NS + KCl 40 mEq Inj 1,000 ML @ 1000 / 1000 75 mls/hr IV.CONT .[id number] [facility] Rx#:[id number] NS Inj 1,000 ML @ 100 mls/hr IV 400 / 400 .CONT .Q10H [facility] Rx#:[id number] Diflucan 100 mg Premix Bag 50 50 / 50 ML @ 50 mls/hr IV.SIG Q24H [facility] Rx#:[id number] KCl 20 mEq Premix Inj 20 meq In 400 / 400 200 / 200 100 / 100 100 ml @ 50 mls/hr IV.SIG Q2H [facility] Rx#:[id number] Oral 840 / 840 Output: Urine 60 / 60 Peritoneal Amount 453 / 453 Other: Date of Last Bowel Movement 02/03/18 02/04/18 02/04/18 # Incontinent Bowel Movements 3 4 <Sabra Hutchison - Last Filed: 02/04/18 14:30> Results - Labs CBC & Chem 7: 02/03/18 03:50 02/03/18 03:50 Labs: Laboratory Results - last 24 hr 02/02/18 02/02/18 02/02/18 19:00 19:00 19:00 WBC 4.7 RBC 3.97 L Hgb 10.5 L Hct 32.6 L MCV 82.0 MCH 26.4 L MCHC 32.2 RDW 18.8 H Plt Count 144 L MPV 8.1 Prelim Diff (Auto) Slide review pending Neut % (Auto) 78.2 H Lymph % (Auto) 4.5 L [place] % (Auto) 15.2 H Eos % (Auto) 1.3 Baso % (Auto) 0.8 Neut # (Auto) 3.7 Lymph # (Auto) 0.2 L [place] # (Auto) 0.7 Eos # (Auto) 0.1 Baso # (Auto) 0.0 WBC Differential . Diff Scan Auto diff confirmed Differential Comment . Toxic Granulation Platelet Estimate Low L Platelet Morphology Normal Ovalocytes 2+ H PT 10.5 INR 1.0 Sodium 133 L Potassium 1.9 L* Chloride 95 L Carbon Dioxide 24.2 Anion Gap 14 BUN 36 H Creatinine 13.53 H* Estimated GFR 5 L Random Glucose 95 Calcium 7.7 L Prot Corrected Calcium Magnesium Total Bilirubin 0.5 AST 15 ALT 8 L Alkaline Phosphatase 83 Total Protein 7.0 Albumin 2.2 L Nasal Screen MRSA (PCR) Stl C.difficile DNA Amp St C. diff Tox Epid 027 02/02/18 02/03/18 02/03/18 22:45 01:32 03:50 WBC 3.5 L RBC 3.72 L Hgb 9.8 L Hct 31.1 L MCV 83.5 MCH 26.3 L MCHC 31.4 L RDW 18.7 H Plt Count 136 L MPV 7.8 Prelim Diff (Auto) Slide review pending Neut % (Auto) 81.6 H Lymph % (Auto) 3.8 L [place] % (Auto) 11.6 H Eos % (Auto) 2.1 Baso % (Auto) 0.9 Neut # (Auto) 2.8 Lymph # (Auto) 0.1 L [place] # (Auto) 0.4 Eos # (Auto) 0.1 Baso # (Auto) 0.0 WBC Differential . Diff Scan Auto diff confirmed Differential Comment . Toxic Granulation 1+ H Platelet Estimate Low L Platelet Morphology Enlarged H Ovalocytes 2+ H PT INR Sodium Potassium 2.2 L* Chloride Carbon Dioxide Anion Gap BUN Creatinine Estimated GFR Random Glucose Calcium Prot Corrected Calcium Magnesium Total Bilirubin AST ALT Alkaline Phosphatase Total Protein Albumin Nasal Screen MRSA (PCR) Not detected Stl C.difficile DNA Amp St C. diff Tox Epid 027 02/03/18 02/03/18 02/03/18 03:50 03:50 10:30 WBC RBC Hgb Hct MCV MCH MCHC RDW Plt Count MPV Prelim Diff (Auto) Neut % (Auto) Lymph % (Auto) [place] % (Auto) Eos % (Auto) Baso % (Auto) Neut # (Auto) Lymph # (Auto) [place] # (Auto) Eos # (Auto) Baso # (Auto) WBC Differential Diff Scan Differential Comment Toxic Granulation Platelet Estimate Platelet Morphology Ovalocytes PT INR Sodium 139 Potassium 2.2 L* Chloride 100 Carbon Dioxide 24.8 Anion Gap 14 BUN 37 H Creatinine 13.26 H* Estimated GFR 5 L Random Glucose 83 Calcium 7.1 L* Prot Corrected Calcium 7.8 L Magnesium 1.5 Total Bilirubin 0.4 AST 16 ALT 8 L Alkaline Phosphatase 69 Total Protein 5.7 L D Albumin 1.8 L Nasal Screen MRSA (PCR) Stl C.difficile DNA Amp Negative St C. diff Tox Epid 027 Negative - Imaging Impressions Chest X-Ray 02/02/18 18:47 CONCLUSION: No evidence of acute cardiopulmonary disease. Head CT 02/02/18 19:49 CONCLUSION: 1. No acute intracranial abnormality demonstrated. 2. Mild chronic white matter changes. . <Saritha Sanchez - Last Filed: 02/04/18 13:44> - Labs CBC & Chem 7: 02/04/18 03:38 02/04/18 03:38 Labs: Laboratory Results - last 24 hr 02/03/18 02/03/18 02/03/18 10:30 17:40 17:40 WBC RBC Hgb Hct MCV MCH MCHC RDW Plt Count MPV Sodium Potassium 2.7 L* Chloride Carbon Dioxide Anion Gap BUN Creatinine Estimated GFR Random Glucose Calcium Prot Corrected Calcium Phosphorus Magnesium Total Bilirubin AST ALT Alkaline Phosphatase Total Protein Albumin Stl C.difficile DNA Amp Negative St C. diff Tox Epid 027 Negative Hepatitis A IgM Ab Nonreactive Hep Bs Antigen Nonreactive Hep B Core IgM Ab Nonreactive Hep C IgG Ab Nonreactive 02/04/18 02/04/18 03:38 03:38 WBC 3.2 L RBC 3.68 L Hgb 9.6 L Hct 30.6 L MCV 83.1 MCH 26.2 L MCHC 31.6 L RDW 18.8 H Plt Count 152 MPV 8.0 Sodium 141 Potassium 2.8 L* Chloride 106 Carbon Dioxide 25.0 Anion Gap 10 BUN 34 H Creatinine 12.34 H* Estimated GFR 5 L Random Glucose 111 H Calcium 7.0 L* Prot Corrected Calcium 7.8 L Phosphorus 2.3 L Magnesium 1.5 Total Bilirubin 0.4 AST 15 ALT 9 L Alkaline Phosphatase 70 Total Protein 5.6 L Albumin 1.8 L Stl C.difficile DNA Amp St C. diff Tox Epid 027 Hepatitis A IgM Ab Hep Bs Antigen Hep B Core IgM Ab Hep C IgG Ab <Sabra Hutchison - Last Filed: 02/04/18 14:30> Assessment and Plan - Plan 52-year-old male currently being monitored in the intensive care setting for generalized weakness and fatigue, decreased appetite initiated approximately 2 weeks ago. Patient notes throat sore to touch low-grade temp 99.6 and some complaints of dysphasia. Patient also notes 3 loose diarrheal stools today and symptoms of abdominal pain and diarrhea also for the past few weeks. Patient has a history of HIV since the age of 23 and currently is being followed per ID. Patient also has end-stage renal disease. Current labs reviewed showed hemoglobin 9.8 WBC count 3.5, platelet 136, PT/INR 1, and potassium 2.2. Bilirubin and LFTs are normal and C. difficile is negative, enterovirus stool specimen is pending. Patient is unknown of any previous EGD or colonoscopy and denies any family history of colon cancer. Heart rate is stable currently 77 sinus rhythm patient is awake, struggling with mild slow speech which could be related to thrush and/or esophagitis. Gastroenterology consulted to evaluate GI symptoms and EGD colonoscopy. Dysphasia, oral thrush noted on admission which could be related to Kayla esophagitis, anorexia approximately 2 weeks, which could be related to Kayla/ dysphasia Diarrhea stools Generalized weakness and fatigue history of HIV since the age of 23, currently being worked up per I&D who recommends EGD and colonoscopy to rule out Kayla and her panic esophagitis. Request for colonoscopy to rule out PCP, CM V or AFB as cause for diarrhea. Enterovirus stool sample pending History of acute on chronic renal failure Plan Diet clear liquids Consent for EGD colonoscopy Monday a.m. N.p.o. at midnight Monday night Hold any blood thinners [facility] Monitor labs Stool studies pending, C. difficile negative Further recommendations to follow Supportive care Patient was seen per myself and Dr. Hutchison, note was written on his behalf <Saritha Sanchez - Last Filed: 02/04/18 13:44> - Plan Seen and examined with [employer], egd/colonoscopy planned for monday. Discussed with pt. Thank you <Sabra Hutchison - Last Filed: 02/04/18 14:30>
[2018-02-03] MEDS: Sod Chloride 0.9% Inj 1,000 ML IV.CONT SCH (18:56)
[2018-02-03 19:52] LABS: Hepatitis A IgM Antibody Nonreactive (Nonreactive); Hepatitits B Surface Antigen Nonreactive (Nonreactive)
[2018-02-04 03:59] LABS: Hematocrit 30.6 % (39.0-51.0); Hemoglobin 9.6 gm/dL (13.0-17.0); Mean Corpuscular HGB Conc 31.6 % (32.0-36.0); Mean Corpuscular Hemoglobin 26.2 pg (27.0-34.0); Mean Corpuscular Volume 83.1 fL (80.0-100.0); Platelet Count 152 th/mm3 (150-450); Red Blood Count 3.68 mil/mm3 (4.50-5.90); Red Cell Distribution Width 18.8 % (11.6-17.2); White Blood Count 3.2 th/mm3 (4.0-11.0)
[2018-02-04 04:32] LABS: Albumin 1.8 g/dL (3.4-5.0); Magnesium 1.5 mg/dL (1.5-2.5); Phosphorus 2.3 mg/dL (2.5-4.9); Total Protein 5.6 g/dL (6.4-8.2)
[2018-02-04 04:37] LABS: Potassium 2.8 meq/L (3.5-5.1)
[2018-02-04] MEDS: Potassium Chlor 20 mEq Premix 20 MEQ/100 ML PIGGYBACK IV.SIG SCH ×5 (05:56→20:45)
[2018-02-04] MEDS: Chlorhexidine Gluconate 2% 1 Pack (2 Cloths) TOPICAL SCH (06:35)
[2018-02-04] MEDS ORDERED: Magnesium Sulfate Inj 4 GM in Sodium Chlor 0.9% Inj 92 ML IV.SIG PRN (07:48)
[2018-02-04] MEDS ORDERED: Magnesium Sulfate Inj 2 GM in Sodium Chlor 0.9% Inj 96 ML IV.SIG PRN (07:48)
[2018-02-04] MEDS ORDERED: Magnesium Oxide 400 MG Tablet PO PRN (07:48)
[2018-02-04] MEDS ORDERED: Potassium Phosphate 500 MG Soluble Tablet PO PRN ×2 (07:48)
[2018-02-04] MEDS ORDERED: Sodium Phosphate Inj 30 MMOL in Sodium Chlor 0.9% Inj 250 ML IV.SIG PRN (07:48)
[2018-02-04] MEDS ORDERED: Potassium Chlor 40 mEq Premix 40 MEQ/100 ML PIGGYBACK IV.SIG PRN ×2 (07:48)
[2018-02-04] MEDS ORDERED: Potassium Phosphate Inj 30 MMOL in Sodium Chlor 0.9% Inj 250 ML IV.SIG PRN (07:48)
[2018-02-04] MEDS ORDERED: Potassium Chlor 20 mEq Premix 20 MEQ/100 ML PIGGYBACK IV.SIG PRN ×2 (07:48)
[2018-02-04] MEDS ORDERED: Potassium Chloride 25 MEQ Effervescent Tablet PO PRN (07:48)
[2018-02-04] MEDS: Heparin - SQ 10,000 UNITS/ML Vial SQ SCH (08:34)
[2018-02-04] MEDS: Acetaminophen 325 MG Tablet PO PRN (08:35)
[2018-02-04] MEDS: Senna/Docusate Sodium 8.6/50 MG Tablet PO SCH ×2 (09:45→20:46)
--- NOTE | 2018-02-04 11:25 | P.PNIM ---
Subjective Interval history: Pt seen and examined for f/u hypokalemia, diarrhea, and general malaise. Reports feeling a little bit better. Continues to have yellow liquid diarrhea. States he's had about 4 episodes in the last 24 hours. Also complains of some pain with swallowing but has been able to eat. Denies abdominal pain, N/V. No CP or SOB. Going for EGD/colonoscopy tomorrow. Physical Exam Vital signs: Vital Signs 02/03/18 12:00 02/03/18 12:05 02/03/18 13:00 Temperature 98.7 F Pulse Rate 93 H 88 89 Respiratory Rate 21 20 24 Blood Pressure 134/89 Pulse Oximetry 95 97 95 02/03/18 13:05 02/03/18 14:00 02/03/18 14:05 Temperature 98.0 F Pulse Rate 85 95 H 97 H Respiratory Rate 20 23 21 Blood Pressure 117/72 118/77 Pulse Oximetry 95 94 L 94 L 02/03/18 15:00 02/03/18 15:05 02/03/18 16:00 Temperature Pulse Rate 87 87 78 Respiratory Rate 26 H 28 H 24 Blood Pressure 119/80 Pulse Oximetry 96 96 87 L 02/03/18 16:12 02/03/18 17:00 02/03/18 17:05 Temperature Pulse Rate 77 69 71 Respiratory Rate 25 H 21 23 Blood Pressure 124/84 126/81 Pulse Oximetry 97 98 99 02/03/18 18:00 02/03/18 18:05 02/03/18 19:00 Temperature Pulse Rate 73 82 86 Respiratory Rate 21 23 25 H Blood Pressure 144/90 H Pulse Oximetry 100 100 100 02/03/18 19:05 02/03/18 20:00 02/03/18 20:33 Temperature 98.3 F Pulse Rate 94 H 104 H 111 H Respiratory Rate 27 H 27 H 25 H Blood Pressure 140/86 112/76 112/76 Pulse Oximetry 100 02/03/18 21:00 02/03/18 21:05 02/03/18 21:18 Temperature Pulse Rate 114 H 115 H Respiratory Rate 27 H 26 H Blood Pressure 117/72 Pulse Oximetry 94 L 89 L 94 L 02/03/18 22:00 02/03/18 22:05 02/03/18 23:00 Temperature Pulse Rate 110 H 102 H 101 H Respiratory Rate 30 H 20 21 Blood Pressure 117/73 Pulse Oximetry 96 94 L 96 02/03/18 23:05 02/04/18 00:00 02/04/18 00:05 Temperature 97.8 F Pulse Rate 101 H 99 H 94 H Respiratory Rate 21 26 H 23 Blood Pressure 102/69 120/82 120/82 Pulse Oximetry 97 91 L 91 L 02/04/18 01:00 02/04/18 01:05 02/04/18 02:00 Temperature Pulse Rate 89 88 77 Respiratory Rate 23 23 20 Blood Pressure 120/84 Pulse Oximetry 95 96 95 02/04/18 02:05 02/04/18 03:00 02/04/18 03:05 Temperature Pulse Rate 71 84 77 Respiratory Rate 17 22 20 Blood Pressure 111/73 115/79 Pulse Oximetry 95 98 02/04/18 04:00 02/04/18 05:00 02/04/18 05:05 Temperature 97.7 F Pulse Rate 73 67 65 Respiratory Rate 24 19 18 Blood Pressure 130/85 Pulse Oximetry 100 100 100 02/04/18 06:00 02/04/18 07:00 02/04/18 07:05 Temperature Pulse Rate 68 73 72 Respiratory Rate 20 41 H 34 H Blood Pressure 131/81 Pulse Oximetry 100 100 100 02/04/18 08:00 02/04/18 08:05 02/04/18 09:00 Temperature 101.1 F H Pulse Rate 77 81 119 H Respiratory Rate 23 23 Blood Pressure 137/87 Pulse Oximetry 100 100 Intake & Output 02/03/18 02/04/18 02/04/18 18:59 06:59 18:59 Intake Total 1640 / 1640 1250 / 1250 100 / 100 Output Total 60 / 60 453 / 453 Balance 1580 / 1580 1250 / 1250 -353 / -353 Intake: IV 800 / 800 1250 / 1250 100 / 100 NS + KCl 40 mEq Inj 1,000 ML @ 1000 / 1000 75 mls/hr IV.CONT .[id number] [facility] Rx#:[id number] NS Inj 1,000 ML @ 100 mls/hr IV 400 / 400 .CONT .Q10H [facility] Rx#:[id number] Diflucan 100 mg Premix Bag 50 50 / 50 ML @ 50 mls/hr IV.SIG Q24H [facility] Rx#:[id number] KCl 20 mEq Premix Inj 20 meq In 400 / 400 200 / 200 100 / 100 100 ml @ 50 mls/hr IV.SIG Q2H [facility] Rx#:[id number] Oral 840 / 840 Output: Urine 60 / 60 Peritoneal Amount 453 / 453 Other: Date of Last Bowel Movement 02/03/18 02/04/18 02/04/18 # Incontinent Bowel Movements 3 4 Narrative: GENERAL: Thin AA male resting in bed in NAD. SKIN: Warm and dry. Hyperpigmented macular lesions over upper extremities. HEENT: AT/NC. Pupils equal and round. MMM. +oral thrush. HEART: RRR no m/r/g. LUNGS: CTAB without wheezes or crackles. ABDOMEN: +BS, soft, NT, ND. PD cath site with no signs of infection. EXTREMITIES: No LE edema. SCDs in place. Xerosis of feet bilaterally. NEURO: Awake and alert. PSYCH: Depressed affect. Results - Labs CBC & Chem 7: 02/04/18 03:38 02/04/18 03:38 Laboratory Results - last 24 hr 02/03/18 02/03/18 02/03/18 10:30 17:40 17:40 WBC RBC Hgb Hct MCV MCH MCHC RDW Plt Count MPV Sodium Potassium 2.7 L* Chloride Carbon Dioxide Anion Gap BUN Creatinine Estimated GFR Random Glucose Calcium Prot Corrected Calcium Phosphorus Magnesium Total Bilirubin AST ALT Alkaline Phosphatase Total Protein Albumin Stl C.difficile DNA Amp Negative St C. diff Tox Epid 027 Negative Hepatitis A IgM Ab Nonreactive Hep Bs Antigen Nonreactive Hep B Core IgM Ab Nonreactive Hep C IgG Ab Nonreactive 02/04/18 02/04/18 03:38 03:38 WBC 3.2 L RBC 3.68 L Hgb 9.6 L Hct 30.6 L MCV 83.1 MCH 26.2 L MCHC 31.6 L RDW 18.8 H Plt Count 152 MPV 8.0 Sodium 141 Potassium 2.8 L* Chloride 106 Carbon Dioxide 25.0 Anion Gap 10 BUN 34 H Creatinine 12.34 H* Estimated GFR 5 L Random Glucose 111 H Calcium 7.0 L* Prot Corrected Calcium 7.8 L Phosphorus 2.3 L Magnesium 1.5 Total Bilirubin 0.4 AST 15 ALT 9 L Alkaline Phosphatase 70 Total Protein 5.6 L Albumin 1.8 L Stl C.difficile DNA Amp St C. diff Tox Epid 027 Hepatitis A IgM Ab Hep Bs Antigen Hep B Core IgM Ab Hep C IgG Ab Microbiology 02/03/18 10:30 Stool Stool for WBCs - Final Rare WBC's Assessment and Plan - Assessment (1) HIV (human immunodeficiency virus infection) Code(s): B20 - Human immunodeficiency virus [HIV] disease Status: Acute (2) Thrush Code(s): B37.0 - Candidal stomatitis Status: Acute (3) Hypokalemia Code(s): E87.6 - Hypokalemia Status: Acute (4) ESRD on peritoneal dialysis Code(s): N18.6 - End stage renal disease; Z99.2 - Dependence on renal dialysis Status: Acute - Plan 52 YOAAM with history of HIV and ESRD on PD admitted overnight with generalized weakness, decreased appetite, nausea, and vomiting found to have significant hypokalemia and acute on chronic renal failure. 1. ESRD on PD - acute on chronic - Patient follows with Dr. Shah - Creatinine back in February ~ and was 13.53 on admission - Possibly secondary to decreased PO intake - Continue IV hydration - Nephrology following - Continue PD - Avoid nephrotoxic agents and renally dose meds 2. HIV - Last CD4 <20 on 03/09/17 - Noncompliant with f/u and taking antiretrovirals - Not on any prophylaxis. Started on Azithromycin but holding Bactrim secondary to his renal function - CD4 count and viral load pending - ID following 3. Hypokalemia - Improving slowly, potassium 1.9 on admission and 2.8 today - Possibly secondary to GI losses from diarrhea - Continue to replace and follow level closely - Mg WNL - Phosphorous low, start K-Phos - Monitor on tele - Repeat potassium this afternoon 4. Diarrhea - Check stool studies - C. diff negative - GI following - Colonoscopy tomorrow 5. Anemia of chronic disease - Secondary to ESRD and HIV - Patient also having some bloody, mucous-like diarrhea which may be causing an acute anemia component - Will continue to follow H&H, if worsens will consider GI consult 6. Thrush, odynophagia - Continue PO Diflucan - GI to perform EGD DVT prophylaxis: heparin, hold evening dose for GI procedure Discharge Planning: Pending further clinical work-up, was just admitted overnight and patient's condition critical given MIKE and persistent, severe hypokalemia
--- NOTE | 2018-02-04 13:47 | P.PNNP ---
Subjective Interval history: Ongoing diarrhea, fatigue Physical Exam Vital signs: Vital Signs 02/03/18 14:00 02/03/18 14:05 02/03/18 15:00 Temperature 98.0 F Pulse Rate 95 H 97 H 87 Respiratory Rate 23 21 26 H Blood Pressure 118/77 Pulse Oximetry 94 L 94 L 96 02/03/18 15:05 02/03/18 16:00 02/03/18 16:12 Temperature Pulse Rate 87 78 77 Respiratory Rate 28 H 24 25 H Blood Pressure 119/80 124/84 Pulse Oximetry 96 87 L 97 02/03/18 17:00 02/03/18 17:05 02/03/18 18:00 Temperature Pulse Rate 69 71 73 Respiratory Rate 21 23 21 Blood Pressure 126/81 Pulse Oximetry 98 99 100 02/03/18 18:05 02/03/18 19:00 02/03/18 19:05 Temperature Pulse Rate 82 86 94 H Respiratory Rate 23 25 H 27 H Blood Pressure 144/90 H 140/86 Pulse Oximetry 100 100 02/03/18 20:00 02/03/18 20:33 02/03/18 21:00 Temperature 98.3 F Pulse Rate 104 H 111 H 114 H Respiratory Rate 27 H 25 H 27 H Blood Pressure 112/76 112/76 Pulse Oximetry 100 94 L 02/03/18 21:05 02/03/18 21:18 02/03/18 22:00 Temperature Pulse Rate 115 H 110 H Respiratory Rate 26 H 30 H Blood Pressure 117/72 Pulse Oximetry 89 L 94 L 96 02/03/18 22:05 02/03/18 23:00 02/03/18 23:05 Temperature Pulse Rate 102 H 101 H 101 H Respiratory Rate 20 21 21 Blood Pressure 117/73 102/69 Pulse Oximetry 94 L 96 97 02/04/18 00:00 02/04/18 00:05 02/04/18 01:00 Temperature 97.8 F Pulse Rate 99 H 94 H 89 Respiratory Rate 26 H 23 23 Blood Pressure 120/82 120/82 Pulse Oximetry 91 L 91 L 95 02/04/18 01:05 02/04/18 02:00 02/04/18 02:05 Temperature Pulse Rate 88 77 71 Respiratory Rate 23 20 17 Blood Pressure 120/84 111/73 Pulse Oximetry 96 95 95 02/04/18 03:00 02/04/18 03:05 02/04/18 04:00 Temperature 97.7 F Pulse Rate 84 77 73 Respiratory Rate 22 20 24 Blood Pressure 115/79 Pulse Oximetry 98 100 02/04/18 05:00 02/04/18 05:05 02/04/18 06:00 Temperature Pulse Rate 67 65 68 Respiratory Rate 19 18 20 Blood Pressure 130/85 Pulse Oximetry 100 100 100 02/04/18 07:00 02/04/18 07:05 02/04/18 08:00 Temperature 101.1 F H Pulse Rate 73 72 77 Respiratory Rate 41 H 34 H 23 Blood Pressure 131/81 Pulse Oximetry 100 100 100 02/04/18 08:05 02/04/18 09:00 02/04/18 09:05 Temperature Pulse Rate 81 103 H 92 H Respiratory Rate 23 25 H 21 Blood Pressure 137/87 118/70 Pulse Oximetry 100 100 100 02/04/18 10:00 02/04/18 10:05 02/04/18 11:00 Temperature Pulse Rate 117 H 111 H 100 H Respiratory Rate 27 H 23 21 Blood Pressure 108/69 Pulse Oximetry 100 100 100 02/04/18 11:05 02/04/18 12:00 Temperature 98.5 F Pulse Rate 98 H 82 Respiratory Rate 21 22 Blood Pressure 107/70 Pulse Oximetry 100 100 Intake & Output 02/03/18 02/04/18 02/04/18 18:59 06:59 18:59 Intake Total 1640 / 1640 1250 / 1250 100 / 100 Output Total 60 / 60 453 / 453 Balance 1580 / 1580 1250 / 1250 -353 / -353 Intake: IV 800 / 800 1250 / 1250 100 / 100 NS + KCl 40 mEq Inj 1,000 ML @ 1000 / 1000 75 mls/hr IV.CONT .[id number] [facility] Rx#:[id number] NS Inj 1,000 ML @ 100 mls/hr IV 400 / 400 .CONT .Q10H [facility] Rx#:[id number] Diflucan 100 mg Premix Bag 50 50 / 50 ML @ 50 mls/hr IV.SIG Q24H [facility] Rx#:[id number] KCl 20 mEq Premix Inj 20 meq In 400 / 400 200 / 200 100 / 100 100 ml @ 50 mls/hr IV.SIG Q2H [facility] Rx#:[id number] Oral 840 / 840 Output: Urine 60 / 60 Peritoneal Amount 453 / 453 Other: Date of Last Bowel Movement 02/03/18 02/04/18 02/04/18 # Incontinent Bowel Movements 3 4 - Constitutional no acute distress - Routine HEENT Exam Head: Present: normocephalic Eye: Present: EOMI - Routine Neck Exam Present: supple - Routine Respiratory Exam Present: CTA bilaterally - Routine Cardiovascular Exam Present: RRR - Routine Abdominal Exam Present: soft - Routine Skin Exam Present: intact - Routine Neurological Exam Present: alert - Detailed Neurological Exam: Coma Scale Eye Opening: Spontaneous - Routine Psychiatric Exam Present: normal affect Assessment and Plan - Assessment (1) ESRD on peritoneal dialysis Code(s): N18.6 - End stage renal disease; Z99.2 - Dependence on renal dialysis Status: Acute Plan: Tolerating PD - 450cc UF last night Ongoing volume depletion and hypokalemia in setting of diarrhea, decreased PO intake Continue IVFs - on NS + 40meq KCl @100cc/hour Caution with IVFs given ESRD, however severe volume depletion (2) Diarrhea Code(s): R19.7 - Diarrhea, unspecified Status: Acute Plan: Follow with GI, ID. Planned EGD/Colonscopy tomorrow, with finding of thrush and ongoing diarrhea Stool studies pending (3) HIV (human immunodeficiency virus infection) Code(s): B20 - Human immunodeficiency virus [HIV] disease Status: Acute Plan: non-compliance, follow with ID (4) Thrush Code(s): B37.0 - Candidal stomatitis Status: Acute (5) Hypokalemia Code(s): E87.6 - Hypokalemia Status: Acute Plan: Due to poor PO intake, GI losses The patient presented with significant hypokalemia with a potassium of 1.9 at the time of admission. Magnesium 1.5 Continue potassium supplementation, on IVFs with potassium as well. Initially given magnesium, continue to monitor - Plan ti
[2018-02-04] MEDS ORDERED: PEG 3350/E-Lyte Soln 4000 ML Bottle PO ONE (15:00)
--- NOTE | 2018-02-04 15:10 | P.PNGI ---
Subjective Interval history: Patient is more alert today appears to be feeling somewhat better discussed with him in detail again procedure for EGD and colonoscopy as well as prep, n.p.o. at midnight, and biopsies which will be pending for several days Loose diarrheal stools have improved to a softer consistency no nausea no vomiting tolerating clear liquids <Saritha Sanchez - Last Filed: 02/04/18 15:17> Physical Exam Vital signs: Vital Signs 02/03/18 16:00 02/03/18 16:12 02/03/18 17:00 Temperature Pulse Rate 78 77 69 Respiratory Rate 24 25 H 21 Blood Pressure 124/84 Pulse Oximetry 87 L 97 98 02/03/18 17:05 02/03/18 18:00 02/03/18 18:05 Temperature Pulse Rate 71 73 82 Respiratory Rate 23 21 23 Blood Pressure 126/81 144/90 H Pulse Oximetry 99 100 100 02/03/18 19:00 02/03/18 19:05 02/03/18 20:00 Temperature 98.3 F Pulse Rate 86 94 H 104 H Respiratory Rate 25 H 27 H 27 H Blood Pressure 140/86 112/76 Pulse Oximetry 100 100 02/03/18 20:33 02/03/18 21:00 02/03/18 21:05 Temperature Pulse Rate 111 H 114 H 115 H Respiratory Rate 25 H 27 H 26 H Blood Pressure 112/76 117/72 Pulse Oximetry 94 L 89 L 02/03/18 21:18 02/03/18 22:00 02/03/18 22:05 Temperature Pulse Rate 110 H 102 H Respiratory Rate 30 H 20 Blood Pressure 117/73 Pulse Oximetry 94 L 96 94 L 02/03/18 23:00 02/03/18 23:05 02/04/18 00:00 Temperature 97.8 F Pulse Rate 101 H 101 H 99 H Respiratory Rate 21 21 26 H Blood Pressure 102/69 120/82 Pulse Oximetry 96 97 91 L 02/04/18 00:05 02/04/18 01:00 02/04/18 01:05 Temperature Pulse Rate 94 H 89 88 Respiratory Rate 23 23 23 Blood Pressure 120/82 120/84 Pulse Oximetry 91 L 95 96 02/04/18 02:00 02/04/18 02:05 02/04/18 03:00 Temperature Pulse Rate 77 71 84 Respiratory Rate 20 17 22 Blood Pressure 111/73 Pulse Oximetry 95 95 02/04/18 03:05 02/04/18 04:00 02/04/18 05:00 Temperature 97.7 F Pulse Rate 77 73 67 Respiratory Rate 20 24 19 Blood Pressure 115/79 Pulse Oximetry 98 100 100 02/04/18 05:05 02/04/18 06:00 02/04/18 07:00 Temperature Pulse Rate 65 68 73 Respiratory Rate 18 20 41 H Blood Pressure 130/85 Pulse Oximetry 100 100 100 02/04/18 07:05 02/04/18 08:00 02/04/18 08:05 Temperature 101.1 F H Pulse Rate 72 77 81 Respiratory Rate 34 H 23 23 Blood Pressure 131/81 137/87 Pulse Oximetry 100 100 100 02/04/18 09:00 02/04/18 09:05 02/04/18 10:00 Temperature Pulse Rate 103 H 92 H 117 H Respiratory Rate 25 H 21 27 H Blood Pressure 118/70 Pulse Oximetry 100 100 100 02/04/18 10:05 02/04/18 11:00 02/04/18 11:05 Temperature Pulse Rate 111 H 100 H 98 H Respiratory Rate 23 21 21 Blood Pressure 108/69 107/70 Pulse Oximetry 100 100 100 02/04/18 12:00 Temperature 98.5 F Pulse Rate 82 Respiratory Rate 22 Blood Pressure Pulse Oximetry 100 Intake & Output 02/03/18 02/04/18 02/04/18 18:59 06:59 18:59 Intake Total 1640 / 1640 1250 / 1250 100 / 100 Output Total 60 / 60 453 / 453 Balance 1580 / 1580 1250 / 1250 -353 / -353 Intake: IV 800 / 800 1250 / 1250 100 / 100 NS + KCl 40 mEq Inj 1,000 ML @ 1000 / 1000 75 mls/hr IV.CONT .[id number] [facility] Rx#:[id number] NS Inj 1,000 ML @ 100 mls/hr IV 400 / 400 .CONT .Q10H [facility] Rx#:[id number] Diflucan 100 mg Premix Bag 50 50 / 50 ML @ 50 mls/hr IV.SIG Q24H [facility] Rx#:[id number] KCl 20 mEq Premix Inj 20 meq In 400 / 400 200 / 200 100 / 100 100 ml @ 50 mls/hr IV.SIG Q2H [facility] Rx#:[id number] Oral 840 / 840 Output: Urine 60 / 60 Peritoneal Amount 453 / 453 Other: Date of Last Bowel Movement 02/03/18 02/04/18 02/04/18 # Incontinent Bowel Movements 3 4 - Constitutional mild distress, cachectic, cooperative - Routine HEENT Exam Head: Present: normocephalic (Pale mucous membranes) ENT: Present: mucous membranes dry - Routine Neck Exam Present: supple - Routine Respiratory Exam Present: accessory muscle use (Low volumes but no obvious shortness of breath at rest,) - Routine Cardiovascular Exam Present: S1 ( oxygen as needed), S2 - Routine Abdominal Exam Present: soft (Flat, soft bowel sounds no obvious tenderness to light palpation , loose stools improving today no watery consistency noted), normoactive bowel sounds <Saritha Sanchez - Last Filed: 02/04/18 15:17> Vital signs: Vital Signs 02/03/18 16:00 02/03/18 16:12 02/03/18 17:00 Temperature Pulse Rate 78 77 69 Respiratory Rate 24 25 H 21 Blood Pressure 124/84 Pulse Oximetry 87 L 97 98 02/03/18 17:05 02/03/18 18:00 02/03/18 18:05 Temperature Pulse Rate 71 73 82 Respiratory Rate 23 21 23 Blood Pressure 126/81 144/90 H Pulse Oximetry 99 100 100 02/03/18 19:00 02/03/18 19:05 02/03/18 20:00 Temperature 98.3 F Pulse Rate 86 94 H 104 H Respiratory Rate 25 H 27 H 27 H Blood Pressure 140/86 112/76 Pulse Oximetry 100 100 02/03/18 20:33 02/03/18 21:00 02/03/18 21:05 Temperature Pulse Rate 111 H 114 H 115 H Respiratory Rate 25 H 27 H 26 H Blood Pressure 112/76 117/72 Pulse Oximetry 94 L 89 L 02/03/18 21:18 02/03/18 22:00 02/03/18 22:05 Temperature Pulse Rate 110 H 102 H Respiratory Rate 30 H 20 Blood Pressure 117/73 Pulse Oximetry 94 L 96 94 L 02/03/18 23:00 02/03/18 23:05 02/04/18 00:00 Temperature 97.8 F Pulse Rate 101 H 101 H 99 H Respiratory Rate 21 21 26 H Blood Pressure 102/69 120/82 Pulse Oximetry 96 97 91 L 02/04/18 00:05 02/04/18 01:00 02/04/18 01:05 Temperature Pulse Rate 94 H 89 88 Respiratory Rate 23 23 23 Blood Pressure 120/82 120/84 Pulse Oximetry 91 L 95 96 02/04/18 02:00 02/04/18 02:05 02/04/18 03:00 Temperature Pulse Rate 77 71 84 Respiratory Rate 20 17 22 Blood Pressure 111/73 Pulse Oximetry 95 95 02/04/18 03:05 02/04/18 04:00 02/04/18 05:00 Temperature 97.7 F Pulse Rate 77 73 67 Respiratory Rate 20 24 19 Blood Pressure 115/79 Pulse Oximetry 98 100 100 02/04/18 05:05 02/04/18 06:00 02/04/18 07:00 Temperature Pulse Rate 65 68 73 Respiratory Rate 18 20 41 H Blood Pressure 130/85 Pulse Oximetry 100 100 100 02/04/18 07:05 02/04/18 08:00 02/04/18 08:05 Temperature 101.1 F H Pulse Rate 72 77 81 Respiratory Rate 34 H 23 23 Blood Pressure 131/81 137/87 Pulse Oximetry 100 100 100 02/04/18 09:00 02/04/18 09:05 02/04/18 10:00 Temperature Pulse Rate 103 H 92 H 117 H Respiratory Rate 25 H 21 27 H Blood Pressure 118/70 Pulse Oximetry 100 100 100 02/04/18 10:05 02/04/18 11:00 02/04/18 11:05 Temperature Pulse Rate 111 H 100 H 98 H Respiratory Rate 23 21 21 Blood Pressure 108/69 107/70 Pulse Oximetry 100 100 100 02/04/18 12:00 Temperature 98.5 F Pulse Rate 82 Respiratory Rate 22 Blood Pressure Pulse Oximetry 100 Intake & Output 02/03/18 02/04/18 02/04/18 18:59 06:59 18:59 Intake Total 1640 / 1640 1250 / 1250 100 / 100 Output Total 60 / 60 453 / 453 Balance 1580 / 1580 1250 / 1250 -353 / -353 Intake: IV 800 / 800 1250 / 1250 100 / 100 NS + KCl 40 mEq Inj 1,000 ML @ 1000 / 1000 75 mls/hr IV.CONT .[id number] [facility] Rx#:[id number] NS Inj 1,000 ML @ 100 mls/hr IV 400 / 400 .CONT .Q10H [facility] Rx#:[id number] Diflucan 100 mg Premix Bag 50 50 / 50 ML @ 50 mls/hr IV.SIG Q24H [facility] Rx#:[id number] KCl 20 mEq Premix Inj 20 meq In 400 / 400 200 / 200 100 / 100 100 ml @ 50 mls/hr IV.SIG Q2H [facility] Rx#:[id number] Oral 840 / 840 Output: Urine 60 / 60 Peritoneal Amount 453 / 453 Other: Date of Last Bowel Movement 02/03/18 02/04/18 02/04/18 # Incontinent Bowel Movements 3 4 <Sabra Hutchison - Last Filed: 02/04/18 15:18> Results - Labs CBC & Chem 7: 02/04/18 03:38 02/04/18 03:38 Laboratory Results - last 24 hr 02/03/18 02/03/18 02/03/18 10:30 17:40 17:40 WBC RBC Hgb Hct MCV MCH MCHC RDW Plt Count MPV Sodium Potassium 2.7 L* Chloride Carbon Dioxide Anion Gap BUN Creatinine Estimated GFR Random Glucose Calcium Prot Corrected Calcium Phosphorus Magnesium Total Bilirubin AST ALT Alkaline Phosphatase Total Protein Albumin Stl C.difficile DNA Amp Negative St C. diff Tox Epid 027 Negative Hepatitis A IgM Ab Nonreactive Hep Bs Antigen Nonreactive Hep B Core IgM Ab Nonreactive Hep C IgG Ab Nonreactive 02/04/18 02/04/18 03:38 03:38 WBC 3.2 L RBC 3.68 L Hgb 9.6 L Hct 30.6 L MCV 83.1 MCH 26.2 L MCHC 31.6 L RDW 18.8 H Plt Count 152 MPV 8.0 Sodium 141 Potassium 2.8 L* Chloride 106 Carbon Dioxide 25.0 Anion Gap 10 BUN 34 H Creatinine 12.34 H* Estimated GFR 5 L Random Glucose 111 H Calcium 7.0 L* Prot Corrected Calcium 7.8 L Phosphorus 2.3 L Magnesium 1.5 Total Bilirubin 0.4 AST 15 ALT 9 L Alkaline Phosphatase 70 Total Protein 5.6 L Albumin 1.8 L Stl C.difficile DNA Amp St C. diff Tox Epid 027 Hepatitis A IgM Ab Hep Bs Antigen Hep B Core IgM Ab Hep C IgG Ab Microbiology 02/03/18 10:30 Stool Stool for WBCs - Final Rare WBC's <Saritha Sanchez - Last Filed: 02/04/18 15:17> - Labs CBC & Chem 7: 02/04/18 03:38 02/04/18 03:38 Laboratory Results - last 24 hr 02/03/18 02/03/18 02/03/18 10:30 17:40 17:40 WBC RBC Hgb Hct MCV MCH MCHC RDW Plt Count MPV Sodium Potassium 2.7 L* Chloride Carbon Dioxide Anion Gap BUN Creatinine Estimated GFR Random Glucose Calcium Prot Corrected Calcium Phosphorus Magnesium Total Bilirubin AST ALT Alkaline Phosphatase Total Protein Albumin Stl C.difficile DNA Amp Negative St C. diff Tox Epid 027 Negative Hepatitis A IgM Ab Nonreactive Hep Bs Antigen Nonreactive Hep B Core IgM Ab Nonreactive Hep C IgG Ab Nonreactive 02/04/18 02/04/18 03:38 03:38 WBC 3.2 L RBC 3.68 L Hgb 9.6 L Hct 30.6 L MCV 83.1 MCH 26.2 L MCHC 31.6 L RDW 18.8 H Plt Count 152 MPV 8.0 Sodium 141 Potassium 2.8 L* Chloride 106 Carbon Dioxide 25.0 Anion Gap 10 BUN 34 H Creatinine 12.34 H* Estimated GFR 5 L Random Glucose 111 H Calcium 7.0 L* Prot Corrected Calcium 7.8 L Phosphorus 2.3 L Magnesium 1.5 Total Bilirubin 0.4 AST 15 ALT 9 L Alkaline Phosphatase 70 Total Protein 5.6 L Albumin 1.8 L Stl C.difficile DNA Amp St C. diff Tox Epid 027 Hepatitis A IgM Ab Hep Bs Antigen Hep B Core IgM Ab Hep C IgG Ab Microbiology 02/03/18 10:30 Stool Stool for WBCs - Final Rare WBC's <Sabra Hutchison - Last Filed: 02/04/18 15:18> Assessment and Plan - Plan Dysphasia, oral thrush noted on admission which could be related to Kayla esophagitis, anorexia approximately 2 weeks, which could be related to Kayla/ dysphasia Diarrhea stools Generalized weakness and fatigue history of HIV since the age of 23, currently being worked up per I&D who recommends EGD and colonoscopy to rule out Kayla esophagitis. Request for colonoscopy to rule out PCP, CM V or AFB as cause for diarrhea. Enterovirus stool sample pending History of acute on chronic renal failure 02/04/2018 patient appears to be feeling better today and more alert. Still has some mild dysphasia in the back of the throat but still could be related to Kayla. Tolerating clear liquids without nausea or vomiting. Discussed in length again today EGD and colonoscopy and answered any questions. Labs reviewed current hemoglobin 9.6, WBC count 3.2,. Loose diarrheal stools show gradual improvement with softer consistency less watery. Plan Diet clear liquids EGD colonoscopy Monday a.m. N.p.o. at midnight GoLYTELY prep, discussed with patient the need to drink all of the prep so there is a clear liquid return or test will possibly have to be repeated Monitor labs, hepatitis panel nonreactive Stool studies showed C. difficile toxin negative Continue Diflucan Hold blood thinners in the a.m. before procedure Further recommendations to follow Supportive care Patient was seen per myself and Dr. Hutchison, note was written on his behalf <Saritha Sanchez - Last Filed: 02/04/18 15:17> - Plan Seen and examined with [employer] [employer], egd/colonoscopy planned for tomorrow. Discussed procedure with pt. <Sabra Hutchison - Last Filed: 02/04/18 15:18>
[2018-02-04] MEDS: Potassium Phosphate 500 MG Soluble Tablet PO SCH (17:24)
[2018-02-04] MEDS: Potassium Chloride Inj 30 MEQ in Sodium Chlor 0.9% Inj 100 ML IV.SIG SCH ×2 (17:25→19:39)
[2018-02-05] MEDS: Chlorhexidine Gluconate 2% 1 Pack (2 Cloths) TOPICAL SCH (05:24)
[2018-02-05 06:52] LABS: Hematocrit 31.2 % (39.0-51.0); Hemoglobin 9.7 gm/dL (13.0-17.0); Mean Corpuscular HGB Conc 31.2 % (32.0-36.0); Mean Corpuscular Hemoglobin 25.9 pg (27.0-34.0); Platelet Count 136 th/mm3 (150-450); Red Blood Count 3.76 mil/mm3 (4.50-5.90); Red Cell Distribution Width 18.8 % (11.6-17.2); White Blood Count 3.1 th/mm3 (4.0-11.0)
[2018-02-05 07:23] LABS: Albumin 1.7 g/dL (3.4-5.0); Calcium 7.4 mg/dL (8.5-10.1); Carbon Dioxide 22.3 meq/L (21.0-32.0); Magnesium 1.6 mg/dL (1.5-2.5); Phosphorus 1.5 mg/dL (2.5-4.9); Potassium 3.5 meq/L (3.5-5.1); Total Protein 5.6 g/dL (6.4-8.2)
[2018-02-05] MEDS: Potassium Phosphate 500 MG Soluble Tablet PO SCH ×2 (08:19→08:35)
[2018-02-05] MEDS: Senna/Docusate Sodium 8.6/50 MG Tablet PO SCH ×2 (08:19→22:01)
--- NOTE | 2018-02-05 09:33 | P.PNNP ---
Subjective Interval history: Plan for EGD and colonscopy today. PD nightly tolerating well. Denies any shortness of breath. Nausea and vomiting reported yesterday. <Karolyn Jolly - Last Filed: 02/05/18 13:22> Physical Exam Vital signs: Vital Signs 02/04/18 10:00 02/04/18 10:05 02/04/18 11:00 Temperature Pulse Rate 117 H 111 H 100 H Respiratory Rate 27 H 23 21 Blood Pressure 108/69 Pulse Oximetry 100 100 100 02/04/18 11:05 02/04/18 12:00 02/04/18 12:05 Temperature 98.5 F Pulse Rate 98 H 82 80 Respiratory Rate 21 22 19 Blood Pressure 107/70 108/72 Pulse Oximetry 100 100 100 02/04/18 13:00 02/04/18 13:05 02/04/18 14:00 Temperature Pulse Rate 90 83 63 Respiratory Rate 24 22 14 Blood Pressure 114/79 Pulse Oximetry 100 100 100 02/04/18 14:05 02/04/18 15:00 02/04/18 15:05 Temperature Pulse Rate 59 L 73 92 H Respiratory Rate 14 19 24 Blood Pressure 114/69 137/85 Pulse Oximetry 100 100 99 02/04/18 16:00 02/04/18 16:05 02/04/18 17:00 Temperature Pulse Rate 87 84 96 H Respiratory Rate 17 22 23 Blood Pressure 149/90 H Pulse Oximetry 100 100 02/04/18 17:05 02/04/18 18:00 02/04/18 18:05 Temperature Pulse Rate 105 H 120 H 113 H Respiratory Rate 25 H 22 27 H Blood Pressure 132/91 H 144/94 H Pulse Oximetry 75 L 83 L 02/04/18 19:00 02/04/18 19:05 02/04/18 20:00 Temperature 97.6 F Pulse Rate 110 H 102 H 91 H Respiratory Rate 26 H 23 22 Blood Pressure 159/78 H 131/83 Pulse Oximetry 95 92 L 100 02/04/18 20:05 02/04/18 21:00 02/04/18 21:05 Temperature Pulse Rate 92 H 82 90 Respiratory Rate 23 17 20 Blood Pressure 131/83 109/75 Pulse Oximetry 100 100 100 02/04/18 22:00 02/04/18 22:05 02/04/18 23:00 Temperature Pulse Rate 78 74 94 H Respiratory Rate 17 17 23 Blood Pressure 120/80 Pulse Oximetry 100 100 100 02/04/18 23:05 02/05/18 00:00 02/05/18 00:05 Temperature 97.6 F Pulse Rate 89 84 87 Respiratory Rate 22 24 22 Blood Pressure 126/89 159/97 H Pulse Oximetry 100 100 100 02/05/18 04:00 Temperature 98.7 F Pulse Rate 103 H Respiratory Rate 24 Blood Pressure 121/78 Pulse Oximetry 100 Intake & Output 02/04/18 02/05/18 02/05/18 18:59 06:59 18:59 Intake Total 1200 / 1200 3990 / 3990 100 / 100 Output Total 453 / 453 2050 / 2050 435 / 435 Balance 747 / 747 1940 / 1940 -335 / -335 Weight 65.2 kg Intake: IV 1200 / 1200 1250 / 1250 100 / 100 NS + KCl 40 mEq Inj 1,000 ML @ 1000 / 1000 1000 / 1000 100 mls/hr IV.CONT .Q10H [facility] Rx #:[id number] Diflucan 100 mg Premix Bag 50 50 / 50 ML @ 50 mls/hr IV.SIG Q24H [facility] Rx#:[id number] KCl 20 mEq Premix Inj 20 meq In 200 / 200 200 / 200 100 ml @ 50 mls/hr IV.SIG Q2H [facility] Rx#:[id number] Oral 2740 / 2740 Output: Urine 100 / 100 Stool 1950 / 1950 Peritoneal Amount 453 / 453 435 / 435 Other: Date of Last Bowel Movement 02/04/18 02/05/18 # Incontinent Bowel Movements 3 Narrative: GENERAL: Well-nourished well-developed, not in acute distress SKIN: Cool and dry, no generalized rash. NECK: Trachea midline. Supple, nontender, no meningeal signs. CARDIOVASCULAR: HS audible. RESPIRATORY: Clear to auscultation bilaterally. GASTROINTESTINAL: Abdomen soft nontender. PD catheter insertion site with no evidence of infection. No guarding no rigidity. MUSCULOSKELETAL: Extremities without clubbing, cyanosis. NEUROLOGICAL: Alert oriented 3. <Karolyn Jolly - Last Filed: 02/05/18 13:22> Vital signs: Vital Signs 02/07/18 12:00 02/07/18 16:00 02/07/18 16:54 Temperature 98.6 F 99.0 F Pulse Rate 90 86 86 Respiratory Rate 18 18 Blood Pressure 124/98 H 130/86 Pulse Oximetry 98 97 02/07/18 19:25 02/07/18 20:00 02/07/18 23:29 Temperature 99.7 F H 98.5 F Pulse Rate 98 H 100 H 89 Respiratory Rate 18 16 Blood Pressure 120/82 117/82 Pulse Oximetry 98 100 02/08/18 00:00 02/08/18 04:00 02/08/18 08:00 Temperature 98.2 F 100.3 F H Pulse Rate 81 80 90 Respiratory Rate 18 17 Blood Pressure 113/81 137/93 H Pulse Oximetry 100 99 Intake & Output 02/07/18 02/08/18 02/08/18 18:59 06:59 18:59 Intake Total 500 / 500 492 / 492 Output Total 75 / 75 150 / 150 Balance 425 / 425 342 / 342 Weight 63.6 kg Intake: IV 50 / 50 Diflucan 100 mg Premix Bag 50 50 / 50 ML @ 50 mls/hr IV.SIG Q24H [facility] Rx#:[id number] Oral 500 / 500 442 / 442 Output: Urine 75 / 75 150 / 150 Other: # Bowel Movements 2 <Jonathan Shah Q - Last Filed: 02/08/18 10:53> Assessment and Plan - Assessment (1) ESRD on peritoneal dialysis Code(s): N18.6 - End stage renal disease; Z99.2 - Dependence on renal dialysis Status: Acute Plan: Tolerating PD - 435cc UF last night Continue IVFs - on NS + 40meq KCl @100cc/hour Caution with IVFs given ESRD, however severe volume depletion and NPO PO4 low will order Kphos (2) Diarrhea Code(s): R19.7 - Diarrhea, unspecified Status: Acute Plan: Follow with GI, ID. Planned EGD/Colonscopy today (3) HIV (human immunodeficiency virus infection) Code(s): B20 - Human immunodeficiency virus [HIV] disease Status: Acute Plan: non-compliance, follow with ID (4) Thrush Code(s): B37.0 - Candidal stomatitis Status: Acute (5) Hypokalemia Code(s): E87.6 - Hypokalemia Status: Acute Plan: Due to poor PO intake, GI losses The patient presented with significant hypokalemia with a potassium of 1.9 at the time of admission. Magnesium 1.5 Continue potassium supplementation, on IVFs with potassium as well. Continue to monitor <Karolyn Jolly - Last Filed: 02/05/18 13:22> - Assessment (1) ESRD on peritoneal dialysis Code(s): N18.6 - End stage renal disease; Z99.2 - Dependence on renal dialysis Status: Acute Plan: Patient seen and examined, agree with above. Patient with ESRD, on PD, came with severe dehydration and electrolyte imbalance. K was very low, and Po4 is being replaced. Told to eat more K in the diet. PD fluid is clear, continue same PD. (2) Diarrhea Code(s): R19.7 - Diarrhea, unspecified Status: Acute (3) HIV (human immunodeficiency virus infection) Code(s): B20 - Human immunodeficiency virus [HIV] disease Status: Acute (4) Thrush Code(s): B37.0 - Candidal stomatitis Status: Acute (5) Hypokalemia Code(s): E87.6 - Hypokalemia Status: Acute <Leonides Shah - Last Filed: 02/08/18 10:53>
--- NOTE | 2018-02-05 13:16 | P.PNID ---
Subjective Remarks: is a 52-year-old -[place] past medical history significant for HIV diagnosed when he was 23 years old. Patient reports that he used to see RADHA Leslie at Dr. Paul office for his HIV care. He reports that the last time he saw her was approximately 2 years back. When asked patient did not know his most recent CD4 count or viral load. He did not know his current HIV medication regimen. When questioned who was prescribing his HIV medication he replied that it may have been either Dr. Paul office or 's office. The last known CD4 count for the patient is less than 2 and this was approximately a year back. Patient also is on peritoneal dialysis for his end- stage renal disease and follows up with . Patient reports that approximately 2 weeks back he started developing diarrhea with no blood. He denies any black tarry stools or fresh blood per rectum. He initially did not have any nausea or vomiting subsequently reports having developed nausea. Approximately 4 days prior to admission patient lost his appetite had nausea and may be some difficulty swallowing. Patient reports that when he presented to the emergency department he was questioned about white patches on his tongue and was told that it was oral thrush. He thinks it is the first time he has been told he has oral thrush. He denies any prior admissions for AIDS defining illnesses. He does not remember being on any prophylactic regimen for prevention of infections. At baseline patient is able to wake up in the morning drive his car and go to get some breakfast as well as lunch and stay at the mall for several hours. He thinks he may be depressed because after getting home he pretty much stays in his so far all day. He reports that he has a partner who lives in [place] but they are not sexually active for the last 6 months. With this background patient presents to the emergency department at [facility] with complaints of generalized weakness, dizziness decreased appetite for approximately 2 weeks. Due to worsening symptoms of nausea and inability to stand due to extreme weakness he presented to the emergency department. He denies any fevers chills night sweats. He denies any other systemic symptoms. He undergoes peritoneal dialysis every night and denies any abdominal pain or discharge from the PD catheter site. On arrival to the emergency department his blood pressure was 92 x 52 his heart rate was 117 his O2 sats were 98% on room air and he had a temperature of 99.6. Since admission he has had no fevers. He has been receiving IV fluids but is not on any pressors. Patient's creatinine was found to be 13.53 and his potassium was 1.9 and therefore patient is admitted to the intensive care unit. At the present time although he is in the ICU he has been managed by the primary care team. His chest x-ray showed no acute findings. Infectious diseases consulted for evaluation and management of possible sepsis, HIV/AIDS, oral thrush possible esophagitis. Overnight events reviewed. Underwent GoLYTELY prep for GI procedures N.p.o. at the present time No fever No rash PD performed last night Antibiotics: Fluconazole IV Azithromycin 1200 mg once a week Lines: Lines ok Past Medical History: Reviewed Allergies/Adverse Reactions: Allergies No Known Allergies Allergy (Verified 02/02/18 13:58) Objective Vital Signs 02/04/18 14:00 02/04/18 14:05 02/04/18 15:00 Temperature Pulse Rate 63 59 L 73 Respiratory Rate 14 14 19 Blood Pressure 114/69 Pulse Oximetry 100 100 100 02/04/18 15:05 02/04/18 16:00 02/04/18 16:05 Temperature Pulse Rate 92 H 87 84 Respiratory Rate 24 17 22 Blood Pressure 137/85 149/90 H Pulse Oximetry 99 100 100 02/04/18 17:00 02/04/18 17:05 02/04/18 18:00 Temperature Pulse Rate 96 H 105 H 120 H Respiratory Rate 23 25 H 22 Blood Pressure 132/91 H Pulse Oximetry 75 L 02/04/18 18:05 02/04/18 19:00 02/04/18 19:05 Temperature Pulse Rate 113 H 110 H 102 H Respiratory Rate 27 H 26 H 23 Blood Pressure 144/94 H 159/78 H Pulse Oximetry 83 L 95 92 L 02/04/18 20:00 02/04/18 20:05 02/04/18 21:00 Temperature 97.6 F Pulse Rate 91 H 92 H 82 Respiratory Rate 22 23 17 Blood Pressure 131/83 131/83 Pulse Oximetry 100 100 100 02/04/18 21:05 02/04/18 22:00 02/04/18 22:05 Temperature Pulse Rate 90 78 74 Respiratory Rate 20 17 17 Blood Pressure 109/75 120/80 Pulse Oximetry 100 100 100 02/04/18 23:00 02/04/18 23:05 02/05/18 00:00 Temperature Pulse Rate 94 H 89 84 Respiratory Rate 23 22 24 Blood Pressure 126/89 Pulse Oximetry 100 100 100 02/05/18 00:05 02/05/18 04:00 02/05/18 12:19 Temperature 97.6 F 98.7 F Pulse Rate 87 103 H Respiratory Rate 22 24 Blood Pressure 159/97 H 121/78 Pulse Oximetry 100 100 100 Intake & Output 02/04/18 02/05/18 02/05/18 18:59 06:59 18:59 Intake Total 1200 / 1200 3990 / 3990 100 / 100 Output Total 453 / 453 2050 / 2050 435 / 435 Balance 747 / 747 1940 / 1940 -335 / -335 Weight 65.2 kg Intake: IV 1200 / 1200 1250 / 1250 100 / 100 NS + KCl 40 mEq Inj 1,000 ML @ 1000 / 1000 1000 / 1000 100 mls/hr IV.CONT .Q10H [facility] Rx #:[id number] Diflucan 100 mg Premix Bag 50 50 / 50 ML @ 50 mls/hr IV.SIG Q24H [facility] Rx#:[id number] KCl 20 mEq Premix Inj 20 meq In 200 / 200 200 / 200 100 ml @ 50 mls/hr IV.SIG Q2H [facility] Rx#:[id number] Oral 2740 / 2740 Output: Urine 100 / 100 Stool 1950 / 1950 Peritoneal Amount 453 / 453 435 / 435 Other: Date of Last Bowel Movement 02/04/18 02/05/18 # Incontinent Bowel Movements 3 02/03/18 10:30 Stool Cryptosporidium Antigen - Final Negative - No Cryptosporicium antigen detected In selected cases of patients with a history of immunosuppression or foreign travel, a full ova and parasites examination may be desired. Contact the microbiology lab if full workup is indicated and subit another specimen for testing. 02/03/18 10:30 Stool Giardia Antigen ([facility]) - Final Negative - No Giardia Antigen detected In selected cases of patients with a history of immunosuppression or foreign travel, a full ova and parasites examination may be desired. Contact the microbiology lab if full workup is indicated and subit another specimen for testing. 02/04/18 03:38 Blood - Peripheral Aerobic Blood Culture - Preliminary No growth in 1 day 02/04/18 03:38 Blood - Peripheral Anaerobic Blood Culture - Preliminary No growth in 1 day 02/03/18 10:30 Stool Stool for WBCs - Final Rare WBC's 02/03/18 10:30 Stool Enteric Pathogens (PCR) - Pending 02/03/18 17:40 Blood - Peripheral Blood Fungal Culture - Pending 02/03/18 17:40 Blood - Peripheral Blood Fungal Culture - Pending 02/03/18 10:30 Stool Acid Fast Bacilli Smear - Pending 02/03/18 10:30 Stool Mycobacterial Culture - Pending Lab - Hematology Results 02/04/18 02/05/18 03:38 05:17 WBC 3.2 L 3.1 L RBC 3.68 L 3.76 L Hgb 9.6 L 9.7 L Hct 30.6 L 31.2 L MCV 83.1 83.0 MCH 26.2 L 25.9 L MCHC 31.6 L 31.2 L RDW 18.8 H 18.8 H Plt Count 152 136 L MPV 8.0 8.0 Lab - Chemistry Results 02/03/18 02/04/18 02/04/18 17:40 03:38 15:19 Sodium 141 Potassium 2.7 L* 2.8 L* 3.4 L Chloride 106 Carbon Dioxide 25.0 Anion Gap 10 BUN 34 H Creatinine 12.34 H* Estimated GFR 5 L POC Glucose Random Glucose 111 H Calcium 7.0 L* Prot Corrected Calcium 7.8 L Phosphorus 2.3 L Magnesium 1.5 Total Bilirubin 0.4 AST 15 ALT 9 L Alkaline Phosphatase 70 Total Protein 5.6 L Albumin 1.8 L 02/05/18 02/05/18 00:31 05:17 Sodium 145 Potassium 3.5 Chloride 112 H Carbon Dioxide 22.3 Anion Gap 11 BUN 29 H Creatinine 11.19 H* D Estimated GFR 6 L POC Glucose 117 H Random Glucose 84 Calcium 7.4 L* Prot Corrected Calcium 8.2 L Phosphorus 1.5 L Magnesium 1.6 Total Bilirubin 0.3 AST 30 ALT 10 L Alkaline Phosphatase 71 Total Protein 5.6 L Albumin 1.7 L Imaging: ITS Impressions Chest X-Ray 02/02/18 18:47 CONCLUSION: No evidence of acute cardiopulmonary disease. Head CT 02/02/18 19:49 CONCLUSION: 1. No acute intracranial abnormality demonstrated. 2. Mild chronic white matter changes. . Physical Exam: GENERAL: Well-nourished well-developed, not in acute distress SKIN: Cool and dry, no generalized rash. HEAD: Atraumatic. Normocephalic. No temporal or scalp tenderness. EYES: Pupils equal round and reactive. Scleral icterus. No injection or drainage. No petechia ENT: Nothing abnormal detected NECK: Trachea midline. Supple, nontender, no meningeal signs. CARDIOVASCULAR: HS audible. RESPIRATORY: Clear to auscultation bilaterally. GASTROINTESTINAL: Abdomen soft nontender. PD catheter insertion site with no evidence of infection. No guarding no rigidity. MUSCULOSKELETAL: Extremities without clubbing, cyanosis. NEUROLOGICAL: Alert oriented 3. Nonfocal. Psych cooperative IV line sites ok. Assessment and Plan - Plan Rule out sepsis due to hypotension. Suspect sepsis is probably from poor oral intake as well as ongoing losses from diarrhea. Oral thrush, possible Kayla esophagitis. Rule out herpetic esophagitis. Diarrhea: Gastroenteritis workup pending, age-related diarrheal illness causes need to be ruled out such as AFB, cryptosporidium, Giardia etc. HIV AIDS. Oral thrush is AIDS defining illness. Acute on chronic renal failure: Prerenal component, r/o HIV Nephropathy Hypokalemia likely secondary to poor oral intake as well as ongoing losses from diarrhea Questionable compliance with PT as well as HIV medications. Hypotension: Rule out sepsis, prerenal. Rule out disseminated Mycobacterium avium-intracellulare infection involving adrenal glands as a cause. Recs: One time dose of Pentamidine nebulizer one time dose if CD4 low will follow and decide. Opthalm consult for left eye vision loss ? CMV retinitis vs Toxo in pt with HIV/ AIDS. Continue oral azithro Continue Diflucan IV Appreciate GI assistance for EGD and Colonoscopy. Rule out Kayla and Herpetic esophagitis. Colonoscopy rule out PCP, CMV or AFB as cause for diarrhea. Follow CD4, Vl, GC, Chlamy, CMV PCR, RPR. Check HIV genotype. Patient had unprotected sex with his partner high risk for mutation as well as patient is noncompliant with HIV medication. Of note his partner is HIV positive as well. Stool studies for C. difficile, Giardia, cryptosporidium, AFB, gastroenteritis panel,E. histolytica. Check AFB blood cultures. Check fungal blood cultures. Follow cultures Follow clinical course
[2018-02-05] MEDS ORDERED: Potassium Phosphate Inj 15 MMOL in Sodium Chlor 0.9% Inj 150 ML IV.SIG ONE (15:00)
[2018-02-05] MEDS ORDERED: Phenylephrine/NS 1000 MCG/10ML Syringe IV.PUSH ONE (15:52)
[2018-02-05] MEDS ORDERED: Lidocaine PF 1% Inj 5 ML Syringe OTHER ONE (15:52)
[2018-02-05] MEDS ORDERED: Diatrizoate Meglum/Diatrizoate Sod Liq 9 ML UDC PO ONE (16:45)
--- NOTE | 2018-02-05 16:49 | P.PCN ---
Date of procedure: 02/05/18 Pre-op diagnosis: Diarrhea Procedure: PROCEDURE PERFORMED EGD with biopsies followed by colonoscopy with biopsies PROCEDURE: The procedure, risks and benefits were discussed with Patient/POA and informed consent was obtained. Anesthesia sedated Patient with Diprivan. Patient was placed in the left lateral decubitus position. EGD: The Pentax videoscope was introduced through the oropharynx and advanced to the second portion of the duodenum under direct visualization. Retroflexion was performed in the stomach. FINDINGS: The esophagus this appeared to be unremarkable with normal limits random biopsies were taken from the distal esophagus for history of dysphagia The stomach there is patchy erythema noted in the antrum of unclear significance no ulcerations and no erosions were seen the rest of the gastric mucosa was unremarkable antral biopsies were taken for further evaluation The duodenum I noted white patches and erythemic spots in the duodenum again of unclear significance no distinct ulcerations or erosions biopsies were taken from the duodenum for further evaluation Colonoscopy: The Pentax videoscope was introduced through the rectum and advanced to cecum where the ileocecal valve and appendiceal orifice were identified. Retroflexion was performed in the rectum. Colonic prep was fair FINDINGS: Colonic withdrawal time greater than 6 minutes. As the scope was slowly withdrawn colonic mucosa was carefully inspected colonic mucosa was noted to be unremarkable and within normal limits all the way through random biopsies were taken from the ascending colon descending colon for further evaluation retroflexion in the rectum patient was noted to have grade 2 internal hemorrhoids rectal examination otherwise unremarkable ESTIMATED BLOOD LOSS: None SPECIMENS REMOVED: Esophageal, gastric, duodenal, and colon biopsies COMPLICATIONS: None IMPRESSION: Gastritis Duodenitis Unremarkable colonoscopy except for internal hemorrhoids PLAN: Await biopsies We will obtain CT of the abdomen to further evaluate the intestines Etiology of diarrhea is unclear with no obvious infectious process in the gastrointestinal tract Consideration needs to be made for possibly renal failure related diarrhea Anesthesia: MAC Surgeon: Romulo Hernandez Condition: stable Disposition: floor
--- NOTE | 2018-02-05 17:45 | P.PNIM ---
Subjective Interval history: Reports diarrhea is better. No abdominal pain. Feels hungry. States he has had a itchy rash on the left side of his neck for the past 3 days. Physical Exam Vital signs: Last Vital Signs Temp 98 F 02/05/18 17:00 Pulse 80 02/05/18 17:00 Resp 16 02/05/18 17:00 BP 121/78 02/05/18 17:00 Pulse Ox 100 02/05/18 17:00 Intake & Output 02/03/18 02/04/18 02/05/18 02/06/18 06:59 06:59 06:59 06:59 Intake Total 300 / 300 2890 / 2890 5190 / 5190 700 / 700 Output Total 100 / 100 60 / 60 2503 / 2503 435 / 435 Balance 200 / 200 2830 / 2830 2687 / 2687 265 / 265 Weight 61.6 kg 65.2 kg Narrative: GENERAL: Well-nourished well-developed, male not in acute distress SKIN: Cool and dry, left macular oval lesions over the lateral neck NECK: Trachea midline. Supple, nontender, no meningeal signs. CARDIOVASCULAR: Regular rate and rhythm RESPIRATORY: Clear to auscultation bilaterally. GASTROINTESTINAL: Abdomen soft nontender. PD catheter insertion site with no evidence of infection. No guarding no rigidity. MUSCULOSKELETAL: Extremities without clubbing, cyanosis. NEUROLOGICAL: Alert oriented 3. Results Labs CBC & Chem 7: 02/05/18 05:17 02/05/18 05:17 Labs: Microbiology 02/03/18 10:30 Stool Cryptosporidium Antigen - Final Negative - No Cryptosporicium antigen detected In selected cases of patients with a history of immunosuppression or foreign travel, a full ova and parasites examination may be desired. Contact the microbiology lab if full workup is indicated and subit another specimen for testing. 02/03/18 10:30 Stool Giardia Antigen ([facility]) - Final Negative - No Giardia Antigen detected In selected cases of patients with a history of immunosuppression or foreign travel, a full ova and parasites examination may be desired. Contact the microbiology lab if full workup is indicated and subit another specimen for testing. 02/04/18 03:38 Blood - Peripheral Aerobic Blood Culture - Preliminary No growth in 1 day 02/04/18 03:38 Blood - Peripheral Anaerobic Blood Culture - Preliminary No growth in 1 day Assessment and Plan (1) ESRD on peritoneal dialysis: Code(s): N18.6 - End stage renal disease; Z99.2 - Dependence on renal dialysis Status: Acute (2) Diarrhea: Code(s): R19.7 - Diarrhea, unspecified Status: Acute (3) HIV (human immunodeficiency virus infection): Code(s): B20 - Human immunodeficiency virus [HIV] disease Status: Acute (4) Thrush: Code(s): B37.0 - Candidal stomatitis Status: Acute (5) Hypokalemia: Code(s): E87.6 - Hypokalemia Status: Acute Plan 52-year-old male with history of HIV and ESRD on PD admitted overnight with generalized weakness, decreased appetite, nausea, and vomiting found to have significant hypokalemia and acute on chronic renal failure. 1. ESRD on PD - acute on chronic - Patient follows with Dr. Shah - Creatinine back in February ~ and was 13.53 on admission -Likely secondary to decreased PO intake - Continue IV hydration with potassium supplement, watch for fluid overload - Nephrology following - Continue PD - Avoid nephrotoxic agents and renally dose meds 2. HIV - Last CD4 <20 on 03/09/17 - Noncompliant with f/u and taking antiretrovirals - Not on any prophylaxis. Started on Azithromycin but holding Bactrim secondary to his renal function - CD4 count and viral load pending - ID following 3. Hypokalemia - Improving - Possibly secondary to GI losses from diarrhea - Continue to replace and follow level closely - Mg WNL - Phosphorous low, start K-Phos - Monitor on tele 4. Diarrhea - Check stool studies, enteric pathogens currently pending - C. diff negative - GI following -EGD colonoscopy revealed gastritis, duodenitis and internal hemorrhoids Stools more formed, continue supportive care, IV fluid hydration 5. Anemia of chronic disease - Secondary to ESRD and HIV - Patient also having some bloody, mucous-like diarrhea which may be causing an acute anemia component -Hemoglobin stable 6. Thrush, odynophagia - Continue PO Diflucan add Magic mouthwash -Status post EGD with duodenitis and gastritis, start PPI 7. Possible contact dermatitis1% hydrocortisone cream DVT prophylaxis: heparin, Transfer out of the intensive care unit Progress Note: Quality VTE Deep Vein Thrombosis/Pulmonary Embolism Present on Admission: No _ (1) Diarrhea Qualifiers: Diarrhea type:
[2018-02-05] MEDS: Nystatin/Diphenhydramine/Lidocaine Mouthwash (Adult) 120 ML Botttle SWISH-SWAL SCH ×2 (19:55→22:02)
[2018-02-06] MEDS: Chlorhexidine Gluconate 2% 1 Pack (2 Cloths) TOPICAL SCH (04:31)
[2018-02-06 06:24] LABS: Hemoglobin 8.4 gm/dL (13.0-17.0); Mean Corpuscular HGB Conc 31.2 % (32.0-36.0); Mean Corpuscular Hemoglobin 26.1 pg (27.0-34.0); Mean Corpuscular Volume 83.8 fL (80.0-100.0); Mean Platelet Volume 8.1 fL (7.0-11.0); Platelet Count 109 th/mm3 (150-450); Red Blood Count 3.23 mil/mm3 (4.50-5.90); Red Cell Distribution Width 18.9 % (11.6-17.2)
[2018-02-06 07:03] LABS: Albumin 1.4 g/dL (3.4-5.0); Carbon Dioxide 21.6 meq/L (21.0-32.0); Magnesium 1.4 mg/dL (1.5-2.5); Phosphorus 1.7 mg/dL (2.5-4.9); Potassium 3.6 meq/L (3.5-5.1); Total Protein 4.7 g/dL (6.4-8.2)
[2018-02-06] MEDS: Potassium Phosphate 500 MG Soluble Tablet PO SCH (08:27)
[2018-02-06] MEDS: Senna/Docusate Sodium 8.6/50 MG Tablet PO SCH ×2 (08:27→21:34)
[2018-02-06] MEDS: Nystatin/Diphenhydramine/Lidocaine Mouthwash (Adult) 120 ML Botttle SWISH-SWAL SCH ×4 (08:31→21:33)
--- NOTE | 2018-02-06 09:00 | P.CON ---
History of Present Illness Service: Ophthalmology Reason for Consult: left eye vision loss Primary Care Provider: No Primary Care Physician History of Present Illness: 52-year-old male with HIV (CD4 <20 03/09/17) and ESRD on PD, presenting with generalized malaise and weakness and dizziness. Patient states he had loss of vision in his left eye last January (2016) - went to see an eye doctor in [place] who told him it was a retinal detachment and that no treatment could be done because he came in too late. No new visual complaints at this time. [facility] - History History Provided By: Patient - Medical History Medical History: Medical History (Last Reviewed 02/05/18 @ 08:15 by Geeta Mckeon Linux Systems Analyst, AUDIO VISUAL DIRECTOR) HIV (human immunodeficiency virus infection) Hypotension Renal failure - Tobacco History Second Hand Smoke Exposure: Yes Tobacco Use In Past 30 Days: No Smoking Status: Former smoker Tobacco Type: Cigarettes - Alcohol History How Often Do You Have a Drink Containing Alcohol: Never - Substance Use History Substance History: Unable to Obtain - Travel History Recent Travel in the [place] Within the Last 8 Weeks: No Recent Travel Out of the Country Within the Last 8 Weeks: No - Immunization History Tetanus Immunization: Unsure Medications and Allergies Active Medications: Active Medications Acetaminophen (Tylenol) 650 mg PO Q4H PRN PRN Reason: Temp > 100.4 Last Admin: 02/04/18 08:35 Dose: 650 mg Al Hydroxide/Mg Hydroxide (Milk Of Magntricia Liq) 30 ml PO Q12H PRN PRN Reason: Mild Constipation Azithromycin (Zithromax) 1,200 mg PO Q7D [facility] Last Admin: 02/03/18 09:00 Dose: 1,200 mg Bisacodyl (Dulcolax Supp) 10 mg RECTAL DAILY PRN PRN Reason: SEVERE CONSITIPATION Chlorhexidine Gluconate (Chlorhexidine 2% Cloth) 3 pack TOPICAL DAILY@0400 [facility] Stop: 02/08/18 03:59 Last Admin: 02/06/18 04:31 Dose: Not Given Chlorhexidine Gluconate (Chlorhexidine 2% Cloth) 3 pack TOPICAL DAILY@0400 PRN PRN Reason: Extra cloth needed Stop: 02/08/18 03:59 Heparin Sodium (Porcine) (Heparin Inj) 5,000 units SQ Q12HR [facility] Last Admin: 02/04/18 08:34 Dose: 5,000 units Hydrocortisone Acetate (Nutracort 1% Oint) 1 applicatio TOPICAL BID [facility] Last Admin: 02/06/18 08:33 Dose: 1 applicatio Fluconazole (Diflucan 100 Mg Premix Bag) 50 mls @ 50 mls/hr IV.SIG Q24H [facility] Last Infusion: 02/06/18 00:56 Dose: Infused Potassium Chloride/Sodium Chloride (Ns + Kcl 40 Meq Inj) 1,000 mls @ 100 mls/ hr IV.CONT .Q10H [facility] Last Infusion: 02/06/18 06:05 Dose: 75 mls/hr Lactulose (Lactulose Liq) 30 ml PO DAILY PRN PRN Reason: SEVERE CONSITIPATION Lidocaine HCl (Lidocaine 2% Viscous) 15 ml SWISH-SWAL Q4H PRN PRN Reason: SORE THROAT Miscellaneous Information ([facility]) 0 each OTHER UNSCH PRN PRN Reason: SEE LABEL COMMENTS Stop: 02/06/18 16:40 Multi-Ingredient Mouthwash/Gargle (Magic Mouthwash Adult Liq) 10 ml SWISH-SWAL QID [facility] Last Admin: 02/06/18 08:31 Dose: 10 ml Ondansetron HCl (Zofran Inj) 4 mg IV.PUSH Q6H PRN PRN Reason: NAUSEA OR VOMITING Last Admin: 02/03/18 09:12 Dose: 4 mg Pantoprazole Sodium (Protonix) 40 mg PO DAILY [facility] Last Admin: 02/06/18 08:27 Dose: 40 mg Potassium Phosphate (K-Phos Original) 500 mg PO DAILY [facility] Last Admin: 02/06/18 08:27 Dose: 500 mg Senna/Docusate Sodium (Dee-Colace) 1 tab PO BID [facility] Last Admin: 02/06/18 08:27 Dose: Not Given Sennosides (Senokot) 17.2 mg PO Q12H PRN PRN Reason: Moderate Constipation Allergies Allergy/AdvReac Type Severity Reaction Status Date / Time No Known Allergies Allergy Verified 02/02/18 13:58 Home Medications Medication Instructions Recorded Confirmed Type abacavir 300 mg PO DAILY 02/02/18 02/02/18 History amlodipine 10 mg PO DAILY 02/02/18 02/02/18 History azithromycin 500 mg PO DAILY 02/02/18 02/02/18 History calcium acetate 667 mg PO TID 02/02/18 02/02/18 History dolutegravir [Tivicay] 50 mg PO DAILY 02/02/18 02/02/18 History ethambutol 800 mg PO DAILY 02/02/18 02/02/18 History fluconazole 100 mg PO DAILY 02/02/18 02/02/18 History labetalol 200 mg PO BID 02/02/18 02/02/18 History lisinopril 5 mg PO DAILY 02/02/18 02/02/18 History nystatin 1 ml PO QID 02/02/18 02/02/18 History rifabutin 300 mg PO DAILY 02/02/18 02/02/18 History Physical Exam Vital signs: Vital Signs 02/05/18 09:00 02/05/18 12:19 02/05/18 16:39 Temperature 97.8 F Pulse Rate 98 H 82 Respiratory Rate 22 Blood Pressure 104/66 Pulse Oximetry 100 100 02/05/18 16:45 02/05/18 16:55 02/05/18 17:00 Temperature 98 F Pulse Rate 81 80 Respiratory Rate 22 16 Blood Pressure 102/66 121/78 Pulse Oximetry 99 100 100 02/05/18 23:33 02/06/18 00:00 02/06/18 04:00 Temperature 99.0 F 100.1 F H Pulse Rate 91 H 108 H 112 H Respiratory Rate 18 16 Blood Pressure 158/95 H 123/85 Pulse Oximetry 100 99 02/06/18 06:32 Temperature Pulse Rate 92 H Respiratory Rate Blood Pressure Pulse Oximetry Intake & Output 02/05/18 02/06/18 02/06/18 18:59 06:59 18:59 Intake Total 1700 / 1700 1490 / 1490 Output Total 435 / 435 0 / 0 Balance 1265 / 1265 1490 / 1490 Weight 68 kg Intake: IV 1100 / 1100 650 / 650 NS + KCl 40 mEq Inj 1,000 ML @ 1000 / 1000 445 / 445 100 mls/hr IV.CONT .Q10H [facility] Rx #:[id number] Diflucan 100 mg Premix Bag 50 50 / 50 ML @ 50 mls/hr IV.SIG Q24H [facility] Rx#:[id number] Potassium Phosphate Inj 15 MMOL 155 / 155 In NS Inj 150 ML @ 38.75 mls/ hr IV.SIG ONCE ONE Rx#:[id number] Oral 240 / 240 Anesthesia Amount 600 / 600 600 / 600 Output: Urine 0 / 0 Peritoneal Amount 435 / 435 Other: # Voids 1 Date of Last Bowel Movement 02/05/18 02/06/18 # Bowel Movements 1 # Incontinent Bowel Movements 1 - Detailed Eye Exam Comments: Va cc at near OD 20/20, OS NLP EOM full OU, no diplopia CVF full OD, unable OS Pupils 2-1, mild APD OS IOP normal to palpation OU Anterior exam OD - normal eyelid, C/S W&Q, K clear, AC deep, pupil round, lens clear OS - normal eyelid, C/S W&Q, K clear, AC deep, pupil round, lens clear Dilated exam OD - ON s/p/f, ves normal, vit clear, retina flat OS - total retinal detachment with PVR Results - Labs CBC & Chem 7: 02/06/18 05:28 02/06/18 05:28 Labs: Laboratory Results - last 24 hr 02/04/18 02/06/18 02/06/18 03:38 05:28 05:28 WBC 3.0 L RBC 3.23 L Hgb 8.4 L Hct 27.0 L MCV 83.8 MCH 26.1 L MCHC 31.2 L RDW 18.9 H Plt Count 109 L MPV 8.1 Sodium 144 Potassium 3.6 Chloride 113 H Carbon Dioxide 21.6 Anion Gap 9 BUN 29 H Creatinine 10.86 H* Estimated GFR 6 L Random Glucose 96 Calcium 7.0 L* Prot Corrected Calcium 8.3 L Phosphorus 1.7 L Magnesium 1.4 L Total Bilirubin 0.3 AST 43 H ALT 10 L Alkaline Phosphatase 64 Total Protein 4.7 L D Albumin 1.4 L RPR Nonreactive Assessment and Plan - Assessment (1) Total retinal detachment, left eye Code(s): H33.052 - Total retinal detachment, left eye Status: Acute Plan: Retinal detachment in left eye has been present for over a year. Saw an splitting machine operator helper last year who said surgery would not be beneficial. No HIV retinopathy present in right eye.
--- NOTE | 2018-02-06 11:24 | P.PNGI ---
Subjective Interval history: Resting in the bed appears to be feeling much better. Denies any abdominal pain nausea or vomiting Tolerating renal cardiac diet well Physical Exam Vital signs: Vital Signs 02/05/18 12:19 02/05/18 16:39 02/05/18 16:45 Temperature 97.8 F Pulse Rate 82 81 Respiratory Rate 22 22 Blood Pressure 104/66 102/66 Pulse Oximetry 100 100 99 02/05/18 16:55 02/05/18 17:00 02/05/18 23:33 Temperature 98 F 99.0 F Pulse Rate 80 91 H Respiratory Rate 16 18 Blood Pressure 121/78 158/95 H Pulse Oximetry 100 100 100 02/06/18 00:00 02/06/18 04:00 02/06/18 06:32 Temperature 100.1 F H Pulse Rate 108 H 112 H 92 H Respiratory Rate 16 Blood Pressure 123/85 Pulse Oximetry 99 02/06/18 08:00 Temperature 98.4 F Pulse Rate 87 Respiratory Rate 18 Blood Pressure 130/86 Pulse Oximetry 99 Intake & Output 02/05/18 02/06/18 02/06/18 18:59 06:59 18:59 Intake Total 1700 / 1700 1490 / 1490 Output Total 435 / 435 0 / 0 Balance 1265 / 1265 1490 / 1490 Weight 68 kg Intake: IV 1100 / 1100 650 / 650 NS + KCl 40 mEq Inj 1,000 ML @ 1000 / 1000 445 / 445 100 mls/hr IV.CONT .Q10H [facility] Rx #:[id number] Diflucan 100 mg Premix Bag 50 50 / 50 ML @ 50 mls/hr IV.SIG Q24H [facility] Rx#:[id number] Potassium Phosphate Inj 15 MMOL 155 / 155 In NS Inj 150 ML @ 38.75 mls/ hr IV.SIG ONCE ONE Rx#:[id number] Oral 240 / 240 Anesthesia Amount 600 / 600 600 / 600 Output: Urine 0 / 0 Peritoneal Amount 435 / 435 Other: # Voids 1 Date of Last Bowel Movement 02/05/18 02/06/18 # Bowel Movements 1 # Incontinent Bowel Movements 1 - Constitutional no acute distress, thin, cooperative - Routine HEENT Exam Head: Present: normocephalic ENT: Present: mucous membranes dry - Routine Respiratory Exam Present: accessory muscle use (No shortness of breath at rest) - Routine Cardiovascular Exam Present: S1, S2 - Routine Abdominal Exam Present: soft (Flat, soft bowel sounds, no obvious tenderness or distention) - Routine Skin Exam Present: dry Results - Labs CBC & Chem 7: 02/06/18 05:28 02/06/18 05:28 Laboratory Results - last 24 hr 02/06/18 02/06/18 05:28 05:28 WBC 3.0 L RBC 3.23 L Hgb 8.4 L Hct 27.0 L MCV 83.8 MCH 26.1 L MCHC 31.2 L RDW 18.9 H Plt Count 109 L MPV 8.1 Sodium 144 Potassium 3.6 Chloride 113 H Carbon Dioxide 21.6 Anion Gap 9 BUN 29 H Creatinine 10.86 H* Estimated GFR 6 L Random Glucose 96 Calcium 7.0 L* Prot Corrected Calcium 8.3 L Phosphorus 1.7 L Magnesium 1.4 L Total Bilirubin 0.3 AST 43 H ALT 10 L Alkaline Phosphatase 64 Total Protein 4.7 L D Albumin 1.4 L Microbiology 02/04/18 03:38 Blood - Peripheral Aerobic Blood Culture - Preliminary No growth in 2 days 02/04/18 03:38 Blood - Peripheral Anaerobic Blood Culture - Preliminary No growth in 2 days 02/03/18 10:30 Stool Enteric Pathogens (PCR) - Final No enteric pathogens detected by PCR (No Salmonella sp., Shigella sp., Campylobacter sp., Yersinia enterocolitica, Vibrio sp., Norovirus, or EHEC (Shiga Toxin 1 or Shiga Toxin 2) detected. 02/03/18 10:30 Stool Cryptosporidium Antigen - Final Negative - No Cryptosporicium antigen detected In selected cases of patients with a history of immunosuppression or foreign travel, a full ova and parasites examination may be desired. Contact the microbiology lab if full workup is indicated and subit another specimen for testing. 02/03/18 10:30 Stool Giardia Antigen (PAUL) - Final Negative - No Giardia Antigen detected In selected cases of patients with a history of immunosuppression or foreign travel, a full ova and parasites examination may be desired. Contact the microbiology lab if full workup is indicated and subit another specimen for testing. Assessment and Plan - Plan Dysphasia, oral thrush noted on admission which could be related to Kayla esophagitis, anorexia approximately 2 weeks, which could be related to Kayla/ dysphasia Diarrhea stools Generalized weakness and fatigue history of HIV since the age of 23, currently being worked up per I&D who recommends EGD and colonoscopy to rule out Kayla esophagitis. Request for colonoscopy to rule out PCP, CM V or AFB as cause for diarrhea. Enterovirus stool sample pending History of acute on chronic renal failure 02/04/2018 patient appears to be feeling better today and more alert. Still has some mild dysphasia in the back of the throat but still could be related to Kayla. Tolerating clear liquids without nausea or vomiting. Discussed in length again today EGD and colonoscopy and answered any questions. Labs reviewed current hemoglobin 9.6, WBC count 3.2,. Loose diarrheal stools show gradual improvement with softer consistency less watery. 02/06/2018 patient is status post EGD colonoscopy on 02/05/[address] Hernandez , findings include Gastritis, Duodenitis Unremarkable colonoscopy except for internal hemorrhoids Causes for diarrhea unclear but no obvious infection noted in the GI tract. Total [address] scan is pending evaluation for any other causes of diarrhea, stool studies negative so far. If CT scan is negative or non-GI related we can follow in the office after biopsies are back. End-stage renal disease patient uses peritoneal dialysis every evening Labs reviewed current hemoglobin 8.4 WBC count 3. Chronic anemia probably related to end-stage renal disease PLAN Diet as tolerated Await biopsies PPI Bowel regimen Monitor labs Intake and output close measurements for number of diarrhea stools Supportive care Patient was seen per myself and Dr. Dowling, note was written on his behalf
--- NOTE | 2018-02-06 14:59 | P.PNNP ---
Subjective Interval history: Seen in AM. No shortness of breath, nausea, vomiting or diarrhea. IVF infusing. <AmandatoniaRosalva irenene - Last Filed: 02/06/18 14:49> Physical Exam Vital signs: Vital Signs 02/05/18 16:39 02/05/18 16:45 02/05/18 16:55 Temperature 97.8 F Pulse Rate 82 81 Respiratory Rate 22 22 Blood Pressure 104/66 102/66 Pulse Oximetry 100 99 100 02/05/18 17:00 02/05/18 23:33 02/06/18 00:00 Temperature 98 F 99.0 F Pulse Rate 80 91 H 108 H Respiratory Rate 16 18 Blood Pressure 121/78 158/95 H Pulse Oximetry 100 100 02/06/18 04:00 02/06/18 06:32 02/06/18 08:00 Temperature 100.1 F H 98.4 F Pulse Rate 112 H 92 H 87 Respiratory Rate 16 18 Blood Pressure 123/85 130/86 Pulse Oximetry 99 99 02/06/18 12:00 Temperature 98.6 F Pulse Rate 94 H Respiratory Rate 16 Blood Pressure 126/82 Pulse Oximetry 98 Intake & Output 02/05/18 02/06/18 02/06/18 18:59 06:59 18:59 Intake Total 1700 / 1700 1490 / 1490 Output Total 435 / 435 0 / 0 Balance 1265 / 1265 1490 / 1490 Weight 68 kg Intake: IV 1100 / 1100 650 / 650 NS + KCl 40 mEq Inj 1,000 ML @ 1000 / 1000 445 / 445 100 mls/hr IV.CONT .Q10H [facility] Rx #:[id number] Diflucan 100 mg Premix Bag 50 50 / 50 ML @ 50 mls/hr IV.SIG Q24H [facility] Rx#:[id number] Potassium Phosphate Inj 15 MMOL 155 / 155 In NS Inj 150 ML @ 38.75 mls/ hr IV.SIG ONCE ONE Rx#:[id number] Oral 240 / 240 Anesthesia Amount 600 / 600 600 / 600 Output: Urine 0 / 0 Peritoneal Amount 435 / 435 Other: # Voids 1 Date of Last Bowel Movement 02/05/18 02/06/18 # Bowel Movements 1 # Incontinent Bowel Movements 1 Narrative: GENERAL: Well-nourished well-developed, male not in acute distress SKIN: Cool and dry. NECK: Trachea midline. Supple and nontender. CARDIOVASCULAR: Regular rate and rhythm RESPIRATORY: Clear to auscultation bilaterally. GASTROINTESTINAL: Abdomen soft nontender. PD catheter insertion site with no evidence of infection. No guarding no rigidity. MUSCULOSKELETAL: Extremities without clubbing, cyanosis. NEUROLOGICAL: Alert oriented 3. <Karolyn Jolly - Last Filed: 02/06/18 14:49> Vital signs: Vital Signs 02/07/18 12:00 02/07/18 16:00 02/07/18 16:54 Temperature 98.6 F 99.0 F Pulse Rate 90 86 86 Respiratory Rate 18 18 Blood Pressure 124/98 H 130/86 Pulse Oximetry 98 97 02/07/18 19:25 02/07/18 20:00 02/07/18 23:29 Temperature 99.7 F H 98.5 F Pulse Rate 98 H 100 H 89 Respiratory Rate 18 16 Blood Pressure 120/82 117/82 Pulse Oximetry 98 100 02/08/18 00:00 02/08/18 04:00 02/08/18 08:00 Temperature 98.2 F 100.3 F H Pulse Rate 81 80 79 Respiratory Rate 18 17 Blood Pressure 113/81 137/93 H Pulse Oximetry 100 99 Intake & Output 02/07/18 02/08/18 02/08/18 18:59 06:59 18:59 Intake Total 500 / 500 492 / 492 Output Total 75 / 75 150 / 150 Balance 425 / 425 342 / 342 Weight 63.6 kg Intake: IV 50 / 50 Diflucan 100 mg Premix Bag 50 50 / 50 ML @ 50 mls/hr IV.SIG Q24H [facility] Rx#:[id number] Oral 500 / 500 442 / 442 Output: Urine 75 / 75 150 / 150 Other: # Bowel Movements 2 <Leonides Shah - Last Filed: 02/08/18 11:32> Assessment and Plan - Assessment (1) ESRD on peritoneal dialysis Code(s): N18.6 - End stage renal disease; Z99.2 - Dependence on renal dialysis Status: Acute Plan: Disconnected PD catheter last night without masks, will give prophylaxis vancomycin and fortaz 1 gram IP with PD tonight. IVFs discontinued, will monitor volume status. PO4 low will order IV K phos Magnesium level low replacement ordered. Continue APD nightly (2) Diarrhea Code(s): R19.7 - Diarrhea, unspecified Status: Acute Plan: Follow with GI, ID. Reports improvement in diarrhea. (3) HIV (human immunodeficiency virus infection) Code(s): B20 - Human immunodeficiency virus [HIV] disease Status: Acute Plan: non-compliance, follow with ID (4) Thrush Code(s): B37.0 - Candidal stomatitis Status: Acute (5) Hypokalemia Code(s): E87.6 - Hypokalemia Status: Acute Plan: Due to poor PO intake, GI losses The patient presented with significant hypokalemia with a potassium of 1.9 at the time of admission. Continue potassium supplementation IVF discontinued. - Plan ti <Karolyn Jolly - Last Filed: 02/06/18 14:49> - Assessment (1) ESRD on peritoneal dialysis Code(s): N18.6 - End stage renal disease; Z99.2 - Dependence on renal dialysis Status: Acute Plan: Patient seen and examined, agree with above. Has PD disconnected last night with possible contamination. Give prophylaxis antibiotics. K is better, encourage oral intake. (2) Diarrhea Code(s): R19.7 - Diarrhea, unspecified Status: Acute (3) HIV (human immunodeficiency virus infection) Code(s): B20 - Human immunodeficiency virus [HIV] disease Status: Acute (4) Thrush Code(s): B37.0 - Candidal stomatitis Status: Acute (5) Hypokalemia Code(s): E87.6 - Hypokalemia Status: Acute <Leonides Shah - Last Filed: 02/08/18 11:32>
[2018-02-06] MEDS ORDERED: Magnesium Sulfate Inj 2 GM in Sodium Chlor 0.9% Inj 96 ML IV.SIG ONE (15:00)
[2018-02-06] MEDS ORDERED: CEFTAZIDIME 1000 MG I-PERITONL ONE (15:30)
--- NOTE | 2018-02-06 15:44 | P.PNIM ---
Subjective Interval history: Patient says he is feeling all right. Denies any chest pain or shortness of breath. Denies any abdominal pain. Reports some loose stools, but denies ulysses diarrhea Physical Exam Vital signs: Vital Signs 02/05/18 16:39 02/05/18 16:45 02/05/18 16:55 Temperature 97.8 F Pulse Rate 82 81 Respiratory Rate 22 22 Blood Pressure 104/66 102/66 Pulse Oximetry 100 99 100 02/05/18 17:00 02/05/18 23:33 02/06/18 00:00 Temperature 98 F 99.0 F Pulse Rate 80 91 H 108 H Respiratory Rate 16 18 Blood Pressure 121/78 158/95 H Pulse Oximetry 100 100 02/06/18 04:00 02/06/18 06:32 02/06/18 08:00 Temperature 100.1 F H 98.4 F Pulse Rate 112 H 92 H 87 Respiratory Rate 16 18 Blood Pressure 123/85 130/86 Pulse Oximetry 99 99 02/06/18 12:00 Temperature 98.6 F Pulse Rate 94 H Respiratory Rate 16 Blood Pressure 126/82 Pulse Oximetry 98 Intake & Output 02/05/18 02/06/18 02/06/18 18:59 06:59 18:59 Intake Total 1700 / 1700 1490 / 1490 Output Total 435 / 435 0 / 0 Balance 1265 / 1265 1490 / 1490 Weight 68 kg Intake: IV 1100 / 1100 650 / 650 NS + KCl 40 mEq Inj 1,000 ML @ 1000 / 1000 445 / 445 100 mls/hr IV.CONT .Q10H [facility] Rx #:[id number] Diflucan 100 mg Premix Bag 50 50 / 50 ML @ 50 mls/hr IV.SIG Q24H [facility] Rx#:[id number] Potassium Phosphate Inj 15 MMOL 155 / 155 In NS Inj 150 ML @ 38.75 mls/ hr IV.SIG ONCE ONE Rx#:[id number] Oral 240 / 240 Anesthesia Amount 600 / 600 600 / 600 Output: Urine 0 / 0 Peritoneal Amount 435 / 435 Other: # Voids 1 Date of Last Bowel Movement 02/05/18 02/06/18 # Bowel Movements 1 # Incontinent Bowel Movements 1 Narrative: GENERAL: Patient lying in bed. Appears comfortable. SKIN: Warm and dry. HEAD: Normocephalic. EYES: No scleral icterus. No injection or drainage. NECK: Supple, trachea midline. No JVD. CARDIOVASCULAR: Regular rate and rhythm without murmurs, gallops, or rubs. RESPIRATORY: Breath sounds equal bilaterally. No accessory muscle use. GASTROINTESTINAL: Abdomen soft, non-tender, nondistended. MUSCULOSKELETAL: No cyanosis, or edema. BACK: Nontender without obvious deformity. No CVA tenderness. Results - Labs CBC & Chem 7: 02/06/18 05:28 02/06/18 05:28 Laboratory Results - last 24 hr 02/06/18 02/06/18 05:28 05:28 WBC 3.0 L RBC 3.23 L Hgb 8.4 L Hct 27.0 L MCV 83.8 MCH 26.1 L MCHC 31.2 L RDW 18.9 H Plt Count 109 L MPV 8.1 Sodium 144 Potassium 3.6 Chloride 113 H Carbon Dioxide 21.6 Anion Gap 9 BUN 29 H Creatinine 10.86 H* Estimated GFR 6 L Random Glucose 96 Calcium 7.0 L* Prot Corrected Calcium 8.3 L Phosphorus 1.7 L Magnesium 1.4 L Total Bilirubin 0.3 AST 43 H ALT 10 L Alkaline Phosphatase 64 Total Protein 4.7 L D Albumin 1.4 L Microbiology 02/03/18 10:30 Stool Acid Fast Bacilli Smear - Final Acid Fast Bacilli Seen 02/03/18 10:30 Stool Mycobacterial Culture - Preliminary 02/04/18 03:38 Blood - Peripheral Aerobic Blood Culture - Preliminary No growth in 2 days 02/04/18 03:38 Blood - Peripheral Anaerobic Blood Culture - Preliminary No growth in 2 days 02/03/18 10:30 Stool Enteric Pathogens (PCR) - Final No enteric pathogens detected by PCR (No Salmonella sp., Shigella sp., Campylobacter sp., Yersinia enterocolitica, Vibrio sp., Norovirus, or EHEC (Shiga Toxin 1 or Shiga Toxin 2) detected. 02/03/18 10:30 Stool Cryptosporidium Antigen - Final Negative - No Cryptosporicium antigen detected In selected cases of patients with a history of immunosuppression or foreign travel, a full ova and parasites examination may be desired. Contact the microbiology lab if full workup is indicated and subit another specimen for testing. 02/03/18 10:30 Stool Giardia Antigen (PAUL) - Final Negative - No Giardia Antigen detected In selected cases of patients with a history of immunosuppression or foreign travel, a full ova and parasites examination may be desired. Contact the microbiology lab if full workup is indicated and subit another specimen for testing. Assessment and Plan - Assessment (1) ESRD on peritoneal dialysis Code(s): N18.6 - End stage renal disease; Z99.2 - Dependence on renal dialysis Status: Acute (2) Diarrhea Code(s): R19.7 - Diarrhea, unspecified Status: Acute (3) HIV (human immunodeficiency virus infection) Code(s): B20 - Human immunodeficiency virus [HIV] disease Status: Acute (4) Thrush Code(s): B37.0 - Candidal stomatitis Status: Acute (5) Hypokalemia Code(s): E87.6 - Hypokalemia Status: Acute - Plan 52-year-old male with history of HIV and ESRD on PD admitted overnight with generalized weakness, decreased appetite, nausea, and vomiting found to have significant hypokalemia and acute on chronic renal failure. // ESRD on PD - acute on chronic - Patient follows with Dr. Shah - Creatinine back in February and was 13.53 on admission -Likely secondary to decreased PO intake - Continue IV hydration with potassium supplement, watch for fluid overload - Nephrology following - Continue PD - Avoid nephrotoxic agents and renally dose meds //HIV - Last CD4 <20 on 03/09/17 - Noncompliant with f/u and taking antiretrovirals - Not on any prophylaxis. Started on Azithromycin but holding Bactrim secondary to his renal function - CD4 count and viral load pending - ID following //Suspected disseminated LULU Positive AFB of stool. ID notified. Appreciate assistance. // Hypokalemia - Improving - Possibly secondary to GI losses from diarrhea - Continue to replace and follow level closely - Mg WNL - Phosphorous low, start K-Phos - Monitor on tele // Diarrhea //Suspected disseminated LULU. - Check stool studies, enteric pathogens currently pending - C. diff negative - GI following -EGD colonoscopy revealed gastritis, duodenitis and internal hemorrhoids Stools more formed, continue supportive care, IV fluid hydration -ID following. Appreciate assistance. // Anemia of chronic disease - Secondary to ESRD and HIV - Patient also having some bloody, mucous-like diarrhea which may be causing an acute anemia component -Hemoglobin stable // Thrush, odynophagia - Continue PO Diflucan add Magic mouthwash -Status post EGD with duodenitis and gastritis, start PPI //Possible contact dermatitis1% hydrocortisone cream DVT prophylaxis: heparin, Discussed Condition With: Patient, nurse, ID Discharge Planning: Home when cleared by nephrology and ID.
[2018-02-06] MEDS ORDERED: Potassium Phosphate Inj 30 MMOL in Sodium Chlor 0.9% Inj 250 ML IV.SIG ONE (16:00)
[2018-02-07] MEDS: Chlorhexidine Gluconate 2% 1 Pack (2 Cloths) TOPICAL SCH (03:18)
[2018-02-07 07:16] LABS: Baso % (Auto) 1.3 % (0.0-2.0); Eos # (Auto) 0.1 th/mm3 (0.0-0.4); Eos % (Auto) 2.8 % (0.0-4.0); Hemoglobin 8.4 gm/dL (13.0-17.0); Lymph # (Auto) 0.2 th/mm3 (1.0-4.8); Lymph % (Auto) 6.7 % (9.0-44.0); Mean Corpuscular HGB Conc 32.4 % (32.0-36.0); Mean Corpuscular Hemoglobin 26.3 pg (27.0-34.0); Mean Corpuscular Volume 81.4 fL (80.0-100.0); Mean Platelet Volume 8.4 fL (7.0-11.0); Mono # (Auto) 0.3 th/mm3 (0.0-0.9); Mono % (Auto) 11.2 % (0.0-8.0); Neut # (Auto) 1.9 th/mm3 (1.8-7.7); Platelet Count 100 th/mm3 (150-450); Red Blood Count 3.19 mil/mm3 (4.50-5.90); Red Cell Distribution Width 19.1 % (11.6-17.2); White Blood Count 2.4 th/mm3 (4.0-11.0)
[2018-02-07 08:03] LABS: Albumin 1.4 g/dL (3.4-5.0); Calcium 6.6 mg/dL (8.5-10.1); Carbon Dioxide 22.2 meq/L (21.0-32.0); Magnesium 1.7 mg/dL (1.5-2.5); Phosphorus 3.2 mg/dL (2.5-4.9); Potassium 3.4 meq/L (3.5-5.1); Total Protein 4.8 g/dL (6.4-8.2)
[2018-02-07 08:09] LABS: Eosinophils 1 % (0-4); Lymphocytes 7 % (9-44); Monocytes 7 % (0-8)
[2018-02-07 08:10] LABS: Toxic Granulation 1+
[2018-02-07] MEDS: Potassium Phosphate 500 MG Soluble Tablet PO SCH (09:32)
[2018-02-07] MEDS: Nystatin/Diphenhydramine/Lidocaine Mouthwash (Adult) 120 ML Botttle SWISH-SWAL SCH ×4 (09:33→20:55)
[2018-02-07] MEDS: Senna/Docusate Sodium 8.6/50 MG Tablet PO SCH ×2 (09:33→21:02)
--- NOTE | 2018-02-07 11:37 | P.PNNP ---
Subjective Interval history: No Acute complaints. PD nightly, tolerating well. Reports pruritus. <Karolyn Jolly - Last Filed: 02/07/18 17:22> Physical Exam Vital signs: Vital Signs 02/06/18 12:00 02/06/18 16:00 02/06/18 20:00 Temperature 98.6 F 99.2 F 99.9 F H Pulse Rate 85 102 H 100 H Respiratory Rate 16 18 17 Blood Pressure 126/82 120/78 112/70 Pulse Oximetry 98 100 99 02/06/18 23:55 02/07/18 00:00 02/07/18 04:00 Temperature 98.5 F Pulse Rate 90 90 107 H Respiratory Rate 18 Blood Pressure 137/64 Pulse Oximetry 99 02/07/18 08:00 Temperature 98.4 F Pulse Rate 100 H Respiratory Rate 18 Blood Pressure 122/76 Pulse Oximetry 98 Intake & Output 02/06/18 02/07/18 02/07/18 18:59 06:59 18:59 Intake Total 915 / 915 1065 / 1065 Output Total 50 / 50 Balance 865 / 865 1065 / 1065 Weight 68.2 kg Intake: IV 555 / 555 410 / 410 NS + KCl 40 mEq Inj 1,000 ML @ 555 / 555 100 mls/hr IV.CONT .Q10H [facility] Rx #:[id number] Diflucan 100 mg Premix Bag 50 50 / 50 ML @ 50 mls/hr IV.SIG Q24H [facility] Rx#:[id number] Magnesium Sulfate Inj 2 GM In 100 / 100 NS Inj 96 ML @ 50 mls/hr IV.SIG ONCE ONE Rx#:[id number] Potassium Phosphate Inj 30 MMOL 260 / 260 In NS Inj 250 ML @ 43.333 mls/ hr IV.SIG ONCE ONE Rx#:[id number] Oral 360 / 360 Other 655 / 655 Output: Urine 50 / 50 Other: # Voids 1 Date of Last Bowel Movement 02/07/18 # Bowel Movements 0 1 Narrative: GENERAL: Up out of bed in chair. Alert and oriented X 3. SKIN: Warm and dry. NECK: Supple, trachea midline. No JVD. CARDIOVASCULAR: Regular rate and rhythm without murmurs, gallops, or rubs. RESPIRATORY: Breath sounds equal bilaterally. No accessory muscle use. GASTROINTESTINAL: Abdomen soft, non-tender, nondistended. PD catheter dressing on. MUSCULOSKELETAL: No cyanosis, or edema. BACK: Nontender without obvious deformity. No CVA tenderness. <Karolyn Jolly - Last Filed: 02/07/18 17:22> Vital signs: Vital Signs 02/07/18 12:00 02/07/18 16:00 02/07/18 16:54 Temperature 98.6 F 99.0 F Pulse Rate 90 86 86 Respiratory Rate 18 18 Blood Pressure 124/98 H 130/86 Pulse Oximetry 98 97 02/07/18 19:25 02/07/18 20:00 02/07/18 23:29 Temperature 99.7 F H 98.5 F Pulse Rate 98 H 100 H 89 Respiratory Rate 18 16 Blood Pressure 120/82 117/82 Pulse Oximetry 98 100 02/08/18 00:00 02/08/18 04:00 02/08/18 08:00 Temperature 98.2 F 100.3 F H Pulse Rate 81 80 79 Respiratory Rate 18 17 Blood Pressure 113/81 137/93 H Pulse Oximetry 100 99 Intake & Output 02/07/18 02/08/18 02/08/18 18:59 06:59 18:59 Intake Total 500 / 500 492 / 492 Output Total 75 / 75 150 / 150 Balance 425 / 425 342 / 342 Weight 63.6 kg Intake: IV 50 / 50 Diflucan 100 mg Premix Bag 50 50 / 50 ML @ 50 mls/hr IV.SIG Q24H [facility] Rx#:[id number] Oral 500 / 500 442 / 442 Output: Urine 75 / 75 150 / 150 Other: # Bowel Movements 2 <Leonides Shah - Last Filed: 02/08/18 11:54> Assessment and Plan - Assessment (1) ESRD on peritoneal dialysis Code(s): N18.6 - End stage renal disease; Z99.2 - Dependence on renal dialysis Status: Acute Plan: Continue APD nightly, tolerating well Reports pruritus, Eucerin cream ordered. Hypokalemia at 3.4, replacement ordered. (2) Diarrhea Code(s): R19.7 - Diarrhea, unspecified Status: Acute Plan: Follow with GI, ID. Reports improvement in diarrhea. (3) HIV (human immunodeficiency virus infection) Code(s): B20 - Human immunodeficiency virus [HIV] disease Status: Acute Plan: non-compliance, follow with ID (4) Thrush Code(s): B37.0 - Candidal stomatitis Status: Acute (5) Hypokalemia Code(s): E87.6 - Hypokalemia Status: Acute Plan: Due to poor PO intake, GI losses The patient presented with significant hypokalemia with a potassium of 1.9 at the time of admission. Continue potassium supplementation as needed, improving. <Karolyn Jolly - Last Filed: 02/07/18 17:22> - Assessment (1) ESRD on peritoneal dialysis Code(s): N18.6 - End stage renal disease; Z99.2 - Dependence on renal dialysis Status: Acute Plan: Patient seen and examined, agree with above. K is still low, encourage oral intake. Continue Diflucan, continue PD. (2) Diarrhea Code(s): R19.7 - Diarrhea, unspecified Status: Acute (3) HIV (human immunodeficiency virus infection) Code(s): B20 - Human immunodeficiency virus [HIV] disease Status: Acute (4) Thrush Code(s): B37.0 - Candidal stomatitis Status: Acute (5) Hypokalemia Code(s): E87.6 - Hypokalemia Status: Acute <Leonides Shah - Last Filed: 02/08/18 11:54>
--- NOTE | 2018-02-07 14:30 | P.PNID ---
Subjective Remarks: is a 52-year-old -[place] past medical history significant for HIV diagnosed when he was 23 years old. Patient reports that he used to see RADHA Leslie at Dr. Paul office for his HIV care. He reports that the last time he saw her was approximately 2 years back. When asked patient did not know his most recent CD4 count or viral load. He did not know his current HIV medication regimen. When questioned who was prescribing his HIV medication he replied that it may have been either Dr. Paul office or 's office. The last known CD4 count for the patient is less than 2 and this was approximately a year back. Patient also is on peritoneal dialysis for his end- stage renal disease and follows up with . Patient reports that approximately 2 weeks back he started developing diarrhea with no blood. He denies any black tarry stools or fresh blood per rectum. He initially did not have any nausea or vomiting subsequently reports having developed nausea. Approximately 4 days prior to admission patient lost his appetite had nausea and may be some difficulty swallowing. Patient reports that when he presented to the emergency department he was questioned about white patches on his tongue and was told that it was oral thrush. He thinks it is the first time he has been told he has oral thrush. He denies any prior admissions for AIDS defining illnesses. He does not remember being on any prophylactic regimen for prevention of infections. At baseline patient is able to wake up in the morning drive his car and go to get some breakfast as well as lunch and stay at the mall for several hours. He thinks he may be depressed because after getting home he pretty much stays in his so far all day. He reports that he has a partner who lives in [place] but they are not sexually active for the last 6 months. With this background patient presents to the emergency department at [facility] with complaints of generalized weakness, dizziness decreased appetite for approximately 2 weeks. Due to worsening symptoms of nausea and inability to stand due to extreme weakness he presented to the emergency department. He denies any fevers chills night sweats. He denies any other systemic symptoms. He undergoes peritoneal dialysis every night and denies any abdominal pain or discharge from the PD catheter site. On arrival to the emergency department his blood pressure was 92 x 52 his heart rate was 117 his O2 sats were 98% on room air and he had a temperature of 99.6. Since admission he has had no fevers. He has been receiving IV fluids but is not on any pressors. Patient's creatinine was found to be 13.53 and his potassium was 1.9 and therefore patient is admitted to the intensive care unit. At the present time although he is in the ICU he has been managed by the primary care team. His chest x-ray showed no acute findings. Infectious diseases consulted for evaluation and management of possible sepsis, HIV/AIDS, oral thrush possible esophagitis. Overnight events reviewed. Occ low grade fevers. No rash Undergoes PD at night Antibiotics: Fluconazole IV Azithromycin 1200 mg once a week Lines: Lines ok Past Medical History: Reviewed Allergies/Adverse Reactions: Allergies No Known Allergies Allergy (Verified 02/02/18 13:58) Objective Vital Signs 02/06/18 16:00 02/06/18 20:00 02/06/18 23:55 Temperature 99.2 F 99.9 F H Pulse Rate 102 H 100 H 90 Respiratory Rate 18 17 Blood Pressure 120/78 112/70 Pulse Oximetry 100 99 02/07/18 00:00 02/07/18 04:00 02/07/18 08:00 Temperature 98.5 F 98.4 F Pulse Rate 90 107 H 100 H Respiratory Rate 18 18 Blood Pressure 137/64 122/76 Pulse Oximetry 99 98 02/07/18 09:00 02/07/18 12:00 Temperature 98.6 F Pulse Rate 77 90 Respiratory Rate 18 Blood Pressure 124/98 H Pulse Oximetry 98 Intake & Output 02/06/18 02/07/18 02/07/18 18:59 06:59 18:59 Intake Total 915 / 915 1065 / 1065 Output Total 50 / 50 Balance 865 / 865 1065 / 1065 Weight 68.2 kg Intake: IV 555 / 555 410 / 410 NS + KCl 40 mEq Inj 1,000 ML @ 555 / 555 100 mls/hr IV.CONT .Q10H [facility] Rx #:[id number] Diflucan 100 mg Premix Bag 50 50 / 50 ML @ 50 mls/hr IV.SIG Q24H [facility] Rx#:[id number] Magnesium Sulfate Inj 2 GM In 100 / 100 NS Inj 96 ML @ 50 mls/hr IV.SIG ONCE ONE Rx#:[id number] Potassium Phosphate Inj 30 MMOL 260 / 260 In NS Inj 250 ML @ 43.333 mls/ hr IV.SIG ONCE ONE Rx#:[id number] Oral 360 / 360 Other 655 / 655 Output: Urine 50 / 50 Other: # Voids 1 Date of Last Bowel Movement 02/07/18 # Bowel Movements 0 1 02/04/18 03:38 Blood - Peripheral Aerobic Blood Culture - Preliminary No growth in 3 days 02/04/18 03:38 Blood - Peripheral Anaerobic Blood Culture - Preliminary No growth in 3 days 02/03/18 10:30 Stool Acid Fast Bacilli Smear - Final Acid Fast Bacilli Seen 02/03/18 10:30 Stool Mycobacterial Culture - Preliminary 02/03/18 10:30 Stool Enteric Pathogens (PCR) - Final No enteric pathogens detected by PCR (No Salmonella sp., Shigella sp., Campylobacter sp., Yersinia enterocolitica, Vibrio sp., Norovirus, or EHEC (Shiga Toxin 1 or Shiga Toxin 2) detected. 02/03/18 10:30 Stool Cryptosporidium Antigen - Final Negative - No Cryptosporicium antigen detected In selected cases of patients with a history of immunosuppression or foreign travel, a full ova and parasites examination may be desired. Contact the microbiology lab if full workup is indicated and subit another specimen for testing. 02/03/18 10:30 Stool Giardia Antigen ([facility]) - Final Negative - No Giardia Antigen detected In selected cases of patients with a history of immunosuppression or foreign travel, a full ova and parasites examination may be desired. Contact the microbiology lab if full workup is indicated and subit another specimen for testing. 02/03/18 10:30 Stool Stool for WBCs - Final Rare WBC's Lab - Hematology Results 02/06/18 02/07/18 05:28 06:15 WBC 3.0 L 2.4 L RBC 3.23 L 3.19 L Hgb 8.4 L 8.4 L Hct 27.0 L 26.0 L MCV 83.8 81.4 MCH 26.1 L 26.3 L MCHC 31.2 L 32.4 RDW 18.9 H 19.1 H Plt Count 109 L 100 L MPV 8.1 8.4 Prelim Diff (Auto) Slide review pending Neut % (Auto) 78.0 H Lymph % (Auto) 6.7 L Coke % (Auto) 11.2 H Eos % (Auto) 2.8 Baso % (Auto) 1.3 Neut # (Auto) 1.9 Lymph # (Auto) 0.2 L Coke # (Auto) 0.3 Eos # (Auto) 0.1 Baso # (Auto) 0.0 WBC Differential Manual diff final Seg Neuts % (Manual) 74 H Band Neuts % (Manual) 10 H Lymphocytes % (Manual) 7 L Monocytes % (Manual) 7 Eosinophils % (Manual) 1 Basophils % (Manual) 1 Abs Neuts (Manual) 2.0 Differential Comment . Toxic Granulation 1+ H Platelet Estimate Low L Platelet Morphology Enlarged H Lab - Chemistry Results 02/06/18 02/07/18 05:28 06:15 Sodium 144 141 Potassium 3.6 3.4 L Chloride 113 H 109 H Carbon Dioxide 21.6 22.2 Anion Gap 9 10 BUN 29 H 31 H Creatinine 10.86 H* 10.53 H* Estimated GFR 6 L 6 L Random Glucose 96 86 Calcium 7.0 L* 6.6 L* Prot Corrected Calcium 8.3 L 7.8 L Phosphorus 1.7 L 3.2 D Magnesium 1.4 L 1.7 Total Bilirubin 0.3 0.3 AST 43 H 48 H ALT 10 L 13 Alkaline Phosphatase 64 61 Total Protein 4.7 L D 4.8 L Albumin 1.4 L 1.4 L Imaging: ITS Impressions Chest X-Ray 02/02/18 18:47 CONCLUSION: No evidence of acute cardiopulmonary disease. Head CT 02/02/18 19:49 CONCLUSION: 1. No acute intracranial abnormality demonstrated. 2. Mild chronic white matter changes. . Physical Exam: GENERAL: Well-nourished well-developed, not in acute distress SKIN: Cool and dry, no generalized rash. HEAD: Atraumatic. Normocephalic. No temporal or scalp tenderness. EYES: Pupils equal round and reactive. Scleral icterus. No injection or drainage. No petechia ENT: Nothing abnormal detected NECK: Trachea midline. Supple, nontender, no meningeal signs. CARDIOVASCULAR: HS audible. RESPIRATORY: Clear to auscultation bilaterally. GASTROINTESTINAL: Abdomen soft nontender. PD catheter insertion site with no evidence of infection. No guarding no rigidity. MUSCULOSKELETAL: Extremities without clubbing, cyanosis. NEUROLOGICAL: Alert oriented 3. Nonfocal. Psych cooperative IV line sites ok. Assessment and Plan - Plan Rule out sepsis due to hypotension. Suspect sepsis is probably from poor oral intake as well as ongoing losses from diarrhea. Oral thrush, possible Kayla esophagitis. Rule out herpetic esophagitis. Diarrhea: Gastroenteritis workup pending, age-related diarrheal illness causes need to be ruled out such as AFB, cryptosporidium, Giardia etc. HIV AIDS. Oral thrush is AIDS defining illness. Acute on chronic renal failure: Prerenal component, r/o HIV Nephropathy Hypokalemia likely secondary to poor oral intake as well as ongoing losses from diarrhea Questionable compliance with PT as well as HIV medications. Hypotension: Rule out sepsis, prerenal. Rule out disseminated Mycobacterium avium-intracellulare infection involving adrenal glands as a cause. Recs: One time dose of Pentamidine nebulizer one time dose if CD4 low will follow and decide. Appreciate ophthalm consult. DC oral azithro Start Oral Clarithro Start Oral Ethambutol Start Oral Rifampin Above regimen for suspected disseminated LULU infection given patients CD4 count is less than 24 and has very resistant virus. dw his past HIV doctor who he will need to follow up with. Continue Diflucan IV Appreciate GI assistance for EGD and Colonoscopy. Rule out Kayla and Herpetic esophagitis. Colonoscopy rule out PCP, CMV or AFB as cause for diarrhea. Follow CD4, Vl, GC, Chlamy, CMV PCR, RPR. Check HIV genotype. Patient had unprotected sex with his partner high risk for mutation as well as patient is noncompliant with HIV medication. Of note his partner is HIV positive as well. Check AFB blood cultures. Check fungal blood cultures. Follow cultures Follow clinical course
--- NOTE | 2018-02-07 17:26 | P.PNGI ---
Subjective Interval history: Patient is resting in the bed continues to feel better no nausea no vomiting no abdominal pain <Saritha Sanchez - Last Filed: 02/07/18 17:30> Physical Exam Vital signs: Vital Signs 02/06/18 20:00 02/06/18 23:55 02/07/18 00:00 Temperature 99.9 F H 98.5 F Pulse Rate 100 H 90 90 Respiratory Rate 17 18 Blood Pressure 112/70 137/64 Pulse Oximetry 99 99 02/07/18 04:00 02/07/18 08:00 02/07/18 09:00 Temperature 98.4 F Pulse Rate 107 H 100 H 77 Respiratory Rate 18 Blood Pressure 122/76 Pulse Oximetry 98 02/07/18 12:00 02/07/18 16:00 Temperature 98.6 F 99.0 F Pulse Rate 90 97 H Respiratory Rate 18 18 Blood Pressure 124/98 H 130/86 Pulse Oximetry 98 97 Intake & Output 02/06/18 02/07/18 02/07/18 18:59 06:59 18:59 Intake Total 915 / 915 1065 / 1065 Output Total 50 / 50 Balance 865 / 865 1065 / 1065 Weight 68.2 kg Intake: IV 555 / 555 410 / 410 NS + KCl 40 mEq Inj 1,000 ML @ 555 / 555 100 mls/hr IV.CONT .Q10H [facility] Rx #:[id number] Diflucan 100 mg Premix Bag 50 50 / 50 ML @ 50 mls/hr IV.SIG Q24H [facility] Rx#:[id number] Magnesium Sulfate Inj 2 GM In 100 / 100 NS Inj 96 ML @ 50 mls/hr IV.SIG ONCE ONE Rx#:[id number] Potassium Phosphate Inj 30 MMOL 260 / 260 In NS Inj 250 ML @ 43.333 mls/ hr IV.SIG ONCE ONE Rx#:[id number] Oral 360 / 360 Other 655 / 655 Output: Urine 50 / 50 Other: # Voids 1 Date of Last Bowel Movement 02/07/18 # Bowel Movements 0 1 - Constitutional mild distress, thin - Routine HEENT Exam Head: Present: normocephalic (Pale mucous membrane) ENT: Present: mucous membranes moist - Routine Neck Exam Present: supple - Routine Respiratory Exam Present: accessory muscle use (No wheezing, even unlabored at rest) - Routine Cardiovascular Exam Present: S1, S2 - Routine Abdominal Exam Present: soft (Abdomen round but no tenderness) - Routine Skin Exam Present: intact <Saritha Sanchez - Last Filed: 02/07/18 17:30> Vital signs: Vital Signs 02/06/18 23:55 02/07/18 00:00 02/07/18 04:00 Temperature 98.5 F Pulse Rate 90 90 107 H Respiratory Rate 18 Blood Pressure 137/64 Pulse Oximetry 99 02/07/18 08:00 02/07/18 09:00 02/07/18 12:00 Temperature 98.4 F 98.6 F Pulse Rate 100 H 77 90 Respiratory Rate 18 18 Blood Pressure 122/76 124/98 H Pulse Oximetry 98 98 02/07/18 16:00 02/07/18 16:54 Temperature 99.0 F Pulse Rate 86 86 Respiratory Rate 18 Blood Pressure 130/86 Pulse Oximetry 97 Intake & Output 02/07/18 02/07/18 02/08/18 06:59 18:59 06:59 Intake Total 1065 / 1065 500 / 500 Output Total 75 / 75 Balance 1065 / 1065 425 / 425 Weight 68.2 kg Intake: IV 410 / 410 Diflucan 100 mg Premix Bag 50 50 / 50 ML @ 50 mls/hr IV.SIG Q24H [facility] Rx#:[id number] Magnesium Sulfate Inj 2 GM In 100 / 100 NS Inj 96 ML @ 50 mls/hr IV.SIG ONCE ONE Rx#:[id number] Potassium Phosphate Inj 30 MMOL 260 / 260 In NS Inj 250 ML @ 43.333 mls/ hr IV.SIG ONCE ONE Rx#:[id number] Oral 500 / 500 Other 655 / 655 Output: Urine 75 / 75 Other: # Voids 1 Date of Last Bowel Movement 02/07/18 # Bowel Movements 1 2 <Blake Dowling - Last Filed: 02/07/18 20:55> Results - Labs CBC & Chem 7: 02/07/18 06:15 02/07/18 06:15 Laboratory Results - last 24 hr 02/03/18 02/04/18 02/07/18 03:50 03:38 06:15 WBC RBC Hgb Hct MCV MCH MCHC RDW Plt Count MPV Prelim Diff (Auto) Neut % (Auto) Lymph % (Auto) Brooks % (Auto) Eos % (Auto) Baso % (Auto) Neut # (Auto) Lymph # (Auto) Brooks # (Auto) Eos # (Auto) Baso # (Auto) WBC Differential Seg Neuts % (Manual) Band Neuts % (Manual) Lymphocytes % (Manual) Monocytes % (Manual) Eosinophils % (Manual) Basophils % (Manual) Abs Neuts (Manual) Differential Comment Toxic Granulation Platelet Estimate Platelet Morphology Sodium 141 Potassium 3.4 L Chloride 109 H Carbon Dioxide 22.2 Anion Gap 10 BUN 31 H Creatinine 10.53 H* Estimated GFR 6 L Random Glucose 86 Calcium 6.6 L* Prot Corrected Calcium 7.8 L Phosphorus 3.2 D Magnesium 1.7 Total Bilirubin 0.3 AST 48 H ALT 13 Alkaline Phosphatase 61 Total Protein 4.8 L Albumin 1.4 L Absolute Lymphocytes 171 L % CD3 Cells 79 Absolute CD3 Count 135 L % CD3-/CD16+/CD56+ 17 Abs CD3-/CD16+/CD56+ 28 L % CD4 Cells 6 L Absolute CD4 Count Less than 20 L T-Help/Suppress Ratio 0.10 L % CD8 Cells 71 H Absolute CD8 Count 124 L % CD19 Cells 1 L Absolute CD19 Count Less than 20 L CMV Qnt PCR IU/mL 5650 02/07/18 06:15 WBC 2.4 L RBC 3.19 L Hgb 8.4 L Hct 26.0 L MCV 81.4 MCH 26.3 L MCHC 32.4 RDW 19.1 H Plt Count 100 L MPV 8.4 Prelim Diff (Auto) Slide review pending Neut % (Auto) 78.0 H Lymph % (Auto) 6.7 L Brooks % (Auto) 11.2 H Eos % (Auto) 2.8 Baso % (Auto) 1.3 Neut # (Auto) 1.9 Lymph # (Auto) 0.2 L Brooks # (Auto) 0.3 Eos # (Auto) 0.1 Baso # (Auto) 0.0 WBC Differential Manual diff final Seg Neuts % (Manual) 74 H Band Neuts % (Manual) 10 H Lymphocytes % (Manual) 7 L Monocytes % (Manual) 7 Eosinophils % (Manual) 1 Basophils % (Manual) 1 Abs Neuts (Manual) 2.0 Differential Comment . Toxic Granulation 1+ H Platelet Estimate Low L Platelet Morphology Enlarged H Sodium Potassium Chloride Carbon Dioxide Anion Gap BUN Creatinine Estimated GFR Random Glucose Calcium Prot Corrected Calcium Phosphorus Magnesium Total Bilirubin AST ALT Alkaline Phosphatase Total Protein Albumin Absolute Lymphocytes % CD3 Cells Absolute CD3 Count % CD3-/CD16+/CD56+ Abs CD3-/CD16+/CD56+ % CD4 Cells Absolute CD4 Count T-Help/Suppress Ratio % CD8 Cells Absolute CD8 Count % CD19 Cells Absolute CD19 Count CMV Qnt PCR IU/mL Microbiology 02/04/18 03:38 Blood - Peripheral Aerobic Blood Culture - Preliminary No growth in 3 days 02/04/18 03:38 Blood - Peripheral Anaerobic Blood Culture - Preliminary No growth in 3 days 02/03/18 10:30 Stool Acid Fast Bacilli Smear - Final Acid Fast Bacilli Seen 02/03/18 10:30 Stool Mycobacterial Culture - Preliminary <Saritha Sanchez M - Last Filed: 02/07/18 17:30> - Labs CBC & Chem 7: 02/07/18 06:15 02/07/18 06:15 Laboratory Results - last 24 hr 02/03/18 02/04/18 02/04/18 03:50 03:38 03:38 WBC RBC Hgb Hct MCV MCH MCHC RDW Plt Count MPV Prelim Diff (Auto) Neut % (Auto) Lymph % (Auto) Brooks % (Auto) Eos % (Auto) Baso % (Auto) Neut # (Auto) Lymph # (Auto) Brooks # (Auto) Eos # (Auto) Baso # (Auto) WBC Differential Seg Neuts % (Manual) Band Neuts % (Manual) Lymphocytes % (Manual) Monocytes % (Manual) Eosinophils % (Manual) Basophils % (Manual) Abs Neuts (Manual) Differential Comment Toxic Granulation Platelet Estimate Platelet Morphology Sodium Potassium Chloride Carbon Dioxide Anion Gap BUN Creatinine Estimated GFR Random Glucose Calcium Prot Corrected Calcium Phosphorus Magnesium Total Bilirubin AST ALT Alkaline Phosphatase Total Protein Albumin Absolute Lymphocytes 171 L % CD3 Cells 79 Absolute CD3 Count 135 L % CD3-/CD16+/CD56+ 17 Abs CD3-/CD16+/CD56+ 28 L % CD4 Cells 6 L Absolute CD4 Count Less than 20 L T-Help/Suppress Ratio 0.10 L % CD8 Cells 71 H Absolute CD8 Count 124 L % CD19 Cells 1 L Absolute CD19 Count Less than 20 L CMV Qnt PCR IU/mL 5650 HIV RNA copies/mL Ultra 20812.0 H HIV RNA logcopies/mL Ult 4.34 H 02/07/18 02/07/18 06:15 06:15 WBC 2.4 L RBC 3.19 L Hgb 8.4 L Hct 26.0 L MCV 81.4 MCH 26.3 L MCHC 32.4 RDW 19.1 H Plt Count 100 L MPV 8.4 Prelim Diff (Auto) Slide review pending Neut % (Auto) 78.0 H Lymph % (Auto) 6.7 L Brooks % (Auto) 11.2 H Eos % (Auto) 2.8 Baso % (Auto) 1.3 Neut # (Auto) 1.9 Lymph # (Auto) 0.2 L Brooks # (Auto) 0.3 Eos # (Auto) 0.1 Baso # (Auto) 0.0 WBC Differential Manual diff final Seg Neuts % (Manual) 74 H Band Neuts % (Manual) 10 H Lymphocytes % (Manual) 7 L Monocytes % (Manual) 7 Eosinophils % (Manual) 1 Basophils % (Manual) 1 Abs Neuts (Manual) 2.0 Differential Comment . Toxic Granulation 1+ H Platelet Estimate Low L Platelet Morphology Enlarged H Sodium 141 Potassium 3.4 L Chloride 109 H Carbon Dioxide 22.2 Anion Gap 10 BUN 31 H Creatinine 10.53 H* Estimated GFR 6 L Random Glucose 86 Calcium 6.6 L* Prot Corrected Calcium 7.8 L Phosphorus 3.2 D Magnesium 1.7 Total Bilirubin 0.3 AST 48 H ALT 13 Alkaline Phosphatase 61 Total Protein 4.8 L Albumin 1.4 L Absolute Lymphocytes % CD3 Cells Absolute CD3 Count % CD3-/CD16+/CD56+ Abs CD3-/CD16+/CD56+ % CD4 Cells Absolute CD4 Count T-Help/Suppress Ratio % CD8 Cells Absolute CD8 Count % CD19 Cells Absolute CD19 Count CMV Qnt PCR IU/mL HIV RNA copies/mL Ultra HIV RNA logcopies/mL Ult Microbiology 02/04/18 03:38 Blood - Peripheral Aerobic Blood Culture - Preliminary No growth in 3 days 02/04/18 03:38 Blood - Peripheral Anaerobic Blood Culture - Preliminary No growth in 3 days <Blake Dowling - Last Filed: 02/07/18 20:55> Assessment and Plan - Plan Dysphasia, oral thrush noted on admission which could be related to Kayla esophagitis, anorexia approximately 2 weeks, which could be related to Kayla/ dysphasia Diarrhea stools Generalized weakness and fatigue history of HIV since the age of 23, currently being worked up per I&D who recommends EGD and colonoscopy to rule out Kayla esophagitis. Request for colonoscopy to rule out PCP, CM V or AFB as cause for diarrhea. Enterovirus stool sample pending History of acute on chronic renal failure 02/04/2018 patient appears to be feeling better today and more alert. Still has some mild dysphasia in the back of the throat but still could be related to Kayla. Tolerating clear liquids without nausea or vomiting. Discussed in length again today EGD and colonoscopy and answered any questions. Labs reviewed current hemoglobin 9.6, WBC count 3.2,. Loose diarrheal stools show gradual improvement with softer consistency less watery. 02/06/2018 patient is status post EGD colonoscopy on 02/05/[address] Hernandez , findings include Gastritis, Duodenitis Unremarkable colonoscopy except for internal hemorrhoids Causes for diarrhea unclear but no obvious infection noted in the GI tract. Total [address] scan is pending evaluation for any other causes of diarrhea, stool studies negative so far. If CT scan is negative or non-GI related we can follow in the office after biopsies are back. End-stage renal disease patient uses peritoneal dialysis every evening Labs reviewed current hemoglobin 8.4 WBC count 3. Chronic anemia probably related to end-stage renal disease 02/07/2018 patient continues to mildly improve from a GI standpoint, no nausea no vomiting no abdominal pain, labs monitored current hemoglobin 8.4 unchanged no obvious bleeding noted. Will need to follow-up in the GI office outpatient for biopsy results. Patient states diarrhea resolved probably secondary to dehydration. PLAN Diet as tolerated Encourage hydration as well as caloric and healthy diet, high-fiber renal Await biopsies PPI Supportive care Patient was seen per myself and Dr. Dowling, note was written on his behalf <Saritha Sanchez - Last Filed: 02/07/18 17:30> - Plan Agree with above note and plan, okay to discharge home from GI perspective once able to eat, we will follow-up as needed <Blake Dowling - Last Filed: 02/07/18 20:55>
--- NOTE | 2018-02-07 17:29 | P.PNIM ---
Subjective Interval history: Patient says he is feeling right. Denies any chest pain shortness of breath. Denies nausea or vomiting. Denies diarrhea today. Physical Exam Vital signs: Vital Signs 02/06/18 20:00 02/06/18 23:55 02/07/18 00:00 Temperature 99.9 F H 98.5 F Pulse Rate 100 H 90 90 Respiratory Rate 17 18 Blood Pressure 112/70 137/64 Pulse Oximetry 99 99 02/07/18 04:00 02/07/18 08:00 02/07/18 09:00 Temperature 98.4 F Pulse Rate 107 H 100 H 77 Respiratory Rate 18 Blood Pressure 122/76 Pulse Oximetry 98 02/07/18 12:00 02/07/18 16:00 Temperature 98.6 F 99.0 F Pulse Rate 90 97 H Respiratory Rate 18 18 Blood Pressure 124/98 H 130/86 Pulse Oximetry 98 97 Intake & Output 02/06/18 02/07/18 02/07/18 18:59 06:59 18:59 Intake Total 915 / 915 1065 / 1065 Output Total 50 / 50 Balance 865 / 865 1065 / 1065 Weight 68.2 kg Intake: IV 555 / 555 410 / 410 NS + KCl 40 mEq Inj 1,000 ML @ 555 / 555 100 mls/hr IV.CONT .Q10H [facility] Rx #:[id number] Diflucan 100 mg Premix Bag 50 50 / 50 ML @ 50 mls/hr IV.SIG Q24H [facility] Rx#:[id number] Magnesium Sulfate Inj 2 GM In 100 / 100 NS Inj 96 ML @ 50 mls/hr IV.SIG ONCE ONE Rx#:[id number] Potassium Phosphate Inj 30 MMOL 260 / 260 In NS Inj 250 ML @ 43.333 mls/ hr IV.SIG ONCE ONE Rx#:[id number] Oral 360 / 360 Other 655 / 655 Output: Urine 50 / 50 Other: # Voids 1 Date of Last Bowel Movement 02/07/18 # Bowel Movements 0 1 Narrative: GENERAL: Patient lying in bed. Appears comfortable. No change on exam. SKIN: Warm and dry. HEAD: Normocephalic. EYES: No scleral icterus. No injection or drainage. NECK: Supple, trachea midline. No JVD. CARDIOVASCULAR: Regular rate and rhythm without murmurs, gallops, or rubs. RESPIRATORY: Breath sounds equal bilaterally. No accessory muscle use. GASTROINTESTINAL: Abdomen soft, non-tender, nondistended. MUSCULOSKELETAL: No cyanosis, or edema. BACK: Nontender without obvious deformity. No CVA tenderness. Results - Labs CBC & Chem 7: 02/07/18 06:15 02/07/18 06:15 Laboratory Results - last 24 hr 02/03/18 02/04/18 02/07/18 03:50 03:38 06:15 WBC RBC Hgb Hct MCV MCH MCHC RDW Plt Count MPV Prelim Diff (Auto) Neut % (Auto) Lymph % (Auto) Wilkes % (Auto) Eos % (Auto) Baso % (Auto) Neut # (Auto) Lymph # (Auto) Wilkes # (Auto) Eos # (Auto) Baso # (Auto) WBC Differential Seg Neuts % (Manual) Band Neuts % (Manual) Lymphocytes % (Manual) Monocytes % (Manual) Eosinophils % (Manual) Basophils % (Manual) Abs Neuts (Manual) Differential Comment Toxic Granulation Platelet Estimate Platelet Morphology Sodium 141 Potassium 3.4 L Chloride 109 H Carbon Dioxide 22.2 Anion Gap 10 BUN 31 H Creatinine 10.53 H* Estimated GFR 6 L Random Glucose 86 Calcium 6.6 L* Prot Corrected Calcium 7.8 L Phosphorus 3.2 D Magnesium 1.7 Total Bilirubin 0.3 AST 48 H ALT 13 Alkaline Phosphatase 61 Total Protein 4.8 L Albumin 1.4 L Absolute Lymphocytes 171 L % CD3 Cells 79 Absolute CD3 Count 135 L % CD3-/CD16+/CD56+ 17 Abs CD3-/CD16+/CD56+ 28 L % CD4 Cells 6 L Absolute CD4 Count Less than 20 L T-Help/Suppress Ratio 0.10 L % CD8 Cells 71 H Absolute CD8 Count 124 L % CD19 Cells 1 L Absolute CD19 Count Less than 20 L CMV Qnt PCR IU/mL 5650 02/07/18 06:15 WBC 2.4 L RBC 3.19 L Hgb 8.4 L Hct 26.0 L MCV 81.4 MCH 26.3 L MCHC 32.4 RDW 19.1 H Plt Count 100 L MPV 8.4 Prelim Diff (Auto) Slide review pending Neut % (Auto) 78.0 H Lymph % (Auto) 6.7 L Wilkes % (Auto) 11.2 H Eos % (Auto) 2.8 Baso % (Auto) 1.3 Neut # (Auto) 1.9 Lymph # (Auto) 0.2 L Wilkes # (Auto) 0.3 Eos # (Auto) 0.1 Baso # (Auto) 0.0 WBC Differential Manual diff final Seg Neuts % (Manual) 74 H Band Neuts % (Manual) 10 H Lymphocytes % (Manual) 7 L Monocytes % (Manual) 7 Eosinophils % (Manual) 1 Basophils % (Manual) 1 Abs Neuts (Manual) 2.0 Differential Comment . Toxic Granulation 1+ H Platelet Estimate Low L Platelet Morphology Enlarged H Sodium Potassium Chloride Carbon Dioxide Anion Gap BUN Creatinine Estimated GFR Random Glucose Calcium Prot Corrected Calcium Phosphorus Magnesium Total Bilirubin AST ALT Alkaline Phosphatase Total Protein Albumin Absolute Lymphocytes % CD3 Cells Absolute CD3 Count % CD3-/CD16+/CD56+ Abs CD3-/CD16+/CD56+ % CD4 Cells Absolute CD4 Count T-Help/Suppress Ratio % CD8 Cells Absolute CD8 Count % CD19 Cells Absolute CD19 Count CMV Qnt PCR IU/mL Microbiology 02/04/18 03:38 Blood - Peripheral Aerobic Blood Culture - Preliminary No growth in 3 days 02/04/18 03:38 Blood - Peripheral Anaerobic Blood Culture - Preliminary No growth in 3 days 02/03/18 10:30 Stool Acid Fast Bacilli Smear - Final Acid Fast Bacilli Seen 02/03/18 10:30 Stool Mycobacterial Culture - Preliminary Assessment and Plan - Assessment (1) ESRD on peritoneal dialysis Code(s): N18.6 - End stage renal disease; Z99.2 - Dependence on renal dialysis Status: Acute (2) Diarrhea Code(s): R19.7 - Diarrhea, unspecified Status: Acute (3) HIV (human immunodeficiency virus infection) Code(s): B20 - Human immunodeficiency virus [HIV] disease Status: Acute (4) Thrush Code(s): B37.0 - Candidal stomatitis Status: Acute (5) Hypokalemia Code(s): E87.6 - Hypokalemia Status: Acute - Plan 52-year-old male with history of HIV and ESRD on PD admitted overnight with generalized weakness, decreased appetite, nausea, and vomiting found to have significant hypokalemia and acute on chronic renal failure. // ESRD on PD - acute on chronic - Patient follows with Dr. Shah - Creatinine back in February ~ and was 13.53 on admission -Likely secondary to decreased PO intake - Continue IV hydration with potassium supplement, watch for fluid overload - Nephrology following - Continue PD - Avoid nephrotoxic agents and renally dose meds //HIV - Last CD4 <20 on 03/09/17 - Noncompliant with f/u and taking antiretrovirals - Not on any prophylaxis. Started on Azithromycin but holding Bactrim secondary to his renal function - CD4 count and viral load pending - ID following //Suspected disseminated LULU Positive AFB of stool. ID notified. Appreciate assistance. // Hypokalemia - Improving - Possibly secondary to GI losses from diarrhea - Continue to replace and follow level closely - Mg WNL - Phosphorous low, start K-Phos - Monitor on tele // Diarrhea //Suspected disseminated LULU. - Check stool studies, enteric pathogens currently pending - C. diff negative - GI following -EGD colonoscopy revealed gastritis, duodenitis and internal hemorrhoids Stools more formed, continue supportive care, IV fluid hydration -ID following. Appreciate assistance. = 02/07. Discussed with infectious disease. Blood AFB ordered and pending. // Anemia of chronic disease - Secondary to ESRD and HIV - Patient also having some bloody, mucous-like diarrhea which may be causing an acute anemia component -Hemoglobin stable // Thrush, odynophagia - Continue PO Diflucan add Magic mouthwash -Status post EGD with duodenitis and gastritis, start PPI = 02/07. Discussed with infectious disease. Esophageal biopsies pending. //Possible contact dermatitis1% hydrocortisone cream DVT prophylaxis: heparin, Discharge Planning: Home when cleared by nephrology and ID.
[2018-02-07] MEDS: Calcium Carbonate 500 MG Tablet PO SCH (20:54)
[2018-02-08 06:58] LABS: Baso % (Auto) 1.1 % (0.0-2.0); Eos # (Auto) 0.1 th/mm3 (0.0-0.4); Hematocrit 28.7 % (39.0-51.0); Hemoglobin 9.1 gm/dL (13.0-17.0); Lymph # (Auto) 0.2 th/mm3 (1.0-4.8); Lymph % (Auto) 9.1 % (9.0-44.0); Mean Corpuscular HGB Conc 31.7 % (32.0-36.0); Mean Corpuscular Hemoglobin 26.5 pg (27.0-34.0); Mean Corpuscular Volume 83.5 fL (80.0-100.0); Mean Platelet Volume 8.6 fL (7.0-11.0); Mono # (Auto) 0.1 th/mm3 (0.0-0.9); Mono % (Auto) 4.8 % (0.0-8.0); Neut # (Auto) 1.7 th/mm3 (1.8-7.7); Platelet Count 81 th/mm3 (150-450); Red Blood Count 3.43 mil/mm3 (4.50-5.90); White Blood Count 2.1 th/mm3 (4.0-11.0)
[2018-02-08 08:11] LABS: Albumin 1.5 g/dL (3.4-5.0); Calcium 7.1 mg/dL (8.5-10.1); Carbon Dioxide 24.2 meq/L (21.0-32.0); Magnesium 1.7 mg/dL (1.5-2.5); Phosphorus 3.4 mg/dL (2.5-4.9); Potassium 3.5 meq/L (3.5-5.1)
[2018-02-08] MEDS: Senna/Docusate Sodium 8.6/50 MG Tablet PO SCH ×2 (10:02→21:27)
[2018-02-08] MEDS: Calcium Carbonate 500 MG Tablet PO SCH ×3 (10:02→23:05)
[2018-02-08] MEDS: Nystatin/Diphenhydramine/Lidocaine Mouthwash (Adult) 120 ML Botttle SWISH-SWAL SCH ×4 (10:03→21:26)
[2018-02-08] MEDS: Potassium Phosphate 500 MG Soluble Tablet PO SCH (10:03)
--- NOTE | 2018-02-08 10:11 | P.PNNP ---
Subjective Interval history: Resting in bed with no complaints. PD nightly. Appetite improving. <Karolyn Jolly - Last Filed: 02/08/18 10:05> Physical Exam Vital signs: Vital Signs 02/07/18 12:00 02/07/18 16:00 02/07/18 16:54 Temperature 98.6 F 99.0 F Pulse Rate 90 86 86 Respiratory Rate 18 18 Blood Pressure 124/98 H 130/86 Pulse Oximetry 98 97 02/07/18 19:25 02/07/18 20:00 02/07/18 23:29 Temperature 99.7 F H 98.5 F Pulse Rate 98 H 100 H 89 Respiratory Rate 18 16 Blood Pressure 120/82 117/82 Pulse Oximetry 98 100 02/08/18 00:00 02/08/18 04:00 02/08/18 08:00 Temperature 98.2 F 100.3 F H Pulse Rate 81 80 90 Respiratory Rate 18 17 Blood Pressure 113/81 137/93 H Pulse Oximetry 100 99 Intake & Output 02/07/18 02/08/18 02/08/18 18:59 06:59 18:59 Intake Total 500 / 500 492 / 492 Output Total 75 / 75 150 / 150 Balance 425 / 425 342 / 342 Weight 63.6 kg Intake: IV 50 / 50 Diflucan 100 mg Premix Bag 50 50 / 50 ML @ 50 mls/hr IV.SIG Q24H [facility] Rx#:[id number] Oral 500 / 500 442 / 442 Output: Urine 75 / 75 150 / 150 Other: # Bowel Movements 2 Narrative: GENERAL: Patient lying in bed. Appears comfortable. SKIN: Warm and dry. NECK: Supple, trachea midline. No JVD. CARDIOVASCULAR: Regular rate and rhythm without murmurs, gallops, or rubs. RESPIRATORY: Breath sounds equal bilaterally. No accessory muscle use. GASTROINTESTINAL: Abdomen soft, non-tender, nondistended. PD catheter with dressing on. MUSCULOSKELETAL: No cyanosis, or edema. <Karolyn Jolly - Last Filed: 02/08/18 10:05> Vital signs: Vital Signs 02/12/18 00:00 02/12/18 04:00 02/12/18 08:00 Temperature 98.8 F 97.8 F 98.6 F Pulse Rate 90 84 83 Respiratory Rate 16 16 18 Blood Pressure 116/78 97/61 L 111/73 Pulse Oximetry 99 99 99 02/12/18 09:00 02/12/18 12:00 02/12/18 13:00 Temperature 98.6 F Pulse Rate 86 84 89 Respiratory Rate 18 Blood Pressure 124/84 Pulse Oximetry 99 02/12/18 16:00 02/12/18 17:00 Temperature 98 F Pulse Rate 85 87 Respiratory Rate 16 Blood Pressure 116/73 Pulse Oximetry 97 Intake & Output 02/12/18 02/12/18 02/13/18 06:59 18:59 06:59 Intake Total 100 / 100 1740 / 1740 Output Total 1150 / 1150 Balance 100 / 100 590 / 590 Weight 63 kg Intake: IV 100 / 100 Diflucan 100 mg Premix Bag 50 100 / 100 ML @ 50 mls/hr IV.SIG Q24H [facility] Rx#:[id number] Oral 1740 / 1740 Output: Urine 1150 / 1150 Other: Date of Last Bowel Movement 02/11/18 02/11/18 # Bowel Movements 0 <Leonides Shah - Last Filed: 02/12/18 20:55> Assessment and Plan - Assessment (1) ESRD on peritoneal dialysis Code(s): N18.6 - End stage renal disease; Z99.2 - Dependence on renal dialysis Status: Acute Plan: Continue APD nightly, tolerating well Avoid IVF administration. Hypokalemia resolved. Continue calcium replacement (2) Diarrhea Code(s): R19.7 - Diarrhea, unspecified Status: Acute Plan: Follow with GI, ID. Reports improvement in diarrhea (3) HIV (human immunodeficiency virus infection) Code(s): B20 - Human immunodeficiency virus [HIV] disease Status: Acute Plan: non-compliance, follow with ID (4) Thrush Code(s): B37.0 - Candidal stomatitis Status: Acute (5) Hypokalemia Code(s): E87.6 - Hypokalemia Status: Acute Plan: Due to poor PO intake, GI losses The patient presented with significant hypokalemia with a potassium of 1.9 at the time of admission. Improved <Kraolyn Jolly - Last Filed: 02/08/18 10:05> - Assessment (1) ESRD on peritoneal dialysis Code(s): N18.6 - End stage renal disease; Z99.2 - Dependence on renal dialysis Status: Acute Plan: Patient seen and examined, agree with above. K is better, BP is stable. PD fluid is clear, encourage oral intake. (2) Diarrhea Code(s): R19.7 - Diarrhea, unspecified Status: Acute (3) HIV (human immunodeficiency virus infection) Code(s): B20 - Human immunodeficiency virus [HIV] disease Status: Acute (4) Thrush Code(s): B37.0 - Candidal stomatitis Status: Acute (5) Hypokalemia Code(s): E87.6 - Hypokalemia Status: Acute <Leonides Shah - Last Filed: 02/12/18 20:55>
[2018-02-08 10:14] LABS: Lymphocytes 9 % (9-44); Monocytes 2 % (0-8)
[2018-02-08 10:15] LABS: Acanthocytes 1+; Ovalocytes 1+; Platelet Morphology Normal (Normal); Tear Drop Cells 1+; Toxic Granulation 2+
[2018-02-08] MEDS: Acetaminophen 325 MG Tablet PO PRN ×2 (13:19→21:28)
[2018-02-08] MEDS ORDERED: Sod Chloride 0.9% Inj 1,000 ML IV.SIG SCH (13:45)
[2018-02-08 13:53] LABS: Darunavir w Ritonavir SUSC; Fosamprenavir w Ritonavir SUSC; HIV 1 Genotyping INTERP; Indinavir w Ritonavir SUSC; Lopinavir w Ritonavir SUSC; Nefinavir SUSC; Nonnucleoside RT Mutation V106I; Nucleos(t)ide RT Mutations T69A; Saquinavir w Ritonavir SUSC; Tipranavir with Ritanavir SUSC
--- NOTE | 2018-02-08 16:54 | P.PNID ---
Subjective Remarks: is a 52-year-old -Romanian past medical history significant for HIV diagnosed when he was 23 years old. Patient reports that he used to see RADHA Leslie at Dr. Paul office for his HIV care. He reports that the last time he saw her was approximately 2 years back. When asked patient did not know his most recent CD4 count or viral load. He did not know his current HIV medication regimen. When questioned who was prescribing his HIV medication he replied that it may have been either Dr. Paul office or 's office. The last known CD4 count for the patient is less than 2 and this was approximately a year back. Patient also is on peritoneal dialysis for his end- stage renal disease and follows up with . Patient reports that approximately 2 weeks back he started developing diarrhea with no blood. He denies any black tarry stools or fresh blood per rectum. He initially did not have any nausea or vomiting subsequently reports having developed nausea. Approximately 4 days prior to admission patient lost his appetite had nausea and may be some difficulty swallowing. Patient reports that when he presented to the emergency department he was questioned about white patches on his tongue and was told that it was oral thrush. He thinks it is the first time he has been told he has oral thrush. He denies any prior admissions for AIDS defining illnesses. He does not remember being on any prophylactic regimen for prevention of infections. At baseline patient is able to wake up in the morning drive his car and go to get some breakfast as well as lunch and stay at the mall for several hours. He thinks he may be depressed because after getting home he pretty much stays in his so far all day. He reports that he has a partner who lives in [place] but they are not sexually active for the last 6 months. With this background patient presents to the emergency department at [facility] with complaints of generalized weakness, dizziness decreased appetite for approximately 2 weeks. Due to worsening symptoms of nausea and inability to stand due to extreme weakness he presented to the emergency department. He denies any fevers chills night sweats. He denies any other systemic symptoms. He undergoes peritoneal dialysis every night and denies any abdominal pain or discharge from the PD catheter site. On arrival to the emergency department his blood pressure was 92 x 52 his heart rate was 117 his O2 sats were 98% on room air and he had a temperature of 99.6. Since admission he has had no fevers. He has been receiving IV fluids but is not on any pressors. Patient's creatinine was found to be 13.53 and his potassium was 1.9 and therefore patient is admitted to the intensive care unit. At the present time although he is in the ICU he has been managed by the primary care team. His chest x-ray showed no acute findings. Infectious diseases consulted for evaluation and management of possible sepsis, HIV/AIDS, oral thrush possible esophagitis. Overnight events reviewed. Occ low grade fevers. No rash Undergoes PD at night Antibiotics: Fluconazole IV Azithromycin 1200 mg once a week Lines: Lines ok Past Medical History: Reviewed Allergies/Adverse Reactions: Allergies No Known Allergies Allergy (Verified 02/02/18 13:58) Objective Vital Signs 02/07/18 19:25 02/07/18 20:00 02/07/18 23:29 Temperature 99.7 F H 98.5 F Pulse Rate 98 H 100 H 89 Respiratory Rate 18 16 Blood Pressure 120/82 117/82 Pulse Oximetry 98 100 02/08/18 00:00 02/08/18 04:00 02/08/18 08:00 Temperature 98.2 F 100.3 F H Pulse Rate 81 80 79 Respiratory Rate 18 17 Blood Pressure 113/81 137/93 H Pulse Oximetry 100 99 02/08/18 12:00 02/08/18 13:17 Temperature 98.1 F 101.6 F H Pulse Rate 111 H 120 H Respiratory Rate 17 18 Blood Pressure 113/87 123/83 Pulse Oximetry 98 98 Intake & Output 02/07/18 02/08/18 02/08/18 18:59 06:59 18:59 Intake Total 500 / 500 492 / 492 1000 / 1000 Output Total 75 / 75 150 / 150 Balance 425 / 425 342 / 342 1000 / 1000 Weight 63.6 kg Intake: IV 50 / 50 1000 / 1000 Diflucan 100 mg Premix Bag 50 50 / 50 ML @ 50 mls/hr IV.SIG Q24H PIERRE Rx#:[id number] NS Inj 1,000 ML @ 1000 mls/hr 1000 / 1000 IV.SIG BOLUS PIERRE Rx#:[id number] Oral 500 / 500 442 / 442 Output: Urine 75 / 75 150 / 150 Other: Date of Last Bowel Movement 02/08/18 # Bowel Movements 2 02/08/18 14:23 Blood - Peripheral Aerobic Blood Culture - Pending 02/08/18 14:23 Blood - Peripheral Anaerobic Blood Culture - Pending 02/08/18 14:23 Blood - Peripheral Aerobic Blood Culture - Pending 02/08/18 14:23 Blood - Peripheral Anaerobic Blood Culture - Pending 02/04/18 03:38 Blood - Peripheral Aerobic Blood Culture - Preliminary No growth in 4 days 02/04/18 03:38 Blood - Peripheral Anaerobic Blood Culture - Preliminary No growth in 4 days 02/07/18 17:41 Blood - Peripheral Mycobacterial Culture - Pending 02/03/18 10:30 Stool Acid Fast Bacilli Smear - Final Acid Fast Bacilli Seen 02/03/18 10:30 Stool Mycobacterial Culture - Preliminary 02/03/18 10:30 Stool Enteric Pathogens (PCR) - Final No enteric pathogens detected by PCR (No Salmonella sp., Shigella sp., Campylobacter sp., Yersinia enterocolitica, Vibrio sp., Norovirus, or EHEC (Shiga Toxin 1 or Shiga Toxin 2) detected. 02/03/18 10:30 Stool Cryptosporidium Antigen - Final Negative - No Cryptosporicium antigen detected In selected cases of patients with a history of immunosuppression or foreign travel, a full ova and parasites examination may be desired. Contact the microbiology lab if full workup is indicated and subit another specimen for testing. 02/03/18 10:30 Stool Giardia Antigen (PAUL) - Final Negative - No Giardia Antigen detected In selected cases of patients with a history of immunosuppression or foreign travel, a full ova and parasites examination may be desired. Contact the microbiology lab if full workup is indicated and subit another specimen for testing. Lab - Hematology Results 02/07/18 02/08/18 06:15 06:08 WBC 2.4 L 2.1 L RBC 3.19 L 3.43 L Hgb 8.4 L 9.1 L Hct 26.0 L 28.7 L MCV 81.4 83.5 MCH 26.3 L 26.5 L MCHC 32.4 31.7 L RDW 19.1 H 20.0 H Plt Count 100 L 81 L MPV 8.4 8.6 Prelim Diff (Auto) Slide review pending Slide review pending Neut % (Auto) 78.0 H 80.0 H Lymph % (Auto) 6.7 L 9.1 [place] % (Auto) 11.2 H 4.8 Eos % (Auto) 2.8 5.0 H Baso % (Auto) 1.3 1.1 Neut # (Auto) 1.9 1.7 L Lymph # (Auto) 0.2 L 0.2 L [place] # (Auto) 0.3 0.1 Eos # (Auto) 0.1 0.1 Baso # (Auto) 0.0 0.0 WBC Differential Manual diff final Manual diff final Seg Neuts % (Manual) 74 H 65 Band Neuts % (Manual) 10 H 22 H Lymphocytes % (Manual) 7 L 9 Monocytes % (Manual) 7 2 Eosinophils % (Manual) 1 Basophils % (Manual) 1 2 Abs Neuts (Manual) 2.0 1.8 Differential Comment . . Toxic Granulation 1+ H 2+ H Platelet Estimate Low L Low L Platelet Morphology Enlarged H Normal Tear Drop Cells 1+ H Ovalocytes 1+ H Acanthocytes (Spur) 1+ H Lab - Chemistry Results 02/07/18 02/08/18 02/08/18 06:15 06:08 14:23 Sodium 141 141 Potassium 3.4 L 3.5 Chloride 109 H 106 Carbon Dioxide 22.2 24.2 Anion Gap 10 11 BUN 31 H 35 H Creatinine 10.53 H* 10.30 H* Estimated GFR 6 L 6 L Random Glucose 86 76 Lactic Acid 1.7 Calcium 6.6 L* 7.1 L* Prot Corrected Calcium 7.8 L 8.2 L Phosphorus 3.2 D 3.4 Magnesium 1.7 1.7 Total Bilirubin 0.3 0.8 AST 48 H 54 H ALT 13 14 Alkaline Phosphatase 61 68 Total Protein 4.8 L 5.0 L Albumin 1.4 L 1.5 L Cortisol 02/08/18 14:23 Sodium Potassium Chloride Carbon Dioxide Anion Gap BUN Creatinine Estimated GFR Random Glucose Lactic Acid Calcium Prot Corrected Calcium Phosphorus Magnesium Total Bilirubin AST ALT Alkaline Phosphatase Total Protein Albumin Cortisol 19.1 Imaging: ITS Impressions Chest X-Ray 02/02/18 18:47 CONCLUSION: No evidence of acute cardiopulmonary disease. Head CT 02/02/18 19:49 CONCLUSION: 1. No acute intracranial abnormality demonstrated. 2. Mild chronic white matter changes. . Physical Exam: GENERAL: Well-nourished well-developed, not in acute distress SKIN: Cool and dry, no generalized rash. HEAD: Atraumatic. Normocephalic. No temporal or scalp tenderness. EYES: Pupils equal round and reactive. Scleral icterus. No injection or drainage. No petechia ENT: Nothing abnormal detected NECK: Trachea midline. Supple, nontender, no meningeal signs. CARDIOVASCULAR: HS audible. RESPIRATORY: Clear to auscultation bilaterally. GASTROINTESTINAL: Abdomen soft nontender. PD catheter insertion site with no evidence of infection. No guarding no rigidity. MUSCULOSKELETAL: Extremities without clubbing, cyanosis. NEUROLOGICAL: Alert oriented 3. Nonfocal. Psych cooperative IV line sites ok. Assessment and Plan - Plan Rule out sepsis due to hypotension. Suspect sepsis is probably from poor oral intake as well as ongoing losses from diarrhea. Oral thrush, possible Kayla esophagitis. Rule out herpetic esophagitis. Diarrhea: Gastroenteritis workup pending, age-related diarrheal illness causes need to be ruled out such as AFB, cryptosporidium, Giardia etc. HIV AIDS. Oral thrush is AIDS defining illness. Acute on chronic renal failure: Prerenal component, r/o HIV Nephropathy Hypokalemia likely secondary to poor oral intake as well as ongoing losses from diarrhea Questionable compliance with PT as well as HIV medications. Hypotension: Rule out sepsis, prerenal. Rule out disseminated Mycobacterium avium-intracellulare infection involving adrenal glands as a cause. Recs: One time dose of Pentamidine nebulizer one time dose if CD4 low will follow and decide. Continue Oral Clarithro, Ethambutol, Rifampin for Disseminated LULU. Follow AFB blood cultures. Above regimen for suspected disseminated LULU infection given patients CD4 count is less than 24 and has very resistant virus. jarrett Mccallum his past HIV doctor who he will need to follow up with. Continue Diflucan IV Follow GI procedure biopsy path Check HIV genotype. Patient had unprotected sex with his partner high risk for mutation as well as patient is noncompliant with HIV medication. Follow cultures Follow clinical course Based on exam bedside doubt new sepsis as clinically stable. Suspect the fever and tachycardia are from untreated HIV as well as disseminated LULU. If fevers persist will get PD cath cultures. jarrett Wang
--- NOTE | 2018-02-08 21:58 | P.PNIM ---
Subjective Interval history: patient seen today around 3 PM. Actually says he is feeling all right. Chest pain, shortness breath, abdominal pain Patient did have fever as well as heart rate spiking into 120s. Discussed with infectious disease. Blood cultures are pending. Physical Exam Vital signs: Vital Signs 02/07/18 23:29 02/08/18 00:00 02/08/18 04:00 Temperature 98.5 F 98.2 F Pulse Rate 89 81 80 Respiratory Rate 16 18 Blood Pressure 117/82 113/81 Pulse Oximetry 100 100 02/08/18 08:00 02/08/18 12:00 02/08/18 13:17 Temperature 100.3 F H 98.1 F 101.6 F H Pulse Rate 79 111 H 120 H Respiratory Rate 17 17 18 Blood Pressure 137/93 H 113/87 123/83 Pulse Oximetry 99 98 98 02/08/18 16:00 Temperature 98.1 F Pulse Rate 90 Respiratory Rate 16 Blood Pressure 115/82 Pulse Oximetry 98 Intake & Output 02/08/18 02/08/18 02/09/18 06:59 18:59 06:59 Intake Total 492 / 492 1460 / 1460 Output Total 150 / 150 Balance 342 / 342 1460 / 1460 Weight 63.6 kg Intake: IV 50 / 50 1000 / 1000 Diflucan 100 mg Premix Bag 50 50 / 50 ML @ 50 mls/hr IV.SIG Q24H PIERRE Rx#:[id number] NS Inj 1,000 ML @ 1000 mls/hr 1000 / 1000 IV.SIG BOLUS PIERRE Rx#:[id number] Oral 442 / 442 460 / 460 Output: Urine 150 / 150 Other: # Voids 3 Date of Last Bowel Movement 02/08/18 # Incontinent Bowel Movements 1 Narrative: GENERAL: patient lying in bed. Appears comfortable. SKIN: Warm and dry. HEAD: Normocephalic. EYES: No scleral icterus. No injection or drainage. NECK: Supple, trachea midline. No JVD . CARDIOVASCULAR: Regular rate and rhythm without murmurs, gallops, or rubs. RESPIRATORY: Breath sounds equal bilaterally. No accessory muscle use. GASTROINTESTINAL: Abdomen soft, non-tender, nondistended. no rebound or guarding. MUSCULOSKELETAL: No cyanosis, or edema. BACK: Nontender without obvious deformity. No CVA tenderness. Results - Labs CBC & Chem 7: 02/08/18 06:08 02/08/18 06:08 Laboratory Results - last 24 hr 02/04/18 02/08/18 02/08/18 03:38 06:08 06:08 WBC 2.1 L RBC 3.43 L Hgb 9.1 L Hct 28.7 L MCV 83.5 MCH 26.5 L MCHC 31.7 L RDW 20.0 H Plt Count 81 L MPV 8.6 Prelim Diff (Auto) Slide review pending Neut % (Auto) 80.0 H Lymph % (Auto) 9.1 [place] % (Auto) 4.8 Eos % (Auto) 5.0 H Baso % (Auto) 1.1 Neut # (Auto) 1.7 L Lymph # (Auto) 0.2 L [place] # (Auto) 0.1 Eos # (Auto) 0.1 Baso # (Auto) 0.0 WBC Differential Manual diff final Seg Neuts % (Manual) 65 Band Neuts % (Manual) 22 H Lymphocytes % (Manual) 9 Monocytes % (Manual) 2 Basophils % (Manual) 2 Abs Neuts (Manual) 1.8 Differential Comment . Toxic Granulation 2+ H Platelet Estimate Low L Platelet Morphology Normal Tear Drop Cells 1+ H Ovalocytes 1+ H Acanthocytes (Spur) 1+ H Sodium 141 Potassium 3.5 Chloride 106 Carbon Dioxide 24.2 Anion Gap 11 BUN 35 H Creatinine 10.30 H* Estimated GFR 6 L Random Glucose 76 Lactic Acid Calcium 7.1 L* Prot Corrected Calcium 8.2 L Phosphorus 3.4 Magnesium 1.7 Total Bilirubin 0.8 AST 54 H ALT 14 Alkaline Phosphatase 68 Total Protein 5.0 L Albumin 1.5 L Cortisol HIV-1 Genotyping Interp HIV Zidovudine Resist Susc HIV Stavudine Resist Susc HIV Lamivudine Resist Susc HIV Didanosine Resist Susc HIV Tenofovir Resist Susc HIV Abacavir Resist Susc HIV Efavirenz Resist Susc HIV Nevirapine Resist Susc HIV Etravirine Resist Susc HIV Nucleos RT Inhibit T69a Non-Nucl RT Inhibitors V106i Assoc Protease Mutation See below Fosamprenavir Resist Susc Atazanavir w Ritonavir Susc Indinavir w Ritonavir Susc HIV Nelfinavir Resist Susc Lopinavir w Ritonavir Susc HIV Rilpivirine Resist Susc Saquinavir w Ritonavir Susc Tipranavir w Ritonavir Susc Darunavir w Ritonavir Susc Emtricitabine Resis Susc 02/08/18 02/08/18 14:23 14:23 WBC RBC Hgb Hct MCV MCH MCHC RDW Plt Count MPV Prelim Diff (Auto) Neut % (Auto) Lymph % (Auto) [place] % (Auto) Eos % (Auto) Baso % (Auto) Neut # (Auto) Lymph # (Auto) [place] # (Auto) Eos # (Auto) Baso # (Auto) WBC Differential Seg Neuts % (Manual) Band Neuts % (Manual) Lymphocytes % (Manual) Monocytes % (Manual) Basophils % (Manual) Abs Neuts (Manual) Differential Comment Toxic Granulation Platelet Estimate Platelet Morphology Tear Drop Cells Ovalocytes Acanthocytes (Spur) Sodium Potassium Chloride Carbon Dioxide Anion Gap BUN Creatinine Estimated GFR Random Glucose Lactic Acid 1.7 Calcium Prot Corrected Calcium Phosphorus Magnesium Total Bilirubin AST ALT Alkaline Phosphatase Total Protein Albumin Cortisol 19.1 HIV-1 Genotyping HIV Zidovudine Resist HIV Stavudine Resist HIV Lamivudine Resist HIV Didanosine Resist HIV Tenofovir Resist HIV Abacavir Resist HIV Efavirenz Resist HIV Nevirapine Resist HIV Etravirine Resist HIV Nucleos RT Inhibit Non-Nucl RT Inhibitors Assoc Protease Mutation Fosamprenavir Resist Atazanavir w Ritonavir Indinavir w Ritonavir HIV Nelfinavir Resist Lopinavir w Ritonavir HIV Rilpivirine Resist Saquinavir w Ritonavir Tipranavir w Ritonavir Darunavir w Ritonavir Emtricitabine Resis Microbiology 02/04/18 03:38 Blood - Peripheral Aerobic Blood Culture - Preliminary No growth in 4 days 02/04/18 03:38 Blood - Peripheral Anaerobic Blood Culture - Preliminary No growth in 4 days Assessment and Plan - Assessment (1) ESRD on peritoneal dialysis Code(s): N18.6 - End stage renal disease; Z99.2 - Dependence on renal dialysis Status: Acute (2) Diarrhea Code(s): R19.7 - Diarrhea, unspecified Status: Acute (3) HIV (human immunodeficiency virus infection) Code(s): B20 - Human immunodeficiency virus [HIV] disease Status: Acute (4) Thrush Code(s): B37.0 - Candidal stomatitis Status: Acute (5) Hypokalemia Code(s): E87.6 - Hypokalemia Status: Acute - Plan 52-year-old male with history of HIV and ESRD on PD admitted overnight with generalized weakness, decreased appetite, nausea, and vomiting found to have significant hypokalemia and acute on chronic renal failure. // ESRD on PD - acute on chronic - Patient follows with Dr. Shah - Creatinine back in February ~ and was 13.53 on admission -Likely secondary to decreased PO intake - Continue IV hydration with potassium supplement, watch for fluid overload - Nephrology following - Continue PD - Avoid nephrotoxic agents and renally dose meds //HIV - Last CD4 <20 on 03/09/17 - Noncompliant with f/u and taking antiretrovirals - Not on any prophylaxis. Started on Azithromycin but holding Bactrim secondary to his renal function - CD4 count and viral load pending - ID following // Hypokalemia - Improving - Possibly secondary to GI losses from diarrhea - Continue to replace and follow level closely - Mg WNL - Phosphorous low, start K-Phos - Monitor on tele //sepsis // Diarrhea //Suspected disseminated LULU. - Check stool studies, enteric pathogens currently pending - C. diff negative - GI following -EGD colonoscopy revealed gastritis, duodenitis and internal hemorrhoids Stools more formed, continue supportive care, IV fluid hydration -ID following. Appreciate assistance. = 02/07. Discussed with infectious disease. Blood AFB ordered and pending. =04/10. White blood cell count 2.1, tachycardic heart rate 120, fever 101.2. Repeat blood cultures. Discussed with infectious disease. Continue antibiotics for disseminated LULU as above // Anemia of chronic disease - Secondary to ESRD and HIV - Patient also having some bloody, mucous-like diarrhea which may be causing an acute anemia component -Hemoglobin stable // Thrush, odynophagia - Continue PO Diflucan add Magic mouthwash -Status post EGD with duodenitis and gastritis, start PPI = 02/07. Discussed with infectious disease. Esophageal biopsies pending. //Possible contact dermatitis1% hydrocortisone cream DVT prophylaxis: heparin, Discharge Planning: Home when cleared by nephrology and ID.
[2018-02-09 02:52] LABS: Toxoplasma Ab, IgM Negative (Negative)
[2018-02-09] MEDS: Calcium Carbonate 500 MG Tablet PO SCH ×2 (09:21→21:33)
[2018-02-09] MEDS: Senna/Docusate Sodium 8.6/50 MG Tablet PO SCH ×2 (09:21→21:30)
[2018-02-09] MEDS: Potassium Phosphate 500 MG Soluble Tablet PO SCH (09:21)
[2018-02-09] MEDS: Nystatin/Diphenhydramine/Lidocaine Mouthwash (Adult) 120 ML Botttle SWISH-SWAL SCH ×4 (09:23→22:58)
--- NOTE | 2018-02-09 13:09 | P.PNNP ---
Subjective Interval history: Patient is alert, no abd. pain, diarrhea is better, no vomiting. Physical Exam Vital signs: Vital Signs 02/08/18 13:17 02/08/18 16:00 02/08/18 20:00 Temperature 101.6 F H 98.1 F 101.6 F H Pulse Rate 120 H 90 112 H Respiratory Rate 18 Blood Pressure 123/83 115/82 130/81 Pulse Oximetry 98 98 97 02/09/18 00:00 02/09/18 04:00 02/09/18 08:00 Temperature 99.4 F 98.3 F 101.6 F H Pulse Rate 107 H 88 112 H Respiratory Rate 18 Blood Pressure 115/75 113/75 116/70 Pulse Oximetry 97 100 97 Intake & Output 02/08/18 02/09/18 02/09/18 18:59 06:59 18:59 Intake Total 1460 / 1460 800 / 800 Output Total 200 / 200 746 / 746 Balance 1460 / 1460 600 / 600 -746 / -746 Weight 67.4 kg Intake: IV 1000 / 1000 50 / 50 Diflucan 100 mg Premix Bag 50 50 / 50 ML @ 50 mls/hr IV.SIG Q24H PIERRE Rx#:[id number] NS Inj 1,000 ML @ 1000 mls/hr 1000 / 1000 IV.SIG BOLUS PIERRE Rx#:[id number] Oral 460 / 460 750 / 750 Output: Urine 200 / 200 100 / 100 Stool 0 / 0 Peritoneal Amount 646 / 646 Other: # Voids 3 Date of Last Bowel Movement 02/08/18 # Incontinent Bowel Movements 1 Narrative: GENERAL: patient lying in bed. Appears comfortable. SKIN: Warm and dry. HEAD: Normocephalic. EYES: No scleral icterus. No injection or drainage. NECK: Supple, trachea midline. No JVD . CARDIOVASCULAR: Regular rate and rhythm without murmurs, gallops, or rubs. RESPIRATORY: Breath sounds equal bilaterally. No accessory muscle use. GASTROINTESTINAL: Abdomen soft, non-tender, nondistended. no rebound or guarding. MUSCULOSKELETAL: No cyanosis, or edema. BACK: Nontender without obvious deformity. No CVA tenderness. Assessment and Plan - Assessment (1) ESRD on peritoneal dialysis Code(s): N18.6 - End stage renal disease; Z99.2 - Dependence on renal dialysis Status: Acute Plan: Patient with End stage renal disease, on PD, history of HIV, was admitted with dehydration, diarrhea, and electrolyte imbalance. K is now better with replacement., encourage oral intake. Continue Diflucan, continue PD. ID following, continue antibiotics. (2) Diarrhea Code(s): R19.7 - Diarrhea, unspecified Status: Acute Plan: Follow with GI, ID. Reports improvement in diarrhea (3) HIV (human immunodeficiency virus infection) Code(s): B20 - Human immunodeficiency virus [HIV] disease Status: Acute Plan: non-compliance, follow with ID (4) Thrush Code(s): B37.0 - Candidal stomatitis Status: Acute (5) Hypokalemia Code(s): E87.6 - Hypokalemia Status: Acute Plan: Due to poor PO intake, GI losses The patient presented with significant hypokalemia with a potassium of 1.9 at the time of admission. Improved - Plan ti
[2018-02-09 14:11] LABS: Hemoglobin 8.2 gm/dL (13.0-17.0); Mean Corpuscular HGB Conc 31.7 % (32.0-36.0); Mean Corpuscular Hemoglobin 26.3 pg (27.0-34.0); Mean Corpuscular Volume 82.9 fL (80.0-100.0); Mean Platelet Volume 8.1 fL (7.0-11.0); Platelet Count 77 th/mm3 (150-450); Red Blood Count 3.13 mil/mm3 (4.50-5.90); Red Cell Distribution Width 20.1 % (11.6-17.2); White Blood Count 2.7 th/mm3 (4.0-11.0)
--- NOTE | 2018-02-09 18:32 | P.PNIM ---
Subjective Interval history: Says he is actually feeling well. Denies any chest pain or shortness of breath. Still with fevers of 101.6 today. Physical Exam Vital signs: Vital Signs 02/08/18 20:00 02/09/18 00:00 02/09/18 04:00 Temperature 101.6 F H 99.4 F 98.3 F Pulse Rate 112 H 107 H 88 Respiratory Rate 18 18 19 Blood Pressure 130/81 115/75 113/75 Pulse Oximetry 97 97 100 02/09/18 08:00 02/09/18 12:00 Temperature 101.6 F H 99.0 F Pulse Rate 112 H 97 H Respiratory Rate 18 18 Blood Pressure 116/70 128/76 Pulse Oximetry 97 97 Intake & Output 02/08/18 02/09/18 02/09/18 18:59 06:59 18:59 Intake Total 1460 / 1460 800 / 800 Output Total 200 / 200 746 / 746 Balance 1460 / 1460 600 / 600 -746 / -746 Weight 67.4 kg Intake: IV 1000 / 1000 50 / 50 Diflucan 100 mg Premix Bag 50 50 / 50 ML @ 50 mls/hr IV.SIG Q24H [facility] Rx#:[id number] NS Inj 1,000 ML @ 1000 mls/hr 1000 / 1000 IV.SIG BOLUS [facility] Rx#:[id number] Oral 460 / 460 750 / 750 Output: Urine 200 / 200 100 / 100 Stool 0 / 0 Peritoneal Amount 646 / 646 Other: # Voids 3 Date of Last Bowel Movement 02/08/18 # Incontinent Bowel Movements 1 Narrative: GENERAL: patient lying in bed. Appears comfortable. SKIN: Warm and dry. HEAD: Normocephalic. EYES: No scleral icterus. No injection or drainage. NECK: Supple, trachea midline. No JVD . CARDIOVASCULAR: Regular rate and rhythm without murmurs, gallops, or rubs. RESPIRATORY: Breath sounds equal bilaterally. No accessory muscle use. GASTROINTESTINAL: Abdomen soft, non-tender, nondistended. Still with no rebound or guarding. MUSCULOSKELETAL: No cyanosis, or edema. BACK: Nontender without obvious deformity. No CVA tenderness. Results - Labs CBC & Chem 7: 02/09/18 13:54 02/08/18 06:08 Laboratory Results - last 24 hr 02/07/18 02/09/18 17:41 13:54 WBC 2.7 L RBC 3.13 L Hgb 8.2 L Hct 26.0 L MCV 82.9 MCH 26.3 L MCHC 31.7 L RDW 20.1 H Plt Count 77 L MPV 8.1 Toxoplasma IgM Ab Negative Microbiology 02/08/18 14:23 Blood - Peripheral Aerobic Blood Culture - Preliminary No growth in 1 day 02/08/18 14:23 Blood - Peripheral Anaerobic Blood Culture - Preliminary No growth in 1 day 02/08/18 14:23 Blood - Peripheral Aerobic Blood Culture - Preliminary No growth in 1 day 02/08/18 14:23 Blood - Peripheral Anaerobic Blood Culture - Preliminary No growth in 1 day 02/04/18 03:38 Blood - Peripheral Aerobic Blood Culture - Final No growth in 5 days 02/04/18 03:38 Blood - Peripheral Anaerobic Blood Culture - Final No growth in 5 days Assessment and Plan - Assessment (1) ESRD on peritoneal dialysis Code(s): N18.6 - End stage renal disease; Z99.2 - Dependence on renal dialysis Status: Acute (2) Diarrhea Code(s): R19.7 - Diarrhea, unspecified Status: Acute (3) HIV (human immunodeficiency virus infection) Code(s): B20 - Human immunodeficiency virus [HIV] disease Status: Acute (4) Thrush Code(s): B37.0 - Candidal stomatitis Status: Acute (5) Hypokalemia Code(s): E87.6 - Hypokalemia Status: Acute - Plan 52-year-old male with history of HIV and ESRD on PD admitted overnight with generalized weakness, decreased appetite, nausea, and vomiting found to have significant hypokalemia and acute on chronic renal failure. // ESRD on PD - acute on chronic - Patient follows with Dr. Shah - Creatinine back in February ~ and was 13.53 on admission -Likely secondary to decreased PO intake - Continue IV hydration with potassium supplement, watch for fluid overload - Nephrology following - Continue PD - Avoid nephrotoxic agents and renally dose meds //HIV - Last CD4 <20 on 03/09/17 - Noncompliant with f/u and taking antiretrovirals - Not on any prophylaxis. Started on Azithromycin but holding Bactrim secondary to his renal function - CD4 count and viral load pending - ID following // Hypokalemia - Improving - Possibly secondary to GI losses from diarrhea - Continue to replace and follow level closely - Mg WNL - Phosphorous low, start K-Phos - Monitor on tele //sepsis // Diarrhea //Suspected disseminated LULU. - Check stool studies, enteric pathogens currently pending - C. diff negative - GI following -EGD colonoscopy revealed gastritis, duodenitis and internal hemorrhoids Stools more formed, continue supportive care, IV fluid hydration -ID following. Appreciate assistance. = 02/07. Discussed with infectious disease. Blood AFB ordered and pending. =04/10. White blood cell count 2.1, tachycardic heart rate 120, fever 101.2. Repeat blood cultures. Discussed with infectious disease. Continue antibiotics for disseminated LULU as above = 04/11. Still with fevers. Continue antibiotics as per infectious disease. Repeat cultures from 02/09-. Continue to monitor. // Anemia of chronic disease - Secondary to ESRD and HIV - Patient also having some bloody, mucous-like diarrhea which may be causing an acute anemia component -Hemoglobin stable // Thrush, odynophagia - Continue PO Diflucan add Magic mouthwash -Status post EGD with duodenitis and gastritis, start PPI = 02/07. Discussed with infectious disease. Esophageal biopsies pending. = Esophageal biopsies negative for malignancy or infection, however duodenal biopsies indicate disseminated Mycobacterium avium. //Possible contact dermatitis1% hydrocortisone cream DVT prophylaxis: heparin, Discharge Planning: Home when cleared by nephrology and ID.
[2018-02-10] MEDS: Nystatin/Diphenhydramine/Lidocaine Mouthwash (Adult) 120 ML Botttle SWISH-SWAL SCH ×4 (10:45→22:54)
[2018-02-10] MEDS: Potassium Phosphate 500 MG Soluble Tablet PO SCH (10:48)
[2018-02-10] MEDS: Calcium Carbonate 500 MG Tablet PO SCH ×2 (10:49→22:53)
[2018-02-10] MEDS: Senna/Docusate Sodium 8.6/50 MG Tablet PO SCH ×2 (10:50→22:54)
--- NOTE | 2018-02-10 11:52 | P.PNNP ---
Subjective Interval history: PD nightly, tolerating well. Denies any shortness of breath, vomiting, or diarrhea. Afebrile overnight. Reports some mild nausea. <Karolyn Jolly - Last Filed: 02/10/18 11:47> Physical Exam Vital signs: Vital Signs 02/09/18 12:00 02/09/18 16:00 02/09/18 20:00 Temperature 99.0 F 99.0 F 98.3 F Pulse Rate 104 H 90 95 H Respiratory Rate 18 18 17 Blood Pressure 128/76 123/65 116/77 Pulse Oximetry 97 100 100 02/10/18 00:00 02/10/18 03:46 02/10/18 04:00 Temperature 98.2 F 99.2 F Pulse Rate 77 99 H 93 H Respiratory Rate 19 18 Blood Pressure 124/79 126/76 Pulse Oximetry 100 100 02/10/18 08:00 Temperature 99.0 F Pulse Rate 96 H Respiratory Rate 18 Blood Pressure 123/71 Pulse Oximetry 99 Intake & Output 02/09/18 02/10/18 02/10/18 18:59 06:59 18:59 Intake Total 1050 / 1050 Output Total 746 / 746 1937 / 1937 Balance -746 / -746 -887 / -887 Weight 66.1 kg Intake: IV 50 / 50 Diflucan 100 mg Premix Bag 50 50 / 50 ML @ 50 mls/hr IV.SIG Q24H [facility] Rx#:[id number] Oral 1000 / 1000 Output: Urine 100 / 100 1000 / 1000 Peritoneal Amount 646 / 646 937 / 937 Other: # Voids 3 Narrative: GENERAL: Alert and oriented. Appears comfortable. SKIN: Warm and dry. NECK: Supple, trachea midline. No JVD . CARDIOVASCULAR: Regular rate and rhythm without murmurs, gallops, or rubs. RESPIRATORY: Breath sounds equal bilaterally. No accessory muscle use. GASTROINTESTINAL: Abdomen soft, non-tender, nondistended. Still with no rebound or guarding. PD catheter with dressing intact. MUSCULOSKELETAL: No cyanosis, or edema. <Karolyn Jolly - Last Filed: 02/10/18 11:47> Vital signs: Vital Signs 02/12/18 00:00 02/12/18 04:00 02/12/18 08:00 Temperature 98.8 F 97.8 F 98.6 F Pulse Rate 90 84 83 Respiratory Rate 16 16 18 Blood Pressure 116/78 97/61 L 111/73 Pulse Oximetry 99 99 99 02/12/18 09:00 02/12/18 12:00 02/12/18 13:00 Temperature 98.6 F Pulse Rate 86 84 89 Respiratory Rate 18 Blood Pressure 124/84 Pulse Oximetry 99 02/12/18 16:00 02/12/18 17:00 Temperature 98 F Pulse Rate 85 87 Respiratory Rate 16 Blood Pressure 116/73 Pulse Oximetry 97 Intake & Output 02/12/18 02/12/18 02/13/18 06:59 18:59 06:59 Intake Total 100 / 100 1740 / 1740 Output Total 1150 / 1150 Balance 100 / 100 590 / 590 Weight 63 kg Intake: IV 100 / 100 Diflucan 100 mg Premix Bag 50 100 / 100 ML @ 50 mls/hr IV.SIG Q24H [facility] Rx#:[id number] Oral 1740 / 1740 Output: Urine 1150 / 1150 Other: Date of Last Bowel Movement 02/11/18 02/11/18 # Bowel Movements 0 <Jonathan Shah Q - Last Filed: 02/12/18 21:12> Assessment and Plan - Assessment (1) ESRD on peritoneal dialysis Code(s): N18.6 - End stage renal disease; Z99.2 - Dependence on renal dialysis Status: Acute Plan: Patient with End stage renal disease, on PD, history of HIV, was admitted with dehydration, diarrhea, and electrolyte imbalance. K is now better on replacement., encourage oral intake. Continue antibiotics Continue PD nightly, UF 1.5 liters last night. Labs in AM (2) Diarrhea Code(s): R19.7 - Diarrhea, unspecified Status: Acute Plan: Follow with GI, ID. Reports improvement in diarrhea (3) HIV (human immunodeficiency virus infection) Code(s): B20 - Human immunodeficiency virus [HIV] disease Status: Acute Plan: non-compliance, follow with ID (4) Thrush Code(s): B37.0 - Candidal stomatitis Status: Acute (5) Hypokalemia Code(s): E87.6 - Hypokalemia Status: Acute Plan: Due to poor PO intake, GI losses The patient presented with significant hypokalemia with a potassium of 1.9 at the time of admission. Improved Labs in AM <Karolyn Jolly - Last Filed: 02/10/18 11:47> - Assessment (1) ESRD on peritoneal dialysis Code(s): N18.6 - End stage renal disease; Z99.2 - Dependence on renal dialysis Status: Acute Plan: Patient seen and examined, agree with above. PD working well with 1.5 liters UF. Encourage oral intake and told to eat more K. (2) Diarrhea Code(s): R19.7 - Diarrhea, unspecified Status: Acute (3) HIV (human immunodeficiency virus infection) Code(s): B20 - Human immunodeficiency virus [HIV] disease Status: Acute (4) Thrush Code(s): B37.0 - Candidal stomatitis Status: Acute (5) Hypokalemia Code(s): E87.6 - Hypokalemia Status: Acute <Leonides Shah - Last Filed: 02/12/18 21:12>
--- NOTE | 2018-02-10 15:30 | P.PNIM ---
Subjective Interval history: Patient seen today around 1:30 PM. Says he is feeling all right. Denies any chest pain, shortness of breath, nausea, vomiting, diarrhea, constipation. Physical Exam Vital signs: Vital Signs 02/09/18 16:00 02/09/18 20:00 02/10/18 00:00 Temperature 99.0 F 98.3 F 98.2 F Pulse Rate 90 95 H 77 Respiratory Rate 18 17 19 Blood Pressure 123/65 116/77 124/79 Pulse Oximetry 100 100 100 02/10/18 03:46 02/10/18 04:00 02/10/18 08:00 Temperature 99.2 F 99.0 F Pulse Rate 99 H 93 H 96 H Respiratory Rate 18 18 Blood Pressure 126/76 123/71 Pulse Oximetry 100 99 02/10/18 12:00 Temperature 98.4 F Pulse Rate 91 H Respiratory Rate 18 Blood Pressure 120/71 Pulse Oximetry 100 Intake & Output 02/09/18 02/10/18 02/10/18 18:59 06:59 18:59 Intake Total 1050 / 1050 Output Total 746 / 746 1937 / 1937 Balance -746 / -746 -887 / -887 Weight 66.1 kg Intake: IV 50 / 50 Diflucan 100 mg Premix Bag 50 50 / 50 ML @ 50 mls/hr IV.SIG Q24H [facility] Rx#:[id number] Oral 1000 / 1000 Output: Urine 100 / 100 1000 / 1000 Peritoneal Amount 646 / 646 937 / 937 Other: # Voids 3 Date of Last Bowel Movement 02/10/18 Narrative: GENERAL: Patient lying in bed. Appears comfortable. SKIN: Warm and dry. HEAD: Normocephalic. EYES: No scleral icterus. No injection or drainage. NECK: Supple, trachea midline. No JVD. CARDIOVASCULAR: Regular rate and rhythm without murmurs, gallops, or rubs. RESPIRATORY: Breath sounds equal bilaterally. No accessory muscle use. GASTROINTESTINAL: Abdomen soft, non-tender, nondistended. MUSCULOSKELETAL: No cyanosis, or edema. BACK: Nontender without obvious deformity. No CVA tenderness. Results - Labs CBC & Chem 7: 02/09/18 13:54 02/08/18 06:08 Microbiology 02/03/18 17:40 Blood - Peripheral Blood Fungal Culture - Preliminary No growth in 1 week 02/03/18 17:40 Blood - Peripheral Blood Fungal Culture - Preliminary No growth in 1 week 02/08/18 14:23 Blood - Peripheral Aerobic Blood Culture - Preliminary No growth in 2 days 02/08/18 14:23 Blood - Peripheral Anaerobic Blood Culture - Preliminary No growth in 2 days 02/08/18 14:23 Blood - Peripheral Aerobic Blood Culture - Preliminary No growth in 2 days 02/08/18 14:23 Blood - Peripheral Anaerobic Blood Culture - Preliminary No growth in 2 days 02/04/18 03:38 Blood - Peripheral Aerobic Blood Culture - Final No growth in 5 days 02/04/18 03:38 Blood - Peripheral Anaerobic Blood Culture - Final No growth in 5 days Assessment and Plan - Assessment (1) ESRD on peritoneal dialysis Code(s): N18.6 - End stage renal disease; Z99.2 - Dependence on renal dialysis Status: Acute (2) Diarrhea Code(s): R19.7 - Diarrhea, unspecified Status: Acute (3) HIV (human immunodeficiency virus infection) Code(s): B20 - Human immunodeficiency virus [HIV] disease Status: Acute (4) Thrush Code(s): B37.0 - Candidal stomatitis Status: Acute (5) Hypokalemia Code(s): E87.6 - Hypokalemia Status: Acute - Plan 52-year-old male with history of HIV and ESRD on PD admitted overnight with generalized weakness, decreased appetite, nausea, and vomiting found to have significant hypokalemia and acute on chronic renal failure. // ESRD on PD - acute on chronic - Patient follows with Dr. Shah - Creatinine back in February and was 13.53 on admission -Likely secondary to decreased PO intake - Continue IV hydration with potassium supplement, watch for fluid overload - Nephrology following - Continue PD - Avoid nephrotoxic agents and renally dose meds //HIV - Last CD4 <20 on 03/09/17 - Noncompliant with f/u and taking antiretrovirals - Not on any prophylaxis. Started on Azithromycin but holding Bactrim secondary to his renal function - CD4 count and viral load pending - ID following // Hypokalemia - Improving - Possibly secondary to GI losses from diarrhea - Continue to replace and follow level closely - Mg WNL - Phosphorous low, start K-Phos - Monitor on tele //sepsis // Diarrhea //Suspected disseminated LULU. - Check stool studies, enteric pathogens currently pending - C. diff negative - GI following -EGD colonoscopy revealed gastritis, duodenitis and internal hemorrhoids Stools more formed, continue supportive care, IV fluid hydration -ID following. Appreciate assistance. = 02/07. Discussed with infectious disease. Blood AFB ordered and pending. =04/10. White blood cell count 2.1, tachycardic heart rate 120, fever 101.2. Repeat blood cultures. Discussed with infectious disease. Continue antibiotics for disseminated LULU as above = 04/11. Still with fevers. Continue antibiotics as per infectious disease. Repeat cultures from 02/09-. Continue to monitor. = 04/12. No fevers today. Cultures from 02/08- today. Continue to monitor. Continue antibiotics for disseminated LULU. Appreciate ID assistance. // Anemia of chronic disease - Secondary to ESRD and HIV - Patient also having some bloody, mucous-like diarrhea which may be causing an acute anemia component -Hemoglobin stable // Thrush, odynophagia - Continue PO Diflucan add Magic mouthwash -Status post EGD with duodenitis and gastritis, start PPI = 02/07. Discussed with infectious disease. Esophageal biopsies pending. = Esophageal biopsies negative for malignancy or infection, however duodenal biopsies indicate disseminated Mycobacterium avium. //Possible contact dermatitis1% hydrocortisone cream DVT prophylaxis: heparin, Discharge Planning: Home when cleared by nephrology and ID.
[2018-02-10] MEDS ORDERED: Diatrizoate Meglum/Diatrizoate Sod Liq 9 ML UDC PO ONE (18:00)
[2018-02-11 09:40] LABS: Hematocrit 24.7 % (39.0-51.0); Hemoglobin 7.8 gm/dL (13.0-17.0); Mean Corpuscular HGB Conc 31.6 % (32.0-36.0); Mean Corpuscular Hemoglobin 25.9 pg (27.0-34.0); Mean Platelet Volume 8.7 fL (7.0-11.0); Platelet Count 78 th/mm3 (150-450); Red Blood Count 3.02 mil/mm3 (4.50-5.90); Red Cell Distribution Width 19.6 % (11.6-17.2); White Blood Count 1.8 th/mm3 (4.0-11.0)
[2018-02-11] MEDS: Calcium Carbonate 500 MG Tablet PO SCH ×2 (09:57→20:27)
[2018-02-11] MEDS: Potassium Phosphate 500 MG Soluble Tablet PO SCH (09:57)
[2018-02-11] MEDS: Senna/Docusate Sodium 8.6/50 MG Tablet PO SCH ×2 (09:58→20:28)
[2018-02-11] MEDS: Nystatin/Diphenhydramine/Lidocaine Mouthwash (Adult) 120 ML Botttle SWISH-SWAL SCH ×4 (09:58→20:28)
[2018-02-11 10:06] LABS: Albumin 1.3 g/dL (3.4-5.0); Carbon Dioxide 26.4 meq/L (21.0-32.0); Phosphorus 4.4 mg/dL (2.5-4.9); Potassium 3.4 meq/L (3.5-5.1)
[2018-02-11 10:12] LABS: Calcium 6.9 mg/dL (8.5-10.1)
[2018-02-11 10:46] LABS: Eosinophils 2 % (0-4); Lymphocytes 3 % (9-44); Monocytes 7 % (0-8); Ovalocytes 1+; Platelet Morphology Normal (Normal)
--- NOTE | 2018-02-11 11:19 | P.PNNP ---
Subjective Interval history: Doing well. PD nightly. Denies any shortness of breath, nausea, vomiting, or diarrhea. VSS and afebrile overnight. <Karolyn Jolly - Last Filed: 02/11/18 11:14> Physical Exam Vital signs: Vital Signs 02/10/18 12:00 02/10/18 16:00 02/10/18 20:00 Temperature 98.4 F 98.1 F 99.1 F Pulse Rate 77 83 97 H Respiratory Rate 17 Blood Pressure 120/71 111/70 112/67 Pulse Oximetry 100 100 100 02/10/18 20:13 02/11/18 00:00 02/11/18 04:00 Temperature 99.0 F 98.2 F Pulse Rate 95 H 89 91 H Respiratory Rate 16 16 Blood Pressure 122/69 121/76 Pulse Oximetry 98 98 02/11/18 08:00 Temperature 98.6 F Pulse Rate 84 Respiratory Rate 18 Blood Pressure 113/60 Pulse Oximetry 98 Intake & Output 02/10/18 02/11/18 02/11/18 18:59 06:59 18:59 Intake Total 410 / 410 Output Total 1275 / 1275 1088 / 1088 Balance -865 / -865 -1088 / -1088 Weight 64.9 kg Intake: IV 50 / 50 Diflucan 100 mg Premix Bag 50 50 / 50 ML @ 50 mls/hr IV.SIG Q24H [facility] Rx#:[id number] Oral 360 / 360 Output: Urine 1275 / 1275 150 / 150 Peritoneal Amount 938 / 938 Other: Date of Last Bowel Movement 02/10/18 02/10/18 # Bowel Movements 1 Narrative: GENERAL: Patient lying in bed. Appears comfortable. Alert and oriented. SKIN: Warm and dry. NECK: Supple, trachea midline. No JVD. CARDIOVASCULAR: Regular rate and rhythm without murmurs, gallops, or rubs. RESPIRATORY: Breath sounds equal bilaterally. No accessory muscle use. GASTROINTESTINAL: Abdomen soft, non-tender, nondistended. PD catheter with dressing on. MUSCULOSKELETAL: No cyanosis, or edema. BACK: Nontender without obvious deformity. No CVA tenderness. <Karolyn Jolly - Last Filed: 02/11/18 11:14> Assessment and Plan - Assessment (1) ESRD on peritoneal dialysis Code(s): N18.6 - End stage renal disease; Z99.2 - Dependence on renal dialysis Status: Acute Plan: Patient with End stage renal disease, on PD, history of HIV, was admitted with dehydration, diarrhea, and electrolyte imbalance. Hypokalemia improving, on replacement. Extra replacement given today. Oral fluids encouraged. Continue antibiotics Continue PD nightly, UF 938 ml last night. Labs in AM (2) Diarrhea Code(s): R19.7 - Diarrhea, unspecified Status: Acute Plan: Follow with GI, ID. Reports improvement in diarrhea (3) HIV (human immunodeficiency virus infection) Code(s): B20 - Human immunodeficiency virus [HIV] disease Status: Acute Plan: non-compliance, follow with ID (4) Thrush Code(s): B37.0 - Candidal stomatitis Status: Acute (5) Hypokalemia Code(s): E87.6 - Hypokalemia Status: Acute Plan: Due to poor PO intake, GI losses The patient presented with significant hypokalemia with a potassium of 1.9 at the time of admission. Improved <Karolyn Jolly - Last Filed: 02/11/18 11:14> - Assessment (1) ESRD on peritoneal dialysis Code(s): N18.6 - End stage renal disease; Z99.2 - Dependence on renal dialysis Status: Acute Plan: Patient seen and examined, agree with above. Continue same PD. Encourage oral intake. (2) Diarrhea Code(s): R19.7 - Diarrhea, unspecified Status: Acute (3) HIV (human immunodeficiency virus infection) Code(s): B20 - Human immunodeficiency virus [HIV] disease Status: Acute (4) Thrush Code(s): B37.0 - Candidal stomatitis Status: Acute (5) Hypokalemia Code(s): E87.6 - Hypokalemia Status: Acute <Leonides Shah - Last Filed: 02/13/18 21:11>
--- NOTE | 2018-02-11 12:28 | P.PNIM ---
Subjective Interval history: Patient says he is feeling all right. Denies any chest pain or shortness of breath. Denies nausea or vomiting. Physical Exam Vital signs: Vital Signs 02/10/18 16:00 02/10/18 20:00 02/10/18 20:13 Temperature 98.1 F 99.1 F Pulse Rate 83 97 H 95 H Respiratory Rate 18 17 Blood Pressure 111/70 112/67 Pulse Oximetry 100 100 02/11/18 00:00 02/11/18 04:00 02/11/18 08:00 Temperature 99.0 F 98.2 F 98.6 F Pulse Rate 89 91 H 84 Respiratory Rate 16 16 18 Blood Pressure 122/69 121/76 113/60 Pulse Oximetry 98 98 98 Intake & Output 02/10/18 02/11/18 02/11/18 18:59 06:59 18:59 Intake Total 410 / 410 Output Total 1275 / 1275 1088 / 1088 Balance -865 / -865 -1088 / -1088 Weight 64.9 kg Intake: IV 50 / 50 Diflucan 100 mg Premix Bag 50 50 / 50 ML @ 50 mls/hr IV.SIG Q24H [facility] Rx#:[id number] Oral 360 / 360 Output: Urine 1275 / 1275 150 / 150 Peritoneal Amount 938 / 938 Other: Date of Last Bowel Movement 02/10/18 02/10/18 # Bowel Movements 1 Narrative: GENERAL: Patient lying in bed. Appears comfortable. No change on exam from yesterday. SKIN: Warm and dry. NECK: Supple, trachea midline. No JVD. CARDIOVASCULAR: Regular rate and rhythm without murmurs, gallops, or rubs. RESPIRATORY: Breath sounds equal bilaterally. No accessory muscle use. GASTROINTESTINAL: Abdomen soft, non-tender, nondistended. PD catheter with dressing intact. MUSCULOSKELETAL: No cyanosis, or edema. BACK: Nontender without obvious deformity. No CVA tenderness. Results - Labs CBC & Chem 7: 02/11/18 08:35 02/11/18 08:35 Laboratory Results - last 24 hr 02/07/18 02/07/18 02/11/18 17:41 17:41 08:35 WBC 1.8 L RBC 3.02 L Hgb 7.8 L Hct 24.7 L MCV 82.0 MCH 25.9 L MCHC 31.6 L RDW 19.6 H Plt Count 78 L MPV 8.7 Prelim Diff (Auto) Manual diff required WBC Differential Manual diff final Seg Neuts % (Manual) 68 Band Neuts % (Manual) 20 H Lymphocytes % (Manual) 3 L Monocytes % (Manual) 7 Eosinophils % (Manual) 2 Abs Neuts (Manual) 1.6 L Differential Comment . Platelet Estimate Low L Platelet Morphology Normal Ovalocytes 1+ H G6PD Greater than 21.0 H Sodium Potassium Chloride Carbon Dioxide Anion Gap BUN Creatinine Estimated GFR Random Glucose Calcium Phosphorus Albumin Toxoplasma IgG Ab <7.20 02/11/18 08:35 WBC RBC Hgb Hct MCV MCH MCHC RDW Plt Count MPV Prelim Diff (Auto) WBC Differential Seg Neuts % (Manual) Band Neuts % (Manual) Lymphocytes % (Manual) Monocytes % (Manual) Eosinophils % (Manual) Abs Neuts (Manual) Differential Comment Platelet Estimate Platelet Morphology Ovalocytes G6PD Sodium 137 Potassium 3.4 L Chloride 100 Carbon Dioxide 26.4 Anion Gap 11 BUN 44 H Creatinine 10.38 H* Estimated GFR 6 L Random Glucose 82 Calcium 6.9 L* Phosphorus 4.4 Albumin 1.3 L Toxoplasma IgG Ab Microbiology 02/08/18 14:23 Blood - Peripheral Aerobic Blood Culture - Preliminary No growth in 3 days 02/08/18 14:23 Blood - Peripheral Anaerobic Blood Culture - Preliminary No growth in 3 days 02/08/18 14:23 Blood - Peripheral Aerobic Blood Culture - Preliminary No growth in 3 days 02/08/18 14:23 Blood - Peripheral Anaerobic Blood Culture - Preliminary No growth in 3 days 02/03/18 17:40 Blood - Peripheral Blood Fungal Culture - Preliminary No growth in 1 week 02/03/18 17:40 Blood - Peripheral Blood Fungal Culture - Preliminary No growth in 1 week Assessment and Plan - Assessment (1) ESRD on peritoneal dialysis Code(s): N18.6 - End stage renal disease; Z99.2 - Dependence on renal dialysis Status: Acute (2) Diarrhea Code(s): R19.7 - Diarrhea, unspecified Status: Acute (3) HIV (human immunodeficiency virus infection) Code(s): B20 - Human immunodeficiency virus [HIV] disease Status: Acute (4) Thrush Code(s): B37.0 - Candidal stomatitis Status: Acute (5) Hypokalemia Code(s): E87.6 - Hypokalemia Status: Acute - Plan 52-year-old male with history of HIV and ESRD on PD admitted overnight with generalized weakness, decreased appetite, nausea, and vomiting found to have significant hypokalemia and acute on chronic renal failure. // ESRD on PD - acute on chronic - Patient follows with Dr. Shah - Creatinine back in February and was 13.53 on admission -Likely secondary to decreased PO intake - Continue IV hydration with potassium supplement, watch for fluid overload - Nephrology following - Continue PD - Avoid nephrotoxic agents and renally dose meds //HIV - Last CD4 <20 on 03/09/17 - Noncompliant with f/u and taking antiretrovirals - Not on any prophylaxis. Started on Azithromycin but holding Bactrim secondary to his renal function - CD4 count and viral load pending - ID following // Hypokalemia - Improving - Possibly secondary to GI losses from diarrhea - Continue to replace and follow level closely - Mg WNL - Phosphorous low, start K-Phos - Monitor on tele //sepsis // Diarrhea //Suspected disseminated LULU. - Check stool studies, enteric pathogens currently pending - C. diff negative - GI following -EGD colonoscopy revealed gastritis, duodenitis and internal hemorrhoids Stools more formed, continue supportive care, IV fluid hydration -ID following. Appreciate assistance. = 02/07. Discussed with infectious disease. Blood AFB ordered and pending. =04/10. White blood cell count 2.1, tachycardic heart rate 120, fever 101.2. Repeat blood cultures. Discussed with infectious disease. Continue antibiotics for disseminated LULU as above = 04/11. Still with fevers. Continue antibiotics as per infectious disease. Repeat cultures from 02/09-. Continue to monitor. = 04/12. No fevers today. Cultures from 02/08- today. Continue to monitor. Continue antibiotics for disseminated LULU. Appreciate ID assistance. = 02/11. No fevers today. Cultures from 02/08- times 3 days. Hopefully can discharge in the next couple days when cleared by ID. // Anemia of chronic disease - Secondary to ESRD and HIV - Patient also having some bloody, mucous-like diarrhea which may be causing an acute anemia component -Hemoglobin stable // Thrush, odynophagia - Continue PO Diflucan add Magic mouthwash -Status post EGD with duodenitis and gastritis, start PPI = 02/07. Discussed with infectious disease. Esophageal biopsies pending. = Esophageal biopsies negative for malignancy or infection, however duodenal biopsies indicate disseminated Mycobacterium avium. //Possible contact dermatitis1% hydrocortisone cream DVT prophylaxis: heparin, Discharge Planning: Home when cleared by nephrology and ID. = discharge tomorrow if cleared by ID
--- NOTE | 2018-02-12 09:49 | P.PNNP ---
Subjective Interval history: No complaints or problems overnight. PD nightly. Physical Exam Vital signs: Vital Signs 02/11/18 12:00 02/11/18 16:00 02/11/18 20:00 Temperature 98.3 F 98.7 F 98.4 F Pulse Rate 87 83 80 Respiratory Rate 18 18 16 Blood Pressure 114/72 126/81 123/80 Pulse Oximetry 100 100 99 02/12/18 00:00 02/12/18 04:00 02/12/18 08:00 Temperature 98.8 F 97.8 F 98.6 F Pulse Rate 90 84 83 Respiratory Rate 16 18 Blood Pressure 116/78 97/61 L 111/73 Pulse Oximetry 99 99 99 Intake & Output 02/11/18 02/12/18 02/12/18 18:59 06:59 18:59 Intake Total 100 / 100 780 / 780 Output Total 1123 / 1123 550 / 550 Balance -1123 / -1123 100 / 100 230 / 230 Weight 63 kg Intake: IV 100 / 100 Diflucan 100 mg Premix Bag 50 100 / 100 ML @ 50 mls/hr IV.SIG Q24H [facility] Rx#:[id number] Oral 780 / 780 Output: Urine 185 / 185 550 / 550 Peritoneal Amount 938 / 938 Other: Date of Last Bowel Movement 02/11/18 02/11/18 02/11/18 # Bowel Movements 1 Narrative: GENERAL: Patient lying in bed. Appears comfortable. No changes today. SKIN: Warm and dry. NECK: Supple, trachea midline. No JVD. CARDIOVASCULAR: Regular rate and rhythm without murmurs, gallops, or rubs. RESPIRATORY: Breath sounds equal bilaterally. No accessory muscle use. GASTROINTESTINAL: Abdomen soft, non-tender, nondistended. PD catheter with dressing intact. MUSCULOSKELETAL: No cyanosis, or edema. BACK: Nontender without obvious deformity. No CVA tenderness. Assessment and Plan - Assessment (1) ESRD on peritoneal dialysis Code(s): N18.6 - End stage renal disease; Z99.2 - Dependence on renal dialysis Status: Acute Plan: Patient with End stage renal disease, on PD, history of HIV, was admitted with dehydration, diarrhea, and electrolyte imbalance. PD nightly, tolerating well Plans for discharge home today if cleared per ID (2) Diarrhea Code(s): R19.7 - Diarrhea, unspecified Status: Acute Plan: Improved. (3) HIV (human immunodeficiency virus infection) Code(s): B20 - Human immunodeficiency virus [HIV] disease Status: Acute Plan: non-compliance, follow with ID (4) Thrush Code(s): B37.0 - Candidal stomatitis Status: Acute (5) Hypokalemia Code(s): E87.6 - Hypokalemia Status: Acute Plan: Due to poor PO intake, GI losses The patient presented with significant hypokalemia with a potassium of 1.9 at the time of admission. Improved Increase potassium in diet.
[2018-02-12] MEDS: Calcium Carbonate 500 MG Tablet PO SCH (10:06)
[2018-02-12] MEDS: Potassium Phosphate 500 MG Soluble Tablet PO SCH (10:07)
[2018-02-12] MEDS: Nystatin/Diphenhydramine/Lidocaine Mouthwash (Adult) 120 ML Botttle SWISH-SWAL SCH ×3 (10:11→18:42)
[2018-02-12] MEDS: Senna/Docusate Sodium 8.6/50 MG Tablet PO SCH (10:11)
--- NOTE | 2018-02-12 10:32 | P.PNIM ---
Subjective Interval history: Patient says he is feeling right. Denies any chest pain or shortness of breath. Denies any nausea, vomiting, diarrhea, constipation. Feels like going home. Physical Exam Vital signs: Vital Signs 02/11/18 12:00 02/11/18 16:00 02/11/18 20:00 Temperature 98.3 F 98.7 F 98.4 F Pulse Rate 87 83 80 Respiratory Rate 18 18 16 Blood Pressure 114/72 126/81 123/80 Pulse Oximetry 100 100 99 02/12/18 00:00 02/12/18 04:00 02/12/18 08:00 Temperature 98.8 F 97.8 F 98.6 F Pulse Rate 90 84 83 Respiratory Rate 16 16 18 Blood Pressure 116/78 97/61 L 111/73 Pulse Oximetry 99 99 99 Intake & Output 02/11/18 02/12/18 02/12/18 18:59 06:59 18:59 Intake Total 100 / 100 780 / 780 Output Total 1123 / 1123 550 / 550 Balance -1123 / -1123 100 / 100 230 / 230 Weight 63 kg Intake: IV 100 / 100 Diflucan 100 mg Premix Bag 50 100 / 100 ML @ 50 mls/hr IV.SIG Q24H [facility] Rx#:[id number] Oral 780 / 780 Output: Urine 185 / 185 550 / 550 Peritoneal Amount 938 / 938 Other: Date of Last Bowel Movement 02/11/18 02/11/18 02/11/18 # Bowel Movements 1 Narrative: GENERAL: Patient lying in bed. Appears comfortable. No changes today. SKIN: Warm and dry. NECK: Supple, trachea midline. No JVD. CARDIOVASCULAR: Regular rate and rhythm without murmurs, gallops, or rubs. RESPIRATORY: Breath sounds equal bilaterally. No accessory muscle use. GASTROINTESTINAL: Abdomen soft, non-tender, nondistended. PD catheter with dressing intact. MUSCULOSKELETAL: No cyanosis, or edema. BACK: Nontender without obvious deformity. No CVA tenderness. Results - Labs CBC & Chem 7: 02/11/18 08:35 02/11/18 08:35 Laboratory Results - last 24 hr 02/11/18 08:35 WBC Differential Manual diff final Seg Neuts % (Manual) 68 Band Neuts % (Manual) 20 H Lymphocytes % (Manual) 3 L Monocytes % (Manual) 7 Eosinophils % (Manual) 2 Abs Neuts (Manual) 1.6 L Platelet Estimate Low L Platelet Morphology Normal Ovalocytes 1+ H Microbiology 02/08/18 14:23 Blood - Peripheral Aerobic Blood Culture - Preliminary No growth in 3 days 02/08/18 14:23 Blood - Peripheral Anaerobic Blood Culture - Preliminary No growth in 3 days 02/08/18 14:23 Blood - Peripheral Aerobic Blood Culture - Preliminary No growth in 3 days 02/08/18 14:23 Blood - Peripheral Anaerobic Blood Culture - Preliminary No growth in 3 days Assessment and Plan - Assessment (1) ESRD on peritoneal dialysis Code(s): N18.6 - End stage renal disease; Z99.2 - Dependence on renal dialysis Status: Acute (2) Diarrhea Code(s): R19.7 - Diarrhea, unspecified Status: Acute (3) HIV (human immunodeficiency virus infection) Code(s): B20 - Human immunodeficiency virus [HIV] disease Status: Acute (4) Thrush Code(s): B37.0 - Candidal stomatitis Status: Acute (5) Hypokalemia Code(s): E87.6 - Hypokalemia Status: Acute - Plan 52-year-old male with history of HIV and ESRD on PD admitted overnight with generalized weakness, decreased appetite, nausea, and vomiting found to have significant hypokalemia and acute on chronic renal failure. // ESRD on PD - acute on chronic - Patient follows with Dr. Shah - Creatinine back in February ~ and was 13.53 on admission -Likely secondary to decreased PO intake - Continue IV hydration with potassium supplement, watch for fluid overload - Nephrology following - Continue PD - Avoid nephrotoxic agents and renally dose meds //HIV - Last CD4 <20 on 03/09/17 - Noncompliant with f/u and taking antiretrovirals - Not on any prophylaxis. Started on Azithromycin but holding Bactrim secondary to his renal function - CD4 count and viral load pending - ID following = 02/12. Discussed with ID. Follow-up ID recommendations for final antiretroviral protocol. // Hypokalemia - Improving - Possibly secondary to GI losses from diarrhea - Continue to replace and follow level closely - Mg WNL - Phosphorous low, start K-Phos - Monitor on tele //sepsis // Diarrhea //Suspected disseminated LULU. - Check stool studies, enteric pathogens currently pending - C. diff negative - GI following -EGD colonoscopy revealed gastritis, duodenitis and internal hemorrhoids Stools more formed, continue supportive care, IV fluid hydration -ID following. Appreciate assistance. = 02/07. Discussed with infectious disease. Blood AFB ordered and pending. =04/10. White blood cell count 2.1, tachycardic heart rate 120, fever 101.2. Repeat blood cultures. Discussed with infectious disease. Continue antibiotics for disseminated LULU as above = 04/11. Still with fevers. Continue antibiotics as per infectious disease. Repeat cultures from 02/09-. Continue to monitor. = 04/12. No fevers today. Cultures from 02/08- today. Continue to monitor. Continue antibiotics for disseminated LULU. Appreciate ID assistance. = 02/11. No fevers today. Cultures from 02/08- times 3 days. Hopefully can discharge in the next couple days when cleared by ID. = 12/13. Discussed with infectious disease. Follow-up ID recommendations for final antibiotic protocol. // Anemia of chronic disease - Secondary to ESRD and HIV - Patient also having some bloody, mucous-like diarrhea which may be causing an acute anemia component -Hemoglobin stable // Thrush, odynophagia - Continue PO Diflucan add Magic mouthwash -Status post EGD with duodenitis and gastritis, start PPI = 02/07. Discussed with infectious disease. Esophageal biopsies pending. = Thrush resolved. Esophageal biopsies negative for malignancy or infection, however duodenal biopsies indicate disseminated Mycobacterium avium. //Possible contact dermatitis1% hydrocortisone cream DVT prophylaxis: heparin, Discharge Planning: Home when cleared by ID. = discharge today if cleared by ID
--- NOTE | 2018-02-12 10:33 | P.DCO ---
- Diagnosis (1) Mycobacterial infection, not TB Status: Acute (2) ESRD on peritoneal dialysis Status: Acute (3) Diarrhea Status: Acute (4) HIV (human immunodeficiency virus infection) Status: Acute - Physical Therapy Order: Evaluate and treat - Home Health Nursing Order: Nursing assessment with vital signs - Home Health Aide Order: To assist in: control analyst and meal prep - Veterinarian Laboratory Animal Care Order: To evaluate: Living conditions/environment, Support services Order: To provide: Long range planning, Community services - Case Management Consult Case Management Consult-Home Health: Yes - Certification I have seen patient Karena Hu on 02/12/18. My clinical findings support the need for the requested home health care services because: Limited ability to care for self I certify that my clinical findings support that this patient is homebound because: Unsafe to leave home unassisted
--- NOTE | 2018-02-12 10:37 | P.DS ---
Date of admission: 02/02/18 20:40 Primary care physician: No Primary Care Physician Brief History from admission: This is a 52-year-old male with a PMH of HIV (CD4 <20 03/09/17) and ESRD on PD who presented to the ER w/ c/o generalized weakness, dizziness and decreased appetite x2 wks. States symptoms worse today. Denies fever, chills, cough or chest pain. Notes few episodes of nausea, vomiting x2 today. States he used to follow w/ ID for HIV but does not have follow-up currently, does not know last CD4 count or viral load, but reports compliance w/ meds. Has been on Nystatin for thrush. On arrival, BP 92/52, HR 117, O2 sat 98% on RA, Temp 99.6. Hemoglobin 10.5. Platelets 144. WBC 4.7. INR 1.0. K+ 1.9. Creatinine 13.53. CXR with no acute findings. S/p PO K+ replacement in ER, however unable to tolerate. EKG w/ no acute findings. DS: Diagnosis - Discharge Diagnosis (1) Mycobacterial infection, not TB Status: Acute (2) ESRD on peritoneal dialysis Status: Acute (3) Diarrhea Status: Acute (4) HIV (human immunodeficiency virus infection) Status: Acute (5) Hypokalemia Status: Acute (6) Thrush Status: Acute DS: Summary Hospital Course: 52-year-old male with history of HIV and ESRD on PD admitted overnight with generalized weakness, decreased appetite, nausea, and vomiting found to have significant hypokalemia and acute on chronic renal failure. // ESRD on PD - acute on chronic - Patient follows with Dr. Shha - Creatinine back in February and was 13.53 on admission -Likely secondary to decreased PO intake - Continue IV hydration with potassium supplement, watch for fluid overload - Nephrology following - Continue PD - Avoid nephrotoxic agents and renally dose meds //HIV - Last CD4 <20 on 03/09/17 - Noncompliant with f/u and taking antiretrovirals - Not on any prophylaxis. Started on Azithromycin but holding Bactrim secondary to his renal function - CD4 count and viral load pending - ID following = 02/12. Discussed with ID. Follow-up ID recommendations for final antiretroviral protocol. // Hypokalemia - Improving - Possibly secondary to GI losses from diarrhea - Continue to replace and follow level closely - Mg WNL - Phosphorous low, start K-Phos - Monitor on tele //sepsis // Diarrhea //Suspected disseminated LULU. - Check stool studies, enteric pathogens currently pending - C. diff negative - GI following -EGD colonoscopy revealed gastritis, duodenitis and internal hemorrhoids Stools more formed, continue supportive care, IV fluid hydration -ID following. Appreciate assistance. = 02/07. Discussed with infectious disease. Blood AFB ordered and pending. =04/10. White blood cell count 2.1, tachycardic heart rate 120, fever 101.2. Repeat blood cultures. Discussed with infectious disease. Continue antibiotics for disseminated LULU as above = 04/11. Still with fevers. Continue antibiotics as per infectious disease. Repeat cultures from 02/09-. Continue to monitor. = 04/12. No fevers today. Cultures from 02/08- today. Continue to monitor. Continue antibiotics for disseminated LULU. Appreciate ID assistance. = 02/11. No fevers today. Cultures from 02/08- times 3 days. Hopefully can discharge in the next couple days when cleared by ID. = 12/13. Discussed with infectious disease. Follow-up ID recommendations for final antibiotic protocol. // Anemia of chronic disease - Secondary to ESRD and HIV - Patient also having some bloody, mucous-like diarrhea which may be causing an acute anemia component -Hemoglobin stable // Thrush, odynophagia - Continue PO Diflucan add Magic mouthwash -Status post EGD with duodenitis and gastritis, start PPI = 02/07. Discussed with infectious disease. Esophageal biopsies pending. = Thrush resolved. Esophageal biopsies negative for malignancy or infection, however duodenal biopsies indicate disseminated Mycobacterium avium. //Possible contact dermatitis1% hydrocortisone cream DVT prophylaxis: heparin, Discharge Planning: Home when cleared by ID. = discharge today if cleared by ID - Time Spent with Patient Total time spent providing and/or coordinating discharge services: Greater than 30 minutes - Quality: VTE Deep Vein Thrombosis/Pulmonary Embolism Present on Admission: No Exam Vital signs: Vital Signs 02/11/18 12:00 02/11/18 16:00 02/11/18 20:00 Temperature 98.3 F 98.7 F 98.4 F Pulse Rate 87 83 80 Respiratory Rate Blood Pressure 114/72 126/81 123/80 Pulse Oximetry 100 100 99 02/12/18 00:00 02/12/18 04:00 02/12/18 08:00 Temperature 98.8 F 97.8 F 98.6 F Pulse Rate 90 84 83 Respiratory Rate 16 16 18 Blood Pressure 116/78 97/61 L 111/73 Pulse Oximetry 99 99 99 Intake & Output 02/11/18 02/12/18 02/12/18 18:59 06:59 18:59 Intake Total 100 / 100 780 / 780 Output Total 1123 / 1123 550 / 550 Balance -1123 / -1123 100 / 100 230 / 230 Weight 63 kg Intake: IV 100 / 100 Diflucan 100 mg Premix Bag 50 100 / 100 ML @ 50 mls/hr IV.SIG Q24H [facility] Rx#:[id number] Oral 780 / 780 Output: Urine 185 / 185 550 / 550 Peritoneal Amount 938 / 938 Other: Date of Last Bowel Movement 02/11/18 02/11/18 02/11/18 # Bowel Movements 1 Results Procedures completed during hospitalization: EGD, colonoscopy. Please see report. Completed studies during hospitalization: Pending at discharge 02/05/18 07:42 Surgical [PTH] Routine Labs on day of discharge: Labs from last 24 hours 02/11/18 08:35 WBC Differential Manual diff final Seg Neuts % (Manual) 68 Band Neuts % (Manual) 20 H Lymphocytes % (Manual) 3 L Monocytes % (Manual) 7 Eosinophils % (Manual) 2 Abs Neuts (Manual) 1.6 L Platelet Estimate Low L Platelet Morphology Normal Ovalocytes 1+ H Preliminary micro results at discharge 02/08/18 14:23 Aerobic Blood Culture - Preliminary Blood - Peripheral No growth in 3 days Anaerobic Blood Culture - Preliminary No growth in 3 days 02/08/18 14:23 Aerobic Blood Culture - Preliminary Blood - Peripheral No growth in 3 days Anaerobic Blood Culture - Preliminary No growth in 3 days 02/03/18 17:40 Blood Fungal Culture - Preliminary Blood - Peripheral No growth in 1 week Blood Fungal Culture - Preliminary No growth in 1 week 02/03/18 10:30 Mycobacterial Culture - Preliminary Stool - Impressions ITS Impressions Chest X-Ray 02/02/18 18:47 CONCLUSION: No evidence of acute cardiopulmonary disease. Head CT 02/02/18 19:49 CONCLUSION: 1. No acute intracranial abnormality demonstrated. 2. Mild chronic white matter changes. . Discharge Plan - Discharge Details Anticipated Discharge Date: 02/12/18 - Physicians Team Primary Care Provider: Primary Care Jazmine Garnett Attending Provider: Jesse Hartley Other Providers: Deric Tello MD ; Mehnaz Martines MD ; Sabra Hutchison MD ; Patricia Tello MD
--- NOTE | 2018-02-12 14:39 | P.PNID ---
Subjective Remarks: is a 52-year-old -[place] past medical history significant for HIV diagnosed when he was 23 years old. Patient reports that he used to see RADHA Leslie at Dr. Paul office for his HIV care. He reports that the last time he saw her was approximately 2 years back. When asked patient did not know his most recent CD4 count or viral load. He did not know his current HIV medication regimen. When questioned who was prescribing his HIV medication he replied that it may have been either Dr. Paul office or 's office. The last known CD4 count for the patient is less than 2 and this was approximately a year back. Patient also is on peritoneal dialysis for his end- stage renal disease and follows up with . Patient reports that approximately 2 weeks back he started developing diarrhea with no blood. He denies any black tarry stools or fresh blood per rectum. He initially did not have any nausea or vomiting subsequently reports having developed nausea. Approximately 4 days prior to admission patient lost his appetite had nausea and may be some difficulty swallowing. Patient reports that when he presented to the emergency department he was questioned about white patches on his tongue and was told that it was oral thrush. He thinks it is the first time he has been told he has oral thrush. He denies any prior admissions for AIDS defining illnesses. He does not remember being on any prophylactic regimen for prevention of infections. At baseline patient is able to wake up in the morning drive his car and go to get some breakfast as well as lunch and stay at the mall for several hours. He thinks he may be depressed because after getting home he pretty much stays in his so far all day. He reports that he has a partner who lives in [place] but they are not sexually active for the last 6 months. With this background patient presents to the emergency department at [facility] with complaints of generalized weakness, dizziness decreased appetite for approximately 2 weeks. Due to worsening symptoms of nausea and inability to stand due to extreme weakness he presented to the emergency department. He denies any fevers chills night sweats. He denies any other systemic symptoms. He undergoes peritoneal dialysis every night and denies any abdominal pain or discharge from the PD catheter site. On arrival to the emergency department his blood pressure was 92 x 52 his heart rate was 117 his O2 sats were 98% on room air and he had a temperature of 99.6. Since admission he has had no fevers. He has been receiving IV fluids but is not on any pressors. Patient's creatinine was found to be 13.53 and his potassium was 1.9 and therefore patient is admitted to the intensive care unit. At the present time although he is in the ICU he has been managed by the primary care team. His chest x-ray showed no acute findings. Infectious diseases consulted for evaluation and management of possible sepsis, HIV/AIDS, oral thrush possible esophagitis. Overnight events reviewed. Occ low grade fevers. No rash Undergoes PD at night Antibiotics: Fluconazole IV Azithromycin 1200 mg once a week Lines: Lines ok Past Medical History: Reviewed Allergies/Adverse Reactions: Allergies No Known Allergies Allergy (Verified 02/02/18 13:58) Objective Vital Signs 02/11/18 16:00 02/11/18 20:00 02/12/18 00:00 Temperature 98.7 F 98.4 F 98.8 F Pulse Rate 83 80 90 Respiratory Rate 18 16 16 Blood Pressure 126/81 123/80 116/78 Pulse Oximetry 100 99 99 02/12/18 04:00 02/12/18 08:00 02/12/18 09:00 Temperature 97.8 F 98.6 F Pulse Rate 84 83 86 Respiratory Rate 16 18 Blood Pressure 97/61 L 111/73 Pulse Oximetry 99 99 02/12/18 12:00 Temperature 98.6 F Pulse Rate 84 Respiratory Rate 18 Blood Pressure 124/84 Pulse Oximetry 99 Intake & Output 02/11/18 02/12/18 02/12/18 18:59 06:59 18:59 Intake Total 100 / 100 780 / 780 Output Total 1123 / 1123 550 / 550 Balance -1123 / -1123 100 / 100 230 / 230 Weight 63 kg Intake: IV 100 / 100 Diflucan 100 mg Premix Bag 50 100 / 100 ML @ 50 mls/hr IV.SIG Q24H [facility] Rx#:[id number] Oral 780 / 780 Output: Urine 185 / 185 550 / 550 Peritoneal Amount 938 / 938 Other: Date of Last Bowel Movement 02/11/18 02/11/18 02/11/18 # Bowel Movements 1 02/08/18 14:23 Blood - Peripheral Aerobic Blood Culture - Preliminary No growth in 4 days 02/08/18 14:23 Blood - Peripheral Anaerobic Blood Culture - Preliminary No growth in 4 days 02/08/18 14:23 Blood - Peripheral Aerobic Blood Culture - Preliminary No growth in 4 days 02/08/18 14:23 Blood - Peripheral Anaerobic Blood Culture - Preliminary No growth in 4 days 02/03/18 17:40 Blood - Peripheral Blood Fungal Culture - Preliminary No growth in 1 week 02/03/18 17:40 Blood - Peripheral Blood Fungal Culture - Preliminary No growth in 1 week 02/04/18 03:38 Blood - Peripheral Aerobic Blood Culture - Final No growth in 5 days 02/04/18 03:38 Blood - Peripheral Anaerobic Blood Culture - Final No growth in 5 days Lab - Hematology Results 02/07/18 02/11/18 17:41 08:35 WBC 1.8 L RBC 3.02 L Hgb 7.8 L Hct 24.7 L MCV 82.0 MCH 25.9 L MCHC 31.6 L RDW 19.6 H Plt Count 78 L MPV 8.7 Prelim Diff (Auto) Manual diff required WBC Differential Manual diff final Seg Neuts % (Manual) 68 Band Neuts % (Manual) 20 H Lymphocytes % (Manual) 3 L Monocytes % (Manual) 7 Eosinophils % (Manual) 2 Abs Neuts (Manual) 1.6 L Differential Comment . Platelet Estimate Low L Platelet Morphology Normal Ovalocytes 1+ H G6PD Greater than 21.0 H Lab - Chemistry Results 02/11/18 08:35 Sodium 137 Potassium 3.4 L Chloride 100 Carbon Dioxide 26.4 Anion Gap 11 BUN 44 H Creatinine 10.38 H* Estimated GFR 6 L Random Glucose 82 Calcium 6.9 L* Phosphorus 4.4 Albumin 1.3 L Imaging: ITS Impressions Chest X-Ray 02/02/18 18:47 CONCLUSION: No evidence of acute cardiopulmonary disease. Head CT 02/02/18 19:49 CONCLUSION: 1. No acute intracranial abnormality demonstrated. 2. Mild chronic white matter changes. . Physical Exam: GENERAL: Well-nourished well-developed, not in acute distress SKIN: Cool and dry, no generalized rash. HEAD: Atraumatic. Normocephalic. No temporal or scalp tenderness. EYES: Pupils equal round and reactive. Scleral icterus. No injection or drainage. No petechia ENT: Nothing abnormal detected NECK: Trachea midline. Supple, nontender, no meningeal signs. CARDIOVASCULAR: HS audible. RESPIRATORY: Clear to auscultation bilaterally. GASTROINTESTINAL: Abdomen soft nontender. PD catheter insertion site with no evidence of infection. No guarding no rigidity. MUSCULOSKELETAL: Extremities without clubbing, cyanosis. NEUROLOGICAL: Alert oriented 3. Nonfocal. Psych cooperative IV line sites ok. Assessment and Plan - Plan Rule out sepsis due to hypotension. Suspect sepsis is probably from poor oral intake as well as ongoing losses from diarrhea. Oral thrush, possible Kayla esophagitis. Rule out herpetic esophagitis. Diarrhea: Gastroenteritis workup pending, age-related diarrheal illness causes need to be ruled out such as AFB, cryptosporidium, Giardia etc. HIV AIDS. Oral thrush is AIDS defining illness. Acute on chronic renal failure: Prerenal component, r/o HIV Nephropathy Hypokalemia likely secondary to poor oral intake as well as ongoing losses from diarrhea Questionable compliance with PT as well as HIV medications. Hypotension: Rule out sepsis, prerenal. Rule out disseminated Mycobacterium avium-intracellulare infection involving adrenal glands as a cause. Recs: One time dose of Pentamidine nebulizer as low CD4. 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 Case dw she will see him in follow up. Continue Diflucan change to oral. Follow AFB blood cultures. Above regimen for suspected disseminated LULU infection given patients CD4 count is less than 24 and has very resistant virus. jarrett Mccallum his past HIV doctor who he will need to follow up with. jarrett Wang: ok to [facility] home. Mandatory follow up with Dr.Reba Paul in 1 week post discharge. Counseled patient to avoid any alcohol as LULU regimen hepatotoxic. Will sign off please call back if any change in clinical condition or questions.
[2018-02-12 16:52] VITALS: BP 116/73; RESP 16; TEMP 98; O2SAT 97
[2018-02-12 17:40] VITALS: PULSE 87
[2018-03-14] MEDS ORDERED: PENTAMIDINE ISETHIONATE 300 MG NEB SCH (09:00)
== END 2018-02-12 20:40 | disposition home health service (06) ==
LOC: NEPC 13:12 → NEDA 20:40 → N03 22:30 → N04 02-05 20:53
PROVIDERS: ADMIT Internal Medicine; ATTEND Internal Medicine
PROC: COLONOS (2018-02-05 15:32)
PROC: PANENDO (2018-02-05 15:32)
DX: Z91.14 Patient's other noncompliance with medication regimen; A41.9 Sepsis, unspecified organism; R13.10 Dysphagia, unspecified; H54.62 Unqualified visual loss, left eye, normal vision right eye; E86.0 Dehydration; I95.9 Hypotension, unspecified; R53.81 Other malaise; H33.052 Total retinal detachment, left eye; R00.0 Tachycardia, unspecified; D63.8 Anemia in other chronic diseases classified elsewhere; K64.1 Second degree hemorrhoids; K29.70 Gastritis, unspecified, without bleeding; R21 Rash and other nonspecific skin eruption; E87.6 Hypokalemia; K29.80 Duodenitis without bleeding; N17.9 Acute kidney failure, unspecified; B20 Human immunodeficiency virus [HIV] disease; L29.9 Pruritus, unspecified; Z99.2 Dependence on renal dialysis; A31.2 Disseminated mycobacterium avium-intracellulare complex (DMAC); B37.0 Candidal stomatitis; N18.6 End stage renal disease; Z87.891 Personal history of nicotine dependence

== ENCOUNTER 2018-04-06 14:26 | Inpatient (IN) ==
--- NOTE | 2018-04-06 16:37 | ED ---
HPI General Chief complaint: Shortness of Breath/Dyspnea Stated complaint: respiratory Time Seen by Provider: 04/06/18 16:15 History of Present Illness HPI narrative: 52-year-old male with a history of HIV, ESRD on peritoneal dialysis presents to the emergency department for evaluation of shortness of breath. Patient states he has had shortness of breath since yesterday intermittently. Denies any aggravating or alleviating factors. States he does peritoneal dialysis every night, last dialyzed last night. States for the last 4 days he has had intermittent chills and generalized weakness. States today when he went to the dialysis center to get his epo shot his temperature was 101 F. States that he has not had any other fevers that he is aware of. Denies any cough, cold symptoms, chest pain, abdominal pain, nausea, vomiting, diarrhea , swelling of the extremities, calf pain, hemoptysis. He states that he is taking his antiretroviral medications. No other complaints. Related Data Home Medications Medication Instructions Recorded Confirmed calcium acetate 667 mg PO TID 02/02/18 04/06/18 abacavir 300 mg PO DAILY 04/06/18 04/06/18 amlodipine 10 mg PO DAILY 04/06/18 04/06/18 azithromycin [Zithromax Z-Alexis] PO DIRECTED 04/06/18 darunavir ethanolate [Prezista] 800 mg PO DAILY 04/06/18 04/06/18 dolutegravir [Tivicay] 50 mg PO DAILY 04/06/18 04/06/18 ethambutol [Myambutol] 800 mg PO DAILY 04/06/18 04/06/18 lisinopril 5 mg PO DAILY 04/06/18 04/06/18 Allergies Allergy/AdvReac Type Severity Reaction Status Date / Time No Known Allergies Allergy Verified 02/02/18 13:58 Review of Systems ROS: all other systems reviewed are negative [facility] Medical History Medical History HIV (human immunodeficiency virus infection) (Acute) History of peritoneal dialysis (Acute) Hypotension (Acute) Renal failure (Acute) Social History Social History Substance History: No History of Abuse Second Hand Smoke Exposure: No Smoking Status: Never smoker Tobacco Type: Cigarettes How Often Do You Have a Drink Containing Alcohol: Never Recent Travel in [facility] within the Last 8 Weeks: No Recent Out of Country Travel within the Last 8 Weeks: No Immunization History Tetanus Immunization: Unsure Exam Narrative Exam Narrative: GENERAL: Well-nourished and well-developed pleasant patient in no acute distress who is nontoxic appearing. SKIN: Warm and dry. HEAD: Normocephalic and atraumatic. EYES: No injection, drainage, or hyphema noted. PERRLA. EOMI. ENT: No nasal drainage noted. Oropharynx is clear and the TMs are normal with good landmarks. NECK: Supple and the trachea is midline. No lymphadenopathy is noted throughout the cervical chains. CARDIOVASCULAR: Regular rate and rhythm. RESPIRATORY: Breath sounds are equal bilaterally with no accessory muscle use, wheezing, rhonchi, or crackles. GASTROINTESTINAL: Peritoneal dialysis catheter noted. Abdomen is soft, non- tender, and nondistended. MUSCULOSKELETAL: No obvious deformities, swelling, cyanosis, or ecchymosis is present throughout the upper and lower extremities. Patient has full range of motion without any signs of neurovascular compromise. Distal pulses are 2+ throughout. NEUROLOGICAL: Awake, alert, and oriented. Normal speech and gait. Cranial nerves are grossly intact. Course Initial Documented Vital Signs Temperature 99.7 F H 04/06/18 14:29 Pulse Rate 103 H 04/06/18 14:29 Respiratory Rate 20 04/06/18 14:29 Blood Pressure 124/78 04/06/18 14:29 Pulse Oximetry 100 04/06/18 14:29 Last Documented Vital Signs Temperature 98.2 F 04/07/18 04:00 Pulse Rate 104 H 04/07/18 00:00 Respiratory Rate 20 04/07/18 00:00 Blood Pressure 122/67 04/07/18 00:00 Pulse Oximetry 98 04/07/18 00:00 Medical Decision Making MARCY Attestation MARCY supervised visit: Yes Attestation: Hemodynamically stable with no signs of acute airway compromise MDM Narrative Medical decision making narrative: 52-year-old male presents to the emergency department for evaluation of shortness of breath. Patient's temperature is 99.7 F. He is initially tachycardic with a heart rate of 111 bpm. Otherwise vital signs are within normal limits. Physical examination is essentially unremarkable. Patient appears very comfortable and does not appear to have any work of breathing. IV access is obtained, labs have been drawn and sent. Patient is placed on cardiac telemetry and pulse oximetry monitoring. EKG shows sinus rhythm with no acute ST elevations or depressions. CBC shows mild anemia with hemoglobin 8.9, hematocrit 27.4. This is at the patient's baseline. Coags are unremarkable. CMP shows creatinine 7.95, BUN 31, GFR 9 consistent with ESRD. Lactic acid is within normal limits. Troponin is 0.08. BNP is 161. Influenza swab is negative. Chest x-ray is unremarkable. Patient's temperature has now increased to 100.4. Patient meets SIRS criteria, unclear what is source. Patient covered for PCP with Bactrim, covered for respiratory source with Rocephin and Zithromax. Patient will be admitted under observation. I spoke with Dr. Tavares [facility] who accepts patient to her service. Medical Screen Exam Complete: Yes Emergency Medical Condition: Yes Differential Diagnosis Differential Diagnosis: Bronchitis versus pneumonia versus fluid overload versus anemia versus upper respiratory infection versus influenza Lab Data Result diagrams: 04/06/18 16:50 04/06/18 16:50 Lab Results 04/06/18 04/06/18 04/06/18 Range/Units 16:50 16:50 16:50 WBC 4.2 (4.0-11.0) th/mm3 RBC 3.14 L (4.50-5.90) mil/mm3 Hgb 8.9 L (13.0-17.0) gm/dL Hct 27.4 L (39.0-51.0) % MCV 87.3 (80.0-100.0) fL MCH 28.3 (27.0-34.0) pg MCHC 32.5 (32.0-36.0) % RDW 18.0 H (11.6-17.2) % Plt Count 322 (150-450) th/mm3 MPV 7.3 (7.0-11.0) fL Prelim Diff (Auto) Slide review pending WBC Differential Manual diff final Seg Neuts % (Manual) 80 H (16-70) % Band Neuts % (Manual) 4 (0-6) % Lymphocytes % (Manual) 8 L (9-44) % Monocytes % (Manual) 7 (0-8) % Metamyelocytes % (Man) 1 (0-1) % Abs Neuts (Manual) 3.6 (1.8-7.7) th/mm3 Differential Comment . Platelet Estimate Normal (Normal) Platelet Morphology Normal (Normal) Ovalocytes 1+ H (None) PT (9.8-11.6) sec INR Ratio APTT (23.4-31.7) sec Sodium 136 (136-145) meq/L Potassium 3.5 (3.5-5.1) meq/L Chloride 101 (98-107) meq/L Carbon Dioxide 27.3 (21.0-32.0) meq/L Anion Gap 8 (5-15) meq/L BUN 31 H (7-18) mg/dL Creatinine 7.95 H (0.60-1.30) mg/dL Estimated GFR 9 L (>89) mL/min Random Glucose 85 (74-106) mg/dL Lactic Acid 0.7 (0.4-2.0) mmol/L Calcium 8.0 L (8.5-10.1) mg/dL Total Bilirubin 0.3 (0.2-1.0) mg/dL AST 33 (15-37) U/L ALT 13 (12-78) U/L Alkaline Phosphatase 66 (45-117) U/L Troponin I 0.08 H (0.02-0.05) ng/mL B-Natriuretic Peptide (0-100) pg/mL Total Protein 7.5 (6.4-8.2) g/dL Albumin 1.7 L (3.4-5.0) g/dL Urine Color (Yellw/Straw) Urine Clarity (Clear) Urine pH (5.0-8.5) Ur Specific [place] (1.002-1.035) Urine Protein (Neg-Trace) mg/dL Urine Glucose (UA) (Negative) mg/dL Urine Ketones (Negative) mg/dL Urine Occult Blood (Negative) Urine Nitrate (Negative) Urine Bilirubin (Negative) Urine Urobilinogen (Less than 2) mg/dL Ur Leukocyte Esterase (Negative) Urine WBC (0-5) /hpf Micro UA Comment Ur Microscopic Review Urine Culture Comments 04/06/18 04/06/18 04/06/18 Range/Units 16:50 16:50 16:50 WBC (4.0-11.0) th/mm3 RBC (4.50-5.90) mil/mm3 Hgb (13.0-17.0) gm/dL Hct (39.0-51.0) % MCV (80.0-100.0) fL MCH (27.0-34.0) pg MCHC (32.0-36.0) % RDW (11.6-17.2) % Plt Count (150-450) th/mm3 MPV (7.0-11.0) fL Prelim Diff (Auto) WBC Differential Seg Neuts % (Manual) (16-70) % Band Neuts % (Manual) (0-6) % Lymphocytes % (Manual) (9-44) % Monocytes % (Manual) (0-8) % Metamyelocytes % (Man) (0-1) % Abs Neuts (Manual) (1.8-7.7) th/mm3 Differential Comment Platelet Estimate (Normal) Platelet Morphology (Normal) Ovalocytes (None) PT 11.8 H (9.8-11.6) sec INR 1.2 Ratio APTT 34.5 H (23.4-31.7) sec Sodium (136-145) meq/L Potassium (3.5-5.1) meq/L Chloride (98-107) meq/L Carbon Dioxide (21.0-32.0) meq/L Anion Gap (5-15) meq/L BUN (7-18) mg/dL Creatinine (0.60-1.30) mg/dL Estimated GFR (>89) mL/min Random Glucose (74-106) mg/dL Lactic Acid (0.4-2.0) mmol/L Calcium (8.5-10.1) mg/dL Total Bilirubin (0.2-1.0) mg/dL AST (15-37) U/L ALT (12-78) U/L Alkaline Phosphatase (45-117) U/L Troponin I Cancelled (0.02-0.05) ng/mL B-Natriuretic Peptide 161 H (0-100) pg/mL Total Protein (6.4-8.2) g/dL Albumin (3.4-5.0) g/dL Urine Color (Yellw/Straw) Urine Clarity (Clear) Urine pH (5.0-8.5) Ur Specific [place] (1.002-1.035) Urine Protein (Neg-Trace) mg/dL Urine Glucose (UA) (Negative) mg/dL Urine Ketones (Negative) mg/dL Urine Occult Blood (Negative) Urine Nitrate (Negative) Urine Bilirubin (Negative) Urine Urobilinogen (Less than 2) mg/dL Ur Leukocyte Esterase (Negative) Urine WBC (0-5) /hpf Micro UA Comment Ur Microscopic Review Urine Culture Comments 04/06/18 04/07/18 Range/Units 18:45 00:00 WBC (4.0-11.0) th/mm3 RBC (4.50-5.90) mil/mm3 Hgb (13.0-17.0) gm/dL Hct (39.0-51.0) % MCV (80.0-100.0) fL MCH (27.0-34.0) pg MCHC (32.0-36.0) % RDW (11.6-17.2) % Plt Count (150-450) th/mm3 MPV (7.0-11.0) fL Prelim Diff (Auto) WBC Differential Seg Neuts % (Manual) (16-70) % Band Neuts % (Manual) (0-6) % Lymphocytes % (Manual) (9-44) % Monocytes % (Manual) (0-8) % Metamyelocytes % (Man) (0-1) % Abs Neuts (Manual) (1.8-7.7) th/mm3 Differential Comment Platelet Estimate (Normal) Platelet Morphology (Normal) Ovalocytes (None) PT (9.8-11.6) sec INR Ratio APTT (23.4-31.7) sec Sodium (136-145) meq/L Potassium (3.5-5.1) meq/L Chloride (98-107) meq/L Carbon Dioxide (21.0-32.0) meq/L Anion Gap (5-15) meq/L BUN (7-18) mg/dL Creatinine (0.60-1.30) mg/dL Estimated GFR (>89) mL/min Random Glucose (74-106) mg/dL Lactic Acid (0.4-2.0) mmol/L Calcium (8.5-10.1) mg/dL Total Bilirubin (0.2-1.0) mg/dL AST (15-37) U/L ALT (12-78) U/L Alkaline Phosphatase (45-117) U/L Troponin I 0.08 H (0.02-0.05) ng/mL B-Natriuretic Peptide (0-100) pg/mL Total Protein (6.4-8.2) g/dL Albumin (3.4-5.0) g/dL Urine Color Yellow (Yellw/Straw) Urine Clarity Clear (Clear) Urine pH 7.0 (5.0-8.5) Ur Specific [place] 1.013 (1.002-1.035) Urine Protein 100 H (Neg-Trace) mg/dL Urine Glucose (UA) Negative (Negative) mg/dL Urine Ketones Negative (Negative) mg/dL Urine Occult Blood Negative (Negative) Urine Nitrate Negative (Negative) Urine Bilirubin Negative (Negative) Urine Urobilinogen Less than 2 (Less than 2) mg/dL Ur Leukocyte Esterase Negative (Negative) Urine WBC 1 (0-5) /hpf Micro UA Comment Culture not ind Ur Microscopic Review Not Reportable Urine Culture Comments Culture not ind Imaging Data Radiologist's impression: Chest X-Ray 04/06/18 16:33 CONCLUSION: Mid inspiratory study with crowding of the lung vasculature. Discharge Plan Discharge Disposition Patient Disposition: ED Admit(ED Internal Use Only) Discharge Condition Condition: Stable Discharge Order Discharge Orders: ED Use Only Admit Order (Routine); Ordered 04/06/18 Ordered By: Magdalena Sun Discharge Details Diagnosis: SIRS (systemic inflammatory response syndrome), HIV (human immunodeficiency virus infection) Physicians Team ED Provider: Denzel King ED Midlevel Provider: Magdalena Sun Primary Care Provider: Primary Care Jazmine Garnett Attending Provider: Rani Guadarrama Other Providers: Mehnaz Martines ; Chad Vela Status ED Status: Left Department Discharge Information Discharge Date/Time: 04/06/18 21:48
--- NOTE | 2018-04-06 16:53 | XR ---
EXAM DATE: 04/06/2018 4:46 PM EST AGE/SEX: 52 years / Male INDICATIONS: Shortness of breath, fever and cough. CLINICAL DATA: This is the patient's initial encounter. Patient reports that signs and symptoms have been present for 3 days and indicates a pain score of 0/10. MEDICAL/SURGICAL HISTORY: Hypertension. None. COMPARISON: [facility] [place]ST 1V SINGLE AP, 02/02/2018. . FINDINGS: A single AP erect portable view of the chest was obtained. The study is more mid inspiratory with escrow manager wding of the lung vasculature. The heart size is at the upper limits of normal. No confluent infiltra princess or effusions are identified. The bony thorax remains intact. There are multiple overlying electro cardiogram leads. CONCLUSION: Mid inspiratory study with crowding of the lung vasculature. Electronically signed by: Corbin Mendoza MD Board Certified Radiologist 04/06/2018 4:51 PM EST
[2018-04-06 17:02] LABS: Hematocrit 27.4 % (39.0-51.0); Hemoglobin 8.9 gm/dL (13.0-17.0); Mean Corpuscular HGB Conc 32.5 % (32.0-36.0); Mean Corpuscular Hemoglobin 28.3 pg (27.0-34.0); Mean Corpuscular Volume 87.3 fL (80.0-100.0); Mean Platelet Volume 7.3 fL (7.0-11.0); Platelet Count 322 th/mm3 (150-450); Red Blood Count 3.14 mil/mm3 (4.50-5.90); White Blood Count 4.2 th/mm3 (4.0-11.0)
[2018-04-06 17:15] LABS: Activated Partial Thrombo Time 34.5 sec (23.4-31.7); INR 1.2 Ratio; Prothrombin Time 11.8 sec (9.8-11.6)
[2018-04-06 17:37] LABS: Alanine Aminotransferase 13 U/L (12-78); Albumin 1.7 g/dL (3.4-5.0); Anion Gap 8 meq/L (5-15); Aspartate Aminotransferase 33 U/L (15-37); Blood Urea Nitrogen 31 mg/dL (7-18); Carbon Dioxide 27.3 meq/L (21.0-32.0); Chloride 101 meq/L (98-107); Glomerular Filtration Rate 9 mL/min (>89); Glucose,Random 85 mg/dL (74-106); Lymphocytes 8 % (9-44); Metamyelocytes 1 % (0-1); Monocytes 7 % (0-8); Ovalocytes 1+; Potassium 3.5 meq/L (3.5-5.1); Sodium 136 meq/L (136-145)
[2018-04-06 17:38] LABS: Platelet Estimate Normal (Normal); Platelet Morphology Normal (Normal)
[2018-04-06 17:41] LABS: Alkaline Phosphatase 66 U/L (45-117); Total Protein 7.5 g/dL (6.4-8.2); Troponin I 0.08 ng/mL (0.02-0.05)
[2018-04-06] MEDS ORDERED: Azithromycin Inj 500 MG in Sodium Chlor 0.9% Inj 250 ML IV.SIG ONE (18:29)
[2018-04-06 19:06] LABS: Bilirubin,Urine Negative (Negative); Clarity,Urine Clear (Clear); Color,Urine Yellow (Yellw/Straw); Glucose,Urine (UA) Negative (Negative); Leukocyte Esterase,Urine Negative (Negative); Nitrite,Urine Negative (Negative); Specific Gravity,Urine 1.013 (1.002-1.035)
[2018-04-06] MEDS ORDERED: Bisacodyl 10 MG Supp RECTAL PRN (19:41)
--- NOTE | 2018-04-06 19:49 | P.HPIM ---
History of Present Illness Primary Care Physician: No Primary Care Physician History of Present Illness: This is a 52-year-old male with a PMH of HTN, AIDS ( CD4 <20 02/03/18), ESRD on PD, h/o Disseminated LULU and Thrush who presented to the ER w/ c/o SOB. Pt is poor historian regarding details, notes SOB for "a few days" w/ associated fever. No cough, chest pain or sick contacts. Recent admit 02/02-02/12/18 for diarrhea/abdominal pain, s/p EGD/Colonoscopy w/ gastritis, duodenitis and hemorrhoids, stool +TB, likely Disseminated LULU, s/p eval by ID and started on Clarithromycin/Ethambutol/Rifampin w/ plans for outpatient follow up w/ ID in 1wk post-discharge, however pt has not followed up and cannot tell me if he's been taking his discharge medications, suspect non -compliance. On arrival, BP 124/78, HR 103, O2 sat 100% on RA, Temp 100.5. WBC 4.2. Chemistry at baseline. Lactic Acid 0.7. Troponin 0 0.08. UA negative. CXR with crowding of lung vasculature, no specific infiltrate. S/p Rocephin/Zithro and Bactrim in ER. 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 This includes certification that hospital inpatient services are reasonable and necessary and in the case of services not specified as inpatient-only under 42 CFR 419.22(n), that they are appropriately provided as inpatient services in accordance to with the 2-midnight benchmark under 43 CFR 412.3(e) Estimated Total Length of Stay (Days): 2 Plans for Post Hospital Care: Not yet determined Review of Systems PAST FAMILY HISTORY: Reviewed. No h/o DM or CAD Review of Systems: all other systems reviewed are negative [facility] Medical History Medical History HIV (human immunodeficiency virus infection) (Acute) History of peritoneal dialysis (Acute) Hypotension (Acute) Renal failure (Acute) Social History Social History Substance History: No History of Abuse Second Hand Smoke Exposure: Yes Smoking Status: Never smoker Tobacco Type: Cigarettes How Often Do You Have a Drink Containing Alcohol: Never Recent Travel in [place] within the Last 8 Weeks: No Recent Out of Country Travel within the Last 8 Weeks: No Immunization History Tetanus Immunization: Unsure Medications and Allergies Allergies Allergy/AdvReac Type Severity Reaction Status Date / Time No Known Allergies Allergy Verified 02/02/18 13:58 Home Medications Medication Instructions Recorded Confirmed Type calcium acetate 667 mg PO TID 02/02/18 04/06/18 History abacavir 300 mg PO DAILY 04/06/18 04/06/18 History amlodipine 10 mg PO DAILY 04/06/18 04/06/18 History azithromycin [Zithromax Z-Alexis] PO DIRECTED 04/06/18 History darunavir ethanolate [Prezista] 800 mg PO DAILY 04/06/18 04/06/18 History dolutegravir [Tivicay] 50 mg PO DAILY 04/06/18 04/06/18 History ethambutol [Myambutol] 800 mg PO DAILY 04/06/18 04/06/18 History lisinopril 5 mg PO DAILY 04/06/18 04/06/18 History Active Medications: Active Medications Acetaminophen (Tylenol) 650 mg PO Q4H PRN PRN Reason: Temp > 100.4 Al Hydroxide/Mg Hydroxide (Milk Of Magnesia Liq) 30 ml PO Q12H PRN PRN Reason: Mild Constipation Albuterol (Duoneb Neb (Prn)) 1 ampul NEB Q4HR NEB PRN PRN Reason: SOB/WHEEZING Amlodipine Besylate (Norvasc) 10 mg PO DAILY PIERRE Azithromycin (Zithromax) 1,200 mg PO Q7D PIERRE Bisacodyl (Dulcolax Supp) 10 mg RECTAL DAILY PRN PRN Reason: SEVERE CONSITIPATION Calcium Acetate (Phoslo) 667 mg PO TID PIERRE Clarithromycin (Biaxin) 500 mg PO Q12HR PIERRE Ethambutol HCl (Myambutol) 1,200 mg PO Q48H PIERRE Fluconazole (Diflucan) 100 mg PO DAILY PIERRE Lactulose (Lactulose Liq) 30 ml PO DAILY PRN PRN Reason: SEVERE CONSITIPATION Nystatin (Mycostatin Liq) 5 ml SWISH-SWAL QID PIERRE Ondansetron HCl (Zofran Inj) 4 mg IV.PUSH Q6H PRN PRN Reason: NAUSEA OR VOMITING Rifampin (Rifampin) 300 mg PO Q12HR PIERRE Senna/Docusate Sodium (Dee-Colace) 1 tab PO BID PIERRE Sennosides (Senokot) 17.2 mg PO Q12H PRN PRN Reason: Moderate Constipation Sodium Chloride (Ns Flush) 2 ml IV.FLUSH BID PIERRE Sodium Chloride (Ns Flush) 2 ml IV.FLUSH PRN PRN PRN Reason: FLUSH AFTER USING IV ACCESS Physical Exam Vital signs: Vital Signs 04/06/18 14:29 04/06/18 15:56 04/06/18 16:37 Temperature 99.7 F H Pulse Rate 103 H 111 H Respiratory Rate 20 24 Blood Pressure 124/78 137/90 Pulse Oximetry 100 96 96 04/06/18 16:56 04/06/18 16:58 04/06/18 18:23 Temperature 100.5 F H Pulse Rate 81 84 Respiratory Rate 16 Blood Pressure 146/92 H Pulse Oximetry 97 04/06/18 19:37 Temperature 100.2 F H Pulse Rate 98 H Respiratory Rate 20 Blood Pressure 165/94 H Pulse Oximetry 98 Intake & Output 04/06/18 04/06/18 04/07/18 06:59 18:59 06:59 Intake Total 100 / 100 Balance 100 / 100 Weight 68.492 kg Intake: IV 100 / 100 Rocephin Inj 1,000 MG In NS Inj 100 / 100 100 ML @ 200 mls/hr IV.SIG ONCE ONE Rx#:[id number] Narrative: PE: GENERAL: Pleasant middle-aged black male in no acute distress. SKIN: Focused skin assessment warm and dry. HEENT: PERRLA, EOMI. No scleral icterus or conjunctival pallor. No lid lag or facial droop. CARDIOVASCULAR: Regular rate and rhythm. No obvious murmurs to auscultation. No chest tenderness to palpation. RESPIRATORY: No obvious rhonchi or wheezing. Clear to auscultation. Breath sounds equal bilaterally. GASTROINTESTINAL: Abdomen soft, non-tender, nondistended. BS normal. MUSCULOSKELETAL: Extremities without clubbing, cyanosis, or edema. No obvious deformities. NEUROLOGICAL: Awake, alert and oriented x4. No focal neurologic deficits. Moving both upper and lower extremities spontaneously. PSYCHIATRIC: Appropriate mood and affect. Insight and judgment normal. Results Labs CBC & Chem 7: 04/06/18 16:50 04/06/18 16:50 Imaging Impressions Chest X-Ray 04/06/18 16:33 CONCLUSION: Mid inspiratory study with crowding of the lung vasculature. Caprini VTE Risk Assessment Caprini VTE Risk Assessment: No/Low Risk (score <= 1) Caprini Risk Assessment Model: Point Value = 1 Point Value = 2 Point Value = 3 Point Value = 5 Age 41-60 Minor surgery BMI > 25 kg/m2 Swollen legs Varicose veins or History of unexplained or recurrent spontaneous Oral contraceptives or hormone replacement Sepsis (< 1 month) Serious lung disease, including pneumonia (< 1 month) Abnormal pulmonary function Acute myocardial infarction Congestive heart failure (< 1 month) History of inflammatory bowel disease Medical patient at bed rest Age 61-74 Arthroscopic surgery Major open surgery (> 45 min) Laparoscopic surgery (> 45 min) Malignancy Confined to bed (> 72 hours) Immobilizing plaster cast Central venous access Age >= 75 History of VTE Family history of VTE Factor V Leiden Prothrombin [id number] Lupus anticoagulant Anticardiolipin antibodies Elevated serum homocysteine Heparin-induced thrombocytopenia Other congenital or acquired thrombophilia Stroke (< 1 month) Elective arthroplasty Hip, pelvis, or leg fracture Acute spinal cord injury (< 1 month) Prophylaxis Regimen: Total Risk Factor Score Risk Level Prophylaxis Regimen 0-1 Low Early ambulation 2 Moderate Order ONE of the following: *Sequential Compression Device (SCD) *Heparin 5000 units SQ BID 3-4 Higher Order ONE of the following medications: *Heparin 5000 units SQ TID *Enoxaparin/Lovenox 40 mg SQ daily (WT < 150 kg, CrCl > 30 mL/min) *Enoxaparin/Lovenox 30 mg SQ daily (WT < 150 kg, CrCl > 10-29 mL/min) *Enoxaparin/Lovenox 30 mg SQ BID (WT < 150 kg, CrCl > 30 mL/min) AND/OR *Sequential Compression Device (SCD) 5 or more Highest Order ONE of the following medications: *Heparin 5000 units SQ TID (Preferred with Epidurals) *Enoxaparin/Lovenox 40 mg SQ daily (WT < 150 kg, CrCl > 30 mL/min) *Enoxaparin/Lovenox 30 mg SQ daily (WT < 150 kg, CrCl > 10-29 mL/min) *Enoxaparin/Lovenox 30 mg SQ BID (WT < 150 kg, CrCl > 30 mL/min) AND *Sequential Compression Device (SCD) Assessment and Plan (1) SIRS (systemic inflammatory response syndrome): Code(s): R65.10 - Systemic inflammatory response syndrome (SIRS) of non-infectious origin without acute organ dysfunction Status: Acute (2) Thrush: Code(s): B37.0 - Candidal stomatitis Status: Acute (3) ESRD on peritoneal dialysis: Code(s): N18.6 - End stage renal disease; Z99.2 - Dependence on renal dialysis Status: Acute (4) AIDS: Code(s): B20 - Human immunodeficiency virus [HIV] disease Status: Acute (5) Mycobacterial infection, 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 SIRS: Temp 100.2, HR 103, Source-unclear, +Immunocompromised, will follow up blood cultures, will add AFB Blood Cultures, continue w/ IV antibiotics 2. HIV/AIDS: CD4 <20 on 02/03/18, +non-compliant w/ follow up and antiretrovirals, will hold off on starting antiretrovirals in light of acute febrile episodes and concern for infection. Is to be following w/ Dr. Paul as outpatient, but non-compliant. 3. Thrush: resolved, no dysphagia/odynophagia, monitor closely for recurrence. Continue Protonix. 4. Disseminated LULU: recent admit 02/02-02/12/18, stool AFB +TB, duodenal biopsies indicative of disseminated LULU, non-compliant w/ meds/follow up, continue Clarithromycin/Rifampin/Ethambutol, check AFB blood cultures as above, consult ID for further eval/recommendations. 5. ESRD on PD: last PD yesterday per patient, no significant fluid overload state at this time, follows w/ Dr. Shah, will consult to continue HD, Vanc dosing if needed per ID. 6. DVT Prophylaxis: SCD/Teds 7. Social work for d/c planning as needed. 8. Case discussed w/ ER physician at length, labs/records/imaging reviewed by me.
[2018-04-06] MEDS: Acetaminophen 325 MG Tablet PO PRN (22:07)
[2018-04-06] MEDS: Nystatin Liq 500,000 UNIT/5 ML UDC SWISH-SWAL SCH (22:08)
[2018-04-06] MEDS: Senna/Docusate Sodium 8.6/50 MG Tablet PO SCH (22:08)
[2018-04-06] MEDS ORDERED: Heparin 10,000 UNITS/10 ML Vial (for IV use) OTHER PRN (22:21)
[2018-04-07] MEDS ORDERED: Acetaminophen Inj 650 MG/65 ML VIAL IV.SIG ONE (01:45)
[2018-04-07 09:01] LABS: Albumin 1.7 g/dL (3.4-5.0); Anion Gap 10 meq/L (5-15); Aspartate Aminotransferase 31 U/L (15-37); Blood Urea Nitrogen 31 mg/dL (7-18); Calcium 7.9 mg/dL (8.5-10.1); Carbon Dioxide 27.9 meq/L (21.0-32.0); Chloride 100 meq/L (98-107); Glomerular Filtration Rate 9 mL/min (>89); Glucose,Random 93 mg/dL (74-106); Potassium 3.2 meq/L (3.5-5.1)
[2018-04-07 09:06] LABS: Alanine Aminotransferase 11 U/L (12-78); Alkaline Phosphatase 61 U/L (45-117); Troponin I 0.07 ng/mL (0.02-0.05)
[2018-04-07 09:07] LABS: Sodium 138 meq/L (136-145)
[2018-04-07 09:16] LABS: Hematocrit 30.5 % (39.0-51.0); Hemoglobin 9.4 gm/dL (13.0-17.0); Mean Corpuscular HGB Conc 30.9 % (32.0-36.0); Mean Corpuscular Hemoglobin 26.9 pg (27.0-34.0); Mean Platelet Volume 7.7 fL (7.0-11.0); Platelet Count 278 th/mm3 (150-450); Red Blood Count 3.51 mil/mm3 (4.50-5.90); Red Cell Distribution Width 17.6 % (11.6-17.2); White Blood Count 4.5 th/mm3 (4.0-11.0)
[2018-04-07 09:25] LABS: Eosinophils 1 % (0-4); Lymphocytes 23 % (9-44); Monocytes 6 % (0-8)
[2018-04-07 09:26] LABS: Dohle Bodies Present; Platelet Estimate Normal (Normal); Tear Drop Cells 1+; Toxic Granulation 1+
[2018-04-07 09:28] LABS: Ovalocytes 1+; Platelet Morphology Normal (Normal)
[2018-04-07] MEDS: Fluconazole 100 MG Tablet PO SCH (09:30)
[2018-04-07] MEDS: amLODIPine 10 MG Tablet PO SCH (09:30)
[2018-04-07] MEDS: Senna/Docusate Sodium 8.6/50 MG Tablet PO SCH ×2 (09:30→21:00)
[2018-04-07] MEDS: Calcium Acetate 667 MG Capsule PO SCH ×3 (09:30→18:06)
[2018-04-07] MEDS: Nystatin Liq 500,000 UNIT/5 ML UDC SWISH-SWAL SCH ×4 (09:34→20:59)
--- NOTE | 2018-04-07 13:08 | P.PN ---
Subjective Interval history: t max 101.5 generalized weakness per patient on and off since Monday poor po appetite but deneis any pain or difficulty swallowing denies any diarrhea, still make some urine- no dysruia no abdominal pain ff with Dr. 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 Shah - - deniees any abdominal pain, states PD fluid clear has not had meds for 5 days - as his insurance changed his pharmacy from [facility] from [facility] history of AIDS - HIV diagnosed at 23 y/o last CD4 ct 6 02/04/2108 last admission -EGD/Colnosocpy- biospied - duodenitis suspicouys for Mycobacterium - colon Physical Exam Vital signs: Vital Signs 04/06/18 14:29 04/06/18 15:56 04/06/18 16:37 Temperature 99.7 F H Pulse Rate 103 H 111 H Respiratory Rate 20 24 Blood Pressure 124/78 137/90 Pulse Oximetry 100 96 96 04/06/18 16:56 04/06/18 16:58 04/06/18 18:23 Temperature 100.5 F H Pulse Rate 81 84 Respiratory Rate 16 Blood Pressure 146/92 H Pulse Oximetry 97 04/06/18 19:37 04/06/18 20:03 04/06/18 21:46 Temperature 100.2 F H 102.0 F H Pulse Rate 98 H 100 H Respiratory Rate 20 20 Blood Pressure 165/94 H 142/78 H Pulse Oximetry 98 98 99 04/06/18 22:21 04/07/18 00:00 04/07/18 04:00 Temperature 101.5 F H 98.2 F Pulse Rate 130 H 104 H Respiratory Rate 20 Blood Pressure 122/67 Pulse Oximetry 98 04/07/18 08:00 04/07/18 12:00 Temperature 98.4 F 100.7 F H Pulse Rate 75 115 H Respiratory Rate 18 17 Blood Pressure 136/80 114/72 Pulse Oximetry 98 Intake & Output 04/06/18 04/07/18 04/07/18 18:59 06:59 18:59 Intake Total 415 / 415 100 / 100 Output Total 100 / 100 Balance 315 / 315 100 / 100 Weight 68.492 kg 68.3 kg Intake: IV 415 / 415 100 / 100 Ofirmev Inj 650 mg In 65 ml @ 65 / 65 260 mls/hr IV.SIG ONCE ONE Rx#: [id number] Azithromycin Inj 500 MG In NS 250 / 250 Inj 250 ML @ 250 mls/hr IV.SIG ONCE ONE Rx#:[id number] Maxipime Inj 1,000 MG In NS Inj 100 / 100 100 ML @ 200 mls/hr IV.SIG Q12H PIERRE Rx#:[id number] Rocephin Inj 1,000 MG In NS Inj 100 / 100 100 ML @ 200 mls/hr IV.SIG ONCE ONE Rx#:[id number] Output: Urine 100 / 100 Other: Date of Last Bowel Movement 04/05/18 Narrative: t scotyt 101 anicteric +oral/tongue thrush neck supple no rigidity lungs- no rales regular rhythm abdomens osft, nontender extremities no calf swelling, left leg/foot bigger cmpare to right-per patient chronic moves all extremities spotnaenously Results - Labs CBC & Chem 7: 04/07/18 07:47 04/07/18 07:47 Laboratory Results - last 24 hr 04/06/18 04/06/18 04/06/18 16:50 16:50 16:50 WBC 4.2 RBC 3.14 L Hgb 8.9 L Hct 27.4 L MCV 87.3 MCH 28.3 MCHC 32.5 RDW 18.0 H Plt Count 322 MPV 7.3 Prelim Diff (Auto) Slide review pending WBC Differential Manual diff final Seg Neuts % (Manual) 80 H Band Neuts % (Manual) 4 Lymphocytes % (Manual) 8 L Monocytes % (Manual) 7 Eosinophils % (Manual) Basophils % (Manual) Metamyelocytes % (Man) 1 Abs Neuts (Manual) 3.6 Differential Comment . Toxic Granulation Dohle Bodies Platelet Estimate Normal Platelet Morphology Normal Tear Drop Cells Ovalocytes 1+ H Keratocytes Hematology Comments PT INR APTT Sodium 136 Potassium 3.5 Chloride 101 Carbon Dioxide 27.3 Anion Gap 8 BUN 31 H Creatinine 7.95 H Estimated GFR 9 L Random Glucose 85 Lactic Acid 0.7 Calcium 8.0 L Total Bilirubin 0.3 AST 33 ALT 13 Alkaline Phosphatase 66 Troponin I 0.08 H B-Natriuretic Peptide Total Protein 7.5 Albumin 1.7 L Urine Color Urine Clarity Urine pH Ur Specific [place] Urine Protein Urine Glucose (UA) Urine Ketones Urine Occult Blood Urine Nitrate Urine Bilirubin Urine Urobilinogen Ur Leukocyte Esterase Urine WBC Micro UA Comment Ur Microscopic Review Urine Culture Comments 04/06/18 04/06/18 04/06/18 16:50 16:50 16:50 WBC RBC Hgb Hct MCV MCH MCHC RDW Plt Count MPV Prelim Diff (Auto) WBC Differential Seg Neuts % (Manual) Band Neuts % (Manual) Lymphocytes % (Manual) Monocytes % (Manual) Eosinophils % (Manual) Basophils % (Manual) Metamyelocytes % (Man) Abs Neuts (Manual) Differential Comment Toxic Granulation Dohle Bodies Platelet Estimate Platelet Morphology Tear Drop Cells Ovalocytes Keratocytes Hematology Comments PT 11.8 H INR 1.2 APTT 34.5 H Sodium Potassium Chloride Carbon Dioxide Anion Gap BUN Creatinine Estimated GFR Random Glucose Lactic Acid Calcium Total Bilirubin AST ALT Alkaline Phosphatase Troponin I Cancelled B-Natriuretic Peptide 161 H Total Protein Albumin Urine Color Urine Clarity Urine pH Ur Specific [place] Urine Protein Urine Glucose (UA) Urine Ketones Urine Occult Blood Urine Nitrate Urine Bilirubin Urine Urobilinogen Ur Leukocyte Esterase Urine WBC Micro UA Comment Ur Microscopic Review Urine Culture Comments 04/06/18 04/07/18 04/07/18 18:45 00:00 07:47 WBC 4.5 RBC 3.51 L Hgb 9.4 L Hct 30.5 L MCV 87.0 MCH 26.9 L MCHC 30.9 L RDW 17.6 H Plt Count 278 MPV 7.7 Prelim Diff (Auto) Manual diff required WBC Differential Manual diff final Seg Neuts % (Manual) 65 Band Neuts % (Manual) 2 Lymphocytes % (Manual) 23 Monocytes % (Manual) 6 Eosinophils % (Manual) 1 Basophils % (Manual) 3 H Metamyelocytes % (Man) Abs Neuts (Manual) 3.0 Differential Comment . Toxic Granulation 1+ H Dohle Bodies Present H Platelet Estimate Normal Platelet Morphology Normal Tear Drop Cells 1+ H Ovalocytes 1+ H Keratocytes Occ H Hematology Comments PT INR APTT Sodium Potassium Chloride Carbon Dioxide Anion Gap BUN Creatinine Estimated GFR Random Glucose Lactic Acid Calcium Total Bilirubin AST ALT Alkaline Phosphatase Troponin I 0.08 H B-Natriuretic Peptide Total Protein Albumin Urine Color Yellow Urine Clarity Clear Urine pH 7.0 Ur Specific [place] 1.013 Urine Protein 100 H Urine Glucose (UA) Negative Urine Ketones Negative Urine Occult Blood Negative Urine Nitrate Negative Urine Bilirubin Negative Urine Urobilinogen Less than 2 Ur Leukocyte Esterase Negative Urine WBC 1 Micro UA Comment Culture not ind Ur Microscopic Review Not Reportable Urine Culture Comments Culture not ind 04/07/18 07:47 WBC RBC Hgb Hct MCV MCH MCHC RDW Plt Count MPV Prelim Diff (Auto) WBC Differential Seg Neuts % (Manual) Band Neuts % (Manual) Lymphocytes % (Manual) Monocytes % (Manual) Eosinophils % (Manual) Basophils % (Manual) Metamyelocytes % (Man) Abs Neuts (Manual) Differential Comment Toxic Granulation Dohle Bodies Platelet Estimate Platelet Morphology Tear Drop Cells Ovalocytes Keratocytes Hematology Comments PT INR APTT Sodium 138 Potassium 3.2 L Chloride 100 Carbon Dioxide 27.9 Anion Gap 10 BUN 31 H Creatinine 7.72 H Estimated GFR 9 L Random Glucose 93 Lactic Acid Calcium 7.9 L Total Bilirubin 0.2 AST 31 ALT 11 L Alkaline Phosphatase 61 Troponin I 0.07 H B-Natriuretic Peptide Total Protein 7.0 Albumin 1.7 L Urine Color Urine Clarity Urine pH Ur Specific [place] Urine Protein Urine Glucose (UA) Urine Ketones Urine Occult Blood Urine Nitrate Urine Bilirubin Urine Urobilinogen Ur Leukocyte Esterase Urine WBC Micro UA Comment Ur Microscopic Review Urine Culture Comments Microbiology 04/06/18 16:50 Blood - Peripheral Aerobic Blood Culture - Preliminary No growth in 1 day 04/06/18 16:50 Blood - Peripheral Anaerobic Blood Culture - Preliminary No growth in 1 day 04/06/18 16:45 Blood - Peripheral Aerobic Blood Culture - Preliminary No growth in 1 day 04/06/18 16:45 Blood - Peripheral Anaerobic Blood Culture - Preliminary No growth in 1 day 04/06/18 17:28 Nasal Wash Influenza Types A,B Antigen - Final Negative for FLU A and B antigen Infection due to influenza A or B cannot be ruled out since the antigen present in the sample may be below the detection limit of the test. - Imaging Impressions Chest X-Ray 04/06/18 16:33 CONCLUSION: Mid inspiratory study with crowding of the lung vasculature. Assessment and Plan - Assessment (1) SIRS (systemic inflammatory response syndrome) Code(s): R65.10 - Systemic inflammatory response syndrome (SIRS) of non- infectious origin without acute organ dysfunction Status: Acute (2) Thrush Code(s): B37.0 - Candidal stomatitis Status: Acute (3) ESRD on peritoneal dialysis Code(s): N18.6 - End stage renal disease; Z99.2 - Dependence on renal dialysis Status: Acute (4) AIDS Code(s): B20 - Human immunodeficiency virus [HIV] disease Status: Acute (5) Mycobacterial infection, not TB Code(s): A31.9 - Mycobacterial infection, unspecified Status: Acute - Plan 52 years old with AIDS: last CD4 6- 02/03/18, non-compliant w/ follow up and antiretrovirals Fever -SIRS: , +Immunocompromised likely LULU - ff AFB . Blood Cultures, continue w/ IV antibiotics - UA, CXR clear Disseminated LULU: recent admit 02/02-02/12/18, stool AFB +TB, duodenal biopsies indicative of disseminated LULU, - non-compliant w/ meds/follow up, continue Clarithromycin/Rifampin/Ethambutol, check AFB blood cultures as above, - consult ID for further eval/recommendations. -Infectious disease seerivce consulted -advise compliance with HIV meds and ff up with Dr. Paul as OP Oral/tongue Thrush: no dysphagia/odynophagia - continue on diflucan - started on Nystatin 5 cc 4x a day History of duodenitis -Continue Protonix. ESRD on PD: no significant fluid overload state at this time - per oatient PD fluid clear - follows w/ Dr. Shah- consulted Hypokalemia - give x 1 KCL 25 meq po - recheck BMP in am Dietitian consult DVT Prophylaxis: SCD/Teds- up and ambulate Social work for d/c planning as needed. d/w patient
[2018-04-07] MEDS ORDERED: Potassium Chloride 25 MEQ Effervescent Tablet PO ONE (13:42)
--- NOTE | 2018-04-07 14:22 | P.CONNP ---
History of Present Illness Service: Nephrology Consult date: 04/07/18 Requesting Physician: Rani Guadarrama Reason for Consult: End-stage renal disease on peritoneal dialysis Primary Care Provider: No Primary Care Physician Chief Complaint: Fever and shortness of breath History of Present Illness: Patient is a 52-year-old male with history of AIDS, hypertension, ESRD on peritoneal dialysis with history of disseminated and Mycobacterium avium infection thrush, presented with increasing shortness of breath, generalized malaise, nausea and poor appetite. He received peritoneal dialysis last night. He is on clarithromycin/ethambutol/rifampin, his temperature was 100.5. He follows with Dr. Shah. Review of Systems Constitutional: Reports fatigue, Reports fever(s), Reports weakness Eyes: Denies blind spots, Denies blurry vision, Denies bulging eyes, Denies change in vision, Denies double vision, Denies discharge, Denies dry eyes, Denies floaters, Denies irritation, Denies itchy eyes, Denies loss of vision, Denies pain, Denies requires corrective lenses, Denies sensitivity to light, Denies other Ears, Nose, Mouth, and Throat: Reports dry mouth Cardiovascular: Reports shortness of breath Respiratory: Reports shortness of breath with activity Gastrointestinal: Reports nausea Genitourinary: Reports urinary frequency Musculoskeletal: Reports muscle weakness Skin/Breast: Reports dry skin Neurologic: Reports weakness Psychiatric: Reports depression Endocrine: Denies cold intolerance, Denies excessive sweating, Denies flushing, Denies heat intolerance, Denies increased hunger, Denies increased thirst, Denies increased urination, Denies rapid, pounding, or irregular heartbeat, Denies other Hematologic/Lymphatic: Denies easy bleeding, Denies easy bruising, Denies enlarged lymph nodes, Denies other Allergic/Immunologic: Reports other PMFSH - History History Provided By: Patient - Medical History Medical History: Medical History (Last Reviewed 04/07/18 @ 14:18 by Chad Vela MD) HIV (human immunodeficiency virus infection) History of peritoneal dialysis Hypotension Renal failure - Social History I have reviewed the patient's Social History: Yes - Tobacco History Second Hand Smoke Exposure: No Smoking Status: Never smoker Tobacco Type: Cigarettes - Alcohol History How Often Do You Have a Drink Containing Alcohol: Never - Substance Use History Substance History: No History of Abuse - Travel History Recent Travel in the [facility] Within the Last 8 Weeks: No Recent Travel Out of the Country Within the Last 8 Weeks: No - Immunization History Tetanus Immunization: Unsure Medications and Allergies Active Medications: Active Medications Acetaminophen (Tylenol) 650 mg PO Q4H PRN PRN Reason: Temp > 100.4 Last Admin: 04/06/18 22:07 Dose: 650 mg Al Hydroxide/Mg Hydroxide (Milk Of Magnesia Liq) 30 ml PO Q12H PRN PRN Reason: Mild Constipation Albuterol (Duoneb Neb (Prn)) 1 ampul NEB Q4HR NEB PRN PRN Reason: SOB/WHEEZING Amlodipine Besylate (Norvasc) 10 mg PO DAILY [facility] Last Admin: 04/07/18 09:30 Dose: 10 mg Azithromycin (Zithromax) 1,200 mg PO Q7D [facility] Last Admin: 04/07/18 09:34 Dose: 1,200 mg Bisacodyl (Dulcolax Supp) 10 mg RECTAL DAILY PRN PRN Reason: SEVERE CONSITIPATION Calcium Acetate (Phoslo) 667 mg PO TID [facility] Last Admin: 04/07/18 13:39 Dose: Not Given Clarithromycin (Biaxin) 500 mg PO Q12HR [facility] Last Admin: 04/07/18 09:34 Dose: 500 mg Ethambutol HCl (Myambutol) 1,200 mg PO Q48H [facility] Last Admin: 04/06/18 22:07 Dose: 1,200 mg Fluconazole (Diflucan) 100 mg PO DAILY [facility] Last Admin: 04/07/18 09:30 Dose: 100 mg Heparin Sodium (Porcine) (Heparin Inj) 1,000 units OTHER WITH DIALYSIS PRN PRN Reason: SEE LABEL COMMENTS Cefepime HCl 1,000 mg/ Sodium (Chloride) 100 mls @ 200 mls/hr IV.SIG Q12H [facility] Last Infusion: 04/07/18 10:48 Dose: Infused Lactulose (Lactulose Liq) 30 ml PO DAILY PRN PRN Reason: SEVERE CONSITIPATION Nystatin (Mycostatin Liq) 5 ml SWISH-SWAL QID [facility] Last Admin: 04/07/18 13:39 Dose: Not Given Ondansetron HCl (Zofran Inj) 4 mg IV.PUSH Q6H PRN PRN Reason: NAUSEA OR VOMITING Last Admin: 04/06/18 22:19 Dose: 4 mg Pantoprazole Sodium (Protonix) 40 mg PO DAILY [facility] Last Admin: 04/07/18 09:30 Dose: 40 mg Rifampin (Rifampin) 300 mg PO Q12HR [facility] Last Admin: 04/07/18 09:34 Dose: 300 mg Senna/Docusate Sodium (Dee-Colace) 1 tab PO BID [facility] Last Admin: 04/07/18 09:30 Dose: 1 tab Sennosides (Senokot) 17.2 mg PO Q12H PRN PRN Reason: Moderate Constipation Sodium Chloride (Ns Flush) 2 ml IV.FLUSH BID [facility] Last Admin: 04/07/18 09:30 Dose: 2 ml Sodium Chloride (Ns Flush) 2 ml IV.FLUSH PRN PRN PRN Reason: FLUSH AFTER USING IV ACCESS Sodium Chloride (Ns Flush) 10 ml IV.FLUSH UNSCH PRN PRN Reason: SEE LABEL COMMENTS Allergies Allergy/AdvReac Type Severity Reaction Status Date / Time No Known Allergies Allergy Verified 02/02/18 13:58 Home Medications Medication Instructions Recorded Confirmed Type calcium acetate 667 mg PO TID 02/02/18 04/06/18 History abacavir 300 mg PO DAILY 04/06/18 04/06/18 History amlodipine 10 mg PO DAILY 04/06/18 04/06/18 History azithromycin [Zithromax Z-Alexis] PO DIRECTED 04/06/18 History darunavir ethanolate [Prezista] 800 mg PO DAILY 04/06/18 04/06/18 History dolutegravir [Tivicay] 50 mg PO DAILY 04/06/18 04/06/18 History ethambutol [Myambutol] 800 mg PO DAILY 04/06/18 04/06/18 History lisinopril 5 mg PO DAILY 04/06/18 04/06/18 History Exam Vital signs: Vital Signs 04/06/18 14:29 04/06/18 15:56 04/06/18 16:37 Temperature 99.7 F H Pulse Rate 103 H 111 H Respiratory Rate 20 24 Blood Pressure 124/78 137/90 Pulse Oximetry 100 96 96 04/06/18 16:56 04/06/18 16:58 04/06/18 18:23 Temperature 100.5 F H Pulse Rate 81 84 Respiratory Rate 16 Blood Pressure 146/92 H Pulse Oximetry 97 04/06/18 19:37 04/06/18 20:03 04/06/18 21:46 Temperature 100.2 F H 102.0 F H Pulse Rate 98 H 100 H Respiratory Rate 20 20 Blood Pressure 165/94 H 142/78 H Pulse Oximetry 98 98 99 04/06/18 22:21 04/07/18 00:00 04/07/18 04:00 Temperature 101.5 F H 98.2 F Pulse Rate 130 H 104 H Respiratory Rate 20 Blood Pressure 122/67 Pulse Oximetry 98 04/07/18 08:00 04/07/18 12:00 Temperature 98.4 F 100.7 F H Pulse Rate 75 115 H Respiratory Rate 18 17 Blood Pressure 136/80 114/72 Pulse Oximetry 98 Intake & Output 04/06/18 04/07/18 04/07/18 18:59 06:59 18:59 Intake Total 415 / 415 100 / 100 Output Total 100 / 100 Balance 315 / 315 100 / 100 Weight 68.492 kg 68.3 kg Intake: IV 415 / 415 100 / 100 Ofirmev Inj 650 mg In 65 ml @ 65 / 65 260 mls/hr IV.SIG ONCE ONE Rx#: [id number] Azithromycin Inj 500 MG In NS 250 / 250 Inj 250 ML @ 250 mls/hr IV.SIG ONCE ONE Rx#:[id number] Maxipime Inj 1,000 MG In NS Inj 100 / 100 100 ML @ 200 mls/hr IV.SIG Q12H [facility] Rx#:[id number] Rocephin Inj 1,000 MG In NS Inj 100 / 100 100 ML @ 200 mls/hr IV.SIG ONCE ONE Rx#:[id number] Output: Urine 100 / 100 Other: Date of Last Bowel Movement 04/05/18 Narrative: GENERAL: Ill-appearing, under nourished, well-developed patient. SKIN: Warm and dry. HEAD: Normocephalic. EYES: No scleral icterus. No injection or drainage. NECK: Supple, trachea midline. No JVD or lymphadenopathy. CARDIOVASCULAR: Regular rate and rhythm without murmurs, gallops, or rubs. RESPIRATORY: Breath sounds equal bilaterally. No accessory muscle use. GASTROINTESTINAL: Abdomen soft, non-tender, nondistended. EXTREMITIES: Dry skin muscle wasting NEUROLOGICAL: Awake, alert, and oriented x 3. Non-focal. Results - Lab Results 04/07/18 07:47 04/07/18 07:47 Most recent lab results Calcium 7.9 mg/dL (8.5-10.1) L 04/07/18 07:47 Assessment and Plan - Assessment (1) AIDS Code(s): B20 - Human immunodeficiency virus [HIV] disease Status: Acute (2) Thrush Code(s): B37.0 - Candidal stomatitis Status: Acute (3) Hypokalemia Code(s): E87.6 - Hypokalemia Status: Acute (4) ESRD on peritoneal dialysis Code(s): N18.6 - End stage renal disease; Z99.2 - Dependence on renal dialysis Status: Acute - Plan Patient is started on peritoneal dialysis with well ultrafiltration 1035+ initial drain 526 mL Patient will continue with peritoneal dialysis, replace potassium, patient has infection and AIDS complex infectious diseases following Continue with peritoneal dialysis as above We will monitor electrolytes
--- NOTE | 2018-04-07 15:04 | ECG ---
Date Performed: 04/06/2018 Time Performed: 14:38:43 PTAGE: 52 years EKG: Sinus rhythm MODERATE VOLTAGE CRITERIA FOR LVH, CONSIDER NORMAL VARIANT NONSPECIFIC T-WAVE ABNORMALITY BORDERLINE ECG PREVIOUS TRACING 02/02/18/@20.32 Since the previous tracing, no significant change noted DOCTOR: Marvin Ardon Interpretating Date/Time 04/07/2018 15:02:24
--- NOTE | 2018-04-07 17:18 | P.CONID ---
History of Present Illness Service: Infectious Disease Consult date: 04/07/18 Requesting Physician: Susie Tavares Reason for Consult: Evaluation and Mment of fever in pt with HIV/AIDS Primary Care Provider: No Primary Care Physician Chief Complaint: Fever and shortness of breath History of Present Illness: Patient known to me from past admission. is a 52-year-old -[place] past medical history significant for HIV diagnosed when he was 23 years old. Patient has reported that he used to see RADHA Leslie at Dr. Paul office for his HIV care. He reports that the last time he saw her was approximately 2 years back. When asked patient did not know his most recent CD4 count or viral load. He did not know his current HIV medication regimen. When questioned who was prescribing his HIV medication he replied that it may have been either Dr. Paul office or 's office. The last known CD4 count for the patient is less than 20 in Jan 2018 with high viral load. He was also diagnosed with disseminated LULU during that admission. He is also on Peritoneal dialysis and follows with for the same. Upon questioning he did not know his meds, his last CD4, VL or any of his medical problems like LULU and Oral thrush or esophagitis.At baseline patient is able to wake up in the morning drive his car and go to get some breakfast as well as lunch and stay at the mall for several hours. He thinks he may be depressed because after getting home he pretty much stays in his apartment all day. He reports that he has a partner who lives in [place] but they are not sexually active for the last 6 months. With this background patient presents to the emergency department at [facility] with complaints of generalized weakness, shortness of breath and fevers. 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 He undergoes peritoneal dialysis every night and denies any abdominal pain or discharge from the PD catheter site. On arrival to the emergency department he had fevers, tachycardia. Sepsis workup was initiated. CXR is normal and at present patient denies any Shortness of breath or Chest pain or cough with expectoration. His shortness of breath was acute onset 1 or 2 day prior to admission. Infectious diseases consulted for evaluation and management of possible sepsis, HIV/AIDS. Review of Systems All other systems reviewed negative except as stated in HPI PMFSH - History History Provided By: Patient - Medical History Medical History: Medical History (Last Updated 04/07/18 @ 17:28 by Mehnaz Martines MD) Kayla esophagitis LULU (mycobacterium avium-intracellulare) disseminated infection Thrush of mouth and esophagus HIV (human immunodeficiency virus infection) History of peritoneal dialysis Hypotension Renal failure - Tobacco History Second Hand Smoke Exposure: No Smoking Status: Never smoker Tobacco Type: Cigarettes - Alcohol History How Often Do You Have a Drink Containing Alcohol: Never - Substance Use History Substance History: No History of Abuse - Travel History Recent Travel in the [place] Within the Last 8 Weeks: No Recent Travel Out of the Country Within the Last 8 Weeks: No - Immunization History Tetanus Immunization: Unsure Medications and Allergies Active Medications: Active Medications Acetaminophen (Tylenol) 650 mg PO Q4H PRN PRN Reason: Temp > 100.4 Last Admin: 04/06/18 22:07 Dose: 650 mg Al Hydroxide/Mg Hydroxide (Milk Of Magntricia Liq) 30 ml PO Q12H PRN PRN Reason: Mild Constipation Albuterol (Duoneb Neb (Prn)) 1 ampul NEB Q4HR NEB PRN PRN Reason: SOB/WHEEZING Amlodipine Besylate (Norvasc) 10 mg PO DAILY [facility] Last Admin: 04/07/18 09:30 Dose: 10 mg Azithromycin (Zithromax) 1,200 mg PO Q7D [facility] Last Admin: 04/07/18 09:34 Dose: 1,200 mg Bisacodyl (Dulcolax Supp) 10 mg RECTAL DAILY PRN PRN Reason: SEVERE CONSITIPATION Calcium Acetate (Phoslo) 667 mg PO TID [facility] Last Admin: 04/07/18 13:39 Dose: Not Given Clarithromycin (Biaxin) 500 mg PO Q12HR [facility] Last Admin: 04/07/18 09:34 Dose: 500 mg Ethambutol HCl (Myambutol) 1,200 mg PO Q48H [facility] Last Admin: 04/06/18 22:07 Dose: 1,200 mg Fluconazole (Diflucan) 100 mg PO DAILY [facility] Last Admin: 04/07/18 09:30 Dose: 100 mg Heparin Sodium (Porcine) (Heparin Inj) 1,000 units OTHER WITH DIALYSIS PRN PRN Reason: SEE LABEL COMMENTS Cefepime HCl 1,000 mg/ Sodium (Chloride) 100 mls @ 200 mls/hr IV.SIG Q12H [facility] Last Infusion: 04/07/18 10:48 Dose: Infused Lactulose (Lactulose Liq) 30 ml PO DAILY PRN PRN Reason: SEVERE CONSITIPATION Nystatin (Mycostatin Liq) 5 ml SWISH-SWAL QID [facility] Last Admin: 04/07/18 13:39 Dose: Not Given Ondansetron HCl (Zofran Inj) 4 mg IV.PUSH Q6H PRN PRN Reason: NAUSEA OR VOMITING Last Admin: 04/06/18 22:19 Dose: 4 mg Pantoprazole Sodium (Protonix) 40 mg PO DAILY [facility] Last Admin: 04/07/18 09:30 Dose: 40 mg Potassium Bicarbonate (Effer-K) 25 meq PO DAILY [facility] Rifampin (Rifampin) 300 mg PO Q12HR [facility] Last Admin: 04/07/18 09:34 Dose: 300 mg Senna/Docusate Sodium (Dee-Colace) 1 tab PO BID [facility] Last Admin: 04/07/18 09:30 Dose: 1 tab Sennosides (Senokot) 17.2 mg PO Q12H PRN PRN Reason: Moderate Constipation Sodium Chloride (Ns Flush) 2 ml IV.FLUSH BID [facility] Last Admin: 04/07/18 09:30 Dose: 2 ml Sodium Chloride (Ns Flush) 2 ml IV.FLUSH PRN PRN PRN Reason: FLUSH AFTER USING IV ACCESS Sodium Chloride (Ns Flush) 10 ml IV.FLUSH UNSCH PRN PRN Reason: SEE LABEL COMMENTS Allergies Allergy/AdvReac Type Severity Reaction Status Date / Time No Known Allergies Allergy Verified 02/02/18 13:58 Home Medications Medication Instructions Recorded Confirmed Type calcium acetate 667 mg PO TID 02/02/18 04/06/18 History abacavir 300 mg PO DAILY 04/06/18 04/06/18 History amlodipine 10 mg PO DAILY 04/06/18 04/06/18 History azithromycin [Zithromax Z-Alexis] PO DIRECTED 04/06/18 History darunavir ethanolate [Prezista] 800 mg PO DAILY 04/06/18 04/06/18 History dolutegravir [Tivicay] 50 mg PO DAILY 04/06/18 04/06/18 History ethambutol [Myambutol] 800 mg PO DAILY 04/06/18 04/06/18 History lisinopril 5 mg PO DAILY 04/06/18 04/06/18 History Exam Vital signs: Vital Signs 04/06/18 18:23 04/06/18 19:37 04/06/18 20:03 Temperature 100.5 F H 100.2 F H Pulse Rate 98 H Respiratory Rate 20 Blood Pressure 165/94 H Pulse Oximetry 98 98 04/06/18 21:46 04/06/18 22:21 04/07/18 00:00 Temperature 102.0 F H 101.5 F H Pulse Rate 100 H 130 H 104 H Respiratory Rate 20 20 Blood Pressure 142/78 H 122/67 Pulse Oximetry 99 98 04/07/18 04:00 04/07/18 08:00 04/07/18 12:00 Temperature 98.2 F 98.4 F 100.7 F H Pulse Rate 75 115 H Respiratory Rate 18 17 Blood Pressure 136/80 114/72 Pulse Oximetry 98 04/07/18 16:00 Temperature 100.3 F H Pulse Rate 107 H Respiratory Rate 18 Blood Pressure 134/82 Pulse Oximetry 99 Intake & Output 04/06/18 04/07/18 04/07/18 18:59 06:59 18:59 Intake Total 415 / 415 100 / 100 Output Total 100 / 100 Balance 315 / 315 100 / 100 Weight 68.492 kg 68.3 kg Intake: IV 415 / 415 100 / 100 Ofirmev Inj 650 mg In 65 ml @ 65 / 65 260 mls/hr IV.SIG ONCE ONE Rx#: [id number] Azithromycin Inj 500 MG In NS 250 / 250 Inj 250 ML @ 250 mls/hr IV.SIG ONCE ONE Rx#:[id number] Maxipime Inj 1,000 MG In NS Inj 100 / 100 100 ML @ 200 mls/hr IV.SIG Q12H [facility] Rx#:[id number] Rocephin Inj 1,000 MG In NS Inj 100 / 100 100 ML @ 200 mls/hr IV.SIG ONCE ONE Rx#:[id number] Output: Urine 100 / 100 Other: Date of Last Bowel Movement 04/05/18 Narrative: GENERAL: Thin built poorly nourished, not in acute distress SKIN: Cool and dry, no generalized rash HEAD: Atraumatic. Normocephalic. No temporal or scalp tenderness. EYES: Pupils equal round and reactive. Scleral icterus. No injection or drainage. No petechia ENT: Nothing abnormal detected. Foul smelling mouth. No thrush NECK: Trachea midline. Supple, nontender, no meningeal signs. CARDIOVASCULAR: HS audible. RESPIRATORY: Clear to auscultation bilaterally. GASTROINTESTINAL: Abdomen soft nontender. PD cath site ok. MUSCULOSKELETAL: Extremities without clubbing, cyanosis. NEUROLOGICAL: Alert oriented 3. Nonfocal. Psych cooperative IV line sites ok. Results - Labs CBC & Chem 7: 04/07/18 07:47 04/07/18 07:47 Labs: Laboratory Results - last 24 hr 04/06/18 04/06/18 04/06/18 16:50 16:50 16:50 WBC RBC Hgb Hct MCV MCH MCHC RDW Plt Count MPV Prelim Diff (Auto) WBC Differential Manual diff final Seg Neuts % (Manual) 80 H Band Neuts % (Manual) 4 Lymphocytes % (Manual) 8 L Monocytes % (Manual) 7 Eosinophils % (Manual) Basophils % (Manual) Metamyelocytes % (Man) 1 Abs Neuts (Manual) 3.6 Differential Comment Toxic Granulation Dohle Bodies Platelet Estimate Normal Platelet Morphology Normal Tear Drop Cells Ovalocytes 1+ H Keratocytes Hematology Comments Sodium 136 Potassium 3.5 Chloride 101 Carbon Dioxide 27.3 Anion Gap 8 BUN 31 H Creatinine 7.95 H Estimated GFR 9 L Random Glucose 85 Lactic Acid 0.7 Calcium 8.0 L Total Bilirubin 0.3 AST 33 ALT 13 Alkaline Phosphatase 66 Troponin I 0.08 H B-Natriuretic Peptide Total Protein 7.5 Albumin 1.7 L Urine Color Urine Clarity Urine pH Ur Specific [place] Urine Protein Urine Glucose (UA) Urine Ketones Urine Occult Blood Urine Nitrate Urine Bilirubin Urine Urobilinogen Ur Leukocyte Esterase Urine WBC Micro UA Comment Ur Microscopic Review Urine Culture Comments 04/06/18 04/06/18 04/07/18 16:50 18:45 00:00 WBC RBC Hgb Hct MCV MCH MCHC RDW Plt Count MPV Prelim Diff (Auto) WBC Differential Seg Neuts % (Manual) Band Neuts % (Manual) Lymphocytes % (Manual) Monocytes % (Manual) Eosinophils % (Manual) Basophils % (Manual) Metamyelocytes % (Man) Abs Neuts (Manual) Differential Comment Toxic Granulation Dohle Bodies Platelet Estimate Platelet Morphology Tear Drop Cells Ovalocytes Keratocytes Hematology Comments Sodium Potassium Chloride Carbon Dioxide Anion Gap BUN Creatinine Estimated GFR Random Glucose Lactic Acid Calcium Total Bilirubin AST ALT Alkaline Phosphatase Troponin I 0.08 H B-Natriuretic Peptide 161 H Total Protein Albumin Urine Color Yellow Urine Clarity Clear Urine pH 7.0 Ur Specific [place] 1.013 Urine Protein 100 H Urine Glucose (UA) Negative Urine Ketones Negative Urine Occult Blood Negative Urine Nitrate Negative Urine Bilirubin Negative Urine Urobilinogen Less than 2 Ur Leukocyte Esterase Negative Urine WBC 1 Micro UA Comment Culture not ind Ur Microscopic Review Not Reportable Urine Culture Comments Culture not ind 04/07/18 04/07/18 07:47 07:47 WBC 4.5 RBC 3.51 L Hgb 9.4 L Hct 30.5 L MCV 87.0 MCH 26.9 L MCHC 30.9 L RDW 17.6 H Plt Count 278 MPV 7.7 Prelim Diff (Auto) Manual diff required WBC Differential Manual diff final Seg Neuts % (Manual) 65 Band Neuts % (Manual) 2 Lymphocytes % (Manual) 23 Monocytes % (Manual) 6 Eosinophils % (Manual) 1 Basophils % (Manual) 3 H Metamyelocytes % (Man) Abs Neuts (Manual) 3.0 Differential Comment . Toxic Granulation 1+ H Dohle Bodies Present H Platelet Estimate Normal Platelet Morphology Normal Tear Drop Cells 1+ H Ovalocytes 1+ H Keratocytes Occ H Hematology Comments Sodium 138 Potassium 3.2 L Chloride 100 Carbon Dioxide 27.9 Anion Gap 10 BUN 31 H Creatinine 7.72 H Estimated GFR 9 L Random Glucose 93 Lactic Acid Calcium 7.9 L Total Bilirubin 0.2 AST 31 ALT 11 L Alkaline Phosphatase 61 Troponin I 0.07 H B-Natriuretic Peptide Total Protein 7.0 Albumin 1.7 L Urine Color Urine Clarity Urine pH Ur Specific [place] Urine Protein Urine Glucose (UA) Urine Ketones Urine Occult Blood Urine Nitrate Urine Bilirubin Urine Urobilinogen Ur Leukocyte Esterase Urine WBC Micro UA Comment Ur Microscopic Review Urine Culture Comments - Imaging Chest X-Ray 04/06/18 16:33 CONCLUSION: Mid inspiratory study with crowding of the lung vasculature. Assessment and Plan - Plan Sepsis in an Immune compromised host. Disseminated LULU on treatment ? compliance (AIDS defining illness) HIV/AIDS Prior Kayla Esophagitis (AIDS defining illness) CKD ? HIV related. On peritoneal dialysis. ? Pneumonia. Low suspicion for PCP. Non compliance with follow ups and medications. Recs: Continue Cefepime IV Check CD4, VL Follow AFB blood culture Check LDH Will dw Nephro about CT chest with IV contrast in view of CKD and timing of contrast as he is on PD. Continue LULU regimen if patient non compliant will need palliative care consult to address goals of therapy. Start PCP prophylaxis with Pentamidine. Continue Diflucan for oral thrush prophylaxis. HOld HAART patient reports he last saw HIV provider in Jan 2017. Will contact Health dept and office to find out who is following him for the LULU treatment and HAART therapy. Patient was last instructed and was supposed to follow up with Dr.Reba Paul office per my last note prior to discharge. Follow cultures Follow clinical course.
[2018-04-08 08:36] LABS: Calcium 7.5 mg/dL (8.5-10.1); Carbon Dioxide 28.1 meq/L (21.0-32.0); Potassium 3.5 meq/L (3.5-5.1)
[2018-04-08] MEDS: amLODIPine 10 MG Tablet PO SCH (09:33)
[2018-04-08] MEDS: Fluconazole 100 MG Tablet PO SCH (09:33)
[2018-04-08] MEDS: Acetaminophen 325 MG Tablet PO PRN (09:33)
[2018-04-08] MEDS: Calcium Acetate 667 MG Capsule PO SCH ×3 (09:33→17:28)
[2018-04-08] MEDS: Senna/Docusate Sodium 8.6/50 MG Tablet PO SCH ×2 (09:33→21:22)
[2018-04-08] MEDS: Potassium Bicarbonate 25 MEQ Effervescent Tablet PO SCH (09:34)
[2018-04-08] MEDS: Nystatin Liq 500,000 UNIT/5 ML UDC SWISH-SWAL SCH ×4 (09:34→21:22)
--- NOTE | 2018-04-08 12:37 | P.PN ---
Subjective Interval history: t max 101.5 generalized weakness per patient on and off since Monday poor po appetite but deneis any pain or difficulty swallowing denies any diarrhea, still make some urine- no dysruia no abdominal pain ff with Dr. 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 Shah - - deniees any abdominal pain, states PD fluid clear has not had meds for 5 days - as his insurance changed his pharmacy from [facility] from [facility] history of AIDS - HIV diagnosed at 23 y/o last CD4 ct 6 02/04/2108 last admission -EGD/Colnosocpy- biospied - duodenitis suspicouys for Mycobacterium - colon Physical Exam Vital signs: Vital Signs 04/07/18 16:00 04/07/18 20:00 04/07/18 21:30 Temperature 100.3 F H 99.5 F Pulse Rate 107 H 88 70 Respiratory Rate 18 18 20 Blood Pressure 134/82 123/77 Pulse Oximetry 99 98 98 04/07/18 21:45 04/08/18 00:00 04/08/18 04:00 Temperature 98.6 F 100 F H Pulse Rate 89 106 H 100 H Respiratory Rate 20 19 16 Blood Pressure 118/61 118/77 Pulse Oximetry 99 99 04/08/18 08:00 04/08/18 08:58 Temperature 100.6 F H Pulse Rate 87 Respiratory Rate 18 Blood Pressure 119/74 Pulse Oximetry 97 97 Intake & Output 04/07/18 04/08/18 04/08/18 18:59 06:59 18:59 Intake Total 1100 / 1100 820 / 820 Output Total 200 / 200 1335 / 1335 620 / 620 Balance 900 / 900 -515 / -515 -620 / -620 Weight 68.8 kg Intake: IV 100 / 100 100 / 100 Maxipime Inj 1,000 MG In NS Inj 100 / 100 100 / 100 100 ML @ 200 mls/hr IV.SIG Q12H [facility] Rx#:[id number] Oral 1000 / 1000 720 / 720 Output: Urine 200 / 200 300 / 300 Peritoneal Amount 1035 / 1035 620 / 620 Narrative: GENERAL: not in acute distress, pleasant and cooperative atraumatic EYES: Pupils equal round and reactive. Scleral icterus. No injection or drainage. No petechia oral thrush neck Supple, nontender, no meningeal signs. regular rhythm clear breath sounds . Extremities without clubbing, cyanosis. NEUROLOGICAL: Alert oriented 3. Nonfocal. Results - Labs CBC & Chem 7: 04/07/18 07:47 04/08/18 07:12 Laboratory Results - last 24 hr 04/08/18 07:12 Sodium 135 L Potassium 3.5 Chloride 99 Carbon Dioxide 28.1 Anion Gap 8 BUN 31 H Creatinine 8.36 H Estimated GFR 8 L Random Glucose 83 Calcium 7.5 L Microbiology 04/06/18 16:50 Blood - Peripheral Aerobic Blood Culture - Preliminary No growth in 2 days 04/06/18 16:50 Blood - Peripheral Anaerobic Blood Culture - Preliminary No growth in 2 days 04/06/18 16:45 Blood - Peripheral Aerobic Blood Culture - Preliminary No growth in 2 days 04/06/18 16:45 Blood - Peripheral Anaerobic Blood Culture - Preliminary No growth in 2 days Assessment and Plan - Assessment (1) SIRS (systemic inflammatory response syndrome) Code(s): R65.10 - Systemic inflammatory response syndrome (SIRS) of non- infectious origin without acute organ dysfunction Status: Acute (2) Thrush Code(s): B37.0 - Candidal stomatitis Status: Acute (3) ESRD on peritoneal dialysis Code(s): N18.6 - End stage renal disease; Z99.2 - Dependence on renal dialysis Status: Acute (4) AIDS Code(s): B20 - Human immunodeficiency virus [HIV] disease Status: Acute (5) Mycobacterial infection, not TB Code(s): A31.9 - Mycobacterial infection, unspecified Status: Acute - Plan 52 years old with AIDS: last CD4 6- 02/03/18, non-compliant w/ follow up and antiretrovirals Fever -SIRS: , +Immunocompromised likely LULU - ff AFB . Blood Cultures, continue w/ IV antibiotics - UA, CXR clear Disseminated LULU: recent admit 02/02-02/12/18, stool AFB +TB, duodenal biopsies indicative of disseminated LULU, - non-compliant w/ meds/follow up, continue Clarithromycin/Rifampin/Ethambutol, check AFB blood cultures as above, - consult ID for further eval/recommendations. -Infectious disease seerivce consulted -advise compliance with HIV meds and ff up with Dr. Paul as OP Oral/tongue Thrush: no dysphagia/odynophagia - continue on diflucan - started on Nystatin 5 cc 4x a day History of duodenitis -Continue Protonix. ESRD on PD: no significant fluid overload state at this time - per oatient PD fluid clear - follows w/ Dr. Shah- consulted Hypokalemia - give x 1 KCL 25 meq po - recheck BMP in am Dietitian consult DVT Prophylaxis: SCD/Teds- up and ambulate Social work for d/c planning as needed. d/w patient
--- NOTE | 2018-04-08 12:50 | P.PN ---
Subjective Interval history: still with low grade fever but clinically appears well denies any nausea or vomting had some loose stools earlier- but states this is the first time he ate most no cough no abdominal pain no diffiutly [place] Physical Exam Vital signs: Vital Signs 04/07/18 16:00 04/07/18 20:00 04/07/18 21:30 Temperature 100.3 F H 99.5 F Pulse Rate 107 H 88 70 Respiratory Rate 18 18 20 Blood Pressure 134/82 123/77 Pulse Oximetry 99 98 98 04/07/18 21:45 04/08/18 00:00 04/08/18 04:00 Temperature 98.6 F 100 F H Pulse Rate 89 106 H 100 H Respiratory Rate 20 19 16 Blood Pressure 118/61 118/77 Pulse Oximetry 99 99 04/08/18 08:00 04/08/18 08:58 Temperature 100.6 F H Pulse Rate 87 Respiratory Rate 18 Blood Pressure 119/74 Pulse Oximetry 97 97 Intake & Output 04/07/18 04/08/18 04/08/18 18:59 06:59 18:59 Intake Total 1100 / 1100 820 / 820 Output Total 200 / 200 1335 / 1335 620 / 620 Balance 900 / 900 -515 / -515 -620 / -620 Weight 68.8 kg Intake: IV 100 / 100 100 / 100 Maxipime Inj 1,000 MG In NS Inj 100 / 100 100 / 100 100 ML @ 200 mls/hr IV.SIG Q12H [facility] Rx#:[id number] Oral 1000 / 1000 720 / 720 Output: Urine 200 / 200 300 / 300 Peritoneal Amount 1035 / 1035 620 / 620 Narrative: GENERAL: not in acute distress, pleasant and cooperative atraumatic EYES: Pupils equal round and reactive. Scleral icterus. No injection or drainage. No petechia +oral/tongue thrush neck Supple, nontender, no meningeal signs. regular rhythm clear breath sounds . abdomen soft, PD cthter site no signs of infection Extremities without clubbing, cyanosis. NEUROLOGICAL: Alert oriented 3. Nonfocal. Results - Labs CBC & Chem 7: 04/07/18 07:47 04/08/18 07:12 Laboratory Results - last 24 hr 04/08/18 07:12 Sodium 135 L Potassium 3.5 Chloride 99 Carbon Dioxide 28.1 Anion Gap 8 BUN 31 H Creatinine 8.36 H Estimated GFR 8 L Random Glucose 83 Calcium 7.5 L Microbiology 04/06/18 16:50 Blood - Peripheral Aerobic Blood Culture - Preliminary No growth in 2 days 04/06/18 16:50 Blood - Peripheral Anaerobic Blood Culture - Preliminary No growth in 2 days 04/06/18 16:45 Blood - Peripheral Aerobic Blood Culture - Preliminary No growth in 2 days 04/06/18 16:45 Blood - Peripheral Anaerobic Blood Culture - Preliminary No growth in 2 days Assessment and Plan - Assessment (1) SIRS (systemic inflammatory response syndrome) Code(s): R65.10 - Systemic inflammatory response syndrome (SIRS) of non- infectious origin without acute organ dysfunction Status: Acute (2) Thrush Code(s): B37.0 - Candidal stomatitis Status: Acute (3) ESRD on peritoneal dialysis Code(s): N18.6 - End stage renal disease; Z99.2 - Dependence on renal dialysis Status: Acute (4) AIDS Code(s): B20 - Human immunodeficiency virus [HIV] disease Status: Acute (5) Mycobacterial infection, not TB Code(s): A31.9 - Mycobacterial infection, unspecified Status: Acute - Plan 52 years old with AIDS: last CD4 6- 02/03/18, non-compliant w/ follow up and antiretrovirals Fever -SIRS: , +Immunocompromised likely LULU - ff AFB cultures pending . Blood Cultures- negative last 48 - continue w/ IV antibiotics- on Cefepime - UA, CXR clear - Dr. hess- ID ff along with us Disseminated LULU: recent admit 02/02-02/12/18, stool AFB +TB, duodenal biopsies indicative of disseminated LULU, - non-compliant w/ meds/follow up, continue Clarithromycin/Rifampin/Ethambutol, check AFB blood cultures as above, = appreciate Dr. hess ff along with us -advise compliance with HIV meds and ff up with Dr. Paul as OP Oral/tongue Thrush: no dysphagia/odynophagia - continue on diflucan - on Nystatin 5 cc 4x a day History of duodenitis -Continue Protonix. ESRD on PD: no significant fluid overload state at this time - PD fluid clear - Nephrology ff Hypokalemia- corrected Dietitian consult DVT Prophylaxis: SCD/Teds- up and ambulate Social work for d/c planning as needed. d/w patient
--- NOTE | 2018-04-08 14:33 | P.PNNP ---
Subjective Interval history: Patient feels tired appetite is poor Physical Exam Vital signs: Vital Signs 04/07/18 16:00 04/07/18 20:00 04/07/18 21:30 Temperature 100.3 F H 99.5 F Pulse Rate 107 H 88 70 Respiratory Rate 18 18 20 Blood Pressure 134/82 123/77 Pulse Oximetry 99 98 98 04/07/18 21:45 04/08/18 00:00 04/08/18 04:00 Temperature 98.6 F 100 F H Pulse Rate 89 106 H 100 H Respiratory Rate 20 19 16 Blood Pressure 118/61 118/77 Pulse Oximetry 99 99 04/08/18 08:00 04/08/18 08:58 04/08/18 12:00 Temperature 100.6 F H 98.8 F Pulse Rate 87 80 Respiratory Rate 18 18 Blood Pressure 119/74 127/71 Pulse Oximetry 97 97 100 Intake & Output 04/07/18 04/08/18 04/08/18 18:59 06:59 18:59 Intake Total 1100 / 1100 820 / 820 100 / 100 Output Total 200 / 200 1335 / 1335 620 / 620 Balance 900 / 900 -515 / -515 -520 / -520 Weight 68.8 kg Intake: IV 100 / 100 100 / 100 100 / 100 Maxipime Inj 1,000 MG In NS Inj 100 / 100 100 / 100 100 / 100 100 ML @ 200 mls/hr IV.SIG Q12H [facility] Rx#:[id number] Oral 1000 / 1000 720 / 720 Output: Urine 200 / 200 300 / 300 Peritoneal Amount 1035 / 1035 620 / 620 Narrative: GENERAL: not in acute distress, pleasant and cooperative atraumatic EYES: Pupils equal round and reactive. Scleral icterus. No injection or drainage. No petechia +oral/tongue thrush neck Supple, nontender, no meningeal signs. regular rhythm clear breath sounds . abdomen soft, PD cthter site no signs of infection Extremities without clubbing, cyanosis. NEUROLOGICAL: Alert oriented 3. Nonfocal. Assessment and Plan - Assessment (1) AIDS Code(s): B20 - Human immunodeficiency virus [HIV] disease Status: Acute (2) Thrush Code(s): B37.0 - Candidal stomatitis Status: Acute (3) Hypokalemia Code(s): E87.6 - Hypokalemia Status: Acute (4) ESRD on peritoneal dialysis Code(s): N18.6 - End stage renal disease; Z99.2 - Dependence on renal dialysis Status: Acute - Plan Patient is started on peritoneal dialysis Continue to monitor ultrafiltration of 620 ml Potassium is better Patient is treated for LULU complex Follow-up with Dr. Shah
--- NOTE | 2018-04-08 14:50 | P.DIET ---
Nutritional Evaluation Type of nutrition evaluation: initial Nutrition consult regarding: Diet Evaluation Nutrition screening: Poor PO Intake Screening comments: 04/08/18 [facility] [place] Objective - Diagnosis SIRS, hx of HIV - Objective Body Mass Index: 21.8 % IBW: 90 (IBW = 166lb) Body Weight Used for Calculations: Actual (68.8kg) Energy Needs - Lower Range (kCal/kg): 30 Energy Needs - Upper Range (kCal/kg): 35 Lower Limit kCal/kg (kCals): 2,064 Upper Limit kCal/kg (kCals): 2,408 Lower Limit Protein Factor (Grams per Kg): 1.2 Upper Limit Protein Factor (Grams per Kg): 1.4 Lower Protein Needs (Protein): 83 Upper Protein Needs (Protein): 96 Dietitian Reviewed in Medical Record: Current diet, Curent medications, Intake & Output, Labs, Medical history Diet Order: regular Oral Diet Intake Amount: Fair 50-75% Objective Comments: PMH: ESRD on PD, HIV, thrush of mouth and esophagus Labs: BUN 31, Cr 8.36, estGFR 8 PD output amount 1035mL Assessment Assessment: Pt currently at nutritional risk r/t poor PO intake and diagnosis. Pt currently consuming a regular diet w/ variable PO intake of 50-100% consumed for most meal trays. Pt has ESRD and is on PD now, RD to recommend Nepro TID as PO supplement for additional nutrition. Pt has thrush but does not have any problems swallowing per MD note. Continue to monitor PO and supplement intake, renal labs. Labs reviewed, dietitian following. Recommendations: 1. RD to recommend Nepro TID as PO supplement for additional nutrition 2. Continue to monitor PO and supplement intake, renal labs 3. Dietitian following Dietitian to Monitor: Lab values, Renal labs, Supplement acceptance, Intake & Output, Diet tolerance, Weight change, PO Intake, Medical course
--- NOTE | 2018-04-08 17:32 | P.PNID ---
Subjective Remarks: is a 52-year-old -[place] past medical history significant for HIV diagnosed when he was 23 years old. Patient has reported that he used to see RADHA Leslie at Dr. Paul office for his HIV care. He reports that the last time he saw her was approximately 2 years back. When asked patient did not know his most recent CD4 count or viral load. He did not know his current HIV medication regimen. When questioned who was prescribing his HIV medication he replied that it may have been either Dr. Paul office or 's office. The last known CD4 count for the patient is less than 20 in Jan 2018 with high viral load. He was also diagnosed with disseminated LULU during that admission. He is also on Peritoneal dialysis and follows with for the same. Upon questioning he did not know his meds, his last CD4, VL or any of his medical problems like LULU and Oral thrush or esophagitis.At baseline patient is able to wake up in the morning drive his car and go to get some breakfast as well as lunch and stay at the mall for several hours. He thinks he may be depressed because after getting home he pretty much stays in his apartment all day. He reports that he has a partner who lives in [place] but they are not sexually active for the last 6 months. With this background patient presents [facility] department at [facility] with complaints of generalized weakness, shortness of breath and fevers. His clinical coder asked him to come to hospital per patient. He undergoes peritoneal dialysis every night and denies any abdominal pain or discharge from the PD catheter site. On arrival to the emergency department he had fevers, tachycardia. Sepsis workup was initiated. CXR is normal and at present patient denies any Shortness of breath or Chest pain or cough with expectoration. His shortness of breath was acute onset 1 or 2 day prior to admission. Infectious diseases consulted for evaluation and management of possible sepsis, HIV/AIDS. Overnight events reviewed no fevers no rash No diarrhea Dw patient he reports he did not follow up with ID for HIV and LULU care. He is not compliant with follow ups and medications. Antibiotics: Cefepime IV LULU regimen: Clarithro, Ethambutol, Rifampin Pentamidine inhalation on 04/09/2018 Lines: Lines ok Past Medical History: reviewed Allergies/Adverse Reactions: Allergies No Known Allergies Allergy (Verified 02/02/18 13:58) Objective Vital Signs 04/07/18 20:00 04/07/18 21:30 04/07/18 21:45 Temperature 99.5 F Pulse Rate 88 70 89 Respiratory Rate 18 20 20 Blood Pressure 123/77 Pulse Oximetry 98 98 04/08/18 00:00 04/08/18 04:00 04/08/18 08:00 Temperature 98.6 F 100 F H 100.6 F H Pulse Rate 106 H 100 H 87 Respiratory Rate 19 16 18 Blood Pressure 118/61 118/77 119/74 Pulse Oximetry 99 99 97 04/08/18 08:58 04/08/18 12:00 Temperature 98.8 F Pulse Rate 80 Respiratory Rate 18 Blood Pressure 127/71 Pulse Oximetry 97 100 Intake & Output 04/07/18 04/08/18 04/08/18 18:59 06:59 18:59 Intake Total 1100 / 1100 820 / 820 100 / 100 Output Total 200 / 200 1335 / 1335 620 / 620 Balance 900 / 900 -515 / -515 -520 / -520 Weight 68.8 kg Intake: IV 100 / 100 100 / 100 100 / 100 Maxipime Inj 1,000 MG In NS Inj 100 / 100 100 / 100 100 / 100 100 ML @ 200 mls/hr IV.SIG Q12H [facility] Rx#:[id number] Oral 1000 / 1000 720 / 720 Output: Urine 200 / 200 300 / 300 Peritoneal Amount 1035 / 1035 620 / 620 04/06/18 16:50 Blood - Peripheral Aerobic Blood Culture - Preliminary No growth in 2 days 04/06/18 16:50 Blood - Peripheral Anaerobic Blood Culture - Preliminary No growth in 2 days 04/06/18 16:45 Blood - Peripheral Aerobic Blood Culture - Preliminary No growth in 2 days 04/06/18 16:45 Blood - Peripheral Anaerobic Blood Culture - Preliminary No growth in 2 days 04/06/18 20:44 Blood - Peripheral Mycobacterial Culture - Pending 04/06/18 17:28 Nasal Wash Influenza Types A,B Antigen - Final Negative for FLU A and B antigen Infection due to influenza A or B cannot be ruled out since the antigen present in the sample may be below the detection limit of the test. Lab - Hematology Results 04/06/18 04/07/18 16:50 07:47 WBC 4.5 RBC 3.51 L Hgb 9.4 L Hct 30.5 L MCV 87.0 MCH 26.9 L MCHC 30.9 L RDW 17.6 H Plt Count 278 MPV 7.7 Prelim Diff (Auto) Manual diff required WBC Differential Manual diff final Manual diff final Seg Neuts % (Manual) 80 H 65 Band Neuts % (Manual) 4 2 Lymphocytes % (Manual) 8 L 23 Monocytes % (Manual) 7 6 Eosinophils % (Manual) 1 Basophils % (Manual) 3 H Metamyelocytes % (Man) 1 Abs Neuts (Manual) 3.6 3.0 Differential Comment . Toxic Granulation 1+ H Dohle Bodies Present H Platelet Estimate Normal Normal Platelet Morphology Normal Normal Tear Drop Cells 1+ H Ovalocytes 1+ H 1+ H Keratocytes Occ H Hematology Comments Lab - Chemistry Results 04/06/18 04/06/18 04/07/18 16:50 16:50 00:00 Sodium 136 Potassium 3.5 Chloride 101 Carbon Dioxide 27.3 Anion Gap 8 BUN 31 H Creatinine 7.95 H Estimated GFR 9 L Random Glucose 85 Calcium 8.0 L Total Bilirubin 0.3 AST 33 ALT 13 Alkaline Phosphatase 66 Troponin I 0.08 H 0.08 H B-Natriuretic Peptide 161 H Total Protein 7.5 Albumin 1.7 L 04/07/18 04/08/18 07:47 07:12 Sodium 138 135 L Potassium 3.2 L 3.5 Chloride 100 99 Carbon Dioxide 27.9 28.1 Anion Gap 10 8 BUN 31 H 31 H Creatinine 7.72 H 8.36 H Estimated GFR 9 L 8 L Random Glucose 93 83 Calcium 7.9 L 7.5 L Total Bilirubin 0.2 AST 31 ALT 11 L Alkaline Phosphatase 61 Troponin I 0.07 H B-Natriuretic Peptide Total Protein 7.0 Albumin 1.7 L Imaging: ITS Impressions Chest X-Ray 04/06/18 16:33 CONCLUSION: Mid inspiratory study with crowding of the lung vasculature. Physical Exam: GENERAL: Thin built poorly nourished, not in acute distress SKIN: Cool and dry, no generalized rash HEAD: Atraumatic. Normocephalic. No temporal or scalp tenderness. EYES: Pupils equal round and reactive. Scleral icterus. No injection or drainage. No petechia ENT: Nothing abnormal detected. Foul smelling mouth. No thrush NECK: Trachea midline. Supple, nontender, no meningeal signs. CARDIOVASCULAR: HS audible. RESPIRATORY: Clear to auscultation bilaterally. GASTROINTESTINAL: Abdomen soft nontender. PD cath site ok. MUSCULOSKELETAL: Extremities without clubbing, cyanosis. NEUROLOGICAL: Alert oriented 3. Nonfocal. Psych cooperative IV line sites ok. Assessment and Plan - Plan Sepsis in an Immune compromised host. Disseminated LULU on treatment ? compliance (AIDS defining illness) HIV/AIDS Prior Kayla Esophagitis (AIDS defining illness) CKD ? HIV related. On peritoneal dialysis. ? Pneumonia. Low suspicion for PCP. Non compliance with follow ups and medications. Recs: Discontinue Cefepime IV blood cultures negative. Check CD4, VL Follow AFB blood culture Will dw Nephro about CT chest with IV contrast in view of CKD and timing of contrast as he is on PD. 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 Continue LULU regimen s/p PCP prophylaxis with Pentamidine 04/09/2018. Continue Diflucan for oral thrush prophylaxis. Hold HAART patient reports he last saw HIV provider in Jan 2017. Will contact Health dept and office to find out who is following him for the LULU treatment and HAART therapy. Patient was last instructed and was supposed to follow up with Dr.Reba Paul office per my last note prior to discharge. He did not follow up with per my discussion with him. Follow cultures Follow clinical course.
--- NOTE | 2018-04-09 10:02 | P.PNNP ---
Subjective Interval history: Patient resting comfortably. PD nightly. Reports feeling weak and fatigue. <Karolyn Jolly - Last Filed: 04/09/18 09:53> Physical Exam Vital signs: Vital Signs 04/08/18 12:00 04/08/18 16:00 04/08/18 20:00 Temperature 98.8 F 98.3 F 97.7 F Pulse Rate 80 78 61 Respiratory Rate 18 18 16 Blood Pressure 127/71 110/71 100/52 L Pulse Oximetry 100 100 97 04/09/18 00:00 04/09/18 08:00 04/09/18 09:24 Temperature 98.3 F 99.0 F Pulse Rate 80 82 Respiratory Rate 16 17 Blood Pressure 124/69 125/77 Pulse Oximetry 98 100 100 Intake & Output 04/08/18 04/09/18 04/09/18 18:59 06:59 18:59 Intake Total 100 / 100 200 / 200 Output Total 945 / 945 300 / 300 Balance -845 / -845 -100 / -100 Weight 65.8 kg Intake: IV 100 / 100 Maxipime Inj 1,000 MG In NS Inj 100 / 100 100 ML @ 200 mls/hr IV.SIG Q12H [facility] Rx#:[id number] Oral 200 / 200 Output: Urine 325 / 325 300 / 300 Peritoneal Amount 620 / 620 Other: # Bowel Movements 1 3 Narrative: GENERAL: Alert and oriented. SKIN: Warm and dry. NECK: Supple, trachea midline. No JVD. CARDIOVASCULAR: Regular rate and rhythm without murmurs, gallops, or rubs. RESPIRATORY: Breath sounds equal bilaterally. No accessory muscle use. GASTROINTESTINAL: Abdomen soft, non-tender, nondistended. PD catheter. MUSCULOSKELETAL: No cyanosis, or edema. BACK: Nontender without obvious deformity. No CVA tenderness. <Karolyn Jolly - Last Filed: 04/09/18 09:53> Vital signs: Vital Signs 04/09/18 00:00 04/09/18 08:00 04/09/18 09:24 Temperature 98.3 F 99.0 F Pulse Rate 80 88 Respiratory Rate 16 17 Blood Pressure 124/69 125/77 Pulse Oximetry 98 97 100 04/09/18 12:00 04/09/18 16:00 Temperature 98.6 F 98.4 F Pulse Rate 81 80 Respiratory Rate 17 18 Blood Pressure 116/69 109/80 Pulse Oximetry 100 100 Intake & Output 04/09/18 04/09/18 04/10/18 06:59 18:59 06:59 Intake Total 200 / 200 Output Total 300 / 300 350 / 350 Balance -100 / -100 -350 / -350 Weight 65.8 kg Intake: Oral 200 / 200 Output: Urine 300 / 300 350 / 350 Other: Date of Last Bowel Movement 04/09/18 # Bowel Movements 3 <Leonides Shah - Last Filed: 04/09/18 20:25> Assessment and Plan - Assessment (1) ESRD on peritoneal dialysis Code(s): N18.6 - End stage renal disease; Z99.2 - Dependence on renal dialysis Status: Acute Plan: ESRD on Peritoneal dialysis. Patient is being treated for LULU complex PD with UF of 620 ml Continue Phoslo, Phosphorus level in AM Will continue PD nightly Labs in AM (2) AIDS Code(s): B20 - Human immunodeficiency virus [HIV] disease Status: Acute Plan: ID consulted. (3) Thrush Code(s): B37.0 - Candidal stomatitis Status: Acute Plan: On Diflucan (4) Hypokalemia Code(s): E87.6 - Hypokalemia Status: Acute Plan: Resolved. Labs in AM <Karolyn Jolly - Last Filed: 04/09/18 09:53> - Assessment (1) ESRD on peritoneal dialysis Code(s): N18.6 - End stage renal disease; Z99.2 - Dependence on renal dialysis Status: Acute Plan: Patient seen and examined, agree with above. Patient with ESRD on PD and admitted with fever, Has LULU complex and being treated. Continue PD and follow electrolytes. (2) AIDS Code(s): B20 - Human immunodeficiency virus [HIV] disease Status: Acute (3) Thrush Code(s): B37.0 - Candidal stomatitis Status: Acute (4) Hypokalemia Code(s): E87.6 - Hypokalemia Status: Acute <Leonides Shah - Last Filed: 04/09/18 20:25>
[2018-04-09] MEDS: Calcium Acetate 667 MG Capsule PO SCH ×3 (10:06→18:22)
[2018-04-09] MEDS: Nystatin Liq 500,000 UNIT/5 ML UDC SWISH-SWAL SCH ×3 (10:07→18:22)
[2018-04-09] MEDS: Potassium Bicarbonate 25 MEQ Effervescent Tablet PO SCH (10:07)
[2018-04-09] MEDS: Fluconazole 100 MG Tablet PO SCH (10:08)
[2018-04-09] MEDS: Senna/Docusate Sodium 8.6/50 MG Tablet PO SCH (10:08)
[2018-04-09] MEDS: amLODIPine 10 MG Tablet PO SCH (10:08)
--- NOTE | 2018-04-09 12:58 | P.PNIM ---
Subjective Interval history: Follow-up visit fever/SIRS, disseminated LULU Patient resting in bed. He denies cough, fevers or chills. He reports he sweats occasionally. Tmax 100.6F overnight. Decreased appetite. Physical Exam Vital signs: Vital Signs 04/08/18 16:00 04/08/18 20:00 04/09/18 00:00 Temperature 98.3 F 97.7 F 98.3 F Pulse Rate 78 61 80 Respiratory Rate 18 16 16 Blood Pressure 110/71 100/52 L 124/69 Pulse Oximetry 100 97 98 04/09/18 08:00 04/09/18 09:24 04/09/18 12:00 Temperature 99.0 F 98.6 F Pulse Rate 88 81 Respiratory Rate 17 17 Blood Pressure 125/77 116/69 Pulse Oximetry 97 100 100 Intake & Output 04/08/18 04/09/18 04/09/18 18:59 06:59 18:59 Intake Total 100 / 100 200 / 200 Output Total 945 / 945 300 / 300 Balance -845 / -845 -100 / -100 Weight 65.8 kg Intake: IV 100 / 100 Maxipime Inj 1,000 MG In NS Inj 100 / 100 100 ML @ 200 mls/hr IV.SIG Q12H [facility] Rx#:[id number] Oral 200 / 200 Output: Urine 325 / 325 300 / 300 Peritoneal Amount 620 / 620 Other: Date of Last Bowel Movement 04/09/18 # Bowel Movements 1 3 Narrative: PE: GENERAL: Pleasant middle-aged black male in no acute distress. SKIN: Focused skin assessment warm and dry. HEENT: PERRLA, EOMI. No scleral icterus or conjunctival pallor. No lid lag or facial droop. CARDIOVASCULAR: Regular rate and rhythm. No obvious murmurs to auscultation. No chest tenderness to palpation. RESPIRATORY: No obvious rhonchi or wheezing. Clear to auscultation. Breath sounds equal bilaterally. GASTROINTESTINAL: Abdomen soft, non-tender, nondistended. BS normal. MUSCULOSKELETAL: Extremities without clubbing, cyanosis, or edema. No obvious deformities. NEUROLOGICAL: Awake, alert and oriented x4. No focal neurologic deficits. Moving both upper and lower extremities spontaneously. PSYCHIATRIC: Appropriate mood and affect. Insight and judgment normal. Results Labs CBC & Chem 7: 04/07/18 07:47 04/08/18 07:12 Labs: Microbiology 04/06/18 16:50 Blood - Peripheral Aerobic Blood Culture - Preliminary No growth in 3 days 04/06/18 16:50 Blood - Peripheral Anaerobic Blood Culture - Preliminary No growth in 3 days 04/06/18 16:45 Blood - Peripheral Aerobic Blood Culture - Preliminary No growth in 3 days 04/06/18 16:45 Blood - Peripheral Anaerobic Blood Culture - Preliminary No growth in 3 days 04/06/18 20:44 Blood - Peripheral Mycobacterial Culture - Final Assessment and Plan (1) ESRD on peritoneal dialysis: Code(s): N18.6 - End stage renal disease; Z99.2 - Dependence on renal dialysis Status: Acute (2) AIDS: Code(s): B20 - Human immunodeficiency virus [HIV] disease Status: Acute (3) Thrush: Code(s): B37.0 - Candidal stomatitis Status: Acute (4) Hypokalemia: Code(s): E87.6 - Hypokalemia Status: Acute Plan 52 years old with AIDS: last CD4 6- 02/03/18, non-compliant w/ follow up and antiretrovirals Fever -SIRS: +Immunocompromised likely LULU - ff AFB cultures pending. Blood Cultures - w/ NGTD after 3 days - UA, CXR clear - Dr. Martines- ID ff along with us Disseminated LULU: recent admit 02/02-02/12/18, stool AFB +TB, duodenal biopsies indicative of disseminated LULU -non-compliant w/ meds/follow up, continue Clarithromycin/Rifampin/Ethambutol, check AFB blood cultures as above, -appreciate Dr. Martines ff along with us -advised on compliance with HIV meds and ff up with Dr. Paul as OP Oral/tongue Thrush: no dysphagia/odynophagia -continue on diflucan -on Nystatin 5 cc 4x a day History of duodenitis -Continue Protonix. ESRD on PD: no significant fluid overload state at this time -PD fluid clear -Nephrology ff Hypokalemia- corrected Dietitian consult MDM: self Code: Full GI ppx: not indicated DVT Prophylaxis: SCD/Teds- up and ambulate Dispo: Social work for d/c planning as needed. Discussed with: patient, RN
--- NOTE | 2018-04-09 15:32 | P.PNID ---
Subjective Remarks: is a 52-year-old -[place] past medical history significant for HIV diagnosed when he was 23 years old. Patient has reported that he used to see RADHA Leslie at Dr. Paul office for his HIV care. He reports that the last time he saw her was approximately 2 years back. When asked patient did not know his most recent CD4 count or viral load. He did not know his current HIV medication regimen. When questioned who was prescribing his HIV medication he replied that it may have been either Dr. Paul office or 's office. The last known CD4 count for the patient is less than 20 in Jan 2018 with high viral load. He was also diagnosed with disseminated LULU during that admission. He is also on Peritoneal dialysis and follows with for the same. Upon questioning he did not know his meds, his last CD4, VL or any of his medical problems like LULU and Oral thrush or esophagitis.At baseline patient is able to wake up in the morning drive his car and go to get some breakfast as well as lunch and stay at the mall for several hours. He thinks he may be depressed because after getting home he pretty much stays in his apartment all day. He reports that he has a partner who lives in [place] but they are not sexually active for the last 6 months. With this background patient presents to the emergency department at [facility] with complaints of generalized weakness, shortness of breath and fevers. His auricular acupuncturist asked him to come to hospital per patient. He undergoes peritoneal dialysis every night and denies any abdominal pain or discharge from the PD catheter site. On arrival to the emergency department he had fevers, tachycardia. Sepsis workup was initiated. CXR is normal and at present patient denies any Shortness of breath or Chest pain or cough with expectoration. His shortness of breath was acute onset 1 or 2 day prior to admission. Infectious diseases consulted for evaluation and management of possible sepsis, HIV/AIDS. Overnight events reviewed no fevers no rash No diarrhea Dw patient he reports he did not follow up with ID for HIV and LULU care. He is not compliant with follow ups and medications. Antibiotics: Cefepime IV LULU regimen: Clarithro, Ethambutol, Rifampin Pentamidine inhalation on 04/09/2018 Lines: Lines ok Past Medical History: reviewed Allergies/Adverse Reactions: Allergies No Known Allergies Allergy (Verified 02/02/18 13:58) Objective Vital Signs 04/08/18 16:00 04/08/18 20:00 04/09/18 00:00 Temperature 98.3 F 97.7 F 98.3 F Pulse Rate 78 61 80 Respiratory Rate 18 16 16 Blood Pressure 110/71 100/52 L 124/69 Pulse Oximetry 100 97 98 04/09/18 08:00 04/09/18 09:24 04/09/18 12:00 Temperature 99.0 F 98.6 F Pulse Rate 88 81 Respiratory Rate 17 17 Blood Pressure 125/77 116/69 Pulse Oximetry 97 100 100 Intake & Output 04/08/18 04/09/18 04/09/18 18:59 06:59 18:59 Intake Total 100 / 100 200 / 200 Output Total 945 / 945 300 / 300 Balance -845 / -845 -100 / -100 Weight 65.8 kg Intake: IV 100 / 100 Maxipime Inj 1,000 MG In NS Inj 100 / 100 100 ML @ 200 mls/hr IV.SIG Q12H [facility] Rx#:[id number] Oral 200 / 200 Output: Urine 325 / 325 300 / 300 Peritoneal Amount 620 / 620 Other: Date of Last Bowel Movement 04/09/18 # Bowel Movements 1 3 04/06/18 16:50 Blood - Peripheral Aerobic Blood Culture - Preliminary No growth in 3 days 04/06/18 16:50 Blood - Peripheral Anaerobic Blood Culture - Preliminary No growth in 3 days 04/06/18 16:45 Blood - Peripheral Aerobic Blood Culture - Preliminary No growth in 3 days 04/06/18 16:45 Blood - Peripheral Anaerobic Blood Culture - Preliminary No growth in 3 days 04/06/18 20:44 Blood - Peripheral Mycobacterial Culture - Final 04/06/18 17:28 Nasal Wash Influenza Types A,B Antigen - Final Negative for FLU A and B antigen Infection due to influenza A or B cannot be ruled out since the antigen present in the sample may be below the detection limit of the test. Lab - Chemistry Results 04/08/18 07:12 Sodium 135 L Potassium 3.5 Chloride 99 Carbon Dioxide 28.1 Anion Gap 8 BUN 31 H Creatinine 8.36 H Estimated GFR 8 L Random Glucose 83 Calcium 7.5 L Imaging: ITS Impressions Chest X-Ray 04/06/18 16:33 CONCLUSION: Mid inspiratory study with crowding of the lung vasculature. Physical Exam: GENERAL: Thin built poorly nourished, not in acute distress SKIN: Cool and dry, no generalized rash HEAD: Atraumatic. Normocephalic. No temporal or scalp tenderness. EYES: Pupils equal round and reactive. Scleral icterus. No injection or drainage. No petechia ENT: Nothing abnormal detected. Foul smelling mouth. No thrush NECK: Trachea midline. Supple, nontender, no meningeal signs. CARDIOVASCULAR: HS audible. RESPIRATORY: Clear to auscultation bilaterally. GASTROINTESTINAL: Abdomen soft nontender. PD cath site ok. MUSCULOSKELETAL: Extremities without clubbing, cyanosis. NEUROLOGICAL: Alert oriented 3. Nonfocal. Psych cooperative IV line sites ok. Assessment and Plan - Plan Sepsis in an Immune compromised host. Disseminated LULU on treatment ? compliance (AIDS defining illness) HIV/AIDS Prior Kayla Esophagitis (AIDS defining illness) CKD ? HIV related. On peritoneal dialysis. ? Pneumonia. Low suspicion for PCP. Non compliance with follow ups and medications. Recs: Continue LULU regimen on discharge. s/p PCP prophylaxis with Pentamidine 04/09/2018. Continue Diflucan for oral thrush prophylaxis. jarrett Mccallum office patient last seen July 2017. Patient reports last script filled by office. Concern patient is non compliant. Follow cultures Follow clinical course. jarrett Cuevaos ok to discharge from ID standpoint. Will sign off please call back if any change in clinical condition.
--- NOTE | 2018-04-09 15:35 | P.DS ---
DS: Providers Date of admission: 04/06/18 19:48 Primary care physician: No Primary Care Physician Consults: 04/06/18 19:41 Consult to Infectious Diseases Routine Consulting Provider: Mehnaz Martines Preferred House Coordinator:: Alda Shahnaz SampsonHumberto Patient known to:: Alda Paul Reason for Consultation: HIV/AIDS, recent LULU, now w/ fever CONSULT FOR AM Notified:: Service Spoke with:: Braydon Date Notified:: 04/06/18 Time Notified:: 20:11 Ordering Provider: COCO Consult to Nephrology Routine Consulting Provider: Chad Vela Does the patient have a Obstetrics Gyn who follows them?: Yes Preferred Nephrology House Coordinator:: Jonathan Shah Reason for Consultation: ESRD on PD, to resume dialysis CONSULT FOR AM Notified:: Service Spoke with:: Braydon Date Notified:: 04/06/18 Time Notified:: 20:09 Ordering Provider: COCO Anticipated date of discharge: 04/09/18 Brief History from admission: This is a 52-year-old male with a PMH of HTN, AIDS (CD4 <20 02/03/18), ESRD on PD, h/o Disseminated LULU and Thrush who presented to the ER w/ c/o SOB. Pt is poor historian regarding details, notes SOB for "a few days" w/ associated fever. No cough, chest pain or sick contacts. Recent admit 02/02-02/12/18 for diarrhea/abdominal pain, s/p EGD/ Colonoscopy w/ gastritis, duodenitis and hemorrhoids, stool +TB, likely Disseminated LULU, s/p eval by ID and started on Clarithromycin/Ethambutol/ Rifampin w/ plans for outpatient follow up w/ ID in 1wk post-discharge, however pt has not followed up and cannot tell me if he's been taking his discharge medications, suspect non-compliance. On arrival, BP 124/78, HR 103, O2 sat 100 % on RA, Temp 100.5. WBC 4.2. Chemistry at baseline. Lactic Acid 0.7. Troponin 0 0.08. UA negative. CXR with crowding of lung vasculature, no specific infiltrate. S/p Rocephin/Zithro and Bactrim in ER. DS: Diagnosis Discharge Diagnosis (1) ESRD on peritoneal dialysis: Status: Acute (2) AIDS: Status: Acute (3) Thrush: Status: Acute (4) Hypokalemia: Status: Acute DS: Summary Patient was admitted to the medical telemetry floor. Nephrology was consulted for assistance with resuming patients peritoneal dialysis. Infectious Disease was consulted for assistance with evaluation of sepsis and treatment of HIV/ AIDS. Patient was seen in consultation by Dr Martines. Patient was not able to name his current HIV medications, viral load or CD4 count and stated that his last follow up with his Infectious Disease specialist was 2 years ago. Patient' s last known CD4 count was 20 in January 2018. Patient is undergoing peritoneal dialysis nightly and no drainage, discharge or infection was noted around his access site. Patient was noted to be tachycardic and had a fever on arrival. CXR showed no acute process. Sepsis protocol was initiated. Patient was started on Cefepime. Patient also has a history of disseminated LULU and prior lori esophagitis. ID noted low suspicion for PCP. It was also noted that patient is noncompliant with his medications as well as follow up. Patient was started on therapy for LULU and oral thrush. HAART therapy was not initiated as the last time patient saw his ID provider was in January of 2017. Once patient remained afebrile he was deemed stable for discharge from an ID standpoint with continued outpatient follow up. Patient received prescriptions for all newly initiated medications including LULU regimen of Clarithro, Ethambutol and Rifampin. He was advised to follow up with Dr Paul on Apr 24 at 3 pm for continued evaluation and management of his conditions and for initiation of HAART therapy. Patient verbalized understanding and agreed to keep all appointments. Patient was also deemed stable for discharge from a Nephrology standpoint with continued outpatient follow up. Time Spent with Patient Total time spent providing and/or coordinating discharge services: Greater than 30 minutes Status at Discharge Functional status at discharge: independent ambulation Overall status at discharge: patient is back to baseline Exam Narrative Exam Narrative: GENERAL: thin built, AAOx3, no acute distress SKIN: Warm and dry. HEAD: Normocephalic, atraumatic EYES: No scleral icterus. No injection or drainage. NECK: Supple, trachea midline. No JVD or lymphadenopathy. CARDIOVASCULAR: Regular rate and rhythm without murmurs, gallops, or rubs. RESPIRATORY: Breath sounds equal bilaterally. No accessory muscle use. GASTROINTESTINAL: Abdomen soft, non-tender, nondistended. PD cath site clean, dry and intact. MUSCULOSKELETAL: No cyanosis, or edema. BACK: Nontender without obvious deformity. No CVA tenderness. Results Labs on day of discharge: Preliminary micro results at discharge 04/06/18 16:50 Aerobic Blood Culture - Preliminary Blood - Peripheral No growth in 3 days Anaerobic Blood Culture - Preliminary No growth in 3 days 04/06/18 16:45 Aerobic Blood Culture - Preliminary Blood - Peripheral No growth in 3 days Anaerobic Blood Culture - Preliminary No growth in 3 days Impressions ITS Impressions Chest X-Ray 04/06/18 16:33 CONCLUSION: Mid inspiratory study with crowding of the lung vasculature. Discharge Plan Discharge Disposition Patient Disposition: Discharge Home Discharge Condition Condition: Stable Discharge Order Discharge Orders: Discharge Order (Routine); Ordered 04/09/18 Ordered By: Ivania Lion Discharge Details Anticipated Discharge Date: 04/09/18 Physicians Team ED Provider: Denzel King ED Midlevel Provider: Magdalena Sun Primary Care Provider: Primary Care Jazmine Garnett Attending Provider: Minda Scherer Other Providers: Mehnaz Martines ; Chad Vela Rxs /Orders / Referrals /Forms Prescriptions: New clarithromycin 500 mg Tablet 500 mg PO Q12HR Qty: 60 RF: 0 ethambutol [Myambutol] 400 mg Tablet 1,200 mg PO Q48H Qty: 45 RF: 0 fluconazole 100 mg Tablet 100 mg PO DAILY Qty: 30 RF: 0 nystatin 100,000 unit/mL Suspension 5 ml SWISH-SWAL QID Qty: 200 RF: 0 rifampin 150 mg Capsule 300 mg PO Q12HR Qty: 60 RF: 0 amlodipine [Norvasc] 10 mg Tablet 10 mg PO DAILY Qty: 30 RF: 0 Continue calcium acetate 667 mg Capsule 667 mg PO TID RF: 0 amlodipine 10 mg Tablet 10 mg PO DAILY Qty: 30 RF: 0 lisinopril 5 mg Tablet 5 mg PO DAILY Qty: 30 RF: 0 Discontinued azithromycin [Zithromax Z-Alexis] 250 mg Tablet PO DIRECTED RF: 0 abacavir 300 mg Tablet 300 mg PO DAILY RF: 0 darunavir ethanolate [Prezista] 800 mg Tablet 800 mg PO DAILY RF: 0 dolutegravir [Tivicay] 50 mg Tablet 50 mg PO DAILY RF: 0 ethambutol [Myambutol] 400 mg tablet 800 mg PO DAILY RF: 0 Referrals: Family Practice Physician [Outside] - See Instructions (Please follow up with a provider of your choice in 1 week. ) Primary Care Jazmine Garnett [Primary Care Provider] - See Instructions Alda Paul MD [Physician] - See Instructions (Please follow up April 24 at 3 pm) Discharge Instructions Patient Printed Instructions: Nystatin (By mouth), Rifampin (By mouth), Clarithromycin (By mouth), Ethambutol (By mouth), Fluconazole (By mouth), Amlodipine (By mouth), Sepsis (GEN), Colonoscopy (GEN), Upper Endoscopy (GEN) Additional Instructions: Your Health Problems: Goals to Promote Your Health: * To prevent worsening of your condition * To maintain your health at the optimal level Directions to Meet Your Goals: * Take your medications as prescribed * Follow your dietary instruction * Follow activity as directed * Keep your appointments as scheduled * Take your immunizations and boosters as scheduled * If your symptoms worsen call your PCP * If no PCP go to Urgent Care or Emergency Room Smoking is dangerous to your health. Avoid second hand smoke. You may reach the 24-hour crisis hotline for domestic abuse at . Status ED Status: Left Department Discharge Information Discharge Date/Time: 04/09/18 19:44
== END 2018-04-09 19:44 | disposition home or self-care (01) | DRG 974 ==
LOC: NEDA 14:26 → NEPC 14:26 → N07 21:17
PROVIDERS: ADMIT Internal Medicine; ATTEND Internal Medicine
DX: N18.6 End stage renal disease; J18.9 Pneumonia, unspecified organism; Z79.899 Other long term (current) drug therapy; Z91.14 Patient's other noncompliance with medication regimen; Z99.2 Dependence on renal dialysis; I12.0 Hypertensive chronic kidney disease with stage 5 chronic kidney disease or end stage renal disease; Z91.19 Patient's noncompliance with other medical treatment and regimen; N29 Other disorders of kidney and ureter in diseases classified elsewhere; B20 Human immunodeficiency virus [HIV] disease; B37.0 Candidal stomatitis; E87.6 Hypokalemia; A41.9 Sepsis, unspecified organism
CPT/HCPCS: 71010; 71045; 80048; 80053; 81001; 83520; 83605; 83880; 84484; 85025; 85610; 85730; 87015; 87040; 87116; 87275; 87276; 87804; 90765; 90935; 93005; 94642; 94664; 96365; 99285; J0131; J0456; J0692; J0696; J2405; J2545; J7050